=== PATIENT | female | born 1945 | race Caucasian/White ===

== ENCOUNTER 2017-08-18 16:06 | Observation (INO) | payer MEDICARE, OTHER, SELFPAY ==
[2017-08-18] VITALS (14 sets, daily range): BP systolic 132–187; BP diastolic 86–117; PULSE 72–117; RESP 16–22; TEMP 36.8–36.9; O2SAT 93–96; BMI 40.8; BMI 40.2
--- NOTE | 2017-08-18 16:16 | EKG12_ITS ---
Test Reason : PALPS Blood Pressure : / mmHG Vent. Rate : 118 BPM Atrial Rate : 131 BPM P-R Int : 000 ms QRS Dur : 076 ms QT Int : 346 ms P-R-T Axes : 000 -44 001 degrees QTc Int : 484 ms Atrial fibrillation Left axis deviation Abnormal ECG Confirmed by JACK SINHA, CLARITZA ([id number]), medical transcription editor PATRICIA THAPA ([id number]) on 08/22/2017 2:50:50 PM Referred By: DESMOND Confirmed By:CLARITZA SANTIAGO MD
--- NOTE | 2017-08-18 16:18 | RAD_ITS ---
STUDY: X-RAY CHEST REASON FOR EXAM: Female, 72 years old. Palpitations TECHNIQUE: Single frontal view of the chest. COMPARISON: December 31, 2011 FINDINGS: The lungs are clear and expanded. There is no demonstrated pleural abnormality. Normal size heart. Normal mediastinum and maye. Normal visualized pulmonary arteries. Normal visualized aortic arch and descending thoracic aorta. Normal visualized thoracic spine. Normal visualized ribs, clavicles, and shoulders. There is no demonstrated abnormality of the visualized soft tissue structures of the upper abdomen. RAD/Chest 1 View (Portable) IMPRESSION: Normal x-ray examination of the chest. Electronically Signed: Jaleel Duval MD at 17:30 EDT , Service support ,
--- NOTE | 2017-08-18 16:29 | ED.DCSUM_ITS ---
- ER Visit Summary Date of Service: 08/18/17 Chief Complaint: Sent from Dr. Duran's office for rapid irregular heartbeat, new onset A. fib History of Present Illness: The patient is a 72 F who is a poor informant. She is minimizing her symptoms presently and her responses are different than what Dr. Duran documented on his H&P that accompanied her. She does admit to palpitations. She states this started yesterday. He states is been intermittent for some time. 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 He also has history of hypertension. She denies history of diabetes even though her A1c is slightly elevated. She states she refused to take pills. She states she has seen Dr. Romero in the past. Last time she saw him was 2003 when she had a stress test. She did not follow-up with him because she was not told specifically that he wanted her to follow-up with him. His pedal edema unless she wears tight socks. She denies orthopnea or PND. She denies fever, chills night sweats. She denies leg pain, swelling discoloration. She has no history of PE or DVT. She denies hematemesis, melena hematochezia. She denies any ocular, visual or auditory symptoms. She denies chest pain, tightness or heaviness. She denies any discomfort in her neck, jaw or extremities. She denies any back discomfort. Please read written note for complete detail Physical Examination: Blood pressure is 187/111. Heart rate is 117. Head is atraumatic normocephalic. Pupils are equal round reactive. Extraocular muscles are intact. TMs are pearly white with landmarks noted. Nares patent with no drainage. Posterior pharynx without erythema or exudate. Uvula is midline. There is no dysphonia or dysphasia. Trachea is midline. There is no stridor with auscultation of the neck. Heart is irregularly irregular and rapid. Lungs reveal no wheezes rales rhonchi. Abdomen is soft flabby nontender. There is no palpable semester down bruit. There is 1+ edema the lower extremity. DP PT pulses palpable. Neuro exam is nonfocal. Test Results: EEG reveals atrial fibrillation with a left axis. Rate is 118. Portable chest x-ray is limited secondary to limited inspiratory volume. There is no obvious infiltrate or evidence of CHF. Cardiac silhouette is normal and there is no evidence of cardiomegaly. CBC is unremarkable. TSH is normal. Troponin is less than 0.015. Electro panels unremarkable. Emergency Department Course and Treatment: Patient was placed on a monitor. IV was established. Will receive 1 mg/kg of Lovenox and patient was administered 10 mg of Cardizem IV push and placed on a Cardizem drip. EKG, chest x-ray and appropriate blood work was ordered including TSH. Before he was notified the patient was here and plan was to treat with Cardizem and that she would be admitted with a consult to him. Treatment Plan: Case was discussed with Dr. Romero. Patient's been informed of her results. She has been informed that she will require admission for further testing. At the present time she is agreeable to stay. Disposition: PCU Impression: 1. A. fib with RVR new onset/diagnosis 2. Accelerated hypertension in patient with hypertension 3. History rheumatic fever/heart disease This note was generated with [employer] dictation software. It may contain incorrect words, spelling, and punctuation that were not noted in review of the chart prior to signing ED Disposition - Plan for ED Patient: Chief Complaint: Palpitations Referrals: Chip Santos [Primary Care Provider] -
[2017-08-18] MEDS: dilTIAZem 25 MG/5 ML Vial 10 MG IV BOLUS (16:33)
[2017-08-18 16:53] LABS: Hematocrit 46.1 % (37-47); Hemoglobin 14.9 g/dl (12.0-15.0); Mean Corp Hgb Conc 32.3 g/gl (32-36); Mean Corpuscular Hgb 30.5 pg (27.0-32.0); Mean Corpuscular Volume 94.3 fL (81-99); Mean Platelet Vol. 9.9 fl (6.2-12.0); Platelet Count 264 K/mm3 (150-450); RBC Distribution Width CV 13.2 % (11.6-14.6); RBC Distribution Width SD 45.5 fl (35.1-43.9); Red Blood Count 4.89 M/mm3 (4.2-5.4); White Blood Count 5.8 K/mm3 (4.4-11.0)
[2017-08-18] MEDS: Enoxaparin 100 MG/ML Syringe SC (16:55)
[2017-08-18 16:56] LABS: Scan Indicated on CBC? Y/N NO
[2017-08-18 17:13] LABS: Anion Gap 7 (5-15); BUN 9 mg/dL (7-18); Calcium,Total 8.6 mg/dL (8.5-10.1); Chloride 109 mmol/L (98-107); Creatinine, Serum 0.82 mg/dL (0.55-1.02); EST Glomerular Filtration Rate 73 mL/min (>60); Est Glom Filt Rate - Afr Amer 88 mL/min (>60); Estimated Creatinine Clearance 48.33 ml/min; Glucose 137 mg/dL (74-106); Potassium 4.3 mmol/L (3.5-5.1); Sodium Level 144 mmol/L (136-145); Thyroid Stim Hormone (TSH) 2.32 uIU/mL (0.358-3.74)
--- NOTE | 2017-08-18 18:14 | PCM.HP.STD ---
<Blossom Roldan - Last Filed: 08/18/17 18:26> Problem List (1) Atrial fibrillation Status: Acute (2) Hypertension Status: Chronic History of Present Illness Date of Admission: 08/18/17 Chief Complaint: palpitations The patient is a 72 year old F who who presents to the emergency room from primary care physician office due to increased heart rate and atrial fibrillation. Patient states she was sitting in her chair at home last evening when she noticed her heart pounding which lasted less than 15 minutes. She stated at that time her fitbit showed her heart rate ranging from 80-115. Patient states she has had palpitations in the past which have lasted on a short time. She has never sought medical attention for this before. She denies shortness of breath, chest pain, dizziness. States she feels well. 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 She states she did have a stress test in approximately [address] Romero for high blood pressure. No other cardiac history. She does note a history of rheumatic fever. She denies previous echocardiogram. Her other past medical history is significant for hypertension. She denies other chronic medical history. She states her recent hemoglobin A1c was 6.1% and is watching her diet. She states she has not a pill person and does not wish to be on many medications. Past Medical History Past Medical History (Chronic Problems): Chronic Problems Hypertension (Chronic) Allergies azithromycin Allergy (Verified 08/18/17 16:08) Angioedema Home Medications: Ambulatory Orders Medication Instructions Recorded Atenolol [Tenormin] 50 mg PO DAILY 08/18/17 Cholecalciferol (Vitamin D3) 5,000 unit PO DAILY 08/18/17 [Vitamin D3] Multivitamins,Therapeutic 1 tablet PO DAILY 08/18/17 [Multivitamin] [place]-3 Fatty Acids/Fish Oil [Fish 1 each PO DAILY 08/18/17 Oil 1,000 mg Capsule] Surgical History: appendectomy, hysterectomy, tonsillectomy Psychiatric History: No pertinent psych hx Lives: Alone Smoking Status: Never smoker Alcohol: None Drugs: None - *Family History Maternal History Items: Cancer - Breast Paternal History Items: Diabetes, Heart Disease Review of Systems Constitutional: Denies: Chills, Fever, Weight Change HEENT: Denies: Head Aches, Sinus Congestion, Sinus Drainage Cardiovascular: Reports: Palpitations. Denies: Chest Pain, Chest Tightness, Edema, Light Headedness, Syncope Respiratory: Denies: Cough, Shortness of breath at rest, Sputum production Gastrointestinal: Denies: Abdominal Pain, Nausea, Vomiting Genitourinary: Denies: Dysuria Musculoskeletal: Denies: Joint Pain, Joint Tenderness Skin: Denies: Rash, Wounds Neurological: Denies: Numbness, Tingling, Focal weakness Psychiatric: Denies: Anxiety, Depression, Homicidal Ideations, Suicidal Ideations Hematologic/ Lymphatic: Denies: Easy Bruising, Easy Bleeding VTE Information - Inpt Only VTE Present on Admission: No VTE Mechan Device Prophylaxis: Knee High BABS Hose VTE Pharm Prophylaxis ordered?: Yes Patient Problems: Active and Suspected Problems Atrial fibrillation (Acute) - Physical Exam General: Alert, Oriented x3, Cooperative, No apparent distress HEENT: Atraumatic, PERRLA, EOMI, Normocephalic Neck: Supple, No JVD, Negative Carotid Bruits Lungs: Clear to auscultation, Normal air movement Cardiovascular: - - Atrial fibrillation, rate controlled. Abdomen: Bowel Sounds Present, Soft, Non Tender, Non-Distended, Obese Extremities: No clubbing, No cyanosis, No edema, Capillary Refill Less than 3 Seconds Skin: No rashes, No breakdown Musculoskeletal: No Tenderness to Palpation of Joints or Extremities Neurological: Cranial nerves II-XII grossly intact, Neuro grossly intact Psych/Mental Status: Normal Affect, Appropriate Vital Signs Temp Pulse Resp BP Pulse Ox 98.4 F 85 22 H 156/117 H 93 08/18/17 16:07 08/18/17 18:02 08/18/17 18:02 08/18/17 18:02 08/18/17 18:02 Weight: 101.151 kg Body Mass Index (BMI) 40.8 Laboratory Tests Past 24 Hrs 08/18/17 08/18/17 16:35 16:35 WBC 5.8 RBC 4.89 Hgb 14.9 Hct 46.1 MCV 94.3 MCH 30.5 MCHC 32.3 RDW 13.2 RDW Differential 45.5 H Plt Count 264 MPV 9.9 Sodium 144 Potassium 4.3 Chloride 109 H Carbon Dioxide 28.0 Anion Gap 7 BUN 9 Creatinine 0.82 Estim Creat Clear Calc 48.33 Est GFR (MDRD) Af Amer 88 Est GFR (MDRD) Non-Af 73 BUN/Creatinine Ratio 11.0 Glucose 137 H Calcium 8.6 Troponin I < 0.015 TSH 2.32 Assessment/Plan Active and Suspected Problems Atrial fibrillation (Acute) 1. New onset atrial fibrillation-confirmed by EKG on admission. Rate controlled on Cardizem drip. Lovenox initiated in the ED. TSH within normal limits. Check magnesium. Obtain echocardiogram. Serial cardiac enzymes. Consult cardiology. Patient had previous stress test with Dr. Romero in 2003. 2. Hypertension-elevated on admission. Continue home atenolol regimen. Cardizem drip as noted above. As needed hydralazine. 3. History of rheumatic fever 4. Obesity-encouraged diet and lifestyle modifications. DVT [id number] Lovenox subcu This patient was seen by KERRY Lee under the supervision of Dr. Miranda. <Pramod Miranda - Last Filed: 08/18/17 19:09> Problem List (1) Atrial fibrillation Status: Acute (2) Hypertension Status: Chronic History of Present Illness The patient is a 72 year old F presents with intermittent palpitations but was concerned in this time to present to the emergency room. Patient was found to be in atrial fibrillation with RVR. Patient received a Cardizem bolus and then drip. Patient's heart rate has been in the 90s. Patient is never sought attention for these events directly and has never been diagnosed with atrial fibrillation in the past. [] Past Medical History Allergies azithromycin Allergy (Verified 08/18/17 16:08) Angioedema Surgical History: appendectomy, hysterectomy, tonsillectomy Psychiatric History: No pertinent psych hx Lives: Alone Smoking Status: Never smoker Alcohol: None Drugs: None - *Family History Maternal History Items: Cancer Paternal History Items: Diabetes, Heart Disease Review of Systems Constitutional: Denies: Chills, Fever, Weight Change HEENT: Denies: Head Aches, Sinus Congestion, Sinus Drainage Cardiovascular: Reports: Palpitations. Denies: Chest Pain, Chest Tightness, Edema, Light Headedness, Syncope Respiratory: Denies: Cough, Shortness of breath at rest, Sputum production Gastrointestinal: Denies: Abdominal Pain, Nausea, Vomiting Genitourinary: Denies: Dysuria Musculoskeletal: Denies: Joint Pain, Joint Tenderness Skin: Denies: Rash, Wounds Neurological: Denies: Focal weakness, Numbness, Tingling Psychiatric: Denies: Anxiety, Depression, Homicidal Ideations, Suicidal Ideations Hematologic/ Lymphatic: Denies: Easy Bruising, Easy Bleeding VTE Information - Inpt Only VTE Present on Admission: No VTE Mechan Device Prophylaxis: Knee High BABS Hose VTE Pharm Prophylaxis ordered?: Yes - Physical Exam General: Alert, Cooperative, No apparent distress HEENT: Atraumatic, Normocephalic Neck: Supple, Negative Carotid Bruits Lungs: Clear to auscultation, Normal air movement Abdomen: Bowel Sounds Present, Soft, Non Tender, Non-Distended, Obese Extremities: No clubbing, No cyanosis, No edema, Capillary Refill Less than 3 Seconds Skin: No rashes, No breakdown Musculoskeletal: No Tenderness to Palpation of Joints or Extremities Neurological: Cranial nerves II-XII grossly intact, Neuro grossly intact Psych/Mental Status: Normal Affect, Appropriate Vital Signs Temp Pulse Resp BP Pulse Ox 36.9 C 85 22 H 156/117 H 93 08/18/17 16:07 08/18/17 18:02 08/18/17 18:02 08/18/17 18:02 08/18/17 18:02 Weight: 101.151 kg Body Mass Index (BMI) 40.8 Laboratory Tests Past 24 Hrs 08/18/17 08/18/17 16:35 16:35 WBC 5.8 RBC 4.89 Hgb 14.9 Hct 46.1 MCV 94.3 MCH 30.5 MCHC 32.3 RDW 13.2 RDW Differential 45.5 H Plt Count 264 MPV 9.9 Sodium 144 Potassium 4.3 Chloride 109 H Carbon Dioxide 28.0 Anion Gap 7 BUN 9 Creatinine 0.82 Estim Creat Clear Calc 48.33 Est GFR (MDRD) Af Amer 88 Est GFR (MDRD) Non-Af 73 BUN/Creatinine Ratio 11.0 Glucose 137 H Calcium 8.6 Troponin I < 0.015 TSH 2.32 Assessment/Plan Patient seen and examined independently. Agree with the above notes by the nurse practitioner 1. New onset atrial fibrillation Likely this is new onset but I do not feel that it is actually new for her. Patient's had similar symptoms in the past but never sought evaluation for the past. [id number] score is 3 Patient be on Lovenox for now but based on echocardiogram results to be the novel anticoagulants versus Coumadin. Continue with Cardizem drip for now Cardiology be on consultation to help with management of her atrial fibrillation. Code Visit OBSV E&M: [id number] Initial observation care L3
--- NOTE | 2017-08-18 18:25 | HP.PCM_ITS ---
<Blossom Roldan - Last Filed: 08/18/17 18:26> Problem List (1) Atrial fibrillation Status: Acute (2) Hypertension Status: Chronic History of Present Illness Date of Admission: 08/18/17 Chief Complaint: palpitations The patient is a 72 year old F who who presents to the emergency room from primary care physician office due to increased heart rate and atrial fibrillation. Patient states she was sitting in her chair at home last evening when she noticed her heart pounding which lasted less than 15 minutes. She stated at that time her fitbit showed her heart rate ranging from 80-115. Patient states she has had palpitations in the past which have lasted on a short time. She has never sought medical attention for this before. She denies shortness of breath, chest pain, dizziness. States she feels well. 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 She states she did have a stress test in approximately [address] Romero for high blood pressure. No other cardiac history. She does note a history of rheumatic fever. She denies previous echocardiogram. Her other past medical history is significant for hypertension. She denies other chronic medical history. She states her recent hemoglobin A1c was 6.1% and is watching her diet. She states she has not a pill person and does not wish to be on many medications. Past Medical History Past Medical History (Chronic Problems): Chronic Problems Hypertension (Chronic) Allergies azithromycin Allergy (Verified 08/18/17 16:08) Angioedema Home Medications: Ambulatory Orders Medication Instructions Recorded Atenolol [Tenormin] 50 mg PO DAILY 08/18/17 Cholecalciferol (Vitamin D3) 5,000 unit PO DAILY 08/18/17 [Vitamin D3] Multivitamins,Therapeutic 1 tablet PO DAILY 08/18/17 [Multivitamin] [place]-3 Fatty Acids/Fish Oil [Fish 1 each PO DAILY 08/18/17 Oil 1,000 mg Capsule] Surgical History: appendectomy, hysterectomy, tonsillectomy Psychiatric History: No pertinent psych hx Lives: Alone Smoking Status: Never smoker Alcohol: None Drugs: None - *Family History Maternal History Items: Cancer - Breast Paternal History Items: Diabetes, Heart Disease Review of Systems Constitutional: Denies: Chills, Fever, Weight Change HEENT: Denies: Head Aches, Sinus Congestion, Sinus Drainage Cardiovascular: Reports: Palpitations. Denies: Chest Pain, Chest Tightness, Edema, Light Headedness, Syncope Respiratory: Denies: Cough, Shortness of breath at rest, Sputum production Gastrointestinal: Denies: Abdominal Pain, Nausea, Vomiting Genitourinary: Denies: Dysuria Musculoskeletal: Denies: Joint Pain, Joint Tenderness Skin: Denies: Rash, Wounds Neurological: Denies: Numbness, Tingling, Focal weakness Psychiatric: Denies: Anxiety, Depression, Homicidal Ideations, Suicidal Ideations Hematologic/ Lymphatic: Denies: Easy Bruising, Easy Bleeding VTE Information - Inpt Only VTE Present on Admission: No VTE Mechan Device Prophylaxis: Knee High BABS Hose VTE Pharm Prophylaxis ordered?: Yes Patient Problems: Active and Suspected Problems Atrial fibrillation (Acute) - Physical Exam General: Alert, Oriented x3, Cooperative, No apparent distress HEENT: Atraumatic, PERRLA, EOMI, Normocephalic Neck: Supple, No JVD, Negative Carotid Bruits Lungs: Clear to auscultation, Normal air movement Cardiovascular: - - Atrial fibrillation, rate controlled. Abdomen: Bowel Sounds Present, Soft, Non Tender, Non-Distended, Obese Extremities: No clubbing, No cyanosis, No edema, Capillary Refill Less than 3 Seconds Skin: No rashes, No breakdown Musculoskeletal: No Tenderness to Palpation of Joints or Extremities Neurological: Cranial nerves II-XII grossly intact, Neuro grossly intact Psych/Mental Status: Normal Affect, Appropriate Vital Signs Temp Pulse Resp BP Pulse Ox 98.4 F 85 22 H 156/117 H 93 08/18/17 16:07 08/18/17 18:02 08/18/17 18:02 08/18/17 18:02 08/18/17 18:02 Weight: 101.151 kg Body Mass Index (BMI) 40.8 Laboratory Tests Past 24 Hrs 08/18/17 08/18/17 16:35 16:35 WBC 5.8 RBC 4.89 Hgb 14.9 Hct 46.1 MCV 94.3 MCH 30.5 MCHC 32.3 RDW 13.2 RDW Differential 45.5 H Plt Count 264 MPV 9.9 Sodium 144 Potassium 4.3 Chloride 109 H Carbon Dioxide 28.0 Anion Gap 7 BUN 9 Creatinine 0.82 Estim Creat Clear Calc 48.33 Est GFR (MDRD) Af Amer 88 Est GFR (MDRD) Non-Af 73 BUN/Creatinine Ratio 11.0 Glucose 137 H Calcium 8.6 Troponin I < 0.015 TSH 2.32 Assessment/Plan Active and Suspected Problems Atrial fibrillation (Acute) 1. New onset atrial fibrillation-confirmed by EKG on admission. Rate controlled on Cardizem drip. Lovenox initiated in the ED. TSH within normal limits. Check magnesium. Obtain echocardiogram. Serial cardiac enzymes. Consult cardiology. Patient had previous stress test with Dr. Romero in 2003. 2. Hypertension-elevated on admission. Continue home atenolol regimen. Cardizem drip as noted above. As needed hydralazine. 3. History of rheumatic fever 4. Obesity-encouraged diet and lifestyle modifications. DVT [id number] Lovenox subcu This patient was seen by KERRY Lee under the supervision of Dr. Miranda. <Pramod Miranda - Last Filed: 08/18/17 19:09> Problem List (1) Atrial fibrillation Status: Acute (2) Hypertension Status: Chronic History of Present Illness The patient is a 72 year old F presents with intermittent palpitations but was concerned in this time to present to the emergency room. Patient was found to be in atrial fibrillation with RVR. Patient received a Cardizem bolus and then drip. Patient's heart rate has been in the 90s. Patient is never sought attention for these events directly and has never been diagnosed with atrial fibrillation in the past. [] Past Medical History Allergies azithromycin Allergy (Verified 08/18/17 16:08) Angioedema Surgical History: appendectomy, hysterectomy, tonsillectomy Psychiatric History: No pertinent psych hx Lives: Alone Smoking Status: Never smoker Alcohol: None Drugs: None - *Family History Maternal History Items: Cancer Paternal History Items: Diabetes, Heart Disease Review of Systems Constitutional: Denies: Chills, Fever, Weight Change HEENT: Denies: Head Aches, Sinus Congestion, Sinus Drainage Cardiovascular: Reports: Palpitations. Denies: Chest Pain, Chest Tightness, Edema, Light Headedness, Syncope Respiratory: Denies: Cough, Shortness of breath at rest, Sputum production Gastrointestinal: Denies: Abdominal Pain, Nausea, Vomiting Genitourinary: Denies: Dysuria Musculoskeletal: Denies: Joint Pain, Joint Tenderness Skin: Denies: Rash, Wounds Neurological: Denies: Focal weakness, Numbness, Tingling Psychiatric: Denies: Anxiety, Depression, Homicidal Ideations, Suicidal Ideations Hematologic/ Lymphatic: Denies: Easy Bruising, Easy Bleeding VTE Information - Inpt Only VTE Present on Admission: No VTE Mechan Device Prophylaxis: Knee High BABS Hose VTE Pharm Prophylaxis ordered?: Yes - Physical Exam General: Alert, Cooperative, No apparent distress HEENT: Atraumatic, Normocephalic Neck: Supple, Negative Carotid Bruits Lungs: Clear to auscultation, Normal air movement Abdomen: Bowel Sounds Present, Soft, Non Tender, Non-Distended, Obese Extremities: No clubbing, No cyanosis, No edema, Capillary Refill Less than 3 Seconds Skin: No rashes, No breakdown Musculoskeletal: No Tenderness to Palpation of Joints or Extremities Neurological: Cranial nerves II-XII grossly intact, Neuro grossly intact Psych/Mental Status: Normal Affect, Appropriate Vital Signs Temp Pulse Resp BP Pulse Ox 36.9 C 85 22 H 156/117 H 93 08/18/17 16:07 08/18/17 18:02 08/18/17 18:02 08/18/17 18:02 08/18/17 18:02 Weight: 101.151 kg Body Mass Index (BMI) 40.8 Laboratory Tests Past 24 Hrs 08/18/17 08/18/17 16:35 16:35 WBC 5.8 RBC 4.89 Hgb 14.9 Hct 46.1 MCV 94.3 MCH 30.5 MCHC 32.3 RDW 13.2 RDW Differential 45.5 H Plt Count 264 MPV 9.9 Sodium 144 Potassium 4.3 Chloride 109 H Carbon Dioxide 28.0 Anion Gap 7 BUN 9 Creatinine 0.82 Estim Creat Clear Calc 48.33 Est GFR (MDRD) Af Amer 88 Est GFR (MDRD) Non-Af 73 BUN/Creatinine Ratio 11.0 Glucose 137 H Calcium 8.6 Troponin I < 0.015 TSH 2.32 Assessment/Plan Patient seen and examined independently. Agree with the above notes by the nurse practitioner 1. New onset atrial fibrillation * Likely this is new onset but I do not feel that it is actually new for her. Patient's had similar symptoms in the past but never sought evaluation for the past. * [id number] score is 3 * Patient be on Lovenox for now but based on echocardiogram results to be the novel anticoagulants versus Coumadin. * Continue with Cardizem drip for now * Cardiology be on consultation to help with management of her atrial fibrillation. Code Visit OBSV E&M: [id number] Initial observation care L3
--- NOTE | 2017-08-18 19:23 | ECHOD_ITS ---
Reason For Study: AFIB Procedure This was a 2D Doppler, Color Flow transthoracic echocardiogram. The exam was of adequate technical quality. Exam performed portable in patient room. Left Ventricle Normal LV size. Moderate concentric left ventricular hypertrophy. Sigmoid septum. Left ventricular systolic function is normal. The estimated ejection fraction is 65 %. Unable to assess diastolic dysfunction due to arrhythmia. No regional wall motion abnormalities noted. Right Ventricle Normal RV size. Normal systolic function. Atria The left atrium is mildly enlarged. The right atrium is mildly enlarged. No doppler evidence for ASD. Mitral Valve There is no mitral annular calcification. Mild focal mitral valve calcification of the anterior leaflet. Mild (1+) mitral valve insufficiency. Tricuspid Valve Normal tricuspid valve. Mild tricuspid valve insufficiency. Right ventricular systolic pressure estimated to be 51 mmHg. Aortic Valve Trisinus/trileaflet aortic valve. Normal aortic valve. Pulmonic Valve The pulmonic valve is not well visualized. Great Vessels Normal sized aortic root. Pericardium/Pleural No pericardial effusion. MMode/2D Measurements & Calculations LVIDd: 3.9 cm IVSd: 1.6 cm Ao root diam: 3.3 cm LVIDs: 2.6 cm LVPWd: 1.4 cm RVDd: 3.0 cm FS: 32.7 % LAV(MOD-bp): 71.1 ml EDV(MOD-sp4): 63.0 ml SV(MOD-sp4): 33.7 ml LAV(MOD-bp) Indexed: 35.7 ml/m2 ESV(MOD-sp4): 29.4 ml LAV(MOD-sp2): 81.5 ml EF(MOD-sp4): 53.4 % LAV(MOD-sp4): 51.3 ml LA A4 area: 17.9 cm2 RA A4 area: 20.8 cm2 Doppler Measurements & Calculations Ao V2 max: 121.7 cm/sec LV V1 max: 113.3 cm/sec PA V2 max: 84.7 cm/sec Ao max P.0 mmHg LV V1 max P.2 mmHg TR max baldomero: 345.6 cm/sec TR max P.8 mmHg Interpretation Summary Left ventricular systolic function is normal. The estimated ejection fraction is 65 %. Moderate concentric left ventricular hypertrophy. Sigmoid septum. The left atrium is mildly enlarged. The right atrium is mildly enlarged. Mild focal mitral valve calcification of the anterior leaflet. Mild (1+) mitral valve insufficiency. Mild tricuspid valve insufficiency. Right ventricular systolic pressure estimated to be 51 mmHg. Unable to assess diastolic dysfunction due to arrhythmia. Ordering Physician: Pramod Miranda Referring Physician: RAH ARREOLA Performed By: Cristal Marr RDCS
--- NOTE | 2017-08-18 20:32 | PCM.CONS.C ---
Reason for Consult Date of Consultation: 08/18/17 Reason for Consultation: Irregular heartbeat History of Present Illness: The patient is a 72 year old F previous history of rheumatic heart disease and hypertension who presented to the hospital today after she had seen her primary physician complaining of palpitations and a fast heartbeat. She says that this has been going on for a few days. She has also noted this on her Fitbit. She denies any chest pain or shortness breath paroxysmal nocturnal dyspnea near syncope or syncope her blood pressure however she says has been elevated. Due to the above she presented to the emergency room she was noted to be markedly hypertensive and was noted to have an elevated heart rate. She was started on intravenous Cardizem as well as Lovenox and her overall symptoms have improved. [] Past Medical History Allergies/Adverse Reactions: Allergies azithromycin Allergy (Verified 08/18/17 16:08) Angioedema Home Medications: Ambulatory Orders Medication Instructions Recorded Atenolol [Tenormin] 50 mg PO DAILY 08/18/17 Cholecalciferol (Vitamin D3) 5,000 unit PO DAILY 08/18/17 [Vitamin D3] Multivitamins,Therapeutic 1 tablet PO DAILY 08/18/17 [Multivitamin] [place]-3 Fatty Acids/Fish Oil [Fish 1 each PO DAILY 08/18/17 Oil 1,000 mg Capsule] Past Medical History (Chronic Problems): Chronic Problems Hypertension (Chronic) Surgical History: appendectomy, hysterectomy, tonsillectomy Psychiatric History: No pertinent psych hx - *Family History Maternal History Items: Cancer Paternal History Items: Diabetes, Heart Disease Lives: Alone Smoking Status: Never smoker Alcohol: None Drugs: None Review of Systems - Review of Systems General: Denies: Fever, Night Sweats, Fatigue Cardiovascular: Reports: Palpitations. Denies: Chest Discomfort, Shortness of Breath, Orthopnea, PND, Peripheral Edema, Lightheadedness, Dizziness, Near Syncope, Syncope Respiratory: Denies: Cough, Sputum Production, Hemoptysis Gastrointestinal: Denies: Hematemesis, Hematochezia, Melena Genitourinary: Denies: Dysuria, Hematuria Skin: Denies: Rash Neurological: Denies: Dizziness Subjectve: Pleasant lady in no apparent distress Objective: Vital Signs Temp Pulse Resp BP Pulse Ox 98.3 F 90 18 150/104 H 95 08/18/17 19:52 08/18/17 19:52 08/18/17 19:52 08/18/17 19:52 08/18/17 19:52 Oxygen Delivery Method Room Air Weight: 220 lb 0.341 oz Body Mass Index (BMI) 40.2 General: Awake, Alert, Oriented x 3 HEENT: PERRL, EOMI, Sclera Non Icteric Neck: Supple, Good ROM, No Lymph Node Enlargement Lungs: Clear to auscultation Cardiovascular: Irregular Rhythm, Normal S1, Normal S2, No Murmurs, No Rubs, No Gallops Vascular: No Carotid Bruits, Normal Femoral Pulses, Normal Radial Pulses, Normal Dorsalis Pedal Pulse, Normal Posterior Tibial Pulses Abdomen: Bowel Sounds Present, Soft, Non Tender, No HSM, No Organomegaly Extremities: No Cyanosis, No Clubbing, No edema Neurological: No Focal Motor or Sensory Deficit Rhythm: EKG: Atrial fibrillation with rapid ventricular response rate Assessment/Plan 1. Atrial fibrillation with rapid ventricular response rate. The duration and etiology of the above is unclear but rheumatic heart disease needs to be considered as a possibility. My recommendation at this time would be to start her on apixaban 5 mg twice a day as well as intravenous Cardizem. If her heart rate is better controlled by the morning atenolol can be continued as 50 mg twice daily and then she should be considered for a cardioversion. She tells me that she is getting ready to go on a trip during the second week of September and would prefer to have this done soon. Further recommendations be made depending on the results of the echocardiogram. 2. Hypertension Her pressure is uncontrolled at this time and we will adjust her medications appropriately with increasing her beta-jarod she may or may not need the addition of an REINALDO inhibitor. Thank you for allowing me to participate in the care of your patient. Please don't hesitate to call if any issues arise
[2017-08-18] MEDS: APIXABAN 5 MG TABLET PO (22:25)
[2017-08-19] VITALS (15 sets, daily range): BP systolic 110–137; BP diastolic 70–107; PULSE 62–92; RESP 15–22; TEMP 36.6; O2SAT 91–99
[2017-08-19 03:32] LABS: Thyroid Stim Hormone (TSH) 2.96 uIU/mL (0.358-3.74)
[2017-08-19] MEDS: Acetaminophen 325 MG Tablet 650 MG PO (03:55)
--- NOTE | 2017-08-19 08:52 | PCM.PN.CARD ---
Subjectve: The patient was seen and evaluated. Appears to be doing well this morning. No complaints. Objective: Vital Signs Temp Pulse Resp BP Pulse Ox 97.9 F 63 17 126/73 H 95 08/19/17 07:00 08/19/17 07:13 08/19/17 07:00 08/19/17 07:00 08/19/17 07:00 Oxygen Flow Rate (L/min) 2 Oxygen Delivery Method Room Air Weight: 220 lb 0.341 oz Body Mass Index (BMI) 40.2 Intake and Output for Last 24 Hours 08/17/17 08/18/17 08/19/17 23:59 23:59 23:59 Intake Total 479 / 479 Balance 479 / 479 General: Awake, Alert, Oriented x 3 HEENT: PERRL, EOMI, Sclera Non Icteric Neck: Supple, Good ROM, No Lymph Node Enlargement Lungs: Clear to auscultation Cardiovascular: Irregular Rhythm, Normal S1, Normal S2, No Murmurs, No Rubs, No Gallops Vascular: No Carotid Bruits, Normal Femoral Pulses, Normal Radial Pulses, Normal Dorsalis Pedal Pulse, Normal Posterior Tibial Pulses Abdomen: Bowel Sounds Present, Soft, Non Tender, No HSM, No Organomegaly Extremities: No Cyanosis, No Clubbing, No edema Neurological: No Focal Motor or Sensory Deficit 08/18/17 20:47: Troponin I < 0.015 08/18/17 22:55: Troponin I < 0.015 08/19/17 02:28: Troponin I < 0.015 Rhythm: EKG: ECHO: Stress Test: Cardiac Cath: PCI: CT Surgery: Holter monitor: EPS: PPM: CXR: Chest CT Scan: Medical Necessity - Tobacco Use Smoking Status: Never smoker Assessment/Plan 1. Atrial fibrillation with rapid ventricular response rate. The duration and etiology of the above is unclear but rheumatic heart disease needs to be considered as a possibility. My recommendation at this time would be to start her on apixaban 5 mg twice a day as well as intravenous Cardizem. If her heart rate is better controlled by the morning atenolol can be continued as 100 mg daily and then she should be considered for a cardioversion. She tells me that she is getting ready to go on a trip during the second week of September and would prefer to have this done soon. Further recommendations be made depending on the results of the echocardiogram. The intravenous Cardizem will be held at noon and if her heart rate is better by early afternoon she can be discharged and will be scheduled for an outpatient KRYSTAL guided cardioversion. 2. Hypertension Her pressure is uncontrolled at this time and we will adjust her medications appropriately with increasing her beta-jarod she may or may not need the addition of an RENIALDO inhibitor. Thank you for allowing me to participate in the care of your patient. Please don't hesitate to call if any issues arise
[2017-08-19] MEDS: Omega-3 Acid Ethyl Esters 1 GM Capsule PO (10:00)
[2017-08-19] MEDS: APIXABAN 5 MG TABLET PO (10:00)
[2017-08-19] MEDS: Atenolol 100 MG Tablet PO (10:00)
[2017-08-19] MEDS: Aspirin 81 MG TAB.CHEW PO (10:00)
[2017-08-19] MEDS: Multivitamins,Therapeutic Tablet 1 TABLET PO (10:00)
--- NOTE | 2017-08-19 11:26 | PCM.DC ---
- Discharge Diagnoses Current Active Problems: Current Active and Chronic Problems Atrial fibrillation (Acute) Hypertension (Chronic) You will use the following diet at home:: Cardiac Discharge Activity: Return to Normal Activity Call your doctor if you observe: Shortness of breath, Dizziness, Chest pain, Increased palpitations (irregular heartbeat) Allergies/Adverse Reactions: Allergies azithromycin Allergy (Verified 08/18/17 16:08) Angioedema Medications to take at Discharge Cholecalciferol (Vitamin D3) [Vitamin D3] 5,000 unit PO DAILY 08/18/17 Multivitamins,Therapeutic [Multivitamin] 1 tablet PO DAILY 08/18/17 [place]-3 Fatty Acids/Fish Oil [Fish Oil 1,000 mg Capsule] 1 each PO DAILY 08/18/17 Apixaban [Eliquis] 5 mg PO BID #60 tab 08/19/17 Atenolol [Tenormin (beta jarod)] 100 mg PO DAILY #30 tab 08/19/17 The following prescriptions were given: Atenolol [Tenormin (beta jarod)] 100 mg PO DAILY #30 tab Apixaban [Eliquis] 5 mg PO BID #60 tab Primary Care Physician: Chip Santos [Primary Care Provider] - Please follow up with your Primary Care Physician in: 1 Week Please Follow Up With: Inocente Romero MD When: Call office for scheduled time for cardioversion, tentatively Friday, 08/25 Proposed Discharge Date: 08/19/17
--- NOTE | 2017-08-19 11:28 | PCM.DC.SUM ---
<Blossom Roldan - Last Filed: 08/19/17 11:43> Discharge Date and Diagnosis Date of Admission: 08/18/17 Date of Discharge: 08/19/17 - Primary Discharge Diagnosis Active and Suspected Problems 1. New onset atrial fibrillation - Secondary Discharge Diagnosis Chronic Problems Hypertension (Chronic) History of rheumatic fever Obesity Hospital Course and Treatment Imaging Results: Diagnostic Data Chest X-Ray 08/18/17 16:18 IMPRESSION: Normal x-ray examination of the chest. Electronically Signed: Jaleel Duval MD at 17:30 EDT , Service support , Dr. Romero- Cardiology Operations: None Procedures: 2-D Echocardiogram Summary of Care Provided: Patient is a 72-year-old female admitted 08/18/2017 due to palpitations. She was sent by primary care physician office due to increased heart rate in atrial fibrillation. Atrial fibrillation confirmed and the ER. Patient was placed on Cardizem drip. She denies history of atrial fibrillation. Denies chest pain, shortness of breath. Patient had [place] stress [place] [address] Romero consulted during admission. Patient was placed on Eliquis 5 mg twice daily. Her heart rate is controlled, remains atrial fibrillation. Her home atenolol dose will be increased to 100 mg daily. She will follow-up with Dr. Romero as outpatient for cardioversion. Patient has a history of hypertension and history of rheumatic fever. Denies other past medical history. TSH within normal limits. Troponin negative. Echocardiogram result pending and were reviewed prior to discharge. General: Alert, Oriented x3, Cooperative, No apparent distress HEENT: Atraumatic, PERRLA, EOMI, Normocephalic Neck: Supple, No JVD, Negative Carotid Bruits Lungs: Clear to auscultation, Normal air movement Cardiovascular: - - Atrial fibrillation, rate controlled. Abdomen: Bowel Sounds Present, Soft, Non Tender, Non-Distended, Obese Extremities: No clubbing, No cyanosis, No edema, Capillary Refill Less than 3 Seconds Skin: No rashes, No breakdown Musculoskeletal: No Tenderness to Palpation of Joints or Extremities Neurological: Cranial nerves II-XII grossly intact, Neuro grossly intact Psych/Mental Status: Normal Affect, Appropriate Patient seen and examined prior to discharge. Difficult assessment as noted above. Patient is stable for discharge home with further follow-up with cardiology and primary care physician. This patient was seen by KERRY Lee under the supervision of Dr. De La Cruz. Discharge Diet: Low fat/ Low Cholesterol Discharge Activity: Return to Normal Activity Call your doctor if you observe: Shortness of breath, Dizziness, Chest pain, Increased palpitations (irregular heartbeat) Home Medications: Medications to take at Discharge Cholecalciferol (Vitamin D3) [Vitamin D3] 5,000 unit PO DAILY 08/18/17 Multivitamins,Therapeutic [Multivitamin] 1 tablet PO DAILY 08/18/17 [place]-3 Fatty Acids/Fish Oil [Fish Oil 1,000 mg Capsule] 1 each PO DAILY 08/18/17 Apixaban [Eliquis] 5 mg PO BID #60 tab 08/19/17 Atenolol [Tenormin (beta jarod)] 100 mg PO DAILY #30 tab 08/19/17 Following Prescrptions Were Given to Patient: Atenolol [Tenormin (beta jarod)] 100 mg PO DAILY #30 tab Apixaban [Eliquis] 5 mg PO BID #60 tab Primary Care Physician: Chip Santos [Primary Care Provider] - Please follow up with your Primary Care Physician in: 1 Week Please Follow Up With: Inocente Romero MD When: Call office for scheduled time for cardioversion, tentatively Friday, 08/25 Disposition: Home Minutes spent on discharge:: 35 Patient Condition:: Stable Medical Necessity - Tobacco Use Smoking Status: Never smoker Meaningful Use Info Meaningful Use Diagnoses (Choose all that apply): None applicable <Shannon De La Cruz - Last Filed: 08/19/17 11:48> Discharge Date and Diagnosis - Secondary Discharge Diagnosis Chronic Problems Hypertension (Chronic) Hospital Course and Treatment Summary of Care Provided: The patient is a 72 year old F [] Code Visit Inpatient E&M: 11572 Disch Hosp
--- NOTE | 2017-08-19 11:43 | DS.PCM_ITS ---
<Blossom Roldan - Last Filed: 08/19/17 11:43> Discharge Date and Diagnosis Date of Admission: 08/18/17 Date of Discharge: 08/19/17 - Primary Discharge Diagnosis Active and Suspected Problems 1. New onset atrial fibrillation - Secondary Discharge Diagnosis Chronic Problems Hypertension (Chronic) History of rheumatic fever Obesity Hospital Course and Treatment Imaging Results: Diagnostic Data Chest X-Ray 08/18/17 16:18 IMPRESSION: Normal x-ray examination of the chest. Electronically Signed: Jaleel Duval MD at 17:30 EDT , Service support , Dr. Romero- Cardiology Operations: None Procedures: 2-D Echocardiogram Summary of Care Provided: Patient is a 72-year-old female admitted 08/18/2017 due to palpitations. She was sent by primary care physician office due to increased heart rate in atrial fibrillation. Atrial fibrillation confirmed and the ER. Patient was placed on Cardizem drip. She denies history of atrial fibrillation. Denies chest pain, shortness of breath. Patient had a stress test [place] [address] Romero consulted during admission. Patient was placed on Eliquis 5 mg twice daily. Her heart rate is controlled, remains atrial fibrillation. Her home atenolol dose will be increased to 100 mg daily. She will follow-up with Dr. Romero as outpatient for cardioversion. Patient has a history of hypertension and history of rheumatic fever. Denies other past medical history. TSH within normal limits. Troponin negative. Echocardiogram result pending and were reviewed prior to discharge. General: Alert, Oriented x3, Cooperative, No apparent distress HEENT: Atraumatic, PERRLA, EOMI, Normocephalic Neck: Supple, No JVD, Negative Carotid Bruits Lungs: Clear to auscultation, Normal air movement Cardiovascular: - - Atrial fibrillation, rate controlled. Abdomen: Bowel Sounds Present, Soft, Non Tender, Non-Distended, Obese Extremities: No clubbing, No cyanosis, No edema, Capillary Refill Less than 3 Seconds Skin: No rashes, No breakdown Musculoskeletal: No Tenderness to Palpation of Joints or Extremities Neurological: Cranial nerves II-XII grossly intact, Neuro grossly intact Psych/Mental Status: Normal Affect, Appropriate Patient seen and examined prior to discharge. Difficult assessment as noted above. Patient is stable for discharge home with further follow-up with cardiology and primary care physician. This patient was seen by KERRY Lee under the supervision of Dr. De La Cruz. Discharge Diet: Low fat/ Low Cholesterol Discharge Activity: Return to Normal Activity Call your doctor if you observe: Shortness of breath, Dizziness, Chest pain, Increased palpitations (irregular heartbeat) Home Medications: Medications to take at Discharge Cholecalciferol (Vitamin D3) [Vitamin D3] 5,000 unit PO DAILY 08/18/17 Multivitamins,Therapeutic [Multivitamin] 1 tablet PO DAILY 08/18/17 [place]-3 Fatty Acids/Fish Oil [Fish Oil 1,000 mg Capsule] 1 each PO DAILY Apixaban [Eliquis] 5 mg PO BID #60 tab 08/19/17 Atenolol [Tenormin (beta jarod)] 100 mg PO DAILY #30 tab 08/19/17 Following Prescrptions Were Given to Patient: Atenolol [Tenormin (beta jarod)] 100 mg PO DAILY #30 tab Apixaban [Eliquis] 5 mg PO BID #60 tab Primary Care Physician: Chip Santos [Primary Care Provider] - Please follow up with your Primary Care Physician in: 1 Week Please Follow Up With: Inocente Romero MD When: Call office for scheduled time for cardioversion, tentatively Friday, 08/25 Disposition: Home Minutes spent on discharge:: 35 Patient Condition:: Stable Medical Necessity - Tobacco Use Smoking Status: Never smoker Meaningful Use Info Meaningful Use Diagnoses (Choose all that apply): None applicable <Shannon De La Cruz - Last Filed: 08/19/17 11:48> Discharge Date and Diagnosis - Secondary Discharge Diagnosis Chronic Problems Hypertension (Chronic) Hospital Course and Treatment Summary of Care Provided: The patient is a 72 year old F [] Code Visit Inpatient E&M: 50962 Disch Hosp
--- NOTE | 2017-08-19 12:50 | CHAPLAIN ---
Type of Pastoral Visit _x__ Initial Visit ___ Follow-up Visit ___ On-call Visit ___ General Patient Visit ___ Spiritual Assessment ___ Family Conference ___ Bereavement ___ Rapid Response ___ Code Blue ___ Other (describe below) Pastoral Care Referral From _x__ Patient ___ Family ___ Nurse ___ Physician ___ Fur Trimmer ___ Brown Sourer ___ Other (describe below) Sacrament/Intervention ___ Active listening ___ Anointing ___ Orthodoxy ___ Bereavement ___ Communion ___ Telma exploration ___ ___ Life review ___ Prayer ___ Reconciliation ___ Sacrament of Sick _x__ Supportive presence ___ Wedding ___ Other (describe below) Pastoral Comments patient says she is waiting to be discharged and does not need anything else at this time
--- NOTE | 2017-08-19 13:12 | CASEMGMT ---
Per Heather CLUTCH OPERATOR, the pt will be placed on Eliquis at discharge. Script e-scribed to [facility] at this time. Per tech at [facility], the pt's initial cost will be $242 but she states that $195 of that is deductible. Pt updated on all at this time and voices understanding. Pt provided with 30 day free trial offer card at this time with instruction and voices understanding. Pt aware to f/u with PCP/cardiology within the next couple weeks to advised them of cost, voices understanding. Melani ROLDAN CM
== END 2017-08-19 11:27 | disposition home or self-care (01) ==
LOC: ED 16:38 → PCU 19:07
PROVIDERS: Emergency Provider Emergency Medicine; Family Provider Family Medicine; Visit Provider Internal Medicine
DX: I48.91 Unspecified atrial fibrillation (principal); I10 Essential (primary) hypertension; E66.9 Obesity, unspecified; Z68.41 Body mass index [BMI] 40.0-44.9, adult; Z71.3 Dietary counseling and surveillance; Z79.899 Other long term (current) drug therapy
CPT/HCPCS: 36415; 71045; 80048; 84443; 84484; 85027; 93005; 93306; 96365; 96366; 96372; 96376; 99283; A4216

== ENCOUNTER → 2017-08-25 08:50 | Outpatient (CLI) | payer MEDICARE, OTHER, SELFPAY ==
--- NOTE | 2017-08-25 08:52 | ECHOTEE_ITS ---
Reason For Study: AFIB/FLUTTER Medication KRYSTAL probe passed with minimal difficulty. No complications were noted. Cetacaine Topical [place] given X3 orally. Versed 1 mg given slow IVP. Fentanyl 50 mcg given slow IVP. Performed a rapid injection of agitated mix of 9 cc saline and 1cc air to assess for atrial septal defect. Left Ventricle Normal LV size. Left ventricular systolic function is normal. The estimated ejection fraction is 65 %. No regional wall motion abnormalities noted. Right Ventricle Normal RV size. Normal systolic function. The right ventricular wall motion is normal. Atria Normal atrial septum. The left atrium is mildly enlarged. No thrombus is detected in the left atrial appendage. Normal right atrium. Probable chiari network. Mitral Valve Normal mitral valve. Mild (1+) eccentric mitral valve insufficiency. Tricuspid Valve Normal tricuspid valve. Aortic Valve Normal aortic valve. Trisinus/trileaflet aortic valve. Pulmonic Valve Normal pulmonic valve. Vessels Normal aortic root. Normal arch. The pulmonary artery is normal size. Pericardium No pericardial effusion. Interpretation Summary Normal LV size. Left ventricular systolic function is normal. The estimated ejection fraction is 65 %. No thrombus is detected in the left atrial appendage. Ordering Physician: Inocente Romero Referring Physician: Chip Santos Performed By: Batsheva Rascon, RDCS, RVT
--- NOTE | 2017-08-25 12:19 | PCM.OP.BLANK ---
Operative Report Date of Procedure: 08/25/17 CONSCIOUS SEDATION REPORT DATE OF SERVICE: August 25, 2017 BRIEF HISTORY OF PRESENT ILLNESS: The patient is a 72-year-old female who presented to [facility] for an elective outpatient cardioversion due to underlying atrial fibrillation. The patient's last known ejection fraction was 65%. The patient denies any previous anesthetic complications. She denies a history of obstructive sleep apnea, COPD or asthma. She denies any recent constitutional complaints such as fevers, chills, nausea or vomiting. PHYSICAL EXAMINATION: VITAL SIGNS: Reviewed and were acceptable. GENERAL: The patient is a female, in no apparent distress, speaking in full sentences. HEENT: Normocephalic, atraumatic. Mucous membranes are moist and pink. Good mouth opening noted. Trachea is midline. Good neck mobility. CHEST: S1, S2 irregularly irregular. No murmurs, rubs or gallops were noted. LUNGS: Clear to auscultation bilaterally without appreciable wheezes, rales or rhonchi. ABDOMEN: Soft, nontender, nondistended. Positive bowel sounds. EXTREMITIES: There is no clubbing, cyanosis or edema. ASA Class: II DESCRIPTION OF PROCEDURE: After confirmation of informed consent, the patient's anesthesia plan was reviewed in detail. Propofol was chosen. Risks and benefits were reviewed and the patient agreed to proceed. At 1148, the patient was given 40 mg of propofol. The patient achieved an appropriate level of sedation and was given a 200 joule synchronized cardioversion by Dr. Romero at the bedside. This was successful in achieving normal sinus rhythm. The patient was monitored until 1153, at which time she reached her baseline mental status and function. The patient tolerated the procedure well. COMPLICATIONS: None ESTIMATED BLOOD LOSS: None RECOMMENDATIONS: Okay to recover in usual fashion. Code Visit 9xxxx: Other Procedure See Report - [id number]
--- NOTE | 2017-08-25 12:24 | OP.PCM_ITS ---
Operative Report Date of Procedure: 08/25/17 DC cardioversion. 72-year-old lady with a history of persistent atrial fibrillation. The patient underwent a transvaginal echocardiogram this morning which demonstrated no evidence of left atrial appendage thrombus. Estimated ejection fraction was 65% . The patient was brought into the cardiac catheterization noninvasive lab was seen by Dr. Maher of the critical care division after informed consent was obtained anterior posterior pads were applied. The patient was then administered 40 mg of intravenous propofol and 200 J of DC cardioversion energy were applied with prompt reversal to sinus rhythm. Patient tolerated the procedure well. Conclusion: Successful DC cardioversion to sinus rhythm. Recommendations: Continue anticoagulation with Eliquis 5 mg twice a day Continue beta-jarod.
== END ==
PROVIDERS: Family Provider Family Medicine; Visit Provider Internal Medicine Cardiovascular Disease
DX: I48.1 Persistent atrial fibrillation (principal); I48.92 Unspecified atrial flutter
CPT/HCPCS: 92960; 93005; 93312; 93320; 93325; J7040; A4216

== ENCOUNTER → 2018-05-19 13:14 | Outpatient (CLI) | payer MEDICARE, OTHER, SELFPAY ==
[2018-05-05 09:09] VITALS: BMI 41.5
--- NOTE | 2018-05-19 13:29 | BD_ITS ---
STUDY: DUAL ENERGY X-RAY ABSORPTIOMETRY / DXA REASON FOR EXAM: Female, 73 years old. The patient is postmenopausal. Loss of height. TECHNIQUE: Bone Mineral Density (BMD) measurements of lumbar spine and bilateral hips were obtained. COMPARISON: None. FINDINGS: Lumbar Spine (L1-L4): g/cm2 (1.119) / T-score (-0.4) / Z-score (1.3) Findings are suggestive of normal bone density with a low fracture risk. Left Femur Total: g/cm2 (1.003) / T-score (0.0) / Z-score (1.6) Left Femoral Neck: g/cm2 (0.907) / T-score (-0.9) / Z-score (0.9) Right Femur Total: g/cm2 (1.060) / T-score (0.4) / Z-score (2.1) Right Femoral Neck: g/cm2 (0.935) / T-score (-0.7) / Z-score (1.1) BD/Dexa Bone Density Study IMPRESSION: The patient is considered normal as outlined below according to World [employer] Organization (WHO) criteria with a low fracture risk. Reference Information: The T-score is the number of standard deviations above or below the standard which is normal for young adults at their peak bone mineral density. The World Health Organization (WHO) interprets the T-scores as follows: Above -1 Normal bone density Between -1 and -2.5 Osteopenia Equal to / or below -2.5 Osteoporosis As a practical clinical guideline, osteopenia may be graded as follows: Mild -1 through -1.5 Moderate -1.6 through -2.0 Severe -2.1 through -2.4 The Z-score is the number of standard deviations above or below age-matched controls. A Z-score of less than -1.5 would be considered abnormal. References: 1. NIH Osteoporosis and Related Bone Diseases http://www.osteo.org 2. International Society for Clinical Densitometry http://www.iscd.org 3. National Osteoporosis Foundation http://www.nof.org Electronically Signed: Crescencio Barreto MD at 14:22 EST , Service support ,
== END ==
PROVIDERS: Family Provider Family Medicine
DX: Z78.0 Asymptomatic menopausal state (principal); C50.312 Malignant neoplasm of lower-inner quadrant of left female breast; Z17.0 Estrogen receptor positive status [ER+]
CPT/HCPCS: 77080; 77387; 77412; 77417

== ENCOUNTER 2018-07-11 14:56 | Emergency (ER) | payer MEDICARE, OTHER, SELFPAY ==
[2018-05-05 09:09] VITALS: BMI 41.5
[2018-07-11 14:57] VITALS: BP 194/114; PULSE 115; RESP 18; TEMP 36.1; O2SAT 93; BMI 39.6
--- NOTE | 2018-07-11 16:03 | ED.VISSUMM ---
- ER Visit Summary Date of Service: 07/11/18 Chief Complaint: [] Left sided nosebleed today on Xarelto for A. fib otherwise been healthy History of Present Illness: The patient is a 73 F [] has been in good health on Xarelto for A. fib just suddenly began having left-sided dripping nosebleed no trauma no blowing of the nose no sinus symptoms no bleeding elsewhere no hematemesis hematochezia or melena normal urinary output no skin bruising, was unable to control the symptoms and came in for evaluation she has had nosebleeds in the past but nothing recent she has no history of HEENT nasal conditions Physical Examination: []v's are within normal range afebrile General, no distress resting comfortably HEENT is generally unremarkable, she has a clamp device on her nose the left nostril shows signs of excoriation over the septum there is no signs of bleeding now her right nostril unremarkable there is no bleeding down the back of her throat which is clear The neck is supple no adenopathy Cardiovascular, regular rate and rhythm Lungs, clear bilateral Abdomen, soft nontender Extremities, no clubbing cyanosis or edema, her skin is unremarkable without bruising Neurologic, awake alert answering questions appropriately moving all 4 extremities Test Results: [] Emergency Department Course and Treatment: [] Had a clamp on her for about an hour, we removed the clamp we discussed packing her nose versus having her watched and treated conservatively, she had no further bleeding after applying the clamp she did not wish to have the pack placed she was discharged with a nasal clamp she was asked to hold her Xarelto for 1 day return for change in symptoms and she is given a referral to ENT she will return for further bleeding Treatment Plan: [] Disposition: [] Home stable Impression: [] Left sided nosebleed resolved on Xarelto This note was generated with [employer] dictation software. It may contain incorrect words, spelling, and punctuation that were not noted in review of the chart prior to signing ED Disposition - Plan for ED Patient: Referrals: Chip Santos [Primary Care Provider] -
--- NOTE | 2018-07-11 16:05 | ED.DEP ---
ED Disposition - Plan for ED Patient: Instructions: Nosebleed Referrals: Chip Santos [Primary Care Provider] - Jaleel Pang MD [STAFF PHYSICIAN] -
== END 2018-07-11 16:51 | disposition home or self-care (01) ==
LOC: ED 16:48
PROVIDERS: Emergency Provider Emergency Medicine; Family Provider Family Medicine
DX: R04.0 Epistaxis (principal); I48.91 Unspecified atrial fibrillation; Z79.02 Long term (current) use of antithrombotics/antiplatelets
CPT/HCPCS: 99282

== ENCOUNTER 2018-09-04 15:37 | Inpatient (IN) | payer MEDICARE, OTHER, SELFPAY ==
[2018-05-05 09:09] VITALS: BMI 41.5
[2018-09-04] VITALS (14 sets, daily range): BP systolic 151–175; BP diastolic 98–129; PULSE 101–126; RESP 16–28; TEMP 36.6–37.1; O2SAT 90–97; BMI 41.2; BMI 41.1
--- NOTE | 2018-09-04 15:53 | EKG12_ITS ---
Test Reason : SOB Blood Pressure : / mmHG Vent. Rate : 123 BPM Atrial Rate : 127 BPM P-R Int : 000 ms QRS Dur : 076 ms QT Int : 334 ms P-R-T Axes : 000 -35 008 degrees QTc Int : 478 ms Atrial fibrillation with rapid ventricular response Left axis deviation Abnormal ECG Confirmed by BATSHEVA SINHA, VERNA ([id number]), editor producer PATRICIA THAPA ([id number] on 09/07/2018 1:44:34 PM Referred By: Shannon De La Cruz Confirmed By:VERNA HERMAN MD
--- NOTE | 2018-09-04 15:53 | RAD_ITS ---
STUDY: X-RAY CHEST REASON FOR EXAM: Female, 73 years old. Shortness of breath, tachycardia TECHNIQUE: PA and lateral views of the chest. COMPARISON: 08/18/2017 FINDINGS: Status post left axillary lymph node dissection. The lungs are clear and expanded. Slightly elevated right hemidiaphragm which is unchanged. There is moderate cardiac enlargement. Normal mediastinum and maye. Normal visualized pulmonary arteries. There is atherosclerotic tortuosity of the aortic arch and descending thoracic aorta. Normal visualized thoracic spine. Normal visualized ribs, clavicles, and shoulders. There is no demonstrated abnormality of the visualized soft tissue structures of the upper abdomen. RAD/Chest PA and Lateral IMPRESSION: No active disease. Electronically Signed: Micha Foster MD at 16:52 EDT Tel , Service support ,
--- NOTE | 2018-09-04 15:58 | ED.DCSUM_ITS ---
History of Present Illness Chief Complaint: Shortness of Breath Informant: Patient Onset: Month(s) - Per patient 1 month per daughter 4 months Context: Gradual Onset Timing: Continuous Quality: Shortness of breath Location: Not applicable Current Severity: Mild Maximum Severity: Moderate Worsened by: Minimal activity Relieved by: Nothing Associated Symptoms: No other symptoms per patient Narrative: Patient is an elderly woman who minimizes her symptoms. She is presently on Xarelto for A. fib. She was unaware that her heart rate was rapid. She does complain of shortness of breath, dyspnea on exertion. She denies orthopnea or PND. She denies leg pain, swelling or discoloration. She denies black or maroon stool. She denies GI or symptoms. When asked if she was short of breath getting undressed she denied. To the nurse and I both informed her that her breathing became labored and she does not look well. Prior similar symptoms: Yes Recent Illness/Hospitalization: No - Past Medical History (1) Malignant neoplasm of left breast, estrogen receptor positive Status: Acute (2) Obesity, Class III, BMI 40-49.9 (morbid obesity) Status: Acute (3) Type 2 diabetes mellitus without complication Status: Acute (4) Anticoagulant long-term use Status: Acute (5) Atrial fibrillation Status: Acute (6) Hypertension Status: Chronic Past Medical History - Allergies and Home Meds Allergies/Adverse Reactions: Allergies azithromycin Allergy (Verified 09/04/18 15:42) Angioedema vitamin A [From Aquasol A] Allergy (Verified 09/04/18 15:42) Rash lisinopril Adverse Reaction (Verified 09/04/18 16:18) Other Primary Care Physician: Chip Santos [Primary Care Provider] - Prior records reviewed: Yes Surgical History: appendectomy, hysterectomy, tonsillectomy Lives: Alone Smoking Status: Never smoker Alcohol: None - Family History Maternal Family History: Family History (Last Updated 05/01/18 @ 08:58 by Sonali Tian) Unknown No problems noted. Mother Breast cancer Grandmother Breast cancer Sister Breast cancer Uterine cancer Sister Breast cancer Aunt Breast cancer Daughter Uterine cancer Family History: Reports: Cancer Paternal Family History: Family History (Last Updated 05/01/18 @ 08:58 by Sonali Tian) Unknown No problems noted. Mother Breast cancer Grandmother Breast cancer Sister Breast cancer Uterine cancer Sister Breast cancer Aunt Breast cancer Daughter Uterine cancer Family History: Reports: Diabetes, Heart Disease Review of Systems General: Denies: Chills, Fever, Malaise, Subjective, Sweats, Weight loss Eyes: Denies: Visual changes - bilaterally, Blurred Vision - bilaterally, Diplopia ENT: Denies: Bilateral ear pain, Rhinorrhea, Sore throat Cardiovascular: Denies: Chest pain, Palpitations, Heart racing Respiratory: Reports: Dyspnea, Dyspnea on exertion. Denies: Cough, Sputum, Orthopnea, Paroxysmal nocturnal dyspnea Gastrointestinal: Denies: Abdominal pain, Nausea, Vomiting, Diarrhea, Melena, Hematochezia Genitourinary: Denies: Dysuria, Hematuria, Frequency Musculoskeletal: Denies: Myalgias, Arthralgias, Neck pain, Back pain, Extremity Pain Skin: Denies: Rash, Abrasions, Wounds Neurological: Denies: Headache, Weakness, Numbness Endocrine: Denies: Polyuria, Polydipsia Hematologic: Reports: Easy bruising. Denies: Easy bleeding Physical Exam Vital Signs/Narrative: Vital Signs Temp Pulse Resp BP Pulse Ox 09/04/18 15:37 97.9 F 111 H 24 H 155/117 H 95 Inital Vital Signs reviewed: Yes General: Well nourished, Well developed, Obese, Acute Distress Head: Normocephalic Eyes: Perrl, EOMI. Negative for: Pale conjunctiva, Scleral icterus, - ENT: Moist mucous membranes, No rhinorrhea, TM's clear Neck: Supple, Nontender, No lymphadenopathy, No JVD Cardiovascular: No murmurs, Irregular, Tachycardia Respiratory: CTA bilaterally, Chest nontender, Decreased Air Movement. Negative for: No distress Abdomen: Soft, Nontender, Nondistended, Normal bowel sounds, No masses Back: Nontender, Normal Inspection. Negative for: CVA tenderness Extremities: Nontender, Edema Skin: No rash, Pallor. Negative for: Normal color, Cyanosis, Diaphoresis, Jaundice Neurological: Alert, Oriented x3, Cranial nerves II-XII grossly intact, Normal Strength, Normal Sensation Psychological: - - Flat affect Diagnostic/Tx/Re-eval Chest X-Ray - ED: Read by ED Physician, Normal, Bony Structures, - - Is evidence of CHF with fluid in the fissures. Mediastinum is prominent. Probably secondary to tortuous aorta. Heart is slightly enlarged. Impressions Chest X-Ray 09/04/18 15:53 IMPRESSION: No active disease. Electronically Signed: Micha Foster MD at 16:52 EDT Tel , Service support , 09/04/18 15:53 Chest PA and Lateral [RAD] Stat Laboratory Results 09/04/18 09/04/18 16:07 16:07 WBC 5.9 RBC 3.79 L Hgb 11.2 L Hct 35.9 L MCV 94.7 MCH 29.6 MCHC 31.2 L RDW 14.0 RDW Differential 48.2 H Plt Count 451 H MPV 8.6 Immature Gran % (Auto) 0.200 Neut % (Auto) 66.9 Lymph % (Auto) 22.7 [place] % (Auto) 7.4 Eos % (Auto) 2.5 Baso % (Auto) 0.3 Absolute Neuts (auto) 4.0 Absolute Lymphs (auto) 1.34 Total Counted Not Reportable Sodium 142 Potassium 3.9 Chloride 105 Carbon Dioxide 30.0 Anion Gap 7 BUN 18 Creatinine 0.88 Estim Creat Clear Calc 42.32 Est GFR (MDRD) Af Amer 80 Est GFR (MDRD) Non-Af 66 BUN/Creatinine Ratio 20.4 H Glucose 125 H Calcium 9.3 Troponin I < 0.015 - Rhythm Strip Rhythm Strip: A-fib Rate: 111 Ectopy: None - EKG Initial EKG Interpretation: Atrial Fibrillation - Ventricular rate is 123. Cures duration 76 ms.. [place] to left. - Medical Decision Making With history of breast cancer dyspnea for 1 to 4 months this may represent heart failure, ischemic heart disease, doubt pulmonary embolus, but possible. Need to evaluate for anemia. Will obtain EKG, chest x-ray appropriate blood work to determine etiology of her dyspnea and dyspnea on exertion. Patient's EKG reveals A. fib with RVR. Chest x-ray per my interpretation reveals heart failure. Radiologist states there is no abnormality. Clinically patient is fluid overloaded. She was treated with metoprolol for rate control. She states she is on metoprolol for blood pressure. She also received Lasix and nitroglycerin for diuresis and preload reduction. Patient was reluctant to stay. Dr. Romero was paged. Dr. Asher is linen room houseperson. Patient history and physical was discussed with Dr. Asher. He told it would be difficult to manage her as an outpatient and recommended inpatient treatment. Patient was made aware of this. She is agreeable to stay. The hospitalist was paged. ED Disposition - Plan for ED Patient: Disposition: Acute Care Hospital [facility] Diagnosis: Atrial fibrillation with RVR, CHF exacerbation, Hypertension Referrals: Chip Santos [Primary Care Provider] -
[2018-09-04 16:21] LABS: Absolute Lymphocyte Count 1.34 X10^3/ul (0.83-4.51); Basophil# 0.02 X10^3/uL; Basophil% 0.3 % (0-1); Eosinophil# 0.15 X10^3/uL; Eosinophils% 2.5 % (0-5); Hematocrit 35.9 % (37-47); Hemoglobin 11.2 g/dl (12.0-15.0); Lymphocyte # 1.34 X10^3/ul (4.0); Lymphocyte % 22.7 % (19-41); Mean Corp Hgb Conc 31.2 g/gl (32-36); Mean Corpuscular Hgb 29.6 pg (27.0-32.0); Mean Corpuscular Volume 94.7 fL (81-99); Mean Platelet Vol. 8.6 fl (6.2-12.0); Monocyte# 0.44 X10^3/uL; Monocyte% 7.4 % (0-10); Neutrophil # 3.95 X10^3/uL (2.7-7.7); Neutrophil % 66.9 % (47-70); POSITIVE COUNT NO; POSITIVE DIFFERENTIAL NO; POSITIVE MORPHOLOGY NO; Platelet Count 451 K/mm3 (150-450); RBC Distribution Width SD 48.2 fl (35.1-43.9); Red Blood Count 3.79 M/mm3 (4.2-5.4); White Blood Count 5.9 K/mm3 (4.4-11.0)
[2018-09-04 16:33] LABS: Anion Gap 7 (5-15); BUN 18 mg/dL (7-18); BUN/Creat Ratio 20.4 RATIO (10-20); Calcium,Total 9.3 mg/dL (8.5-10.1); Chloride 105 mmol/L (98-107); Creatinine, Serum 0.88 mg/dL (0.55-1.02); EST Glomerular Filtration Rate 66 mL/min (>60); Est Glom Filt Rate - Afr Amer 80 mL/min (>60); Estimated Creatinine Clearance 42.32 ml/min; Glucose 125 mg/dL (74-106); Potassium 3.9 mmol/L (3.5-5.1); Sodium Level 142 mmol/L (136-145)
[2018-09-04] MEDS: Nitroglycerin Oint 1 INCH PACKET TRANSDERM. (17:14)
[2018-09-04] MEDS: Metoprolol Tartrate 5 MG/5 ML Vial IV (17:14)
[2018-09-04] MEDS: Furosemide 20 MG/2 ML VIAL IV (17:14)
--- NOTE | 2018-09-04 17:29 | HP.PCM_ITS ---
<Oskar Elizabeth - Last Filed: 09/04/18 17:23> Problem List (1) Atrial fibrillation with RVR Status: Acute (2) CHF exacerbation Status: Acute (3) Morbid obesity Status: Chronic (4) Hypertension Status: Chronic (5) Malignant neoplasm of left breast, estrogen receptor positive Status: Chronic History of Present Illness Date of Admission: 09/04/18 Chief Complaint: irregular heart rate The patient is a 73 year old F with pmhx of diastolic CHF and paroxysmal Afib, h x htn, breast cancer s/p resection and radiation last fall at [facility], who presented to the ER from her PCPs office today for abnormal heart rate. The patient states she went to the ortho office this AM to have her shoulder checked and noticed her BP was quite high. She called her PCP who advised she comes to the office at which point she was sent here - she was found to have Afib with RVR. The patient has been more SOB lately, has gained 5 lbs in 1 week, and also has severe LE edema. She cannot lay flat due to dyspnea. She is somewhat dyspneic with conversation even on o2. She is reluctant to stay and minimizes her symptoms. She remains in A fib with RVR after receiving metoprolol in the ER. She denies CP or Palpitations. No dizziness/LH. 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 Migraines G43.909 Osteoarthritis M19.90 Type 2 diabetes mellitus E11.9 left axillary lymph node biopsy 03/27/18 Knee pain, chronic M25.569, G89.29 Allergies azithromycin Allergy (Verified 09/04/18 15:42) Angioedema vitamin A [From Aquasol A] Allergy (Verified 09/04/18 15:42) Rash lisinopril Adverse Reaction (Verified 09/04/18 16:18) Other Home Medications: Ambulatory Orders Medication Instructions Recorded Multivitamins,Therapeutic 1 tablet PO DAILY 08/18/17 [Multivitamin] Rivaroxaban [Xarelto] 20 mg PO DAILY 05/05/18 Atenolol [Tenormin (beta jarod)] 50 mg PO BID 09/04/18 Cholecalciferol (Vitamin D3) 2,000 unit PO DAILY 09/04/18 [Vitamin D3] Tresckow-3 Fatty Acids [Tresckow-3] 2,000 mg PO DAILY 09/04/18 Valsartan [Diovan] 160 mg PO DAILY 09/04/18 Surgical History: Surgical History (Last Reviewed 05/05/18 @ 09:09 by Susan Grimm RN) History of appendectomy Z90.49 History of bilateral knee replacement Z96.653 History of breast biopsy Z98.890 03/27/18 History of lumpectomy of left breast Z98.890 03/27/18 History of tonsillectomy Z90.89 History of tubal ligation Z98.51 Surgical History: appendectomy, hysterectomy, tonsillectomy 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 Mother Breast cancer Grandmother Breast cancer Sister Breast cancer Uterine cancer Sister Breast cancer Aunt Breast cancer Daughter Uterine cancer History Items: Cancer Paternal Family History: Family History (Last Updated 05/01/18 @ 08:58 by Sonali Tian) Unknown No problems noted. Mother Breast cancer Grandmother Breast cancer Sister Breast cancer Uterine cancer Sister Breast cancer Aunt Breast cancer Daughter Uterine cancer History Items: Diabetes, Heart Disease Review of Systems Constitutional: Denies: Chills, Fever, Weight Change HEENT: Denies: Head Aches, Sinus Congestion, Sinus Drainage Cardiovascular: Reports: Edema, Orthopnea. Denies: Chest Pain, Chest Pressure, Chest Tightness, Heaviness, Light Headedness, Palpitations, Paroxysmal Noc. Dyspnea, Syncope Respiratory: Reports: Shortness of Breath, Shortness of breath at rest, Shortness of breath upon exertion. Denies: Cough, Sputum production, Wheezing Gastrointestinal: Denies: Abdominal Pain, Nausea, Vomiting Genitourinary: Denies: Dysuria Musculoskeletal: Denies: Joint Pain, Joint Tenderness Skin: Denies: Rash, Wounds Neurological: Denies: Numbness, Tingling, Focal weakness Psychiatric: Denies: Anxiety, Depression, Homicidal Ideations, Suicidal Ideations Hematologic/ Lymphatic: Denies: Easy Bruising, Easy Bleeding VTE Information - Inpt Only VTE Present on Admission: No VTE Mechan Device Prophylaxis: None VTE Pharm Prophylaxis ordered?: Yes Patient Problems: Active and Suspected Problems (Last Reviewed 05/05/18 @ 09:09 by Susan Grimm RN) Atrial fibrillation with RVR (Acute) CHF exacerbation (Acute) - Physical Exam General: Alert, Oriented x3, Cooperative HEENT: Atraumatic, PERRLA, EOMI, Normocephalic Neck: Supple, No JVD, Negative Carotid Bruits Lungs: Clear to auscultation, Diminished Cardiovascular: Irregular Rate, Tachycardic Abdomen: Bowel Sounds Present, Soft, Non Tender Extremities: Capillary Refill Less than 3 Seconds, Edema - 3+ pitting edema BLE Skin: No rashes, No breakdown Musculoskeletal: No Tenderness to Palpation of Joints or Extremities Neurological: Cranial nerves II-XII grossly intact Psych/Mental Status: Normal Affect, Appropriate, Alert and oriented to time, place, person, mood and affect Vital Signs Temp Pulse Resp BP Pulse Ox 97.9 F 114 H 18 175/122 H 96 09/04/18 15:37 09/04/18 17:14 09/04/18 17:11 09/04/18 17:14 09/04/18 17:11 Oxygen Flow Rate (L/min) 2 Oxygen Delivery Method Nasal Cannula Weight: 218 lb 4.122 oz Body Mass Index (BMI) 41.2 Laboratory Tests Past 24 Hrs 09/04/18 09/04/18 09/04/18 16:07 16:07 16:07 WBC 5.9 RBC 3.79 L Hgb 11.2 L Hct 35.9 L MCV 94.7 MCH 29.6 MCHC 31.2 L RDW 14.0 RDW Differential 48.2 H Plt Count 451 H MPV 8.6 Immature Gran % (Auto) 0.200 Neut % (Auto) 66.9 Lymph % (Auto) 22.7 Ellis % (Auto) 7.4 Eos % (Auto) 2.5 Baso % (Auto) 0.3 Absolute Neuts (auto) 4.0 Absolute Lymphs (auto) 1.34 Total Counted Not Reportable Sodium 142 Potassium 3.9 Chloride 105 Carbon Dioxide 30.0 Anion Gap 7 BUN 18 Creatinine 0.88 Estim Creat Clear Calc 42.32 Est GFR (MDRD) Af Amer 80 Est GFR (MDRD) Non-Af 66 BUN/Creatinine Ratio 20.4 H Glucose 125 H Calcium 9.3 Troponin I < 0.015 B-Natriuretic Peptide Pending Assessment/Plan All Active Problems (Last Reviewed 05/05/18 @ 09:09 by Susan Grimm RN) Atrial fibrillation (Acute) Obesity, Class III, BMI 40-49.9 (morbid obesity) (Acute) Anticoagulant long-term use (Acute) Atrial fibrillation with RVR (Acute) CHF exacerbation (Acute) 1. Afib with RVR - Continue xarelto, metoprolol. Cardizem bolus if rate does not improve. Obtain echo in AM. Maintain on tele. 2. Acute diastolic CHF complicated by moderate pulmonary htn - last echo EF65% with moderate pulmonary htn. Appears volume overloaded. Weight is up, SOB, Orthopnea, and severe LE edema. CXR clear. Diurese with IV lasix. BNP pending. Trop neg. 3. HTN emergency as evidenced by marked HTN with CHF exacerbation - prn hydralazine, continue lasix 4. Morbid obesity - dietary eval. 5. Hx breast cancer, left - s/p radiation and surgery last fall, she does not know the current status of the cancer. Tx at [facility]. 6. Suspect underlying RONALDO - STOP BANG at least 3, pulmonary htn and afib, needs o/p sleep study, possibly overnight trending pulse ox while here. DVT ppx: xarelto DC planning: PTOT. Lives alone This patient was seen by Oskar Elizabeth PA-C under the supervision of Dr. De La Cruz <Shannon De La Cruz - Last Filed: 09/04/18 18:42> Problem List (1) Hypertension Status: Chronic Qualifiers: Hypertension type: essential hypertension Qualified Code(s): I10 - Essential (primary) hypertension (2) Malignant neoplasm of left breast, estrogen receptor positive Status: Chronic Qualifiers: Breast location: 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 Patient sex: female Qualified Code(s): C50.912 - Malignant neoplasm of unspecified site of left female breast; Z17.0 - Estrogen receptor positive status [ER+] (3) Obesity, Class III, BMI 40-49.9 (morbid obesity) Status: Acute (4) Atrial fibrillation with RVR Status: Acute (5) CHF exacerbation Status: Acute Qualifiers: Heart failure type: unspecified Qualified Code(s): I50.9 - Heart failure, unspecified History of Present Illness The patient is a 73 year old F [] Past Medical History Medical History: Medical History (Last Reviewed 05/05/18 @ 09:09 by Susan Grimm, RN) Breast cancer, left C50.912 Epistaxis R04.0 History of hysterectomy Z90.710 1974 Hyperglycemia R73.9 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 Migraines G43.909 Osteoarthritis M19.90 Type 2 diabetes mellitus E11.9 left axillary lymph node biopsy 03/27/18 Knee pain, chronic M25.569, G89.29 Allergies azithromycin Allergy (Verified 09/04/18 15:42) Angioedema vitamin A [From Aquasol A] Allergy (Verified 09/04/18 15:42) Rash lisinopril Adverse Reaction (Verified 09/04/18 16:18) Other Surgical History: Surgical History (Last Reviewed 05/05/18 @ 09:09 by Susan Grimm, JAMAR) History of appendectomy Z90.49 History of bilateral knee replacement Z96.653 History of breast biopsy Z98.890 18 History of lumpectomy of left breast Z98.890 18 History of tonsillectomy Z90.89 History of tubal ligation Z98.51 - *Family History Maternal Family History: Family History (Last Updated 05/01/18 @ 08:58 by Sonali Tian) Unknown No problems noted. Mother Breast cancer Grandmother Breast cancer Sister Breast cancer Uterine cancer Sister Breast cancer Aunt Breast cancer Daughter Uterine cancer Paternal Family History: Family History (Last Updated 05/01/18 @ 08:58 by Sonali Tian) Unknown No problems noted. Mother Breast cancer Grandmother Breast cancer Sister Breast cancer Uterine cancer Sister Breast cancer Aunt Breast cancer Daughter Uterine cancer - Physical Exam Vital Signs Temp Pulse Resp BP Pulse Ox 98.8 F 119 H 16 155/98 H 94 09/04/18 17:58 09/04/18 17:58 09/04/18 17:58 09/04/18 17:58 09/04/18 17:58 Oxygen Flow Rate (L/min) 2 Oxygen Delivery Method Room Air Weight: 98.9 kg Body Mass Index (BMI) 41.1 Laboratory Tests Past 24 Hrs 09/04/18 09/04/18 09/04/18 16:07 16:07 16:07 WBC 5.9 RBC 3.79 L Hgb 11.2 L Hct 35.9 L MCV 94.7 MCH 29.6 MCHC 31.2 L RDW 14.0 RDW Differential 48.2 H Plt Count 451 H MPV 8.6 Immature Gran % (Auto) 0.200 Neut % (Auto) 66.9 Lymph % (Auto) 22.7 Ellis % (Auto) 7.4 Eos % (Auto) 2.5 Baso % (Auto) 0.3 Absolute Neuts (auto) 4.0 Absolute Lymphs (auto) 1.34 Total Counted Not Reportable Sodium 142 Potassium 3.9 Chloride 105 Carbon Dioxide 30.0 Anion Gap 7 BUN 18 Creatinine 0.88 Estim Creat Clear Calc 42.32 Est GFR (MDRD) Af Amer 80 Est GFR (MDRD) Non-Af 66 BUN/Creatinine Ratio 20.4 H Glucose 125 H Calcium 9.3 Troponin I < 0.015 B-Natriuretic Peptide Pending Assessment/Plan This patient was seen in conjunction with BARBI Bobo. I have independently interviewed and examined the patient and reviewed pertinent historical, laboratory, and other data. Please refer to BARBI Bobo note for his patient's presentation, findings, and recommendations. I have reviewed and his note and concur with his documentation CC: Tachycardia, irregular HR - 1 day Shortness of breath - 1 month HPI: 73 y/o female with PMHx of breast CA s/p radiation and surgery, hypertension who comes into the emergency room referred from her primary care's office with abnormal heart rate. She was also found to have elevated blood pressure also. Complains of mild chest discomforts, no associated nausea or vomiting or diaphoresis. She has orthopnea, PND, bilateral leg swelling. Patient attempts to minimize her symptoms. She is reluctant to be admitted but expresses understanding that she needs her symptoms with internal control. PMHX: As above, CAD, Osteoarthritis PSHx: Status post appendectomy, bilateral knee replacement, status post breast biopsy with lumpectomy left breast, status post tonsillectomy, status post tubal ligation FHX: Mother has seizures history of breast cancer, daughter has uterine cancer SHX: Denies any smoking, use of alcohol or drugs Physical Exam: Vitals: Temperature 97.9 F, heart rate 111, blood pressure 155/117, respiratory 24, SPO2 is 95% on 2 L of oxygen Gen: Looks in some discomfort, on intranasal cannula oxygen, not pale, not jaundiced CVS:HS I +II, regular, no murmurs RESP: Diminished at lung bases GI: BS present and normal, soft, nontender, no palpable organs EXT:Bilateral pedal edema +2 Labs: WBC is 5.9, hemoglobin 11.2, platelet count 451, BMP is unremarkable, BNPep is 668, troponin 0 0.015 ASSESSMENT: 1. A. fib with RVR 2. Acute CHF, unknown EF for now 3. Accelerated Hypertension/Hypertensive emergency 4. H/o Breast CA s/p radiation, surgery 5. Suspected RONALDO 6. Morbid obesity, BMI 41.2 Plan: Admit to PCU, monitor on telemetry, 2D echo, trend troponins Cardiology consulted from the ED Continue metoprolol 100 mg p.o. twice daily, Continue on Xarelto Code Visit Inpatient E&M: [id number] Init Hosp L3
--- NOTE | 2018-09-04 17:49 | ECHOD_ITS ---
Reason For Study: DYSPNEA/SOB Procedure This was a 2D Doppler, Color Flow transthoracic echocardiogram. The study was technically difficult. Due to arrhythmia. Exam performed portable in patient room. Left Ventricle Normal LV size. Mild concentric left ventricular hypertrophy. Left ventricular systolic function is normal. The estimated ejection fraction is 55 %. Unable to assess diastolic dysfunction. No regional wall motion abnormalities noted. Right Ventricle Normal RV size. Normal systolic function. Atria The left atrium is moderately enlarged. The right atrium is mildly enlarged. No doppler evidence for ASD. Mitral Valve There is no mitral annular calcification. Mild focal mitral valve calcification of the anterior leaflet. Mild (1+) eccentric mitral valve insufficiency. Tricuspid Valve Normal tricuspid valve. Moderate (2+) eccentric tricuspid valve insufficiency. Right ventricular systolic pressure estimated to be 46 mmHg. Aortic Valve The aortic valve is not well visualized. Pulmonic Valve The pulmonic valve is not well visualized. Great Vessels Normal sized aortic root. Pericardium/Pleural No pericardial effusion. MMode/2D Measurements & Calculations LVIDd: 4.0 cm IVSd: 1.3 cm Ao root diam: 3.2 cm LVIDs: 2.9 cm LVPWd: 1.3 cm RVDd: 3.5 cm FS: 27.4 % LAV(MOD-bp): 86.3 ml LA A4 area: 27.0 cm2 LA dimension(2D): 4.4 cm LAV(MOD-bp) Indexed: 44.0 ml/m2 LAV(MOD-sp2): 74.8 ml LAV(MOD-sp4): 99.4 ml RA A4 area: 16.8 cm2 Doppler Measurements & Calculations MV E max baldomero: 102.2 cm/sec Ao V2 max: 97.2 cm/sec LV V1 max: 66.5 cm/sec Ao max P.8 mmHg LV V1 max P.8 mmHg PA V2 max: 66.2 cm/sec TR max baldomero: 308.5 cm/sec TR max P.3 mmHg Interpretation Summary The study was technically difficult. Left ventricular systolic function is normal. The estimated ejection fraction is 55 %. Mild concentric left ventricular hypertrophy. The left atrium is moderately enlarged. The right atrium is mildly enlarged. Mild focal mitral valve calcification of the anterior leaflet. Mild (1+) eccentric mitral valve insufficiency. Moderate (2+) eccentric tricuspid valve insufficiency. Right ventricular systolic pressure estimated to be 46 mmHg. Unable to assess diastolic dysfunction. Ordering Physician: Shannon De La Cruz Referring Physician: Chip Santos Performed By: Batsheva Rascon, BEV, RVT
[2018-09-04] MEDS: Furosemide 40 MG/4 ML Vial IV (18:43)
[2018-09-04] MEDS: Metoprolol Tartrate 100 MG Tablet PO (18:43)
--- NOTE | 2018-09-04 21:49 | PCM.CONS.C ---
Problem List (1) Atrial fibrillation Status: Acute (2) Hypertension Status: Chronic Qualifiers: Hypertension type: essential hypertension Qualified Code(s): I10 - Essential (primary) hypertension (3) CHF exacerbation Status: Acute Qualifiers: Heart failure type: unspecified Qualified Code(s): I50.9 - Heart failure, unspecified Reason for Consult Date of Consultation: 09/04/18 History of Present Illness: The patient is a 73 year old white female who has previously been evaluated by Inocente Romero MD for cardiovascular concerns including a history of underlying rheumatic heart disease, atrial fibrillation, and hypertension with her last inpatient cardiovascular evaluation appearing to be in on 08-18-17 who has not presented back for outpatient cardiovascular follow-up who now presents for concerns of underlying atrial fibrillation and hypertension exacerbation with concerns of CHF. The patient notes that she has not necessarily since the change in her underlying cardiac rate or rhythm. She states her blood pressure has been elevated as she has been undergoing evaluation care for oncology related issues. She has been more short of breath and dyspneic and has been noticing edema of the lower extremities. She denies any ongoing chest discomfort. She states she does sleep somewhat propped up. There has been no near syncope or syncope. She was subsequently evaluated in the emergency department this day. She was found to be in atrial fibrillation with a rapid ventricular response as well as being markedly hypertensive and thought to be volume overloaded with findings compatible with CHF. She was recommended for further inpatient evaluation and care. She had a baseline troponin I level which was negative. BNP level was reported elevated at 668. A chest x-ray based on preliminary evaluation suggested a poor inspiratory effort, underlying thoracic aortic tortuosity and possible increased pulmonary vascularity. It is noted she had a transthoracic echocardiogram performed on 08-19-17. At that time her left ventricle was thought to be normal with an LVEF of 65% with moderate concentric LVH and mild biatrial enlargement with mild MR/TR and an estimated RV systolic pressure 51 mmHg. She subsequently underwent synchronized biphasic DC cardioversion on 08-25-17 with return to sinus rhythm. She believes in September of last year she was evaluated at the [facility] and underwent a pharmacologic stress nuclear imaging study which to the best of her knowledge was unremarkable. She does not believe she has ever had a diagnostic cardiac catheterization. [] Past Medical History Allergies/Adverse Reactions: Allergies azithromycin Allergy (Verified 09/04/18 15:42) Angioedema vitamin A [From Aquasol A] Allergy (Verified 09/04/18 15:42) Rash lisinopril Adverse Reaction (Verified 09/04/18 16:18) Other Home Medications: Ambulatory Orders Medication Instructions Recorded Multivitamins,Therapeutic 1 tablet PO DAILY 08/18/17 [Multivitamin] Rivaroxaban [Xarelto] 20 mg PO DAILY 05/05/18 Atenolol [Tenormin (beta jarod)] 50 mg PO BID 09/04/18 Cholecalciferol (Vitamin D3) 2,000 unit PO DAILY 09/04/18 [Vitamin D3] Arthur-3 Fatty Acids [Arthur-3] 2,000 mg PO DAILY 09/04/18 Valsartan [Diovan] 160 mg PO DAILY 09/04/18 Past Medical History (Chronic Problems): Chronic Problems (Last Reviewed 05/05/18 @ 09:09 by Susan Grimm RN) Hypertension (Chronic) Malignant neoplasm of left breast, estrogen receptor positive (Chronic) Type 2 diabetes mellitus without complication (Chronic) Morbid obesity (Chronic) Surgical History: appendectomy, hysterectomy, tonsillectomy 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 Mother Breast cancer Grandmother Breast cancer Sister Breast cancer Uterine cancer Sister Breast cancer Aunt Breast cancer Daughter Uterine cancer History Items: Cancer Paternal Family History: Family History (Last Updated 05/01/18 @ 08:58 by Sonali Tian) Unknown No problems noted. Mother Breast cancer Grandmother Breast cancer Sister Breast cancer Uterine cancer Sister Breast cancer Aunt Breast cancer Daughter Uterine cancer History Items: Diabetes, Heart Disease Lives: Alone Smoking Status: Never smoker Alcohol: None Drugs: None Review of Systems - Review of Systems General: Denies: Fever, Night Sweats, Fatigue Cardiovascular: Reports: Shortness of Breath, Orthopnea, Peripheral Edema. Denies: Chest Discomfort, PND, Palpitations, Lightheadedness, Dizziness, Near Syncope, Syncope Respiratory: Reports: Shortness of Breath. Denies: Cough, Sputum Production, Hemoptysis Gastrointestinal: Denies: Hematemesis, Hematochezia, Melena Genitourinary: Denies: Dysuria, Hematuria Skin: Denies: Rash Subjectve: This is a 73-year-old white female who appears to be resting reasonably comfortably at the moment in no acute distress. Objective: Vital Signs Temp Pulse Resp BP Pulse Ox 98.8 F 116 H 16 155/98 H 94 09/04/18 17:58 09/04/18 19:00 09/04/18 17:58 09/04/18 17:58 09/04/18 17:58 Oxygen Flow Rate (L/min) 2 Oxygen Delivery Method Room Air Weight: 218 lb 0.595 oz Body Mass Index (BMI) 41.1 General: Awake, Alert, Oriented x 3, Cooperative, No Acute Distress HEENT: Atraumatic, Normocephalic, PERRL, EOMI, Sclera Non Icteric Oral: Moist Mucosa Neck: Supple, Good ROM, No JVD Lungs: Diminished Wesley Bases Cardiovascular: Irregular Rhythm, Normal S1, Normal S2 Abdomen: Bowel Sounds Present, Soft, Non Tender Extremities: Moderate RLE Edema, Moderate LLE Edema Neurological: No Focal Motor or Sensory Deficit Psych/Mental Status: Appropriate 09/04/18 16:07: WBC 5.9, RBC 3.79 L, Hgb 11.2 L, Hct 35.9 L, MCV 94.7, MCH 29.6, MCHC 31.2 L, RDW 14.0, RDW Differential 48.2 H, Plt Count 451 H, MPV 8.6, Immature Gran % (Auto) 0.200, Neut % (Auto) 66.9, Lymph % (Auto) 22.7, Mcdonough % (Auto) 7.4, Eos % (Auto) 2.5, Baso % (Auto) 0.3, Absolute Neuts (auto) 4.0, Total Counted Not Reportable 09/04/18 16:07: Sodium 142, Potassium 3.9, Chloride 105, Carbon Dioxide 30.0, Anion Gap 7, BUN 18, Creatinine 0.88, Est GFR (MDRD) Af Amer 80, Est GFR (MDRD) Non-Af 66, BUN/Creatinine Ratio 20.4 H, Glucose 125 H, Calcium 9.3, Troponin I < 0.015 09/04/18 16:07: B-Natriuretic Peptide 668.0 H 09/04/18 18:55: Troponin I < 0.015 Rhythm: Atrial fibrillation EKG: Atrial fibrillation; left axis deviation; poor R wave progression ECHO: As noted above CXR: As noted above Assessment/Plan 1. Atrial fibrillation with rapid ventricular response At the present time the patient has recurrent atrial fibrillation with rapid ventricular response. It is unclear how long this is been present. At the moment she is being monitored. This includes laboratory follow-up and cardiac rhythm follow-up and ECG follow-up. She can be reassessed with a transthoracic echocardiogram to reassess her atrial size as well as her ventricular wall motion systolic function and her underlying valvular anatomy and physiology. The meantime she will need to continue medical therapy. This will include attempts at rate control therapy, she may need antiarrhythmic therapy and attempt to maintain cardiac rate and/or hopefully regain sinus rhythm, as well as anticoagulant therapy. She may eventually need a repeat attempt at synchronized biphasic DC cardioversion. 2. Hypertension Her blood pressure was markedly elevated upon arrival. This may be a contributing factor to not only her atrial dysrhythmia but the appearance of her volume overload. Her blood pressure is being monitored. Her medications will be adjusted to try and bring her blood pressure under better control. 3. CHF: Unspecified At the moment she had evidence of volume overload. Based upon her previous noninvasive studies it was thought this may be an acute diastolic mediated event. She will continue noninvasive evaluation as noted above. She will continue medical therapy to assist with her volume status. Comment: The above was discussed reviewed with the patient and the emergency department staff and the hospital staff. This note was generated with [employer] dictation software. It may contain incorrect words, spelling, and punctuation that were not noted in checking the note before signing.
--- NOTE | 2018-09-04 21:54 | CON.PCM_ITS ---
Problem List (1) Atrial fibrillation Status: Acute (2) Hypertension Status: Chronic Qualifiers: Hypertension type: essential hypertension Qualified Code(s): I10 - Essential (primary) hypertension (3) CHF exacerbation Status: Acute Qualifiers: Heart failure type: unspecified Qualified Code(s): I50.9 - Heart failure, unspecified Reason for Consult Date of Consultation: 09/04/18 History of Present Illness: The patient is a 73 year old white female who has previously been evaluated by Inocente Romero MD for cardiovascular concerns including a history of underlying rheumatic heart disease, atrial fibrillation, and hypertension with her last inpatient cardiovascular evaluation appearing to be in on 08-18-17 who has not presented back for outpatient cardiovascular follow-up who now presents for concerns of underlying atrial fibrillation and hypertension exacerbation with concerns of CHF. The patient notes that she has not necessarily since the change in her underlying cardiac rate or rhythm. She states her blood pressure has been elevated as she has been undergoing evaluation care for oncology related issues. She has been more short of breath and dyspneic and has been noticing edema of the lower extremities. She denies any ongoing chest di scomfort. She states she does sleep somewhat propped up. There has been no near syncope or syncope. She was subsequently evaluated in the emergency department this day. She was found to be in atrial fibrillation with a rapid ventricular response as well as being markedly hypertensive and thought to be volume overloaded with findings compatible with CHF. She was recommended for further inpatient evaluation and care. She had a baseline troponin I level which was negative. BNP level was reported elevated at 668. A chest x-ray based on preliminary evaluation suggested a poor inspiratory effort, underlying thoracic aortic tortuosity and possible increased pulmonary vascularity. It is noted she had a transthoracic echocardiogram performed on 08-19-17. At that time her left ventricle was thought to be normal with an LVEF of 65% with moderate concentric LVH and mild biatrial enlargement with mild MR/TR and an estimated RV systolic pressure 51 mmHg. She subsequently underwent synchronized biphasic DC cardioversion on 08-25-17 with return to sinus rhythm. She believes in September of last year she was evaluated at the [facility] and underwent a pharmacologic stress nuclear imaging study which to the best of her knowledge was unremarkable. She does not believe she has ever had a diagnostic cardiac catheterization. [] Past Medical History Allergies/Adverse Reactions: Allergies azithromycin Allergy (Verified 09/04/18 15:42) Angioedema vitamin A [From Aquasol A] Allergy (Verified 09/04/18 15:42) Rash lisinopril Adverse Reaction (Verified 09/04/18 16:18) Other Home Medications: Ambulatory Orders Medication Instructions Recorded Multivitamins,Therapeutic 1 tablet PO DAILY 08/18/17 [Multivitamin] Rivaroxaban [Xarelto] 20 mg PO DAILY 05/05/18 Atenolol [Tenormin (beta jarod)] 50 mg PO BID 09/04/18 Cholecalciferol (Vitamin D3) 2,000 unit PO DAILY 09/04/18 [Vitamin D3] [place]-3 Fatty Acids [[place]-3] 2,000 mg PO DAILY 09/04/18 Valsartan [Diovan] 160 mg PO DAILY 09/04/18 Past Medical History (Chronic Problems): Chronic Problems (Last Reviewed 05/05/18 @ 09:09 by Susan Grimm RN) Hypertension (Chronic) Malignant neoplasm of left breast, estrogen receptor positive (Chronic) Type 2 diabetes mellitus without complication (Chronic) Morbid obesity (Chronic) Surgical History: appendectomy, hysterectomy, tonsillectomy MANAGER PHOTO History: No pertinent MANAGER PHOTO history - *Family History Maternal Family History: Family History (Last Updated 05/01/18 @ 08:58 by Sonali Tian) Unknown No problems noted. Mother Breast cancer Grandmother Breast cancer Sister Breast cancer Uterine cancer Sister Breast cancer Aunt Breast cancer Daughter Uterine cancer History Items: Cancer Paternal Family History: Family History (Last Updated 05/01/18 @ 08:58 by Sonali Tian) Unknown No problems noted. Mother Breast cancer Grandmother Breast cancer Sister Breast cancer Uterine cancer Sister Breast cancer Aunt Breast cancer Daughter Uterine cancer History Items: Diabetes, Heart Disease Lives: Alone Smoking Status: Never smoker Alcohol: None Drugs: None Review of Systems - Review of Systems General: Denies: Fever, Night Sweats, Fatigue Cardiovascular: Reports: Shortness of Breath, Orthopnea, Peripheral Edema. Denies: Chest Discomfort, PND, Palpitations, Lightheadedness, Dizziness, Near Syncope, Syncope Respiratory: Reports: Shortness of Breath. Denies: Cough, Sputum Production, Hemoptysis Gastrointestinal: Denies: Hematemesis, Hematochezia, Melena Genitourinary: Denies: Dysuria, Hematuria Skin: Denies: Rash Subjectve: This is a 73-year-old white female who appears to be resting reasonably comfortably at the moment in no acute distress. Objective: Vital Signs Temp Pulse Resp BP Pulse Ox 98.8 F 116 H 16 155/98 H 94 09/04/18 17:58 09/04/18 19:00 09/04/18 17:58 09/04/18 17:58 09/04/18 17:58 Oxygen Flow Rate (L/min) 2 Oxygen Delivery Method Room Air Weight: 218 lb 0.595 oz Body Mass Index (BMI) 41.1 General: Awake, Alert, Oriented x 3, Cooperative, No Acute Distress HEENT: Atraumatic, Normocephalic, PERRL, EOMI, Sclera Non Icteric Oral: Moist Mucosa Neck: Supple, Good ROM, No JVD Lungs: Diminished Wesley Bases Cardiovascular: Irregular Rhythm, Normal S1, Normal S2 Abdomen: Bowel Sounds Present, Soft, Non Tender Extremities: Moderate RLE Edema, Moderate LLE Edema Neurological: No Focal Motor or Sensory Deficit Psych/Mental Status: Appropriate 09/04/18 16:07: WBC 5.9, RBC 3.79 L, Hgb 11.2 L, Hct 35.9 L, MCV 94.7, MCH 29.6, MCHC 31.2 L, RDW 14.0, RDW Differential 48.2 H, Plt Count 451 H, MPV 8.6, Immature Gran % (Auto) 0.200, Neut % (Auto) 66.9, Lymph % (Auto) 22.7, Carter % (Auto) 7.4, Eos % (Auto) 2.5, Baso % (Auto) 0.3, Absolute Neuts (auto) 4.0, Total Counted Not Reportable 09/04/18 16:07: Sodium 142, Potassium 3.9, Chloride 105, Carbon Dioxide 30.0, Anion Gap 7, BUN 18, Creatinine 0.88, Est GFR (MDRD) Af Amer 80, Est GFR (MDRD) Non-Af 66, BUN/Creatinine Ratio 20.4 H, Glucose 125 H, Calcium 9.3, Troponin I < 0.015 09/04/18 16:07: B-Natriuretic Peptide 668.0 H 09/04/18 18:55: Troponin I < 0.015 Rhythm: Atrial fibrillation EKG: Atrial fibrillation; left axis deviation; poor R wave progression ECHO: As noted above CXR: As noted above Assessment/Plan 1. Atrial fibrillation with rapid ventricular response At the present time the patient has recurrent atrial fibrillation with rapid ventricular response. It is unclear how long this is been present. At the moment she is being monitored. This includes laboratory follow-up and cardiac rhythm follow-up and ECG follow-up. She can be reassessed with a transthoracic echocardiogram to reassess her atrial size as well as her ventricular wall motion systolic function and her underlying valvular anatomy and physiology. The meantime she will need to continue medical therapy. This will include attempts at rate control therapy, she may need antiarrhythmic therapy and attempt to maintain cardiac rate and/or hopefully regain sinus rhythm, as well as anticoagulant therapy. She may eventually need a repeat attempt at synchronized biphasic DC cardioversion. 2. Hypertension Her blood pressure was markedly elevated upon arrival. This may be a contributing factor to not only her atrial dysrhythmia but the appearance of her volume overload. Her blood pressure is being monitored. Her medications will be adjusted to try and bring her blood pressure under better control. 3. CHF: Unspecified At the moment she had evidence of volume overload. Based upon her previous noninvasive studies it was thought this may be an acute diastolic mediated event. She will continue noninvasive evaluation as noted above. She will continue medical therapy to assist with her volume status. Comment: The above was discussed reviewed with the patient and the [facility] emergency department staff and the [facility] hospital staff. This note was generated with TasteSpaceation software. It may contain incorrect words, spelling, and punctuation that were not noted in checking the note before signing.
--- NOTE | 2018-09-04 23:10 | NURSING ---
Patient became step down status on an amiodarone drip, this RN taking over care at this time.
[2018-09-05] VITALS (40 sets, daily range): BP systolic 132–166; BP diastolic 89–120; PULSE 90–120; RESP 15–30; TEMP 36.4–37.1; O2SAT 92–98
[2018-09-05] MEDS: 0.9% NaCl Peripheral Flush Adult/Peds IV ×2 (02:20→06:31)
[2018-09-05] MEDS: Acetaminophen 325 MG Tablet 650 MG PO (03:54)
--- NOTE | 2018-09-05 05:55 | EKG12_ITS ---
Test Reason : AM EKG Blood Pressure : / mmHG Vent. Rate : 097 BPM Atrial Rate : 115 BPM P-R Int : 000 ms QRS Dur : 080 ms QT Int : 384 ms P-R-T Axes : 000 -35 005 degrees QTc Int : 487 ms Atrial fibrillation Left axis deviation Minimal voltage criteria for LVH, may be normal variant Abnormal ECG Confirmed by BATSHEVA SINHA, VERNA ([id number]), editor publications PATRICIA THAPA ([id number]) on 09/11/2018 6:47:25 AM Referred By: Shannon De La Cruz Confirmed By:VERNA HERMAN MD
[2018-09-05] MEDS: Metoprolol Tartrate 100 MG Tablet PO ×2 (08:43→21:23)
[2018-09-05 08:44] LABS: Anion Gap 10 (5-15); BUN 17 mg/dL (7-18); BUN/Creat Ratio 21.5 RATIO (10-20); Chloride 102 mmol/L (98-107); Cholesterol 129 mg/dL (200); Creatinine, Serum 0.79 mg/dL (0.55-1.02); EST Glomerular Filtration Rate 75 mL/min (>60); Est Glom Filt Rate - Afr Amer 91 mL/min (>60); Estimated Creatinine Clearance 37.24 ml/min; Glucose 132 mg/dL (74-106); High Density Lipoprotein 40 mg/dL; Potassium 3.3 mmol/L (3.5-5.1); Sodium Level 142 mmol/L (136-145); Triglycerides 103 mg/dL; Very Low Density Lipoprotein 21 mg/dL (5-40)
[2018-09-05] MEDS: Furosemide 40 MG/4 ML Vial IV ×2 (08:44→17:14)
[2018-09-05] MEDS: Losartan Potassium 50 MG Tablet PO ×2 (08:44→21:23)
[2018-09-05] MEDS: Omega-3 Acid Ethyl Esters 1 GM Capsule PO ×2 (09:39→17:14)
[2018-09-05] MEDS: Multivitamins,Therapeutic Tablet 1 TABLET PO (09:39)
--- NOTE | 2018-09-05 12:57 | PCM.PN.CARD ---
Subjectve: The patient is awake and alert. She believes her breathing has improved. She has no other new acute cardiovascular complaints. Objective: Vital Signs Temp Pulse Resp BP Pulse Ox 97.6 F L 95 16 151/92 H 96 09/05/18 12:00 09/05/18 12:00 09/05/18 12:00 09/05/18 12:35 09/05/18 12:00 Oxygen Flow Rate (L/min) 2 Oxygen Delivery Method Room Air Weight: 213 lb 2.992 oz Body Mass Index (BMI) 41.1 Intake and Output for Last 24 Hours 09/03/18 09/04/18 09/05/18 23:59 23:59 23:59 Intake Total 1444.7 / 1444.7 Output Total 1900 / 1900 Balance -455.3 / -455.3 General: Awake, Alert, Oriented x 3, Cooperative, No Acute Distress HEENT: Atraumatic, Normocephalic, PERRL, EOMI, Sclera Non Icteric Oral: Moist Mucosa Neck: Supple, Good ROM, No JVD Lungs: Diminished Wesley Bases - Minimal Cardiovascular: Irregular Rhythm, Normal S1, Normal S2 Abdomen: Bowel Sounds Present, Soft, Non Tender Extremities: Moderate RLE Edema, Moderate LLE Edema Psych/Mental Status: Appropriate 09/04/18 16:07: WBC 5.9, RBC 3.79 L, Hgb 11.2 L, Hct 35.9 L, MCV 94.7, MCH 29.6, MCHC 31.2 L, RDW 14.0, RDW Differential 48.2 H, Plt Count 451 H, MPV 8.6, Immature Gran % (Auto) 0.200, Neut % (Auto) 66.9, Lymph % (Auto) 22.7, Page % (Auto) 7.4, Eos % (Auto) 2.5, Baso % (Auto) 0.3, Absolute Neuts (auto) 4.0, Total Counted Not Reportable 09/04/18 16:07: Sodium 142, Potassium 3.9, Chloride 105, Carbon Dioxide 30.0, Anion Gap 7, BUN 18, Creatinine 0.88, Est GFR (MDRD) Af Amer 80, Est GFR (MDRD) Non-Af 66, BUN/Creatinine Ratio 20.4 H, Glucose 125 H, Calcium 9.3, Troponin I < 0.015 05/31/19 16:07: B-Natriuretic Peptide 668.0 H 09/04/18 18:55: Troponin I < 0.015 09/05/18 05:16: Sodium 142, Potassium 3.3 L, Chloride 102, Carbon Dioxide 30.0, Anion Gap 10, BUN 17, Creatinine 0.79, Est GFR (MDRD) Af Amer 91, Est GFR (MDRD) Non-Af 75, BUN/Creatinine Ratio 21.5 H, Glucose 132 H, Calcium 9.0, Triglycerides 103, Cholesterol 129, LDL Cholesterol 68, VLDL Cholesterol 21, HDL Cholesterol 40 09/05/18 05:16: Troponin I < 0.015 Rhythm: Atrial fibrillation EKG: Atrial fibrillation; left axis deviation; poor R wave progression Medical Necessity - Tobacco Use Smoking Status: Never smoker Assessment/Plan 1. Atrial fibrillation with rapid ventricular response At the present time the patient has recurrent atrial fibrillation with rapid ventricular response. It is unclear how long this is been present. At the moment she is being monitored. This includes laboratory follow-up and cardiac rhythm follow-up and ECG follow-up. She can be reassessed with a transthoracic echocardiogram to reassess her atrial size as well as her ventricular wall motion systolic function and her underlying valvular anatomy and physiology. The meantime she will need to continue medical therapy. This will include attempts at rate control therapy, she may need antiarrhythmic therapy and attempt to maintain cardiac rate and/or hopefully regain sinus rhythm, as well as anticoagulant therapy. She may eventually need a repeat attempt at synchronized biphasic DC cardioversion. And she has remained on her anticoagulant therapy without interruption this may be able to be performed without KRYSTAL guided assistance. 2. Hypertension Her blood pressure was markedly elevated upon arrival. This may be a contributing factor to not only her atrial dysrhythmia but the appearance of her volume overload. Her blood pressure is being monitored. Her antihypertensive regimen will be adjusted to hopefully bring her blood pressure under better control. 3. CHF: Unspecified At the moment she had evidence of volume overload. Based upon her previous noninvasive studies it was thought this may be an acute diastolic mediated event. She will continue noninvasive evaluation as noted above. She will continue medical therapy to assist with her volume status. Comment: The above was discussed reviewed with the patient and the [facility] staff. This note was generated with Dragon dictation software. It may contain incorrect words, spelling, and punctuation that were not noted in checking the note before signing.
--- NOTE | 2018-09-05 13:16 | CASEMGMT ---
Assessment- SW met with patient. Introduced self and role at [facility]. Patient was in agreement with answering questions. Living situation- Patient lives alone in a condo with a basement. She has 1 small entry step. PCP: Dr Santos Specialists: Dr Romero-Cardiology and another heart Dr at [facility] in [place], Dr Patricia at [facility], and an orthopedic Dr she could not pronounce her last name, but her first name is Caryn. [facility]: [facility] DME: Walker, cane, grab bars, and shower chair. ADL's/IADL's: Patient is independent will all activities. Past SNF/rehab: None Past HH: None LW: Yes. Not on file POA: Yes. Not on file. She said her son Dmitry is her HCPOA Plan: Patient feels she will be fine for home at d/c. She has no preference for O2 company if she needs it. Jyotsna DANIELSON BEEKEEPER
--- NOTE | 2018-09-05 13:53 | PCM.PROGNOTE ---
<Oskar Elizabeth - Last Filed: 09/05/18 13:53> Patient Problems: Active and Suspected Problems (Last Reviewed 05/05/18 @ 09:09 by Susan Grimm RN) Atrial fibrillation with RVR (Acute) CHF exacerbation (Acute) Subjective: SOB continues. No cough. Severe LE edema continues. Good diuresis. Remains in afib/tachy. No palp. No LH/Dizziness. No CP. - Physical Exam General: Alert, Oriented x3, Cooperative HEENT: Atraumatic, PERRLA, EOMI, Normocephalic Neck: Supple, No JVD, Negative Carotid Bruits Lungs: Diminished, Rales Cardiovascular: Regular rate, No murmurs Abdomen: Bowel Sounds Present, Soft, Non Tender Extremities: Capillary Refill Less than 3 Seconds, Edema - 3+ pitting edema BLE Skin: No rashes, No breakdown Musculoskeletal: No Tenderness to Palpation of Joints or Extremities Neurological: Cranial nerves II-XII grossly intact Psych/Mental Status: Normal Affect, Appropriate, Alert and oriented to time, place, person, mood and affect Vital Signs Temp Pulse Resp BP Pulse Ox 97.6 F L 104 H 18 154/104 H 98 09/05/18 12:00 09/05/18 13:00 09/05/18 13:00 09/05/18 13:00 09/05/18 13:00 Oxygen Flow Rate (L/min) 2 Oxygen Delivery Method Nasal Cannula Weight: 213 lb 2.992 oz Body Mass Index (BMI) 41.1 Intake and Output for Last 24 Hours 09/03/18 09/04/18 09/05/18 23:59 23:59 23:59 Intake Total 1444.7 / 1444.7 Output Total 1900 / 1900 Balance -455.3 / -455.3 Laboratory Tests Past 24 Hrs 09/04/18 09/04/18 09/04/18 16:07 16:07 16:07 WBC 5.9 RBC 3.79 L Hgb 11.2 L Hct 35.9 L MCV 94.7 MCH 29.6 MCHC 31.2 L RDW 14.0 RDW Differential 48.2 H Plt Count 451 H MPV 8.6 Immature Gran % (Auto) 0.200 Neut % (Auto) 66.9 Lymph % (Auto) 22.7 [place] % (Auto) 7.4 Eos % (Auto) 2.5 Baso % (Auto) 0.3 Absolute Neuts (auto) 4.0 Absolute Lymphs (auto) 1.34 Total Counted Not Reportable Sodium 142 Potassium 3.9 Chloride 105 Carbon Dioxide 30.0 Anion Gap 7 BUN 18 Creatinine 0.88 Estim Creat Clear Calc 42.32 Est GFR (MDRD) Af Amer 80 Est GFR (MDRD) Non-Af 66 BUN/Creatinine Ratio 20.4 H Glucose 125 H Calcium 9.3 Troponin I < 0.015 B-Natriuretic Peptide 668.0 H Triglycerides Cholesterol LDL Cholesterol VLDL Cholesterol HDL Cholesterol 09/04/18 09/05/18 09/05/18 18:55 05:16 05:16 WBC RBC Hgb Hct MCV MCH MCHC RDW RDW Differential Plt Count MPV Immature Gran % (Auto) Neut % (Auto) Lymph % (Auto) [place] % (Auto) Eos % (Auto) Baso % (Auto) Absolute Neuts (auto) Absolute Lymphs (auto) Total Counted Sodium 142 Potassium 3.3 L Chloride 102 Carbon Dioxide 30.0 Anion Gap 10 BUN 17 Creatinine 0.79 Estim Creat Clear Calc 37.24 Est GFR (MDRD) Af Amer 91 Est GFR (MDRD) Non-Af 75 BUN/Creatinine Ratio 21.5 H Glucose 132 H Calcium 9.0 Troponin I < 0.015 < 0.015 B-Natriuretic Peptide Triglycerides 103 Cholesterol 129 LDL Cholesterol 68 VLDL Cholesterol 21 HDL Cholesterol 40 Medical Necessity - Tobacco Use Smoking Status: Never smoker Assessment/Plan All Active Problems (Last Reviewed 05/05/18 @ 09:09 by Susan Grimm RN) Atrial fibrillation (Acute) Obesity, Class III, BMI 40-49.9 (morbid obesity) (Acute) Anticoagulant long-term use (Acute) Atrial fibrillation with RVR (Acute) CHF exacerbation (Acute) 1. Afib with RVR - Continue xarelto, amio drip, metoprolol. Cards following. Possible KRYSTAL / Cardioversion on friday. 2. Acute diastolic CHF complicated by moderate pulmonary htn - last echo EF65% with moderate pulmonary htn. Diuresing well. Continue IV lasix. On ARB/BB. -Echo pending. 3. HTN emergency as evidenced by marked HTN with CHF exacerbation - Improved. Still high. 4. Morbid obesity - dietary eval. 5. Hx breast cancer, left - s/p radiation and surgery last fall, she does not know the current status of the cancer. Tx at [facility]. 6. Suspect underlying RONALDO - STOP BANG at least 3, pulmonary htn and afib, needs o/p sleep study, possibly overnight trending pulse ox while here. DVT ppx: xarelto DC planning: PTOT. Lives alone This patient was seen by Oskar Elizabeth PA-C under the supervision of Dr. Miranda <Pramod Miranda - Last Filed: 09/05/18 14:14> - Physical Exam General: Alert, Cooperative HEENT: Atraumatic, Normocephalic Neck: Supple, No JVD, Negative Carotid Bruits, Negative Hepatojugular Reflux Lungs: Diminished, Rales Cardiovascular: Regular rate, No murmurs Abdomen: Bowel Sounds Present, Soft, Non Tender Extremities: Capillary Refill Less than 3 Seconds - slight. right greater than left., Edema Skin: No rashes, No breakdown Psych/Mental Status: Normal Affect, Appropriate Vital Signs Temp Pulse Resp BP Pulse Ox 36.4 C L 104 H 18 154/104 H 98 09/05/18 12:00 09/05/18 13:00 09/05/18 13:00 09/05/18 13:00 09/05/18 13:00 Oxygen Flow Rate (L/min) 2 Oxygen Delivery Method Nasal Cannula Weight: 96.7 kg Body Mass Index (BMI) 41.1 Intake and Output for Last 24 Hours 09/03/18 09/04/18 09/05/18 23:59 23:59 23:59 Intake Total 1444.7 / 1444.7 Output Total 1900 / 1900 Balance -455.3 / -455.3 Laboratory Tests Past 24 Hrs 09/04/18 09/04/18 09/04/18 16:07 16:07 16:07 WBC 5.9 RBC 3.79 L Hgb 11.2 L Hct 35.9 L MCV 94.7 MCH 29.6 MCHC 31.2 L RDW 14.0 RDW Differential 48.2 H Plt Count 451 H MPV 8.6 Immature Gran % (Auto) 0.200 Neut % (Auto) 66.9 Lymph % (Auto) 22.7 [place] % (Auto) 7.4 Eos % (Auto) 2.5 Baso % (Auto) 0.3 Absolute Neuts (auto) 4.0 Absolute Lymphs (auto) 1.34 Total Counted Not Reportable Sodium 142 Potassium 3.9 Chloride 105 Carbon Dioxide 30.0 Anion Gap 7 BUN 18 Creatinine 0.88 Estim Creat Clear Calc 42.32 Est GFR (MDRD) Af Amer 80 Est GFR (MDRD) Non-Af 66 BUN/Creatinine Ratio 20.4 H Glucose 125 H Calcium 9.3 Troponin I < 0.015 B-Natriuretic Peptide 668.0 H Triglycerides Cholesterol LDL Cholesterol VLDL Cholesterol HDL Cholesterol 09/04/18 09/05/18 09/05/18 18:55 05:16 05:16 WBC RBC Hgb Hct MCV MCH MCHC RDW RDW Differential Plt Count MPV Immature Gran % (Auto) Neut % (Auto) Lymph % (Auto) [place] % (Auto) Eos % (Auto) Baso % (Auto) Absolute Neuts (auto) Absolute Lymphs (auto) Total Counted Sodium 142 Potassium 3.3 L Chloride 102 Carbon Dioxide 30.0 Anion Gap 10 BUN 17 Creatinine 0.79 Estim Creat Clear Calc 37.24 Est GFR (MDRD) Af Amer 91 Est GFR (MDRD) Non-Af 75 BUN/Creatinine Ratio 21.5 H Glucose 132 H Calcium 9.0 Troponin I < 0.015 < 0.015 B-Natriuretic Peptide Triglycerides 103 Cholesterol 129 LDL Cholesterol 68 VLDL Cholesterol 21 HDL Cholesterol 40 Assessment/Plan Patient seen and examined independently. Data reviewed. I agree with the above note by the physician life science research assistant. 1. Atrial fibrillation with RVR: Currently rate controlled. Still in atrial fibrillation. Anticoagulated with rivaroxaban. Continue with amiodarone drip and metoprolol. Cardiology following. Plan is for direct-current cardioversion on the third. Code Visit Inpatient E&M: 21695 Subs Hosp L2
[2018-09-05] MEDS: amLODIPine 5 MG Tablet PO (14:41)
[2018-09-05] MEDS: Rivaroxaban 20 MG Tablet PO (17:14)
[2018-09-06] VITALS (31 sets, daily range): BP systolic 119–156; BP diastolic 83–114; PULSE 92–111; RESP 15–27; TEMP 36.6–37.1; O2SAT 87–99; BMI 39.8
--- NOTE | 2018-09-06 01:34 | NURSING ---
Patient undergoing trending pulse ox overnight. Had been desatting to 70s multiple times a minute but not sustaining. At this time, patient desats to 55-70% on RA, sustaining for longer than 30 seconds, so placed on 2L NC per instruction of respiratory therapist. Called to notify respiratory therapist at this time.
--- NOTE | 2018-09-06 02:09 | CPS ---
RN made RT aware of adding O2 during cont. pulse ox. Study started on RA and 2LNC was added after desaturation to low 70s was witnessed. Desaturation was more sustained compared to recent episodes.
[2018-09-06 06:54] LABS: Anion Gap 8 (5-15); BUN 14 mg/dL (7-18); BUN/Creat Ratio 19.4 RATIO (10-20); Chloride 99 mmol/L (98-107); Creatinine, Serum 0.72 mg/dL (0.55-1.02); EST Glomerular Filtration Rate 84 mL/min (>60); Est Glom Filt Rate - Afr Amer 102 mL/min (>60); Estimated Creatinine Clearance 37.24 ml/min; Glucose 131 mg/dL (74-106); Potassium 3.5 mmol/L (3.5-5.1); Sodium Level 141 mmol/L (136-145)
[2018-09-06] MEDS: Omega-3 Acid Ethyl Esters 1 GM Capsule PO ×2 (08:06→17:32)
[2018-09-06] MEDS: Multivitamins,Therapeutic Tablet 1 TABLET PO (08:06)
[2018-09-06] MEDS: Losartan Potassium 50 MG Tablet PO ×2 (10:35→21:37)
[2018-09-06] MEDS: Furosemide 40 MG/4 ML Vial IV (10:35)
[2018-09-06] MEDS: Metoprolol Tartrate 100 MG Tablet PO ×2 (10:36→21:37)
[2018-09-06] MEDS: amLODIPine 5 MG Tablet PO (10:36)
--- NOTE | 2018-09-06 11:05 | EKG12_ITS ---
Test Reason : Blood Pressure : / mmHG Vent. Rate : 090 BPM Atrial Rate : 065 BPM P-R Int : 000 ms QRS Dur : 080 ms QT Int : 394 ms P-R-T Axes : 000 -41 007 degrees QTc Int : 481 ms Atrial fibrillation Left axis deviation Anterolateral infarct , age undetermined Abnormal ECG Confirmed by BATSHEVA SINHA, VERNA ([id number]), photograph editor PATRICIA THAPA ([id number]) on 09/11/2018 7:01:14 AM Referred By: hSannon De La Cruz Confirmed By:VERNA HERMAN MD
--- NOTE | 2018-09-06 11:06 | PCM.PN.CARD ---
Subjectve: The patient states that she does feel somewhat better overall especially with respect to her breathing and her lower extremity edema. Objective: Vital Signs Temp Pulse Resp BP Pulse Ox 97.8 F 100 15 119/83 H 96 09/06/18 08:00 09/06/18 10:36 09/06/18 10:00 09/06/18 10:36 09/06/18 10:00 Oxygen Flow Rate (L/min) 3 Oxygen Delivery Method Nasal Cannula Weight: 210 lb 12.191 oz Body Mass Index (BMI) 41.1 Intake and Output for Last 24 Hours 09/04/18 09/05/18 09/06/18 23:59 23:59 23:59 Intake Total 2147.9 / 2147.9 180 / 180 Output Total 3600 / 3600 300 / 300 Balance -1452.1 / -1452.1 -120 / -120 General: Awake, Alert, Oriented x 3, Cooperative, No Acute Distress HEENT: Atraumatic, Normocephalic, PERRL, EOMI, Sclera Non Icteric Oral: Moist Mucosa Neck: Supple, Good ROM, No JVD Lungs: Clear to auscultation Cardiovascular: Irregular Rhythm, Normal S1, Normal S2 Abdomen: Bowel Sounds Present, Soft, Non Tender Extremities: Trace RLE Edema, Trace LLE Edema Neurological: No Focal Motor or Sensory Deficit Psych/Mental Status: Appropriate 09/06/18 05:20: Sodium 141, Potassium 3.5, Chloride 99, Carbon Dioxide 34.0 H, Anion Gap 8, BUN 14, Creatinine 0.72, Est GFR (MDRD) Af Amer 102, Est GFR (MDRD) Non-Af 84, BUN/Creatinine Ratio 19.4, Glucose 131 H, Calcium 9.0 Rhythm: Atrial fibrillation Medical Necessity - Tobacco Use Smoking Status: Never smoker Assessment/Plan 1. Atrial fibrillation with rapid ventricular response At the present time the patient has recurrent atrial fibrillation with rapid ventricular response. It is unclear how long this is been present. At the moment she is being monitored. This includes laboratory follow-up and cardiac rhythm follow-up and ECG follow-up. She will tinea medical management. This will include attempts at rate control therapy, antiarrhythmic therapy,as well as anticoagulant therapy. As she states that she has been on anticoagulant therapy without interruption she will be tentatively scheduled for an attempt at synchronized biphasic DC cardioversion tomorrow. 2. Hypertension Her blood pressure was markedly elevated upon arrival. This may be a contributing factor to not only her atrial dysrhythmia but the appearance of her volume overload. Her blood pressure is being monitored. Her antihypertensive regimen will be adjusted to hopefully bring her blood pressure under better control. 3. CHF: Unspecified At the moment she had evidence of volume overload. Based upon her previous noninvasive studies it was thought this may be an acute diastolic mediated event. Her diuretics will be adjusted from IV to oral. Her renal function and electrolytes will continue to be followed. Comment: The above was discussed reviewed with the patient and the [facility] staff. This note was generated with [employer] dictation software. It may contain incorrect words, spelling, and punctuation that were not noted in checking the note before signing.
--- NOTE | 2018-09-06 11:09 | PN.CARD_ITS ---
Subjectve: The patient states that she does feel somewhat better overall especially with respect to her breathing and her lower extremity edema. Objective: Vital Signs Temp Pulse Resp BP Pulse Ox 97.8 F 100 15 119/83 H 96 09/06/18 08:00 09/06/18 10:36 09/06/18 10:00 09/06/18 10:36 09/06/18 10:00 Oxygen Flow Rate (L/min) 3 Oxygen Delivery Method Nasal Cannula Weight: 210 lb 12.191 oz Body Mass Index (BMI) 41.1 Intake and Output for Last 24 Hours 09/04/18 09/05/18 09/06/18 23:59 23:59 23:59 Intake Total 2147.9 / 2147.9 180 / 180 Output Total 3600 / 3600 300 / 300 Balance -1452.1 / -1452.1 -120 / -120 General: Awake, Alert, Oriented x 3, Cooperative, No Acute Distress HEENT: Atraumatic, Normocephalic, PERRL, EOMI, Sclera Non Icteric Oral: Moist Mucosa Neck: Supple, Good ROM, No JVD Lungs: Clear to auscultation Cardiovascular: Irregular Rhythm, Normal S1, Normal S2 Abdomen: Bowel Sounds Present, Soft, Non Tender Extremities: Trace RLE Edema, Trace LLE Edema Neurological: No Focal Motor or Sensory Deficit Psych/Mental Status: Appropriate 09/06/18 05:20: Sodium 141, Potassium 3.5, Chloride 99, Carbon Dioxide 34.0 H, Anion Gap 8, BUN 14, Creatinine 0.72, Est GFR (MDRD) Af Amer 102, Est GFR (MDRD) Non-Af 84, BUN/Creatinine Ratio 19.4, Glucose 131 H, Calcium 9.0 Rhythm: Atrial fibrillation Medical Necessity - Tobacco Use Smoking Status: Never smoker Assessment/Plan 1. Atrial fibrillation with rapid ventricular response At the present time the patient has recurrent atrial fibrillation with rapid ventricular response. It is unclear how long this is been present. At the moment she is being monitored. This includes laboratory follow-up and cardiac rhythm follow-up and ECG follow-up. She will tinea medical management. This will include attempts at rate control therapy, antiarrhythmic therapy,as well as anticoagulant therapy. As she states that she has been on anticoagulant therapy without interruption she will be tentatively scheduled for an attempt at synchronized biphasic DC cardioversion tomorrow. 2. Hypertension Her blood pressure was markedly elevated upon arrival. This may be a contributing factor to not only her atrial dysrhythmia but the appearance of her volume overload. Her blood pressure is being monitored. Her antihypertensive regimen will be adjusted to hopefully bring her blood pressure under better control. 3. CHF: Unspecified At the moment she had evidence of volume overload. Based upon her previous noninvasive studies it was thought this may be an acute diastolic mediated event. Her diuretics will be adjusted from IV to oral. Her renal function and electrol ytes will continue to be followed. Comment: The above was discussed reviewed with the patient and the [facility] staff. This note was generated with [employer] dictation software. It may contain incorrect words, spelling, and punctuation that were not noted in checking the note before signing.
[2018-09-06] MEDS: Acetaminophen 325 MG Tablet 650 MG PO (12:31)
--- NOTE | 2018-09-06 14:22 | PCM.PN.HOSP ---
Patient Problems: Active and Suspected Problems (Last Reviewed 05/05/18 @ 09:09 by Susan Grimm RN) Atrial fibrillation with RVR (Acute) CHF exacerbation (Acute) Subjective: No new complaints. Objective: still in afib with HR 110 on tele. Vitals/I&O's: Vital Signs Temp Pulse Resp BP Pulse Ox 36.9 C 92 23 H 136/104 H 98 09/06/18 11:00 09/06/18 12:36 09/06/18 12:36 09/06/18 12:36 09/06/18 12:36 Oxygen Flow Rate (L/min) 2 Oxygen Delivery Method Nasal Cannula Weight: 95.6 kg Body Mass Index (BMI) 41.1 Intake and Output for Last 24 Hours 09/04/18 09/05/18 09/06/18 23:59 23:59 23:59 Intake Total 2147.9 / 2147.9 860 / 860 Output Total 3600 / 3600 500 / 500 Balance -1452.1 / -1452.1 360 / 360 General: Alert, No apparent distress HEENT: Atraumatic, Normocephalic Neck: No Nodes, Thyroid Normal Size and Texture Lungs: Clear to auscultation, Normal air movement, No rhonchi, No wheeze Cardiovascular: Regular rate, Regular Rhythm, Normal S1, Normal S2, No murmurs Abdomen: Bowel Sounds Present, Soft, Non Tender, Non-Distended, No Hepato-splenomegaly Extremities: No edema, No Calf Tenderness Skin: No rashes, No breakdown Psych/Mental Status: Normal Affect, Appropriate Laboratory Results 09/06/18 05:20: Sodium 141, Potassium 3.5, Chloride 99, Carbon Dioxide 34.0 H, Anion Gap 8, BUN 14, Creatinine 0.72, Estim Creat Clear Calc 37.24, Est GFR (MDRD) Af Amer 102, Est GFR (MDRD) Non-Af 84, BUN/Creatinine Ratio 19.4, Glucose 131 H, Calcium 9.0 Current Medications Acetaminophen (Tylenol) 650 mg PO Q6H PRN PRN PRN Reason: Mild pain 1-3/Temp > 100.7 F Last Admin: 09/06/18 12:31 Dose: 650 mg Amiodarone HCl (Cordarone) 200 mg PO TID ANTOINE Stop: 06/09/19 22:01 Amiodarone HCl (Cordarone) 200 mg PO BID [facility] Stop: 09/20/18 22:01 Amiodarone HCl (Cordarone) 200 mg PO DAILY [facility] Amlodipine Besylate (Norvasc) 5 mg PO DAILY [facility] Last Admin: 09/06/18 10:36 Dose: 5 mg Cholecalciferol (Vitamin D) 2,000 unit PO DAILY [facility] Last Admin: 09/06/18 10:36 Dose: 2,000 unit Docusate Sodium (Colace) 100 mg PO BID PRN PRN PRN Reason: Constipation Furosemide (Lasix) 40 mg PO BID@1000,1800 [facility] Guaifenesin (Robitussin) 20 ml PO Q4H PRN PRN PRN Reason: COUGH Sodium Chloride () 500 mls @ 0 mls/hr IV .Q0M [facility] Amiodarone HCl 360 mg/ (Dextrose) 200 mls @ 16.67 mls/hr CONT INF .Q12H [facility] Stop: 09/06/18 23:05 Labetalol HCl (Trandate) 10 mg IV Q4H PRN PRN PRN Reason: SBP> 160 or DBP > 120 Last Admin: 09/05/18 17:12 Dose: 10 mg Losartan Potassium (Cozaar) 50 mg PO BID [facility] Last Admin: 09/06/18 10:35 Dose: 50 mg Metoprolol Tartrate (Lopressor (Beta Sixto)) 100 mg PO BID [facility] Last Admin: 09/06/18 10:36 Dose: 100 mg [facility] Last Admin: 09/06/18 08:06 Dose: 1 tablet [id number] Ethyl Esters (Lovaza) [facility] Last Admin: 09/06/18 08:06 Dose: 1 gm Potassium Chloride (K-Dur) [facility] Last Admin: 09/06/18 08:06 Dose: 40 meq Psyllium Hydrophilic Mucilloid (Metamucil) 1 packet PO DAILY PRN PRN PRN Reason: Constipation Rivaroxaban (Xarelto) 20 mg PO DAILY@1700 [facility] Last Admin: 09/05/18 17:14 Dose: 20 mg Sodium Chloride () 5 - 15 ml IV UD PRN PRN Reason: SALINE FLUSH Last Admin: 09/05/18 06:31 Dose: 10 ml Medical Necessity - Tobacco Use Smoking Status: Never smoker Assessment/Plan All Active Problems (Last Reviewed 05/05/18 @ 09:09 by Susan Grimm RN) Atrial fibrillation (Acute) Obesity, Class III, BMI 40-49.9 (morbid obesity) (Acute) Anticoagulant long-term use (Acute) Atrial fibrillation with RVR (Acute) CHF exacerbation (Acute) 1. Atrial fibrillation with RVR: Rate overall better controlled. Still in atrial fibrillation. Anticoagulated with rivaroxaban. Continue with amiodarone drip and metoprolol. Cardiology following. Plan is for direct-current cardioversion on the third. 2. HFpEF, acute likely exacerbated by #1 EF 55%. Complicated by pulmonary HTN (RVSP 46mmHg). May have RONALDO. Will need outpt PSG. on furosemide and losartan 3.HTN accelerated HTN emergency ruled out improved continue losartan, furosemide 4. VTE proph: not indicated. Low risk while she is anticoagulated. 5. Disposition: pending DCCV and overall clinical recovery Code Visit Inpatient E&M: 28095 Subs Hosp L2
--- NOTE | 2018-09-06 14:31 | PN_ITS ---
Patient Problems: Active and Suspected Problems (Last Reviewed 05/05/18 @ 09:09 by Susan Grimm RN) Atrial fibrillation with RVR (Acute) CHF exacerbation (Acute) Subjective: No new complaints. Objective: still in afib with HR 110 on tele. Vitals/I&O's: Vital Signs Temp Pulse Resp BP Pulse Ox 36.9 C 92 23 H 136/104 H 98 09/06/18 11:00 09/06/18 12:36 09/06/18 12:36 09/06/18 12:36 09/06/18 12:36 Oxygen Flow Rate (L/min) 2 Oxygen Delivery Method Nasal Cannula Weight: 95.6 kg Body Mass Index (BMI) 41.1 Intake and Output for Last 24 Hours 09/04/18 09/05/18 09/06/18 23:59 23:59 23:59 Intake Total 2147.9 / 2147.9 860 / 860 Output Total 3600 / 3600 500 / 500 Balance -1452.1 / -1452.1 360 / 360 General: Alert, No apparent distress HEENT: Atraumatic, Normocephalic Neck: No Nodes, Thyroid Normal Size and Texture Lungs: Clear to auscultation, Normal air movement, No rhonchi, No wheeze Cardiovascular: Regular rate, Regular Rhythm, Normal S1, Normal S2, No murmurs Abdomen: Bowel Sounds Present, Soft, Non Tender, Non-Distended, No Hepato- splenomegaly Extremities: No edema, No Calf Tenderness Skin: No rashes, No breakdown Psych/Mental Status: Normal Affect, Appropriate Laboratory Results 09/06/18 05:20: Sodium 141, Potassium 3.5, Chloride 99, Carbon Dioxide 34.0 H, Anion Gap 8, BUN 14, Creatinine 0.72, Estim Creat Clear Calc 37.24, Est GFR (MDRD) Af Amer 102, Est GFR (MDRD) Non-Af 84, BUN/Creatinine Ratio 19.4, Glucose 131 H, Calcium 9.0 Current Medications Acetaminophen (Tylenol) 650 mg PO Q6H PRN PRN PRN Reason: Mild pain 1-3/Temp > 100.7 F Last Admin: 09/06/18 12:31 Dose: 650 mg Amiodarone HCl (Cordarone) 200 mg PO TID ANTOINE Stop: 06/09/19 22:01 Amiodarone HCl (Cordarone) 200 mg PO BID [facility] Stop: 09/20/18 22:01 Amiodarone HCl (Cordarone) 200 mg PO DAILY [facility] Amlodipine Besylate (Norvasc) 5 mg PO DAILY [facility] Last Admin: 09/06/18 10:36 Dose: 5 mg Cholecalciferol (Vitamin D) 2,000 unit PO DAILY [facility] Last Admin: 09/06/18 10:36 Dose: 2,000 unit Docusate Sodium (Colace) 100 mg PO BID PRN PRN PRN Reason: Constipation Furosemide (Lasix) 40 mg PO BID@1000,1800 [facility] Guaifenesin (Robitussin) 20 ml PO Q4H PRN PRN PRN Reason: COUGH Sodium Chloride () 500 mls @ 0 mls/hr IV .Q0M [facility] Amiodarone HCl 360 mg/ (Dextrose) 200 mls @ 16.67 mls/hr CONT INF .Q12H [facility] Stop: 09/06/18 23:05 Labetalol HCl (Trandate) 10 mg IV Q4H PRN PRN PRN Reason: SBP> 160 or DBP > 120 Last Admin: 09/05/18 17:12 Dose: 10 mg Losartan Potassium (Cozaar) 50 mg PO BID [facility] Last Admin: 09/06/18 10:35 Dose: 50 mg Metoprolol Tartrate (Lopressor (Beta Sixto)) 100 mg PO BID [facility] Last Admin: 09/06/18 10:36 Dose: 100 mg [facility]) [facility] Last Admin: 09/06/18 08:06 Dose: 1 tablet [id number] Ethyl Esters (Lovaza) [facility] Last Admin: 09/06/18 08:06 Dose: 1 gm Potassium Chloride (K-Dur) [facility] Last Admin: 09/06/18 08:06 Dose: 40 meq Psyllium Hydrophilic Mucilloid (Metamucil) 1 packet PO DAILY PRN PRN PRN Reason: Constipation Rivaroxaban (Xarelto) 20 mg PO DAILY@1700 [facility] Last Admin: 09/05/18 17:14 Dose: 20 mg Sodium Chloride () 5 - 15 ml IV UD PRN PRN Reason: SALINE FLUSH Last Admin: 09/05/18 06:31 Dose: 10 ml Medical Necessity - Tobacco Use Smoking Status: Never smoker Assessment/Plan All Active Problems (Last Reviewed 05/05/18 @ 09:09 by Susan Grimm RN) Atrial fibrillation (Acute) Obesity, Class III, BMI 40-49.9 (morbid obesity) (Acute) Anticoagulant long-term use (Acute) Atrial fibrillation with RVR (Acute) CHF exacerbation (Acute) 1. Atrial fibrillation with RVR: * Rate overall better controlled. Still in atrial fibrillation. * Anticoagulated with rivaroxaban. Continue with amiodarone drip and metoprolol. * Cardiology following. Plan is for direct-current cardioversion on the third. 2. HFpEF, acute * likely exacerbated by #1 * EF 55%. Complicated by pulmonary HTN (RVSP 46mmHg). May have RONALDO. Will need outpt PSG. * on furosemide and losartan 3.HTN accelerated * HTN emergency ruled out * improved * continue losartan, furosemide 4. VTE proph: not indicated. Low risk while she is anticoagulated. 5. Disposition: pending DCCV and overall clinical recovery Code Visit Inpatient E&M: 33095 Subs Hosp L2
[2018-09-06] MEDS: Furosemide 40 MG Tablet PO (17:32)
[2018-09-06] MEDS: Rivaroxaban 20 MG Tablet PO (17:32)
[2018-09-06] MEDS: 0.9% NaCl Peripheral Flush Adult/Peds IV ×2 (18:51→21:37)
[2018-09-06] MEDS: Amiodarone 200 MG Tablet PO (18:51)
[2018-09-07] VITALS (16 sets, daily range): BP systolic 110–145; BP diastolic 67–110; PULSE 67–113; RESP 14–18; TEMP 36.4–37.2; O2SAT 94–100
[2018-09-07] MEDS: Amiodarone 200 MG Tablet PO ×2 (05:38→14:53)
--- NOTE | 2018-09-07 05:55 | EKG12_ITS ---
Test Reason : AM EKG Blood Pressure : / mmHG Vent. Rate : 108 BPM Atrial Rate : 156 BPM P-R Int : 000 ms QRS Dur : 082 ms QT Int : 372 ms P-R-T Axes : 000 -40 028 degrees QTc Int : 498 ms Atrial fibrillation with rapid ventricular response Left axis deviation Poor R wave progression Abnormal ECG Confirmed by BATSHEVA SINHA, VERNA ([id number]), editorial director PATRICIA THAPA ([id number] on 09/11/2018 7:02:43 AM Referred By: Shannon De La Cruz Confirmed By:VERNA HERMAN MD
[2018-09-07 06:28] LABS: Anion Gap 4 (5-15); BUN 15 mg/dL (7-18); BUN/Creat Ratio 18.9 RATIO (10-20); Calcium,Total 9.4 mg/dL (8.5-10.1); Chloride 99 mmol/L (98-107); Creatinine, Serum 0.79 mg/dL (0.55-1.02); EST Glomerular Filtration Rate 75 mL/min (>60); Est Glom Filt Rate - Afr Amer 91 mL/min (>60); Estimated Creatinine Clearance 37.24 ml/min; Glucose 130 mg/dL (74-106); Potassium 3.8 mmol/L (3.5-5.1); Sodium Level 139 mmol/L (136-145)
--- NOTE | 2018-09-07 11:14 | NURSING ---
Bedside cardioversion completed by Dr. Romero and Dr Maher with 1 shock at 200 joules utilizing 40mg Propofol. RNs Romain Abreu and Veena Jurado assisting.
--- NOTE | 2018-09-07 11:17 | CARDIOVERS_ITS ---
Cardioversion Cardioversion: DC cardioversion. 73-year-old lady with a history of paroxysmal atrial fibrillation. Who presented with an episode of atrial fibrillation. Patient has not been noted to be taking her anticoagulation. The patient was seen by Dr. Maher of the critical care division and informed consent was obtained. Anterior-posterior pads were applied. The patient was then administered 40 mg of intravenous propofol. 200 J of synchronized DC cardioversion energy were applied with prompt reversal to sinus rhythm. Successful DC cardioversion to sinus rhythm. Plan will be to start patient on amiodarone 200 mg once a day. Patient can be discharged for outpatient follow- up.
--- NOTE | 2018-09-07 11:18 | PCM.PN.CARD ---
Subjectve: Patient seen and evaluated. Patient seen and evaluated. Appears to be doing fairly well still in atrial fibrillation. Objective: Vital Signs Temp Pulse Resp BP Pulse Ox 97.5 F L 68 18 127/84 H 97 09/07/18 08:24 09/07/18 11:15 09/07/18 11:15 09/07/18 11:15 09/07/18 11:15 Oxygen Flow Rate (L/min) 2 Oxygen Delivery Method Nasal Cannula Weight: 207 lb 14.334 oz Body Mass Index (BMI) 39.8 Intake and Output for Last 24 Hours 09/05/18 09/06/18 09/07/18 23:59 23:59 23:59 Intake Total 2147.9 / 2147.9 1654 / 1654 310 / 310 Output Total 3600 / 3600 1800 / 1800 1400 / 1400 Balance -1452.1 / -1452.1 -146 / -146 -1090 / -1090 General: Awake, Alert, Oriented x 3 HEENT: PERRL, EOMI, Sclera Non Icteric Neck: Supple, Good ROM, No Lymph Node Enlargement Lungs: Clear to auscultation Cardiovascular: Irregular Rhythm, Normal S1, Normal S2, No Murmurs, No Rubs, No Gallops Vascular: No Carotid Bruits, Normal Femoral Pulses, Normal Radial Pulses, Normal Dorsalis Pedal Pulse, Normal Posterior Tibial Pulses Abdomen: Bowel Sounds Present, Soft, Non Tender, No HSM, No Organomegaly Extremities: No Cyanosis, No Clubbing, No edema Musculoskeletal: No Erythema Skin: No Rashes Lymphatic: No Lymph Node Enlargement Neurological: No Focal Motor or Sensory Deficit Psych/Mental Status: Appropriate 09/07/18 05:45: Sodium 139, Potassium 3.8, Chloride 99, Carbon Dioxide 36.0 H, Anion Gap 4 L, BUN 15, Creatinine 0.79, Est GFR (MDRD) Af Amer 91, Est GFR (MDRD) Non-Af 75, BUN/Creatinine Ratio 18.9, Glucose 130 H, Calcium 9.4 Rhythm: EKG: ECHO: Stress Test: Cardiac Cath: PCI: CT Surgery: Holter monitor: EPS: PPM: CXR: Chest CT Scan: Medical Necessity - Tobacco Use Smoking Status: Never smoker Assessment/Plan 1. Paroxysmal atrial fibrillation Patient is noted to have paroxysmal atrial for ablation with rapid ventricular response rate. She underwent DC cardioversion this morning. The plan will be for her to remain on her anticoagulation, beta-jarod, and add amiodarone. She will have outpatient follow-up. 2. Hypertension Good control and the plan is to continue patient current medical therapy. Thank you for allowing me to participate in her care.
--- NOTE | 2018-09-07 11:29 | PCM.OP.PRO ---
Procedure Report Date of Procedure: 09/07/18 CONSCIOUS SEDATION REPORT DATE OF SERVICE: September 07, 2018 BRIEF HISTORY OF PRESENT ILLNESS: The patient is a 73-year-old female who was admitted to the hospital on September 04 with an irregular heartbeat. She was subsequently found to be in atrial fibrillation with a rapid ventricular rate. Cardiology was consulted. Surface echocardiogram from September 05 revealed mild concentric LVH with an ejection fraction of 55%. The patient did undergo a previous cardioversion in August 2017, during which time, she was provided with 40 mg of propofol to achieve an appropriate level of sedation. The patient denies a history of obstructive sleep apnea, COPD or asthma. PHYSICAL EXAMINATION: VITAL SIGNS: Reviewed and were acceptable. GENERAL: The patient is an obese female, in no apparent distress, speaking in full sentences. HEENT: Normocephalic, atraumatic. Mucous membranes are moist and pink. Good mouth opening noted. Trachea is midline. CHEST: S1, S2 irregularly irregular. No murmurs, rubs or gallops were noted. LUNGS: Clear to auscultation bilaterally without appreciable wheezes, rales or rhonchi. ABDOMEN: Soft, nontender, nondistended. Positive bowel sounds. EXTREMITIES: There is no clubbing, cyanosis or LE edema. ASA Class: II DESCRIPTION OF PROCEDURE: After confirmation of informed consent, the patient's anesthesia plan was reviewed in detail. Propofol was chosen. Risks and benefits were reviewed and the patient agreed to proceed. At 1105, the patient was given 40 mg of propofol. The patient achieved an appropriate level of sedation and was given a 200 joule synchronized cardioversion by Dr. Romero at the bedside. This was successful in achieving normal sinus rhythm. The patient was monitored until 1112, at which time she reached her baseline mental status and function. The patient tolerated the procedure well. COMPLICATIONS: None ESTIMATED BLOOD LOSS: None RECOMMENDATIONS: Okay to recover in usual fashion. Code Visit [id number]: Other Procedure See Report - [id number]
[2018-09-07] MEDS: Furosemide 40 MG Tablet PO (11:36)
[2018-09-07] MEDS: Losartan Potassium 50 MG Tablet PO (11:36)
[2018-09-07] MEDS: Metoprolol Tartrate 100 MG Tablet PO (11:36)
[2018-09-07] MEDS: Omega-3 Acid Ethyl Esters 1 GM Capsule PO (11:36)
[2018-09-07] MEDS: Multivitamins,Therapeutic Tablet 1 TABLET PO (11:36)
[2018-09-07] MEDS: amLODIPine 5 MG Tablet PO (11:36)
--- NOTE | 2018-09-07 11:39 | PCM.DC ---
- Discharge Diagnoses Current Active Problems: Current Active and Chronic Problems (Last Reviewed 05/05/18 @ 09:09 by Susan Grimm RN) Hypertension (Chronic) Atrial fibrillation with RVR (Acute) CHF exacerbation (Acute) Morbid obesity (Chronic) You will use the following diet at home:: Calorie/Carbohydrate Controlled (specify 1200, 1400, etc) - 1800 [place] /day, Cardiac - 2-3 g sodium / day Your food should be the consistency of: Regular Your liquids should be the consistency of: Regular/Thin Discharge Activity: Return to Normal Activity Allergies/Adverse Reactions: Allergies azithromycin Allergy (Verified 09/04/18 15:42) Angioedema vitamin A [From Aquasol A] Allergy (Verified 09/04/18 15:42) Rash lisinopril Adverse Reaction (Verified 09/04/18 16:18) Other Medications to take at Discharge Multivitamins,Therapeutic [Multivitamin] 1 tablet PO DAILY 08/18/17 Rivaroxaban [Xarelto] 20 mg PO DAILY 05/05/18 Cholecalciferol (Vitamin D3) [Vitamin D3] 2,000 unit PO DAILY 09/04/18 Marion-3 Fatty Acids [Marion-3] 2,000 mg PO DAILY 09/04/18 Valsartan [Diovan] 160 mg PO DAILY 09/04/18 Amiodarone HCl [Cordarone] 200 mg PO TID #54 tablet 09/07/18 Amlodipine [Norvasc] 5 mg PO DAILY #30 tablet 09/07/18 Furosemide [Lasix] 40 mg PO BID@1000,1800 #60 tablet 09/07/18 Metoprolol Tartrate [Lopressor (beta jarod)] 100 mg PO BID #60 tablet 09/07/18 Potassium Chloride [K-Dur] 40 meq PO DAILYCM #60 tablet 09/07/18 The following prescriptions were given: Amiodarone HCl [Cordarone] 200 mg PO TID #54 tablet Amlodipine [Norvasc] 5 mg PO DAILY #30 tablet Furosemide [Lasix] 40 mg PO BID@1000,1800 #60 tablet Metoprolol Tartrate [Lopressor (beta jarod)] 100 mg PO BID #60 tablet Potassium Chloride [K-Dur] 40 meq PO DAILYCM #60 tablet Primary Care Physician: Chip Santos [Primary Care Provider] - Please follow up with your Primary Care Physician in: 1-2 weeks Test Results: Test results from this visit will be discussed in further detail at your follow-up appointment, if applicable. Please Follow Up With: Miah Asher MD When: as directed Please Follow Up With: [facility] When: as directed Please Follow Up With: Arsalan Maher DO - [facility] When: 1-2 weeks Proposed Discharge Date: 09/07/18
--- NOTE | 2018-09-07 11:42 | DCINST_ITS ---
- Discharge Diagnoses Current Active Problems: Current Active and Chronic Problems (Last Reviewed 05/05/18 @ 09:09 by Susan Grimm RN) Hypertension (Chronic) Atrial fibrillation with RVR (Acute) CHF exacerbation (Acute) Morbid obesity (Chronic) You will use the following diet at home:: Calorie/Carbohydrate Controlled (specify 1200, 1400, etc) - 1800 [place] /day, Cardiac - 2-3 g sodium / day Your food should be the consistency of: Regular Your liquids should be the consistency of: Regular/Thin Discharge Activity: Return to Normal Activity Allergies/Adverse Reactions: Allergies azithromycin Allergy (Verified 09/04/18 15:42) Angioedema vitamin A [From Aquasol A] Allergy (Verified 09/04/18 15:42) Rash lisinopril Adverse Reaction (Verified 09/04/18 16:18) Other Medications to take at Discharge Multivitamins,Therapeutic [Multivitamin] 1 tablet PO DAILY 08/18/17 Rivaroxaban [Xarelto] 20 mg PO DAILY 05/05/18 Cholecalciferol (Vitamin D3) [Vitamin D3] 2,000 unit PO DAILY 09/04/18 [place]-3 Fatty Acids [[place]-3] 2,000 mg PO DAILY 09/04/18 Valsartan [Diovan] 160 mg PO DAILY 09/04/18 Amiodarone HCl [Cordarone] 200 mg PO TID #54 tablet 09/07/18 Amlodipine [Norvasc] 5 mg PO DAILY #30 tablet 09/07/18 Furosemide [Lasix] 40 mg PO BID@1000,1800 #60 tablet 09/07/18 Metoprolol Tartrate [Lopressor (beta jarod)] 100 mg PO BID #60 tablet 09/07/18 Potassium Chloride [K-Dur] 40 meq PO DAILYCM #60 tablet 09/07/18 The following prescriptions were given: Amiodarone HCl [Cordarone] 200 mg PO TID #54 tablet Amlodipine [Norvasc] 5 mg PO DAILY #30 tablet Furosemide [Lasix] 40 mg PO BID@1000,1800 #60 tablet Metoprolol Tartrate [Lopressor (beta jarod)] 100 mg PO BID #60 tablet Potassium Chloride [K-Dur] 40 meq PO DAILYCM #60 tablet Primary Care Physician: Chip Santos [Primary Care Provider] - Please follow up with your Primary Care Physician in: 1-2 weeks Test Results: Test results from this visit will be discussed in further detail at your follow- up appointment, if applicable. Please Follow Up With: Miah Asher MD When: as directed Please Follow Up With: [facility] When: as directed Please Follow Up With: Arsalan Maher DO - [facility] When: 1-2 weeks Proposed Discharge Date: 09/07/18
--- NOTE | 2018-09-07 11:57 | CASEMGMT ---
Addendum entered by Sandra Llanos 09/07/18 15:08: Referral with [facility] faxed to [facility] and Bridget at [facility] voices confirmation that fax received at this time. Angelo ROLDAN CM Original Note: This RN CM to room to speak with pt regarding therapy recommendation for additional therapy at discharge. Pt declines HHC and OP therapy at this time and is aware that if needed once home, she can call PCP, voices understanding. Pt states no preference for DME but states 'I don't really like [employer].' This RN CM to follow for home oxygen testing and pt is agreeable to [facility], if needed. Pt voices no further questions/concerns/needs at this time. Angelo ROLDAN CM
--- NOTE | 2018-09-07 12:46 | PCM.DC.SUM ---
<Oskar Elizabeth - Last Filed: 09/07/18 12:46> Discharge Date and Diagnosis - Problem List Patient Problems: Active and Suspected Problems (Last Reviewed 05/05/18 @ 09:09 by Susan Grimm RN) Atrial fibrillation with RVR (Acute) CHF exacerbation (Acute) Date of Admission: 09/04/18 Date of Discharge: 09/07/18 - Primary Discharge Diagnosis Active and Suspected Problems (Last Reviewed 05/05/18 @ 09:09 by Susan Grimm RN) Atrial fibrillation with RVR (Acute) Acute diastolic CHF exacerbation (Acute) Pulmonary HTN s/p cardioversion HTN emergency morbid obesity hx breast cancer s/p rads and mastectomy Suspected RONALDO - Secondary Discharge Diagnosis Chronic Problems (Last Reviewed 05/05/18 @ 09:09 by Susan Grimm RN) Hypertension (Chronic) Malignant neoplasm of left breast, estrogen receptor positive (Chronic) Type 2 diabetes mellitus without complication (Chronic) Morbid obesity (Chronic) Hospital Course and Treatment Imaging Results: RAD/Chest PA and Lateral IMPRESSION: No active disease. Echo: Interpretation Summary The study was technically difficult. Left ventricular systolic function is normal. The estimated ejection fraction is 55 %. Mild concentric left ventricular hypertrophy. The left atrium is moderately enlarged. The right atrium is mildly enlarged. Mild focal mitral valve calcification of the anterior leaflet. Mild (1+) eccentric mitral valve insufficiency. Moderate (2+) eccentric tricuspid valve insufficiency. Right ventricular systolic pressure estimated to be 46 mmHg. Unable to assess diastolic dysfunction. Consults: [place]/Nick - Cardiology Operations: None Procedures: 2-D Echocardiogram, Cardioversion Summary of Care Provided: Hospital Course: The patient is a 73 year old F with pmhx of pAfib, diastolic CHF, morbid obesity, and htn who presented to the ER after being sent from her PCP's office for irregular heart rate. She was found to have Afib with RVR, SOB and LE edema c/w acute CHF, as well as severely elevated blood pressure of 176/122. She was admitted to the PCU for Afib with RVR and associated diastolic CHF exacerbation. The patient had already been on xarelto as an outpatient. Heart rate failed to improve with metoprolol and amiodarone. Cardiology was consulted. Echo was obtained and showed preserved EF, RVSP 46mmHg, 2+ TVI. She was diuresed >2500 cc with improvement in her breathing. Eventually she underwent a cardioversion - completed succesfully on 09/07/2018. She will continue xarelto, metoprolol, and an amiodarone taper. Lastly she had a right upper extremity ultrasound of a mass that was giving her pain and limiting her ROM. The results are pending at this time. She was discharged home in stable condition. We recommended ongoing therapy with home care, however she refused. She was discharged home in stable condition. She will need follow up with cardiology in 1-2 weeks, and her PCP in 1-2 weeks. additionally, I have asked her to follow up with pulmonology in 1-2 weeks as she is at high risk of sleep apnea and has underlying pulmonary htn. She may follow up with her oncologists as previously directed. This patient was seen by Oskar Elizabeth PA-C under the supervision of Dr. Myers. [] Patient Problems: Active and Suspected Problems (Last Reviewed 05/05/18 @ 09:09 by Susan Grimm RN) Atrial fibrillation with RVR (Acute) CHF exacerbation (Acute) - Physical Exam General: Alert, Oriented x3, Cooperative HEENT: Atraumatic, PERRLA, EOMI, Normocephalic Neck: Supple, No JVD, Negative Carotid Bruits Lungs: Clear to auscultation, Diminished Cardiovascular: Regular rate, No murmurs Abdomen: Bowel Sounds Present, Soft, Non Tender Extremities: Capillary Refill Less than 3 Seconds, Edema Skin: No rashes, No breakdown Musculoskeletal: No Tenderness to Palpation of Joints or Extremities Neurological: Cranial nerves II-XII grossly intact Psych/Mental Status: Normal Affect, Appropriate, Alert and oriented to time, place, person, mood and affect Vital Signs Temp Pulse Resp BP Pulse Ox 97.5 F L 68 16 135/86 H 100 09/07/18 08:24 09/07/18 12:00 09/07/18 11:30 09/07/18 12:00 09/07/18 11:45 Oxygen Flow Rate (L/min) 2 Oxygen Delivery Method Nasal Cannula Weight: 207 lb 14.334 oz Body Mass Index (BMI) 39.8 Intake and Output for Last 24 Hours 09/05/18 09/06/18 09/07/18 23:59 23:59 23:59 Intake Total 2147.9 / 2147.9 1654 / 1654 385 / 385 Output Total 3600 / 3600 1800 / 1800 1550 / 1550 Balance -1452.1 / -1452.1 -146 / -146 -1165 / -1165 Laboratory Tests Past 24 Hrs 09/07/18 05:45 Sodium 139 Potassium 3.8 Chloride 99 Carbon Dioxide 36.0 H Anion Gap 4 L BUN 15 Creatinine 0.79 Estim Creat Clear Calc 37.24 Est GFR (MDRD) Af Amer 91 Est GFR (MDRD) Non-Af 75 BUN/Creatinine Ratio 18.9 Glucose 130 H Calcium 9.4 Discharge Diet: Low fat/ Low Cholesterol, 2000 mg Sodium Diet Discharge Activity: Return to Normal Activity Home Medications: Medications to take at Discharge Multivitamins,Therapeutic [Multivitamin] 1 tablet PO DAILY 08/18/17 Rivaroxaban [Xarelto] 20 mg PO DAILY 05/05/18 Cholecalciferol (Vitamin D3) [Vitamin D3] 2,000 unit PO DAILY 09/04/18 [place]-3 Fatty Acids [[place]-3] 2,000 mg PO DAILY 09/04/18 Valsartan [Diovan] 160 mg PO DAILY 09/04/18 Amiodarone HCl [Cordarone] 200 mg PO TID #54 tablet 09/07/18 Amlodipine [Norvasc] 5 mg PO DAILY #30 tablet 09/07/18 Furosemide [Lasix] 40 mg PO BID@1000,1800 #60 tablet 09/07/18 Metoprolol Tartrate [Lopressor (beta jarod)] 100 mg PO BID #60 tablet 09/07/18 Potassium Chloride [K-Dur] 40 meq PO DAILYCM #60 tablet 09/07/18 Following Prescrptions Were Given to Patient: Amiodarone HCl [Cordarone] 200 mg PO TID #54 tablet Amlodipine [Norvasc] 5 mg PO DAILY #30 tablet Furosemide [Lasix] 40 mg PO BID@1000,1800 #60 tablet Metoprolol Tartrate [Lopressor (beta jarod)] 100 mg PO BID #60 tablet Potassium Chloride [K-Dur] 40 meq PO DAILYCM #60 tablet Primary Care Physician: Chip Santos [Primary Care Provider] - Please follow up with your Primary Care Physician in: 1-2 weeks Please Follow Up With: Miah Asher MD When: as directed Please Follow Up With: [facility] When: as directed Please Follow Up With: Arsalan Maher DO When: 1-2 weeks (soonest available) Please Follow Up With: Chip Santos MD Medical Necessity - Tobacco Use Smoking Status: Never smoker Meaningful Use Info Meaningful Use Diagnoses (Choose all that apply): CHF - CHF REINALDO/ARB ordered at discharge?: Yes Documented LVEF (%): 55 <Andrew Myers - Last Filed: 09/07/18 14:32> Discharge Date and Diagnosis - Primary Discharge Diagnosis Active and Suspected Problems (Last Reviewed 05/05/18 @ 09:09 by Susan Grimm, JAMAR) Atrial fibrillation with RVR (Acute) CHF exacerbation (Acute) - Secondary Discharge Diagnosis Chronic Problems (Last Reviewed 05/05/18 @ 09:09 by Susan Grimm RN) Hypertension (Chronic) Malignant neoplasm of left breast, estrogen receptor positive (Chronic) Type 2 diabetes mellitus without complication (Chronic) Morbid obesity (Chronic) Hospital Course and Treatment Imaging Results: 09/07/18 12:56 Extremity Non Vasc Limited [[place]] Urgent Summary of Care Provided: This patient was seen in conjunction with Oskar Elizabeth PA-C . I have independently interviewed and examined the patient and reviewed pertinent historical, laboratory, and other data. Please refer to Oskar Elizabeth PA-C note for details of this patient's presentation, findings, and recommendations. I have reviewed Oskar Elizabeth PA-C note and concur with documented findings. In brief, patient is a 73-year-old lady with multiple comorbidities admitted with shortness of breath and irregular heart rate. Patient was found to be in A. fib with RVR admitted to a monitored bed for subsequent management. Patient underwent cardioversion on 09/07/2018 GENERAL: cooperative HEENT: Atraumatic; moist oral mucosa EYES; Anicteric, Normal Conjunctiva NECK; supple, normal thyroid, no distended JVD. RESPIRATORY: Diminished to auscultation bilaterally, CARDIOVASCULAR: Regular S1 S2, NEURO: Awake; no lateralizing signs. SKIN: No Rash PSYCH; Normal affect Hospital course: As documented above by Oskar Elizabeth PA-C - Physical Exam Vital Signs Temp Pulse Resp BP Pulse Ox 97.5 F L 72 16 135/91 H 94 09/07/18 08:24 09/07/18 13:00 09/07/18 11:30 09/07/18 13:00 09/07/18 13:18 Oxygen Flow Rate (L/min) [ 0 AMBULATING on Room Air] Oxygen Flow Rate (L/min) 2 Oxygen Delivery Method Room Air Weight: 94.3 kg Body Mass Index (BMI) 39.8 Intake and Output for Last 24 Hours 09/05/18 09/06/18 09/07/18 23:59 23:59 23:59 Intake Total 2147.9 / 2147.9 1654 / 1654 385 / 385 Output Total 3600 / 3600 1800 / 1800 1550 / 1550 Balance -1452.1 / -1452.1 -146 / -146 -1165 / -1165 Laboratory Tests Past 24 Hrs 09/07/18 05:45 Sodium 139 Potassium 3.8 Chloride 99 Carbon Dioxide 36.0 H Anion Gap 4 L BUN 15 Creatinine 0.79 Estim Creat Clear Calc 37.24 Est GFR (MDRD) Af Amer 91 Est GFR (MDRD) Non-Af 75 BUN/Creatinine Ratio 18.9 Glucose 130 H Calcium 9.4 Code Visit Inpatient E&M: 40064 Disch Hosp
--- NOTE | 2018-09-07 12:52 | DS.PCM_ITS ---
Addendum entered and electronically signed by BARBI Bobo 09/07/18 14:52: Code Visit Addendum: pt will require home O2 at night, she had 2 hours of overnight hypoxia <80%, as well as 30 events where she was apneic for >60 seconds according to her overnight trending pulse ox evaluation. Original Note: <Oskar Elizabeth - Last Filed: 09/07/18 12:46> Discharge Date and Diagnosis - Problem List Patient Problems: Active and Suspected Problems (Last Reviewed 05/05/18 @ 09:09 by Susan Grimm RN) Atrial fibrillation with RVR (Acute) CHF exacerbation (Acute) Date of Admission: 09/04/18 Date of Discharge: 09/07/18 - Primary Discharge Diagnosis Active and Suspected Problems (Last Reviewed 05/05/18 @ 09:09 by Susan Grimm RN) Atrial fibrillation with RVR (Acute) Acute diastolic CHF exacerbation (Acute) Pulmonary HTN s/p cardioversion HTN emergency morbid obesity hx breast cancer s/p rads and mastectomy Suspected RONALDO - Secondary Discharge Diagnosis Chronic Problems (Last Reviewed 05/05/18 @ 09:09 by Susan Grimm RN) Hypertension (Chronic) Malignant neoplasm of left breast, estrogen receptor positive (Chronic) Type 2 diabetes mellitus without complication (Chronic) Morbid obesity (Chronic) Hospital Course and Treatment Imaging Results: RAD/Chest PA and Lateral IMPRESSION: No active disease. Echo: Interpretation Summary The study was technically difficult. Left ventricular systolic function is normal. The estimated ejection fraction is 55 %. Mild concentric left ventricular hypertrophy. The left atrium is moderately enlarged. The right atrium is mildly enlarged. Mild focal mitral valve calcification of the anterior leaflet. Mild (1+) eccentric mitral valve insufficiency. Moderate (2+) eccentric tricuspid valve insufficiency. Right ventricular systolic pressure estimated to be 46 mmHg. Unable to assess diastolic dysfunction. Consults: [place]/Nick - Cardiology Operations: None Procedures: 2-D Echocardiogram, Cardioversion Summary of Care Provided: Hospital Course: The patient is a 73 year old F with pmhx of pAfib, diastolic CHF, morbid obesity, and htn who presented to the ER after being sent from her PCP's office for irregular heart rate. She was found to have Afib with RVR, SOB and LE edema c/w acute CHF, as well as severely elevated blood pressure of 176/122. She was admitted to the PCU for Afib with RVR and associated diastolic CHF exacerbation. The patient had already been on xarelto as an outpatient. Heart rate failed to improve with metoprolol and amiodarone. Cardiology was consulted. Echo was obtained and showed preserved EF, RVSP 46mmHg, 2+ TVI. She was diuresed >2500 cc with improvement in her breathing. Eventually she underwent a cardioversion - completed succesfully on 09/07/2018. She will continue xarelto, metoprolol, and an amiodarone taper. Lastly she had a right upper extremity ultrasound of a mass that was giving her pain and limiting her ROM. The results are pending at this time. She was discharged home in stable condition. We recommended ongoing therapy with home care, however she refused. She was discharged home in stable condition. She will need follow up with cardiology in 1-2 weeks, and her PCP in 1-2 weeks. additionally, I have asked her to follow up with pulmonology in 1-2 weeks as she is at high risk of sleep apnea and has underlying pulmonary htn. She may follow up with her oncologists as previously directed. This patient was seen by Oskar Elizabeth PA-C under the supervision of Dr. Myers. [] Patient Problems: Active and Suspected Problems (Last Reviewed 05/05/18 @ 09:09 by Susan Grimm RN) Atrial fibrillation with RVR (Acute) CHF exacerbation (Acute) - Physical Exam General: Alert, Oriented x3, Cooperative HEENT: Atraumatic, PERRLA, EOMI, Normocephalic Neck: Supple, No JVD, Negative Carotid Bruits Lungs: Clear to auscultation, Diminished Cardiovascular: Regular rate, No murmurs Abdomen: Bowel Sounds Present, Soft, Non Tender Extremities: Capillary Refill Less than 3 Seconds, Edema Skin: No rashes, No breakdown Musculoskeletal: No Tenderness to Palpation of Joints or Extremities Neurological: Cranial nerves II-XII grossly intact Psych/Mental Status: Normal Affect, Appropriate, Alert and oriented to time, place, person, mood and affect Vital Signs Temp Pulse Resp BP Pulse Ox 97.5 F L 68 16 135/86 H 100 09/07/18 08:24 09/07/18 12:00 09/07/18 11:30 09/07/18 12:00 09/07/18 11:45 Oxygen Flow Rate (L/min) 2 Oxygen Delivery Method Nasal Cannula Weight: 207 lb 14.334 oz Body Mass Index (BMI) 39.8 Intake and Output for Last 24 Hours 09/05/18 09/06/18 09/07/18 23:59 23:59 23:59 Intake Total 2147.9 / 2147.9 1654 / 1654 385 / 385 Output Total 3600 / 3600 1800 / 1800 1550 / 1550 Balance -1452.1 / -1452.1 -146 / -146 -1165 / -1165 Laboratory Tests Past 24 Hrs 09/07/18 05:45 Sodium 139 Potassium 3.8 Chloride 99 Carbon Dioxide 36.0 H Anion Gap 4 L BUN 15 Creatinine 0.79 Estim Creat Clear Calc 37.24 Est GFR (MDRD) Af Amer 91 Est GFR (MDRD) Non-Af 75 BUN/Creatinine Ratio 18.9 Glucose 130 H Calcium 9.4 Discharge Diet: Low fat/ Low Cholesterol, 2000 mg Sodium Diet Discharge Activity: Return to Normal Activity Home Medications: Medications to take at Discharge Multivitamins,Therapeutic [Multivitamin] 1 tablet PO DAILY 08/18/17 Rivaroxaban [Xarelto] 20 mg PO DAILY 05/05/18 Cholecalciferol (Vitamin D3) [Vitamin D3] 2,000 unit PO DAILY 09/04/18 [place]-3 Fatty Acids [[place]-3] 2,000 mg PO DAILY 09/04/18 Valsartan [Diovan] 160 mg PO DAILY 09/04/18 Amiodarone HCl [Cordarone] 200 mg PO TID #54 tablet 09/07/18 Amlodipine [Norvasc] 5 mg PO DAILY #30 tablet 09/07/18 Furosemide [Lasix] 40 mg PO BID@1000,1800 #60 tablet 09/07/18 Metoprolol Tartrate [Lopressor (beta jarod)] 100 mg PO BID #60 tablet 09/07/18 Potassium Chloride [K-Dur] 40 meq PO DAILYCM #60 tablet 09/07/18 Following Prescrptions Were Given to Patient: Amiodarone HCl [Cordarone] 200 mg PO TID #54 tablet Amlodipine [Norvasc] 5 mg PO DAILY #30 tablet Furosemide [Lasix] 40 mg PO BID@1000,1800 #60 tablet Metoprolol Tartrate [Lopressor (beta jarod)] 100 mg PO BID #60 tablet Potassium Chloride [K-Dur] 40 meq PO DAILYCM #60 tablet Primary Care Physician: Chip Santos [Primary Care Provider] - Please follow up with your Primary Care Physician in: 1-2 weeks Please Follow Up With: Miah Asher MD When: as directed Please Follow Up With: [facility] When: as directed Please Follow Up With: Arsalan Maher DO When: 1-2 weeks (soonest available) Please Follow Up With: Chip Santos MD Medical Necessity - Tobacco Use Smoking Status: Never smoker Meaningful Use Info Meaningful Use Diagnoses (Choose all that apply): CHF - CHF REINALDO/ARB ordered at discharge?: Yes Documented LVEF (%): 55 <Andrew Myers - Last Filed: 09/07/18 14:32> Discharge Date and Diagnosis - Primary Discharge Diagnosis Active and Suspected Problems (Last Reviewed 05/05/18 @ 09:09 by Susan Grimm RN) Atrial fibrillation with RVR (Acute) CHF exacerbation (Acute) - Secondary Discharge Diagnosis Chronic Problems (Last Reviewed 05/05/18 @ 09:09 by Susan Grimm RN) Hypertension (Chronic) Malignant neoplasm of left breast, estrogen receptor positive (Chronic) Type 2 diabetes mellitus without complication (Chronic) Morbid obesity (Chronic) Hospital Course and Treatment Imaging Results: 09/07/18 12:56 Extremity Non Vasc Limited [US] Urgent Summary of Care Provided: This patient was seen in conjunction with Oskar Elizabeth PA-C . I have independently interviewed and examined the patient and reviewed pertinent historical, laboratory, and other data. Please refer to Oskar Elizabeth PA-C note for details of this patient's presentation, findings, and recommendations. I have reviewed Oskar Elizabeth PA-C note and concur with documented findings. In brief, patient is a 73-year-old lady with multiple comorbidities admitted with shortness of breath and irregular heart rate. Patient was found to be in A. fib with RVR admitted to a monitored bed for subsequent management. Patient underwent cardioversion on 09/07/2018 GENERAL: cooperative HEENT: Atraumatic; moist oral mucosa EYES; Anicteric, Normal Conjunctiva NECK; supple, normal thyroid, no distended JVD. RESPIRATORY: Diminished to auscultation bilaterally, CARDIOVASCULAR: Regular S1 S2, NEURO: Awake; no lateralizing signs. SKIN: No Rash PSYCH; Normal affect Hospital course: As documented above by Oskar Elizabeth PA-C - Physical Exam Vital Signs Temp Pulse Resp BP Pulse Ox 97.5 F L 72 16 135/91 H 94 09/07/18 08:24 09/07/18 13:00 09/07/18 11:30 09/07/18 13:00 09/07/18 13:18 Oxygen Flow Rate (L/min) [ 0 AMBULATING on Room Air] Oxygen Flow Rate (L/min) 2 Oxygen Delivery Method Room Air Weight: 94.3 kg Body Mass Index (BMI) 39.8 Intake and Output for Last 24 Hours 09/05/18 09/06/18 09/07/18 23:59 23:59 23:59 Intake Total 2147.9 / 2147.9 1654 / 1654 385 / 385 Output Total 3600 / 3600 1800 / 1800 1550 / 1550 Balance -1452.1 / -1452.1 -146 / -146 -1165 / -1165 Laboratory Tests Past 24 Hrs 09/07/18 05:45 Sodium 139 Potassium 3.8 Chloride 99 Carbon Dioxide 36.0 H Anion Gap 4 L BUN 15 Creatinine 0.79 Estim Creat Clear Calc 37.24 Est GFR (MDRD) Af Amer 91 Est GFR (MDRD) Non-Af 75 BUN/Creatinine Ratio 18.9 Glucose 130 H Calcium 9.4 Code Visit Inpatient E&M: 17277 Disch Hosp
--- NOTE | 2018-09-07 12:56 | US_ITS ---
STUDY: SUPERFICIAL ULTRASOUND - RIGHT UPPER ARM. REASON FOR EXAM: Female, 73 years old. Palpable abnormality along the posterior lateral aspect of the right upper arm. TECHNIQUE: A superficial ultrasound was performed with real-time and static coronel-scale imaging. COMPARISON: None. FINDINGS: Imaging of the clinically indicated area was performed. No solid or cystic mass lesion is seen. US/Ext Non Vasc Limited/Soft Tiss IMPRESSION: No focal abnormality is seen. Electronically Signed: Crescencio Barreto, at 14:27 EDT , Service support ,
[2018-09-07] MEDS: Acetaminophen 325 MG Tablet 650 MG PO (14:59)
--- NOTE | 2018-09-08 14:01 | CASEMGMT ---
Case Management DC F/u Call DC Date: 09/07/18 Lace/Strata: 12/ -Afib/CHF with Home O2 at Night Called patient on her cell phone listed in Demographics, confirmed was patient and introduced self. Patient states has been doing okay since DC home and a little out of energy today. Received Home Oxygen last night and was able to wear it, denies issues or concerns with her DC Instructions, Medications or F/u. States that she did get her medications filled and has an appointment with the Face Painter Dr Ashre. Malik Horner, RNCM
== END 2018-09-07 16:26 | disposition home or self-care (01) | DRG 308 ==
LOC: ED 17:03 → PCU 23:13
PROVIDERS: Internal Medicine Cardiovascular Disease; Physician Assistant; Admitting Provider Internal Medicine; Emergency Provider Emergency Medicine; Family Provider Family Medicine; Referring Provider Internal Medicine; Visit Provider Internal Medicine
DX: I48.0 Paroxysmal atrial fibrillation (principal); I50.33 Acute on chronic diastolic (congestive) heart failure; I16.1 Hypertensive emergency; Z68.41 Body mass index [BMI] 40.0-44.9, adult; I11.0 Hypertensive heart disease with heart failure; I27.20 Pulmonary hypertension, unspecified; E66.01 Morbid (severe) obesity due to excess calories; Z85.3 Personal history of malignant neoplasm of breast; Z79.02 Long term (current) use of antithrombotics/antiplatelets; E11.9 Type 2 diabetes mellitus without complications; I25.2 Old myocardial infarction; M19.90 Unspecified osteoarthritis, unspecified site; Z79.899 Other long term (current) drug therapy
CPT/HCPCS: 36415; 71046; 76882; 80048; 80061; 83880; 84484; 85025; 92960; 93005; 93306; 94762; 97116; 97162; 97165; 97530; 99285; J7040; A4216; J1940

== ENCOUNTER → 2018-10-02 | Outpatient (CLI) | payer MEDICARE, OTHER, SELFPAY ==
[2018-05-05 09:09] VITALS: BMI 41.5
[2018-10-02 11:31] VITALS: BMI 39.2
[2018-10-02 13:18] LABS: Thyroid Stim Hormone (TSH) 1.09 uIU/mL (0.358-3.74)
== END | disposition home or self-care (01) ==
LOC: LAB 12:34
PROVIDERS: Family Provider Family Medicine; Referring Provider Internal Medicine Cardiovascular Disease; Visit Provider Internal Medicine Cardiovascular Disease
DX: I10 Essential (primary) hypertension (principal)
CPT/HCPCS: 36415; 84443

== ENCOUNTER → 2018-11-05 | Outpatient (CLI) | payer MEDICARE, OTHER, SELFPAY ==
[2018-05-05 09:09] VITALS: BMI 41.5
[2018-09-22 10:34] VITALS: BMI 38.7
== END | disposition home or self-care (01) ==
LOC: SL 20:06
PROVIDERS: Family Provider Family Medicine; Referring Provider Internal Medicine Critical Care Medicine; Visit Provider Internal Medicine Critical Care Medicine
DX: G47.33 Obstructive sleep apnea (adult) (pediatric) (principal)
CPT/HCPCS: 95811

== ENCOUNTER 2018-11-30 10:54 | Day surgery (SDC) | payer MEDICARE, OTHER, SELFPAY ==
[2018-05-05 09:09] VITALS: BMI 41.5
[2018-11-03 12:49] VITALS: BMI 39.4
--- NOTE | 2018-11-30 08:04 | HP.PCM_ITS ---
History and Physical Date of Admission: 11/30/18 [facility] History of Present Illness Details: JOEY CARMICHAEL is a pleasant 73-year-old lady with a history of congestive heart failure, hypertension, atrial fibrillation status post cardioversion on 09/07/2018, obesity, obstructive sleep apnea with oxygen, and diabetes type 2. At last office appointment on 10/02/2018 she was noted to be in atrial fibrillation with RVR at a rate of 150 bpm. She was started on amiodarone 200 mg p.o. twice daily. She presents to office on 11/03/2018 for further follow-up. She denied chest, arm, jaw, or neck discomfort. Her exercise tolerance is stable. She denies symptoms of palpitations, lightheadedness, dizziness, near syncope, or syncopal episodes. She states her SOB has improved since last office visit. She denies worsening edema or claudication issues. She states her edema is improving. She denies PND, blood in urine, myalgia, or unexplainable fatigue. She states sleeping in a recliner d/t right shoulder pain. She states blood in stool and is scheduling an outpatient colonoscopy in the future. She states with last DCCV she noticed feeling more energy and less SOB for about a week. Intake Vital Signs: See EMR Intake Visit Reasons: DCCV Merchandise Presentation Manager Required: No Accompanied by: none Is patient in pain?: No Allergies azithromycin Allergy (Verified 11/03/18 13:27) Angioedema vitamin A [From Aquasol A] Allergy (Verified 11/03/18 13:27) Rash lisinopril Adverse Reaction (Verified 11/03/18 13:27) Other Medications Multivitamins,Therapeutic [Multivitamin] 1 tab PO DAILY 08/18/17 [History Confirmed 11/03/18] Cholecalciferol (Vitamin D3) [Vitamin D3] 2,000 unit PO DAILY 09/04/18 [History Confirmed 11/03/18] Stanley-3 Fatty Acids [Stanley-3] 2,000 mg PO DAILY 09/04/18 [History Confirmed 11/03/18] Valsartan [Diovan] 160 mg PO DAILY 09/04/18 [History Confirmed 11/03/18] Metoprolol Tartrate [Lopressor (beta jarod)] 100 mg PO BID #60 tab 09/07/18 [Rx Confirmed 11/03/18] furosemide 40 mg tablet 40 mg PO DAILY #60 tab 10/02/18 [Rx Confirmed 11/03/18] amiodarone 200 mg tablet 200 mg PO DAILY tab 11/03/18 [History] levofloxacin 500 mg tablet 500 mg PO DAILY 11/03/18 [History Confirmed 11/03/18] rivaroxaban 20 mg tablet 20 mg PO DAILY 11/03/18 [History Confirmed 11/03/18] [facility] Medical History (Updated 11/03/18 @ 12:49 by KAMILA RoblesC) Breast cancer, left (Acute) Epistaxis (Acute) History of hysterectomy (Acute) Hyperglycemia (Acute) Inferior MD (Acute) Migraines (Acute) Osteoarthritis (Acute) Type 2 diabetes mellitus (Acute) left axillary lymph node biopsy (Acute) Knee pain, chronic (Chronic) Surgical History (Updated 09/07/18 @ 11:33 by Arsalan Maher DO) History of appendectomy (Acute) History of bilateral knee replacement (Acute) History of breast biopsy (Acute) History of lumpectomy of left breast (Acute) History of tonsillectomy (Acute) History of tubal ligation (Acute) Family History Unknown No problems noted. Mother Breast cancer Grandmother Breast cancer Sister Breast cancer Uterine cancer Sister Breast cancer Aunt Breast cancer Daughter Uterine cancer Social History (Updated 11/03/18 @ 16:02 by Juan Alberto Wilhelm NP-Madiha) Smoking Status: Never smoker second hand exposure: No alcohol intake: never substance use type: does not use ROS Const Const: Negative for fatigue, weakness, body ache, fever(s) or chills ENT ENT: Negative for dizziness Cardio Chest Pain: No Palpitations: No Edema: None Muscle aches with walking: None Resp Respiratory: Positive for SOB with activity (improving); negative for SOB at rest, SOB orthopnea\SOB lying down or paroxysmal nocturnal dyspnea GI GI: Positive for other (home stool test positive.); negative nausea, vomiting blood/hematemesis, bright, red blood in stools or black,tarry stools : Negative for hematuria or frequent nighttime urination/ nocturia Musc Musc: Negative for muscle aches/ myalgia Skin Skin: Negative non-healing lesions or rash Neuro Neuro: Negative for dizziness, lightheadedness, near syncope, syncope, orthostatic symptoms or weakness Endo Endo: Negative for fatigue Allergy Allergy/Immunology: Negative for rash Cardiology Exam Const Appearance: cooperative, healthy appearing, comfortable and no acute distress Nutritional Appearance: average body habitus and well nourished Orientation: alert, awake and oriented x3 Head Head: normal to inspection Ears: hearing grossly normal bilaterally Nose: external nose normal Face and Sinus: face symmetric Mouth: oral mucosae normal Eyes General: appearance normal, both eyes and all related structures Eyelids: eyelids normal EOM: EOM intact bilaterally Neck Neck: normal visual inspection and no JVD Carotids: normal carotid upstroke Chest Chest inspection: normal inspection of the chest, symmetric chest movement and normal respiratory effort; negative cough Auscultation: Bilateral: Clear to Auscultation Cardio Palpation: normal PMI Rate: regular rate Rhythm: irregular rhythm Heart sounds: S1 normal, S2 normal and normal, physiologic split S2; negative rub, gallop or murmur GI GI: normal to inspection Neuro General: alert, awake, oriented x3 and CN's II-XI intact bilaterally Skin Skin: no rashes or lesions noted Extremities Pulses: Normal: Right Posterior Tibial Pulse, Left Posterior Tibial Pulse, Right Radial Pulse, Left Radial Pulse Lower Extremity Edema: None: Bilateral Psych Psychological: normal affect Assessment & Plan 1. Paroxysmal atrial fibrillation I48.0 Plan Her echocardiogram in August 2018 showed moderately enlarged left atrium, mildly enlarged right atrium, and an ejection fraction of 55%. Her EKG in office on 11/03/2018 continued to show atrial fibrillation. Her heart rate was well controlled at 93 bpm and her QTC is noted be 437. She did begin Levaquin therapy several weeks ago. Thus, it was encouraging to see that her QTc interval was well controlled. Her case was discussed further with Dr. Romero. She will undergo repeat cardioversion with continuation of amiodarone. If this is unsuccessful we may consider electrophysiology. Patient does acknowledge that if electrophysiology is needed in the future that she wishes to be [facility]. She does acknowledged outpatient colonoscopy in the future. Given her need for oral anticoagulation with DCCV, she was asked to discuss this with primary care physician in regards to timing of colonoscopy. She was asked to decrease her amiodarone to 200 mg p.o. daily. She will continue with factor Xa inhibitor. She denies disruption or continuation of X arelto. 2. Essential hypertension I10 Plan Patient's blood pressure is well-controlled. We will continue to monitor. We will not make any medication regimen changes. 3. Acute on chronic diastolic congestive heart failure I50.33 Plan She denies any symptoms consistent with congestive heart failure. Her most recent echocardiogram from August 2018 showed ejection fraction of 55% and RVSP of 46 mmHg. She will continue with current medical therapy which includes metoprolol, valsartan, and furosemide. We will continue to monitor. Additional Comments Thank you for allowing us to participate in the patients plan of care, if you have any questions please do not hesitate to call. This note was generated using a voice recognition system and there may be incorrect words, spelling or punctuation that were not noted when reviewing the office note prior to saving. Follow Up 6 Months (SOLE STAINER) Supplemental Info Supplemental Information Echocardiogram from 09/04/2018: Interpretation Summary The study was technically difficult. Left ventricular systolic function is normal. The estimated ejection fraction is 55 %. Mild concentric left ventricular hypertrophy. The left atrium is moderately enlarged. The right atrium is mildly enlarged. Mild focal mitral valve calcification of the anterior leaflet. Mild (1+) eccentric mitral valve insufficiency. Moderate (2+) eccentric tricuspid valve insufficiency. Right ventricular systolic pressure estimated to be 46 mmHg. Unable to assess diastolic dysfunction. Transesophageal echocardiogram from 08/25/2017: Interpretation Summary Normal LV size. Left ventricular systolic function is normal. The estimated ejection fraction is 65 %. No thrombus is detected in the left atrial appendage. Nuclear stress test from 05/14/2005: Conclusion 1. Exercise stress test with no EKG criteria for ischemia at a moderate workload. 2. Resting and stress induced hypertension. 3. Nuclear images demonstrate no evidence of ischemia.
[2018-11-30 11:07] VITALS: BMI 39.7
--- NOTE | 2018-11-30 11:48 | CARDIOVERS ---
Cardioversion Cardioversion: C cardioversion. 73-year-old lady with a history of chronic persistent symptomatic atrial fibrillation. The patient was brought to the noninvasive side of the cardiac catheterization lab in the postabsorptive nonsedated state. Informed consent was obtained. The patient was seen by Dr. Maher of the critical care division. Anterior-posterior pads were applied. The patient was then administered 40 mg of intravenous propofol. 200 J of synchronized biphasic cardioversion energy were applied and then the patient promptly reverted back to sinus rhythm. Postprocedure vitals were noted to be stable. EKG confirmed sinus bradycardia. Conclusion: Successful DC cardioversion to sinus rhythm. Continue anticoagulation Continue current medications including amiodarone. We will follow-up in my office.
--- NOTE | 2018-11-30 12:09 | PRO.PCM_ITS ---
Procedure Report Date of Procedure: 11/30/18 CONSCIOUS SEDATION REPORT DATE OF SERVICE: November 30, 2018 BRIEF HISTORY OF PRESENT ILLNESS: The patient is a 73-year-old female who presented to [facility] for an elective outpatient cardioversion due to underlying atrial fibrillation. The patient did undergo a previous cardioversion in September 2018, during which time, she required 40 mg of propofol to achieve an appropriate level of sedation. The patient does have a suspected history of obstructive sleep apnea, but denies ever having been diagnosed with COPD or asthma. The patient's last surface echocardiogram revealed an ejection fraction of approximately 55%. The patient denies any previous anesthetic complications. PHYSICAL EXAMINATION: VITAL SIGNS: Reviewed and were acceptable. GENERAL: The patient is an obese female, in no apparent distress, speaking in full sentences. HEENT: Normocephalic, atraumatic. Mucous membranes are moist and pink. Good mouth opening noted. Trachea is midline. CHEST: S1, S2 irregularly irregular. No murmurs, rubs or gallops were noted. LUNGS: Clear to auscultation bilaterally without appreciable wheezes, rales or rhonchi. ABDOMEN: Soft, nontender, nondistended. Positive bowel sounds. EXTREMITIES: There is no clubbing, cyanosis or LE edema. ASA Class: II DESCRIPTION OF PROCEDURE: After confirmation of informed consent, the patient's anesthesia plan was reviewed in detail. Propofol was chosen. Risks and benefits were reviewed and the patient agreed to proceed. At 1144, the patient was given 40 mg of propofol. The patient achieved an appropriate level of sedation and was given a 200 joule synchronized cardioversion by Dr. Romero at the bedside. This was successful in achieving normal sinus rhythm. The patient was monitored until 1150, at which time she reached her baseline mental status and function. The patient tolerated the procedure well. COMPLICATIONS: None ESTIMATED BLOOD LOSS: None RECOMMENDATIONS: Okay to recover in usual fashion. Code Visit 9xxxx: Other Procedure See Report - [id number]
== END 2018-11-30 12:47 | disposition home or self-care (01) ==
LOC: CLSP 10:54
PROVIDERS: Family Provider Family Medicine; Referring Provider Internal Medicine Cardiovascular Disease; Visit Provider Internal Medicine Cardiovascular Disease
DX: I48.0 Paroxysmal atrial fibrillation (principal); E11.9 Type 2 diabetes mellitus without complications; G47.33 Obstructive sleep apnea (adult) (pediatric); E66.9 Obesity, unspecified; I11.0 Hypertensive heart disease with heart failure; I50.9 Heart failure, unspecified; I25.2 Old myocardial infarction; M19.90 Unspecified osteoarthritis, unspecified site; Z85.3 Personal history of malignant neoplasm of breast; Z99.81 Dependence on supplemental oxygen; Z79.02 Long term (current) use of antithrombotics/antiplatelets; Z79.899 Other long term (current) drug therapy
CPT/HCPCS: 92960; 93005; J7040

== ENCOUNTER → 2023-03-12 | Outpatient (CLI) | payer MEDICARE, OTHER, SELFPAY ==
[2018-05-05 09:09] VITALS: BMI 41.5
--- NOTE | 2023-03-12 14:41 | VDLE_ITS ---
Reason For Study: LLE Pain RIGHT LEFT CFV is compressible, spontaneous, phasic, GSV is normal. competent and demonstrates normal CFV is compressible, spontaneous, phasic, augmentation. competent, and demonstrates normal Procedure augmentation. This is a venous duplex using B-mode, color FV is compressible, spontaneous, phasic, flow and spectral Doppler. competent and demonstrates normal Exam performed in department. augmentation. The exam was diagnostic. POP V is compressible, spontaneous, phasic, A preliminary report was called and/or faxed competent and demonstrates normal to Dr. Santos's office. augmentation. T/P Trunk is compressible. PTV is compressible. LT PerV is compressible. VL/Venous Duplex US, Unilateral Interpretation Summary Deep veins of the left lower extremity are patent and compressible segmentally. There is no evidence of left lower extremity deep vein thrombosis. Valvular competence appears intac t within the proximal deep venous system on the left . The left great saphenous vein appears patent a nd compressible segmentally. The right common femoral vein is patent and compressible . Ordering Physician: Chip Santos Referring Physician: Chip Santos Performed By: Vishnu Agee RVT
== END | disposition home or self-care (01) ==
PROVIDERS: PCP Family Medicine; Referring Provider Family Medicine; Visit Provider Family Medicine
DX: M79.605 Pain in left leg (principal)
CPT/HCPCS: 93971

== ENCOUNTER 2024-10-11 08:45 | Inpatient (IN) | payer MEDICARE, OTHER, SELFPAY ==
[2018-05-05 09:09] VITALS: BMI 41.5
[2024-10-11] VITALS (34 sets, daily range): BP systolic 98–171; BP diastolic 70–121; PULSE 92–125; RESP 8–25; TEMP 36.7–37.3; O2SAT 91–100; BMI 40.1
--- NOTE | 2024-10-11 08:53 | EDS_ITS ---
HPI History of Present Illness Chief Complaint: Chest Pain Narrative Narrative: Patient is a 79-year-old female past medical history of persistent atrial fibrillation on Xarelto, BMI of 40-49, type 2 diabetes chest pain she rates it a 7 out of 10 in the center of her chest, migraines who presents to the emergency department with a chief complaint of like a elephant is sitting on her chest she states. Per EMS they held off on nitroglycerin as her concern for a softer blood pressure and possibility of inferior wall OK. They held off on aspirin as well and prehospital she was on Xarelto. [facility] Medical History Non-rheumatic tricuspid valve insufficiency Paroxysmal atrial fibrillation Acute on chronic diastolic (congestive) heart failure Secondary pulmonary arterial hypertension Essential (primary) hypertension Persistent atrial fibrillation RONALDO (obstructive sleep apnea) Obesity, Class III, BMI 40-49.9 (morbid obesity) Malignant neoplasm of left breast, estrogen receptor positive Type 2 diabetes mellitus Osteoarthritis Migraines Knee pain, chronic Inferior OK Hyperglycemia Epistaxis Home Medications ?Medication ?Instructions ?Recorded ?Last Taken ?Type multivitamin with folic acid 400 1 tab PO DAILY SUPPLE MENT 08/18/17 11/30/18 History mcg tablet omega-3 fatty acids 1,000 mg 2,000 mg PO DAILY supplem ent 09/04/18 11/30/18 History capsule valsartan 160 mg tablet 160 mg PO DAILY heart 11/30/18 History furosemide 40 mg tablet 40 mg PO DAILY #60 tabs 09/06 11/23 Unknown Rx rivaroxaban 20 mg tablet 20 mg PO DAILY 11/03/1811/06 History metoprolol succinate 25 mg 25 mg PO DAILY 03/25/22 Unk nown History tablet,extended release 24 hr metoprolol tartrate 50 mg tablet 50 mg PO DAILY Unknown History Allergy/AdvReac Type Severity Reaction Status Date / Time adhesive Allergy Itching, Verified 04/08/24 12:50 rash, redness allantoin (From Carrasyn Allergy Rash, skin Verified 04/08/24 12:50 Hydrogel Wound Dress) peeling azithromycin Allergy Angioedema Verified 04/08/24 12:50 vitamin A (From Aquasol A) Allergy Rash Verified 04/08/24 12:50 lisinopril AdvReac Other Verified 04/08/24 12:50 Family History Mother Breast cancer Hypertension Grandmother Breast cancer Sister Breast cancer Uterine cancer Sister Breast cancer Aunt Breast cancer Daughter Uterine cancer Sister Breast cancer Sister Kidney disease Sister Diabetes Sister Macular degeneration Brother Colon cancer Diabetes Hypertension Brother , 51yr No problems noted. Surgical History H/O shoulder surgery History of cardioversion (11/30/18) History of tonsillectomy History of tubal ligation History of hysterectomy History of appendectomy History of bilateral knee replacement left axillary lymph node biopsy History of lumpectomy of left breast History of breast biopsy Social History Smoking Status: Never smoker second hand exposure: No alcohol intake: never substance use type: does not use ROS ROS ED ROS Narrative constitutional: Denies any fevers, lightheadedness, dizziness Eyes: Denies change in vision double vision blurry vision Cardiovascular: Complaint chest pain as noted above Respiratory: Denies coughing wheezing shortness of breath Abdomen: Denies abdominal pain vomiting diarrhea : Denies urinary symptoms Neurological: Denies any numbness, wheeze, tingling Musculoskeletal: Denies back pain Skin: Denies any rashes or lesions EXAM Physical Exam Narrative Exam Narrative: General: Patient was lying on the bed rest comfortably did not appear to be acute distress Head: Atraumatic, normocephalic Eyes: PERRL bilaterally, EOMI blood, no conjunctival injection noted Neck: Soft, supple, trachea midline Cardiovascular: Patient tachycardic with an irregular irregular rhythm Respiratory: Clear to auscultation bilaterally Extremities: Patient moving all extremities on exam Neurological: Patient follow commands that she was at [facility] the year is 2024 Skin: Warm, dry, tact no rashes or lesions noted Const Vital Signs: 10/11/24 08:45 10/11/24 08:51 10/11/24 08:57 Temperature 98.1 F Temperature Source Temporal Pulse Rate 125 H Respiratory Rate 22 H 20 H Blood Pressure 153/96 H 153/98 H Blood Pressure Mean 115 Pulse Ox 98 98 Oxygen Delivery Method Room Air Room Air 10/11/24 09:12 Temperature Temperature Source Pulse Rate 100 Respiratory Rate Blood Pressure 151/115 H Blood Pressure Mean Pulse Ox Oxygen Delivery Method MDM MDM MDM Narrative Medical decision making narrative: Patient is a 79-year-old female who presented to the emergency department chief complaint chest pain on the differential did includes ACS, pneumonia, pneumothorax, PE, dissection. Once workup is obtained reviewed she will be reevaluated. Prehospital EKG was reviewed and did show evidence of STEMI therefore STEMI alert was called on-call call or contact centre manager Dr. Blum came down and evaluated the patient at bedside. He is recommending aspirin and beta-jarod. He is also requesting aspirin, heparin drip, nitroglycerin drip which were all ordered multiple EKGs were obtained and reviewed therefore after this further review by call or contact centre manager he also would prefer to get rate control therefore the patient was given digoxin get echocardiogram and admit the patient to the intensive care unit. Will reach out to the hospitalist. Patient CBC reviewed and showed no evidence leukocytosis white was count normal 8.1, hemoglobin was 14.9, plate count of 290. Patient INR normal at 2.1, PT 23.6. Patient sodium was 143, potassium 3.8, creatinine normal at 0.92. Glucose of 170, troponin was 17 with proBNP 1553. Patient TSH normal at 2.52. There is chest x-ray reviewed by myself and by radiology which showed no acute cardiopulmonary processes. Called and discussed case with hospitalist Dr. Miranda who accept patient for admission to the intensive care unit. Lab Data Labs: Laboratory Results - last 24 hr 10/11/24 10/11/24 08:50 08:54 WBC 8.1 RBC 4.80 Hgb 14.9 Hct 46.2 MCV 96.3 MCH 31.0 MCHC 32.3 RDW Std Deviation 46.0 H RDW Coeff of Gold 12.9 Plt Count 290 MPV 10.3 Immature Gran % (Auto) 0.400 Neut % (Auto) 62.4 Lymph % (Auto) 30.4 [place] % (Auto) 5.7 Eos % (Auto) 0.6 Baso % (Auto) 0.5 Absolute Neuts (auto) 5.1 Absolute Lymphs (auto) 2.46 Nucleated RBC % 0 PT 23.6 H INR 2.1 Sodium 143 Potassium 3.8 Chloride 103 Carbon Dioxide 26.7 Anion Gap 14 BUN 27 H Creatinine 0.92 Estim Creat Clear Calc 51.74 Est GFR (MDRD) Non-Af 63 BUN/Creatinine Ratio 29.1 H Glucose 170 H Calcium 9.9 Magnesium 2.4 H Troponin T High Sens 17 H NT pro BNP II 1553 TSH 2.520 Discharge Plan Triage Chief Complaint: Chest Pain ED Provider: Ruiz Reaves Dx/Rx/DC Orders Clinical Impression: Essential (primary) hypertension, Acute on chronic diastolic (congestive) heart failure, RONALDO (obstructive sleep apnea), Paroxysmal atrial fibrillation, Chest pain, Non-ST elevation OK (NSTEMI) Primary Care Provider: Chip Santos Disposition Disposition: Acute Care Hospital [facility]
--- NOTE | 2024-10-11 08:55 | EKG12_ITS ---
Test Reason : CP Blood Pressure : */* mmHG Vent. Rate : 137 BPM Atrial Rate : * BPM P-R Int : * ms QRS Dur : 80 ms QT Int : 278 ms P-R-T Axes : * -8 -20 degrees QTcB Int : 419 ms Atrial fibrillation with rapid ventricular response with premature ventricular or aberrantly conducted complexes Low voltage QRS Nonspecific ST abnormality Abnormal ECG Confirmed by JACK SINHA, CLARITZA ([id number]), plasma processing technician DELORIS MARIE ([id number]) on 10/12/2024 8:21:37 AM Referred By: Lida Blum Confirmed By: CLARITZA SANTIAGO MD
--- NOTE | 2024-10-11 09:00 | EKG12_ITS ---
Test Reason : REPEAT Blood Pressure : */* mmHG Vent. Rate : 118 BPM Atrial Rate : * BPM P-R Int : * ms QRS Dur : 82 ms QT Int : 324 ms P-R-T Axes : * -13 -16 degrees QTcB Int : 454 ms Atrial fibrillation with rapid ventricular response with premature ventricular or aberrantly conducted complexes Low voltage QRS Abnormal ECG Confirmed by JACK SINHA, CLARITZA ([id number]), editorial director DELORIS MARIE ([id number]) on 10/12/2024 8:21:50 AM Referred By: Lida Blum Confirmed By: CLARITZA SANTIAGO MD
[2024-10-11] MEDS: Digoxin 250 MCG/ML Ampul 125 MCG IV (09:04)
[2024-10-11] MEDS: 0.9% Normal Saline (1000mL) 1,000 ML 999 ML IV (09:06)
[2024-10-11 09:09] LABS: Hematocrit 46.2 % (37-47); Hemoglobin 14.9 g/dL (12.0-15.0); Immature Granulocytes Count 0.030 X10^3/uL (0.0-0.0); Mean Corp Hgb Conc 32.3 g/dL (32-36); Mean Corpuscular Volume 96.3 fL (81-99); Mean Platelet Vol. 10.3 fl (6.2-12.0); NRBC Flagged by Analyzer 0 % (0-5); Platelet Count 290 K/mm3 (150-450); RBC Distribution Width CV 12.9 % (11.6-14.6); RBC Distribution Width SD 46.0 fl (35.1-43.9); Red Blood Count 4.80 M/mm3 (4.2-5.4); White Blood Count 8.1 K/mm3 (4.4-11.0)
[2024-10-11] MEDS: Nitroglycerin Infusion 250 ML 3 MG CONT INF ×2 (09:12→14:36)
[2024-10-11] MEDS: HEPARIN/D5w 25,000 UNITS 25,000 UNITS/250 ML IV.SOLN. 10 UNITS CONT INF ×2 (09:15→14:38)
[2024-10-11 09:26] LABS: Prothrombin Time (Protime)PT. 23.6 SECONDS (11.7-14.9)
[2024-10-11 09:42] LABS: Anion Gap 14 (5-15); BUN 27 mg/dL (4-19); BUN/Creat Ratio 29.1 RATIO (10-20); Calcium,Total 9.9 mg/dL (7.6-11.0); Carbon Dioxide 26.7 mmol/L (21.0-32.0); Chloride 103 mmol/L (98-108); Estimated Creatinine Clearance 51.74 ml/min (50-250); Glucose 170 mg/dL (70-99); Magnesium 2.4 mg/dL (1.5-2.2); Potassium 3.8 mmol/L (3.3-5.1)
[2024-10-11 09:46] LABS: Pro- Brain NATRIURETIC PEPTIDE 1553 pg/mL (<=1800); Troponin T High Sensitivity 17 ng/L (<=14)
--- NOTE | 2024-10-11 09:50 | ECHOCS_ITS ---
Reason For Study Reason For Study: STEMI Procedure This was a 2D Doppler, Color Flow transthoracic echocardiogram. The study was technically difficult. Contrast injection was performed. Exam performed portable in ED. Left Ventricle Normal LV size. Moderate concentric left ventricular hypertrophy. The left ventricular ejection fraction is 50 %. [place] : Hypokinetic. Right Ventricle Normal RV size. Normal systolic function. Atria Normal left atrium. Normal right atrium. Mitral Valve Normal mitral valve. Tricuspid Valve Normal tricuspid valve. Mild (1+) tricuspid valve insufficiency. Pulmonary artery systolic pressure is 30 mmHg. Aortic Valve Trisinus/trileaflet aortic valve. Mild focal aortic valve calcification. Great Vessels Normal aortic root. The pulmonary artery is normal size. Inferior vena cava collapse with respiration. Pericardium/Pleural No pericardial effusion. Medication Diluted definity 2ml given slow IV push to enhance endocardial definition. MMode/2D Measurements & Calculations LVIDd: 3.9 cm IVSd: 1.5 cm Ao root diam: 3.4 cm LVIDs: 2.7 cm LVPWd: 1.4 cm FS: 32.1 % LAV(MOD-bp): 63.3 ml LVAd ap4: 31.3 cm2 SV(MOD-sp4): 51.8 ml LAV(MOD-bp) Indexed: 33.2 ml/m2 LVLd ap4: 7.7 cm SI(MOD-sp4): 27.2 ml/m2 LAV(MOD-sp2): 75.6 ml EDV(MOD-sp4): 103.8 ml LAV(MOD-sp4): 46.3 ml EDV(sp4-el): 108.5 ml LVAs ap4: 20.6 cm2 LVLs ap4: 6.7 cm ESV(MOD-sp4): 51.9 ml ESV(sp4-el): 54.1 ml EF(MOD-sp4): 50.0 % EF(sp4-el): 50.1 % SV(sp4-el): 54.4 ml LA A4 area: 16.9 cm2 LA dimension(2D): 4.8 cm RA A4 area: 13.4 cm2 Time Measurements MV dec time: 0.14 sec Doppler Measurements & Calculations MV E max baldomero: 78.1 cm/sec Ao V2 max: 98.8 cm/sec LV V1 max: 81.2 cm/sec Ao max P.9 mmHg LV V1 max P.7 mmHg Ao V2 mean: 68.8 cm/sec LV V1 mean P.5 mmHg Ao mean P.1 mmHg LV V1 mean: 57.7 cm/sec Ao V2 VTI: 16.4 cm LV V1 VTI: 13.9 cm AV (velocity ratio): 0.85 PA V2 max: 81.7 cm/sec TR max baldomero: 254.5 cm/sec PA V2 mean: 62.1 cm/sec TR max P.9 mmHg ECHO/Echo Complete W/ Contrast Interpretation Summary Normal LV size. Moderate concentric left ventricular hypertrophy. The left ventricular ejection fraction is 50 %. [place] : Hypokinetic. Mild (1+) tricuspid valve insufficiency. Pulmonary artery systolic pressure is 30 mmHg. Ordering Physician: Lida Blum Referring Physician: Lida Blum Performed By: Alyson Sifuentes RCS
--- NOTE | 2024-10-11 10:00 | RAD_ITS ---
PROCEDURE: CHEST PA AND LATERAL 10/11/2024 REASON FOR EXAM: CHEST PAIN TECHNIQUE: CHEST PA AND LATERAL FINDINGS: Hardware: EKG wires Heart: Upper limits of normal size Mediastinum: Mediastinal contours Lungs: Lungs are clear. Bones: No aggressive lesions. Chronic elevation of the right hemidiaphragm RAD/Chest PA and Lateral IMPRESSION: Lungs are clear. Chronic elevation of the left hemidiaphragm, stable since August 2018 [facility]
--- NOTE | 2024-10-11 10:26 | PCM.HP.STD ---
HPI - General General Date of Admission: 10/11/24 Date of Service: 10/11/24 Chief Complaint: Chest pain HPI Narrative JOEY CARMICHAEL, is a 79 F who presents with epistaxis and chest pain. This is an 79-year-old male who has a history of A-fib on rivaroxaban presents with epistaxis. Patient was also having midsternal, nonradiating chest pain. Spoke with her neighbor who called 911 and patient was brought here. Patient was called as a STEMI alert and was seen by cardiology who rescinded the STEMI alert and admission. Patient was noted to be in A-fib with RVR and did receive a dose of 125 mcg of digoxin. Patient had an INR of 2.1 she does take rivaroxaban and was started on a heparin drip which will be discontinued upon admission. Patient is currently chest pain-free and had been started on a nitroglycerin drip. Troponins became available later and it was only 17. Patient feels good right now and wants to go home. She is unconcerned about her A-fib as she states that her heart rate is fast all the time. [facility] [place] Medical History Non-rheumatic tricuspid valve insufficiency Paroxysmal atrial fibrillation Acute on chronic diastolic (congestive) heart failure Secondary pulmonary arterial hypertension Essential (primary) hypertension Persistent atrial fibrillation RONALDO (obstructive sleep apnea) Obesity, Class III, BMI 40-49.9 (morbid obesity) Malignant neoplasm of left breast, estrogen receptor positive Type 2 diabetes mellitus Osteoarthritis Migraines Knee pain, chronic Inferior [place] Hyperglycemia Epistaxis Home Medications ?Medication ?Instructions ?Recorded ?Last Taken ?Type multivitamin with folic acid 400 1 tab PO DAILY SUPPLEMENT 08/18/17 11/30/18 History mcg tablet omega-3 fatty acids 1,000 mg 2,000 mg PO DAILY supplement 09/04/18 11/30/18 History capsule valsartan 160 mg tablet 160 mg PO DAILY heart 09/04/18 11/30/18 History furosemide 40 mg tablet 40 mg PO DAILY #60 tabs 10/02/18 Unknown Rx rivaroxaban 20 mg tablet 20 mg PO DAILY 11/03/18 11/30/18 History metoprolol succinate 25 mg 25 mg PO DAILY 03/25/22 Unknown History tablet,extended release 24 hr metoprolol tartrate 50 mg tablet 50 mg PO DAILY 03/25/22 Unknown History Allergy/AdvReac Type Severity Reaction Status Date / Time adhesive Allergy Itching, Verified 04/08/24 12:50 rash, redness allantoin (From Carrasyn Allergy Rash, skin Verified 04/08/24 12:50 Hydrogel Wound Dress) peeling azithromycin Allergy Angioedema Verified 04/08/24 12:50 vitamin A (From Aquasol A) Allergy Rash Verified 04/08/24 12:50 lisinopril AdvReac Other Verified 04/08/24 12:50 Family History Mother Breast cancer Hypertension Grandmother Breast cancer Sister Breast cancer Uterine cancer Sister Breast cancer Aunt Breast cancer Daughter Uterine cancer Sister Breast cancer Sister Kidney disease Sister Diabetes Sister Macular degeneration Brother Colon cancer Diabetes Hypertension Brother , 51yr No problems noted. Surgical History H/O shoulder surgery History of cardioversion (11/30/18) History of tonsillectomy History of tubal ligation History of hysterectomy History of appendectomy History of bilateral knee replacement left axillary lymph node biopsy History of lumpectomy of left breast History of breast biopsy Social History Smoking Status: Never smoker second hand exposure: No alcohol intake: never substance use type: does not use ROS ROS Narrative Does have history of lower extremity edema but since change of her furosemide. All review of systems were negative except as mentioned above in the history of present illness and the other review of systems. Vital Signs Vital Signs Vital Signs: 10/11/24 08:45 10/11/24 08:51 10/11/24 08:57 Temperature 36.7 C Temperature Source Temporal Pulse Rate 125 H Respiratory Rate 22 H 20 H Blood Pressure 153/96 H 153/98 H Blood Pressure Mean 115 Pulse Ox 98 98 Oxygen Delivery Method Room Air Room Air 10/11/24 09:12 10/11/24 09:15 10/11/24 09:30 Temperature Temperature Source Pulse Rate 100 117 H 114 H Respiratory Rate 20 H 16 Blood Pressure 151/115 H 151/105 H 171/121 H Blood Pressure Mean 120 137 Pulse Ox 98 100 Oxygen Delivery Method Room Air 10/11/24 09:54 Temperature 36.9 C Temperature Source Pulse Rate 112 H Respiratory Rate 19 H Blood Pressure 171/121 H Blood Pressure Mean 137 Pulse Ox 100 Oxygen Delivery Method Weight Weight: 96.3 kg Body Mass Index (BMI) 40.1 Physical Exam Narrative - Physical Exam General: Alert, Oriented x3, Cooperative HEENT: Atraumatic, PERRLA, EOMI, Normocephalic Oral: Moist Mucosa, No Gingival or Mucosal Lesions/ Ulcerations Neck: Supple, No JVD, Negative Carotid Bruits Lungs: Clear to auscultation, Normal air movement Cardiovascular: Irregularly irregular Abdomen: Bowel Sounds Present, Soft, Non Tender, Non-Distended, No Hepato-splenomegaly Extremities: No clubbing, No cyanosis, No edema, Capillary Refill Less than 3 Seconds Skin: No rashes, No breakdown Musculoskeletal: No Tenderness to Palpation of Joints or Extremities Neurological: Neuro grossly intact Psych/Mental Status: Normal Affect, Appropriate Results Lab / Micro Data 10/11/24 08:50 10/11/24 08:50 Labs: Laboratory Results - last 24 hr 10/11/24 08:50: WBC 8.1, RBC 4.80, Hgb 14.9, Hct 46.2, MCV 96.3, MCH 31.0, MCHC 32.3, RDW Std Deviation 46.0 H, RDW Coeff of Gold 12.9, Plt Count 290, MPV 10.3, Immature Gran % (Auto) 0.400, Neut % (Auto) 62.4, Lymph % (Auto) 30.4, [place] % (Auto) 5.7, Eos % (Auto) 0.6, Baso % (Auto) 0.5, Absolute Neuts (auto) 5.1, Absolute Lymphs (auto) 2.46, Nucleated RBC % 0, Sodium 143, Potassium 3.8, Chloride 103, Carbon Dioxide 26.7, Anion Gap 14, BUN 27 H, Creatinine 0.92, Estim Creat Clear Calc 51.74, Est GFR (MDRD) Non-Af 63, BUN/Creatinine Ratio 29.1 H, Glucose 170 H, Calcium 9.9, Magnesium 2.4 H, Troponin T High Sens 17 H, NT pro BNP II 1553, TSH 2.520 10/11/24 08:54: PT 23.6 H, INR 2.1 Assessment & Plan Assessment/Plan (1) Atrial fibrillation with RVR: PLAN: Currently improved. Patient did receive digoxin in the emergency room. On her home medication list she takes metoprolol succinate and metoprolol tartrate. Unclear if she is actually taking both of those. Will need to clarify which one she is taking or if those are correct. The meantime patient will be on as needed IV metoprolol for heart rate greater than 160. Patient is already anticoagulated on rivaroxaban continue for now. Check an echocardiogram (2) Chest pain: PLAN: Troponins minimally elevated at 17. Not an actual STEMI despite a STEMI alert being called. Already seen by cardiology. No plans for imminent heart cath at this point in time. Discontinue heparin drip this patient already does take rivaroxaban INR is 2.1. Chest pain may have been induced by her atrial fibrillation with RVR. Be very stable at this time. Will however, continue to check her troponins. PLAN: Plan Hypertension: Continue with valsartan VTE prophylaxis: Not indicated patient is already on oxygen. Charges/Coding Visit Charges Inpatient E&M: 30912 Init Hosp L3
--- NOTE | 2024-10-11 11:13 | EKG12_ITS ---
Test Reason : Blood Pressure : */* mmHG Vent. Rate : 98 BPM Atrial Rate : * BPM P-R Int : * ms QRS Dur : 80 ms QT Int : 374 ms P-R-T Axes : * -43 -9 degrees QTcB Int : 477 ms Atrial fibrillation with premature ventricular or aberrantly conducted complexes Left axis deviation Low voltage QRS Septal infarct , age undetermined Abnormal ECG When compared with ECG of 11-Oct-2024 08:59, MANUAL COMPARISON REQUIRED DATA IS UNCONFIRMED Confirmed by JACK SINHA, CLARITZA ([id number]), managing editor DELORIS MARIE ([id number]) on 10/13/2024 7:16:44 AM Referred By: Lida Blum Confirmed By: CLARITZA SANTIAGO MD
[2024-10-11 11:17] LABS: Partial Thromboplast Time 33.0 Seconds (24.1-36.2)
[2024-10-11] MEDS: 0.9% Saline Lock 10 ML Syringe IV (12:11)
[2024-10-11] MEDS: 0.9% Normal Saline (1000mL) 1,000 ML 15 ML IV (12:11)
[2024-10-11 12:53] LABS: Troponin T High Sens 2 HR 151 ng/L (<=14)
--- NOTE | 2024-10-11 13:01 | PCM.CONS.C ---
Assessment & Plan Assessment/Plan (1) Chest pain: (2) Paroxysmal atrial fibrillation: (3) Acute on chronic diastolic (congestive) heart failure: (4) Essential (primary) hypertension: (5) Malignant neoplasm of left breast, estrogen receptor positive: QUALIFIERS: Breast location: 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 Patient sex: female Qualified Code(s): C50.912 - Malignant neoplasm of unspecified site of left female breast; Z17.0 - Estrogen receptor positive status [ER+] (6) RONALDO (obstructive sleep apnea): PLAN: 79-year-old patient brought to the ED by the EMS With retrosternal chest pain this morning, it happened this morning while she was brushing her teeth she called her neighbor who called the EMS service. Patient has a history of paroxysmal atrial fibrillation and was on treatment with rivaroxaban 20 mg at bedtime She had recently noted epistaxis. Other medical problem include history of RONALDO Diastolic heart failure Symptoms of chest pain described as 7 out of 10 she was not diaphoretic. Resolution of chest pain while in the ED after, with nitroglycerin and will give her IV digoxin 125 mcg To control the ventricular rate. As well a bedside echocardiogram showed segmental wall motion with apical hypokinesia And possible apical thrombus with Definity IV.. Cardiac care plan; Patient presenting with retrosternal chest pain has paroxysmal atrial fibrillation Has change in the EKG, with some ST elevation noted in 1 and aVL with reciprocal change, ST depression in the inferior lead. She is a high risk, for immediate cardiac catheterization as she has epistaxes and she has a elevated INR 2.1 And has been on Xarelto/rivaroxaban 20 mg which she took last night Noted INR elevated to 2.1. Based on the clinical presentation I recommend the following 1. Rate control using calcium channel jarod and beta-jarod 2. Will start on heparin IV and to hold Xarelto/rivaroxaban 3. Will review series of high sensitive troponin initial troponin level within normal 17. 4. Echocardiogram, reviewed in the ED with segmental wall motion abnormality as described apical hypokinesia With question of LV thrombus Patient will require further evaluation during this admission with cardiac catheterization as we will stop the rivaroxaban and continue on heparin and will plan for cardiac catheterization right radial artery approach, tomorrow?Friday By Dr. Romero.. Lida Blum MD,FAC,[facility] automotive salesperson HPI Consult Data Date of Consult: 10/11/24 HPI Narrative Reason for Consultation: STEMI alert HPI Narrative: JOEY CARMICHAEL, is a 79 F who presents [facility] Medical History Non-rheumatic tricuspid valve insufficiency Paroxysmal atrial fibrillation Acute on chronic diastolic (congestive) heart failure Secondary pulmonary arterial hypertension Essential (primary) hypertension Persistent atrial fibrillation RONALDO (obstructive sleep apnea) Obesity, Class III, BMI 40-49.9 (morbid obesity) Malignant neoplasm of left breast, estrogen receptor positive Type 2 diabetes mellitus Osteoarthritis Migraines Knee pain, chronic Inferior [place] Hyperglycemia Epistaxis Home Medications ?Medication ?Instructions ?Recorded ?Last Taken ?Type multivitamin with folic acid 400 1 tab PO DAILY SUPPLEMENT 08/18/17 11/30/18 History mcg tablet omega-3 fatty acids 1,000 mg 2,000 mg PO DAILY supplement 09/04/18 11/30/18 History capsule valsartan 160 mg tablet 160 mg PO DAILY heart 09/04/18 11/30/18 History furosemide 40 mg tablet 40 mg PO DAILY #60 tabs 10/02/18 Unknown Rx rivaroxaban 20 mg tablet 20 mg PO DAILY 11/03/18 11/30/18 History metoprolol succinate 25 mg 25 mg PO DAILY 03/25/22 Unknown History tablet,extended release 24 hr metoprolol tartrate 50 mg tablet 50 mg PO DAILY 03/25/22 Unknown History Allergy/AdvReac Type Severity Reaction Status Date / Time adhesive Allergy Itching, Verified 04/08/24 12:50 rash, redness allantoin (From Carrasyn Allergy Rash, skin Verified 04/08/24 12:50 Hydrogel Wound Dress) peeling azithromycin Allergy Angioedema Verified 04/08/24 12:50 vitamin A (From Aquasol A) Allergy Rash Verified 04/08/24 12:50 lisinopril AdvReac Other Verified 04/08/24 12:50 Family History Mother Breast cancer Hypertension Grandmother Breast cancer Sister Breast cancer Uterine cancer Sister Breast cancer Aunt Breast cancer Daughter Uterine cancer Sister Breast cancer Sister Kidney disease Sister Diabetes Sister Macular degeneration Brother Colon cancer Diabetes Hypertension Brother , 51yr No problems noted. Surgical History H/O shoulder surgery History of cardioversion (11/30/18) History of tonsillectomy History of tubal ligation History of hysterectomy History of appendectomy History of bilateral knee replacement left axillary lymph node biopsy History of lumpectomy of left breast History of breast biopsy Social History Smoking Status: Never smoker second hand exposure: No alcohol intake: never substance use type: does not use Physical Exam Cardio Cardio Narrative: Patient seen at bedside in ED at [facility] Brought in by the squad complaining of precordial chest pain The nuclear monitoring technician revealed A-fib with RVR. Cardiac exam S1-S2 is regular Chest exam clear to auscultation bilateral Examination lower extremity no lower extremity edema noted. Risk Stratification Risk Stratification Applicable: No Objective Data Vital Signs: Vital Signs Temp Pulse Resp BP Pulse Ox O2 Del Method 99.2 F H 116 H 18 115/93 H 95 Room Air 10/11/24 11:18 10/11/24 11:18 10/11/24 11:18 10/11/24 11:18 10/11/24 11:18 10/11/24 12:52 Oxygen Delivery Method Room Air Weight: 205 lb 14.588 oz Body Mass Index (BMI) 40.1 Intake & Output: Intake and Output for Last 24 Hours 10/09/24 10/10/24 10/11/24 23:59 23:59 23:59 Intake Total 1039.15 / 1039.15 Balance 1039.15 / 1039.15 Lab / Micro Data 10/11/24 08:50 10/11/24 08:50 Labs: Laboratory Results - last 24 hr 10/11/24 08:50: WBC 8.1, RBC 4.80, Hgb 14.9, Hct 46.2, MCV 96.3, MCH 31.0, MCHC 32.3, RDW Std Deviation 46.0 H, RDW Coeff of Gold 12.9, Plt Count 290, MPV 10.3, Immature Gran % (Auto) 0.400, Neut % (Auto) 62.4, Lymph % (Auto) 30.4, [place] % (Auto) 5.7, Eos % (Auto) 0.6, Baso % (Auto) 0.5, Absolute Neuts (auto) 5.1, Absolute Lymphs (auto) 2.46, Nucleated RBC % 0, Sodium 143, Potassium 3.8, Chloride 103, Carbon Dioxide 26.7, Anion Gap 14, BUN 27 H, Creatinine 0.92, Estim Creat Clear Calc 51.74, Est GFR (MDRD) Non-Af 63, BUN/Creatinine Ratio 29.1 H, Glucose 170 H, Calcium 9.9, Magnesium 2.4 H, Troponin T High Sens 17 H, NT pro BNP II 1553, TSH 2.520 10/11/24 08:54: PT 23.6 H, INR 2.1, APTT 33.0 10/11/24 11:15: Troponin T Hi Sens 2 Hr 151 H* Cardiology Labs/Tests 10/11/24 08:50: WBC 8.1, RBC 4.80, Hgb 14.9, Hct 46.2, MCV 96.3, MCH 31.0, MCHC 32.3, Plt Count 290, MPV 10.3, Immature Gran % (Auto) 0.400, Neut % (Auto) 62.4, Lymph % (Auto) 30.4, [place] % (Auto) 5.7, Eos % (Auto) 0.6, Baso % (Auto) 0.5, Absolute Neuts (auto) 5.1, Nucleated RBC % 0, Sodium 143, Potassium 3.8, Chloride 103, Carbon Dioxide 26.7, Anion Gap 14, BUN 27 H, Creatinine 0.92, Est GFR (MDRD) Non-Af 63, BUN/Creatinine Ratio 29.1 H, Glucose 170 H, Calcium 9.9, Magnesium 2.4 H 10/11/24 08:54: PT 23.6 H, INR 2.1, APTT 33.0 Rhythm: EKG: ECHO: Stress Test: Cardiac Cath: PCI: CT Surgery: Holter monitor: EPS: PPM: CXR: Chest CT Scan: Radiography Diagnostic Testing: Radiology Impression Chest X-Ray 10/11/24 10:00 IMPRESSION: Lungs are clear. Chronic elevation of the left hemidiaphragm, stable since August 2018 [facility]
[2024-10-11 14:31] LABS: Troponin T High Sens 4 HR 323 ng/L (<=14)
[2024-10-11 20:13] LABS: Partial Thromboplast Time 79.6 Seconds (24.1-36.2)
[2024-10-12] VITALS (19 sets, daily range): BP systolic 90–158; BP diastolic 66–104; PULSE 84–113; RESP 14–23; TEMP 36.4–36.6; O2SAT 92–98
[2024-10-12 04:37] LABS: Partial Thromboplast Time 90.2 Seconds (24.1-36.2)
--- NOTE | 2024-10-12 05:55 | EKG12_ITS ---
Test Reason : HEART CATH Blood Pressure : */* mmHG Vent. Rate : 100 BPM Atrial Rate : * BPM P-R Int : * ms QRS Dur : 78 ms QT Int : 406 ms P-R-T Axes : * 100 -85 degrees QTcB Int : 523 ms Atrial fibrillation with premature ventricular or aberrantly conducted complexes Rightward axis T wave abnormality, consider inferolateral ischemia Prolonged QT Abnormal ECG When compared with ECG of 11-Oct-2024 12:44, MANUAL COMPARISON REQUIRED DATA IS UNCONFIRMED Confirmed by JACK SINHA, CLARITZA ([id number]), manuscript editor DELORIS MARIE ([id number]) on 10/13/2024 7:16:57 AM Referred By: Lida Blum Confirmed By: CLARITZA SANTIAGO MD
[2024-10-12 06:41] LABS: Hematocrit 37.8 % (37-47); Hemoglobin 12.5 g/dL (12.0-15.0); Immature Granulocytes Count 0.030 X10^3/uL (0.0-0.0); Mean Corp Hgb Conc 33.1 g/dL (32-36); Mean Corpuscular Volume 96.2 fL (81-99); Mean Platelet Vol. 10.7 fl (6.2-12.0); NRBC Flagged by Analyzer 0 % (0-5); Platelet Count 253 K/mm3 (150-450); RBC Distribution Width CV 12.8 % (11.6-14.6); RBC Distribution Width SD 45.2 fl (35.1-43.9); Red Blood Count 3.93 M/mm3 (4.2-5.4); White Blood Count 7.4 K/mm3 (4.4-11.0)
[2024-10-12 07:23] LABS: Anion Gap 11 (5-15); BUN 21 mg/dL (4-19); BUN/Creat Ratio 24.7 RATIO (10-20); Calcium,Total 9.2 mg/dL (7.6-11.0); Carbon Dioxide 26.9 mmol/L (21.0-32.0); Chloride 104 mmol/L (98-108); Estimated Creatinine Clearance 54.52 ml/min (50-250); Glucose 138 mg/dL (70-99); Potassium 3.5 mmol/L (3.3-5.1)
--- NOTE | 2024-10-12 08:39 | PN.HOSP_ITS ---
Reason for Visit Reason for Visit: Diagnoses Malignant neoplasm of unspecified site of left female breast (10/11/24) Obstructive sleep apnea (adult) (pediatric) (10/11/24) Essential (primary) hypertension (10/11/24) Paroxysmal atrial fibrillation (10/11/24) Unspecified atrial fibrillation (10/11/24) Acute on chronic diastolic (congestive) heart failure (10/11/24) Chest pain, unspecified (10/11/24) Estrogen receptor positive status [ER+] (10/11/24) Subjective Subjective Feeling well. Objective Data Objective Data Vital Signs: Vital Signs Temp Pulse Resp BP Pulse Ox O2 Del Method FiO2 37.2 C 86 18 126/86 H 96 Room Air 21 10/11/24 18:00 10/12/24 06:00 10/12/24 06:00 10/12/24 06:00 10/12/24 06:00 10/12/24 06:00 10/12/24 01:30 Oxygen Delivery Method Room Air Weight: 93.4 kg Body Mass Index (BMI) 40.1 Intake & Output: Intake and Output for Last 24 Hours 10/10/24 10/11/24 10/12/24 23:59 23:59 23:59 Intake Total 1584.17 / 1586.87 396.02 / 396.02 Balance 1584.17 / 1586.87 396.02 / 396.02 Lab / Micro Data 10/12/24 05:52 10/12/24 05:52 Labs: Laboratory Results - last 24 hr 10/11/24 08:50: WBC 8.1, RBC 4.80, Hgb 14.9, Hct 46.2, MCV 96.3, MCH 31.0, MCHC 32.3, RDW Std Deviation 46.0 H, RDW Coeff of Gold 12.9, Plt Count 290, MPV 10.3, Immature Gran % (Auto) 0.400, Neut % (Auto) 62.4, Lymph % (Auto) 30.4, [place] % (Auto) 5.7, Eos % (Auto) 0.6, Baso % (Auto) 0.5, Absolute Neuts (auto) 5.1, Absolute Lymphs (auto) 2.46, Nucleated RBC % 0, Sodium 143, Potassium 3.8, Chloride 103, Carbon Dioxide 26.7, Anion Gap 14, BUN 27 H, Creatinine 0.92, Estim Creat Clear Calc 51.74, Est GFR (MDRD) Non-Af 63, BUN/Creatinine Ratio 29.1 H, Glucose 170 H, Calcium 9.9, Magnesium 2.4 H, Troponin T High Sens 17 H, NT pro BNP II 1553, TSH 2.520 10/11/24 08:54: PT 23.6 H, INR 2.1, APTT 33.0 10/11/24 11:15: Troponin T Hi Sens 2 Hr 151 H* 10/11/24 12:58: Troponin T Hi Sens 4Hr 323 H* 10/11/24 19:46: APTT 79.6 H 10/12/24 03:28: APTT 90.2 H* 10/12/24 05:52: WBC 7.4, RBC 3.93 L, Hgb 12.5, Hct 37.8, MCV 96.2, MCH 31.8, MCHC 33.1, RDW Std Deviation 45.2 H, RDW Coeff of Gold 12.8, Plt Count 253, MPV 10.7, Immature Gran % (Auto) 0.400, Neut % (Auto) 73.0 H, Lymph % (Auto) 19.0, [place] % (Auto) 6.6, Eos % (Auto) 0.7, Baso % (Auto) 0.3, Absolute Neuts (auto) 5.4, Absolute Lymphs (auto) 1.41, Nucleated RBC % 0, Sodium 142, Potassium 3.5, Chloride 104, Carbon Dioxide 26.9, Anion Gap 11, BUN 21 H, Creatinine 0.84, Estim Creat Clear Calc 54.52, Est GFR (MDRD) Non-Af 70, BUN/Creatinine Ratio 24.7 H, Glucose 138 H, Calcium 9.2, TSH 2.760 Radiography Diagnostic Testing: Radiology Impression Echocardiogram 10/11/24 09:50 Interpretation Summary Normal LV size. Moderate concentric left ventricular hypertrophy. The left ventricular ejection fraction is 50 %. [place] : Hypokinetic. Mild (1+) tricuspid valve insufficiency. Pulmonary artery systolic pressure is 30 mmHg. Ordering Physician: Lida Blum Referring Physician: Lida Blum Performed By: Alyson Sifuentes RCS Chest X-Ray 10/11/24 10:00 IMPRESSION: Lungs are clear. Chronic elevation of the left hemidiaphragm, stable since August 2018 Reading Location: [facility] Physical Exam Const alert and no apparent distress HEENT head/scalp atraumatic and moist oral mucous membranes Resp normal respiratory effort, no retractions, no use of accessory muscles and clear to auscultation bilaterally Cardio regular rate, regular rhythm, S1 normal heart sound and S2 normal heart sound GI normal to inspection, nondistended, normoactive bowel sounds, soft to palpation, non-tender and non-distended Extremity normal to inspection Assessment & Plan Assessment/Plan (1) Atrial fibrillation with RVR: PLAN: Currently improved. Patient did receive digoxin in the emergency room. Unclear if she is actually taking both of those. Will need to clarify which one she is taking or if those are correct. The meantime patient will be on as needed IV metoprolol for heart rate greater than 160. Patient is already anticoagulated on rivaroxaban continue for now. Echocardiogram showed an EF 50%, hypokinetic apex. PASP 30 mm Hg. Changed metoprolol succinate 50/d to tartrate 50 BID. (2) Chest pain: PLAN: Initial Troponin minimally elevated at 17, then went to 323. Not an actual STEMI despite a STEMI alert being called. [facility] today showed mild eccentric plaque rupture noted in the proximal and mid left anterior descending artery. The rest of the vessels appeared to be free of significant disease. There was hypokinesis of the apex noted. Takotsubo cardiomyopathy cannot be completely excluded. PLAN: Plan Hypertension: Continue with valsartan VTE prophylaxis: Not indicated patient is already on oxygen. SOM Romero. Ok for DC home. Charges/Coding Visit Charges Inpatient E&M: 48573 Subs Hosp L2
--- NOTE | 2024-10-12 09:00 | PN.CARD_ITS ---
Subjective Subjective Patient seen and evaluated. Underwent cardiac catheterization today. Pain- free. Objective Data Vital Signs: Vital Signs Temp Pulse Resp BP Pulse Ox O2 Del Method FiO2 99 F 86 18 126/86 H 96 Room Air 21 10/11/24 18:00 10/12/24 06:00 10/12/24 06:00 10/12/24 06:00 10/12/24 06:00 10/12/24 06:00 10/12/24 01:30 Oxygen Delivery Method Room Air Weight: 205 lb 14.588 oz Body Mass Index (BMI) 40.1 Intake & Output: Intake and Output for Last 24 Hours 10/10/24 10/11/24 10/12/24 23:59 23:59 23:59 Intake Total 1584.17 / 1586.87 396.02 / 396.02 Balance 1584.17 / 1586.87 396.02 / 396.02 Lab / Micro Data 10/12/24 05:52 10/12/24 05:52 Labs: Laboratory Results - last 24 hr 10/11/24 08:50: WBC 8.1, RBC 4.80, Hgb 14.9, Hct 46.2, MCV 96.3, MCH 31.0, MCHC 32.3, RDW Std Deviation 46.0 H, RDW Coeff of Gold 12.9, Plt Count 290, MPV 10.3, Immature Gran % (Auto) 0.400, Neut % (Auto) 62.4, Lymph % (Auto) 30.4, [place] % (Auto) 5.7, Eos % (Auto) 0.6, Baso % (Auto) 0.5, Absolute Neuts (auto) 5.1, Absolute Lymphs (auto) 2.46, Nucleated RBC % 0, Sodium 143, Potassium 3.8, Chloride 103, Carbon Dioxide 26.7, Anion Gap 14, BUN 27 H, Creatinine 0.92, Estim Creat Clear Calc 51.74, Est GFR (MDRD) Non-Af 63, BUN/Creatinine Ratio 29.1 H, Glucose 170 H, Calcium 9.9, Magnesium 2.4 H, Troponin T High Sens 17 H, NT pro BNP II 1553, TSH 2.520 10/11/24 08:54: PT 23.6 H, INR 2.1, APTT 33.0 10/11/24 11:15: Troponin T Hi Sens 2 Hr 151 H* 10/11/24 12:58: Troponin T Hi Sens 4Hr 323 H* 10/11/24 19:46: APTT 79.6 H 10/12/24 03:28: APTT 90.2 H* 10/12/24 05:52: WBC 7.4, RBC 3.93 L, Hgb 12.5, Hct 37.8, MCV 96.2, MCH 31.8, MCHC 33.1, RDW Std Deviation 45.2 H, RDW Coeff of Gold 12.8, Plt Count 253, MPV 10.7, Immature Gran % (Auto) 0.400, Neut % (Auto) 73.0 H, Lymph % (Auto) 19.0, [place] % (Auto) 6.6, Eos % (Auto) 0.7, Baso % (Auto) 0.3, Absolute Neuts (auto) 5.4, Absolute Lymphs (auto) 1.41, Nucleated RBC % 0, Sodium 142, Potassium 3.5, Chloride 104, Carbon Dioxide 26.9, Anion Gap 11, BUN 21 H, Creatinine 0.84, Estim Creat Clear Calc 54.52, Est GFR (MDRD) Non-Af 70, BUN/Creatinine Ratio 24.7 H, Glucose 138 H, Calcium 9.2, TSH 2.760 Cardiology Labs/Tests 10/11/24 08:50: WBC 8.1, RBC 4.80, Hgb 14.9, Hct 46.2, MCV 96.3, MCH 31.0, MCHC 32.3, Plt Count 290, MPV 10.3, Immature Gran % (Auto) 0.400, Neut % (Auto) 62.4, Lymph % (Auto) 30.4, [place] % (Auto) 5.7, Eos % (Auto) 0.6, Baso % (Auto) 0.5, Absolute Neuts (auto) 5.1, Nucleated RBC % 0, Sodium 143, Potassium 3.8, Chloride 103, Carbon Dioxide 26.7, Anion Gap 14, BUN 27 H, Creatinine 0.92, Est GFR (MDRD) Non-Af 63, BUN/Creatinine Ratio 29.1 H, Glucose 170 H, Calcium 9.9, M agnesium 2.4 H 10/11/24 08:54: PT 23.6 H, INR 2.1, APTT 33.0 10/11/24 19:46: APTT 79.6 H 10/12/24 03:28: APTT 90.2 H* 10/12/24 05:52: WBC 7.4, RBC 3.93 L, Hgb 12.5, Hct 37.8, MCV 96.2, MCH 31.8, MCHC 33.1, Plt Count 253, MPV 10.7, Immature Gran % (Auto) 0.400, Neut % (Auto) 73.0 H, Lymph % (Auto) 19.0, [place] % (Auto) 6.6, Eos % (Auto) 0.7, Baso % (Auto) 0.3, Absolute Neuts (auto) 5.4, Nucleated RBC % 0, Sodium 142, Potassium 3.5, Chloride 104, Carbon Dioxide 26.9, Anion Gap 11, BUN 21 H, Creatinine 0.84, Est GFR (MDRD) Non-Af 70, BUN/Creatinine Ratio 24.7 H, Glucose 138 H, Calcium 9.2 Rhythm: EKG: ECHO: Stress Test: Cardiac Cath: PCI: CT Surgery: Holter monitor: EPS: PPM: CXR: Chest CT Scan: Radiography Diagnostic Testing: Radiology Impression Echocardiogram 10/11/24 09:50 Interpretation Summary Normal LV size. Moderate concentric left ventricular hypertrophy. The left ventricular ejection fraction is 50 %. [place] : Hypokinetic. Mild (1+) tricuspid valve insufficiency. Pulmonary artery systolic pressure is 30 mmHg. Ordering Physician: Lida Blum Referring Physician: Lida Blum Performed By: Alyson Sifuentes RCS Chest X-Ray 10/11/24 10:00 IMPRESSION: Lungs are clear. Chronic elevation of the left hemidiaphragm, stable since August 2018 Reading Location: [facility] Physical Exam Const alert, oriented x3 and no apparent distress General Appearance: cooperative HEENT hearing grossly normal bilaterally Head and Scalp: atraumatic Eyes EOMs intact bilaterally Neck General: normal visual inspection Chest inspection of chest normal and palpation of chest normal Resp normal respiratory effort Auscultation: clear to auscultation bilaterally Cardio S1 normal heart sound and S2 normal heart sound Jugular Venous Distention: JVD Rhythm: abnormal rhythm irregularly irregular GI normal to inspection, nondistended, normoactive bowel sounds Extremity normal capillary refill and no pedal edema Peripheral Pulses: Yes pulses 2+ throughout and femoral pulses present Skin no rashes or lesions noted Neuro oriented x3 and CN's II-XII intact bilaterally Psych Appearance: grossly normal and appropriate Assessment & Plan Assessment/Plan (1) Non-ST elevation DE (NSTEMI): PLAN: Patient presented with a non-ST elevation myocardial infarction underwent a cardiac catheterization which demonstrated mild eccentric plaque rupture noted in the proximal and mid left anterior descending artery. The rest of the vessels appeared to be free of significant disease. There was hypokinesis of the apex noted. Takotsubo cardiomyopathy cannot be completely excluded. Recommend continuing beta-jarod Continue ARB Low-dose Lasix which can later be switched to spironolactone Aspirin (2) Paroxysmal atrial fibrillation: PLAN: Will increase beta-jarod to metoprolol tartrate 50 mg twice a day Restart rivaroxaban in a.m. (3) Essential (primary) hypertension: PLAN: Blood pressure appears to be under good control on the current medical therapy. PLAN: Plan Recommend follow-up as outpatient with cardiology office. Patient says that she was previously been seen at the [facility] [place].
[2024-10-12 10:05] LABS: Cholesterol 178 mg/dL (<=200); Low Density Lipoprotein Calc. 107 mg/dL; Triglycerides 113 mg/dL; Very Low Density Lipoprotein 23 mg/dL (5-40); cholesterol:hdl ratio screen 3.69
--- NOTE | 2024-10-12 11:00 | CASEMGMT ---
JAMAR BENITO Assessment Face to Face with patient for initial transition planning/care coordination assessment. JAMAR BENITO introduced self and role at [facility], pt voices understanding. Pt is A&Ox4 and is resting comfortably in bed and is calm. Pt's daughter and SEKOU at bedside. Care providers, pharmacy, and demographics verified. Admitting dx: STEMI LACE Strata: 2 PCP: Chip Santos Specialists: Eddie ([facility]), Joshua ([facility]), Ele (Eye) Preferred Pharmacy: [facility] Insurance: [employer] , Prescription Benefit: Yes LNOK: Jhoana (Daughter) Living Arrangements: Pt lives alone in a single story home with 1 step to enter ADLs/IADLs: Pt reports that she is indep. 6-Click score is 21. No PT ordered Transportation: Self, daughter DME: Cane, FWW, Rollator, Shower chair, grab bars, BP Machine, Pox. Pt is 97% on RA. HHC/SNF: Hx with [facility] Pt?s goal: Home Plan: Home and to follow up with cardiology as an OP. Pt states that she already has an appt set up. Pt states that she has good support through her neighbors and family. Pt denies the need for HH, OP Tx, or CCN. Pt states that she feels safe returning home alone at the time of DC. Pt denies further questions or concerns now. Report given to EXTRACORPOREAL TECHNICIAN CM. Tato Lepe RN, CM
--- NOTE | 2024-10-12 16:11 | DS.PCM_ITS ---
Providers Date of Admission: 10/11/24 Primary Care Physician: Dr. Chip Santos MD Consultations 10/11/24 11:13 Consult: Cardiology Routine Consulting Provider: Lida Blum Reason for Consult: Chest Pain EMERGENT Consult: No MD Notified: Yes Date Notified: 10/11/24 Time Notified: 10:24 Method of Notification: ED Physician Initiated Reason For Visit: stemi Diagnosis Discharge Diagnosis (1) Atrial fibrillation with RVR: Status: Resolved Code(s): I48.91 - Unspecified atrial fibrillation Plan: Currently improved. Patient did receive digoxin in the emergency room. Unclear if she is actually taking both of those. Will need to clarify which one she is taking or if those are correct. The meantime patient will be on as needed IV metoprolol for heart rate greater than 160. Patient is already anticoagulated on rivaroxaban continue for now. Echocardiogram showed an EF 50%, hypokinetic apex. PASP 30 mm Hg. Changed metoprolol succinate 50/d to tartrate 50 BID. Resume rivaroxaban on the . (2) Chest pain: Status: Acute Code(s): R07.9 - Chest pain, unspecified Plan: Initial Troponin minimally elevated at 17, then went to 323. Not an actual STEMI despite a STEMI alert being called. LHC today showed mild eccentric plaque rupture noted in the proximal and mid left anterior descending artery. The rest of the vessels appeared to be free of significant disease. There was hypokinesis of the apex noted. Takotsubo cardiomyopathy cannot be completely excluded. Plan Hypertension: Continue with valsartan VTE prophylaxis: Not indicated patient is already on oxygen. [facility]. [facility]. Medications at Discharge Home Medications multivitamin with folic acid 400 mcg tablet 1 tab PO DAILY SUPPLEMENT 08/18/17 omega-3 fatty acids 1,000 mg capsule 2,000 mg PO DAILY supplement 09/04/18 valsartan 160 mg tablet 160 mg PO DAILY heart 09/04/18 furosemide 40 mg tablet 40 mg PO DAILY #60 tabs 10/02/18 rivaroxaban 20 mg tablet 20 mg PO DAILY 11/03/18 Held on 10/12/24. Instructions: Resume on 10/13/24. potassium 99 mg tablet 99 mg PO DAILY supplement 10/11/24 thiamine HCl (vitamin B1) 250 mg tablet 250 mg PO DAILY supplement 10/11/24 vit C 250 mg-vit E 90 mg-zinc 40 mg-copper 1 [id number]-ronyge-hjeupl capsule ([facility] AREDS-2) 1 tab PO BID eye vitamin 10/11/24 metoprolol tartrate 50 mg tablet 50 mg PO BID #60 tabs 10/12/24 Hospital Course Procedures 2-D Echocardiogram and Cardiac catheterization Summary of Care Provided Minutes Spent on Discharge: 32 Hospital Course: Patient presents with chest pain as well as epistaxis. Epistaxis did resolve but patient was still having chest pain. Troponins were slightly elevated up to 323. Patient underwent a echocardiogram that showed an EF of 50% with hypokinetic apex. Patient undergo a cardiac catheterization which showed mild eccentric plaque rupture in the proximal and mid left anterior descending artery. Left the vessel appeared to be free of significant disease. There was hypokinesis of the apex. Takotsubo cardiomyopathy could not be completely excluded. Recommend continuing beta-jarod and ARB. As well as low-dose furosemide. Patient's beta-jarod was changed from metoprolol succinate 50 daily to 50 twice daily. Weight / BMI Weight Weight: 93.4 kg Body Mass Index (BMI) 40.1 ABG / Lab / Microbiology Data 10/12/24 05:52 10/12/24 05:52 Laboratory: Laboratory Results - last 24 hr 10/11/24 19:46: APTT 79.6 H 10/12/24 03:28: APTT 90.2 H* 10/12/24 05:52: WBC 7.4, RBC 3.93 L, Hgb 12.5, Hct 37.8, MCV 96.2, MCH 31.8, MCHC 33.1, RDW Std Deviation 45.2 H, RDW Coeff of Gold 12.8, Plt Count 253, MPV 10.7, Immature Gran % (Auto) 0.400, Neut % (Auto) 73.0 H, Lymph % (Auto) 19.0, [place] % (Auto) 6.6, Eos % (Auto) 0.7, Baso % (Auto) 0.3, Absolute Neuts (auto) 5.4, Absolute Lymphs (auto) 1.41, Nucleated RBC % 0, Sodium 142, Potassium 3.5, Chloride 104, Carbon Dioxide 26.9, Anion Gap 11, BUN 21 H, Creatinine 0.84, Estim Creat Clear Calc 54.52, Est GFR (MDRD) Non-Af 70, BUN/Creatinine Ratio 24.7 H, Glucose 138 H, Calcium 9.2, Triglycerides 113, Cholesterol 178, LDL Cholesterol, Calc 107, VLDL Cholesterol 23, HDL Cholesterol 48, Cholesterol/HDL Ratio 3.69, TSH 2.760 Radiography Diagnostic Testing: Radiology Impression Echocardiogram 10/11/24 09:50 Interpretation Summary Normal LV size. Moderate concentric left ventricular hypertrophy. The left ventricular ejection fraction is 50 %. [place] : Hypokinetic. Mild (1+) tricuspid valve insufficiency. Pulmonary artery systolic pressure is 30 mmHg. Ordering Physician: Lida Blum Referring Physician: Lida Blum Performed By: Alyson Sifuentes RCS D/C Instructions Discharge Diet: No restrictions DC O2, CPAP, BIPAP Needs Home O2 Discharge instructions: No Meaningful Use Info Meaningful Use Meaningful Use Diagnoses (Choose all that apply): None applicable Ischemic Stroke Statin Dosing Therapy Reference: STATIN DOSE THERAPY REFERENCE: * Patients > 75 years receive moderate or high dose statin therapy. * Patients 75 years or YOUNGER should receive HIGH intensity statin dose unless contraindicated. You will be required to document reason for non-treatment if statin daily dose does not meet guidelines. HIGH DOSE STATIN THERAPY DAILY Atorvastatin > than or = to 40 mg Rosuvastatin > than or = to 20 mg Amlodipine + Atorvastatin > than or = to 2.5/40 mg Ezetimibe + Simvastatin 10/80 mg Simvastatin 80mg Discharge Plan Admission Admit Date/Time: 10/11/24 10:20 Primary Reason for Your Visit: Atrial fibrillation with RVR Attending Provider: Pramod Miranda Primary Care Provider: Chip Santos Consulting Providers: Lida Blum Instructions Additional Instructions / Restrictions: Follow up with cardiology in December. Discharge Orders/Prescriptions Prescriptions: New metoprolol tartrate 50 mg Tablet 50 mg PO BID Qty: 60 0RF Continued furosemide 40 mg tablet 40 mg PO DAILY Qty: 60 0RF multivitamin with folic acid 1 TABLET tablet 1 tab PO DAILY omega-3 fatty acids 1,000 MG capsule 2,000 mg PO DAILY valsartan 160 MG tablet 160 mg PO DAILY potassium 99 mg tablet 99 mg PO DAILY [facility] AREDS-2 250-90-40-1 mg capsule 1 tab PO BID thiamine HCl (vitamin B1) 250 mg tablet 250 mg PO DAILY Held rivaroxaban 20 mg tablet 20 mg PO DAILY Hold Instructions: Resume on 10/13/24. Discontinued metoprolol tartrate 50 mg tablet 50 mg PO DAILY metoprolol succinate 25 mg tablet extended release 24 hr 50 mg PO DAILY Referrals / Follow Up: Chip Santos MD [Primary Care Provider] - Within 2 Weeks Disposition Disposition (needs filled in before D/C Order can be placed): Home, Self Care Charges/Coding Visit Charges Inpatient E&M: 55348 Disch Hosp >30min
--- OUTSIDE RECORDS SUMMARY | 2024-10-14 01:07 | XMS RPT_ITS | CCD ---
Author Organization [facility] Care Team Providers Care Rn Medical Surgical Name Role Phone Chip Arreola Unavailable Chip Arreola MD Primary Care Provider Nick, [place] S Unavailable Tsering SINHA, PhD, Antonio Cardenas Unavailable David Galo MD Unavailable Dayanna Lewis MD Unavailable Chip Arreola MD Unavailable Dayanna Lewis MD Unavailable Bridgett Guzman RN Unavailable Chip Arreola MD Primary Care Provider Nick, Inocente S Unavailable Tsering SNIHA, PhD, Antonio Cardenas Unavailable David Galo MD Unavailable Dayanna Lewis MD Unavailable Chip Arreola MD Unavailable Dayanna Lewis MD Unavailable Bridgett Guzman RN Unavailable Nick, [place] S Unavailable Chip Arreola MD Unavailable Bridgett Guzman RN Unavailable Chip Arreola MD Primary Care Provider Chip Arreola MD Unavailable Chip Arreola MD Primary Care Provider Nick, Inocente S Unavailable Tsering SINHA, PhD, Antonio Cardenas Unavailable Clover SINHA, David Unavailable Joshua SINHA, Dayanna T Unavailable Chip Arreola MD Unavailable Dayanna Lewis MD Unavailable [facility] Bridgett ROLDAN Unavailable GINGER FLORES Attending Unavailable NO, PHYSICIAN Primary Care Unavailable No, Physician Primary Care Provider Unavailabl jackie Romero MD, Inocente S Unavailable Tsering SINHA, PhD, Antonio Cardenas Unavailable [facility] Bridgett ROLDAN Unavailable Chip Arreola MD Primary Care Provider Haagen FITNESS CONSULTANT.ANJEL Emelina Unavailable Suppan FITNESS CONSULTANT.ANJEL, Belkys A Unavailable Chip Arreola Referring Unavailable Elba, Chip Primary Care Unavailable Elmira Garnica NP Attending Unavailable Suppan FITNESS CONSULTANT.ANJEL, Belkys A Unavailable Suppan FITNESS CONSULTANT.ANJEL, Belkys A Unavailable [phone] Bridgett Guzman RN Unavailable ELBA, CHIP Cardenas Primary Care Unavailable SUPPAN, BELKYS A Referring Unavailable ELBA, CHIP Cardenas Primary Care Unavailable JUDEAN, BELKYS A Attending Unavailable ELBA, CHIP Cardenas Primary Care Unavailable ANUJ NAVARRO Referring Unavailable ANUJ NAVARRO Attending Unavailable SUPPAN, BELKYS A Attending Unavailable ELBA, CHIP Cardenas Primary Care Unavailable DAYANNA LEWIS T Referring Unavailable ELBA, CHIP Cardenas Primary Care Unavailable DAYANNA LEWIS T Attending Unavailable ELBA, CHIP J Primary Care Unavailable SELF Referring Unavailable ELBA, CHIP J Primary Care Unavailable SUPPAN, BELKYS A Attending Unavailable JUDEAN, BELKYS A Referring Unavailable ELBA, CHIP J Primary Care Unavailable DOMINGA REESE Attending Unavailable ELBA, CHIP J Primary Care Unavailable SUPPAN, BELKYS A Referring Unavailable ELBA, CHIP J Primary Care Unavailable SUPPAN, BELKYS A Referring Unavailable ELBA, CHIP Cardenas Primary Care Unavailable ELBA, CHIP Cardenas Primary Care Unavailable OWEN, PHOEBE Referring Unavailable OWEN, PHOEBE Attending Unavailable O'OLEG, BLOSSOM Attending Unavailable ELBA, CHIP J Primary Care Unavailable SUPPAN, BELKYS A Referring Unavailable O'OLEG, BLOSSOM Attending Unavailable ELBA, CHIP J Primary Care Unavailable SUPPAN, BELKYS A Referring Unavailable ELBA, CHIP J Primary Care Unavailable ELBA, CHIP J Referring Unavailable ELBA, CHIP J Primary Care Unavailable SUPPAN, BELKYS A Attending Unavailable ELBA, CHIP J Primary Care Unavailable SUPPAN, BELKYS A Attending Unavailable ELBA, CHIP J Primary Care Unavailable SUPPAN, BELKYS A Referring Unavailable O'OLEG, BLOSSOM Attending Unavailable ELBA, CHIP J Primary Care Unavailable SUPPAN, BELKYS A Referring Unavailable O'OLEG, BLOSSOM Attending Unavailable SUPPAN, BELKYS A Referring Unavailable ELBA, CHIP Cardenas Primary Care Unavailable O'OLEG, BLOSSOM Attending Unavailable ELBA, CHIP Cardenas Primary Care Unavailable SUPPAN, BELKYS A Referring Unavailable ELBA, CHIP Cardenas Primary Care Unavailable SUPPAN, BELKYS A Referring Unavailable O'OLEG, BLOSSOM Attending Unavailable SUPPAN, BELKYS A Referring Unavailable ELBA, CHIP Cardenas Primary Care Unavailable O'OLEG, BLOSSOM Attending Unavailable SUPPAN, BELKYS A Referring Unavailable ELBA, CHIP Cardenas Primary Care Unavailable O'OLEG, BLOSSOM Attending Unavailable SUPPAN, BELKYS A Referring Unavailable ELBA, CHIP Cardenas Primary Care Unavailable [place] , Dr. Saunders Primary Care Provider Dr. Lida Blum MD Admit Provider [phone] Lida Blum MD Attending Provider Dr. Lida Blum MD Referring Provider Dr. Lida Blum MD Other Provider Dr. Ruiz Reaves DO Emergency Provider Dr. Dayanna Miranda DO Attending Provider Allergies Allergy Classification Reported Allergen(s) Allergy Type Date of Onset Reaction(s) Facility (20 sources) Azithromycin; 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: [AZITHROMYCIN] Drug Allergy 2 Swelling, Rash [facility] Work Phone: (2 sources) *ADHESIVE TAPE Propensity to adverse reactions 8 [facility] Work Phone: (20 sources) anastrozole; 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: [ANASTROZOLE] Drug Allergy 9 Other: See Comments, Headache [facility] (20 sources) exemestane; 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: [EXEMESTANE] Drug Allergy 9 Other: See Comments [facility] (20 sources) Lisinopril; 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: [LISINOPRIL] Drug Allergy 0 Cough [facility] (20 sources) Adhesive Tape-Silicones; 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: [ADHESIVE TAPE-SILICONES] Propensity to adverse reactions to drug 0 Rash [facility] (20 sources) Silver-Hydrocoll oid Dressing; 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: [SILVER-HYDROCOL LOID DRESSING] Drug Intolerance 4 Itching [facility] (3 sources) Adhesive agent; 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: [adhesive] Allergy to substance 2 Itching, rash, redness [facility] (2 sources) Allantoin Drug Allergy 2 Rash, skin peeling [facility] (2 sources) Vitamin A Drug Allergy 2 Rash [facility] (1 source) Allantoin Drug Allergy 5 [facility] (1 source) Azithromycin Drug Allergy 5 [facility] (1 source) Lisinopril Drug Allergy 5 [facility] (1 source) Vitamin A Drug Allergy 5 [facility] Rep[facility] Medications Current Medications Medication Drug Class(es) Dates Sig (Normalized) Sig (Original) amoxicillin 500 mg oral capsule (20 sources) Penicillin-class Antibacterial Start: 12-26-2023 amoxicillin (AMOXIL) 500 mg capsule Take four capsules 20 minutes before procedure 4 capsule 12/26/2023 Active Start: 03-21-2022 End: 03-31-2022 take 1 tablet by mouth twice daily amoxicillin (AMOXIL) 875 mg tablet Indications: Bacterial sinusitis Take 1 tablet by mouth twice daily for 10 days. 20 tablet 0 03/21/2022 03/31/2022 Active Comment on above: Take 1 tablet by [facility] twice daily for 10 days. benoxinate hydrochloride 4 mg/ml / fluorescein sodium 3 mg/ml ophthalmic solution (2 sources) Diagnostic Dye Start: 10-31-19 End: 11-01-19 fluorescein-benoxi denys 0.3-0.4 % 1 Drop (FLURESS) betamethasone 0.5 mg/ml / clotrimazole 10 mg/ml topical lotion (5 sources) Azole Antifungal, Corticosteroid Start: 05-27-19 End: 06-11-19 clotrimazole-betam ethasone (LOTRISONE) lotion Indications: Itching with irritation Apply to affected area two times a day for 14 days. 30 mL 05/27/2024 06/10/2024 Active Calcium (1 source) Phosphate Binder, Calcium CALCIUM PO Take 1,000 mg by mouth. Active Calcium Carbonate / vitamin D3 (20 sources) calcium carbonate/vitamin D3 (CALCIUM WITH VITAMIN D3 ORAL) Take by mouth. Active cephalexin 500 mg oral capsule (5 sources) Cephalosporin Antibacterial Start: 04-19-19 End: 04-24-19 take 1 capsule by mouth twice daily cephALEXin (KEFLEX) 500 mg capsule Indications: Infected abrasion of left lower extremity, initial encounter Take 1 capsule by mouth two times a day for 5 days. 10 capsule 04/19/2024 04/24/2024 Active Start: 04-14-2022 End: 04-24-2022 cephALEXin (KEFLEX) 500 mg c apsule Take 500 mg by mouth. 0 04/14/2022 04/24/2022 Active Comment on above: Take 500 mg by mouth . furosemide 40 mg oral tablet (20 sources) Loop Diuretic Start: 10-02-2018 End: 11-03-2024 take 1 tablet by mouth once daily furosemide (LASIX) 40 mg tablet Indications: Bilateral leg edema , Congestive heart failure, unspecified HF chronicity, unspecified heart failure type (HCC) Take 1 tablet by mouth once daily. 90 tablet 3 10/04/2024 Active Start: 09-07-2018 End: 10-02-2018 take 1 tablet by mouth twice daily Furosemide 40 MG tablet Discontinued 40 mg PO BID@1000,1800 60 0 September 07, 2018 12:00am October 02, 2018 12:17pm Comment on above: Take 1 tablet by gabrielle th once daily. lisinopril 5 mg oral tablet (1 source) Angiotensin Converting Enzyme Inhibitor Start: 8 lisinopril 5 MG Tab tablet Take 5 mg by mouth. 10/09/2017 Active melatonin 1 mg oral tablet (20 sources) End: 5 take 2 tablets by mouth once daily at bedtime melatonin 1 mg tablet Take 2 mg by mouth daily at bedtime. 05/27/2024 Discontinued (Discontinued by Patient) 24 hr metoprolol succinate 50 mg extended release oral tablet (20 sources) beta-Adrenergic Jarod Start: 2 End: 4 take 1 tablet by mouth once daily metoprolol succinate ER (TOPROL XL) 50 mg 24 hr tablet Indications: Persistent atrial fibrillation (HCC) Take 1 tablet by mouth once daily. 90 tablet 3 04/05/2024 Active Start: 03-25-2022 take 1 tablet by gabrielle th once daily Metoprolol Tartrate 50 mg tablet Active 50 mg PO DAILY March 25, 2022 2:49pm Start: 05-21-2021 End: 03-25-2022 take 1 tablet by mouth once daily Metoprolol Succinate 25 mg tablet extended release 24 hr Active 25 mg PO DAILY March 25, 2022 1:00am Start: 07-02-2019 End: 03-25-2022 take 1 tablet by mouth twice daily Metoprolol Tartrate 50 mg tablet Discontinued 50 mg PO TWICE A DAY 180 3 July 02, 2019 11:08am March 25, 2022 2:50pm Start: 01-08-2019 End: 07-02-2019 Metoprolol Tartrate 100 mg t ablet Discontinued 50 mg PO TWICE A DAY 60 0 January 08, 2019 9:57am July 02, 2019 11:05am Start: 01-08-2019 End: 07-02-2019 take 50 mg by mouth twice daily Metoprolol Tartrate Di scontinued 50 MG PO TWICE A DAY 60 January 08, 2019 8:57am July 02, 2019 10:05am Start: 09-07-2018 End: 01-08-2019 take 1 tablet by mouth twice daily Metoprolol Tartrate 100 MG tablet Discontinued 100 mg PO TWICE A DAY 60 0 September 07, 2018 12:00am January 08, 2019 9:57am End: 07-17-2020 take 1 tablet by mouth once daily metoprolol tartrate, short acting, (LOPRESSOR) 50 mg tablet Take 50 mg by mouth once daily. 07/17/2020 Discontinued (Course of therapy completed) Comment on above: Take 1 tablet by gabrielle th once daily. ujfperxm-pte-agcnloa sulfate 4.5 mg iron Tab (1 source) Start: 10-04-19 10 take 1 tablet by mouth once xoietgin-jgi-basjteg sulfate 4.5 mg iron Tab Take 1 (one) tablet by mouth . 0 10/03/2009 Active Multivitamin With Folic Acid (1 source) Start: 08-19-19 18 take 1 tablet by mouth once daily Multivitamin With Folic Acid Active 1 TABLET PO DAILY August 17, 2017 11:00pm Multivitamin With Folic Acid 1 TABLET tablet (1 source) Start: 08-19-19 18 take 1 tablet by mouth once daily Multivitamin With Folic Acid 1 TABLET tablet Active 1 {tbl} PO DAILY August 18, 2017 12:00am SUPPLEMENT Multivitamins Po Caps (1 source) take 1 capsule by mouth once daily Multiple Vitamin (MULTIVITAMIN) Cap Take 1 capsule by mouth daily. Active multivitamins(DAILY MULTIVITAMIN TAB) (20 sources) Start: 10-04-19 10 multivitamins(DAILY MULTIVITAMIN TAB) Take one(1) tablet daily. 0 10/03/2009 Active Comment on above: Take one(1) tablet d aily. omega-3 acid ethyl esters (mcfp) 1000 mg oral capsule (1 source) Start: 07-01-19 12 [place]-3 Fatty Acids (FISH OIL) 1000 MG Cap Take by mouth. 07/01/2011 Active [place]-3 Fatty Acids (1 source) Start: 09-05-19 19 take 2000 mg by mouth once daily [place]-3 Fatty Acids Active 2000 MG PO DAILY September 03, 2018 11:00pm [place]-3 Fatty Acids 1,000 MG capsule (1 source) Start: 09-05-19 19 take 1 capsule by mouth once daily [place]-3 Fatty Acids 1,000 MG capsule Active 2000 mg PO DAILY September 04, 2018 12:00am supplement perflutren lipid microspheres 1.3 mL in NaCl (PF) 0.9% 10 mL injection (DEFINITY) (20 sources) Start: 02-25-20 End: 05-25-19 perflutren lipid microspheres 1.3 mL in NaCl (PF) 0.9% 10 mL injection (DEFINITY) phenylephrine hydrochloride 25 mg/ml ophthalmic solution (2 sources) alpha-1 Adrenergic Agonist Start: 10-31-19 End: 11-01-19 PHENYLephrine 2.5 % 1 Drop (AK-DILATE, FARTUN-SYNEPHRINE) Potassium (20 sources) take 1 capsule by mouth once daily POTASSIUM ORAL Take 1 capsule by mouth once daily. Active take 1 capsule by mouth once dorian ly POTASSIUM ORAL Take 1 capsule by mouth once daily. 0 Active proparacaine hydrochloride 5 mg/ml ophthalmic solution (1 source) Local Anesthetic Start: 10-31-2023 End: 11-01-2023 proparacaine 0.5 % 1 Drop (ALCAINE) 125 ml sodium chloride 9 mg/ml prefilled syringe (20 sources) Start: 02-24-2023 End: 05-25-2024 sodium chloride 0.9 % (flush) 10 mL (BD POSIFLUSH) thiamine 250 mg oral tablet (20 sources) take 250 mg by mouth once daily thiamine HCl (VITAMIN B-1 ORAL) Take 250 mg by mouth once daily. Active thiamine HCl ( TAMIN B-1 ORAL) Take by mouth. 0 Active Comment on above: Take by mouth. Take 250 mg by mouth once daily. tropicamide 10 mg/ml ophthalmic solution (2 sources) Anticholinergic Start: 10-31-19 End: 11-01-19 tropicamide 1 % 1 Drop (MYDRIACYL) valsartan 160 mg oral tablet (20 sources) Angiotensin 2 Receptor Jarod Start: 07-27-19 take 1 tablet by mouth once daily valsartan (DIOVAN) 160 mg tablet Take 1 tablet by mouth once daily. 90 tablet 3 07/26/2024 Active Start: 09-04-2018 End: 07-24-2024 take 1 tablet by mouth once daily valsartan (DIOVAN) 160 mg tablet Take 1 tablet by mouth once daily. 90 tablet 3 06/27/2023 07/24/2024 Discontinued Comment on above: Take 1 tablet by gabrielle once daily. Vit C,E,Zn,Xa-Vynnw8-Rzk-Ze ax (1 source) Start: 03-25-2022 Vit C,E,Zn,Yg-Ohrap2-Qkm-Ze ax Active CAP PO March 25, 2022 12:00am vit C,P-Jg-ziocg-lutein-michael andrew (PRESERVISION AREDS-2) 250-90-40-1 mg (20 sources) vit C,U-Uf-ghehy-lutein-michael andrew (PRESERVISION AREDS-2) 250-90-40-1 mg Take 1 capsule by mouth twice daily with meals. Active vit C,E-Zn-coppr -lutein-zeaxan (PRESERVISION AREDS-2) 250-90-40-1 mg Take 1 capsule by mouth twice daily with meals. 0 Active Comment on above: Take 1 capsule by mo uth twice daily with meals. Zinc Sulfate (1 source) Zinc Sulfate (ZI NC 15 PO) Take by mouth. Active Completed/Discontinued Medications Medication Drug Class(es) Dates Sig (Normalized) Sig (Original) amiodarone hydrochloride 200 mg oral tablet (7 sources) Antiarrhythmic Start: 11-03-2018 End: 10-11-2024 take 1 tablet by mouth once daily Amiodarone 200 mg tablet Discontinued 200 mg PO DAILY November 03, 2018 1:51pm October 11, 2024 8:58am Start: 10-02-2018 End: 11-03-2018 take 1 tablet by mouth twice daily Amiodarone 200 mg tablet Discontinued 200 mg PO TWICE A DAY 60 0 October 02, 2018 12:00am November 03, 2018 1:52pm Start: 09-07-2018 End: 10-02-2018 take 1 tablet by mouth three times daily, then take 1 tablet by mouth twice daily, then take 1 tablet by mouth once daily Amiodarone 200 MG tablet Discontinued 200 mg PO THREE TIMES A DAY 54 0 September 07, 2018 12:00am October 02, 2018 12:16pm 200 mg PO TID x 7 days, then 200 mg PO BID x 14 days, then 200 mg PO qd x 7 days. Next dose tonight 09/08/2018 amLODIPine 5 mg oral tablet (2 sources) Dihydropyridine Calcium Channel Jarod Start: 09-07-2018 End: 10-02-2018 take 1 tablet by mouth once daily Amlodipine 5 MG tablet Discontinued 5 mg PO DAILY 30 0 September 07, 2018 12:00am October 02, 2018 12:16pm ascorbic acid 500 mg oral tablet (17 sources) Vitamin C End: 12-24-2021 take 500 mg by mouth once daily ascorbic acid (VITAMIN C ORAL) Take 500 mg by mouth once daily. 12/24/2021 Discontinued ascorbic acid (V ITAMIN C ORAL) Take by mouth. 0 Active Comment on above: Take by mouth. Take 500 mg by mouth once daily. aspirin 81 mg delayed release oral tablet (20 sources) Platelet Aggregation Inhibitor, Nonsteroidal Anti-inflammatory Drug Start: 2 End: 3 take 1 tablet by mouth once daily aspirin, enteric coated (ASPIRIN, ENTERIC COATED) 81 mg EC tablet Indications: Paroxysmal atrial fibrillation (HCC) Take 1 tablet by mouth once daily. 04/27/2021 04/15/2022 Discontinued Comment on above: Take 1 tablet by gabrielle th once daily. atenolol 50 mg oral tablet (7 sources) beta-Adrenergic Jarod Start: 9 End: 9 take 1 tablet by mouth twice daily Atenolol 50 MG tablet Discontinued 50 mg PO TWICE A DAY September 04, 2018 12:00am September 07, 2018 11:34am heart Start: 02-23-2018 take 1 tablet by gabrielle th twice daily atenolol 50 MG Tab tablet Take 50 mg by mouth 2 times daily. 0 02/23/2018 Active Start: 08-19-2017 End: 07-11-2018 take 1 tablet by mouth once daily Atenolol 100 MG tablet Discontinued 100 mg PO DAILY 30 0 August 19, 2017 12:00am July 11, 2018 4:18pm Start: 08-18-2017 End: 08-19-2017 take 1 tablet by mouth once daily Atenolol (Tenormin) 50 MG tablet Discontinued 50 mg PO DAILY August 18, 2017 12:00am August 19, 2017 11:26am BLOOD PRESSURE cholecalciferol 0.05 mg oral capsule (20 sources) Vitamin D Start: 09-04-2018 End: 10-11-2024 take 1 capsule by mouth once daily Cholecalciferol (Vitamin D3) 2,000 UNIT capsule Discontinued 2000 U PO DAILY September 04, 2018 12:00am October 11, 2024 8:59am supplement Start: 07-24-2017 take 1 capsule by mo uth once daily cholecalciferol, vitamin D3, 125 mcg (5,000 unit) capsule Take 1 (one) capsule (5,000 Units total) by mouth daily . 0 07/24/2017 Active Start: 07-24-2017 take 1 capsule by mo uth once, then take 600 [IU] by mouth Cholecalciferol (D 5000) 5000 units Cap capsule Take 5,000 Units by mouth. Takes 600 IU 07/24/2017 Active Comment on above: Take 1 capsule by mo uth once daily. cholecalciferol, vitamin D3, (VITAMIN D3 ORAL) (17 sources) End: 12-24-2021 cholecalciferol, vitamin D3, (VITAMIN D3 ORAL) Take by mouth. 12/24/2021 Discontinued End: 12-24-2021 cholecalciferol, vitamin D3, (VITAMIN D3 ORAL) Take by mouth. 0 12/24/2021 Discontinued cholecalciferol, vitamin D3, (VITAMIN D3 ORAL) Take by mouth. 0 Active Comment on above: Take by mouth. gabapentin 100 mg oral capsule (8 sources) Anti-epileptic Agent Start: 4 End: 5 take 1 capsule by mouth three times daily Gabapentin 100 mg capsule Discontinued 100 mg PO THREE TIMES A DAY April 08, 2024 1:00am October 11, 2024 8:59am 10 ml lidocaine hydrochloride 10 mg/ml injection (8 sources) Antiarrhythmic, Amide Local Anesthetic Start: 5 End: 5 lidocaine (PF) 10 mg/mL (1 %) 4 mL injection (XYLOCAINE) Start: 10-07-2024 End: 10-07-2024 4 mL, Injection - FOR ORTHO USE ONLY, ONCE, 1 dose, Starting on Jael 7 at 0914, Until Jael 7//25 at 0914 Start: 06-24-2024 End: 06-24-2024 lidocaine (PF) 10 mg/mL (1 % ) 4 mL injection (XYLOCAINE) Start: 06-24-2024 End: 06-24-2024 4 mL, Injection - FOR ORTHO USE ONLY, ONCE, 1 dose, Starting on Jael 06/24/24 at 0855, Until Jael 06/24/24 at 0855 Magnesium (18 sources) End: 12-24-2021 take 1 tablet by mouth once daily Magnesium 250 mg tab Take 250 mg by mouth once daily. 12/24/2021 Discontinued End: 12-24-2021 take 1 tablet by mouth once daily Magnesium 250 mg tab Take 250 mg by mouth once daily. 0 12/24/2021 Discontinued take 1 tablet by gabrielle th once daily Magnesium 250 mg tab Take 250 mg by mouth once daily. 0 Active Magnesium 250 mg tab Take 250 mg by mouth. 0 Active MAGNESIUM PO Ady e 400 mg by mouth. Active Comment on above: Take 250 mg by mouth . Take 250 mg by mouth once daily. magnesium oxide 400 mg oral tablet (20 sources) Start: 4 End: 5 take 1 tablet by mouth once daily magnesium oxide 400 mg magnesium tab Take 400 mg by mouth once daily. 10/08/2023 10/04/2024 Discontinued (Discontinued by Patient) microencapsulated potassium chloride 20 meq extended release oral tablet (5 sources) Start: 4 End: 4 take 1 tablet by mouth twice daily potassium chloride ER (KLOR-CON) 20 mEq tablet Indications: Hypokalemia Take 1 tablet by mouth two times a day. 180 tablet 3 06/19/2023 06/19/2023 Discontinued Start: 11-12-2018 End: 01-06-2019 take 1 tablet by mouth once daily Potassium Chloride 20 mEq tablet extended release Discontinued 20 meq PO DAILY November 12, 2018 12:00am January 06, 2019 10:43am Start: 09-07-2018 End: 10-02-2018 take 2 tablets by mouth once daily at mealtime Potassium Chloride 20 MEQ tablet Discontinued 40 meq PO DAILY WITH MEALS 60 0 September 07, 2018 12:00am October 02, 2018 12:14pm Start: 09-07-2018 End: 10-02-2018 take 40 mEq by mouth once daily at mealtime Potassium Chloride Discontinued 40 MEQ PO DAILY WITH MEALS 60 September 06, 2018 11:00pm October 02, 2018 11:14am Comment on above: Take 1 tablet by gabrielle th two times a day. rivaroxaban 20 mg oral tablet (20 sources) Factor Xa Inhibitor Start: 10-10-19 18 End: 04-01-20 24 take 1 tablet by mouth once daily Rivaroxaban 20 MG tablet Discontinued 20 mg PO DAILY May 05, 2018 1:00am November 03, 2018 1:29pm Comment on above: Take 1 tablet by gabrielle th daily with dinner. 1 ml triamcinolone acetonide 40 mg/ml injection (8 sources) Corticosteroid Start: 10-08-19 End: 10-08-19 triamcinolone acetonide 40 mg injection (KeNALog 40) Start: 10-07-2024 End: 10-07-2024 40 mg, Injection - FOR ORTHO USE ONLY, ONCE, 1 dose, Starting on Jael 10/07/24 at 0914, Until Jael 10/07/24 at 0914 Start: 06-24-2024 End: 06-24-2024 triamcinolone acetonide 40 m g injection (KeNALog 40) Start: 06-24-2024 End: 06-24-2024 40 mg, Injection - FOR ORTHO USE ONLY, ONCE, 1 dose, Starting on Jael 06/24/24 at 0855, Until Jael 06/24/24 at 0855 Vit C,E,Zn,Im-Mcgtg5-Vpj-Zeax 250-2.5-0.5 mg capsule (1 source) Start: 03-25-2022 End: 10-11-2024 Vit C,E,Zn,Gq-Euuev1-Rfs-Zeax 250-2.5-0.5 mg capsule Discontinued NMA PO March 25, 2022 1:00am October 11, 2024 8:59am zinc acetate 50 mg oral capsule (17 sources) End: 12-24-2021 take 50 mg by mouth once daily ZINC ACETATE ORAL Take 50 mg by mouth once daily. 12/24/2021 Discontinued Comment on above: Take 50 mg by mouth once daily. Problems Active Problems Problem Classification Problem Date Documented Da te Episodic/Chronic Acute myocardial infarction (1 source) Myocardial infarction; 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: [Non-ST elevation (NSTEMI) myocardial infarction] 10-11-2024 Chronic Cancer of breast (20 sources) Malignant neoplasm of lower-inner quadrant of female breast; 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: [Malignant neoplasm of female breast] Onset: 02-24-2018 Resolved: 10-23-2021 03-02-2018 Chronic Cardiac dysrhythmias (20 sources) Paroxysmal atrial fibrillation; 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: [Paroxysmal atrial fibrillation] Onset: 08-18-2017 04-27-2021 Chronic Cataract (20 sources) Artificial lens present; 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: [Presence of intraocular lens] Onset: 05-02-2023 05-02-2023 Chronic Chronic kidney disease (20 sources) Chronic kidney disease stage 3; 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: [CKD (chronic kidney disease) stage 3, GFR 30-59 ml/min] Onset: 10-29-2021 Resolved: 10-16-2022 10-29-2021 Chronic Chronic kidney disease (1 source) Chronic kidney disease; 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: [Chronic kidney disease, stage 3a (HCC)] Onset: 10-04-2024 Congestive heart failure; nonhypertensive (20 sources) Chronic diastolic heart failure; 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: [Chronic diastolic (congestive) heart failure] Onset: 09-24-2018 07-11-2020 Chronic Diabetes mellitus with complications (20 sources) Type 2 diabetes mellitus; 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: [Type 2 diabetes mellitus with diabetic chronic kidney disease] Onset: 04-15-2022 Chronic Essential hypertension (20 sources) Benign essential hypertension; 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: [Essential (primary) hypertension] Onset: 07-01-2011 03-04-2020 Chronic Fluid and electrolyte disorders (2 sources) Hypokalemia; 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: [Hypokalemia] Episodic Heart valve disorders (2 sources) Tricuspid incompetence, non-rheumatic ; 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: [Nonrheumatic tricuspid (valve) insufficiency] 07-02-2019 Chronic Nonspecific chest pain (2 sources) Chest pain; 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: [Chest pain, unspecified] 10-11-2024 Episodic Nutritional deficiencies (2 sources) Vitamin D deficiency; 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: [Vitamin D deficiency, unspecified] Onset: 05-27-2024 05-27-2024 Chronic Other aftercare (20 sources) Long-term current use of anticoagulant; 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: [FPC (current) use of anticoagulants] Onset: 04-15-2022 Episodic Other connective tissue disease (20 sources) History of bilateral total knee replacement; 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: [Presence of artificial knee joint, bilateral] Onset: 09-24-2011 03-04-2020 Chronic Other connective tissue disease (20 sources) History of reverse prosthetic total arthroplasty of right shoulder; 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: [Presence of right artificial shoulder joint] Onset: 03-04-2020 10-23-2021 Chronic Other connective tissue disease (20 sources) Rotator cuff arthropathy of right shoulder; 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: [Unspecified rotator cuff tear or rupture of right shoulder, not specified as traumatic] Onset: 06-24-2016 09-18-2019 Episodic Other connective tissue disease (20 sources) Rotator cuff arthropathy of left shoulder; 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: [Unspecified rotator cuff tear or rupture of left shoulder, not specified as traumatic] Onset: 04-13-2020 04-13-2020 Episodic Other connective tissue disease (1 source) Radial styloid tenosynovitis; 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: [Radial styloid tenosynovitis [de Quervain]] Episodic Other connective tissue disease (2 sources) Pain in left lower limb; 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: [Pain in left leg] 03-12-2023 Episodic Other connective tissue disease (1 source) Falls; 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: [Repeated falls] 10-04-2024 Episodic Other connective tissue disease (2 sources) Repeated falls; 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: [Falling episodes] Onset: 03-29-2024 Episodic Other endocrine disorders (2 sources) Disorder of parathyroid gland; 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: [Disorder of parathyroid gland, unspecified] 10-06-2024 Chronic Other eye disorders (20 sources) Bilateral posterior vitreous detachment; 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: [Vitreous degeneration, bilateral] Onset: 05-02-2023 05-02-2023 Chronic Other hereditary and degenerative nervous system conditions (20 sources) Essential tremor; 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: [Essential tremor] Onset: 06-22-2020 06-22-2020 Chronic Other inflammatory condition of skin (1 source) Itching ; 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: [Pruritus, unspecified] 05-27-2024 Episodic Other nervous system disorders (1 source) Other chronic pain; 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: [Chronic right shoulder pain] Onset: 06-24-2024 Chronic Other nervous system disorders (1 source) Tremor; 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: [Tremor, unspecified] 03-09-2024 Episodic Other nervous system disorders (1 source) Abnormal gait; 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: [Unspecified abnormalities of gait and mobility] 10-04-2024 Episodic Other nervous system disorders (1 source) Unspecified abnormalities of gait and mobility; 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: [Abnormality of gait] Onset: 10-04-2024 Episodic Other non-traumatic joint disorders (1 source) Other specific arthropathies, not elsewhere classified, right shoulder; 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: [Rotator cuff tear arthropathy, right] Onset: 05-16-2022 Chronic Other non-traumatic joint disorders (1 source) Other specific arthropathies, not elsewhere classified, left shoulder; 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: [Rotator cuff tear arthropathy, left] Onset: 04-13-2020 Chronic Other non-traumatic joint disorders (1 source) Pain of right wrist; 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: [Pain in right wrist] Episodic Other non-traumatic joint disorders (2 sources) Pain of right shoulder joint; 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: [Pain in right shoulder] Episodic Other non-traumatic joint disorders (1 source) Pain in left knee; 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: [Pain in joint, lower leg] 03-04-2020 Episodic Other nutritional; endocrine; and metabolic disorders (20 sources) Body mass index 40+ - severely obese; 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: [Morbid (severe) obesity due to excess calories] Onset: 08-01-2017 03-04-2020 Chronic Other nutritional; endocrine; and metabolic disorders (2 sources) Morbid (severe) obesity due to excess calories; 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: [Morbid (severe) obesity due to excess calories] Onset: 10-23-2021 Chronic Other nutritional; endocrine; and metabolic disorders (1 source) Body mass index (BMI) 39.0-39.9, adult; 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: [Body mass index [BMI] 39.0-39.9, adult] Onset: 04-09-2024 Chronic Other nutritional; endocrine; and metabolic disorders (1 source) Hypercalcemia; 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: [Hypercalcemia] 10-04-2024 Chronic Other nutritional; endocrine; and metabolic disorders (1 source) Hypercalcemia; 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: [Hypercalcemia] Onset: 10-04-2024 Chronic Other nutritional; endocrine; and metabolic disorders (2 sources) Body mass index (BMI) 40.0-44.9, adult; 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: [Body mass index (BMI) 40.0-44.9, adult ([facility])] Onset: 10-23-2021 Chronic Other nutritional; endocrine; and metabolic disorders (1 source) Obesity; 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: [Obesity, unspecified] 04-08-2024 Chronic Other upper respiratory infections (1 source) Recurrent acute sinusitis; 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: [Acute recurrent sinusitis, unspecified] 12-26-2023 Episodic Pulmonary heart disease (20 sources) Pulmonary hypertension; 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: [Pulmonary hypertension, unspecified] Onset: 09-24-2018 Resolved: 04-15-2022 09-24-2018 Chronic Residual codes; unclassified (20 sources) Obstructive sleep apnea syndrome; 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: [Obstructive sleep apnea (adult) (pediatric)] Onset: 04-15-2022 Chronic Residual codes; unclassified (1 source) Obstructive sleep apnea (adult) (pediatric); 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: [Obstructive sleep apnea (adult) (pediatric)] Onset: 04-09-2024 Chronic Residual codes; unclassified (1 source) Bilateral lower limb edema; 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: [Localized edema] 10-04-2024 Episodic Residual codes; unclassified (1 source) Localized edema; 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: [Bilateral leg edema] Onset: 10-04-2024 Episodic Retinal detachments; defects; vascular occlusion; and retinopathy (20 sources) Nonexudative age-related macular degeneration; 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: [Nonexudative age-related macular degeneration, bilateral, intermediate dry stage] Onset: 05-02-2023 05-02-2023 Chronic Spondylosis; intervertebral disc disorders; other back problems (20 sources) Disorder of joint of spine; 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: [Other spondylosis with radiculopathy, lumbar region] Onset: 02-21-2021 02-21-2021 Chronic Spondylosis; intervertebral disc disorders; other back problems (2 sources) Low back pain; 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: [Low back pain, unspecified back pain laterality, unspecified chronicity, unspecified whether sciatica present] 03-09-2024 Episodic Unclassified (1 source) Obesity, class 2; 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: [Obesity, class 2] Onset: 04-09-2024 Unclassified (1 source) Other persistent atrial fibrillation; 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: [Persistent atrial fibrillation (HCC)] Onset: 03-24-2022 Unclassified (1 source) Low back pain, unspecified back pain laterality, unspecified chronicity, unspecified whether sciatica present; 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: [Low back pain, unspecified back pain laterality, unspecified chronicity, unspecified whether sciatica present] Onset: 03-09-2024 Past or Other Problems Problem Classification Problem Date Documented Date Episodic/Chronic Allergic reactions (20 sources) Solar degeneration; 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: [Other skin changes due to chronic exposure to nonionizing radiation] Onset: 07-26-2010 Resolved: 07-01-2011 07-01-2011 Episodic Appendicitis and other appendiceal conditions (20 sources) Acute appendicitis; 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: [Unspecified acute appendicitis] Onset: 03-04-2010 Resolved: 08-06-2012 08-06-2012 Episodic Complication of device; implant or graft (8 sources) Prosthetic joint infection; 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: [Infection and inflammatory reaction due to unspecified internal joint prosthesis, initial encounter] Onset: 03-04-2020 03-04-2020 Episodic Diabetes mellitus without complication (20 sources) Type 2 diabetes mellitus without complication; 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: [Type 2 diabetes mellitus without complications] Onset: 04-11-2016 Resolved: 10-16-2022 04-11-2016 Chronic Fracture of upper limb (20 sources) Closed fracture of distal end of radius; 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: [Other intraarticular fracture of lower end of right radius, initial encounter for closed fracture] Onset: 09-10-2021 Resolved: 04-15-2022 Episodic Genitourinary symptoms and ill-defined conditions (20 sources) Microalbuminuria; 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: [Proteinuria, unspecified] Onset: 10-29-2021 Resolved: 12-24-2021 10-29-2021 Episodic Infective arthritis and osteomyelitis (except that caused by tuberculosis or sexually transmitted disease) (20 sources) Pyogenic arthritis of shoulder region; 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: [Pyogenic arthritis, unspecified] Onset: 10-07-2018 Resolved: 10-23-2021 10-07-2018 Episodic Nonmalignant breast conditions (20 sources) Pain of breast; 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: [Mastodynia] Onset: 12-03-2019 Resolved: 04-27-2021 04-27-2021 Episodic Osteoarthritis (20 sources) Osteoarthritis of joint of right shoulder region; 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: [Primary osteoarthritis, right shoulder] Onset: 09-09-2011 Resolved: 04-15-2022 06-24-2016 Chronic Other circulatory disease (20 sources) H/O: heart disorder; 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: [Personal history of other diseases of the circulatory system] Onset: 02-24-2023 02-24-2023 Episodic Other circulatory disease (1 source) Personal history of other diseases of the circulatory system; 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: [H/O mitral valve disease] Onset: 02-24-2023 Episodic Other connective tissue disease (20 sources) Full thickness rotator cuff tear; 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: [Complete rotator cuff tear or rupture of right shoulder, not specified as traumatic] Onset: 06-24-2016 Resolved: 04-15-2022 06-24-2016 Episodic Other connective tissue disease (20 sources) Trochanteric bursitis of right hip; 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: [Trochanteric bursitis, right hip] Onset: 02-21-2021 Resolved: 04-15-2022 02-21-2021 Episodic Other connective tissue disease (20 sources) Unspecified rotator cuff tear or rupture of unspecified shoulder, not specified as traumatic; 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: [Rotator cuff (capsule) sprain] Onset: 04-03-2010 Resolved: 04-11-2016 04-11-2016 Episodic Other connective tissue disease (20 sources) Recurrent falls ; 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: [Repeated falls] Onset: 03-29-2024 03-09-2024 Episodic Other connective tissue disease (1 source) Unspecified rotator cuff tear or rupture of right shoulder, not specified as traumatic; 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: [Rotator cuff tear arthropathy, right] Onset: 05-16-2022 Episodic Other connective tissue disease (1 source) Unspecified rotator cuff tear or rupture of left shoulder, not specified as traumatic; 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: [Rotator cuff tear arthropathy, left] Onset: 04-13-2020 Episodic Other non-traumatic joint disorders (20 sources) Chronic pain of right upper limb; 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: [Pain in right shoulder] Onset: 08-03-2018 Resolved: 04-15-2022 08-03-2018 Episodic Other non-traumatic joint disorders (8 sources) Pain in right hip joint; 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: [Pain in right hip] Onset: 02-15-2021 Resolved: 04-15-2022 Episodic Other non-traumatic joint disorders (20 sources) Pain in wrist; 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: [Pain in right wrist] Onset: 08-22-2021 Resolved: 04-15-2022 Episodic Other non-traumatic joint disorders (20 sources) Pain in lower limb; 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: [Pain in unspecified knee] Onset: 09-24-2011 Resolved: 03-21-2016 03-21-2016 Episodic Other non-traumatic joint disorders (20 sources) Hip pain; 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: [Pain in right hip] Onset: 02-15-2021 Resolved: 04-15-2022 04-15-2022 Episodic Other non-traumatic joint disorders (1 source) Pain in right shoulder; 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: [Chronic right shoulder pain] Onset: 06-24-2024 Episodic Other non-traumatic joint disorders (1 source) Pain in right hip; 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: [Pain of right hip] Onset: 05-27-2024 Episodic Other screening for suspected conditions (not mental disorders or infectious disease) (20 sources) Patient encounter status; 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: [Encounter for other screening for malignant neoplasm of breast] Onset: 04-10-2010 Resolved: 07-01-2011 11-08-2022 Episodic Other skin disorders (20 sources) Seborrheic keratosis; 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: [Other seborrheic keratosis] Onset: 07-26-2010 Resolved: 07-01-2011 07-01-2011 Episodic Other skin disorders (20 sources) Solar lentigo; 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: [Other melanin hyperpigmentation] Onset: 07-26-2010 Resolved: 07-01-2011 07-01-2011 Episodic Residual codes; unclassified (20 sources) Family history of breast cancer; 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: [Family history of malignant neoplasm of breast] Onset: 07-01-2011 Resolved: 04-15-2022 07-01-2011 Episodic Residual codes; unclassified (20 sources) Pain; 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: [Pain, unspecified] Onset: 02-15-2021 Resolved: 04-15-2022 04-15-2022 Episodic Residual codes; unclassified (1 source) Estrogen receptor positive status [ER+]; 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: [Malignant neoplasm of left breast in female, estrogen receptor positive, 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 (HCC)] Onset: 03-04-2020 Episodic Skin and subcutaneous tissue infections (5 sources) Cellulitis of left lower limb; 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: [Cellulitis of left lower limb] Onset: 04-14-2022 Episodic Superficial injury; contusion (2 sources) Abrasion and/or friction burn of lower limb, infected; 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: [Abrasion, left lower leg, initial encounter] Onset: 04-19-2024 04-19-2024 Episodic Results Test Name Value Interpretation Reference Range Facility Absolute lymphocyte countOrd ered By: Ruiz Reaves on 10-11-2024 Lymphocytes Auto (Unsp spec) [#/Vol] 2.46 10*3/uL 0.83-4.51 [facility] Absolute neutrophil countOrd ered By: Ruiz Reaves on 10-11-2024 Neutrophils (Bld) [#/Vol] 5.1 10*3/uL 2.0-7.7 [facility] Activated partial thrombopla stin time (aPTT) in platelet poor plasma by coagulation aOrdered By: Ruiz Reaves on 10-11-2024 aPTT Coag (PPP) [Time] 33.0 s 24.1-36.2 [facility] Anion gap in Serum or Plasma Ordered By: Ruiz Reaves on 10-11-2024 Anion gap [Moles/Vol] 14 mmol/L 5-[address] [facility] Automated lymphocyte count a s percentage of total leukocytesOrdered By: Ruiz Reaves on 10-11-2024 Lymphocytes/100 WBC Auto (Unsp spec) 30.4 % 19-41 [facility] BUN/creatinine ratioOrdered By: Ruiz Reaves on 10-11-2024 Urea nitrogen/Creatinine [Mass ratio] 29.1 mg/mg High 10-20 [facility] Basophil percentageOrdered B y: Ruiz Reaves on 10-11-2024 Basophils/100 WBC (Bld) 0.5 % 0-1 [facility] Carbon dioxide, total [Moles /volume] in Central venous bloodOrdered By: Ruiz Reaves on 10-11-2024 CO2 [Moles/Vol] 26.7 mmol/L 21.0-32.0 [facility] Chloride assayOrdered By: Andrew Reaves on 10-11-2024 Chloride [Moles/Vol] 103 mmol/L 98-108 [facility] Eosinophil percentageOrdered By: Ruiz Reaves on 10-11-2024 Eosinophils/100 WBC (Bld) 0.6 % 0-5 [facility] Erythrocyte distribution wid th ratioOrdered By: Ruiz Reaves on 10-11-2024 Erythrocyte distribution width (RBC) [Ratio] 12.9 % 11.6-14.6 [facility] Erythrocyte distribution wid th standard deviationOrdered By: Ruiz Reaves on 10-11-2024 Erythrocyte distribution width (RBC) [Ratio] 46.0 fl High 35.1-43.9 [facility] Glomerular filtration rate ( GFR) estimation/1.73 sq m using serum, plasma, or whole bOrdered By: Ruiz Reaves on 10-11-2024 GFR/1.73 sq M.predicted among non-blacks MDRD (S/P/Bld) [Vol rate/Area] 63 mL/min/{1.73_m2} >60 [facility] Comment on above: mL/min/1.73m2 CKD-EP I Creatinine Equation (2020) Hematocrit Auto (Bld) [Volum e fraction]Ordered By: Ruiz Reaves on 10-11-2024 Hematocrit (Bld) [Volume fraction] 46.2 % 37-47 [facility] Hemoglobin measurementOrdere d By: Ruiz Reaves on 10-11-2024 Hemoglobin (Bld) [Mass/Vol] 14.9 g/dL 12.0-15.0 [facility] Immature granulocytes/100 WB C Auto (Bld)Ordered By: Ruiz Reaves on 10-11-2024 Immature granulocytes/100 WBC (Bld) 0.400 % 0.0-0.9 [facility] Comment on above: IG% - Immature Granu locytes (promyelocytes, myelocytes and metamyelocytes) > 1% indicates that a LEFT SHIFT is Present. International normalized rat io (INR) calculationOrdered By: Ruiz Reaves on 10-11-2024 INR Coag (Bld) [Relative time] 2.1 {INR} [facility] MCV (mean corpuscular volume ) determinationOrdered By: Ruiz Reaves on 10-11-2024 MCV (RBC) [Entitic vol] 96.3 fL 81-99 [facility] Magnesium measurement (mass/ volume)Ordered By: Ruiz Reaves on 10-11-2024 Magnesium (Unsp spec) [Mass/Vol] 2.4 mg/dL High 1.5-2.2 [facility] Mean corpuscular hemoglobin (MCH) determinationOrdered By: Ruiz Reaves on 10-11-2024 MCH (RBC) [Entitic mass] 31.0 pg 27.0-32.0 [facility] Mean corpuscular hemoglobin concentration (MCHC) determinationOrdered By: Ruiz Reaves on 10-11-2024 MCHC (RBC) [Mass/Vol] 32.3 g/dL 32-[address] [facility] Mean platelet volume determi nationOrdered By: Ruiz Reaves on 10-11-2024 Platelet mean volume (Bld) [Entitic vol] 10.3 fL 6.2-12.0 [facility] Monocyte percentageOrdered B y: Ruiz Reaves on 10-11-2024 Monocytes/100 WBC (Bld) 5.7 % 0-10 [facility] Natriuretic peptide.B prohor waldo N-Terminal [Mass/volume] in Serum or PlasmaOrdered By: Ruiz Reaves on 10-11-2024 Natriuretic peptide.B prohormone N-Terminal [Mass/Vol] 1553 pg/mL <1800 [facility] Comment on above: Heart Failure Unlike ly: < 300 pg/mLHeart Failure Likely< 50 Years: > 450 pg/mL50-75 Years: > 900 pg/mL>75 Years: > 1800 pg/mL Neutrophil percentageOrdered By: Ruiz Reaves on 10-11-2024 Neutrophils/100 WBC (Bld) 62.4 % 47-70 [facility] Nucleated red blood cell per centageOrdered By: Ruiz Reaves on 10-11-2024 Nucleated RBC/100 WBC (Bld) [Ratio] 0 % 0-5 [facility] Platelet countOrdered By: Andrew Reaves on 10-11-2024 Platelets (Bld) [#/Vol] 290 10*3/uL 150-450 [facility] Potassium measurement (mass/ volume)Ordered By: Ruiz Reaves on 10-11-2024 Potassium (Unsp spec) [Mass/Vol] 3.8 mmol/L 3.3-5.1 [facility] Prothrombin timeOrdered By: Ruiz Reaves on 10-11-2024 PT Coag (PPP) [Time] 23.6 s High 11.7-14.9 [facility] RBC Auto (Bld) [#/Vol]Ordere d By: Ruiz Reaves on 10-11-2024 RBC (Bld) [#/Vol] 4.80 10*6/uL 4.2-5.4 [facility] Serum creatinine measurement (mass/volume)Ordered By: Ruiz Reaves on 10-11-2024 Creatinine [Mass/Vol] 0.92 mg/dL 0.70-1.[address] [facility] Serum glucose measurement (m ass/volume)Ordered By: Ruiz Reaves on 10-11-2024 Glucose [Mass/Vol] 170 mg/dL High 70-99 [facility] Serum or plasma calcium shubham urement (mass/volume)Ordered By: Ruiz Reaves on 10-11-2024 Calcium [Mass/Vol] 9.9 mg/dL 7.6-11.0 [facility] Serum or plasma urea nitroge n measurement (mass/volume)Ordered By: Ruiz Reaves on 10-11-2024 Urea nitrogen [Mass/Vol] 27 mg/dL High 4-19 [facility] Sodium levelOrdered By: Becca Reaves on 10-11-2024 Sodium [Moles/Vol] 143 mmol/L 133-145 [facility] TSH DL <= 0.005 mIU/L QnOrde red By: Ruiz Reaves on 10-11-2024 TSH Qn 2.520 uIU/mL 0.300-4.200 [facility] Troponin T.cardiac [Mass/vol ume] in Serum or Plasma by High sensitivity methodOrdered By: Ruiz Reaves on 10-11-2024 Troponin T.cardiac High sensitivity method [Mass/Vol] 17 ng/L High <14 [facility] White blood cell (WBC) count Ordered By: Ruiz Reaves on 10-11-2024 WBC (Bld) [#/Vol] 8.1 10*3/uL 4.4-11.0 [facility] CNOVon 10-07-2024 CNOV Office Visit (ORTHMN) KESHA CARMICHAEL ([id number]) 1945 F Date Time Provider Department 10/07/24 8:40 AM DOMINGA REESE ORTHMN During your visit today, we recorded the following information about you: Dominga Reese PA-C 10/07/2024 9:15 AM Signed [facility] NOTE Department of Orthopaedics Dayanna Lewis M.D. NAME: Kesha Curiel [facility] NO.: [id number] DATE: October 07, 2024 Kesha returns for follow-up today for her shoulders. I last saw her 2 years ago. She has noticed increasing symptoms over time in both shoulders. The left shoulder is the more symptomatic of the 2. She notes difficulty with reaching activities, lifting activities, over activities, and symptoms at night. She presents for further discussion on management. She is not interested in surgery. She is able to sleep. She takes Tylenol for pain. Her last injections in both shoulders were with Dr. Lewis on 06/24/24. PHYSICAL EXAMINATION: Physical examination today of shoulder is unchanged from previous visit. B/L FF 100 RADIOGRAPHIC STUDIES: Last 2 XR Shoulder - Impression Only XR SHOULDER GENERAL 3V OR MORE AP/TRUE AP/OTHER LEFT Exam End: 06/18/2024 1:27 PM (Final result) Impression: IMPRESSION: Degenerative changes as described. International Exchange Coordinator: RG Transcribe Date/Time: Jun 22 2024 8:45P... XR SHOULDER GENERAL 3V OR MORE AP/TRUE AP/OTHER RIGHT Exam End: 06/18/2024 1:23 PM (Final result) Impression: IMPRESSION: Degenerative changes as described. International Exchange Coordinator: RG Transcribe Date/Time: Jun 22 2024 8:45P... ASSESSMENT: M75.102, M12.812 Rotator cuff tear arthropathy, left M75.101, M12.811 Rotator cuff tear arthropathy, right PLAN: Patient was given a cortisone injection into both shoulder glenohumeral joints and tolerated the procedure well. I did show the patient exercises to do at home as well as exercises to avoid. I did answer all of her questions. I will see her back as needed. If any questions or concerns arise, She should not hesitate to call. Large Joint Arthro/Inj: bilateral glenohumerals 10/07/2024 9:14 AM The procedure site was prepped in the usual sterile fashion. Site: bilateral glenohumerals Medications (Right): 40 mg triamcinolone acetonide 40 mg/mL Medications (Left): 40 mg triamcinolone acetonide 40 mg/mL Anesthetics (Right): 4 mL lidocaine (PF) 10 mg/mL (1 %) Anesthetics (Left): 4 mL lidocaine (PF) 10 mg/mL (1 %) Outcome: Tolerated well, no immediate complications Post-injection instructions were reviewed with the patient and the patient voiced understanding of these instructions. Informed Consent Consent Obtained: Verbal Chase Protocol A moment to CARE was completed. SIGN IN Personnel directly involved with the procedure wore the appropriate PPE. Special Equipment: N/A Patient/Surrogate Stated/Verified: Date of , Intended procedure, Relevant allergies and Patient name TIME OUT Relevant labs, photos, and/or imaging studies have been reviewed. Consent documented and matches the intended procedure. Correct side/site marked and visible. Medications required for procedure verified. No fire risk assessment and interventions applicable. No implant(s) inserted. SIGN OUT No specimen collected. FIDEL Mitchell Allyson L, PA-C 10/07/2024 9:15 AM Signed Dominga Lewis [phone] ([place]-Administrativ e Mitigation Supervisor) You may do the [place] 6 exercises: Rows, Biceps Curls, Triceps, Shrugs, Free weights up overhead AND Close family and consumer sciences teacher pull downs. Avoid these exercises: Flys, seated flies, upright rows, dips, push ups or pull ups. If the elbow is away, you will pay. Allergies As of Date: 10/07/2024 Noted Allergy Reaction ADHESIVE TAPE-SILICONES 01/17/2020 2 - Rash Comments: ALL hydrogels, hydrocolloids, adhesives ANASTROZOLE 01/08/2019 14 - Other: See Comments Comments: migraines AQUACEL-AG (SILVER-HYDROCOLLOID D*06/18/2013 9 - Itching Comments: And redness AZITHROMYCIN 01/02/2012 7 - Swelling Comments: facial EXEMESTANE 09/04/2018 14 - Other: See Comments Comments: Decreased use of right arm LISINOPRIL 12/23/2019 3 - Cough Date Reviewed: 10/07/2024 Reviewed by: Sonali Girard MA - Fully Assessed Reason for Visit: Established Patient [175] Injections [199] Established Patient [175] Injections [199] Visit Diagnoses:Rotator cuff tear arthropathy, left [M75.102, M12.812] Rotator cuff tear arthropathy, right [M75.101, M12.811] Order(s):Large Joint Arthro/Inj: bilateral glenohumerals [HHX996] Order #: [id number] [] lidocaine (PF) 10 mg/mL (1 %) 4 mL injection (XYLOCAINE)Disp: Rfl: [] lidocaine (PF) 10 mg/mL (1 %) 4 mL injection (XYLOCAINE)Disp: Rfl: [] triamcinolone acetonide 40 mg injection (KeNALog 40)Disp: Rfl: [] triamcinolone acetonide 40 mg injectio (more content not included)... Normal [facility] Large Joint Arthro/Inj: bila teral glenohumeralson 10-07-2024 Dominga Reese PA-C 10/07/2024 9:15 AM Large Joint Arthro/Inj: bilateral glenohumerals 10/07/2024 9:14 AM The procedure site was prepped in the usual sterile fashion. Site: bilateral glenohumerals Medications (Right): 40 mg triamcinolone acetonide 40 mg/mL Medications (Left): 40 mg triamcinolone acetonide 40 mg/mL Anesthetics (Right): 4 mL lidocaine (PF) 10 mg/mL (1 %) Anesthetics (Left): 4 mL lidocaine (PF) 10 mg/mL (1 %) Outcome: Tolerated well, no immediate complications Post-injection instructions were reviewed with the patient and the patient voiced understanding of these instructions. Informed Consent Consent Obtained: Verbal Chase Protocol A moment to CARE was completed. SIGN IN Personnel directly involved with the procedure wore the appropriate PPE. Special Equipment: N/A Patient/Surrogate Stated/Verified: Date of , Intended procedure, Relevant allergies and Patient name TIME OUT Relevant labs, photos, and/or imaging studies have been reviewed. Consent documented and matches the intended procedure. Correct side/site marked and visible. Medications required for procedure verified. No fire risk assessment and interventions applicable. No implant(s) inserted. SIGN OUT No specimen collected. [facility] 25(OH)D3 [facility] 25-hydroxyvitamin D3 [Mass/Vol] 29.6 ng/mL Low 31.0-80.0 [facility] Comment on above: Order Comment: Speci men Type: BLOOD SPECIMENOrdering Facility: [facility] Address: [address] [address] [place] [id number] Result Comment: Clas sification of 25 [place] Vitamin D status: Deficiency/Insufficiency: < or = 30 ng/ml. Sufficiency/Optimal Levels: 31-80 ng/mL Toxicity: > 100 ng/mL. Test performed by chemiluminescent immunoassay. Performed By: #### 1 989-3 ####[facility] LABCLIA [id number] [place] [id number] [place] [facility] 25-hydroxyvitamin D3 [Mass/V ol]on 10-04-2024 Interpretation and review of laboratory results Abnormal [facility] The reference range interval was based on an analysis of samples from healthy adults and may not pertain to children from 0-18 years old. [facility] CBC W Auto Differential pane l (Bld)on 10-04-2024 Basophils (Bld) [#/Vol] 0.06 10*3/uL [facility] Basophils/100 WBC (Bld) 1 % [facility] Differential cell count method Nom (Bld) Auto [facility] Eosinophils (Bld) [#/Vol] 0.24 10*3/uL [facility] Eosinophils/100 WBC (Bld) 3.8 % [facility] Erythrocyte distribution width (RBC) [Ratio] 13.2 % 11.5 - 15.0 % [facility] Hematocrit (Bld) [Volume fraction] 44.4 % 36.0 - 46.0 % [facility] Hemoglobin (Bld) [Mass/Vol] 13.9 g/dL 11.5 - 15.5 g/dL [facility] Immature granulocytes (Bld) [#/Vol] [facility] Immature granulocytes/100 WBC (Bld) 0.3 % [facility] Lymphocytes (Bld) [#/Vol] 1.64 10*3/uL [facility] Lymphocytes/100 WBC (Bld) 26.2 % [facility] MCH (RBC) [Entitic mass] 31.2 pg 26. 0 - 34.0 pg [facility] MCHC (RBC) [Mass/Vol] 31.3 g/dL 30.5 - 36.0 g/dL [facility] MCV (RBC) [Entitic vol] 99.6 fL 80.0 - 100.0 fL [facility] Monocytes (Bld) [#/Vol] 0.42 10*3/uL [facility] Monocytes/100 WBC (Bld) 6.7 % C [facility] Neutrophils (Bld) [#/Vol] 3.89 10*3/uL [facility] Neutrophils/100 WBC (Bld) 62 % [facility] Nucleated RBC (Bld) [#/Vol] NINF [facility] Nucleated RBC/100 WBC (Bld) [Ratio] 0 % /100 WBC [facility] Platelet mean volume (Bld) [Entitic vol] 11.1 fL 9.0 - 12.7 fL [facility] Platelets (Bld) [#/Vol] 259 10*3/uL [facility] RBC (Bld) [#/Vol] 4.46 10*6/uL 3.90 - 5.2 0 m/uL [facility] WBC (Bld) [#/Vol] 6.27 10*3/uL [facility] Basophils (Bld) [#/Vol] 0.06 10*3/uL Normal <0.11 [facility] Comment on above: Order Comment: Speci men Type: BLOOD SPECIMENOrdering Facility: [facility] Address: [address] [place] [address] Performed By: #### 5 7021-8 ####[facility] LABCLIA [id number] [place] [address] [place] Basophils/100 WBC (Bld) 1.0 % Normal [facility] Comment on above: Order Comment: Speci men Type: BLOOD SPECIMENOrdering Facility: [facility] Address: [address] [place] [address] Performed By: #### 5 7021-8 ####[facility] LABCLIA [id number] [place] [address] [place] Differential cell count method Nom (Bld) Auto Normal [facility] Comment on above: Order Comment: Speci men Type: BLOOD SPECIMENOrdering Facility: [facility] Address: [address] [place] [address] Performed By: #### 5 7021-8 ####[facility] LABCLIA [id number] [place] [address] [place] Eosinophils (Bld) [#/Vol] 0.24 10*3/uL Normal <0.46 [facility] Comment on above: Order Comment: Speci men Type: BLOOD SPECIMENOrdering Facility: [facility] Address: [address] [place] [address] Performed By: #### 5 7021-8 ####[facility] LABCLIA [id number] [place] [address] [place] Eosinophils/100 WBC (Bld) 3.8 % Normal [facility] Comment on above: Order Comment: Speci men Type: BLOOD SPECIMENOrdering Facility: [facility] Address: [address] [place] [address] Performed By: #### 5 7021-8 ####[facility] LABCLIA [id number] [place] [address] [place] Erythrocyte distribution width (RBC) [Ratio] 13.2 % Normal 11.5-15.0 [facility] Comment on above: Order Comment: Speci men Type: BLOOD SPECIMENOrdering Facility: [facility] Address: [address] [place] [address] Performed By: #### 5 7021-8 ####[facility] LABCLIA [id number] [place] [address] [place] Hematocrit (Bld) [Volume fraction] 44.4 % Normal 36.0-46.0 [facility] Comment on above: Order Comment: Speci men Type: BLOOD SPECIMENOrdering Facility: [facility] Address: [address] [place] [address] Performed By: #### 5 7021-8 ####[facility] LABCLIA [id number] [address], [facility]95 [place] Hemoglobin (Bld) [Mass/Vol] 13.9 g/dL Normal 11.5-15.5 [facility] Comment on above: Order Comment: Speci men Type: BLOOD SPECIMENOrdering Facility: [facility] Address: [address] [place] [address] Performed By: #### 5 7021-8 ####[facility] LABCLIA [id number] [address] [place] [address] [place] Immature granulocytes (Bld) [#/Vol] 10*3/uL Normal <0.10 [facility] Comment on above: Order Comment: Speci men Type: BLOOD SPECIMENOrdering Facility: [facility] Address: [address] [place] [address] Performed By: #### 5 7021-8 ####[facility] LABCLIA [id number] [place] [address] [place] Immature granulocytes/100 WBC (Bld) 0.3 % Normal [facility] Comment on above: Order Comment: Speci men Type: BLOOD SPECIMENOrdering Facility: [facility] Address: [address] [place] [address] Performed By: #### 5 7021-8 ####[facility] LABCLIA [id number] [place] [address] [place] Lymphocytes (Bld) [#/Vol] 1.64 10*3/uL Normal 1.00-4.00 [facility] Comment on above: Order Comment: Speci men Type: BLOOD SPECIMENOrdering Facility: [facility] Address: [address] [place] [address] Performed By: #### 5 7021-8 ####[facility] LABCLIA [id number] [place] [id number] [place] Lymphocytes/100 WBC (Bld) 26.2 % Normal [facility] Comment on above: Order Comment: Speci men Type: BLOOD SPECIMENOrdering Facility: [facility] Address: [address] [place] [address] Performed By: #### 5 7021-8 ####[facility] LABIA [id number] [place] [address] [place] MCH (RBC) [Entitic mass] 31.2 pg Normal 26.0-34.0 [facility] Comment on above: Order Comment: Speci men Type: BLOOD SPECIMENOrdering Facility: [facility] Address: [address] [place] [address] Performed By: #### 5 7021-8 ####[facility] LABIA [id number] [place] [address] [place] MCHC (RBC) [Mass/Vol] 31.3 g/dL Normal 30.5-36.0 [facility] Comment on above: Order Comment: Speci men Type: BLOOD SPECIMENOrdering Facility: [facility] Address: [address] [place] [address] Performed By: #### 5 7021-8 ####[facility] [id number] [place] [address] [place] MCV (RBC) [Entitic vol] 99.6 fL Normal 80.0-100.0 [facility] Comment on above: Order Comment: Speci men Type: BLOOD SPECIMENOrdering Facility: [facility] Address: [address] [place] [address] Performed By: #### 5 7021-8 ####[facility] [id number] [place] [address] [place] Monocytes (Bld) [#/Vol] 0.42 10*3/uL Normal <0.87 [facility] Comment on above: Order Comment: Speci men Type: BLOOD SPECIMENOrdering Facility: [facility] Address: [address] [place] [address] Performed By: #### 5 7021-8 ####[facility] LAB[facility] [id number] [address] [place] Monocytes/100 WBC (Bld) 6.7 % Normal [facility] Comment on above: Order Comment: Speci men Type: BLOOD SPECIMENOrdering Facility: [facility] Address: [address] [place] [address] Performed By: #### 5 7021-8 ####[facility] LABCLIA [id number] [address] [address] [place] Neutrophils (Bld) [#/Vol] 3.89 10*3/uL Normal 1.45-7.50 [facility] Comment on above: Order Comment: Speci men Type: BLOOD SPECIMENOrdering Facility: [facility] Address: [address] [place] [address] Performed By: #### 5 7021-8 ####[facility] LABCLIA [id number] [place] [address] [place] Neutrophils/100 WBC (Bld) 62.0 % Normal [facility] Comment on above: Order Comment: Speci men Type: BLOOD SPECIMENOrdering Facility: [facility] Address: [address] [place] [address] Performed By: #### 5 7021-8 ####[facility] LABCLIA [id number] [place] [address] [place] Nucleated RBC (Bld) [#/Vol] 10*3/uL Normal <0.01 [facility] Comment on above: Order Comment: Speci men Type: BLOOD SPECIMENOrdering Facility: [facility] Address: [address] [place] [address] Performed By: #### 5 7021-8 ####[facility] LABCLIA [id number] [place] [address] [place] Nucleated RBC/100 WBC (Bld) [Ratio] 0.0 /100 WBC Normal [facility] Comment on above: Order Comment: Speci men Type: BLOOD SPECIMENOrdering Facility: [facility] Address: [address] [place] [address] Performed By: #### 5 7021-8 ####[facility] LABCLIA [id number] [facility] [address] [place] [address] [place] Platelet mean volume (Bld) [Entitic vol] 11.1 fL Normal 9.0-12.7 [facility] Comment on above: Order Comment: Speci men Type: BLOOD SPECIMENOrdering Facility: [facility] Address: [address] [place] [address] Performed By: #### 5 7021-8 ####[facility] LABCLIA [id number] [facility] [address] [place] [address] [place] Platelets (Bld) [#/Vol] 259 10*3/uL Normal 150-400 [facility] Comment on above: Order Comment: Speci men Type: BLOOD SPECIMENOrdering Facility: [facility] Address: [address] [place] [address] Performed By: #### 5 7021-8 ####[facility] LABIA [id number] [facility] [address] [place] [address] [place] RBC (Bld) [#/Vol] 4.46 10*6/uL Normal 3.90-5.[address] [facility] Comment on above: Order Comment: Speci men Type: BLOOD SPECIMENOrdering Facility: [facility] Address: [address] [place] [address] Performed By: #### 5 7021-8 ####[facility] LABCLIA [id number] [address] [place] [address] [place] WBC (Bld) [#/Vol] 6.27 10*3/uL Normal 3.70-11.[address] [facility] Comment on above: Order Comment: Speci men Type: BLOOD SPECIMENOrdering Facility: [facility] Address: [address] [place] [address] Performed By: #### 5 7021-8 ####[facility] LABIA [id number] [facility] [address] [place] [address] [facility] CNOVon 10-04-2024 CNOV Office Visit (FAMPWS) KESHA CARMICHAEL ([id number]) 1945 F Date Time Provider Department 10/04/24 10:20 [facility] During your visit today, we recorded the following information about you: Pulse Blood pressure Weight 91/minute 114/40 94.8 kg Belkys Mcintyre APRN.[facility] 10/04/2024 10:41 AM Signed This is a 79 year old female who presents today with: Patient presents with: Edema: Swelling in ankles HISTORY OF PRESENT ILLNESS: Kesha Carmichael is a 79 year old female. Patient presents with: Edema: Swelling in ankles Kesha Carmichael is an 79-year-old female with a history of atrial fibrillation and CKD stage 3, presenting for evaluation of edema and tremors. Edema: - Kesha noticed swelling; unsure of the cause. - Consumes diet Pepsi. - Taking furosemide daily. - Denies cough or wheezing. - Appetite described as too good. - No issues with bowel or bladder function. Atrial Fibrillation: - Chronic atrial fibrillation since teenage years. - Reports palpitations and a hard heartbeat during episodes. - Episodes are more frequent than previously. - Denies any correlation between atrial fibrillation and tremors. - Denies chest pain. - Experiences dyspnea on exertion. - Denies orthopnea; sleeps on side without elevating head. - Using CPAP for at least 7 hours per night; reports good sleep quality with occasional nocturia. - Taking valsartan, metoprolol, and Xarelto. - Echo last year showed EF of 50%. Tremors: - Tremors vary in severity; some days are better than others. - Denies any correlation between atrial fibrillation and tremors. - Has cut out caffeine. CKD Stage 3: - Diagnosed by Dr. Torres. - Denies taking lisinopril due to cough; currently on valsartan. Family History: - Older sister diagnosed with stage 4 pancreatic cancer in May; treatments are not helping. PAST MEDICAL HISTORY: PAST MEDICAL HISTORY Diagnosis Date Abnormal EKG afib, inf [place] age undetermined Atrial fibrillation (HCC) Breast cancer (HCC) 03/2018 left breast Closed fracture of right distal radius 09/10/2021 Congestive heart failure (HCC) 09/24/2018 Epistaxis balloon out osteo History of colonoscopy [address] Stoney Hernandez , normal HTN (hypertension) Hyperglycemia Knee pain, chronic Lt Migraines stopped when she retired Normal cardiac stress test 2004 Dr. Romero Osteoarthritis Seasonal allergies Type 2 diabetes mellitus without complication, without long-term current use of insulin (HCC) 04/11/2016 PAST SURGICAL HISTORY Procedure Laterality Date ARTHRP KNE CONDYLEANDPLATU MEDIALANDLAT COMPARTMENTS 2011 Knee replacement, total, right ARTHRP KNE CONDYLEANDPLATU MEDIALANDLAT COMPARTMENTS Knee replacement, total, left BIOPSY BREAST OPEN INCISIONAL 2003 Bx of breast, incisional left LAPAROSCOPIC APPENDECTOMY 02/28/10 LIG/TRNSXJ FLP TUBE ABDL/VAG APPR UNI/BI 1972 Tubal ligation PAST SURGICAL HISTORY OF Left 03/27/2018 biopsy and lumpectomy left breast breast with lymph node removal x 4 PAST SURGICAL HISTORY OF Right shoulder surgery PICC LINE INSERT/CONSULT 03/09/2020 TONSILLECTOMY AND ADENOIDECTOMY T/A (under age 12 years) TOTAL ABDOMINAL HYSTERECT W/WO RMVL TUBE OVARY 1974 Hysterectomy, DANYELLE ALLERGIES Adhesive Tape-Silicones, Anastrozole, Aquacel-Ag [Silver-Hydrocolloid Dressing], Azithromycin, Exemestane, and Lisinopril MEDICATIONS Current Outpatient Medications Medication Sig valsartan (DIOVAN) 160 mg tablet Take 1 tablet by mouth once daily. metoprolol succinate ER (TOPROL XL) 50 mg 24 hr tablet Take 1 tablet by mouth once daily. rivaroxaban (XARELTO) 20 mg tablet Take 1 tablet by mouth daily with dinner. calcium carbonate/vitamin D3 (CALCIUM WITH VITAMIN D3 ORAL) Take by mouth. amoxicillin (AMOXIL) 500 mg capsule Take four capsules 20 minutes before procedure POTASSIUM ORAL Take 1 capsule by mouth once daily. furosemide (LASIX) 40 mg tablet Take 1 tablet by mouth once daily. vit C,F-Zd-xxzie-lutein- zeaxan (PRESERVISION AREDS-2) 250-90-40-1 mg Take 1 capsule by mouth twice daily with meals. Cholecalciferol, Vitamin D3, 50 mcg (2,000 unit) cap Take 1 capsule by mouth once daily. thiamine HCl (VITAMIN B-1 ORAL) Take 250 mg by mouth once daily. multivitamins(DAILY MULTIVITAMIN TAB) Take one(1) tablet daily. No current facility-administere d medications for this visit. FAMILY HISTORY Problem Relation Age of Onset Breast Cancer Mother Hypertension Mother Hypertension Father Heart Father [place] Diabetes Father Kidney Disease Sister Heart disease Sister Cancer Sister breast COPD Sister Hypertension Sister Macular Degen Sister Stroke Sister mini strokes Arthritis Sister Cancer Sister breast Hypertension Sister Macular Degen Sister Diabetes Sister Tremor Sister H (more content not included)... Normal [facility] Calcium.ionized [Moles/Vol]o n 10-04-2024 Calcium.ionized (Bld) [Mass/Vol] 1.26 mmol/L 1.08 - 1.30 mmol/L [facility] Calcium.ionized adjusted to pH 7.4 (Bld) [Moles/Vol] 1.26 mmol/L 1.08 - 1.30 mmol/L [facility] Interpretation and review of laboratory results Normal [facility] Calcium.ionized (Bld) [Mass/Vol] 1.26 mmol/L Normal 1.08-1.30 [facility] Comment on above: Order Comment: Speci men Type: BLOOD SPECIMENOrdering Facility: [facility] Address: [address] [place] [address] Performed By: #### 1 995-0 ####[facility] LABCLIA [id number] [place] [address] [place] Calcium.ionized adjusted to pH 7.4 (Bld) [Moles/Vol] 1.26 mmol/L Normal 1.08-1.30 [facility] Comment on above: Order Comment: Speci men Type: BLOOD SPECIMENOrdering Facility: [facility] Address: [address] [place] [address] Performed By: #### 1 995-0 ####[facility] LABCLIA [id number] [place] [id number] [place] Comprehensive metabolic 2000 panelon 10-04-2024 Albumin [Mass/Vol] 4.2 g/dL 3.9 - 4.9 g/dL [facility] ALP [Catalytic activity/Vol] 71 U/L 34 - 123 U/L [facility] ALT [Catalytic activity/Vol] 20 U/L 7 - 38 U/L [facility] Anion gap [Moles/Vol] 12 mmol/L 8 - 15 mmol/L [facility] AST [Catalytic activity/Vol] 22 U/L 13 - 35 U/L [facility] Bilirubin [Mass/Vol] 0.5 mg/dL 0.2 - 1 .3 mg/dL [facility] Calcium [Mass/Vol] 9.6 mg/dL 8.5 - 10. 2 mg/dL [facility] Chloride [Moles/Vol] 103 mmol/L 98 - 10 7 mmol/L [facility] CO2 [Moles/Vol] 28 mmol/L 22 - 30 mmol/L [facility] Creatinine [Mass/Vol] 0.84 mg/dL 0.58 - 0.96 mg/dL [facility] GFR/1.73 sq M.predicted among non-blacks MDRD (S/P/Bld) [Vol rate/Area] 70 mL/min/{1.73_m2} - PINF [facility] Comment on above: Estimated Glomerular Filtration Rate (eGFR) is calculated using the 2020 CKD-EPI creatinine equation. This equation utilizes serum creatinine, sex, and age as parameters. The creatinine assay has traceable calibration to isotope dilution-mass spectrometry. Refer to KDIGO guidelines for clinical interpretation. In patients with unstable renal function, e.g. those with acute kidney injury, the eGFR may not accurately reflect actual GFR. Glucose [Mass/Vol] 117 mg/dL High 74 - 99 mg/dL [facility] Comment on above: The [place] Di[employer] Association (ADA) provides guidance for cutoff values for fasting glucose and random glucose. The ADA defines fasting as no caloric intake for at least 8 hours. Fasting plasma glucose results between 100 to 125 mg/dL indicate increased risk for diabetes (prediabetes). Fasting plasma glucose results greater than or equal to 126 mg/dL meet the criteria for diagnosis of diabetes. In the absence of unequivocal hyperglycemia, results should be confirmed by repeat testing. In a patient with classic symptoms of hyperglycemia or hyperglycemic crisis, random plasma glucose results greater than or equal to 200 mg/dL meet the criteria for diagnosis of diabetes. Reference: Standards of Medical Care in Diabetes 2016, [place] [employer]. Diabetes Care. 2016.39(Suppl 1). Potassium [Moles/Vol] 3.8 mmol/L 3.7 - 5.1 mmol/L [facility] Protein [Mass/Vol] 6.4 g/dL 6.3 - 8.0 g/dL [facility] Sodium [Moles/Vol] 143 mmol/L 136 - 144 mmol/L [facility] Urea nitrogen [Mass/Vol] 21 mg/dL 7 - 21 mg/d L [facility] Albumin [Mass/Vol] 4.2 g/dL Normal 3.9-4.9 [facility] Comment on above: Order Comment: Ashley davey Type: BLOOD SPECIMENOrdering Facility: [facility] Address: [address] [place] [address] Performed By: #### 2 4323-8, 2730-11, ####[facility] LABCLIA [id number] [place] [address] [place] ALP [Catalytic activity/Vol] 71 U/L Normal 34-123 [facility] Comment on above: Order Comment: Ashley davey Type: BLOOD SPECIMENOrdering Facility: [facility] Address: [address] [place] [address] Performed By: #### 2 4323-8, 2730-11, ####[facility] LABCLIA [id number] [place] [address] [place] ALT [Catalytic activity/Vol] 20 U/L Normal 7-38 [facility] Comment on above: Order Comment: Alli petar Type: BLOOD SPECIMENOrdering Facility: [facility] Address: [address] [place] [address] Performed By: #### 2 4323-8, 2730-11, ####[facility] LABCLIA [id number] [place] [id number] [place] Anion gap [Moles/Vol] 12 mmol/L Normal 8-15 [facility] Comment on above: Order Comment: Speci men Type: BLOOD SPECIMENOrdering Facility: [facility] Address: [address] [place] [address] Performed By: #### 2 4323-8, 8, ####[facility] LABCLIA [id number] [place] [address] [place] AST [Catalytic activity/Vol] 22 U/L Normal 13-35 [facility] Comment on above: Order Comment: Speci men Type: BLOOD SPECIMENOrdering Facility: [facility] Address: [address] [place] [address] Performed By: #### 2 4323-8, 8, ####[facility] LABCLIA [id number] [place] [address] [place] Bilirubin [Mass/Vol] 0.5 mg/dL Normal 0.2-1.3 [facility] Comment on above: Order Comment: Speci men Type: BLOOD SPECIMENOrdering Facility: [facility] Address: [address] [place], [place] [address] Performed By: #### 2 4323-8, 8, ####[facility] LABCLIA [id number] [place] [id number] [place] Calcium [Mass/Vol] 9.6 mg/dL Normal 8.5-10.2 [facility] Comment on above: Order Comment: Speci men Type: BLOOD SPECIMENOrdering Facility: [facility] Address: [address] [place] [address] Performed By: #### 2 4323-8, 8, ####[facility] LABCLIA [id number] [place] [id number] [place] Chloride [Moles/Vol] 103 mmol/L Normal 98-107 [facility] Comment on above: Order Comment: Speci men Type: BLOOD SPECIMENOrdering Facility: [facility] Address: [address] [place] [address] Performed By: #### 2 4323-8, 2730-8, ####[facility] LABCLIA [id number] [place] [id number] [place] CO2 [Moles/Vol] 28 mmol/L Normal 22-30 [facility] Comment on above: Order Comment: Speci men Type: BLOOD SPECIMENOrdering Facility: [facility] Address: [address] [place] [address] Performed By: #### 2 4323-8, 2730-8, ####[facility] LABCLIA [id number] [place] [address] [place] Creatinine [Mass/Vol] 0.84 mg/dL Normal 0.58-0.96 [facility] Comment on above: Order Comment: Speci men Type: BLOOD SPECIMENOrdering Facility: [facility] Address: [address] [place] [address] Performed By: #### 2 4323-8, 8, ####[facility] LABCLIA [id number] [place] [address] [place] Creatinine and Glomerular filtration rate.predicted panel (S/P/Bld) 70 mL/min/1.73m??? Normal >=60 [facility] Comment on above: Order Comment: Speci men Type: BLOOD SPECIMENOrdering Facility: [facility] Address: [address] [place] [address] Result Comment: Rashida mated Glomerular Filtration Rate (eGFR) is calculated using the 2020 CKD-EPI creatinine equation. This equation utilizes serum creatinine, sex, and age as parameters. The creatinine assay has traceable calibration to isotope dilution-mass spectrometry. Refer to KDIGO guidelines for clinical interpretation. In patients with unstable renal function, e.g. those with acute kidney injury, the eGFR may not accurately reflect actual GFR. Performed By: #### 2 4323-8, 2730-11, ####[facility] LABCLIA [id number] [facility] [address] [address] [place] Glucose [Mass/Vol] 117 mg/dL High 74-99 [facility] Comment on above: Order Comment: Speci men Type: BLOOD SPECIMENOrdering Facility: [facility] Address: [address] [place] [id number] Result Comment: The [place] Diabetes [employer] (ADA) provides guidance for cutoff values for fasting glucose and random glucose. The ADA defines fasting as no caloric intake for at least 8 hours. Fasting plasma glucose results between 100 to 125 mg/dL indicate increased risk for diabetes (prediabetes). Fasting plasma glucose results greater than or equal to 126 mg/dL meet the criteria for diagnosis of diabetes. In the absence of unequivocal hyperglycemia, results should be confirmed by repeat testing. In a patient with classic symptoms of hyperglycemia or hyperglycemic crisis, random plasma glucose results greater than or equal to 200 mg/dL meet the criteria for diagnosis of diabetes. Reference: Standards of Medical Care in Diabetes 2016, [place] [employer]. Diabetes Care. 2016.39(Suppl 1). Performed By: #### 2 4323-8, 2730-11, ####[facility] LABCLIA [id number] [facility] [address] [address] [place] Potassium [Moles/Vol] 3.8 mmol/L Normal 3.7-5.1 [facility] Comment on above: Order Comment: Speci men Type: BLOOD SPECIMENOrdering Facility: [facility] Address: [address] [place] [address] Performed By: #### 2 4323-8, 2730-11, ####[facility] LABCLIA [id number] [facility] [id number] [address] [place] Protein [Mass/Vol] 6.4 g/dL Normal 6.3-8.0 [facility] Comment on above: Order Comment: Speci men Type: BLOOD SPECIMENOrdering Facility: [facility] Address: [address] [place] [address] Performed By: #### 2 4323-8, 2730-11, ####[facility] LABCLIA [id number] [address] [address] [place] Sodium [Moles/Vol] 143 mmol/L Normal 136-144 [facility] Comment on above: Order Comment: Speci men Type: BLOOD SPECIMENOrdering Facility: [facility] Address: [address] [place] [address] Performed By: #### 2 4323-8, 2730-11, ####[facility] LABCLIA [id number] [address] [address] [place] Urea nitrogen [Mass/Vol] 21 mg/dL Normal 7-21 [facility] Comment on above: Order Comment: Speci men Type: BLOOD SPECIMENOrdering Facility: [facility] Address: [address] [place] [address] Performed By: #### 2 4323-8, 2730-11, ####[facility] LABCLIA [id number] [address] [address] [place] MAGNESIUMon 10-04-2024 Magnesium [Mass/Vol] 2.1 mg/dL 1.7 - 2 .3 mg/dL [facility] Magnesium SerPl-mCncon 10-04 Magnesium [Mass/Vol] 2.1 mg/dL Normal 1.7-2.3 [facility] Comment on above: Order Comment: Speci men Type: BLOOD SPECIMENOrdering Facility: [facility] Address: [address] [place] [address] Performed By: #### 2 4323-8, 2730-11, ####[facility] LABCLIA [id number] [address] [address] [place] Magnesium [Mass/Vol]on 10-04 Interpretation and review of laboratory results Normal [facility] No Panel Informationon 10-04 Interpretation and review of laboratory results Abnormal [facility] PTH INTACTon 10-04-2024 Parathyrin.intact [Mass/Vol] 124 pg/mL High 15 - 65 pg/mL [facility] PTH-Intact SerPl-mCncon 09-07 Parathyrin.intact [Mass/Vol] 124 pg/mL High 15-65 [facility] Comment on above: Order Comment: Speci men Type: BLOOD SPECIMENOrdering Facility: [facility] Address: [address] [place] [address] Performed By: #### 2 4323-8, 2731-8, 21544-0 ####[facility] LABCLIA [id number] [address] [place] VITAMIN D 25 HYDROXYon 10-04 25-hydroxyvitamin D3 [Mass/Vol] 29.6 ng/mL Low 31.0 - 80.0 ng/mL [facility] Comment on above: Classification of 25 [place] Vitamin D status: Deficiency/Insufficiency: < or = 30 ng/ml. Sufficiency/Optimal Levels: 31-80 ng/mL Toxicity: > 100 ng/mL. Test performed by chemiluminescent immunoassay. CNOVon 06-24-2024 CNOV Office Visit (ORHSMN) JANYKESHA L ([id number]) 1945 F Date Time Provider Department 06/24/24 8:30 AM [facility] During your visit today, we recorded the following information about you: Dayanna Lewis MD 06/24/2024 8:58 AM Signed [facility] NOTE Department of Orthopaedics Dayanna Lewis M.D. NAME: Kesha Curiel [facility] NO.: [id number] DATE: June 24, 2024 Kesha returns for follow-up today for her shoulders. I last saw her 2 years ago. She has noticed increasing symptoms over time in both shoulders. The left shoulder is the more symptomatic of the 2. She notes difficulty with reaching activities, lifting activities, over activities, and symptoms at night. She presents for further discussion on management. PHYSICAL EXAMINATION: Physical examination today of the right shoulder shows evidence of atrophy in the infraspinatus fossa with a well-healed deltopectoral incision. There is no swelling or erythema. Range of motion testing shows passive forward elevation to 150 on the right, compared to 150 on the left. Active forward elevation is to 90-100 on the right, compared to 90-100 on the left. Passive external rotation at the side is to 40 on the right, compared to 40 on the left. Active internal rotation is to the lower thoracic levels on the right, compared to the lower thoracic levels on the left. Strength testing of the rotator cuff shows 3/5 strength with resisted external rotation at the side and 5/5 strength with resisted Ladonna's maneuver on the right. Strength testing of the rotator cuff shows 3/5 strength with resisted external rotation at the side and 5/5 strength with resisted Ladonna's maneuver on the left. There is pain with resisted Ladonna's maneuver. Lag signs are positive with a large external rotation lag sign bilaterally. Belly press testing is negative. Impingement maneuvers are positive. There is pain with stretch of the anterior capsule. There is tenderness to palpation at the glenohumeral joint line. The right and left upper extremity is otherwise grossly neurovascularly intact to testing. RADIOGRAPHIC STUDIES: X-rays of both shoulders taken on June 18, 2024 are available for review and show findings consistent with bilateral rotator cuff tear arthropathy. There is more advanced arthritic change on the right than the left ASSESSMENT: Bilateral rotator cuff tear arthropathy PLAN: I discussed treatment with Kesha in regards to her shoulders. She would like to continue with nonoperative management at this time but has developed increased complaints. We discussed potential cortisone injections today for 1 or both shoulders and she would like to proceed with this. Therefore both the right and left shoulder glenohumeral joint were injected through an anterior approach as detailed below. We discussed follow-up in the future for repeat injection in either shoulder when needed. She agrees with this plan. Large Joint Arthro/Inj: bilateral glenohumerals 06/24/2024 8:55 AM The procedure site was prepped in the usual sterile fashion. Site: bilateral glenohumerals Medications (Right): 40 mg triamcinolone acetonide 40 mg/mL Medications (Left): 40 mg triamcinolone acetonide 40 mg/mL Anesthetics (Right): 4 mL lidocaine (PF) 10 mg/mL (1 %) Anesthetics (Left): 4 mL lidocaine (PF) 10 mg/mL (1 %) Outcome: Tolerated well, no immediate complications Post-injection instructions were reviewed with the patient and the patient voiced understanding of these instructions. Informed Consent Chase Protocol A moment to CARE was completed. SIGN IN Personnel directly involved with the procedure wore the appropriate PPE. Special Equipment: N/A Patient/Surrogate Stated/Verified: Patient name, Date of , Relevant allergies and Intended procedure TIME OUT Relevant labs, photos, and/or imaging studies have been reviewed. Consent documented and matches the intended procedure. Correct side/site marked and visible. Medications required for procedure verified. No fire risk assessment and interventions applicable. No implant(s) inserted. If any questions or concerns arise, She should not hesitate to call. Dayanna Lewis M.D. Referring Provider: SELF [200] Allergies As of Date: 06/24/2024 Noted Allergy Reaction ADHESIVE TAPE-SILICONES 01/17/2020 2 - Rash Comments: ALL hydrogels, hydrocolloids, adhesives ANASTROZOLE 01/08/2019 14 - Other: See Comments Comments: migraines AQUACEL-AG (SILVER-HYDROCOLLOID D*06/18/2013 9 - Itching Comments: And redness AZITHROMYCIN 01/02/2012 7 - Swelling Comments: facial EXEMESTANE 09/04/2018 14 - Other: See Comments Comments: Decreased use of right arm LISINOPRIL 12/23/2019 3 - Cough Date Reviewed: 06/24/2024 Reviewed by: Buffy Hardy RN - Fully Assessed Reason for Visit: Pain [78] Pain (more content not included)... Normal [facility] Large Joint Arthro/Inj: bila teral glenohumeralson 06-24-2024 Dayanna Lewis MD 06/24/2024 8:58 AM Large Joint Arthro/Inj: bilateral glenohumerals 06/24/2024 8:55 AM The procedure site was prepped in the usual sterile fashion. Site: bilateral glenohumerals Medications (Right): 40 mg triamcinolone acetonide 40 mg/mL Medications (Left): 40 mg triamcinolone acetonide 40 mg/mL Anesthetics (Right): 4 mL lidocaine (PF) 10 mg/mL (1 %) Anesthetics (Left): 4 mL lidocaine (PF) 10 mg/mL (1 %) Outcome: Tolerated well, no immediate complications Post-injection instructions were reviewed with the patient and the patient voiced understanding of these instructions. Informed Consent Chase Protocol A moment to CARE was completed. SIGN IN Personnel directly involved with the procedure wore the appropriate PPE. Special Equipment: N/A Patient/Surrogate Stated/Verified: Patient name, Date of , Relevant allergies and Intended procedure TIME OUT Relevant labs, photos, and/or imaging studies have been reviewed. Consent documented and matches the intended procedure. Correct side/site marked and visible. Medications required for procedure verified. No fire risk assessment and interventions applicable. No implant(s) inserted. [facility] XR SHLDR >/=3V AP/LUIS AP/OTH R LTon 06-18-2024 XR SHLDR >/=3V AP/LUIS AP/OTHR LT * * *Final Report* * * DATE OF EXAM: Jun 18 2024 1:27PM [id number] - XR SHLDR >/=3V AP/LUIS AP/OTHR LT / PROCEDURE REASON: multiple diagnoses * * * * Physician Interpretation * * * * EXAMINATION / TECHNIQUE: XR SHLDR >/=3V AP/LUIS AP/OTHR RT, XR SHLDR >/=3V AP/LUIS AP/OTHR LT HISTORY: PT STATES RIGHT ROTATOR CUFF TEAR (accession [id number]), PT STATES LEFT SHOULDER ROTATOR CUFF TEAR (accession [id number]) Rotator cuff tear arthropathy, right Rotator cuff tear arthropathy, right COMPARISON: Right shoulder radiographs dated 05/16/2022. Left shoulder radiographs dated 04/13/2020. RESULT: Right: No acute fracture or dislocation. 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 Bony spurring at the deltoid tuberosity. Left: No acute fracture or dislocation. Narrowing of the acromiohumeral interval consistent with high-grade rotator cuff tendon tearing. Mild to moderate glenohumeral and acromioclavicular osteoarthritis. COMBINED IMPRESSION: Degenerative changes as described. International Exchange Coordinator: [facility] Transcribe Date/Time: Jun 22 2024 8:45P Dictated by : JOHANNA FLORES MD This examination was interpreted and the report reviewed and electronically signed by: JOHANNA FLORES MD on Jun 22 2024 8:46PM EST [id number] CN Normal [facility] XR SHLDR >/=3V AP/LUIS AP/OTH R RTon 06-18-2024 XR SHLDR >/=3V AP/LUIS AP/OTHR RT * * *Final Report* * * DATE OF EXAM: Jun 18 2024 1:23PM [id number] [id number] - XR SHLDR >/=3V AP/LUIS AP/OTHR RT / PROCEDURE REASON: multiple diagnoses * * * * Physician Interpretation * * * * EXAMINATION / TECHNIQUE: XR SHLDR >/=3V AP/LUIS AP/OTHR RT, XR SHLDR >/=3V AP/LUIS AP/OTHR LT HISTORY: PT STATES RIGHT ROTATOR CUFF TEAR (accession [id number]), PT STATES LEFT SHOULDER ROTATOR CUFF TEAR (accession [id number]) Rotator cuff tear arthropathy, right Rotator cuff tear arthropathy, right COMPARISON: Right shoulder radiographs dated 05/16/2022. Left shoulder radiographs dated 04/13/2020. RESULT: Right: No acute fracture or dislocation. 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 Bony spurring at the deltoid tuberosity. Left: No acute fracture or dislocation. Narrowing of the acromiohumeral interval consistent with high-grade rotator cuff tendon tearing. Mild to moderate glenohumeral and acromioclavicular osteoarthritis. COMBINED IMPRESSION: Degenerative changes as described. International Exchange Coordinator: [facility] Transcribe Date/Time: Jun 22 2024 8:45P Dictated by : JOHANNA FLORES MD This examination was interpreted and the report reviewed and electronically signed by: JOHANNA FLORES MD on Jun 22 2024 8:46PM EST [id number] CN Normal [facility] CNTHERAPYon 06-07-2024 CNTHERAPY OT/PT/Speech Visit (PTWS) KESHA CARMICHAEL ([id number]) 1945 F Date Time Provider Department 06/07/24 10:15 AM [facility]OSSOM WHIET PTWS Date Time Provider Department Center 06/07/2024 10:15 AM [id number]-SBLOSSOM WHITE PTSTEVEN Martínez Reason for Visit: PT Progress Note [1596] Primary Visit Diagnosis:Falls frequently [R29.6] Allergies As of Date: 06/07/2024 Noted Allergy Reaction ADHESIVE TAPE-SILICONES 01/17/2020 2 - Rash Comments: ALL hydrogels, hydrocolloids, adhesives ANASTROZOLE 01/08/2019 14 - Other: See Comments Comments: migraines AQUACEL-AG (SILVER-HYDROCOLLOID D*06/18/2013 9 - Itching Comments: And redness AZITHROMYCIN 01/02/2012 7 - Swelling Comments: facial EXEMESTANE 09/04/2018 14 - Other: See Comments Comments: Decreased use of right arm LISINOPRIL 12/23/2019 3 - Cough Date Reviewed: 05/27/2024 Reviewed by: Maritza Ferris MA - Fully Assessed Prescriptions as of 06/08/2024 - clotrimazole-betamet hasone (LOTRISONE) lotion Apply to affected area two times a day for 14 days. - metoprolol succinate ER (TOPROL XL) 50 mg 24 hr tablet Take 1 tablet by mouth once daily. - rivaroxaban (XARELTO) 20 mg tablet Take 1 tablet by mouth daily with dinner. - calcium carbonate/vitamin D3 (CALCIUM WITH VITAMIN D3 ORAL) Take by mouth. - amoxicillin (AMOXIL) 500 mg capsule Take four capsules 20 minutes before procedure - magnesium oxide 400 mg magnesium tab Take 400 mg by mouth once daily. - POTASSIUM ORAL Take 1 capsule by mouth once daily. - valsartan (DIOVAN) 160 mg tablet Take 1 tablet by mouth once daily. - furosemide (LASIX) 40 mg tablet Take 1 tablet by mouth once daily. - vit C,A-Nk-dsyll-lutein- zeaxan (PRESERVISION AREDS-2) 250-90-40-1 mg Take 1 capsule by mouth twice daily with meals. - Cholecalciferol, Vitamin D3, 50 mcg (2,000 unit) cap Take 1 capsule by mouth once daily. - thiamine HCl (VITAMIN B-1 ORAL) Take 250 mg by mouth once daily. - multivitamins(DAILY MULTIVITAMIN TAB) Take one(1) tablet daily. Normal [facility] 25(OH)D3 SerPl-ncon 2024 25-hydroxyvitamin D3 [Mass/Vol] 36.6 ng/mL Normal 31.0-80.0 [facility] Comment on above: Order Comment: Speci men Type: BLOOD SPECIMENOrdering Facility: [facility] Address: [address] [place] [address] Performed By: #### 1 989-3 ####[facility] LABIA [id number] [place] [address] [place] ALBUMIN/CREATININE RATIO, UR INEon 05-27-2024 Albumin DL <= 20 mg/L (U) [Mass/Vol] 14.9 mg/L Normal [facility] Comment on above: Order Comment: Speci men Type: URINE SPECIMENOrdering Facility: [facility] Address: [address] [place] [address] Performed By: #### U ACR ####[facility] LABCLIA [id number] [place] [address] [place] Albumin/Creatinine (U) [Mass ratio] 48 mg/g High <30 [facility] Comment on above: Order Comment: Speci men Type: URINE SPECIMENOrdering Facility: [facility] Address: [address] [place] [address] Result Comment: Adul t Male and Female Nephrotic Criteria: <30 mg/g is considered normal to mildly increased 30-300 mg/g is considered moderately increased >300 mg/g is considered severely increased KDIGO. (2013). KDIGO 2012 Clinical Practice Guideline for the Evaluation and Management of Chronic Kidney Disease. Official Journal of the International Society of Nephrology, 3(1), 1-150. Performed By: #### U ACR ####[facility] LABCLIA [id number] [place] [address] [place] Creatinine (U) [Mass/Vol] 30.8 mg/dL Normal 20.0-300.0 [facility] Comment on above: Order Comment: Speci men Type: URINE SPECIMENOrdering Facility: [facility] Address: [address] [place] [address] Performed By: #### U ACR ####[facility] LABCLIA [id number] [place] [address] [place] [facility] CBC W Auto Differential pane l (Bld)on 05-27-2024 Basophils (Bld) [#/Vol] 0.05 10*3/uL Normal <0.11 [facility] Comment on above: Order Comment: Speci men Type: BLOOD SPECIMENOrdering Facility: [facility] Address: [address] [place] [address] Performed By: #### 5 7021-8 ####[facility] LABCLIA [id number] [place] [address] [place] Basophils/100 WBC (Bld) 1.0 % Normal [facility] Comment on above: Order Comment: Speci men Type: BLOOD SPECIMENOrdering Facility: [facility] Address: [address] [place] [address] Performed By: #### 5 7021-8 ####[facility] LABCLIA [id number] [id number] [address] [place] Differential cell count method Nom (Bld) Auto Normal [facility] Comment on above: Order Comment: Speci men Type: BLOOD SPECIMENOrdering Facility: [facility] Address: [address] [place] [address] Performed By: #### 5 7021-8 ####[facility] LABCLIA [id number] [place] [address] [place] Eosinophils (Bld) [#/Vol] 0.33 10*3/uL Normal <0.46 [facility] Comment on above: Order Comment: Speci men Type: BLOOD SPECIMENOrdering Facility: [facility] Address: [address] [place] [address] Performed By: #### 5 7021-8 ####[facility] LABCLIA [id number] [place] [address] [place] Eosinophils/100 WBC (Bld) 6.3 % Normal [facility] Comment on above: Order Comment: Speci men Type: BLOOD SPECIMENOrdering Facility: [facility] Address: [address] [place] [address] Performed By: #### 5 7021-8 ####[facility] LABCLIA [id number] [place] [address] [place] Erythrocyte distribution width (RBC) [Ratio] 13.1 % Normal 11.5-15.0 [facility] Comment on above: Order Comment: Speci men Type: BLOOD SPECIMENOrdering Facility: [facility] Address: [address] [place] [address] Performed By: #### 5 7021-8 ####[facility] LABCLIA [id number] [place] [address] [place] Hematocrit (Bld) [Volume fraction] 45.2 % Normal 36.0-46.0 [facility] Comment on above: Order Comment: Speci men Type: BLOOD SPECIMENOrdering Facility: [facility] Address: [address] [place], [place] [id number] Performed By: #### 5 7021-8 ####[facility] LABCLIA [id number] [place] [address] [place] Hemoglobin (Bld) [Mass/Vol] 14.4 g/dL Normal 11.5-15.5 [facility] Comment on above: Order Comment: Speci men Type: BLOOD SPECIMENOrdering Facility: [facility] Address: [address] [place] [address] Performed By: #### 5 7021-8 ####[facility] LABCLIA [id number] [place] [address] [place] Immature granulocytes (Bld) [#/Vol] 10*3/uL Normal <0.10 [facility] Comment on above: Order Comment: Speci men Type: BLOOD SPECIMENOrdering Facility: [facility] Address: [address] [place] [address] Performed By: #### 5 7021-8 ####[facility] LABCLIA [id number] [place] [address] [place] Immature granulocytes/100 WBC (Bld) 0.2 % Normal [facility] Comment on above: Order Comment: Speci men Type: BLOOD SPECIMENOrdering Facility: [facility] Address: [address] [place] [address] Performed By: #### 5 7021-8 ####[facility] LABCLIA [id number] [place] [address] [place] Lymphocytes (Bld) [#/Vol] 1.56 10*3/uL Normal 1.00-4.00 [facility] Comment on above: Order Comment: Speci men Type: BLOOD SPECIMENOrdering Facility: [facility] Address: [address] [place] [address] Performed By: #### 5 7021-8 ####[facility] LABCLIA [id number] [address] [place] Lymphocytes/100 WBC (Bld) 29.8 % Normal [facility] Comment on above: Order Comment: Speci men Type: BLOOD SPECIMENOrdering Facility: [facility] Address: [address] [place] [address] Performed By: #### 5 7021-8 ####[facility] LABCLIA [id number] [place] [address] [place] MCH (RBC) [Entitic mass] 30.4 pg Normal 26.0-34.0 [facility] Comment on above: Order Comment: Speci men Type: BLOOD SPECIMENOrdering Facility: [facility] Address: [address] [place] [address] Performed By: #### 5 7021-8 ####[facility] LABIA [id number] [place] [address] [place] MCHC (RBC) [Mass/Vol] 31.9 g/dL Normal 30.5-36.0 [facility] Comment on above: Order Comment: Speci men Type: BLOOD SPECIMENOrdering Facility: [facility] Address: [address] [place] [address] Performed By: #### 5 7021-8 ####[facility] LABIA [id number] [place] [address] [place] MCV (RBC) [Entitic vol] 95.6 fL Normal 80.0-100.0 [facility] Comment on above: Order Comment: Speci men Type: BLOOD SPECIMENOrdering Facility: [facility] Address: [address] [place] [address] Performed By: #### 5 7021-8 ####[facility] LABIA [id number] [place] [address] [place] Monocytes (Bld) [#/Vol] 0.34 10*3/uL Normal <0.87 [facility] Comment on above: Order Comment: Speci men Type: BLOOD SPECIMENOrdering Facility: [facility] Address: [address] [place] [address] Performed By: #### 5 7021-8 ####[facility] LABCLIA [id number] [place] [address] [place] Monocytes/100 WBC (Bld) 6.5 % Normal [facility] Comment on above: Order Comment: Speci men Type: BLOOD SPECIMENOrdering Facility: [facility] Address: [address] [place] [address] Performed By: #### 5 7021-8 ####[facility] LABCLIA [id number] [place] [address] [place] Neutrophils (Bld) [#/Vol] 2.94 10*3/uL Normal 1.45-7.50 [facility] Comment on above: Order Comment: Speci men Type: BLOOD SPECIMENOrdering Facility: [facility] Address: [address] [place] [address] Performed By: #### 5 7021-8 ####[facility] LABCLIA [id number] [place] [address] [place] Neutrophils/100 WBC (Bld) 56.2 % Normal [facility] Comment on above: Order Comment: Speci men Type: BLOOD SPECIMENOrdering Facility: [facility] Address: [address] [place] [address] Performed By: #### 5 7021-8 ####[facility] LABCLIA [id number] [place] [address] [place] Nucleated RBC (Bld) [#/Vol] 10*3/uL Normal <0.01 [facility] Comment on above: Order Comment: Speci men Type: BLOOD SPECIMENOrdering Facility: [facility] Address: [address] [place] [address] Performed By: #### 5 7021-8 ####[facility] LABCLIA [id number] [place] [address] [place] Nucleated RBC/100 WBC (Bld) [Ratio] 0.0 /100 WBC Normal [facility] Comment on above: Order Comment: Speci men Type: BLOOD SPECIMENOrdering Facility: [facility] Address: [address] [place] [address] Performed By: #### 5 7021-8 ####[facility] LABCLIA [id number] [place] [address] [place] Platelet mean volume (Bld) [Entitic vol] 10.4 fL Normal 9.0-12.7 [facility] Comment on above: Order Comment: Speci men Type: BLOOD SPECIMENOrdering Facility: [facility] Address: [address] [place] [address] Performed By: #### 5 7021-8 ####[facility] LABCLIA [id number] [place] [address] [place] Platelets (Bld) [#/Vol] 274 10*3/uL Normal 150-400 [facility] Comment on above: Order Comment: Speci men Type: BLOOD SPECIMENOrdering Facility: [facility] Address: [address] [place] [address] Performed By: #### 5 7021-8 ####[facility] LABIA [id number] [place] [address] [place] RBC (Bld) [#/Vol] 4.73 10*6/uL Normal 3.90-5.[address] [facility] Comment on above: Order Comment: Speci men Type: BLOOD SPECIMENOrdering Facility: [facility] Address: [address] [place] [address] Performed By: #### 5 7021-8 ####[facility] LABCLIA [id number] [place] [address] [place] WBC (Bld) [#/Vol] 5.23 10*3/uL Normal 3.70-11.[address] [facility] Comment on above: Order Comment: Speci men Type: BLOOD SPECIMENOrdering Facility: [facility] Address: [address] [place] [address] Performed By: #### 5 7021-8 ####[facility] LABCLIA [id number] MONICA RODRIGUEZ [id number] [facility] CNOVon 05-27-2024 CNOV Office Visit (FAMPWS) KESHA CARMICHAEL ([id number]) 1945 F Date Time Provider Department 05/27/24 8:40 [facility] your visit today, we recorded the following information about you: Temperature Pulse Blood pressure Weight 97.4 degrees 61/minute 132/80 93 kg Belkys Mcintyre, FITNESS CONSULTANT.MINERALOGY PROFESSOR 05/27/2024 9:12 AM Signed This is a 79 year old female who presents today with: Patient presents with: Fall: Fell while in [place] one week ago HISTORY OF PRESENT ILLNESS: Kesha Carmichael is a 79 year old female. Patient presents with: Fall: Fell while in [place] one week ago While in [place] visiting sister, there was a mishap with getting into the car and struck right hip but moved to buttock. Now buttock sore. Getting better. Incident occurred on 05/17. PT thought this needed checked out before resuming PT. Able to walk with quad cane. No ecchymosis. Feels like a catch or twist. No problem with bowels or bladder. 0/10 just siting If walking and has to twist a little- 4/10 (quick twitch) Right nipple itches terribly Under right breast red, no swelling Nipple inverted. Areola itching, no orange peel appearance Not due for mammogram Hx of breast cancer Left lower ext. Lesion improved. Scabbed area. Grape sized soft hematoma. No redness or heat. PAST MEDICAL HISTORY: PAST MEDICAL HISTORY Diagnosis Date Abnormal EKG afib, inf [place] age undetermined Atrial fibrillation (HCC) Breast cancer (HCC) 03/2018 left breast Closed fracture of right distal radius 09/10/2021 Congestive heart failure ([facility]) 09/24/2018 Epistaxis balloon out osteo History of colonoscopy [address] Stoney Hernandez , normal HTN (hypertension) Hyperglycemia Knee pain, chronic Lt Migraines stopped when she retired Normal cardiac stress test 2004 Dr. Romero Osteoarthritis Seasonal allergies Type 2 diabetes mellitus without complication, without long-term current use of insulin ([facility]) 04/11/2016 PAST SURGICAL HISTORY Procedure Laterality Date ARTHRP KNE CONDYLEANDPLATU MEDIALANDLAT COMPARTMENTS 2011 Knee replacement, total, right ARTHRP KNE CONDYLEANDPLATU MEDIALANDLAT COMPARTMENTS Knee replacement, total, left BIOPSY BREAST OPEN INCISIONAL 2003 Bx of breast, incisional left LAPAROSCOPIC APPENDECTOMY 02/28/10 LIG/TRNSXJ FLP TUBE ABDL/VAG APPR UNI/BI 1973 Tubal ligation PAST SURGICAL HISTORY OF Left 03/27/2018 biopsy and lumpectomy left breast breast with lymph node removal x 4 PAST SURGICAL HISTORY OF Right shoulder surgery PICC LINE INSERT/CONSULT 03/09/2020 TONSILLECTOMY AND ADENOIDECTOMY T/A (under age 12 years) TOTAL ABDOMINAL HYSTERECT W/WO RMVL TUBE OVARY 1974 Hysterectomy, DANYELLE ALLERGIES Adhesive Tape-Silicones, Anastrozole, Aquacel-Ag [Silver-Hydrocolloid Dressing], Azithromycin, Exemestane, and Lisinopril MEDICATIONS Current Outpatient Medications Medication Sig metoprolol succinate ER (TOPROL XL) 50 mg 24 hr tablet Take 1 tablet by mouth once daily. rivaroxaban (XARELTO) 20 mg tablet Take 1 tablet by mouth daily with dinner. calcium carbonate/vitamin D3 (CALCIUM WITH VITAMIN D3 ORAL) Take by mouth. amoxicillin (AMOXIL) 500 mg capsule Take four capsules 20 minutes before procedure magnesium oxide 400 mg magnesium tab Take 400 mg by mouth once daily. melatonin 1 mg tablet Take 2 mg by mouth daily at bedtime. POTASSIUM ORAL Take 1 capsule by mouth once daily. valsartan (DIOVAN) 160 mg tablet Take 1 tablet by mouth once daily. furosemide (LASIX) 40 mg tablet Take 1 tablet by mouth once daily. vit C,I-Uf-ivzyv-lutein- zeaxan (PRESERVISION AREDS-2) 250-90-40-1 mg Take 1 capsule by mouth twice daily with meals. Cholecalciferol, Vitamin D3, 50 mcg (2,000 unit) cap Take 1 capsule by mouth once daily. thiamine HCl (VITAMIN B-1 ORAL) Take 250 mg by mouth once daily. multivitamins(DAILY MULTIVITAMIN TAB) Take one(1) tablet daily. No current facility-administere d medications for this visit. FAMILY HISTORY Problem Relation Age of Onset Breast Cancer Mother Hypertension Mother Hypertension Father Heart Father [place] Diabetes Father Kidney Disease Sister Heart disease Sister Cancer Sister breast COPD Sister Hypertension Sister Macular Degen Sister Arthritis Sister Cancer Sister breast Hypertension Sister Macular Degen Sister Diabetes Sister Tremor Sister Hypertension Sister Cancer Sister uterine,breast Blood Clots Sister Aneurysm Brother Hypertension Brother Diabetes Brother other (MVA) Brother Cancer Daughter uterine Hypertension Daughter Hypertension Son Hypertension Son Breast Cancer Maternal Grandmother Breast Cancer Other niece x3 Colon Cancer Other nephew Stroke Paternal Grandmother No Known Problems Maternal Grandfather in his 70's other (TB) Paternal Grandfather Socia (more content not included)... Normal [facility] Calcium.ionized [Moles/Vol]o n 05-27-2024 Calcium.ionized (Bld) [Mass/Vol] 1.34 mmol/L High 1.08-1.30 [facility] Comment on above: Order Comment: Speci men Type: BLOOD SPECIMENOrdering Facility: [facility] Address: [address] [place] [address] Performed By: #### 1 995-0 ####[facility] LABCLIA [id number] [place] [address] [place] Calcium.ionized adjusted to pH 7.4 (Bld) [Moles/Vol] 1.29 mmol/L Normal 1.08-1.30 [facility] Comment on above: Order Comment: Speci men Type: BLOOD SPECIMENOrdering Facility: [facility] Address: [address] [place] [address] Performed By: #### 1 995-0 ####[facility] LABCLIA [id number] [address] [address] [place] Comprehensive metabolic 2000 panelon 05-27-2024 Albumin [Mass/Vol] 4.2 g/dL Normal 3.9-4.9 [facility] Comment on above: Order Comment: Speci men Type: BLOOD SPECIMENOrdering Facility: [facility] Address: [address] [place] [address] Performed By: #### 2 4323-8, LIPNF, 26718-7, 6-3 ####[facility] LABCLIA [id number] [place] [address] [place] ALP [Catalytic activity/Vol] 72 U/L Normal 34-123 [facility] Comment on above: Order Comment: Speci men Type: BLOOD SPECIMENOrdering Facility: [facility] Address: [address] [place] [address] Performed By: #### 2 4323-8, LIPNF, 45641-6, 6-3 ####[facility] LABCLIA [id number] [place] [address] [place] ALT [Catalytic activity/Vol] 21 U/L Normal 7-38 [facility] Comment on above: Order Comment: Speci men Type: BLOOD SPECIMENOrdering Facility: [facility] Address: [address] [place] [address] Performed By: #### 2 4323-8, LIPNF, 46484-9, 6-3 ####[facility] LABCLIA [id number] [place] [id number] [place] Anion gap [Moles/Vol] 9 mmol/L Normal 8-15 [facility] Comment on above: Order Comment: Speci men Type: BLOOD SPECIMENOrdering Facility: [facility] Address: [address] [place] [address] Performed By: #### 2 4323-8, LIPNF, 18640-7, 6-3 ####[facility] LABCLIA [id number] [place] [address] [place] AST [Catalytic activity/Vol] 24 U/L Normal 13-35 [facility] Comment on above: Order Comment: Speci men Type: BLOOD SPECIMENOrdering Facility: [facility] Address: [address] [place] [address] Performed By: #### 2 4323-8, LIPNF, 90134-6, 6-3 ####[facility] LABCLIA [id number] [place] [address] [place] Bilirubin [Mass/Vol] 0.4 mg/dL Normal 0.2-1.3 [facility] Comment on above: Order Comment: Speci men Type: BLOOD SPECIMENOrdering Facility: [facility] Address: [address] [place] [address] Performed By: #### 2 4323-8, LIPNF, , 3015-3 ####[facility] LABIA [id number] [place] [address] [place] Calcium [Mass/Vol] 10.5 mg/dL High 8.5-10.2 [facility] Comment on above: Order Comment: Speci men Type: BLOOD SPECIMENOrdering Facility: [facility] Address: [address] [place] [address] Performed By: #### 2 4323-8, LIPNF, 27132-9, 3015-3 ####[facility] LABCLIA [id number] [place] [address] [place] Chloride [Moles/Vol] 103 mmol/L Normal 98-107 [facility] Comment on above: Order Comment: Speci men Type: BLOOD SPECIMENOrdering Facility: [facility] Address: [address] [place] [address] Performed By: #### 2 4323-8, LIPNF, 33376-3, 6-3 ####[facility] LABCLIA [id number] [place] [address] [place] CO2 [Moles/Vol] 31 mmol/L High 22-30 [facility] Comment on above: Order Comment: Speckarl davey Type: BLOOD SPECIMENOrdering Facility: [facility] Address: [address] [place] [address] Performed By: #### 2 4323-8, LIPNF, 10369-2, 3015-3 ####[facility] LABCLIA [id number] [place] [address] [place] Creatinine [Mass/Vol] 0.90 mg/dL Normal 0.58-0.96 [facility] Comment on above: Order Comment: Speci men Type: BLOOD SPECIMENOrdering Facility: [facility] Address: [address] [place] [address] Performed By: #### 2 4323-8, LIPNF, , 3015-3 ####[facility] LABCLIA [id number] [place] [address] [place] Creatinine and Glomerular filtration rate.predicted panel (S/P/Bld) 65 mL/min/1.73m??? Normal >=60 [facility] Comment on above: Order Comment: Ashely davey Type: BLOOD SPECIMENOrdering Facility: [facility] Address: [address] [place] [address] Result Comment: Rashida mated Glomerular Filtration Rate (eGFR) is calculated using the 2020 CKD-EPI creatinine equation. This equation utilizes serum creatinine, sex, and age as parameters. The creatinine assay has traceable calibration to isotope dilution-mass spectrometry. Refer to KDIGO guidelines for clinical interpretation. In patients with unstable renal function, e.g. those with acute kidney injury, the eGFR may not accurately reflect actual GFR. Performed By: #### 2 4323-8, LIPNF, 62832-0, 3015-3 ####[facility] LABCLIA [id number] [place] [address] [place] Glucose [Mass/Vol] 118 mg/dL High 74-99 [facility] Comment on above: Order Comment: Speci men Type: BLOOD SPECIMENOrdering Facility: [facility] Address: [address] [place] [address] Result Comment: The [place] Diabetes Association (ADA) provides guidance for cutoff values for fasting glucose and random glucose. The ADA defines fasting as no caloric intake for at least 8 hours. Fasting plasma glucose results between 100 to 125 mg/dL indicate increased risk for diabetes (prediabetes). Fasting plasma glucose results greater than or equal to 126 mg/dL meet the criteria for diagnosis of diabetes. In the absence of unequivocal hyperglycemia, results should be confirmed by repeat testing. In a patient with classic symptoms of hyperglycemia or hyperglycemic crisis, random plasma glucose results greater than or equal to 200 mg/dL meet the criteria for diagnosis of diabetes. Reference: Standards of Medical Care in Diabetes 2016, [place] [employer] Association. Diabetes Care. 2016.39(Suppl 1). Performed By: #### 2 4323-8, LIPNF, 94711-7, 6-3 ####[facility] LABCLIA [id number] [place] [address] [place] Potassium [Moles/Vol] 4.5 mmol/L Normal 3.7-5.1 [facility] Comment on above: Order Comment: Ashley davey Type: BLOOD SPECIMENOrdering Facility: [facility] Address: [address] [place] [address] Performed By: #### 2 4323-8, LIPNF, 61990-3, 6-3 ####[facility] LABCLIA [id number] [place] [address] [place] Protein [Mass/Vol] 7.0 g/dL Normal 6.3-8.0 [facility] Comment on above: Order Comment: Alli men Type: BLOOD SPECIMENOrdering Facility: [facility] Address: [address] [place] [address] Performed By: #### 2 4323-8, LIPNF, 27426-6, 6-3 ####[facility] LABCLIA [id number] [place] [id number] [place] Sodium [Moles/Vol] 143 mmol/L Normal 136-144 [facility] Comment on above: Order Comment: Speci men Type: BLOOD SPECIMENOrdering Facility: [facility] Address: [address] [place] [address] Performed By: #### 2 4323-8, LIPNF, 12899-5, 3016-3 ####[facility] LABCLIA [id number] [place] [address] [place] Urea nitrogen [Mass/Vol] 18 mg/dL Normal 7-21 [facility] Comment on above: Order Comment: Alli men Type: BLOOD SPECIMENOrdering Facility: [facility] Address: [address] [place] [address] Performed By: #### 2 4323-8, LIPNF, 32953-3, 6-3 ####[facility] LABIA [id number] [place] [address] [place] HbA1c (Bld)on 05-27-2024 Average glucose Estimated from glycated hemoglobin (Bld) [Mass/Vol] 131 mg/dL Normal [facility] Comment on above: Order Comment: Ashley davey Type: BLOOD SPECIMENOrdering Facility: [facility] Address: [address] [place] [address] Result Comment: eAG: (Estimated average glucose) is a calculated value from HgbA1c and is sales representative business courses of the average blood glucose level in the last 2-3 month period. Performed By: #### 5 5454-3 ####[facility] LABCLIA [id number] [place] [address] [place] HbA1c (Bld) [Mass fraction] 6.2 % High 4.3-5.6 [facility] Comment on above: Order Comment: Ashley men Type: BLOOD SPECIMENOrdering Facility: [facility] Address: [address] [place] [address] Result Comment: [place] Diabetes Association guidelines indicate that patients with HgbA1c in the range 5.7-6.4% are at increased risk for development of diabetes, and intervention by lifestyle modification may be beneficial. HgbA1c greater or equal to 6.5% is considered diagnostic of diabetes. Performed By: #### 5 5454-3 ####[facility] LABCLIA [id number] [place] [address] [place] LIPID PANEL, NONFASTINGon Cholesterol [Mass/Vol] 170 mg/dL Normal <200 [facility] Comment on above: Order Comment: Speci men Type: BLOOD SPECIMENOrdering Facility: [facility] Address: [address] [place] [address] Result Comment: <200 mg/dL, Desirable 200-239 mg/dL, Borderline high >239 mg/dL, High Performed By: #### 2 4323-8, LIPNF, 28898-8, 3016-3 ####[facility] LABCLIA [id number] [place] [address] [place] HDL CHOLESTEROL, NF 50 mg/dL Normal >[address] [facility] Comment on above: Order Comment: Alli men Type: BLOOD SPECIMENOrdering Facility: [facility] Address: [address] [place] [address] Result Comment: 40-5 9 mg/dL, Acceptable >59 mg/dL, High: Negative risk factor for coronary heart disease <40 mg/dL, Low: Positive risk factor for coronary heart disease Performed By: #### 2 4323-8, LIPNF, 38696-4, 3016-3 ####[facility] LABIA [id number] [address] [place] LDL CHOLESTEROL, NF 90 mg/dL Normal <[address] [facility] Comment on above: Order Comment: Alli men Type: BLOOD SPECIMENOrdering Facility: [facility] Address: [address] [place] [address] Result Comment: <100 mg/dL, Optimal 100-129 mg/dL, Near optimal/above optimal 130-159 mg/dL, Borderline high 160-189 mg/dL, High >189 mg/dL, Very high Secondary prevention optimal LDL Cholesterol levels are recommended to be < 70 mg/dL Performed By: #### 2 4323-8, LIPNF, , 3015-3 ####[facility] LABCLIA [id number] [place] [address] [place] LDL/HDL RATIO, NF 1.80 mg/dL Normal <2.54 [facility] Comment on above: Order Comment: Speci men Type: BLOOD SPECIMENOrdering Facility: [facility] Address: [address] [place] [address] Result Comment: Refe rence: 1. National Cholesterol Education Program ATP III Guideline At-A-Glance Quick Desk Reference: National Heart, Lung, and Blood [place]. National Institutes of Health. 2001: NIH Publication No. 01-3305. 2. An International Atherosclerosis Society position paper: global recommendations for the management of dyslipidemia: executive summary, Atherosclerosis. 2014: 232(2):410-413. Performed By: #### 2 4323-8, LIPNF, , 3015-06 ####[facility] LABCLIA [id number] [address] [place] NON HDL CHOL, NF 120 mg/dL Normal <130 [facility] Comment on above: Order Comment: Alli men Type: BLOOD SPECIMENOrdering Facility: [facility] Address: [address] [place] [address] Result Comment: <130 mg/dL, Optimal 130-159 mg/dL, Near optimal/above optimal 160-189 mg/dL, Borderline high 190-219 mg/dL, High >219 mg/dL, Very high Secondary prevention optimal non HDL Cholesterol levels are recommended to be <100 mg/dL Performed By: #### 2 4323-8, LIPNF, 08446-5, 3015-3 ####[facility] LABCLIA [id number] [place] [address] [place] T CHOL/HDL RATIO NF 3.40 mg/dL Normal <5.[address] [facility] Comment on above: Order Comment: Speci men Type: BLOOD SPECIMENOrdering Facility: [facility] Address: [address] [place] [address] Performed By: #### 2 4323-8, LIPNF, , 3015-3 ####[facility] LABCLIA [id number] [address] [address] [place] TRIGLYCERIDES, NF 148 mg/dL Normal <150 [facility] Comment on above: Order Comment: Speci men Type: BLOOD SPECIMENOrdering Facility: [facility] Address: [address] [place] [address] Result Comment: <150 mg/dL, Normal 150-199 mg/dL, Borderline high 200-499 mg/dL, High >499 mg/dL, Very high Performed By: #### 2 4323-8, LIPNF, , 3015-3 ####[facility] LABCLIA [id number] [place] [address] [place] VLDL CHOLESTEROL, NF 30 mg/dL High <30 [facility] Comment on above: Order Comment: Speci men Type: BLOOD SPECIMENOrdering Facility: [facility] Address: [address] [place] [address] Performed By: #### 2 4323-8, LIPNF, , 3015-3 ####[facility] LABCLIA [id number] [place] [address] [place] Magnesium SerPl-mCncon 05-27 Magnesium [Mass/Vol] 2.2 mg/dL Normal 1.7-2.3 [facility] Comment on above: Order Comment: Speci men Type: BLOOD SPECIMENOrdering Facility: [facility] Address: [address] [place] [address] Performed By: #### 2 4323-8, LIPNF, , 3015-3 ####[facility] LABCLIA [id number] [place] [address] [place] PTH-Intact SerPl-mCncon - Parathyrin.intact [Mass/Vol] 69 pg/mL High 15-65 [facility] Comment on above: Order Comment: Speci men Type: BLOOD SPECIMENOrdering Facility: [facility] Address: [address] [place] [address] Performed By: #### 2 132-9, 2731-8 ####[facility] LABIA [id number] [place] [address] [place] TSH SerPl-aCncon 05-27-2024 TSH Qn 1.470 m[IU]/L Normal 0.270-4.200 [facility] Comment on above: Order Comment: Speci men Type: BLOOD SPECIMENOrdering Facility: [facility] Address: [address] [place] [address] Performed By: #### 2 4323-8, LIPNF, 75839-5, 3016-3 ####[facility] [id number] [place] [address] [place] Vit B12 SerPl-mCncon 025 Cobalamin (Vitamin B12) [Mass/Vol] 373 pg/mL Normal 232-1245 [facility] Comment on above: Order Comment: Speci men Type: BLOOD SPECIMENOrdering Facility: [facility] Address: [address] [place] [address] Performed By: #### 2 132-9, 2731-8 ####[facility] [id number] [place] [id number] [place] XR HIP 3V PELV+ AP/LAT RTon 05-27-2024 XR HIP 3V PELV+ AP/LAT RT * * *Final Report* * * DATE OF EXAM: May 27 2024 9:44AM WOX [id number] - XR HIP 3V PELV+ AP/LAT RT / PROCEDURE REASON: Pain of right hip * * * * Physician Interpretation * * * * PROCEDURE: Pelvis and right hip INDICATION: Pain of right hip .fell a few weeks ago pain was on lateral right hip and has moved to posterior side TECHNIQUE: XR HIP 3V PELV+ AP/LAT RT COMPARISON: 02/15/2021 FINDINGS: Mild bilateral hip osteoarthrosis and 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 Degenerative change in the lower lumbar spine. No acute fracture or dislocation. IMPRESSION: Degenerative changes. No acute abnormality. International Exchange Coordinator: PSCB Transcribe Date/Time: May 30 2024 10:49A Dictated by : JG HUGGINS MD This examination was interpreted and the report reviewed and electronically signed by: JG HUGGINS MD on May 30 2024 10:50AM EST [id number] Normal [facility] CNTHERAPYon 05-26-2024 CNTHERAPY OT/PT/Speech Visit (PTWS) TASNEEM CARMICHAELNDShaji Curiel ([id number]) 1945 F Date Time Provider Department 05/26/24 5:15 PM BLOSSOM WHITE PTWS Date Time Provider Department Center 05/26/2024 5:15 PM [id number] WHITE PTWS Chun Martínez Reason for Visit: Physical Therapy [503] Primary Visit Diagnosis:Falls frequently [R29.6] Allergies As of Date: 05/26/2024 Noted Allergy Reaction ADHESIVE TAPE-SILICONES 01/17/2020 2 - Rash Comments: ALL hydrogels, hydrocolloids, adhesives ANASTROZOLE 01/08/2019 14 - Other: See Comments Comments: migraines AQUACEL-AG (SILVER-HYDROCOLLOID D*06/18/2013 9 - Itching Comments: And redness AZITHROMYCIN 01/02/2012 7 - Swelling Comments: facial EXEMESTANE 09/04/2018 14 - Other: See Comments Comments: Decreased use of right arm LISINOPRIL 12/23/2019 3 - Cough Date Reviewed: 04/19/2024 Reviewed by: Belkys Mcintyre APRN.MINERALOGY PROFESSOR - Fully Assessed Prescriptions as of 05/26/2024 - metoprolol succinate ER (TOPROL XL) 50 mg 24 hr tablet Take 1 tablet by mouth once daily. - rivaroxaban (XARELTO) 20 mg tablet Take 1 tablet by mouth daily with dinner. - calcium carbonate/vitamin D3 (CALCIUM WITH VITAMIN D3 ORAL) Take by mouth. - amoxicillin (AMOXIL) 500 mg capsule Take four capsules 20 minutes before procedure - magnesium oxide 400 mg magnesium tab Take 400 mg by mouth once daily. - melatonin 1 mg tablet Take 2 mg by mouth daily at bedtime. - POTASSIUM ORAL Take 1 capsule by mouth once daily. - valsartan (DIOVAN) 160 mg tablet Take 1 tablet by mouth once daily. - furosemide (LASIX) 40 mg tablet Take 1 tablet by mouth once daily. - vit C,M-Ly-kuvix-lutein- zeaxan (PRESERVISION AREDS-2) 250-90-40-1 mg Take 1 capsule by mouth twice daily with meals. - Cholecalciferol, Vitamin D3, 50 mcg (2,000 unit) cap Take 1 capsule by mouth once daily. - thiamine HCl (VITAMIN B-1 ORAL) Take 250 mg by mouth once daily. - multivitamins(DAILY MULTIVITAMIN TAB) Take one(1) tablet daily. Normal [facility] CNTHERAPYon 05-24-2024 CNTHERAPY OT/PT/Speech Visit (PTWS) KESHA CARMICHAEL ([id number]) 1945 F Date Time Provider Department 05/24/24 9:30 AM BLOSSOM WIHTE PTSTEVEN Date Time Provider Department [place] 05/24/2024 9:30 AM [id number] WHITE PTSTEVEN Martínez Reason for Visit: Physical Therapy [503] Primary Visit Diagnosis:Falls frequently [R29.6] Allergies As of Date: 05/24/2024 Noted Allergy Reaction ADHESIVE TAPE-SILICONES 01/17/2020 2 - Rash Comments: ALL hydrogels, hydrocolloids, adhesives ANASTROZOLE 01/08/2019 14 - Other: See Comments Comments: migraines AQUACEL-AG (SILVER-HYDROCOLLOID D*06/18/2013 9 - Itching Comments: And redness AZITHROMYCIN 01/02/2012 7 - Swelling Comments: facial EXEMESTANE 09/04/2018 14 - Other: See Comments Comments: Decreased use of right arm LISINOPRIL 12/23/2019 3 - Cough Date Reviewed: 04/19/2024 Reviewed by: Belkys Mcintyre APRN.MINERALOGY PROFESSOR - Fully Assessed Prescriptions as of 05/24/2024 - metoprolol succinate ER (TOPROL XL) 50 mg 24 hr tablet Take 1 tablet by mouth once daily. - rivaroxaban (XARELTO) 20 mg tablet Take 1 tablet by mouth daily with dinner. - calcium carbonate/vitamin D3 (CALCIUM WITH VITAMIN D3 ORAL) Take by mouth. - amoxicillin (AMOXIL) 500 mg capsule Take four capsules 20 minutes before procedure - magnesium oxide 400 mg magnesium tab Take 400 mg by mouth once daily. - melatonin 1 mg tablet Take 2 mg by mouth daily at bedtime. - POTASSIUM ORAL Take 1 capsule by mouth once daily. - valsartan (DIOVAN) 160 mg tablet Take 1 tablet by mouth once daily. - furosemide (LASIX) 40 mg tablet Take 1 tablet by mouth once daily. - vit C,T-Zx-obbfu-lutein- zeaxan (PRESERVISION AREDS-2) 250-90-40-1 mg Take 1 capsule by mouth twice daily with meals. - Cholecalciferol, Vitamin D3, 50 mcg (2,000 unit) cap Take 1 capsule by mouth once daily. - thiamine HCl (VITAMIN B-1 ORAL) Take 250 mg by mouth once daily. - multivitamins(DAILY MULTIVITAMIN TAB) Take one(1) tablet daily. Facility-Administere d Medications as of 05/24/2024 - perflutren lipid microspheres 1.3 mL in NaCl (PF) 0.9% 10 mL injection (DEFINITY) - sodium chloride 0.9 % (flush) 10 mL (BD POSIFLUSH) Normal [facility] CNTHERAPYon 05-10-2024 CNTHERAPY OT/PT/Speech Visit (PTWS) KESHA CARMICHAEL ([id number]) 1945 F Date Time Provider Department 05/10/24 9:30 AM TANYA MEZA PTWS Date Time Provider Department Center 05/10/2024 9:30 AM [id number], MARIAH PTWS Chun Martínez Reason for Visit: Physical Therapy [503] Primary Visit Diagnosis:Falls frequently [R29.6] Allergies As of Date: 05/10/2024 Noted Allergy Reaction ADHESIVE TAPE-SILICONES 01/17/2020 2 - Rash Comments: ALL hydrogels, hydrocolloids, adhesives ANASTROZOLE 01/08/2019 14 - Other: See Comments Comments: migraines AQUACEL-AG (SILVER-HYDROCOLLOID D*06/18/2013 9 - Itching Comments: And redness AZITHROMYCIN 01/02/2012 7 - Swelling Comments: facial EXEMESTANE 09/04/2018 14 - Other: See Comments Comments: Decreased use of right arm LISINOPRIL 12/23/2019 3 - Cough Date Reviewed: 04/19/2024 Reviewed by: Belkys Mcintyre APRN.MINERALOGY PROFESSOR - Fully Assessed Prescriptions as of 05/10/2024 - metoprolol succinate ER (TOPROL XL) 50 mg 24 hr tablet Take 1 tablet by mouth once daily. - rivaroxaban (XARELTO) 20 mg tablet Take 1 tablet by mouth daily with dinner. - calcium carbonate/vitamin D3 (CALCIUM WITH VITAMIN D3 ORAL) Take by mouth. - amoxicillin (AMOXIL) 500 mg capsule Take four capsules 20 minutes before procedure - magnesium oxide 400 mg magnesium tab Take 400 mg by mouth once daily. - melatonin 1 mg tablet Take 2 mg by mouth daily at bedtime. - POTASSIUM ORAL Take 1 capsule by mouth once daily. - valsartan (DIOVAN) 160 mg tablet Take 1 tablet by mouth once daily. - furosemide (LASIX) 40 mg tablet Take 1 tablet by mouth once daily. - vit C,U-Zz-qtgsa-lutein- zeaxan (PRESERVISION AREDS-2) 250-90-40-1 mg Take 1 capsule by mouth twice daily with meals. - Cholecalciferol, Vitamin D3, 50 mcg (2,000 unit) cap Take 1 capsule by mouth once daily. - thiamine HCl (VITAMIN B-1 ORAL) Take 250 mg by mouth once daily. - multivitamins(DAILY MULTIVITAMIN TAB) Take one(1) tablet daily. Facility-Administere d Medications as of 05/10/2024 - perflutren lipid microspheres 1.3 mL in NaCl (PF) 0.9% 10 mL injection (DEFINITY) - sodium chloride 0.9 % (flush) 10 mL (BD POSIFLUSH) Normal [facility] [id number] 05-07-2024 [id number] HNO ID: [id number] Author: BLOSSOM WHITE PT Service: ? Author Type: Physical Therapist Type: [id number] Filed: 05/07/2024 10:46 Note Text: [facility] Physical Therapy Plan of Care Certification Patient Name: Kesha Carmichael : 1945 [facility] #: [id number] Date: 05/07/2024 To: Belkys Mcintyre A* From Therapist: Blossom White PT RE: Patient Certification/ Recertification Your review, approval and electronic signature are required in order to comply with Payor: O MEDICARE / Plan: O MEDADVANTAGE HMO / Product Type: HMO / regulations. The identified Physical Therapy PLAN OF CARE for the patient is as follows: R29.6 Falls frequently (primary encounter diagnosis) PLAN OF CARE UPDATE: Assessment: Kesha Carmichael demonstrates improvements in reduced low back pain. The patient has progressed toward goals. Patient continues to present with impairments in ADL's, gait, independence in exercise, joint mobility, overall function, patient reported outcome measures, posture, range of motion, and symptom management that interfere with standing, walking (pt. can stand for about 10 minutes) . Current prognosis is Good due to: good support system/ coping skills, current objective clinical presentation . The patient will benefit from continued skilled therapy services to meet the updated goals for this plan of care as noted below. Goals for Episode of Care: established 03/29/24 Goals updated on 05/07/2024. Patient will report no falls. -- MET Patient will demonstrate independent and proper use of assisstive device to allow for improved walking quality and safety therefore reducing the risk of falls. -- MET Patient will decrease pain rating by 2 points to meet Minimal Clinical Important Difference for number pain scale rating. -- PROGRESSING Perform walking to her mail box (10-15 minutes) with decreased report of symptoms / pain. -- PROGRESSING, has not attempted it due to the weather and fear of falling on ice. Patient will be able to corect postrual deviations independently in order to allow for normal mechanics and to decrease current pain . -- PROGRESSING Patient Goals: reduce back pain and reduce fall risk -- PROGRESSING NEW GOAL -- FGA 19/30 score with use of standard cane. Time Frame for Goals and Treatment : 06/18/24 Patient Goals: reduce back pain and reduce fall risk Planned Interventions, Frequency, and Duration: 1x/week, 6 weeks Total Number of Visits Planned: 6 Patient to be seen for Neuromuscular re-education (83234), Therapeutic exercise (34842), Manual therapy (09788), Therapeutic activities (93067), Self-shelter management (89236), Gait Training (63970) PLAN FOR NEXT VISIT: Pt. leaves for [place] for a week on Friday and will return for PT visits For further details regarding this patient refer to the Physical Therapy electronically documented visit dated 05/07/2024. Provider Attestation I have reviewed the treatment plan for Kesha Carmichael, [facility]# [id number] for the period of 05/07/24 -- 06/18/24, established on 05/07/2024. Signature certifies the need for therapy services. Normal [facility] CNTHERAPYon 05-07-2024 CNTHERAPY OT/PT/Speech Visit (PTWS) KESHA CARMICHAEL ([id number]) 1945 F Date Time Provider Department 05/07/24 10:00 AM BLOSSOM WHITE PTWS Date Time Provider Department Center 05/07/2024 10:00 AM [id number] WHITE PTWS Chun Mill Reason for Visit: PT Progress Note [1596] Primary Visit Diagnosis:Falls frequently [R29.6] Allergies As of Date: 05/07/2024 Noted Allergy Reaction ADHESIVE TAPE-SILICONES 01/17/2020 2 - Rash Comments: ALL hydrogels, hydrocolloids, adhesives ANASTROZOLE 01/08/2019 14 - Other: See Comments Comments: migraines AQUACEL-AG (SILVER-HYDROCOLLOID D*06/18/2013 9 - Itching Comments: And redness AZITHROMYCIN 01/02/2012 7 - Swelling Comments: facial EXEMESTANE 09/04/2018 14 - Other: See Comments Comments: Decreased use of right arm LISINOPRIL 12/23/2019 3 - Cough Date Reviewed: 04/19/2024 Reviewed by: Belkys Mcintyre APRN.MINERALOGY PROFESSOR - Fully Assessed Prescriptions as of 05/07/2024 - metoprolol succinate ER (TOPROL XL) 50 mg 24 hr tablet Take 1 tablet by mouth once daily. - rivaroxaban (XARELTO) 20 mg tablet Take 1 tablet by mouth daily with dinner. - calcium carbonate/vitamin D3 (CALCIUM WITH VITAMIN D3 ORAL) Take by mouth. - amoxicillin (AMOXIL) 500 mg capsule Take four capsules 20 minutes before procedure - magnesium oxide 400 mg magnesium tab Take 400 mg by mouth once daily. - melatonin 1 mg tablet Take 2 mg by mouth daily at bedtime. - POTASSIUM ORAL Take 1 capsule by mouth once daily. - valsartan (DIOVAN) 160 mg tablet Take 1 tablet by mouth once daily. - furosemide (LASIX) 40 mg tablet Take 1 tablet by mouth once daily. - vit C,N-Nf-jujra-lutein- zeaxan (PRESERVISION AREDS-2) 250-90-40-1 mg Take 1 capsule by mouth twice daily with meals. - Cholecalciferol, Vitamin D3, 50 mcg (2,000 unit) cap Take 1 capsule by mouth once daily. - thiamine HCl (VITAMIN B-1 ORAL) Take 250 mg by mouth once daily. - multivitamins(DAILY MULTIVITAMIN TAB) Take one(1) tablet daily. Facility-Administere d Medications as of 05/07/2024 - perflutren lipid microspheres 1.3 mL in NaCl (PF) 0.9% 10 mL injection (DEFINITY) - sodium chloride 0.9 % (flush) 10 mL (BD POSIFLUSH) Vegetable Harvest Worker: Therapy (PT/OT/Speech/Resp) ID: [id number] 05/07/2024 10:19 AM Author: BLOSSOM WHITE Signed by BLOSSOM WHITE PT on 05/07/2024 at 10:19 AM Document text: Program_ID:[id number] Access Code: [email or web address] URL: [email or web address] Date: 05-07-2024 Prepared By: Blossom White Program Notes Exercises - Supine Transversus Abdominis Bracing - Hands on Stomach - 2-3 x daily - 7 x weekly - 4 sets - 10 reps - Seated Flexion Stretch - 1 x daily - 7 x weekly - 3 sets - 10 reps - Standing Lumbar Spine Flexion Stretch Counter - 1 x daily - 7 x weekly - 3 sets - 10 reps -------- Normal [facility] THERAPY NTon 05-07-2024 THERAPY NT HNO ID: [id number] Author: BLOSSOM WHITE PT Service: ? Author Type: Physical Therapist Type: Therapy (PT/OT/Speech/Resp) Filed: 05/07/2024 10:19 Note Text: Program_ID:[id number] Access Code: [email or web address] URL: [email or web address]/ Date: 05-07-2024 Prepared By: Blossom White Program Notes Exercises - Supine Transversus Abdominis Bracing - Hands on Stomach - 2-3 x daily - 7 x weekly - 4 sets - 10 reps - Seated Flexion Stretch - 1 x daily - 7 x weekly - 3 sets - 10 reps - Standing Lumbar Spine Flexion Stretch Counter - 1 x daily - 7 x weekly - 3 sets - 10 reps Normal [facility] CNTHERAPYon 05-03-2024 CNTHERAPY OT/PT/Speech Visit (PTWS) KESHA CARMICHAEL ([id number]) 1945 F Date Time Provider Department 05/03/24 8:45 AM BLOSSOM WHITE Date Time Provider Department Center 05/03/2024 8:45 AM [id number] WHITE Reason for Visit: Physical Therapy [503] Primary Visit Diagnosis:Falls frequently [R29.6] Allergies As of Date: 05/03/2024 Noted Allergy Reaction ADHESIVE TAPE-SILICONES 01/17/2020 2 - Rash Comments: ALL hydrogels, hydrocolloids, adhesives ANASTROZOLE 01/08/2019 14 - Other: See Comments Comments: migraines AQUACEL-AG (SILVER-HYDROCOLLOID D*06/18/2013 9 - Itching Comments: And redness AZITHROMYCIN 01/02/2012 7 - Swelling Comments: facial EXEMESTANE 09/04/2018 14 - Other: See Comments Comments: Decreased use of right arm LISINOPRIL 12/23/2019 3 - Cough Date Reviewed: 04/19/2024 Reviewed by: Belkys Mcintyre APRN.MINERALOGY PROFESSOR - Fully Assessed Prescriptions as of 05/03/2024 - metoprolol succinate ER (TOPROL XL) 50 mg 24 hr tablet Take 1 tablet by mouth once daily. - rivaroxaban (XARELTO) 20 mg tablet Take 1 tablet by mouth daily with dinner. - calcium carbonate/vitamin D3 (CALCIUM WITH VITAMIN D3 ORAL) Take by mouth. - amoxicillin (AMOXIL) 500 mg capsule Take four capsules 20 minutes before procedure - magnesium oxide 400 mg magnesium tab Take 400 mg by mouth once daily. - melatonin 1 mg tablet Take 2 mg by mouth daily at bedtime. - POTASSIUM ORAL Take 1 capsule by mouth once daily. - valsartan (DIOVAN) 160 mg tablet Take 1 tablet by mouth once daily. - furosemide (LASIX) 40 mg tablet Take 1 tablet by mouth once daily. - vit C,C-Mf-yhndu-lutein- zeaxan (PRESERVISION AREDS-2) 250-90-40-1 mg Take 1 capsule by mouth twice daily with meals. - Cholecalciferol, Vitamin D3, 50 mcg (2,000 unit) cap Take 1 capsule by mouth once daily. - thiamine HCl (VITAMIN B-1 ORAL) Take 250 mg by mouth once daily. - multivitamins(DAILY MULTIVITAMIN TAB) Take one(1) tablet daily. Facility-Administere d Medications as of 05/03/2024 - perflutren lipid microspheres 1.3 mL in NaCl (PF) 0.9% 10 mL injection (DEFINITY) - sodium chloride 0.9 % (flush) 10 mL (BD POSIFLUSH) Normal [facility] CNTHERAPYon 04-30-2024 CNTHERAPY OT/PT/Speech Visit (PTWS) KESHA CARMICHAEL ([id number]) 1945 F Date Time Provider Department 04/30/24 10:15 AM TANYA MEZA PTSTEVEN Date Time Provider Department Center 04/30/2024 10:15 AM [id number], MARIAH PTWS Chun Martínez Reason for Visit: Physical Therapy [503] Primary Visit Diagnosis:Falls frequently [R29.6] Allergies As of Date: 04/30/2024 Noted Allergy Reaction ADHESIVE TAPE-SILICONES 01/17/2020 2 - Rash Comments: ALL hydrogels, hydrocolloids, adhesives ANASTROZOLE 01/08/2019 14 - Other: See Comments Comments: migraines AQUACEL-AG (SILVER-HYDROCOLLOID D*06/18/2013 9 - Itching Comments: And redness AZITHROMYCIN 01/02/2012 7 - Swelling Comments: facial EXEMESTANE 09/04/2018 14 - Other: See Comments Comments: Decreased use of right arm LISINOPRIL 12/23/2019 3 - Cough Date Reviewed: 04/19/2024 Reviewed by: Belkys Mcintyre APRN.MINERALOGY PROFESSOR - Fully Assessed Prescriptions as of 04/30/2024 - metoprolol succinate ER (TOPROL XL) 50 mg 24 hr tablet Take 1 tablet by mouth once daily. - rivaroxaban (XARELTO) 20 mg tablet Take 1 tablet by mouth daily with dinner. - calcium carbonate/vitamin D3 (CALCIUM WITH VITAMIN D3 ORAL) Take by mouth. - amoxicillin (AMOXIL) 500 mg capsule Take four capsules 20 minutes before procedure - magnesium oxide 400 mg magnesium tab Take 400 mg by mouth once daily. - melatonin 1 mg tablet Take 2 mg by mouth daily at bedtime. - POTASSIUM ORAL Take 1 capsule by mouth once daily. - valsartan (DIOVAN) 160 mg tablet Take 1 tablet by mouth once daily. - furosemide (LASIX) 40 mg tablet Take 1 tablet by mouth once daily. - vit C,G-Fp-nrtzx-lutein- zeaxan (PRESERVISION AREDS-2) 250-90-40-1 mg Take 1 capsule by mouth twice daily with meals. - Cholecalciferol, Vitamin D3, 50 mcg (2,000 unit) cap Take 1 capsule by mouth once daily. - thiamine HCl (VITAMIN B-1 ORAL) Take 250 mg by mouth once daily. - multivitamins(DAILY MULTIVITAMIN TAB) Take one(1) tablet daily. Facility-Administere d Medications as of 04/30/2024 - perflutren lipid microspheres 1.3 mL in NaCl (PF) 0.9% 10 mL injection (DEFINITY) - sodium chloride 0.9 % (flush) 10 mL (BD POSIFLUSH) Normal [facility] CNTHERAPYon 04-26-2024 CNTHERAPY OT/PT/Speech Visit (PTWS) KESHA CARMICHAEL ([id number]) 1945 F Date Time Provider Department 04/26/24 1:15 PM BLOSSOM WHITE Date Time Provider Department [place] 04/26/2024 1:15 PM [id number] WHITE Chun Mill Reason for Visit: Physical Therapy [503] Primary Visit Diagnosis:Falls frequently [R29.6] Allergies As of Date: 04/26/2024 Noted Allergy Reaction ADHESIVE TAPE-SILICONES 01/17/2020 2 - Rash Comments: ALL hydrogels, hydrocolloids, adhesives ANASTROZOLE 01/08/2019 14 - Other: See Comments Comments: migraines AQUACEL-AG (SILVER-HYDROCOLLOID D*06/18/2013 9 - Itching Comments: And redness AZITHROMYCIN 01/02/2012 7 - Swelling Comments: facial EXEMESTANE 09/04/2018 14 - Other: See Comments Comments: Decreased use of right arm LISINOPRIL 12/23/2019 3 - Cough Date Reviewed: 04/19/2024 Reviewed by: Belkys Mcintyre APRN.MINERALOGY PROFESSOR - Fully Assessed Prescriptions as of 04/26/2024 - metoprolol succinate ER (TOPROL XL) 50 mg 24 hr tablet Take 1 tablet by mouth once daily. - rivaroxaban (XARELTO) 20 mg tablet Take 1 tablet by mouth daily with dinner. - calcium carbonate/vitamin D3 (CALCIUM WITH VITAMIN D3 ORAL) Take by mouth. - amoxicillin (AMOXIL) 500 mg capsule Take four capsules 20 minutes before procedure - magnesium oxide 400 mg magnesium tab Take 400 mg by mouth once daily. - melatonin 1 mg tablet Take 2 mg by mouth daily at bedtime. - POTASSIUM ORAL Take 1 capsule by mouth once daily. - valsartan (DIOVAN) 160 mg tablet Take 1 tablet by mouth once daily. - furosemide (LASIX) 40 mg tablet Take 1 tablet by mouth once daily. - vit C,W-My-gggba-lutein- zeaxan (PRESERVISION AREDS-2) 250-90-40-1 mg Take 1 capsule by mouth twice daily with meals. - Cholecalciferol, Vitamin D3, 50 mcg (2,000 unit) cap Take 1 capsule by mouth once daily. - thiamine HCl (VITAMIN B-1 ORAL) Take 250 mg by mouth once daily. - multivitamins(DAILY MULTIVITAMIN TAB) Take one(1) tablet daily. Facility-Administere d Medications as of 04/26/2024 - perflutren lipid microspheres 1.3 mL in NaCl (PF) 0.9% 10 mL injection (DEFINITY) - sodium chloride 0.9 % (flush) 10 mL (BD POSIFLUSH) [facility] CAR[facility] ([id number]) 1945 F Date Time Provider Department 04/22/24 ABIOLA WEAVER During your visit today, we recorded the following information about you: JohnStoney 04/22/2024 10:57 AM Signed I called the patient, the patient picked up and successfully rescheduled her appointment. The patient rescheduled her appointment from 07/02/2024 @ 1:00 pm to 07/09/2024 @ 2:[address] Abiola Weaver in the main campus. Telephone encounter was left. Allergies As of Date: 04/22/2024 Noted Allergy Reaction ADHESIVE TAPE-SILICONES 01/17/2020 2 - Rash Comments: ALL hydrogels, hydrocolloids, adhesives ANASTROZOLE 01/08/2019 14 - Other: See Comments Comments: migraines AQUACEL-AG (SILVER-HYDROCOLLOID D*06/18/2013 9 - Itching Comments: And redness AZITHROMYCIN 01/02/2012 7 - Swelling Comments: facial EXEMESTANE 09/04/2018 14 - Other: See Comments Comments: Decreased use of right arm LISINOPRIL 12/23/2019 3 - Cough Date Reviewed: 04/19/2024 Reviewed by: Belkys Mcintyre APRN.MINERALOGY PROFESSOR - Fully Assessed Prescriptions as of 04/22/2024 - cephALEXin (KEFLEX) 500 mg capsule Take 1 capsule by mouth two times a day for 5 days. - metoprolol succinate ER (TOPROL XL) 50 mg 24 hr tablet Take 1 tablet by mouth once daily. - rivaroxaban (XARELTO) 20 mg tablet Take 1 tablet by mouth daily with dinner. - calcium carbonate/vitamin D3 (CALCIUM WITH VITAMIN D3 ORAL) Take by mouth. - amoxicillin (AMOXIL) 500 mg capsule Take four capsules 20 minutes before procedure - magnesium oxide 400 mg magnesium tab Take 400 mg by mouth once daily. - melatonin 1 mg tablet Take 2 mg by mouth daily at bedtime. - POTASSIUM ORAL Take 1 capsule by mouth once daily. - valsartan (DIOVAN) 160 mg tablet Take 1 tablet by mouth once daily. - furosemide (LASIX) 40 mg tablet Take 1 tablet by mouth once daily. - vit C,T-Tv-ibnrb-lutein- zeaxan (PRESERVISION AREDS-2) 250-90-40-1 mg Take 1 capsule by mouth twice daily with meals. - Cholecalciferol, Vitamin D3, 50 mcg (2,000 unit) cap Take 1 capsule by mouth once daily. - thiamine HCl (VITAMIN B-1 ORAL) Take 250 mg by mouth once daily. - multivitamins(DAILY MULTIVITAMIN TAB) Take one(1) tablet daily. Facility-Administere d Medications as of 04/22/2024 - perflutren lipid microspheres 1.3 mL in NaCl (PF) 0.9% 10 mL injection (DEFINITY) - sodium chloride 0.9 % (flush) 10 mL (BD POSIFLUSH) Problem List As Of Date 04/22/2024 Noted Resolved Acute appendicitis without mention of peritonit*03/04/2010 08/06/2012 Rotator cuff tear [M75.100] 04/03/2010 04/11/2016 Other physical therapy [PBR3729] 04/10/2010 07/01/2011 Seborrheic Keratosis [L82.1] 07/26/2010 07/01/2011 Solar lentigo [L81.4] 07/26/2010 07/01/2011 Actinic skin damage [L57.8] 07/26/2010 07/01/2011 Essential hypertension, benign [I10] 07/01/2011 Family history of breast cancer [Z80.3] 07/01/2011 04/15/2022 Osteoarthrosis, unspecified whether generalized*09/09/19 12 09/09/2011 Arthritis of knee [M17.10] 09/11/2011 09/11/2011 Pain in joint, lower leg [M25.569] 09/24/2011 03/21/2016 History of total bilateral knee replacement [Z9*09/24/2011 Arthritis of knee [M17.10] 05/31/2013 05/31/2013 Type 2 diabetes mellitus without complication, *04/11/2016 10/16/2022 Complete tear of right rotator cuff [M75.121] 06/24/2016 04/15/2022 Primary osteoarthritis of right shoulder [M19.0*06/24/2016 04/15/2022 Rotator cuff tear arthropathy, right [M75.101, *06/24/2016 Morbid obesity with BMI of 40.0-44.9, adult (HC*08/01/2017 Persistent atrial fibrillation (HCC) [I48.19] 08/18/2017 Malignant neoplasm of left breast in female, es*02/24/2018 Breast cancer, left breast (HCC) [C50.912] 02/24/2018 10/23/2021 Chronic right shoulder pain [M25.511, G89.29] 08/03/2018 04/15/2022 Chronic diastolic congestive heart failure (HCC*09/24/2018 Pulmonary HTN (HCC) [I27.20] 09/24/2018 Septic arthritis of shoulder, right (HCC) [M00.*10/07/2018 10/23/2021 Breast pain [N64.4] 12/03/2019 04/27/2021 S/P reverse total shoulder arthroplasty, right *03/04/2020 Rotator cuff tear arthropathy, left [M75.102, M*04/13/2020 Essential tremor [G25.0] 06/22/2020 Trochanteric bursitis of right hip [M70.61] 02/21/2021 04/15/2022 Osteoarthritis of spine with radiculopathy, lum*02/21/2021 CKD (chronic kidney disease) stage 3, GFR 30-59*10/29/2021 10/16/2022 Microalbuminuria [R80.9] 10/29/2021 12/24/2021 Acute pain of right wrist [M25.531] 08/22/2021 04/15/2022 Closed fracture of right distal radius [S52.501*09/10/2021 04/15/2022 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 Normal [facility] CNOVon 04-19-2024 CN Office Visit (MARZENAWS) KESHA CARMICHAEL ([id number]) 1945 F Date Time Provider Department 04/19/24 1:40 PM BELKYS MCINTYRESTEVEN During your visit today, we recorded the following information about you: Pulse Respiration Blood pressure Weight 76/minute 16/minute 128/84 94.8 kg Belkys Mcintyre APRN.MINERALOGY PROFESSOR 04/19/2024 2:18 PM Signed This is a 79 year old female who presents today with: Patient presents with: Fall: Fell 2.5 weeks ago when walking the dog. Left stringer landed on brick. Leg Pain: Left leg pain and lump from fall HISTORY OF PRESENT ILLNESS: Kesha Carmichael is a 79 year old female. Patient presents with: Fall: Fell 2.5 weeks ago when walking the dog. Left stringer landed on brick. Leg Pain: Left leg pain and lump from fall Left stringer with large hematoma, tiny laceration above that is scabbed over. Area around it is red with ecchymosis below the laceration Has fallen a couple of times. PAST MEDICAL HISTORY: PAST MEDICAL HISTORY Diagnosis Date Abnormal EKG afib, inf OK age undetermined Atrial fibrillation (HCC) Breast cancer (HCC) 03/2018 left breast Closed fracture of right distal radius 09/10/2021 Congestive heart failure (HCC) 09/24/2018 Epistaxis balloon out osteo History of colonoscopy [address] Stoney Hernandez , normal HTN (hypertension) Hyperglycemia Knee pain, chronic Lt Migraines stopped when she retired Normal cardiac stress test 2004 Dr. Romero Osteoarthritis Seasonal allergies Type 2 diabetes mellitus without complication, without long-term current use of insulin ([facility]) 04/11/2016 PAST SURGICAL HISTORY Procedure Laterality Date ARTHRP KNE CONDYLEANDPLATU MEDIALANDLAT COMPARTMENTS 2011 Knee replacement, total, right ARTHRP KNE CONDYLEANDPLATU MEDIALANDLAT COMPARTMENTS Knee replacement, total, left BIOPSY BREAST OPEN INCISIONAL 2003 Bx of breast, incisional left LAPAROSCOPIC APPENDECTOMY 02/28/10 LIG/TRNSXJ FLP TUBE ABDL/VAG APPR UNI/BI 1973 Tubal ligation PAST SURGICAL HISTORY OF Left 03/27/2018 biopsy and lumpectomy left breast breast with lymph node removal x 4 PAST SURGICAL HISTORY OF Right shoulder surgery PICC LINE INSERT/CONSULT 03/09/2020 TONSILLECTOMY AND ADENOIDECTOMY T/A (under age 11 years) TOTAL ABDOMINAL HYSTERECT W/WO RMVL TUBE OVARY 1974 Hysterectomy, DANYELLE ALLERGIES Adhesive Tape-Silicones, Anastrozole, Aquacel-Ag [Silver-Hydrocolloid Dressing], Azithromycin, Exemestane, and Lisinopril MEDICATIONS Current Outpatient Medications Medication Sig metoprolol succinate ER (TOPROL XL) 50 mg 24 hr tablet Take 1 tablet by mouth once daily. rivaroxaban (XARELTO) 20 mg tablet Take 1 tablet by mouth daily with dinner. calcium carbonate/vitamin D3 (CALCIUM WITH VITAMIN D3 ORAL) Take by mouth. amoxicillin (AMOXIL) 500 mg capsule Take four capsules 20 minutes before procedure magnesium oxide 400 mg magnesium tab Take 400 mg by mouth once daily. melatonin 1 mg tablet Take 2 mg by mouth daily at bedtime. POTASSIUM ORAL Take 1 capsule by mouth once daily. valsartan (DIOVAN) 160 mg tablet Take 1 tablet by mouth once daily. furosemide (LASIX) 40 mg tablet Take 1 tablet by mouth once daily. vit C,C-Bj-zfgcf-lutein- zeaxan (PRESERVISION AREDS-2) 250-90-40-1 mg Take 1 capsule by mouth twice daily with meals. Cholecalciferol, Vitamin D3, 50 mcg (2,000 unit) cap Take 1 capsule by mouth once daily. thiamine HCl (VITAMIN B-1 ORAL) Take 250 mg by mouth once daily. multivitamins(DAILY MULTIVITAMIN TAB) Take one(1) tablet daily. Current Facility-Administere d Medications Medication Dose Route Frequency perflutren lipid microspheres 1.3 mL in NaCl (PF) 0.9% 10 mL injection (DEFINITY) INTRAVENOUS DIRECTED PRN sodium chloride 0.9 % (flush) 10 mL (BD POSIFLUSH) 10 mL INTRAVENOUS DIRECTED PRN FAMILY HISTORY Problem Relation Age of Onset Breast Cancer Mother Hypertension Mother Hypertension Father Heart Father [place] Diabetes Father Kidney Disease Sister Heart disease Sister Cancer Sister breast COPD Sister Hypertension Sister Macular Degen Sister Arthritis Sister Cancer Sister breast Hypertension Sister Macular Degen Sister Diabetes Sister Tremor Sister Hypertension Sister Cancer Sister uterine,breast Blood Clots Sister Aneurysm Brother Hypertension Brother Diabetes Brother other (MVA) Brother Cancer Daughter uterine Hypertension Daughter Hypertension Son Hypertension Son Breast Cancer Maternal Grandmother Breast Cancer Other niece x3 Colon Cancer Other nephew Stroke Paternal Grandmother No Known Problems Maternal Grandfather in his 70's other (TB) Paternal Grandfather Social History Tobacco Use Smoking status: Never Smokeless tobacco: Never Vaping Use Vaping status: Never Used Substance Use Topics Alcohol use: No Drug us (more content not included)... Normal [facility] CNTHERAPYon 04-19-2024 CNTHERAPY OT/PT/Speech Visit (PTWS) KESHA CARMICHAEL ([id number]) 1945 F Date Time Provider Department 04/19/24 8:45 AM BLOSSOM WHITE PTWS Date Time Provider Department Center 04/19/2024 8:45 AM [id number] WHITE PTWS Chun Martínez Reason for Visit: Physical Therapy [503] Primary Visit Diagnosis:Falls frequently [R29.6] Allergies As of Date: 04/19/2024 Noted Allergy Reaction ADHESIVE TAPE-SILICONES 01/17/2020 2 - Rash Comments: ALL hydrogels, hydrocolloids, adhesives ANASTROZOLE 01/08/2019 14 - Other: See Comments Comments: migraines AQUACEL-AG (SILVER-HYDROCOLLOID D*06/18/2013 9 - Itching Comments: And redness AZITHROMYCIN 01/02/2012 7 - Swelling Comments: facial EXEMESTANE 09/04/2018 14 - Other: See Comments Comments: Decreased use of right arm LISINOPRIL 12/23/2019 3 - Cough Date Reviewed: 04/05/2024 Reviewed by: Anuj Navarro MD - Fully Assessed Prescriptions as of 04/19/2024 - metoprolol succinate ER (TOPROL XL) 50 mg 24 hr tablet Take 1 tablet by mouth once daily. - rivaroxaban (XARELTO) 20 mg tablet Take 1 tablet by mouth daily with dinner. - calcium carbonate/vitamin D3 (CALCIUM WITH VITAMIN D3 ORAL) Take by mouth. - amoxicillin (AMOXIL) 500 mg capsule Take four capsules 20 minutes before procedure - magnesium oxide 400 mg magnesium tab Take 400 mg by mouth once daily. - melatonin 1 mg tablet Take 2 mg by mouth daily at bedtime. - POTASSIUM ORAL Take 1 capsule by mouth once daily. - valsartan (DIOVAN) 160 mg tablet Take 1 tablet by mouth once daily. - furosemide (LASIX) 40 mg tablet Take 1 tablet by mouth once daily. - vit C,F-Ve-heeic-lutein- zeaxan (PRESERVISION AREDS-2) 250-90-40-1 mg Take 1 capsule by mouth twice daily with meals. - Cholecalciferol, Vitamin D3, 50 mcg (2,000 unit) cap Take 1 capsule by mouth once daily. - thiamine HCl (VITAMIN B-1 ORAL) Take 250 mg by mouth once daily. - multivitamins(DAILY MULTIVITAMIN TAB) Take one(1) tablet daily. Facility-Administere d Medications as of 04/19/2024 - perflutren lipid microspheres 1.3 mL in NaCl (PF) 0.9% 10 mL injection (DEFINITY) - sodium chloride 0.9 % (flush) 10 mL (BD POSIFLUSH) Normal [facility] Pulmonary Visit Reporton Pulmonary Visit Report [facility] [place] [address] [place] [address] OFFICE VISIT Date of Service: 04/08/24 MR#: [id number] Acct: [id number] Name: KESHA CARMICHAEL Rep #: [id number] : 1945 Provider: KERRY Garnica Age/Sex: 79/F Location: [facility].PM[facility] Status: Signed Assessment and Plan Assessment and Plan (1) RONALDO (obstructive sleep apnea): Status: Chronic (2) Obesity: Status: Chronic Qualifiers: Obesity type: due to excess calories Obesity classification: adult class 2 (BMI 35 - 39.9) Serious obesity comorbidity presence: with serious comorbidity Body mass index: BMI 39.0-39.9 Qualified Code(s): E66.812 - Obesity, class 2; E66.01 - Morbid (severe) obesity due to excess calories; Z68.39 - Body mass index [BMI] 39.0-39.9, adult Plan Stable, she is using and benefiting from Pap therapy. No indication for titration study at this time. Continue to encourage weight loss. Contact the office for any new or worsening symptoms in the meantime. Follow-up in 1 year. Plan Details Follow Up: 1 Year (CSM) HPI 1 Y FU Chief Complaint: Routine follow-up HPI Comments Details: This patient presents to the office today for annual follow-up of her obstructive sleep apnea. She is ambulatory and currently on room air. She has not recently been seen in the ED or urgent care for any respiratory illness. She has not required any antibiotics or prednisone for any breathing problems. She does have shortness of breath on exertion. She has an occasional cough productive of clear- colored sputum but denies any hemoptysis. She denies any wheezing, chest tightness, chest pain or palpitations. She denies any fever, chills or body aches. She wakes up feeling rested with the use of her Pap machine. She is not requiring naps. She is not nodding off to sleep unintentionally. She is not having problems with mask leak or dry mouth. She is not having excessive nocturia. Compliance report for the past 30 days shows 97% compliance and average use of 7 hours 9 minutes per night. Current setting is CPAP 8 cmH2O with residual AHI 0.3 events per hour. Leaks do not appear to be problematic. Intake Vital Signs 03/26/23 08:09 04/08/24 07:52 Height 5 ft 1 in 5 ft 1 in Weight: 210 lb BMI 39.6 BP 135/92 H Blood Pressure Location Rt brachial Position Sitting Respiration 20 H Pulse 96 Pulse Source Monitor Temp 97.4 F L Temperature Source Temporal Artery Oxygen Delivery Method room air Comment fingers to cold to read O2 Intake Visit Reasons: 1 Y FU Chief Complaint: f/u RONALDO Golf Cart Attendant Required: No DME Vendor: cpap- [facility] Accompanied by: Self Is patient in pain?: No Allergies adhesive Allergy (Verified 04/08/24 12:50) Itching, rash, redness allantoin (From Carrasyn Hydrogel Wound Dress) Allergy (Verified 04/08/24 12:50) Rash, skin peeling azithromycin Allergy (Verified 04/08/24 12:50) Angioedema vitamin A (From Aquasol A) Allergy (Verified 04/08/24 12:50) Rash lisinopril Adverse Reaction (Verified 04/08/24 12:50) Other Medications ???Medication ???Instructions ???Recorded ???Confirmed ???Type multivitamin with folic acid 400 1 tab PO DAILY SUPPLEMENT 08/18/17 04/08/24 History mcg tablet cholecalciferol (vitamin D3) 50 2,000 unit PO DAILY supplement 09/04/18 04/08/24 History mcg (2,000 unit) capsule omega-3 fatty acids 1,000 mg 2,000 mg PO DAILY supplement 09/04/18 04/08/24 History capsule valsartan 160 mg tablet 160 mg PO DAILY heart 09/04/18 04/08/24 History furosemide 40 mg tablet 40 mg PO DAILY #60 tabs 10/02/18 04/08/24 Rx amiodarone 200 mg tablet 200 mg PO DAILY 11/03/18 04/08/24 History rivaroxaban 20 mg tablet 20 mg PO DAILY 11/03/18 04/08/24 History metoprolol succinate 25 mg 25 mg PO DAILY 03/25/22 04/08/24 History tablet,extended release 24 hr metoprolol tartrate 50 mg tablet 50 mg PO DAILY 03/25/22 04/08/24 History vit cap PO 03/25/22 04/08/24 History C,E,zinc,Cu-omega-3- lutein-zeaxanthin 250 mg-2.5 mg-0.5 mg capsule gabapentin 100 mg capsule 100 mg PO TID 04/08/24 04/08/24 History Have you fallen in the past year?: Yes PFSH Medical History Non-rheumatic tricuspid valve insufficiency Paroxysmal atrial fibrillation Acute on chronic diastolic (congestive) heart failure Secondary pulmonary arterial hypertension Essential (primary) hypertension Persistent atrial fibrillation RONALDO (obstructive sleep apnea) Obesity, Class III, BMI 40-49.9 (morbid obesity) Malignant neoplasm of left breast, estrogen receptor positive Type 2 diabetes mellitus Osteoarthritis Migraines Knee pain, chronic Inferior OK Hyperglycemia Epistaxis Surgical History ... Normal [facility] [place] 04-05-2024 [facility] Office Visit (SUMANTHWSTR) JANYKESHA Veena ([id number]) 1945 F Date Time Provider Department 04/05/24 2:40 PM ANUJ NAVARRO During your visit today, we recorded the following information about you: Pulse Respiration Blood pressure Weight 103/minute 14/minute 122/85 95.7 kg Height 1.499 m Anuj Navarro MD 04/05/2024 2:49 PM Signed [facility] Cardiology ([facility]) [address] [place] [id number] OUTPATIENT VISIT DATE 04/05/2024 PRIMARY CARE PHYSICIAN: Chip Arreola MD [address] [facility] [address] HISTORY OF PRESENT ILLNESS: Ms. Carmichael is a 79 year old woman with a history of permanent atrial fibrillation, hypertension, diastolic congestive heart failure and mild to moderate mitral/tricuspid valve regurgitation who is here for routine follow-up. Patient was taking care of independently is able to complete her ADLs without assistance. She tells me her heart failure has been well-controlled. She has not had lower extremity edema or symptoms concerning for PND or orthopnea. She denies feelings of palpitations or heart racing. She has not had symptoms concerning for bradycardia. PAST MEDICAL HISTORY Diagnosis Date Abnormal EKG afib, inf OK age undetermined Atrial fibrillation (HCC) Breast cancer ([facility]) 03/2018 left breast Closed fracture of right distal radius 09/10/2021 Congestive heart failure ([facility]) 09/24/2018 Epistaxis balloon out osteo History of colonoscopy [address] Stoney Hernandez , normal HTN (hypertension) Hyperglycemia Knee pain, chronic Lt Migraines stopped when she retired Normal cardiac stress test 2004 Dr. Romero Osteoarthritis Seasonal allergies Type 2 diabetes mellitus without complication, without long-term current use of insulin ([facility]) 04/11/2016 PAST SURGICAL HISTORY Procedure Laterality Date ARTHRP KNE CONDYLEANDPLATU MEDIALANDLAT COMPARTMENTS 2012 Knee replacement, total, right ARTHRP KNE CONDYLEANDPLATU MEDIALANDLAT COMPARTMENTS Knee replacement, total, left BIOPSY BREAST OPEN INCISIONAL 2004 Bx of breast, incisional left LAPAROSCOPIC APPENDECTOMY 02/28/10 LIG/TRNSXJ FLP TUBE ABDL/VAG APPR UNI/BI 1973 Tubal ligation PAST SURGICAL HISTORY OF Left 03/27/2018 biopsy and lumpectomy left breast breast with lymph node removal x 4 PAST SURGICAL HISTORY OF Right shoulder surgery PICC LINE INSERT/CONSULT 03/09/2020 TONSILLECTOMY AND ADENOIDECTOMY T/A (under age 11 years) TOTAL ABDOMINAL HYSTERECT W/WO RMVL TUBE OVARY 1975 Hysterectomy, DANYELLE SOCIAL HISTORY Social History Tobacco Use Smoking status: Never Smokeless tobacco: Never Vaping Use Vaping status: Never Used Substance Use Topics Alcohol use: No Drug use: No FAMILY HISTORY Problem Relation Age of Onset Breast Cancer Mother Hypertension Mother Hypertension Father Heart Father [place] Diabetes Father Kidney Disease Sister Heart disease Sister Cancer Sister breast COPD Sister Hypertension Sister Macular Degen Sister Arthritis Sister Cancer Sister breast Hypertension Sister Macular Degen Sister Diabetes Sister Tremor Sister Hypertension Sister Cancer Sister uterine,breast Blood Clots Sister Aneurysm Brother Hypertension Brother Diabetes Brother other (MVA) Brother Cancer Daughter uterine Hypertension Daughter Hypertension Son Hypertension Son Breast Cancer Maternal Grandmother Breast Cancer Other niece x3 Colon Cancer Other nephew Stroke Paternal Grandmother No Known Problems Maternal Grandfather in his 70's other (TB) Paternal Grandfather ALLERGIES: ALLERGIES Allergen Reactions Adhesive Tape-Silic* Rash ALL hydrogels, hydrocolloids, adhesives Anastrozole Other: See Comments migraines Aquacel-Ag [Silver-* Itching And redness Azithromycin Swelling facial Exemestane Other: See Comments Decreased use of right arm Lisinopril Cough MEDICATIONS: metoprolol succinate ER (TOPROL XL) 50 mg 24 hr tabletTake 1 tablet by mouth once daily.Disp: 90 tabletRfl: 3 rivaroxaban (XARELTO) 20 mg tabletTake 1 tablet by mouth daily with dinner.Disp: 90 tabletRfl: 3 calcium carbonate/vitamin D3 (CALCIUM WITH VITAMIN D3 ORAL)Take by mouth.Disp: Rfl: gabapentin (NEURONTIN) 100 mg capsuleTake 1 capsule by mouth three times a day for 90 days.Disp: 90 capsuleRfl: 2 amoxicillin (AMOXIL) 500 mg capsuleTake four capsules 20 minutes before procedureDisp: 4 capsuleRfl: 0 magnesium oxide 400 mg magnesium tabTake 400 mg by mouth once daily.Disp: Rfl: melatonin 1 mg tabletTake 2 mg by mouth daily at bedtime.Disp: Rfl: POTASSIUM ORALTake 1 capsule by mouth once daily.Disp: Rfl: valsartan (DIOVAN) 160 mg tabletTake 1 tablet (more content not included)... Normal [facility] [id number] 03-29-2024 [id number] HNO ID: [id number] Author: BLOSSOM WHITE, PT Service: ? Author Type: Physical Therapist Type: [id number] Filed: 03/29/2024 11:59 Note Text: [facility] Physical Therapy Plan of Care Certification Patient Name: Kesha Carmichael : 1945 [facility] #: [id number] Date: 03/29/2024 To: Belkys Mcintyre A* From Therapist: Blossom White PT RE: Patient Certification/ Recertification Your review, approval and electronic signature are required in order to comply with Payor: [employer] MEDICARE / Plan: [employer] MED[employer]VANT[employer] HMO / Product Type: HMO / regulations. The identified Physical Therapy PLAN OF CARE for the patient is as follows: R29.6 Falls frequently (primary encounter diagnosis) R29.6 Frequent falls PLAN OF CARE: Assessment: Kesha Carmichael presents with diagnosis of falls frequently that interferes with standing, walking . The patient presents with impairments in ADL's, balance, gait, independence in exercise, joint mobility, overall function, patient reported outcome measures, posture, range of motion, strength, and symptom management. PROMIS? (Patient-Reported Outcomes Measurement Information System) scores were reviewed and identified as a rehabilitation concern. Prognosis for therapy is Good due to: good support system/ coping skills, current objective clinical presentation . The patient will benefit from skilled therapy services to meet the goals established for this plan of care as noted below. Classification Pain Mechanism Classification: Neuropathic Low Back Pain Classification: Symptom Modulation Goals for Episode of Care: established 03/29/24 Patient will report no falls. Patient will demonstrate independent and proper use of assisstive device to allow for improved walking quality and safety therefore reducing the risk of falls. Patient will decrease pain rating by 2 points to meet Minimal Clinical Important Difference for number pain scale rating. Perform walking to her mail box (10-15 minutes) with decreased report of symptoms / pain. Patient will be able to corect postrual deviations independently in order to allow for normal mechanics and to decrease current pain . Patient Goals: reduce back pain and reduce fall risk Time Frame for Goals and Treatment : 03/29/24 Planned Interventions, Frequency, and Duration: Current Frequency: 1x/week Duration: 6 weeks Total Number of Visits Planned: 6 Planned Treatment Interventions: Neuromuscular re-education (49371), Therapeutic exercise (85327), Manual therapy (63116), Therapeutic activities (09333), Self-shelter management (69480), Gait Training (81839) PLAN FOR NEXT VISIT: FGA. Assess symptom response to lumbar flexion directional preference. Considering TA stabilization progressing using biofeedback Patient demonstrates good understanding of plan of care and treatment. The above goals and plan of care were discussed and agreed upon by patient/family. For further details regarding this patient refer to the Physical Therapy electronically documented visit dated 03/29/2024. Provider Attestation I have reviewed the treatment plan for Kesha Carmichael, [facility]# [id number] for the period of 03/29/24 -- 05/10/24, established on 03/29/2024. Signature certifies the need for therapy services. Normal [facility] CNTHERAPYon 03-29-2024 CNTHERAPY OT/PT/Speech Visit (PTWS) KESHA CARMICHAEL ([id number]) 1945 F Date Time Provider Department 03/29/24 11:00 AM BLOSSOM WHITE PTWS Date Time Provider Department [place] 03/29/2024 11:00 AM [id number] WHITE PTSTEVEN Martínez Reason for Visit: PT Eval [747] Primary Visit Diagnosis:Falls frequently [R29.6] Other Visit Diagnosis:Frequent falls [R29.6] Allergies As of Date: 03/29/2024 Noted Allergy Reaction ADHESIVE TAPE-SILICONES 01/17/2020 2 - Rash Comments: ALL hydrogels, hydrocolloids, adhesives ANASTROZOLE 01/08/2019 14 - Other: See Comments Comments: migraines AQUACEL-AG (SILVER-HYDROCOLLOID D*06/18/2013 9 - Itching Comments: And redness AZITHROMYCIN 01/02/2012 7 - Swelling Comments: facial EXEMESTANE 09/04/2018 14 - Other: See Comments Comments: Decreased use of right arm LISINOPRIL 12/23/2019 3 - Cough Date Reviewed: 03/09/2024 Reviewed by: Belkys Mcintyre APRN.MINERALOGY PROFESSOR - Fully Assessed Prescriptions as of 03/29/2024 - metoprolol succinate ER (TOPROL XL) 50 mg 24 hr tablet Take 1 tablet by mouth once daily. - rivaroxaban (XARELTO) 20 mg tablet Take 1 tablet by mouth daily with dinner. - calcium carbonate/vitamin D3 (CALCIUM WITH VITAMIN D3 ORAL) Take by mouth. - gabapentin (NEURONTIN) 100 mg capsule Take 1 capsule by mouth three times a day for 90 days. - amoxicillin (AMOXIL) 500 mg capsule Take four capsules 20 minutes before procedure - magnesium oxide 400 mg magnesium tab Take 400 mg by mouth once daily. - melatonin 1 mg tablet Take 2 mg by mouth daily at bedtime. - POTASSIUM ORAL Take 1 capsule by mouth once daily. - valsartan (DIOVAN) 160 mg tablet Take 1 tablet by mouth once daily. - furosemide (LASIX) 40 mg tablet Take 1 tablet by mouth once daily. - vit C,L-Km-ybmue-lutein- zeaxan (PRESERVISION AREDS-2) 250-90-40-1 mg Take 1 capsule by mouth twice daily with meals. - Cholecalciferol, Vitamin D3, 50 mcg (2,000 unit) cap Take 1 capsule by mouth once daily. - thiamine HCl (VITAMIN B-1 ORAL) Take 250 mg by mouth once daily. - multivitamins(DAILY MULTIVITAMIN TAB) Take one(1) tablet daily. Facility-Administere d Medications as of 03/29/2024 - perflutren lipid microspheres 1.3 mL in NaCl (PF) 0.9% 10 mL injection (DEFINITY) - sodium chloride 0.9 % (flush) 10 mL (BD POSIFLUSH) Vegetable Harvest Worker: Therapy (PT/OT/Speech/Resp) ID: [id number] 03/29/2024 11:35 AM Author: BLOSSOM WHITE Signed by BLOSSOM WHITE PT on 03/29/2024 at 11:35 AM Document text: Program_ID:[id number] Access Code: [email or web address] URL: [email or web address] Date: 03-29-2024 Prepared By: Blossom White Program Notes Exercises - Hooklying Single Knee to Chest Stretch - 2-3 x daily - 7 x weekly - 1 sets - 3 reps - Hooklying Single Knee to Chest Stretch - 2-3 x daily - 7 x weekly - 1 sets - 3 reps - Supine Double Knee to Chest Modified - 2-3 x daily - 7 x weekly - 1 sets - 3 reps - Supine Transversus Abdominis Bracing - Hands on Stomach - 2-3 x daily - 7 x weekly - 4 sets - 10 reps -------- Normal [facility] THERAPY NTon 03-29-2024 THERAPY NT HNO ID: [id number] Author: BLOSSOM WHITE PT Service: ? Author Type: Physical Therapist Type: Therapy (PT/OT/Speech/Resp) Filed: 03/29/2024 11:35 Note Text: Program_ID:[id number] Access Code: [email or web address] URL: [email or web address] Date: 03-29-2024 Prepared By: Blossom White Program Notes Exercises - Hooklying Single Knee to Chest Stretch - 2-3 x daily - 7 x weekly - 1 sets - 3 reps - Hooklying Single Knee to Chest Stretch - 2-3 x daily - 7 x weekly - 1 sets - 3 reps - Supine Double Knee to Chest Modified - 2-3 x daily - 7 x weekly - 1 sets - 3 reps - Supine Transversus Abdominis Bracing - Hands on Stomach - 2-3 x daily - 7 x weekly - 4 sets - 10 reps Normal [facility] CNOVon 03-09-20[facility] FAR[facility],KESHA L ([id number]) 1945 F Date Time Provider Department 03/09/24 10:20 AM BELKYS MCINTYRE During your visit today, we recorded the following information about you: Pulse Respiration Blood pressure Weight 110/minute 16/minute 122/78 94.6 kg Belkys Mcintyre APRN.CNP 03/09/2024 10:55 AM Signed This is a 78 year old female who presents today with: Patient presents with: Tremor Back Pain Fall: 2 fall the past 2 weeks HISTORY OF PRESENT ILLNESS: Kesha Carmichael is a 78 year old female. Patient presents with: Tremor Back Pain Fall: 2 fall the past 2 weeks Falling. Fell and Friday. Legs are getting weak. Back is getting worse, she can't walk to strengthen them. 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 Axial lumbar pain. No radicular Sx. Sits in the recliner and reclines before it gets into legs. First injury lifting 50 lb boxes and stacking them 5 feet high. Second time, carrying powder up a ladder and dumping it into a machine. Tremor noticed when threading a needle or holding hands out. Must use both hands to brush hair. Saw a neurologist in [place] 3-5 years ago. The tremors really bother her. Drinks caffeine in diet pepsi. Occ drinks regular diet pepsi. PAST MEDICAL HISTORY: PAST MEDICAL HISTORY Diagnosis Date Abnormal EKG afib, inf [place] age undetermined Atrial fibrillation (HCC) Breast cancer ([facility]) 03/2018 left breast Closed fracture of right distal radius 09/10/2021 Congestive heart failure ([facility]) 09/24/2018 Epistaxis balloon out osteo History of colonoscopy [address] Stoney Hernandez , normal HTN (hypertension) Hyperglycemia Knee pain, chronic Lt Migraines stopped when she retired Normal cardiac stress test 2004 Dr. Romero Osteoarthritis Seasonal allergies Type 2 diabetes mellitus without complication, without long-term current use of insulin ([facility]) 04/11/2016 PAST SURGICAL HISTORY Procedure Laterality Date ARTHRP KNE CONDYLEANDPLATU MEDIALANDLAT COMPARTMENTS 2011 Knee replacement, total, right ARTHRP KNE CONDYLEANDPLATU MEDIALANDLAT COMPARTMENTS Knee replacement, total, left BIOPSY BREAST OPEN INCISIONAL 2003 Bx of breast, incisional left LAPAROSCOPIC APPENDECTOMY 02/28/10 LIG/TRNSXJ FLP TUBE ABDL/VAG APPR UNI/BI 1973 Tubal ligation PAST SURGICAL HISTORY OF Left 03/27/2018 biopsy and lumpectomy left breast breast with lymph node removal x 4 PAST SURGICAL HISTORY OF Right shoulder surgery PICC LINE INSERT/CONSULT 03/09/2020 TONSILLECTOMY AND ADENOIDECTOMY T/A (under age 12 years) TOTAL ABDOMINAL HYSTERECT W/WO RMVL TUBE OVARY 1974 Hysterectomy, DANYELLE ALLERGIES Adhesive Tape-Silicones, Anastrozole, Aquacel-Ag [Silver-Hydrocolloid Dressing], Azithromycin, Exemestane, and Lisinopril MEDICATIONS Current Outpatient Medications Medication Sig calcium carbonate/vitamin D3 (CALCIUM WITH VITAMIN D3 ORAL) Take by mouth. magnesium oxide 400 mg magnesium tab Take 400 mg by mouth once daily. melatonin 1 mg tablet Take 2 mg by mouth daily at bedtime. POTASSIUM ORAL Take 1 capsule by mouth once daily. valsartan (DIOVAN) 160 mg tablet Take 1 tablet by mouth once daily. furosemide (LASIX) 40 mg tablet Take 1 tablet by mouth once daily. metoprolol succinate ER (TOPROL XL) 50 mg 24 hr tablet Take 1 tablet by mouth once daily. rivaroxaban (XARELTO) 20 mg tablet Take 1 tablet by mouth daily with dinner. vit C,R-Er-gkgua-lutein- zeaxan (PRESERVISION AREDS-2) 250-90-40-1 mg Take 1 capsule by mouth twice daily with meals. Cholecalciferol, Vitamin D3, 50 mcg (2,000 unit) cap Take 1 capsule by mouth once daily. thiamine HCl (VITAMIN B-1 ORAL) Take 250 mg by mouth once daily. multivitamins(DAILY MULTIVITAMIN TAB) Take one(1) tablet daily. amoxicillin (AMOXIL) 500 mg capsule Take four capsules 20 minutes before procedure Current Facility-Administere d Medications Medication Dose Route Frequency perflutren lipid microspheres 1.3 mL in NaCl (PF) 0.9% 10 mL injection (DEFINITY) INTRAVENOUS DIRECTED PRN sodium chloride 0.9 % (flush) 10 mL (BD POSIFLUSH) 10 mL INTRAVENOUS DIRECTED PRN FAMILY HISTORY Problem Relation Age of Onset Breast Cancer Mother Hypertension Mother Hypertension Father Heart Father [place] Diabetes Father Kidney Disease Sister Heart disease Sister Cancer Sister breast COPD Sister Hypertension Sister Macular Degen Sister Arthritis Sister Cancer Sister breast Hypertension Sister Macular Degen Sister Diabetes Sister Tremor Sister Hypertension Sister Cancer Sister uterine,breast Blood Clots Sister Aneurysm Brother Hypertension Brother Diabetes Brother other (MVA) Brother Cancer Daughter uterine Hypertension Daughter Hypertension Son Hypertension Son Breast Cancer Maternal Grandmother Breast Can (more content not included)... Normal [facility] Urinalysis complete panel (U )on 03-09-2024 Bacteria LM.HPF (Urine sed) [#/Area] Negative Normal Negative [facility] Comment on above: Order Comment: Speci men Type: URINE SPECIMENOrdering Facility: [facility] Address: [address] [place] [address] Performed By: #### 2 4356-8 ####[facility] LABCLIA [id number] [place] [address] [place] Bilirubin Ql (U) Negative Normal Negative [facility] Comment on above: Order Comment: Speci men Type: URINE SPECIMENOrdering Facility: [facility] Address: [address] [place] [address] Performed By: #### 2 4356-8 ####[facility] LABCLIA [id number] [place] [address] [place] Clarity (Unsp spec) Clear Normal Clear [facility] Comment on above: Order Comment: Speci men Type: URINE SPECIMENOrdering Facility: [facility] Address: [address] [place] [address] Performed By: #### 2 4356-8 ####[facility] LABCLIA [id number] [place] [address] [place] Color (U) Yellow Normal Yellow [facility] Comment on above: Order Comment: Speci men Type: URINE SPECIMENOrdering Facility: [facility] Address: [address] [place] [address] Performed By: #### 2 4356-8 ####[facility] LABCLIA [id number] [place] AV[id number] Epithelial cells LM.HPF (Urine sed) [#/Area] Moderate Normal [facility] Comment on above: Order Comment: Speci men Type: URINE SPECIMENOrdering Facility: [facility] Address: [address] [place] [address] Performed By: #### 2 4356-8 ####[facility] LABCLIA [id number] [place] [address] [place] Glucose Test strip (U) [Mass/Vol] Negative Normal Negative [facility] Comment on above: Order Comment: Speci men Type: URINE SPECIMENOrdering Facility: [facility] Address: [address] [place] [address] Performed By: #### 2 4356-8 ####[facility] LABCLIA [id number] [place] [address] [place] Hemoglobin Ql (U) Negative Normal Negative [facility] Comment on above: Order Comment: Speci men Type: URINE SPECIMENOrdering Facility: [facility] Address: [address] [place] [address] Performed By: #### 2 4356-8 ####[facility] LABCLIA [id number] [address] [place] Hyaline casts (Urine sed) [#/Area] 0 /[LPF] Normal 0 /LPF [facility] Comment on above: Order Comment: Speci men Type: URINE SPECIMENOrdering Facility: [facility] Address: [address] [place] [address] Performed By: #### 2 4356-8 ####[facility] LABCLIA [id number] [address] [place] Ketones Ql (U) Negative Normal Negative [facility] Comment on above: Order Comment: Speci men Type: URINE SPECIMENOrdering Facility: [facility] Address: [address] [place] [address] Performed By: #### 2 4356-8 ####[facility] LABCLIA [id number] [place] [address] [place] Leukocyte esterase Test strip Ql (U) Trace Abnormal Negative [facility] Comment on above: Order Comment: Speci men Type: URINE SPECIMENOrdering Facility: [facility] Address: [address] [place] [address] Performed By: #### 2 4356-8 ####[facility] LABCLIA [id number] [place] [address] [place] Nitrite Ql (U) Negative Normal Negative [facility] Comment on above: Order Comment: Speci men Type: URINE SPECIMENOrdering Facility: [facility] Address: [address] [place] [address] Performed By: #### 2 4356-8 ####[facility] LABCLIA [id number] [place] [address] [place] pH (U) 7.5 [pH] Normal <8.5 [facility] Comment on above: Order Comment: Speci men Type: URINE SPECIMENOrdering Facility: [facility] Address: [address] [place] [address] Performed By: #### 2 4356-8 ####[facility] LABCLIA [id number] [place] [address] [place] Protein (U) [Mass/Vol] Negative Normal Negative [facility] Comment on above: Order Comment: Speci men Type: URINE SPECIMENOrdering Facility: [facility] Address: [address] [place] [address] Performed By: #### 2 4356-8 ####[facility] LABCLIA [id number] [place] [address] [place] RBC LM.HPF (Urine sed) [#/Area] 0-2 /HPF Normal 0-2 /HPF [facility] Comment on above: Order Comment: Speci men Type: URINE SPECIMENOrdering Facility: [facility] Address: [address] [place] [address] Performed By: #### 2 4356-8 ####[facility] [id number] [place] [address] [place] Specific gravity (U) [Rel density] 1.016 Normal 1.005-1.030 [facility] Comment on above: Order Comment: Speci men Type: URINE SPECIMENOrdering Facility: [facility] Address: [address] [place] [address] Performed By: #### 2 4356-8 ####[facility] [id number] [place] [address] [place] Urobilinogen Ql (U) 0.2 EU/dL Normal 0.2-1.0 EU/dL [facility] Comment on above: Order Comment: Speci men Type: URINE SPECIMENOrdering Facility: [facility] Address: [address] [place] [address] Performed By: #### 2 4356-8 ####[facility] [id number] [place] [address] [place] WBC LM.HPF (Urine sed) [#/Area] 0-5 /HPF Normal 0-5 /HPF [facility] Comment on above: Order Comment: Speci men Type: URINE SPECIMENOrdering Facility: [facility] Address: [address] [place] [address] Performed By: #### 2 4356-8 ####[facility] [id number] [place] [address] [place] XR LUMBAR 3V AP/LAT/L5-S1on 03-09-2024 XR LUMBAR 3V AP/LAT/L5-S1 * * *Final Report* * * DATE OF EXAM: Mar 09 2024 12:07PM WOX [id number] - XR LUMBAR 3V AP/LAT/L5-S1 / PROCEDURE REASON: Low back pain, unspecified back pain laterality, unspecified chronicity, unspeci * * * * Physician Interpretation * * * * EXAM TITLE: XR LUMBAR 3V AP/LAT/L5-S1 EXAM DATE/TIME: 03/09/2024 12:07 PM COMPARISON: None. CLINICAL INDICATION/HISTORY: Low back pain. TECHNIQUE: AP, lateral and cone down lateral views of the lumbar spine are presented. FINDINGS: There are five whc-[id number]-[id number] lumbar vertebrae. No acute fractures demonstrated. Left-sided curvature/levoscolio sis is demonstrated. There is grade 1 L4 on L5 anterolisthesis. Generalized disc space narrowing is noted. There is moderate osteophyte formation. Kissing spine seen on lateral view. IMPRESSION: Lumbar spine degenerative changes as described above. International Exchange Coordinator: [facility] Transcribe Date/Time: Mar 11 2024 4:48P Dictated by : OSCAR ORTEZ MD This examination was interpreted and the report reviewed and electronically signed by: OSCAR ORTEZ MD on Mar 11 2024 4:51PM EST [id number] Normal [facility] XR THORACIC 3V AP/LAT/SWIMME [facility] 03-09-2024 XR THORACIC 3V AP/LAT/SWIMMERS * * *Final Report* * * DATE OF EXAM: Mar 09 2024 12:07PM WOX [id number] - XR THORACIC 3V AP/LAT/SWIMMERS / PROCEDURE REASON: DDD (degenerative disc disease), thoracic * * * * Physician Interpretation * * * * EXAMINATION: XR THORACIC 3V AP/LAT/SWIMMERS CLINICAL HISTORY: Chronic pain thoracic spine Technique: XR THORACIC 3V AP/LAT/SWIMMERS -- NOT APPLICABLE with 3 views on 3 images Comparison: None RESULT: No acute fracture. Kyphosis of the thoracic spine. Multilevel degenerative disc disease with intervertebral disc space narrowing, endplate sclerosis and vertebral body osteophytes. IMPRESSION: No acute fracture. Kyphosis and degenerative disease of the thoracic spine. International Exchange Coordinator: [employer] Transcribe Date/Time: Mar 12 2024 9:14A Dictated by : SADIE PETER MD This examination was interpreted and the report reviewed and electronically signed by: SADIE PETER MD on Mar 12 2024 9:16AM EST [id number] Normal [facility] 12-26-2023 CNPN Telephone ([facility]) KESHA CARMICHAEL ([id number]) 1945 F Date Time Provider Department 12/26/23 CHIP ARREOLA During your visit today, we recorded the following information about you: Angy Phipps RN 12/26/2023 12:01 PM Signed Patient calls to report that she has a dental appointment/procedur e on Friday and needs amoxicillin 30 min prior to the appointment. Pended previous prescription for review. Please call patient at [phone] if provider is willing to order prescription. JAMAR Oreilly William J, MD 12/26/2023 12:13 PM Signed sent Areli Moore MA 12/26/2023 12:30 PM Signed Pt notified. Areli Moore MA Allergies As of Date: 12/26/2023 Noted Allergy Reaction ADHESIVE TAPE-SILICONES 01/17/2020 2 - Rash Comments: ALL hydrogels, hydrocolloids, adhesives ANASTROZOLE 01/08/2019 14 - Other: See Comments Comments: migraines AQUACEL-AG (SILVER-HYDROCOLLOID D*06/18/2013 9 - Itching Comments: And redness AZITHROMYCIN 01/02/2012 7 - Swelling Comments: facial EXEMESTANE 09/04/2018 14 - Other: See Comments Comments: Decreased use of right arm LISINOPRIL 12/23/2019 3 - Cough Date Reviewed: 11/27/2023 Reviewed by: Belkys Mcintyre APRN.MINERALOGY PROFESSOR - Fully Assessed Reason for Visit: Patient Question [8876] Visit Diagnosis:Acute recurrent sinusitis, unspecified location [J01.91] Order(s):amoxicillin (AMOXIL) 500 mg capsuleTake four capsules 20 minutes before procedureDisp: 4 capsuleRfl: 0 Prescriptions as of 12/26/2023 - amoxicillin (AMOXIL) 500 mg capsule Take four capsules 20 minutes before procedure - magnesium oxide 400 mg magnesium tab Take 400 mg by mouth once daily. - melatonin 1 mg tablet Take 2 mg by mouth daily at bedtime. - POTASSIUM ORAL Take 1 capsule by mouth once daily. - valsartan (DIOVAN) 160 mg tablet Take 1 tablet by mouth once daily. - furosemide (LASIX) 40 mg tablet Take 1 tablet by mouth once daily. - metoprolol succinate ER (TOPROL XL) 50 mg 24 hr tablet Take 1 tablet by mouth once daily. - rivaroxaban (XARELTO) 20 mg tablet Take 1 tablet by mouth daily with dinner. - vit C,S-Oy-kzsqq-lutein- zeaxan (PRESERVISION AREDS-2) 250-90-40-1 mg Take 1 capsule by mouth twice daily with meals. - Cholecalciferol, Vitamin D3, 50 mcg (2,000 unit) cap Take 1 capsule by mouth once daily. - thiamine HCl (VITAMIN B-1 ORAL) Take 250 mg by mouth once daily. - multivitamins(DAILY MULTIVITAMIN TAB) Take one(1) tablet daily. Facility-Administere d Medications as of 12/26/2023 - perflutren lipid microspheres 1.3 mL in NaCl (PF) 0.9% 10 mL injection (DEFINITY) - sodium chloride 0.9 % (flush) 10 mL (BD POSIFLUSH) Problem List As Of Date 12/26/2023 Noted Resolved Acute appendicitis without mention of peritonit*03/04/2010 08/06/2012 Rotator cuff tear [M75.100] 04/03/2010 04/11/2016 Other physical therapy [RGP9913] 04/10/2010 07/01/2011 Seborrheic Keratosis [L82.1] 07/26/2010 07/01/2011 Solar lentigo [L81.4] 07/26/2010 07/01/2011 Actinic skin damage [L57.8] 07/26/2010 07/01/2011 Essential hypertension, benign [I10] 07/01/2011 Family history of breast cancer [Z80.3] 07/01/2011 04/15/2022 Osteoarthrosis, unspecified whether generalized*09/09/19 12 09/09/2011 Arthritis of knee [M17.10] 09/11/2011 09/11/2011 Pain in joint, lower leg [M25.569] 09/24/2011 03/21/2016 History of total bilateral knee replacement [Z9*09/24/2011 Arthritis of knee [M17.10] 05/31/2013 05/31/2013 Type 2 diabetes mellitus without complication, *04/11/2016 10/16/2022 Complete tear of right rotator cuff [M75.121] 06/24/2016 04/15/2022 Primary osteoarthritis of right shoulder [M19.0*06/24/2016 04/15/2022 Rotator cuff tear arthropathy, right [M75.101, *06/24/2016 Morbid obesity with BMI of 40.0-44.9, adult (HC*08/01/2017 Persistent atrial fibrillation (HCC) [I48.19] 08/18/2017 Malignant neoplasm of left breast in female, es*02/24/2018 Breast cancer, left breast (HCC) [C50.912] 02/24/2018 10/23/2021 Chronic right shoulder pain [M25.511, G89.29] 08/03/2018 04/15/2022 Chronic diastolic congestive heart failure (HCC*09/24/2018 Pulmonary HTN (HCC) [I27.20] 09/24/2018 Septic arthritis of shoulder, right (HCC) [M00.*10/07/2018 10/23/2021 Breast pain [N64.4] 12/03/2019 04/27/2021 S/P reverse total shoulder arthroplasty, right *03/04/2020 Rotator cuff tear arthropathy, left [M75.102, M*04/13/2020 Essential tremor [G25.0] 06/22/2020 Trochanteric bursitis of right hip [M70.61] 02/21/2021 04/15/2022 Osteoarthritis of spine with radiculopathy, lum*02/21/2021 CKD (chronic kidney disease) stage 3, GFR 30-59*10/29/2021 10/16/2022 Microalbuminuria [R80.9] 10/29/2021 12/24/2021 Acute pain of right wrist [M25.531] 08/22/2021 04/15/2022 Closed fracture of right distal radius [S52.501*09/10/2021 04/15/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 Normal [facility] CNOVon 11-27-2023 CNOV Office Visit ([facility]) KESHA CARMICHAEL ([id number]) 1945 F Date Time Provider Department 11/27/23 9:00 AM [facility] During your visit today, we recorded the following information about you: Pulse Blood pressure Weight Height 78/minute 120/80 95.3 kg 1.52 m Belkys Mcintyre APRN.[facility] 11/27/2023 9:46 AM Addendum Chief Reason For Appointment Patient presents with: Medicare Wellness Exam Kesha Carmichael is a 78 year old female who presents for annual exam. Last office visit date: 03/12/2023 Accompanied By self only Have you had any critical events, hospital stays, ER visits, surgeries or procedures since your last visit here in our office: No Specialists/Other Healthcare Providers Seen: Patient Care Team: Chip Arreola MD as PCP - General (Family Medicine) Inocente Romero MD as Roguer (Cardiology) Antonio Cagle MD, PhD as Primary Staff Physician (Cardiology) David Galo MD as Consulting (Infectious Diseases) Dayanna Lewis MD as Consulting (Orthopedics) Chip Arreola MD as Home Care Provider (Family Medicine) Dayanna Lewis MD as Referring (Orthopedics) Bridgett Guzman RN as Public Speaking Coach (Post Acute Care) Concerns today: Seeing eye doctor for infection left eye HPI Has an ulcer in left eye- using drops in left eye Getting better Active Problems ACTIVE PROBLEM LIST Intermediate Stage 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 Macular Degeneration of Both Eyes - 05/02/2023 Pseudophakia - 05/02/2023 Posterior Vitreous Detachment of Both Eyes - 05/02/2023 H/O Mitral Valve Disease - 02/24/2023 Director Private Current Use of Anticoagulant Therapy - 04/15/2022 Obstructive Sleep Apnea Syndrome - 04/15/2022 Comment: Uses cpap Type 2 Diabetes Mellitus With Diabetic Chronic Kidney Disease (Hcc) - 04/15/2022 Osteoarthritis of Spine With Radiculopathy, Lumbar Region - 02/21/2021 Essential Tremor - 06/22/2020 Rotator Cuff Tear Arthropathy, Left - 04/13/2020 S/P Reverse Total Shoulder Arthroplasty, Right - 03/04/2020 Chronic Diastolic Congestive Heart Failure (Hcc) - 09/24/2018 Pulmonary Htn ([facility]) - 09/24/2018 Malignant Neoplasm of Left Breast in Female, Estrogen Receptor Positive ([facility]) - 02/24/2018 Persistent Atrial Fibrillation ([facility]) - 08/18/2017 Comment: Patient elected to stop eliquis and declined coumadin. Started asa a day. Aware of risks. Sees [facility] cardiology in [place] Morbid Obesity With Bmi of 40.0-44.9, Adult (Hcc) - 08/01/2017 Rotator Cuff Tear Arthropathy, Right - 06/24/2016 History of Total Bilateral Knee Replacement - 09/24/2011 Essential Hypertension, Benign - 07/01/2011 ROS: REVIEW OF SYSTEMS GENERAL: No weight loss- some gain, malaise or fevers/chills HEENT: Negative for frequent or significant headaches, No changes in hearing, some changes in vision as above. NECK: Negative for lumps, goiter, pain and significant neck swelling RESPIRATORY: Negative for cough, hemoptysis, some wheezing with climbing stairs, + dyspnea or shortness of breath with exertion CARDIOVASCULAR: Negative for chest pain, leg swelling, + orthopnea- uses CPAP, always palpitations- has Afib GI: No nausea, vomiting, or diarrhea/constipatio n. No hematochezia/melena. occ heartburn or reflux symptoms. : No history of dysuria, no frequency or incontinence MUSCULOSKELETAL: Negative for joint pain or swelling. SKIN: Negative for lesions, rash, and itching ENDOCRINE: Some urgency, no polyuria, polydipsia and goiter NEURO: No history of headaches, syncope, paralysis, no seizures, + essential tremors MOOD: Negative for depression, anxiety, or suicidal ideation. PAST MEDICAL HISTORY No date: Abnormal EKG Comment: afib, inf [place] age undetermined No date: Atrial fibrillation (HCC) 03/2018: Breast cancer (HCC) Comment: left breast 09/10/2021: Closed fracture of right distal radius 09/24/2018: Congestive heart failure (HCC) No date: Epistaxis Comment: balloon out osteo 2004: History of colonoscopy Comment: Per Dr. Stoney Hernandez , normal No date: HTN (hypertension) No date: Hyperglycemia No date: Knee pain, chronic Comment: Lt No date: Migraines Comment: stopped when she retired 2004: Normal cardiac stress test Comment: Dr. Romero No date: Osteoarthritis No date: Seasonal allergies 04/11/2016: Type 2 diabetes mellitus without complication, without long-term current use of insulin (HCC) PAST SURGICAL HISTORY 2011: ARTHRP KNE CONDYLEANDPLATU MEDIALANDLAT COMPARTMENTS Comment: Knee replacement, total, right : ARTHRP KNE CONDYLEANDPLATU MEDIALANDLAT COMPARTMENTS Comment: Knee replacement, total, left 2003: BIOPSY BREAST OPEN INCISIONAL Comment: Bx of breast, incisional left 02/28/10: LAPAROSCOPIC APPENDECTOMY 1973: LIG/TRNSXJ FLP TUBE ABDL/VAG APPR UNI/BI Comment: Tubal ligation 03/27/2018: PAST SURGICAL HISTORY OF; Le (more content not included)... Normal [facility] CNCOon 11-13-2023 CNCO HNO ID: [id number] Author: COORDINATOR, MAMMOGRAPHY, ? Service: ? Author Type: Physician Type: Letter Filed: 11/13/2023 21:37 Note Text: November 14, 2023 PID: [id number] Kesha Carmichael [address] [place] [address] Dear Ms. Carmichael, We are pleased to inform you that the results of your recent breast imaging exam on 11/12/2023 are normal. Breast tissue can be either dense or not dense. Dense tissue makes it harder to find breast cancer on a mammogram and also raises the risk of developing breast cancer. Your breast tissue is not dense. Talk to your healthcare provider about breast density, risks for breast cancer, and your individual situation. Early detection of cancer is very important. We also understand recommendations regarding breast cancer screening are controversial. Please discuss with your primary care provider which strategy is best for you and whether a mammogram is right for you. Your imaging studies and report will be kept on file at [facility] as part of your permanent medical record and are available for your continuing care. Thank you for allowing us to help in meeting your health care needs. Sincerely, Dr. Oquendo Interpreting Radiologist [facility] (Normal over 40) Normal [facility] SCREENING W TOMOon 11-11 [facility] SCREENING W TERE * * *Final Report* * * DATE OF EXAM: Nov 12 2023 2:24PM WRW 0582 - [facility] SCREENING W TERE / PROCEDURE REASON: Encounter for screening mammogram for malignant neoplasm of breast * * * * Physician Interpretation * * * * RESULT: #[id number] - [facility] SCREENING W TERE BILATERAL DIGITAL SCREENING MAMMOGRAM TOMOSYNTHESIS WITH CAD: 11/12/2023 HISTORY: Encounter For Screening Mammogram For Malignant Neoplasm Of Breast /Screening Mammogram with TERE - patient reports NO breast symptoms /priors available for comparison. RESULT: TECHNIQUE: The study was acquired using full field digital technology and interpreted from soft copy. Digital Breast Tomosynthesis (DBT) images were obtained and used to assist in the interpretation of this examination. Current study was also evaluated with a Computer Aided Detection (CAD). Comparison is made to exams dated: 10/26/2021 mammogram, 09/05/2020 mammogram, and 11/08/2022 mammogram - [facility]. There are scattered areas of fibroglandular density. There are benign post operative findings in the left breast. No significant masses, calcifications, or other findings are seen in either breast. There has been no significant interval change. IMPRESSION: BENIGN There is no mammographic evidence of malignancy. A 1 year screening mammogram is recommended. Kemal rosen/dewayne:11/13/2023 21:37:16 Sound Designer(s): RT Oseas(R)(M), [facility] letter sent: Normal over 40 Mammogram BI-RADS: Category 2: Benign Multiple national specialty organizations have released breast cancer screening guidelines for women at average risk for developing breast cancer - guidelines that are based on both evidence and opinion, yet differ on when to start and how often to screen for breast cancer. With representation from Breast Imaging, Internal Medicine, Women's Health, Family Medicine, and Medical/Surgical Oncology, the [facility] has carefully reviewed the data and reached the following consensus: 1) All women should engage in shared decision-making with their providers to decide when to start and how often to screen; 2) All women should have the opportunity to start screening mammography at age 40; 3) For women ages 45-55, we recommend annual screening mammograms; 4) For women ages 55 and over, we support both the transition from an annual to a biennial interval if this aligns more with patient's values and preferences, or continuation with annual screening; 5) All women should discuss with their providers when to stop screening mammograms. International Exchange Coordinator: Dewayne Transcribe Date/Time: Nov 12 2023 1:46P Dictated by: KEMAL OQUENDO MD This examination was interpreted and the report reviewed and electronically signed by: KEMAL OQUENDO MD on Nov 13 2023 9:37PM EST [id number] Normal [facility] FUNDUS AUTOFLUORESCENCE PHOT O (FAF) OU (BOTH EYES)on 10-31-2023 [facility] Radiology Study observation (narrative) [facility] [place] OCT MACULA CIRRUS OU (BOTH E YES)on 10-31-2023 [facility] Radiology Study observation (narrative) [facility] XR Ankle - left AP and Later al and obliqueon 03-13-2023 IMPRESSION: No acute osseous abnormality International Exchange Coordinator: RG Transcribe Date/Time: Mar 13 2023 5:03P Dictated by : SADIE PETER MD This examination was interpreted and the report reviewed and electronically signed by: SADIE PETER MD on Mar 13 2023 5:04PM EST DIVISION OF RADIOLOGY * * *Final Report* * * DATE OF EXAM: Mar 12 2023 12:26PM WOX 5298 - XR ANKLE 3V AP/LAT/OBL LT / PROCEDURE REASON: Pain of left lower extremity * * * * Physician Interpretation * * * * EXAMINATION: XR ANKLE 3V AP/LAT/OBL LT CLINICAL HISTORY: Left ankle pain Technique: XR ANKLE 3V AP/LAT/OBL LT -- LEFT with 3 views on 3 images Comparison: X-ray left ankle 07/12/2014 RESULT: No acute fracture or dislocation. Ankle mortise is maintained. Pes planus. Small posterior calcaneal enthesophyte. DIVISION OF RADIOLOGY Provider, [facility] [place] - 03/13/2023 * * *Final Report* * * DATE OF EXAM: Mar 12 2023 12:26PM WOX 5298 - XR ANKLE 3V AP/LAT/OBL LT / PROCEDURE REASON: Pain of left lower extremity * * * * Physician Interpretation * * * * EXAMINATION: XR ANKLE 3V AP/LAT/OBL LT CLINICAL HISTORY: Left ankle pain Technique: XR ANKLE 3V AP/LAT/OBL LT -- LEFT with 3 views on 3 images Comparison: X-ray left ankle 07/12/2014 RESULT: No acute fracture or dislocation. Ankle mortise is maintained. Pes planus. Small posterior calcaneal enthesophyte. IMPRESSION IMPRESSION: No acute osseous abnormality International Exchange Coordinator: RG Transcribe Date/Time: Mar 13 2023 5:03P Dictated by : SADIE PETER MD This examination was interpreted and the report reviewed and electronically signed by: SADIE PETER MD on Mar 13 2023 5:04PM EST [facility] XR Ankle - left AP and Later al and obliqueOrdered By: [facility] Provider on 03-13-2023 [facility] XR Ankle - left AP and Later al and obliqueon 03-12-2023 Radiology Study observation (narrative) [facility] MAHAD SCREENINGon 11-08-2022 [facility] XR SHOULDER GENERAL 3V OR MO RE AP/TRUE AP/OTHER RIGHTon 05-16-2022 [facility] MAHAD SCREENINGon 10-26-2021 [facility] No Panel Informationon 09-10 [facility] XR WRIST INJURY 4V PA/LAT/OB L/SCAPH RIGHTon 08-22-2021 [facility] XR Wrist - right 4 Viewson 0 08-22-2021 IMPRESSION: Nondisplaced transverse fracture involving the radial styloid process which appears to be subacute in nature. Correlation with patient history and physical exam findings may be helpful. International Exchange Coordinator: PSCB Transcribe Date/Time: Aug 22 2021 10:45A Dictated by : DILMA CARRILLO MD This examination was interpreted and the report reviewed and electronically signed by: DILMA CARRILLO MD on Aug 22 2021 10:47AM EST [email or web address] SE_DIVISION OF RADIOLOGY * * *Final Report* * * DATE OF EXAM: Aug 22 2021 10:43AM WOX 5273 - XR WRIST 4V PA/LAT/OBL/SCAPH RT / PROCEDURE REASON: Acute pain of right wrist * * * * Physician Interpretation * * * * Right wrist radiograph HISTORY: 76 years old Clinical information: Acute pain of right wrist Right radial sided wrist pain x 1 week following a fall TECHNIQUE: Images: XR WRIST 4V PA/LAT/OBL/SCAPH RT Comparison: None. RESULT: Findings: Transverse nondisplaced fracture involving the radial styloid process which appears to be subacute in nature. Ossification adjacent to the ulnar styloid process related to prior trauma. Chondrocalcinosis in the region of the triangular fibrocartilage. Osteophyte formation subjacent to the first CMC joint. Negative ulnar variance. Soft tissue calcification radial to the distal scaphoid. [id number]_U _DIVISION OF RADIOLOGY Provider, [facility] [place] - 08/22/2021 * * *Final Report* * * DATE OF EXAM: Aug 22 2021 10:43AM WOX 5273 - XR WRIST 4V PA/LAT/OBL/SCAPH RT / PROCEDURE REASON: Acute pain of right wrist * * * * Physician Interpretation * * * * Right wrist radiograph HISTORY: 76 years old Clinical information: Acute pain of right wrist Right radial sided wrist pain x 1 week following a fall TECHNIQUE: Images: XR WRIST 4V PA/LAT/OBL/SCAPH RT Comparison: None. RESULT: Findings: Transverse nondisplaced fracture involving the radial styloid process which appears to be subacute in nature. Ossification adjacent to the ulnar styloid process related to prior trauma. Chondrocalcinosis in the region of the triangular fibrocartilage. Osteophyte formation subjacent to the first CMC joint. Negative ulnar variance. Soft tissue calcification radial to the distal scaphoid. IMPRESSION IMPRESSION: Nondisplaced transverse fracture involving the radial styloid process which appears to be subacute in nature. Correlation with patient history and physical exam findings may be helpful. International Exchange Coordinator: RG Transcribe Date/Time: Aug 22 2021 10:45A Dictated by : DILMA CARRILLO MD This examination was interpreted and the report reviewed and electronically signed by: DILMA CARRILLO MD on Aug 22 2021 10:47AM EST [facility] Radiology Study observation (narrative) [facility] [place] XR Wrist - right 4 ViewsOrde red By: [facility] Provider on 08-22-2021 [facility] XR HIP 2V AP/LAT RTon 2020 XR HIP 2V AP/LAT RT * * *Final Report* * * DATE OF EXAM: Feb 15 2021 10:05AM ALEXANDRE 5280 - XR HIP 2V AP/LAT RT / PROCEDURE REASON: M25.551-Right hip pain * * * * Physician Interpretation * * * * Pelvis and right hip HISTORY: Indication: Right hip pain RIGHT HIP PAIN, RECENT FALL WITHIN A MONTH LANDING ON BILATERAL KNEES Pelvis, cross table lateral TECHNIQUE: Images: XR HIP 2V AP/LAT RT Comparison: None. RESULT: Findings: Mild scoliosis. Pelvis: No fractures or dislocations are seen. Mild narrowing of both hip joints. Right hip: No fractures or dislocations are seen. IMPRESSION: No fractures identified. If pain persists in the RIGHT hip then MRI would be recommended. International Exchange Coordinator: RG Transcribe Date/Time: Feb 15 2021 10:20A Dictated by : KELECHI COHN DO This examination was interpreted and the report reviewed and electronically signed by: KELECHI COHN DO on Feb 15 2021 10:21AM EST [id number] [facility] XR Knee - left 4 Viewson IMPRESSION: Satisfactory left knee arthroplasty. International Exchange Coordinator: RG Transcribe Date/Time: Mar 04 2020 10:54A Dictated by : BILL STAPLETON MD This examination was interpreted and the report reviewed and electronically signed by: BILL STAPLETON MD on Mar 04 2020 10:55AM EST DIVISION OF RADIOLOGY * * *Final Report* * * DATE OF EXAM: Mar 04 2020 10:23AM WOX 5202 - XR KNEE 4V AP/PA BOTH+LAT/OLIVA LT / PROCEDURE REASON: Acute pain of left knee * * * * Physician Interpretation * * * * LEFT KNEE RADIOGRAPHS HISTORY: Acute pain of left knee . TECHNIQUE: 4 views of the left knee are submitted. COMPARISON: No available comparisons. RESULT: Postsurgical changes are present from left total knee arthroplasty with patellar resurfacing. No periprosthetic loosening, fracture, or dislocation. DIVISION OF RADIOLOGY Provider, [facility] [place] - 03/04/2020 * * *Final Report* * * DATE OF EXAM: Mar 04 2020 10:23AM WOX 5202 - XR KNEE 4V AP/PA BOTH+LAT/OLIVA LT / PROCEDURE REASON: Acute pain of left knee * * * * Physician Interpretation * * * * LEFT KNEE RADIOGRAPHS HISTORY: Acute pain of left knee . TECHNIQUE: 4 views of the left knee are submitted. COMPARISON: No available comparisons. RESULT: Postsurgical changes are present from left total knee arthroplasty with patellar resurfacing. No periprosthetic loosening, fracture, or dislocation. IMPRESSION IMPRESSION: Satisfactory left knee arthroplasty. International Exchange Coordinator: RG Transcribe Date/Time: Mar 04 2020 10:54A Dictated by : BILL STAPLETON MD This examination was interpreted and the report reviewed and electronically signed by: BILL STAPLETON MD on Mar 04 2020 10:55AM EST [facility] Radiology [facility]narrative[facility] Knee - left 4 ViewsOrdere d By: [facility] Provider on 03-04-2020 [facility] MAMMO DIAGNOSTIC BILATERAL ( OUTSIDE IMAGE)on 03-02-2018 Outside Imaging Study for Support of Clinical Care This study was sent from an outside facility to [facility] for support of clinical care of the patient within the [facility]. Invalid Interpretation Code [facility] Work Phone: MAMMO DIAGNOSTIC LEFT (OUTSI DE IMAGE)on 03-02-2018 Outside Imaging Study for Support of Clinical Care This study was sent from an outside facility to [facility] for support of clinical care of the patient within the [facility]. Invalid Interpretation Code [facility] Work Phone: MAMMO SCREENING BILATERAL (O UTSIDE IMAGE)on 03-02-2018 Outside Imaging Study for Support of Clinical Care This study was sent from an outside facility to [facility] for support of clinical care of the patient within the [facility]. Invalid Interpretation Code [facility] Work Phone: Outside Imaging Study for Support of Clinical Care This study was sent from an outside facility to [facility] for support of clinical care of the patient within the [facility]. Invalid Interpretation Code [facility] Work Phone: Outside Imaging Study for Support of Clinical Care This study was sent from an outside facility to [facility] for support of clinical care of the patient within the [facility]. Invalid Interpretation Code [facility] Work Phone: Outside Imaging Study for Support of Clinical Care This study was sent from an outside facility to [facility] for support of clinical care of the patient within the [facility]. Invalid Interpretation Code [facility] Work Phone: US BREAST LEFT (OUTSIDE IMAG E)on 03-02-2018 Outside Imaging Study for Support of Clinical Care This study was sent from an outside facility to [facility] for support of clinical care of the patient within the [facility]. Invalid Interpretation Code [facility] Work Phone: US BREAST PROCEDURE (OUTSIDE IMAGE)on 03-02-2018 Outside Imaging Study for Support of Clinical Care This study was sent from an outside facility to [facility] for support of clinical care of the patient within the [facility]. Invalid Interpretation Code [facility] Work Phone: US BREAST RIGHT (OUTSIDE SIMRAN GE)on 03-02-2018 Outside Imaging Study for Support of Clinical Care This study was sent from an outside facility to [facility] for support of clinical care of the patient within the [facility]. Invalid Interpretation Code [facility] Work Phone: Vital Signs Date Time Vital Sign Value Performing Clinician Facility 10-11-2024 11:25-0400 Body height 152.[address] Chip Arreola MD Work Phone: [facility] 10-11-2024 11:25-0400 Body mass index (BMI) [Ratio] 40.1 kg/m2 Dr. Chip Arreola MD Work Phone: [facility] 10-11-2024 11:25-0400 Body weight 93.[address] Chip Arreola MD Work Phone: [phone] [place] [address] 10-11-2024 11:18-0400 Body temperature 99.2 [degF] Dr. Chip Arreola MD Work Phone: [phone])[phone] [place] [address] 10-11-2024 11:18-0400 Diastolic blood pressure 93 mm[Hg] Dr. Chip Arreola MD Work Phone: 9(889)028-795176 [place] [address] 10-11-2024 11:18-0400 Heart rate 116 /min Dr. Chip Arreola MD Work Phone: [phone])001-230076 [place] [address] 10-11-2024 11:18-0400 Respiratory rate 18 /min Dr. Chip Arreola MD Work Phone: 7(350)[phone] [place] [address] 10-11-2024 11:18-0400 SaO2% (BldA) [Mass fraction] 95 % Dr. Chip Arreola MD Work Phone: 4([phone] [place] [address] 10-11-2024 11:18-0400 Systolic blood pressure 115 mm[Hg] Dr. Chip Arreola MD Work Phone: [phone])[phone] [place] [address] 10-04-2024 10:34-0400 Diastolic blood pressure 40 mm[Hg] [employer] FITNESS CONSULTANT.MINERALOGY PROFESSOR Work Phone: [facility] 10-04-2024 10:34-0400 Systolic blood pressure 114 mm[Hg] [employer] FITNESS CONSULTANT.MINERALOGY PROFESSOR Work Phone: [facility] 10-04-2024 09:58-0400 Body mass index (BMI) [Ratio] 42.21 kg/m2 [employer] FITNESS CONSULTANT.MINERALOGY PROFESSOR Work Phone: [facility] 10-04-2024 09:58-0400 Body weight 94.8 kg [employer] FITNESS CONSULTANT.MINERALOGY PROFESSOR Work Phone: [facility] 10-04-2024 09:58-0400 Heart rate 91 /min [employer] FITNESS CONSULTANT.MINERALOGY PROFESSOR Work Phone: [facility] 10-04-2024 09:58-0400 SaO2% (BldA) [Mass fraction] 98 % [employer] FITNESS CONSULTANT.MINERALOGY PROFESSOR Work Phone: [facility] 05-27-2024 08:27-0500 Body mass index (BMI) [Ratio] 41.4 kg/m2 [employer] FITNESS CONSULTANT.MINERALOGY PROFESSOR Work Phone: [facility] 05-27-2024 08:27-0500 Body temperature 97.39 [degF] [employer] FITNESS CONSULTANT.MINERALOGY PROFESSOR Work Phone: [facility] 05-27-2024 08:27-0500 Body weight 92.99 kg Belk[employer] FITNESS CONSULTANT.MINERALOGY PROFESSOR Work Phone: [facility] 05-27-2024 08:27-0500 Diastolic blood pressure 80 mm[Hg] [employer] FITNESS CONSULTANT.MINERALOGY PROFESSOR Work Phone: [facility] 05-27-2024 08:27-0500 Heart rate 61 /min Belk[employer] Supp[employer] FITNESS CONSULTANT.MINERALOGY PROFESSOR Work Phone: [facility] 05-27-2024 08:27-0500 SaO2% (BldA) [Mass fraction] 94 % [employer] Supp[employer] FITNESS CONSULTANT.MINERALOGY PROFESSOR Work Phone: [facility] 05-27-2024 08:27-0500 Systolic blood pressure 132 mm[Hg] [employer] Supp[employer] FITNESS CONSULTANT.MINERALOGY PROFESSOR Work Phone: [facility] 04-19-2024 13:44-0500 Body mass index (BMI) [Ratio] 42.21 kg/m2 [employer] FITNESS CONSULTANT.MINERALOGY PROFESSOR Work Phone: [facility] 04-19-2024 13:44-0500 Body weight 94.8 kg Belkys Supp[employer] FITNESS CONSULTANT.MINERALOGY PROFESSOR Work Phone: [facility] 04-19-2024 13:44-0500 Diastolic blood pressure 84 mm[Hg] [employer] Supp[employer] FITNESS CONSULTANT.MINERALOGY PROFESSOR Work Phone: [facility] 04-19-2024 13:44-0500 Heart rate 76 /min Belkys Supp[employer] FITNESS CONSULTANT.MINERALOGY PROFESSOR Work Phone: [facility] 04-19-2024 13:44-0500 Respiratory rate 16 /min [employer] FITNESS CONSULTANT.MINERALOGY PROFESSOR Work Phone: [facility] 04-19-2024 13:44-0500 SaO2% (BldA) [Mass fraction] 98 % [employer] Supp[employer] FITNESS CONSULTANT.MINERALOGY PROFESSOR Work Phone: [facility] 04-19-2024 13:44-0500 Systolic blood pressure 128 mm[Hg] [employer] Suppan FITNESS CONSULTANT.MINERALOGY PROFESSOR Work Phone: [facility] 04-05-2024 14:15-0500 Body height 149.9 cm Anuj Navarro MD Work Phone: [facility] 04-05-2024 14:15-0500 Body mass index (BMI) [Ratio] 42.62 kg/m2 Anuj Navarro MD Work Phone: [facility] 04-05-2024 14:15-0500 Body weight 95.71 kg Anuj Navarro MD Work Phone: [facility] 04-05-2024 14:15-0500 Diastolic blood pressure 85 mm[Hg] Anuj Navarro MD Work Phone: [facility] 04-05-2024 14:15-0500 Heart rate 103 /min Anuj Navarro MD Work Phone: [facility] Comment on above: 103-125 h/o afib 04-05-2024 14:15-0500 Respiratory rate 14 /min Anuj Navarro MD Work Phone: [facility] 04-05-2024 14:15-0500 SaO2% (BldA) [Mass fraction] 97 % Anuj Navarro MD Work Phone: [facility] 04-05-2024 14:15-0500 Systolic blood pressure 122 mm[Hg] Anuj Navarro MD Work Phone: [facility] 03-09-2024 10:24-0500 Body mass index (BMI) [Ratio] 40.94 kg/m2 [employer] Supp[employer] FITNESS CONSULTANT.MINERALOGY PROFESSOR Work Phone: [facility] 03-09-2024 10:24-0500 Body weight 94.6 kg Belkys Suppan FITNESS CONSULTANT.MINERALOGY PROFESSOR Work Phone: [facility] 03-09-2024 10:24-0500 Diastolic blood pressure 78 mm[Hg] Belkys Suppan FITNESS CONSULTANT.MINERALOGY PROFESSOR Work Phone: [facility] 03-09-2024 10:24-0500 Heart rate 110 /min Belkys Suppan FITNESS CONSULTANT.MINERALOGY PROFESSOR Work Phone: [facility] 03-09-2024 10:24-0500 Respiratory rate 16 /min Belkys Suppan FITNESS CONSULTANT.MINERALOGY PROFESSOR Work Phone: [facility] 03-09-2024 10:24-0500 SaO2% (BldA) [Mass fraction] 100 % Belkys Suppan FITNESS CONSULTANT.MINERALOGY PROFESSOR Work Phone: [facility] 03-09-2024 10:24-0500 Systolic blood pressure 122 mm[Hg] Belkys Suppan FITNESS CONSULTANT.MINERALOGY PROFESSOR Work Phone: [facility] 11-27-2023 08:56-0400 Body height 152 cm Belkys Suppan FITNESS CONSULTANT.MINERALOGY PROFESSOR Work Phone: [facility] 11-27-2023 08:56-0400 Body mass index (BMI) [Ratio] 41.23 kg/m2 [employer] Supp[employer] FITNESS CONSULTANT.MINERALOGY PROFESSOR Work Phone: [facility] 11-27-2023 08:56-0400 Body weight 95.25 kg Belkys Suppan FITNESS CONSULTANT.MINERALOGY PROFESSOR Work Phone: [facility] 11-27-2023 08:56-0400 Diastolic blood pressure 80 mm[Hg] Belkys Suppan FITNESS CONSULTANT.MINERALOGY PROFESSOR Work Phone: [facility] 11-27-2023 08:56-0400 Heart rate 78 /min Belkys Suppan FITNESS CONSULTANT.MINERALOGY PROFESSOR Work Phone: [facility] 11-27-2023 08:56-0400 SaO2% (BldA) [Mass fraction] 98 % Belkys Mcintyre FITNESS CONSULTANT.MINERALOGY PROFESSOR Work Phone: [facility] 11-27-2023 08:56-0400 Systolic blood pressure 120 mm[Hg] Belkys Mcintyre FITNESS CONSULTANT.MINERALOGY PROFESSOR Work Phone: [facility] 08-25-2023 10:57-0400 Body height 152.4 cm Anuj Navarro MD Work Phone: [facility] 08-25-2023 10:57-0400 Body mass index (BMI) [Ratio] 40.15 kg/m2 Anuj Navarro MD Work Phone: [facility] 08-25-2023 10:57-0400 Body weight 93.26 kg Anuj Navarro MD Work Phone: [facility] 08-25-2023 10:57-0400 Diastolic blood pressure 86 mm[Hg] Anuj Navarro MD Work Phone: [facility] 08-25-2023 10:57-0400 Heart rate 72 /min Anuj Navarro MD Work Phone: [facility] 08-25-2023 10:57-0400 SaO2% (BldA) [Mass fraction] 98 % Anuj Navarro MD Work Phone: [facility] 08-25-2023 10:57-0400 Systolic blood pressure 118 mm[Hg] Anuj Navarro MD Work Phone: [facility] 03-12-2023 11:32-0500 Body height 152.4 cm Chip Arreola MD Work Phone: [facility] 03-12-2023 11:32-0500 Body weight 92.44 kg Chip Arreola MD Work Phone: [facility] 03-12-2023 11:32-0500 Diastolic blood pressure 72 mm[Hg] Chip Arreola MD Work Phone: [facility] 03-12-2023 11:32-0500 Heart rate 86 /min Chip Arreola MD Work Phone: [facility] 03-12-2023 11:32-0500 SaO2% (BldA) [Mass fraction] 99 % Chip Arreola MD Work Phone: [facility] 03-12-2023 11:32-0500 Systolic blood pressure 108 mm[Hg] Chip Arreola MD Work Phone: [facility] 02-24-2023 10:35-0500 Diastolic blood pressure 82 mm[Hg] Anuj Navarro MD Work Phone: [facility] 02-24-2023 10:35-0500 Systolic blood pressure 128 mm[Hg] Anuj Navarro MD Work Phone: [facility] 02-24-2023 10:22-0500 Body weight 93.89 kg Anju Navarro MD Work Phone: [facility] 02-24-2023 10:22-0500 Heart rate 68 /min Anuj Navarro MD Work Phone: [facility] 02-24-2023 10:22-0500 SaO2% (BldA) [Mass fraction] 97 % Anuj Navarro MD Work Phone: [facility] 04-15-2022 14:15-0500 Diastolic blood pressure 86 mm[Hg] Chip Arreola MD Work Phone: [facility] 04-15-2022 14:15-0500 Systolic blood pressure 130 mm[Hg] Chip Arreola MD Work Phone: [facility] 04-15-2022 13:39-0500 Body height 152.4 cm Chip Arreola MD Work Phone: [facility] 04-15-2022 13:39-0500 Body weight 95.89 kg Chip Arreola MD Work Phone: [facility] 04-15-2022 13:39-0500 Heart rate 102 /min Chip Arreola MD Work Phone: [facility] 04-15-2022 13:39-0500 SaO2% (BldA) [Mass fraction] 99 % Chip Arreola MD Work Phone: [facility] 04-14-2022 09:24-0500 Diastolic blood pressure 88 mm[Hg] Ginger Christiansonado PA-C Work Phone: [facility] 04-14-2022 09:24-0500 Heart rate 84 /min Ginger Christiansonado PA-C Work Phone: [facility] 04-14-2022 09:24-0500 Systolic blood pressure 155 mm[Hg] Ginger Christiansonado PA-C Work Phone: [facility] 04-14-2022 09:17-0500 Body height 154.9 cm Ginger Freado PA-C Work Phone: [facility] 04-14-2022 09:17-0500 Body mass index (BMI) [Ratio] 39.68 kg/m2 Ginger Freado PA-C Work Phone: [facility] 04-14-2022 09:17-0500 Body temperature 99.19 [degF] Ginger Christiansonado PA-C Work Phone: [facility] 04-14-2022 09:17-0500 Body weight 95.25 kg Ginger Freado PA-C Work Phone: [facility] 04-14-2022 09:17-0500 Respiratory rate 16 /min Ginger Christiansonado PA-C Work Phone: [facility] 04-14-2022 09:17-0500 SaO2% (BldA) [Mass fraction] 95 % Ginger Christiansonado PA-C Work Phone: [facility] 03-25-2022 10:25-0500 Body weight 95.25 kg Anuj Navarro MD Work Phone: [facility] 03-25-2022 10:25-0500 Diastolic blood pressure 80 mm[Hg] Anuj Navarro MD Work Phone: [facility] 03-25-2022 10:25-0500 Heart rate 120 /min Anuj Navarro MD Work Phone: [facility] 03-25-2022 10:25-0500 SaO2% (BldA) [Mass fraction] 94 % Anuj Navarro MD Work Phone: [facility] 03-25-2022 10:25-0500 Systolic blood pressure 140 mm[Hg] Anuj Navarro MD Work Phone: [facility] 12-24-2021 14:48-0400 Body height 152.4 cm Chip Arreola MD Work Phone: [facility] 12-24-2021 14:48-0400 Body weight 96.53 kg Chip Arreola MD Work Phone: [facility] 12-24-2021 14:48-0400 Diastolic blood pressure 80 mm[Hg] Chip Arreola MD Work Phone: [facility] 12-24-2021 14:48-0400 Heart rate 99 /min Chip Arreola MD Work Phone: [facility] 12-24-2021 14:48-0400 SaO2% (BldA) [Mass fraction] 97 % Chip Arreola MD Work Phone: [facility] 12-24-2021 14:48-0400 Systolic blood pressure 128 mm[Hg] Chip Arreola MD Work Phone: [facility] 10-25-2021 13:34-0400 Body weight 98.43 kg Chip Arreola MD Work Phone: [facility] 10-25-2021 13:34-0400 Diastolic blood pressure 82 mm[Hg] Chip Arreola MD Work Phone: [facility] 10-25-2021 13:34-0400 Heart rate 88 /min Chip Arreola MD Work Phone: [facility] 10-25-2021 13:34-0400 Systolic blood pressure 122 mm[Hg] Chip Arreola MD Work Phone: [facility] 08-27-2021 13:20-0400 Body height 152.4 cm Donald Massey MD Work Phone: [facility] 08-27-2021 13:20-0400 Body weight 97.07 kg Donald Massey MD Work Phone: [facility] 08-22-2021 10:03-0400 Body temperature 97.2 [degF] Jaleel Cerda MD Work Phone: [facility] 08-22-2021 10:03-0400 Body weight 100.15 kg Jaleel Cerda MD Work Phone: [facility] 08-22-2021 10:03-0400 Diastolic blood pressure 80 mm[Hg] Jaleel Cerda MD Work Phone: [facility] 08-22-2021 10:03-0400 Heart rate 90 /min Jaleel Cerda MD Work Phone: [facility] 08-22-2021 10:03-0400 Respiratory rate 20 /min Jaleel Cerda MD Work Phone: [facility] 08-22-2021 10:03-0400 SaO2% (BldA) [Mass fraction] 96 % Jaleel Cerda MD Work Phone: [facility] 08-22-2021 10:03-0400 Systolic blood pressure 132 mm[Hg] Jaleel Cerda MD Work Phone: [facility] Encounters Encounter Date Encounter Type Care Provider Facility Start: 10-11-2024 Non-patient / Non-visit Dr. Dayanna adhikari DO [facility] Work Phone: Start: 10-11-2024 Evaluation and management of inpatient Dr. Lida Blum MD -Progressive Care Unit Work Phone: Start: 10-07-2024 End: 10-07-2024 Patient encounter procedure Dominga Reese PA-C Work Phone: Orthopaedics Comment on above: Rotator cuff tear ar thropathy, left; Rotator cuff tear arthropathy, right Start: 10-07-2024 End: 10-07-2024 ambulatory DOMINGA REESE Facility:[facility] Start: 10-05-2024 End: 10-06-2024 Follow-up encounter Belkys Mcintyre APRN.MINERALOGY PROFESSOR Work Phone: [facility] [place] Comment on above: Results (/) Start: 10-04-2024 End: 10-04-2024 ambulatory BELKYS MCINTYRE Facility:[facility] Start: 10-04-2024 End: 10-04-2024 Office outpatient visit 15 minutes Belkys Mcintyre FITNESS CONSULTANT.MINERALOGY PROFESSOR [facility] Comment on above: Hypercalcemia (Prima ry Dx); Bilateral leg edema; Essential hypertension, benign; Congestive heart failure, unspecified HF chronicity, unspecified heart failure type (HCC); Malignant neoplasm of left breast in female, estrogen receptor positive, 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 (HCC); Body mass index (BMI) 40.0-44.9, adult (HCC); Chronic kidney disease, stage 3a (HCC); Abnormality of gait; Falling episodes Start: 10-04-2024 End: 10-04-2024 ambulatory CHIP ARREOLA Facility:[facility] Start: 09-29-2024 End: 09-29-2024 ambulatory Belkys Mcintyre FITNESS CONSULTANT.MINERALOGY PROFESSOR Work Phone: [facility] Comment on above: Bloodwork Start: 07-24-2024 End: 07-26-2024 Refill Chip Arreola MD Work Phone: [facility] Comment on above: Refill Request Start: 06-24-2024 End: 06-24-2024 ambulatory DAYANNA LEWIS Facility:[facility] Start: 06-24-2024 End: 06-24-2024 Patient encounter procedure Dayanna Lewis MD Work Phone: Orthopaedics Comment on above: Rotator cuff tear ar thropathy, left (Primary Dx); Rotator cuff tear arthropathy, right Start: 06-18-2024 End: 06-18-2024 ambulatory DAYANNA LEWIS Facility:[facility] Start: 06-18-2024 End: 06-18-2024 Subsequent hospital visit by physician Jl [facility] [place] Work Phone: Radiology Comment on above: Rotator cuff tear ar thropathy, right [M75.101, M12.811] Start: 06-14-2024 End: 06-14-2024 Orders Only Dayanna Lewis MD Work Phone: Orthopaedics Comment on above: Rotator cuff tear ar thropathy, left (Primary Dx) Start: 06-07-2024 End: 06-07-2024 ambulatory Blossom O'Oleg PT [facility] Comment on above: Falls frequently (Pr imary Dx) Rotator cuff tear ar thropathy, right (Primary Dx) Start: 05-31-2024 End: 05-31-2024 Follow-up encounter Belkys Mcintyre APRN.MINERALOGY PROFESSOR Work Phone: [facility] Start: 05-28-2024 End: 07-28-2024 Follow-up encounter Belkys Mcintyre APRN.MINERALOGY PROFESSOR Work Phone: [facility] Start: 05-27-2024 End: 05-27-2024 Subsequent hospital visit by physician [facility] [place] Work Phone: Radiology Comment on above: Pain of right hip [M 25.551] Start: 05-27-2024 End: 05-27-2024 ambulatory BELKYS MCINTYRE Facility:[facility] Start: 05-27-2024 End: 05-27-2024 Office outpatient visit 25 minutes Belkys Mcintyre APRN.MINERALOGY PROFESSOR Work Phone: [facility] Comment on above: Itching with irritat ion (Primary Dx); Cellulitis of skin; Pain of right hip; Type 2 diabetes mellitus with chronic kidney disease, without long-term current use of insulin, unspecified CKD stage (HCC); Persistent atrial fibrillation (HCC); Chronic diastolic congestive heart failure (HCC); Pulmonary HTN (HCC); History of total bilateral knee replacement; Vitamin D deficiency Start: 05-26-2024 End: 05-26-2024 ambulatory Blossom Christian'Oleg PT [facility] Comment on above: Falls frequently (Pr imary Dx) Start: 05-24-2024 End: 05-24-2024 Patient encounter procedure Belkys Mcintyre FITNESS CONSULTANT.MINERALOGY PROFESSOR Work Phone: [facility] Comment on above: Appointment Start: 05-24-2024 End: 05-24-2024 ambulatory Blossom O'Oleg PT [facility] Comment on above: Falls frequently (Pr imary Dx) Start: 05-10-2024 End: 05-10-2024 ambulatory Tanya Meza CIRCULATION MAN Work Phone: [facility] Comment on above: Falls frequently (Pr imary Dx) Start: 05-07-2024 End: 05-07-2024 ambulatory Blossom O'Oleg PT [facility] Comment on above: Falls frequently (Pr imary Dx) Start: 05-03-2024 End: 05-03-2024 ambulatory Blossom O'Oleg PT [facility] Comment on above: Falls frequently (Pr imary Dx) Start: 04-30-2024 End: 04-30-2024 ambulatory Tanya Meza CIRCULATION MAN Work Phone: [facility] Comment on above: Falls frequently (Pr imary Dx) Start: 04-26-2024 End: 04-26-2024 ambulatory Blossom O'Oleg PT [facility] Comment on above: Falls frequently (Pr imary Dx) Start: 04-22-2024 End: 04-22-2024 Telephone encounter Abiola Weaver MD Work Phone: Ophthalmology Start: 04-19-2024 End: 04-19-2024 Office outpatient visit 15 minutes Belkys Mcintyre APRN.MINERALOGY PROFESSOR Work Phone: [facility] Comment on above: Infected abrasion of left lower extremity, initial encounter (Primary Dx) Start: 04-19-2024 End: 04-19-2024 ambulatory CHIP ARREOLA Facility:[facility] Start: 04-19-2024 End: 04-19-2024 ambulatory Blossom O'Oleg PT [facility] Comment on above: Falls frequently (Pr imary Dx) Start: 04-15-2024 End: 04-15-2024 ambulatory Belkys Mcintyre APRN.MINERALOGY PROFESSOR Work Phone: [facility] Comment on above: gabapentin Start: 04-08-2024 End: 04-08-2024 ambulatory [facility] Facility:[facility] Start: 04-05-2024 End: 04-05-2024 ambulatory [facility] Facility:[facility] Start: 04-05-2024 End: 04-05-2024 Patient encounter procedure Anuj Navarro MD Work Phone: Cardiology Comment on above: Persistent atrial fi brillation (HCC) (Primary Dx); Chronic diastolic congestive heart failure (HCC); Essential hypertension, benign; Pulmonary HTN (HCC); Morbid obesity with BMI of 40.0-44.9, adult (HCC) Start: 03-31-2024 End: 04-01-2024 ambulatory Belkys Mcintyre FITNESS CONSULTANT.MINERALOGY PROFESSOR Work Phone: [facility] [place] Comment on above: Xarelto Start: 03-29-2024 End: 03-29-2024 [facility] Comment on above: Falls frequently (Pr imary Dx); Frequent falls Start: 03-24-2024 End: 03-25-2024 Refill Anuj Navarro MD Work Phone: Cardiology Comment on above: Refill Request Start: 03-09-2024 End: 03-09-2024 Subsequent hospital visit by physician Xr [facility] [place] Work Phone: Radiology Comment on above: Low back pain, unspe cified back pain laterality, unspecified chronicity, unspecified whether sciatica present [M54.50] Start: 03-09-2024 End: 03-09-2024 ambulatory [facility] Facility:[facility] Start: 03-09-2024 End: 03-09-2024 Office outpatient visit 25 minutes Belkys Mcintyre FITNESS CONSULTANT.MINERALOGY PROFESSOR Work Phone: [facility] [place] Comment on above: Low back pain, unspe cified back pain laterality, unspecified chronicity, unspecified whether sciatica present (Primary Dx); DDD (degenerative disc disease), thoracic; Tremor; Falls frequently Start: 12-26-2023 End: 12-26-2023 Telephone encounter Chip Arreola MD Work Phone: [facility] [place] Comment on above: Patient Question Start: 11-27-2023 End: 11-27-2023 ambulatory CHIP ARREOLA Facility:[facility] Start: 11-27-2023 End: 11-27-2023 Patient encounter procedure Belkys Shaji Jessica TINEO Work Phone: [facility] [place] Comment on above: Essential tremor (Pr imary Dx); Encounter for screening examination for other mental health and behavioral disorders; Screening for depression; Persistent atrial fibrillation (HCC); Malignant neoplasm of overlapping sites of left breast in female, estrogen receptor positive (HCC); Type 2 diabetes mellitus with diabetic chronic kidney disease, unspecified CKD stage, unspecified whether senior living insulin use (HCC); Obstructive sleep apnea syndrome; Essential hypertension, benign Start: 11-13-2023 Documentation procedure Mammog garima Coordinator [facility] Department Start: 11-13-2023 Letter encounter Mammography Coordinator [facility] Start: 11-12-2023 End: 11-12-2023 ambulatory CHIP Ronald ARREOLA Facility:[facility] Start: 11-12-2023 End: 11-12-2023 Subsequent hospital visit by physician Screen Mammo [facility] Start: 11-03-2023 ambulatory [facility] Comment on above: Screening mammogram Start: 10-31-2023 End: 10-31-2023 ambulatory CHIP ARREOLA Facility:[facility] Start: 10-31-2023 End: 10-31-2023 Patient encounter procedure Abiola Weaver MD Work Phone: Ophthalmology Comment on above: Intermediate stage n 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; Pseudophakia; Posterior vitreous detachment of both eyes Start: 08-25-2023 End: 08-25-2023 Patient encounter procedure Anuj Navarro MD Work Phone: Cardiology Comment on above: Persistent atrial fi brillation (HCC) (Primary Dx); Chronic diastolic congestive heart failure (HCC); H/O mitral valve disease; Essential hypertension, benign; Pulmonary HTN (HCC); Morbid obesity with BMI of 40.0-44.9, adult (HCC) Start: 06-27-2023 Refill Chip Arreola MD Work Phone: [facility] Comment on above: Refill Request Start: 06-18-2023 Telephone encounter Chip Arreola MD Work Phone: [facility] Comment on above: Results Start: 03-12-2023 End: 03-12-2023 ambulatory [facility] Work Phone: Start: 03-12-2023 End: 03-12-2023 Patient encounter procedure [facility] Work Phone: Start: 03-12-2023 End: 03-12-2023 Subsequent hospital visit by physician Xr [facility] Work Phone: Radiology Comment on above: Pain of left lower e xtremity [M79.605] Start: 03-12-2023 End: 03-12-2023 Patient encounter procedure Chip Arreola MD Work Phone: [facility] Comment on above: Pain of left lower e xtremity (Primary Dx); Persistent atrial fibrillation (HCC); Essential hypertension, benign; Pulmonary HTN (HCC) Start: 03-05-2023 Refill Anuj gardner MD Work Phone: Cardiology Comment on above: Refill Request Start: 02-24-2023 End: 02-24-2023 Patient encounter procedure Anuj Navarro MD Work Phone: Cardiology Comment on above: Persistent atrial fi brillation (HCC) (Primary Dx); Chronic diastolic congestive heart failure (HCC); Pulmonary HTN (HCC); Essential hypertension, benign; H/O mitral valve disease Start: 11-08-2022 End: 11-08-2022 Subsequent hospital visit by physician Screen Mammo [facility] Comment on above: Screening breast exa mination [Z12.39] Start: 05-22-2022 Telephone encounter Marybeth porter APRN.CNP Work Phone: [facility] Comment on above: Results Start: 05-16-2022 End: 05-16-2022 Subsequent hospital visit by physician [facility] Comment on above: Pain in joint of rig ht shoulder [M25.511] Start: 05-14-2022 Orders Only Dayanna ruffin MD Work Phone: Orthopedics Comment on above: Pain in joint of rig ht shoulder (Primary Dx) Start: 04-15-2022 End: 04-15-2022 Patient encounter procedure Chip Arreola MD Work Phone: [facility] [place] Comment on above: Type 2 diabetes rip itus with diabetic chronic kidney disease (HCC) (Primary Dx); Morbid obesity with BMI of 40.0-44.9, adult (HCC); Type 2 diabetes mellitus without complication, without long-term current use of insulin (HCC); Chronic diastolic congestive heart failure (HCC); Pulmonary HTN (HCC); Persistent atrial fibrillation (HCC); Essential tremor; Essential hypertension, benign; Obstructive sleep apnea syndrome; Stage 3 chronic kidney disease, unspecified whether stage 3a or 3b CKD (HCC); Malignant neoplasm of left breast in female, estrogen receptor positive, 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 (HCC); FPC current use of anticoagulant therapy; Hypokalemia; Type 2 diabetes mellitus with diabetic chronic kidney disease, unspecified CKD stage, unspecified whether terminal operations manager insulin use (HCC) Start: 04-14-2022 End: 04-14-2022 ambulatory GINGER FLORES [facility] Start: 04-14-2022 End: 04-14-2022 Office outpatient new 45 minutes Ginger LANDON-C Work Phone: [facility] Comment on above: Cellulitis of left l ower extremity (Primary Dx) Start: 03-25-2022 End: 03-25-2022 Patient encounter procedure Anuj Navarro MD Work Phone: Cardiology Comment on above: Persistent atrial fi brillation (HCC) (Primary Dx); Essential hypertension, benign; Chronic diastolic congestive heart failure (HCC); Pulmonary HTN (HCC); Paroxysmal atrial fibrillation (HCC) Start: 03-15-2022 ambulatory Mathew wharton PA-C Work Phone: [facility] [place] Comment on above: Sinus infection Start: 01-21-2022 End: 01-21-2022 Patient encounter procedure Donald Massey MD Work Phone: Orthopaedics Comment on above: De Quervain's tenosy novitis (Primary Dx); Right wrist pain Start: 12-24-2021 End: 12-24-2021 Patient encounter procedure Chip Arreola MD Work Phone: [facility] Comment on above: Essential hypertensi on, benign (Primary Dx); Type 2 diabetes mellitus without complication, without long-term current use of insulin (HCC); Malignant neoplasm of left breast in female, estrogen receptor positive, 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 (HCC); Stage 3 chronic kidney disease, unspecified whether stage 3a or 3b CKD (HCC) Start: 12-06-2021 End: 12-06-2021 Patient encounter procedure Donald Massey MD Work Phone: Orthopaedics Comment on above: Closed fracture of r ight wrist with routine healing, subsequent encounter (Primary Dx); Other closed intra-articular fracture of distal end of right radius, initial encounter Start: 12-06-2021 End: 12-06-2021 Subsequent hospital visit by physician Xr [facility] [place] Work Phone: Radiology Comment on above: Other closed intra-a rticular fracture of distal end of right radius, initial encounter [S52.570R] Start: 12-04-2021 ambulatory Donald Massey MD Work Phone: Orthopaedics Comment on above: Wrist Start: 10-29-2021 Telephone encounter Chip Arreola MD Work Phone: [facility] Comment on above: Results Start: 10-26-2021 ambulatory Anuj gardner MD Work Phone: [facility] Start: 10-26-2021 Follow-up encounter Anuj Navarro MD Work Phone: Cardiology Comment on above: appointment follow u p Start: 10-26-2021 End: 10-26-2021 Subsequent hospital visit by physician Screen Mammo [facility] Comment on above: Malignant neoplasm o f left breast in female, estrogen receptor positive, 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 (HCC) [C50.912, Z17.0] Start: 10-25-2021 End: 10-25-2021 Patient encounter procedure Chip Arreola MD Work Phone: [facility] Comment on above: Malignant neoplasm o f left breast in female, estrogen receptor positive, 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 (HCC) (Primary Dx); Paroxysmal atrial fibrillation (HCC); Essential hypertension, benign; Pulmonary HTN (HCC); Chronic diastolic congestive heart failure (HCC); Type 2 diabetes mellitus without complication, without long-term current use of insulin (HCC) Start: 10-16-2021 Refill Chip Arreola MD Work Phone: [facility] Comment on above: Refill Request Start: 09-10-2021 End: 09-10-2021 Patient encounter procedure Karlene Troncoso PA-C Work Phone: Orthopaedics Comment on above: Other closed intra-a rticular fracture of distal end of right radius, initial encounter (Primary Dx) Start: 09-10-2021 End: 09-10-2021 Subsequent hospital visit by physician Jl [facility] [place] Work Phone: Radiology Comment on above: Other closed intra-a rticular fracture of distal end of right radius, initial encounter [S52.571A] Start: 08-27-2021 ambulatory Nj Fischer Work Phone: Orthopaedics Comment on above: Appt on August 30 Start: 08-27-2021 End: 08-27-2021 Patient encounter procedure Donald Massey MD Work Phone: Orthopaedics Comment on above: Other closed intra-a rticular fracture of distal end of right radius, initial encounter (Primary Dx) Start: 08-22-2021 End: 08-22-2021 Subsequent hospital visit by physician Jl [facility] [place] Work Phone: Radiology Comment on above: Acute pain of right wrist [M25.531] Start: 08-22-2021 End: 08-22-2021 Patient encounter procedure Jaleel Cerda MD Work Phone: [facility] Comment on above: Other closed intra-a rticular fracture of distal end of right radius, initial encounter (Primary Dx); Acute pain of right wrist Start: 08-20-2021 Orders Only Martin Mary FITNESS CONSULTANT.MINERALOGY PROFESSOR Work Phone: Orthopaedics Comment on above: Pain in right hip (P rimary Dx) Start: 07-02-2021 ambulatory M Ramakrishna Velazquez on PA-C Work Phone: [facility] [place] Comment on above: Handicap placard Start: 03-04-2020 End: 03-04-2020 Subsequent hospital visit by physician Xr [facility] [place] Work Phone: Radiology Comment on above: Acute pain of left k nee [M25.562] Start: 03-05-2018 End: 03-05-2018 Patient encounter procedure Other Other NOTES/RESULTS Start: 03-02-2018 End: 03-02-2018 Patient encounter procedure Chip Carter Work Phone: Division of Surgical Oncology Start: 02-12-2018 End: 02-12-2018 Patient encounter procedure Other Other NOTES/RESULTS Start: 02-11-2018 End: 02-11-2018 Patient encounter procedure Other Other NOTES/RESULTS Start: 01-23-2018 End: 01-23-2018 Patient encounter procedure Other Other NOTES/RESULTS Procedures Date Procedure Procedure Detail Performing Clinician Start: 10-11-2024 X-ray of chest, PA a nd lateral views Dr. Chip Arreola MD Work Phone: Start: 10-11-[address] Chip Arreola MD Work Phone: Start: 10-07-2024 Arthrocentesis aspir &/inj major jt/bursa w/o us Dominga Reese PA-C Work Phone: Start: 06-24-2024 Arthrocentesis aspir &/inj major jt/bursa w/o us Dayanna Lewis MD Work Phone: Start: 11-27-2023 Adult depression scr eening assessment Belkys Mcintyre FITNESS CONSULTANT.MINERALOGY PROFESSOR Work Phone: Start: 10-31-2023 End: 10-31-2023 Computerized ophthalmic imaging retina Abiola Weaver MD Work Phone: Start: 03-12-2023 Radex ankle complete minimum 3 views Chip Arreola MD Work Phone: Start: 11-08-2022 Screening mammograph y [facility] cad Chip Arreola MD Work Phone: Start: 05-16-2022 Radex shoulder compl ete minimum 2 views Dominga Veena Oleae PA-C Work Phone: Start: 10-26-2021 Screening mammograph y bi 2-view breast inc cad Chip Arreola MD Work Phone: Start: 10-18-2021 Adult depression scr eening assessment Chip Arreola MD Work Phone: Start: 09-10-2021 Radex wrist complete minimum 3 views Donald Massey MD Work Phone: Start: 08-22-2021 Radex wrist complete minimum 3 views Jaleel Cerda MD Work Phone: Start: 06-17-2020 Adult depression scr eening assessment NA Marino PA-C Work Phone: Start: 03-04-2020 Radiologic exam knee complete 4/more views Blossom Lange APRN.CNP Work Phone: Start: 02-12-2018 End: 02-12-2018 OUTSIDE PATHOLOGY REPORTS Other Other Start: 02-12-2018 End: 02-12-2018 ULTRASOUND (OUTSIDE) Other Other Start: 02-11-2018 End: 02-11-2018 MG Breast Views Other Other Start: 02-11-2018 End: 02-11-2018 ULTRASOUND (OUTSIDE) Other Other Start: 01-23-2018 End: 01-23-2018 MG Breast Views Other Other Plan of Treatment Date Care Activity Detail Author Start: 10-04-2025 Annual PCP Team Chronic Disease Visit Annual PCP Team Chronic Disease Visit [facility] Start: 10-04-2025 Creatinine measurement Serum Creatinine [facility] Start: 05-27-2025 Annual PCP Team Chronic Disease Visit Annual PCP Team Chronic Disease Visit [facility] Start: 05-27-2025 Creatinine measurement Serum Creatinine [facility] Start: 05-27-2025 Hepatitis B screening Urine Albumin:Creatinine Ratio [facility] Start: 05-27-2025 Hepatitis B surface antibody level LDL Cholesterol [facility] Start: 04-19-2025 Annual PCP Team Chronic Disease Visit Annual PCP Team Chronic Disease Visit [facility] Start: 2025 End: 2025 Patient encounter procedure 2025 8:40 AM EST Office Visit [facility] [place] [address] [place], [place] [phone] Belkys Mcintyre APRN.MINERALOGY PROFESSOR [address] [place] [phone] 6 month exam [facility] [place] Comment on above: 6 month exam Start: 03-09-2025 BP Controlled (<130/80) BP Controlled (<130/80) [facility] Start: 03-09-2025 Covid-19 Vaccine ( season) Covid-19 Vaccine () [facility] Comment on above: Postponed from 12/07/2023 (Declined at t his time) Start: 01-05-2025 Covid-19 Vaccine ( season) Covid-19 Vaccine () [facility] Comment on above: Postponed from 12/06/2022 (Postponed To Appropriate Date) Start: 12-15-2024 End: 12-15-2024 Patient encounter procedure 12/15/2024 4:00 PM EDT Office Visit Endocrinology [address] [place] [id number] Micha Umanzor MD [address] [place] [id number] Elevated parathyroid hormone with normal calcium. Checked twice 6 months apart, parathyroid hormone lev Endocrinology Comment on above: Elevated parathyroid hormone with normal calcium. Checked twice 6 months apart, parathyroid hormone lev Start: 12-13-2024 End: 12-13-2024 Patient encounter procedure Cardiology Comment on above: 6 month follow up Start: 11-26-2024 Anxiety Screening Anxiety Screening [facility] Start: 11-26-2024 BP Controlled (<130/80) BP Controlled (<130/80) [facility] Start: 11-26-2024 Depression Screening Depression Screening [facility] Start: 11-26-2024 Pneumococcal Vaccine: 50+ (1 of 2 - PCV) Pneumococcal Vaccine: 50+ (1 of 2 - PCV) [facility] Comment on above: Postponed from 1963 (Declined at t his time) Start: 11-26-2024 Pneumococcal Vaccine: 65+ (1 of 2 - PCV) Pneumococcal Vaccine: 65+ (1 of 2 - PCV) [facility] Comment on above: Postponed from 1950 (Declined at t his time) Start: 11-26-2024 RSV Vaccine (1 - 1-dose 60+ series) RSV Vaccine (1 - 1-dose 60+ series) [facility] Comment on above: Postponed from 2004 (Declined at t his time) Start: 11-26-2024 RSV Vaccine (1 - 1-dose 75+ series) RSV Vaccine (1 - 1-dose 75+ series) [facility] Comment on above: Postponed from 2019 (Declined at t his time) Start: 11-26-2024 Shingrix Vaccine (1 of 2) Shingrix Vaccine (1 of 2) [facility] Comment on above: Postponed from 1994 (Declined at t his time) Start: 11-26-2024 Urine microalbumin profile DTaP,Tdap,Td Vaccine (1 - Tdap) [facility] Comment on above: Postponed from 1963 (Postponed - N ot Clinically Indicated) Start: 11-24-2024 [facility] A[facility] Start: 11-15-2024 End: 11-15-2024 Patient encounter procedure 11/15/2024 9:10 AM EDT Appointment Mammogram [address] [place] [address] : Malignant neoplasm of left breast in female, estrogen receptor positive, 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 (HCC) [C50.912, Z17.0 Mammogram Comment on above: : Malignant neoplasm of left breast in f emale, estrogen receptor positive, 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 (HCC) [C50.912, Z17.0 Start: 11-14-2024 End: 04-23-2025 FUNDUS AUTOFLUORESCENCE PHOTO (FAF) OU (BOTH EYES) FUNDUS AUTOFLUORESCENCE PHOTO (FAF) OU (BOTH EYES) [facility] Imaging Routine Intermediate stage n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 Posterior vitreous detachment of both eyes Expected: 11/14/2024, Expires: 04/23/2025 [facility] Comment on above: Expected: 11/14/2024, Expires: Start: 11-14-2024 End: 04-23-2025 OCT MACULA CIRRUS OU (BOTH EYES) OCT MACULA CIRRUS OU (BOTH EYES) [facility] Imaging Routine Intermediate stage n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 Posterior vitreous detachment of both eyes Expected: 11/14/2024, Expires: 04/23/2025 [facility] Work Phone: Comment on above: Expected: 11/14/2024, Expires: Start: 10-30-2024 Glaucoma screening Dilated Retinal Exam [facility] Start: 10-18-2024 Diabetic foot examination Diabetic Foot Exam [facility] Comment on above: Postponed from 08/22/2023 (Postponed - N ot Clinically Indicated) Start: 10-12-2024 Thyroid stimulating hormone measurement [facility] Start: 10-11-2024 Following clinical pathway protocol [facility] Start: 10-11-2024 End: 10-11-2024 [facility] Start: 10-11-2024 Assessment of risk of venous thromboembolism [facility] Start: 10-11-2024 Electrocardiographic procedure [facility] Start: 10-11-2024 Insertion of catheter into peripheral vein [facility] Start: 10-11-2024 Measuring intake and output [facility] Start: 10-11-2024 Oxygen therapy [facility] Start: 10-11-2024 Providing care according to standard [facility] Start: 10-11-2024 Provision of activity privileges [facility] Start: 10-11-2024 Referral to sliver lap tender [facility] Start: 10-11-2024 Tobacco use cessation education [facility] Start: 10-11-2024 Verification routine [facility] Start: 10-11-2024 Admission procedure [facility] Start: 10-11-2024 [facility] Start: 10-07-2024 End: 10-07-2024 Patient encounter procedure 10/07/2024 8:40 AM EDT Office Visit Orthopaedics [address] [address] Dominga Reese PA-C [address] [address] B/L SHOULDER INJECTION Orthopaedics Comment on above: B/L SHOULDER INJECTION Start: 10-04-2024 End: 10-04-2024 Patient encounter procedure 10/04/2024 10:20 AM EDT Office Visit [facility] [place] [address] [place], [place] [phone] Beklys Mcintyre APRN.MINERALOGY PROFESSOR [address] [place] [address] Need for blood work. [facility] [place] Comment on above: Need for blood work. Start: 07-13-2024 End: 07-13-2024 ambulatory 07/13/2024 9:00 AM EDT OT/PT/Speech Visit [facility] [address] [place], [place] [phone] Blossom White, PT Falls frequently [R29.6] [facility] Comment on above: Falls frequently [R29.6] Start: 07-09-2024 End: 07-09-2024 Patient encounter procedure 07/09/2024 2:30 PM EDT Office Visit [facility] Ophthalmology [address] [address] Abiola Weaver MD [address] [place] [address] Return in about 6 months (around 05/02/2024). Ophthalmology Comment on above: Return in about 6 months (around 05/02/19). Start: 07-06-2024 End: 07-06-2024 ambulatory 07/06/2024 9:00 AM EDT OT/PT/Speech Visit [facility] [address] [place] [address] O'Oleg Blossom, PT Falls frequently [R29.6] [facility] Comment on above: Falls frequently [R29.6] Start: 07-02-2024 Creatinine measurement Serum Creatinine [facility] Start: 07-02-2024 End: 07-02-2024 Patient encounter procedure 07/02/2024 1:00 PM EDT Office Visit [facility] Ophthalmology [address] [address] Abiola Weaver MD [address] [place], [place] [phone] Return in about 6 months (around 05/02/2024). Ophthalmology Comment on above: Return in about 6 months (around 05/02/19). Start: 06-29-2024 End: 06-29-2024 ambulatory 06/29/2024 9:00 AM EDT OT/PT/Speech Visit [facility] [address] [place] [address] O'Oleg, Blossom, PT Falls frequently [R29.6] [facility] Comment on above: Falls frequently [R29.6] Start: 06-24-2024 End: 06-24-2024 Patient encounter procedure 06/24/2024 8:30 AM EDT Office Visit Orthopaedics [address] [address] Dayanna Lewis MD [address] [place], [place] [phone] Right shoulder follow up Orthopaedics Comment on above: Right shoulder follow up Start: 06-22-2024 End: 06-22-2024 ambulatory 06/22/2024 9:00 AM EDT OT/PT/Speech Visit [facility] [address] [address] O'Oleg Blossom, PT Falls frequently [R29.6] [facility] Comment on above: Falls frequently [R29.6] Start: 06-17-2024 Creatinine measurement Serum Creatinine [facility] Start: 06-17-2024 Hepatitis B screening Urine Albumin:Creatinine Ratio [facility] Start: 06-17-2024 Hepatitis B surface antibody level LDL Cholesterol [facility] Start: 06-15-2024 End: 06-15-2024 ambulatory 06/15/2024 9:00 AM EDT OT/PT/Speech Visit [facility] [address] [place] [address] O'Blossom Dejesus, PT Falls frequently [R29.6] [facility] Comment on above: Falls frequently [R29.6] Start: 06-07-2024 End: 06-07-2024 ambulatory 06/07/2024 10:15 AM EST OT/PT/Speech Visit [facility] [address] [place] [address] O'OlegBlossom gonzalez, PT Falls frequently [R29.6] [facility] Comment on above: Falls frequently [R29.6] Start: 06-07-2024 End: 06-07-2024 Patient encounter procedure [facility] [place] Comment on above: 6 month f/u Start: 05-27-2024 End: 08-26-2024 CBC W Auto Differential panel - Blood [facility] Comment on above: Expected: 05/27/2024, Expires: Start: 05-27-2024 End: 08-26-2024 Cobalamin (Vitamin B12) [Mass/volume] in Serum or Plasma [facility] Comment on above: Expected: 05/27/2024, Expires: Start: 05-27-2024 End: 08-26-2024 Comprehensive metabolic 2000 panel - Serum or Plasma [facility] Comment on above: Expected: 05/27/2024, Expires: Start: 05-27-2024 End: 08-26-2024 Hemoglobin A1c in Blood [facility] Comment on above: Expected: 05/27/2024, Expires: Start: 05-27-2024 End: 08-26-2024 LIPID PANEL, NONFASTING [facility] Comment on above: Expected: 05/27/2024, Expires: Start: 05-27-2024 End: 08-26-2024 Magnesium [Mass/volume] in Serum or Plasma [facility] Comment on above: Expected: 05/27/2024, Expires: Start: 05-27-2024 End: 08-26-2024 Microalbumin/Creatinine [Mass Ratio] in Urine [facility] Comment on above: Expected: 05/27/2024, Expires: Start: 05-27-2024 End: 08-26-2024 Thyrotropin [Units/volume] in Serum or Plasma [facility] Comment on above: Expected: 05/27/2024, Expires: Start: 05-27-2024 End: 05-27-2024 Patient encounter procedure 05/27/2024 8:40 AM EST Office Visit [facility] [place] [address] [place] [address] Belkys Mcintyre APRN.MINERALOGY PROFESSOR [address] [place] [address] Fell while exiting vehicle (05/24/24 MyChart Message) [facility] [place] Comment on above: Fell while exiting vehicle (05/24/24 MyCh art Message) Start: 05-26-2024 End: 05-26-2024 ambulatory 05/26/2024 5:15 PM EST OT/PT/Speech Visit [facility] [address] [place] [address] Blossom White, PT R29.6 (ICD-10-CM) - Falls frequently [facility] Comment on above: R29.6 (ICD-10-CM) - Falls frequently Start: 05-24-2024 End: 05-24-2024 ambulatory 05/24/2024 9:30 AM EST OT/PT/Speech Visit [facility] [address] [place] [address] Blossom White, PT R29.6 (ICD-10-CM) - Falls frequently [facility] Comment on above: R29.6 (ICD-10-CM) - Falls frequently Start: 05-20-2024 End: 05-20-2024 ambulatory 05/20/2024 8:45 AM EST OT/PT/Speech Visit [facility] [address] [place] [address] Blossom White, PT R29.6 (ICD-10-CM) - Falls frequently [facility] Comment on above: R29.6 (ICD-10-CM) - Falls frequently Start: 05-10-2024 End: 05-10-2024 ambulatory 05/10/2024 9:30 AM EST OT/PT/Speech Visit [facility] [address] [place] [address] [facility] [employer] [facility] [address] [place] [address] R29.6 (ICD-10-CM) - Falls frequently [facility] Comment on above: R29.6 (ICD-10-CM) - Falls frequently Start: 05-07-2024 End: 05-07-2024 ambulatory 05/07/2024 10:00 AM EST OT/PT/Speech Visit [facility] [address] [place] [address] Blossom White, PT R29.6 (ICD-10-CM) - Falls frequently [facility] Comment on above: R29.6 (ICD-10-CM) - Falls frequently Start: 05-03-2024 End: 05-03-2024 ambulatory 05/03/2024 8:45 AM EST OT/PT/Speech Visit [facility] [address] [place] [address] Blossom White, PT R29.6 (ICD-10-CM) - Falls frequently [facility] Comment on above: R29.6 (ICD-10-CM) - Falls frequently Start: 05-02-2024 Glaucoma screening Dilated Retinal Exam [facility] Start: 04-30-2024 End: 04-30-2024 ambulatory 04/30/2024 10:15 AM EST OT/PT/Speech Visit [facility] [address] [place] [address] Tanya Meza, CIRCULATION MAN [address] [place] [address] R29.6 (ICD-10-CM) - Falls frequently [facility] Comment on above: R29.6 (ICD-10-CM) - Falls frequently Start: 04-26-2024 End: 04-26-2024 ambulatory 04/26/2024 1:15 PM EST OT/PT/Speech Visit [facility] [address] [place] [address] O'Blossom Dejesus, PT R29.6 (ICD-10-CM) - Falls frequently [facility] Comment on above: R29.6 (ICD-10-CM) - Falls frequently Start: 04-22-2024 End: 04-22-2024 ambulatory 04/22/2024 8:45 AM EST OT/PT/Speech Visit [facility] [address] [place] [address] O'Blossom Dejesus, PT R29.6 (ICD-10-CM) - Falls frequently [facility] Comment on above: R29.6 (ICD-10-CM) - Falls frequently Start: 04-19-2024 End: 04-19-2024 ambulatory 04/19/2024 8:45 AM EST OT/PT/Speech Visit [facility] [address] [place] [address] O'Blossom Dejesus, PT R29.6 (ICD-10-CM) - Falls frequently [facility] Comment on above: R29.6 (ICD-10-CM) - Falls frequently Start: 04-14-2024 End: 04-14-2024 ambulatory 04/14/2024 9:45 AM EST OT/PT/Speech Visit [facility] [address] [place] [address] Blossom White PT R29.6 (ICD-10-CM) - Falls frequently [facility] Comment on above: R29.6 (ICD-10-CM) - Falls frequently Start: 04-07-2024 Medicare [facility] Annual Wellness Visit Medicare [facility] Annual Wellness Visit [facility] Start: 04-05-2024 End: 04-05-2024 Patient encounter procedure 04/05/2024 2:40 PM EST Office Visit Cardiology [address] [place] [address] Anuj Navarro MD [address] [address] [place] [address] 6 month follow up Cardiology Comment on above: 6 month follow up Start: 03-29-2024 End: 03-29-2024 ambulatory 03/29/2024 11:00 AM EST OT/PT/Speech Visit [facility] [address] [place] [address] Blossom White, PT Falls frequently [R29.6] [facility] Comment on above: Falls frequently [R29.6] Start: 03-12-2024 Annual PCP Team Chronic Disease Visit Annual PCP Team Chronic Disease Visit [facility] Start: 03-12-2024 BP Controlled (<130/80) BP Controlled (<130/80) [facility] Start: 02-13-2024 Hepatitis C antibody, confirmatory test Dilated Retinal Exam [facility] Start: 12-19-2023 Hemoglobin A1c measurement HbA1C [facility] Start: 12-07-2023 Covid-19 Vaccine ( season) Covid-19 Vaccine ( season) [facility] Start: 12-07-2023 Covid-19 Vaccine ( season) Covid-19 Vaccine () [facility] Start: 10-31-2023 End: 10-31-2023 Patient encounter procedure 10/31/2023 12:30 PM EDT Office Visit [facility] Op[facility] [address] [address] Abiola [place] MD [address] [place], [place] [phone] Return in about 6 months (around 10/31/2023). Ophthalmology Comment on above: Return in about 6 months (around 10/31/19 24). Start: 10-17-2023 Annual PCP Team Chronic Disease Visit Annual PCP Team Chronic Disease Visit [facility] Start: 10-17-2023 Hepatitis C Screening Hepatitis C Screening [facility] Comment on above: Postponed from 1962 (Declined at t his time) Start: 10-17-2023 Urine microalbumin profile DTaP,Tdap,Td Vaccine (1 - Tdap) [facility] Comment on above: Postponed from 1963 (Declined at t his time) Start: 10-11-2023 Serum Creatinine Serum Creatinine [facility] Start: 08-22-2023 3 comp foot exam completed Diabetic Foot Exam [facility] Start: 08-22-2023 Diabetic foot examination Diabetic Foot Exam [facility] Start: 07-07-2023 End: 02-25-2024 Echocardiography ECHO Cardiology Routine Persistent atrial fibrillation (HCC) H/O mitral valve disease Expected: 07/07/2023, Expires: 02/25/2024 [facility] Work Phone: Comment on above: Expected: 07/07/2023, Expires: 4 Start: 06-19-2023 End: 09-18-2023 Basic metabolic 2000 panel - Serum or Plasma BASIC METABOLIC PNL Lab Routine Hypokalemia Expected: 06/19/2023, Expires: 09/18/2023 [facility] Work Phone: Comment on above: Expected: 06/19/2023, Expires: Start: 04-15-2023 ANNUAL PCP TEAM CHRONIC DISEASE VISIT ANNUAL PCP TEAM CHRONIC DISEASE VISIT [facility] Start: 04-12-2023 Hemoglobin A1c/Hemoglobin.total in Blood HbA1C [facility] Start: 04-12-2023 Hepatitis B surface antibody level LDL CHOLESTEROL [facility] Start: 04-12-2023 SERUM CREATININE SERUM CREATININE [facility] Start: 04-07-2023 Advance Directive Discussion Advance Directive Discussion [facility] Start: 04-07-2023 Behavioral Health Screening Behavioral Health Screening [facility] Start: 04-07-2023 Depression Assessment Depression Assessment [facility] Start: 03-15-2023 ANNUAL PCP TEAM CHRONIC DISEASE VISIT ANNUAL PCP TEAM CHRONIC DISEASE VISIT [facility] Start: 12-24-2022 ANNUAL PCP TEAM CHRONIC DISEASE VISIT ANNUAL PCP TEAM CHRONIC DISEASE VISIT [facility] Start: 12-06-2022 Covid-19 Vaccine () Covid-19 Vaccine () [facility] Start: 10-27-2022 HEMOGLOBIN/HEMATOCRIT HEMOGLOBIN/HEMATOCRIT [facility] Start: 10-27-2022 Hepatitis B screening URINE ALBUMIN:CREATININE RATIO [facility] Start: 10-27-2022 SERUM CREATININE SERUM CREATININE [facility] Start: 10-25-2022 3 comp foot exam completed DIABETIC FOOT EXAM [facility] Start: 10-25-2022 ANNUAL PCP TEAM CHRONIC DISEASE VISIT ANNUAL PCP TEAM CHRONIC DISEASE VISIT [facility] Start: 10-25-2022 BP CONTROLLED (<130/80) BP CONTROLLED (<130/80) [facility] Start: 10-25-2022 COVID-19 VACCINE (#1) COVID-19 VACCINE (#1) [facility] Comment on above: Postponed from 1944 (Declined at t his time) Start: 10-25-2022 PNEUMOCOCCAL: 65+ (1 - PCV) PNEUMOCOCCAL: 65+ (1 - PCV) [facility] Comment on above: Postponed from 1950 (Declined at t his time) Start: 10-25-2022 SHINGRIX VACCINE (1 of 2) SHINGRIX VACCINE (1 of 2) [facility] Comment on above: Postponed from 1994 (Declined at t his time) Start: 10-18-2022 Adult depression screening assessment DEPRESSION SCREENING [facility] Start: 10-13-2022 End: 12-13-2022 Basic metabolic 2000 panel - Serum or Plasma BASIC METABOLIC PNL Lab Routine Stage 3 chronic kidney disease, unspecified whether stage 3a or 3b CKD (HCC) Expected: 10/13/2022, Expires: 12/13/2022 [facility] Work Phone: Comment on above: Expected: 10/13/2022, Expires: 3 Start: 10-13-2022 End: 12-13-2022 CBC panel - Blood by Automated count CBC Lab Routine Persistent atrial fibrillation (HCC) Stage 3 chronic kidney disease, unspecified whether stage 3a or 3b CKD (HCC) Expected: 10/13/2022, Expires: 12/13/2022 [facility] Work Phone: Comment on above: Expected: 10/13/2022, Expires: Start: 10-13-2022 End: 12-13-2022 Hemoglobin A1c in Blood HGB A1C Lab Routine Type 2 diabetes mellitus without complication, without long-term current use of insulin (HCC) Type 2 diabetes mellitus with diabetic chronic kidney disease (HCC) Expected: 10/13/2022, Expires: 12/13/2022 [facility] Work Phone: Comment on above: Expected: 10/13/2022, Expires: 3 Start: 10-10-2022 Hemoglobin A1c measurement A1C [facility] Start: 10-10-2022 Hemoglobin A1c/Hemoglobin.total in Blood HBA1C [facility] Start: 05-21-2022 Hepatitis B screening URINE ALBUMIN:CREATININE RATIO [facility] Start: 05-21-2022 Hepatitis B surface antibody level LDL CHOLESTEROL [facility] Start: 04-29-2022 Hemoglobin A1c/Hemoglobin.total in Blood HBA1C [facility] Start: 04-27-2022 ANNUAL PCP TEAM CHRONIC DISEASE VISIT ANNUAL PCP TEAM CHRONIC DISEASE VISIT [facility] Start: 04-27-2022 End: 06-27-2022 Hemoglobin A1c in Blood HGB A1C Lab Routine Type 2 diabetes mellitus without complication, without long-term current use of insulin (HCC) Expected: 04/27/2022, Expires: 06/27/2022 [facility] Work Phone: Comment on above: Expected: 04/27/2022, Expires: 3 Start: 04-27-2022 Urine microalbumin profile DTAP,TDAP,TD (1 - Tdap) [facility] Comment on above: Postponed from 1963 (Declined at t his time) Start: 04-15-2022 End: 06-15-2022 POTASSIUM BLD POTASSIUM BLD Lab Routine Hypokalemia Expected: 04/15/2022, Expires: 06/15/2022 [facility] Work Phone: Comment on above: Expected: 04/15/2022, Expires: 3 Start: 04-07-2022 End: 12-24-2022 CBC W Auto Differential panel - Blood CBC + DIFF Lab Routine Essential hypertension, benign Expected: 04/07/2022, Expires: 12/24/2022 [facility] Work Phone: Comment on above: Expected: 04/07/2022, Expires: 3 Start: 04-07-2022 End: 12-24-2022 Comprehensive metabolic 2000 panel - Serum or Plasma COMP METABOLIC PANEL Lab Routine Essential hypertension, benign Expected: 04/07/2022, Expires: 12/24/2022 [facility] Work Phone: Comment on above: Expected: 04/07/2022, Expires: 3 Start: 04-07-2022 End: 06-07-2022 Hemoglobin A1c in Blood HGB A1C Lab Routine Type 2 diabetes mellitus without complication, without long-term current use of insulin (HCC) Expected: 04/07/2022, Expires: 06/07/2022 [facility] Work Phone: Comment on above: Expected: 04/07/2022, Expires: 3 Start: 04-07-2022 End: 12-24-2022 Lipid 1996 panel - Serum or Plasma LIPID PANEL BASIC Lab Routine Essential hypertension, benign Expected: 04/07/2022, Expires: 12/24/2022 [facility] Work Phone: Comment on above: Expected: 04/07/2022, Expires: 3 Start: 12-06-2021 Influenza vaccination Sequential Influenza Vaccine (#1) [facility] Start: 11-18-2021 Hemoglobin A1c/Hemoglobin.total in Blood HBA1C [facility] Start: 10-25-2021 End: 12-25-2021 ALBUMIN/CREAT RATIO RND UR ALBUMIN/CREAT RATIO RND UR Lab Routine Type 2 diabetes mellitus without complication, without long-term current use of insulin (HCC) Expected: 10/25/2021, Expires: 12/25/2021 [facility] Work Phone: Comment on above: Expected: 10/25/2021, Expires: 2 Start: 10-25-2021 End: 12-25-2021 Basic metabolic 2000 panel - Serum or Plasma BASIC METABOLIC PNL Lab Routine Type 2 diabetes mellitus without complication, without long-term current use of insulin (HCC) Expected: 10/25/2021, Expires: 12/25/2021 [facility] Work Phone: Comment on above: Expected: 10/25/2021, Expires: 2 Start: 10-25-2021 End: 12-25-2021 CBC W Auto Differential panel - Blood CBC + DIFF Lab Routine Type 2 diabetes mellitus without complication, without long-term current use of insulin (HCC) Expected: 10/25/2021, Expires: 12/25/2021 [facility] Work Phone: Comment on above: Expected: 10/25/2021, Expires: 2 Start: 09-22-2021 Hepatitis C antibody, confirmatory test DILATED RETINAL EXAM [facility] Start: 06-22-2021 3 comp foot exam [facility] Start: 06-17-2021 Adult depression screening assessment DEPRESSION SCREENING [facility] Start: 04-07-2021 ADVANCE DIRECTIVE DISCUSSION ADVANCE DIRECTIVE DISCUSSION [facility] Start: 04-07-2021 DEPRESSION ASSESSMENT DEPRESSION ASSESSMENT [facility] Start: 02-11-2019 Protein mass conc MAMMOGRAM SCREENING DISCUSSION [facility] Work Phone: Start: 03-25-2018 End: 03-25-2018 Ambulatory 03/25/2018 Office Visit [place] [address] [place] [id number] Department of Radiation Oncology Start: 03-05-2018 End: 03-05-2018 Ambulatory 03/05/2018 Office Visit Surgical Oncology Raul BARRON, Chip Mejia MD [address] [place] [address] Division of Surgical Oncology Start: 12-06-2017 Influenza vaccination INFLUENZA VACCINE (#1) [facility] Work Phone: Start: 2009 Fall risk assessment Falls Risk Assessment [facility] Start: 2009 Pneumococcal vaccination PNEUMOCOCCAL VACCINE SERIES (1 of 2 - PCV13) [facility] Work Phone: Start: 2009 Pneumococcal Vaccine: Age 65+ (1 - PCV) Pneumococcal Vaccine: Age 65+ (1 - PCV) [facility] Start: 2004 Hepatitis B Vaccine (1 of 3 - Risk 3-dose series) Hepatitis B Vaccine (1 of 3 - Risk 3-dose series) [facility] Start: 2004 RSV Vaccine (1 - 1-dose 60+ series) RSV Vaccine (1 - 1-dose 60+ series) [facility] Start: 1994 Administration of herpes zoster vaccine Zoster Vaccines (1 of 2) [facility] Start: 1994 Protein mass conc COLON CANCER SCREENING DISCUSSION [facility] Work Phone: Start: 1994 SHINGRIX VACCINE (1 of 2) SHINGRIX VACCINE (1 of 2) [facility] Start: 1984 Fasting lipid profile LIPID SCREENING [facility] Work Phone: Start: 1984 Screening for malignant neoplasm of breast Mammogram [facility] Start: 1965 Screening for malignant neoplasm of cervix PAP SMEAR DISCUSSION [facility] Work Phone: Start: 1963 SHINGRIX VACCINE (1 of 2) SHINGRIX VACCINE (1 of 2) [facility] Start: 1963 Third diphtheria, tetanus and acellular pertussis (DTaP) vaccination TDAP (ADULT) [facility] Work Phone: Start: 1963 Urine microalbumin profile [facility] Start: 1962 Anxiety Screening Anxiety Screening [facility] Start: 1962 BP CONTROLLED (<130/80) BP CONTROLLED (<130/80) [facility] Start: 1962 Depression Screening Depression Screening [facility] Start: 1962 HEPATITIS C SCREENING HEPATITIS C SCREENING [facility] Start: 1962 Hepatitis C screening Hepatitis C Screening [facility] Start: 1962 Tetanus vaccination TETANUS [facility] Work Phone: Start: 1956 Depression screening using PHQ-9 (Patient Health Questionnaire 9) score Depression Screening (PHQ-2/9) [facility] Start: 1954 Diabetic foot examination Foot Exam [facility] Start: 1954 Glaucoma screening Ophthalmology Exam [facility] Start: 1954 Urine screening for protein Urine Microalbumin [facility] Start: 1950 Pneumococcal Vaccine: 65+ (1 - PCV) Pneumococcal Vaccine: 65+ (1 - PCV) [facility] Start: 1950 Pneumococcal Vaccine: 65+ (1 of 2 - PCV) Pneumococcal Vaccine: 65+ (1 of 2 - PCV) [facility] Start: 1950 PNEUMOCOCCAL: 65+ (1 - PCV) PNEUMOCOCCAL: 65+ (1 - PCV) [facility] Start: 1949 COVID-19 VACCINE (#1) COVID-19 VACCINE (#1) [facility] Start: 1949 COVID-19 VACCINE (1) COVID-19 VACCINE (1) [facility] Start: 1947 History and physical examination, annual for health maintenance Wellness Visit [facility] Start: 1944 COVID-19 VACCINE (#1) COVID-19 VACCINE (#1) [facility] Start: 1944 End: 1944 Screening for osteoporosis [facility] Start: 1944 Tetanus vaccination Tetanus: Every 10yrs [facility] Anion gap in Serum o r Plasma [facility] BUN/Creatinine ratio [facility] Calcium [Mass/volume ] in Serum or Plasma [facility] Carbon dioxide, tota l [Moles/volume] in Central venous blood [facility] Cholesterol [Mass/vo lume] in Serum or Plasma [facility] Cholesterol in HDL [Mass/volume] in Serum or Plasma [facility] Creatinine [Mass/vol ume] in Serum or Plasma [facility] End: 11-12-2023 DBT Breast - bilateral screening [facility] Work Phone: Comment on above: ONCE for 1 Occurrences starting 11/12/19 until 11/12/2023 End: 11-03-2025 DBT Breast - bilateral screening MAHAD SCREENING W TERE Radiology Routine Malignant neoplasm of left breast in female, estrogen receptor positive, 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 (HCC) 1 Occurrences starting 10/04/2024 until 11/03/2025 [facility] Work Phone: Comment on above: 1 Occurrences starting 10/04/2024 until 11/03/2025 Erythrocyte mean corpuscular volume determination [facility] Glucose [Mass/volume ] in Serum or Plasma [facility] Hematocrit [Volume Fraction] of Blood [facility] Hemoglobin [Mass/vol ume] in Blood [facility] Leukocytes [#/volume ] in Blood [facility] Low density lipoprot ein cholesterol measurement [facility] Mean corpuscular hem oglobin concentration determination [facility] Mean corpuscular hem oglobin determination [facility] Measurement of renal function [facility] End: 12-03-2024 MG Breast Screening MAHAD SCREENING Radiology Routine Encounter for screening mammogram for malignant neoplasm of breast 1 Occurrences starting 11/04/2023 until 12/03/2024 [facility] Work Phone: Comment on above: 1 Occurrences starting 11/04/2023 until 12/03/2024 Mri any jt upper ext remity w/o contrast matrl MRI WRIST WO IVCON RT Radiology Routine Closed fracture of right wrist with routine healing, subsequent encounter Ordered: 12/31/2021 [facility] Work Phone: Comment on above: Ordered: 12/31/[address] [facility] Neutrophil percent differential count [facility] Platelets [#/volume] in Blood [facility] Potassium measurement [facility] Red blood cell count [facility] Red cell distributio n width determination [facility] End: 11-24-2022 Screening mammography bi 2-view breast inc cad MAHAD SCREENING Radiology Routine Malignant neoplasm of left breast in female, estrogen receptor positive, 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 (HCC) 1 Occurrences starting 10/25/2021 until 11/24/2022 [facility] Work Phone: Comment on above: 1 Occurrences starting 10/25/2021 until 11/24/2022 Serum chloride measurement [facility] Sodium measurement [facility] Total cholesterol:HD L ratio measurement [facility] Triglycerides measurement [facility] Troponin T.cardiac [Mass/volume] in Serum or Plasma by High sensitivity method [facility] Troponin T.cardiac [Mass/volume] in Serum or Plasma by High sensitivity method [facility] Urea nitrogen [Mass/ volume] in Serum or Plasma [facility] Urinalysis complete panel - Urine URINALYSIS, WITH MICROSCOPIC Lab Routine Falls frequently 03/09/2024 11:15 AM [facility] End: 03-12-2024 US LEG VEIN DVT UNL VAS LAB US LEG VEIN DVT UNL VAS LAB Vascular Lab STAT Pain of left lower extremity 1 Occurrences starting 03/12/2023 until 03/12/2024 [facility] Work Phone: Comment on above: 1 Occurrences starting 03/12/2023 until 03/12/2024 VLDL cholesterol measurement [facility] End: 04-10-2024 XR ANKLE GENERAL 3V AP/LAT/OBL LEFT XR ANKLE GENERAL 3V AP/LAT/OBL LEFT Radiology Routine Pain of left lower extremity 1 Occurrences starting 03/12/2023 until 04/10/2024 [facility] Work Phone: Comment on above: 1 Occurrences starting 03/12/2023 until 04/10/2024 XR ANKLE GENERAL 3V AP/LAT/OBL LEFT XR ANKLE GENERAL 3V AP/LAT/OBL LEFT Radiology Routine Pain of left lower extremity 03/12/2023 12:26 PM EST [facility] Work Phone: End: 09-20-2022 XR HIP 2V AP/LAT RIGHT (AK,FL,ME) XR HIP 2V AP/LAT RIGHT (AK,FL,ME) Radiology Routine Pain in right hip 1 Occurrences starting 08/21/2021 until 09/20/2022 [facility] Work Phone: Comment on above: 1 Occurrences starting 08/21/2021 until 09/20/2022 End: 04-08-2025 XR Lumbar spine 3 Views XR LUMBAR GENERAL 3V AP/LAT/L5-S1 Radiology Routine Low back pain, unspecified back pain laterality, unspecified chronicity, unspecified whether sciatica present 1 Occurrences starting 03/09/2024 until 04/08/2025 [facility] Work Phone: Comment on above: 1 Occurrences starting 03/09/2024 until 04/08/2025 XR Lumbar spine 3 Views XR LUMBA R GENERAL 3V AP/LAT/L5-S1 Radiology Routine Low back pain, unspecified back pain laterality, unspecified chronicity, unspecified whether sciatica present 03/09/2024 12:07 PM EST [facility] End: 06-26-2025 XR Pelvis and Hip - right AP and Lateral frog XR HIP GENERAL 3V PELV/AP/LAT RIGHT Radiology Routine Pain of right hip 1 Occurrences starting 05/27/2024 until 06/26/2025 [facility] Work Phone: Comment on above: 1 Occurrences starting 05/27/2024 until 06/26/2025 XR Pelvis and Hip - right AP and Lateral frog XR HIP GENERAL 3V PELV/AP/LAT RIGHT Radiology Routine Pain of right hip 05/27/2024 9:44 AM EST [facility] End: 07-14-2025 XR Shoulder - left 3 Views XR SHOULDER GENERAL 3V OR MORE AP/TRUE AP/OTHER LEFT Radiology Routine Rotator cuff tear arthropathy, left 1 Occurrences starting 06/14/2024 until 07/14/2025 [facility] Work Phone: Comment on above: 1 Occurrences starting 06/14/2024 until 07/14/2025 XR Shoulder - left 3 Views XR SH OULDER GENERAL 3V OR MORE AP/TRUE AP/OTHER LEFT Radiology Routine Rotator cuff tear arthropathy, left 06/18/2024 1:27 PM EDT [facility] End: 07-07-2025 XR Shoulder - right 3 Views XR SHOULDER GENERAL 3V OR MORE AP/TRUE AP/OTHER RIGHT Radiology Routine Rotator cuff tear arthropathy, right 1 Occurrences starting 06/07/2024 until 07/07/2025 [facility] Work Phone: Comment on above: 1 Occurrences starting 06/07/2024 until 07/07/2025 XR Shoulder - right 3 Views XR S HOULDER GENERAL 3V OR MORE AP/TRUE AP/OTHER RIGHT Radiology Routine Rotator cuff tear arthropathy, right 06/18/2024 1:23 PM EDT [facility] Work Phone: End: 06-13-2023 XR SHOULDER GENERAL 3V OR MORE AP/TRUE AP/OTHER RIGHT XR SHOULDER GENERAL 3V OR MORE AP/TRUE AP/OTHER RIGHT Radiology Routine Pain in joint of right shoulder 1 Occurrences starting 05/14/2022 until 06/13/2023 [facility] Work Phone: Comment on above: 1 Occurrences starting 05/14/2022 until 06/13/2023 End: 04-08-2025 XR Thoracic spine AP and Lateral and Swimmers XR THORACIC GENERAL 3V AP/LAT/SWIMMERS Radiology Routine DDD (degenerative disc disease), thoracic 1 Occurrences starting 03/09/2024 until 04/08/2025 [facility] Comment on above: 1 Occurrences starting 03/09/2024 until 04/08/2025 XR Thoracic spine AP and Lateral and Swimmers XR THORACIC GENERAL 3V AP/LAT/SWIMMERS Radiology Routine DDD (degenerative disc disease), thoracic 03/09/2024 12:07 PM EST [facility] End: 12-06-2021 XR WRIST GENERAL 3V PA/LAT/OBL RIGHT [facility] Work Phone: Comment on above: 1 Occurrences starting 12/06/2021 until 12/06/2021 [facility] Payers Date Payer Category Payer Self-pay [id number] 2015 Medicare MMO MEDICARE MMO MEDADVANTAGE HMO [id number] 2015-Present [phone] [address] [place] [address] O [id number] 2015 Medicare [id number] 2015 Medicare (Managed Care) MMO KEVIN DVANTAGE O [id number] [facility] (not [facility] care or Medicaid) [facility] [id number] 2009 [facility] [id number] 2009-Present [phone] [address] [address] [place] [address] Indemnity [id number] 2009 Unknown [id number] 2009 Unknown [id number] 1944 Unknown [id number] Medicare [id number] Unknown [id number] Social History Date Type Detail Facility Tobacco smoking stat us [facility] Unknown if ever smoked [facility] Work Phone: Start: 1945 Sex Assigned At Not on file [facility] Work Phone: Start: 03-05-2018 End: 10-11-2024 Tobacco smoking status NHIS Never smoker [facility] Start: 05-21-2021 End: 10-04-2024 Alcohol intake Current non-drinker of alcohol (finding) [facility] Start: 12-21-2019 End: 03-15-2022 History SDOH Alcohol Frequency 1 [facility] Start: 12-21-2019 End: 03-15-2022 History SDOH Stress 2 [facility] Start: 1945 Sex Assigned At Female [facility] Start: 02-03-2020 End: 04-14-2022 Exposure to SARS-CoV-2 (event) Not sure [facility] Start: 10-19-2021 End: 03-15-2022 History SDOH Social Connections Phone 5 [facility] Start: 10-19-2021 End: 03-15-2022 History SDOH Social Connections [facility] 3 [facility] Start: 10-19-2021 End: 03-15-2022 History SDOH Social Connections Living 4 [facility] Start: 03-15-2022 History SDOH Alcohol Std Drinks 0 [facility] Start: 03-25-2022 Tobacco smoking status NHIS Tobacco smoking consumption unknown [facility] Start: 03-15-2022 End: 10-16-2022 History of Social function [facility] Start: 03-15-2022 End: 10-16-2022 Social connection and isolation panel [facility] Do you belong to any clubs or organizations such as confucianism groups, unions, fraternal or athletic groups, or school groups? Yes [facility] Are you now , , , , never or living with a partner? [facility] How often to you hav e a drink containing alcohol? Never [facility] How many standard dr inks containing alcohol do you have on a typical day? Patient does not drink [facility] How hard is it for y ou to pay for the very basics like food, housing, medical care, and heating Not very hard [facility] Do you feel stress - tense, restless, nervous, or anxious, or unable to sleep at night because your mind is troubled all the time - these days [OSQ] Only a little [facility] (I/We) worried wheth er (my/our) food would run out before (I/we) got money to buy more. Never true [facility] In the past 12 month s, was there a time when you were not able to pay the mortgage or rent on time? No [facility] Start: 01-28-2019 Gender identity Identifies as female gender (finding) [facility] Start: 01-28-2019 Sexual orientation Heterosexual (finding) [facility] Start: 09-04-2018 None [facility] Start: 09-04-2018 Alone [facility] Medical Equipment Procedure Code Equipment Code Equipment Origin al Text Equipment Identifier Dates Ravindra Bn Endur Sst 40gm Med Vsc - [id number] Start: 09-09-2011 Comment on above: Description: SMARTSE T MV BONE CEMENT Ravindra Bn Endur Sst 40gm Med Vsc - [id number] Start: 05-31-2013 Pfc Sigma Insert Bearing Stabilized 3 10mm [id number] Start: 03-05-2020 Comp Fem 3 Rt Kn Ps Pfc Sig - [id number] Start: 09-09-2011 Comment on above: Description: SIGMA F EMORAL POSTERIOR STABILIZED CEMENTED RIGHT Comp Tibtry 2 Kn Ravindra Mdlr Sig - [id number] Start: 09-09-2011 Comment on above: Description: P.F.C. SIGMA TIBIAL TRAY FIXED BEARING MODULAR COCR 2 Ins Tib 2 17.5mm Kn Uhmwpe - [id number] Start: 09-09-2011 Comment on above: Description: P.F.C. SIGMA CROSS LINKED STABILIZED INSERT Ins Tib 3 10mm K n Xlnk Gvf - [id number] Start: 05-31-2013 Comp Fem 3 Lt Kn Ps Pfc Sig - [id number] Start: 05-31-2013 Comp Tibtry 3 Kn Ravindra Mdlr Sig - [id number] Start: 05-31-2013 Insert Sigma 3 X lk Cocr 12.5mm Tibial Stabilize Knee - [id number] Start: 03-05-2020 Dome Pat 38mm Pf c Sig Std Kn - [id number] Start: 09-09-2011 Comment on above: Description: OVAL DO ME PATELLA 3 PEG Functional Status Date Assessment Result Facility 03-09-2020 Are you deaf, or do you have serious difficulty hearing No 03/09/2020 4:06 PM Hardy Chicas RN No [facility] 03-09-2020 Are you blind, or do you have serious difficulty seeing, even when wearing glasses No 03/09/2020 4:06 PM Hardy Chicas RN No [facility] 03-09-2020 Do you have serious difficulty walking or climbing stairs Yes 03/09/2020 4:06 PM Hardy Chicas RN Yes [facility] 03-09-2020 Do you have difficul ty dressing or bathing Yes 03/09/2020 4:06 PM Hardy Chicas RN Yes [facility] 03-09-2020 Because of a physica l, mental, or emotional condition, do you have difficulty doing errands alone such as visiting a physician's office or shopping Yes 03/09/2020 4:06 PM Hardy Chicas RN Yes [facility] Mental Status Date Assessment Result Facility 10-11-2024 Cognitive function Awake;Alert;A ppropriate; Follows Commands [facility] Work Phone: 03-09-2020 Because of a physica l, mental, or emotional condition, do you have serious difficulty concentrating, remembering, or making decisions No 03/09/2020 4:06 PM Hardy Chicas RN No [facility] Clinical Notes 12-03-2019 to 10-11-2024 Note Date & Type Note Facility 10-11-2024 Evaluation note Diagnosis Onset Date Resolution Chest pain acute October 11, 2024 9:12am Atrial fibrillation with RVR resolved October 11, 2024 9 :12am [facility] Work Phone: 1(730) 163-291807-07-2025 Discharge summary [facility] Medical Records Department [address] [place] [address] Emergency Department Summary 10/11/24 MR#: [id number] Acct: [id number] Name: KESHA CARMICHAEL Rep #:[id number] : 1945 79 From: Ruiz Reaves DO PCP: Dr. Chip Arreola MD Status:ADM I N [facility] [place] History of Present Illness Chief Complaint: Chest Pain Narrative Narrative: Patient is a 79-year-old female past medical history of persistent atrial fibrillation on Xarelto, BMI of 40-49, type 2 diabetes chest pain she rates it a7 out of 10 in the center of her chest, migraines who presents to the emergency department with a chief complaint of like a elephant is sitting on her chest shestates. Per EMS they held off on nitroglycerin as her concern for a softer blood pressure and possibility of inferior wall OK. They held off on aspirin aswell and prehospital she was onXarelto. [facility] Medical History Non-rheumatic tricuspid valve insufficiency Paroxysmal atrial fibrillation Acute on chronic diastolic (congestive) heart failure Secondary pulmonary arterial hypertension Essential (primary) hypertension Persistent atrial fibrillation RONALDO (obstructive sleep apnea) Obesity, Class III, BMI 40-49.9 (morbid obesity) Malignant neoplasm of left breast, estrogen receptor positive Type 2 diabetes mellitus Osteoarthritis Migraines Knee pain, chronic Inferior OK Hyperglycemia Epistaxis Home Medications ?Medication ?Instructions ?Recorded ?Last Taken ?Type multivitamin with folic acid 400 1 tab PO DAILY SUPPLE MENT 08/18/17 11/30/18 History mcg tablet omega-3 fatty acids 1,000 mg 2,000 mg PO DAILY supplem ent 09/04/18 11/30/18 History capsule valsartan 160 mg tablet 160 mg PO DAILY heart 11/30/18 History furosemide 40 mg tablet 40 mg PO DAILY #60 tabs 09/06 11/23 Unknown Rx rivaroxaban 20 mg tablet 20 mg PO DAILY 11/03/1811/06 History metoprolol succinate 25 mg 25 mg PO DAILY 03/25/22 Unk nown History tablet,extended release 24 hr metoprolol tartrate 50 mg tablet 50 mg PO DAILY Unknown History Allergy/AdvReac Type Severity Reaction Status Date / Time adhesive Allergy Itching, Verified 04/08/24 12:50 rash, redness allantoin (From Carrasyn Allergy Rash, skin Verified 04/08/24 12:50 Hydrogel Wound Dress) peeling azithromycin Allergy Angioedema Verified 04/08/24 12:50 vitamin A (From Aquasol A) Allergy Rash Verified 04/08/24 12:50 lisinopril AdvReac Other Verified 04/08/24 12:50 Family History Mother Breast cancer Hypertension Grandmother Breast cancer Sister Breast cancer Uterine cancer Sister Breast cancer Aunt Breast cancer Daughter Uterine cancer Sister Breast cancer Sister Kidney disease Sister Diabetes Sister Macular degeneration Brother Colon cancer Diabetes Hypertension Brother , 51yr No problems noted. Surgical History H/O shoulder surgery History of cardioversion (11/30/18) History of tonsillectomy History of tubal ligation History of hysterectomy History of appendectomy History of bilateral knee replacement left axillary lymph node biopsy History of lumpectomy of left breast History of breast biopsy Social History Smoking Status: Never smoker second hand exposure: No alcohol intake: never substance use type: does not use ROS ROS ED ROS Narrative constitutional: Denies any fevers, lightheadedness, dizziness Eyes: Denies change in vision double vision blurry vision Cardiovascular: Complaint chest pain as noted above Respiratory: Denies coughing wheezing shortness of breath Abdomen: Denies abdominal pain vomiting diarrhea : Denies urinary symptoms Neurological: Denies any numbness, wheeze, tingling Musculoskeletal: Denies back pain Skin: Denies any rashes or lesions EXAM Physical Exam Narrative Exam Narrative: General: Patient was lying on the bed rest comfortably did not appear to be acute distress Head: Atraumatic, normocephalic Eyes: PERRL bilaterally, EOMI blood, no conjunctival injection noted Neck: Soft, supple, trachea midline Cardiovascular: Patient tachycardic with an irregular irregular rhythm Respiratory: Clear to auscultation bilaterally Extremities: Patient moving all extremities on exam Neurological: Patient follow commands that she was at [facility] the year is 2024 Skin: Warm, dry, tact no rashes or lesions noted Const Vital Signs: 10/11/24 08:45 10/11/24 08:51 10/11/24 08:57 Temperature 98.1 F Temperature Source Temporal Pulse Rate 125 H Respiratory Rate 22 H 20 H Blood Pressure 153/96 H 153/98 H Blood Pressure Mean 115 Pulse Ox 98 98 Oxygen Delivery Method Room Air Room Air 10/11/24 09:12 Temperature Temperature Source Pulse Rate 100 Respiratory Rate Blood Pressure 151/115 H Blood Pressure Mean Pulse Ox Oxygen Delivery Method MDM MDM MDM Narrative Medical decision making narrative: Patient is a 79-year-old female who presented to the emergency department chief complaint chest pain on the differential did includes ACS, pneumonia, pneumothorax, PE, dissection. Once workup is obtained reviewed she will be reevaluated. Prehospital EKG was reviewed and did show evidence of STEMI therefore STEMI alert was called on-call sliver lap tender Dr. Blum came down and evaluated the patient at bedside. He is recommending aspirin and beta-jarod. He is also requesting aspirin, heparin drip, nitroglycerin drip which were all ordered multiple EKGs were obtained and reviewed therefore after this further review by sliver lap tender he also would prefer to get rate control therefore the patient was given digoxin get echocardiogram and admit the patient to the intensive care unit. Will reach out to the hospitalist. Patient CBC reviewed and showed no evidence leukocytosis white was count normal 8.1, hemoglobin was14.9, plate count of 290. Patient INR normal at 2.1, PT 23.6. Patient sodium was 143, potassium 3.8, creatinine normal at 0.92. Glucose of 170, troponin was 17 with proBNP 1553. Patient TSH normal at2.52. There is chest x-ray reviewed by myself and by radiology which showed no acute cardiopulmonary processes. Called and discussed case with hospitalist Dr. Miranda who accept patient for admission to the intensive care unit. Lab Data Labs: Laboratory Results - last 24 hr 10/11/24 10/11/24 08:50 08:54 WBC 8.1 RBC 4.80 Hgb 14.9 Hct 46.2 MCV 96.3 MCH 31.0 MCHC 32.3 RDW Std Deviation 46.0 H RDW Coeff of Gold 12.9 Plt Count 290 MPV 10.3 Immature Gran % (Auto) 0.400 Neut % (Auto) 62.4 Lymph % (Auto) 30.4 [place] % (Auto) 5.7 Eos % (Auto) 0.6 Baso % (Auto) 0.5 Absolute Neuts (auto) 5.1 Absolute Lymphs (auto) 2.46 Nucleated RBC % 0 PT 23.6 H INR 2.1 Sodium 143 Potassium 3.8 Chloride 103 Carbon Dioxide 26.7 Anion Gap 14 BUN 27 H Creatinine 0.92 Estim Creat Clear Calc 51.74 Est GFR (MDRD) Non-Af 63 BUN/Creatinine Ratio 29.1 H Glucose 170 H Calcium 9.9 Magnesium 2.4 H Troponin T High Sens 17 H NT pro BNP II 1553 TSH 2.520 Discharge Plan Triage Chief Complaint: Chest Pain ED Provider: Ruiz Reaves Dx/Rx/DC Orders Clinical Impression: Essential (primary) hypertension, Acute on chronic diastolic (congestive) heartfailure, RONALDO (obstructive sleep apnea), Paroxysmal atrial fibrillation, Chest pain, Non-ST elevation OK (NSTEMI) Primary Care Provider: Chip Arreola Disposition Disposition: Acute Care Hospital [facility] What to do if you have Problems For any increased pain, shortness of breath, bleeding, nausea or vomiting, chestpain, or any unexpected problems, contact your Primary Care Provider. Call [facility] ([phone]) or report tothe closest Emergency Room. Call 911 if necessary. 10/11/24 1038 Cosigner Signature (if applicable): CC: Dr. Chip Arreola MD ~ Signed [facility]07-07-2025 History and physical note [facility] Medical Records Department [address] [place] [address] H&P Exam - Hospitalist 10/11/24 1026 MR#: [id number] Acct: [id number] Name: KESHA CARMICHAEL Rep #:[id number] : 1945 79 From: Dayanna Miranda DO PCP: Dr. Chip Arreola MD Status:ADM I N Location: ICU ICU05-1 HPI - General General Date of Admission: 10/11/24 Date of Service: 10/11/24 Chief Complaint: Chest pain HPI Narrative KESHA CARMICHAEL, is a 79 F who presents with epistaxis and chest pain. This is [id number] male whohas a history of A-fib on rivaroxaban presents with epistaxis. Patient was also having midsternal, nonradiating chest pain. Spoke with her neighbor who called 911 and patient was brought here. Patient was called as a STEMI alert and was seen by cardiology who rescinded the STEMI alertand admission.Patient was noted to be in A-fib with RVR and did receive a doseof 125 mcg of digoxin. Patient had an INR of 2.1 she does take rivaroxaban and was started on a heparin drip which will be discontinuedupon admission. Patient is currently chest pain-free and had been started on a nitroglycerin drip. Troponins became available later and it was only 17. Patient feels good right now and wants to go home. She is unconcerned about her A-fib as she states that her heart rate is fast all the time. [facility] Medical History Non-rheumatic tricuspid valve insufficiency Paroxysmal atrial fibrillation Acute on chronic diastolic (congestive) heart failure Secondary pulmonary arterial hypertension Essential (primary) hypertension Persistent atrial fibrillation RONALDO (obstructive sleep apnea) Obesity, Class III, BMI 40-49.9 (morbid obesity) Malignant neoplasm of left breast, estrogen receptor positive Type 2 diabetes mellitus Osteoarthritis Migraines Knee pain, chronic Inferior OK Hyperglycemia Epistaxis Home Medications ?Medication ?Instructions ?Recorded ?Last Taken ?Type multivitamin with folic acid 400 1 tab PO DAILY SUPPLE MENT 08/18/17 11/30/18 History mcg tablet omega-3 fatty acids 1,000 mg 2,000 mg PO DAILY supplem ent 09/04/18 11/30/18 History capsule valsartan 160 mg tablet 160 mg PO DAILY heart 11/30/18 History furosemide 40 mg tablet 40 mg PO DAILY #60 tabs 09/06 11/23 Unknown Rx rivaroxaban 20 mg tablet 20 mg PO DAILY 11/03/1811/06 History metoprolol succinate 25 mg 25 mg PO DAILY 03/25/22 Unk nown History tablet,extended release 24 hr metoprolol tartrate 50 mg tablet 50 mg PO DAILY Unknown History Allergy/AdvReac Type Severity Reaction Status Date / Time adhesive Allergy Itching, Verified 04/08/24 12:50 rash, redness allantoin (From Carrasyn Allergy Rash, skin Verified 04/08/24 12:50 Hydrogel Wound Dress) peeling azithromycin Allergy Angioedema Verified 04/08/24 12:50 vitamin A (From Aquasol A) Allergy Rash Verified 04/08/24 12:50 lisinopril AdvReac Other Verified 04/08/24 12:50 Family History Mother Breast cancer Hypertension Grandmother Breast cancer Sister Breast cancer Uterine cancer Sister Breast cancer Aunt Breast cancer Daughter Uterine cancer Sister Breast cancer Sister Kidney disease Sister Diabetes Sister Macular degeneration Brother Colon cancer Diabetes Hypertension Brother , 51yr No problems noted. Surgical History H/O shoulder surgery History of cardioversion (11/30/18) History of tonsillectomy History of tubal ligation History of hysterectomy History of appendectomy History of bilateral knee replacement left axillary lymph node biopsy History of lumpectomy of left breast History of breast biopsy Social History Smoking Status: Never smoker second hand exposure: No alcohol intake: never substance use type: does not use ROS ROS Narrative Does have history of lower extremity edema but since change of her furosemide. All review of systems were negative except as mentioned above in the history of present illness and the other review of systems. Vital Signs Vital Signs Vital Signs: 10/11/24 08:45 10/11/24 08:51 10/11/24 08:57 Temperature 36.7 C Temperature Source Temporal Pulse Rate 125 H Respiratory Rate 22 H 20 H Blood Pressure 153/96 H 153/98 H Blood Pressure Mean 115 Pulse Ox 98 98 Oxygen Delivery Method Room Air Room Air 10/11/24 09:12 10/11/24 09:15 10/11/24 09:30 Temperature Temperature Source Pulse Rate 100 117 H 114 H Respiratory Rate 20 H 16 Blood Pressure 151/115 H 151/105 H 171/121 H Blood Pressure Mean 120 137 Pulse Ox 98 100 Oxygen Delivery Method Room Air 10/11/24 09:54 Temperature 36.9 C Temperature Source Pulse Rate 112 H Respiratory Rate 19 H Blood Pressure 171/121 H Blood Pressure Mean 137 Pulse Ox 100 Oxygen Delivery Method Weight Weight: 96.3 kg Body Mass Index (BMI) 40.1 Physical Exam Narrative - Physical Exam General: Alert, Oriented x3, Cooperative HEENT: Atraumatic, PERRLA, EOMI, Normocephalic Oral: Moist Mucosa, No Gingival or Mucosal Lesions/ Ulcerations Neck: Supple, No JVD, Negative Carotid Bruits Lungs: Clear to auscultation, Normal air movement Cardiovascular: Irregularly irregular Abdomen: Bowel Sounds Present, Soft, Non Tender, Non-Distended, No Hepato-splenomegaly Extremities: No clubbing, No cyanosis, No edema, Capillary Refill Less than 3 Seconds Skin: No rashes, No breakdown Musculoskeletal: No Tenderness to Palpation of Joints or Extremities Neurological: Neuro grossly intact Psych/Mental Status: Normal Affect, Appropriate Results Lab / Micro Data 10/11/24 08:50 10/11/24 08:50 Labs: Laboratory Results - last 24 hr 10/11/24 08:50: WBC 8.1, RBC 4.80, Hgb 14.9, Hct 46.2, MCV 96.3, MCH 31.0, MCHC 32.3, RDW Std Deviation 46.0 H, RDW Coeff of Gold 12.9, Plt Count 290, MPV 10.3, Immature Gran % (Auto) 0.400, Neut % (Auto) 62.4, Lymph % (Auto) 30.4, [place] % (Auto) 5.7, Eos % (Auto) 0.6, Baso % (Auto) 0.5, Absolute Neuts (auto) 5.1, Absolute Lymphs (auto) 2.46, Nucleated RBC % 0, Sodium 143, Potassium 3.8, Chloride 103, Carbon Dioxide 26.7, Anion Gap 14, BUN 27 H, Creatinine 0.92, Estim Creat Clear Calc 51.74, Est GFR (MDRD) Non-Af 63, BUN/Creatinine Ratio 29.1 H, Glucose 170 H, Calcium 9.9, Magnesium 2.4 H, Troponin T High Sens 17 H, NT pro BNP II 1553, TSH 2.520 10/11/24 08:54: PT 23.6 H, INR 2.1 Assessment & Plan Assessment/Plan (1) Atrial fibrillation with RVR: PLAN: Currently improved. Patient did receive digoxin in the emergency room. On her home medicationlist she takes metoprolol succinate and metoprolol tartrate. Unclear if she is actually taking bothof those. Will need to clarify which one she is taking or if those are correct. The meantime patient will be on as needed IV metoprolol for heart rate greater than 160. Patient is already anticoagulat ed on rivaroxaban continue for now. Check an echocardiogram (2) Chest pain: PLAN: Troponins minimally elevated at 17. Not an actual STEMI despite a STEMI alert being called. Already seen by cardiology. No plans for imminent heart cath at this point in time. Discontinue heparin drip this patient already does take rivaroxaban INR is 2.1. Chest pain may have been induced by her atrial fibrillation with RVR. Be very stable at this time. Will however, continue to check her troponins. PLAN: Plan Hypertension: Continue with valsartan VTE prophylaxis: Not indicated patient is already on oxygen. Charges/Coding Visit Charges Inpatient E&M: 45852 Init Hosp L3 10/11/24 1033 Cosigner Signature (if applicable): CC: Dr. Dayanna Miranda DO; Dr. Chip Arreola MD~ Signed [facility]07-07-2025 Radiology Diagnostic study note [facility] Imaging Services [address] [place], [place] [id number] Chest PA and Lateral MR#: [id number] Acct: [id number] Name: KESHA CARMICHAEL Rep #: [id number] : 1945 F 79 From: Pet er Amalia COMBS PCP: Dr. Chip Arreola MD Status: ADM I N Study:Chest PA and Lateral Date of Exam: 10/11/24 Exam# [id number] Ordering Dr: Kimberli Reaves DO PROCEDURE: CHEST PA AND LATERAL 10/11/2024 REASON FOR EXAM: CHEST PAIN TECHNIQUE: CHEST PA AND LATERAL FINDINGS: Hardware: EKG wires Heart: Upper limits of normal size Mediastinum: Mediastinal contours Lungs: Lungs are clear. Bones: No aggressive lesions. Chronic elevation of the right hemidiaphragm RAD/Chest PA and Lateral IMPRESSION: Lungs are clear. Chronic elevation of the left hemidiaphragm, stable since August 2018 Reading Location[facility] CC: Dr. Ruiz Reaves DO; Dr. Chip Arreola MD ~ International Exchange Coordinator: Signed [facility]07-03-2025 Instructions* Patient Instructions* Dominga Reese PA-C - 10/07/2024 9:15 AM EDT Dominga Lewis [phone] (Chantal-Clinical Pathologist) You may do the [place] 6 exercises: Rows, Biceps Curls, Triceps, Shrugs, Free weights up overhead & Close family and consumer sciences teacher pull downs. Avoid these exercises: Flys, seated flies, upright rows, dips, push ups or pull ups. If the elbow is away, you will pay. [facility] NoteHNO ID: [id number] Author: DOMINGA REESE PA-C Service: ? Author Type: Physician Mitigation Supervisor Type: Progress Notes Filed: 10/07/2024 09:15 Note Text: [facility] NOTE Department of Orthopaedics Dayanna Lewis M.D. NAME: Kesha Curiel [facility] NO.: [id number] DATE: October 07, 2024 Kesha returns for follow-up today for her shoulders. I last saw her 2 years ago. She has noticed increasing symptoms over time in both shoulders. The left shoulder is the more symptomatic of the 2. She notes difficulty with reaching activities, lifting activities, over activities, and symptoms at night. She presents for further discussion on management. She is not interested in surgery. She is able to sleep. She takes Tylenol for pain. Her last injections in both shoulders were with Dr. Lewis on 06/24/24. PHYSICAL EXAMINATION: Physical examination today of shoulder is unchanged from previous visit. B/L FF 100 RADIOGRAPHIC STUDIES: Last 2 XR Shoulder - Impression Only XR SHOULDER GENERAL 3V OR MORE AP/TRUE AP/OTHER LEFT Exam End: 06/18/2024 1:27 PM (Final result) Impression: IMPRESSION: Degenerative changes as described. International Exchange Coordinator: RG Transcribe Date/Time: Jun 22 2024 8:45P... XR SHOULDER GENERAL 3V OR MORE AP/TRUE AP/OTHER RIGHT Exam End: 06/18/2024 1:23 PM (Final result) Impression: IMPRESSION: Degenerative changes as described. International Exchange Coordinator: RG Transcribe Date/Time: Jun 22 2024 8:45P... ASSESSMENT: M75.102, M12.812 Rotator cuff tear arthropathy, left M75.101, M12.811 Rotator cuff tear arthropathy, right PLAN: Patient was given a cortisone injection into both shoulder glenohumeral joints and tolerated the procedure well. I did show the patient exercises to do at home as well as exercises to avoid. I did answer all of her questions. I will see her back as needed. If any questions or concerns arise, She should not hesitate to call. Large Joint Arthro/Inj: bilateral glenohumerals 10/07/2024 9:14 AM The procedure site was prepped in the usual sterile fashion. Site: bilateral glenohumerals Medications (Right): 40 mg triamcinolone acetonide 40 mg/mL Medications (Left): 40 mg triamcinolone acetonide 40 mg/mL Anesthetics (Right): 4 mL lidocaine (PF) 10 mg/mL (1 %) Anesthetics (Left): 4 mL lidocaine (PF) 10 mg/mL (1 %) Outcome: Tolerated well, no immediate complications Post-injection instructions were reviewed with the patient and the patient voiced understanding of these instructions. Informed Consent Consent Obtained: Verbal Chase Protocol A moment to CARE was completed. SIGN IN Personnel directly involved with the procedure wore the appropriate PPE. Special Equipment: N/A Patient/Surrogate Stated/Verified: Date of , Intended procedure, Relevant allergies and Patient name TIME OUT Relevant labs, photos, and/or imaging studies have been reviewed. Consent documented and matches the intended procedure. Correct side/site marked and visible. Medications required for procedure verified. No fire risk assessment and interventions applicable. No implant(s) inserted. SIGN OUT No specimen collected. [facility] History of Present illness Narrative* Dominga Reese PA-C - 10/07/2024 9:12 AM EDTAssociated Order(s): Large Joint Arthro/Inj: bilateral glenohumerals Post-Procedure Diagnose(s): Rotator cuff tear arthropathy, right; Rotator cuff tear arthropathy, left [facility] NOTE Department of Orthopaedics Dayanna Lewis M.D. NAME: Kesha Curiel [facility] NO.: [id number] DATE: October 07, 2024 Kesha returns for follow-up today for her shoulders. I last saw her 2 years ago. She has noticed increasing symptoms over time in both shoulders. The left shoulder is the more symptomatic of the 2. She notes difficulty with reaching activities, lifting activities, over activities, and symptoms at night. She presents for further discussion on management. She is not interested in surgery. She is able to sleep. She takes Tylenol for pain. Her last injections in both shoulders were with Dr. Lewis on 06/24/24. PHYSICAL EXAMINATION: Physical examination today of shoulder is unchanged from previous visit. B/L FF 100 RADIOGRAPHIC STUDIES: Last 2 XR Shoulder - Impression Only XR SHOULDER GENERAL 3V OR MORE AP/TRUE AP/OTHER LEFT Exam End: 06/18/2024 1:27 PM (Final result) Impression: IMPRESSION: Degenerative changes as described. International Exchange Coordinator: RG Transcribe Date/Time: Jun 22 2024 8:45P... XR SHOULDER GENERAL 3V OR MORE AP/TRUE AP/OTHER RIGHT Exam End: 06/18/2024 1:23 PM (Final result) Impression: IMPRESSION: Degenerative changes as described. International Exchange Coordinator: RG Transcribe Date/Time: Jun 22 2024 8:45P... ASSESSMENT: M75.102, M12.812 Rotator cuff tear arthropathy, left M75.101, M12.811 Rotator cuff tear arthropathy, right PLAN: Patient was given a cortisone injection into both shoulder glenohumeral joints and tolerated the procedure well. I did show the patient exercises to do at home as well as exercises to avoid. I did answer all of her questions. I will see her back as needed. If any questions or concerns arise, She should not hesitate to call. Large Joint Arthro/Inj: bilateral glenohumerals 10/07/2024 9:14 AM The procedure site was prepped in the usual sterile fashion. Site: bilateral glenohumerals Medications (Right): 40 mg triamcinolone acetonide 40 mg/mL Medications (Left): 40 mg triamcinolone acetonide 40 mg/mL Anesthetics (Right): 4 mL lidocaine (PF) 10 mg/mL (1 %) Anesthetics (Left): 4 mL lidocaine (PF) 10 mg/mL (1 %) Outcome: Tolerated well, no immediate complications Post-injection instructions were reviewed with the patient and the patient voiced understanding of these instructions. Informed Consent Consent Obtained: Verbal Chase Protocol A moment to CARE was completed. SIGN IN Personnel directly involved with the procedure wore the appropriate PPE. Special Equipment: N/A Patient/Surrogate Stated/Verified: Date of , Intended procedure, Relevant allergies and Patient name TIME OUT Relevant labs, photos, and/or imaging studies have been reviewed. Consent documented and matches the intended procedure. Correct side/site marked and visible. Medications required for procedure verified. No fire risk assessment and interventions applicable. No implant(s) inserted. SIGN OUT No specimen collected. Domniga Reese PA-C documented [facility]Way[facility] Telephone encounter Note * Telephone Encounter - Angy Phipps RN - 10/06/2024 9:21 AM EDT Patient calls and notified of results and providers instructions. Patient verbalizes understanding. Patient transferred to schedule consult with endocrinology. Angy Phipps RN [facility]07-02-[facility] Miscellaneous Notes* Telephone Encounter - Angy Phipps RN - 10/06/2024 9:21 AM EDT Patient calls and notified of results and providers instructions. Patient verbalizes understanding. Patient transferred to schedule consult with endocrinology. Angy Phipps RN * Telephone Encounter - Shadia Sunshine LPN - 10/05/2024 5:08 PM EDT Left message to call and speak with nurse. * Result Encounter Note - Belkys Mcintyre APRN.CNP - 10/05/2024 8:35 AM EDT Vitamin D level is okay. Calcium levels, kidney function, liver function, and blood counts are normal. Parathyroid hormone is even higher. I am going to consult endocrine. I just want them to weigh in and decide what we should do. documented in this encounterWayne [facility]07-01-2025 Telephone encounter Note * Telephone Encounter - Shadia Sunshine LPN - 10/05/2024 5:08 PM EDT Left message to call and speak with nurse. [facility]07-[facility] Progress note* Result Encounter Note - Belkys Mcintyre APRN.CNP - 10/05/2024 8:35 AM EDT Vitamin D level is okay. Calcium levels, kidney function, liver function, and blood counts are normal. Parathyroid hormone is even higher. I am going to consult endocrine. I just want them to weigh in and decide what we should do. [facility]06-30-[facility] Instructions* Patient Instructions* Belkys Mcintyre APRN.ANJEL - 10/04/2024 10:36 AM EDT WHAT YOU CAN DO TO PREVENT FALLS Many falls can be prevented. By making some changes, you can lower your chances of falling. Four things YOU can do to prevent falls for you* and your caregiver 1. Begin a regular exercise program Exercise is one of the most important ways to lower your chances of falling. It makes you stronger and helps you feel better. Exercises that improve balance and coordination (like Pepe Chi) are the most helpful. Lack of exercise leads to weakness and increases your chances of falling. Ask your doctor or health care provider about the best type of exercise program for you. 2. Have your health care provider review your medicines Have your doctor or pharmacist review all the medicines you take, even ylra-zil-ttoiawn medicines. As you get older, the way medicines work in your body can change. Some medicines, or combinations of medicines, can make you sleepy or dizzy andcan cause you to fall. 3. Have your vision checked Have your eyes checked by an eye doctor at least once a year. You may be wearing the wrong glasses or have a condition like glaucoma or cataracts that limits your vision. Poor vision can increase your chances of falling. 4. Make your home safer About half of all falls happen at home. To make your home safer: Remove things you can trip over (like papers, books, clothes, and shoes) from stairs and places where you walk. Remove small throw rugs or use double-sided tape to keep the rugs from slipping. Keep items you use often in cabinets you can reach easily without using a step stool. Have grab bars put in next to your toilet and in the tub or shower. Use non-slip mats in the bathtub and on shower floors. Improve the lighting in your home. As you get older, you need brighter lights to see well. Hang light-weight curtains or shades to reduce glare. Have handrails and lights put in on all staircases. Wear shoes both inside and outside the house. Avoid going barefoot or wearing slippers. - Complete the blood tests ordered today to check your fluid status and kidney function; please have these drawn as soon as possible. - Limit dietary sodium and avoid high-salt beverages (for example, diet soda); choose water instead. - Take an extra 40 mg dose of furosemide (Lasix) once daily for the next 3 days to help remove excess fluid. You have a new 30-tablet supply of 40 mg furosemide labeled as needed, and your usual furosemide prescription has been renewed. - Continue your current medications--valsartan, metoprolol, Xarelto, and vitamins--exactly as prescribed. - Use your CPAP machine for at least 7 hours each night to support better sleep. - Schedule mammogram For more information, contact: Centers for Disease Control and Prevention www.cdc.gov/injury * This information may not apply if you have certain medical conditions. documented in this encounterWayne Hospital06-30-2025 NoteHNO ID: [id number] Author: BELKYS MCINTYRE APRN.CNP Service: ? Author Type: Nurse Practitioner Type: Progress Notes Filed: 10/04/2024 10:41 Note Text: This is a 79 year old female who presents today with: Patient presents with: Edema: Swelling in ankles HISTORY OF PRESENT ILLNESS: Kesha Carmichael is a 79 year old female. Patient presents with: Edema: Swelling in ankles Kesha Carmichael is an 79-year-old female with a history of atrial fibrillation and CKD stage 3, presenting for evaluation of edema and tremors. Edema: - Kesha noticed swelling; unsure of the cause. - Consumes diet Pepsi. - Taking furosemide daily. - Denies cough or wheezing. - Appetite described as too good. - No issues with bowel or bladder function. Atrial Fibrillation: - Chronic atrial fibrillation since teenage years. - Reports palpitations and a hard heartbeat during episodes. - Episodes are more frequent than previously. - Denies any correlation between atrial fibrillation and tremors. - Denies chest pain. - Experiences dyspnea on exertion. - Denies orthopnea; sleeps on side without elevating head. - Using CPAP for at least 7 hours per night; reports good sleep quality with occasional nocturia. - Taking valsartan, metoprolol, and Xarelto. - Echo last year showed EF of 50%. Tremors: - Tremors vary in severity; some days are better than others. - Denies any correlation between atrial fibrillation and tremors. - Has cut out caffeine. CKD Stage 3: - Diagnosed by Dr. Torres. - Denies taking lisinopril due to cough; currently on valsartan. Family History: - Older sister diagnosed with stage 4 pancreatic cancer in May; treatments are not helping. PAST MEDICAL HISTORY: PAST MEDICAL HISTORY Diagnosis Date Abnormal EKG afib, inf [place] age undetermined Atrial fibrillation (HCC) Breast cancer (HCC) 03/2018 left breast Closed fracture of right distal radius 09/10/2021 Congestive heart failure (HCC) 09/24/2018 Epistaxis balloon out 5-210-2011 osteo History of colonoscopy [address] Stoney Hernandez , normal HTN (hypertension) Hyperglycemia Knee pain, chronic Lt Migraines stopped when she retired Normal cardiac stress test 2004 Dr. Romero Osteoarthritis Seasonal allergies Type 2 diabetes mellitus without complication, without long-term current use of insulin ([facility]) 04/11/2016 PAST SURGICAL HISTORY Procedure Laterality Date ARTHRP KNE CONDYLEANDPLATU MEDIALANDLAT COMPARTMENTS 2011 Knee replacement, total, right ARTHRP KNE CONDYLEANDPLATU MEDIALANDLAT COMPARTMENTS Knee replacement, total, left BIOPSY BREAST OPEN INCISIONAL 2003 Bx of breast, incisional left LAPAROSCOPIC APPENDECTOMY 02/28/10 LIG/TRNSXJ FLP TUBE ABDL/VAG APPR UNI/BI 1973 Tubal ligation PAST SURGICAL HISTORY OF Left 03/27/2018 biopsy and lumpectomy left breast breast with lymph node removal x 4 PAST SURGICAL HISTORY OF Right shoulder surgery PICC LINE INSERT/CONSULT 03/09/2020 TONSILLECTOMY AND ADENOIDECTOMY T/A (under age 11 years) TOTAL ABDOMINAL HYSTERECT W/WO RMVL TUBE OVARY 1974 Hysterectomy, DANYELLE ALLERGIES Adhesive Tape-Silicones, Anastrozole, Aquacel-Ag [Silver-Hydrocolloid Dressing], Azithromycin, Exemestane, and Lisinopril MEDICATIONS Current Outpatient Medications Medication Sig valsartan (DIOVAN) 160 mg tablet Take 1 tablet by mouth once daily. metoprolol succinate ER (TOPROL XL) 50 mg 24 hr tablet Take 1 tablet by mouth once daily. rivaroxaban (XARELTO) 20 mg tablet Take 1 tablet by mouth daily with dinner. calcium carbonate/vitamin D3 (CALCIUM WITH VITAMIN D3 ORAL) Take by mouth. amoxicillin (AMOXIL) 500 mg capsule Take four capsules 20 minutes before procedure POTASSIUM ORAL Take 1 capsule by mouth once daily. furosemide (LASIX) 40 mg tablet Take 1 tablet by mouth once daily. vit C,W-Ss-hqaat-lutein-zeaxan (PRESERVISION AREDS-2) 250-90-40-1 mg Take 1 capsule by mouth twice daily with meals. Cholecalciferol, Vitamin D3, 50 mcg (2,000 unit) cap Take 1 capsule by mouth once daily. thiamine HCl (VITAMIN B-1 ORAL) Take 250 mg by mouth once daily. multivitamins(DAILY MULTIVITAMIN TAB) Take one(1) tablet daily. No current facility-administered medications for this visit. FAMILY HISTORY Problem Relation Age of Onset Breast Cancer Mother Hypertension Mother Hypertension Father Heart Father [place] Diabetes Father Kidney Disease Sister Heart disease Sister Cancer Sister breast COPD Sister Hypertension Sister Macular Degen Sister Stroke Sister mini strokes Arthritis Sister Cancer Sister breast Hypertension Sister Macular Degen Sister Diabetes Sister Tremor Sister Hypertension Sister Pancreatic Cancer Sister Cancer Sister uterine,breast Blood Clots Sister Aneurysm Brother Hypertension Brother Diabetes Brother Colon Cancer Brother other (MVA) Brother Breast Cancer Maternal Grandmother No Kn (more content not included)...[facility]06-30-2025 History of Present illness Narrative* Belkys Mcintyre, FITNESS CONSULTANT.MINERALOGY PROFESSOR - 10/04/2024 10:20 AM EDT This is a 79 year old female who presents today with: Patient presents with: Edema: Swelling in ankles HISTORY OF PRESENT ILLNESS: Kesha Carmichael is a 79 year old female. Patient presents with: Edema: Swelling in ankles Kesha Carmichael is an 79-year-old female with a history of atrial fibrillation and CKD stage 3, presenting for evaluation of edema and tremors. Edema: - Kesha noticed swelling; unsure of the cause. - Consumes diet Pepsi. - Taking furosemide daily. - Denies cough or wheezing. - Appetite described as too good. - No issues with bowel or bladder function. Atrial Fibrillation: - Chronic atrial fibrillation since teenage years. - Reports palpitations and a hard heartbeat during episodes. - Episodes are more frequent than previously. - Denies any correlation between atrial fibrillation and tremors. - Denies chest pain. - Experiences dyspnea on exertion. - Denies orthopnea; sleeps on side without elevating head. - Using CPAP for at least 7 hours per night; reports good sleep quality with occasional nocturia. - Taking valsartan, metoprolol, and Xarelto. - Echo last year showed EF of 50%. Tremors: - Tremors vary in severity; some days are better than others. - Denies any correlation between atrial fibrillation and tremors. - Has cut out caffeine. CKD Stage 3: - Diagnosed by Dr. Torres. - Denies taking lisinopril due to cough; currently on valsartan. Family History: - Older sister diagnosed with stage 4 pancreatic cancer in May; treatments are not helping. PAST MEDICAL HISTORY: PAST MEDICAL HISTORY Diagnosis Date Abnormal EKG afib, inf [place] age undetermined Atrial fibrillation (HCC) Breast cancer (HCC) 03/2018 left breast Closed fracture of right distal radius 09/10/2021 Congestive heart failure (HCC) 09/24/2018 Epistaxis balloon out -2011 osteo History of colonoscopy [address] Stoney Hernandez , normal HTN (hypertension) Hyperglycemia Knee pain, chronic Lt Migraines stopped when she retired Normal cardiac stress test 2004 Dr. Romero Osteoarthritis Seasonal allergies Type 2 diabetes mellitus without complication, without long-term current use of insulin ([facility]) 04/11/2016 PAST SURGICAL HISTORY Procedure Laterality Date ARTHRP KNE CONDYLE&PLATU MEDIAL&LAT COMPARTMENTS 2011 Knee replacement, total, right ARTHRP KNE CONDYLE&PLATU MEDIAL&LAT COMPARTMENTS Knee replacement, total, left BIOPSY BREAST OPEN INCISIONAL 2003 Bx of breast, incisional left LAPAROSCOPIC APPENDECTOMY 02/28/10 LIG/TRNSXJ FLP TUBE ABDL/VAG APPR UNI/BI 1973 Tubal ligation PAST SURGICAL HISTORY OF Left 03/27/2018 biopsy and lumpectomy left breast breast with lymph node removal x 4 PAST SURGICAL HISTORY OF Right shoulder surgery PICC LINE INSERT/CONSULT 03/09/2020 TONSILLECTOMY & ADENOIDECTOMY <AGE 11 T/A (under age 11 years) TOTAL ABDOMINAL HYSTERECT W/WO RMVL TUBE OVARY 1974 Hysterectomy, DANYELLE ALLERGIES Adhesive Tape-Silicones, Anastrozole, Aquacel-Ag [Silver-Hydrocolloid Dressing], Azithromycin, Exemestane, and Lisinopril MEDICATIONS Current Outpatient Medications Medication Sig valsartan (DIOVAN) 160 mg tablet Take 1 tablet by mouth once daily. metoprolol succinate ER (TOPROL XL) 50 mg 24 hr tablet Take 1 tablet by mouth once daily. rivaroxaban (XARELTO) 20 mg tablet Take 1 tablet by mouth daily with dinner. calcium carbonate/vitamin D3 (CALCIUM WITH VITAMIN D3 ORAL) Take by mouth. amoxicillin (AMOXIL) 500 mg capsule Take four capsules 20 minutes before procedure POTASSIUM ORAL Take 1 capsule by mouth once daily. furosemide (LASIX) 40 mg tablet Take 1 tablet by mouth once daily. vit C,K-Hm-qgtch-lutein-zeaxan (PRESERVISION AREDS-2) 250-90-40-1 mg Take 1 capsule by mouth twice daily with meals. Cholecalciferol, Vitamin D3, 50 mcg (2,000 unit) cap Take 1 capsule by mouth once daily. thiamine HCl (VITAMIN B-1 ORAL) Take 250 mg by mouth once daily. multivitamins(DAILY MULTIVITAMIN TAB) Take one(1) tablet daily. No current facility-administered medications for this visit. FAMILY HISTORY Problem Relation Age of Onset Breast Cancer Mother Hypertension Mother Hypertension Father Heart Father [place] Diabetes Father Kidney Disease Sister Heart disease Sister Cancer Sister breast COPD Sister Hypertension Sister Macular Degen Sister Stroke Sister mini strokes Arthritis Sister Cancer Sister breast Hypertension Sister Macular Degen Sister Diabetes Sister Tremor Sister Hypertension Sister Pancreatic Cancer Sister Cancer Sister uterine,breast Blood Clots Sister Aneurysm Brother Hypertension Brother Diabetes Brother Colon Cancer Brother other (MVA) Brother Breast Cancer Maternal Grandmother No Known Problems Maternal Grandfather in his 70's Stroke Paternal Grandmother other (TB) Paternal Grandfather Cancer Daughter uterine Hypertension Daughter Hypertension Son Hypertension Son Breast Cancer Other niece x3 Colon Cancer Other nephew Social History Tobacco Use Smoking status: Never Smokeless tobacco: Never Vaping Use Vaping status: Never Used Substance Use Topics Alcohol use: No Drug use: No REVIEW OF SYSTEMS Cardiovascular: (+) palpitations, (+) peripheral edema, (+) orthopnea Respiratory: (+) exertional dyspnea, (-) cough, (-) wheeze Gastrointestinal: (+) increased appetite Genitourinary: (+) nocturia Neurological: (+) tremor EXAM: BP 136/90 Pulse 91 Wt 94.8 kg (209 lb) SpO2 98% BMI 42.21 kg/m PHYSICAL EXAM: GENERAL: NAD, alert and oriented. SKIN: Unremarkable, no rash or skin lesions. HEAD: Normocephalic. NECK: Supple, no lymphadenopathy, normal thyroid, no carotid bruits. LUNGS: Clear to auscultation bilaterally, no wheezes/rhonchi/rales. HEART: Irreg-irreg rate and rhythm, no murmurs, no gallop. No ectopy. EXTREMITIES: 2 + pedal edema noted. NEURO: Awake, alert and oriented x3, cranial nerves II-XII grossly intact, normal gait, no involuntary motions. LABS: Imaging: - Echocardiogram: - Ejection Fraction: 50% - Diastolic function not measured due to atrial fibrillation ASSESSMENT/PLAN: 1. Hypercalcemia (E83.52) 2. Bilateral leg edema (R60.0) 3. Congestive heart failure, unspecified HF chronicity, unspecified heart failure type (HCC) (I50.9) - Noted bilateral leg edema on examination. - Recent echocardiogram showed an ejection fraction of 50%. - Increased furosemide dosage by 40 mg daily for 3 days to manage fluid overload. - Provided an additional 30-day supply of furosemide to be used as needed. - Ordered laboratory tests to assess fluid levels. - Advised patient to monitor and reduce sodium intake. 4. Essential hypertension, benign (I10) - Currently managed with valsartan. - Continue current antihypertensive regimen. FALLS RISK PLAN: The patient would benefit from a concentrated outpatient falls prevention program.Will evaluate and treat functional restrictions and develop a safe home exercise program. Went through therapy for falls FALLS RISK PLAN: Patient is not homebound but has potential to improve their safe mobility. Realistic functional goals are present that support the need for a therapy referral. FALLS RISK PLAN: Multifactorial mobility deficits, and biopsychosocial issues best treated with comprehensive physician assessment. Consultation placed to [facility] to perform further workup and determination of a customized rehabilitation plan. Discussed treatment plan and patient voices understanding. Patient's questions answered appropriately. Medications and potential side effects were discussed and patient voices understanding. Return to the office as scheduled or as needed for worsening/no improvement. Belkys Mcintyre CNP, PRINCIPAL ACCOUNT CLERK [facility] Telephone encounter Note * Telephone Encounter - Belkys Mcintyre APRN.CNP - 07/26/2024 8:00 AM EDT The following approved medication requests have been transmitted electronically. Requested Prescriptions Pending Prescriptions Disp Refills valsartan (DIOVAN) 160 mg tablet 90 tablet 3 Sig: Take 1 tablet by mouth once daily. Belkys Mcintyre APRN.CNP [facility]04-21-2025 Miscellaneous Notes* Telephone Encounter - Belkys Mcintyre APRN.CNP - 07/26/2024 8:00 AM EDT The following approved medication requests have been transmitted electronically. Requested Prescriptions Pending Prescriptions Disp Refills valsartan (DIOVAN) 160 mg tablet 90 tablet 3 Sig: Take 1 tablet by mouth once daily. Belkys Mcintyre APRN.CNP documented in this encounterWayne Hospital03-20-2025 NoteHNO ID: [id number] Author: DAYANNA LEWIS MD Service: ? Author Type: Physician Type: Progress Notes Filed: 06/24/2024 08:58 Note Text: [facility] NOTE Department of Orthopaedics Dayanna Lewis M.D. NAME: Kesha Carmichael [facility] NO.: [id number] DATE: June 24, 2024 Kesha returns for follow-up today for her shoulders. I last saw her 2 years ago. She has noticed increasing symptoms over time in both shoulders. The left shoulder is the more symptomatic of the 2. She notes difficulty with reaching activities, lifting activities, over activities, and symptoms at night. She presents for further discussion on management. PHYSICAL EXAMINATION: Physical examination today of the right shoulder shows evidence of atrophy in the infraspinatus fossa with a well-healed deltopectoral incision. There is no swelling or erythema. Range of motion testing shows passive forward elevation to 150 on the right, compared to 150 on the left. Active forward elevation is to 90-100 on the right, compared to 90-100 on the left. Passive external rotation at the side is to 40 on the right, compared to 40 on the left. Active internal rotation is to the lower thoracic levels on the right, compared to the lower thoracic levels on the left. Strength testing of the rotator cuff shows 3/5 strength with resisted external rotation at the side and 5/5 strength with resisted Ladonna's maneuver on the right. Strength testing of the rotator cuff shows 3/5 strength with resisted external rotation at the side and 5/5 strength with resisted Ladonna's maneuver on the left. There is pain with resisted Ladonna's maneuver. Lag signs are positive with a large external rotation lag sign bilaterally. Belly press testing is negative. Impingement maneuvers are positive. There is pain with stretch of the anterior capsule. There is tenderness to palpation at the glenohumeral joint line. The right and left upper extremity is otherwise grossly neurovascularly intact to testing. RADIOGRAPHIC STUDIES: X-rays of both shoulders taken on June 18, 2024 are available for review and show findings consistent with bilateral rotator cuff tear arthropathy. There is more advanced arthritic change on the right than the left ASSESSMENT: Bilateral rotator cuff tear arthropathy PLAN: I discussed treatment with Kesha in regards to her shoulders. She would like to continue with nonoperative management at this time but has developed increased complaints. We discussed potential cortisone injections today for 1 or both shoulders and she would like to proceed with this. Therefore both the right and left shoulder glenohumeral joint were injected through an anterior approach as detailed below. We discussed follow-up in the future for repeat injection in either shoulder when needed. She agrees with this plan. Large Joint Arthro/Inj: bilateral glenohumerals 06/24/2024 8:55 AM The procedure site was prepped in the usual sterile fashion. Site: bilateral glenohumerals Medications (Right): 40 mg triamcinolone acetonide 40 mg/mL Medications (Left): 40 mg triamcinolone acetonide 40 mg/mL Anesthetics (Right): 4 mL lidocaine (PF) 10 mg/mL (1 %) Anesthetics (Left): 4 mL lidocaine (PF) 10 mg/mL (1 %) Outcome: Tolerated well, no immediate complications Post-injection instructions were reviewed with the patient and the patient voiced understanding of these instructions. Informed Consent Chase Protocol A moment to CARE was completed. SIGN IN Personnel directly involved with the procedure wore the appropriate PPE. Special Equipment: N/A Patient/Surrogate Stated/Verified: Patient name, Date of , Relevant allergies and Intended procedure TIME OUT Relevant labs, photos, and/or imaging studies have been reviewed. Consent documented and matches the intended procedure. Correct side/site marked and visible. Medications required for procedure verified. No fire risk assessment and interventions applicable. No implant(s) inserted. If any questions or concerns arise, She should not hesitate to call. Dayanna Lewis M.D.[facility]03-20-2025 History of Present illness Narrative* Dayanna Lewis MD - 06/24/2024 8:50 AM EDTAssociated Order(s): Large Joint Arthro/Inj: bilateral glenohumerals Post-Procedure Diagnose(s): Rotator cuff tear arthropathy, left; Rotator cuff tear arthropathy, right [facility] NOTE Department of Orthopaedics Dayanna Lewis M.D. NAME: Kesha Curiel [facility] NO.: [id number] DATE: June 24, 2024 Kesha returns for follow-up today for her shoulders. I last saw her 2 years ago. She has noticed increasing symptoms over time in both shoulders. The left shoulder is the more symptomatic of the 2. She notes difficulty with reaching activities, lifting activities, over activities, and symptoms at night. She presents for further discussion on management. PHYSICAL EXAMINATION: Physical examination today of the right shoulder shows evidence of atrophy inthe infraspinatus fossa with a well-healed deltopectoral incision. There is no swelling or erythema. Range of motion testing shows passive forward elevation to 150 on the right, compared to 150 on the left. Active forward elevation is to 90-100 on the right, compared to 90-100 on the left. Passive external rotation at the side is to 40 on the right, compared to 40 on the left. Active internal rotation is to the lower thoracic levels on the right, compared to the lower thoracic levels on the left. Strength testing of the rotator cuff shows 3/5 strength with resisted external rotation at the side and 5/5 strength with resisted Ladonna's maneuver on the right. Strength testing of the rotator cuffshows 3/5 strength with resisted external rotation at the side and 5/5 strength with resisted Ladonna's maneuver on the left. There is pain with resisted Ladonna's maneuver. Lag signs are positive with a large external rotation lag sign bilaterally. Belly press testing is negative. Impingement maneuvers are positive. There is pain with stretch of the anterior capsule. There is tenderness to palpation at the glenohumeral joint line. The right and left upper extremity is otherwise grossly neurovascularly intact to testing. RADIOGRAPHIC STUDIES: X-rays of both shoulders taken on June 18, 2024 are available for review andshow findings consistent with bilateral rotator cuff tear arthropathy. There is more advanced arthritic change on the right than the left ASSESSMENT: Bilateral rotator cuff tear arthropathy PLAN: I discussed treatment with Kesha in regards to her shoulders. She would like to continue with nonoperative management at this time but has developed increased complaints. We discussed potential cortisone injections today for 1 or both shoulders and she would like to proceed with this. Therefore both the right and left shoulder glenohumeral joint were injected through an anterior approach as detailed below. We discussed follow-up in the future for repeat injection in either shoulder when needed. She agrees with this plan. Large Joint Arthro/Inj: bilateral glenohumerals 06/24/2024 8:55 AM The procedure site was prepped in the usual sterile fashion. Site: bilateral glenohumerals Medications (Right): 40 mg triamcinolone acetonide 40 mg/mL Medications (Left): 40 mg triamcinolone acetonide 40 mg/mL Anesthetics (Right): 4 mL lidocaine (PF) 10 mg/mL (1 %) Anesthetics (Left): 4 mL lidocaine (PF) 10 mg/mL (1 %) Outcome: Tolerated well, no immediate complications Post-injection instructions were reviewed with the patient and the patient voiced understanding of these instructions. Informed Consent Chase Protocol A moment to CARE was completed. SIGN IN Personnel directly involved with the procedure wore the appropriate PPE. Special Equipment: N/A Patient/Surrogate Stated/Verified: Patient name, Date of , Relevant allergies and Intended procedure TIME OUT Relevant labs, photos, and/or imaging studies have been reviewed. Consent documented and matches the intended procedure. Correct side/site marked and visible. Medications required for procedure verified. No fire risk assessment and interventions applicable. No implant(s) inserted. If any questions or concerns arise, She should not hesitate to call. Dayanna Lewis M.D. documented in this encounterWayne Hospital03-14-2025 History of Present illness Narrative* Lona Loving, RT(R) - 06/18/2024 1:00 PM EDT Radiology Service Progress Note PATIENT NAME: Kesha Carmichael DATE OF SERVICE: June 18, 2024 TIME: 1:30 PM PATIENT IDENTITY VERIFICATION COMPLETED USING TWO (2) IDENTIFIERS: Name and Date of confirmedby patient verbally. FALL SCREENING: Has the patient had 2 falls in the last year or 1 fall with injury or currently using an Ambulatory Assistive Device (Walker, Cane, Wheelchair, Crutches, etc.)? Yes, Patient High Riskfor Falls What interventions were put in place to prevent falls during this visit? Increased Observations by Caregivers PATIENT GENDER DATA: Assigned female at . status: : No status:NO. PATIENT RELEVANT IMPLANT DATA REVIEWED: Not Applicable PATIENT PRESENTS WITH AN IMPLANTABLE OR ATTACHED TUNNEL ELASTIC OPERATOR ZIGZAG: No RADIOLOGY DEPARTMENT: General X-ray: Exam(s) Completed: Upper Extremity X- Ray(s): Shoulder, AP / TRUE AP bilateral , Y VIEW PERIPHERAL IV DATA: Not applicable SIGNED BY: RT Joann(Charlie) June 18, 2024 1:30 PM documented in this encounterWayne Hospital03-14-2025 NoteHNO ID: [id number] Author: LONA LOVING RT(Charlie) Service: ? Author Type: Technologist Type: Progress Notes Filed: 06/18/2024 13:30 Note Text: Radiology Service Progress Note PATIENT NAME: Kesha Carmichael DATE OF SERVICE: June 18, 2024 TIME: 1:30 PM PATIENT IDENTITY VERIFICATION COMPLETED USING TWO (2) IDENTIFIERS: Name and Date of confirmed by patient verbally. FALL SCREENING: Has the patient had 2 falls in the last year or 1 fall with injury or currently using an Ambulatory Assistive Device (Walker, Cane, Wheelchair, Crutches, etc.)? Yes, Patient High Risk for Falls What interventions were put in place to prevent falls during this visit? Increased Observations by Caregivers PATIENT GENDER DATA: Assigned female at . status: : No status: NO. PATIENT RELEVANT IMPLANT DATA REVIEWED: Not Applicable PATIENT PRESENTS WITH AN IMPLANTABLE OR ATTACHED TUNNEL ELASTIC OPERATOR ZIGZAG: No RADIOLOGY DEPARTMENT: General X-ray: Exam(s) Completed: Upper Extremity X-Ray(s): Shoulder, AP / TRUE AP bilateral , Y VIEW PERIPHERAL IV DATA: Not applicable SIGNED BY: RT Joann(Charlie) June 18, 2024 1:30 [facility]03-03-2025 NoteHNO ID: [id number] Author: BLOSSOM WHITE, EDWIN Service: ? Author Type: Physical Therapist Type: Progress Notes Filed: 06/08/2024 14:51 Note Text: Episode Visit Count: 10 Therapist That Will Accept/Oversee The Plan Of Care: Blossom White Start of Care Date: 03/29/24 Onset Date: (for many many years) Plan of Care Certification Date: 05/07/24 Next Certification Due Date: 06/18/24 [facility] THERAPY PHYSICAL THERAPY PROGRESS REPORT PLAN OF CARE UPDATE: Assessment: Kesha Carmichael demonstrates improvements in standing and walking. The patient has progressed toward goals. Patient continues to present with impairments in ADL's, gait, independence in exercise, joint mobility, overall function, patient reported outcome measures, and symptom management that interfere with standing, walking (Pt. states she is able stand and walk for as long as she need) . Current prognosis is . The patient will benefit from continued skilled therapy services to meet the updated goals for this plan of care as noted below. Goals for Episode of Care: established 03/29/24 Goals updated on 05/07/2024. Goals updated on 06/07/2024. Patient will report no falls. -- MET Patient will demonstrate independent and proper use of assisstive device to allow for improved walking quality and safety therefore reducing the risk of falls. -- MET Patient will decrease pain rating by 2 points to meet Minimal Clinical Important Difference for number pain scale rating. -- MET Perform walking to her mail box (10-15 minutes) with decreased report of symptoms / pain. -- PROGRESSING, has not attempted it due to the weather and fear of falling on ice. Patient will be able to corect postrual deviations independently in order to allow for normal mechanics and to decrease current pain . -- PARTIALLY MET, some limitation due to L shoulder pain Patient Goals: reduce back pain and reduce fall risk -- MET NEW GOAL -- FGA 19/30 score with use of standard cane. -- MET Patient Goals: reduce back pain and reduce fall risk Planned Interventions, Frequency, and Duration: , Patient to be seen for PLAN FOR NEXT VISIT: pt. requests that chart is held x1 mo. She needs to address her shoulder pain with surgeon. SUBJECTIVE: Pt. denies falls since last visit. Soreness from fall in [place]. Pt. will see physician soon regarding her L shoulder and possibly get it replaced. Pt. would like to hold PT for a couple weeks and see how she does.. Patient Goals: reduce back pain and reduce fall risk Functional Limitations: standing, walking (Pt. states she is able stand and walk for as long as she need) Pain: Pain Pain Level: 0 Pain Location: Back Description: Aching Post Treatment Pain Post Treatment Pain Level: No Change Post Treatment Pain Location: Back PROMIS Scales 05/18/2024 04/23/2024 03/29/2024 Higher is Better Phys Func - T Score 40 (mild dysfunction) 37 (moderate dysfunction) 38 (moderate dysfunction) Phys Func - Percentile 16 10 12 Self-Eff Symptom - T Score 37 (Low) 38 (Low) 40 (Average) Self-Eff Symptom - Percentile 10 12 16 T-scores: mean of general population = 50. 5 points is clinically meaningfully difference Percentiles provide an indication of how the patient's score ranks in relation to the general population. Higher percentile rankings indicate better function/quality of life. 50th percentile is the average of the general population and indicates half of respondents had a worse score. OBJECTIVE MEASURES WITH LEVEL OF FUNCTION: Functional Gait Assessment Gait level surface : 2 - Mild impairment- walks 20' uses assist device, slower speed, mild gait deviation Change in gait speed: 2 - Mild impairment- is able to change speed but demonstrates mild gait deviations or no gait deviations but unable to achieve a significant change in velocity, or uses an assistive device Gait and horizontal head turns: 2 - Mild impairment- performs R/L head turns smoothly with slight change in gait velocity, minor disruption to smooth gait path or uses assistive device Gait and vertical head turns: 2 - Mild impairment- performs up/ down head turns smoothly with slight change in gait velocity, minor disruption to smooth gait path or uses assistive device Gait and pivot: 3 - Normal- pivot turn safely within 3 sec, stops quickly, no loss of balance Step over obstacle: 3 - Normal- is able to steop over box without changing speed, no evidence of imbalance Gait with narrow base of support : 2 - Mild impairment- ambulates 7-9 steps Gait with eyes closed : 2 - Mild impairment- walks 20' uses assist device, slower speed, mild gait deviation, deviates 6-10 outside of 12 walkway Ambulates backward : 2 - Mild impairment- walks 20', uses assist device, slower speed, mild gait deviations, deviates 6-10 outside 12 walkway Steps: 1 - Moderate impairment- 2 feet to a stair, must use rail Functional Gait Asse (more content not included)...[facility] 06-07-2024 History of Present illness Narrative* Blossom White, PT - 06/07/2024 10:12 AM EST Images from the original note were not included. Episode Visit Count: 10 Therapist That Will Accept/Oversee The Plan Of Care: Blossom White Start of Care Date: 03/29/24 Onset Date: (for many many years) Plan of Care Certification Date: 05/07/24 Next Certification Due Date: 06/18/24 [facility] PHYSICAL THERAPY PROGRESS REPORT PLAN OF CARE UPDATE: Assessment: Kesha Carmichael demonstrates improvements in standing and walking. The patient has progressed toward goals. Patient continues to present with impairments in ADL's, gait, independence in exercise, joint mobility, overall function, patient reported outcome measures, and symptom management that interfere with standing, walking (Pt. states she is able stand and walk for as long as she need) . Currentprognosis is . The patient will benefit from continued skilled therapy services to meet the updatedgoals for this plan of care as noted below. Goals for Episode of Care: established 03/29/24 Goals updated on 05/07/2024. Goals updated on 06/07/2024. Patient will report no falls. -- MET Patient will demonstrate independent and proper use of assisstive device to allow for improved walking quality and safety therefore reducing the risk of falls. -- MET Patient will decrease pain rating by 2 points to meet Minimal Clinical Important Difference for number pain scale rating. -- MET Perform walking to her mail box (10-15 minutes) with decreased report of symptoms / pain. -- PROGRESSING, has not attempted it due to the weather and fear of falling on ice. Patient will be able to corect postrual deviations independently in order to allow for normal mechanics and to decrease current pain . -- PARTIALLY MET, some limitation due to L shoulder pain Patient Goals: reduce back pain and reduce fall risk -- MET NEW GOAL -- FGA score with use of standard cane. -- MET Patient Goals: reduce back pain and reduce fall risk Planned Interventions, Frequency, and Duration: , Patient to be seen for PLAN FOR NEXT VISIT: pt. requests that chart is held x1 mo. She needs to address her shoulder pain with surgeon. SUBJECTIVE: Pt. denies falls since last visit. Soreness from fall in [place]. Pt. will see physician soon regarding her L shoulder and possibly get it replaced. Pt. would like to hold PT for a couple weeks and see how she does.. Patient Goals: reduce back pain and reduce fall risk Functional Limitations: standing, walking (Pt. states she is able stand and walk for as long as sheneed) Pain: Pain Pain Level: 0 Pain Location: Back Description: Aching Post Treatment Pain Post Treatment Pain Level: No Change Post Treatment Pain Location: Back PROMIS Scales 05/18/2024 04/23/2024 03/29/2024 Higher is Better Phys Func - T Score 40 (mild dysfunction) 37 (moderate dysfunction) 38 (moderate dysfunction) Phys Func - Percentile 16 10 12 Self-Eff Symptom - T Score 37 (Low) 38 (Low) 40 (Average) Self-Eff Symptom - Percentile 10 12 16 T-scores: mean of general population = 50. 5 points is clinically meaningfully difference Percentiles provide an indication of how the patient's score ranks in relation to the general population. Higher percentile rankings indicate better function/quality of life. 50th percentile is the average of the general population and indicates half of respondents had a worse score. OBJECTIVE MEASURES WITH LEVEL OF FUNCTION: Functional Gait Assessment Gait level surface : 2 - Mild impairment- walks 20' uses assist device, slower speed, mild gait deviation Change in gait speed: 2 - Mild impairment- is able to change speed but demonstrates mild gait deviations or no gait deviations but unable to achieve a significant change in velocity, or uses an assistive device Gait and horizontal head turns: 2 - Mild impairment- performs R/L head turns smoothly with slight change in gait velocity, minor disruption to smooth gait path or uses assistive device Gait and vertical head turns: 2 - Mild impairment- performs up/ down head turns smoothly with slight change in gait velocity, minor disruption to smooth gait path or uses assistive device Gait and pivot: 3 - Normal- pivot turn safely within 3 sec, stops quickly, no loss of balance Step over obstacle: 3 - Normal- is able to steop over box without changing speed, no evidence of imbalance Gait with narrow base of support : 2 - Mild impairment- ambulates 7-9 steps Gait with eyes closed : 2 - Mild impairment- walks 20' uses assist device, slower speed, mild gait deviation, deviates 6-10 outside of 12 walkway Ambulates backward : 2 - Mild impairment- walks 20', uses assist device, slower speed, mild gait deviations, deviates 6-10 outside 12 walk[address] Steps: 1 - Moderate impairment- 2 feet to a stair, must use rail Functional Gait Assessment Total : 21 TREATMENT: Therapeutic Exercise: 1: Scifit stepper seat 12, level 2, 1:1 throughout, subjective collected 5 min. Skilled Intervention: Patient was educated in proper exercise technique and purpose for exercises. Skilled judgment was used in selection of appropriate interventions. Provided written instruction for home exercise program to facilitate proper performance and compliance. Correct performance of therapeutic exercises was facilitated with verbal, visual, and tactile cuing. Educated patient on rationale for performing exercises in regards to decreasing fatigue , increase ease of ADL, and ROM and function . Patient education as noted. Neuromuscular Re-Education: 1: FGA with SC Skilled Intervention: Skilled judgment used to assess appropriate program for balance and coordination activity. Education in proprioceptive/kinesthetic awareness during dynamic activities. Ensured patient safety with use of gait belt Reviewed and educated patient on additions/changes for home program as noted above with an (*). Patient education as noted. Gait Training: Stair Trainin 3x, x2 UE support progressing to x1 UE support HR with reciprocal pattern 4x6 steps Skilled Intervention: Patient was provided stand by assist during pre-gait/gait training to preventfalls and insure safety. Gait belt utilized during session for safety. Self-Senior Care Management: 1: discussed holding chart due to possible upcoming shoulder surgery. 2: discussed using a SC at all times should pt. have UE surgery . 3: discussed FGA score has improved and therefore pt. is at a lower rall risk than prior Skilled Intervention: Skilled judgment in the selection of proper modification for activity of daily living/home management based on clinical presentation, deficits, and needs. Reviewed patient specific diagnosis in relation to activities of daily living/home management. Activity progression based on professional judgement. Billing Therapeutic Exercise Treatment Minutes: 5 Neuromuscular Re-Education Treatment Minutes: 20 Self-Care/Home Management Treatment Minutes: 10 Gait Training Treatment Minutes: 5 Skilled Treatment Time Minutes (timed and untimed codes): 40 Total Session Time (minutes): 40 Session Start Time : 1012 Session Stop Time : 1052 Blossom White PT [facility] Telephone encounter Note * Telephone Encounter - Areli Moore MA - 05/31/2024 1:16 PM EST Pt notified of results via [employer]. Areli Moore Ma [facility]02-[facility] Miscellaneous Notes* Telephone Encounter - Areli Moore MA - 05/31/2024 1:16 PM EST Pt notified of results via [employer]. Areli Moore Ma * Telephone Encounter - Areli Moore MA - 05/31/2024 1:16 PM EST ----- Message from Belkys Mcintyre sent at 05/31/2024 8:42 AM EST ----- Nothing acute on x-ray. Some arthritis of the lumbar spine and mild arthritis in the sacroiliac joints. * Result Encounter Note - Belkys Mcintyre APRN.CNP - 05/31/2024 8:42 AM EST Nothing acute on x-ray. Some arthritis of the lumbar spine and mild arthritis in the sacroiliac joints. [facility] Telephone encounter Note * Telephone Encounter - Areli Moore MA - 05/31/2024 1:16 PM EST ----- Message from Belkys Mcintyre sent at 05/31/2024 8:42 AM EST ----- Nothing acute on x-ray. Some arthritis of the lumbar spine and mild arthritis in the sacroiliac joints. [facility]02-[facility] Progress note* Result Encounter Note - Belkys Mcintyre APRN.CNP - 05/31/2024 8:42 AM EST Nothing acute on x-ray. Some arthritis of the lumbar spine and mild arthritis in the sacroiliac joints. [facility] Progress note* Result Encounter Note - Belkys Mcintyre APRN.CNP - 05/28/2024 4:42 PM EST Urine for microalbumin creatinine ratio has improved showing improved. History of diabetic nephropathy. Hemoglobin A1c 6.2%. Prediabetes is stable. Ionized calcium is slightly elevated but vitamin D level is therapeutic. Will monitor. All other labs look good. Cholesterol levels are great. [facility]02-21-20[facility] Miscellaneous Notes* Result Encounter Note - Belkys Mcintyre APRN.CNP - 05/28/2024 4:42 PM EST Urine for microalbumin creatinine ratio has improved showing improved. History of diabetic nephropathy. Hemoglobin A1c 6.2%. Prediabetes is stable. Ionized calcium is slightly elevated but vitamin D level is therapeutic. Will monitor. All other labs look good. Cholesterol levels are great. [facility] in [facility]Way[facility] History of Present illness Narrative* Steve Riggs, RT(R) - 05/27/2024 9:50 AM EST Radiology Service Progress Note PATIENT NAME: Kesha Carmichael DATE OF SERVICE: May 27, 2024 TIME: 9:31 AM PATIENT IDENTITY VERIFICATION COMPLETED USING TWO (2) IDENTIFIERS: Name and Date of confirmedby patient verbally. FALL SCREENING: Has the patient had 2 falls in the last year or 1 fall with injury or currently using an Ambulatory Assistive Device (Walker, Cane, Wheelchair, Crutches, etc.)? Yes, Patient High Riskfor Falls What interventions were put in place to prevent falls during this visit? Offered Assistance with Transfers/Clothing and Instructed Patient to Remain Seated (Not on Exam Table) Until Exam PATIENT GENDER DATA: Assigned female at . status: : No status:NO. PATIENT RELEVANT IMPLANT DATA REVIEWED: Not Applicable PATIENT PRESENTS WITH AN IMPLANTABLE OR ATTACHED TUNNEL ELASTIC OPERATOR ZIGZAG: No RADIOLOGY DEPARTMENT: General X-ray: Exam(s) Completed: Pelvis X-Ray: Pelvis with Hip Right PERIPHERAL IV DATA: Not applicable SIGNED BY: RT Gwen(R) May 27, 2024 9:31 AM documented in this encounterWay[facility]02-20-2025 NoteHNO ID: [id number] Author: STEVE RIGGS RT(R) Service: Radiology Author Type: Technologist Type: Progress Notes Filed: 05/27/2024 09:44 Note Text: Radiology Service Progress Note PATIENT NAME: Kesha Carmichael DATE OF SERVICE: May 27, 2024 TIME: 9:31 AM PATIENT IDENTITY VERIFICATION COMPLETED USING TWO (2) IDENTIFIERS: Name and Date of confirmed by patient verbally. FALL SCREENING: Has the patient had 2 falls in the last year or 1 fall with injury or currently using an Ambulatory Assistive Device (Walker, Cane, Wheelchair, Crutches, etc.)? Yes, Patient High Risk for Falls What interventions were put in place to prevent falls during this visit? Offered Assistance with Transfers/Clothing and Instructed Patient to Remain Seated (Not on Exam Table) Until Exam PATIENT GENDER DATA: Assigned female at . status: : No status: NO. PATIENT RELEVANT IMPLANT DATA REVIEWED: Not Applicable PATIENT PRESENTS WITH AN IMPLANTABLE OR ATTACHED TUNNEL ELASTIC OPERATOR ZIGZAG: No RADIOLOGY DEPARTMENT: General X-ray: Exam(s) Completed: Pelvis X-Ray: Pelvis with Hip Right PERIPHERAL IV DATA: Not applicable SIGNED BY: RT Gwen(R) May 27, 2024 9:31 [facility]02-20-2025 Instructions* Patient Instructions* Belkys Mcintyre APRN.CNP - 05/27/2024 9:07 AM EST - CLOTRIMAZOLE-BETAMETHASONE 1 %-0.05 % LOTION 2 x day for 14 days to right breast. Send message in2 weeks. If not resolved completely, send to breast care center - XR HIP GENERAL 3V PELV/AP/LAT RIGHT - Get Labs today documented in this encounterWay[facility] Hospital02-20-2025 NoteHNO ID: [id number] Author: BELKYS MCINTYRE APRN.CNP Service: ? Author Type: Nurse Practitioner Type: Progress Notes Filed: 05/27/2024 09:12 Note Text: This is a 79 year old female who presents today with: Patient presents with: Fall: Fell while in [place] one week ago HISTORY OF PRESENT ILLNESS: Kesha Carmichael is a 79 year old female. Patient presents with: Fall: Fell while in [place] one week ago While in [place] visiting sister, there was a mishap with getting into the car and struck right hip but moved to buttock. Now buttock sore. Getting better. Incident occurred on 05/17. PT thought this needed checked out before resuming PT. Able to walk with quad cane. No ecchymosis. Feels like a catch or twist. No problem with bowels or bladder. 0/10 just siting If walking and has to twist a little- 4/10 (quick twitch) Right nipple itches terribly Under right breast red, no swelling Nipple inverted. Areola itching, no orange peel appearance Not due for mammogram Hx of breast cancer Left lower ext. Lesion improved. Scabbed area. Grape sized soft hematoma. No redness or heat. PAST MEDICAL HISTORY: PAST MEDICAL HISTORY Diagnosis Date Abnormal EKG afib, inf [place] age undetermined Atrial fibrillation (HCC) Breast cancer (HCC) 03/2018 left breast Closed fracture of right distal radius 09/10/2021 Congestive heart failure (HCC) 09/24/2018 Epistaxis balloon out osteo History of colonoscopy [address] Stoney Hernandez , normal HTN (hypertension) Hyperglycemia Knee pain, chronic Lt Migraines stopped when she retired Normal cardiac stress test 2004 Dr. Romero Osteoarthritis Seasonal allergies Type 2 diabetes mellitus without complication, without long-term current use of insulin (HCC) 04/11/2016 PAST SURGICAL HISTORY Procedure Laterality Date ARTHRP KNE CONDYLEANDPLATU MEDIALANDLAT COMPARTMENTS 2011 Knee replacement, total, right ARTHRP KNE CONDYLEANDPLATU MEDIALANDLAT COMPARTMENTS Knee replacement, total, left BIOPSY BREAST OPEN INCISIONAL 2003 Bx of breast, incisional left LAPAROSCOPIC APPENDECTOMY 02/28/10 LIG/TRNSXJ FLP TUBE ABDL/VAG APPR UNI/BI 1973 Tubal ligation PAST SURGICAL HISTORY OF Left 03/27/2018 biopsy and lumpectomy left breast breast with lymph node removal x 4 PAST SURGICAL HISTORY OF Right shoulder surgery PICC LINE INSERT/CONSULT 03/09/2020 TONSILLECTOMY AND ADENOIDECTOMY T/A (under age 11 years) TOTAL ABDOMINAL HYSTERECT W/WO RMVL TUBE OVARY 1974 Hysterectomy, DANYELLE ALLERGIES Adhesive Tape-Silicones, Anastrozole, Aquacel-Ag [Silver-Hydrocolloid Dressing], Azithromycin, Exemestane, and Lisinopril MEDICATIONS Current Outpatient Medications Medication Sig metoprolol succinate ER (TOPROL XL) 50 mg 24 hr tablet Take 1 tablet by mouth once daily. rivaroxaban (XARELTO) 20 mg tablet Take 1 tablet by mouth daily with dinner. calcium carbonate/vitamin D3 (CALCIUM WITH VITAMIN D3 ORAL) Take by mouth. amoxicillin (AMOXIL) 500 mg capsule Take four capsules 20 minutes before procedure magnesium oxide 400 mg magnesium tab Take 400 mg by mouth once daily. melatonin 1 mg tablet Take 2 mg by mouth daily at bedtime. POTASSIUM ORAL Take 1 capsule by mouth once daily. valsartan (DIOVAN) 160 mg tablet Take 1 tablet by mouth once daily. furosemide (LASIX) 40 mg tablet Take 1 tablet by mouth once daily. vit C,F-Ma-fujvd-lutein-zeaxan (PRESERVISION AREDS-2) 250-90-40-1 mg Take 1 capsule by mouth twice daily with meals. Cholecalciferol, Vitamin D3, 50 mcg (2,000 unit) cap Take 1 capsule by mouth once daily. thiamine HCl (VITAMIN B-1 ORAL) Take 250 mg by mouth once daily. multivitamins(DAILY MULTIVITAMIN TAB) Take one(1) tablet daily. No current facility-administered medications for this visit. FAMILY HISTORY Problem Relation Age of Onset Breast Cancer Mother Hypertension Mother Hypertension Father Heart Father [place] Diabetes Father Kidney Disease Sister Heart disease Sister Cancer Sister breast COPD Sister Hypertension Sister Macular Degen Sister Arthritis Sister Cancer Sister breast Hypertension Sister Macular Degen Sister Diabetes Sister Tremor Sister Hypertension Sister Cancer Sister uterine,breast Blood Clots Sister Aneurysm Brother Hypertension Brother Diabetes Brother other (MVA) Brother Cancer Daughter uterine Hypertension Daughter Hypertension Son Hypertension Son Breast Cancer Maternal Grandmother Breast Cancer Other niece x3 Colon Cancer Other nephew Stroke Paternal Grandmother No Known Problems Maternal Grandfather in his 70's other (TB) Paternal Grandfather Social History Tobacco Use Smoking status: Never Smokeless tobacco: Never Vaping Use Vaping status: Never Used Substance Use Topics Alcohol use: No Drug use: No EXAM: BP 132/80 Pulse 61 Temp 36.3 ?C (97.4 ?F) (Right Tympanic) Wt 93 kg (205 lb) Sp (more content not included)...[facility]02-[facility] History of Present illness Narrative* Belkys Mcintyre, FITNESS CONSULTANT.[facility] - 05/27/2024 8:41 AM EST This is a 79 year old female who presents today with: Patient presents with: Fall: Fell while in [place] one week ago HISTORY OF PRESENT ILLNESS: Kesha Carmichael is a 79 year old female. Patient presents with: Fall: Fell while in [place] one week ago While in [place] visiting sister, there was a mishap with getting into the car and struck right hip but moved to buttock. Now buttock sore. Getting better. Incident occurred on 05/17. PT thought this needed checked out before resuming PT. Able to walk with quad cane. No ecchymosis. Feels like a catch or twist. No problem with bowels or bladder. 0/10 just siting If walking and has to twist a little- 4/10 (quick twitch) Right nipple itches terribly Under right breast red, no swelling Nipple inverted. Areola itching, no orange peel appearance Not due for mammogram Hx of breast cancer Left lower ext. Lesion improved. Scabbed area. Grape sized soft hematoma. No redness or heat. PAST MEDICAL HISTORY: PAST MEDICAL HISTORY Diagnosis Date Abnormal EKG afib, inf [place] age undetermined Atrial fibrillation (HCC) Breast cancer (HCC) 03/2018 left breast Closed fracture of right distal radius 09/10/2021 Congestive heart failure (HCC) 09/24/2018 Epistaxis balloon out osteo History of colonoscopy [address] Stoney Hernandez , normal HTN (hypertension) Hyperglycemia Knee pain, chronic Lt Migraines stopped when she retired Normal cardiac stress test 2004 Dr. Romero Osteoarthritis Seasonal allergies Type 2 diabetes mellitus without complication, without long-term current use of insulin ([facility]) 04/11/2016 PAST SURGICAL HISTORY Procedure Laterality Date ARTHRP KNE CONDYLE&PLATU MEDIAL&LAT COMPARTMENTS 2011 Knee replacement, total, right ARTHRP KNE CONDYLE&PLATU MEDIAL&LAT COMPARTMENTS Knee replacement, total, left BIOPSY BREAST OPEN INCISIONAL 2004 Bx of breast, incisional left LAPAROSCOPIC APPENDECTOMY 02/28/10 LIG/TRNSXJ FLP TUBE ABDL/VAG APPR UNI/BI 1972 Tubal ligation PAST SURGICAL HISTORY OF Left 03/27/2018 biopsy and lumpectomy left breast breast with lymph node removal x 4 PAST SURGICAL HISTORY OF Right shoulder surgery PICC LINE INSERT/CONSULT 03/09/2020 TONSILLECTOMY & ADENOIDECTOMY <AGE 11 T/A (under age 11 years) TOTAL ABDOMINAL HYSTERECT W/WO RMVL TUBE OVARY 1974 Hysterectomy, DANYELLE ALLERGIES Adhesive Tape-Silicones, Anastrozole, Aquacel-Ag [Silver-Hydrocolloid Dressing], Azithromycin, Exemestane, and Lisinopril MEDICATIONS Current Outpatient Medications Medication Sig metoprolol succinate ER (TOPROL XL) 50 mg 24 hr tablet Take 1 tablet by mouth once daily. rivaroxaban (XARELTO) 20 mg tablet Take 1 tablet by mouth daily with dinner. calcium carbonate/vitamin D3 (CALCIUM WITH VITAMIN D3 ORAL) Take by mouth. amoxicillin (AMOXIL) 500 mg capsule Take four capsules 20 minutes before procedure magnesium oxide 400 mg magnesium tab Take 400 mg by mouth once daily. melatonin 1 mg tablet Take 2 mg by mouth daily at bedtime. POTASSIUM ORAL Take 1 capsule by mouth once daily. valsartan (DIOVAN) 160 mg tablet Take 1 tablet by mouth once daily. furosemide (LASIX) 40 mg tablet Take 1 tablet by mouth once daily. vit C,X-Xi-gjlww-lutein-zeaxan (PRESERVISION AREDS-2) 250-90-40-1 mg Take 1 capsule by mouth twice daily with meals. Cholecalciferol, Vitamin D3, 50 mcg (2,000 unit) cap Take 1 capsule by mouth once daily. thiamine HCl (VITAMIN B-1 ORAL) Take 250 mg by mouth once daily. multivitamins(DAILY MULTIVITAMIN TAB) Take one(1) tablet daily. No current facility-administered medications for this visit. FAMILY HISTORY Problem Relation Age of Onset Breast Cancer Mother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 Therapeutic activities (58509), Self-shelter management (23590), Gait Training (98483) PLAN FOR NEXT VISIT: Pt. leaves for [place] for a week on Friday and will return for PT visits SUBJECTIVE: The small of her back is bothering her today despite reporting that her back had improved last visit. She almost forgot her cane and had to go back home and get it before she arrived. SHewould like to continue to work on her balance.. Patient Goals: reduce back pain and reduce fall risk Functional Limitations: standing, walking (pt. can stand for about 10 minutes) Prior Level of Function: Independent without limitations Pain: Pain Pain Level: 5 Pain Location: Back Description: Aching Post Treatment Pain Post Treatment Pain Location: Back PROMIS Scales 04/23/2024 03/29/2024 02/19/2021 Higher is Better Phys Func - T Score 37 (moderate dysfunction) 38 (moderate dysfunction) 36 (moderate dysfunction) Phys Func - Percentile 10 12 8 Self-Eff Symptom - T Score 38 (Low) 40 (Average) 41 (Average) Self-Eff Symptom - Percentile 12 16 18 T-scores: mean of general population = 50. 5 points is clinically meaningfully difference Percentiles provide an indication of how the patient's score ranks in relation to the general population. Higher percentile rankings indicate better function/quality of life. 50th percentile is the average of the general population and indicates half of respondents had a worse score. OBJECTIVE MEASURES WITH LEVEL OF FUNCTION: Other Repeated Test Movements - Lumbar RFISit / Symptoms During: decreases RFISit / Symptoms After: better Gait Gait: Modified Independent Gait Distance (feet): 50 Gait Device: Cane Gait Deviations: General Deviations General Deviations/Observations: Shuffling Gait, Step length decreased, Flexed trunk posture, Lateral sway increased, Lexi decreased, Trunk Control Decreased Functional Gait Assessment Gait level surface : 1 - Moderate impairment- walks 20', slow speed, abnormal gait pattern, evidence for imbalance Change in gait speed: 2 - Mild impairment- is able to change speed but demonstrates mild gait deviations or no gait deviations but unable to achieve a significant change in velocity, or uses an assistive device Gait and horizontal head turns: 1 - Moderate impairment- performs R/L head turns with moderate change in gait velocity, slows down, staggers but recovers, can continue to walk Gait and vertical head turns: 1 - Moderate impairment- performs R/L head turns with moderate changein gait velocity, slows down, staggers but recovers, can continue to walk Gait and pivot: 1 - Moderate impairment- turns slowly, requires verbal cueing, requires several small steps following turn and stop Step over obstacle: 1 - Moderate impairment- is able to step over box, but must stop then step over, may require verbal cueing Gait with narrow base of support : 0 - Severe impairment- ambulates less than 4 steps heel to toe or cannot perform without assistance Gait with eyes closed : 1 - Moderate impairment- walks 20', slow speed, abnormal gait pattern, evidence for imbalance, deviates 10-15 [address], requires more than 9 sec to ambulate 20 Ambulates backward : 2 - Mild impairment- walks 20', uses assist device, slower speed, mild gait deviations, deviates 6-10 outside 12 [address] Steps: 1 - Moderate impairment- 2 feet to a stair, must use rail Functional Gait Assessment Total : 11 TREATMENT: Therapeutic Exercise: 1: Scifit stepper seat 15, level 2, 1:1 throughout, subjective collected 5 min. 2: seated 85 cm physioball lumbar flexion AAROM 4x10 3: seated lumbar flexion 2x10 Skilled Intervention: Patient was educated in proper exercise technique and purpose for exercises. Skilled judgment was used in selection of appropriate interventions. Correct performance of therapeutic exercises was facilitated with verbal, visual, and tactile cuing. Educated patient on rationale for performing exercises in regards to decreasing fatigue , increase ease of ADL, and ROM and function . Patient education as noted. Self-Senior Care Management: 1: discussed purpose of lumbar flexion directional preference exercises- advised pt. to use for self management of symptoms Skilled Intervention: Skilled judgment in the selection of proper modification for activity of daily living/home management based on clinical presentation, deficits, and needs. Provided written instruction for activities of daily living techniques to facilitate proper performance and compliance. Reviewed patient specific diagnosis in relation to activities of daily living/home management. Activity progression based on professional judgement. Moderate verbal cues for maintaining neutral spine alignment. Correct performance of home program was facilitated with verbal, visual, and tactile cueing. Billing Therapeutic Exercise Treatment Minutes: 15 Neuromuscular Re-Education Treatment Minutes: 20 Self-Care/Home Management Treatment Minutes: 5 Skilled Treatment Time Minutes (timed and untimed codes): 40 Total Session Time (minutes): 40 Session Start Time : 958 Session Stop Time : 1039 Blossom White [facility] NoteHNO ID: [id number] Author: BLOSSOM WHITE PT Service: ? Author Type: Physical Therapist Type: Progress Notes Filed: 05/07/2024 10:46 Note Text: Episode Visit Count: 6 Therapist That Will Accept/Oversee The Plan Of Care: Blossom White Start of Care Date: 03/29/24 Onset Date: (for many many years) Plan of Care Certification Date: 05/07/24 Next Certification Due Date: 06/18/24 REHABILITATION AND SPORTS THERAPY PHYSICAL THERAPY PROGRESS REPORT PLAN OF CARE UPDATE: Assessment: Kesha Carmichael demonstrates improvements in reduced low back pain. The patient has progressed toward goals. Patient continues to present with impairments in ADL's, gait, independence in exercise, joint mobility, overall function, patient reported outcome measures, posture, range of motion, and symptom management that interfere with standing, walking (pt. can stand for about 10 minutes) . Current prognosis is Good due to: good support system/ coping skills, current objective clinical presentation . The patient will benefit from continued skilled therapy services to meet the updated goals for this plan of care as noted below. Goals for Episode of Care: established 03/29/24 Goals updated on 05/07/2024. Patient will report no falls. -- MET Patient will demonstrate independent and proper use of assisstive device to allow for improved walking quality and safety therefore reducing the risk of falls. -- MET Patient will decrease pain rating by 2 points to meet Minimal Clinical Important Difference for number pain scale rating. -- PROGRESSING Perform walking to her mail box (10-15 minutes) with decreased report of symptoms / pain. -- PROGRESSING, has not attempted it due to the weather and fear of falling on ice. Patient will be able to corect postrual deviations independently in order to allow for normal mechanics and to decrease current pain . -- PROGRESSING Patient Goals: reduce back pain and reduce fall risk -- PROGRESSING NEW GOAL -- FGA / score with use of standard cane. Time Frame for Goals and Treatment : 06/18/24 Patient Goals: reduce back pain and reduce fall risk Planned Interventions, Frequency, and Duration: 1x/week, 6 weeks Total Number of Visits Planned: 6 Patient to be seen for Neuromuscular re-education (72630), Therapeutic exercise (73778), Manual therapy (62459), Therapeutic activities (77036), Self-shelter management (42259), Gait Training (83641) PLAN FOR NEXT VISIT: Pt. leaves for [place] for a week on Friday and will return for PT visits SUBJECTIVE: The small of her back is bothering her today despite reporting that her back had improved last visit. She almost forgot her cane and had to go back home and get it before she arrived. SHe would like to continue to work on her balance.. Patient Goals: reduce back pain and reduce fall risk Functional Limitations: standing, walking (pt. can stand for about 10 minutes) Prior Level of Function: Independent without limitations Pain: Pain Pain Level: 5 Pain Location: Back Description: Aching Post Treatment Pain Post Treatment Pain Location: Back PROMIS Scales 04/23/2024 03/29/2024 02/19/2021 Higher is Better Phys Func - T Score 37 (moderate dysfunction) 38 (moderate dysfunction) 36 (moderate dysfunction) Phys Func - Percentile 10 12 8 Self-Eff Symptom - T Score 38 (Low) 40 (Average) 41 (Average) Self-Eff Symptom - Percentile 12 16 18 T-scores: mean of general population = 50. 5 points is clinically meaningfully difference Percentiles provide an indication of how the patient's score ranks in relation to the general population. Higher percentile rankings indicate better function/quality of life. 50th percentile is the average of the general population and indicates half of respondents had a worse score. OBJECTIVE MEASURES WITH LEVEL OF FUNCTION: Other Repeated Test Movements - Lumbar RFISit / Symptoms During: decreases RFISit / Symptoms After: better Gait Gait: Modified Independent Gait Distance (feet): 50 Gait Device: Cane Gait Deviations: General Deviations General Deviations/Observations: Shuffling Gait, Step length decreased, Flexed trunk posture, Lateral sway increased, Lexi decreased, Trunk Control Decreased Functional Gait Assessment Gait level surface : 1 - Moderate impairment- walks 20', slow speed, abnormal gait pattern, evidence for imbalance Change in gait speed: 2 - Mild impairment- is able to change speed but demonstrates mild gait deviations or no gait deviations but unable to achieve a significant change in velocity, or uses an assistive device Gait and horizontal head turns: 1 - Moderate impairment- performs R/L head turns with moderate change in gait velocity, slows down, staggers but recovers, can continue to walk Gait and vertical head turns: 1 - Moderate impairment- performs R/L head turns with moderate change in gait velocity, slows down, staggers but recovers, ca (more content not included)...[facility]01-27-[facility]25 NoteHNO ID: [id number] Author: BLOSSOM WHITE, PT Service: ? Author Type: Physical Therapist Type: Progress Notes Filed: 05/03/2024 09:24 Note Text: Episode Visit Count: 5 Therapist That Will Accept/Oversee The Plan Of Care: Bolssom White Start of Care Date: 03/29/24 Onset Date: (for many many years) Plan of Care Certification Date: 03/29/24 Next Certification Due Date: 05/10/24 REHABILITATION AND SPORTS THERAPY PHYSICAL THERAPY TREATMENT NOTE ASSESSMENT: Kesha Carmichael tolerated the session with fatigue. She demonstrated difficulty with reaching overhead without resistance for balance training, so this was modified to standing trunk extension on firm and foam surfaces without UE invovelment. The patient will continue to benefit from ongoing skilled physical therapy to progress toward set goals. PLAN FOR NEXT VISIT: PN 05/07/24, continue PT to prioritize balance, LBP has much improved. SUBJECTIVE: Pt. says her back is better but her balance is not what she thinks it should be. She provides the example that she was reaching up to hang curtains and caught herself from falling by grabbing a cart nearby. Patient Goals: reduce back pain and reduce fall risk Functional Limitations: standing, walking Prior Level of Function: Independent without limitations Pain: Pain Pain Level: 0 Pain Location: Leg - Left Description: Aching Post Treatment Pain Post Treatment Pain Level: No Change Post Treatment Pain Location: Back OBJECTIVE MEASURES WITH LEVEL OF FUNCTION: TREATMENT: Therapeutic Exercise: 1: Scifit stepper seat 15, level 2, 1:1 throughout, subjective collected 5 min. 2: seated in chair, fwd lumbar flexion 2x10 3: standing wand B shoulder extension 2x10 Skilled Intervention: Patient was educated in proper exercise technique and purpose for exercises. Skilled judgment was used in selection of appropriate interventions. Correct performance of therapeutic exercises was facilitated with verbal, visual, and tactile cuing. Educated patient on rationale for performing exercises in regards to decreasing fatigue , increase ease of ADL, and ROM and function . Patient education as noted. Neuromuscular Re-Education: 1: reaching up fwd and to each side 10x each on firm surface 2: reaching up fwd and to each side 10x each on foam surface 3: standing on firm surface leaning back, to the side each side 10x each 4: standing on foam surface leaning back, to the side each side 10x each 5: standing firm surface, romberg head movement vertical 2x30 sec 6: standing firm surface, romberg horizontal head movement 2x30 sec Skilled Intervention: Skilled judgment used to assess appropriate program for balance and coordination activity. Education in proprioceptive/kinesthetic awareness during dynamic activities. Ensured patient safety with use of // bars and gait belt. Patient education as noted. Self-Senior Care Management: 1: discussed how the BUE's could be going numb from the position of the neck while in bed 2: discussed how overuse of the hands can cause numbness 3: strongly advised use of cane, suggested that pt. ask family to assist her with reaching for things overhead due to LOB with reaching Skilled Intervention: Skilled judgment in the selection of proper modification for activity of daily living/home management based on clinical presentation, deficits, and needs. Reviewed patient specific diagnosis in relation to activities of daily living/home management. Activity progression based on professional judgement. Moderate verbal cues for maintaining neutral spine alignment. Billing Therapeutic Exercise Treatment Minutes: 15 Neuromuscular Re-Education Treatment Minutes: 15 Self-Care/Home Management Treatment Minutes: 10 Skilled Treatment Time Minutes (timed and untimed codes): 40 Total Session Time (minutes): 40 Session Start Time : 843 Session Stop Time : 923 [facility] History of Present illness Narrative* Blossom White, PT - 05/03/2024 8:47 AM EST Episode Visit Count: 5 Therapist That Will Accept/Oversee The Plan Of Care: Blossom White Start of Care Date: 03/29/24 Onset Date: (for many many years) Plan of Care Certification Date: 03/29/24 Next Certification Due Date: 05/10/24 REHABILITATION AND SPORTS THERAPY PHYSICAL THERAPY TREATMENT NOTE ASSESSMENT: Kesha Carmichael tolerated the session with fatigue. She demonstrated difficulty with reaching overhead without resistance for balance training, so this was modified to standing trunk extension on firm and foam surfaces without UE invovelment. The patient will continue to benefit from ongoing skilled physical therapy to progress toward set goals. PLAN FOR NEXT VISIT: PN 05/07/24, continue PT to prioritize balance, LBP has much improved. SUBJECTIVE: Pt. says her back is better but her balance is not what she thinks it should be. She provides the example that she was reaching up to hang curtains and caught herself from falling by grabbing a cart nearby. Patient Goals: reduce back pain and reduce fall risk Functional Limitations: standing, walking Prior Level of Function: Independent without limitations Pain: Pain Pain Level: 0 Pain Location: Leg - Left Description: Aching Post Treatment Pain Post Treatment Pain Level: No Change Post Treatment Pain Location: Back OBJECTIVE MEASURES WITH LEVEL OF FUNCTION: TREATMENT: Therapeutic Exercise: 1: Scifit stepper seat 15, level 2, 1:1 throughout, subjective collected 5 min. 2: seated in chair, fwd lumbar flexion 2x10 3: standing wand B shoulder extension 2x10 Skilled Intervention: Patient was educated in proper exercise technique and purpose for exercises. Skilled judgment was used in selection of appropriate interventions. Correct performance of therapeutic exercises was facilitated with verbal, visual, and tactile cuing. Educated patient on rationale for performing exercises in regards to decreasing fatigue , increase ease of ADL, and ROM and function . Patient education as noted. Neuromuscular Re-Education: 1: reaching up fwd and to each side 10x each on firm surface 2: reaching up fwd and to each side 10x each on foam surface 3: standing on firm surface leaning back, to the side each side 10x each 4: standing on foam surface leaning back, to the side each side 10x each 5: standing firm surface, romberg head movement vertical 2x30 sec 6: standing firm surface, romberg horizontal head movement 2x30 sec Skilled Intervention: Skilled judgment used to assess appropriate program for balance and coordination activity. Education in proprioceptive/kinesthetic awareness during dynamic activities. Ensured patient safety with use of // bars and gait belt. Patient education as noted. Self-Senior Care Management: 1: discussed how the BUE's could be going numb from the position of the neck while in bed 2: discussed how overuse of the hands can cause numbness 3: strongly advised use of cane, suggested that pt. ask family to assist her with reaching for things overhead due to LOB with reaching Skilled Intervention: Skilled judgment in the selection of proper modification for activity of daily living/home management based on clinical presentation, deficits, and needs. Reviewed patient specific diagnosis in relation to activities of daily living/home management. Activity progression based on professional judgement. Moderate verbal cues for maintaining neutral spine alignment. Billing Therapeutic Exercise Treatment Minutes: 15 Neuromuscular Re-Education Treatment Minutes: 15 Self-Care/Home Management Treatment Minutes: 10 Skilled Treatment Time Minutes (timed and untimed codes): 40 Total Session Time (minutes): 40 Session Start Time : 843 Session Stop Time : 923 Blossom White PT [facility] NoteHNO ID: [id number] Author: REGGIE NELSON PT Service: ? Author Type: Physical Therapist Type: Progress Notes Filed: 04/30/2024 11:06 Note Text: Episode Visit Count: 4 Therapist That Will Accept/Oversee The Plan Of Care: Blossom White Start of Care Date: 03/29/24 Onset Date: (for many many years) Plan of Care Certification Date: 03/29/24 Next Certification Due Date: 05/10/24 Patient Identified by Name and Date of : Yes REHABILITATION AND SPORTS THERAPY PHYSICAL THERAPY TREATMENT NOTE ASSESSMENT: Kesha Carmichael tolerated the session with fatigue and expected muscle soreness. She demonstrated difficulty with amb with head turns. The patient will continue to benefit from ongoing skilled physical therapy to progress toward set goals. PLAN FOR NEXT VISIT: Continue with balance on unstable surface. Gait with functional head movements SUBJECTIVE: Pt reports that she is feeling alright today. Pt denies any falls since last session. Pt states that her back is tired this morning, was quiliting this morning. Pain: Pain Pain Level: 0 Pain Location: Leg - Left OBJECTIVE MEASURES WITH LEVEL OF FUNCTION: Increased confidence with continued reps of balance exercises. TREATMENT: Neuromuscular Re-Education: 1: NBOS x30 seconds 2: Semi-tandem stance x30 seconds B 3: Tandem stance x30 seconds B, little unsteady 4: Rocker board side to side x 10 with 1 UE assist, then x 10 without UE assist 5: Rocker board taps front to back with 1 UE assist x 20 each 6: amb fwd with SC, horizontal head turns 2x40' side to side 7: amb fwd with SC, horizontal head turns 2x40' looking up and down 8: Balance on foam airex pad 2x30 seconds Skilled Intervention: Skilled judgment used to assess appropriate program for balance and coordination activity. Ensured patient safety with use of gait belt. Billing Neuromuscular Re-Education Treatment Minutes: 41 Skilled Treatment Time Minutes (timed and untimed codes): 41 Total Session Time (minutes): 41 Session Start Time : 1014 Session Stop Time : 1055 Tanya Meza, RONIT [facility] History of Present illness Narrative* Reggie Nelson, PT - 04/30/2024 10:15 AM EST Episode Visit Count: 4 Therapist That Will Accept/Oversee The Plan Of Care: Blossom White Start of Care Date: 03/29/24 Onset Date: (for many many years) Plan of Care Certification Date: 03/29/24 Next Certification Due Date: 05/10/24 Patient Identified by Name and Date of : Yes REHABILITATION AND SPORTS THERAPY PHYSICAL THERAPY TREATMENT NOTE ASSESSMENT: Kesha Carmichael tolerated the session with fatigue and expected muscle soreness. She demonstrated difficulty with amb with head turns. The patient will continue to benefit from ongoing skilled physical therapy to progress toward set goals. PLAN FOR NEXT VISIT: Continue with balance on unstable surface. Gait with functional head movements SUBJECTIVE: Pt reports that she is feeling alright today. Pt denies any falls since last session. Pt states that her back is tired this morning, was quiliting this morning. Pain: Pain Pain Level: 0 Pain Location: Leg - Left OBJECTIVE MEASURES WITH LEVEL OF FUNCTION: Increased confidence with continued reps of balance exercises. TREATMENT: Neuromuscular Re-Education: 1: NBOS x30 seconds 2: Semi-tandem stance x30 seconds B 3: Tandem stance x30 seconds B, little unsteady 4: Rocker board side to side x 10 with 1 UE assist, then x 10 without UE assist 5: Rocker board taps front to back with 1 UE assist x 20 each 6: amb fwd with SC, horizontal head turns 2x40' side to side 7: amb fwd with SC, horizontal head turns 2x40' looking up and down 8: Balance on foam airex pad 2x30 seconds Skilled Intervention: Skilled judgment used to assess appropriate program for balance and coordination activity. Ensured patient safety with use of gait belt. Billing Neuromuscular Re-Education Treatment Minutes: 41 Skilled Treatment Time Minutes (timed and untimed codes): 41 Total Session Time (minutes): 41 Session Start Time : 1014 Session Stop Time : 1055 RONIT Espinoza PT [facility] NoteHNO ID: [id number] Author: BLOSSOM WHITE PT Service: ? Author Type: Physical Therapist Type: Progress Notes Filed: 04/26/2024 13:50 Note Text: Episode Visit Count: 3 Therapist That Will Accept/Oversee The Plan Of Care: Blossom White Start of Care Date: 03/29/24 Onset Date: (for many many years) Plan of Care Certification Date: 03/29/24 Next Certification Due Date: 05/10/24 REHABILITATION AND SPORTS THERAPY PHYSICAL THERAPY TREATMENT NOTE ASSESSMENT: Kesha Carmichael tolerated the session with fatigue. She demonstrated difficulty with head nods while walking forward however was able to complete this with faster gate speed as compared to head turns and walking forward. The patient will continue to benefit from ongoing skilled physical therapy to progress toward set goals. PLAN FOR NEXT VISIT: static standing balance on unstable surface - consider rocker board SUBJECTIVE: Pt. states that her back is doing alright. Presents with SC. Pt. did go to the dr. last week and has been putting triple antibiotic ointment on it. Pt. was rx'd oral antibiotic. Pt. remembered to bring her SC. Patient Goals: reduce back pain and reduce fall risk Functional Limitations: standing, walking Pain: Pain Pain Level: 0 Pain Location: Leg - Left Description: Aching Post Treatment Pain Post Treatment Pain Level: No Change Post Treatment Pain Location: Back OBJECTIVE MEASURES WITH LEVEL OF FUNCTION: TREATMENT: Therapeutic Exercise: 1: Scifit stepper seat 15, level 2, 1:1 throughout, subjective collected 5 min. Skilled Intervention: Patient was educated in proper exercise technique and purpose for exercises. Skilled judgment was used in selection of appropriate interventions. Provided written instruction for home exercise program to facilitate proper performance and compliance. Correct performance of therapeutic exercises was facilitated with verbal, visual, and tactile cuing. Educated patient on rationale for performing exercises in regards to decreasing fatigue , including balance, increase ease of ADL, and ROM and function . Patient education as noted. Neuromuscular Re-Education: 1: amb fwd with SC, horizontal head turns 2x40' side to side 2: amb fwd with SC, horizontal head nods 2x40' side to side 3: amb reverse with SC 40' 2x 4: reverse amb with SC 40' 1x - dc due to pt. reporting vertigo symptoms 5: amb in // bars NBOS 2x10 tandem steps Skilled Intervention: Skilled judgment used to assess appropriate program for balance and coordination activity. Education in proprioceptive/kinesthetic awareness during standing and dynamic activities. Reviewed and educated patient on additions/changes for home program as noted above with an (*). Patient education as noted. Self-Senior Care Management: Skilled Intervention: Skilled judgment in the selection of proper modification for activity of daily living/home management based on clinical presentation, deficits, and needs. Provided written instruction for activities of daily living techniques to facilitate proper performance and compliance. Reviewed patient specific diagnosis in relation to activities of daily living/home management. Activity progression based on professional judgement. Correct performance of home program was facilitated with verbal, visual, and tactile cueing. Billing Therapeutic Exercise Treatment Minutes: 5 Neuromuscular Re-Education Treatment Minutes: 20 Gait Training Treatment Minutes: 15 Total Session Time (minutes): 40 Session Start Time : 1309 Session Stop Time : 1349 Blossom White, [facility]01-20-2025 History of Present illness Narrative* Blossom White, PT - 04/26/2024 1:09 PM EST Episode Visit Count: 3 Therapist That Will Accept/Oversee The Plan Of Care: Blossom White Start of Care Date: 03/29/24 Onset Date: (for many many years) Plan of Care Certification Date: 03/29/24 Next Certification Due Date: 05/10/24 REHABILITATION AND SPORTS THERAPY PHYSICAL THERAPY TREATMENT NOTE ASSESSMENT: Kesha Carmichael tolerated the session with fatigue. She demonstrated difficulty with head nods while walking forward however was able to complete this with faster gate speed as compared to head turns and walking forward. The patient will continue to benefit from ongoing skilled physicaltherapy to progress toward set goals. PLAN FOR NEXT VISIT: static standing balance on unstable surface - consider rocker board SUBJECTIVE: Pt. states that her back is doing alright. Presents with SC. Pt. did go to the dr. flores and has been putting triple antibiotic ointment on it. Pt. was rx'd oral antibiotic. Pt. remembered to bring her SC. Patient Goals: reduce back pain and reduce fall risk Functional Limitations: standing, walking Pain: Pain Pain Level: 0 Pain Location: Leg - Left Description: Aching Post Treatment Pain Post Treatment Pain Level: No Change Post Treatment Pain Location: Back OBJECTIVE MEASURES WITH LEVEL OF FUNCTION: TREATMENT: Therapeutic Exercise: 1: Scifit stepper seat 15, level 2, 1:1 throughout, subjective collected 5 min. Skilled Intervention: Patient was educated in proper exercise technique and purpose for exercises. Skilled judgment was used in selection of appropriate interventions. Provided written instruction for home exercise program to facilitate proper performance and compliance. Correct performance of therapeutic exercises was facilitated with verbal, visual, and tactile cuing. Educated patient on rationale for performing exercises in regards to decreasing fatigue , includingbalance, increase ease of ADL, and ROM and function . Patient education as noted. Neuromuscular Re-Education: 1: amb fwd with SC, horizontal head turns 2x40' side to side 2: amb fwd with SC, horizontal head nods 2x40' side to side 3: amb reverse with SC 40' 2x 4: reverse amb with SC 40' 1x - dc due to pt. reporting vertigo symptoms 5: amb in // bars NBOS 2x10 tandem steps Skilled Intervention: Skilled judgment used to assess appropriate program for balance and coordination activity. Education in proprioceptive/kinesthetic awareness during standing and dynamic activities. Reviewed and educated patient on additions/changes for home program as noted above with an (*). Patient education as noted. Self-Senior Care Management: Skilled Intervention: Skilled judgment in the selection of proper modification for activity of daily living/home management based on clinical presentation, deficits, and needs. Provided written instruction for activities of daily living techniques to facilitate proper performance and compliance. Reviewed patient specific diagnosis in relation to activities of daily living/home management. Activity progression based on professional judgement. Correct performance of home program was facilitated with verbal, visual, and tactile cueing. Billing Therapeutic Exercise Treatment Minutes: 5 Neuromuscular Re-Education Treatment Minutes: 20 Gait Training Treatment Minutes: 15 Total Session Time (minutes): 40 Session Start Time : 1309 Session Stop Time : 1349 Blossom White PT [facility] Telephone encounter Note * Telephone Encounter - Stoney Lopez - 04/22/2024 10:53 AM ESTSummary: Picked up the phone I called the patient, the patient picked up and successfully rescheduled her appointment. The patient rescheduled her appointment from 07/02/2024 @ 1:00 pm to 07/09/2024 @ 2:[address] [facility]. Telephone encounter was left. [facility]01-16-2025 Miscellaneous Notes* Telephone Encounter - Stoney Lopez - 04/22/2024 10:53 AM ESTSummary: Picked up the phone I called the patient, the patient picked up and successfully rescheduled her appointment. The patient rescheduled her appointment from 07/02/2024 @ 1:00 pm to 07/09/2024 @ 2:[address] [facility]. Telephone encounter was left. [facility] Instructions* Patient Instructions* Belkys Mcintyre APRN.[facility] - 04/19/2024 2:15 PM EST - Follow up in June as scheduled - Keflex (cephalexin) 500 mg 2 x day for 5 days [facility]25 NoteHNO ID: [id number] Author: BELKYS MCINTYRE APRN.CNP Service: ? Author Type: Clinical Nurse Specialist Type: Progress Notes Filed: 04/19/2024 14:18 Note Text: This is a 79 year old female who presents today with: Patient presents with: Fall: Fell 2.5 weeks ago when walking the dog. Left stringer landed on brick. Leg Pain: Left leg pain and lump from fall HISTORY OF PRESENT ILLNESS: Kesha Carmichael is a 79 year old female. Patient presents with: Fall: Fell 2.5 weeks ago when walking the dog. Left stringer landed on brick. Leg Pain: Left leg pain and lump from fall Left stringer with large hematoma, tiny laceration above that is scabbed over. Area around it is red with ecchymosis below the laceration Has fallen a couple of times. PAST MEDICAL HISTORY: PAST MEDICAL HISTORY Diagnosis Date Abnormal EKG afib, inf [place] age undetermined Atrial fibrillation (HCC) Breast cancer (HCC) 03/2018 left breast Closed fracture of right distal radius 09/10/2021 Congestive heart failure (HCC) 09/24/2018 Epistaxis balloon out osteo History of colonoscopy [address] Stoney Hernandez , normal HTN (hypertension) Hyperglycemia Knee pain, chronic Lt Migraines stopped when she retired Normal cardiac stress test 2004 Dr. Romero Osteoarthritis Seasonal allergies Type 2 diabetes mellitus without complication, without long-term current use of insulin (HCC) 04/11/2016 PAST SURGICAL HISTORY Procedure Laterality Date ARTHRP KNE CONDYLEANDPLATU MEDIALANDLAT COMPARTMENTS 2011 Knee replacement, total, right ARTHRP KNE CONDYLEANDPLATU MEDIALANDLAT COMPARTMENTS Knee replacement, total, left BIOPSY BREAST OPEN INCISIONAL 2004 Bx of breast, incisional left LAPAROSCOPIC APPENDECTOMY 02/28/10 LIG/TRNSXJ FLP TUBE ABDL/VAG APPR UNI/BI 1973 Tubal ligation PAST SURGICAL HISTORY OF Left 03/27/2018 biopsy and lumpectomy left breast breast with lymph node removal x 4 PAST SURGICAL HISTORY OF Right shoulder surgery PICC LINE INSERT/CONSULT 03/09/2020 TONSILLECTOMY AND ADENOIDECTOMY T/A (under age 11 years) TOTAL ABDOMINAL HYSTERECT W/WO RMVL TUBE OVARY 1974 Hysterectomy, DANYELLE ALLERGIES Adhesive Tape-Silicones, Anastrozole, Aquacel-Ag [Silver-Hydrocolloid Dressing], Azithromycin, Exemestane, and Lisinopril MEDICATIONS Current Outpatient Medications Medication Sig metoprolol succinate ER (TOPROL XL) 50 mg 24 hr tablet Take 1 tablet by mouth once daily. rivaroxaban (XARELTO) 20 mg tablet Take 1 tablet by mouth daily with dinner. calcium carbonate/vitamin D3 (CALCIUM WITH VITAMIN D3 ORAL) Take by mouth. amoxicillin (AMOXIL) 500 mg capsule Take four capsules 20 minutes before procedure magnesium oxide 400 mg magnesium tab Take 400 mg by mouth once daily. melatonin 1 mg tablet Take 2 mg by mouth daily at bedtime. POTASSIUM ORAL Take 1 capsule by mouth once daily. valsartan (DIOVAN) 160 mg tablet Take 1 tablet by mouth once daily. furosemide (LASIX) 40 mg tablet Take 1 tablet by mouth once daily. vit C,Y-Af-xldih-lutein-zeaxan (PRESERVISION AREDS-2) 250-90-40-1 mg Take 1 capsule by mouth twice daily with meals. Cholecalciferol, Vitamin D3, 50 mcg (2,000 unit) cap Take 1 capsule by mouth once daily. thiamine HCl (VITAMIN B-1 ORAL) Take 250 mg by mouth once daily. multivitamins(DAILY MULTIVITAMIN TAB) Take one(1) tablet daily. Current Facility-Administered Medications Medication Dose Route Frequency perflutren lipid microspheres 1.3 mL in NaCl (PF) 0.9% 10 mL injection (DEFINITY) INTRAVENOUS DIRECTED PRN sodium chloride 0.9 % (flush) 10 mL (BD POSIFLUSH) 10 mL INTRAVENOUS DIRECTED PRN FAMILY HISTORY Problem Relation Age of Onset Breast Cancer Mother Hypertension Mother Hypertension Father Heart Father [place] Diabetes Father Kidney Disease Sister Heart disease Sister Cancer Sister breast COPD Sister Hypertension Sister Macular Degen Sister Arthritis Sister Cancer Sister breast Hypertension Sister Macular Degen Sister Diabetes Sister Tremor Sister Hypertension Sister Cancer Sister uterine,breast Blood Clots Sister Aneurysm Brother Hypertension Brother Diabetes Brother other (MVA) Brother Cancer Daughter uterine Hypertension Daughter Hypertension Son Hypertension Son Breast Cancer Maternal Grandmother Breast Cancer Other niece x3 Colon Cancer Other nephew Stroke Paternal Grandmother No Known Problems Maternal Grandfather in his 70's other (TB) Paternal Grandfather Social History Tobacco Use Smoking status: Never Smokeless tobacco: Never Vaping Use Vaping status: Never Used Substance Use Topics Alcohol use: No Drug use: No EXAM: BP 128/84 Pulse 76 Resp 16 Wt 94.8 kg (209 lb) SpO2 98% BMI 42.21 kg/m? PHYSICAL EXAM: Physical Exam Vitals reviewed. Constitutional: Appearance: Normal appearance. HENT: Head: Normocephalic. Cardiovascular: Rate and (more content not included)...[facility]01-13-2025 History of Present illness Narrative* Belkys Mcintyre APRN.[facility] - 04/19/2024 2:03 PM EST This is a 79 year old female who presents today with: Patient presents with: Fall: Fell 2.5 weeks ago when walking the dog. Left stringer landed on brick. Leg Pain: Left leg pain and lump from fall HISTORY OF PRESENT ILLNESS: Kesha Carmichael is a 79 year old female. Patient presents with: Fall: Fell 2.5 weeks ago when walking the dog. Left stringer landed on brick. Leg Pain: Left leg pain and lump from fall Left stringer with large hematoma, tiny laceration above that is scabbed over. Area around it is red with ecchymosis below the laceration Has fallen a couple of times. PAST MEDICAL HISTORY: PAST MEDICAL HISTORY Diagnosis Date Abnormal EKG afib, inf [place] age undetermined Atrial fibrillation (HCC) Breast cancer (HCC) 03/2018 left breast Closed fracture of right distal radius 09/10/2021 Congestive heart failure (HCC) 09/24/2018 Epistaxis balloon out osteo History of colonoscopy [address] Stoney Hernandez , normal HTN (hypertension) Hyperglycemia Knee pain, chronic Lt Migraines stopped when she retired Normal cardiac stress test 2004 Dr. Romero Osteoarthritis Seasonal allergies Type 2 diabetes mellitus without complication, without long-term current use of insulin ([facility]) 04/11/2016 PAST SURGICAL HISTORY Procedure Laterality Date ARTHRP KNE CONDYLE&PLATU MEDIAL&LAT COMPARTMENTS 2011 Knee replacement, total, right ARTHRP KNE CONDYLE&PLATU MEDIAL&LAT COMPARTMENTS Knee replacement, total, left BIOPSY BREAST OPEN INCISIONAL 2003 Bx of breast, incisional left LAPAROSCOPIC APPENDECTOMY 02/28/10 LIG/TRNSXJ FLP TUBE ABDL/VAG APPR UNI/BI 1973 Tubal ligation PAST SURGICAL HISTORY OF Left 03/27/2018 biopsy and lumpectomy left breast breast with lymph node removal x 4 PAST SURGICAL HISTORY OF Right shoulder surgery PICC LINE INSERT/CONSULT 03/09/2020 TONSILLECTOMY & ADENOIDECTOMY <AGE 11 T/A (under age 11 years) TOTAL ABDOMINAL HYSTERECT W/WO RMVL TUBE OVARY 1974 Hysterectomy, DANYELLE ALLERGIES Adhesive Tape-Silicones, Anastrozole, Aquacel-Ag [Silver-Hydrocolloid Dressing], Azithromycin, Exemestane, and Lisinopril MEDICATIONS Current Outpatient Medications Medication Sig metoprolol succinate ER (TOPROL XL) 50 mg 24 hr tablet Take 1 tablet by mouth once daily. rivaroxaban (XARELTO) 20 mg tablet Take 1 tablet by mouth daily with dinner. calcium carbonate/vitamin D3 (CALCIUM WITH VITAMIN D3 ORAL) Take by mouth. amoxicillin (AMOXIL) 500 mg capsule Take four capsules 20 minutes before procedure magnesium oxide 400 mg magnesium tab Take 400 mg by mouth once daily. melatonin 1 mg tablet Take 2 mg by mouth daily at bedtime. POTASSIUM ORAL Take 1 capsule by mouth once daily. valsartan (DIOVAN) 160 mg tablet Take 1 tablet by mouth once daily. furosemide (LASIX) 40 mg tablet Take 1 tablet by mouth once daily. vit C,C-Cu-gcdcx-lutein-zeaxan (PRESERVISION AREDS-2) 250-90-40-1 mg Take 1 capsule by mouth twice daily with meals. Cholecalciferol, Vitamin D3, 50 mcg (2,000 unit) cap Take 1 capsule by mouth once daily. thiamine HCl (VITAMIN B-1 ORAL) Take 250 mg by mouth once daily. multivitamins(DAILY MULTIVITAMIN TAB) Take one(1) tablet daily. Current Facility-Administered Medications Medication Dose Route Frequency perflutren lipid microspheres 1.3 mL in NaCl (PF) 0.9% 10 mL injection (DEFINITY) INTRAVENOUS DIRECTED PRN sodium chloride 0.9 % (flush) 10 mL (BD POSIFLUSH) 10 mL INTRAVENOUS DIRECTED PRN FAMILY HISTORY Problem Relation Age of Onset Breast Cancer Mother Hypertension Mother Hypertension Father Heart Father [place] Diabetes Father Kidney Disease Sister Heart disease Sister Cancer Sister breast COPD Sister Hypertension Sister Macular Degen Sister Arthritis Sister Cancer Sister breast Hypertension Sister Macular Degen Sister Diabetes Sister Tremor Sister Hypertension Sister Cancer Sister uterine,breast Blood Clots Sister Aneurysm Brother Hypertension Brother Diabetes Brother other (MVA) Brother Cancer Daughter uterine Hypertension Daughter Hypertension Son Hypertension Son Breast Cancer Maternal Grandmother Breast Cancer Other niece x3 Colon Cancer Other nephew Stroke Paternal Grandmother No Known Problems Maternal Grandfather in his 70's other (TB) Paternal Grandfather Social History Tobacco Use Smoking status: Never Smokeless tobacco: Never Vaping Use Vaping status: Never Used Substance Use Topics Alcohol use: No Drug use: No EXAM: BP 128/84 Pulse 76 Resp 16 Wt 94.8 kg (209 lb) SpO2 98% BMI 42.21 kg/m PHYSICAL EXAM: Physical Exam Vitals reviewed. Constitutional: Appearance: Normal appearance. HENT: Head: Normocephalic. Cardiovascular: Rate and Rhythm: Normal rate and regular rhythm. Pulses: Normal pulses. Heart sounds: Normal heart sounds. Pulmonary: Effort: Pulmonary effort is normal. Breath sounds: Normal breath sounds. Abdominal: Palpations: Abdomen is soft. Musculoskeletal: General: Normal range of motion. Comments: Walks w/o assistive device Skin: Comments: Left skin with softball sized area of redness Center with a few tiny abrasions that have black scabbing Some ecchymosis below abrasions Neurological: Mental Status: She is alert. LABS: ASSESSMENT/PLAN: 1. Infected abrasion of left lower extremity, initial encounter - ICD9: 916.1, ICD10: S80.812A, L08.9 - Begin treatment with Cephalaxin (Keflex) - CEPHALEXIN 500 MG CAPSULE 2 x day for 5 days Discussed treatment plan and patient voices understanding. Patient's questions answered appropriately. Medications and potential side effects were discussed and patient voices understanding. Return to the office as scheduled or as needed for worsening/no improvement. Belkys cMintyre APRN.CNP documented [facility]Way[facility]01-[facility]25 NoteHNO ID: [id number] Author: BLOSSOM WHITE, PT Service: ? Author Type: Physical Therapist Type: Progress Notes Filed: 04/19/2024 09:27 Note Text: Episode Visit Count: 2 Therapist That Will Accept/Oversee The Plan Of Care: Blossom White Start of Care Date: 03/29/24 Onset Date: (for many many years) Plan of Care Certification Date: 03/29/24 Next Certification Due Date: 05/10/24 REHABILITATION AND SPORTS THERAPY PHYSICAL THERAPY TREATMENT NOTE ASSESSMENT: Kesha Carmichael tolerated the session with decreased symptoms. She demonstrated difficulty with balance activities including NBOS and eyes closed. The patient will continue to benefit from ongoing skilled physical therapy to progress toward set goals. PLAN FOR NEXT VISIT: ask aobut back pain, continue gait training with SC SUBJECTIVE: Pt. fell between and taking her dog out in the middle of the night and tripped coming back up onto the porch. She was able to get herself up. Pt. reports 3 falls since . She has stopped taking gabapentin about a week ago because she felt that this was interfering with her balance. Patient Goals: reduce back pain and reduce fall risk Functional Limitations: standing, walking Prior Level of Function: Independent without limitations Pain: Pain Pain Location: Leg - Left Description: Aching Post Treatment Pain Post Treatment Pain Level: (tired) Post Treatment Pain Location: Back Post Treatment Symptoms: hip pain resolves quickly upon sitting OBJECTIVE MEASURES WITH LEVEL OF FUNCTION: Functional Gait Assessment Gait level surface : 1 - Moderate impairment- walks 20', slow speed, abnormal gait pattern, evidence for imbalance Change in gait speed: 2 - Mild impairment- is able to change speed but demonstrates mild gait deviations or no gait deviations but unable to achieve a significant change in velocity, or uses an assistive device Gait and horizontal head turns: 1 - Moderate impairment- performs R/L head turns with moderate change in gait velocity, slows down, staggers but recovers, can continue to walk Gait and vertical head turns: 1 - Moderate impairment- performs R/L head turns with moderate change in gait velocity, slows down, staggers but recovers, can continue to walk Gait and pivot: 2 - Mild impairment- pivot turns safely in >3 sec, stops, no loss of balance Step over obstacle: 2 - Mild impairment- is able to step over box, but must slow down and adjust steps to clear box Gait with narrow base of support : 1 - Moderate impairment- ambulates 4-7 steps Gait with eyes closed : 2 - Mild impairment- walks 20' uses assist device, slower speed, mild gait deviation, deviates 6-10 outside of 12 walk[address] Ambulates backward : 1 - Moderate impairment- walks 20', slow speed, abnormal gait pattern, evidence for imbalance, deviates 10-15 outside 12 [address] Steps: 1 - Moderate impairment- 2 feet to a stair, must use rail Functional Gait Assessment Total : 14 TREATMENT: Therapeutic Exercise: 1: Scifit stepper seat 15, level 2, 1:1 throughout, subjective collected 5 min. Skilled Intervention: Patient was educated in proper exercise technique and purpose for exercises. Skilled judgment was used in selection of appropriate interventions. Provided written instruction for home exercise program to facilitate proper performance and compliance. Correct performance of therapeutic exercises was facilitated with verbal, visual, and tactile cuing. Educated patient on rationale for performing exercises in regards to decreasing fatigue , including balance, increase ease of ADL, and ROM and function . Patient education as noted. Neuromuscular Re-Education: 1: FGA - without AD score 14 Skilled Intervention: Ensured patient safety with use of gait belt. Patient education as noted. Gait Training: Pre gait training: correct adjustment of SC Distance (feet): 80' 6x with SC and SBA then pt. requested to sit down Gait Cues: correct use of SC Assistive Device: SC Assist Level: SBA minimal to no verbal cues Skilled Intervention: Patient was provided stand by assist during pre-gait/gait training to prevent falls and insure safety. Facilitated proper gait cycle with the use of verbal, visual, and tactile cues for correction of gait deviations identified in the objective section above. Gait belt utilized during session for safety. Self-Senior Care Management: 1: advised using a long handled pooper glass or mirror inspector to avoid bending forward to pick pulling machine operator after her dog. dials supervisor after the dog when the dog is inside 2: advised taking a phone outside should she fall and not be able to get up 3: advised use of SC Skilled Intervention: Skilled judgment in the selection of proper modification for activity of daily living/home management based on clinical presentation, deficits, and needs. Reviewed patient specific diagnosis in relation to activities of daily ondina (more content not included)...[facility]01-13-2025 History of Present illness Narrative* Blossom White, PT - 04/19/2024 8:45 AM EST Episode Visit Count: 2 Therapist That Will Accept/Oversee The Plan Of Care: Blossom ValerieOleg Start of Care Date: 03/29/24 Onset Date: (for many many years) Plan of Care Certification Date: 03/29/24 Next Certification Due Date: 05/10/24 REHABILITATION AND SPORTS THERAPY PHYSICAL THERAPY TREATMENT NOTE ASSESSMENT: Kesha Carmichael tolerated the session with decreased symptoms. She demonstrated difficulty with balance activities including NBOS and eyes closed. The patient will continue to benefit from ongoing skilled physical therapy to progress toward set goals. PLAN FOR NEXT VISIT: ask aobut back pain, continue gait training with SC SUBJECTIVE: Pt. fell between and taking her dog out in the middle of the night and tripped coming back up onto the porch. She was able to get herself up. Pt. reports 3 falls sinceThanksgiving. She has stopped taking gabapentin about a week ago because she felt that this was interfering with her balance. Patient Goals: reduce back pain and reduce fall risk Functional Limitations: standing, walking Prior Level of Function: Independent without limitations Pain: Pain Pain Location: Leg - Left Description: Aching Post Treatment Pain Post Treatment Pain Level: (tired) Post Treatment Pain Location: Back Post Treatment Symptoms: hip pain resolves quickly upon sitting OBJECTIVE MEASURES WITH LEVEL OF FUNCTION: Functional Gait Assessment Gait level surface : 1 - Moderate impairment- walks 20', slow speed, abnormal gait pattern, evidence for imbalance Change in gait speed: 2 - Mild impairment- is able to change speed but demonstrates mild gait deviations or no gait deviations but unable to achieve a significant change in velocity, or uses an assistive device Gait and horizontal head turns: 1 - Moderate impairment- performs R/L head turns with moderate change in gait velocity, slows down, staggers but recovers, can continue to walk Gait and vertical head turns: 1 - Moderate impairment- performs R/L head turns with moderate changein gait velocity, slows down, staggers but recovers, can continue to walk Gait and pivot: 2 - Mild impairment- pivot turns safely in >3 sec, stops, no loss of balance Step over obstacle: 2 - Mild impairment- is able to step over box, but must slow down and adjust steps to clear box Gait with narrow base of support : 1 - Moderate impairment- ambulates 4-7 steps Gait with eyes closed : 2 - Mild impairment- walks 20' uses assist device, slower speed, mild gait deviation, deviates 6-10 outside of 12 walkway Ambulates backward : 1 - Moderate impairment- walks 20', slow speed, abnormal gait pattern, evidence for imbalance, deviates 10-15 outside 12 walkway Steps: 1 - Moderate impairment- 2 feet to a stair, must use rail Functional Gait Assessment Total : 14 TREATMENT: Therapeutic Exercise: 1: Scifit stepper seat 15, level 2, 1:1 throughout, subjective collected 5 min. Skilled Intervention: Patient was educated in proper exercise technique and purpose for exercises. Skilled judgment was used in selection of appropriate interventions. Provided written instruction for home exercise program to facilitate proper performance and compliance. Correct performance of therapeutic exercises was facilitated with verbal, visual, and tactile cuing. Educated patient on rationale for performing exercises in regards to decreasing fatigue , includingbalance, increase ease of ADL, and ROM and function . Patient education as noted. Neuromuscular Re-Education: 1: FGA - without AD score 14 Skilled Intervention: Ensured patient safety with use of gait belt. Patient education as noted. Gait Training: Pre gait training: correct adjustment of SC Distance (feet): 80' 6x with SC and SBA then pt. requested to sit down Gait Cues: correct use of SC Assistive Device: SC Assist Level: SBA minimal to no verbal cues Skilled Intervention: Patient was provided stand by assist during pre-gait/gait training to preventfalls and insure safety. Facilitated proper gait cycle with the use of verbal, visual, and tactile cues for correction of gait deviations identified in the objective section above. Gait belt utilized during session for safety. Self-Senior Care Management: 1: advised using a long handled pooper glass or mirror inspector to avoid bending forward to pick pulling machine operator after her dog. dials supervisor after the dog when the dog is inside 2: advised taking a phone outside should she fall and not be able to get up 3: advised use of SC Skilled Intervention: Skilled judgment in the selection of proper modification for activity of daily living/home management based on clinical presentation, deficits, and needs. Reviewed patient specific diagnosis in relation to activities of daily living/home management. Activity progression based on professional judgement. Moderate verbal cues for maintaining neutral spine alignment. Billing Therapeutic Exercise Treatment Minutes: 5 Neuromuscular Re-Education Treatment Minutes: 20 Self-Care/Home Management Treatment Minutes: 5 Gait Training Treatment Minutes: 10 Skilled Treatment Time Minutes (timed and untimed codes): 40 Total Session Time (minutes): 40 Session Start Time : 844 Session Stop Time : 924 Blossom White PT [facility] Tele[facility] encounter Note * Telephone Encounter - Belkys Mcintyre APRN.CNP - 04/15/2024 10:02 AM EST Absolutely. It was only to help. My gosh, I am sorry for all that. [facility] Miscellaneous Notes* Telephone Encounter - Belkys Mcintyre APRN.CNP - 04/15/2024 10:02 AM EST Absolutely. It was only to help. My gosh, I am sorry for all that. [facility] in [facility]Way[facility]12[facility] History of Present illness Narrative* Anuj Navarro MD - 04/05/2024 2:40 PM EST Images from the original note were not included. [facility] SE[facility]IONAL CARDIOLOGY Cardiology ([facility]) [address] [facility] [address] OUTPATIENT VISIT DATE 04/05/2024 PRIMARY CARE PHYSICIAN: Chip Arreola MD [address] [place] [address] HISTORY OF PRESENT ILLNESS: Ms. Carmichael is a 79 year old woman with a history of permanent atrial fibrillation, hypertension, diastolic congestive heart failure and mild to moderate mitral/tricuspid valve regurgitation who is here for routine follow-up. Patient was taking care of independently is able to complete her ADLs without assistance. She tells me her heart failure has been well-controlled. She has not had lower extremity edema or symptoms concerning for PND or orthopnea. She denies feelings of palpitations or heartracing. She has not had symptoms concerning for bradycardia. PAST MEDICAL HISTORY Diagnosis Date Abnormal EKG afib, inf [place] age undetermined Atrial fibrillation (HCC) Breast cancer (HCC) 03/2018 left breast Closed fracture of right distal radius 09/10/2021 Congestive heart failure ([facility]) 09/24/2018 Epistaxis balloon out osteo History of colonoscopy [address] Stoney Hernandez , normal HTN (hypertension) Hyperglycemia Knee pain, chronic Lt Migraines stopped when she retired Normal cardiac stress test 2004 Dr. Romero Osteoarthritis Seasonal allergies Type 2 diabetes mellitus without complication, without long-term current use of insulin ([facility]) 04/11/2016 PAST SURGICAL HISTORY Procedure Laterality Date ARTHRP KNE CONDYLE&PLATU MEDIAL&LAT COMPARTMENTS 2012 Knee replacement, total, right ARTHRP KNE CONDYLE&PLATU MEDIAL&LAT COMPARTMENTS Knee replacement, total, left BIOPSY BREAST OPEN INCISIONAL 2004 Bx of breast, incisional left LAPAROSCOPIC APPENDECTOMY 02/28/10 LIG/TRNSXJ FLP TUBE ABDL/VAG APPR UNI/BI 1973 Tubal ligation PAST SURGICAL HISTORY OF Left 03/27/2018 biopsy and lumpectomy left breast breast with lymph node removal x 4 PAST SURGICAL HISTORY OF Right shoulder surgery PICC LINE INSERT/CONSULT 03/09/2020 TONSILLECTOMY & ADENOIDECTOMY <AGE 11 T/A (under age 11 years) TOTAL ABDOMINAL HYSTERECT W/WO RMVL TUBE OVARY 1975 Hysterectomy, DANYELLE SOCIAL HISTORY Social History Tobacco Use Smoking status: Never Smokeless tobacco: Never Vaping Use Vaping status: Never Used Substance Use Topics Alcohol use: No Drug use: No FAMILY HISTORY Problem Relation Age of Onset Breast Cancer Mother Hypertension Mother Hypertension Father Heart Father [place] Diabetes Father Kidney Disease Sister Heart disease Sister Cancer Sister breast COPD Sister Hypertension Sister Macular Degen Sister Arthritis Sister Cancer Sister breast Hypertension Sister Macular Degen Sister Diabetes Sister Tremor Sister Hypertension Sister Cancer Sister uterine,breast Blood Clots Sister Aneurysm Brother Hypertension Brother Diabetes Brother other (MVA) Brother Cancer Daughter uterine Hypertension Daughter Hypertension Son Hypertension Son Breast Cancer Maternal Grandmother Breast Cancer Other niece x3 Colon Cancer Other nephew Stroke Paternal Grandmother No Known Problems Maternal Grandfather in his 70's other (TB) Paternal Grandfather ALLERGIES: ALLERGIES Allergen Reactions Adhesive Tape-Silic* Rash ALL hydrogels, hydrocolloids, adhesives Anastrozole Other: See Comments migraines Aquacel-Ag [Silver-* Itching And redness Azithromycin Swelling facial Exemestane Other: See Comments Decreased use of right arm Lisinopril Cough MEDICATIONS: metoprolol succinate ER (TOPROL XL) 50 mg 24 hr tablet^Take 1 tablet by mouth once daily.^Disp: 90 tablet^Rfl: 3 rivaroxaban (XARELTO) 20 mg tablet^Take 1 tablet by mouth daily with dinner.^Disp: 90 tablet^Rfl: 3 calcium carbonate/vitamin D3 (CALCIUM WITH VITAMIN D3 ORAL)^Take by mouth.^Disp: ^Rfl: gabapentin (NEURONTIN) 100 mg capsule^Take 1 capsule by mouth three times a day for 90 days.^Disp: 90 capsule^Rfl: 2 amoxicillin (AMOXIL) 500 mg capsule^Take four capsules 20 minutes before procedure^Disp: 4 capsule^Rfl: 0 magnesium oxide 400 mg magnesium tab^Take 400 mg by mouth once daily.^Disp: ^Rfl: melatonin 1 mg tablet^Take 2 mg by mouth daily at bedtime.^Disp: ^Rfl: POTASSIUM ORAL^Take 1 capsule by mouth once daily.^Disp: ^Rfl: valsartan (DIOVAN) 160 mg tablet^Take 1 tablet by mouth once daily.^Disp: 90 tablet^Rfl: 3 furosemide (LASIX) 40 mg tablet^Take 1 tablet by mouth once daily.^Disp: 90 tablet^Rfl: 3 vit C,Q-Ka-xfjrj-lutein-zeaxan (PRESERVISION AREDS-2) 250-90-40-1 mg^Take 1 capsule by mouth twice daily with meals.^Disp: ^Rfl: Cholecalciferol, Vitamin D3, 50 mcg (2,000 unit) cap^Take 1 capsule by mouth once daily.^Disp: ^Rfl: thiamine HCl (VITAMIN B-1 ORAL)^Take 250 mg by mouth once daily. ^Disp: ^Rfl: multivitamins(DAILY MULTIVITAMIN TAB)^Take one(1) tablet daily.^Disp: ^Rfl: 0 REVIEW OF SYSTEMS: Review of Systems Constitutional: Negative for chills, fever, malaise/fatigue and weight loss. HENT: Negative for hearing loss and sore throat. Eyes: Negative for blurred vision and double vision. Respiratory: Negative. Cardiovascular: Negative. Gastrointestinal: Negative. Genitourinary: Negative for dysuria, frequency, hematuria and urgency. Musculoskeletal: Negative. Skin: Negative. Neurological: Positive for tremors. Negative for dizziness, seizures, loss of consciousness, weakness and headaches. Endo/Heme/Allergies: Negative for environmental allergies. Does not bruise/bleed easily. Psychiatric/Behavioral: Negative for depression. PHYSICAL EXAMINATION: BP 122/85 (BP Site: Right Arm, BP Position: Sitting, BP Cuff Size: Large Adult) Pulse 103 Resp 14 Ht 149.9 cm (4' 11) Wt 95.7 kg (211 lb) SpO2 97% BMI 42.62 kg/m General: Pleasant somewhat obese woman sitting appears comfortable no apparent distress. She is alert and oriented x3 HEENT: Carotid upstrokes are brisk bilaterally without bruits. No JVD appreciated Pulmonary: Lungs are clear no rales, wheezes, or rhonchi. Cardiovascular: Normal S1-S2 with an irregular regular rhythm and normal rate. No murmurs, rubs, orgallops extremities: Warm, well-perfused, no lower extremity edema. CARDIOVASCULAR MEDICINE TESTING: ECG in the office 07/29/2022: Atrial fibrillation, left axis deviation. ECG in the office 05/21/2021: Atrial fibrillation with controlled ventricular response. Heart rate 84 bpm. Normal axis and intervals. No significant ST or T wave changes ECG in the office 01/29/2021: Normal sinus rhythm with left axis deviation poor R wave progression anteriorly with incomplete Q waves in leads III and aVF. Lexiscan Myoview stress test 03/10/2018: CONCLUSIONS: 1. SPECT Perfusion Study: Normal. 2. There is no scintigraphic evidence for inducible ischemia. 3. No evidence of scarred myocardium. 4. Functional capacity N/A (pharmacological). 5. Left ventricle is normal in size. The left ventricle systolic function is normal. 6. Right ventricle is normal in size. The right ventricle systolic function is normal. 7. This is a low risk scan. Gated Stress FBP LVEF % 60 Zio Monitor 12/23/19-01/04/20 Min HR 39 bpm, max HR 96 bpm, average HR 52 bpm Predominant rhythm normal sinus Rare Isolated SVE's (<1%) Echocardiogram 07/21/2023: - Technically difficult exam due to body habitus. - Exam indication: Atrial fibrillation - The left ventricle is normal in size. There is mild concentric left ventricular hypertrophy. Leftventricular systolic function is mildly decreased. EF = 50 5% (2D 4-ch.) Left ventricular diastolic function was not evaluated due to AF. - The right ventricle is normal in size. Right ventricular systolic function is normal. - The left atrial cavity is moderately dilated. - There are no significant valvular abnormalities. - The patient has not had a prior CC echocardiographic exam for comparison. Echocardiogram 09/04/2018: Left ventricular systolic function is normal. Estimated ejection fraction is 55%. Mild concentric left ventricle hypertrophy. Left atrium is. moderately enlarged Right atrium is mildly enlarged Mild focal mitral valve calcification of the anterior leaflets with 1+ eccentric mitral valve regurgitation. Moderate 2+ eccentric tricuspid valve insufficiency RV systolic pressure estimated to be 46 mmHg. Event monitor 12/23/2019: Duration 11 days Minimum heart rate 39 bpm: Heart rate of 96 bpm with an average of 52 bpm Predominant underlying rhythm normal sinus with isolated SVEs which were rare at less than 1% Cardioversion 11/30/18 IMPRESSION: Ms. Carmichael is a 79 year old woman with a history of paroxysmal atrial fibrillation (likely now persistent), chronic diastolic heart failure, pulmonary hypertension, hypertension, and obstructive sleep apnea who presents for routine follow-up. PLAN AND RECOMMENDATIONS: 1. Persistent atrial fibrillation (HCC) - ICD9: 427.31, ICD10: I48.19 (primary diagnosis) Patient doing well with adequate heart rate control. She is on Xarelto for stroke risk reduction. - METOPROLOL SUCCINATE ER 50 MG TABLET,EXTENDED RELEASE 24 HR 2. Chronic diastolic congestive heart failure (HCC) - ICD9: 428.32, 428.0, ICD10: I50.32 Well-controlled on current diuretic therapy low-sodium diet 3. Essential hypertension, benign - ICD9: 401.1, ICD10: I10 Well-controlled on current regimen 4. Pulmonary HTN (HCC) - ICD9: 416.8, ICD10: I27.20 5. Morbid obesity with BMI of 40.0-44.9, adult (HCC) - ICD9: 278.01, V85.41, ICD10: E66.01, Z68.41 I have discussed dietary modification with her in detail. Anuj Navarro MD documented [facility]Way[facility]12-30-[facility] NoteHNO ID: [id number] Author: ANUJ NAVARRO MD Service: ? Author Type: Physician Type: Progress Notes Filed: 04/05/2024 14:49 Note Text: [facility] SECTION OF REGIONAL CARDIOLOGY Cardiology ([place] [facility] [address] [facility] [address] OUTPATIENT VISIT DATE 04/05/2024 PRIMARY CARE PHYSICIAN: Chip Arreola MD [address] [place] [address] HISTORY OF PRESENT ILLNESS: Ms. Carmichael is a 79 year old woman with a history of permanent atrial fibrillation, hypertension, diastolic congestive heart failure and mild to moderate mitral/tricuspid valve regurgitation who is here for routine follow-up. Patient was taking care of independently is able to complete her ADLs without assistance. She tells me her heart failure has been well-controlled. She has not had lower extremity edema or symptoms concerning for PND or orthopnea. She denies feelings of palpitations or heart racing. She has not had symptoms concerning for bradycardia. PAST MEDICAL HISTORY Diagnosis Date Abnormal EKG afib, inf [place] age undetermined Atrial fibrillation ([facility]) Breast cancer ([facility]) 03/2018 left breast Closed fracture of right distal radius 09/10/2021 Congestive heart failure ([facility]) 09/24/2018 Epistaxis balloon out osteo History of colonoscopy [address] Stoney Hernandez , normal HTN (hypertension) Hyperglycemia Knee pain, chronic Lt Migraines stopped when she retired Normal cardiac stress test 2004 Dr. Romero Osteoarthritis Seasonal allergies Type 2 diabetes mellitus without complication, without long-term current use of insulin ([facility]) 04/11/2016 PAST SURGICAL HISTORY Procedure Laterality Date ARTHRP KNE CONDYLEANDPLATU MEDIALANDLAT COMPARTMENTS 2011 Knee replacement, total, right ARTHRP KNE CONDYLEANDPLATU MEDIALANDLAT COMPARTMENTS Knee replacement, total, left BIOPSY BREAST OPEN INCISIONAL 2003 Bx of breast, incisional left LAPAROSCOPIC APPENDECTOMY 02/28/10 LIG/TRNSXJ FLP TUBE ABDL/VAG APPR UNI/BI 1973 Tubal ligation PAST SURGICAL HISTORY OF Left 03/27/2018 biopsy and lumpectomy left breast breast with lymph node removal x 4 PAST SURGICAL HISTORY OF Right shoulder surgery PICC LINE INSERT/CONSULT 03/09/2020 TONSILLECTOMY AND ADENOIDECTOMY T/A (under age 11 years) TOTAL ABDOMINAL HYSTERECT W/WO RMVL TUBE OVARY 1975 Hysterectomy, DANYELLE SOCIAL HISTORY Social History Tobacco Use Smoking status: Never Smokeless tobacco: Never Vaping Use Vaping status: Never Used Substance Use Topics Alcohol use: No Drug use: No FAMILY HISTORY Problem Relation Age of Onset Breast Cancer Mother Hypertension Mother Hypertension Father Heart Father [place] Diabetes Father Kidney Disease Sister Heart disease Sister Cancer Sister breast COPD Sister Hypertension Sister Macular Degen Sister Arthritis Sister Cancer Sister breast Hypertension Sister Macular Degen Sister Diabetes Sister Tremor Sister Hypertension Sister Cancer Sister uterine,breast Blood Clots Sister Aneurysm Brother Hypertension Brother Diabetes Brother other (MVA) Brother Cancer Daughter uterine Hypertension Daughter Hypertension Son Hypertension Son Breast Cancer Maternal Grandmother Breast Cancer Other niece x3 Colon Cancer Other nephew Stroke Paternal Grandmother No Known Problems Maternal Grandfather in his 70's other (TB) Paternal Grandfather ALLERGIES: ALLERGIES Allergen Reactions Adhesive Tape-Silic* Rash ALL hydrogels, hydrocolloids, adhesives Anastrozole Other: See Comments migraines Aquacel-Ag [Silver-* Itching And redness Azithromycin Swelling facial Exemestane Other: See Comments Decreased use of right arm Lisinopril Cough MEDICATIONS: metoprolol succinate ER (TOPROL XL) 50 mg 24 hr tabletTake 1 tablet by mouth once daily.Disp: 90 tabletRfl: 3 rivaroxaban (XARELTO) 20 mg tabletTake 1 tablet by mouth daily with dinner.Disp: 90 tabletRfl: 3 calcium carbonate/vitamin D3 (CALCIUM WITH VITAMIN D3 ORAL)Take by mouth.Disp: Rfl: gabapentin (NEURONTIN) 100 mg capsuleTake 1 capsule by mouth three times a day for 90 days.Disp: 90 capsuleRfl: 2 amoxicillin (AMOXIL) 500 mg capsuleTake four capsules 20 minutes before procedureDisp: 4 capsuleRfl: 0 magnesium oxide 400 mg magnesium tabTake 400 mg by mouth once daily.Disp: Rfl: melatonin 1 mg tabletTake 2 mg by mouth daily at bedtime.Disp: Rfl: POTASSIUM ORALTake 1 capsule by mouth once daily.Disp: Rfl: valsartan (DIOVAN) 160 mg tabletTake 1 tablet by mouth once daily.Disp: 90 tabletRfl: 3 furosemide (LASIX) 40 mg tabletTake 1 tablet by mouth once daily.Disp: 90 tabletRfl: 3 vit C,I-Jo-skdxz-lutein-zeaxan (PRESERVISION AREDS-2) 250-90-40-1 mgTake 1 capsule by mouth twice daily with meals.Disp: Rfl: Cholecalciferol, Vitamin D3, 50 mcg (more content not included)...[facility]12-23-2024 History of Present illness Narrative* Blossom White, PT - 03/29/2024 11:35 AM EST Program_ID:[id number] Access Code: [email or web address] URL: [email or web address] Date: 03-29-2024 Prepared By: Blossom White Program Notes Exercises - Hooklying Single Knee to Chest Stretch - 2-3 x daily - 7 x weekly - 1 sets - 3 reps - Hooklying Single Knee to Chest Stretch - 2-3 x daily - 7 x weekly - 1 sets - 3 reps - Supine Double Knee to Chest Modified - 2-3 x daily - 7 x weekly - 1 sets - 3 reps - Supine Transversus Abdominis Bracing - Hands on Stomach - 2-3 x daily - 7 x weekly - 4 sets - 10 reps * Blossom White, PT - 03/29/2024 11:03 AM EST Images from the original note were not included. Episode Visit Count: 1 Therapist That Will Accept/Oversee The Plan Of Care: Blossom White Start of Care Date: 03/29/24 Onset Date: (for many many years) Plan of Care Certification Date: 03/29/24 Next Certification Due Date: 05/10/24 Patient Identified by Name and Date of : Yes REHABILITATION AND SPORTS THERAPY PHYSICAL THERAPY EVALUATION PLAN OF CARE: Assessment: Kesha Carmichael presents with diagnosis of falls frequently that interferes with standing, walking . The patient presents with impairments in ADL's, balance, gait, independence in exercise, joint mobility, overall function, patient reported outcome measures, posture, range of motion, strength, and symptom management. PROMIS (Patient-Reported Outcomes Measurement Information System) scores were reviewed and identified as a rehabilitation concern. Prognosis for therapy is Good due to:good support system/ coping skills, current objective clinical presentation . The patient will benefit from skilled therapy services to meet the goals established for this plan of care as noted below. Classification Pain Mechanism Classification: Neuropathic Low Back Pain Classification: Symptom Modulation Goals for Episode of Care: established 03/29/24 Patient will report no falls. Patient will demonstrate independent and proper use of assisstive device to allow for improved walking quality and safety therefore reducing the risk of falls. Patient will decrease pain rating by 2 points to meet Minimal Clinical Important Difference for number pain scale rating. Perform walking to her mail box (10-15 minutes) with decreased report of symptoms / pain. Patient will be able to corect postrual deviations independently in order to allow for normal mechanics and to decrease current pain . Patient Goals: reduce back pain and reduce fall risk Time Frame for Goals and Treatment : 03/29/24 Planned Interventions, Frequency, and Duration: Current Frequency: 1x/week Duration: 6 weeks Total Number of Visits Planned: 6 Planned Treatment Interventions: Neuromuscular re-education (95664), Therapeutic exercise (13839), Manual therapy (24282), Therapeutic activities (15660), Self- shelter management (46944), Gait Training (15385) PLAN FOR NEXT VISIT: FGA. Assess symptom response to lumbar flexion directional preference. Considering TA stabilization progressing using biofeedback Patient demonstrates good understanding of plan of care and treatment. The above goals and plan of care were discussed and agreed upon by patient/family. SUBJECTIVE: for back pain with walking to get her mail. Pt. has had multiple falls over the past and attributesthis to leaning forward to ease the LBP, however this causes LOB. Pt. enjoys quiliting, but is onlyable to tolerate 2-3 hours of continuous sitting. She gets relief from laying in her power lift recliner. Pt. can stand/walk for about a half hour max. She owns a cane, rollator, and a walker. She uses the quad cane for outdoors or uneven ground. 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 Patient Goals: reduce back pain and reduce fall risk Functional Limitations: standing, walking Prior Level of Function: Independent without limitations Relevant History Right or Left Handed: Right Employment: Retired Recreation / Current Exercise: quiliting and sewing Intake Information: Prescription present Falls Interview: Two or more falls in the last year Falls Intervention: Instructed patient on safety and use of assistive device and awareness in regards to falls prevention., More thorough falls assessment to be performed Falls History # of falls in past year: (several times, I'm not really sure.) Red Flags Vertebral Fracture Red Flags: Female, Age >70 Vertebral Fracture Clinical Reasoning: Proceed with caution due to the above (1- 2) risk factors Abdominal Aortic Aneurysm Red Flags: Age >60 Abdominal Aortic Aneurysm Clinical Reasoning: Proceed with caution Cancer Clinical Reasoning: No identified risk factors. Infection Clinical Reasoning: No identified risk factors. Cauda Equina Syndrome Clinical Reasoning: No identified risk factors. Red Flags - Cervical Cancer Clinical Reasoning: No identified risk factors. Infection Clinical Reasoning: No identified risk factors. Spine History Symptoms Location at Onset: Back Pain is Worse Always: Standing, Walking Sleep Affected by Pain: Not affected by pain Pain: Pain Pain Location: Back Description: Aching Frequency: At rest Post Treatment Pain Post Treatment Pain Level: Better Post Treatment Pain Location: Back PROMIS Scales 03/29/2024 02/19/2021 Higher is Better Phys Func - Score 38 (moderate dysfunction) 36 (moderate dysfunction) Phys Func - Percentile 12 8 Self-Eff Symptom - Score 40 (Average) 41 (Average) Self-Eff Symptom - Percentile 16 18 T-scores: mean of general population = 50. 5 points is clinically meaningfully difference Percentiles provide an indication of how the patient's score ranks in relation to the general population. Higher percentile rankings indicate better function/quality of life. 50th percentile is the average of the general population and indicates half of respondents had a worse score. OBJECTIVE MEASURES WITH LEVEL OF FUNCTION: Posture / Alignment Sitting Posture: Decreased lumbar lordosis, Sits on left ischial tuberosity, Left lateral shift Lumbar Spine AROM Lumbar Flexion: Normal Lumbar Extension: Produces Lumbar R Side [place]: Normal Lumbar L Side [place] Springs: Decreased pain, Moderate limitation Lumbar R Side-Bend: Produces, Moderate limitation Lumbar L Side-Bend: Moderate limitation Lumbar R Rotation: Normal Lumbar L Rotation: Normal Repeated Test Movements - Lumbar Other Lumbar Repeated Test Movements: Yes Static Testing - Lumbar Sit Slouched: better Stand Erect: worse Gait Gait: Independent Gait Distance (feet): 50 Gait Device: None Gait Deviations: General Deviations General Deviations/Observations: Arm swing decreased, Lexi decreased, Flexed trunk posture, Lateral sway increased, Shuffling Gait, Step length decreased, Narrow Base of Support, Trunk Control Decreased Education: Education Learning Preferences: Demonstration, Explanation, Printed Materials, Performance Barriers: None Learning/educational needs: Plan of Care, Changes in Plan of Care, Home exercise program, Posture, Gait Training Education Provided: Yes, see treatment interventions for education provided Education Provided To: Patient Education Mode/Type: Demonstration, Explanation/Discussion, Literature/Printed Materials, Performance Response to Education/Teach Back: States/Identifies, Return Demonstration TREATMENT: PT Treatment Interventions: Self-Senior Care Management, Therapeutic Exercise Evaluation Therapeutic Exercise: 1: *Access Code: [email or web address] URL: [email or web address] Date: 03/29/2024 Prepared by: Blossom Corrales Exercises - Hooklying Single Knee to Chest Stretch - 2-3 x daily - 7 x weekly - 1sets - 3 reps - 30 hold - Hooklying Single Knee to Chest Stretch (Mirrored) - 2-3 x daily - 7 x weekly - 1 sets - 3 reps - 30 hold - Supine Double Knee to Chest Modified - 2-3 x daily - 7 x weekly - 1 sets - 3 reps - 30 hold - Supine Transversus Abdominis Bracing - Hands on Stomach - 2-3 x daily - 7 x weekly - 4 sets - 10 reps - 1 hold Skilled Intervention: Patient was educated in proper exercise technique and purpose for exercises. Skilled judgment was used in selection of appropriate interventions. Provided written instruction for home exercise program to facilitate proper performance and compliance. Correct performance of therapeutic exercises was facilitated with verbal, visual, and tactile cuing. Educated patient on rationale for performing exercises in regards to decreasing fatigue , includingbalance, increase ease of ADL, and ROM and function . Patient education as noted. Self-Senior Care Management: 1: discussed directional preference 2: advised use of quad cane to prevent falls and decrease symtpoms 3: discussed that intermittent breaks and activity modification is better than discontinuing all participation Skilled Intervention: Skilled judgment in the selection of proper modification for activity of daily living/home management based on clinical presentation, deficits, and needs. Provided written instruction for activities of daily living techniques to facilitate proper performance and compliance. Reviewed patient specific diagnosis in relation to activities of daily living/home management. Activity progression based on professional judgement. Moderate verbal cues for maintaining neutral spine alignment. Provided written instruction for home program to facilitate proper performance and compliance. Correct performance of home program was facilitated with verbal, visual, and tactile cueing. Billing * Evaluation Low Complexity: 1 Unit Therapeutic Exercise Treatment Minutes: 15 Self-Care/Home Management Treatment Minutes: 14 Skilled Treatment Time Minutes (timed and untimed codes): 49 Total Session Time (minutes): 49 Session Start Time : 1058 Session Stop Time : 1147 Blossom White PT [facility] NoteHNO ID: [id number] Author: BLOSSOM WHITE PT Service: ? Author Type: Physical Therapist Type: Progress Notes Filed: 03/29/2024 11:59 Note Text: Episode Visit Count: 1 Therapist That Will Accept/Oversee The Plan Of Care: Blossom White Start of Care Date: 03/29/24 Onset Date: (for many many years) Plan of Care Certification Date: 03/29/24 Next Certification Due Date: 05/10/24 Patient Identified by Name and Date of : Yes REHABILITATION AND SPORTS THERAPY PHYSICAL THERAPY EVALUATION PLAN OF CARE: Assessment: Kesha Carmichael presents with diagnosis of falls frequently that interferes with standing, walking . The patient presents with impairments in ADL's, balance, gait, independence in exercise, joint mobility, overall function, patient reported outcome measures, posture, range of motion, strength, and symptom management. PROMIS? (Patient-Reported Outcomes Measurement Information System) scores were reviewed and identified as a rehabilitation concern. Prognosis for therapy is Good due to: good support system/ coping skills, current objective clinical presentation . The patient will benefit from skilled therapy services to meet the goals established for this plan of care as noted below. Classification Pain Mechanism Classification: Neuropathic Low Back Pain Classification: Symptom Modulation Goals for Episode of Care: established 03/29/24 Patient will report no falls. Patient will demonstrate independent and proper use of assisstive device to allow for improved walking quality and safety therefore reducing the risk of falls. Patient will decrease pain rating by 2 points to meet Minimal Clinical Important Difference for number pain scale rating. Perform walking to her mail box (10-15 minutes) with decreased report of symptoms / pain. Patient will be able to corect postrual deviations independently in order to allow for normal mechanics and to decrease current pain . Patient Goals: reduce back pain and reduce fall risk Time Frame for Goals and Treatment : 03/29/24 Planned Interventions, Frequency, and Duration: Current Frequency: 1x/week Duration: 6 weeks Total Number of Visits Planned: 6 Planned Treatment Interventions: Neuromuscular re-education (29719), Therapeutic exercise (34099), Manual therapy (28774), Therapeutic activities (94188), Self-shelter management (11792), Gait Training (72807) PLAN FOR NEXT VISIT: FGA. Assess symptom response to lumbar flexion directional preference. Considering TA stabilization progressing using biofeedback Patient demonstrates good understanding of plan of care and treatment. The above goals and plan of care were discussed and agreed upon by patient/family. SUBJECTIVE: for back pain with walking to get her mail. Pt. has had multiple falls over the past and attributes this to leaning forward to ease the LBP, however this causes LOB. Pt. enjoys quiliting, but is only able to tolerate 2-3 hours of continuous sitting. She gets relief from laying in her power lift recliner. Pt. can stand/walk for about a half hour max. She owns a cane, rollator, and a walker. She uses the quad cane for outdoors or uneven ground. 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 Patient Goals: reduce back pain and reduce fall risk Functional Limitations: standing, walking Prior Level of Function: Independent without limitations Relevant History Right or Left Handed: Right Employment: Retired Recreation / Current Exercise: quiliting and sewing Intake Information: Prescription present Falls Interview: Two or more falls in the last year Falls Intervention: Instructed patient on safety and use of assistive device and awareness in regards to falls prevention., More thorough falls assessment to be performed Falls History # of falls in past year: (several times, I'm not really sure.) Red Flags Vertebral Fracture Red Flags: Female, Age >70 Vertebral Fracture Clinical Reasoning: Proceed with caution due to the above (1-2) risk factors Abdominal Aortic Aneurysm Red Flags: Age >60 Abdominal Aortic Aneurysm Clinical Reasoning: Proceed with caution Cancer Clinical Reasoning: No identified risk factors. Infection Clinical Reasoning: No identified risk factors. Cauda Equina Syndrome Clinical Reasoning: No identified risk factors. Red Flags - Cervical Cancer Clinical Reasoning: No identified risk factors. Infection Clinical Reasoning: No identified risk factors. Spine History Symptoms Location at Onset: Back Pain is Worse Always: Standing, Walking Sleep Affected by Pain: Not affected by pain Pain: Pain Pain Location: Back Description: Aching Frequency: At rest Post Treatment Pain Post Treatment Pain Level: Better Post Treatment Pain Location: Back PROMIS Scales 03/29/2024 02/19/2021 Higher is Better Phys Func - Score 38 (moderate dysfunction) 36 (moderate d (more content not included)...[facility]12-19-2024 Telephone encounter Note* Telephone Encounter - Divya José MA - 03/25/2024 9:11 AM EST Patient phones requesting refills as follows: Requested Prescriptions Pending Prescriptions Disp Refills metoprolol succinate ER (TOPROL XL) 50 mg 24 hr tablet 90 tablet 3 Sig: Take 1 tablet by mouth once daily. rivaroxaban (XARELTO) 20 mg tablet 90 tablet 3 Sig: Take 1 tablet by mouth daily with dinner. Please review and advise. APPT 04/05 Divya José MA [facility]12-19-2024 Miscellaneous Notes* Telephone Encounter - Divya José MA - 03/25/2024 9:11 AM EST Patient phones requesting refills as follows: Requested Prescriptions Pending Prescriptions Disp Refills metoprolol succinate ER (TOPROL XL) 50 mg 24 hr tablet 90 tablet 3 Sig: Take 1 tablet by mouth once daily. rivaroxaban (XARELTO) 20 mg tablet 90 tablet 3 Sig: Take 1 tablet by mouth daily with dinner. Please review and advise. APPT 04/05 Divya José MA documented in this encounterWay[facility]12-[facility]24 History of Present illness Narrative* Richard Barrios RT(R) - 03/09/2024 11:10 AM EST Radiology Service Progress Note PATIENT NAME: Kesha Carmichael DATE OF SERVICE: March 09, 2024 TIME: 11:46 AM PATIENT IDENTITY VERIFICATION COMPLETED USING TWO (2) IDENTIFIERS: Name and Date of confirmedby patient verbally. FALL SCREENING: Has the patient had 2 falls in the last year or 1 fall with injury or currently using an Ambulatory Assistive Device (Walker, Cane, Wheelchair, Crutches, etc.)? No PATIENT GENDER DATA: Female. status: : No status: NO. PATIENT RELEVANT IMPLANT DATA REVIEWED: Yes PATIENT PRESENTS WITH AN IMPLANTABLE OR ATTACHED TUNNEL ELASTIC OPERATOR ZIGZAG: No RADIOLOGY DEPARTMENT: General X-ray: Exam(s) Completed: Spine X-Ray(s): Thoracic and Lumbar AP / LAT / L5-S1 PERIPHERAL IV DATA: Not applicable SIGNED BY: RT Francie(R) March 09, 2024 11:46 AM documented in this encounterWay[facility]12-03-2024 NoteHNO ID: [id number] Author: RICHARD BARRIOS RT(Charlie) Service: ? Author Type: Nuclear Equipment Operator Type: Progress Notes Filed: 03/09/2024 12:06 Note Text: Radiology Service Progress Note PATIENT NAME: Kesha Carmichael DATE OF SERVICE: March 09, 2024 TIME: 11:46 AM PATIENT IDENTITY VERIFICATION COMPLETED USING TWO (2) IDENTIFIERS: Name and Date of confirmed by patient verbally. FALL SCREENING: Has the patient had 2 falls in the last year or 1 fall with injury or currently using an Ambulatory Assistive Device (Walker, Cane, Wheelchair, Crutches, etc.)? No PATIENT GENDER DATA: Female. status: : No status: NO. PATIENT RELEVANT IMPLANT DATA REVIEWED: Yes PATIENT PRESENTS WITH AN IMPLANTABLE OR ATTACHED TUNNEL ELASTIC OPERATOR ZIGZAG: No RADIOLOGY DEPARTMENT: General X-ray: Exam(s) Completed: Spine X-Ray(s): Thoracic and Lumbar AP / LAT / L5-S1 PERIPHERAL IV DATA: Not applicable SIGNED BY: RT Francie(R) March 09, 2024 11:46 [facility]12-03-2024 Instructions* Patient Instructions* Belkys Mcintyre APRN.CNP - 03/09/2024 10:52 AM EST 1) Get Xray thoracic and lumbar 2) Consult physical therapy 3) Get urinalysis (collect upstairs) 4) Gabapentin 100 mg 3 x day 5) Keep appt. In June documented in this encounterWay[facility]12-03-2024 NoteHNO ID: [id number] Author: BELKYS MCINTYRE APRN.ANJEL Service: ? Author Type: Clinical Nurse Specialist Type: Progress Notes Filed: 03/09/2024 10:55 Note Text: This is a 78 year old female who presents today with: Patient presents with: Tremor Back Pain Fall: 2 fall the past 2 weeks HISTORY OF PRESENT ILLNESS: Kesha Carmichael is a 78 year old female. Patient presents with: Tremor Back Pain Fall: 2 fall the past 2 weeks Falling. Fell and Friday. Legs are getting weak. Back is getting worse, she can't walk to strengthen them. 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 Axial lumbar pain. No radicular Sx. Sits in the recliner and reclines before it gets into legs. First injury lifting 50 lb boxes and stacking them 5 feet high. Second time, carrying powder up a ladder and dumping it into a machine. Tremor noticed when threading a needle or holding hands out. Must use both hands to brush hair. Saw a neurologist in [place] 3-5 years ago. The tremors really bother her. Drinks caffeine in diet pepsi. Occ drinks regular diet pepsi. PAST MEDICAL HISTORY: PAST MEDICAL HISTORY Diagnosis Date Abnormal EKG afib, inf [place] age undetermined Atrial fibrillation (HCC) Breast cancer (HCC) 03/2018 left breast Closed fracture of right distal radius 09/10/2021 Congestive heart failure ([facility]) 09/24/2018 Epistaxis balloon out osteo History of colonoscopy [address] Stoney Hernandez , normal HTN (hypertension) Hyperglycemia Knee pain, chronic Lt Migraines stopped when she retired Normal cardiac stress test 2004 Dr. Romero Osteoarthritis Seasonal allergies Type 2 diabetes mellitus without complication, without long-term current use of insulin ([facility]) 04/11/2016 PAST SURGICAL HISTORY Procedure Laterality Date ARTHRP KNE CONDYLEANDPLATU MEDIALANDLAT COMPARTMENTS 2011 Knee replacement, total, right ARTHRP KNE CONDYLEANDPLATU MEDIALANDLAT COMPARTMENTS Knee replacement, total, left BIOPSY BREAST OPEN INCISIONAL 2003 Bx of breast, incisional left LAPAROSCOPIC APPENDECTOMY 02/28/10 LIG/TRNSXJ FLP TUBE ABDL/VAG APPR UNI/BI 1973 Tubal ligation PAST SURGICAL HISTORY OF Left 03/27/2018 biopsy and lumpectomy left breast breast with lymph node removal x 4 PAST SURGICAL HISTORY OF Right shoulder surgery PICC LINE INSERT/CONSULT 03/09/2020 TONSILLECTOMY AND ADENOIDECTOMY T/A (under age 11 years) TOTAL ABDOMINAL HYSTERECT W/WO RMVL TUBE OVARY 1974 Hysterectomy, DANYELLE ALLERGIES Adhesive Tape-Silicones, Anastrozole, Aquacel-Ag [Silver-Hydrocolloid Dressing], Azithromycin, Exemestane, and Lisinopril MEDICATIONS Current Outpatient Medications Medication Sig calcium carbonate/vitamin D3 (CALCIUM WITH VITAMIN D3 ORAL) Take by mouth. magnesium oxide 400 mg magnesium tab Take 400 mg by mouth once daily. melatonin 1 mg tablet Take 2 mg by mouth daily at bedtime. POTASSIUM ORAL Take 1 capsule by mouth once daily. valsartan (DIOVAN) 160 mg tablet Take 1 tablet by mouth once daily. furosemide (LASIX) 40 mg tablet Take 1 tablet by mouth once daily. metoprolol succinate ER (TOPROL XL) 50 mg 24 hr tablet Take 1 tablet by mouth once daily. rivaroxaban (XARELTO) 20 mg tablet Take 1 tablet by mouth daily with dinner. vit C,V-Zx-gegfp-lutein-zeaxan (PRESERVISION AREDS-2) 250-90-40-1 mg Take 1 capsule by mouth twice daily with meals. Cholecalciferol, Vitamin D3, 50 mcg (2,000 unit) cap Take 1 capsule by mouth once daily. thiamine HCl (VITAMIN B-1 ORAL) Take 250 mg by mouth once daily. multivitamins(DAILY MULTIVITAMIN TAB) Take one(1) tablet daily. amoxicillin (AMOXIL) 500 mg capsule Take four capsules 20 minutes before procedure Current Facility-Administered Medications Medication Dose Route Frequency perflutren lipid microspheres 1.3 mL in NaCl (PF) 0.9% 10 mL injection (DEFINITY) INTRAVENOUS DIRECTED PRN sodium chloride 0.9 % (flush) 10 mL (BD POSIFLUSH) 10 mL INTRAVENOUS DIRECTED PRN FAMILY HISTORY Problem Relation Age of Onset Breast Cancer Mother Hypertension Mother Hypertension Father Heart Father [place] Diabetes Father Kidney Disease Sister Heart disease Sister Cancer Sister breast COPD Sister Hypertension Sister Macular Degen Sister Arthritis Sister Cancer Sister breast Hypertension Sister Macular Degen Sister Diabetes Sister Tremor Sister Hypertension Sister Cancer Sister uterine,breast Blood Clots Sister Aneurysm Brother Hypertension Brother Diabetes Brother other (MVA) Brother Cancer Daughter uterine Hypertension Daughter Hypertension Son Hypertension Son Breast Cancer Maternal Grandmother Breast Cancer Other niece x3 Colon Cancer Other nephew Stroke Paternal Grandmother No Known Problems Maternal Grandfather in his 70's other (TB) Paternal Grandfather Social History Tobacco Use Smoking status: Never Smokeless tobacco: Never Vaping Use (more content not included)...[facility]12-03-20[facility] History of Present illness Narrative* Belkys Mcintyre APRN.MINERALOGY PROFESSOR - 03/09/2024 10:27 AM EST This is a 78 year old female who presents today with: Patient presents with: Tremor Back Pain Fall: 2 fall the past 2 weeks HISTORY OF PRESENT ILLNESS: Kesha Carmichael is a 78 year old female. Patient presents with: Tremor Back Pain Fall: 2 fall the past 2 weeks Falling. Fell and Friday. Legs are getting weak. Back is getting worse, she can't walk to strengthen them. 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 Axial lumbar pain. No radicular Sx. Sits in the recliner and reclines before it gets into legs. First injury lifting 50 lb boxes and stacking them 5 feet high. Second time, carrying powder up a ladder and dumping it into a machine. Tremor noticed when threading a needle or holding hands out. Must use both hands to brush hair. [place] neurologist in [place] 3-5 years ago. The tremors really bother her. Drinks caffeine in diet pepsi. Occ drinks regular diet pepsi. PAST MEDICAL HISTORY: PAST MEDICAL HISTORY Diagnosis Date Abnormal EKG afib, inf [place] age undetermined Atrial fibrillation (HCC) Breast cancer (HCC) 03/2018 left breast Closed fracture of right distal radius 09/10/2021 Congestive heart failure (HCC) 09/24/2018 Epistaxis balloon out osteo History of colonoscopy [address] Stoney Hernandez , normal HTN (hypertension) Hyperglycemia Knee pain, chronic Lt Migraines stopped when she retired Normal cardiac stress test 2004 Dr. Romero Osteoarthritis Seasonal allergies Type 2 diabetes mellitus without complication, without long-term current use of insulin ([facility]) 04/11/2016 PAST SURGICAL HISTORY Procedure Laterality Date ARTHRP KNE CONDYLE&PLATU MEDIAL&LAT COMPARTMENTS 2011 Knee replacement, total, right ARTHRP KNE CONDYLE&PLATU MEDIAL&LAT COMPARTMENTS Knee replacement, total, left BIOPSY BREAST OPEN INCISIONAL 2004 Bx of breast, incisional left LAPAROSCOPIC APPENDECTOMY 02/28/10 LIG/TRNSXJ FLP TUBE ABDL/VAG APPR UNI/BI 1973 Tubal ligation PAST SURGICAL HISTORY OF Left 03/27/2018 biopsy and lumpectomy left breast breast with lymph node removal x 4 PAST SURGICAL HISTORY OF Right shoulder surgery PICC LINE INSERT/CONSULT 03/09/2020 TONSILLECTOMY & ADENOIDECTOMY <AGE 11 T/A (under age 11 years) TOTAL ABDOMINAL HYSTERECT W/WO RMVL TUBE OVARY 1974 Hysterectomy, DANYELLE ALLERGIES Adhesive Tape-Silicones, Anastrozole, Aquacel-Ag [Silver-Hydrocolloid Dressing], Azithromycin, Exemestane, and Lisinopril MEDICATIONS Current Outpatient Medications Medication Sig calcium carbonate/vitamin D3 (CALCIUM WITH VITAMIN D3 ORAL) Take by mouth. magnesium oxide 400 mg magnesium tab Take 400 mg by mouth once daily. melatonin 1 mg tablet Take 2 mg by mouth daily at bedtime. POTASSIUM ORAL Take 1 capsule by mouth once daily. valsartan (DIOVAN) 160 mg tablet Take 1 tablet by mouth once daily. furosemide (LASIX) 40 mg tablet Take 1 tablet by mouth once daily. metoprolol succinate ER (TOPROL XL) 50 mg 24 hr tablet Take 1 tablet by mouth once daily. rivaroxaban (XARELTO) 20 mg tablet Take 1 tablet by mouth daily with dinner. vit C,I-Qs-dvtis-lutein-zeaxan (PRESERVISION AREDS-2) 250-90-40-1 mg Take 1 capsule by mouth twice daily with meals. Cholecalciferol, Vitamin D3, 50 mcg (2,000 unit) cap Take 1 capsule by mouth once daily. thiamine HCl (VITAMIN B-1 ORAL) Take 250 mg by mouth once daily. multivitamins(DAILY MULTIVITAMIN TAB) Take one(1) tablet daily. amoxicillin (AMOXIL) 500 mg capsule Take four capsules 20 minutes before procedure Current Facility-Administered Medications Medication Dose Route Frequency perflutren lipid microspheres 1.3 mL in NaCl (PF) 0.9% 10 mL injection (DEFINITY) INTRAVENOUS DIRECTED PRN sodium chloride 0.9 % (flush) 10 mL (BD POSIFLUSH) 10 mL INTRAVENOUS DIRECTED PRN FAMILY HISTORY Problem Relation Age of Onset Breast Cancer Mother Hypertension Mother Hypertension Father Heart Father [place] Diabetes Father Kidney Disease Sister Heart disease Sister Cancer Sister breast COPD Sister Hypertension Sister Macular Degen Sister Arthritis Sister Cancer Sister breast Hypertension Sister Macular Degen Sister Diabetes Sister Tremor Sister Hypertension Sister Cancer Sister uterine,breast Blood Clots Sister Aneurysm Brother Hypertension Brother Diabetes Brother other (MVA) Brother Cancer Daughter uterine Hypertension Daughter Hypertension Son Hypertension Son Breast Cancer Maternal Grandmother Breast Cancer Other niece x3 Colon Cancer Other nephew Stroke Paternal Grandmother No Known Problems Maternal Grandfather in his 70's other (TB) Paternal Grandfather Social History Tobacco Use Smoking status: Never Smokeless tobacco: Never Vaping Use Vaping status: Never Used Substance Use Topics Alcohol use: No Drug use: No EXAM: BP 122/78 Pulse 110 Resp 16 Wt 94.6 kg (208 lb 8.9 oz) SpO2 100% BMI 40.94 kg/m PHYSICAL EXAM: Physical Exam Vitals reviewed. Constitutional: Appearance: Normal appearance. She is obese. HENT: Head: Normocephalic. Right Ear: Tympanic membrane, ear canal and external ear normal. There is no impacted cerumen. Left Ear: Tympanic membrane, ear canal and external ear normal. There is no impacted cerumen. Nose: No congestion or rhinorrhea. Mouth/Throat: Mouth: Mucous membranes are moist. Pharynx: Oropharyngeal exudate and posterior oropharyngeal erythema present. Eyes: Pupils: Pupils are equal, round, and reactive to light. Cardiovascular: Rate and Rhythm: Normal rate and regular rhythm. Pulses: Normal pulses. Heart sounds: Normal heart sounds. Pulmonary: Effort: Pulmonary effort is normal. Breath sounds: Normal breath sounds. Musculoskeletal: Right lower leg: No edema. Left lower leg: No edema. Comments: Moves all ext. Without difficulty Spine is kyphotic Full flexion, ext 20 degrees, side to side 30 degrees but feels a catch Limited rotation Negative leg lift Skin: General: Skin is warm and dry. Neurological: Mental Status: She is alert and oriented to person, place, and time. Coordination: Coordination normal. Gait: Gait abnormal. Comments: Cranial nerves III-XII intact, no finger to nose ataxia Tremor noted with intention Psychiatric: Mood and Affect: Mood normal. Behavior: Behavior normal. LABS: ASSESSMENT/PLAN: 1. Low back pain, unspecified back pain laterality, unspecified chronicity, unspecified whether sciatica present - ICD9: 724.2, ICD10: M54.50 (primary diagnosis) Ongoing, old injury - XR LUMBAR GENERAL 3V AP/LAT/L5-S1 2. DDD (degenerative disc disease), thoracic - ICD9: 722.51, ICD10: M51.34 Ongoing, old injury - XR THORACIC GENERAL 3V AP/LAT/SWIMMERS 3. Tremor - ICD9: 781.0, ICD10: R25.1 Ongoing, getting worse - GABAPENTIN 100 MG CAPSULE 4. Falls frequently - ICD9: V15.88, ICD10: R29.6 Worse of late, twice in last week - CONSULT TO PHYSICAL THERAPY - URINALYSIS, WITH MICROSCOPIC Discussed treatment plan and patient voices understanding. Patient's questions answered appropriately. Medications and potential side effects were discussed and patient voices understanding. Return to the office as scheduled or as needed for worsening/no improvement. Belkys Mcintyre APRN.MINERALOGY PROFESSOR documented in this encounterWay[facility]09-[facility]24 Telephone encounter Note * Telephone Encounter - Areli Moore MA - 12/26/2023 12:30 PM EDT Pt notified. Areli Moore MA [facility]09-20-2024 Miscellaneous Notes* Telephone Encounter - Areli Moore MA - 12/26/2023 12:30 PM EDT Pt notified. Areli Moore MA * Telephone Encounter - Chip Arreola MD - 12/26/2023 12:13 PM EDT sent * Telephone Encounter - Angy Phipps RN - 12/26/2023 11:56 AM EDT Patient calls to report that she has a dental appointment/procedure on Friday and needs [id number] min prior to the appointment. Pended previous prescription for review. Please call patient at [phone] if provider is willing to order prescription. Angy Phipps RN documented [facility]24 Telephone encounter Note * Telephone Encounter - Chip Arreola MD - 12/26/2023 12:13 PM EDT sent [facility] Telephone encounter Note* Telephone Encounter - Angy Phipps RN - 12/26/2023 11:56 AM EDT Patient calls to report that she has a dental appointment/procedure on Friday and needs [id number] min prior to the appointment. Pended previous prescription for review. Please call patient at [phone] if provider is willing to order prescription. Angy Phipps RN [facility]08-22-2024 Instructions* Patient Instructions* Belkys Mcintyre APRN.CNP - 11/27/2023 9:44 AM EDT 1) Follow up in 6 months 2) Will get labs same day after our visit documented in this encounterWayne Hospital08-22-2024 NoteHNO ID: [id number] Author: BELKYS MCINTYRE APRN.CNP Service: ? Author Type: Clinical Nurse Specialist Type: Progress Notes Filed: 11/27/2023 09:46 Note Text: Chief Reason For Appointment Patient presents with: Medicare Wellness Exam Kesha Carmichael is a 78 year old female who presents for annual exam. Last office visit date: 03/12/2023 Accompanied By self only Have you had any critical events, hospital stays, ER visits, surgeries or procedures since your last visit here in our office: No Specialists/Other Healthcare Providers Seen: Patient Care Team: Chip Arreola MD as PCP - General (Family Medicine) Inocente Romero MD as Roguer (Cardiology) Antonio Cagle MD, PhD as Primary Staff Physician (Cardiology) David Galo MD as Consulting (Infectious Diseases) Dayanna Lewis MD as Consulting (Orthopedics) Chpi Arreola MD as Home Care Provider (Family Medicine) Dayanna Lewis MD as Referring (Orthopedics) Bridgett Guzman RN as Public Speaking Coach (Post Acute Care) Concerns today: Seeing eye doctor for infection left eye HPI Has an ulcer in left eye- using drops in left eye Getting better Active Problems ACTIVE PROBLEM LIST Intermediate Stage 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 Macular Degeneration of Both Eyes - 05/02/2023 Pseudophakia - 05/02/2023 Posterior Vitreous Detachment of Both Eyes - 05/02/2023 H/O Mitral Valve Disease - 02/24/2023 Director Private Current Use of Anticoagulant Therapy - 04/15/2022 Obstructive Sleep Apnea Syndrome - 04/15/2022 Comment: Uses cpap Type 2 Diabetes Mellitus With Diabetic Chronic Kidney Disease (Hcc) - 04/15/2022 Osteoarthritis of Spine With Radiculopathy, Lumbar Region - 02/21/2021 Essential Tremor - 06/22/2020 Rotator Cuff Tear Arthropathy, Left - 04/13/2020 S/P Reverse Total Shoulder Arthroplasty, Right - 03/04/2020 Chronic Diastolic Congestive Heart Failure (Hcc) - 09/24/2018 Pulmonary Htn ([facility]) - 09/24/2018 Malignant 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 Started asa a day. Aware of risks. Sees [facility] cardiology in [place] Morbid Obesity With Bmi of 40.0-44.9, Adult (Hcc) - 08/01/2017 Rotator Cuff Tear Arthropathy, Right - 06/24/2016 History of Total Bilateral Knee Replacement - 09/24/2011 Essential Hypertension, Benign - 07/01/2011 ROS: REVIEW OF SYSTEMS GENERAL: No weight loss- some gain, malaise or fevers/chills HEENT: Negative for frequent or significant headaches, No changes in hearing, some changes in vision as above. NECK: Negative for lumps, goiter, pain and significant neck swelling RESPIRATORY: Negative for cough, hemoptysis, some wheezing with climbing stairs, + dyspnea or shortness of breath with exertion CARDIOVASCULAR: Negative for chest pain, leg swelling, + orthopnea- uses CPAP, always palpitations- has Afib GI: No nausea, vomiting, or diarrhea/constipation. No hematochezia/melena. occ heartburn or reflux symptoms. : No history of dysuria, no frequency or incontinence MUSCULOSKELETAL: Negative for joint pain or swelling. SKIN: Negative for lesions, rash, and itching ENDOCRINE: Some urgency, no polyuria, polydipsia and goiter NEURO: No history of headaches, syncope, paralysis, no seizures, + essential tremors MOOD: Negative for depression, anxiety, or suicidal ideation. PAST MEDICAL HISTORY No date: Abnormal EKG Comment: afib, inf [place] age undetermined No date: Atrial fibrillation (HCC) 03/2018: Breast cancer ([facility]) Comment: left breast 09/10/2021: Closed fracture of right distal radius 09/24/2018: Congestive heart failure (HCC) No date: Epistaxis Comment: balloon out osteo 2004: History of colonoscopy Comment: Per Dr. Stoney Hernandez , normal No date: HTN (hypertension) No date: Hyperglycemia No date: Knee pain, chronic Comment: Lt No date: Migraines Comment: stopped when she retired 2004: Normal cardiac stress test Comment: Dr. Romero No date: Osteoarthritis No date: Seasonal allergies 04/11/2016: Type 2 diabetes mellitus without complication, without long-term current use of insulin (HCC) PAST SURGICAL HISTORY 2011: ARTHRP KNE CONDYLEANDPLATU MEDIALANDLAT COMPARTMENTS Comment: Knee replacement, total, right : ARTHRP KNE CONDYLEANDPLATU MEDIALANDLAT COMPARTMENTS Comment: Knee replacement, total, left 2003: BIOPSY BREAST OPEN INCISIONAL Comment: Bx of breast, incisional left 02/28/10: LAPAROSCOPIC APPENDECTOMY 1973: LIG/TRNSXJ FLP TUBE ABDL/VAG APPR UNI/BI Comment: Tubal ligation 03/27/2018: PAST SURGICAL HISTORY OF; Left Comment: biopsy and lumpectomy left breast breast with lymph node removal x 4 No date: PAST SURGICAL HISTORY OF; Right Comment: shoulder surgery 03/09/2020: PICC LINE INSERT/CONSULT Comment: No date: TONSILLECTOMY AND ADENOIDECTOMY Comment (more content not included)...[facility]08-22-2024 History of Present illness Narrative* Belkys Mcintyre APRN.MINERALOGY PROFESSOR - 11/27/2023 9:14 AM EDT Chief Reason For Appointment Patient presents with: Medicare Wellness Exam Kesha Carmichael is a 78 year old female who presents for annual exam. Last office visit date: 03/12/2023 Accompanied By self only Have you had any critical events, hospital stays, ER visits, surgeries or procedures since your last visit here in our office: No Specialists/Other Healthcare Providers Seen: Patient Care Team: Chip Arreola MD as PCP - General (Family Medicine) Inocente Romero MD as Roguer (Cardiology) Antonio Cagle MD, PhD as Primary Staff Physician (Cardiology) David Galo MD as Consulting (Infectious Diseases) Dayanna Lewis MD as Consulting (Orthopedics) Chip Arreola MD as Home Care Provider (Family Medicine) Dayanna Lewis MD as Referring (Orthopedics) Bridgett Guzman RN as Public Speaking Coach (Post Acute Care) Concerns today: Seeing eye doctor for infection left eye HPI Has an ulcer in left eye- using drops in left eye Getting better Active Problems ACTIVE PROBLEM LIST Intermediate Stage 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 Macular Degeneration of Both Eyes - 05/02/2023 Pseudophakia - 05/02/2023 Posterior Vitreous Detachment of Both Eyes - 05/02/2023 H/O Mitral Valve Disease - 02/24/2023 Director Private Current Use of Anticoagulant Therapy - 04/15/2022 Obstructive Sleep Apnea Syndrome - 04/15/2022 Comment: Uses cpap Type 2 Diabetes Mellitus With Diabetic Chronic Kidney Disease (Hcc) - 04/15/2022 Osteoarthritis of Spine With Radiculopathy, Lumbar Region - 02/21/2021 Essential Tremor - 06/22/2020 Rotator Cuff Tear Arthropathy, Left - 04/13/2020 S/P Reverse Total Shoulder Arthroplasty, Right - 03/04/2020 Chronic Diastolic Congestive Heart Failure (Hcc) - 09/24/2018 Pulmonary Htn ([facility]) - 09/24/2018 Malignant Neoplasm of Left Breast in Female, Estrogen Receptor Positive ([facility]) - 02/24/2018 Persistent Atrial Fibrillation ([facility]) - 08/18/2017 Comment: Patient elected to stop eliquis and declined coumadin. Started asa a day. Aware of risks. Sees [facility] cardiology in [place] Morbid Obesity With Bmi of 40.0-44.9, Adult (Hcc) - 08/01/2017 Rotator Cuff Tear Arthropathy, Right - 06/24/2016 History of Total Bilateral Knee Replacement - 09/24/2011 Essential Hypertension, Benign - 07/01/2011 ROS: REVIEW OF SYSTEMS GENERAL: No weight loss- some gain, malaise or fevers/chills HEENT: Negative for frequent or significant headaches, No changes in hearing, some changes in vision as above. NECK: Negative for lumps, goiter, pain and significant neck swelling RESPIRATORY: Negative for cough, hemoptysis, some wheezing with climbing stairs, + dyspnea or shortness of breath with exertion CARDIOVASCULAR: Negative for chest pain, leg swelling, + orthopnea- uses CPAP, always palpitations-has Afib GI: No nausea, vomiting, or diarrhea/constipation. No hematochezia/melena. occ heartburn or reflux symptoms. : No history of dysuria, no frequency or incontinence MUSCULOSKELETAL: Negative for joint pain or swelling. SKIN: Negative for lesions, rash, and itching ENDOCRINE: Some urgency, no polyuria, polydipsia and goiter NEURO: No history of headaches, syncope, paralysis, no seizures, + essential tremors MOOD: Negative for depression, anxiety, or suicidal ideation. PAST MEDICAL HISTORY No date: Abnormal EKG Comment: afib, inf [place] age undetermined No date: Atrial fibrillation (HCC) 03/2018: Breast cancer ([facility]) Comment: left breast 09/10/2021: Closed fracture of right distal radius 09/24/2018: Congestive heart failure ([facility]) No date: Epistaxis Comment: balloon out osteo 2004: History of colonoscopy Comment: Per Dr. Stoney Hernandez , normal No date: HTN (hypertension) No date: Hyperglycemia No date: Knee pain, chronic Comment: Lt No date: Migraines Comment: stopped when she retired 2004: Normal cardiac stress test Comment: Dr. Romero No date: Osteoarthritis No date: Seasonal allergies 04/11/2016: Type 2 diabetes mellitus without complication, without long-term current use of insulin ([facility]) PAST SURGICAL HISTORY 2011: ARTHRP KNE CONDYLE&PLATU MEDIAL&LAT COMPARTMENTS Comment: Knee replacement, total, right : ARTHRP KNE CONDYLE&PLATU MEDIAL&LAT COMPARTMENTS Comment: Knee replacement, total, left 2003: BIOPSY BREAST OPEN INCISIONAL Comment: Bx of breast, incisional left 02/28/10: LAPAROSCOPIC APPENDECTOMY 1973: LIG/TRNSXJ FLP TUBE ABDL/VAG APPR UNI/BI Comment: Tubal ligation 03/27/2018: PAST SURGICAL HISTORY OF; Left Comment: biopsy and lumpectomy left breast breast with lymph node removal x 4 No date: PAST SURGICAL HISTORY OF; Right Comment: shoulder surgery 03/09/2020: PICC LINE INSERT/CONSULT Comment: No date: TONSILLECTOMY & ADENOIDECTOMY <AGE 12 Comment: T/A (under age 11 years) 1974: TOTAL ABDOMINAL HYSTERECT W/WO RMVL TUBE OVARY Comment: Hysterectomy, DANYELLE Medication List Current Outpatient Medications Medication Sig Dispense Refill magnesium oxide 400 mg magnesium tab Take 400 mg by mouth once daily. melatonin 1 mg tablet Take 2 mg by mouth daily at bedtime. POTASSIUM ORAL Take 1 capsule by mouth once daily. valsartan (DIOVAN) 160 mg tablet Take 1 tablet by mouth once daily. 90 tablet 3 furosemide (LASIX) 40 mg tablet Take 1 tablet by mouth once daily. 90 tablet 3 metoprolol succinate ER (TOPROL XL) 50 mg 24 hr tablet Take 1 tablet by mouth once daily. 90 tablet3 rivaroxaban (XARELTO) 20 mg tablet Take 1 tablet by mouth daily with dinner. 90 tablet 3 vit C,G-Lg-jcnhv-lutein-zeaxan (PRESERVISION AREDS-2) 250-90-40-1 mg Take 1 capsule by mouth twice daily with meals. Cholecalciferol, Vitamin D3, 50 mcg (2,000 unit) cap Take 1 capsule by mouth once daily. thiamine HCl (VITAMIN B-1 ORAL) Take 250 mg by mouth once daily. multivitamins(DAILY MULTIVITAMIN TAB) Take one(1) tablet daily. 0 Current Facility-Administered Medications Medication Dose Route Frequency Provider Last Rate Last Admin perflutren lipid microspheres 1.3 mL in NaCl (PF) 0.9% 10 mL injection (DEFINITY) INTRAVENOUS DIRECTED PRN Anuj Navarro MD sodium chloride 0.9 % (flush) 10 mL (BD POSIFLUSH) 10 mL INTRAVENOUS DIRECTED PRN Alexa Navarro MD Weight Summary: Weight Change: Body mass index is 41.23 kg/m . Last Wt 11/27/23 : 95.3 kg (210 lb) 08/25/23 : 93.3 kg (205 lb 9.6 oz) 03/12/23 : 92.4 kg (203 lb 12.8 oz) 02/24/23 : 93.9 kg (207 lb) 10/16/22 : 94.6 kg (208 lb 9.6 oz) Physical Exam: General Appearance: well appearing, alert and oriented. Skin: no suspicious lesion, no rash, no open sores Head: normocephalic, no obvious masses, lesions, tenderness or abnormalities. Ears: external ears normal, canals clear, TM's normal. Hearing to conversational voice intact. Nose/Sinuses: nares normal, septum midline, mucosa normal, no drainage or sinus tenderness. Oropharynx: lips, mucosa, and tongue normal, oropharynx normal. Neck: trachea midline, thyroid without mass or nodularity, thyroid moves normally with swallow, no regional lymphadenopathy. Carotids normal upstroke, no bruit or thrill. Lungs: Chest rise & fall symmetrical, Lungs clear to auscultation. No wheezing or rhonchi. No rales. Abdomen: normal bowel sounds, no mass, non-tender Heart: S1S2, no gallop, no rub, soft DARRON at apex Lymph Nodes: no lymphadenopathy. Ext: no clubbing, cyanosis or edema. Mood: bright affect, speech clear, answers questions appropriately SCREENINGS Health Maintenance Listing Pneumococcal Vaccine: 65+(1 of 2 - PCV) Depression Screening Anxiety Screening Shingrix Vaccine(1 of 2) RSV Vaccine(1 - 1-dose 60+ series) BP Controlled (<130/80) Advance Directive Discussion Diabetic Foot Exam TEST RESULTS: Lab Studies: Date of lab studies: - glucose - potassium - Creatinine, gfr - LFTs Lipid: WBC, H&H, Platelets: A1C: Vitamin D: Other: Mini-cog- 5 A/P: ASSESSMENT/PLAN: 1. Essential tremor - ICD9: 333.1, ICD10: G25.0 (primary diagnosis) Stable 2. Encounter for screening examination for other mental health and behavioral disorders - ICD9: V79.8, ICD10: Z13.39 Stable- staying busy - ANXIETY SCREENING 3. Screening for depression - ICD9: V79.0, ICD10: Z13.31 Stable - DEPRESSION SCREENING 4. Persistent atrial fibrillation (HCC) - ICD9: 427.31, ICD10: I48.19 Anticoagulated 5. Malignant neoplasm of overlapping sites of left breast in female, estrogen receptor positive (HCC) - ICD9: 174.8, V86.0, ICD10: C50.812, Z17.0 Just had mammogram 6. Type 2 diabetes mellitus with diabetic chronic kidney disease, unspecified CKD stage, unspecified whether terminal operations manager insulin use (HCC) - ICD9: 250.40, 585.9, ICD10: E11.22 - Controlled - Continue current medications 7. Obstructive sleep apnea syndrome - ICD9: 327.23, ICD10: G47.33 Wears CPAP 8. Essential hypertension, benign - ICD9: 401.1, ICD10: I10 - Controlled - Recommend home blood pressure monitoring, to bring results to next visit - Encouraged sodium restriction, DASH or Mediterranean diet - Recommend regular aerobic exercise Discussed treatment plan and patient voices understanding. Patient's questions answered appropriately. Medications and potential side effects were discussed and patient voices understanding. Return to the office as scheduled or as needed for worsening/no improvement. Belkys Mcintyre APRN.CNP Follow Up Plans: 6 months documented in this encounterWayne Hospital08-08-2024 Note* Letter - Coordinator, Mammography - 11/13/2023 9:37 PM EDT November 14, 2023 PID: [id number] Kesha Carmichael [address] [place] [address] Dear Ms. Carmichael, We are pleased to inform you that the results of your recent breast imaging exam on 11/12/2023 are normal. Breast tissue can be either dense or not dense. Dense tissue makes it harder to find breast cancer on a mammogram and also raises the risk of developing breast cancer. Your breast tissue is not dense. Talk to your healthcare provider about breast density, risks for breast cancer, and your individual situation. Early detection of cancer is very important. We also understand recommendations regarding breast cancer screening are controversial. Please discuss with your primary care provider which strategy is best for you and whether a mammogram is right for you. Your imaging studies and report will be [facility] file at [facility] as part of your permanent medical record and are available for your continuing care. Thank you for allowing us to help in meeting your health care needs. Sincerely, Dr. Oquendo Interpreting Radiologist [facility] (Normal over 40) [facility]08-08-2024 Miscellaneous Notes* Letter - Coordinator, Mammography - 11/13/2023 9:37 PM EDT November 14, 2023 PID: [id number] Kesha Carmichael [address] [place] [address] Dear Ms. Carmichael, We are pleased to inform you that the results of your recent breast imaging exam on 11/12/2023 are normal. Breast tissue can be either dense or not dense. Dense tissue makes it harder to find breast cancer on a mammogram and also raises the risk of developing breast cancer. Your breast tissue is not dense. Talk to your healthcare provider about breast density, risks for breast cancer, and your individual situation. Early detection of cancer is very important. We also understand recommendations regarding breast cancer screening are controversial. Please discuss with your primary care provider which strategy is best for you and whether a mammogram is right for you. Your imaging studies and report will be kept on file at [facility] as part of your permanent medical record and are available for your continuing care. Thank you for allowing us to help in meeting your health care needs. Sincerely, Dr. Oquendo Interpreting Radiologist [facility] (Normal over 40) documented in this encounterWayne Hospital08-07-2024 History of Present illness Narrative* Abran Villanueva Mammo Tech - 11/12/2023 1:50 PM EDT Radiology Service Progress Note PATIENT NAME: Kesha Carmichael DATE OF SERVICE: November 12, 2023 TIME: 1:35 PM PATIENT IDENTITY VERIFICATION COMPLETED USING TWO (2) IDENTIFIERS: Name and Date of confirmedby patient verbally. FALL SCREENING: Has the patient had 2 falls in the last year or 1 fall with injury or currently using an Ambulatory Assistive Device (Walker, Cane, Wheelchair, Crutches, etc.)? No PATIENT GENDER DATA: Female. status: : No status: NO. PATIENT RELEVANT IMPLANT DATA REVIEWED: Not Applicable PATIENT PRESENTS WITH AN IMPLANTABLE OR ATTACHED TUNNEL ELASTIC OPERATOR ZIGZAG: No RADIOLOGY DEPARTMENT: Mammography PERIPHERAL IV DATA: Not applicable SIGNED BY: Delano Haywood November 12, 2023 1:35 PM documented in this encounterWayne Hospital08-07-2024 NoteHNO ID: [id number] Author: ABRAN VILLANUEVA Mammo Tech Service: ? Author Type: Nuclear Equipment Operator Type: Progress Notes Filed: 11/12/2023 13:44 Note Text: Radiology Service Progress Note PATIENT NAME: Kesha Carmichael DATE OF SERVICE: November 12, 2023 TIME: 1:35 PM PATIENT IDENTITY VERIFICATION COMPLETED USING TWO (2) IDENTIFIERS: Name and Date of confirmed by patient verbally. FALL SCREENING: Has the patient had 2 falls in the last year or 1 fall with injury or currently using an Ambulatory Assistive Device (Walker, Cane, Wheelchair, Crutches, etc.)? No PATIENT GENDER DATA: Female. status: : No status: NO. PATIENT RELEVANT IMPLANT DATA REVIEWED: Not Applicable PATIENT PRESENTS WITH AN IMPLANTABLE OR ATTACHED TUNNEL ELASTIC OPERATOR ZIGZAG: No RADIOLOGY DEPARTMENT: Mammography PERIPHERAL IV DATA: Not applicable SIGNED BY: Abran Villanueva Bahu November 12, 2023 1:35 [facility]07-26-2024 NoteDate of Procedure 10/31/2023. Nuclear Equipment Operator Information [employer] Space Salesperson: LV. Interpretation Right Eye Hyperfluorescence, Hypofluorescence. Left Eye Hyperfluorescence, Hypofluorescence.[id number] NoteDate of Procedure 10/31/2023. Nuclear Equipment Operator Information [employer] Pages Space Salesperson: LV. Interpretation Right Eye Findings include Drusen; Negative for Intraretinal fluid, Subretinal fluid. Left Eye Findings include Drusen; Negative for Intraretinal fluid, Subretinal fluid.[id number] History of Present illness Narrative* Abiola Weaver MD - 10/31/2023 12:30 PM EDT HPI: Patient presents for 6 mos f/u appt. Occasionally sees wavy lines with difficulty reading but this has been about the same. Stable floaters, no consistent flashes. Wondering if melatonin will help with AMD. Impression: 78 year old Female PAST MEDICAL HISTORY Diagnosis Date Abnormal EKG afib, inf OK age undetermined Atrial fibrillation (HCC) Breast cancer (HCC) 03/2018 left breast Closed fracture of right distal radius 09/10/2021 Congestive heart failure (HCC) 09/24/2018 Epistaxis balloon out osteo History of colonoscopy [address] Stoney Hernandez , normal HTN (hypertension) Hyperglycemia Knee pain, chronic Lt Migraines stopped when she retired Normal cardiac stress test 2004 Dr. Romero Osteoarthritis Seasonal allergies Type 2 diabetes mellitus without complication, without long-term current use of insulin ([facility]) 04/11/2016 #. Intermediate nonexudative AMD, both eyes - strong FH, sisters, cousins etc - Nonsmoker - stable OU - On AREDS2 vitamins BID #. Pseudophakia , both eyes - stable OU #. PVD, both eyes - stable both eyes PLAN: Discussed the above findings with the patient AREDS2 mediterranean diet discussed Return to clinic ~ 6 months NEXT: DILATE both eyes, OCT both eyes, AUTOFLUORESCENCE OU I have confirmed and edited as necessary the relevant ophthalmic history, ROS, and the neuro exam findings as obtained by others. I have seen and examined this patient. I have discussed the case and the management of this patient's care with the Resident and/or fellowif applicable. I also have reviewed and agree with the assessment and plan as stated above and agree with all of its relevant components. Abiola Weaver MD, PhD Vitreoretinal Surgery & Ocular Inflammatory Diseases [facility] documented in this encounterWayne Hospital07-26-2024 NoteHNO ID: [id number] Author: ABIOLA WEAVER MD Service: ? Author Type: Physician Type: Progress Notes Filed: 10/31/2023 14:19 Note Text: HPI: Patient presents for 6 mos f/u appt. Occasionally sees wavy lines with difficulty reading but this has been about the same. Stable floaters, no consistent flashes. Wondering if melatonin will help with AMD. Impression: 78 year old Female PAST MEDICAL HISTORY Diagnosis Date Abnormal EKG afib, inf OK age undetermined Atrial fibrillation (HCC) Breast cancer ([facility]) 03/2018 left breast Closed fracture of right distal radius 09/10/2021 Congestive heart failure ([facility]) 09/24/2018 Epistaxis balloon out osteo History of colonoscopy [address] Stoney Hernandez , normal HTN (hypertension) Hyperglycemia Knee pain, chronic Lt Migraines stopped when she retired Normal cardiac stress test 2004 Dr. Romero Osteoarthritis Seasonal allergies Type 2 diabetes mellitus without complication, without long-term current use of insulin ([facility]) 04/11/2016 #. Intermediate nonexudative AMD, both eyes - strong FH, sisters, cousins etc - Nonsmoker - stable OU - On AREDS2 vitamins BID #. Pseudophakia , both eyes - stable OU #. PVD, both eyes - stable both eyes PLAN: Discussed the above findings with the patient AREDS2 mediterranean diet discussed Return to clinic ~ 6 months NEXT: DILATE both eyes, OCT both eyes, AUTOFLUORESCENCE OU I have confirmed and edited as necessary the relevant ophthalmic history, ROS, and the neuro exam findings as obtained by others. I have seen and examined this patient. I have discussed the case and the management of this patient's care with the Resident and/or fellow if applicable. I also have reviewed and agree with the assessment and plan as stated above and agree with all of its relevant components. Abiola Weaver MD, PhD Vitreoretinal Surgery AND Ocular Inflammatory Diseases [facility]05-20-2024 History of Present illness Narrative* Anuj Navarro MD - 08/25/2023 11:00 AM EDT Images from the original note were not included. [facility] SE[facility]AL CARDIOLOGY Cardiology ([facility]) [address] [address] OUTPATIENT VISIT DATE 08/25/2023 PRIMARY CARE PHYSICIAN: Chip Arreola MD [address] [place] [address] HISTORY OF PRESENT ILLNESS: Ms. Carmichael is a 78 year old woman with a history of permanent atrial fibrillation, hypertension, diastolic congestive heart failure and mild to moderate mitral/tricuspid valve regurgitation who is here for routine follow-up. Continues to do well from a functional standpoint. She has not noticed palp itations or heart racing. She has not had symptoms concerning for congestive heart failure including PND, orthopnea, lower extremity edema. She denies symptoms of chest pain or pressure. PAST MEDICAL HISTORY Diagnosis Date Abnormal EKG afib, inf [place] age undetermined Atrial fibrillation (HCC) Breast cancer (HCC) 03/2018 left breast Closed fracture of right distal radius 09/10/2021 Congestive heart failure (HCC) 09/24/2018 Epistaxis balloon out osteo History of colonoscopy [address] Stoney Hernandez , normal HTN (hypertension) Hyperglycemia Knee pain, chronic Lt Migraines stopped when she retired Normal cardiac stress test 2004 Dr. Romero Osteoarthritis Seasonal allergies Type 2 diabetes mellitus without complication, without long-term current use of insulin ([facility]) 04/11/2016 PAST SURGICAL HISTORY Procedure Laterality Date ARTHRP KNE CONDYLE&PLATU MEDIAL&LAT COMPARTMENTS 2012 Knee replacement, total, right ARTHRP KNE CONDYLE&PLATU MEDIAL&LAT COMPARTMENTS Knee replacement, total, left BIOPSY BREAST OPEN INCISIONAL 2004 Bx of breast, incisional left LAPAROSCOPIC APPENDECTOMY 02/28/10 LIG/TRNSXJ FLP TUBE ABDL/VAG APPR UNI/BI 1973 Tubal ligation PAST SURGICAL HISTORY OF Left 03/27/2018 biopsy and lumpectomy left breast breast with lymph node removal x 4 PAST SURGICAL HISTORY OF Right shoulder surgery PICC LINE INSERT/CONSULT 03/09/2020 TONSILLECTOMY & ADENOIDECTOMY <AGE 11 T/A (under age 11 years) TOTAL ABDOMINAL HYSTERECT W/WO RMVL TUBE OVARY 1975 Hysterectomy, DANYELLE SOCIAL HISTORY Social History Tobacco Use Smoking status: Never Smokeless tobacco: Never Vaping Use Vaping Use: Never used Substance Use Topics Alcohol use: No Drug use: No FAMILY HISTORY Problem Relation Age of Onset Breast Cancer Mother Hypertension Mother Hypertension Father Heart Father [place] Diabetes Father Kidney Disease Sister Heart disease Sister Cancer Sister breast COPD Sister Hypertension Sister Macular Degen Sister Arthritis Sister Cancer Sister breast Hypertension Sister Macular Degen Sister Diabetes Sister Tremor Sister Hypertension Sister Cancer Sister uterine,breast Blood Clots Sister Aneurysm Brother Hypertension Brother Diabetes Brother other (MVA) Brother Cancer Daughter uterine Hypertension Daughter Hypertension Son Hypertension Son Breast Cancer Maternal Grandmother Breast Cancer Other niece x3 Colon Cancer Other nephew Stroke Paternal Grandmother No Known Problems Maternal Grandfather in his 70's other (TB) Paternal Grandfather ALLERGIES: ALLERGIES Allergen Reactions Adhesive Tape-Silic* Rash ALL hydrogels, hydrocolloids, adhesives Anastrozole Other: See Comments migraines Aquacel-Ag [Silver-* Itching And redness Azithromycin Swelling facial Exemestane Other: See Comments Decreased use of right arm Lisinopril Cough MEDICATIONS: POTASSIUM ORAL^Take 1 capsule by mouth once daily.^Disp: ^Rfl: valsartan (DIOVAN) 160 mg tablet^Take 1 tablet by mouth once daily.^Disp: 90 tablet^Rfl: 3 furosemide (LASIX) 40 mg tablet^Take 1 tablet by mouth once daily.^Disp: 90 tablet^Rfl: 3 metoprolol succinate ER (TOPROL XL) 50 mg 24 hr tablet^Take 1 tablet by mouth once daily.^Disp: 90 tablet^Rfl: 3 rivaroxaban (XARELTO) 20 mg tablet^Take 1 tablet by mouth daily with dinner.^Disp: 90 tablet^Rfl: 3 vit C,J-Ag-vllxq-lutein-zeaxan (PRESERVISION AREDS-2) 250-90-40-1 mg^Take 1 capsule by mouth twice daily with meals.^Disp: ^Rfl: Cholecalciferol, Vitamin D3, 50 mcg (2,000 unit) cap^Take 1 capsule by mouth once daily.^Disp: ^Rfl: thiamine HCl (VITAMIN B-1 ORAL)^Take 250 mg by mouth once daily. ^Disp: ^Rfl: multivitamins(DAILY MULTIVITAMIN TAB)^Take one(1) tablet daily.^Disp: ^Rfl: 0 REVIEW OF SYSTEMS: Review of Systems Constitutional: Negative for chills, fever, malaise/fatigue and weight loss. HENT: Negative for hearing loss and sore throat. Eyes: Negative for blurred vision and double vision. Respiratory: Negative. Cardiovascular: Negative. Gastrointestinal: Negative. Genitourinary: Negative for dysuria, frequency, hematuria and urgency. Musculoskeletal: Negative. Skin: Negative. Neurological: Positive for tremors. Negative for dizziness, seizures, loss of consciousness, weakness and headaches. Endo/Heme/Allergies: Negative for environmental allergies. Does not bruise/bleed easily. Psychiatric/Behavioral: Negative for depression. PHYSICAL EXAMINATION: BP 118/86 Pulse 72 Ht 152.4 cm (5') Wt 93.3 kg (205 lb 9.6 oz) SpO2 98% BMI 40.15 kg/m General: Pleasant somewhat obese woman sitting appears comfortable no apparent distress. She is alert and oriented x3 HEENT: Carotid upstrokes are brisk bilaterally without bruits. No JVD appreciated Pulmonary: Lungs are clear no rales, wheezes, or rhonchi. Cardiovascular: Normal S1-S2 with an irregular regular rhythm and normal rate. No murmurs, rubs, orgallops extremities: Warm, well-perfused, no lower extremity edema. CARDIOVASCULAR MEDICINE TESTING: ECG in the office 07/29/2022: Atrial fibrillation, left axis deviation. ECG in the office 05/21/2021: Atrial fibrillation with controlled ventricular response. Heart rate 84 bpm. Normal axis and intervals. No significant ST or T wave changes ECG in the office 01/29/2021: Normal sinus rhythm with left axis deviation poor R wave progression anteriorly with incomplete Q waves in leads III and aVF. Lexiscan Myoview stress test 03/10/2018: CONCLUSIONS: 1. SPECT Perfusion Study: Normal. 2. There is no scintigraphic evidence for inducible ischemia. 3. No evidence of scarred myocardium. 4. Functional capacity N/A (pharmacological). 5. Left ventricle is normal in size. The left ventricle systolic function is normal. 6. Right ventricle is normal in size. The right ventricle systolic function is normal. 7. This is a low risk scan. Gated Stress FBP LVEF % 60 Zio Monitor 12/23/19-01/04/20 Min HR 39 bpm, max HR 96 bpm, average HR 52 bpm Predominant rhythm normal sinus Rare Isolated SVE's (<1%) Echocardiogram 07/21/2023: - Technically difficult exam due to body habitus. - Exam indication: Atrial fibrillation - The left ventricle is normal in size. There is mild concentric left ventricular hypertrophy. Leftventricular systolic function is mildly decreased. EF = 50 5% (2D 4-ch.) Left ventricular diastolic function was not evaluated due to AF. - The right ventricle is normal in size. Right ventricular systolic function is normal. - The left atrial cavity is moderately dilated. - There are no significant valvular abnormalities. - The patient has not had a prior CC echocardiographic exam for comparison. Echocardiogram 09/04/2018: Left ventricular systolic function is normal. Estimated ejection fraction is 55%. Mild concentric left ventricle hypertrophy. Left atrium is. moderately enlarged Right atrium is mildly enlarged Mild focal mitral valve calcification of the anterior leaflets with 1+ eccentric mitral valve regurgitation. Moderate 2+ eccentric tricuspid valve insufficiency RV systolic pressure estimated to be 46 mmHg. Event monitor 12/23/2019: Duration 11 days Minimum heart rate 39 bpm: Heart rate of 96 bpm with an average of 52 bpm Predominant underlying rhythm normal sinus with isolated SVEs which were rare at less than 1% Cardioversion 11/30/18 IMPRESSION: Ms. Carmichael is a 78 year old woman with a history of paroxysmal atrial fibrillation (likely now persistent), chronic diastolic heart failure, pulmonary hypertension, hypertension, and obstructive sleep apnea who presents for routine follow-up. PLAN AND RECOMMENDATIONS: 1. Persistent atrial fibrillation (HCC) - ICD9: 427.31, ICD10: I48.19 (primary diagnosis) Patient doing well without symptoms of palpitations. Heart rate seems adequate in the office visit today. She is on Xarelto for stroke risk reduction. She did have questions regarding Watchman procedure. She would have to be referred to electrophysiology for evaluation. She did not want to go for an evaluation at this time 2. Chronic diastolic congestive heart failure (HCC) - ICD9: 428.32, 428.0, ICD10: I50.32 Well-controlled on current diuretic therapy low-sodium diet 3. H/O mitral valve disease - ICD9: V12.59, ICD10: Z86.79 Minimal mitral and tricuspid valve regurgitation noted on most recent echocardiogram 4. Essential hypertension, benign - ICD9: 401.1, ICD10: I10 Well-controlled on current regimen 5. Pulmonary HTN (HCC) - ICD9: 416.8, ICD10: I27.20 6. Morbid obesity with BMI of 40.0-44.9, adult (HCC) - ICD9: 278.01, V85.41, ICD10: E66.01, Z68.41 Discussed dietary modification for further improvements in cardiovascular risk reduction Anuj Navarro MD documented in this encounterWay[facility]03-22-2024 Miscellaneous Notes* Telephone Encounter - Viola YbarraVIJAY - 06/27/2023 1:15 PM EDT Patient MyChart message requesting the following refill Refill(s) Requested: Requested Prescriptions Pending Prescriptions Disp Refills valsartan (DIOVAN) 160 mg tablet 90 tablet 3 Sig: Take 1 tablet by mouth once daily. furosemide (LASIX) 40 mg tablet 90 tablet 3 Sig: Take 1 tablet by mouth once daily. ALLERGIES Allergen Reactions Adhesive Tape-Silic* Rash ALL hydrogels, hydrocolloids, adhesives Anastrozole Other: See Comments migraines Aquacel-Ag [Silver-* Itching And redness Azithromycin Swelling facial Exemestane Other: See Comments Decreased use of right arm Lisinopril Cough (home) [phone] (cell) Last Office Visit Date: 03/12/2023 Last [facility] Visit: Visit date not found Future Appointment: Visit date not found The patients preferred pharmacy has been captured for this encounter? yes Request is for script(s) to be escript to pharmacy. Viola Ybarra LPN documented in this encounterWayne Hospital03-14-2024 Miscellaneous Notes* Telephone Encounter - Belkys Cruz LPN - 06/19/2023 1:38 PM EDT Patient notified. Verbalized understanding. * Telephone Encounter - Chip Arreola MD - 06/19/2023 11:56 AM EDT Potassium does not do that. That is absolutely incorrect. She is correct I cannot force her to take it. However, low potassium can kill people. Not taking itif it continues to be low is not a cordova decision. Increase her oral potassium intake via foods. Recheck labs in next week. If it continues to be low,will have to consider changing her meds. * Telephone Encounter - Ellen Kaur LPN - 06/19/2023 11:28 AM EDT Patient returned call and went over notes below from Dr Arreola with understanding. Patient said she is not taking the potassium rx, her [employer] Account [employer] told her potassium thickens her blood and she takes a blood thinner. Patient wants to try to get enough potassium with her diet. She thinks it was a fluke that the level was down that low. She said can not force me to take the medication. * Telephone Encounter - Chip Arreola MD - 06/19/2023 9:54 AM EDT Over the counter potassium is not strong enough. It is related to her other meds. Low potassium if it worsens can land her in the hospital. Taking the potassium if she intends to stay on her other meds is a must. I will just send it to a local pharmacy. * Telephone Encounter - Mathew Guzmán RN - 06/19/2023 9:21 AM EDT Phoned patient and given provider's message below with verbalized understanding. Patient states shewill be leaving town soon, not sure when, or for how long, still needs to make arrangements. Statesher potassium was not that low, and she will just take OTC potassium. Advised I don't believe she can get the prescribed dose otc, and advised a low potassium can cause heart rate to be irregular. Mary graham states her HR is already irregular. Patient states she is getting her hair done right now, andwill call back and ask for a nurse to discuss this. * Telephone Encounter - Chip Arreola MD - 06/18/2023 5:45 PM EDT Labs are stable. Add potassium once a day. Recheck bmp in two weeks. Verify if ok to send to local pharmacy to get started sooner and let me know documented in this encounterWayne Hospital12-06-2023 History of Present illness Narrative* Shannan Grimm, RT(R) - 03/12/2023 12:20 PM EST Radiology Service Progress Note PATIENT NAME: Kesha Carmichael DATE OF SERVICE: March 12, 2023 TIME: 12:15 PM PATIENT IDENTITY VERIFICATION COMPLETED USING TWO (2) IDENTIFIERS: Name and Date of confirmedby patient verbally. FALL SCREENING: Has the patient had 2 falls in the last year or 1 fall with injury or currently using an Ambulatory Assistive Device (Walker, Cane, Wheelchair, Crutches, etc.)? No PATIENT GENDER DATA: Female. status: : No status: NO. PATIENT RELEVANT IMPLANT DATA REVIEWED: Yes RADIOLOGY DEPARTMENT: General X-ray: Exam(s) Completed: Lower Extremity X- Ray(s): Ankle, Left and Wt. Bearing PERIPHERAL IV DATA: Not applicable SIGNED BY: RT Berto(R) March 12, 2023 12:15 PM documented in this encounterWayne Hospital12-06-2023 History of Present illness Narrative* Chip Arreola MD - 03/12/2023 11:32 AM EST Patient presents with: Abscess HPI: Patient presents today for office visit for bump on outside of left lower calf. Just above ankle. Some redness. Tender to touch. Feels warm. No drainage. No fevers. Is on xarelto for her a fib. No trauma. Had stubbed her fifth toes the week before . Did have some bruising on that side of the foot. Does not recall direct injury to that point. No bleeding issues. MEDICATIONS: Current Outpatient Medications Medication Sig metoprolol succinate ER (TOPROL XL) 50 mg 24 hr tablet Take 1 tablet by mouth once daily. rivaroxaban (XARELTO) 20 mg tablet Take 1 tablet by mouth daily with dinner. valsartan (DIOVAN) 160 mg tablet Take 1 tablet by mouth once daily. furosemide (LASIX) 40 mg tablet Take 1 tablet by mouth once daily. vit C,L-Mo-pfjye-lutein-zeaxan (PRESERVISION AREDS-2) 250-90-40-1 mg Take 1 capsule by mouth twice daily with meals. Cholecalciferol, Vitamin D3, 50 mcg (2,000 unit) cap Take 1 capsule by mouth once daily. thiamine HCl (VITAMIN B-1 ORAL) Take 250 mg by mouth once daily. multivitamins(DAILY MULTIVITAMIN TAB) Take one(1) tablet daily. Current Facility-Administered Medications Medication Dose Route Frequency perflutren lipid microspheres 1.3 mL in NaCl (PF) 0.9% 10 mL injection (DEFINITY) INTRAVENOUS DIRECTED PRN sodium chloride 0.9 % (flush) 10 mL (BD POSIFLUSH) 10 mL INTRAVENOUS DIRECTED PRN ALLERGIES: ALLERGIES Allergen Reactions Adhesive Tape-Silic* Rash ALL hydrogels, hydrocolloids, adhesives Anastrozole Other: See Comments migraines Aquacel-Ag [Silver-* Itching And redness Azithromycin Swelling facial Exemestane Other: See Comments Decreased use of right arm Lisinopril Cough PAST MEDICAL HISTORY Diagnosis Date Abnormal EKG afib, inf [place] age undetermined Atrial fibrillation (HCC) Breast cancer (HCC) 03/2018 left breast Closed fracture of right distal radius 09/10/2021 Congestive heart failure ([facility]) 09/24/2018 Epistaxis balloon out osteo History of colonoscopy [address] Stoney Hernandez , normal HTN (hypertension) Hyperglycemia Knee pain, chronic Lt Migraines stopped when she retired Normal cardiac stress test 2004 Dr. Romero Osteoarthritis Seasonal allergies Type 2 diabetes mellitus without complication, without long-term current use of insulin ([facility]) 04/11/2016 PAST SURGICAL HISTORY Procedure Laterality Date ARTHRP KNE CONDYLE&PLATU MEDIAL&LAT COMPARTMENTS 2012 Knee replacement, total, right ARTHRP KNE CONDYLE&PLATU MEDIAL&LAT COMPARTMENTS Knee replacement, total, left BIOPSY BREAST OPEN INCISIONAL 2004 Bx of breast, incisional left LAPAROSCOPIC APPENDECTOMY 02/28/10 LIG/TRNSXJ FLP TUBE ABDL/VAG APPR UNI/BI 1973 Tubal ligation PAST SURGICAL HISTORY OF Left 03/27/2018 biopsy and lumpectomy left breast breast with lymph node removal x 4 PAST SURGICAL HISTORY OF Right shoulder surgery PICC LINE INSERT/CONSULT 03/09/2020 TONSILLECTOMY & ADENOIDECTOMY <AGE 11 T/A (under age 11 years) TOTAL ABDOMINAL HYSTERECT W/WO RMVL TUBE OVARY 1975 Hysterectomy, DANYELLE FAMILY HISTORY Problem Relation Age of Onset Breast Cancer Mother Hypertension Mother Hypertension Father Heart Father [place] Diabetes Father Kidney Disease Sister Heart disease Sister Cancer Sister breast COPD Sister Hypertension Sister Macular Degen Sister Arthritis Sister Cancer Sister breast Hypertension Sister Macular Degen Sister Diabetes Sister Tremor Sister Hypertension Sister Cancer Sister uterine,breast Blood Clots Sister Aneurysm Brother Hypertension Brother Diabetes Brother other (MVA) Brother Cancer Daughter uterine Hypertension Daughter Hypertension Son Hypertension Son Breast Cancer Maternal Grandmother Breast Cancer Other niece x3 Colon Cancer Other nephew Stroke Paternal Grandmother No Known Problems Maternal Grandfather in his 70's other (TB) Paternal Grandfather Social History Tobacco Use Smoking status: Never Smokeless tobacco: Never Vaping Use Vaping Use: Never used Substance Use Topics Alcohol use: No Drug use: No Reviewed current medications, allergies, past medical history, surgical history, family history andsocial history today. REVIEW OF SYSTEMS All other reviewed and negative other than HPI. VITALS: BP 108/72 Pulse 86 Ht 152.4 cm (5') Wt 92.4 kg (203 lb 12.8 oz) SpO2 99% BMI 39.80 kg/m Last 4 Encounter Wt Readings: Date: Wt: 02/24/2023 93.9 kg (207 lb) 10/16/2022 94.6 kg (208 lb 9.6 oz) 07/29/2022 95.3 kg (210 lb) 04/15/2022 95.9 kg (211 lb 6.4 oz) PHYSICAL EXAMINATION: General appearance: Well appearing, alert, in no acute distress, well-hydrated, well nourished. Skin: Skin color, texture, turgor normal, no suspicious rashes or lesions Head: Normocephalic, no masses, lesions, tenderness or abnormalities Extremities: trace edema. Has some mild swelling above the lateral malleolus. Uncomfortable to deeppressure. No signs of cellulitis. No warm or hot. Musculoskeletal: No joint swelling, deformity, or tenderness Peripheral pulses: Normal Neuro: Negative. ASSESSMENT/PLAN: 1. Pain of left lower extremity - ICD9: 729.5, ICD10: M79.605 (primary diagnosis) - elevation and heat. Suspect a resolving hematoma. Check below. Red flags for re-assessment reviewed with patient in detail. Call if symptoms worsen at all or if not better in one to two weeks - XR ANKLE GENERAL 3V AP/LAT/OBL LEFT - US LEG VEIN DVT UNL VAS LAB 2. Persistent atrial fibrillation (HCC) - ICD9: 427.31, ICD10: I48.19 - continue meds. 3. Essential hypertension, benign - ICD9: 401.1, ICD10: I10 - Controlled - Continue current medications 4. Pulmonary HTN (HCC) - ICD9: 416.8, ICD10: I27.20 -stable. Chip Arreola MD documented in this encounterWayne Hospital11-29-2023 Miscellaneous Notes* Telephone Encounter - Alvaro Arechiga LPN - 03/05/2023 10:37 AM EST Patient's request for medication is as follows: Requested Prescriptions Pending Prescriptions Disp Refills metoprolol succinate ER (TOPROL XL) 50 mg 24 hr tablet 90 tablet 3 Sig: Take 1 tablet by mouth once daily. rivaroxaban (XARELTO) 20 mg tablet 90 tablet 3 Sig: Take 1 tablet by mouth daily with dinner. Last seen 02/24/2023. Follow up scheduled for 02/2024. Prescription(s) as above. Please process accordingly. Alvaro Arechiga LPN documented in this encounterWayne Hospital11-20-2023 Instructions* Patient Instructions* Anuj Navarro MD - 02/24/2023 10:34 AM EST We will repeat an echocardiogram in July documented in this encounterWayne Hospital11-20-2023 History of Present illness Narrative* Anuj Navarro MD - 02/24/2023 10:20 AM EST Images from the original note were not included. [facility] SECTION OF REGIONAL CARDIOLOGY Cardiology ([facility]) [address] [id number] OUTPATIENT VISIT DATE 02/24/2023 PRIMARY CARE PHYSICIAN: Chip Arreola MD [address] [place] [address] HISTORY OF PRESENT ILLNESS: Ms. Carmichael is a 77 year old woman with a history of permanent atrial fibrillation, hypertension, diastolic congestive heart failure and mild to moderate mitral/tricuspid valve regurgitation who is here for routine follow-up. Since her last visit, she continues to do well. She denies symptoms of palp itation, heart racing, lightheadedness, dizziness, or syncope. She has not had symptoms concerning for congestive heart failure including PND, orthopnea, or lower extremity edema. PAST MEDICAL HISTORY Diagnosis Date Abnormal EKG afib, inf [place] age undetermined Atrial fibrillation (HCC) Breast cancer (HCC) 03/2018 left breast Closed fracture of right distal radius 09/10/2021 Congestive heart failure ([facility]) 09/24/2018 Epistaxis balloon out osteo History of colonoscopy [address] Stoney Hernandez , normal HTN (hypertension) Hyperglycemia Knee pain, chronic Lt Migraines stopped when she retired Normal cardiac stress test 2004 Dr. Romero Osteoarthritis Seasonal allergies Type 2 diabetes mellitus without complication, without long-term current use of insulin ([facility]) 04/11/2016 PAST SURGICAL HISTORY Procedure Laterality Date ARTHRP KNE CONDYLE&PLATU MEDIAL&LAT COMPARTMENTS 2011 Knee replacement, total, right ARTHRP KNE CONDYLE&PLATU MEDIAL&LAT COMPARTMENTS Knee replacement, total, left BIOPSY BREAST OPEN INCISIONAL 2003 Bx of breast, incisional left LAPAROSCOPIC APPENDECTOMY 02/28/10 LIG/TRNSXJ FLP TUBE ABDL/VAG APPR UNI/BI 1973 Tubal ligation PAST SURGICAL HISTORY OF Left 03/27/2018 biopsy and lumpectomy left breast breast with lymph node removal x 4 PAST SURGICAL HISTORY OF Right shoulder surgery PICC LINE INSERT/CONSULT 03/09/2020 TONSILLECTOMY & ADENOIDECTOMY <AGE 11 T/A (under age 11 years) TOTAL ABDOMINAL HYSTERECT W/WO RMVL TUBE OVARY 1975 Hysterectomy, DANYELLE SOCIAL HISTORY Social History Tobacco Use Smoking status: Never Smokeless tobacco: Never Vaping Use Vaping Use: Never used Substance Use Topics Alcohol use: No Drug use: No FAMILY HISTORY Problem Relation Age of Onset Breast Cancer Mother Hypertension Mother Hypertension Father Heart Father [place] Diabetes Father Kidney Disease Sister Heart disease Sister Cancer Sister breast COPD Sister Hypertension Sister Macular Degen Sister Arthritis Sister Cancer Sister breast Hypertension Sister Macular Degen Sister Diabetes Sister Tremor Sister Hypertension Sister Cancer Sister uterine,breast Blood Clots Sister Aneurysm Brother Hypertension Brother Diabetes Brother other (MVA) Brother Cancer Daughter uterine Hypertension Daughter Hypertension Son Hypertension Son Breast Cancer Maternal Grandmother Breast Cancer Other niece x3 Colon Cancer Other nephew Stroke Paternal Grandmother No Known Problems Maternal Grandfather in his 70's other (TB) Paternal Grandfather ALLERGIES: ALLERGIES Allergen Reactions Adhesive Tape-Silic* Rash ALL hydrogels, hydrocolloids, adhesives Anastrozole Other: See Comments migraines Aquacel-Ag [Silver-* Itching And redness Azithromycin Swelling facial Exemestane Other: See Comments Decreased use of right arm Lisinopril Cough MEDICATIONS: valsartan (DIOVAN) 160 mg tablet Take 1 tablet by mouth once daily. furosemide (LASIX) 40 mg tablet Take 1 tablet by mouth once daily. metoprolol succinate ER (TOPROL XL) 50 mg 24 hr tablet Take 1 tablet by mouth once daily. rivaroxaban (XARELTO) 20 mg tablet Take 1 tablet by mouth daily with dinner. vit C,V-Xi-qzzud-lutein-zeaxan (PRESERVISION AREDS-2) 250-90-40-1 mg Take 1 capsule by mouth twice daily with meals. Cholecalciferol, Vitamin D3, 50 mcg (2,000 unit) cap Take 1 capsule by mouth once daily. thiamine HCl (VITAMIN B-1 ORAL) Take 250 mg by mouth once daily. multivitamins(DAILY MULTIVITAMIN TAB) Take one(1) tablet daily. REVIEW OF SYSTEMS: Review of Systems Constitutional: Negative for chills, fever, malaise/fatigue and weight loss. HENT: Negative for hearing loss and sore throat. Eyes: Negative for blurred vision and double vision. Respiratory: Negative. Cardiovascular: Negative. Gastrointestinal: Negative. Genitourinary: Negative for dysuria, frequency, hematuria and urgency. Musculoskeletal: Negative. Skin: Negative. Neurological: Positive for tremors. Negative for dizziness, seizures, loss of consciousness, weakness and headaches. Endo/Heme/Allergies: Negative for environmental allergies. Does not bruise/bleed easily. Psychiatric/Behavioral: Negative for depression. PHYSICAL EXAMINATION: BP 146/84 (BP Site: Right Arm, BP Position: Sitting, BP Cuff Size: Large Adult) Pulse 68 Wt 93.9 kg (207 lb) SpO2 97% BMI 40.43 kg/m General: Pleasant somewhat obese woman sitting appears comfortable no apparent distress. She is alert and oriented x3 HEENT: Carotid upstrokes are brisk bilaterally without bruits. No JVD appreciated Pulmonary: Lungs are clear no rales, wheezes, or rhonchi. Cardiovascular: Normal S1-S2 with an irregular regular pulse and with tachycardia. No murmurs, rubs, or gallops extremities: Warm, well-perfused, no lower extremity edema. CARDIOVASCULAR MEDICINE TESTING: ECG in the office 07/29/2022: Atrial fibrillation, left axis deviation. ECG in the office 05/21/2021: Atrial fibrillation with controlled ventricular response. Heart rate 84 bpm. Normal axis and intervals. No significant ST or T wave changes ECG in the office 01/29/2021: Normal sinus rhythm with left axis deviation poor R wave progression anteriorly with incomplete Q waves in leads III and aVF. Lexiscan Myoview stress test 03/10/2018: CONCLUSIONS: 1. SPECT Perfusion Study: Normal. 2. There is no scintigraphic evidence for inducible ischemia. 3. No evidence of scarred myocardium. 4. Functional capacity N/A (pharmacological). 5. Left ventricle is normal in size. The left ventricle systolic function is normal. 6. Right ventricle is normal in size. The right ventricle systolic function is normal. 7. This is a low risk scan. Gated Stress FBP LVEF % 60 Zio Monitor 12/23/19-01/04/20 Min HR 39 bpm, max HR 96 bpm, average HR 52 bpm Predominant rhythm normal sinus Rare Isolated SVE's (<1%) Event monitor 12/23/2019: Duration 11 days Minimum heart rate 39 bpm: Heart rate of 96 bpm with an average of 52 bpm Predominant underlying rhythm normal sinus with isolated SVEs which were rare at less than 1% Echocardiogram 09/04/2018: Left ventricular systolic function is normal. Estimated ejection fraction is 55%. Mild concentric left ventricle hypertrophy. Left atrium is. moderately enlarged Right atrium is mildly enlarged Mild focal mitral valve calcification of the anterior leaflets with 1+ eccentric mitral valve regurgitation. Moderate 2+ eccentric tricuspid valve insufficiency RV systolic pressure estimated to be 46 mmHg. Cardioversion 11/30/18 IMPRESSION: Ms. Carmichael is a 77 year old woman with a history of paroxysmal atrial fibrillation (likely now persistent), chronic diastolic heart failure, pulmonary hypertension, hypertension, and obstructive sleep apnea who presents for routine follow-up. PLAN AND RECOMMENDATIONS: 1. Persistent atrial fibrillation (HCC) - ICD9: 427.31, ICD10: I48.19 (primary diagnosis) Heart rates out of control on current regimen. She is on Xarelto for stroke risk reduction. - ECHO - PERFLUTREN LIPID MICROSPHERES 1.1 MG/ML INJECTION IN NS 10 ML - SODIUM CHLORIDE 0.9 % (FLUSH) INJECTION SYRINGE 2. Chronic diastolic congestive heart failure (HCC) - ICD9: 428.32, 428.0, ICD10: I50.32 Patient does well on low-sodium diet and current diuretic therapy 3. Pulmonary HTN (HCC) - ICD9: 416.8, ICD10: I27.20 4. Essential hypertension, benign - ICD9: 401.1, ICD10: I10 Well-controlled on current regimen. 5. H/O mitral valve disease - ICD9: V12.59, ICD10: Z86.79 Plan to repeat echocardiogram before next office visit. - ECHO - PERFLUTREN LIPID MICROSPHERES 1.1 MG/ML INJECTION IN NS 10 ML - SODIUM CHLORIDE 0.9 % (FLUSH) INJECTION SYRINGE Anuj Navarro MD documented [facility] encounter[facility] History of Present illness Narrative* Ree Paula RT(R) - 11/08/2022 2:30 PM EDT Radiology Service Progress Note PATIENT NAME: Kesha Carmichael DATE OF SERVICE: November 08, 2022 TIME: 2:22 PM PATIENT IDENTITY VERIFICATION COMPLETED USING TWO (2) IDENTIFIERS: Name and Date of confirmedby patient verbally. FALL SCREENING: Has the patient had 2 falls in the last year or 1 fall with injury or currently using an Ambulatory Assistive Device (Walker, Cane, Wheelchair, Crutches, etc.)? No PATIENT GENDER DATA: Female. status: : No status: NO. PATIENT RELEVANT IMPLANT DATA REVIEWED: Yes RADIOLOGY DEPARTMENT: Mammography PERIPHERAL IV DATA: Not applicable SIGNED BY: RT Augie(R) November 08, 2022 2:22 PM documented in this encounterWayne [facility]02-15-2023 Miscellaneous Notes* Telephone Encounter - Mathew Guzmán RN - 05/22/2022 10:20 AM EST Patient returned call and given provider's message below with verbalized understanding. * Telephone Encounter - Tobi Jones Ma - 05/22/2022 9:45 AM EST Left message to call office. 05/22/2022 9:46 AM Tobi Jones Ma * Telephone Encounter - Marybeth Zaidi APRN.CNP - 05/22/2022 8:54 AM EST Please call patient and let her know her potassium is in normal range. Marybeth Zaidi APRN.CNP documented in this encounterWay[facility]02-09-[facility]23 History of Present illness Narrative* ROSSANA Stahl) - 05/16/2022 2:40 PM EST Radiology Service Progress Note PATIENT NAME: Kesha Carmichael DATE OF SERVICE: May 16, 2022 TIME: 12:20 PM PATIENT IDENTITY VERIFICATION COMPLETED USING TWO (2) IDENTIFIERS: Name and Date of confirmedby patient verbally. FALL SCREENING: Has the patient had 2 falls in the last year or 1 fall with injury or currently using an Ambulatory Assistive Device (Walker, Cane, Wheelchair, Crutches, etc.)? No PATIENT GENDER DATA: Female. status: : No status: NO. PATIENT RELEVANT IMPLANT DATA REVIEWED: Not Applicable RADIOLOGY DEPARTMENT: General X-ray: Exam(s) Completed: Upper Extremity X- Ray(s): Shoulder, AP / TRUE AP / AXILLARY right PERIPHERAL IV DATA: Not applicable SIGNED BY: RT Favio(Charlie) May 16, 2022 12:20 PM documented in this encounterWayne [facility]01-09-2023 History of Past illness Narrative* Problem Noted Date Resolved Date Pulmonary arterial hypertension 04/15/2022 04/15/2022 Microalbuminuria 10/29/2021 12/24/2021 Closed fracture of right distal radius 04/15/2022 Acute pain of right wrist 08/22/20212022 Trochanteric bursitis of right hip 02/21/2021 04/15/2022 Pain 02/15/2021 04/15/2022 Right hip pain 02/15/2021 04/15/2022 Breast pain 12/03/2019 04/27/2021 Septic arthritis of shoulder, right 10/07/2018 10/23/2021 Chronic right shoulder pain 08/03/201812/2022 Breast cancer, left breast 02/24/201810/23 Overview: Added automatically from request for surgery [id number] Complete tear of right rotator cuff 06/24/2016 04/15/2022 Primary osteoarthritis of right shoulder 017 04/15/2022 Rotator cuff tear arthropathy, right 06/24/2016 10/23/2021 Arthritis of knee 05/31/2013 05/31/2013 Pain in joint, lower leg 09/24/2011 016 Arthritis of knee 09/11/2011 09/11/2011 Osteoarthrosis, unspecified whether generalized or localized, lower leg 09/09/2011 09/09/2011 Family history of breast cancer 07/01/2011 04/15/2022 Seborrheic Keratosis 07/26/2010 07/01/2011 Solar lentigo 07/26/2010 07/01/2011 Actinic skin damage 07/26/2010 07/01/2011 Other physical therapy 04/10/2010 2 Rotator cuff tear 04/03/2010 04/11/2016 Acute appendicitis without mention of peritoniti s 03/04/2010 08/06/2012 documented as of this encounter (statuses as of 04/15/2022) [facility] of Past illness Narrative* Problem Noted Date Resolved Date Pulmonary arterial hypertension 04/15/2022 04/15/2022 Microalbuminuria 10/29/2021 12/24/2021 Closed fracture of right distal radius 2 04/15/2022 Acute pain of right wrist 08/22/20212022 Trochanteric bursitis of right hip 02/21/2021 04/15/2022 Pain 02/15/2021 04/15/2022 Right hip pain 02/15/2021 04/15/2022 Breast pain 12/03/2019 04/27/2021 Septic arthritis of shoulder, right 10/07/2018 10/23/2021 Chronic right shoulder pain 08/03/2018 01/0 12/2022 Breast cancer, left breast 02/24/201810/23 Overview: Added automatically from request for surgery [id number] Complete tear of right rotator cuff 06/24/2016 04/15/2022 Primary osteoarthritis of right shoulder 017 04/15/2022 Rotator cuff tear arthropathy, right 06/24/2016 10/23/2021 Arthritis of knee 05/31/2013 05/31/2013 Pain in joint, lower leg 09/24/2011 016 Arthritis of knee 09/11/2011 09/11/2011 Osteoarthrosis, unspecified whether generalized or localized, lower leg 09/09/2011 09/09/2011 Family history of breast cancer 07/01/2011 04/15/2022 Seborrheic Keratosis 07/26/2010 07/01/2011 Solar lentigo 07/26/2010 07/01/2011 Actinic skin damage 07/26/2010 07/01/2011 Other physical therapy 04/10/2010 2 Rotator cuff tear 04/03/2010 04/11/2016 Acute appendicitis without mention of peritoniti s 03/04/2010 08/06/2012 documented as of this encounter (statuses as of 05/14/2022) [facility] illness Narrative* Problem Noted Date Resolved Date Pulmonary arterial hypertension 04/15/2022 04/15/2022 Microalbuminuria 10/29/2021 12/24/2021 Closed fracture of right distal radius 04/15/2022 Acute pain of right wrist 08/22/20212022 Trochanteric bursitis of right hip 02/21/2021 04/15/2022 Pain 02/15/2021 04/15/2022 Right hip pain 02/15/2021 04/15/2022 Breast pain 12/03/2019 04/27/2021 Septic arthritis of shoulder, right 10/07/2018 10/23/2021 Chronic right shoulder pain 08/03/201812/2022 Breast cancer, left breast 02/24/201810/23 Overview: Added automatically from request for surgery [id number] Complete tear of right rotator cuff 06/24/2016 04/15/2022 Primary osteoarthritis of right shoulder 017 04/15/2022 Arthritis of knee 05/31/2013 05/31/2013 Pain in joint, lower leg 09/24/2011 016 Arthritis of knee 09/11/2011 09/11/2011 Osteoarthrosis, unspecified whether generalized or localized, lower leg 09/09/2011 09/09/2011 Family history of breast cancer 07/01/2011 04/15/2022 Seborrheic Keratosis 07/26/2010 07/01/2011 Solar lentigo 07/26/2010 07/01/2011 Actinic skin damage 07/26/2010 07/01/2011 Other physical therapy 04/10/2010 2 Rotator cuff tear 04/03/2010 04/11/2016 Acute appendicitis without mention of peritoniti s 03/04/2010 08/06/2012 documented as of this encounter (statuses as of 05/17/2022) [facility] illness Narrative* Problem Noted Date Resolved Date Pulmonary arterial hypertension 04/15/2022 04/15/2022 Microalbuminuria 10/29/2021 12/24/2021 Closed fracture of right distal radius 04/15/2022 Acute pain of right wrist 08/22/20212022 Trochanteric bursitis of right hip 02/21/2021 04/15/2022 Pain 02/15/2021 04/15/2022 Right hip pain 02/15/2021 04/15/2022 Breast pain 12/03/2019 04/27/2021 Septic arthritis of shoulder, right 10/07/2018 10/23/2021 Chronic right shoulder pain 08/03/20180 12/2022 Breast cancer, left breast 02/24/201810/23 Overview: Added automatically from request for surgery [id number] Complete tear of right rotator cuff 06/24/2016 04/15/2022 Primary osteoarthritis of right shoulder 017 04/15/2022 Arthritis of knee 05/31/2013 05/31/2013 Pain in joint, lower leg 09/24/2011 016 Arthritis of knee 09/11/2011 09/11/2011 Osteoarthrosis, unspecified whether generalized or localized, lower leg 09/09/2011 09/09/2011 Family history of breast cancer 07/01/2011 04/15/2022 Seborrheic Keratosis 07/26/2010 07/01/2011 Solar lentigo 07/26/2010 07/01/2011 Actinic skin damage 07/26/2010 07/01/2011 Other physical therapy 04/10/2010 2 Rotator cuff tear 04/03/2010 04/11/2016 Acute appendicitis without mention of peritoniti s 03/04/2010 08/06/2012 documented as of this encounter (statuses as of 05/22/2022) [facility] Narrative* Problem Noted Date Diagnosed Date Resolved Date Pulmonary arterial hypertension 04/15/2022 04/15/2022 CKD (chronic kidney disease) stage 3, GFR 30-59 ml/min 10/29/2021 10/16/2022 Microalbuminuria 10/29/2021 12/24/2021 Closed fracture of right distal radius 09/10/2021 04/15/2022 Acute pain of right wrist 08/22/2021 Trochanteric bursitis of right hip 02/21/2021 04/15/2022 Pain 02/15/2021 04/15/2022 Right hip pain 02/15/2021 04/15/2022 Breast pain 12/03/2019 04/27/2021 Septic arthritis of shoulder, right 10/07/2018 10/23/2021 Chronic right shoulder pain 08/03/2018 04/15/2022 Breast cancer, left breast 02/24/2018 0 10/23/2021 Overview: Added automatically from request for surgery [id number] Complete tear of right rotator cuff 06/24/2016 04/15/2022 Primary osteoarthritis of right shoulder 06/24/2016 04/15/2022 Type 2 diabetes mellitus wit hout complication, without long-term current use of insulin 04/11/2016 10/16/2022 Arthritis of knee 05/31/2013 05/31/2013 Pain in joint, lower leg 09/24/2011 Arthritis of knee 09/11/2011 09/11/2011 Osteoarthrosis, unspecified whether generalized or localized, lower leg 09/09/201107/2011 Family history of breast cancer 07/01/2011 04/15/2022 Seborrheic Keratosis 07/26/2010 012 Solar lentigo 07/26/2010 07/01/2011 Actinic skin damage 07/26/2010 07/01/19 12 Other physical therapy 04/10/201006/30 Rotator cuff tear 04/03/2010 04/11/2016 Acute appendicitis without m ention of peritonitis 03/04/2010 08/06/2012 documented as of this encounter (statuses as of 02/09/2023) [facility] illness Narrative* Problem Noted Date Diagnosed Date Resolved Date Pulmonary arterial hypertension 04/15/2022 04/15/2022 CKD (chronic kidney disease) stage 3, GFR 30-59 ml/min 10/29/2021 10/16/2022 Microalbuminuria 10/29/2021 12/24/2021 Closed fracture of right distal radius 09/10/2021 04/15/2022 Acute pain of right wrist 08/22/2021 Trochanteric bursitis of right hip 02/21/2021 04/15/2022 Pain 02/15/2021 04/15/2022 Right hip pain 02/15/2021 04/15/2022 Breast pain 12/03/2019 04/27/2021 Septic arthritis of shoulder, right 10/07/2018 10/23/2021 Chronic right shoulder pain 08/03/2018 04/15/2022 Breast cancer, left breast 02/24/2018 0 10/23/2021 Overview: Added automatically from request for surgery [id number] Complete tear of right rotator cuff 06/24/2016 04/15/2022 Primary osteoarthritis of right shoulder 06/24/2016 04/15/2022 Type 2 diabetes mellitus wit hout complication, without long-term current use of insulin 04/11/2016 10/16/2022 Arthritis of knee 05/31/2013 05/31/2013 Pain in joint, lower leg 09/24/2011 Arthritis of knee 09/11/2011 09/11/2011 Osteoarthrosis, unspecified whether generalized or localized, lower leg 09/09/201107/2011 Family history of breast cancer 07/01/2011 04/15/2022 Seborrheic Keratosis 07/26/2010 012 Solar lentigo 07/26/2010 07/01/2011 Actinic skin damage 07/26/2010 07/01/19 12 Other physical therapy 04/10/201006/30 Rotator cuff tear 04/03/2010 04/11/2016 Acute appendicitis without m ention of peritonitis 03/04/2010 08/06/2012 documented as of this encounter (statuses as of 02/24/2023) [facility] Narrative* Problem Noted Date Diagnosed Date Resolved Date Pulmonary arterial hypertension 04/15/2022 04/15/2022 CKD (chronic kidney disease) stage 3, GFR 30-59 ml/min 10/29/2021 10/16/2022 Microalbuminuria 10/29/2021 12/24/2021 Closed fracture of right distal radius 09/10/2021 04/15/2022 Acute pain of right wrist 08/22/2021 Trochanteric bursitis of right hip 02/21/2021 04/15/2022 Pain 02/15/2021 04/15/2022 Right hip pain 02/15/2021 04/15/2022 Breast pain 12/03/2019 04/27/2021 Septic arthritis of shoulder, right 10/07/2018 10/23/2021 Chronic right shoulder pain 08/03/2018 04/15/2022 Breast cancer, left breast 02/24/2018 0 10/23/2021 Overview: Added automatically from request for surgery [id number] Complete tear of right rotator cuff 06/24/2016 04/15/2022 Primary osteoarthritis of right shoulder 06/24/2016 04/15/2022 Type 2 diabetes mellitus wit hout complication, without long-term current use of insulin 04/11/2016 10/16/2022 Arthritis of knee 05/31/2013 05/31/2013 Pain in joint, lower leg 09/24/2011 Arthritis of knee 09/11/2011 09/11/2011 Osteoarthrosis, unspecified whether generalized or localized, lower leg 09/09/201107/2011 Family history of breast cancer 07/01/2011 04/15/2022 Seborrheic Keratosis 07/26/2010 012 Solar lentigo 07/26/2010 07/01/2011 Actinic skin damage 07/26/2010 07/01/19 12 Other physical therapy 04/10/201006/30 Rotator cuff tear 04/03/2010 04/11/2016 Acute appendicitis without m ention of peritonitis 03/04/2010 08/06/2012 documented as of this encounter (statuses as of 03/06/2023) [facility] Narrative* Problem Noted Date Diagnosed Date Resolved Date Pulmonary arterial hypertension 04/15/2022 04/15/2022 CKD (chronic kidney disease) stage 3, GFR 30-59 ml/min 10/29/2021 10/16/2022 Microalbuminuria 10/29/2021 12/24/2021 Closed fracture of right distal radius 09/10/2021 04/15/2022 Acute pain of right wrist 08/22/2021 Trochanteric bursitis of right hip 02/21/2021 04/15/2022 Pain 02/15/2021 04/15/2022 Right hip pain 02/15/2021 04/15/2022 Breast pain 12/03/2019 04/27/2021 Septic arthritis of shoulder, right 10/07/2018 10/23/2021 Chronic right shoulder pain 08/03/2018 04/15/2022 Breast cancer, left breast 02/24/2018 0 10/23/2021 Overview: Added automatically from request for surgery [id number] Complete tear of right rotator cuff 06/24/2016 04/15/2022 Primary osteoarthritis of right shoulder 06/24/2016 04/15/2022 Type 2 diabetes mellitus wit hout complication, without long-term current use of insulin 04/11/2016 10/16/2022 Arthritis of knee 05/31/2013 05/31/2013 Pain in joint, lower leg 09/24/2011 Arthritis of knee 09/11/2011 09/11/2011 Osteoarthrosis, unspecified whether generalized or localized, lower leg 09/09/201107/2011 Family history of breast cancer 07/01/2011 04/15/2022 Seborrheic Keratosis 07/26/2010 012 Solar lentigo 07/26/2010 07/01/2011 Actinic skin damage 07/26/2010 07/01/19 12 Other physical therapy 04/10/201006/30 Rotator cuff tear 04/03/2010 04/11/2016 Acute appendicitis without m ention of peritonitis 03/04/2010 08/06/2012 documented as of this encounter (statuses as of 03/12/2023) [facility] Narrative* Problem Noted Date Diagnosed Date Resolved Date Pulmonary arterial hypertension 04/15/2022 04/15/2022 CKD (chronic kidney disease) stage 3, GFR 30-59 ml/min 10/29/2021 10/16/2022 Microalbuminuria 10/29/2021 12/24/2021 Closed fracture of right distal radius 09/10/2021 04/15/2022 Acute pain of right wrist 08/22/2021 Trochanteric bursitis of right hip 02/21/2021 04/15/2022 Pain 02/15/2021 04/15/2022 Right hip pain 02/15/2021 04/15/2022 Breast pain 12/03/2019 04/27/2021 Septic arthritis of shoulder, right 10/07/2018 10/23/2021 Chronic right shoulder pain 08/03/2018 04/15/2022 Breast cancer, left breast 02/24/2018 0 10/23/2021 Overview: Added automatically from request for surgery [id number] Complete tear of right rotator cuff 06/24/2016 04/15/2022 Primary osteoarthritis of right shoulder 06/24/2016 04/15/2022 Type 2 diabetes mellitus wit hout complication, without long-term current use of insulin 04/11/2016 10/16/2022 Arthritis of knee 05/31/2013 05/31/2013 Pain in joint, lower leg 09/24/2011 Arthritis of knee 09/11/2011 09/11/2011 Osteoarthrosis, unspecified whether generalized or localized, lower leg 09/09/201107/2011 Family history of breast cancer 07/01/2011 04/15/2022 Seborrheic Keratosis 07/26/2010 012 Solar lentigo 07/26/2010 07/01/2011 Actinic skin damage 07/26/2010 07/01/19 12 Other physical therapy 04/10/201006/30 Rotator cuff tear 04/03/2010 04/11/2016 Acute appendicitis without m ention of peritonitis 03/04/2010 08/06/2012 documented as of this encounter (statuses as of 06/19/2023) [facility] Narrative* Problem Noted Date Diagnosed Date Resolved Date Pulmonary arterial hypertension 04/15/2022 04/15/2022 CKD (chronic kidney disease) stage 3, GFR 30-59 ml/min 10/29/2021 10/16/2022 Microalbuminuria 10/29/2021 12/24/2021 Closed fracture of right distal radius 09/10/2021 04/15/2022 Acute pain of right wrist 08/22/2021 Trochanteric bursitis of right hip 02/21/2021 04/15/2022 Pain 02/15/2021 04/15/2022 Right hip pain 02/15/2021 04/15/2022 Breast pain 12/03/2019 04/27/2021 Septic arthritis of shoulder, right 10/07/2018 10/23/2021 Chronic right shoulder pain 08/03/2018 04/15/2022 Breast cancer, left breast 02/24/2018 0 10/23/2021 Overview: Added automatically from request for surgery [id number] Complete tear of right rotator cuff 06/24/2016 04/15/2022 Primary osteoarthritis of right shoulder 06/24/2016 04/15/2022 Type 2 diabetes mellitus wit hout complication, without long-term current use of insulin 04/11/2016 10/16/2022 Arthritis of knee 05/31/2013 05/31/2013 Pain in joint, lower leg 09/24/2011 Arthritis of knee 09/11/2011 09/11/2011 Osteoarthrosis, unspecified whether generalized or localized, lower leg 09/09/201107/2011 Family history of breast cancer 07/01/2011 04/15/2022 Seborrheic Keratosis 07/26/2010 012 Solar lentigo 07/26/2010 07/01/2011 Actinic skin damage 07/26/2010 07/01/19 12 Other physical therapy 04/10/201006/30 Rotator cuff tear 04/03/2010 04/11/2016 Acute appendicitis without m ention of peritonitis 03/04/2010 08/06/2012 documented as of this encounter (statuses as of 06/27/2023) [facility] of Present illness Narrative* Chip Arreola MD - 04/15/2022 1:37 PM EST Patient presents with: Follow Up HPI: Patient presents today for office visit for follow up. Seen in urgent care 04/14/22 due to swelling and pain of left foot/big toe. Dx with Cellulitis. On Keflex. Doing much better today. She is also taking aleve. Advised to avoid nsaids while on eliquis. Reviewed previous photo which showed improvement., no fever or chills. HTN: Does not check BP at home No chest pain No shortness of breath No edema No palpitations No syncope No headaches No dizziness DM: Does not check sugars at home Holidays were hard on diet Does not currently take any meds Most recent A1c 6.2 Cardio: Followed by Dr. Lara. Hx of A-fib. Currently on Xarelto. Aspirin stopped. Discussed her low potassium She does not want supplemented. Discussed rechecking. She wants to wait until she comes back from being out of town in May. Component Latest Ref Rng & Units 04/12/2022 WBC 3.70 - 11.00 k/uL 5.89 RBC 3.90 - 5.20 m/uL 4.57 Hemoglobin 11.5 - 15.5 g/dL 14.0 Hematocrit 36.0 - 46.0 % 43.3 MCV 80.0 - 100.0 fL 94.7 MCH 26.0 - 34.0 pg 30.6 MCHC 30.5 - 36.0 g/dL 32.3 RDW-CV 11.5 - 15.0 % 13.0 Platelet Count 150 - 400 k/uL 233 MPV 9.0 - 12.7 fL 10.6 Neut% % 62.2 Abs Neut (ANC) 1.45 - 7.50 k/uL 3.66 Lymph% % 24.6 Abs Lymph 1.00 - 4.00 k/uL 1.45 [place]% % 7.5 Abs [place] <0.87 k/uL 0.44 Eosin% % 4.6 Abs Eosin <0.46 k/uL 0.27 Baso% % 0.8 Abs Baso <0.11 k/uL 0.05 Immature Gran % % 0.3 IMMATURE GRANS (ABS) <0.10 k/uL <0.03 NRBC /100 WBC 0.0 Absolute nRBC <0.01 k/uL <0.01 DTYPE Auto Protein, Total 6.3 - 8.0 g/dL 6.7 Albumin 3.9 - 4.9 g/dL 4.0 Calcium 8.5 - 10.2 mg/dL 9.4 Bilirubin, Total 0.2 - 1.3 mg/dL 0.3 Alkaline Phosphatase 34 - 123 U/L 88 AST 13 - 35 U/L 20 ALT 7 - 38 U/L 16 Glucose 74 - 99 mg/dL 143 (H) BUN 7 - 21 mg/dL 17 Creatinine 0.58 - 0.96 mg/dL 0.90 Sodium 136 - 144 mmol/L 141 Potassium 3.7 - 5.1 mmol/L 3.6 (L) Chloride 97 - 105 mmol/L 103 CO2 22 - 30 mmol/L 27 Anion Gap 9 - 18 mmol/L 11 eGFR >=60 mL/min/1.73m 66 Cholesterol, Total <200 mg/dL 198 Triglyceride <150 mg/dL 168 (H) HDL Cholesterol >39 mg/dL 43 Non HDL Cholesterol <130 mg/dL 155 (H) Fasting Time hrs 10 VLDL Cholesterol <30 mg/dL 34 (H) TC:HDL Ratio <5.10 4.60 LDL Cholesterol <100 mg/dL 121 (H) LDL:HDL Ratio <2.54 2.81 (H) Hemoglobin A1C 4.3 - 5.6 % 6.2 (H) Estimated Average Glucose mg/dL 131 MEDICATIONS: Current Outpatient Medications Medication Sig metoprolol succinate ER (TOPROL XL) 50 mg 24 hr tablet Take 1 tablet by mouth once daily. rivaroxaban (XARELTO) 20 mg tablet Take 1 tablet by mouth daily with dinner. vit C,J-Lf-buqsm-lutein-zeaxan (PRESERVISION AREDS-2) 250-90-40-1 mg Take 1 capsule by mouth twice daily with meals. Cholecalciferol, Vitamin D3, 50 mcg (2,000 unit) cap Take 1 capsule by mouth once daily. furosemide (LASIX) 40 mg tablet Take 1 tablet by mouth once daily. valsartan (DIOVAN) 160 mg tablet Take 1 tablet by mouth once daily. aspirin, enteric coated (ASPIRIN, ENTERIC COATED) 81 mg EC tablet Take 1 tablet by mouth once daily. thiamine HCl (VITAMIN B-1 ORAL) Take 250 mg by mouth once daily. multivitamins(DAILY MULTIVITAMIN TAB) Take one(1) tablet daily. No current facility-administered medications for this visit. ALLERGIES: ALLERGIES Allergen Reactions Adhesive Tape-Silic* Rash ALL hydrogels, hydrocolloids, adhesives Anastrozole Other: See Comments migraines Aquacel-Ag [Silver-* Itching And redness Azithromycin Swelling facial Exemestane Other: See Comments Decreased use of right arm Lisinopril Cough PAST MEDICAL HISTORY Diagnosis Date Abnormal EKG afib, inf [place] age undetermined Atrial fibrillation (HCC) Breast cancer (HCC) 03/2018 left breast Congestive heart failure (HCC) 09/24/2018 Epistaxis balloon out osteo History of colonoscopy [address] Stoney Hernandez , normal HTN (hypertension) Hyperglycemia Knee pain, chronic Lt Migraines stopped when she retired Normal cardiac stress test 2004 Dr. Romero Osteoarthritis Seasonal allergies Type 2 diabetes mellitus without complication, without long-term current use of insulin ([facility]) 04/11/2016 PAST SURGICAL HISTORY Procedure Laterality Date ARTHRP KNE CONDYLE&PLATU MEDIAL&LAT COMPARTMENTS 2011 Knee replacement, total, right ARTHRP KNE CONDYLE&PLATU MEDIAL&LAT COMPARTMENTS Knee replacement, total, left BIOPSY BREAST OPEN INCISIONAL 2003 Bx of breast, incisional left LAPAROSCOPIC APPENDECTOMY 02/28/10 LIG/TRNSXJ FLP TUBE ABDL/VAG APPR UNI/BI 1973 Tubal ligation PAST SURGICAL HISTORY OF Left 03/27/2018 biopsy and lumpectomy left breast breast with lymph node removal x 4 PAST SURGICAL HISTORY OF Right shoulder surgery PICC LINE INSERT/CONSULT 03/09/2020 TONSILLECTOMY & ADENOIDECTOMY <AGE 11 T/A (under age 11 years) TOTAL ABDOMINAL HYSTERECT W/WO RMVL TUBE OVARY 1975 Hysterectomy, DANYELLE FAMILY HISTORY Problem Relation Age of Onset Breast Cancer Mother Hypertension Mother Hypertension Father Heart Father [place] Diabetes Father Kidney Disease Sister Heart disease Sister Cancer Sister breast COPD Sister Hypertension Sister Macular Degen Sister Arthritis Sister Cancer Sister breast Hypertension Sister Macular Degen Sister Diabetes Sister Tremor Sister Hypertension Sister Cancer Sister uterine,breast Blood Clots Sister Aneurysm Brother Hypertension Brother Diabetes Brother other (MVA) Brother Cancer Daughter uterine Hypertension Daughter Hypertension Son Hypertension Son Breast Cancer Maternal Grandmother Breast Cancer Other niece x3 Colon Cancer Other nephew Stroke Paternal Grandmother No Known Problems Maternal Grandfather in his 70's other (TB) Paternal Grandfather Social History Tobacco Use Smoking status: Never Smokeless tobacco: Never Vaping Use Vaping Use: Never used Substance Use Topics Alcohol use: No Drug use: No Reviewed current medications, allergies, past medical history, surgical history, family history andsocial history today. REVIEW OF SYSTEMS All other reviewed and negative other than HPI. HEALTH MAINTENANCE: Reviewed health maintenance issues today and recommended the following in detail. HEPATITIS C SCREENING Never done DILATED RETINAL EXAM due on 09/22/2021 ADVANCE DIRECTIVE DISCUSSION-has a dpoa, her son is her surrogate DEPRESSION ASSESSMENT Never done VITALS: BP 130/90 Pulse 102 Ht 152.4 cm (5') Wt 95.9 kg (211 lb 6.4 oz) SpO2 99% BMI 41.29 kg/m Last 4 Encounter Wt Readings: Date: Wt: 03/25/2022 95.3 kg (210 lb) 03/15/2022 96.2 kg (212 lb) 12/24/2021 96.5 kg (212 lb 12.8 oz) 10/25/2021 98.4 kg (217 lb) PHYSICAL EXAMINATION: General appearance: Well appearing, alert, in no acute distress, well-hydrated, well nourished. Skin: foot appears much better. No redness or warmth. Red flags for re- assessment reviewed with patient in detail. Head: Normocephalic, no masses, lesions, tenderness or abnormalities Lungs: Lungs clear to auscultation. No wheezing, rhonchi, rales Heart: RRR without murmur, gallop, or rubs. No ectopy Abdomen: Normal abdominal exam, Abdomen soft, non-tender. Bowel sounds normal. No masses, organomegaly Extremities: No deformities, edema, skin discoloration, clubbing or cyanosis. Good capillary refill. ASSESSMENT/PLAN: 1. Type 2 diabetes mellitus with diabetic chronic kidney disease (HCC) - ICD9: 250.40, 585.9, ICD10: E11.22 (primary diagnosis) Controlled. - Continue current medications 2. Morbid obesity with BMI of 40.0-44.9, adult (HCC) - ICD9: 278.01, V85.41, ICD10: E66.01, Z68.41 3. Type 2 diabetes mellitus without complication, without long-term current use of insulin (HCC) - ICD9: 250.00, ICD10: E11.9 Controlled. - Continue current medications 4. Chronic diastolic congestive heart failure (HCC) - ICD9: 428.32, 428.0, ICD10: I50.32 - stable. 5. Pulmonary HTN (HCC) - ICD9: 416.8, ICD10: I27.20 6. Persistent atrial fibrillation (HCC) - ICD9: 427.31, ICD10: I48.19 Continue meds. 7. Essential tremor - ICD9: 333.1, ICD10: G25.0 Stable. Comes and goes. 8. Essential hypertension, benign - ICD9: 401.1, ICD10: I10 - stable. 9. Obstructive sleep apnea syndrome - ICD9: 327.23, ICD10: G47.33 Still using cpap. Benefiting from its use. 10. Stage 3 chronic kidney disease, unspecified whether stage 3a or 3b CKD (HCC) - ICD9: 585.3, ICD10: N18.30 - follow labs. 11. Malignant neoplasm of left breast in female, estrogen receptor positive, 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 (HCC) - ICD9: 174.9, V86.0, ICD10: C50.912, Z17.0 - mammogram. 12. FPC current use of anticoagulant therapy - ICD9: V58.61, ICD10: Z79.01 - avoid nsaids. 13. Hypokalemia - ICD9: 276.8, ICD10: E87.6 - POTASSIUM BLD Chip Arreola RTO in six months and prn. [facility] Instructions* Patient Instructions* Ginger Flores PA-C - 04/14/2022 9:46 AM EST Images from the original note were not included. Please continue all of your regularly prescribed medications as directed by your primary care doctor specialist. Take your newly prescribed medication, Keflex (antibiotics), as directed. Take them with food and water. Take the full course. Continue to rest, ice, elevate your foot and use NSAIDs and/or Tylenol for pain control. Follow up with your primary care provider (PCP) in the next 5-10 days for ongoing symptoms. If your PCP cannot see you please know you may return to the urgent care at any time for re-evaluation. Go to the emergency dept for new or worsening symptoms, including but not limited to: severe pain, rapidly worsening redness or development of fevers. Thank you for choosing [facility]. It has been a pleasure caring for you. Please consider filling out the survey that will be sent to you after this visit. This helps us understand what we are doing well and what we can do better. Cellulitis: Care Instructions Your Care Instructions Cellulitis is a skin infection caused by bacteria, most often strep or staph. It often occurs aftera break in the skin from a scrape, cut, bite, or puncture, or after a rash. Cellulitis may be treated without doing tests to find out what caused it. But your doctor may do tests, if needed, to look for a specific bacteria, like methicillin-resistant Staphylococcus aureus (MRSA). The doctor has checked you carefully, but problems can develop later. If you notice any problems ornew symptoms, get medical treatment right away. Follow-up care is a morelos part of your treatment and safety. Be sure to make and go to all appointments, and call your doctor if you are having problems. It's also a good idea to know your test resultsand keep a list of the medicines you take. How can you care for yourself at home? Take your antibiotics as directed. Do not stop taking them just because you feel better. You need to take the full course of antibiotics. Prop up the infected area on pillows to reduce pain and swelling. Try to keep the area above the level of your heart as often as you can. If your doctor told you how to care for your wound, follow your doctor's instructions. If you did not get instructions, follow this general advice: Wash the wound with clean water 2 times a day. Don't use hydrogen peroxide or alcohol, which can slow healing. You may cover the wound with a thin layer of petroleum jelly, such as Vaseline, and a nonstick bandage. Apply more petroleum jelly and replace the bandage as needed. Be safe with medicines. Take pain medicines exactly as directed. If the doctor gave you a prescription medicine for pain, take it as prescribed. If you are not taking a prescription pain medicine, ask your doctor if you can take an fznf-ehx-ccypyoz medicine. To prevent cellulitis in the future Try to prevent cuts, scrapes, or other injuries to your skin. Cellulitis most often occurs where there is a break in the skin. If you get a scrape, cut, mild burn, or bite, wash the wound with clean water as soon as you can tohelp avoid infection. Don't use hydrogen peroxide or alcohol, which can slow healing. If you have swelling in your legs (edema), support stockings and good skin care may help prevent leg sores and cellulitis. Take care of your feet, especially if you have diabetes or other conditions that increase the risk of infection. Wear shoes and socks. Do not go barefoot. If you have athlete's foot or other skin problems on your feet, talk to your doctor about how to treat them. When should you call for help? Call your doctor now or seek immediate medical care if: You have signs that your infection is getting worse, such as: Increased pain, swelling, warmth, or redness. Red streaks leading from the area. Pus draining from the area. A fever. You get a rash. Watch closely for changes in your health, and be sure to contact your doctor if: You do not get better as expected. Where can you learn more? Log into your personal health record on [email or web address] and enter X309 in the Education box to learn more about Cellulitis: Care Instructions. Current as of: November 06, 2021 Content Version: 13.5 [employer] Care instructions adapted under license by your healthcare professional. If you have questions about a medical condition or this instruction, always ask your healthcare professional. [employer] disclaims any warranty or liability for your use of this information. documented in this [id number] History of Present illness Narrative* Ginger Flores PA-C - 04/14/2022 9:38 AM EST Images from the original note were not included. Patient Name: [facility] Location: [place] [id number] Date Of : Date Of Visit: 1945 04/14/2022 MRN# Provider: [id number] Ginger Flores PA-C Chief Complaint Patient presents with Foot Swelling X left foot swelling-had toe nails and callous on left foot trimmed on 04/04/22 Assessment & Plan 1. Cellulitis of left lower extremity cephALEXin (KEFLEX) 500 MG capsule DISCONTINUED: cephALEXin (KEFLEX) 500 MG capsule No follow-ups on file. Medical Decision Making Afebrile, nontoxic-appearing 77-year-old female presents to the urgent care with her son for evaluation of left foot pain. In brief, the patient had toenails and calluses trimmed on 04 April and 5to 7 days later began to develop pain and swelling near the first metatarsal that spread across thefoot prompting her to come to the urgent care today for evaluation. Presentation most consistent with cellulitis. No evidence of osteomyelitis, septic arthritis, necrotizing fasciitis, sepsis, abscess. Patient is borderline diabetic with a recent A1c of 6.2 based on labs and outside system. Patientprescribed Keflex. Advised to monitor erythema for spread. Photo documented in chart. Supportive therapies discussed. Patient made aware that symptoms may take 48-72 to show improvement. Patient encouraged to follow up with their PCP at prescheduled appointment tomorrow afternoon. However, I did encourage her to request a follow-up appointment later in the week to ensure resolution of infection. For re- evaluation of ongoing symptoms. Patient instructed to go to nearest ED if symptoms return and/or get worse, including but not limited to, development of fever, worsening pain, redness, swelling, tracking, and sensory/motor deficits. Patient made aware that they can return at any time for re-evaluation. Patient gave verbal understanding and agreement with this plan. The patient was given an opportunity to ask questions and all questions were answered. I personally reviewed the AVS with the patient. Additional Clinical Comments Discussed over the counter medications for symptomatic management and side effects of medications. Recommended taking all medications with food and to stop medications if they develop any signs of anallergic reaction. Educated patient and/or guardian about signs and symptoms that would warrant further immediate evaluation. Recommended that they should return to urgent care, make an appointment with their family physician, or go to the emergency room if symptoms persist or get acutely worse. Recommended follow upwithin the next week with their PCP or to get established with a PCP soon in order to follow up appropriately. Subjective 77 y.o. female presents with Foot Swelling (X left foot swelling-had toe nails and callouson left foot trimmed on 04/04/22) Foot Injury The incident occurred 3 to 5 days ago. Incident location: at [facility]. Injury mechanism: had callous trimmed on 04/04 around 1st MT. The pain is present in the left foot and left toes (1 MT now across whole foot). The quality of the pain is described as stabbing. The pain is at a severity of 6/10. The pain has been Constant since onset. Pertinent negatives include no inability to bear weight, loss of motion, loss of sensation, muscle weakness, numbness or tingling. She reports no foreign bodies present. The symptoms are aggravated by movement, palpation and weight bearing. She has tried rest and elevation for the symptoms. The treatment provided mild relief. Review Of Systems Review of Systems Constitutional: Negative for activity change, appetite change, chills, diaphoresis, fatigue and fever. HENT: Negative for congestion, ear discharge, ear pain, postnasal drip, rhinorrhea, sinus pressure,sinus pain and sore throat. Eyes: Negative for pain, discharge, redness and itching. Respiratory: Negative for cough, chest tightness, shortness of breath and wheezing. Cardiovascular: Negative for chest pain and palpitations. Gastrointestinal: Negative for abdominal pain, constipation, diarrhea, nausea and vomiting. Genitourinary: Negative for dysuria, frequency and urgency. Musculoskeletal: Positive for arthralgias, gait problem and joint swelling. Negative for myalgias. Skin: Positive for color change. Negative for rash. Allergic/Immunologic: Negative for environmental allergies. Neurological: Negative for dizziness, tingling, weakness, numbness and headaches. Hematological: Negative for adenopathy. Psychiatric/Behavioral: Negative for agitation and confusion. All other systems reviewed and are negative. Medical History Past Medical History: Diagnosis Date A-fib (HCC) Breast cancer (HCC) Hypertension Past Surgical History: Procedure Laterality Date APPENDECTOMY HYSTERECTOMY (CERVIX REMAINS) There is no problem list on file for this patient. Social History Family History History reviewed. No pertinent family history. Objective Physical Exam BP (!) 155/88 Pulse 84 Temp 99.2 F (37.3 C) (Tympanic) Resp 16 Ht 5' 1 Wt 95.3 kg (210 lb) SpO2 95% BMI 39.68 kg/m Vision/Hearing Exam:No results found. Physical Exam Vitals and nursing note reviewed. Constitutional: General: She is not in acute distress. Appearance: Normal appearance. She is not ill-appearing, toxic-appearing or diaphoretic. HENT: Head: Normocephalic and atraumatic. Right Ear: External ear normal. Left Ear: External ear normal. Nose: Nose normal. No congestion or rhinorrhea. Eyes: General: Right eye: No discharge. Left eye: No discharge. Conjunctiva/sclera: Conjunctivae normal. Cardiovascular: Rate and Rhythm: Normal rate. Pulses: Normal pulses. Pulmonary: Effort: Pulmonary effort is normal. No respiratory distress. Abdominal: General: Abdomen is flat. There is no distension. Musculoskeletal: General: Swelling and tenderness present. No deformity or signs of injury. Feet: Skin: General: Skin is warm and dry. Capillary Refill: Capillary refill takes less than 2 seconds. Coloration: Skin is not jaundiced or pale. Findings: Erythema present. Neurological: Mental Status: She is alert and oriented to person, place, and time. Sensory: No sensory deficit. Gait: Gait abnormal. Psychiatric: Mood and Affect: Mood normal. Behavior: Behavior normal. Thought Content: Thought content normal. Judgment: Judgment normal. Procedure Notes Procedures Results Recent Results (from the past 168 hour(s)) EXT LAB HEMOGLOBIN A1C Collection Time: 04/12/22 8:09 AM Result Value Ref Range Hemoglobin A1C EXT 6.2 (H) 4.3 - 5.6 % Estimated Average Glucose 131 mg/dL No orders to display Orders Placed This Visit No orders of the defined types were placed in this encounter. Medication List At End Of Visit Current Outpatient Medications Medication Sig Dispense Refill cholecalciferol, vitamin D3, 125 mcg (5,000 unit) capsule Take 1 (one) capsule (5,000 Units total) by mouth daily . furosemide (LASIX) 40 MG tablet Take 1 (one) tablet (40 mg total) by mouth daily . metoprolol succinate (TOPROL-XL) 50 MG 24 hr tablet Take 1 (one) tablet (50 mg total) by mouth daily . tmmzaxmv-wiq-rjnrbvp sulfate 4.5 mg iron Tab Take 1 (one) tablet by mouth . rivaroxaban (XARELTO) 20 mg Tab Take 1 (one) tablet (20 mg total) by mouth daily with dinner . valsartan (DIOVAN) 160 MG tablet 1 (one) tablet (160 mg total) . cephALEXin (KEFLEX) 500 MG capsule Take 1 (one) capsule (500 mg total) by mouth 4 (four) times a day for 10 days . 40 capsule 0 No current facility-administered medications for this visit. Patient Instructions Please continue all of your regularly prescribed medications as directed by your primary care doctor specialist. Take your newly prescribed medication, Keflex (antibiotics), as directed. Take them with food and water. Take the full course. Continue to rest, ice, elevate your foot and use NSAIDs and/or Tylenol for pain control. Follow up with your primary care provider (PCP) in the next 5-10 days for ongoing symptoms. If your PCP cannot see you please know you may return to the urgent care at any time for re-evaluation. Go to the emergency dept for new or worsening symptoms, including but not limited to: severe pain, rapidly worsening redness or development of fevers. Thank you for choosing [facility]. It has been a pleasure caring for you. Please consider filling out the survey that will be sent to you after this visit. This helps us understand what we are doing well and what we can do better. Cellulitis: Care Instructions Your Care Instructions Cellulitis is a skin infection caused by bacteria, most often strep or staph. It often occurs aftera break in the skin from a scrape, cut, bite, or puncture, or after a rash. Cellulitis may be treated without doing tests to find out what caused it. But your doctor may do tests, if needed, to look for a specific bacteria, like methicillin-resistant Staphylococcus aureus (MRSA). The doctor has checked you carefully, but problems can develop later. If you notice any problems ornew symptoms, get medical treatment right away. Follow-up care is a morelos part of your treatment and safety. Be sure to make and go to all appointments, and call your doctor if you are having problems. It's also a good idea to know your test resultsand keep a list of the medicines you take. How can you care for yourself at home? Take your antibiotics as directed. Do not stop taking them just because you feel better. You need to take the full course of antibiotics. Prop up the infected area on pillows to reduce pain and swelling. Try to keep the area above the level of your heart as often as you can. If your doctor told you how to care for your wound, follow your doctor's instructions. If you did not get instructions, follow this general advice: Wash the wound with clean water 2 times a day. Don't use hydrogen peroxide or alcohol, which can slow healing. You may cover the wound with a thin layer of petroleum jelly, such as Vaseline, and a nonstick bandage. Apply more petroleum jelly and replace the bandage as needed. Be safe with medicines. Take pain medicines exactly as directed. If the doctor gave you a prescription medicine for pain, take it as prescribed. If you are not taking a prescription pain medicine, ask your doctor if you can take an lqkd-igs-ehwuwgz medicine. To prevent cellulitis in the future Try to prevent cuts, scrapes, or other injuries to your skin. Cellulitis most often occurs where there is a break in the skin. If you get a scrape, cut, mild burn, or bite, wash the wound with clean water as soon as you can tohelp avoid infection. Don't use hydrogen peroxide or alcohol, which can slow healing. If you have swelling in your legs (edema), support stockings and good skin care may help prevent leg sores and cellulitis. Take care of your feet, especially if you have diabetes or other conditions that increase the risk of infection. Wear shoes and socks. Do not go barefoot. If you have athlete's foot or other skin problems on your feet, talk to your doctor about how to treat them. When should you call for help? Call your doctor now or seek immediate medical care if: You have signs that your infection is getting worse, such as: Increased pain, swelling, warmth, or redness. Red streaks leading from the area. Pus draining from the area. A fever. You get a rash. Watch closely for changes in your health, and be sure to contact your doctor if: You do not get better as expected. Where can you learn more? Log into your personal health record on https://[email or web address] and enter X309 in the Education box to learn more about Cellulitis: Care Instructions. Current as of: November 06, 2021 Content Version: 13.5 [employer] Care instructions adapted under license by your healthcare professional. If you have questions about a medical condition or this instruction, always ask your healthcare professional. [employer] disclaims any warranty or liability for your use of this information. documented in this [id number] Instructions* Patient Instructions* Anuj Navarro MD - 03/25/2022 10:38 AM EST We are increasing the Toprol (Metoprolol Succinate) to 50 mg daily. We are starting you on Xarelto 20 mg once per day [facility] History of Present illness Narrative* Anuj Navarro MD - 03/25/2022 10:20 AM EST Images from the original note were not included. [facility]IOLOGY Cardiology ([place] ([facility] [address] [facility] [id number] OUTPATIENT VISIT DATE 03/25/2022 PRIMARY CARE PHYSICIAN: Chip Arreola MD [address] [place] [address] HISTORY OF PRESENT ILLNESS: Ms. Carmichael is a 76 year old woman with a history of permanent atrial fibrillation, hypertension, diastolic congestive heart failure here for routine follow-up. Since her last visit, she has been feeling well. She denies feelings of palpitations but has noticed that her heart rate is increased. She has not had symptoms concerning for CHF including PND, orthopnea, lower extremity edema. She denies symptoms of chest pain or pressure. PAST MEDICAL HISTORY Diagnosis Date Abnormal EKG afib, inf [place] age undetermined Atrial fibrillation (HCC) Breast cancer (HCC) 03/2018 left breast Congestive heart failure (HCC) 09/24/2018 Epistaxis balloon out osteo History of colonoscopy [address] Stoney Hernandez , normal HTN (hypertension) Hyperglycemia Knee pain, chronic Lt Migraines stopped when she retired Normal cardiac stress test 2004 Dr. Romero Osteoarthritis Seasonal allergies Type 2 diabetes mellitus without complication, without long-term current use of insulin ([facility]) 04/11/2016 PAST SURGICAL HISTORY Procedure Laterality Date ARTHRP KNE CONDYLE&PLATU MEDIAL&LAT COMPARTMENTS 2011 Knee replacement, total, right ARTHRP KNE CONDYLE&PLATU MEDIAL&LAT COMPARTMENTS Knee replacement, total, left BIOPSY BREAST OPEN INCISIONAL 2004 Bx of breast, incisional left LAPAROSCOPIC APPENDECTOMY 02/28/10 LIG/TRNSXJ FLP TUBE ABDL/VAG APPR UNI/BI 1973 Tubal ligation PAST SURGICAL HISTORY OF Left 03/27/2018 biopsy and lumpectomy left breast breast with lymph node removal x 4 PAST SURGICAL HISTORY OF Right shoulder surgery PICC LINE INSERT/CONSULT 03/09/2020 TONSILLECTOMY & ADENOIDECTOMY <AGE 11 T/A (under age 11 years) TOTAL ABDOMINAL HYSTERECT W/WO RMVL TUBE OVARY 1975 Hysterectomy, DANYELLE SOCIAL HISTORY Social History Tobacco Use Smoking status: Never Smokeless tobacco: Never Vaping Use Vaping Use: Never used Substance Use Topics Alcohol use: No Drug use: No FAMILY HISTORY Problem Relation Age of Onset Breast Cancer Mother Hypertension Mother Hypertension Father Heart Father OK Diabetes Father Kidney Disease Sister Heart disease Sister Cancer Sister breast COPD Sister Hypertension Sister Macular Degen Sister Arthritis Sister Cancer Sister breast Hypertension Sister Macular Degen Sister Diabetes Sister Tremor Sister Hypertension Sister Cancer Sister uterine,breast Blood Clots Sister Aneurysm Brother Hypertension Brother Diabetes Brother other (MVA) Brother Cancer Daughter uterine Hypertension Daughter Hypertension Son Hypertension Son Breast Cancer Maternal Grandmother Breast Cancer Other niece x3 Colon Cancer Other nephew Stroke Paternal Grandmother No Known Problems Maternal Grandfather in his 70's other (TB) Paternal Grandfather ALLERGIES: ALLERGIES Allergen Reactions Adhesive Tape-Silic* Rash ALL hydrogels, hydrocolloids, adhesives Anastrozole Other: See Comments migraines Aquacel-Ag [Silver-* Itching And redness Azithromycin Swelling facial Exemestane Other: See Comments Decreased use of right arm Lisinopril Cough MEDICATIONS: amoxicillin (AMOXIL) 875 mg tablet Take 1 tablet by mouth twice daily for 10 days. vit C,B-Qj-apmqz-lutein-zeaxan (PRESERVISION AREDS-2) 250-90-40-1 mg Take 1 capsule by mouth twice daily with meals. Cholecalciferol, Vitamin D3, 50 mcg (2,000 unit) cap Take 1 capsule by mouth once daily. furosemide (LASIX) 40 mg tablet Take 1 tablet by mouth once daily. valsartan (DIOVAN) 160 mg tablet Take 1 tablet by mouth once daily. metoprolol succinate ER (TOPROL XL) 25 mg 24 hr tablet Take 1 tablet by mouth once daily. aspirin, enteric coated (ASPIRIN, ENTERIC COATED) 81 mg EC tablet Take 1 tablet by mouth once daily. thiamine HCl (VITAMIN B-1 ORAL) Take 250 mg by mouth once daily. multivitamins(DAILY MULTIVITAMIN TAB) Take one(1) tablet daily. REVIEW OF SYSTEMS: Review of Systems Constitutional: Negative for chills, fever, malaise/fatigue and weight loss. HENT: Negative for hearing loss and sore throat. Eyes: Negative for blurred vision and double vision. Respiratory: Negative. Cardiovascular: Negative. Gastrointestinal: Negative. Genitourinary: Negative for dysuria, frequency, hematuria and urgency. Musculoskeletal: Negative. Skin: Negative. Neurological: Positive for tremors. Negative for dizziness, seizures, loss of consciousness, weakness and headaches. Endo/Heme/Allergies: Negative for environmental allergies. Does not bruise/bleed easily. Psychiatric/Behavioral: Negative for depression. PHYSICAL EXAMINATION: BP 140/80 (BP Site: Right Arm, BP Position: Sitting, BP Cuff Size: Large Adult) Pulse 120 Wt 95.3 kg (210 lb) SpO2 94% BMI 41.01 kg/m General: Pleasant somewhat obese woman sitting appears comfortable no apparent distress. She is alert and oriented x3 HEENT: Carotid upstrokes are brisk bilaterally without bruits. No JVD appreciated Pulmonary: Lungs are clear no rales, wheezes, or rhonchi. Cardiovascular: Normal S1-S2 with an irregular regular pulse and with tachycardia. No murmurs, rubs, or gallops extremities: Warm, well-perfused, no lower extremity edema. CARDIOVASCULAR MEDICINE TESTING: ECG in the office 05/21/2021: Atrial fibrillation with controlled ventricular response. Heart rate 84 bpm. Normal axis and intervals. No significant ST or T wave changes ECG in the office 01/29/2021: Normal sinus rhythm with left axis deviation poor R wave progression anteriorly with incomplete Q waves in leads III and aVF. Zio Monitor 12/23/19-01/04/20 Min HR 39 bpm, max HR 96 bpm, average HR 52 bpm Predominant rhythm normal sinus Rare Isolated SVE's (<1%) Event monitor 12/23/2019: Duration 11 days Minimum heart rate 39 bpm: Heart rate of 96 bpm with an average of 52 bpm Predominant underlying rhythm normal sinus with isolated SVEs which were rare at less than 1% Echocardiogram 09/04/2018: Left ventricular systolic function is normal. Estimated ejection fraction is 55%. Mild concentric left ventricle hypertrophy. Left atrium is. moderately enlarged Right atrium is mildly enlarged Mild focal mitral valve calcification of the anterior leaflets with 1+ eccentric mitral valve regurgitation. Moderate 2+ eccentric tricuspid valve insufficiency RV systolic pressure estimated to be 46 mmHg. Lexiscan Myoview stress test 03/10/2018: CONCLUSIONS: 1. SPECT Perfusion Study: Normal. 2. There is no scintigraphic evidence for inducible ischemia. 3. No evidence of scarred myocardium. 4. Functional capacity N/A (pharmacological). 5. Left ventricle is normal in size. The left ventricle systolic function is normal. 6. Right ventricle is normal in size. The right ventricle systolic function is normal. 7. This is a low risk scan. Gated Stress FBP LVEF % 60 Cardioversion 11/30/18 IMPRESSION: Ms. Carmichael is a 76 year old woman with a history of paroxysmal atrial fibrillation (likely now persistent), chronic diastolic heart failure, pulmonary hypertension, hypertension, and obstructive sleep apnea who presents for routine follow-up. PLAN AND RECOMMENDATIONS: 1. Persistent atrial fibrillation (HCC) - ICD9: 427.31, ICD10: I48.19 (primary diagnosis) Heart rates increase likely with the withdrawal of amiodarone. I will increase her Toprol to 50 mg nightly. I sent a prescription for Xarelto to her pharmacy. Hopefully she will have medication coverage. I discussed the need for anticoagulation therapy to avoid possible CVA. - METOPROLOL SUCCINATE ER 50 MG TABLET,EXTENDED RELEASE 24 HR 2. Essential hypertension, benign - ICD9: 401.1, ICD10: I10 Adequate control on current regimen. 3. Chronic diastolic congestive heart failure (HCC) - ICD9: 428.32, 428.0, ICD10: I50.32 Well-controlled on low-sodium diet 4. Pulmonary HTN (HCC) - ICD9: 416.8, ICD10: I27.20 Anuj Navarro MD documented in this encounter[facility]10-17-[facility] History of Present illness Narrative* Donald Massey MD - 01/21/2022 9:17 AM EDT Donald Massey MD Department of Orthopaedics Orthopaedics [address] [place] [id number] Dept: [phone] Dept January 21, 2022 CHIEF COMPLAINT: Established Patient and Results - Mri of the Right Wrist HPI Patient here today for MRI results right wrist. She does occasionally wear the wrist brace if she is having a lot of pain. ASSESSMENT: M65.4 De Quervain's tenosynovitis (primary encounter diagnosis) M25.531 Right wrist pain PLAN: We reviewed her MRI findings which suggest a nearly completely healed fracture though I do believe she has just some slight posttraumatic arthritis but minimal. However, most obvious is first dorsal compartment tenosynovitis. We talked about a couple different treatment options and she does not wish to have any kind of a cortisone injection at this time. She is going to continue with her topical and bracing as needed. Ms. Kesha Carmichael was advised as to contrast therapies and/or to take analgesics/anti-inflammatories as needed and all contraindications were reviewed. OBJECTIVE: Ms. Kesha Carmichael is a pleasant 76 year old in no apparent distress. Gen:There were no vitals taken for this visit. nl development, obese, no deformities ENT: Normocephalic, normal hearing, moist mucosa CV: Pulses:Radial= 2+ and symmetric, capillary refill < 2 secs, no peripheral edema/varicosities Skin: no rash, bruising or lesions. Good turgor. Psych: cooperative and appropriate, alert and oriented x 3, good mood and affect. Musculoskeletal: Mild persistent swelling over the first dorsal compartment with tenderness palpation at the location. Exquisite Nori's. Imaging: IMPRESSION: FIRST EXTENSOR COMPARTMENT TENDINOSIS AND TENOSYNOVITIS. INTERVAL NEAR COMPLETE HEALING OF THE RADIAL STYLOID PROCESS FRACTURE. DEGENERATIVE CHANGES. International Exchange Coordinator: [facility] Transcribe Date/Time: Jan 17 2022 3:48P Dictated by : HUGH MONSALVE MD This examination was interpreted and the report reviewed and electronically signed by: HUGH MONSALVE MD on Jan 17 2022 3:54PM EST Results-Findings * * *Final Report* * * DATE OF EXAM: Jan 17 2022 3:38PM [facility] [id number] - MRI WRIST WO IVCON RT / PROCEDURE REASON: Closed fracture of right wrist with routine healing, subsequent encounter * * * * Physician Interpretation * * * * MRI Right Wrist INDICATION: Closed fracture of right wrist with routine healing, subsequent encounter .. COMPARISON: Radiographs dated 12/06/2021 6. TECHNIQUE: Multiplanar PD, T1 and T2 weighted images. RESULT: Triangular fibrocartilage: Within normal limits. Scapholunate ligament: Within normal limits. Lack of joint fluid limits evaluation. Lunotriquetral ligament: Within normal limits. Lack of joint fluid limits evaluation. Flexor tendons and carpal tunnel: Within normal limits. Carpal tunnel is within normal limits. Extensor tendons: There is thickening and heterogeneous signal of the first extensor compartment tendons with fluid distending the tendon sheath and adjacent soft tissue edema. Within normal limits. Bones and bone marrow: There has been near complete healing of the radial styloid process fracture. There is a remote nonhealed fracture of the ulnar styloid process. No marrow replacing lesions. Joints:No joint effusion or synovitis. There are degenerative changes at the distal radioulnar, radiocarpal, STT and first CMC joints. Other: No other significant abnormality identified. Localizer image: No additional findings. Supporting Subjective Information Below: Past Surgical History: PAST SURGICAL HISTORY Procedure Laterality Date ARTHRP KNE CONDYLE&PLATU MEDIAL&LAT COMPARTMENTS 2011 Knee replacement, total, right ARTHRP KNE CONDYLE&PLATU MEDIAL&LAT COMPARTMENTS Knee replacement, total, left BIOPSY BREAST OPEN INCISIONAL 2004 Bx of breast, incisional left LAPAROSCOPIC APPENDECTOMY 02/28/10 LIG/TRNSXJ FLP TUBE ABDL/VAG APPR UNI/BI 1972 Tubal ligation PAST SURGICAL HISTORY OF Left 03/27/2018 biopsy and lumpectomy left breast breast with lymph node removal x 4 PAST SURGICAL HISTORY OF Right shoulder surgery PICC LINE INSERT/CONSULT 03/09/2020 TONSILLECTOMY & ADENOIDECTOMY <AGE 11 T/A (under age 11 years) TOTAL ABDOMINAL HYSTERECT W/WO RMVL TUBE OVARY 1974 Hysterectomy, DANYELLE Medications: Current Outpatient Medications Medication Sig Cholecalciferol, Vitamin D3, (VITAMIN D-3) 50 mcg (2,000 unit) cap Take 1 capsule by mouth once daily. furosemide (LASIX) 40 mg tablet Take 1 tablet by mouth once daily. valsartan (DIOVAN) 160 mg tablet Take 1 tablet by mouth once daily. metoprolol succinate ER (TOPROL XL) 25 mg 24 hr tablet Take 1 tablet by mouth once daily. aspirin, enteric coated (ASPIRIN, ENTERIC COATED) 81 mg EC tablet Take 1 tablet by mouth once daily. thiamine HCl (VITAMIN B-1 ORAL) Take 250 mg by mouth once daily. multivitamins(DAILY MULTIVITAMIN TAB) Take one(1) tablet daily. No current facility-administered medications for this visit. Allergies: Adhesive Tape-Silicones, Anastrozole, Aquacel-Ag [Silver-Hydrocolloid Dressing], Azithromycin, Exemestane, and Lisinopril ROS: General (negative for fatigue, malaise, weight loss/gain) HEENT (negative for headache, earache, recent vision changes, sinus pain, sore throat) Respiratory (no recent shortness of breath, hemoptysis) CV (negative for chest tightness, palpitations) Musculoskeletal (see HPI) Psych (no depression, anxiety) Donald Massey MD documented [facility] encounterWay[facility]09-19-[facility] History of Present illness Narrative* Chip Arreola MD - 12/24/2021 2:49 PM EDT Patient presents with: Follow Up: Discuss labs from October HPI: Patient presents today for office visit for follow up to go over lab work. Discussed wording on recent notes. She was concerned because I had said she won't take meds. She failed both oncology meds. Her 5 years is up this fall. We talked about continuing mammograms. Discussed her chronic renal disease. Some of it may be exacerbated by her lasix. Reviewed findings. Will monitor her labs. No chest or shortness of breath. MEDICATIONS: Current Outpatient Medications Medication Sig furosemide (LASIX) 40 mg tablet Take 1 tablet by mouth once daily. valsartan (DIOVAN) 160 mg tablet Take 1 tablet by mouth once daily. metoprolol succinate ER (TOPROL XL) 25 mg 24 hr tablet Take 1 tablet by mouth once daily. aspirin, enteric coated (ASPIRIN, ENTERIC COATED) 81 mg EC tablet Take 1 tablet by mouth once daily. thiamine HCl (VITAMIN B-1 ORAL) Take 250 mg by mouth once daily. multivitamins(DAILY MULTIVITAMIN TAB) Take one(1) tablet daily. No current facility-administered medications for this visit. ALLERGIES: ALLERGIES Allergen Reactions Adhesive Tape-Silic* Rash ALL hydrogels, hydrocolloids, adhesives Anastrozole Other: See Comments migraines Aquacel-Ag [Silver-* Itching And redness Azithromycin Swelling facial Exemestane Other: See Comments Decreased use of right arm Lisinopril Cough PAST MEDICAL HISTORY Diagnosis Date Abnormal EKG afib, inf [place] age undetermined Atrial fibrillation (HCC) Breast cancer (HCC) 03/2018 left breast Congestive heart failure (HCC) 09/24/2018 Epistaxis balloon out osteo History of colonoscopy [address] Stoney Hernandez , normal HTN (hypertension) Hyperglycemia Knee pain, chronic Lt Migraines stopped when she retired Normal cardiac stress test 2004 Dr. Romero Osteoarthritis Seasonal allergies Type 2 diabetes mellitus without complication, without long-term current use of insulin (HCC) 04/11/2016 PAST SURGICAL HISTORY Procedure Laterality Date ARTHRP KNE CONDYLE&PLATU MEDIAL&LAT COMPARTMENTS 2011 Knee replacement, total, right ARTHRP KNE CONDYLE&PLATU MEDIAL&LAT COMPARTMENTS Knee replacement, total, left BIOPSY BREAST OPEN INCISIONAL 2004 Bx of breast, incisional left LAPAROSCOPIC APPENDECTOMY 02/28/10 LIG/TRNSXJ FLP TUBE ABDL/VAG APPR UNI/BI 1973 Tubal ligation PAST SURGICAL HISTORY OF Left 03/27/2018 biopsy and lumpectomy left breast breast with lymph node removal x 4 PAST SURGICAL HISTORY OF Right shoulder surgery PICC LINE INSERT/CONSULT 03/09/2020 TONSILLECTOMY & ADENOIDECTOMY <AGE 11 T/A (under age 11 years) TOTAL ABDOMINAL HYSTERECT W/WO RMVL TUBE OVARY 1975 Hysterectomy, DANYELLE FAMILY HISTORY Problem Relation Age of Onset Breast Cancer Mother Hypertension Mother Hypertension Father Heart Father [place] Diabetes Father Kidney Disease Sister Heart disease Sister Cancer Sister breast COPD Sister Hypertension Sister Macular Degen Sister Arthritis Sister Cancer Sister breast Hypertension Sister Macular Degen Sister Diabetes Sister Tremor Sister Hypertension Sister Cancer Sister uterine,breast Blood Clots Sister Aneurysm Brother Hypertension Brother Diabetes Brother other (MVA) Brother Cancer Daughter uterine Hypertension Daughter Hypertension Son Hypertension Son Breast Cancer Maternal Grandmother Breast Cancer Other niece x3 Colon Cancer Other nephew Stroke Paternal Grandmother No Known Problems Maternal Grandfather in his 70's other (TB) Paternal Grandfather Social History Tobacco Use Smoking status: Never Smokeless tobacco: Never Vaping Use Vaping Use: Never used Substance Use Topics Alcohol use: No Drug use: No Reviewed current medications, allergies, past medical history, surgical history, family history andsocial history today. REVIEW OF SYSTEMS All other reviewed and negative other than HPI. VITALS: BP 128/80 Pulse 99 Ht 152.4 cm (5') Wt 96.5 kg (212 lb 12.8 oz) SpO2 97% BMI 41.56 kg/m Last 4 Encounter Wt Readings: Date: Wt: 12/24/2021 96.5 kg (212 lb 12.8 oz) 10/25/2021 98.4 kg (217 lb) 08/27/2021 97.1 kg (214 lb) 08/22/2021 100.2 kg (220 lb 12.8 oz) PHYSICAL EXAMINATION: General appearance: Well appearing, alert, in no acute distress, well-hydrated, well nourished. Skin: Skin color, texture, turgor normal, no suspicious rashes or lesions Head: Normocephalic, no masses, lesions, tenderness or abnormalities Lungs: Lungs clear to auscultation. No wheezing, rhonchi, rales Heart: RRR without murmur, gallop, or rubs. No ectopy Abdomen: Normal abdominal exam, Abdomen soft, non-tender. Bowel sounds normal. No masses, organomegaly Extremities: No deformities, edema, skin discoloration, clubbing or cyanosis. Good capillary refill. Musculoskeletal: No joint swelling, deformity, or tenderness ASSESSMENT/PLAN: 1. Essential hypertension, benign - ICD9: 401.1, ICD10: I10 (primary diagnosis) - continue meds. Call if any issues. - CBC + DIFF - COMP METABOLIC PANEL - LIPID PANEL BASIC 2. Type 2 diabetes mellitus without complication, without long-term current use of insulin (HCC) - ICD9: 250.00, ICD10: E11.9 - HGB A1C 3. Malignant neoplasm of left breast in female, estrogen receptor positive, 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 (HCC) - ICD9: 174.9, V86.0, ICD10: C50.912, Z17.0 - will follow labs. 4. Stage 3 chronic kidney disease, unspecified whether stage 3a or 3b CKD (HCC) - ICD9: 585.3, ICD10: N18.30 Will follow. Chip Arreola MD After first of the year. documented in this encounterWay[facility]09-01-2022 History of Present illness Narrative* Donald Massey MD - 12/06/2021 2:42 PM EDT Patient presents with: Right Wrist - Established Patient, Fracture: 15 wks 6 days post fx right radial styloid Donald Massey MD Department of Orthopaedics Orthopaedics [address] [facility] [address] Dept: [phone] Dept December 06, 2021 CHIEF COMPLAINT: Established Patient and Fracture of the Right Wrist (15 wks 6 days post fx right radial styloid) HPI Patient is here today 16 wks post fx right radial styloid. Patient states she's been having some achey soreness in the wrist and can hear it popping. She has been wearing the brace when needed for extra support. Xray today 12/06/21 at [facility]. AMB ROOMING INTAKE FLOWSHEET DATA Risk Screening Do you have concerns about personal safety or safety in the home?: No Pain Pain Level: 1 Pain Location: Wrist-Right Description: Aching Duration Amount of Time: (ongoing) Frequency: Intermittent Intervention/Comfort measure: Other: See comment (brace) ASSESSMENT: S52.080I Other closed intra-articular fracture of distal end of right radius, initial encounter PLAN: Concern has concerns about the wrist as she feels like x-rays showing healed fracture and are missing something. She is having popping and clicking of the joint. We will get an MRI to appease her concerns. Ms. Kesha Carmichael was advised as to contrast therapies and/or to take analgesics/anti-inflammatories as needed and all contraindications were reviewed. OBJECTIVE: Ms. Kesha Carmichael is a pleasant 76 year old in no apparent distress. Gen:There were no vitals taken for this visit. nl development, non obese, no deformities ENT: Normocephalic, normal hearing, moist mucosa CV: Pulses:Radial= 2+ and symmetric, capillary refill < 2 secs, no peripheral edema/varicosities Skin: no rash, bruising or lesions. Good turgor. Psych: cooperative and appropriate, alert and oriented x 3, good mood and affect. Musculoskeletal: Just a bit tender over the radial side of the wrist still. Mildly positive Nori's. Good range of motion at the wrist. Mild tenderness over the ulnar side as well. Imaging: IMPRESSION: Healing fracture of the radial styloid/distal radius. International Exchange Coordinator: [facility] Transcribe Date/Time: Dec 07 2021 9:16A Dictated by : OSCAR ORTEZ MD This examination was interpreted and the report reviewed and electronically signed by: OSCAR ORTEZ MD on Dec 07 2021 9:21AM EST Results-Findings * * *Final Report* * * DATE OF EXAM: Dec 06 2021 2:39PM [id number] [id number] - XR WRIST 3V PA/LAT/OBL RT / PROCEDURE REASON: Other closed intra-articular fracture of distal end of right radius, initial enc * * * * Physician Interpretation * * * * EXAM TITLE: XR WRIST 3V PA/LAT/OBL RT EXAM DATE/TIME: 12/06/2021 2:39 PM COMPARISON: X-ray wrist on 09/10/2021 CLINICAL INDICATION/HISTORY: Intra-articular fracture. TECHNIQUE: PA, lateral, and oblique views of right wrist are presented. FINDINGS: Healing fracture of the radial styloid/distal radius, with interval more bridging callus formation. Fracture line extending to the radiocarpal joint space is again visualized. Nonunion ulnar styloid process. The joint spaces are maintained. Mild degenerative changes involving the first carpometacarpal joint. The bones are osteopenic. Negative ulnar variance. There is no significant soft tissue swelling. Supporting Subjective Information Below: Past Surgical History: PAST SURGICAL HISTORY Procedure Laterality Date ARTHRP KNE CONDYLE&PLATU MEDIAL&LAT COMPARTMENTS 2012 Knee replacement, total, right ARTHRP KNE CONDYLE&PLATU MEDIAL&LAT COMPARTMENTS Knee replacement, total, left BIOPSY BREAST OPEN INCISIONAL 2004 Bx of breast, incisional left LAPAROSCOPIC APPENDECTOMY 02/28/10 LIG/TRNSXJ FLP TUBE ABDL/VAG APPR UNI/BI 1973 Tubal ligation PAST SURGICAL HISTORY OF Left 03/27/2018 biopsy and lumpectomy left breast breast with lymph node removal x 4 PAST SURGICAL HISTORY OF Right shoulder surgery PICC LINE INSERT/CONSULT 03/09/2020 TONSILLECTOMY & ADENOIDECTOMY <AGE 11 T/A (under age 11 years) TOTAL ABDOMINAL HYSTERECT W/WO RMVL TUBE OVARY 1974 Hysterectomy, DANYELLE Medications: Current Outpatient Medications Medication Sig furosemide (LASIX) 40 mg tablet Take 1 tablet by mouth once daily. valsartan (DIOVAN) 160 mg tablet Take 1 tablet by mouth once daily. metoprolol succinate ER (TOPROL XL) 25 mg 24 hr tablet Take 1 tablet by mouth once daily. aspirin, enteric coated (ASPIRIN, ENTERIC COATED) 81 mg EC tablet Take 1 tablet by mouth once daily. thiamine HCl (VITAMIN B-1 ORAL) Take 250 mg by mouth once daily. multivitamins(DAILY MULTIVITAMIN TAB) Take one(1) tablet daily. No current facility-administered medications for this visit. Allergies: Adhesive Tape-Silicones, Anastrozole, Aquacel-Ag [Silver-Hydrocolloid Dressing], Azithromycin, Exemestane, and Lisinopril ROS: General (negative for fatigue, malaise, weight loss/gain) HEENT (negative for headache, earache, recent vision changes, sinus pain, sore throat) Respiratory (no recent shortness of breath, hemoptysis) CV (negative for chest tightness, palpitations) Musculoskeletal (see HPI) Psych (no depression, anxiety) Donald Massey MD documented in this encounterWay[facility] Hospital09-01-2022 History of Present illness Narrative* RT Gwen(R) - 12/06/2021 2:30 PM EDT Radiology Service Progress Note PATIENT NAME: Kesha Carmichael DATE OF SERVICE: December 06, 2021 TIME: 2:30 PM PATIENT IDENTITY VERIFICATION COMPLETED USING TWO (2) IDENTIFIERS: Name and Date of confirmedby patient verbally. FALL SCREENING: Has the patient had 2 falls in the last year or 1 fall with injury or currently using an Ambulatory Assistive Device (Walker, Cane, Wheelchair, Crutches, etc.)? No PATIENT GENDER DATA: Female. status: : No status: NO. PATIENT RELEVANT IMPLANT DATA REVIEWED: Not Applicable RADIOLOGY DEPARTMENT: General X-ray: Exam(s) Completed: Upper Extremity X- Ray(s): Wrist, right PERIPHERAL IV DATA: Not applicable SIGNED BY: RT Gwen(R) December 06, 2021 2:30 PM documented in this encounterWayne Hospital07-27-2022 Miscellaneous Notes* Telephone Encounter - Viola Goff - 10/31/2021 2:04 PM EDT Pt scheduled for follow up with Dr. Navarro @ [place] office. Viola Goff documented in this encounterWayne Hospital07-25-2022 History of Past illness Narrative* Problem Noted Date Resolved Date Microalbuminuria 10/29/2021 12/24/2021 Breast pain 12/03/2019 04/27/2021 Septic arthritis of shoulder, right 10/07/2018 10/23/2021 Breast cancer, left breast 02/24/201810/23 Overview: Added automatically from request for surgery [id number] Rotator cuff tear arthropathy, right 06/24/2016 10/23/2021 Arthritis of knee 05/31/2013 05/31/2013 Pain in joint, lower leg 09/24/2011 016 Arthritis of knee 09/11/2011 09/11/2011 Osteoarthrosis, unspecified whether generalized or localized, lower leg 09/09/2011 09/09/2011 Seborrheic Keratosis 07/26/2010 07/01/2011 Solar lentigo 07/26/2010 07/01/2011 Actinic skin damage 07/26/2010 07/01/2011 Other physical therapy 04/10/2010 2 Rotator cuff tear 04/03/2010 04/11/2016 Acute appendicitis without mention of peritoniti s 03/04/2010 08/06/2012 documented as of this encounter (statuses as of 12/24/2021) [facility] History of Past illness Narrative* Problem Noted Date Resolved Date Microalbuminuria 10/29/2021 12/24/2021 Breast pain 12/03/2019 04/27/2021 Septic arthritis of shoulder, right 10/07/2018 10/23/2021 Breast cancer, left breast 02/24/201810/23 Overview: Added automatically from request for surgery [id number] Rotator cuff tear arthropathy, right 06/24/2016 10/23/2021 Arthritis of knee 05/31/2013 05/31/2013 Pain in joint, lower leg 09/24/2011 016 Arthritis of knee 09/11/2011 09/11/2011 Osteoarthrosis, unspecified whether generalized or localized, lower leg 09/09/2011 09/09/2011 Seborrheic Keratosis 07/26/2010 07/01/2011 Solar lentigo 07/26/2010 07/01/2011 Actinic skin damage 07/26/2010 07/01/2011 Other physical therapy 04/10/2010 2 Rotator cuff tear 04/03/2010 04/11/2016 Acute appendicitis without mention of peritoniti s 03/04/2010 08/06/2012 documented as of this encounter (statuses as of 12/31/2021) [facility] History of Past illness Narrative* Problem Noted Date Resolved Date Microalbuminuria 10/29/2021 12/24/2021 Breast pain 12/03/2019 04/27/2021 Septic arthritis of shoulder, right 10/07/2018 10/23/2021 Breast cancer, left breast 02/24/201810/23 Overview: Added automatically from request for surgery [id number] Rotator cuff tear arthropathy, right 06/24/2016 10/23/2021 Arthritis of knee 05/31/2013 05/31/2013 Pain in joint, lower leg 09/24/2011 016 Arthritis of knee 09/11/2011 09/11/2011 Osteoarthrosis, unspecified whether generalized or localized, lower leg 09/09/2011 09/09/2011 Seborrheic Keratosis 07/26/2010 07/01/2011 Solar lentigo 07/26/2010 07/01/2011 Actinic skin damage 07/26/2010 07/01/2011 Other physical therapy 04/10/2010 2 Rotator cuff tear 04/03/2010 04/11/2016 Acute appendicitis without mention of peritoniti s 03/04/2010 08/06/2012 documented as of this encounter (statuses as of 01/21/2022) [facility] History of Past illness Narrative* Problem Noted Date Resolved Date Microalbuminuria 10/29/2021 12/24/2021 Breast pain 12/03/2019 04/27/2021 Septic arthritis of shoulder, right 10/07/2018 10/23/2021 Breast cancer, left breast 02/24/201810/23 Overview: Added automatically from request for surgery [id number] Rotator cuff tear arthropathy, right 06/24/2016 10/23/2021 Arthritis of knee 05/31/2013 05/31/2013 Pain in joint, lower leg 09/24/2011 016 Arthritis of knee 09/11/2011 09/11/2011 Osteoarthrosis, unspecified whether generalized or localized, lower leg 09/09/2011 09/09/2011 Seborrheic Keratosis 07/26/2010 07/01/2011 Solar lentigo 07/26/2010 07/01/2011 Actinic skin damage 07/26/2010 07/01/2011 Other physical therapy 04/10/2010 2 Rotator cuff tear 04/03/2010 04/11/2016 Acute appendicitis without mention of peritoniti s 03/04/2010 08/06/2012 documented as of this encounter (statuses as of 03/15/2022) [facility] History of Past illness Narrative* Problem Noted Date Resolved Date Microalbuminuria 10/29/2021 12/24/2021 Breast pain 12/03/2019 04/27/2021 Septic arthritis of shoulder, right 10/07/2018 10/23/2021 Breast cancer, left breast 02/24/201810/23 Overview: Added automatically from request for surgery [id number] Rotator cuff tear arthropathy, right 06/24/2016 10/23/2021 Arthritis of knee 05/31/2013 05/31/2013 Pain in joint, lower leg 09/24/2011 016 Arthritis of knee 09/11/2011 09/11/2011 Osteoarthrosis, unspecified whether generalized or localized, lower leg 09/09/2011 09/09/2011 Seborrheic Keratosis 07/26/2010 07/01/2011 Solar lentigo 07/26/2010 07/01/2011 Actinic skin damage 07/26/2010 07/01/2011 Other physical therapy 04/10/2010 2 Rotator cuff tear 04/03/2010 04/11/2016 Acute appendicitis without mention of peritoniti s 03/04/2010 08/06/2012 documented as of this encounter (statuses as of 03/25/2022) [facility] Miscellaneous Notes* Telephone Encounter - Sonali Membreno Cma - 10/29/2021 1:47 PM EDT Patient notified and verbalized understanding Sonali Membreno Cma * Telephone Encounter - Chip Arreola MD - 10/29/2021 12:44 PM EDT Sugars are stable. Watch diet. Kidney function is slightly reduced but stable and showing small amount of protein. Usually from hxof sugars. Continue current meds. Will follow. [facility] History of Present illness Narrative* RT Alta(R) - 10/26/2021 8:30 AM EDT Radiology Service Progress Note PATIENT NAME: Kesha Carmichael DATE OF SERVICE: October 26, 2021 TIME: 8:34 AM PATIENT IDENTITY VERIFICATION COMPLETED USING TWO (2) IDENTIFIERS: Name and Date of confirmedby patient verbally. FALL SCREENING: Has the patient had 2 falls in the last year or 1 fall with injury or currently using an Ambulatory Assistive Device (Walker, Cane, Wheelchair, Crutches, etc.)? No PATIENT GENDER DATA: Female. status: : No status: NO. PATIENT RELEVANT IMPLANT DATA REVIEWED: Not Applicable RADIOLOGY DEPARTMENT: Mammography PERIPHERAL IV DATA: Not applicable SIGNED BY: RT Alta(R) October 26, 2021 8:34 AM documented in [facility] encounterWay[facility] History of Present illness Narrative* Chip Arreola MD - 10/25/2021 1:48 PM EDT Patient presents with: 6 Month Exam HPI: Patient presents today for office visit for follow up. CARDIO: Next appt. in december No chest pain. No chest tightness. Occasional palpitations. Hx of afib - currently not taking any anticoagulants. On ASA. ONC: last visit with oncology was 2019. Mammogram in 2020. Patient voices she does not feel the need to see anyone with regards to her breast CA. Due for annual mammogram. Patient consents. Patient notes if there is any abnormalities that [facility] She will not take meds. Understands risks of not going. HTN: Patient is compliant with meds Yes Monitors bp at home: No. Denies side effects: Yes. Chest pain: No. Dyspnea: No. Edema: No. Palpitations: No. Syncope: No. Headache: No. Dizziness: No. DM: Reports overall feeling well. Medication side effects: Patient currently not taking anything. Home sugar check frequency/results: N/A Hypoglycemic spells: No. Watching diet: No. Unexpected weight loss: No. Polyuria, polydipsia: No. Vision Changes: No. Hx of cataract surgery Foot lesions or numbness or pain: No. Component Latest Ref Rng & Units 05/21/2021 WBC 3.70 - 11.00 k/uL 4.47 RBC 3.90 - 5.20 m/uL 4.63 Hemoglobin 11.5 - 15.5 g/dL 14.3 Hematocrit 36.0 - 46.0 % 44.4 MCV 80.0 - 100.0 fL 95.9 MCH 26.0 - 34.0 pG 30.9 MCHC 30.5 - 36.0 g/dL 32.2 RDW-CV 11.5 - 15.0 % 12.8 Platelet Count 150 - 400 k/uL 242 MPV 9.0 - 12.7 fL 9.9 Neut% % 60.6 Abs Neut (ANC) 1.45 - 7.50 k/uL 2.70 Lymph% % 27.3 Abs Lymph 1.00 - 4.00 k/uL 1.22 [place]% % 6.7 Abs [place] <0.87 k/uL 0.30 Eosin% % 4.5 Abs Eosin <0.46 k/uL 0.20 Baso% % 0.9 Abs Baso <0.11 k/uL 0.04 Nucleated Reds 0 /100 WBC 0.0 Absolute nRBC <0.01 k/uL <0.01 Diff Type Auto Diff Protein, Total 6.3 - 8.0 g/dL 6.3 Albumin 3.9 - 4.9 g/dL 3.9 Calcium 8.5 - 10.2 mg/dL 9.0 Bilirubin, Total 0.2 - 1.3 mg/dL 0.3 Alkaline Phosphatase 34 - 123 U/L 67 AST 13 - 35 U/L 21 Glucose 74 - 99 mg/dL 118 (H) BUN 7 - 21 mg/dL 20 Creatinine 0.58 - 0.96 mg/dL 1.02 (H) Sodium 136 - 144 mmol/L 144 Potassium 3.7 - 5.1 mmol/L 3.8 Chloride 97 - 105 mmol/L 106 (H) CO2 22 - 30 mmol/L 28 Anion Gap 9 - 18 mmol/L 10 ALT 7 - 38 U/L 22 eGFR- >60 eGFR-All Other Races . 53 Cholesterol, Total <200 mg/dL 181 Triglyceride <150 mg/dL 104 HDL Cholesterol >39 mg/dL 56 LDL Cholesterol <100 mg/dL 104 (H) Non HDL Cholesterol <130 mg/dL 125 Fasting Time hrs 10 VLDL Cholesterol <30 mg/dL 21 TC:HDL Ratio <5.10 3.23 LDL:HDL Ratio <2.54 1.86 Creatinine, Ur Random (UCRR) 20 - 300 mg/dL 25.1 Albumin, Urine Random mg/L <12.0 Albumin/Creat Ratio <30 mg/g Not calculated Hemoglobin A1C 4.3 - 5.6 % 6.0 (H) Estimated Average Glucose mg/dL 126 TSH 0.270 - 4.200 uU/mL 1.820 Vitamin D 25 Hydroxy 31.0 - 80.0 ng/mL 32.8 MEDICATIONS: Current Outpatient Medications Medication Sig furosemide (LASIX) 40 mg tablet Take 1 tablet by mouth once daily. valsartan (DIOVAN) 160 mg tablet Take 1 tablet by mouth once daily. metoprolol succinate ER (TOPROL XL) 25 mg 24 hr tablet Take 1 tablet by mouth once daily. aspirin, enteric coated (ASPIRIN, ENTERIC COATED) 81 mg EC tablet Take 1 tablet by mouth once daily. Magnesium 250 mg tab Take 250 mg by mouth once daily. cholecalciferol, vitamin D3, (VITAMIN D3 ORAL) Take by mouth. ascorbic acid (VITAMIN C ORAL) Take 500 mg by mouth once daily. thiamine HCl (VITAMIN B-1 ORAL) Take 250 mg by mouth once daily. multivitamins(DAILY MULTIVITAMIN TAB) Take one(1) tablet daily. ZINC ACETATE ORAL Take 50 mg by mouth once daily. (Patient not taking: Reported on 08/27/2021 ) No current facility-administered medications for this visit. ALLERGIES: ALLERGIES Allergen Reactions Adhesive Tape-Silic* Rash ALL hydrogels, hydrocolloids, adhesives Anastrozole Other: See Comments migraines Aquacel-Ag [Silver-* Itching And redness Azithromycin Swelling facial Exemestane Other: See Comments Decreased use of right arm Lisinopril Cough PAST MEDICAL HISTORY Diagnosis Date Abnormal EKG afib, inf [place] age undetermined Atrial fibrillation (HCC) Breast cancer (HCC) 03/2018 left breast Congestive heart failure (HCC) 09/24/2018 Epistaxis balloon out osteo History of colonoscopy [address] Stoney Hernandez , normal HTN (hypertension) Hyperglycemia Knee pain, chronic Lt Migraines stopped when she retired Normal cardiac stress test 2004 Dr. Romero Osteoarthritis Seasonal allergies Type 2 diabetes mellitus without complication, without long-term current use of insulin (HCC) 04/11/2016 PAST SURGICAL HISTORY Procedure Laterality Date ARTHRP KNE CONDYLE&PLATU MEDIAL&LAT COMPARTMENTS 2011 Knee replacement, total, right ARTHRP KNE CONDYLE&PLATU MEDIAL&LAT COMPARTMENTS Knee replacement, total, left BIOPSY BREAST OPEN INCISIONAL 2004 Bx of breast, incisional left LAPAROSCOPIC APPENDECTOMY 02/28/10 LIG/TRNSXJ FLP TUBE ABDL/VAG APPR UNI/BI 1973 Tubal ligation PAST SURGICAL HISTORY OF Left 03/27/2018 biopsy and lumpectomy left breast breast with lymph node removal x 4 PAST SURGICAL HISTORY OF Right shoulder surgery PICC LINE INSERT/CONSULT 03/09/2020 TONSILLECTOMY & ADENOIDECTOMY <AGE 11 T/A (under age 11 years) TOTAL ABDOMINAL HYSTERECT W/WO RMVL TUBE OVARY 1975 Hysterectomy, DANYELLE FAMILY HISTORY Problem Relation Age of Onset Breast Cancer Mother Hypertension Mother Hypertension Father Heart Father [place] Diabetes Father Kidney Disease Sister Heart disease Sister Cancer Sister breast COPD Sister Hypertension Sister Macular Degen Sister Arthritis Sister Cancer Sister breast Hypertension Sister Macular Degen Sister Diabetes Sister Tremor Sister Hypertension Sister Cancer Sister uterine,breast Blood Clots Sister Aneurysm Brother Hypertension Brother Diabetes Brother other (MVA) Brother Cancer Daughter uterine Hypertension Daughter Hypertension Son Hypertension Son Breast Cancer Maternal Grandmother Breast Cancer Other niece x3 Colon Cancer Other nephew Stroke Paternal Grandmother No Known Problems Maternal Grandfather in his 70's other (TB) Paternal Grandfather Social History Tobacco Use Smoking status: Never Smoker Smokeless tobacco: Never Used Vaping Use Vaping Use: Never used Substance Use Topics Alcohol use: No Drug use: No Reviewed current medications, allergies, past medical history, surgical history, family history andsocial history today. REVIEW OF SYSTEMS All other reviewed and negative other than HPI. HEALTH MAINTENANCE: Reviewed health maintenance issues today and recommended the following in detail. COVID-19 VACCINE(1) Never done. Patient refused PNEUMOCOCCAL: 64+(1 - PCV) Never done. Patient refused. HEPATITIS C SCREENING Never done SHINGRIX VACCINE(1 of 2) Never done. Patient refused. ADVANCE DIRECTIVE DISCUSSION done. DIABETIC FOOT EXAM done. 10/25/21.-[facility] DILATED RETINAL EXAM. Next eye appt in December. VITALS: BP 122/82 Pulse 88 Wt 98.4 kg (217 lb) BMI 42.38 kg/m Last 4 Encounter Wt Readings: Date: Wt: 10/25/2021 98.4 kg (217 lb) 08/27/2021 97.1 kg (214 lb) 08/22/2021 100.2 kg (220 lb 12.8 oz) 05/21/2021 97.5 kg (215 lb) PHYSICAL EXAMINATION: General appearance: Well appearing, alert, in no acute distress, well-hydrated, well nourished. Skin: Skin color, texture, turgor normal, no suspicious rashes or lesions Head: Normocephalic, no masses, lesions, tenderness or abnormalities Eyes: Anicteric sclera. Pupils are equally round and reactive to light. Extraocular movements are intact. Oropharynx: Lips, mucosa, and tongue normal, teeth and gums normal, oropharynx normal Back: Normal exam Lungs: Lungs clear to auscultation. No wheezing, rhonchi, rales Heart: RRR without murmur, gallop, or rubs. No ectopy Abdomen: Normal abdominal exam, Abdomen soft, non-tender. Bowel sounds normal. No masses, organomegaly Extremities: No deformities, edema, skin discoloration, clubbing or cyanosis. Good capillary refill. Musculoskeletal: No joint swelling, deformity, or tenderness Peripheral pulses: Normal Neuro: Negative. Normal monofilaments. ASSESSMENT/PLAN: 1. Malignant neoplasm of left breast in female, estrogen receptor positive, 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 (HCC) - ICD9: 174.9, V86.0, ICD10: C50.912, Z17.0 (primary diagnosis) - [facility] 2. Paroxysmal atrial fibrillation (HCC) - ICD9: 427.31, ICD10: I48.0 - continue to see cardiology 3. Essential hypertension, benign - ICD9: 401.1, ICD10: I10 - good control - Continue current medication(s) - Goal of BP <130/80 4. Pulmonary HTN (HCC) - ICD9: 416.8, ICD10: I27.20 - continue current follow up. 5. Chronic diastolic congestive heart failure (HCC) - ICD9: 428.32, 428.0, ICD10: I50.32 - no signs of follow up. 6. Type 2 diabetes mellitus without complication, without long-term current use of insulin (HCC) - ICD9: 250.00, ICD10: E11.9 Controlled. - Continue current medications Chip Arreola RTO in six months and prn. documented in [facility] encounterWay[facility] Miscellaneous Notes* Telephone Encounter - Katheryn Villanueva LPN - 10/16/2021 8:07 AM EDT Patient phones requesting refills as follows: Pending Prescriptions Disp Refills FUROSEMIDE 40 MG TABLET 90 tablet 3 Sig: Take 1 tablet by mouth once daily. DANIELA: No VALSARTAN 160 MG TABLET 90 tablet 3 Sig: Take 1 tablet by mouth once daily. DANIELA: No ABY 04/27/21 NOV 10/25/21 Please review and advise. Katheryn Villanueva LPN documented in this encounterWay[facility]06-[facility] History of Present illness Narrative* Karlene Troncoso PA-C - 09/10/2021 8:26 AM EDT Karlene Troncoso PA-C Department of Orthopaedics Orthopaedics [address] [facility] [address] Dept: [phone] Dept September 10, 2021 CHIEF COMPLAINT: Established Patient and Fracture of the Right Wrist. ASSESSMENT: S52.571A Other closed intra-articular fracture of distal end of right radius, initial encounter (primary encounter diagnosis) SUMMARY/PLAN: Patient presents 3 weeks and 3 days status post right radial styloid fracture. She denies any pain today. She is a little frustrated with the Exos brace that she is having difficulty quilting and eating. She has been removing the brace while at rest to ice. New x-rays were obtained today and fracture remains stable. We discussed getting her into a modabber brace. She can continue to remove the brace to work on some gentle activity while she is seated. Continue to wear the brace during activity for the next 2 weeks. Exam: Right wrist is without tenderness to palpation, mild but appropriate edema of the wrist without ecchymosis. Patient has active range of motion of the wrist without pain. Imaging: IMPRESSION: Stable appearance of a radial styloid fracture. International Exchange Coordinator: [facility] Transcribe Date/Time: Sep 10 2021 11:29A Dictated by : KAYCE BARBA MD This examination was interpreted and the report reviewed and electronically signed by: KAYCE BARBA MD on Sep 10 2021 11:33AM EST Results-Findings * * *Final Report* * * DATE OF EXAM: Sep 10 2021 7:34AM [id number] [id number] - XR WRIST 3V PA/LAT/OBL RT / PROCEDURE REASON: Other closed intra-articular fracture of distal end of right radius, initial enc * * * * Physician Interpretation * * * * CLINICAL INDICATION: Closed fracture follow-up TECHNIQUE: 3 view radiographic study of the right wrist COMPARISON: Radiograph dated August 22, 2021 FINDINGS: Osseous demineralization. Redemonstration of an oblique fracture of the radial styloid without significant appreciable interval healing. Stable alignment. Well-corticated ossicle adjacent to the ulnar styloid. Stable mild degenerative changes of the first carpal metacarpal joint with mild hypertrophic change. Stable mild degenerative changes about the first interphalangeal joint. Ms. Kesha Carmichael was advised as to contrast therapies and/or to take analgesics/anti-inflammatories as needed and all contraindications were reviewed. Supporting Information Below: Medications: Current Outpatient Medications Medication Sig metoprolol succinate ER (TOPROL XL) 25 mg 24 hr tablet Take 1 tablet by mouth once daily. aspirin, enteric coated (ASPIRIN, ENTERIC COATED) 81 mg EC tablet Take 1 tablet by mouth once daily. Magnesium 250 mg tab Take 250 mg by mouth once daily. cholecalciferol, vitamin D3, (VITAMIN D3 ORAL) Take by mouth. ascorbic acid (VITAMIN C ORAL) Take 500 mg by mouth once daily. valsartan (DIOVAN) 160 mg tablet Take 1 tablet by mouth once daily. furosemide (LASIX) 40 mg tablet Take 1 tablet by mouth once daily. thiamine HCl (VITAMIN B-1 ORAL) Take 250 mg by mouth once daily. multivitamins(DAILY MULTIVITAMIN TAB) Take one(1) tablet daily. ZINC ACETATE ORAL Take 50 mg by mouth once daily. (Patient not taking: Reported on 08/27/2021 ) No current facility-administered medications for this visit. Allergies: Adhesive Tape-Silicones, Anastrozole, Aquacel-Ag [Silver-Hydrocolloid Dressing], Azithromycin, Exemestane, and Lisinopril This note was partially generated using [employer] voice recognition system, and there may be some incorrect words, spellings, and punctuation that were not noted in checking the note before saving. Karlene Troncoso PA-C * Olga Cochran Ma - 09/10/2021 8:01 AM EDT AMB ROOMING INTAKE FLOWSHEET DATA Risk Screening Do you have concerns about personal safety or safety in the home?: No Patient here today for 3 weeks 3 days post right wrist fracture. She denies any pain. Arrives with Exos brace in place. New x-ray completed today. documented in this encounterWayne Hospital06-[facility]22 History of Present illness Narrative* RT Liu(R) - 09/10/2021 8:00 AM EDT Radiology Service Progress Note PATIENT NAME: Kesha Carmichael DATE OF SERVICE: September 10, 2021 TIME: 7:29 AM PATIENT IDENTITY VERIFICATION COMPLETED USING TWO (2) IDENTIFIERS: Name and Date of confirmedby patient verbally. FALL SCREENING: Has the patient had 2 falls in the last year or 1 fall with injury or currently using an Ambulatory Assistive Device (Walker, Cane, Wheelchair, Crutches, etc.)? Yes, Patient High Riskfor Falls What interventions were put in place to prevent falls during this visit? Instructed Patient to Callfor Help if Needed, Offered Assistance with Transfers/Clothing, Instructed Patient to Remain Seated(Not on Exam Table) Until Exam, Increased Observations by Caregivers and Patient Refused Interventio ns/Assistance PATIENT GENDER DATA: Female. status: : No status: NO. PATIENT RELEVANT IMPLANT DATA REVIEWED: Not Applicable RADIOLOGY DEPARTMENT: General X-ray: Exam(s) Completed: Upper Extremity X- Ray(s): Wrist, right PERIPHERAL IV DATA: Not applicable SIGNED BY: RT Liu(R) September 10, 2021 7:29 AM documented in this encounterWayne Hospital05-23-2022 History of Present illness Narrative* Olga Cochran Ma - 08/27/2021 2:10 PM EDT PT ASSESSMENT - CASTING ROOM [facility] presents for Application of brace. Applied Medium Long Thumb Spica Exos to Right hand. Patient electronically signed Omari BENDER. Patient has been instructed in Care and proper application of brace. Olga Cochran Ma * Donald Massey MD - 08/27/2021 1:19 PM EDT Donald Massey MD Department of Orthopaedics Orthopaedics [address] [facility] [address] Dept: [phone] Dept August 27, 2021 CHIEF COMPLAINT: New and Fracture of the Right Wrist and REF: Luana (xray 08-22-2021) HPI Pt. having no pain and taking nothing. Wearing splint and REINALDO wrap which she states is bothersome. She fell down steps on 08-17-2021 and had xray in Urgent Care on 08-22-21. Splint removed. Skin intact. AMB ROOMING INTAKE FLOWSHEET DATA ASSESSMENT: S52.570K Other closed intra-articular fracture of distal end of right radius, initial encounter (primary encounter diagnosis) PLAN: She has a radial styloid fracture which looks to be a pretty stable injury. I would like to get a follow-up x-ray in about a week or 2. I will be out, so we will get her in with our PA to check x-rays. Order placed. FOLLOW UP INSTRUCTIONS: As above Ms. Kesha Carmichael was advised as to contrast therapies and/or to take analgesics/anti-inflammatories as needed and all contraindications were reviewed. OBJECTIVE: Ms. Kesha Carmichael is a pleasant 76 year old in no apparent distress. Gen:Ht 5' 0[stated[ (1.52m) Wt 214 lb (97.1kg) BMI 41.79 kg/(m^2). nl development, non obese, no deformities ENT: Normocephalic, normal hearing, moist mucosa CV: Pulses:Radial= 2+ and symmetric, capillary refill < 2 secs, no peripheral edema/varicosities Skin: no rash, bruising or lesions. Good turgor. Psych: cooperative and appropriate, alert and oriented x 3, good mood and affect. Musculoskeletal: Mild and appropriate resolving ecchymoses and tenderness over the radial styloid and metaphysis. Neurovascular exam intact. IMAGING: IMPRESSION: Nondisplaced transverse fracture involving the radial styloid process which appears to be subacute in nature. Correlation with patient history and physical exam findings may be helpful. International Exchange Coordinator: GR Transcribe Date/Time: Aug 22 2021 10:45A Dictated by : DILMA CARRILLO MD This examination was interpreted and the report reviewed and electronically signed by: DILMA CARRILLO MD on Aug 22 2021 10:47AM EST Results-Findings * * *Final Report* * * DATE OF EXAM: Aug 22 2021 10:43AM WOX [id number] - XR WRIST 4V PA/LAT/OBL/SCAPH RT / PROCEDURE REASON: Acute pain of right wrist * * * * Physician Interpretation * * * * Right wrist radiograph HISTORY: 76 years old Clinical information: Acute pain of right wrist Right radial sided wrist pain x 1 week following a fall TECHNIQUE: Images: XR WRIST 4V PA/LAT/OBL/SCAPH RT Comparison: None. RESULT: Findings: Transverse nondisplaced fracture involving the radial styloid process which appears to be subacute in nature. Ossification adjacent to the ulnar styloid process related to prior trauma. Chondrocalcinosis in the region of the triangular fibrocartilage. Osteophyte formation subjacent to the first CMC joint. Negative ulnar variance. Soft tissue calcification radial to the distal scaphoid. Supporting Subjective Information Below: Past Medical History: PAST MEDICAL HISTORY Diagnosis Date Abnormal EKG afib, inf [place] age undetermined Atrial fibrillation (HCC) Breast cancer (HCC) 03/2018 left breast Congestive heart failure (HCC) 09/24/2018 Epistaxis balloon out osteo History of colonoscopy [address] Stoney Hernandez , normal HTN (hypertension) Hyperglycemia Knee pain, chronic Lt Migraines stopped when she retired Normal cardiac stress test 2004 Dr. Romero Osteoarthritis Seasonal allergies Type 2 diabetes mellitus without complication, without long-term current use of insulin ([facility]) 04/11/2016 Past Surgical History: PAST SURGICAL HISTORY Procedure Laterality Date ARTHRP KNE CONDYLE&PLATU MEDIAL&LAT COMPARTMENTS 2012 Knee replacement, total, right ARTHRP KNE CONDYLE&PLATU MEDIAL&LAT COMPARTMENTS Knee replacement, total, left BIOPSY BREAST OPEN INCISIONAL 2004 Bx of breast, incisional left LAPAROSCOPIC APPENDECTOMY 02/28/10 LIG/TRNSXJ FLP TUBE ABDL/VAG APPR UNI/BI 1973 Tubal ligation PAST SURGICAL HISTORY OF Left 03/27/2018 biopsy and lumpectomy left breast breast with lymph node removal x 4 PAST SURGICAL HISTORY OF Right shoulder surgery PICC LINE INSERT/CONSULT 03/09/2020 TONSILLECTOMY & ADENOIDECTOMY <AGE 11 T/A (under age 11 years) TOTAL ABDOMINAL HYSTERECT W/WO RMVL TUBE OVARY 1975 Hysterectomy, DANYELLE Family History: FAMILY HISTORY Problem Relation Age of Onset Breast Cancer Mother Hypertension Mother Hypertension Father Heart Father OK Diabetes Father Kidney Disease Sister Heart disease Sister Cancer Sister breast COPD Sister Hypertension Sister Macular Degen Sister Arthritis Sister Cancer Sister breast Hypertension Sister Macular Degen Sister Diabetes Sister Tremor Sister Hypertension Sister Cancer Sister uterine,breast Blood Clots Sister Aneurysm Brother Hypertension Brother Diabetes Brother other (MVA) Brother Cancer Daughter uterine Hypertension Daughter Hypertension Son Hypertension Son Breast Cancer Maternal Grandmother Breast Cancer Other niece x3 Colon Cancer Other nephew Stroke Paternal Grandmother No Known Problems Maternal Grandfather in his 70's other (TB) Paternal Grandfather Social History: Social History Tobacco Use Smoking status: Never Smoker Smokeless tobacco: Never Used Substance Use Topics Alcohol use: No Drug use: No Medications: Current Outpatient Medications Medication Sig metoprolol succinate ER (TOPROL XL) 25 mg 24 hr tablet Take 1 tablet by mouth once daily. aspirin, enteric coated (ASPIRIN, ENTERIC COATED) 81 mg EC tablet Take 1 tablet by mouth once daily. Magnesium 250 mg tab Take 250 mg by mouth once daily. cholecalciferol, vitamin D3, (VITAMIN D3 ORAL) Take by mouth. ascorbic acid (VITAMIN C ORAL) Take 500 mg by mouth once daily. valsartan (DIOVAN) 160 mg tablet Take 1 tablet by mouth once daily. furosemide (LASIX) 40 mg tablet Take 1 tablet by mouth once daily. thiamine HCl (VITAMIN B-1 ORAL) Take 250 mg by mouth once daily. multivitamins(DAILY MULTIVITAMIN TAB) Take one(1) tablet daily. ZINC ACETATE ORAL Take 50 mg by mouth once daily. (Patient not taking: Reported on 08/27/2021 ) No current facility-administered medications for this visit. Allergies: Adhesive Tape-Silicones, Anastrozole, Aquacel-Ag [Silver-Hydrocolloid Dressing], Azithromycin, Exemestane, and Lisinopril ROS: General (negative for fatigue, malaise, weight loss/gain) HEENT (negative for headache, earache, recent vision changes, sinus pain, sore throat) Respiratory (no recent shortness of breath, hemoptysis) CV (negative for chest tightness, palpitations) Musculoskeletal (see HPI) Psych (no depression, anxiety) REFERRING PHYSICIAN: Ms. Kesha Carmichael was referred to me for consultation by the following physician. This consultation note will be sent to the following physician by either mail or electronic medical record. Jaleel Cerda [address] [facility] [address] Chip Arreola MD [address] [facility] [id number] Donald Massey MD documented in this encounterWayne Hospital05-18-2022 History of Present illness Narrative* Shannan Grimm, RT(R) - 08/22/2021 10:40 AM EDT Radiology Service Progress Note PATIENT NAME: Kesha Carmichael DATE OF SERVICE: August 22, 2021 TIME: 10:35 AM PATIENT IDENTITY VERIFICATION COMPLETED USING TWO (2) IDENTIFIERS: Name and Date of confirmedby patient verbally. FALL SCREENING: Has the patient had 2 falls in the last year or 1 fall with injury or currently using an Ambulatory Assistive Device (Walker, Cane, Wheelchair, Crutches, etc.)? No PATIENT GENDER DATA: Female. status: : No status: NO. PATIENT RELEVANT IMPLANT DATA REVIEWED: Yes RADIOLOGY DEPARTMENT: General X-ray: Exam(s) Completed: Upper Extremity X- Ray(s): Wrist, right PERIPHERAL IV DATA: Not applicable SIGNED BY: RT Berto(R) August 22, 2021 10:35 AM documented in this encounterWayne Hospital05-18-2022 History of Present illness Narrative* Jaleel Cerda MD - 08/22/2021 10:11 AM EDT Patient presents with: Wrist/forearm Injury: R wrist pain and bruising after slipping on stairs x1 week HPI: Right wrist pain: Duration: Slipped going up steps 1 week ago and injured her right wrist Location: Radial wrist Character: Sharp with use or touching Radiation: No. Aggravating: bending and twisting Relieving: Pain relievers: none Associated: bruising Pertinent negatives: Denies numbness PAST MEDICAL HISTORY Diagnosis Date Abnormal EKG afib, inf OK age undetermined Atrial fibrillation (HCC) Breast cancer (HCC) 03/2018 left breast Congestive heart failure (HCC) 09/24/2018 Epistaxis balloon out osteo History of colonoscopy [address] Stoney Hernandez , normal HTN (hypertension) Hyperglycemia Knee pain, chronic Lt Migraines stopped when she retired Normal cardiac stress test 2004 Dr. Romero Osteoarthritis Seasonal allergies Type 2 diabetes mellitus without complication, without long-term current use of insulin ([facility]) 04/11/2016 MEDICATIONS: metoprolol succinate ER (TOPROL XL) 25 mg 24 hr tablet Take 1 tablet by mouth once daily. ZINC ACETATE ORAL Take 50 mg by mouth once daily. aspirin, enteric coated (ASPIRIN, ENTERIC COATED) 81 mg EC tablet Take 1 tablet by mouth once daily. Magnesium 250 mg tab Take 250 mg by mouth. cholecalciferol, vitamin D3, (VITAMIN D3 ORAL) Take by mouth. ascorbic acid (VITAMIN C ORAL) Take by mouth. valsartan (DIOVAN) 160 mg tablet Take 1 tablet by mouth once daily. furosemide (LASIX) 40 mg tablet Take 1 tablet by mouth once daily. thiamine HCl (VITAMIN B-1 ORAL) Take by mouth. multivitamins(DAILY MULTIVITAMIN TAB) Take one(1) tablet daily. ALLERGIES: ALLERGIES Allergen Reactions Adhesive Tape-Silic* Rash ALL hydrogels, hydrocolloids, adhesives Anastrozole Other: See Comments migraines Aquacel-Ag [Silver-* Itching And redness Azithromycin Swelling facial Exemestane Other: See Comments Decreased use of right arm Lisinopril Cough VITALS: BP 132/80 Pulse 90 Temp 36.2 C (97.2 F) Resp 20 Wt 100.2 kg (220 lb 12.8 oz) SpO2 96% BMI 41.72 kg/m PE: Pleasant, in no acute distress. WRIST: Right. Ecchymosis distal right radial forearm. Decreased flexion/extension, pain with extreme supination/pronation. Tender distal radius and snuff box. Nontender distal ulna, other carpal bones, and metacarpals. Normal finger sensation and capillary refill. ASSESSMENT/PLAN: 1. Other closed intra-articular fracture of distal end of right radius, initial encounter - ICD9: 813.42, ICD10: S52.571A (primary diagnosis) 2. Acute pain of right wrist - ICD9: 719.43, ICD10: M25.531 - XR WRIST INJURY 4V PA/LAT/OBL/SCAPH RIGHT Transverse nondisplaced fracture involving the radial styloid process which appears to be subacute in nature. Orthoglass volar splint applied. Attempted to convince patient to avoid use of the right arm and schedule casting to allow proper healing. Jaleel Cerda MD documented in this encounterWayne Hospital03-29-2022 Miscellaneous Notes* Telephone Encounter - Chip Arreola MD - 07/03/2021 12:43 PM EDT printed documented in this encounterWayne Hospital11-11-2021 NoteHNO ID: [id number] Author: RT Romina(R) Service: Radiology Author Type: Technologist Type: Progress Notes Filed: 02/15/2021 10:06 AM Note Text: Radiology Service Progress Note PATIENT NAME: Kesha Carmichael DATE OF SERVICE: February 15, 2021 TIME: 10:06 AM PATIENT IDENTITY VERIFICATION COMPLETED USING TWO (2) IDENTIFIERS: Name and Date of confirmed by patient verbally. FALL SCREENING: Has the patient had 2 falls in the last year or 1 fall with injury or currently using an Ambulatory Assistive Device (Walker, Cane, Wheelchair, Crutches, etc.)? No PATIENT GENDER DATA: Female. status: : No status: N/A PATIENT RELEVANT IMPLANT DATA REVIEWED: Not Applicable RADIOLOGY DEPARTMENT: General X-ray: Exam(s) Completed: Pelvis X-Ray: Pelvis with Hip Right PERIPHERAL IV DATA: Not applicable SIGNED BY: RT Romina(R) February 15, 2021 10:06 AMMarion HospitalDulagthi08-20-1413 History of Present illness Narrative* Lito Hilton (Rt), Tech - 03/04/2020 10:10 AM EST Radiology Service Progress Note PATIENT NAME: Kesha Carmichael DATE OF SERVICE: March 04, 2020 TIME: 10:09 AM PATIENT IDENTITY VERIFICATION COMPLETED USING TWO (2) IDENTIFIERS: Name and Date of confirmedby patient verbally. FALL SCREENING: Has the patient had 2 falls in the last year or 1 fall with injury or currently using an Ambulatory Assistive Device (Walker, Cane, Wheelchair, Crutches, etc.)? No PATIENT GENDER DATA: Female. status: : No status: NO. PATIENT RELEVANT IMPLANT DATA REVIEWED: Not Applicable RADIOLOGY DEPARTMENT: General X-ray: Exam(s) Completed: Lower Extremity X- Ray(s): Knee, AP / Lat / Tunne / Merchant Left: PERIPHERAL IV DATA: Not applicable SIGNED BY: RT John March 04, 2020 10:09 AM documented in this encounterWayne Hospital08-28-2020 History of Past illness Narrative* Problem Noted Date Resolved Date Breast pain 12/03/2019 04/27/2021 Arthritis of knee 05/31/2013 05/31/2013 Pain in joint, lower leg 09/24/2011 016 Arthritis of knee 09/11/2011 09/11/2011 Osteoarthrosis, unspecified whether generalized or localized, lower leg 09/09/2011 09/09/2011 Seborrheic Keratosis 07/26/2010 07/01/2011 Solar lentigo 07/26/2010 07/01/2011 Actinic skin damage 07/26/2010 07/01/2011 Other physical therapy 04/10/2010 2 Rotator cuff tear 04/03/2010 04/11/2016 Acute appendicitis without mention of peritoniti s 03/04/2010 08/06/2012 documented as of this encounter (statuses as of 07/04/2021) [facility] History of Past illness Narrative* Problem Noted Date Resolved Date Breast pain 12/03/2019 04/27/2021 Arthritis of knee 05/31/2013 05/31/2013 Pain in joint, lower leg 09/24/2011 016 Arthritis of knee 09/11/2011 09/11/2011 Osteoarthrosis, unspecified whether generalized or localized, lower leg 09/09/2011 09/09/2011 Seborrheic Keratosis 07/26/2010 07/01/2011 Solar lentigo 07/26/2010 07/01/2011 Actinic skin damage 07/26/2010 07/01/2011 Other physical therapy 04/10/2010 2 Rotator cuff tear 04/03/2010 04/11/2016 Acute appendicitis without mention of peritoniti s 03/04/2010 08/06/2012 documented as of this encounter (statuses as of 08/21/2021) [facility] of Past illness Narrative* Problem Noted Date Resolved Date Breast pain 12/03/2019 04/27/2021 Arthritis of knee 05/31/2013 05/31/2013 Pain in joint, lower leg 09/24/2011 016 Arthritis of knee 09/11/2011 09/11/2011 Osteoarthrosis, unspecified whether generalized or localized, lower leg 09/09/2011 09/09/2011 Seborrheic Keratosis 07/26/2010 07/01/2011 Solar lentigo 07/26/2010 07/01/2011 Actinic skin damage 07/26/2010 07/01/2011 Other physical therapy 04/10/2010 2 Rotator cuff tear 04/03/2010 04/11/2016 Acute appendicitis without mention of peritoniti s 03/04/2010 08/06/2012 documented as of this encounter (statuses as of 08/22/2021) [facility] of [facility] illness Narrative* Problem Noted Date Resolved Date Breast pain 12/03/2019 04/27/2021 Arthritis of knee 05/31/2013 05/31/2013 Pain in joint, lower leg 09/24/2011 016 Arthritis of knee 09/11/2011 09/11/2011 Osteoarthrosis, unspecified whether generalized or localized, lower leg 09/09/2011 09/09/2011 Seborrheic Keratosis 07/26/2010 07/01/2011 Solar lentigo 07/26/2010 07/01/2011 Actinic skin damage 07/26/2010 07/01/2011 Other physical therapy 04/10/2010 2 Rotator cuff tear 04/03/2010 04/11/2016 Acute appendicitis without mention of peritoniti s 03/04/2010 08/06/2012 documented as of this encounter (statuses as of 08/27/2021) [facility] of [facility] illness Narrative* Problem Noted Date Resolved Date Breast pain 12/03/2019 04/27/2021 Arthritis of knee 05/31/2013 05/31/2013 Pain in joint, lower leg 09/24/2011 016 Arthritis of knee 09/11/2011 09/11/2011 Osteoarthrosis, unspecified whether generalized or localized, lower leg 09/09/2011 09/09/2011 Seborrheic Keratosis 07/26/2010 07/01/2011 Solar lentigo 07/26/2010 07/01/2011 Actinic skin damage 07/26/2010 07/01/2011 Other physical therapy 04/10/2010 2 Rotator cuff tear 04/03/2010 04/11/2016 Acute appendicitis without mention of peritoniti s 03/04/2010 08/06/2012 documented as of this encounter (statuses as of 09/10/2021) [facility] of [facility] illness Narrative* Problem Noted Date Resolved Date Breast pain 12/03/2019 04/27/2021 Arthritis of knee 05/31/2013 05/31/2013 Pain in joint, lower leg 09/24/2011 016 Arthritis of knee 09/11/2011 09/11/2011 Osteoarthrosis, unspecified whether generalized or localized, lower leg 09/09/2011 09/09/2011 Seborrheic Keratosis 07/26/2010 07/01/2011 Solar lentigo 07/26/2010 07/01/2011 Actinic skin damage 07/26/2010 07/01/2011 Other physical therapy 04/10/2010 2 Rotator cuff tear 04/03/2010 04/11/2016 Acute appendicitis without mention of peritoniti s 03/04/2010 08/06/2012 documented as of this encounter (statuses as of 09/11/2021) [facility] of [facility] illness Narrative* Problem Noted Date Resolved Date Breast pain 12/03/2019 04/27/2021 Arthritis of knee 05/31/2013 05/31/2013 Pain in joint, lower leg 09/24/201103/21/ 016 Arthritis of knee 09/11/2011 09/11/2011 Osteoarthrosis, unspecified whether generalized or localized, lower leg 09/09/2011 09/09/2011 Seborrheic Keratosis 07/26/2010 07/01/2011 Solar lentigo 07/26/2010 07/01/2011 Actinic skin damage 07/26/2010 07/01/2011 Other physical therapy 04/10/2010 2 Rotator cuff tear 04/03/2010 04/11/2016 Acute appendicitis without mention of peritoniti s 03/04/2010 08/06/2012 documented as of this encounter (statuses as of 09/14/2021) [facility] Narrative* Problem Noted Date Resolved Date Breast pain 12/03/2019 04/27/2021 Arthritis of knee 05/31/2013 05/31/2013 Pain in joint, lower leg 09/24/2011 016 Arthritis of knee 09/11/2011 09/11/2011 Osteoarthrosis, unspecified whether generalized or localized, lower leg 09/09/2011 09/09/2011 Seborrheic Keratosis 07/26/2010 07/01/2011 Solar lentigo 07/26/2010 07/01/2011 Actinic skin damage 07/26/2010 07/01/2011 Other physical therapy 04/10/2010 2 Rotator cuff tear 04/03/2010 04/11/2016 Acute appendicitis without mention of peritoniti s 03/04/2010 08/06/2012 documented as of this encounter (statuses as of 10/16/2021) [facility] of [facility] Narrative* Problem Noted Date Resolved Date Breast pain 12/03/2019 04/27/2021 Septic arthritis of shoulder, right 10/07/2018 10/23/2021 Breast cancer, left breast 02/24/201810/23 Overview: Added automatically from request for surgery [id number] Rotator cuff tear arthropathy, right 06/24/2016 10/23/2021 Arthritis of knee 05/31/2013 05/31/2013 Pain in joint, lower leg 09/24/2011 016 Arthritis of knee 09/11/2011 09/11/2011 Osteoarthrosis, unspecified whether generalized or localized, lower leg 09/09/2011 09/09/2011 Seborrheic Keratosis 07/26/2010 07/01/2011 Solar lentigo 07/26/2010 07/01/2011 Actinic skin damage 07/26/2010 07/01/2011 Other physical therapy 04/10/2010 2 Rotator cuff tear 04/03/2010 04/11/2016 Acute appendicitis without mention of peritoniti s 03/04/2010 08/06/2012 documented as of this encounter (statuses as of 10/25/2021) [facility] Narrative* Problem Noted Date Resolved Date Breast pain 12/03/2019 04/27/2021 Septic arthritis of shoulder, right 10/07/2018 10/23/2021 Breast cancer, left breast 02/24/201810/23 Overview: Added automatically from request for surgery [id number] Rotator cuff tear arthropathy, right 06/24/2016 10/23/2021 Arthritis of knee 05/31/2013 05/31/2013 Pain in joint, lower leg 09/24/2011 016 Arthritis of knee 09/11/2011 09/11/2011 Osteoarthrosis, unspecified whether generalized or localized, lower leg 09/09/2011 09/09/2011 Seborrheic Keratosis 07/26/2010 07/01/2011 Solar lentigo 07/26/2010 07/01/2011 Actinic skin damage 07/26/2010 07/01/2011 Other physical therapy 04/10/2010 2 Rotator cuff tear 04/03/2010 04/11/2016 Acute appendicitis without mention of peritoniti s 03/04/2010 08/06/2012 documented as of this encounter (statuses as of 10/27/2021) [facility] Narrative* Problem Noted Date Resolved Date Breast pain 12/03/2019 04/27/2021 Septic arthritis of shoulder, right 10/07/2018 10/23/2021 Breast cancer, left breast 02/24/201810/23 Overview: Added automatically from request for surgery [id number] Rotator cuff tear arthropathy, right 06/24/2016 10/23/2021 Arthritis of knee 05/31/2013 05/31/2013 Pain in joint, lower leg 09/24/2011 016 Arthritis of knee 09/11/2011 09/11/2011 Osteoarthrosis, unspecified whether generalized or localized, lower leg 09/09/2011 09/09/2011 Seborrheic Keratosis 07/26/2010 07/01/2011 Solar lentigo 07/26/2010 07/01/2011 Actinic skin damage 07/26/2010 07/01/2011 Other physical therapy 04/10/2010 2 Rotator cuff tear 04/03/2010 04/11/2016 Acute appendicitis without mention of peritoniti s 03/04/2010 08/06/2012 documented as of this encounter (statuses as of 10/29/2021) [facility] Narrative* Problem Noted Date Resolved Date Breast pain 12/03/2019 04/27/2021 Septic arthritis of shoulder, right 10/07/2018 10/23/2021 Breast cancer, left breast 02/24/201810/23 Overview: Added automatically from request for surgery [id number] Rotator cuff tear arthropathy, right 06/24/2016 10/23/2021 Arthritis of knee 05/31/2013 05/31/2013 Pain in joint, lower leg 09/24/2011 016 Arthritis of knee 09/11/2011 09/11/2011 Osteoarthrosis, unspecified whether generalized or localized, lower leg 09/09/2011 09/09/2011 Seborrheic Keratosis 07/26/2010 07/01/2011 Solar lentigo 07/26/2010 07/01/2011 Actinic skin damage 07/26/2010 07/01/2011 Other physical therapy 04/10/2010 2 Rotator cuff tear 04/03/2010 04/11/2016 Acute appendicitis without mention of peritoniti s 03/04/2010 08/06/2012 documented as of this encounter (statuses as of 10/31/2021) [facility] Narrative* Problem Noted Date Resolved Date Breast pain 12/03/2019 04/27/2021 Septic arthritis of shoulder, right 10/07/2018 10/23/2021 Breast cancer, left breast 02/24/201810/23 Overview: Added automatically from request for surgery [id number] Rotator cuff tear arthropathy, right 06/24/2016 10/23/2021 Arthritis of knee 05/31/2013 05/31/2013 Pain in joint, lower leg 09/24/2011 016 Arthritis of knee 09/11/2011 09/11/2011 Osteoarthrosis, unspecified whether generalized or localized, lower leg 09/09/2011 09/09/2011 Seborrheic Keratosis 07/26/2010 07/01/2011 Solar lentigo 07/26/2010 07/01/2011 Actinic skin damage 07/26/2010 07/01/2011 Other physical therapy 04/10/2010 2 Rotator cuff tear 04/03/2010 04/11/2016 Acute appendicitis without mention of peritoniti s 03/04/2010 08/06/2012 documented as of this encounter (statuses as of 12/05/2021) [facility] Narrative* Problem Noted Date Resolved Date Breast pain 12/03/2019 04/27/2021 Septic arthritis of shoulder, right 10/07/2018 10/23/2021 Breast cancer, left breast 02/24/201810/23 Overview: Added automatically from request for surgery [id number] Rotator cuff tear arthropathy, right 06/24/2016 10/23/2021 Arthritis of knee 05/31/2013 05/31/2013 Pain in joint, lower leg 09/24/2011 016 Arthritis of knee 09/11/2011 09/11/2011 Osteoarthrosis, unspecified whether generalized or localized, lower leg 09/09/2011 09/09/2011 Seborrheic Keratosis 07/26/2010 07/01/2011 Solar lentigo 07/26/2010 07/01/2011 Actinic skin damage 07/26/2010 07/01/2011 Other physical therapy 04/10/2010 2 Rotator cuff tear 04/03/2010 04/11/2016 Acute appendicitis without mention of peritoniti s 03/04/2010 08/06/2012 documented as of this encounter (statuses as of 12/07/2021) [facility] Author Ruiz Reaves [facility] Note Date/Time October 11, 2024 10:[address] [facility] Medical Records Department [address] [place] [address] Emergency Department Summary 10/11/24 MR#: [id number] Acct: [id number] Name: KESHA CARMICHAEL Rep #:[id number] : 1945 79 From: Ruiz Reaves DO PCP: Dr. Chip Arreola MD Status:ADM I N Location: ICU [address] History of Present Illness Chief Complaint: Chest Pain Narrative Narrative: Patient is a 79-year-old female past medical history of persistent atrial fibrillation on Xarelto, BMI of 40-49, type 2 diabetes chest pain she rates it a7 out of 10 in the center of her chest, migraines who presents to the emergency department with a chief complaint of like a elephant is sitting on her chest shestates. Per EMS they held off on nitroglycerin as her concern for a softer blood pressure and possibility of inferior wall OK. They held off on aspirin aswell and prehospital she was on Xarelto. [facility] Medical History Non-rheumatic tricuspid valve insufficiency Paroxysmal atrial fibrillation Acute on chronic diastolic (congestive) heart failure Secondary pulmonary arterial hypertension Essential (primary) hypertension Persistent atrial fibrillation RONALDO (obstructive sleep apnea) Obesity, Class III, BMI 40-49.9 (morbid obesity) Malignant neoplasm of left breast, estrogen receptor positive Type 2 diabetes mellitus Osteoarthritis Migraines Knee pain, chronic Inferior OK Hyperglycemia Epistaxis Home Medications ?Medication ?Instructions ?Recorded ?Last Taken ?Type multivitamin with folic acid 400 1 tab PO DAILY SUPPLE MENT 08/18/17 11/30/18 History mcg tablet omega-3 fatty acids 1,000 mg 2,000 mg PO DAILY supplem ent 09/04/18 11/30/18 History capsule valsartan 160 mg tablet 160 mg PO DAILY heart 11/30/18 History furosemide 40 mg tablet 40 mg PO DAILY #60 tabs 09/06 11/23 Unknown Rx rivaroxaban 20 mg tablet 20 mg PO DAILY 11/03/1811/06 History metoprolol succinate 25 mg 25 mg PO DAILY 03/25/22 Unk nown History tablet,extended release 24 hr metoprolol tartrate 50 mg tablet 50 mg PO DAILY Unknown History Allergy/AdvReac Type Severity Reaction Status Date / Time adhesive Allergy Itching, Verified 04/08/24 12:50 rash, redness allantoin (From Carrasyn Allergy Rash, skin Verified 04/08/24 12:50 Hydrogel Wound Dress) peeling azithromycin Allergy Angioedema Verified 04/08/24 12:50 vitamin A (From Aquasol A) Allergy Rash Verified 04/08/24 12:50 lisinopril AdvReac Other Verified 04/08/24 12:50 Family History Mother Breast cancer Hypertension Grandmother Breast cancer Sister Breast cancer Uterine cancer Sister Breast cancer Aunt Breast cancer Daughter Uterine cancer Sister Breast cancer Sister Kidney disease Sister Diabetes Sister Macular degeneration Brother Colon cancer Diabetes Hypertension Brother , 51yr No problems noted. Surgical History H/O shoulder surgery History of cardioversion (11/30/18) History of tonsillectomy History of tubal ligation History of hysterectomy History of appendectomy History of bilateral knee replacement left axillary lymph node biopsy History of lumpectomy of left breast History of breast biopsy Social History Smoking Status: Never smoker second hand exposure: No alcohol intake: never substance use type: does not use ROS ROS ED ROS Narrative constitutional: Denies any fevers, lightheadedness, dizziness Eyes: Denies change in vision double vision blurry vision Cardiovascular: Complaint chest pain as noted above Respiratory: Denies coughing wheezing shortness of breath Abdomen: Denies abdominal pain vomiting diarrhea : Denies urinary symptoms Neurological: Denies any numbness, wheeze, tingling Musculoskeletal: Denies back pain Skin: Denies any rashes or lesions EXAM Physical Exam Narrative Exam Narrative: General: Patient was lying on the bed rest comfortably did not appear to be acute distress Head: Atraumatic, normocephalic Eyes: PERRL bilaterally, EOMI blood, no conjunctival injection noted Neck: Soft, supple, trachea midline Cardiovascular: Patient tachycardic with an irregular irregular rhythm Respiratory: Clear to auscultation bilaterally Extremities: Patient moving all extremities on exam Neurological: Patient follow commands that she was at [facility] the year is 2024 Skin: Warm, dry, tact no rashes or lesions noted Const Vital Signs: 10/11/24 08:45 10/11/24 08:51 10/11/24 08:57 Temperature 98.1 F Temperature Source Temporal Pulse Rate 125 H Respiratory Rate 22 H 20 H Blood Pressure 153/96 H 153/98 H Blood Pressure Mean 115 Pulse Ox 98 98 Oxygen Delivery Method Room Air Room Air 10/11/24 09:12 Temperature Temperature Source Pulse Rate 100 Respiratory Rate Blood Pressure 151/115 H Blood Pressure Mean Pulse Ox Oxygen Delivery Method MDM MDM MDM Narrative Medical decision making narrative: Patient is a 79-year-old female who presented to the emergency department chief complaint chest pain on the differential did includes ACS, pneumonia, pneumothorax, PE, dissection. Once workup is obtained reviewed she will be reevaluated. Prehospital EKG was reviewed and did show evidence of STEMI therefore STEMI alert was called on-call sliver lap tender Dr. Blum came down and evaluated the patient at bedside. He is recommending aspirin and beta-jarod. He is also requesting aspirin, heparin drip, nitroglycerin drip which were all ordered multiple EKGs were obtained and reviewed therefore after this further review by sliver lap tender he also would prefer to get rate control therefore the patient was given digoxin get echocardiogram and admit the patient to the intensive care unit. Will reach out to the hospitalist. Patient CBC reviewed and showed no evidence leukocytosis white was count normal 8.1, hemoglobin was 14.9, plate count of 290. Patient INR normal at 2.1, PT 23.6. Patient sodium was 143, potassium 3.8, creatinine normal at 0.92. Glucose of 170, troponin was 17 with proBNP 1553. Patient TSH normal at 2.52. There is chest x-ray reviewed by myself and by radiology which showed no acute cardiopulmonary processes. Called and discussed case with hospitalist Dr. Miranda who accept patient for admission to the intensive care unit. Lab Data Labs: Laboratory Results - last 24 hr 10/11/24 10/11/24 08:50 08:54 WBC 8.1 RBC 4.80 Hgb 14.9 Hct 46.2 MCV 96.3 MCH 31.0 MCHC 32.3 RDW Std Deviation 46.0 H RDW Coeff of Gold 12.9 Plt Count 290 MPV 10.3 Immature Gran % (Auto) 0.400 Neut % (Auto) 62.4 Lymph % (Auto) 30.4 [place] % (Auto) 5.7 Eos % (Auto) 0.6 Baso % (Auto) 0.5 Absolute Neuts (auto) 5.1 Absolute Lymphs (auto) 2.46 Nucleated RBC % 0 PT 23.6 H INR 2.1 Sodium 143 Potassium 3.8 Chloride 103 Carbon Dioxide 26.7 Anion Gap 14 BUN 27 H Creatinine 0.92 Estim Creat Clear Calc 51.74 Est GFR (MDRD) Non-Af 63 BUN/Creatinine Ratio 29.1 H Glucose 170 H Calcium 9.9 Magnesium 2.4 H Troponin T High Sens 17 H NT pro BNP II 1553 TSH 2.520 Discharge Plan Triage Chief Complaint: Chest Pain ED Provider: Ruiz Reaves Dx/Rx/DC Orders Clinical Impression: Essential (primary) hypertension, Acute on chronic diastolic (congestive) heartfailure, RONALDO (obstructive sleep apnea), Paroxysmal atrial fibrillation, Chest pain, Non-ST elevation OK (NSTEMI) Primary Care Provider: Chip Arreola Disposition Disposition: [facility] What to do if you have Problems For any increased pain, shortness of breath, bleeding, nausea or vomiting, chestpain, or any unexpected problems, contact your Primary Care Provider. Call [facility] ([phone]) or report to the closest Emergency Room. Call 911 if necessary. 10/11/24 1038 <Electronically signed by Ruiz Reaves DO> Cosigner Signature (if applicable): CC: Dr. Chip Arreola MD ~ Signed [facility] Work Phone: Evaluation note* Diagnosis Pain in right hip- Primary Pain in joint, pelvic region and thigh [facility] Diagnosis Other closed intra-articular fracture of distal end of right radius, initial encounter- Primary Acute pain of right wrist [facility] Diagnosis Other closed intra-articular fracture of distal end of right radius, initial encounter- Primary [facility] Diagnosis Other closed intra-articular fracture of distal end of right radius, initial encounter [facility] Diagnosis Other closed intra-articular fracture of distal end of right radius, initial encounter- Primary [facility] Diagnosis Congestive heart failure, unspecified HF chronicity, unspecified heart failure type (HCC) [facility] Diagnosis Malignant neoplasm of left breast in female, estrogen receptor positive, 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 (HCC)- Primary Paroxysmal atrial fibrillation (HCC) Atrial fibrillation Essential hypertension, benign Pulmonary HTN (HCC) Other chronic pulmonary heart diseases Chronic diastolic congestive heart failure (HCC) Chronic diastolic heart failure Type 2 diabetes mellitus without complication, without long-term current use of insulin (HCC) [facility]* Diagnosis Malignant neoplasm of left breast in female, estrogen receptor positive, 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 (HCC) [facility]* Diagnosis Other closed intra-articular fracture of distal end of right radius, initial encounter [facility]* Diagnosis Essential hypertension, benign- Primary Type 2 diabetes mellitus without complication, without long-term current use of insulin (HCC) Malignant neoplasm of left breast in female, estrogen receptor positive, 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 (HCC) Stage 3 chronic kidney disease, unspecified whether stage 3a or 3b CKD (HCC) [facility]* Diagnosis Closed fracture of right wrist with routine healing, subsequent encounter- Primary Other closed intra-articular fracture of distal end of right radius, initial encounter [facility]* Diagnosis De Quervain's tenosynovitis- Primary Radial styloid tenosynovitis Right wrist pain Pain in joint, forearm documented in this encounter [facility] note* Diagnosis Persistent atrial fibrillation (HCC)- Primary Atrial fibrillation Essential hypertension, benign Chronic diastolic congestive heart failure (HCC) Chronic diastolic heart failure Pulmonary HTN (HCC) Other chronic pulmonary heart diseases Paroxysmal atrial fibrillation (HCC) Atrial fibrillation [facility]* Diagnosis Cellulitis of left lower extremity- Primary documented in this encounter [facility] note* Diagnosis Morbid obesity with BMI of 40.0-44.9, adult (HCC) Morbid obesity Type 2 diabetes mellitus without complication, without long-term current use of insulin (HCC) Chronic diastolic congestive heart failure (HCC) Chronic diastolic heart failure Pulmonary HTN (HCC) Other chronic pulmonary heart diseases Persistent atrial fibrillation (HCC) Atrial fibrillation Type 2 diabetes mellitus with diabetic chronic kidney disease, unspecified CKD stage, unspecified whether senior living insulin use (HCC) Essential tremor Essential and other specified forms of tremor Essential hypertension, benign Obstructive sleep apnea syndrome Obstructive sleep apnea (adult) (pediatric) Stage 3 chronic kidney disease, unspecified whether stage 3a or 3b CKD (HCC) Malignant neoplasm of left breast in female, estrogen receptor positive, 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 (HCC) 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 Long-term (current) use of anticoagulants Hypokalemia Hypopotassemia documented in this encounter [facility] note* Diagnosis Pain in joint of right shoulder- Primary Pain in joint, shoulder region [facility]* Diagnosis Pain in joint of right shoulder Pain in joint, shoulder region [facility] Diagnosis Screening breast examination Breast screening, unspecified [facility] Diagnosis Persistent atrial fibrillation (HCC)- Primary Atrial fibrillation Chronic diastolic congestive heart failure (HCC) Chronic diastolic heart failure Pulmonary HTN (HCC) Other chronic pulmonary heart diseases Essential hypertension, benign H/O mitral valve disease Personal history of other diseases of circulatory system [facility]* Diagnosis Persistent atrial fibrillation (HCC) Atrial fibrillation [facility]* Diagnosis Pain of left lower extremity- Primary Persistent atrial fibrillation (HCC) Atrial fibrillation Essential hypertension, benign Pulmonary HTN (HCC) Other chronic pulmonary heart diseases [facility] noteNo assessment information [facility]WHol[facility] Work Phone: Evaluation note* Diagnosis Hypokalemia- Primary Hypopotassemia [facility]* Diagnosis Congestive heart failure, unspecified HF chronicity, unspecified heart failure type (HCC) [facility]* Diagnosis Persistent atrial fibrillation (HCC)- Primary Atrial fibrillation Chronic diastolic congestive heart failure (HCC) Chronic diastolic heart failure H/O mitral valve disease Personal history of other diseases of circulatory system Essential hypertension, benign Pulmonary HTN (HCC) Other chronic pulmonary heart diseases Morbid obesity with BMI of 40.0-44.9, adult (HCC) Morbid obesity [facility]* Diagnosis Intermediate stage n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 Pseudophakia Lens replaced by other means Posterior vitreous detachment of both eyes Vitreous degeneration [facility]* Diagnosis Encounter for screening mammogram for malignant neoplasm of breast- Primary Other screening mammogram [facility] Diagnosis Encounter for screening mammogram for malignant neoplasm of breast Other screening mammogram [facility] Diagnosis Essential tremor- Primary Essential and other specified forms of tremor Encounter for screening examination for other mental health and behavioral disorders Screening for depression Persistent atrial fibrillation (HCC) Atrial fibrillation Malignant neoplasm of overlapping sites of left breast in female, estrogen receptor positive (HCC) Type 2 diabetes mellitus with diabetic chronic kidney disease, unspecified CKD stage, unspecified whether senior living insulin use (HCC) Obstructive sleep apnea syndrome Obstructive sleep apnea (adult) (pediatric) Essential hypertension, benign [facility]* Diagnosis Pain of left lower extremity [facility]* Diagnosis Acute recurrent sinusitis, unspecified location [facility]* Diagnosis Acute pain of right wrist [facility]* Diagnosis Acute pain of left knee [facility]* Diagnosis Low back pain, unspecified back pain laterality, unspecified chronicity, unspecified whether sciatica present- Primary DDD (degenerative disc disease), thoracic Degeneration of thoracic or thoracolumbar intervertebral disc Tremor Abnormal involuntary movements Falls frequently Personal history of fall [facility]* Diagnosis Low back pain, unspecified back pain laterality, unspecified chronicity, unspecified whether sciatica present DDD (degenerative disc disease), thoracic Degeneration of thoracic or thoracolumbar intervertebral disc [facility]* Diagnosis Persistent atrial fibrillation (HCC) Atrial fibrillation [facility]* Diagnosis Falls frequently- Primary Personal history of fall Frequent falls Personal history of fall [facility]* Diagnosis Persistent atrial fibrillation (HCC) Atrial fibrillation [facility]* Diagnosis Persistent atrial fibrillation (HCC)- Primary Atrial fibrillation Chronic diastolic congestive heart failure (HCC) Chronic diastolic heart failure Essential hypertension, benign Pulmonary HTN (HCC) Other chronic pulmonary heart diseases Morbid obesity with BMI of 40.0-44.9, adult (HCC) Morbid obesity [facility]* Diagnosis Falls frequently- Primary Personal history of fall [facility]* Diagnosis Infected abrasion of left lower extremity, initial encounter- Primary [facility]* Diagnosis Falls frequently- Primary Personal history of fall [facility]* Diagnosis Falls frequently- Primary Personal history of fall [facility]* Diagnosis Falls frequently- Primary Personal history of fall [facility]* Diagnosis Falls frequently- Primary Personal history of fall [facility] Diagnosis Falls frequently- Primary Personal history of fall [facility] Diagnosis Itching with irritation- Primary Unspecified pruritic disorder Cellulitis of skin Cellulitis and abscess of unspecified site Pain of right hip Type 2 diabetes mellitus with chronic kidney disease, without long-term current use of insulin, unspecified CKD stage (HCC) Persistent atrial fibrillation (HCC) Atrial fibrillation Chronic diastolic congestive heart failure (HCC) Chronic diastolic heart failure Pulmonary HTN (HCC) Other chronic pulmonary heart diseases History of total bilateral knee replacement Vitamin D deficiency Unspecified vitamin D deficiency [facility] Diagnosis Pain of right hip [facility]* Diagnosis Falls frequently- Primary Personal history of fall [facility] Diagnosis Rotator cuff tear arthropathy, right- Primary [facility] Diagnosis Rotator cuff tear arthropathy, left- Primary [facility]* Diagnosis Rotator cuff tear arthropathy, right Rotator cuff tear arthropathy, left [facility]* Diagnosis Rotator cuff tear arthropathy, left- Primary Rotator cuff tear arthropathy, right [facility] Diagnosis Hypercalcemia- Primary Bilateral leg edema Edema Essential hypertension, benign Congestive heart failure, unspecified HF chronicity, unspecified heart failure type (HCC) Malignant neoplasm of left breast in female, estrogen receptor positive, 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 (HCC) Body mass index (BMI) 40.0-44.9, adult (HCC) Chronic kidney disease, stage 3a (HCC) Abnormality of gait Falling episodes Lack of coordination [facility] Diagnosis Parathyroid abnormality (HCC)- Primary Unspecified disorder of parathyroid gland [facility] Diagnosis Rotator cuff tear arthropathy, left Rotator cuff tear arthropathy, right [facility] Author Dayanna Miranda [facility] Note Date/Time October 11, 2024 10:[address] [facility] Medical Records Department [address] [place] [address] H&P Exam - Hospitalist 10/11/24 1026 MR#: [id number] Acct: [id number] Name: KESHA CARMICHAEL Rep #:[id number] : 1945 79 From: Dayanna Miranda DO PCP: Dr. Chip Arreola MD Status:ADM I N Location: ICU ICU-1 HPI - General General Date of Admission: 10/11/24 Date of Service: 10/11/24 Chief Complaint: Chest pain HPI Narrative KESHA CARMICHAEL, is a 79 F who presents with epistaxis and chest pain. This is [id number] male who has a history of A-fib on rivaroxaban presents with epistaxis. Patient was also having midsternal, nonradiating chest pain. Spoke with her neighbor who called 911 and patient was brought here. Patient was called as a STEMI alert and was seen by cardiology who rescinded the STEMI alertand admission. Patient was noted to be in A-fib with RVR and did receive a doseof 125 mcg of digoxin. Patient had an INR of 2.1 she does take rivaroxaban and was started on a heparin drip which will be discontinued upon admission. Patient is currently chest pain-free and had been started on a nitroglycerin drip. Troponins became available later and it was only 17. Patient feels good right now and wants to go home. She is unconcerned about her A-fib as she states that her heart rate is fast all the time. [facility] Medical History Non-rheumatic tricuspid valve insufficiency Paroxysmal atrial fibrillation Acute on chronic diastolic (congestive) heart failure Secondary pulmonary arterial hypertension Essential (primary) hypertension Persistent atrial fibrillation RONALDO (obstructive sleep apnea) Obesity, Class III, BMI 40-49.9 (morbid obesity) Malignant neoplasm of left breast, estrogen receptor positive Type 2 diabetes mellitus Osteoarthritis Migraines Knee pain, chronic Inferior OK Hyperglycemia Epistaxis Home Medications ?Medication ?Instructions ?Recorded ?Last Taken ?Type multivitamin with folic acid 400 1 tab PO DAILY SUPPLE MENT 08/18/17 11/30/18 History mcg tablet omega-3 fatty acids 1,000 mg 2,000 mg PO DAILY supplem ent 09/04/18 11/30/18 History capsule valsartan 160 mg tablet 160 mg PO DAILY heart 11/30/18 History furosemide 40 mg tablet 40 mg PO DAILY #60 tabs 09/06 11/23 Unknown Rx rivaroxaban 20 mg tablet 20 mg PO DAILY 11/03/1811/06 History metoprolol succinate 25 mg 25 mg PO DAILY 03/25/22 Unk nown History tablet,extended release 24 hr metoprolol tartrate 50 mg tablet 50 mg PO DAILY Unknown History Allergy/AdvReac Type Severity Reaction Status Date / Time adhesive Allergy Itching, Verified 04/08/24 12:50 rash, redness allantoin (From Carrasyn Allergy Rash, skin Verified 04/08/24 12:50 Hydrogel Wound Dress) peeling azithromycin Allergy Angioedema Verified 04/08/24 12:50 vitamin A (From Aquasol A) Allergy Rash Verified 04/08/24 12:50 lisinopril AdvReac Other Verified 04/08/24 12:50 Family History Mother Breast cancer Hypertension Grandmother Breast cancer Sister Breast cancer Uterine cancer Sister Breast cancer Aunt Breast cancer Daughter Uterine cancer Sister Breast cancer Sister Kidney disease Sister Diabetes Sister Macular degeneration Brother Colon cancer Diabetes Hypertension Brother , 51yr No problems noted. Surgical History H/O shoulder surgery History of cardioversion (11/30/18) History of tonsillectomy History of tubal ligation History of hysterectomy History of appendectomy History of bilateral knee replacement left axillary lymph node biopsy History of lumpectomy of left breast History of breast biopsy Social History Smoking Status: Never smoker second hand exposure: No alcohol intake: never substance use type: does not use ROS ROS Narrative Does have history of lower extremity edema but since change of her furosemide. All review of systems were negative except as mentioned above in the history of present illness and the other review of systems. Vital Signs Vital Signs Vital Signs: 10/11/24 08:45 10/11/24 08:51 10/11/24 08:57 Temperature 36.7 C Temperature Source Temporal Pulse Rate 125 H Respiratory Rate 22 H 20 H Blood Pressure 153/96 H 153/98 H Blood Pressure Mean 115 Pulse Ox 98 98 Oxygen Delivery Method Room Air Room Air 10/11/24 09:12 10/11/24 09:15 10/11/24 09:30 Temperature Temperature Source Pulse Rate 100 117 H 114 H Respiratory Rate 20 H 16 Blood Pressure 151/115 H 151/105 H 171/121 H Blood Pressure Mean 120 137 Pulse Ox 98 100 Oxygen Delivery Method Room Air 10/11/24 09:54 Temperature 36.9 C Temperature Source Pulse Rate 112 H Respiratory Rate 19 H Blood Pressure 171/121 H Blood Pressure Mean 137 Pulse Ox 100 Oxygen Delivery Method Weight Weight: 96.3 kg Body Mass Index (BMI) 40.1 Physical Exam Narrative - Physical Exam General: Alert, Oriented x3, Cooperative HEENT: Atraumatic, PERRLA, EOMI, Normocephalic Oral: Moist Mucosa, No Gingival or Mucosal Lesions/ Ulcerations Neck: Supple, No JVD, Negative Carotid Bruits Lungs: Clear to auscultation, Normal air movement Cardiovascular: Irregularly irregular Abdomen: Bowel Sounds Present, Soft, Non Tender, Non-Distended, No Hepato-splenomegaly Extremities: No clubbing, No cyanosis, No edema, Capillary Refill Less than 3 Seconds Skin: No rashes, No breakdown Musculoskeletal: No Tenderness to Palpation of Joints or Extremities Neurological: Neuro grossly intact Psych/Mental Status: Normal Affect, Appropriate Results Lab / Micro Data 10/11/24 08:50 10/11/24 08:50 Labs: Laboratory Results - last 24 hr 10/11/24 08:50: WBC 8.1, RBC 4.80, Hgb 14.9, Hct 46.2, MCV 96.3, MCH 31.0, MCHC 32.3, RDW Std Deviation 46.0 H, RDW Coeff of Gold 12.9, Plt Count 290, MPV 10.3, Immature Gran % (Auto) 0.400, Neut % (Auto) 62.4, Lymph % (Auto) 30.4, [place] % (Auto) 5.7, Eos % (Auto) 0.6, Baso % (Auto) 0.5, Absolute Neuts (auto) 5.1, Absolute Lymphs (auto) 2.46, Nucleated RBC % 0, Sodium 143, Potassium 3.8, Chloride 103, Carbon Dioxide 26.7, Anion Gap 14, BUN 27 H, Creatinine 0.92, Estim Creat Clear Calc 51.74, Est GFR (MDRD) Non-Af 63, BUN/Creatinine Ratio 29.1 H, Glucose 170 H, Calcium 9.9, Magnesium 2.4 H, Troponin T High Sens 17 H, NT pro BNP II 1553, TSH 2.520 10/11/24 08:54: PT 23.6 H, INR 2.1 Assessment & Plan Assessment/Plan (1) Atrial fibrillation with RVR: PLAN: Currently improved. Patient did receive digoxin in the emergency room. On her home medication list she takes metoprolol succinate and metoprolol tartrate. Unclear if she is actually taking both of those. Will need to clarify which one she is taking or if those are correct. The meantime patient will be on as needed IV metoprolol for heart rate greater than 160. Patient is already anticoagulated on rivaroxaban continue for now. Check an echocardiogram (2) Chest pain: PLAN: Troponins minimally elevated at 17. Not an actual STEMI despite a STEMI alert being called. Already seen by cardiology. No plans for imminent heart cath at this point in time. Discontinue heparin drip this patient already does take rivaroxaban INR is 2.1. Chest pain may have been induced by her atrial fibrillation with RVR. Be very stable at this time. Will however, continue to check her troponins. PLAN: Plan Hypertension: Continue with valsartan VTE prophylaxis: Not indicated patient is already on oxygen. Charges/Coding Visit Charges Inpatient E&M: 69701 Init Hosp L3 10/11/24 1033 <Electronically signed by Dayanna Miranda DO> Cosigner Signature (if applicable): CC: Dr. Dayanna Miranda DO; Dr. Chip Arreola MD~ Signed [facility] Work Phone: Reason for referral (narrative)* Diagnostic Procedure Only (Routine) - Pending Review Specialty Diagnoses / Procedures Referred By Harper t Referred To Contact XR IMAGING Diagnoses Pain in right hip Procedures XR HIP 2V AP/LAT RIGHT ([place]) RADEX HIP UNILATERAL WITH PELVIS 2-3 VIEWS Martin Mary APRN.MINERALOGY PROFESSOR [address] [facility], [address] [place] [address] Xr Imaging Referral ID Status Reason Start Date Expiration Date Visits Requested Visits Authorized [id number] Pending Review Auto-Generat ed Referral 08/21/2021 09/19/2022 1 1 [facility] for referral (narrative)* Diagnostic Procedure Only (Routine) - Closed Specialty Diagnoses / Procedures Referred By Contac t Referred To Contact XR IMAGING Diagnoses Other closed intra-articular fracture of distal end of right radius, initial encounter Procedures XR WRIST GENERAL 3V PA/LAT/OBL RIGHT RADEX WRIST COMPLETE MINIMUM 3 VIEWS Donald Massey MD [address] [place] [address] Xr Imaging Referral ID Status Reason Start Date Expiration Date V isits Requested Visits Authorized [id number] Closed Auto-Generate d Referral 08/27/2021 09/26/2022 1 1 [facility] for referral (narrative)* Diagnostic Procedure Only (Routine) - Closed Specialty Diagnoses / Procedures Referred By Contac t Referred To Contact XR IMAGING Diagnoses Other closed intra-articular fracture of distal end of right radius, initial encounter Procedures XR WRIST GENERAL 3V PA/LAT/OBL RIGHT RADEX WRIST COMPLETE MINIMUM 3 VIEWS Donald Massey MD [address] [place] [address] Xr Imaging Referral ID Status Reason Start Date Expiration Date V isits Requested Visits Authorized [id number] Closed Auto-Generate d Referral 08/27/2021 09/26/2022 1 1 [facility] for referral (narrative)* Diagnostic Procedure Only (Routine) - Authorized Specialty Diagnoses / Procedures Referred By Contac t Referred To Contact BR IMAGING Diagnoses Malignant neoplasm of left breast in female, estrogen receptor positive, 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 (HCC) Procedures MAHAD SCREENING SCREENING MAMMOGRAPHY BI 2-VIEW BREAST INC CAD Chip Arreola MD [address] [place] [address] Br Imaging [address] [place] [address] Referral ID Status Reason Start Date Expiration Date Visits Requested Visits Authorized [id number] Authorized Auto-Generat ed Referral 10/25/2021 11/24/2022 1 1 [facility] for referral (narrative)* Diagnostic Procedure Only (Routine) - Closed Specialty Diagnoses / Procedures Referred By Contac t Referred To Contact BR IMAGING Diagnoses Malignant neoplasm of left breast in female, estrogen receptor positive, 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 (HCC) Procedures MAHAD SCREENING SCREENING MAMMOGRAPHY BI 2-VIEW BREAST INC CAD [place], Chip Cardenas MD [address] [place] [address] Br Imaging [address] [place] [address] Referral ID Status Reason Start Date Expiration Date V isits Requested Visits Authorized [id number] Closed Auto-Generate d Referral 10/25/2021 11/24/2022 1 1 [facility] for referral (narrative)* Diagnostic Procedure Only (Routine) - Closed Specialty Diagnoses / Procedures Referred By Contac t Referred To Contact XR IMAGING Diagnoses Other closed intra-articular fracture of distal end of right radius, initial encounter Procedures XR WRIST GENERAL 3V PA/LAT/OBL RIGHT RADEX WRIST COMPLETE MINIMUM 3 VIEWS Donald Massey MD [address] [place] [address] Xr Imaging Referral ID Status Reason Start Date Expiration Date V isits Requested Visits Authorized [id number] Closed Auto-Generate d Referral 12/05/2021 01/04/2023 1 1 [facility] for referral (narrative)* Diagnostic Procedure Only (Routine) - Pending Review Specialty Diagnoses / Procedures Referred By Contac t Referred To Contact XR IMAGING Diagnoses Pain in joint of right shoulder Procedures XR SHOULDER GENERAL 3V OR MORE AP/TRUE AP/OTHER RIGHT RADEX SHOULDER COMPLETE MINIMUM 2 VIEWS Dominga Reese, PA-C [address], [place] [address] Xr Imaging Referral ID Status Reason Start Date Expiration Date Visits Requested Visits Authorized [id number] Pending Review Auto-Generat ed Referral 05/14/2022 06/13/2023 1 1 [facility] for referral (narrative)* Diagnostic Procedure Only (Routine) - Closed Specialty Diagnoses / Procedures Referred By Stefanieac t Referred To Contact XR IMAGING Diagnoses Pain in joint of right shoulder Procedures XR SHOULDER GENERAL 3V OR MORE AP/TRUE AP/OTHER RIGHT RADEX SHOULDER COMPLETE MINIMUM 2 VIEWS Dominga Reese PA-C [address] [place] [address] Xr Imaging Referral ID Status Reason Start Date Expiration Date V isits Requested Visits Authorized [id number] Closed Auto-Generate d Referral 05/14/2022 06/13/2023 1 1 [facility] for referral (narrative)* Diagnostic Procedure Only (Routine) - Closed Specialty Diagnoses / Procedures Referred By Harper t Referred To Contact BR IMAGING Diagnoses Screening breast examination Procedures MAHAD SCREENING SCREENING MAMMOGRAPHY BI 2-VIEW BREAST INC CAD Chip Arreola MD [address] [place] [address] Br Imaging [address] [place] [address] Referral ID Status Reason Start Date Expiration Date V isits Requested Visits Authorized [id number] Closed Auto-Generate d Referral 10/16/2022 11/15/2023 1 1 [facility] for referral (narrative)* Outpatient Procedure (Routine) - Authorized Specialty Diagnoses / Procedures Referred By Harper t Referred To [facility] Diagnoses Persistent atrial fibrillation (HCC) H/O mitral valve disease Procedures ECHO ECHO TTHRC R-T 2D W/WOM-MODE COMPL SPEC&COLR D Anuj Navarro MD [address] [place] [address] [facility] [address] [address] Referral ID Status Reason Start Date Expiration Date Visits Requested Visits Authorized [id number] Authorized Auto-Generat ed Referral 07/07/2023 02/24/2024 1 1 [facility] for referral (narrative)* Outpatient Procedure (Urgent) - Pending Review Specialty Diagnoses / Procedures Referred By Harper t Referred To Contact [facility] [place] Diagnoses Pain of left lower extremity Procedures US LEG VEIN DVT UNL VAS LAB DUP-SCAN XTR VEINS UNILATERAL/LIMITED STUDY Chip Arreola MD [address] [place] [address] [address] Referral ID Status Reason Start Date Expiration Date Visits Requested Visits Authorized [id number] Pending Review Auto-Generat ed Referral 03/12/2023 03/11/2024 1 1 * Diagnostic Procedure Only (Routine) - Closed Specialty Diagnoses / Procedures Referred By Harper t Referred To Contact XR IMAGING Diagnoses Pain of left lower extremity Procedures XR ANKLE GENERAL 3V AP/LAT/OBL LEFT RADEX ANKLE COMPLETE MINIMUM 3 VIEWS Chip Arreola MD [address] [place] [address] [place] [address] Referral ID Status Reason Start Date Expiration Date V isits Requested Visits Authorized [id number] Closed Auto-Generate d Referral 03/12/2023 04/10/2024 1 1 [facility] for referral (narrative)* Diagnostic Procedure Only (Routine) - New Request Specialty Diagnoses / Procedures Referred By Harper davis Referred To Contact BR IMAGING Diagnoses Encounter for screening mammogram for malignant neoplasm of breast Procedures MAHAD SCREENING SCREENING MAMMOGRAPHY BI 2-VIEW BREAST INC CAD Chip Arreola MD [address] [place] [address] Br Imaging [address] [place] [address] Referral ID Status Reason Start Date Expiration Date Visits Requested Visits Authorized [id number] New Request Auto-Generat ed Referral 11/04/2023 12/03/2024 1 1 [facility] for referral (narrative)* Diagnostic Procedure Only (Routine) - Closed Specialty Diagnoses / Procedures Referred By Contac t Referred To Contact XR IMAGING Diagnoses Pain of left lower extremity Procedures XR ANKLE GENERAL 3V AP/LAT/OBL LEFT RADEX ANKLE COMPLETE MINIMUM 3 VIEWS Chip Arreola MD [address] [place] [address] [place] [address] Referral ID Status Reason Start Date Expiration Date V isits Requested Visits Authorized [id number] Closed Auto-Generate d Referral 03/12/2023 04/10/2024 1 1 [facility] for referral (narrative)* Diagnostic Procedure Only (Urgent) - Closed Specialty Diagnoses / Procedures Referred By Contac t Referred To Contact XR IMAGING Diagnoses Acute pain of right wrist Procedures XR WRIST INJURY 4V PA/LAT/OBL/SCAPH RIGHT RADEX WRIST COMPLETE MINIMUM 3 VIEWS Jaleel Cerda MD [address] [place] [address] [place] [address] Referral ID Status Reason Start Date Expiration Date V isits Requested Visits Authorized [id number] Closed Auto-Generate d Referral 08/22/2021 09/21/2022 1 1 [facility] for referral (narrative)No reason for referral [facility] Work Phone: Reason for visit Narrative* Diagnostic Procedure Only (Routine) - Closed Specialty Diagnoses / Procedures Referred By Contac t Referred To Contact XR IMAGING Diagnoses Other closed intra-articular fracture of distal end of right radius, initial encounter Procedures XR WRIST GENERAL 3V PA/LAT/OBL RIGHT RADEX WRIST COMPLETE MINIMUM 3 VIEWS Donald Massey MD [address] [place] [address] Xr Imaging Referral ID Status Reason Start Date Expiration Date V isits Requested Visits Authorized [id number] Closed Auto-Generate d Referral 08/27/2021 09/26/2022 1 1 [facility] for visit Narrative* Diagnostic Procedure Only (Routine) - Closed Specialty Diagnoses / Procedures Referred By Contac t Referred To Contact BR IMAGING Diagnoses Malignant neoplasm of left breast in female, estrogen receptor positive, 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 (HCC) Procedures MAHAD SCREENING SCREENING MAMMOGRAPHY BI 2-VIEW BREAST INC Chip Moore MD [address] [place] [address] Br Imaging [address] [place] [address] Referral ID Status Reason Start Date Expiration Date V isits Requested Visits Authorized [id number] Closed Auto-Generate d Referral 10/25/2021 11/24/2022 1 1 [facility] for visit Narrative* Diagnostic Procedure Only (Routine) - Closed Specialty Diagnoses / Procedures Referred By Contac t Referred To Contact XR IMAGING Diagnoses Other closed intra-articular fracture of distal end of right radius, initial encounter Procedures XR WRIST GENERAL 3V PA/LAT/OBL RIGHT RADEX WRIST COMPLETE MINIMUM 3 VIEWS Donald Massey MD [address] [place] [address] Xr Imaging Referral ID Status Reason Start Date Expiration Date V isits Requested Visits Authorized [id number] Closed Auto-Generate d Referral 12/05/2021 01/04/2023 1 1 [facility] for visit Narrative* Diagnostic Procedure Only (Routine) - Closed Specialty Diagnoses / Procedures Referred By Contac t Referred To Contact BR IMAGING Diagnoses Screening breast examination Procedures MAHAD SCREENING SCREENING MAMMOGRAPHY BI 2-VIEW BREAST INC Chip Moore MD [address] [place] [address] Br Imaging [address] [place] [address] Referral ID Status Reason Start Date Expiration Date V isits Requested Visits Authorized [id number] Closed Auto-Generate d Referral 10/16/2022 11/15/2023 1 1 [facility] for visit Narrative* Diagnostic Procedure Only (Routine) - Closed Specialty Diagnoses / Procedures Referred By Contac t Referred To Contact BR IMAGING Diagnoses Encounter for screening mammogram for malignant neoplasm of breast Procedures MAHDA SCREENING SCREENING MAMMOGRAPHY BI 2-VIEW BREAST INC CAD Chip Arreola MD [address] [place] [address] Br Imaging [address] [place] [address] Referral ID Status Reason Start Date Expiration Date V isits Requested Visits Authorized [id number] Closed Auto-Generate d Referral 11/04/2023 12/03/2024 1 1 [facility] for visit Narrative* Diagnostic Procedure Only (Routine) - Closed Specialty Diagnoses / Procedures Referred By Contac t Referred To Contact XR IMAGING Diagnoses Pain of left lower extremity Procedures XR ANKLE GENERAL 3V AP/LAT/OBL LEFT RADEX ANKLE COMPLETE MINIMUM 3 VIEWS Chip Arreola MD [address] [place] [address] [place] [address] Referral ID Status Reason Start Date Expiration Date V isits Requested Visits Authorized [id number] Closed Auto-Generate d Referral 03/12/2023 04/10/2024 1 1 [facility] for visit Narrative* Diagnostic Procedure Only (Urgent) - Closed Specialty Diagnoses / Procedures Referred By Contac t Referred To Contact XR IMAGING Diagnoses Acute pain of right wrist Procedures XR WRIST INJURY 4V PA/LAT/OBL/SCAPH RIGHT RADEX WRIST COMPLETE MINIMUM 3 VIEWS Jaleel Cerda MD [address] [place] [address] [place] [address] Referral ID Status Reason Start Date Expiration Date V isits Requested Visits Authorized [id number] Closed Auto-Generate d Referral 08/22/2021 09/21/2022 1 1 [facility] for visit Narrative* Diagnostic Procedure Only (Routine) - Closed Specialty Diagnoses / Procedures Referred By Contac t Referred To Contact XR IMAGING Diagnoses DDD (degenerative disc disease), thoracic Procedures XR THORACIC GENERAL 3V AP/LAT/SWIMMERS RADEX SPINE THORACIC 3 VIEWS Belkys Mcintyre FITNESS CONSULTANT.MINERALOGY PROFESSOR [address] [place] [address] Xr Imaging [place] [address] Referral ID Status Reason Start Date Expiration Date V isits Requested Visits Authorized [id number] Closed Auto-Generate d Referral 03/09/2024 04/08/2025 1 1 [facility] for visit Narrative* Diagnostic Procedure Only (Routine) - Closed Specialty Diagnoses / Procedures Referred By Harper davis Referred To Contact XR IMAGING Diagnoses Pain of right hip Procedures XR HIP GENERAL 3V PELV/AP/LAT RIGHT RADEX HIP UNILATERAL WITH PELVIS 2-3 VIEWS Belkys Mcintyre APRN.MINERALOGY PROFESSOR [address] [place] [address] Phone: tel: fax: XR IMAGING [place] [address] Referral ID Status Reason Start Date Expiration Date V isits Requested Visits Authorized [id number] Closed Auto-Generate d Referral 05/27/2024 06/26/2025 1 1 [facility] for visit Narrative* Diagnostic Procedure Only (Routine) - Closed Specialty Diagnoses / Procedures Referred By Harper davis Referred To Contact XR IMAGING Diagnoses Rotator cuff tear arthropathy, left Procedures XR SHOULDER GENERAL 3V OR MORE AP/TRUE AP/OTHER LEFT RADEX SHOULDER COMPLETE MINIMUM 2 VIEWS Dayanna Lewis MD [address] [place] [id number] Phone: tel: fax: XR IMAGING [place] [address] Referral ID Status Reason Start Date Expiration Date V isits Requested Visits Authorized [id number] Closed Auto-Generate d Referral 06/14/2024 07/14/2025 1 1 [facility] Summary Purpose Family History Relationship Condition Age at Onset Recorded Date/T pretty mother Malignant neoplasm of breast Unknown grandmother Malignant neoplasm of breast Unknown sister Malignant neoplasm of breast Unknown Malignant neoplasm of uterus Unknown aunt Malignant neoplasm of breast Unknown daughter Malignant neoplasm of uterus Unknown Relationship Condition Age at Onset Recorded Date/T pretty mother Malignant neoplasm of breast Unknown Hypertension Unknown grandmother Malignant neoplasm of breast Unknown sister Malignant neoplasm of breast Unknown Malignant neoplasm of uterus Unknown aunt Malignant neoplasm of breast Unknown daughter Malignant neoplasm of uterus Unknown sister Kidney disorder Unknown sister Diabetes mellitus Unknown sister Macular degeneration Unknown brother Malignant neoplasm of colon Unknown Diabetes mellitus Unknown Advance Directives Documents on File Type Date Recorded Patient Manager Of Allied Health Services Expl anation Advance Directive(s) Advance Directive(s) 03/04/2020 5:29 PM Advance Directive(s) 10/07/2018 7:10 PM Advance Directive(s) 02/25/2018 10:40 AM Latest Code Status on File Code Status Date Activated Date Inactivated Comments Full Code 03/10/2020 12:04 PM Documents on File Type Date Recorded Patient Manager Of Allied Health Services Expl anation Advance Directive(s) Advance Directive(s) 03/04/2020 5:29 PM Advance Directive(s) 10/07/2018 7:10 PM Advance Directive(s) 02/25/2018 10:40 AM Latest Code Status on File Code Status Date Activated Date Inactivated Comments Full Code 03/10/2020 12:04 PM Latest Code Status on File Code Status Date Activated Date Inactivated Comments Full Code 03/10/2020 12:04 PM Latest Code Status on File Code Status Date Activated Date Inactivated Comments Full Code 03/10/2020 12:04 PM Advance Directive Response Recorded Date/ Time Advance Directives Yes November 30, 2018 10:07am Living Will Yes November 30, 9 10:07am Power of Diesel Dragline Operator Yes November 30, 2 019 10:07am Date Activated Date Inactivated Comments 03/10/2020 12:04 PM Date Activated Date Inactivated Comments 03/10/2020 12:04 PM Advance Directive Response Recorded Date/ Time Do you have a Healthcare Pow er of Diesel Dragline Operator? Yes October 11, 2024 11:25am Name of Medical Power of Diesel Dragline Operator Dmitry Carmichael - peterson October 11, 2024 11:25am Advance Directives Yes November 30, 2018 11:07am Reason for Referral Specialty Diagnoses / Procedures Referred By Contac t Referred To Contact Orthopedics Diagnoses Other closed intra-articular fracture of distal end of right radius, initial encounter Procedures CONSULT TO ORTHOPAEDICS OFFICE/OUTPATIENT [facility] 60-74 MINUTES Jaleel Cerda MD [address] [place] [address] Referral ID Status Reason Start Date Expiration Date Visits Requested Visits Authorized [id number] Authorized PCP Requested Referral 08/22/2021 08/22/2022 1 1 Specialty Diagnoses / Procedures Referred By Contac t Referred To Contact XR IMAGING Diagnoses Acute pain of right wrist Procedures XR WRIST INJURY 4V PA/LAT/OBL/SCAPH RIGHT RADEX WRIST COMPLETE MINIMUM 3 VIEWS Jaleel Cerda MD [address] [place] [address] Xr Imaging Referral ID Status Reason Start Date Expiration Date V isits Requested Visits Authorized [id number] Closed Auto-Generate d Referral 08/22/2021 09/21/2022 1 1 Specialty Diagnoses / Procedures Referred By Contac t Referred To Contact MR IMAGING Diagnoses Closed fracture of right wrist with routine healing, subsequent encounter Procedures MRI WRIST WO IVCON RT MRI ANY JT UPPER EXTREMITY W/O CONTRAST MATRL Donald Massey MD [address] [place] [address] Mr Imaging Referral ID Status Reason Start Date Expiration Date Visits Requested Visits Authorized [id number] Pending Review Auto-Generat ed Referral 12/31/2021 01/30/2023 1 1 Specialty Diagnoses / Procedures Referred By Contac t Referred To Contact [facility] Diagnoses Falls frequently Procedures CONSULT TO PHYSICAL THERAPY PHYSICAL THERAPY EVALUATION HIGH COMPLEX 45 MINS Belkys Mcintyre APRN.MINERALOGY PROFESSOR [address] [place] [address] [facility] [address] [place] [address] Referral ID Status Reason Start Date Expiration Date Visits Requested Visits Authorized [id number] Authorized Auto-Generat ed Referral 04/07/2023 04/06/2024 99 99 Specialty Diagnoses / Procedures Referred By Contac t Referred To Contact XR IMAGING Diagnoses DDD (degenerative disc disease), thoracic Procedures XR THORACIC GENERAL 3V AP/LAT/SWIMMERS RADEX SPINE THORACIC 3 VIEWS Belkys Mcintyre APRN.MINERALOGY PROFESSOR [address] [place] [address] [place] [address] Referral ID Status Reason Start Date Expiration Date V isits Requested Visits Authorized [id number] Closed Auto-Generate d Referral 03/09/2024 04/08/2025 1 1 Specialty Diagnoses / Procedures Referred By Contac t Referred To Contact XR IMAGING Diagnoses Low back pain, unspecified back pain laterality, unspecified chronicity, unspecified whether sciatica present Procedures XR LUMBAR GENERAL 3V AP/LAT/L5-S1 RADEX SPINE LUMBOSACRAL 2/3 VIEWS Belkys Mcintyre APRN.MINERALOGY PROFESSOR [address] [place] [address] [place] [address] Referral ID Status Reason Start Date Expiration Date V isits Requested Visits Authorized [id number] Closed Auto-Generate d Referral 03/09/2024 04/08/2025 1 1 Chief Complaint and Reason for Visit Chief Complaint LEFT LEG R/O DVT Chief Complaint Admit Date stemi October 11, 2024 9:12a m stemi October 11, 2024 10:26 am Reason for Visit Admit Date Chest pain October 11, 2024 9:12a m Atrial fibrillation with RVR October 11 9:12am Additional Source Comments INFORMATION SOURCE (unrecogn ized section and content) DATE CREATED AUTHOR 02/16/2021 [facility] DATE CREATED AUTHOR AUTHOR'S ORGANIZ ATION 04/14/2022 [facility] DATE CREATED AUTHOR AUTHOR'S ORGANIZ ATION 04/17/2024 [facility] DATE CREATED AUTHOR AUTHOR'S ORGANIZ ATION 10/09/2024 [facility] Source Comments (unrecognize d section and content) In the event this informatio n is protected by the Federal Confidentiality of Alcohol and Drug Abuse Patient Records regulations: The Federal rules restrict any use of the information to criminally investigate or prosecute any alcohol or drug abuse patient.[facility] the event this information is protected by the Federal Confidentiality of Alcohol and Drug Abuse Patient Records regulations: The Federal rules restrict any use of the information to criminally investigate or prosecute any alcohol or drug abuse patient.[facility] Hospital[facility] the event this information is protected by the Federal Confidentiality of Alcohol and Drug Abuse Patient Records regulations: The Federal rules restrict any use of the information to criminally investigate or prosecute any alcohol or drug abuse patient.[facility] the event this information is protected by the Federal Confidentiality of Alcohol and Drug Abuse Patient Records regulations: The Federal rules restrict any use of the information to criminally investigate or prosecute any alcohol or drug abuse patient.[facility] HospitalIn the event this information is protected by the Federal Confidentiality of Alcohol and Drug Abuse Patient Records regulations: The Federal rules restrict any use of the information to criminally investigate or prosecute any alcohol or drug abuse patient.[facility] Hospital[facility] the event this information is protected by the Federal Confidentiality of Alcohol and Drug Abuse Patient Records regulations: The Federal rules restrict any use of the information to criminally investigate or prosecute any alcohol or drug abuse patient.[facility] HospitalIn the event this information is protected by the Federal Confidentiality of Alcohol and Drug Abuse Patient Records regulations: The Federal rules restrict any use of the information to criminally investigate or prosecute any alcohol or drug abuse patient.[facility] Hospital[facility] the event this information is protected by the Federal Confidentiality of Alcohol and Drug Abuse Patient Records regulations: The Federal rules restrict any use of the information to criminally investigate or prosecute any alcohol or drug abuse patient.[facility] HospitalIn the event this information is protected by the Federal Confidentiality of Alcohol and Drug Abuse Patient Records regulations: The Federal rules restrict any use of the information to criminally investigate or prosecute any alcohol or drug abuse patient.[facility] Hospital[facility] the event this information is protected by the Federal Confidentiality of Alcohol and Drug Abuse Patient Records regulations: The Federal rules restrict any use of the information to criminally investigate or prosecute any alcohol or drug abuse patient.[facility] HospitalIn the event this information is protected by the Federal Confidentiality of Alcohol and Drug Abuse Patient Records regulations: The Federal rules restrict any use of the information to criminally investigate or prosecute any alcohol or drug abuse patient.[facility] HospitalIn the event this information is protected by the Federal Confidentiality of Alcohol and Drug Abuse Patient Records regulations: The Federal rules restrict any use of the information to criminally investigate or prosecute any alcohol or drug abuse patient.[facility] HospitalIn the event this information is protected by the Federal Confidentiality of Alcohol and Drug Abuse Patient Records regulations: The Federal rules restrict any use of the information to criminally investigate or prosecute any alcohol or drug abuse patient.[facility] HospitalIn the event this information is protected by the Federal Confidentiality of Alcohol and Drug Abuse Patient Records regulations: The Federal rules restrict any use of the information to criminally investigate or prosecute any alcohol or drug abuse patient.[facility] HospitalIn the event this information is protected by the Federal Confidentiality of Alcohol and Drug Abuse Patient Records regulations: The Federal rules restrict any use of the information to criminally investigate or prosecute any alcohol or drug abuse patient.[facility] HospitalIn the event this information is protected by the Federal Confidentiality of Alcohol and Drug Abuse Patient Records regulations: The Federal rules restrict any use of the information to criminally investigate or prosecute any alcohol or drug abuse patient.[facility] HospitalIn the event this information is protected by the Federal Confidentiality of Alcohol and Drug Abuse Patient Records regulations: The Federal rules restrict any use of the information to criminally investigate or prosecute any alcohol or drug abuse patient.[facility] HospitalIn the event this information is protected by the Federal Confidentiality of Alcohol and Drug Abuse Patient Records regulations: The Federal rules restrict any use of the information to criminally investigate or prosecute any alcohol or drug abuse patient.[facility] HospitalIn the event this information is protected by the Federal Confidentiality of Alcohol and Drug Abuse Patient Records regulations: The Federal rules restrict any use of the information to criminally investigate or prosecute any alcohol or drug abuse patient.[facility] HospitalIn the event this information is protected by the Federal Confidentiality of Alcohol and Drug Abuse Patient Records regulations: The Federal rules restrict any use of the information to criminally investigate or prosecute any alcohol or drug abuse patient.[facility] HospitalIn the event this information is protected by the Federal Confidentiality of Alcohol and Drug Abuse Patient Records regulations: The Federal rules restrict any use of the information to criminally investigate or prosecute any alcohol or drug abuse patient.[facility] HospitalIn the event this information is protected by the Federal Confidentiality of Alcohol and Drug Abuse Patient Records regulations: The Federal rules restrict any use of the information to criminally investigate or prosecute any alcohol or drug abuse patient.[facility] HospitalIn the event this information is protected by the Federal Confidentiality of Alcohol and Drug Abuse Patient Records regulations: The Federal rules restrict any use of the information to criminally investigate or prosecute any alcohol or drug abuse patient.[facility] HospitalIn the event this information is protected by the Federal Confidentiality of Alcohol and Drug Abuse Patient Records regulations: The Federal rules restrict any use of the information to criminally investigate or prosecute any alcohol or drug abuse patient.[facility] HospitalIn the event this information is protected by the Federal Confidentiality of Alcohol and Drug Abuse Patient Records regulations: The Federal rules restrict any use of the information to criminally investigate or prosecute any alcohol or drug abuse patient.[facility] HospitalIn the event this information is protected by the Federal Confidentiality of Alcohol and Drug Abuse Patient Records regulations: The Federal rules restrict any use of the information to criminally investigate or prosecute any alcohol or drug abuse patient.[facility] HospitalIn the event this information is protected by the Federal Confidentiality of Alcohol and Drug Abuse Patient Records regulations: The Federal rules restrict any use of the information to criminally investigate or prosecute any alcohol or drug abuse patient.[facility] HospitalIn the event this information is protected by the Federal Confidentiality of Alcohol and Drug Abuse Patient Records regulations: The Federal rules restrict any use of the information to criminally investigate or prosecute any alcohol or drug abuse patient.[facility] HospitalIn the event this information is protected by the Federal Confidentiality of Alcohol and Drug Abuse Patient Records regulations: The Federal rules restrict any use of the information to criminally investigate or prosecute any alcohol or drug abuse patient.[facility] HospitalIn the event this information is protected by the Federal Confidentiality of Alcohol and Drug Abuse Patient Records regulations: The Federal rules restrict any use of the information to criminally investigate or prosecute any alcohol or drug abuse patient.[facility] HospitalIn the event this information is protected by the Federal Confidentiality of Alcohol and Drug Abuse Patient Records regulations: The Federal rules restrict any use of the information to criminally investigate or prosecute any alcohol or drug abuse patient.[facility] HospitalIn the event this information is protected by the Federal Confidentiality of Alcohol and Drug Abuse Patient Records regulations: The Federal rules restrict any use of the information to criminally investigate or prosecute any alcohol or drug abuse patient.[facility] HospitalIn the event this information is protected by the Federal Confidentiality of Alcohol and Drug Abuse Patient Records regulations: The Federal rules restrict any use of the information to criminally investigate or prosecute any alcohol or drug abuse patient.[facility] HospitalIn the event this information is protected by the Federal Confidentiality of Alcohol and Drug Abuse Patient Records regulations: The Federal rules restrict any use of the information to criminally investigate or prosecute any alcohol or drug abuse patient.[facility] HospitalIn the event this information is protected by the Federal Confidentiality of Alcohol and Drug Abuse Patient Records regulations: The Federal rules restrict any use of the information to criminally investigate or prosecute any alcohol or drug abuse patient.[facility] HospitalIn the event this information is protected by the Federal Confidentiality of Alcohol and Drug Abuse Patient Records regulations: The Federal rules restrict any use of the information to criminally investigate or prosecute any alcohol or drug abuse patient.[facility] HospitalIn the event this information is protected by the Federal Confidentiality of Alcohol and Drug Abuse Patient Records regulations: The Federal rules restrict any use of the information to criminally investigate or prosecute any alcohol or drug abuse patient.[facility] HospitalIn the event this information is protected by the Federal Confidentiality of Alcohol and Drug Abuse Patient Records regulations: The Federal rules restrict any use of the information to criminally investigate or prosecute any alcohol or drug abuse patient.[facility] HospitalIn the event this information is protected by the Federal Confidentiality of Alcohol and Drug Abuse Patient Records regulations: The Federal rules restrict any use of the information to criminally investigate or prosecute any alcohol or drug abuse patient.[facility] HospitalIn the event this information is protected by the Federal Confidentiality of Alcohol and Drug Abuse Patient Records regulations: The Federal rules restrict any use of the information to criminally investigate or prosecute any alcohol or drug abuse patient.[facility] HospitalIn the event this information is protected by the Federal Confidentiality of Alcohol and Drug Abuse Patient Records regulations: The Federal rules restrict any use of the information to criminally investigate or prosecute any alcohol or drug abuse patient.[facility] HospitalIn the event this information is protected by the Federal Confidentiality of Alcohol and Drug Abuse Patient Records regulations: The Federal rules restrict any use of the information to criminally investigate or prosecute any alcohol or drug abuse patient.[facility] HospitalIn the event this information is protected by the Federal Confidentiality of Alcohol and Drug Abuse Patient Records regulations: The Federal rules restrict any use of the information to criminally investigate or prosecute any alcohol or drug abuse patient.[facility] HospitalIn the event this information is protected by the Federal Confidentiality of Alcohol and Drug Abuse Patient Records regulations: The Federal rules restrict any use of the information to criminally investigate or prosecute any alcohol or drug abuse patient.[facility] HospitalIn the event this information is protected by the Federal Confidentiality of Alcohol and Drug Abuse Patient Records regulations: The Federal rules restrict any use of the information to criminally investigate or prosecute any alcohol or drug abuse patient.[facility] HospitalIn the event this information is protected by the Federal Confidentiality of Alcohol and Drug Abuse Patient Records regulations: The Federal rules restrict any use of the information to criminally investigate or prosecute any alcohol or drug abuse patient.[facility] HospitalIn the event this information is protected by the Federal Confidentiality of Alcohol and Drug Abuse Patient Records regulations: The Federal rules restrict any use of the information to criminally investigate or prosecute any alcohol or drug abuse patient.[facility] HospitalIn the event this information is protected by the Federal Confidentiality of Alcohol and Drug Abuse Patient Records regulations: The Federal rules restrict any use of the information to criminally investigate or prosecute any alcohol or drug abuse patient.[facility] HospitalIn the event this information is protected by the Federal Confidentiality of Alcohol and Drug Abuse Patient Records regulations: The Federal rules restrict any use of the information to criminally investigate or prosecute any alcohol or drug abuse patient.[facility] HospitalIn the event this information is protected by the Federal Confidentiality of Alcohol and Drug Abuse Patient Records regulations: The Federal rules restrict any use of the information to criminally investigate or prosecute any alcohol or drug abuse patient.[facility] HospitalIn the event this information is protected by the Federal Confidentiality of Alcohol and Drug Abuse Patient Records regulations: The Federal rules restrict any use of the information to criminally investigate or prosecute any alcohol or drug abuse patient.[facility] HospitalIn the event this information is protected by the Federal Confidentiality of Alcohol and Drug Abuse Patient Records regulations: The Federal rules restrict any use of the information to criminally investigate or prosecute any alcohol or drug abuse patient.[facility] HospitalIn the event this information is protected by the Federal Confidentiality of Alcohol and Drug Abuse Patient Records regulations: The Federal rules restrict any use of the information to criminally investigate or prosecute any alcohol or drug abuse patient.[facility] HospitalIn the event this information is protected by the Federal Confidentiality of Alcohol and Drug Abuse Patient Records regulations: The Federal rules restrict any use of the information to criminally investigate or prosecute any alcohol or drug abuse patient.[facility] HospitalIn the event this information is protected by the Federal Confidentiality of Alcohol and Drug Abuse Patient Records regulations: The Federal rules restrict any use of the information to criminally investigate or prosecute any alcohol or drug abuse patient.[facility] HospitalIn the event this information is protected by the Federal Confidentiality of Alcohol and Drug Abuse Patient Records regulations: The Federal rules restrict any use of the information to criminally investigate or prosecute any alcohol or drug abuse patient.[facility] HospitalIn the event this information is protected by the Federal Confidentiality of Alcohol and Drug Abuse Patient Records regulations: The Federal rules restrict any use of the information to criminally investigate or prosecute any alcohol or drug abuse patient.[facility] HospitalIn the event this information is protected by the Federal Confidentiality of Alcohol and Drug Abuse Patient Records regulations: The Federal rules restrict any use of the information to criminally investigate or prosecute any alcohol or drug abuse patient.[facility] HospitalIn the event this information is protected by the Federal Confidentiality of Alcohol and Drug Abuse Patient Records regulations: The Federal rules restrict any use of the information to criminally investigate or prosecute any alcohol or drug abuse patient.[facility] HospitalIn the event this information is protected by the Federal Confidentiality of Alcohol and Drug Abuse Patient Records regulations: The Federal rules restrict any use of the information to criminally investigate or prosecute any alcohol or drug abuse patient.[facility] HospitalIn the event this information is protected by the Federal Confidentiality of Alcohol and Drug Abuse Patient Records regulations: The Federal rules restrict any use of the information to criminally investigate or prosecute any alcohol or drug abuse patient.[facility] HospitalIn the event this information is protected by the Federal Confidentiality of Alcohol and Drug Abuse Patient Records regulations: The Federal rules restrict any use of the information to criminally investigate or prosecute any alcohol or drug abuse patient.[facility] HospitalIn the event this information is protected by the Federal Confidentiality of Alcohol and Drug Abuse Patient Records regulations: The Federal rules restrict any use of the information to criminally investigate or prosecute any alcohol or drug abuse patient.[facility] HospitalIn the event this information is protected by the Federal Confidentiality of Alcohol and Drug Abuse Patient Records regulations: The Federal rules restrict any use of the information to criminally investigate or prosecute any alcohol or drug abuse patient.[facility] HospitalIn the event this information is protected by the Federal Confidentiality of Alcohol and Drug Abuse Patient Records regulations: The Federal rules restrict any use of the information to criminally investigate or prosecute any alcohol or drug abuse patient.[facility] HospitalIn the event this information is protected by the Federal Confidentiality of Alcohol and Drug Abuse Patient Records regulations: The Federal rules restrict any use of the information to criminally investigate or prosecute any alcohol or drug abuse patient.[facility] HospitalIn the event this information is protected by the Federal Confidentiality of Alcohol and Drug Abuse Patient Records regulations: The Federal rules restrict any use of the information to criminally investigate or prosecute any alcohol or drug abuse patient.[facility] HospitalIn the event this information is protected by the Federal Confidentiality of Alcohol and Drug Abuse Patient Records regulations: The Federal rules restrict any use of the information to criminally investigate or prosecute any alcohol or drug abuse patient.[facility] HospitalIn the event this information is protected by the Federal Confidentiality of Alcohol and Drug Abuse Patient Records regulations: The Federal rules restrict any use of the information to criminally investigate or prosecute any alcohol or drug abuse patient.[facility] HospitalIn the event this information is protected by the Federal Confidentiality of Alcohol and Drug Abuse Patient Records regulations: The Federal rules restrict any use of the information to criminally investigate or prosecute any alcohol or drug abuse patient.[facility] HospitalIn the event this information is protected by the Federal Confidentiality of Alcohol and Drug Abuse Patient Records regulations: The Federal rules restrict any use of the information to criminally investigate or prosecute any alcohol or drug abuse patient.[facility] Care Teams (unrecognized sec tion and content) Rn Medical Surgical Relationship Specialty Start Date End Date Chip Arreola MD [address] [place], [place] [id number] PCP - General Family Practice 03/21/16 Inocente Romero [address] [facility] [address] [place] [id number] [facility] 09/09/17 Antonio Cagle MD, PhD [address] [place], [place] [id number] Primary Staff Physician Cardiology 06/23/18 David Galo MD [address] [place] [address] Consulting Infectious Diseases 03/08/20 Dayanna Lewis MD [address] [place] [address] Consulting Orthopedics 03/08/20 Chip Arreola MD [address] [place], [place] [id number] Home Care Physician Family Practice 03/08/20 Dayanna Lewis MD [address] [place], [place] [id number] Referring Orthopedics 03/09/20 Bridgett Guzman, RN [address] [place] [address] Public Speaking Coach Post Acute Care 03/09/20 Rn Medical Surgical Relationship Specialty Start Date End Date Chip Arreola MD [address] [place], [place] [id number] PCP - General Family Practice 03/21/16 Nick, [place] S [address] [address] [facility] 09/09/17 Antonio Cagle MD, PhD [address] [place] [address] Primary Staff Physician Cardiology 06/23/18 David Galo MD [address] [place] [address] Consulting Infectious Diseases 03/08/20 Dayanna Lewis MD [address] [place] [address] Consulting Orthopedics 03/08/20 Chip Arreola MD [address] [place] [address] Home Care Physician Family Practice 03/08/20 Dayanna Lewis MD [address] [place] [address] Referring Orthopedics 03/09/20 Bridgett Guzman RN [address] [place] [address] Public Speaking Coach Post Acute Care 03/09/20 Rn Medical Surgical Relationship Specialty Start Date End Date Chip Arreola MD [address] [place] [address] PCP - General Family Practice 03/21/16 NickDanny ohril S [address] [address] [facility] 09/09/17 Antonio Cagle MD, PhD [address] [address] Primary Staff Physician Cardiology 06/23/18 David Galo MD [address] [place] [address] Consulting Infectious Diseases 03/08/20 Dayanna Lewis MD [address] [place] [address] Consulting Orthopedics 03/08/20 Chip Arreola MD [address] [place], [place] [id number] Home Care Physician Family Practice 03/08/20 Dayanna Lewis MD [address] [place] [address] Referring Orthopedics 03/09/20 Bridgett Guzman RN [address] [place], [place] [id number] Public Speaking Coach Post Acute Care 03/09/20 Rn Medical Surgical Relationship Specialty Start Date End Date Chip Arreola MD [address] [place], [place] [id number] PCP - General Family Practice 03/21/16 Inocente Romero [address] [address] [facility] 09/09/17 Antonio Cagle MD, PhD [address] [place] [address] Primary Staff Physician Cardiology 06/23/18 David Galo MD [address] [place] [address] Consulting Infectious Diseases 03/08/20 Dayanna Lewis MD [address] [place] [address] Consulting Orthopedics 03/08/20 Chip Arreola MD [address] [place], [place] [id number] Home Care Physician Family Practice 03/08/20 Dayanna Lewis MD [address] [place] [address] Referring Orthopedics 03/09/20 Bridgett Guzman, RN [address] [place], [place] [phone] Public Speaking Coach Post Acute Care 03/09/20 Rn Medical Surgical Relationship Specialty Start Date End Date Chip Arreola MD [address] [place], [place] [id number] PCP - General Family Practice 03/21/16 Inocente Romero [address] [address] [facility] 09/09/17 Antonio Cagle MD, PhD [address] [place] [address] Primary Staff Physician Cardiology 06/23/18 David Galo MD [address] [place] [address] Consulting Infectious Diseases 03/08/20 Dayanna Lewis MD [address] [place] [address] Consulting Orthopedics 03/08/20 Chip Arreola MD [address] [place] [address] Home Care Physician Family Practice 03/08/20 Dayanna Lewis MD [address] [place] [address] Referring Orthopedics 03/09/20 Bridgett Guzman RN [address] [place] [address] Public Speaking Coach Post Acute Care 03/09/20 Rn Medical Surgical Relationship Specialty Start Date End Date Chip Arreola MD [address] [place] [address] PCP - General Family Practice 03/21/16 Inocente Romero [address] [place] [address] [place] [address] [facility] 09/09/17 Antonio Cagle MD, PhD [address] [place] [address] Primary Staff Physician Cardiology 06/23/18 David Galo MD [address] [place] [address] Consulting Infectious Diseases 03/08/20 Dayanna Lewis MD [address] [place] [address] Consulting Orthopedics 03/08/20 Chip Arreola MD [address] [place] [address] Home Care Physician Family Practice 03/08/20 Dayanna Lewis MD [address] [place] [address] Referring Orthopedics 03/09/20 Bridgett Guzman RN [address] [place] [address] Public Speaking Coach Post Acute Care 03/09/20 Rn Medical Surgical Relationship Specialty Start Date End Date Chip Arreola MD [address] [place], [place] [id number] PCP - General Family Practice 03/21/16 Nick, Inocente S [address] [facility] [address] [place] [address] [facility] 09/09/17 Antonio Cagle MD, PhD [address] [place] [address] Primary Staff Physician Cardiology 06/23/18 David Galo MD [address] [place] [address] Consulting Infectious Diseases 03/08/20 Dayanna Lewis MD [address] [place] [address] Consulting Orthopedics 03/08/20 Chip Arreola MD [address] [place] [address] Home Care Physician Family Practice 03/08/20 Dayanna Lewis MD [address] [place] [address] Referring Orthopedics 03/09/20 Bridgett Guzman RN [address] [place], [place] [phone] Public Speaking Coach Post Acute Care 03/09/20 Rn Medical Surgical Relationship Specialty Start Date End Date Chip Arreola MD [address] [place] [address] PCP - General Family Practice 03/21/16 Nick, [place] S [address] [facility] [address] [place] [address] [facility] 09/09/17 Antonio Cagle MD, PhD [address] [place] [address] Primary Staff Physician Cardiology 06/23/18 David Galo MD [address] [place] [address] Consulting Infectious Diseases 03/08/20 Dayanna Lewis MD [address] [place], [place] [id number] Consulting Orthopedics 03/08/20 Chip Arreola MD [address] [place], [place] 585[address] Home Care Physician Family Practice 03/08/20 Dayanna Lewis MD [address] [place], [place] [id number] Referring Orthopedics 03/09/20 Bridgett Guzman RN [address] [place] [address] Public Speaking Coach Post Acute Care 03/09/20 Rn Medical Surgical Relationship Specialty Start Date End Date Chip Arreola MD [address] [place], [place] [id number] PCP - General Family Practice 03/21/16 Inocente Romero [address] [address] [facility] 09/09/17 Antonio Cagle MD, PhD [address] [place] [address] Primary Staff Physician Cardiology 06/23/18 David Galo MD [address] [place] [address] Consulting Infectious Diseases 03/08/20 Dayanna Lewis MD [address] [place] [address] Consulting Orthopedics 03/08/20 Chip Arreola MD [address] [place], [place] [id number] Home Care Physician Family Practice 03/08/20 Dayanna Lewis MD [address] [place] [address] Referring Orthopedics 03/09/20 Bridgett Guzman RN [address] [place], [place] [phone] Public Speaking Coach Post Acute Care 03/09/20 Rn Medical Surgical Relationship Specialty Start Date End Date Chip Arreola MD [address] [place], [place] [id number] PCP - General Family Practice 03/21/16 Inocente Romero [address] 2043[address] [facility] 09/09/17 Antonio Cagle MD, PhD [address] [place] [address] Primary Staff Physician Cardiology 06/23/18 David Galo MD [address] [place] [address] Consulting Infectious Diseases 03/08/20 Dayanna Lewis MD [address] [place] [address] Consulting Orthopedics 03/08/20 Chip Arreola MD [address] [place], [place] [id number] Home Care Provider Family Practice 03/08/20 Dayanna Lewis MD [address] [place], [place] [id number] Referring Orthopedics 03/09/20 Bridgett Guzman RN [address] [place], [place] [phone] Public Speaking Coach Post Acute Care 03/09/20 Rn Medical Surgical Relationship Specialty Start Date End Date Chip Arreola MD [address] [place] [address] PCP - General Family Medicine 03/21/16 Inocente Romero [address] [address] [facility] 09/09/17 Antonio Cagle MD, PhD [address] [place] [address] Primary Staff Physician Cardiology 06/23/18 David Galo MD [address] [place] [address] Consulting Infectious Diseases 03/08/20 Dayanna Lewis MD [address] [place] [address] Consulting Orthopedics 03/08/20 Chip Arreola MD [address] [place] [address] Home Care Provider Family Medicine 03/08/20 Dayanna Lewis MD [address] [place] [address] Referring Orthopedics 03/09/20 Bridgett Guzman RN [address] [place] [address] Public Speaking Coach Post Acute Care 03/09/20 Rn Medical Surgical Relationship Specialty Start Date End Date Chip Arreola MD [address] [place], [place] [id number] PCP - General Family Medicine 03/21/16 Nick, [place] S [address] [place] [address] [facility] 09/09/17 Antonio Cagle MD, PhD [address] [place] [address] Primary Staff Physician Cardiology 06/23/18 David Galo MD [address] [place] [address] Consulting Infectious Diseases 03/08/20 Dayanna Lewis MD [address] [place] [address] Consulting Orthopedics 03/08/20 Chip Arreola MD [address] [place] [address] Home Care Provider Family Medicine 03/08/20 Dayanna Lewis MD [address] [place] [address] Referring Orthopedics 03/09/20 Bridgett Guzman RN [address] [place], [place] [phone] Public Speaking Coach Post Acute Care 03/09/20 Rn Medical Surgical Relationship Specialty Start Date End Date Chip Arreola MD [address] [place] [address] PCP - General Family Medicine 03/21/16 Nick, Inocente S [address] [place] [address] [facility] 09/09/17 Antonio Cagle MD, PhD [address] [place] [address] Primary Staff Physician Cardiology 06/23/18 David Galo MD [address] [place] [address] Consulting Infectious Diseases 03/08/20 Dayanna Lewis MD [address] [place] [address] Consulting Orthopedics 03/08/20 Chip Arreola MD [address] [place], [place] 987251 Home Care Provider Family Medicine 03/08/20 Dayanna Lewis MD [address] [place], [place] [id number] Referring Orthopedics 03/09/20 Bridgett Guzman RN [address] [place], [place] [phone] Public Speaking Coach Post Acute Care 03/09/20 Rn Medical Surgical Relationship Specialty Start Date End Date Chip Arreola MD [address] [place], [place] 123081 PCP - General Family Medicine 03/21/16 Inocente Romero [address] [address] [facility] 09/09/17 Antonio Cagle MD, PhD [address] [place] [address] Primary Staff Physician Cardiology 06/23/18 David Galo MD [address] [place] [address] Consulting Infectious Diseases 03/08/20 Dayanna Lewis MD [address] [place] [address] Consulting Orthopedics 03/08/20 Chip Arreola MD [address] [place], [place] 377061 Home Care Provider Family Medicine 03/08/20 Dayanna Lewis MD [address] [place] [address] Referring Orthopedics 03/09/20 Bridgett Guzman RN [address] [place], [place] [phone] Public Speaking Coach Post Acute Care 03/09/20 Rn Medical Surgical Relationship Specialty Start Date End Date No, Physician [facility] PCP - General 04/14/22 Rn Medical Surgical Relationship Specialty Start Date End Date Chip Arreola MD [address] [place], [place] 438721 PCP - General Family Medicine 03/21/16 Inocente Romero [address] [id number] [facility] 09/09/17 Antonio Cagle MD, PhD [address] [place] [address] Primary Staff Physician Cardiology 06/23/18 David Galo MD [address] [place] [address] Consulting Infectious Diseases 03/08/20 Dayanna Lewis MD [address] [place] [address] Consulting Orthopedics 03/08/20 Chip Arreola MD [address] [place], [place] 88967691 Home Care Provider Family Medicine 03/08/20 Dayanna Lewis MD [address] [place] [address] Referring Orthopedics 03/09/20 Bridgett Guzman RN [address] [place] [address] Public Speaking Coach Post Acute Care 03/09/20 Rn Medical Surgical Relationship Specialty Start Date End Date Chip Arreola MD [address] [place] [address] PCP - General Family Medicine 03/21/16 Inocente Romero [address] [address] [facility] 09/09/17 Antonio Cagle MD, PhD [address] [place] [address] Primary Staff Physician Cardiology 06/23/18 David Galo MD [address] [place] [address] Consulting Infectious Diseases 03/08/20 Dayanna Lewis MD [address] [place] [address] Consulting Orthopedics 03/08/20 Chip Arreola MD [address] [place] [address] Home Care Provider Family Medicine 03/08/20 Dayanna Lewis MD [address] [place] [address] Referring Orthopedics 03/09/20 Bridgett Guzman RN [address] [place] [address] Public Speaking Coach Post Acute Care 03/09/20 Rn Medical Surgical Relationship Specialty Start Date End Date Chip Arreola MD [address] [place], [place] [id number] PCP - General Family Medicine 03/21/16 Inocente Romero [address] [address] [facility] 09/09/17 Antonio Cagle MD, PhD [address] [place] [address] Primary Staff Physician Cardiology 06/23/18 David Galo MD [address] [place] [address] Consulting Infectious Diseases 03/08/20 Dayanna Lewis MD [address] [place] [address] Consulting Orthopedics 03/08/20 Chip Arreola MD [address] [place], [place] 83511691 Home Care Provider Family Medicine 03/08/20 Dayanna Lewis MD [address] [place] [address] Referring Orthopedics 03/09/20 Bridgett Guzman RN [address] [place], [place] [phone] Public Speaking Coach Post Acute Care 03/09/20 Rn Medical Surgical Relationship Specialty Start Date End Date Chip Arreola MD [address] [place] [address] PCP - General Family Medicine 03/21/16 Inocente Romero MD [address] [address] [facility] 09/09/17 Antonio Cagle MD, PhD [address] [address] Primary Staff Physician Cardiology 06/23/18 David Galo MD [address] [place], [place] 4673195 Consulting Infectious Diseases 03/08/20 Dayanna Lewis MD [address] [place] [id number] Consulting Orthopedics 03/08/20 Chip Arreola MD [address] [place], [place] 58518691 Home Care Provider Family Medicine 03/08/20 Dayanna Lewis MD [address] [place] [address] Referring Orthopedics 03/09/20 Bridgett Guzman RN [address] [place], [place] [phone] Public Speaking Coach Post Acute Care 03/09/20 Rn Medical Surgical Relationship Specialty Start Date End Date Cihp Arreola MD [address] [place], [place] [phone] PCP - General Family Medicine 03/21/16 Inocente Romero MD [address] [place] [address] [facility] 09/09/17 Antonio Cagle MD, PhD [address] [place], [place] 1616495 Primary Staff Physician Cardiology 06/23/18 David Galo MD [address] [place] [address] Consulting Infectious Diseases 03/08/20 Dayanna Lewis MD [address] [place], [place] 7176995 Consulting Orthopedics 03/08/20 Chip Arreola MD [address] [place], [place] 036161 Home Care Provider Family Medicine 03/08/20 Dayanna Lewis MD [address] [place], [place] 6975795 Referring Orthopedics 03/09/20 Bridgett Guzman RN [address] [place] [address] Public Speaking Coach Post Acute Care 03/09/20 Rn Medical Surgical Relationship Specialty Start Date End Date Chip Arreola MD [address] [place], [place] 175921 PCP - General Family Medicine 03/21/16 Inocente Romero MD [address] [phone] [facility] 09/09/17 Antonio Cagle MD, PhD [address] [place] [address] Primary Staff Physician Cardiology 06/23/18 David Galo MD [address] [place] [address] Consulting Infectious Diseases 03/08/20 Dayanna Lewis MD [address] [place], [place] 1622795 Consulting Orthopedics 03/08/20 Chpi Arreola MD [address] [place], [place] 548511 Home Care Provider Family Medicine 03/08/20 Dayanna Lewis MD [address] [place], [place] 6626195 Referring Orthopedics 03/09/20 Bridgett Guzman, JAMAR [address] [place] [address] Public Speaking Coach Post Acute Care 03/09/20 Team Status: Active Member Role Status Dates Dr. Chip Arreola MD Family Provider Active Dr. Chip Arreola MD Primary Care Provider Active Team Status: Inactive Member Role Status Dates Dr. Chip Arreola MD Primary Care Provi caleb, Attending Provider, Referring Provider Active Rn Medical Surgical Relationship Specialty Start Date End Date Chip Arreola MD [address] [place], [place] [id number] PCP - General Family Medicine 03/21/16 Inocente Romero MD [address] 04[address] [facility] 09/09/17 Antonio Cagle MD, PhD [address] [place], [place] 5483095 Primary Staff Physician Cardiology 06/23/18 David Galo MD [address] [place], [place] 5550795 Consulting Infectious Diseases 03/08/20 Dayanna Lewis MD [address] [place], [place] 8745295 Consulting Orthopedics 03/08/20 Chip Arreola MD [address] [place], [place] 144981 Home Care Provider Family Medicine 03/08/20 Dayanna Lewis MD [address] [place], [place] 6577895 Referring Orthopedics 03/09/20 Bridgett Guzman RN [address] [place], [place] [phone] Public Speaking Coach Post Acute Care 03/09/20 Rn Medical Surgical Relationship Specialty Start Date End Date Chip Arreola MD [address] [place], [place] 265051 PCP - General Family Medicine 03/21/16 Inocente Romero MD [address] 3534[address] [facility] 09/09/17 Antonio Cagle MD, PhD [address] [place] [address] Primary Staff Physician Cardiology 06/23/18 David Galo MD [address] [place], [place] 9573595 Consulting Infectious Diseases 03/08/20 Dayanna Lewis MD [address] [place], [place] 5426695 Consulting Orthopedics 03/08/20 Chip Arreola MD [address] [place], [place] 99995691 Home Care Provider Family Medicine 03/08/20 Dayanna Lewis MD [address] [place] 5404195 Referring Orthopedics 03/09/20 Bridgett Guzman, RN [address] [place], [place] [phone] Public Speaking Coach Post Acute Care 03/09/20 Rn Medical Surgical Relationship Specialty Start Date End Date Chip Arreola MD [address] [place], [place] 043351 PCP - General Family Medicine 03/21/16 Inocente Romero MD [address] 187[address] [facility] 09/09/17 Antonio Cagle MD, PhD [address] [place] [address] Primary Staff Physician Cardiology 06/23/18 David Galo MD [address] [place] [address] Consulting Infectious Diseases 03/08/20 Dayanna Lewis MD [address] [place] [place], [place] 0298395 Consulting Orthopedics 03/08/20 Chip Arreola MD [address] [place], [place] 49269691 Home Care Provider Family Medicine 03/08/20 Dayanna Lewis MD [address] [place], [place] 2306995 Referring Orthopedics 03/09/20 Bridgett Guzman RN [address] [place] [address] Public Speaking Coach Post Acute Care 03/09/20 Rn Medical Surgical Relationship Specialty Start Date End Date Chip Arreola MD [address] [place], [place] [id number] PCP - General Family Medicine 03/21/16 Inocente Romero MD [address] [id number] [facility] 09/09/17 Antonio Cagle MD, PhD [address] [place], [place] 1885195 Primary Staff Physician Cardiology 06/23/18 David Galo MD [address] [place] [address] Consulting Infectious Diseases 03/08/20 Dayanna Lewis MD [address] [place] [address] Consulting Orthopedics 03/08/20 Chip Arreola MD [address] [place], [place] 33321691 Home Care Provider Family Medicine 03/08/20 Dayanna Lewis MD [address] [place] [address] Referring Orthopedics 03/09/20 Bridgett Guzman RN [address] [place], [place] [phone] Public Speaking Coach Post Acute Care 03/09/20 Rn Medical Surgical Relationship Specialty Start Date End Date Chip Arreola MD [address] [place], [place] 664151 PCP - General Family Medicine 03/21/16 Inocente Romero MD [address] [id number] [facility] 09/09/17 Antonio Cagle MD, PhD [address] [place] [address] Primary Staff Physician Cardiology 06/23/18 David Galo MD [address] [place] [address] Consulting Infectious Diseases 03/08/20 Dayanna Lewis MD [address] [place] [address] Consulting Orthopedics 03/08/20 Chip Arreola MD [address] [place], [place] 989141 Home Care Provider Family Medicine 03/08/20 Dayanna Lewis MD [address] [place] [address] Referring Orthopedics 03/09/20 Bridgett Guzman RN [address] [place], [place] [phone] Public Speaking Coach Post Acute Care 03/09/20 Rn Medical Surgical Relationship Specialty Start Date End Date Chip Arreola MD [address] [place], [place] [id number] PCP - General Family Medicine 03/21/16 Inocente Romero MD [address] [phone] [facility] 09/09/17 Antonio Cagle MD, PhD [address] [place] [address] Primary Staff Physician Cardiology 06/23/18 David Galo MD [address] [place] [address] Consulting Infectious Diseases 03/08/20 Dayanna Lewis MD [address] [place] [address] Consulting Orthopedics 03/08/20 Chip Arreola MD [address] [place], [place] 82449691 Home Care Provider Family Medicine 03/08/20 Dayanna Lewis MD [address] [place] [address] Referring Orthopedics 03/09/20 Bridgett Guzman RN [address] [place] [address] Public Speaking Coach Post Acute Care 03/09/20 Rn Medical Surgical Relationship Specialty Start Date End Date Chip Arreola MD [address] [place], [place] 061081 PCP - General Family Medicine 03/21/16 Inocente Romero MD [address] [address] [facility] 09/09/17 Antonio Cagle MD, PhD [address] [place] [address] Primary Staff Physician Cardiology 06/23/18 David Galo MD [address] [place] [address] Consulting Infectious Diseases 03/08/20 Dayanna Lewis MD [address] [place] [address] Consulting Orthopedics 03/08/20 Chip Arreola MD [address] [place], [place] 41519691 Home Care Provider Family Medicine 03/08/20 Dayanna Lewis MD [address] [place] [address] Referring Orthopedics 03/09/20 Bridgett Guzman RN [address] [place] [address] Public Speaking Coach Post Acute Care 03/09/20 Rn Medical Surgical Relationship Specialty Start Date End Date Chip Arreola MD [address] [place], [place] [id number] PCP - General Family Medicine 03/21/16 Inocente Romero MD [address] [facility] [address] [place] [address] [facility] 09/09/17 Antonio Cagle MD, PhD [address] [place] [address] Primary Staff Physician Cardiology 06/23/18 David Galo MD [address] [place] [address] Consulting Infectious Diseases 03/08/20 Dayanna Lewis MD [address] [place], [place] 7919495 Consulting Orthopedics 03/08/20 Chip Arreola MD [address] [place] [address] Home Care Provider Family Medicine 03/08/20 Dayanna Lewis MD [address] [place] [address] Referring Orthopedics 03/09/20 Bridgett Guzman RN [address] [place] [address] Public Speaking Coach Post Acute Care 03/09/20 Rn Medical Surgical Relationship Specialty Start Date End Date Chip Arreola MD [address] [place], [place] [id number] PCP - General Family Medicine 03/21/16 Inocente Romero MD [address] [facility] [address] [place] [address] [facility] 09/09/17 Antonio Cagle MD, PhD [address] [place] [address] Primary Staff Physician Cardiology 06/23/18 David Galo MD [address] [place] [address] Consulting Infectious Diseases 03/08/20 Dayanna Lewis MD [address] [place], [place] 5885795 Consulting Orthopedics 03/08/20 Chip Arreola MD [address] [place], [place] 90227691 Home Care Provider Family Medicine 03/08/20 Dayanna Lewis MD [address] [place] [address] Referring Orthopedics 03/09/20 Bridgett Guzman, RN [address] [place], [place] [phone] Public Speaking Coach Post Acute Care 03/09/20 Rn Medical Surgical Relationship Specialty Start Date End Date Chip Arreola MD [address] [place], [place] [id number] PCP - General Family Medicine 03/21/16 Inocente Romero MD [address] [id number] [facility] 09/09/17 Antonio Cagle MD, PhD [address] [place], [place] 9498395 Primary Staff Physician Cardiology 06/23/18 David Galo MD [address] [place] [phone] Consulting Infectious Diseases 03/08/20 Dayanna Lewis MD [address] [place], [place] 8122995 Consulting Orthopedics 03/08/20 Chip Arreola MD [address] [place], [place] 07646691 Home Care Provider Family Medicine 03/08/20 Dayanna Lewis MD [address] [place], [place] 8780695 Referring Orthopedics 03/09/20 Bridgett Guzman RN [address] [place], [place] [phone] Public Speaking Coach Post Acute Care 03/09/20 Rn Medical Surgical Relationship Specialty Start Date End Date Chip Arreola MD [address] [place], [place] 278071 PCP - General Family Medicine 03/21/16 Inocente Romero MD [address] [address] [facility] 09/09/17 Antonio Cagle MD, PhD [address] [place] [address] Primary Staff Physician Cardiology 06/23/18 David Galo MD [address] [place] [address] Consulting Infectious Diseases 03/08/20 Dayanna Lewis MD [address] [place], [place] 2395495 Consulting Orthopedics 03/08/20 Chip Arreola MD [address] [place], [place] 736301 Home Care Provider Family Medicine 03/08/20 Dayanna Lewis MD [address] [place], [place] 6894695 Referring Orthopedics 03/09/20 Bridgett Guzman RN [address] [place], [place] [phone] Public Speaking Coach Post Acute Care 03/09/20 Rn Medical Surgical Relationship Specialty Start Date End Date Chip Arreola MD [address] [place] [address] PCP - General Family Medicine 03/21/16 Inocente Romero MD [address] [address] [facility] 09/09/17 Antonio Cagle MD, PhD [address] [place] [address] Primary Staff Physician Cardiology 06/23/18 Rn Medical Surgical Relationship Specialty Start Date End Date Chip Arreola MD [address] [place] [address] PCP - General Family Medicine 03/21/16 Inocente Romero MD [address] [place] [address] [facility] 09/09/17 Antonio Cagle MD, PhD [address] [place] [address] Primary Staff Physician Cardiology 06/23/18 David Galo MD [address] [place] [address] Consulting Infectious Diseases 03/08/20 Dayanna Lewis MD [address] [place] [address] Consulting Orthopedics 03/08/20 Chip Arreola MD [address] [place], [place] 577581 Home Care Provider Family Medicine 03/08/20 Dayanna Lewis MD [address] [place] [address] Referring Orthopedics 03/09/20 Bridgett Guzman RN [address] [place], [place] [phone] Public Speaking Coach Post Acute Care 03/09/20 Rn Medical Surgical Relationship Specialty Start Date End Date Chip Arreola MD [address] [place], [place] [id number] PCP - General Family Medicine 03/21/16 Inocente Romero MD [address] [address] [facility] 09/09/17 Antonio Cagle MD, PhD [address] [place] [address] Primary Staff Physician Cardiology 06/23/18 David Galo MD [address] [place] [address] Consulting Infectious Diseases 03/08/20 Dayanna Lewis MD [address] [place], [place] 0243295 Consulting Orthopedics 03/08/20 Chip Arreola MD [address] [place], [place] 43179691 Home Care Provider Family Medicine 03/08/20 Dayanna Lewis MD [address] [place] [address] Referring Orthopedics 03/09/20 Bridgett Guzman, RN [address] [place] [address] Public Speaking Coach Post Acute Care 03/09/20 Rn Medical Surgical Relationship Specialty Start Date End Date Chip Arreola MD [address] [place], [place] [id number] PCP - General Family Medicine 03/21/16 Inocente Romero MD [address] 398391 [facility] 09/09/17 Antonio Cagle MD, PhD [address] [place] [address] Primary Staff Physician Cardiology 06/23/18 David Galo MD [address] [place] [address] Consulting Infectious Diseases 03/08/20 Dayanna Lewis MD [address] [place], [place] 7781295 Consulting Orthopedics 03/08/20 Chip Arreola MD [address] [place], [place] 040121 Home Care Provider Family Medicine 03/08/20 Dayanna Lewis MD [address] [place], [place] 5672995 Referring Orthopedics 03/09/20 Bridgett Guzman RN [address] [place], [place] [phone] Public Speaking Coach Post Acute Care 03/09/20 Emelina Pal, ALICIA.MINERALOGY PROFESSOR [address] [place], [place] [phone] [facility] 03/15/24 Belkys Mcintyre, FITNESS CONSULTANT.MINERALOGY PROFESSOR [address] [place], [place] 15549691 [facility] 03/15/24 Rn Medical Surgical Relationship Specialty Start Date End Date Chip Arreola MD [address] [place], [place] [phone] PCP - General Family Medicine 03/21/16 Inocente Romero MD [address] 353511 [facility] 09/09/17 Antonio Cagle MD, PhD [address] [place], [place] 5102695 Primary Staff Physician Cardiology 06/23/18 David Galo MD [address] [place], [place] 5145195 Consulting Infectious Diseases 03/08/20 Dayanna Lewis MD [address] [place], [place] 4078095 Consulting Orthopedics 03/08/20 Chip Arreola MD [address] [place], [place] 80817691 Home Care Provider Family Medicine 03/08/20 Dayanna Lewis MD [address] [place] [address] Referring Orthopedics 03/09/20 Bridgett Guzman, RN [address] [place], [place] [phone] Public Speaking Coach Post Acute Care 03/09/20 Emelina Pal APRN.MINERALOGY PROFESSOR [address] [place] [address] [facility] 03/15/24 Belkys Mcintyre APRN.MINERALOGY PROFESSOR [address] [place], [place] [phone] [facility] 03/15/24 Rn Medical Surgical Relationship Specialty Start Date End Date Chip Arreola MD [address] [place], [place] [id number] PCP - General Family Medicine 03/21/16 Inocente Romero MD [address] [phone] [facility] 09/09/17 Antonio Cagle MD, PhD [address] [place], [place] 7908195 Primary Staff Physician Cardiology 06/23/18 David Galo MD [address] [place], [place] 1158695 Consulting Infectious Diseases 03/08/20 Dayanna Lewis MD [address] [place] [address] Consulting Orthopedics 03/08/20 Chip Arreola MD [address] [place], [place] 53907691 Home Care Provider Family Medicine 03/08/20 Dayanna Lewis MD [address] [place], [place] 6653695 Referring Orthopedics 03/09/20 Bridgett Guzman, RN [address] [place] [address] Public Speaking Coach Post Acute Care 03/09/20 Emelina Pal APRN.MINERALOGY PROFESSOR [address] [place], [place] [phone] [facility] 03/15/24 Belkys Mcintyre APRN.MINERALOGY PROFESSOR [address] [place], [place] 24057691 [facility] 03/15/24 Rn Medical Surgical Relationship Specialty Start Date End Date Chip Arreola MD [address] [place], [place] [phone] PCP - General Family Medicine 03/21/16 Inocente Romero MD [address] [id number] [facility] 09/09/17 Antonio Cagle MD, PhD [address] [place], [place] 4310595 Primary Staff Physician Cardiology 06/23/18 David Galo MD [address] [place], [place] 3547995 Consulting Infectious Diseases 03/08/20 Dayanna Lewis MD [address] [place] [address] Consulting Orthopedics 03/08/20 Chip Arreola MD [address] [place], [place] 136811 Home Care Provider Family Medicine 03/08/20 Dayanna Lewis MD [address] [place] [address] Referring Orthopedics 03/09/20 Bridgett Guzman RN [address] [place] [address] Public Speaking Coach Post Acute Care 03/09/20 Emelina Pal APRN.MINERALOGY PROFESSOR [address] [place], [place] 017701 [facility] 03/15/24 Rn Medical Surgical Relationship Specialty Start Date End Date Chip Arreola MD [address] [place], [place] 679391 PCP - General Family Medicine 03/21/16 Inocente Romero MD [address] 335271 [facility] 09/09/17 Antonio Cagle MD, PhD [address] [place] [id number] Primary Staff Physician Cardiology 06/23/18 David Galo MD [address] [place] [address] Consulting Infectious Diseases 03/08/20 Dayanna Lewis MD [address] [place] [address] Consulting Orthopedics 03/08/20 Chip Arreola MD [address] [place], [place] 51899691 Home Care Provider Family Medicine 03/08/20 Dayanna Lewis MD [address] [place] [id number] Referring Orthopedics 03/09/20 Bridgett Guzman RN [address] [place] [address] Public Speaking Coach Post Acute Care 03/09/20 Emelina Pal APRN.MINERALOGY PROFESSOR [address] [place], [place] 122881 [facility] 03/15/24 Belkys Mcintyre APRN.MINERALOGY PROFESSOR [address] [place], [place] 498701 [facility] 03/15/24 Rn Medical Surgical Relationship Specialty Start Date End Date Chip Arreola MD [address] [place], [place] 172751 PCP - General Family Medicine 03/21/16 Inocente Romero MD [address] 860541 [facility] 09/09/17 Antonio Cagle MD, PhD [address] [place], [place] 9954995 Primary Staff Physician Cardiology 06/23/18 David Galo MD [address] [place] [address] Consulting Infectious Diseases 03/08/20 Dayanna Lewis MD [address] [place] [address] Consulting Orthopedics 03/08/20 Chip Arreola MD [address] [place], [place] [id number] Home Care Provider Family Medicine 03/08/20 Dayanna Lewis MD [address] [place] [address] Referring Orthopedics 03/09/20 Bridgett Guzman, RN [address] [place], [place] [phone] Public Speaking Coach Post Acute Care 03/09/20 Emelina Pal, ALICIA.MINERALOGY PROFESSOR [address] [place], [place] 214871 [facility] 03/15/24 Belkys Mcintyre FITNESS CONSULTANT.MINERALOGY PROFESSOR [address] [place], [place] 103151 [facility] 03/15/24 Rn Medical Surgical Relationship Specialty Start Date End Date Chip Arreola MD [address] [place], [place] [id number] PCP - General Family Medicine 03/21/16 Inocente Romero MD [address] 550711 [facility] 09/09/17 Antonio Cagle MD, PhD [address] [place] [address] Primary Staff Physician Cardiology 06/23/18 David Galo MD [address] [place], [place] [id number] Consulting Infectious Diseases 03/08/20 Dayanna Lewis MD [address] [place] [address] Consulting Orthopedics 03/08/20 Chip Arreola MD [address] [place], [place] [id number] Home Care Provider Family Medicine 03/08/20 Dayanna Lewis MD [address] [place], [place] 2233895 Referring Orthopedics 03/09/20 Bridgett Guzman RN [address] [place], [place] [phone] Public Speaking Coach Post Acute Care 03/09/20 Emelina aPl, ALICIA.MINERALOGY PROFESSOR [address] [place], [place] [id number] [facility] 03/15/24 Belkys Mcintyre FITNESS CONSULTANT.MINERALOGY PROFESSOR [address] [place], [place] 938401 [facility] 03/15/24 Rn Medical Surgical Relationship Specialty Start Date End Date Chip Arreola MD [address] [place], [place] [id number] PCP - General Family Medicine 03/21/16 Inocente Romero MD [address] 257551 [facility] 09/09/17 Antonio Cagle MD, PhD [address] [place] [address] Primary Staff Physician Cardiology 06/23/18 David Galo MD [address] [place] [address] Consulting Infectious Diseases 03/08/20 Dayanna Lewis MD [address] [place] [address] Consulting Orthopedics 03/08/20 Chip Arreola MD [address] [place], [place] 012041 Home Care Provider Family Medicine 03/08/20 Dayanna Lewis MD [address] [place] [address] Referring Orthopedics 03/09/20 Bridgett Guzman RN [address] [place] [address] Public Speaking Coach Post Acute Care 03/09/20 Emelina Pal APRN.MINERALOGY PROFESSOR [address] [place], [place] [id number] [facility] 03/15/24 Belkys Mcintyre FITNESS CONSULTANT.MINERALOGY PROFESSOR [address] [place], [place] 718781 [facility] 03/15/24 Rn Medical Surgical Relationship Specialty Start Date End Date Chip Arreola MD [address] [place], [place] [id number] PCP - General Family Medicine 03/21/16 Inocente Romero MD [address] [address] [facility] 09/09/17 Antonio Cagle MD, PhD [address] [place], [place] 7294195 Primary Staff Physician Cardiology 06/23/18 David Galo MD [address] [place] [address] Consulting Infectious Diseases 03/08/20 Dayanna Lewis MD [address] [place], [place] 1633495 Consulting Orthopedics 03/08/20 Chip Arreola MD [address] [place], [place] 573221 Home Care Provider Family Medicine 03/08/20 Dayanna Lewis MD [address] [place], [place] 4769695 Referring Orthopedics 03/09/20 Bridgett Guzman RN [address] [place], [place] [phone] Public Speaking Coach Post Acute Care 03/09/20 Emelina Pal, ALICIA.MINERALOGY PROFESSOR [address] [place], [place] [id number] [facility] 03/15/24 Belkys Mcintyre, FITNESS CONSULTANT.MINERALOGY PROFESSOR [address] [place], [place] 896531 [facility] 03/15/24 Rn Medical Surgical Relationship Specialty Start Date End Date Chip Arreola MD [address] [place], [place] [id number] PCP - General Family Medicine 03/21/16 Inocente Romero MD [address] 819351 [facility] 09/09/17 Antonio Cagle MD, PhD [address] [place] [address] Primary Staff Physician Cardiology 06/23/18 David Galo MD [address] [place] [address] Consulting Infectious Diseases 03/08/20 Dayanna Lewis MD [address] [place], [place] 6952895 Consulting Orthopedics 03/08/20 Chip Arreola MD [address] [place], [place] 81459691 Home Care Provider Family Medicine 03/08/20 Dayanna Lewis MD [address] [place] [address] Referring Orthopedics 03/09/20 Bridgett Guzman, RN [address] [place], [place] [phone] Public Speaking Coach Post Acute Care 03/09/20 Emelina Pal APRN.MINERALOGY PROFESSOR [address] [place], [place] [phone] [facility] 03/15/24 Belkys Mcintyre FITNESS CONSULTANT.MINERALOGY PROFESSOR [address] [place], [place] 37064691 [facility] 03/15/24 Rn Medical Surgical Relationship Specialty Start Date End Date Chip Arreola MD [address] [place], [place] [id number] PCP - General Family Medicine 03/21/16 Inocente Romero MD [address] [id number] [facility] 09/09/17 Antonio Cagle MD, PhD [address] [place], [place] 0051495 Primary Staff Physician Cardiology 06/23/18 David Galo MD [address] [place], [place] 5270095 Consulting Infectious Diseases 03/08/20 Dayanna Lewis MD [address] [place], [place] 4748195 Consulting Orthopedics 03/08/20 Chip Arreola MD [address] [place], [place] 27608691 Home Care Provider Family Medicine 03/08/20 Dayanna Lewis MD [address] [place], [place] 9059295 Referring Orthopedics 03/09/20 Bridgett Guzman, RN [address] [place] [address] Public Speaking Coach Post Acute Care 03/09/20 Emelina Pal APRN.MINERALOGY PROFESSOR [address] [place], [place] [phone] [facility] 03/15/24 Belkys Mcintyre APRN.MINERALOGY PROFESSOR [address] [place], [place] 29719691 [facility] 03/15/24 Rn Medical Surgical Relationship Specialty Start Date End Date Chip Arreola MD [address] [place] [address] PCP - General Family Medicine 03/21/16 Inocente Romero MD [address] [address] [facility] 09/09/17 Antonio Cagle MD, PhD [address] [place] [address] Primary Staff Physician Cardiology 06/23/18 David Galo MD [address] [place] [address] Consulting Infectious Diseases 03/08/20 Dayanna Lewis MD [address] [place] [address] Consulting Orthopedics 03/08/20 Chip Arreola MD [address] [place], [place] 36286691 Home Care Provider Family Medicine 03/08/20 Dayanna Lewis MD [address] [place] [address] Referring Orthopedics 03/09/20 Bridgett Guzman, RN [address] [place] [address] Public Speaking Coach Post Acute Care 03/09/20 Emelina Pal APRN.MINERALOGY PROFESSOR [address] [place], [place] [phone] [facility] 03/15/24 Belkys Mcintyre APRN.[facility] [address] [place], [place] 787071 [facility] 03/15/24 Rn Medical Surgical Relationship Specialty Start Date End Date Chip Arreola MD [address] [place], [place] 438641 PCP - General Family Medicine 03/21/16 Inocente Romero MD [address] [id number] [facility] 09/09/17 Antonio Cagle MD, PhD [address] [place] [address] Primary Staff Physician Cardiology 06/23/18 David Galo MD [address] [place], [place] 7410295 Consulting Infectious Diseases 03/08/20 Dayanna Lewis MD [address] [place] [address] Consulting Orthopedics 03/08/20 Chip Arreola MD [address] [place], [place] 992871 Home Care Provider Family Medicine 03/08/20 Dayanna Lewis MD [address] [place], [place] 3137595 Referring Orthopedics 03/09/20 Bridgett Guzman, RN [address] [place], [place] [phone] Public Speaking Coach Post Acute Care 03/09/20 Emelina Pal, ALICIA.MINERALOGY PROFESSOR [address] [place] [address] [facility] 03/15/24 Belkys Mcintyre APRN.MINERALOGY PROFESSOR [address] [place], [place] 813241 [facility] 03/15/24 Rn Medical Surgical Relationship Specialty Start Date End Date Chip Arreola MD [address] [place], [place] [id number] PCP - General Family Medicine 03/21/16 Inocente Romero MD [address] 264251 [facility] 09/09/17 Antonio Cagle MD, PhD [address] [place] [address] Primary Staff Physician Cardiology 06/23/18 David Galo MD [address] [place] [phone] Consulting Infectious Diseases 03/08/20 Dayanna Lewis MD [address] [place] [id number] Consulting Orthopedics 03/08/20 Chip Arreola MD [address] [place], [place] 97024691 Home Care Provider Family Medicine 03/08/20 Dayanna Lewis MD [address] [place] [address] Referring Orthopedics 03/09/20 Bridgett Guzman RN [address] [place], [place] [phone] Public Speaking Coach Post Acute Care 03/09/20 Emelina Pal APRN.MINERALOGY PROFESSOR [address] [place], [place] 495191 [facility] 03/15/24 Belkys Mcintyre APRN.MINERALOGY PROFESSOR [address] [place], [place] 818551 [facility] 03/15/24 Rn Medical Surgical Relationship Specialty Start Date End Date Chip Arreola MD [address] [place], [place] 897521 PCP - General Family Medicine 03/21/16 Inocente Romero MD [address] 968471 [facility] 09/09/17 Antonio Cagle MD, PhD [address] [place] [address] Primary Staff Physician Cardiology 06/23/18 David Galo MD [address] [place] [address] Consulting Infectious Diseases 03/08/20 Dayanna Lewis MD [address] [place] 7165795 Consulting Orthopedics 03/08/20 hCip Arreola MD [address] [place], [place] 61239691 Home Care Provider Family Medicine 03/08/20 Dayanna Lewis MD [address] [place], [place] 6962295 Referring Orthopedics 03/09/20 Bridgett Guzman, RN [address] [place], [place] [phone] Public Speaking Coach Post Acute Care 03/09/20 Emelina Pal APRN.MINERALOGY PROFESSOR [address] [place], [place] 535641 [facility] 03/15/24 Belkys Mcintyre FITNESS CONSULTANT.MINERALOGY PROFESSOR [address] [place] [address] [facility] 03/15/24 Rn Medical Surgical Relationship Specialty Start Date End Date Chip Arreola MD [address] [place], [place] [id number] PCP - General Family Medicine 03/21/16 Inocente Romero MD [address] [address] [facility] 09/09/17 Antonio Cagle MD, PhD [address] [place], [place] 3414395 Primary Staff Physician Cardiology 06/23/18 David Galo MD [address] [place] [address] Consulting Infectious Diseases 03/08/20 Dayanna Lewis MD [address] [place], [place] 0049495 Consulting Orthopedics 03/08/20 Chip Arreola MD [address] [place], [place] 173151 Home Care Provider Family Medicine 03/08/20 Dayanna Lewis MD [address] [place] [address] Referring Orthopedics 03/09/20 Bridgett Guzman RN [address] [place], [place] [phone] Public Speaking Coach Post Acute Care 03/09/20 Emelina Pal, ALICIA.MINERALOGY PROFESSOR [address] [place], [place] 267911 [facility] 03/15/24 Belkys Mcintyre, FITNESS CONSULTANT.MINERALOGY PROFESSOR [address] [place] [address] [facility] 03/15/24 Rn Medical Surgical Relationship Specialty Start Date End Date Chip Arreola MD [address] [place], [place] 413461 PCP - General Family Medicine 03/21/16 Inocente Romero MD [address] 878641 [facility] 09/09/17 Antonio Cagle MD, PhD [address] [place] [address] Primary Staff Physician Cardiology 06/23/18 David Galo MD [address] [place] [address] Consulting Infectious Diseases 03/08/20 Dayanna Lewis MD [address] [place], [place] 7809995 Consulting Orthopedics 03/08/20 Chip Arreola MD [address] [place], [place] 45941691 Home Care Provider Family Medicine 03/08/20 Dayanna Lewis MD [address] [place] [phone] Referring Orthopedics 03/09/20 Emelina Pal APRN.MINERALOGY PROFESSOR [address] [place] [address] [facility] 03/15/24 Belkys Mcintyre, FITNESS CONSULTANT.MINERALOGY PROFESSOR [address] [place], [place] 978941 [facility] 03/15/24 Rn Medical Surgical Relationship Specialty Start Date End Date Chip Arreola MD [address] [place], [place] [id number] PCP - General Family Medicine 03/21/16 Inocente Romero MD [address] [id number] [facility] 09/09/17 Antonio Cagle MD, PhD [address] [place], [place] 6080595 Primary Staff Physician Cardiology 06/23/18 David Galo MD [address] [place] [address] Consulting Infectious Diseases 03/08/20 Dayanna Lewis MD [address] [place], [place] 9724895 Consulting Orthopedics 03/08/20 Chip Arreola MD [address] [place], [place] 45227691 Home Care Provider Family Medicine 03/08/20 Dayanna Lewis MD [address] [place], [place] 3286895 Referring Orthopedics 03/09/20 Emelina Pal APRN.MINERALOGY PROFESSOR [address] [place], [place] 40895691 [facility] 03/15/24 Belkys Mcintyre, FITNESS CONSULTANT.MINERALOGY PROFESSOR [address] [place] [address] [facility] 03/15/24 Rn Medical Surgical Relationship Specialty Start Date End Date Chip Arreola MD [address] [place], [place] 671701 PCP - General Family Medicine 03/21/16 Inocente Romero MD [address] [place], [place] 258611 [facility] 09/09/17 Antonio Cagle MD, PhD [address] [place] [address] Primary Staff Physician Cardiology 06/23/18 David Galo MD [address] [place] [address] Consulting Infectious Diseases 03/08/20 Dayanna Lewis MD [address] [place], [place] 0526395 Consulting Orthopedics 03/08/20 Chip Arreola MD [address] [place], [place] 809051 Home Care Provider Family Medicine 03/08/20 Dayanna Lewis MD [address] [place] [address] Referring Orthopedics 03/09/20 Emelina Pal APRN.MINERALOGY PROFESSOR [address] [place] [address] [facility] 03/15/24 Belkys Mcintyre FITNESS CONSULTANT.MINERALOGY PROFESSOR [address] [place], [place] 77467691 [facility] 03/15/24 Rn Medical Surgical Relationship Specialty Start Date End Date Chip Arreola MD [address] [place], [place] [phone] PCP - General Family Medicine 03/21/16 Inocente Romero MD [address] 813541 [facility] 09/09/17 Antonio Cagle MD, PhD [address] [place], [place] 8032295 Primary Staff Physician Cardiology 06/23/18 David Galo MD [address] [place], [place] 0499695 Consulting Infectious Diseases 03/08/20 Dayanna Lewis MD [address] [place], [place] 9664095 Consulting Orthopedics 03/08/20 Chip Arreola MD [address] [place], [place] 21369691 Home Care Provider Family Medicine 03/08/20 Dayanna Lewis MD [address] [place], [place] 7078595 Referring Orthopedics 03/09/20 Emelina Pal APRN.MINERALOGY PROFESSOR [address] [place] [address] [facility] 03/15/24 Belkys Mcintyre APRN.MINERALOGY PROFESSOR [address] [place] [address] [facility] 03/15/24 Rn Medical Surgical Relationship Specialty Start Date End Date Chip Arreola MD [address] [place], [place] 515961 PCP - General Family Medicine 03/21/16 Inocente Romero MD [address] 675451 [facility] 09/09/17 Antonio Cagle MD, PhD [address] [place], [place] 2220295 Primary Staff Physician Cardiology 06/23/18 David Galo MD [address] [place], [place] 4966195 Consulting Infectious Diseases 03/08/20 Dayanna Lewis MD [address] [place] [address] Consulting Orthopedics 03/08/20 Chip Arreola MD [address] [place], [place] 312571 Home Care Provider Family Medicine 03/08/20 Dayanna Lewis MD [address] [place] [address] Referring Orthopedics 03/09/20 Bridgett Guzman, RN [address] [place] [address] Public Speaking Coach Post Acute Care 03/09/20 06/09/24 Emelina Pal, ALICIA.MINERALOGY PROFESSOR [address] [place], [place] 332661 [facility] 03/15/24 Belkys Mcintyre FITNESS CONSULTANT.MINERALOGY PROFESSOR [address] [place], [place] 235771 [facility] 03/15/24 Rn Medical Surgical Relationship Specialty Start Date End Date Chip Arreola MD [address] [place], [place] [id number] PCP - General Family Medicine 03/21/16 Inocente Romero MD [address] [id number] [facility] 09/09/17 Antonio Cagle MD, PhD [address] [place], [place] 9029695 Primary Staff Physician Cardiology 06/23/18 David Galo MD [address] [place], [place] 9933195 Consulting Infectious Diseases 03/08/20 Dayanna Lewis MD [address] [place] [address] Consulting Orthopedics 03/08/20 Chip Arreola MD [address] [place], [place] 269881 Home Care Provider Family Medicine 03/08/20 Dayanna Lewis MD [address] [place] [address] Referring Orthopedics 03/09/20 Emelina Pal APRN.MINERALOGY PROFESSOR [address] [place], [place] 703911 [facility] 03/15/24 Belkys Mcintyre APRN.[facility] [address] [place], [place] 857681 [facility] 03/15/24 Rn Medical Surgical Relationship Specialty Start Date End Date Chip Arreola MD [address] [place], [place] 629441 PCP - General Family Medicine 03/21/16 Inocente Romero MD [address] [id number] [facility] 09/09/17 Antonio Cagle MD, PhD [address] [place], [place] 1201995 Primary Staff Physician Cardiology 06/23/18 David Galo MD [address] [place], [place] 3954995 Consulting Infectious Diseases 03/08/20 Dayanna Lewis MD [address] [place] [address] Consulting Orthopedics 03/08/20 Chip Arreola MD [address] [place], [place] 942831 Home Care Provider Family Medicine 03/08/20 Dayanna Lewis MD [address] [place], [place] 9819495 Referring Orthopedics 03/09/20 Emelina Pal, FITNESS CONSULTANT.MINERALOGY PROFESSOR [address] [place], [place] 395661 [facility] 03/15/24 Belkys Mcintyre APRN.MINERALOGY PROFESSOR [address] [place], [place] 660441 [facility] 03/15/24 Rn Medical Surgical Relationship Specialty Start Date End Date Chip Arreola MD [address] [place], [place] [id number] PCP - General Family Medicine 03/21/16 Inocente Romero MD [address] [phone] [facility] 09/09/17 Antonio Cagle MD, PhD [address] [place] [address] Primary Staff Physician Cardiology 06/23/18 David Galo MD [address] [place] [address] Consulting Infectious Diseases 03/08/20 Dayanna Lewis MD [address] [place] [address] Consulting Orthopedics 03/08/20 Chip Arreola MD [address] [place], [place] 369011 Home Care Provider Family Medicine 03/08/20 Dayanna Lewis MD [address] [place] [address] Referring Orthopedics 03/09/20 Emelina Pal APRN.MINERALOGY PROFESSOR [address] [place], [place] 749131 [facility] 03/15/24 Belkys Mcintyre APRN.MINERALOGY PROFESSOR [address] [place], [place] 248971 [facility] 03/15/24 Rn Medical Surgical Relationship Specialty Start Date End Date Chip Arreola MD [address] [place], [place] [id number] PCP - General Family Medicine 03/21/16 Inocente Romero MD [address] 764731 [facility] 09/09/17 Antonio Cagle MD, PhD [address] [place] [address] Primary Staff Physician Cardiology 06/23/18 David Galo MD [address] [place] [address] Consulting Infectious Diseases 03/08/20 Dayanna Lewis MD [address] [place] [address] Consulting Orthopedics 03/08/20 Chip Arreola MD [address] [place], [place] 61461691 Home Care Provider Family Medicine 03/08/20 Dayanna Lewis MD [address] [place] [address] Referring Orthopedics 03/09/20 Emelina Pla, FITNESS CONSULTANT.MINERALOGY PROFESSOR [address] [place], [place] 683831 [facility] 03/15/24 Belkys Mcintyre, FITNESS CONSULTANT.MINERALOGY PROFESSOR [address] [place], [place] 742521 [facility] 03/15/24 Team Status: Active Member Role/Relationship Status Dates Dr. Chip Arreola MD Primary Care Provider Active Team Status: Active Member Role/Relationship Status Dates Dr. Chip Arreola MD Primary Care Provider Active Start: October 11, 2024 Dr. Lida Blum MD Admit Provider Active Star t: October 11, 2024 Dr. Lida Blum MD Attending Provider Active Start: October 11, 2024 Dr. Lida Blum MD Referring Provider Active Start: October 11, 2024 Dr. Lida Blum MD Other Provider Active Star t: October 11, 2024 Dr. Ruiz Reaves DO Emergency Provider Active Start: October 11, 2024 Team Status: Active Member Role/Relationship Status Dates Dr. Chip Arreola MD Primary Care Provider Active Start: October 11, 2024 Dr. Lida Blum MD Admit Provider Active Star t: October 11, 2024 Dr. Lida Blum MD Referring Provider Active Start: October 11, 2024 Dr. Lida Blum MD Other Provider Active Star t: October 11, 2024 Dr. Ruiz Reaves DO Emergency Provider Active Start: October 11, 2024 Dr. Dayanna Miranda DO Attending Provider Active Start: October 11, 2024 Reason for Visit (unrecogniz ed section and content) Reason Comments PT Progress Note Specialty Diagnoses / Procedures Referred By Contac t Referred To Contact PHYSICAL THERAPY Diagnoses R29.6 (ICD-10-CM) - Falls frequently Procedures R29.6 (ICD-10-CM) - Falls frequently Belkys Mcintyre, FITNESS CONSULTANT.MINERALOGY PROFESSOR [address] [place] [address] Phone: tel: fax: [facility] [address] [place] [address] Phone: tel: fax: Referral ID Status Reason Start Date Expiration Date V isits Requested Visits Authorized [id number] Authorized 04/07/2024 04/06/2025 99 99 Reason Comments Physical Therapy Specialty Diagnoses / Procedures Referred By Contac t Referred To Contact PHYSICAL THERAPY Diagnoses R29.6 (ICD-10-CM) - Falls frequently Procedures R29.6 (ICD-10-CM) - Falls frequently Belkys Mcintyre FITNESS CONSULTANT.MINERALOGY PROFESSOR [address] [place] [address] [facility] [address] [place] [address] Reason Comments Wrist/forearm Injury R wrist pain and br uising after slipping on stairs x1 week Reason Comments Established Patient Fracture Reason Comments REF: Luana cooney 08-22-2021 New Fracture Reason Onset Date Comments Refill Request 10/16/2021 Reason Comments 6 Month Exam Reason Comments Results Reason Comments Follow Up Discuss labs from [facility] Reason Comments Established Patient 15 wks 6 days post f x right radial styloid Fracture 15 wks 6 days post f x right radial styloid Specialty Diagnoses / Procedures Referred By Contac t Referred To Contact Orthopedics Diagnoses Other closed intra-articular fracture of distal end of right radius, initial encounter Procedures CONSULT TO ORTHOPAEDICS OFFICE/OUTPATIENT NEW HIGH MDM 60-74 MINUTES Jaleel Cerda MD [address] [place] [address] Referral ID Status Reason Start Date Expiration Date V isits Requested Visits Authorized [id number] Closed PCP Requested Referral 08/22/2021 08/22/2022 1 1 Reason Comments Established Patient Results - Mri Reason Comments Established Patient Reason Comments Foot Swelling X left foot swelling-had toe nails and callous on left foot trimmed on 04/04/22 Reason Comments Follow Up Reason Comments Radio Gen A21 Specialty Diagnoses / Procedures Referred By Contac t Referred To Contact XR IMAGING Diagnoses Pain in joint of right shoulder Procedures XR SHOULDER GENERAL 3V OR MORE AP/TRUE AP/OTHER RIGHT RADEX SHOULDER COMPLETE MINIMUM 2 VIEWS Dominga Reese PA-C [address] [place] [address] Xr Imaging Referral ID Status Reason Start Date Expiration Date V isits Requested Visits Authorized [id number] Closed Auto-Generate d Referral 05/14/2022 06/13/2023 1 1 Reason Comments Established Patient Follow-Up Reason Onset Date Comments Refill Request 03/05/2023 Reason Comments Abscess Reason Onset Date Comments Refill Request 06/27/2023 Reason Comments Macular Degeneration Follow Up Reason Comments Medicare Wellness Exam Reason Comments Patient Question Reason Comments Tremor Back Pain Fall 2 fall the past 2 we eks Reason Onset Date Comments Refill Request 03/24/2024 Reason Comments PT Eval Specialty Diagnoses / Procedures Referred By Contac t Referred To Contact [facility] Diagnoses Falls frequently Procedures CONSULT TO PHYSICAL THERAPY PHYSICAL THERAPY EVALUATION HIGH COMPLEX 45 MINS Belkys Mcintyre, FITNESS CONSULTANT.MINERALOGY PROFESSOR [address] [place] [address] [facility] [address] [place] [address] Referral ID Status Reason Start Date Expiration Date Visits Requested Visits Authorized [id number] Authorized Auto-Generat ed Referral 04/07/2023 04/06/2024 99 99 Reason Comments Established Patient Follow-Up a fib, med refill needed for metoprolol Reason Comments Fall Fell 2.5 weeks ago w hen walking the dog. Left stringer landed on brick. Leg Pain Left leg pain and alvina mp from fall Reason Comments Fall Fell while in [place] one week ago Reason Onset Date Comments Results 05/31/2024 Reason Comments Pain Reason Onset Date Comments Refill Request 07/24/2024 Reason Comments Edema Swelling in ankles Reason Onset Date Comments Results 10/05/2024 Reason Comments Established Patient Injections Goals (unrecognized section and content) Goals may be documented in a n alternate sectionGoals may be documented in an alternate section FOR RECORDS PERTAINING TO PATIENTS WHO ARE OR HAVE BEEN ENROLLED IN A CHEMICAL DEPENDENCY/SUBSTANCEABUSE PROGRAM, SOME INFORMATION MAY BE OMITTED. This clinical summary was aggregated from multiple sources. Caution should be exercised in using it in the provision of clinical care. This summary normalizes information from multiple sources, and as a consequence, information in this document may materially change the coding, format and clinical context of patient data. In addition, data may be omitted in some cases. CLINICAL DECISIONS SHOULD BE BASED ON THE PRIMARY CLINICAL RECORDS. [facility]. provides no warranty or guarantee of the accuracy or completeness of information in this document.
--- OUTSIDE RECORDS SUMMARY | 2024-10-14 01:31 | XMS RPT_ITS | CCD ---
Author Organization [facility] CliniSyaz Care Team Providers Care [employer] Worker Name Role Phone Chip Arreola Unavailable Chip Arreola MD Primary Care Provider Nick, [place] S Unavailable Tsering SINHA, PhD, Antonio Cardenas Unavailable David Galo MD Unavailable Dayanan Lewis MD Unavailable Chip Arreola MD Unavailable Dayanna Lewis MD Unavailable Bridgett Guzman RN Unavailable Chip Arreola MD Primary Care Provider Nick, Inocente S Unavailable Tsering SINHA, PhD, Antonio Cardenas Unavailable David Galo MD Unavailable Dayanna Lewis MD Unavailable Chip Arreola MD Unavailable Dayanna Lewis MD Unavailable Bridgett Guzman RN Unavailable Nick, [place] S Unavailable Chip Arreola MD Unavailable Bridgett Guzman RN Unavailable Chip Arreola MD Primary Care Provider Chip Arreola MD Unavailable Chip Arreola MD Primary Care Provider Nick, Inocente S Unavailable Tsering SINHA, PhD, Antonio Cardenas Unavailable Clover SINHA, David Unavailable Joshua SINHA, Dayanna T Unavailable Chip Arreola MD Unavailable Dayanna Lewis MD Unavailable [facility] Bridgett ROLDAN Unavailable GINGER FLORES Attending Unavailable NO, PHYSICIAN Primary Care Unavailable No, Physician Primary Care Provider Unavailabl jackie Romero MD, Inocente S Unavailable Tsering SINHA, PhD, Antonio Cardenas Unavailable [facility] Bridgett ROLDAN Unavailable Chip Arreola MD Primary Care Provider Haagen OPTOMETRIST.ANJEL Emelina Unavailable Suppan OPTOMETRIST.ANJEL, Belkys A Unavailable Chip Arreola Referring Unavailable Elba, Chip Primary Care Unavailable Elmira Garnica NP Attending Unavailable Suppan OPTOMETRIST.ANJEL, Belkys A Unavailable Suppan OPTOMETRIST.ANJEL, Belkys A Unavailable [phone] Bridgett Guzman RN Unavailable ELBA, CHIP Cardenas [...] Unavailable ELBA, CHIP Cardenas Primary Care Unavailable [place] , Dr. Saunders Primary Care Provider Dr. Lida Blum MD Admit Provider [phone] Lida Blum MD Attending Provider Dr. Lida Blum MD Referring Provider Dr. Lida Blum MD Other Provider Dr. Ruiz Reaves DO Emergency Provider [phone] Dr. Dayanna Miranda DO Attending Provider Allergies Allergy Classification Reported Allergen(s) Allergy Type Date of Onset Reaction(s) Facility (20 sources) Azithromycin; 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: [AZITHROMYCIN] Drug Allergy 2 Swelling, Rash [facility] Work Phone: (2 sources) *ADHESIVE TAPE Propensity to adverse reactions 8 [facility] Work Phone: (20 sources) anastrozole; 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: [ANASTROZOLE] Drug Allergy 9 Other: See Comments, Headache [facility] (20 sources) exemestane; 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: [EXEMESTANE] Drug Allergy 9 Other: See Comments [facility] (20 sources) Lisinopril; 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: [LISINOPRIL] Drug Allergy 0 Cough [facility] (20 sources) Adhesive Tape-Silicones; 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: [ADHESIVE TAPE-SILICONES] Propensity to adverse reactions to drug 0 Rash [facility] (20 sources) Silver-Hydrocoll oid Dressing; 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: [SILVER-HYDROCOL LOID DRESSING] Drug Intolerance 4 Itching [facility] (3 sources) Adhesive agent; 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: [adhesive] Allergy to substance 2 Itching, rash, redness [facility] (2 sources) Allantoin Drug Allergy 2 Rash, skin peeling [facility] (2 sources) Vitamin A Drug Allergy 2 Rash [facility] (1 source) Allantoin Drug Allergy 5 [facility] (1 source) Azithromycin Drug Allergy 5 [facility] (1 source) Lisinopril Drug Allergy 5 [facility] (1 source) Vitamin A Drug Allergy 5 [facility] Medications Current Medications Medication Drug Class(es) [...] Comment on above: Take 1 tablet by [facility] twice daily for 10 days. benoxinate hydrochloride [...] 1 tablet by gabrielle th once daily. nntqwmei-yvy-lrxxmmf sulfate 4.5 mg iron Tab (1 source) Start: 10-04-19 10 take 1 tablet by mouth once ttqpgquk-qqc-fehrmxe sulfate 4.5 mg iron Tab Take 1 [...] tablet d aily. omega-3 acid ethyl esters (shelter) 1000 mg oral capsule (1 source) Start: 07-01-19 12 [place]-3 Fatty Acids (FISH OIL) 1000 MG Cap Take by mouth. 07/01/2011 Active [place]-3 Fatty Acids (1 source) Start: 09-05-19 19 take 2000 mg by mouth once daily [place]-3 Fatty Acids Active 2000 MG PO DAILY September 03, 2018 11:00pm [place]-3 Fatty Acids 1,000 MG capsule (1 source) Start: 09-05-19 19 take 1 capsule by mouth once daily [place]-3 Fatty Acids 1,000 MG capsule Active 2000 [...] 1 tablet by gabrielle once daily. Vit C,E,Zn,Cb-Cwwik6-Zcm-Ze ax (1 source) Start: 03-25-2022 Vit C,E,Zn,Zl-Uycfa9-Ntr-Ze ax Active CAP PO March 25, 2022 12:00am vit C,C-Zi-mmxrl-lutein-michael andrew (PRESERVISION AREDS-2) 250-90-40-1 mg (20 sources) vit C,W-Fe-mnypj-lutein-michael andrew ([place] AREDS-2) 250-90-40-1 mg Take 1 [...] 0855, Until Jael 06/24/24 at 0855 Vit C,E,Zn,Tw-Jvpaj5-Hnv-Zeax 250-2.5-0.5 mg capsule (1 source) Start: 03-25-2022 End: 10-11-2024 Vit C,E,Zn,Xc-Cakrt0-Lng-Zeax 250-2.5-0.5 mg capsule Discontinued NMA PO March [...] sources) Long-term current use of anticoagulant; 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: [USP (current) use of anticoagulants] Onset: 04-15-2022 Episodic [...] mass index (BMI) 40.0-44.9, adult ([facility])] Onset: 10-23-2021 Chronic Other nutritional; [...] Auto (Unsp spec) [#/Vol] 2.46 10*3/uL 0.83-4.51 [facility] Absolute neutrophil countOrd ered By: Ruiz Reaves on 10-11-2024 Neutrophils (Bld) [#/Vol] 5.1 10*3/uL 2.0-7.7 [facility] Activated partial thrombopla stin time (aPTT) in platelet poor plasma by coagulation aOrdered By: Ruiz Reaves on 10-11-2024 aPTT Coag (PPP) [Time] 33.0 s 24.1-36.2 [facility] Anion gap in Serum or Plasma Ordered By: Ruiz Reaves on 10-11-2024 Anion gap [Moles/Vol] 14 mmol/L 5-15 [facility] Automated lymphocyte count a s percentage of total leukocytesOrdered By: Ruiz Reaves on 10-11-2024 Lymphocytes/100 WBC Auto (Unsp spec) 30.4 % 19-41 [facility] BUN/creatinine ratioOrdered By: Ruiz Reaves on 10-11-2024 Urea nitrogen/Creatinine [Mass ratio] 29.1 mg/mg High 10-20 [facility] Basophil percentageOrdered B y: Ruiz Reaves on 10-11-2024 Basophils/100 WBC (Bld) 0.5 % 0-1 [facility] Carbon dioxide, total [Moles /volume] in Central venous bloodOrdered By: Ruiz Reaves on 10-11-2024 CO2 [Moles/Vol] 26.7 mmol/L 21.0-32.0 [facility] Chloride assayOrdered By: Andrew Reaves on 10-11-2024 Chloride [Moles/Vol] 103 mmol/L 98-108 [facility] Eosinophil percentageOrdered By: Ruiz Reaves on 10-11-2024 Eosinophils/100 WBC (Bld) 0.6 % 0-5 [facility] Erythrocyte distribution wid th ratioOrdered By: Ruiz Reaves on 10-11-2024 Erythrocyte distribution width (RBC) [Ratio] 12.9 % 11.6-14.6 [facility] Erythrocyte distribution wid th standard deviationOrdered By: Ruiz Reaves on 10-11-2024 Erythrocyte distribution width (RBC) [Ratio] 46.0 fl High 35.1-43.9 [facility] Glomerular filtration rate ( GFR) estimation/1.73 sq m using serum, plasma, or whole bOrdered By: Ruiz Reaves on 10-11-2024 GFR/1.73 sq M.predicted among non-blacks MDRD (S/P/Bld) [Vol rate/Area] 63 mL/min/{1.73_m2} >60 [facility] Comment on above: mL/min/1.73m2 CKD-EP I Creatinine Equation (2020) Hematocrit Auto (Bld) [Volum e fraction]Ordered By: Ruiz Reaves on 10-11-2024 Hematocrit (Bld) [Volume fraction] 46.2 % 37-47 [facility] Hemoglobin measurementOrdere d By: Ruiz Reaves on 10-11-2024 Hemoglobin (Bld) [Mass/Vol] 14.9 g/dL 12.0-15.0 [facility] Immature granulocytes/100 WB C Auto (Bld)Ordered By: Ruiz Reaves on 10-11-2024 Immature granulocytes/100 WBC (Bld) 0.400 % 0.0-0.9 [facility] Comment on above: IG% - Immature Granu locytes (promyelocytes, myelocytes and metamyelocytes) > 1% indicates that a LEFT SHIFT is Present. International normalized rat io (INR) calculationOrdered By: Ruiz Reaves on 10-11-2024 INR Coag (Bld) [Relative time] 2.1 {INR} [facility] MCV (mean corpuscular volume ) determinationOrdered By: Ruiz Reaves on 10-11-2024 MCV (RBC) [Entitic vol] 96.3 fL 81-99 [facility] Magnesium measurement (mass/ volume)Ordered By: Ruiz Reaves on 10-11-2024 Magnesium (Unsp spec) [Mass/Vol] 2.4 mg/dL High 1.5-2.2 [facility] Mean corpuscular hemoglobin (MCH) determinationOrdered By: Ruiz Reaves on 10-11-2024 MCH (RBC) [Entitic mass] 31.0 pg 27.0-32.0 [facility] Mean corpuscular hemoglobin concentration (MCHC) determinationOrdered By: Ruiz Reaves on 10-11-2024 MCHC (RBC) [Mass/Vol] 32.3 g/dL 32-36 [facility] Mean platelet volume determi nationOrdered By: Ruiz Reaves on 10-11-2024 Platelet mean volume (Bld) [Entitic vol] 10.3 fL 6.2-12.0 [facility] Monocyte percentageOrdered B y: Ruiz Reaves on 10-11-2024 Monocytes/100 WBC (Bld) 5.7 % 0-10 [facility] Natriuretic peptide.B prohor waldo N-Terminal [Mass/volume] in Serum or PlasmaOrdered By: Ruiz Reaves on 10-11-2024 Natriuretic peptide.B prohormone N-Terminal [Mass/Vol] 1553 pg/mL <1800 [facility] Comment on above: Heart Failure Unlike ly: < 300 pg/mLHeart Failure Likely< 50 Years: > 450 pg/mL50-75 Years: > 900 pg/mL>75 Years: > 1800 pg/mL Neutrophil percentageOrdered By: Ruiz Reaves on 10-11-2024 Neutrophils/100 WBC (Bld) 62.4 % 47-70 [facility] Nucleated red blood cell per centageOrdered By: Ruiz Reaves on 10-11-2024 Nucleated RBC/100 WBC (Bld) [Ratio] 0 % 0-5 [facility] Platelet countOrdered By: Andrew Reaves on 10-11-2024 Platelets (Bld) [#/Vol] 290 10*3/uL 150-450 [facility] Potassium measurement (mass/ volume)Ordered By: Ruiz Reaves on 10-11-2024 Potassium (Unsp spec) [Mass/Vol] 3.8 mmol/L 3.3-5.1 [facility] Prothrombin timeOrdered By: Ruiz Reaves on 10-11-2024 PT Coag (PPP) [Time] 23.6 s High 11.7-14.9 [facility] RBC Auto (Bld) [#/Vol]Ordere d By: Ruiz Reaves on 10-11-2024 RBC (Bld) [#/Vol] 4.80 10*6/uL 4.2-5.4 [facility] Serum creatinine measurement (mass/volume)Ordered By: Ruiz Reaves on 10-11-2024 Creatinine [Mass/Vol] 0.92 mg/dL 0.70-1.20 [facility] Serum glucose measurement (m ass/volume)Ordered By: Ruiz Reaves on 10-11-2024 Glucose [Mass/Vol] 170 mg/dL High 70-99 [facility] Serum or plasma calcium shubham urement (mass/volume)Ordered By: Ruiz Reaves on 10-11-2024 Calcium [Mass/Vol] 9.9 mg/dL 7.6-11.0 [facility] Serum or plasma urea nitroge n measurement (mass/volume)Ordered By: Ruiz Reaves on 10-11-2024 Urea nitrogen [Mass/Vol] 27 mg/dL High 4-19 [facility] Sodium levelOrdered By: Becca Reaves on 10-11-2024 Sodium [Moles/Vol] 143 mmol/L 133-145 [facility] TSH DL <= 0.005 mIU/L QnOrde red By: Ruiz Reaves on 10-11-2024 TSH Qn 2.520 uIU/mL 0.300-4.200 [facility] Troponin T.cardiac [Mass/vol ume] in Serum or Plasma by High sensitivity methodOrdered By: Ruiz Reaves on 10-11-2024 Troponin T.cardiac High sensitivity method [Mass/Vol] 17 ng/L High <14 [facility] White blood cell (WBC) count Ordered By: Ruiz Reaves on 10-11-2024 WBC (Bld) [#/Vol] 8.1 10*3/uL 4.4-11.0 [facility] CNOVon 10-07-2024 CNOV Office Visit (ORTHMN) KESHA CARMICHAEL ([id number]) 1945 F Date Time Provider Department 10/07/24 8:40 AM DOMINGA REESE ORTHMN During your visit today, we recorded the following information about you: Dominga Reese PA-C 10/07/2024 9:15 AM Signed [facility] NOTE Department of Orthopaedics Dayanna Lewis M.D. NAME: Kesha Curiel [facility] NO.: [id number] DATE: October 07, 2024 Kesha returns for [...] result) Impression: IMPRESSION: Degenerative changes as described. Carpenter Foreman: RG Transcribe Date/Time: Jun 22 2024 8:45P... XR SHOULDER GENERAL 3V OR MORE AP/TRUE AP/OTHER RIGHT Exam End: 06/18/2024 1:23 PM (Final result) Impression: IMPRESSION: Degenerative changes as described. Carpenter Foreman: RG Transcribe Date/Time: Jun 22 2024 8:45P... [...] these instructions. Informed Consent Consent Obtained: Verbal Mcgehee Protocol A moment to CARE was completed. 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 Avoid these exercises: Flys, seated [...] [M75.101, M12.811] Order(s):Large Joint Arthro/Inj: bilateral glenohumerals [GXG124] Order #: [id number] [] lidocaine (PF) 10 mg/mL (1 %) 4 mL injection (XYLOCAINE)Disp: Rfl: [] lidocaine (PF) 10 mg/mL (1 %) 4 mL injection (XYLOCAINE)Disp: Rfl: [] triamcinolone acetonide 40 mg injection (KeNALog 40)Disp: Rfl: [] triamcinolone acetonide 40 mg injectio (more content not included)... Normal [facility] Large Joint Arthro/Inj: bila teral glenohumeralson [...] these instructions. Informed Consent Consent Obtained: Verbal Mcgehee Protocol A moment to CARE was completed. [...] implant(s) inserted. SIGN OUT No specimen collected. [facility] 25(OH)D3 [facility] 25-hydroxyvitamin D3 [Mass/Vol] 29.6 ng/mL Low 31.0-80.0 [facility] Comment on above: Order Comment: Speci men Type: BLOOD SPECIMENOrdering Facility: [facility] Address: [address] [place] [address] [place] [id number] Result Comment: Clas sification of 25 [place] Vitamin D status: Deficiency/Insufficiency: < or = 30 ng/ml. Sufficiency/Optimal Levels: 31-80 ng/mL Toxicity: > 100 ng/mL. Test performed by chemiluminescent immunoassay. Performed By: #### 1 989-3 ####[facility] LABCLIA [id number] [place] [id number] [place] [facility] 25-hydroxyvitamin D3 [Mass/V ol]on 10-04-2024 Interpretation and review of laboratory results Abnormal [facility] The reference range interval was based on an analysis of samples from healthy adults and may not pertain to children from 0-18 years old. [facility] CBC W Auto Differential pane l (Bld)on 10-04-2024 Basophils (Bld) [#/Vol] 0.06 10*3/uL [facility] Basophils/100 WBC (Bld) 1 % [facility] Differential cell count method Nom (Bld) Auto [facility] Eosinophils (Bld) [#/Vol] 0.24 10*3/uL [facility] Eosinophils/100 WBC (Bld) 3.8 % [facility] Erythrocyte distribution width (RBC) [Ratio] 13.2 % 11.5 - 15.0 % [facility] Hematocrit (Bld) [Volume fraction] 44.4 % 36.0 - 46.0 % [facility] Hemoglobin (Bld) [Mass/Vol] 13.9 g/dL 11.5 - 15.5 g/dL [facility] Immature granulocytes (Bld) [#/Vol] [facility] Immature granulocytes/100 WBC (Bld) 0.3 % [facility] Lymphocytes (Bld) [#/Vol] 1.64 10*3/uL [facility] Lymphocytes/100 WBC (Bld) 26.2 % [facility] MCH (RBC) [Entitic mass] 31.2 pg 26. 0 - 34.0 pg [facility] MCHC (RBC) [Mass/Vol] 31.3 g/dL 30.5 - 36.0 g/dL [facility] MCV (RBC) [Entitic vol] 99.6 fL 80.0 - 100.0 fL [facility] Monocytes (Bld) [#/Vol] 0.42 10*3/uL [facility] Monocytes/100 WBC (Bld) 6.7 % [facility] Neutrophils (Bld) [#/Vol] 3.89 10*3/uL [facility] Neutrophils/100 WBC (Bld) 62 % [facility] Nucleated RBC (Bld) [#/Vol] NINF [facility] Nucleated RBC/100 WBC (Bld) [Ratio] 0 % /100 WBC [facility] Platelet mean volume (Bld) [Entitic vol] 11.1 fL 9.0 - 12.7 fL [facility] Platelets (Bld) [#/Vol] 259 10*3/uL [facility] RBC (Bld) [#/Vol] 4.46 10*6/uL 3.90 - 5.2 0 m/uL [facility] WBC (Bld) [#/Vol] 6.27 10*3/uL [facility] Basophils (Bld) [#/Vol] 0.06 10*3/uL Normal <0.11 [facility] Comment on above: Order Comment: Speci men Type: BLOOD SPECIMENOrdering Facility: [facility] Address: [address] [place] [address] Performed By: #### 5 7021-8 ####[facility] LABCLIA [id number] [place] [address] [place] Basophils/100 WBC (Bld) 1.0 % Normal [facility] Comment on above: Order Comment: Speci men Type: BLOOD SPECIMENOrdering Facility: [facility] Address: [address] [place] [address] Performed By: #### 5 7021-8 ####[facility] LABCLIA [id number] [place] [address] [place] Differential cell count method Nom (Bld) Auto Normal [facility] Comment on above: Order Comment: Speci men Type: BLOOD SPECIMENOrdering Facility: [facility] Address: [address] [place] [address] Performed By: #### 5 7021-8 ####[facility] LABCLIA [id number] [place] [address] [place] Eosinophils (Bld) [#/Vol] 0.24 10*3/uL Normal <0.46 [facility] Comment on above: Order Comment: Speci men Type: BLOOD SPECIMENOrdering Facility: [facility] Address: [address] [place] [address] Performed By: #### 5 7021-8 ####[facility] LABCLIA [id number] [place] [address] [place] Eosinophils/100 WBC (Bld) 3.8 % Normal [facility] Comment on above: Order Comment: Speci men Type: BLOOD SPECIMENOrdering Facility: [facility] Address: [address] [place] [address] Performed By: #### 5 7021-8 ####[facility] LABCLIA [id number] [place] [address] [place] Erythrocyte distribution width (RBC) [Ratio] 13.2 % Normal 11.5-15.0 [facility] Comment on above: Order Comment: Speci men Type: BLOOD SPECIMENOrdering Facility: [facility] Address: [address] [place] [address] Performed By: #### 5 7021-8 ####[facility] LABCLIA [id number] [place] [address] [place] Hematocrit (Bld) [Volume fraction] 44.4 % Normal 36.0-46.0 [facility] Comment on above: Order Comment: Speci men Type: BLOOD SPECIMENOrdering Facility: [facility] Address: [address] [place] [address] Performed By: #### 5 7021-8 ####[facility] LABCLIA [id number] [address], [facility] [place] Hemoglobin (Bld) [Mass/Vol] 13.9 g/dL Normal 11.5-15.5 [facility] Comment on above: Order Comment: Speci men Type: BLOOD SPECIMENOrdering Facility: [facility] Address: [address] [place] [address] Performed By: #### 5 7021-8 ####[facility] LABCLIA [id number] [address] [place] [address] [place] Immature granulocytes (Bld) [#/Vol] 10*3/uL Normal <0.10 [facility] Comment on above: Order Comment: Speci men Type: BLOOD SPECIMENOrdering Facility: [facility] Address: [address] [place] [address] Performed By: #### 5 7021-8 ####[facility] LABCLIA [id number] [place] [address] [place] Immature granulocytes/100 WBC (Bld) 0.3 % Normal [facility] Comment on above: Order Comment: Speci men Type: BLOOD SPECIMENOrdering Facility: [facility] Address: [address] [place] [address] Performed By: #### 5 7021-8 ####[facility] LABCLIA [id number] [place] [address] [place] Lymphocytes (Bld) [#/Vol] 1.64 10*3/uL Normal 1.00-4.00 [facility] Comment on above: Order Comment: Speci men Type: BLOOD SPECIMENOrdering Facility: [facility] Address: [address] [place] [address] Performed By: #### 5 7021-8 ####[facility] LABCLIA [id number] [place] [id number] [place] Lymphocytes/100 WBC (Bld) 26.2 % Normal [facility] Comment on above: Order Comment: Speci men Type: BLOOD SPECIMENOrdering Facility: [facility] Address: [address] [place] [address] Performed By: #### 5 7021-8 ####[facility] LABIA [id number] [place] [address] [place] MCH (RBC) [Entitic mass] 31.2 pg Normal 26.0-34.0 [facility] Comment on above: Order Comment: Speci men Type: BLOOD SPECIMENOrdering Facility: [facility] Address: [address] [place] [address] Performed By: #### 5 7021-8 ####[facility] LABIA [id number] [place] [address] [place] MCHC (RBC) [Mass/Vol] 31.3 g/dL Normal 30.5-36.0 [facility] Comment on above: Order Comment: Speci men Type: BLOOD SPECIMENOrdering Facility: [facility] Address: [address] [place] [address] Performed By: #### 5 7021-8 ####[facility] [id number] [place] [address] [place] MCV (RBC) [Entitic vol] 99.6 fL Normal 80.0-100.0 [facility] Comment on above: Order Comment: Speci men Type: BLOOD SPECIMENOrdering Facility: [facility] Address: [address] [place] [address] Performed By: #### 5 7021-8 ####[facility] [id number] [place] [address] [place] Monocytes (Bld) [#/Vol] 0.42 10*3/uL Normal <0.87 [facility] Comment on above: Order Comment: Speci men Type: BLOOD SPECIMENOrdering Facility: [facility] Address: [address] [place] [address] Performed By: #### 5 7021-8 ####[facility] [id number] [address] [place] Monocytes/100 WBC (Bld) 6.7 % Normal [facility] Comment on above: Order Comment: Speci men Type: BLOOD SPECIMENOrdering Facility: [facility] Address: [address] [place] [address] Performed By: #### 5 7021-8 ####[facility] LABCLIA [id number] [address] [address] [place] Neutrophils (Bld) [#/Vol] 3.89 10*3/uL Normal 1.45-7.50 [facility] Comment on above: Order Comment: Speci men Type: BLOOD SPECIMENOrdering Facility: [facility] Address: [address] [place] [address] Performed By: #### 5 7021-8 ####[facility] LABCLIA [id number] [place] [address] [place] Neutrophils/100 WBC (Bld) 62.0 % Normal [facility] Comment on above: Order Comment: Speci men Type: BLOOD SPECIMENOrdering Facility: [facility] Address: [address] [place] [address] Performed By: #### 5 7021-8 ####[facility] LABCLIA [id number] [place] [address] [place] Nucleated RBC (Bld) [#/Vol] 10*3/uL Normal <0.01 [facility] Comment on above: Order Comment: Speci men Type: BLOOD SPECIMENOrdering Facility: [facility] Address: [address] [place] [address] Performed By: #### 5 7021-8 ####[facility] LABCLIA [id number] [place] [address] [place] Nucleated RBC/100 WBC (Bld) [Ratio] 0.0 /100 WBC Normal [facility] Comment on above: Order Comment: Speci men Type: BLOOD SPECIMENOrdering Facility: [facility] Address: [address] [place] [address] Performed By: #### 5 7021-8 ####[facility] LABCLIA [id number] [facility] [address] [place] [address] [place] Platelet mean volume (Bld) [Entitic vol] 11.1 fL Normal 9.0-12.7 [facility] Comment on above: Order Comment: Speci men Type: BLOOD SPECIMENOrdering Facility: [facility] Address: [address] [place] [address] Performed By: #### 5 7021-8 ####[facility] LABCLIA [id number] [facility] [address] [place] [address] [place] Platelets (Bld) [#/Vol] 259 10*3/uL Normal 150-400 [facility] Comment on above: Order Comment: Speci men Type: BLOOD SPECIMENOrdering Facility: [facility] Address: [address] [place] [address] Performed By: #### 5 7021-8 ####[facility] LABIA [id number] [facility] [facility] [address] [place] [address] [place] RBC (Bld) [#/Vol] 4.46 10*6/uL Normal 3.90-5.20 [facility] Comment on above: Order Comment: Speci men Type: BLOOD SPECIMENOrdering Facility: [facility] Address: [address] [place] [address] Performed By: #### 5 7021-8 ####[facility] LABCLIA [id number] [address] [place] [address] [place] WBC (Bld) [#/Vol] 6.27 10*3/uL Normal 3.70-11.00 [facility] Comment on above: Order Comment: Speci men Type: BLOOD SPECIMENOrdering Facility: [facility] Address: [address] [place] [address] Performed By: #### 5 7021-8 ####[facility] LABIA [id number] [facility] [address] [place] [address] [facility] CNOVon 10-04-2024 CNOV Office Visit (FAMPWS) KESHA CARMICHAEL ([id number]) 1945 F Date Time Provider Department 10/04/24 10:20 AM [facility] During your visit today, we recorded the following information about you: Pulse Blood pressure Weight 91/minute 114/40 94.8 kg Belkys Mcintyre APRN.[facility] 10/04/2024 10:41 AM Signed This is [...] HISTORY Diagnosis Date Abnormal EKG afib, inf CA age undetermined Atrial fibrillation (HCC) Breast cancer [...] 1 tablet by mouth once daily. vit C,R-Gg-zierh-lutein- zeaxan (PRESERVISION AREDS-2) 250-90-40-1 mg Take 1 [...] Mother Hypertension Mother Hypertension Father Heart Father CA Diabetes Father Kidney Disease Sister Heart disease Sister Cancer Sister breast COPD Sister Hypertension Sister Macular Degen Sister Stroke Sister mini strokes Arthritis Sister Cancer Sister breast Hypertension Sister Macular Degen Sister Diabetes Sister Tremor Sister H (more content not included)... Normal [facility] Calcium.ionized [Moles/Vol]o n 10-04-2024 Calcium.ionized (Bld) [Mass/Vol] 1.26 mmol/L 1.08 - 1.30 mmol/L [facility] Calcium.ionized adjusted to pH 7.4 (Bld) [Moles/Vol] 1.26 mmol/L 1.08 - 1.30 mmol/L [facility] Interpretation and review of laboratory results Normal [facility] Calcium.ionized (Bld) [Mass/Vol] 1.26 mmol/L Normal 1.08-1.30 [facility] Comment on above: Order Comment: Speci men Type: BLOOD SPECIMENOrdering Facility: [facility] Address: [address] [place] [address] Performed By: #### 1 995-0 ####[facility] LABCLIA [id number] [place] [address] [place] Calcium.ionized adjusted to pH 7.4 (Bld) [Moles/Vol] 1.26 mmol/L Normal 1.08-1.30 [facility] Comment on above: Order Comment: Speci men Type: BLOOD SPECIMENOrdering Facility: [facility] Address: [address] [place] [address] Performed By: #### 1 995-0 ####[facility] LABCLIA [id number] MONICA RODRIGUEZ [place] [id number] [place] Comprehensive metabolic 2000 panelon 10-04-2024 Albumin [Mass/Vol] 4.2 g/dL 3.9 - 4.9 g/dL [facility] ALP [Catalytic activity/Vol] 71 U/L 34 - 123 U/L [facility] ALT [Catalytic activity/Vol] 20 U/L 7 - 38 U/L [facility] Anion gap [Moles/Vol] 12 mmol/L 8 - 15 mmol/L [facility] AST [Catalytic activity/Vol] 22 U/L 13 - 35 U/L [facility] Bilirubin [Mass/Vol] 0.5 mg/dL 0.2 - 1 .3 mg/dL [facility] Calcium [Mass/Vol] 9.6 mg/dL 8.5 - 10. 2 mg/dL [facility] Chloride [Moles/Vol] 103 mmol/L 98 - 10 7 mmol/L [facility] CO2 [Moles/Vol] 28 mmol/L 22 - 30 mmol/L [facility] Creatinine [Mass/Vol] 0.84 mg/dL 0.58 - 0.96 mg/dL [facility] GFR/1.73 sq M.predicted among non-blacks MDRD (S/P/Bld) [Vol rate/Area] 70 mL/min/{1.73_m2} - PINF [facility] Comment on above: Estimated Glomerular Filtration [...] 117 mg/dL High 74 - 99 mg/dL [facility] Comment on above: The [place] Diabete s Association (ADA) provides guidance for [...] Standards of Medical Care in Diabetes 2016, [place] Diabetes Association. Diabetes Care. 2016.39(Suppl 1). Potassium [Moles/Vol] 3.8 mmol/L 3.7 - 5.1 mmol/L [facility] Protein [Mass/Vol] 6.4 g/dL 6.3 - 8.0 g/dL [facility] Sodium [Moles/Vol] 143 mmol/L 136 - 144 mmol/L [facility] Urea nitrogen [Mass/Vol] 21 mg/dL 7 - 21 mg/d L [facility] Albumin [Mass/Vol] 4.2 g/dL Normal 3.9-4.9 [facility] Comment on above: Order Comment: Ashley davey Type: BLOOD SPECIMENOrdering Facility: [facility] Address: [address] [place] [address] Performed By: #### 2 4323-8, 2730-11, ####[facility] LABCLIA [id number] [place] [address] [place] ALP [Catalytic activity/Vol] 71 U/L Normal 34-123 [facility] Comment on above: Order Comment: Ashley davey Type: BLOOD SPECIMENOrdering Facility: [facility] Address: [address] [place] [address] Performed By: #### 2 4323-8, 2730-11, ####[facility] LABCLIA [id number] [place] [address] [place] ALT [Catalytic activity/Vol] 20 U/L Normal 7-38 [facility] Comment on above: Order Comment: Alli petar Type: BLOOD SPECIMENOrdering Facility: [facility] Address: [address] [place] [address] Performed By: #### 2 4323-8, 2730-11, ####[facility] LABCLIA [id number] [place] [id number] [place] Anion gap [Moles/Vol] 12 mmol/L Normal 8-15 [facility] Comment on above: Order Comment: Speci men Type: BLOOD SPECIMENOrdering Facility: [facility] Address: [address] [place] [address] Performed By: #### 2 4323-8, 8, ####[facility] LABCLIA [id number] [place] [address] [place] AST [Catalytic activity/Vol] 22 U/L Normal 13-35 [facility] Comment on above: Order Comment: Speci men Type: BLOOD SPECIMENOrdering Facility: [facility] Address: [address] [place] [address] Performed By: #### 2 4323-8, 8, ####[facility] LABCLIA [id number] [place] [address] [place] Bilirubin [Mass/Vol] 0.5 mg/dL Normal 0.2-1.3 [facility] Comment on above: Order Comment: Speci men Type: BLOOD SPECIMENOrdering Facility: [facility] Address: [address] [place] [address] Performed By: #### 2 4323-8, 8, ####[facility] LABCLIA [id number] [place] [id number] [place] Calcium [Mass/Vol] 9.6 mg/dL Normal 8.5-10.2 [facility] Comment on above: Order Comment: Speci men Type: BLOOD SPECIMENOrdering Facility: [facility] Address: [address] [place] [address] Performed By: #### 2 4323-8, 8, ####[facility] LABCLIA [id number] [place] [id number] [place] Chloride [Moles/Vol] 103 mmol/L Normal 98-107 [facility] Comment on above: Order Comment: Speci men Type: BLOOD SPECIMENOrdering Facility: [facility] Address: [address] [place] [address] Performed By: #### 2 4323-8, 2730-8, ####[facility] LABCLIA [id number] [place] [id number] [place] CO2 [Moles/Vol] 28 mmol/L Normal 22-30 [facility] Comment on above: Order Comment: Speci men Type: BLOOD SPECIMENOrdering Facility: [facility] Address: [address] [place] [address] Performed By: #### 2 4323-8, 2730-8, ####[facility] LABCLIA [id number] [place] [address] [place] Creatinine [Mass/Vol] 0.84 mg/dL Normal 0.58-0.96 [facility] Comment on above: Order Comment: Speci men Type: BLOOD SPECIMENOrdering Facility: [facility] Address: [address] [place] [address] Performed By: #### 2 4323-8, 8, ####[facility] LABCLIA [id number] [place] [address] [place] Creatinine and Glomerular filtration rate.predicted panel (S/P/Bld) 70 mL/min/1.73m??? Normal >=60 [facility] Comment on above: Order Comment: Speci men Type: BLOOD SPECIMENOrdering Facility: [facility] Address: [address] [place] [address] Result Comment: Rashida mated Glomerular Filtration Rate [...] GFR. Performed By: #### 2 4323-8, 2730-11, ####[facility] LABCLIA [id number] [facility] [address] [address] [place] Glucose [Mass/Vol] 117 mg/dL High 74-99 [facility] Comment on above: Order Comment: Speci men Type: BLOOD SPECIMENOrdering Facility: [facility] Address: [address] [place] [id number] Result Comment: The [place] Diabetes Association (ADA) provides guidance for cutoff [...] Standards of Medical Care in Diabetes 2016, [place] Diabetes Association. Diabetes Care. 2016.39(Suppl 1). Performed By: #### 2 4323-8, 2730-11, ####[facility] LABCLIA [id number] [facility] [address] [address] [place] Potassium [Moles/Vol] 3.8 mmol/L Normal 3.7-5.1 [facility] Comment on above: Order Comment: Speci men Type: BLOOD SPECIMENOrdering Facility: [facility] Address: [address] [place] [address] Performed By: #### 2 4323-8, 2730-11, ####[facility] LABCLIA [id number] [facility] [id number] [address] [place] Protein [Mass/Vol] 6.4 g/dL Normal 6.3-8.0 [facility] Comment on above: Order Comment: Speci men Type: BLOOD SPECIMENOrdering Facility: [facility] Address: [address] [place] [address] Performed By: #### 2 4323-8, 2730-11, ####[facility] LABCLIA [id number] [address] [address] [place] Sodium [Moles/Vol] 143 mmol/L Normal 136-144 [facility] Comment on above: Order Comment: Speci men Type: BLOOD SPECIMENOrdering Facility: [facility] Address: [address] [place] [address] Performed By: #### 2 4323-8, 2730-11, ####[facility] LABCLIA [id number] [address] [address] [place] Urea nitrogen [Mass/Vol] 21 mg/dL Normal 7-21 [facility] Comment on above: Order Comment: Speci men Type: BLOOD SPECIMENOrdering Facility: [facility] Address: [address] [place] [address] Performed By: #### 2 4323-8, 2730-11, ####[facility] LABCLIA [id number] [address] [address] [place] MAGNESIUMon 10-04-2024 Magnesium [Mass/Vol] 2.1 mg/dL 1.7 - 2 .3 mg/dL [facility] Magnesium SerPl-mCncon 10-04 Magnesium [Mass/Vol] 2.1 mg/dL Normal 1.7-2.3 [facility] Comment on above: Order Comment: Speci men Type: BLOOD SPECIMENOrdering Facility: [facility] Address: [address] [place] [address] Performed By: #### 2 4323-8, 2730-11, ####[facility] LABCLIA [id number] [address] [address] [place] Magnesium [Mass/Vol]on 10-04 Interpretation and review of laboratory results Normal [facility] No Panel Informationon 10-04 Interpretation and review of laboratory results Abnormal [facility] PTH INTACTon 10-04-2024 Parathyrin.intact [Mass/Vol] 124 pg/mL High 15 - 65 pg/mL [facility] PTH-Intact SerPl-mCncon 09-07 Parathyrin.intact [Mass/Vol] 124 pg/mL High 15-65 [facility] Comment on above: Order Comment: Speci men Type: BLOOD SPECIMENOrdering Facility: [facility] Address: [address] [place] [address] Performed By: #### 2 4323-8, 2731-8, 03624-0 ####[facility] LABCLIA [id number] [address] [place] VITAMIN D 25 HYDROXYon 10-04 25-hydroxyvitamin D3 [Mass/Vol] 29.6 ng/mL Low 31.0 - 80.0 ng/mL [facility] Comment on above: Classification of 25 [place] Vitamin D status: Deficiency/Insufficiency: < or = 30 ng/ml. Sufficiency/Optimal Levels: 31-80 ng/mL Toxicity: > 100 ng/mL. Test performed by chemiluminescent immunoassay. CNOVon 06-24-2024 CNOV Office Visit (ORHSMN) JANYKESHA L ([id number]) 1945 F Date Time Provider Department 06/24/24 8:30 AM [facility] During your visit today, we recorded the following information about you: Dayanna Lewis MD 06/24/2024 8:58 AM Signed [facility] NOTE Department of Orthopaedics Dayanna Lewis M.D. NAME: Kesha Curiel [facility] NO.: [id number] DATE: June 24, 2024 Kesha returns for [...] voiced understanding of these instructions. Informed Consent [place] Protocol A moment to CARE was completed. [...] [78] Pain (more content not included)... Normal [facility] Large Joint Arthro/Inj: bila teral glenohumeralson [...] voiced understanding of these instructions. Informed Consent [place] Protocol A moment to CARE was completed. [...] assessment and interventions applicable. No implant(s) inserted. [facility] XR SHLDR >/=3V AP/LUIS AP/OTH R [...] PT STATES RIGHT ROTATOR CUFF TEAR (accession [id number]), PT STATES LEFT SHOULDER ROTATOR CUFF TEAR (accession [id number]) Rotator cuff tear arthropathy, right Rotator cuff [...] osteoarthritis. COMBINED IMPRESSION: Degenerative changes as described. Carpenter Foreman: [facility] Transcribe Date/Time: Jun 22 2024 8:45P Dictated by : JOHANNA FLORES MD This examination was interpreted and the report reviewed and electronically signed by: JOHANNA FLORES MD on Jun 22 2024 8:46PM EST [id number] CN Normal [facility] XR SHLDR >/=3V AP/LUIS AP/OTH R [...] PT STATES RIGHT ROTATOR CUFF TEAR (accession [id number]), PT STATES LEFT SHOULDER ROTATOR CUFF TEAR (accession [id number]) Rotator cuff tear arthropathy, right Rotator cuff [...] osteoarthritis. COMBINED IMPRESSION: Degenerative changes as described. Carpenter Foreman: [facility] Transcribe Date/Time: Jun 22 2024 8:45P Dictated by : JOHANNA FLORES MD This examination was interpreted and the report reviewed and electronically signed by: JOHANNA FLORES MD on Jun 22 2024 8:46PM EST [id number] CN Normal [facility] CNTHERAPYon 06-07-2024 CNTHERAPY OT/PT/Speech Visit (PTWS) KESHA CARMICHAEL ([id number]) 1945 F Date Time Provider Department 06/07/24 10:15 AM BLOSSOM WHITE PTWS Date Time Provider Department Center 06/07/2024 10:15 AM [id number]-SBLOSSOM WHITE PTSTEVEN Martínez Reason for Visit: PT [...] tablet by mouth once daily. - vit C,X-Hw-wttfz-lutein- zeaxan (PRESERVISION AREDS-2) 250-90-40-1 mg Take 1 capsule by mouth twice daily with meals. - Cholecalciferol, Vitamin D3, 50 mcg (2,000 unit) cap Take 1 capsule by mouth once daily. - thiamine HCl (VITAMIN B-1 ORAL) Take 250 mg by mouth once daily. - multivitamins(DAILY MULTIVITAMIN TAB) Take one(1) tablet daily. Normal [facility] 25(OH)D3 SerPl-ncon 2024 25-hydroxyvitamin D3 [Mass/Vol] 36.6 ng/mL Normal 31.0-80.0 [facility] Comment on above: Order Comment: Speci men Type: BLOOD SPECIMENOrdering Facility: [facility] Address: [address] [place] [address] Performed By: #### 1 989-3 ####[facility] LABIA [id number] [place] [address] [place] ALBUMIN/CREATININE RATIO, UR INEon 05-27-2024 Albumin DL <= 20 mg/L (U) [Mass/Vol] 14.9 mg/L Normal [facility] Comment on above: Order Comment: Speci men Type: URINE SPECIMENOrdering Facility: [facility] Address: [address] [place] [address] Performed By: #### U ACR ####[facility] LABCLIA [id number] [place] [address] [place] Albumin/Creatinine (U) [Mass ratio] 48 mg/g High <30 [facility] Comment on above: Order Comment: Speci men Type: URINE SPECIMENOrdering Facility: [facility] Address: [address] [place] [address] Result Comment: Adul t Male and Female Nephrotic Criteria: <30 mg/g is considered normal to mildly increased 30-300 mg/g is considered moderately increased >300 mg/g is considered severely increased KDIGO. (2013). KDIGO 2012 Clinical Practice Guideline for the Evaluation and Management of Chronic Kidney Disease. Official Journal of the International Society of Nephrology, 3(1), 1-150. Performed By: #### U ACR ####[facility] LABCLIA [id number] [place] [address] [place] Creatinine (U) [Mass/Vol] 30.8 mg/dL Normal 20.0-300.0 [facility] Comment on above: Order Comment: Speci men Type: URINE SPECIMENOrdering Facility: [facility] Address: [address] [place] [address] Performed By: #### U ACR ####[facility] LABCLIA [id number] [place] [address] [place] [facility] CBC W Auto Differential pane l (Bld)on 05-27-2024 Basophils (Bld) [#/Vol] 0.05 10*3/uL Normal <0.11 [facility] Comment on above: Order Comment: Speci men Type: BLOOD SPECIMENOrdering Facility: [facility] Address: [address] [place] [address] Performed By: #### 5 7021-8 ####[facility] LABCLIA [id number] [place] [address] [place] Basophils/100 WBC (Bld) 1.0 % Normal [facility] Comment on above: Order Comment: Speci men Type: BLOOD SPECIMENOrdering Facility: [facility] Address: [address] [place] [address] Performed By: #### 5 7021-8 ####[facility] LABCLIA [id number] [address] [id number] [address] [place] Differential cell count method Nom (Bld) Auto Normal [facility] Comment on above: Order Comment: Speci men Type: BLOOD SPECIMENOrdering Facility: [facility] Address: [address] [place] [address] Performed By: #### 5 7021-8 ####[facility] LABCLIA [id number] [place] [address] [place] Eosinophils (Bld) [#/Vol] 0.33 10*3/uL Normal <0.46 [facility] Comment on above: Order Comment: Speci men Type: BLOOD SPECIMENOrdering Facility: [facility] Address: [address] [place] [address] Performed By: #### 5 7021-8 ####[facility] LABCLIA [id number] [place] [address] [place] Eosinophils/100 WBC (Bld) 6.3 % Normal [facility] Comment on above: Order Comment: Speci men Type: BLOOD SPECIMENOrdering Facility: [facility] Address: [address] [place] [address] Performed By: #### 5 7021-8 ####[facility] LABCLIA [id number] [place] [address] [place] Erythrocyte distribution width (RBC) [Ratio] 13.1 % Normal 11.5-15.0 [facility] Comment on above: Order Comment: Speci men Type: BLOOD SPECIMENOrdering Facility: [facility] Address: [address] [place] [address] Performed By: #### 5 7021-8 ####[facility] LABCLIA [id number] [place] [address] [place] Hematocrit (Bld) [Volume fraction] 45.2 % Normal 36.0-46.0 [facility] Comment on above: Order Comment: Speci men Type: BLOOD SPECIMENOrdering Facility: [facility] Address: [address] [place], [place] [address] Performed By: #### 5 7021-8 ####[facility] LABCLIA [id number] [place] [address] [place] Hemoglobin (Bld) [Mass/Vol] 14.4 g/dL Normal 11.5-15.5 [facility] Comment on above: Order Comment: Speci men Type: BLOOD SPECIMENOrdering Facility: [facility] Address: [address] [place] [address] Performed By: #### 5 7021-8 ####[facility] LABCLIA [id number] [place] [address] [place] Immature granulocytes (Bld) [#/Vol] 10*3/uL Normal <0.10 [facility] Comment on above: Order Comment: Speci men Type: BLOOD SPECIMENOrdering Facility: [facility] Address: [address] [place] [address] Performed By: #### 5 7021-8 ####[facility] LABCLIA [id number] [place] [address] [place] Immature granulocytes/100 WBC (Bld) 0.2 % Normal [facility] Comment on above: Order Comment: Speci men Type: BLOOD SPECIMENOrdering Facility: [facility] Address: [address] [place] [address] Performed By: #### 5 7021-8 ####[facility] LABCLIA [id number] [place] [address] [place] Lymphocytes (Bld) [#/Vol] 1.56 10*3/uL Normal 1.00-4.00 [facility] Comment on above: Order Comment: Speci men Type: BLOOD SPECIMENOrdering Facility: [facility] Address: [address] [place] [address] Performed By: #### 5 7021-8 ####[facility] LABCLIA [id number] [address] [place] Lymphocytes/100 WBC (Bld) 29.8 % Normal [facility] Comment on above: Order Comment: Speci men Type: BLOOD SPECIMENOrdering Facility: [facility] Address: [address] [place] [address] Performed By: #### 5 7021-8 ####[facility] LABCLIA [id number] [place] [address] [place] MCH (RBC) [Entitic mass] 30.4 pg Normal 26.0-34.0 [facility] Comment on above: Order Comment: Speci men Type: BLOOD SPECIMENOrdering Facility: [facility] Address: [address] [place] [address] Performed By: #### 5 7021-8 ####[facility] LABIA [id number] [place] [address] [place] MCHC (RBC) [Mass/Vol] 31.9 g/dL Normal 30.5-36.0 [facility] Comment on above: Order Comment: Speci men Type: BLOOD SPECIMENOrdering Facility: [facility] Address: [address] [place] [address] Performed By: #### 5 7021-8 ####[facility] LABIA [id number] [place] [address] [place] MCV (RBC) [Entitic vol] 95.6 fL Normal 80.0-100.0 [facility] Comment on above: Order Comment: Speci men Type: BLOOD SPECIMENOrdering Facility: [facility] Address: [address] [place] [address] Performed By: #### 5 7021-8 ####[facility] LABIA [id number] [place] [address] [place] Monocytes (Bld) [#/Vol] 0.34 10*3/uL Normal <0.87 [facility] Comment on above: Order Comment: Speci men Type: BLOOD SPECIMENOrdering Facility: [facility] Address: [address] [place] [address] Performed By: #### 5 7021-8 ####[facility] LABCLIA [id number] [place] [address] [place] Monocytes/100 WBC (Bld) 6.5 % Normal [facility] Comment on above: Order Comment: Speci men Type: BLOOD SPECIMENOrdering Facility: [facility] Address: [address] [place] [address] Performed By: #### 5 7021-8 ####[facility] LABCLIA [id number] [place] [address] [place] Neutrophils (Bld) [#/Vol] 2.94 10*3/uL Normal 1.45-7.50 [facility] Comment on above: Order Comment: Speci men Type: BLOOD SPECIMENOrdering Facility: [facility] Address: [address] [place] [address] Performed By: #### 5 7021-8 ####[facility] LABCLIA [id number] [place] [address] [place] Neutrophils/100 WBC (Bld) 56.2 % Normal [facility] Comment on above: Order Comment: Speci men Type: BLOOD SPECIMENOrdering Facility: [facility] Address: [address] [place] [address] Performed By: #### 5 7021-8 ####[facility] LABCLIA [id number] [place] [address] [place] Nucleated RBC (Bld) [#/Vol] 10*3/uL Normal <0.01 [facility] Comment on above: Order Comment: Speci men Type: BLOOD SPECIMENOrdering Facility: [facility] Address: [address] [place] [address] Performed By: #### 5 7021-8 ####[facility] LABCLIA [id number] [place] [address] [place] Nucleated RBC/100 WBC (Bld) [Ratio] 0.0 /100 WBC Normal [facility] Comment on above: Order Comment: Speci men Type: BLOOD SPECIMENOrdering Facility: [facility] [facility] Address: [address] [place] [address] Performed By: #### 5 7021-8 ####[facility] LABCLIA [id number] [place] [address] [place] Platelet mean volume (Bld) [Entitic vol] 10.4 fL Normal 9.0-12.7 [facility] Comment on above: Order Comment: Speci men Type: BLOOD SPECIMENOrdering Facility: [facility] Address: [address] [place] [address] Performed By: #### 5 7021-8 ####[facility] LABCLIA [id number] [place] [address] [place] Platelets (Bld) [#/Vol] 274 10*3/uL Normal 150-400 [facility] Comment on above: Order Comment: Speci men Type: BLOOD SPECIMENOrdering Facility: [facility] Address: [address] [place] [address] Performed By: #### 5 7021-8 ####[facility] LABIA [id number] [place] [address] [place] RBC (Bld) [#/Vol] 4.73 10*6/uL Normal 3.90-5.20 [facility] Comment on above: Order Comment: Speci men Type: BLOOD SPECIMENOrdering Facility: [facility] Address: [address] [place] [address] Performed By: #### 5 7021-8 ####[facility] LABCLIA [id number] [place] [address] [place] WBC (Bld) [#/Vol] 5.23 10*3/uL Normal 3.70-11.00 [facility] Comment on above: Order Comment: Speci men Type: BLOOD SPECIMENOrdering Facility: [facility] Address: [address] [place] [address] Performed By: #### 5 7021-8 ####[facility] LABCLIA [id number] [place] RODRIGUEZ [id number] [facility] CNOVon 05-27-2024 CNOV Office Visit (FAMPWS) KESHA CARMICHAEL ([id number]) 1945 F Date Time Provider Department 05/27/24 8:40 AM [facility]KYS [facility] During your visit today, we recorded the following information about you: Temperature Pulse Blood pressure Weight 97.4 degrees 61/minute 132/80 93 kg Belkys Mcintyre, OPTOMETRIST.DIAGRAM CLERK 05/27/2024 9:12 AM Signed This is a 79 year old female who presents today with: Patient presents with: Fall: Fell while in [place] one week ago HISTORY OF PRESENT ILLNESS: Kesha Carmichael is a 79 year old female. Patient presents with: Fall: Fell while in [place] one week ago While in [place] visiting sister, there was a mishap with [...] HISTORY Diagnosis Date Abnormal EKG afib, inf CA age undetermined Atrial fibrillation (HCC) Breast cancer (HCC) 03/2018 left breast Closed fracture of right distal radius 09/10/2021 Congestive heart failure ([facility]) 09/24/2018 Epistaxis balloon out osteo History of colonoscopy [address] Stoney Hernandez , normal HTN (hypertension) Hyperglycemia Knee pain, chronic Lt Migraines stopped when she retired Normal cardiac stress test 2004 Dr. Romero Osteoarthritis Seasonal allergies Type 2 diabetes mellitus without complication, without long-term current use of insulin ([facility]) 04/11/2016 PAST SURGICAL HISTORY Procedure [...] 1 tablet by mouth once daily. vit C,N-Ym-anwuk-lutein- zeaxan (PRESERVISION AREDS-2) 250-90-40-1 mg Take 1 [...] Mother Hypertension Mother Hypertension Father Heart Father CA Diabetes Father Kidney Disease Sister Heart disease [...] Grandfather Socia (more content not included)... Normal [facility] Calcium.ionized [Moles/Vol]o n 05-27-2024 Calcium.ionized (Bld) [Mass/Vol] 1.34 mmol/L High 1.08-1.30 [facility] Comment on above: Order Comment: Speci men Type: BLOOD SPECIMENOrdering Facility: [facility] Address: [address] [place] [address] Performed By: #### 1 995-0 ####[facility] LABCLIA [id number] [place] [address] [place] Calcium.ionized adjusted to pH 7.4 (Bld) [Moles/Vol] 1.29 mmol/L Normal 1.08-1.30 [facility] Comment on above: Order Comment: Speci men Type: BLOOD SPECIMENOrdering Facility: [facility] Address: [address] [place] [address] Performed By: #### 1 995-0 ####[facility] LABCLIA [id number] [address] [address] [place] Comprehensive metabolic 2000 panelon 05-27-2024 Albumin [Mass/Vol] 4.2 g/dL Normal 3.9-4.9 [facility] Comment on above: Order Comment: Speci men Type: BLOOD SPECIMENOrdering Facility: [facility] Address: [address] [place] [address] Performed By: #### 2 4323-8, LIPNF, 47349-5, 6-3 ####[facility] LABCLIA [id number] [place] [address] [place] ALP [Catalytic activity/Vol] 72 U/L Normal 34-123 [facility] Comment on above: Order Comment: Speci men Type: BLOOD SPECIMENOrdering Facility: [facility] Address: [address] [place] [address] Performed By: #### 2 4323-8, LIPNF, 22030-3, 6-3 ####[facility] LABCLIA [id number] [place] [address] [place] ALT [Catalytic activity/Vol] 21 U/L Normal 7-38 [facility] Comment on above: Order Comment: Speci men Type: BLOOD SPECIMENOrdering Facility: [facility] Address: [address] [place] [address] Performed By: #### 2 4323-8, LIPNF, 81135-5, 6-3 ####[facility] LABCLIA [id number] [place] [id number] [place] Anion gap [Moles/Vol] 9 mmol/L Normal 8-15 [facility] Comment on above: Order Comment: Speci men Type: BLOOD SPECIMENOrdering Facility: [facility] Address: [address] [place] [address] Performed By: #### 2 4323-8, LIPNF, 74289-7, 6-3 ####[facility] LABCLIA [id number] [place] [address] [place] AST [Catalytic activity/Vol] 24 U/L Normal 13-35 [facility] Comment on above: Order Comment: Speci men Type: BLOOD SPECIMENOrdering Facility: [facility] Address: [address] [place] [address] Performed By: #### 2 4323-8, LIPNF, 06031-7, 6-3 ####[facility] LABCLIA [id number] [place] [address] [place] Bilirubin [Mass/Vol] 0.4 mg/dL Normal 0.2-1.3 [facility] Comment on above: Order Comment: Speci men Type: BLOOD SPECIMENOrdering Facility: [facility] Address: [address] [place] [address] Performed By: #### 2 4323-8, LIPNF, , 3015-3 ####[facility] LABIA [id number] [place] [address] [place] Calcium [Mass/Vol] 10.5 mg/dL High 8.5-10.2 [facility] Comment on above: Order Comment: Speci men Type: BLOOD SPECIMENOrdering Facility: [facility] Address: [address] [place] [address] Performed By: #### 2 4323-8, LIPNF, 16392-2, 3015-3 ####[facility] LABCLIA [id number] [place] [address] [place] Chloride [Moles/Vol] 103 mmol/L Normal 98-107 [facility] Comment on above: Order Comment: Speci men Type: BLOOD SPECIMENOrdering Facility: [facility] Address: [address] [place] [address] Performed By: #### 2 4323-8, LIPNF, 31012-4, 6-3 ####[facility] LABCLIA [id number] [place] [address] [place] CO2 [Moles/Vol] 31 mmol/L High 22-30 [facility] Comment on above: Order Comment: Speckarl davey Type: BLOOD SPECIMENOrdering Facility: [facility] Address: [address] [place] [address] Performed By: #### 2 4323-8, LIPNF, 16965-8, 3015-3 ####[facility] LABCLIA [id number] [place] [address] [place] Creatinine [Mass/Vol] 0.90 mg/dL Normal 0.58-0.96 [facility] Comment on above: Order Comment: Speci men Type: BLOOD SPECIMENOrdering Facility: [facility] Address: [address] [place] [address] Performed By: #### 2 4323-8, LIPNF, , 3015-3 ####[facility] LABCLIA [id number] [place] [address] [place] Creatinine and Glomerular filtration rate.predicted panel (S/P/Bld) 65 mL/min/1.73m??? Normal >=60 [facility] Comment on above: Order Comment: Ashley davey Type: BLOOD SPECIMENOrdering Facility: [facility] Address: [address] [place] [address] Result Comment: Rashida mated Glomerular Filtration Rate [...] GFR. Performed By: #### 2 4323-8, LIPNF, 56434-6, 3015-3 ####[facility] LABCLIA [id number] [place] [address] [place] Glucose [Mass/Vol] 118 mg/dL High 74-99 [facility] Comment on above: Order Comment: Speci men Type: BLOOD SPECIMENOrdering Facility: [facility] Address: [address] [place] [address] Result Comment: The [place] Diabetes Association (ADA) provides guidance for cutoff [...] Standards of Medical Care in Diabetes 2016, [place] Diabetes Association. Diabetes Care. 2016.39(Suppl 1). Performed By: #### 2 4323-8, LIPNF, 11949-9, 6-3 ####[facility] LABCLIA [id number] [place] [address] [place] Potassium [Moles/Vol] 4.5 mmol/L Normal 3.7-5.1 [facility] Comment on above: Order Comment: Ashley davey Type: BLOOD SPECIMENOrdering Facility: [facility] Address: [address] [place] [address] Performed By: #### 2 4323-8, LIPNF, 06396-0, 6-3 ####[facility] LABCLIA [id number] [place] [address] [place] Protein [Mass/Vol] 7.0 g/dL Normal 6.3-8.0 [facility] Comment on above: Order Comment: Alli men Type: BLOOD SPECIMENOrdering Facility: [facility] Address: [address] [place] [address] Performed By: #### 2 4323-8, LIPNF, 03769-0, 6-3 ####[facility] LABCLIA [id number] [place] [id number] [place] Sodium [Moles/Vol] 143 mmol/L Normal 136-144 [facility] Comment on above: Order Comment: Speci men Type: BLOOD SPECIMENOrdering Facility: [facility] Address: [address] [place] [address] Performed By: #### 2 4323-8, LIPNF, 89470-8, 3016-3 ####[facility] LABCLIA [id number] [place] [address] [place] Urea nitrogen [Mass/Vol] 18 mg/dL Normal 7-21 [facility] Comment on above: Order Comment: Alli men Type: BLOOD SPECIMENOrdering Facility: [facility] Address: [address] [place] [address] Performed By: #### 2 4323-8, LIPNF, 75952-3, 6-3 ####[facility] LABIA [id number] [place] [address] [place] HbA1c (Bld)on 05-27-2024 Average glucose Estimated from glycated hemoglobin (Bld) [Mass/Vol] 131 mg/dL Normal [facility] Comment on above: Order Comment: Ashley davey Type: BLOOD SPECIMENOrdering Facility: [facility] Address: [address] [place] [address] Result Comment: eAG: (Estimated average glucose) is a calculated value from HgbA1c and is front desk representative of the average blood glucose level in the last 2-3 month period. Performed By: #### 5 5454-3 ####[facility] LABCLIA [id number] [place] [address] [place] HbA1c (Bld) [Mass fraction] 6.2 % High 4.3-5.6 [facility] Comment on above: Order Comment: Ashley men Type: BLOOD SPECIMENOrdering Facility: [facility] Address: [address] [place] [address] Result Comment: Amer ican Diabetes Association guidelines indicate that patients with HgbA1c in the range 5.7-6.4% are at increased risk for development of diabetes, and intervention by lifestyle modification may be beneficial. HgbA1c greater or equal to 6.5% is considered diagnostic of diabetes. Performed By: #### 5 5454-3 ####[facility] LABCLIA [id number] [place] [address] [place] LIPID PANEL, NONFASTINGon Cholesterol [Mass/Vol] 170 mg/dL Normal <200 [facility] Comment on above: Order Comment: Speci men Type: BLOOD SPECIMENOrdering Facility: [facility] Address: [address] [place] [address] Result Comment: <200 mg/dL, Desirable 200-239 mg/dL, Borderline high >239 mg/dL, High Performed By: #### 2 4323-8, LIPNF, 17035-9, 3016-3 ####[facility] LABCLIA [id number] [place] [address] [place] HDL CHOLESTEROL, NF 50 mg/dL Normal >39 [facility] Comment on above: Order Comment: Alli men Type: BLOOD SPECIMENOrdering Facility: [facility] Address: [address] [place] [address] Result Comment: 40-5 9 mg/dL, Acceptable >59 mg/dL, High: Negative risk factor for coronary heart disease <40 mg/dL, Low: Positive risk factor for coronary heart disease Performed By: #### 2 4323-8, LIPNF, 52900-3, 3016-3 ####[facility] LABIA [id number] [address] [place] LDL CHOLESTEROL, NF 90 mg/dL Normal <100 [facility] Comment on above: Order Comment: Alli men Type: BLOOD SPECIMENOrdering Facility: [facility] Address: [address] [place] [address] Result Comment: <100 mg/dL, Optimal 100-129 mg/dL, Near optimal/above optimal 130-159 mg/dL, Borderline high 160-189 mg/dL, High >189 mg/dL, Very high Secondary prevention optimal LDL Cholesterol levels are recommended to be < 70 mg/dL Performed By: #### 2 4323-8, LIPNF, , 3015-3 ####[facility] LABCLIA [id number] [place] [address] [place] LDL/HDL RATIO, NF 1.80 mg/dL Normal <2.54 [facility] Comment on above: Order Comment: Speci men Type: BLOOD SPECIMENOrdering Facility: [facility] Address: [address] [place] [address] Result Comment: Refe rence: 1. National Cholesterol Education Program ATP III Guideline At-A-Glance Quick Desk Reference: National Heart, Lung, and Blood [place]. National Institutes of Health. 2001: NIH Publication No. 01-3305. 2. An International Atherosclerosis Society position paper: global recommendations for the management of dyslipidemia: executive summary, Atherosclerosis. 2014: 232(2):410-413. Performed By: #### 2 4323-8, LIPNF, , 3015-06 ####[facility] LABCLIA [id number] [address] [place] NON HDL CHOL, NF 120 mg/dL Normal <130 [facility] Comment on above: Order Comment: Alli men Type: BLOOD SPECIMENOrdering Facility: [facility] Address: [address] [place] [address] Result Comment: <130 mg/dL, Optimal 130-159 mg/dL, Near optimal/above optimal 160-189 mg/dL, Borderline high 190-219 mg/dL, High >219 mg/dL, Very high Secondary prevention optimal non HDL Cholesterol levels are recommended to be <100 mg/dL Performed By: #### 2 4323-8, LIPNF, 49684-9, 3015-3 ####[facility] LABCLIA [id number] [place] [address] [place] T CHOL/HDL RATIO NF 3.40 mg/dL Normal <5.10 [facility] Comment on above: Order Comment: Speci men Type: BLOOD SPECIMENOrdering Facility: [facility] Address: [address] [place] [address] Performed By: #### 2 4323-8, LIPNF, , 3015-3 ####[facility] LABCLIA [id number] [address] [address] [place] TRIGLYCERIDES, NF 148 mg/dL Normal <150 [facility] Comment on above: Order Comment: Speci men Type: BLOOD SPECIMENOrdering Facility: [facility] Address: [address] [place] [address] Result Comment: <150 mg/dL, Normal 150-199 mg/dL, Borderline high 200-499 mg/dL, High >499 mg/dL, Very high Performed By: #### 2 4323-8, LIPNF, , 3015-3 ####[facility] LABCLIA [id number] [place] [address] [place] VLDL CHOLESTEROL, NF 30 mg/dL High <30 [facility] Comment on above: Order Comment: Speci men Type: BLOOD SPECIMENOrdering Facility: [facility] Address: [address] [place] [address] Performed By: #### 2 4323-8, LIPNF, , 3015-3 ####[facility] LABCLIA [id number] [place] [address] [place] Magnesium SerPl-mCncon 05-27 Magnesium [Mass/Vol] 2.2 mg/dL Normal 1.7-2.3 [facility] Comment on above: Order Comment: Speci men Type: BLOOD SPECIMENOrdering Facility: [facility] Address: [address] [place] [address] Performed By: #### 2 4323-8, LIPNF, , 3015-3 ####[facility] LABCLIA [id number] [place] [address] [place] PTH-Intact SerPl-mCncon - Parathyrin.intact [Mass/Vol] 69 pg/mL High 15-65 [facility] Comment on above: Order Comment: Speci men Type: BLOOD SPECIMENOrdering Facility: [facility] Address: [address] [place] [address] Performed By: #### 2 132-9, 2731-8 ####[facility] LABIA [id number] [place] [address] [place] TSH SerPl-aCncon 05-27-2024 TSH Qn 1.470 m[IU]/L Normal 0.270-4.200 [facility] Comment on above: Order Comment: Speci men Type: BLOOD SPECIMENOrdering Facility: [facility] Address: [address] [place] [address] Performed By: #### 2 4323-8, LIPNF, 75591-7, 3016-3 ####[facility] [id number] [place] [address] [place] Vit B12 SerPl-mCncon 025 Cobalamin (Vitamin B12) [Mass/Vol] 373 pg/mL Normal 232-1245 [facility] Comment on above: Order Comment: Speci men Type: BLOOD SPECIMENOrdering Facility: [facility] Address: [address] [place] [address] Performed By: #### 2 132-9, 2731-8 ####[facility] [id number] [place] [id number] [place] XR HIP 3V [...] dislocation. IMPRESSION: Degenerative changes. No acute abnormality. Carpenter Foreman: PSCB Transcribe Date/Time: May 30 2024 10:49A Dictated by : JG HUGGINS MD This examination was interpreted and the report reviewed and electronically signed by: JG HUGGINS MD on May 30 2024 10:50AM EST [id number] Normal [facility] CNTHERAPYon 05-26-2024 CNTHERAPY OT/PT/Speech Visit (PTWS) TASNEEM CARMICHAELNDShaji Curiel ([id number]) 1945 F Date Time Provider Department 05/26/24 5:15 PM BLOSSOM WHITE PTWS Date Time Provider Department Center 05/26/2024 5:15 PM [id number] WHITE PTWS Chun Martínez Reason for Visit: [...] Date Reviewed: 04/19/2024 Reviewed by: Belkys Mcintyre APRN.DIAGRAM CLERK - Fully Assessed Prescriptions as of 05/26/2024 [...] tablet by mouth once daily. - vit C,J-Yk-jpita-lutein- zeaxan (PRESERVISION AREDS-2) 250-90-40-1 mg Take 1 capsule by mouth twice daily with meals. - Cholecalciferol, Vitamin D3, 50 mcg (2,000 unit) cap Take 1 capsule by mouth once daily. - thiamine HCl (VITAMIN B-1 ORAL) Take 250 mg by mouth once daily. - multivitamins(DAILY MULTIVITAMIN TAB) Take one(1) tablet daily. Normal [facility] CNTHERAPYon 05-24-2024 CNTHERAPY OT/PT/Speech Visit (PTWS) KESHA CARMICHAEL ([id number]) 1945 F Date Time Provider Department 05/24/24 9:30 AM BLOSSOM WHITE PTSTEVEN Date Time Provider Department [place] 05/24/2024 9:30 AM [id number] WHITE PTSTEVEN Martínez Reason for Visit: Physical [...] Date Reviewed: 04/19/2024 Reviewed by: Belkys Mcintyre APRN.DIAGRAM CLERK - Fully Assessed Prescriptions as of 05/24/2024 [...] tablet by mouth once daily. - vit C,X-Wk-zlxks-lutein- zeaxan (PRESERVISION AREDS-2) 250-90-40-1 mg Take 1 [...] % (flush) 10 mL (BD POSIFLUSH) Normal [facility] CNTHERAPYon 05-10-2024 CNTHERAPY OT/PT/Speech Visit (PTWS) KESHA CARMICHAEL ([id number]) 1945 F Date Time Provider Department 05/10/24 9:30 AM TANYA MEZA PTWS Date Time Provider Department Center 05/10/2024 9:30 AM [id number], MARIAH PTWS Chun Martínez Reason for Visit: [...] Date Reviewed: 04/19/2024 Reviewed by: Belkys Mcintyre APRN.DIAGRAM CLERK - Fully Assessed Prescriptions as of 05/10/2024 [...] tablet by mouth once daily. - vit C,W-Np-oyoak-lutein- zeaxan (PRESERVISION AREDS-2) 250-90-40-1 mg Take 1 [...] % (flush) 10 mL (BD POSIFLUSH) Normal [facility] [id number] 05-07-2024 [id number] HNO ID: [id number] Author: BLOSSOM WHITE PT Service: ? Author Type: Physical Therapist Type: [id number] Filed: 05/07/2024 10:46 Note Text: [facility] Physical Therapy Plan of Care Certification Patient Name: Kesha Carmichael : 1945 [facility] #: [id number] Date: 05/07/2024 To: Belkys Mcintyre A* From [...] Patient to be seen for Neuromuscular re-education (08679), Therapeutic exercise (71081), Manual therapy (80409), Therapeutic activities (08197), Self-skilled nursing management (09433), Gait Training (51046) PLAN FOR NEXT VISIT: Pt. leaves for [place] for a week on Friday and will return for PT visits For further details regarding this patient refer to the Physical Therapy electronically documented visit dated 05/07/2024. Provider Attestation I have reviewed the treatment plan for Kesha Carmichael, [facility]# [id number] for the period of 05/07/24 -- 06/18/24, established on 05/07/2024. Signature certifies the need for therapy services. Normal [facility] CNTHERAPYon 05-07-2024 CNTHERAPY OT/PT/Speech Visit (PTWS) KESHA CARMICHAEL ([id number]) 1945 F Date Time Provider Department 05/07/24 10:00 AM BLOSSOM WHITE PTWS Date Time Provider Department Center 05/07/2024 10:00 AM [id number] WHITE PTWS [place] Reason for Visit: [...] Date Reviewed: 04/19/2024 Reviewed by: Belkys Mcintyre APRN.DIAGRAM CLERK - Fully Assessed Prescriptions as of 05/07/2024 [...] tablet by mouth once daily. - vit C,M-Py-ltqzb-lutein- zeaxan (PRESERVISION AREDS-2) 250-90-40-1 mg Take 1 [...] 0.9 % (flush) 10 mL (BD POSIFLUSH) Back End Engineer: Therapy (PT/OT/Speech/Resp) ID: [id number] 05/07/2024 10:19 AM Author: BLOSSOM WHITE Signed by BLOSSOM WHITE PT on 05/07/2024 at 10:19 AM Document text: Program_ID:[id number] Access Code: [email or web address] URL: [email or web address] Date: 05-07-2024 Prepared By: Blossom White Program [...] 3 sets - 10 reps -------- Normal [facility] THERAPY NTon 05-07-2024 THERAPY NT HNO ID: [id number] Author: BLOSSOM WHITE PT Service: ? Author Type: Physical Therapist Type: Therapy (PT/OT/Speech/Resp) Filed: 05/07/2024 10:19 Note Text: Program_ID:[id number] Access Code: [email or web address] URL: [email or web address] [facility], [email or web address]/ Date: 05-07-2024 Prepared By: Blossom White Program [...] - 3 sets - 10 reps Normal [facility] CNTHERAPYon 05-03-2024 CNTHERAPY OT/PT/Speech Visit (PTWS) KESHA CARMICHAEL ([id number]) 1945 F Date Time Provider Department 05/03/24 8:45 AM BLOSSOM WHITE Date Time Provider Department Center 05/03/2024 8:45 AM [id number] WHITE Reason for Visit: Physical Therapy [503] [...] Date Reviewed: 04/19/2024 Reviewed by: Belkys Mcintyre APRN.DIAGRAM CLERK - Fully Assessed Prescriptions as of 05/03/2024 [...] tablet by mouth once daily. - vit C,U-Fa-vipzm-lutein- zeaxan (PRESERVISION AREDS-2) 250-90-40-1 mg Take 1 [...] % (flush) 10 mL (BD POSIFLUSH) Normal [facility] CNTHERAPYon 04-30-2024 CNTHERAPY OT/PT/Speech Visit (PTWS) KESHA CARMICHAEL ([id number]) 1945 F Date Time Provider Department 04/30/24 10:15 AM TANYA MEZA PTSTEVEN Date Time Provider Department Center 04/30/2024 10:15 AM [id number], MARIAH PTWS Chun Martínez Reason for Visit: [...] Date Reviewed: 04/19/2024 Reviewed by: Belkys Mcintyre APRN.DIAGRAM CLERK - Fully Assessed Prescriptions as of 04/30/2024 [...] tablet by mouth once daily. - vit C,Y-Lq-fwrkw-lutein- zeaxan (PRESERVISION AREDS-2) 250-90-40-1 mg Take 1 [...] % (flush) 10 mL (BD POSIFLUSH) Normal [facility] CNTHERAPYon 04-26-2024 CNTHERAPY OT/PT/Speech Visit (PTWS) KESHA CARMICHAEL ([id number]) 1945 F Date Time Provider Department 04/26/24 1:15 PM BLOSSOM WHITE Date Time Provider Department [place] 04/26/2024 1:15 PM [id number] WHITE [place] Reason for Visit: Physical [...] Date Reviewed: 04/19/2024 Reviewed by: Belkys Mcintyre APRN.DIAGRAM CLERK - Fully Assessed Prescriptions as of 04/26/2024 [...] tablet by mouth once daily. - vit C,F-Za-ozlpv-lutein- zeaxan (PRESERVISION AREDS-2) 250-90-40-1 mg Take 1 [...] % (flush) 10 mL (BD POSIFLUSH) [facility] K[facility] CARMICHAEL ([id number]) 1945 F Date Time Provider Department 04/22/24 [...] Date Reviewed: 04/19/2024 Reviewed by: Belkys Mcintyre APRN.DIAGRAM CLERK - Fully Assessed Prescriptions as of 04/22/2024 [...] tablet by mouth once daily. 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 Normal [facility] CNOVon 04-19-2024 CN Office Visit (MARZENAWS) KESHA CARMICHAEL ([id number]) 1945 F Date Time Provider Department 04/19/24 1:40 PM BELKYS MCINTYRESTEVEN During your visit today, we recorded the following information about you: Pulse Respiration Blood pressure Weight 76/minute 16/minute 128/84 94.8 kg Belkys Mcintyre APRN.DIAGRAM CLERK 04/19/2024 2:18 PM Signed This is a [...] HISTORY Diagnosis Date Abnormal EKG afib, inf CA age undetermined Atrial fibrillation (HCC) Breast cancer [...] long-term current use of insulin ([facility]) 04/11/2016 PAST SURGICAL HISTORY Procedure [...] 1 tablet by mouth once daily. vit C,Q-Ff-iwysi-lutein- zeaxan (PRESERVISION AREDS-2) 250-90-40-1 mg Take 1 [...] Mother Hypertension Mother Hypertension Father Heart Father CA Diabetes Father Kidney Disease Sister Heart disease [...] Drug us (more content not included)... Normal [facility] CNTHERAPYon 04-19-2024 CNTHERAPY OT/PT/Speech Visit (PTWS) KESHA CARMICHAEL ([id number]) 1945 F Date Time Provider Department 04/19/24 8:45 AM BLOSSOM WHITE PTWS Date Time Provider Department Center 04/19/2024 8:45 AM [id number] WHITE PTWS Chun Martínez Reason for Visit: [...] tablet by mouth once daily. - vit C,K-Da-rrdod-lutein- zeaxan (PRESERVISION AREDS-2) 250-90-40-1 mg Take 1 [...] % (flush) 10 mL (BD POSIFLUSH) Normal [facility] Pulmonary Visit Reporton Pulmonary Visit Report [facility] [place] 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 Normal [facility] 04-05-[address] [facility] Office Visit (SUMANTHWSTR) JANYKESHA Veena ([id number]) 1945 F Date Time Provider Department 04/05/24 2:40 PM ANUJ NAVARRO During your visit today, we recorded the following information about you: Pulse Respiration Blood pressure Weight 103/minute 14/minute 122/85 95.7 kg Height 1.499 m Anuj Navarro MD 04/05/2024 2:49 PM Signed [facility] Cardiology ([facility]) [address] [place] [id number] OUTPATIENT VISIT DATE 04/05/2024 PRIMARY CARE PHYSICIAN: Chip Arreola MD [address] [facility] [place] [address] HISTORY OF PRESENT ILLNESS: Ms. Carmichael is [...] HISTORY Diagnosis Date Abnormal EKG afib, inf CA age undetermined Atrial fibrillation (HCC) Breast cancer ([facility]) 03/2018 left breast Closed fracture of right distal radius 09/10/2021 Congestive heart failure ([facility]) 09/24/2018 Epistaxis balloon out osteo History of colonoscopy [address] Stoney Hernandez , normal HTN (hypertension) Hyperglycemia Knee pain, chronic Lt Migraines stopped when she retired Normal cardiac stress test 2004 Dr. Romero Osteoarthritis Seasonal allergies Type 2 diabetes mellitus without complication, without long-term current use of insulin ([facility]) 04/11/2016 PAST SURGICAL HISTORY Procedure [...] Mother Hypertension Mother Hypertension Father Heart Father CA Diabetes Father Kidney Disease Sister Heart disease [...] 1 tablet (more content not included)... Normal [facility] [id number] 03-29-2024 [id number] HNO ID: [id number] Author: BLOSSOM WHITE, PT Service: ? Author Type: Physical Therapist Type: [id number] Filed: 03/29/2024 11:59 Note Text: [facility] Physical Therapy Plan of Care Certification Patient Name: Kesha Carmichael : 1945 [facility] #: [id number] Date: 03/29/2024 To: Belkys Mcintyre A* From [...] Planned: 6 Planned Treatment Interventions: Neuromuscular re-education (63873), Therapeutic exercise (71016), Manual therapy (74712), Therapeutic activities (74387), Self-skilled nursing management (74988), Gait Training (28375) PLAN FOR NEXT VISIT: FGA. Assess symptom [...] reviewed the treatment plan for Kesha Carmichael, [facility]# [id number] for the period of 03/29/24 -- 05/10/24, established on 03/29/2024. Signature certifies the need for therapy services. Normal [facility] CNTHERAPYon 03-29-2024 CNTHERAPY OT/PT/Speech Visit (PTWS) KESHA CARMICHAEL ([id number]) 1945 F Date Time Provider Department 03/29/24 11:00 AM BLOSSOM WHITE PTWS Date Time Provider Department [place] 03/29/2024 11:00 AM [id number]-MBLOSSOM WHITE PTSTEVEN Martínez Reason for Visit: PT [...] Date Reviewed: 03/09/2024 Reviewed by: Belkys Mcintyre APRN.DIAGRAM CLERK - Fully Assessed Prescriptions as of 03/29/2024 [...] tablet by mouth once daily. - vit C,J-Gl-gbeck-lutein- zeaxan (PRESERVISION AREDS-2) 250-90-40-1 mg Take 1 [...] 0.9 % (flush) 10 mL (BD POSIFLUSH) Back End Engineer: Therapy (PT/OT/Speech/Resp) ID: [id number] 03/29/2024 11:35 AM Author: BLOSSOM WHITE Signed by BLOSSOM WHITE PT on 03/29/2024 at 11:35 AM Document text: Program_ID:[id number] Access Code: [email or web address] URL: [email or web address]/ Date: 03-29-2024 Prepared By: Blossom White [...] 4 sets - 10 reps -------- Normal [facility] THERAPY NTon 03-29-2024 THERAPY NT HNO ID: [id number] Author: BLOSSOM WHITE PT Service: ? Author Type: Physical Therapist Type: Therapy (PT/OT/Speech/Resp) Filed: 03/29/2024 11:35 Note Text: Program_ID:[id number] Access Code: [email or web address] URL: [email or web address]/ Date: 03-29-2024 Prepared By: Blossom White [...] - 4 sets - 10 reps Normal [facility] CNOVon 03-09-2024 CNOV [facility] FARVER,KESHA L ([id number]) 1945 F Date Time Provider Department 03/09/24 [...] to brush hair. Saw a neurologist in [place] 3-5 years ago. The tremors really bother her. Drinks caffeine in diet pepsi. Occ drinks regular diet pepsi. PAST MEDICAL HISTORY: PAST MEDICAL HISTORY Diagnosis Date Abnormal EKG afib, inf CA age undetermined Atrial fibrillation (HCC) Breast cancer ([facility]) 03/2018 left breast Closed fracture of right distal radius 09/10/2021 Congestive heart failure ([facility]) 09/24/2018 Epistaxis balloon out osteo History of colonoscopy [address] Stoney Hernandez , normal HTN (hypertension) Hyperglycemia Knee pain, chronic Lt Migraines stopped when she retired Normal cardiac stress test 2004 Dr. Romero Osteoarthritis Seasonal allergies Type 2 diabetes mellitus without complication, without long-term current use of insulin ([facility]) 04/11/2016 PAST SURGICAL HISTORY Procedure [...] tablet by mouth daily with dinner. vit C,Y-Co-czdgw-lutein- zeaxan (PRESERVISION AREDS-2) 250-90-40-1 mg Take 1 [...] Mother Hypertension Mother Hypertension Father Heart Father CA Diabetes Father Kidney Disease Sister Heart disease [...] Breast Can (more content not included)... Normal [facility] Urinalysis complete panel (U )on 03-09-2024 Bacteria LM.HPF (Urine sed) [#/Area] Negative Normal Negative [facility] Comment on above: Order Comment: Speci men Type: URINE SPECIMENOrdering Facility: [facility] Address: [address] [place] [address] Performed By: #### 2 4356-8 ####[facility] LABCLIA [id number] [place] [address] [place] Bilirubin Ql (U) Negative Normal Negative [facility] Comment on above: Order Comment: Speci men Type: URINE SPECIMENOrdering Facility: [facility] Address: [address] [place] [address] Performed By: #### 2 4356-8 ####[facility] LABCLIA [id number] [place] [address] [place] Clarity (Unsp spec) Clear Normal Clear [facility] Comment on above: Order Comment: Speci men Type: URINE SPECIMENOrdering Facility: [facility] Address: [address] [place] [address] Performed By: #### 2 4356-8 ####[facility] LABCLIA [id number] [place] [address] [place] Color (U) Yellow Normal Yellow [facility] Comment on above: Order Comment: Speci men Type: URINE SPECIMENOrdering Facility: [facility] Address: [address] [place] [address] Performed By: #### 2 4356-8 ####[facility] LABCLIA [id number] [id number] Epithelial cells LM.HPF (Urine sed) [#/Area] Moderate Normal [facility] Comment on above: Order Comment: Speci men Type: URINE SPECIMENOrdering Facility: [facility] Address: [address] [place] [address] Performed By: #### 2 4356-8 ####[facility] LABCLIA [id number] [place] [address] [place] Glucose Test strip (U) [Mass/Vol] Negative Normal Negative [facility] Comment on above: Order Comment: Speci men Type: URINE SPECIMENOrdering Facility: [facility] Address: [address] [place] [address] Performed By: #### 2 4356-8 ####[facility] LABCLIA [id number] [place] [address] [place] Hemoglobin Ql (U) Negative Normal Negative [facility] Comment on above: Order Comment: Speci men Type: URINE SPECIMENOrdering Facility: [facility] Address: [address] [place] [address] Performed By: #### 2 4356-8 ####[facility] LABCLIA [id number] [address] [place] Hyaline casts (Urine sed) [#/Area] 0 /[LPF] Normal 0 /LPF [facility] Comment on above: Order Comment: Speci men Type: URINE SPECIMENOrdering Facility: [facility] Address: [address] [place] [address] Performed By: #### 2 4356-8 ####[facility] LABCLIA [id number] [address] [place] Ketones Ql (U) Negative Normal Negative [facility] Comment on above: Order Comment: Speci men Type: URINE SPECIMENOrdering Facility: [facility] Address: [address] [place] [address] Performed By: #### 2 4356-8 ####[facility] LABCLIA [id number] [place] [address] [place] Leukocyte esterase Test strip Ql (U) Trace Abnormal Negative [facility] Comment on above: Order Comment: Speci men Type: URINE SPECIMENOrdering Facility: [facility] Address: [address] [place] [address] Performed By: #### 2 4356-8 ####[facility] LABCLIA [id number] [place] [address] [place] Nitrite Ql (U) Negative Normal Negative [facility] Comment on above: Order Comment: Speci men Type: URINE SPECIMENOrdering Facility: [facility] Address: [address] [place] [address] Performed By: #### 2 4356-8 ####[facility] LABCLIA [id number] [place] [address] [place] pH (U) 7.5 [pH] Normal <8.5 [facility] Comment on above: Order Comment: Speci men Type: URINE SPECIMENOrdering Facility: [facility] Address: [address] [place] [address] Performed By: #### 2 4356-8 ####[facility] LABCLIA [id number] [place] [address] [place] Protein (U) [Mass/Vol] Negative Normal Negative [facility] Comment on above: Order Comment: Speci men Type: URINE SPECIMENOrdering Facility: [facility] Address: [address] [place] [address] Performed By: #### 2 4356-8 ####[facility] LABCLIA [id number] [place] [address] [place] RBC LM.HPF (Urine sed) [#/Area] 0-2 /HPF Normal 0-2 /HPF [facility] Comment on above: Order Comment: Speci men Type: URINE SPECIMENOrdering Facility: [facility] Address: [address] [place] [address] Performed By: #### 2 4356-8 ####[facility] [id number] [place] [address] [place] Specific gravity (U) [Rel density] 1.016 Normal 1.005-1.030 [facility] Comment on above: Order Comment: Speci men Type: URINE SPECIMENOrdering Facility: [facility] Address: [address] [place] [address] Performed By: #### 2 4356-8 ####[facility] [id number] [place] [address] [place] Urobilinogen Ql (U) 0.2 EU/dL Normal 0.2-1.0 EU/dL [facility] Comment on above: Order Comment: Speci men Type: URINE SPECIMENOrdering Facility: [facility] Address: [address] [place] [address] Performed By: #### 2 4356-8 ####[facility] [id number] [place] [address] [place] WBC LM.HPF (Urine sed) [#/Area] 0-5 /HPF Normal 0-5 /HPF [facility] Comment on above: Order Comment: Speci men Type: URINE SPECIMENOrdering Facility: [facility] Address: [address] [place] [address] Performed By: #### 2 4356-8 ####[facility] [id number] [place] [address] [place] XR LUMBAR 3V [...] spine are presented. FINDINGS: There are five myx-kst-nxpcbxg lumbar vertebrae. No acute fractures demonstrated. Left-sided curvature/levoscolio sis is demonstrated. There is grade 1 L4 on L5 anterolisthesis. Generalized disc space narrowing is noted. There is moderate osteophyte formation. Kissing spine seen on lateral view. IMPRESSION: Lumbar spine degenerative changes as described above. Carpenter Foreman: [facility] Transcribe Date/Time: Mar 11 2024 4:48P Dictated by : OSCAR ORTEZ MD This examination was interpreted and the report reviewed and electronically signed by: OSCAR ORTEZ MD on Mar 11 2024 4:51PM EST [id number] Normal [facility] XR THORACIC 3V AP/LAT/SWIMME [facility] 03-09-2024 XR THORACIC 3V AP/LAT/SWIMMERS * * [...] and degenerative disease of the thoracic spine. Carpenter Foreman: [employer] Transcribe Date/Time: Mar 12 2024 9:14A Dictated by : SADIE PETER MD This examination was interpreted and the report reviewed and electronically signed by: SADIE PETER MD on Mar 12 2024 9:16AM EST [id number] Normal [facility] 12-26-2023 CNPN Telephone ([facility]) KESHA CARMICHAEL ([id number]) 1945 F Date Time Provider Department 12/26/23 CHIP ARREOLA During your visit today, we recorded the following information about you: Angy Phipps RN 12/26/2023 12:01 PM Signed Patient calls to report that she has a dental appointment/procedur e on Friday and needs amoxicillin 30 min prior to the appointment. Pended previous prescription for review. Please call patient at [phone] if provider is willing to order prescription. [...] Date Reviewed: 11/27/2023 Reviewed by: Belkys Mcintyre APRN.DIAGRAM CLERK - Fully Assessed Reason for Visit: Patient Question [7130] Visit Diagnosis:Acute recurrent sinusitis, unspecified location [J01.91] [...] by mouth daily with dinner. 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 Normal [facility] CNOVon 11-27-2023 CNOV Office Visit (FAMPWS) KESHA CARMICHAEL ([id number]) 1945 F Date Time Provider Department 11/27/23 9:00 AM [facility] During your visit today, we recorded the following information about you: Pulse Blood pressure Weight Height 78/minute 120/80 95.3 kg 1.52 m Belkys Mcintyre APRN.[facility] 11/27/2023 9:46 AM Addendum Chief Reason [...] General (Family Medicine) Inocente Romero MD as Shell Plater (Cardiology) Antonio Cagle MD, PhD as Primary Staff Physician (Cardiology) David Galo MD as Consulting (Infectious Diseases) Dayanna Lewis MD as Consulting (Orthopedics) Chip Arreola MD as Home Care Provider (Family Medicine) Dayanna Lewis MD as Referring (Orthopedics) Bridgett Guzman RN as Black Top Spreader Machine Operator (Post Acute Care) Concerns today: Seeing eye doctor for infection left eye HPI Has an ulcer in left eye- using drops in left eye Getting better Active Problems ACTIVE PROBLEM LIST Intermediate Stage 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 Started asa a day. Aware of risks. Sees [facility] cardiology in [place] Morbid Obesity With Bmi of 40.0-44.9, Adult [...] No date: Abnormal EKG Comment: afib, inf CA age undetermined No date: Atrial fibrillation (HCC) [...] OF; Le (more content not included)... Normal [facility] CNCOon 11-13-2023 CNCO HNO ID: [id number] Author: COORDINATOR, MAMMOGRAPHY, ? Service: ? Author Type: Physician Type: Letter Filed: 11/13/2023 21:37 Note Text: November 14, 2023 PID: [id number] Kesha Carmichael [address] [place] [address] Dear Ms. Carmichael, We are pleased to [...] report will be kept on file at [facility] as part of your permanent medical record and are available for your continuing care. Thank you for allowing us to help in meeting your health care needs. Sincerely, Dr. Oquendo Interpreting Radiologist [facility] (Normal over 40) Normal [facility] SCREENING W TOMOon 11-11 [facility] SCREENING W TERE * * *Final Report* * * DATE OF EXAM: Nov 12 2023 2:24PM [id number] - [facility] SCREENING W TERE / PROCEDURE REASON: Encounter for screening mammogram for malignant neoplasm of breast * * * * Physician Interpretation * * * * RESULT: #[id number] - [facility] SCREENING W TERE BILATERAL DIGITAL SCREENING [...] mammogram, 09/05/2020 mammogram, and 11/08/2022 mammogram - [facility]. There are scattered areas of fibroglandular density. There are benign post operative findings in the left breast. No significant masses, calcifications, or other findings are seen in either breast. There has been no significant interval change. IMPRESSION: BENIGN There is no mammographic evidence of malignancy. A 1 year screening mammogram is recommended. Kemal rosen/dewayne:11/13/2023 21:37:16 Kick Press Operator(s): RT Oseas(R)(M), [facility] letter sent: Normal over 40 Mammogram BI-RADS: [...] Health, Family Medicine, and Medical/Surgical Oncology, the [facility] has carefully reviewed the data and [...] their providers when to stop screening mammograms. Carpenter Foreman: Dewayne Transcribe Date/Time: Nov 12 2023 1:46P Dictated by: KEMAL OQUENDO MD This examination was interpreted and the report reviewed and electronically signed by: KEMAL OQUENDO MD on Nov 13 2023 9:37PM EST [id number] Normal [facility] FUNDUS AUTOFLUORESCENCE PHOT O (FAF) OU (BOTH EYES)on 10-31-2023 [facility] Radiology Study observation (narrative) [facility] OCT MACULA CIRRUS OU (BOTH E YES)on 10-31-2023 [facility] Radiology Study observation (narrative) [facility] XR Ankle - left AP and Later al and obliqueon 03-13-2023 IMPRESSION: No acute osseous abnormality Carpenter Foreman: RG Transcribe Date/Time: Mar 13 2023 5:03P [...] posterior calcaneal enthesophyte. DIVISION OF RADIOLOGY Provider, [facility] [place] - 03/13/2023 * * *Final Report* * [...] enthesophyte. IMPRESSION IMPRESSION: No acute osseous abnormality Carpenter Foreman: RG Transcribe Date/Time: Mar 13 2023 5:03P Dictated by : SADIE PETER MD This examination was interpreted and the report reviewed and electronically signed by: SADIE PETER MD on Mar 13 2023 5:04PM EST [facility] XR Ankle - left AP and Later al and obliqueOrdered By: [facility] Provider on 03-13-2023 [facility] XR Ankle - left AP and Later al and obliqueon 03-12-2023 Radiology Study observation (narrative) [facility] MAHAD SCREENINGon 11-08-2022 [facility] XR SHOULDER GENERAL 3V OR MO RE AP/TRUE AP/OTHER RIGHTon 05-16-2022 [facility] MAHAD SCREENINGon 10-26-2021 [facility] No Panel Informationon 09-10 [facility] XR WRIST INJURY 4V PA/LAT/OB L/SCAPH RIGHTon 08-22-2021 [facility] XR Wrist - right 4 Viewson 0 08-22-2021 IMPRESSION: Nondisplaced transverse fracture involving the radial styloid process which appears to be subacute in nature. Correlation with patient history and physical exam findings may be helpful. Carpenter Foreman: PSCB Transcribe Date/Time: Aug 22 2021 10:45A [...] distal scaphoid. [id number]_NOT_U _DIVISION OF RADIOLOGY Provider, [facility] [place] - 08/22/2021 * * *Final Report* * [...] and physical exam findings may be helpful. Carpenter Foreman: RG Transcribe Date/Time: Aug 22 2021 10:45A Dictated by : DILMA CARRILLO MD This examination was interpreted and the report reviewed and electronically signed by: DILMA CARRILLO MD on Aug 22 2021 10:47AM EST [facility] Radiology Study observation (narrative) [facility] XR Wrist - right 4 ViewsOrde red By: [facility] Provider on 08-22-2021 [facility] XR HIP 2V AP/LAT RTon 2020 [...] RIGHT hip then MRI would be recommended. Carpenter Foreman: RG Transcribe Date/Time: Feb 15 2021 10:20A Dictated by : KELECHI COHN DO This examination was interpreted and the report reviewed and electronically signed by: KELECHI COHN DO on Feb 15 2021 10:21AM EST [id number] [facility] XR Knee - left 4 Viewson IMPRESSION: Satisfactory left knee arthroplasty. Carpenter Foreman: RG Transcribe Date/Time: Mar 04 2020 10:54A [...] fracture, or dislocation. DIVISION OF RADIOLOGY Provider, [facility] [place] - 03/04/2020 * * *Final Report* * [...] dislocation. IMPRESSION IMPRESSION: Satisfactory left knee arthroplasty. Carpenter Foreman: RG Transcribe Date/Time: Mar 04 2020 10:54A Dictated by : BILL STAPLETON MD This examination was interpreted and the report reviewed and electronically signed by: BILL STAPLETON MD on Mar 04 2020 10:55AM EST [facility] Radiology Study observation (narrative) [facility]R Knee - left 4 ViewsOrdere d By: [facility] Provider on 03-04-2020 [facility] MAMMO DIAGNOSTIC BILATERAL ( OUTSIDE IMAGE)on 03-02-2018 Outside Imaging Study for Support of Clinical Care This study was sent from an outside facility to [facility] for support of clinical care of the patient within the [facility]. Invalid Interpretation Code [facility] Work Phone: MAMMO DIAGNOSTIC LEFT (OUTSI DE IMAGE)on 03-02-2018 Outside Imaging Study for Support of Clinical Care This study was sent from an outside facility to [facility] for support of clinical care of the patient within the [facility]. Invalid Interpretation Code [facility] Work Phone: MAMMO SCREENING BILATERAL (O UTSIDE IMAGE)on 03-02-2018 Outside Imaging Study for Support of Clinical Care This study was sent from an outside facility to [facility] for support of clinical care of the patient within the [facility]. Invalid Interpretation Code [facility] Work Phone: Outside Imaging Study for Support of Clinical Care This study was sent from an outside facility to [facility] for support of clinical care of the patient within the [facility]. Invalid Interpretation Code [facility] Work Phone: Outside Imaging Study for Support of Clinical Care This study was sent from an outside facility to [facility] for support of clinical care of the patient within the [facility]. Invalid Interpretation Code [facility] Work Phone: Outside Imaging Study for Support of Clinical Care This study was sent from an outside facility to [facility] for support of clinical care of the patient within the [facility]. Invalid Interpretation Code [facility] Work Phone: US BREAST LEFT (OUTSIDE IMAG E)on 03-02-2018 Outside Imaging Study for Support of Clinical Care This study was sent from an outside facility to [facility] for support of clinical care of the patient within the [facility]. Invalid Interpretation Code [facility] Work Phone: US BREAST PROCEDURE (OUTSIDE IMAGE)on 03-02-2018 Outside Imaging Study for Support of Clinical Care This study was sent from an outside facility to [facility] for support of clinical care of the patient within the [facility]. Invalid Interpretation Code [facility] Work Phone: US BREAST RIGHT (OUTSIDE SIMRAN GE)on 03-02-2018 Outside Imaging Study for Support of Clinical Care This study was sent from an outside facility to [facility] for support of clinical care of the patient within the [facility]. Invalid Interpretation Code [facility] Work Phone: Vital Signs Date Time Vital Sign Value Performing Clinician Facility 10-11-2024 11:25-0400 Body height 152.[address] Chip Arreola MD Work Phone: [facility] 10-11-2024 11:25-0400 Body mass index (BMI) [Ratio] 40.1 kg/m2 Dr. Chip Arreola MD Work Phone: [facility] 10-11-2024 11:25-0400 Body weight 93.[address] Chip Arreola MD Work Phone: [phone] [place] [address] 10-11-2024 11:18-0400 Body temperature 99.2 [degF] Dr. Chip Arreola MD Work Phone: [phone] [place] [address] 10-11-2024 11:18-0400 Diastolic blood pressure 93 mm[Hg] Dr. Chip Arreola MD Work Phone: [phone] [place] [address] 10-11-2024 11:18-0400 Heart rate 116 /min Dr. Chip Arreola MD Work Phone: [phone] [place] [address] 10-11-2024 11:18-0400 Respiratory rate 18 /min Dr. Chip Arreola MD Work Phone: [phone] [place] [address] 10-11-2024 11:18-0400 SaO2% (BldA) [Mass fraction] 95 % Dr. Chip Arreola MD Work Phone: [phone] [place] [address] 10-11-2024 11:18-0400 Systolic blood pressure 115 mm[Hg] Dr. Chip Arreola MD Work Phone: [phone] [place] [address] 10-04-2024 10:34-0400 Diastolic blood pressure 40 mm[Hg] Belkys Suppan OPTOMETRIST.DIAGRAM CLERK Work Phone: [facility] 10-04-2024 10:34-0400 Systolic blood pressure 114 mm[Hg] Belkys Suppan OPTOMETRIST.DIAGRAM CLERK Work Phone: [facility] 10-04-2024 09:58-0400 Body mass index (BMI) [Ratio] 42.21 kg/m2 Belkys Suppan OPTOMETRIST.DIAGRAM CLERK Work Phone: [facility] 10-04-2024 09:58-0400 Body weight 94.8 kg Belkys Suppan OPTOMETRIST.DIAGRAM CLERK Work Phone: [facility] 10-04-2024 09:58-0400 Heart rate 91 /min Belkys Suppan OPTOMETRIST.DIAGRAM CLERK Work Phone: [facility] 10-04-2024 09:58-0400 SaO2% (BldA) [Mass fraction] 98 % Belkys Suppan OPTOMETRIST.DIAGRAM CLERK Work Phone: [facility] 05-27-2024 08:27-0500 Body mass index (BMI) [Ratio] 41.4 kg/m2 Belkys Suppan OPTOMETRIST.DIAGRAM CLERK Work Phone: [facility] 05-27-2024 08:27-0500 Body temperature 97.39 [degF] Belkys Suppan OPTOMETRIST.DIAGRAM CLERK Work Phone: [facility] 05-27-2024 08:27-0500 Body weight 92.99 kg Belkys Suppan OPTOMETRIST.DIAGRAM CLERK Work Phone: [facility] 05-27-2024 08:27-0500 Diastolic blood pressure 80 mm[Hg] Belkys Suppan OPTOMETRIST.DIAGRAM CLERK Work Phone: [facility] 05-27-2024 08:27-0500 Heart rate 61 /min Belkys Suppan OPTOMETRIST.DIAGRAM CLERK Work Phone: [facility] 05-27-2024 08:27-0500 SaO2% (BldA) [Mass fraction] 94 % Belkys Suppan OPTOMETRIST.DIAGRAM CLERK Work Phone: [facility] 05-27-2024 08:27-0500 Systolic blood pressure 132 mm[Hg] Belkys Suppan OPTOMETRIST.DIAGRAM CLERK Work Phone: [facility] 04-19-2024 13:44-0500 Body mass index (BMI) [Ratio] 42.21 kg/m2 Belkys Suppan OPTOMETRIST.DIAGRAM CLERK Work Phone: [facility] 04-19-2024 13:44-0500 Body weight 94.8 kg Belkys Suppan OPTOMETRIST.DIAGRAM CLERK Work Phone: [facility] 04-19-2024 13:44-0500 Diastolic blood pressure 84 mm[Hg] Belkys Suppan OPTOMETRIST.DIAGRAM CLERK Work Phone: [facility] 04-19-2024 13:44-0500 Heart rate 76 /min Belkys Suppan OPTOMETRIST.DIAGRAM CLERK Work Phone: [facility] 04-19-2024 13:44-0500 Respiratory rate 16 /min Belkys Suppan OPTOMETRIST.DIAGRAM CLERK Work Phone: [facility] 04-19-2024 13:44-0500 SaO2% (BldA) [Mass fraction] 98 % Belkys Suppan OPTOMETRIST.DIAGRAM CLERK Work Phone: [facility] 04-19-2024 13:44-0500 Systolic blood pressure 128 mm[Hg] Belkys Suppan OPTOMETRIST.DIAGRAM CLERK Work Phone: [facility] 04-05-2024 14:15-0500 Body height 149.9 cm Anuj Navarro MD Work Phone: [facility] 04-05-2024 14:15-0500 Body mass index (BMI) [Ratio] 42.62 kg/m2 Anuj Navarro MD Work Phone: [facility] 04-05-2024 14:15-0500 Body weight 95.71 kg Anuj Navarro MD Work Phone: [facility] 04-05-2024 14:15-0500 Diastolic blood pressure 85 mm[Hg] Anuj Navarro MD Work Phone: [facility] 04-05-2024 14:15-0500 Heart rate 103 /min Anuj Navarro MD Work Phone: [facility] Comment on above: 103-125 h/o afib 04-05-2024 14:15-0500 Respiratory rate 14 /min Anuj Navarro MD Work Phone: [facility] 04-05-2024 14:15-0500 SaO2% (BldA) [Mass fraction] 97 % Anuj Navarro MD Work Phone: [facility] 04-05-2024 14:15-0500 Systolic blood pressure 122 mm[Hg] Anuj Navarro MD Work Phone: [facility] 03-09-2024 10:24-0500 Body mass index (BMI) [Ratio] 40.94 kg/m2 Belkys Suppan OPTOMETRIST.DIAGRAM CLERK Work Phone: [facility] 03-09-2024 10:24-0500 Body weight 94.6 kg Belkys Suppan OPTOMETRIST.DIAGRAM CLERK Work Phone: [facility] 03-09-2024 10:24-0500 Diastolic blood pressure 78 mm[Hg] Belkys Suppan OPTOMETRIST.DIAGRAM CLERK Work Phone: [facility] 03-09-2024 10:24-0500 Heart rate 110 /min Belkys Suppan OPTOMETRIST.DIAGRAM CLERK Work Phone: [facility] 03-09-2024 10:24-0500 Respiratory rate 16 /min Belkys Suppan OPTOMETRIST.DIAGRAM CLERK Work Phone: [facility] 03-09-2024 10:24-0500 SaO2% (BldA) [Mass fraction] 100 % Belkys Suppan OPTOMETRIST.DIAGRAM CLERK Work Phone: [facility] 03-09-2024 10:24-0500 Systolic blood pressure 122 mm[Hg] Belkys Suppan OPTOMETRIST.DIAGRAM CLERK Work Phone: [facility] 11-27-2023 08:56-0400 Body height 152 cm Belkys Suppan OPTOMETRIST.DIAGRAM CLERK Work Phone: [facility] 11-27-2023 08:56-0400 Body mass index (BMI) [Ratio] 41.23 kg/m2 Belkys Suppan OPTOMETRIST.DIAGRAM CLERK Work Phone: [facility] 11-27-2023 08:56-0400 Body weight 95.25 kg Belkys Suppan OPTOMETRIST.DIAGRAM CLERK Work Phone: [facility] 11-27-2023 08:56-0400 Diastolic blood pressure 80 mm[Hg] Belkys Suppan OPTOMETRIST.DIAGRAM CLERK Work Phone: [facility] 11-27-2023 08:56-0400 Heart rate 78 /min Belkys Suppan OPTOMETRIST.DIAGRAM CLERK Work Phone: [facility] 11-27-2023 08:56-0400 SaO2% (BldA) [Mass fraction] 98 % Belkys Mcintyre OPTOMETRIST.DIAGRAM CLERK Work Phone: [facility] 11-27-2023 08:56-0400 Systolic blood pressure 120 mm[Hg] Belkys Mcintyre OPTOMETRIST.DIAGRAM CLERK Work Phone: [facility] 08-25-2023 10:57-0400 Body height 152.4 cm Anuj Navarro MD Work Phone: [facility] 08-25-2023 10:57-0400 Body mass index (BMI) [Ratio] 40.15 kg/m2 Anuj Navarro MD Work Phone: [facility] 08-25-2023 10:57-0400 Body weight 93.26 kg Anuj Navarro MD Work Phone: [facility] 08-25-2023 10:57-0400 Diastolic blood pressure 86 mm[Hg] Anuj Navarro MD Work Phone: [facility] 08-25-2023 10:57-0400 Heart rate 72 /min Anuj Navarro MD Work Phone: [facility] 08-25-2023 10:57-0400 SaO2% (BldA) [Mass fraction] 98 % Anuj Navarro MD Work Phone: [facility] 08-25-2023 10:57-0400 Systolic blood pressure 118 mm[Hg] Anuj Navarro MD Work Phone: [facility] 03-12-2023 11:32-0500 Body height 152.4 cm Chip Arreola MD Work Phone: [facility] 03-12-2023 11:32-0500 Body weight 92.44 kg Chip Arreola MD Work Phone: [facility] 03-12-2023 11:32-0500 Diastolic blood pressure 72 mm[Hg] Chip Arreola MD Work Phone: [facility] 03-12-2023 11:32-0500 Heart rate 86 /min Chip Arreola MD Work Phone: [facility] 03-12-2023 11:32-0500 SaO2% (BldA) [Mass fraction] 99 % Chip Arreola MD Work Phone: [facility] 03-12-2023 11:32-0500 Systolic blood pressure 108 mm[Hg] Chip Arreola MD Work Phone: [facility] 02-24-2023 10:35-0500 Diastolic blood pressure 82 mm[Hg] Anuj Navarro MD Work Phone: [facility] 02-24-2023 10:35-0500 Systolic blood pressure 128 mm[Hg] Anuj Navarro MD Work Phone: [facility] 02-24-2023 10:22-0500 Body weight 93.89 kg Anuj Navarro MD Work Phone: [facility] 02-24-2023 10:22-0500 Heart rate 68 /min Anuj Navarro MD Work Phone: [facility] 02-24-2023 10:22-0500 SaO2% (BldA) [Mass fraction] 97 % Anuj Navarro MD Work Phone: [facility] 04-15-2022 14:15-0500 Diastolic blood pressure 86 mm[Hg] Chip Arreola MD Work Phone: [facility] 04-15-2022 14:15-0500 Systolic blood pressure 130 mm[Hg] Chip Arreola MD Work Phone: [facility] 04-15-2022 13:39-0500 Body height 152.4 cm Chip Arreola MD Work Phone: [facility] 04-15-2022 13:39-0500 Body weight 95.89 kg Chip Arreola MD Work Phone: [facility] 04-15-2022 13:39-0500 Heart rate 102 /min Chip Arreola MD Work Phone: [facility] 04-15-2022 13:39-0500 SaO2% (BldA) [Mass fraction] 99 % Chip Arreola MD Work Phone: [facility] 04-14-2022 09:24-0500 Diastolic blood pressure 88 mm[Hg] Ginger Christiansonado PA-C Work Phone: [facility] 04-14-2022 09:24-0500 Heart rate 84 /min Ginger Christiansonado PA-C Work Phone: [facility] 04-14-2022 09:24-0500 Systolic blood pressure 155 mm[Hg] Ginger Christiansonado PA-C Work Phone: [facility] 04-14-2022 09:17-0500 Body height 154.9 cm Ginger Freado PA-C Work Phone: [facility] 04-14-2022 09:17-0500 Body mass index (BMI) [Ratio] 39.68 kg/m2 Ginger Freado PA-C Work Phone: [facility] 04-14-2022 09:17-0500 Body temperature 99.19 [degF] Ginger Christiansonado PA-C Work Phone: [facility] 04-14-2022 09:17-0500 Body weight 95.25 kg Ginger Freado PA-C Work Phone: [facility] 04-14-2022 09:17-0500 Respiratory rate 16 /min Ginger Christiansonado PA-C Work Phone: [facility] 04-14-2022 09:17-0500 SaO2% (BldA) [Mass fraction] 95 % Ginger Christiansonado PA-C Work Phone: [facility] 03-25-2022 10:25-0500 Body weight 95.25 kg Anuj Navarro MD Work Phone: [facility] 03-25-2022 10:25-0500 Diastolic blood pressure 80 mm[Hg] Anuj Navarro MD Work Phone: [facility] 03-25-2022 10:25-0500 Heart rate 120 /min Anuj Navarro MD Work Phone: [facility] 03-25-2022 10:25-0500 SaO2% (BldA) [Mass fraction] 94 % Anuj Navarro MD Work Phone: [facility] 03-25-2022 10:25-0500 Systolic blood pressure 140 mm[Hg] Anuj Navarro MD Work Phone: [facility] 12-24-2021 14:48-0400 Body height 152.4 cm Chip Arreola MD Work Phone: [facility] 12-24-2021 14:48-0400 Body weight 96.53 kg Chip Arreola MD Work Phone: [facility] 12-24-2021 14:48-0400 Diastolic blood pressure 80 mm[Hg] Chip Arreola MD Work Phone: [facility] 12-24-2021 14:48-0400 Heart rate 99 /min Chip Arreola MD Work Phone: [facility] 12-24-2021 14:48-0400 SaO2% (BldA) [Mass fraction] 97 % Chip Arreola MD Work Phone: [facility] 12-24-2021 14:48-0400 Systolic blood pressure 128 mm[Hg] Chip Arreola MD Work Phone: [facility] 10-25-2021 13:34-0400 Body weight 98.43 kg Chip Arreola MD Work Phone: [facility] 10-25-2021 13:34-0400 Diastolic blood pressure 82 mm[Hg] Chip Arreola MD Work Phone: [facility] 10-25-2021 13:34-0400 Heart rate 88 /min Chip Arreola MD Work Phone: [facility] 10-25-2021 13:34-0400 Systolic blood pressure 122 mm[Hg] Chip Arreola MD Work Phone: [facility] 08-27-2021 13:20-0400 Body height 152.4 cm Donald Massey MD Work Phone: [facility] 08-27-2021 13:20-0400 Body weight 97.07 kg Donald Massey MD Work Phone: [facility] 08-22-2021 10:03-0400 Body temperature 97.2 [degF] Jaleel Cerda MD Work Phone: [facility] 08-22-2021 10:03-0400 Body weight 100.15 kg Jaleel Cerda MD Work Phone: [facility] 08-22-2021 10:03-0400 Diastolic blood pressure 80 mm[Hg] Jaleel Cerda MD Work Phone: [facility] 08-22-2021 10:03-0400 Heart rate 90 /min Jaleel Cerda MD Work Phone: [facility] 08-22-2021 10:03-0400 Respiratory rate 20 /min Jaleel Cerda MD Work Phone: [facility] 08-22-2021 10:03-0400 SaO2% (BldA) [Mass fraction] 96 % Jaleel Cerda MD Work Phone: [facility] 08-22-2021 10:03-0400 Systolic blood pressure 132 mm[Hg] Jaleel Cerda MD Work Phone: [facility] Encounters Encounter Date Encounter Type Care Provider Facility Start: 10-11-2024 Non-patient / Non-visit Dr. Dayanna adhikari DO [facility] Work Phone: Start: 10-11-2024 Evaluation and management of inpatient Dr. Lida Blum MD -Progressive Care Unit Work Phone: Start: 10-07-2024 End: 10-07-2024 Patient encounter procedure Dominga Reese PA-C Work Phone: Orthopaedics Comment on above: Rotator cuff tear ar thropathy, left; Rotator cuff tear arthropathy, right Start: 10-07-2024 End: 10-07-2024 ambulatory DOMINGA REESE Facility:[facility] Start: 10-05-2024 End: 10-06-2024 Follow-up encounter Belkys Mcintyre APRN.DIAGRAM CLERK Work Phone: [facility] Comment on above: Results (/) Start: 10-04-2024 End: 10-04-2024 ambulatory BELKYS MCINTYRE Facility:[facility] Start: 10-04-2024 End: 10-04-2024 Office outpatient visit 15 minutes Belkys Mcintyre OPTOMETRIST.DIAGRAM CLERK [facility] Comment on above: Hypercalcemia (Prima ry Dx); [...] Start: 10-04-2024 End: 10-04-2024 ambulatory CHIP ARREOLA Facility:[facility] Start: 09-29-2024 End: 09-29-2024 ambulatory Belkys Mcintyre OPTOMETRIST.DIAGRAM CLERK Work Phone: [facility] Comment on above: Bloodwork Start: 07-24-2024 End: 07-26-2024 Refill Chip Arreola MD Work Phone: [facility] Comment on above: Refill Request Start: 06-24-2024 End: 06-24-2024 ambulatory DAYANNA LEWIS Facility:[facility] Start: 06-24-2024 End: 06-24-2024 Patient encounter procedure Dayanna Lewis MD Work Phone: Orthopaedics Comment on above: Rotator cuff tear ar thropathy, left (Primary Dx); Rotator cuff tear arthropathy, right Start: 06-18-2024 End: 06-18-2024 ambulatory DAYANNA LEWIS Facility:[facility] Start: 06-18-2024 End: 06-18-2024 Subsequent hospital visit by physician [facility] Work Phone: Radiology Comment on above: Rotator cuff tear ar thropathy, right [M75.101, M12.811] Start: 06-14-2024 End: 06-14-2024 Orders Only Dayanna Lewis MD Work Phone: Orthopaedics Comment on above: Rotator cuff tear ar thropathy, left (Primary Dx) Start: 06-07-2024 End: 06-07-2024 ambulatory Blossom O'Oleg PT [facility] Comment on above: Falls frequently (Pr imary Dx) Rotator cuff tear ar thropathy, right (Primary Dx) Start: 05-31-2024 End: 05-31-2024 Follow-up encounter Belkys Mcintyre APRN.DIAGRAM CLERK Work Phone: [facility] Start: 05-28-2024 End: 07-28-2024 Follow-up encounter Belkys Mcintyre APRN.DIAGRAM CLERK Work Phone: [facility] Start: 05-27-2024 End: 05-27-2024 Subsequent hospital visit by physician [facility] [place] Work Phone: Radiology Comment on above: Pain of right hip [M 25.551] Start: 05-27-2024 End: 05-27-2024 ambulatory BELKYS MCINTYRE Facility:[facility] Start: 05-27-2024 End: 05-27-2024 Office outpatient visit 25 minutes Belkys Mcintyre APRN.DIAGRAM CLERK Work Phone: [facility] Comment on above: Itching with irritat ion [...] 05-26-2024 End: 05-26-2024 ambulatory Blossom Christian'Oleg PT [facility] Comment on above: Falls frequently (Pr imary Dx) Start: 05-24-2024 End: 05-24-2024 Patient encounter procedure Belkys Mcintyre OPTOMETRIST.DIAGRAM CLERK Work Phone: [facility] Comment on above: Appointment Start: 05-24-2024 End: 05-24-2024 ambulatory Blossom O'Oleg PT [facility] Comment on above: Falls frequently (Pr imary Dx) Start: 05-10-2024 End: 05-10-2024 ambulatory Tanya Meza WOOD FENCE ERECTOR Work Phone: [facility] Comment on above: Falls frequently (Pr imary Dx) Start: 05-07-2024 End: 05-07-2024 ambulatory Blossom O'Oleg PT [facility] Comment on above: Falls frequently (Pr imary Dx) Start: 05-03-2024 End: 05-03-2024 ambulatory Blossom O'Oleg PT [facility] Comment on above: Falls frequently (Pr imary Dx) Start: 04-30-2024 End: 04-30-2024 ambulatory Tanya Meza WOOD FENCE ERECTOR Work Phone: [facility] Comment on above: Falls frequently (Pr imary Dx) Start: 04-26-2024 End: 04-26-2024 ambulatory Blossom O'Oleg PT [facility] Comment on above: Falls frequently (Pr imary Dx) Start: 04-22-2024 End: 04-22-2024 Telephone encounter Abiola Weaver MD Work Phone: Ophthalmology Start: 04-19-2024 End: 04-19-2024 Office outpatient visit 15 minutes Belkys Mcintyre APRN.DIAGRAM CLERK Work Phone: [facility] Comment on above: Infected abrasion of left lower extremity, initial encounter (Primary Dx) Start: 04-19-2024 End: 04-19-2024 ambulatory CHIP ARREOLA Facility:[facility] Start: 04-19-2024 End: 04-19-2024 ambulatory Blossom O'Oleg PT [facility] Comment on above: Falls frequently (Pr imary Dx) Start: 04-15-2024 End: 04-15-2024 ambulatory Belkys Mcintyer APRN.DIAGRAM CLERK Work Phone: [facility] Comment on above: gabapentin Start: 04-08-2024 End: 04-08-2024 ambulatory [facility] Facility:[facility] Start: 04-05-2024 End: 04-05-2024 ambulatory [facility] Facility:[facility] Start: 04-05-2024 End: 04-05-2024 Patient encounter procedure Anuj Navarro MD Work Phone: Cardiology Comment on above: Persistent atrial fi brillation (HCC) (Primary Dx); Chronic diastolic congestive heart failure (HCC); Essential hypertension, benign; Pulmonary HTN (HCC); Morbid obesity with BMI of 40.0-44.9, adult (HCC) Start: 03-31-2024 End: 04-01-2024 ambulatory Belkys Mcintyre OPTOMETRIST.DIAGRAM CLERK Work Phone: [facility] Comment on above: Xarelto Start: 03-29-2024 End: 03-29-2024 [facility] Comment on above: Falls frequently (Pr imary Dx); Frequent falls Start: 03-24-2024 End: 03-25-2024 Refill Anuj Navarro MD Work Phone: Cardiology Comment on above: Refill Request Start: 03-09-2024 End: 03-09-2024 Subsequent hospital visit by physician [facility] Work Phone: Radiology Comment on above: Low back pain, unspe cified back pain laterality, unspecified chronicity, unspecified whether sciatica present [M54.50] Start: 03-09-2024 End: 03-09-2024 ambulatory [facility] Facility:[facility] Start: 03-09-2024 End: 03-09-2024 Office outpatient visit 25 minutes Belkys Mcintyre OPTOMETRIST.DIAGRAM CLERK Work Phone: [facility] Comment on above: Low back pain, unspe cified back pain laterality, unspecified chronicity, unspecified whether sciatica present (Primary Dx); DDD (degenerative disc disease), thoracic; Tremor; Falls frequently Start: 12-26-2023 End: 12-26-2023 Telephone encounter Chip Arreola MD Work Phone: [facility] Comment on above: Patient Question Start: 11-27-2023 End: 11-27-2023 ambulatory CHIP ARREOLA Facility:[facility] Start: 11-27-2023 End: 11-27-2023 Patient encounter procedure Belkys Shaji Jessica TINEO Work Phone: [facility] Comment on above: Essential tremor (Pr imary Dx); Encounter for screening examination for other mental health and behavioral disorders; Screening for depression; Persistent atrial fibrillation (HCC); Malignant neoplasm of overlapping sites of left breast in female, estrogen receptor positive (HCC); Type 2 diabetes mellitus with diabetic chronic kidney disease, unspecified CKD stage, unspecified whether nursing home insulin use (HCC); Obstructive sleep apnea syndrome; Essential hypertension, benign Start: 11-13-2023 Documentation procedure Mammog garima Coordinator [facility] Department Start: 11-13-2023 Letter encounter Mammography Coordinator [facility] Start: 11-12-2023 End: 11-12-2023 ambulatory CHIP Ronald ARREOLA Facility:[facility] Start: 11-12-2023 End: 11-12-2023 Subsequent hospital visit by physician Screen Mammo [facility] Start: 11-03-2023 ambulatory Chip [facility]ola MD [facility] Comment on above: Screening mammogram Start: 10-31-2023 End: 10-31-2023 ambulatory CHIP ARREOLA Facility:[facility] Start: 10-31-2023 End: 10-31-2023 Patient encounter [...] 06-27-2023 Refill Chip Arreola MD Work Phone: [facility] Comment on above: Refill Request Start: 06-18-2023 Telephone encounter Chip Arreola MD Work Phone: [facility] Comment on above: Results Start: 03-12-2023 End: 03-12-2023 ambulatory [facility] Work Phone: Start: 03-12-2023 End: 03-12-2023 Patient encounter procedure [facility] Work Phone: Start: 03-12-2023 End: 03-12-2023 Subsequent hospital visit by physician Xr [facility] Work Phone: Radiology Comment on above: Pain of left lower e xtremity [M79.605] Start: 03-12-2023 End: 03-12-2023 Patient encounter procedure Chip Arreoal MD Work Phone: [facility] Comment on above: Pain of left lower [...] Subsequent hospital visit by physician Screen Mammo [facility] Comment on above: Screening breast exa mination [Z12.39] Start: 05-22-2022 Telephone encounter Marybeth porter APRN.CNP Work Phone: [facility] Comment on above: Results Start: 05-16-2022 End: [...] Chip Arreola MD Work Phone: [facility] [place] Comment on above: Type 2 diabetes rip [...] receptor positive, 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 (HCC); USP current use of anticoagulant therapy; Hypokalemia; Type 2 diabetes mellitus with diabetic chronic kidney disease, unspecified CKD stage, 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 (HCC) Start: 04-14-2022 End: 04-14-2022 ambulatory GINGER FLORES [facility] Start: 04-14-2022 End: 04-14-2022 Office outpatient new 45 minutes Ginger LANDON-C Work Phone: [facility] Comment on above: Cellulitis of left l [...] encounter procedure Chip Arreola MD Work Phone: [facility] Comment on above: Essential hypertensi on, benign [...] 12-06-2021 Subsequent hospital visit by physician Xr [facility] [place] Work Phone: Radiology Comment on above: Other closed intra-a rticular fracture of distal end of right radius, initial encounter [S52.572Z] Start: 12-04-2021 ambulatory Donald Massey MD Work Phone: Orthopaedics Comment on above: Wrist Start: 10-29-2021 Telephone encounter Chip Arreola MD Work Phone: [facility] Comment on above: Results Start: 10-26-2021 ambulatory Anuj gardner MD Work Phone: [facility] Start: 10-26-2021 Follow-up encounter Anuj Navarro MD Work Phone: Cardiology Comment on above: appointment follow u p Start: 10-26-2021 End: 10-26-2021 Subsequent hospital visit by physician Screen Mammo [facility] Comment on above: Malignant neoplasm o f left breast in female, estrogen receptor positive, 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 (HCC) [C50.912, Z17.0] Start: 10-25-2021 End: 10-25-2021 Patient encounter procedure Chip Arreola MD Work Phone: [facility] Comment on above: Malignant neoplasm o f left breast in female, estrogen receptor positive, 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 (HCC) (Primary Dx); Paroxysmal atrial fibrillation (HCC); Essential hypertension, benign; Pulmonary HTN (HCC); Chronic diastolic congestive heart failure (HCC); Type 2 diabetes mellitus without complication, without long-term current use of insulin (HCC) Start: 10-16-2021 Refill Chip Arreola MD Work Phone: [facility] Comment on above: Refill Request Start: 09-10-2021 End: 09-10-2021 Patient encounter procedure Karlene Troncoso PA-C Work Phone: Orthopaedics Comment on above: Other closed intra-a rticular fracture of distal end of right radius, initial encounter (Primary Dx) Start: 09-10-2021 End: 09-10-2021 Subsequent hospital visit by physician Jl [facility] [place] Work Phone: Radiology Comment on [...] 08-22-2021 Subsequent hospital visit by physician Jl [facility] [place] Work Phone: Radiology Comment on above: Acute pain of right wrist [M25.531] Start: 08-22-2021 End: 08-22-2021 Patient encounter procedure Jaleel Cerda MD Work Phone: [facility] Comment on above: Other closed intra-a rticular fracture of distal end of right radius, initial encounter (Primary Dx); Acute pain of right wrist Start: 08-20-2021 Orders Only Martin Mary OPTOMETRIST.DIAGRAM CLERK Work Phone: Orthopaedics Comment on above: Pain in right hip (P rimary Dx) Start: 07-02-2021 ambulatory M Ramakrishna Velazquez on PA-C Work Phone: [facility] [place] Comment on above: Handicap placard Start: 03-04-2020 End: 03-04-2020 Subsequent hospital visit by physician Xr [facility] [place] Work Phone: Radiology Comment on above: [...] Adult depression scr eening assessment Belkys Mcintyre OPTOMETRIST.DIAGRAM CLERK Work Phone: Start: 10-31-2023 End: 10-31-2023 Computerized ophthalmic imaging retina Abiola Weaver MD Work Phone: Start: 03-12-2023 Radex ankle complete minimum 3 views Ch[place] Arreola MD Work Phone: Start: 11-08-2022 Screening [...] Visit Annual PCP Team Chronic Disease Visit [facility] Start: 10-04-2025 Creatinine measurement Serum Creatinine [facility] Start: 05-27-2025 Annual PCP Team Chronic Disease Visit Annual PCP Team Chronic Disease Visit [facility] Start: 05-27-2025 Creatinine measurement Serum Creatinine [facility] Start: 05-27-2025 Hepatitis B screening Urine Albumin:Creatinine Ratio [facility] Start: 05-27-2025 Hepatitis B surface antibody level LDL Cholesterol [facility] Start: 04-19-2025 Annual PCP Team Chronic Disease Visit Annual PCP Team Chronic Disease Visit [facility] Start: 2025 End: 2025 Patient encounter procedure 2025 8:40 AM EST Office Visit [facility] [place] [address] [place], [place] [phone] Belkys Mcintyre APRN.DIAGRAM CLERK [address] [place] [id number] 6 month exam [facility] [place] Comment on above: 6 month exam Start: 03-09-2025 BP Controlled (<130/80) BP Controlled (<130/80) [facility] Start: 03-09-2025 Covid-19 Vaccine ( season) Covid-19 Vaccine () [facility] Comment on above: Postponed from 12/07/2023 (Declined at t his time) Start: 01-05-2025 Covid-19 Vaccine ( season) Covid-19 Vaccine () [facility] Comment on above: Postponed from 12/06/2022 (Postponed To Appropriate Date) Start: 12-15-2024 End: 12-15-2024 Patient encounter procedure 12/15/2024 4:00 PM EDT Office Visit Endocrinology [address] [place] [id number] Micha Umanzor MD [address] [place] [id number] Elevated parathyroid hormone with normal calcium. Checked twice 6 months apart, parathyroid hormone lev Endocrinology Comment on above: Elevated parathyroid hormone with normal calcium. Checked twice 6 months apart, parathyroid hormone lev Start: 12-13-2024 End: 12-13-2024 Patient encounter procedure Cardiology Comment on above: 6 month follow up Start: 11-26-2024 Anxiety Screening Anxiety Screening [facility] Start: 11-26-2024 BP Controlled (<130/80) BP Controlled (<130/80) [facility] Start: 11-26-2024 Depression Screening Depression Screening [facility] Start: 11-26-2024 Pneumococcal Vaccine: 50+ (1 of 2 - PCV) Pneumococcal Vaccine: 50+ (1 of 2 - PCV) [facility] Comment on above: Postponed from 1963 (Declined at t his time) Start: 11-26-2024 Pneumococcal Vaccine: 65+ (1 of 2 - PCV) Pneumococcal Vaccine: 65+ (1 of 2 - PCV) [facility] Comment on above: Postponed from 1950 (Declined at t his time) Start: 11-26-2024 RSV Vaccine (1 - 1-dose 60+ series) RSV Vaccine (1 - 1-dose 60+ series) [facility] Comment on above: Postponed from 2004 (Declined at t his time) Start: 11-26-2024 RSV Vaccine (1 - 1-dose 75+ series) RSV Vaccine (1 - 1-dose 75+ series) [facility] Comment on above: Postponed from 2019 (Declined at t his time) Start: 11-26-2024 Shingrix Vaccine (1 of 2) Shingrix Vaccine (1 of 2) [facility] Comment on above: Postponed from 1994 (Declined at t his time) Start: 11-26-2024 Urine microalbumin profile DTaP,Tdap,Td Vaccine (1 - Tdap) [facility] Comment on above: Postponed from 1963 (Postponed - N ot Clinically Indicated) Start: 11-24-2024 [facility] Start: 11-15-2024 End: 11-15-2024 Patient encounter procedure 11/15/2024 9:10 AM EDT Appointment Mammogram [address] [place] [address] : Malignant neoplasm of left breast in [...] of both eyes Expected: 11/14/2024, Expires: 04/23/2025 [facility] Comment on above: Expected: 11/14/2024, Expires: Start: 11-14-2024 End: 04-23-2025 OCT MACULA CIRRUS OU (BOTH EYES) OCT MACULA CIRRUS OU (BOTH EYES) [facility] Imaging Routine Intermediate stage n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 Posterior vitreous detachment of both eyes Expected: 11/14/2024, Expires: 04/23/2025 [facility] Work Phone: Comment on above: Expected: 11/14/2024, Expires: Start: 10-30-2024 Glaucoma screening Dilated Retinal Exam [facility] Start: 10-18-2024 Diabetic foot examination Diabetic Foot Exam [facility] Comment on above: Postponed from 08/22/2023 (Postponed - N ot Clinically Indicated) Start: 10-12-2024 Thyroid stimulating hormone measurement [facility] Start: 10-11-2024 Following clinical pathway protocol [facility] Start: 10-11-2024 End: 10-11-2024 [facility] Start: 10-11-2024 Assessment of risk of venous thromboembolism [facility] Start: 10-11-2024 Electrocardiographic procedure [facility] Start: 10-11-2024 Insertion of catheter into peripheral vein [facility] Start: 10-11-2024 Measuring intake and output [facility] Start: 10-11-2024 Oxygen therapy [facility] Start: 10-11-2024 Providing care according to standard [facility] Start: 10-11-2024 Provision of activity privileges [facility] Start: 10-11-2024 Referral to epic ambulatory specialists [facility] Start: 10-11-2024 Tobacco use cessation education [facility] Start: 10-11-2024 Verification routine [facility] Start: 10-11-2024 Admission procedure [facility] Start: 10-11-2024 [facility] Start: 10-07-2024 End: 10-07-2024 Patient encounter procedure 10/07/2024 8:40 AM EDT Office Visit Orthopaedics [address] [address] Dominga Reese PA-C [address] [address] B/L SHOULDER INJECTION Orthopaedics Comment on above: B/L SHOULDER INJECTION Start: 10-04-2024 End: 10-04-2024 Patient encounter procedure 10/04/2024 10:20 AM EDT Office Visit Family Medicine [place] [address] [place], [place] [phone] Belkys Mcintyre APRN.DIAGRAM CLERK [address] [place] [address] Need for blood work. [facility] [place] Comment on above: Need for blood work. Start: 07-13-2024 End: 07-13-2024 ambulatory 07/13/2024 9:00 AM EDT OT/PT/Speech Visit [facility] [address] [place], [place] [phone] Blossom White, PT Falls frequently [R29.6] [facility] Comment on above: Falls frequently [R29.6] Start: 07-09-2024 End: 07-09-2024 Patient encounter procedure 07/09/2024 2:30 PM EDT Office Visit [facility] Ophthalmology [address] [address] Abiola Weaver MD [address] [place] [address] Return in about 6 months (around 05/02/2024). Ophthalmology Comment on above: Return in about 6 months (around 05/02/19). Start: 07-06-2024 End: 07-06-2024 ambulatory 07/06/2024 9:00 AM EDT OT/PT/Speech Visit [facility] [address] [place] [address] O'Oleg Blossom, PT Falls frequently [R29.6] [facility] Comment on above: Falls frequently [R29.6] Start: 07-02-2024 Creatinine measurement Serum Creatinine [facility] Start: 07-02-2024 End: 07-02-2024 Patient encounter procedure 07/02/2024 1:00 PM EDT Office Visit [facility] Ophthalmology [address] [address] Abiola Weaver MD [address] [place], [place] [phone] Return in about 6 months (around 05/02/2024). Ophthalmology Comment on above: Return in about 6 months (around 05/02/19). Start: 06-29-2024 End: 06-29-2024 ambulatory 06/29/2024 9:00 AM EDT OT/PT/Speech Visit [facility] [address] [place] [address] O'Oleg, Blossom, PT Falls frequently [R29.6] [facility] Comment on above: Falls frequently [R29.6] Start: 06-24-2024 End: 06-24-2024 Patient encounter procedure 06/24/2024 8:30 AM EDT Office Visit Orthopaedics [address] [address] Dayanna Lewis MD [address] [place], [place] [phone] Right shoulder follow up Orthopaedics Comment on above: Right shoulder follow up Start: 06-22-2024 End: 06-22-2024 ambulatory 06/22/2024 9:00 AM EDT OT/PT/Speech Visit [facility] [address] [address] O'Oleg Blossom, PT Falls frequently [R29.6] [facility] Comment on above: Falls frequently [R29.6] Start: 06-17-2024 Creatinine measurement Serum Creatinine [facility] Start: 06-17-2024 Hepatitis B screening Urine Albumin:Creatinine Ratio [facility] Start: 06-17-2024 Hepatitis B surface antibody level LDL Cholesterol [facility] Start: 06-15-2024 End: 06-15-2024 ambulatory 06/15/2024 9:00 AM EDT OT/PT/Speech Visit [facility] [address] [place] [address] O'Blossom Dejesus, PT Falls frequently [R29.6] [facility] Comment on above: Falls frequently [R29.6] Start: 06-07-2024 End: 06-07-2024 ambulatory 06/07/2024 10:15 AM EST OT/PT/Speech Visit [facility] [address] [place] [address] O'OlegBlossom gonzalez, PT Falls frequently [R29.6] [facility] Comment on above: Falls frequently [R29.6] Start: 06-07-2024 End: 06-07-2024 Patient encounter procedure Family Medic [facility] [place] Comment on above: 6 month f/u Start: 05-27-2024 End: 08-26-2024 CBC W Auto Differential panel - Blood [facility] Comment on above: Expected: 05/27/2024, Expires: Start: 05-27-2024 End: 08-26-2024 Cobalamin (Vitamin B12) [Mass/volume] in Serum or Plasma [facility] Comment on above: Expected: 05/27/2024, Expires: Start: 05-27-2024 End: 08-26-2024 Comprehensive metabolic 2000 panel - Serum or Plasma [facility] Comment on above: Expected: 05/27/2024, Expires: Start: 05-27-2024 End: 08-26-2024 Hemoglobin A1c in Blood [facility] Comment on above: Expected: 05/27/2024, Expires: Start: 05-27-2024 End: 08-26-2024 LIPID PANEL, NONFASTING [facility] Comment on above: Expected: 05/27/2024, Expires: Start: 05-27-2024 End: 08-26-2024 Magnesium [Mass/volume] in Serum or Plasma [facility] Comment on above: Expected: 05/27/2024, Expires: Start: 05-27-2024 End: 08-26-2024 Microalbumin/Creatinine [Mass Ratio] in Urine [facility] Comment on above: Expected: 05/27/2024, Expires: Start: 05-27-2024 End: 08-26-2024 Thyrotropin [Units/volume] in Serum or Plasma [facility] Comment on above: Expected: 05/27/2024, Expires: Start: 05-27-2024 End: 05-27-2024 Patient encounter procedure 05/27/2024 8:40 AM EST Office Visit Family Medicine [place] [address] [place] [address] Belkys Mcintyre APRN.DIAGRAM CLERK [address] [place] [address] Fell while exiting vehicle (05/24/24 MyChart Message) [facility] [place] Comment on above: Fell while exiting vehicle (05/24/24 MyCh art Message) Start: 05-26-2024 End: 05-26-2024 ambulatory 05/26/2024 5:15 PM EST OT/PT/Speech Visit [facility] [address] [place] [address] Blossom White, PT R29.6 (ICD-10-CM) - Falls frequently [facility] Comment on above: R29.6 (ICD-10-CM) - Falls frequently Start: 05-24-2024 End: 05-24-2024 ambulatory 05/24/2024 9:30 AM EST OT/PT/Speech Visit [facility] [address] [place] [address] Blossom White, PT R29.6 (ICD-10-CM) - Falls frequently [facility] Comment on above: R29.6 (ICD-10-CM) - Falls frequently Start: 05-20-2024 End: 05-20-2024 ambulatory 05/20/2024 8:45 AM EST OT/PT/Speech Visit [facility] [address] [place] [address] Blossom White, PT R29.6 (ICD-10-CM) - Falls frequently [facility] Comment on above: R29.6 (ICD-10-CM) - Falls frequently Start: 05-10-2024 End: 05-10-2024 ambulatory 05/10/2024 9:30 AM EST OT/PT/Speech Visit [facility] [address] [place] [address] [facility], WOOD FENCE ERECTOR [address] [place] [address] R29.6 (ICD-10-CM) - Falls frequently [facility] Comment on above: R29.6 (ICD-10-CM) - Falls frequently Start: 05-07-2024 End: 05-07-2024 ambulatory 05/07/2024 10:00 AM EST OT/PT/Speech Visit [facility] [address] [place] [address] Blossom White, PT R29.6 (ICD-10-CM) - Falls frequently [facility] Comment on above: R29.6 (ICD-10-CM) - Falls frequently Start: 05-03-2024 End: 05-03-2024 ambulatory 05/03/2024 8:45 AM EST OT/PT/Speech Visit [facility] [address] [place] [address] Blossom White, PT R29.6 (ICD-10-CM) - Falls frequently [facility] Comment on above: R29.6 (ICD-10-CM) - Falls frequently Start: 05-02-2024 Glaucoma screening Dilated Retinal Exam [facility] Start: 04-30-2024 End: 04-30-2024 ambulatory 04/30/2024 10:15 AM EST OT/PT/Speech Visit [facility] [address] [place] [address] Tanya Meza, WOOD FENCE ERECTOR [address] [place] [address] R29.6 (ICD-10-CM) - Falls frequently [facility] Comment on above: R29.6 (ICD-10-CM) - Falls frequently Start: 04-26-2024 End: 04-26-2024 ambulatory 04/26/2024 1:15 PM EST OT/PT/Speech Visit [facility] [address] [place] [address] O'Blossom Dejesus, PT R29.6 (ICD-10-CM) - Falls frequently [facility] Comment on above: R29.6 (ICD-10-CM) - Falls frequently Start: 04-22-2024 End: 04-22-2024 ambulatory 04/22/2024 8:45 AM EST OT/PT/Speech Visit [facility] [address] [place] [address] O'Blossom Dejesus, PT R29.6 (ICD-10-CM) - Falls frequently [facility] Comment on above: R29.6 (ICD-10-CM) - Falls frequently Start: 04-19-2024 End: 04-19-2024 ambulatory 04/19/2024 8:45 AM EST OT/PT/Speech Visit [facility] [address] [place] [address] O'Blossom Dejesus, PT R29.6 (ICD-10-CM) - Falls frequently [facility] Comment on above: R29.6 (ICD-10-CM) - Falls frequently Start: 04-14-2024 End: 04-14-2024 ambulatory 04/14/2024 9:45 AM EST OT/PT/Speech Visit [facility] [address] [place] [address] Blossmo White PT R29.6 (ICD-10-CM) - Falls frequently [facility] Comment on above: R29.6 (ICD-10-CM) - Falls frequently Start: 04-07-2024 Medicare [facility] Annual Wellness Visit Medicare [facility] Annual Wellness Visit [facility] Start: 04-05-2024 End: 04-05-2024 Patient encounter procedure 04/05/2024 2:40 PM EST Office Visit Cardiology [address] [place] [address] Anuj Navarro MD [address] [facility] [address] [place] [address] 6 month follow up Cardiology Comment on above: 6 month follow up Start: 03-29-2024 End: 03-29-2024 ambulatory 03/29/2024 11:00 AM EST OT/PT/Speech Visit [facility] [address] [place] [address] Blossom White, PT Falls frequently [R29.6] [facility] Comment on above: Falls frequently [R29.6] Start: 03-12-2024 Annual PCP Team Chronic Disease Visit Annual PCP Team Chronic Disease Visit [facility] Start: 03-12-2024 BP Controlled (<130/80) BP Controlled (<130/80) [facility] Start: 02-13-2024 Hepatitis C antibody, confirmatory test Dilated Retinal Exam [facility] Start: 12-19-2023 Hemoglobin A1c measurement HbA1C [facility] Start: 12-07-2023 Covid-19 Vaccine ( season) Covid-19 Vaccine ( season) [facility] Start: 12-07-2023 Covid-19 Vaccine ( season) Covid-19 Vaccine () [facility] Start: 10-31-2023 End: 10-31-2023 Patient encounter procedure 10/31/2023 12:30 PM EDT Office Visit [facility] Ophthalmology [address] [address] Abiola Weaver MD [address] [place], [place] [phone] Return in about 6 months (around 10/31/2023). Ophthalmology Comment on above: Return in about 6 months (around 10/31/19 24). Start: 10-17-2023 Annual PCP Team Chronic Disease Visit Annual PCP Team Chronic Disease Visit [facility] Start: 10-17-2023 Hepatitis C Screening Hepatitis C Screening [facility] Comment on above: Postponed from 1962 (Declined at t his time) Start: 10-17-2023 Urine microalbumin profile DTaP,Tdap,Td Vaccine (1 - Tdap) [facility] Comment on above: Postponed from 1963 (Declined at t his time) Start: 10-11-2023 Serum Creatinine Serum Creatinine [facility] Start: 08-22-2023 3 comp foot exam completed Diabetic Foot Exam [facility] Start: 08-22-2023 Diabetic foot examination Diabetic Foot Exam [facility] Start: 07-07-2023 End: 02-25-2024 Echocardiography ECHO Cardiology Routine Persistent atrial fibrillation (HCC) H/O mitral valve disease Expected: 07/07/2023, Expires: 02/25/2024 [facility] Work Phone: Comment on above: Expected: 07/07/2023, Expires: 4 Start: 06-19-2023 End: 09-18-2023 Basic metabolic 2000 panel - Serum or Plasma BASIC METABOLIC PNL Lab Routine Hypokalemia Expected: 06/19/2023, Expires: 09/18/2023 [facility] Work Phone: Comment on above: Expected: 06/19/2023, Expires: Start: 04-15-2023 ANNUAL PCP TEAM CHRONIC DISEASE VISIT ANNUAL PCP TEAM CHRONIC DISEASE VISIT [facility] Start: 04-12-2023 Hemoglobin A1c/Hemoglobin.total in Blood HbA1C [facility] Start: 04-12-2023 Hepatitis B surface antibody level LDL CHOLESTEROL [facility] Start: 04-12-2023 SERUM CREATININE SERUM CREATININE [facility] Start: 04-07-2023 Advance Directive Discussion Advance Directive Discussion [facility] Start: 04-07-2023 Behavioral Health Screening Behavioral Health Screening [facility] Start: 04-07-2023 Depression Assessment Depression Assessment [facility] Start: 03-15-2023 ANNUAL PCP TEAM CHRONIC DISEASE VISIT ANNUAL PCP TEAM CHRONIC DISEASE VISIT [facility] Start: 12-24-2022 ANNUAL PCP TEAM CHRONIC DISEASE VISIT ANNUAL PCP TEAM CHRONIC DISEASE VISIT [facility] Start: 12-06-2022 Covid-19 Vaccine () Covid-19 Vaccine () [facility] Start: 10-27-2022 HEMOGLOBIN/HEMATOCRIT HEMOGLOBIN/HEMATOCRIT [facility] Start: 10-27-2022 Hepatitis B screening URINE ALBUMIN:CREATININE RATIO [facility] Start: 10-27-2022 SERUM CREATININE SERUM CREATININE [facility] Start: 10-25-2022 3 comp foot exam completed DIABETIC FOOT EXAM [facility] Start: 10-25-2022 ANNUAL PCP TEAM CHRONIC DISEASE VISIT ANNUAL PCP TEAM CHRONIC DISEASE VISIT [facility] Start: 10-25-2022 BP CONTROLLED (<130/80) BP CONTROLLED (<130/80) [facility] Start: 10-25-2022 COVID-19 VACCINE (#1) COVID-19 VACCINE (#1) [facility] Comment on above: Postponed from 1944 (Declined at t his time) Start: 10-25-2022 PNEUMOCOCCAL: 65+ (1 - PCV) PNEUMOCOCCAL: 65+ (1 - PCV) [facility] Comment on above: Postponed from 1950 (Declined at t his time) Start: 10-25-2022 SHINGRIX VACCINE (1 of 2) SHINGRIX VACCINE (1 of 2) [facility] Comment on above: Postponed from 1994 (Declined at t his time) Start: 10-18-2022 Adult depression screening assessment DEPRESSION SCREENING [facility] Start: 10-13-2022 End: 12-13-2022 Basic metabolic 2000 panel - Serum or Plasma BASIC METABOLIC PNL Lab Routine Stage 3 chronic kidney disease, unspecified whether stage 3a or 3b CKD (HCC) Expected: 10/13/2022, Expires: 12/13/2022 [facility] Work Phone: Comment on above: Expected: 10/13/2022, Expires: 3 Start: 10-13-2022 End: 12-13-2022 CBC panel - Blood by Automated count CBC Lab Routine Persistent atrial fibrillation (HCC) Stage 3 chronic kidney disease, unspecified whether stage 3a or 3b CKD (HCC) Expected: 10/13/2022, Expires: 12/13/2022 [facility] Work Phone: Comment on above: Expected: 10/13/2022, Expires: Start: 10-13-2022 End: 12-13-2022 Hemoglobin A1c in Blood HGB A1C Lab Routine Type 2 diabetes mellitus without complication, without long-term current use of insulin (HCC) Type 2 diabetes mellitus with diabetic chronic kidney disease (HCC) Expected: 10/13/2022, Expires: 12/13/2022 [facility] Work Phone: Comment on above: Expected: 10/13/2022, Expires: 3 Start: 10-10-2022 Hemoglobin A1c measurement A1C [facility] Start: 10-10-2022 Hemoglobin A1c/Hemoglobin.total in Blood HBA1C [facility] Start: 05-21-2022 Hepatitis B screening URINE ALBUMIN:CREATININE RATIO [facility] Start: 05-21-2022 Hepatitis B surface antibody level LDL CHOLESTEROL [facility] Start: 04-29-2022 Hemoglobin A1c/Hemoglobin.total in Blood HBA1C [facility] Start: 04-27-2022 ANNUAL PCP TEAM CHRONIC DISEASE VISIT ANNUAL PCP TEAM CHRONIC DISEASE VISIT [facility] Start: 04-27-2022 End: 06-27-2022 Hemoglobin A1c in Blood HGB A1C Lab Routine Type 2 diabetes mellitus without complication, without long-term current use of insulin (HCC) Expected: 04/27/2022, Expires: 06/27/2022 [facility] Work Phone: Comment on above: Expected: 04/27/2022, Expires: 3 Start: 04-27-2022 Urine microalbumin profile DTAP,TDAP,TD (1 - Tdap) [facility] Comment on above: Postponed from 1963 (Declined at t his time) Start: 04-15-2022 End: 06-15-2022 POTASSIUM BLD POTASSIUM BLD Lab Routine Hypokalemia Expected: 04/15/2022, Expires: 06/15/2022 [facility] Work Phone: Comment on above: Expected: 04/15/2022, Expires: 3 Start: 04-07-2022 End: 12-24-2022 CBC W Auto Differential panel - Blood CBC + DIFF Lab Routine Essential hypertension, benign Expected: 04/07/2022, Expires: 12/24/2022 [facility] Work Phone: Comment on above: Expected: 04/07/2022, Expires: 3 Start: 04-07-2022 End: 12-24-2022 Comprehensive metabolic 2000 panel - Serum or Plasma COMP METABOLIC PANEL Lab Routine Essential hypertension, benign Expected: 04/07/2022, Expires: 12/24/2022 [facility] Work Phone: Comment on above: Expected: 04/07/2022, Expires: 3 Start: 04-07-2022 End: 06-07-2022 Hemoglobin A1c in Blood HGB A1C Lab Routine Type 2 diabetes mellitus without complication, without long-term current use of insulin (HCC) Expected: 04/07/2022, Expires: 06/07/2022 [facility] Work Phone: Comment on above: Expected: 04/07/2022, Expires: 3 Start: 04-07-2022 End: 12-24-2022 Lipid 1996 panel - Serum or Plasma LIPID PANEL BASIC Lab Routine Essential hypertension, benign Expected: 04/07/2022, Expires: 12/24/2022 [facility] Work Phone: Comment on above: Expected: 04/07/2022, Expires: 3 Start: 12-06-2021 Influenza vaccination Sequential Influenza Vaccine (#1) [facility] Start: 11-18-2021 Hemoglobin A1c/Hemoglobin.total in Blood HBA1C [facility] Start: 10-25-2021 End: 12-25-2021 ALBUMIN/CREAT RATIO RND UR ALBUMIN/CREAT RATIO RND UR Lab Routine Type 2 diabetes mellitus without complication, without long-term current use of insulin (HCC) Expected: 10/25/2021, Expires: 12/25/2021 [facility] Work Phone: Comment on above: Expected: 10/25/2021, Expires: 2 Start: 10-25-2021 End: 12-25-2021 Basic metabolic 2000 panel - Serum or Plasma BASIC METABOLIC PNL Lab Routine Type 2 diabetes mellitus without complication, without long-term current use of insulin (HCC) Expected: 10/25/2021, Expires: 12/25/2021 [facility] Work Phone: Comment on above: Expected: 10/25/2021, Expires: 2 Start: 10-25-2021 End: 12-25-2021 CBC W Auto Differential panel - Blood CBC + DIFF Lab Routine Type 2 diabetes mellitus without complication, without long-term current use of insulin (HCC) Expected: 10/25/2021, Expires: 12/25/2021 [facility] Work Phone: Comment on above: Expected: 10/25/2021, Expires: 2 Start: 09-22-2021 Hepatitis C antibody, confirmatory test DILATED RETINAL EXAM [facility] Start: 06-22-2021 3 comp foot [facility] Start: 06-17-2021 Adult depression screening assessment DEPRESSION SCREENING [facility] Start: 04-07-2021 ADVANCE DIRECTIVE DISCUSSION ADVANCE DIRECTIVE DISCUSSION [facility] Start: 04-07-2021 DEPRESSION ASSESSMENT DEPRESSION ASSESSMENT [facility] Start: 02-11-2019 Protein mass conc MAMMOGRAM SCREENING DISCUSSION [facility] Work Phone: Start: 03-25-2018 End: 03-25-2018 Ambulatory 03/25/2018 Office [place] [address] [place] [phone] Department of Radiation Oncology Start: 03-05-2018 End: 03-05-2018 Ambulatory 03/05/2018 Office Visit Surgical Oncology Raul BARRON, Chip Mejia MD [address] [facility] [address] [place] [address] Division of Surgical Oncology Start: 12-06-2017 Influenza vaccination INFLUENZA VACCINE (#1) [facility] Work Phone: Start: 2009 Fall risk assessment Falls Risk Assessment [facility] Start: 2009 Pneumococcal vaccination PNEUMOCOCCAL VACCINE SERIES (1 of 2 - PCV13) [facility] Work Phone: Start: 2009 Pneumococcal Vaccine: Age 65+ (1 - PCV) Pneumococcal Vaccine: Age 65+ (1 - PCV) [facility] Start: 2004 Hepatitis B Vaccine (1 of 3 - Risk 3-dose series) Hepatitis B Vaccine (1 of 3 - Risk 3-dose series) [facility] Start: 2004 RSV Vaccine (1 - 1-dose 60+ series) RSV Vaccine (1 - 1-dose 60+ series) [facility] Start: 1994 Administration of herpes zoster vaccine Zoster Vaccines (1 of 2) [facility] Start: 1994 Protein mass conc COLON CANCER SCREENING DISCUSSION [facility] Work Phone: Start: 1994 SHINGRIX VACCINE (1 of 2) SHINGRIX VACCINE (1 of 2) [facility] Start: 1984 Fasting lipid profile LIPID SCREENING [facility] Work Phone: Start: 1984 Screening for malignant neoplasm of breast Mammogram [facility] Start: 1965 Screening for malignant neoplasm of cervix PAP SMEAR DISCUSSION [facility] Work Phone: Start: 1963 SHINGRIX VACCINE (1 of 2) SHINGRIX VACCINE (1 of 2) [facility] Start: 1963 Third diphtheria, tetanus and acellular pertussis (DTaP) vaccination TDAP (ADULT) [facility] Work Phone: Start: 1963 Urine microalbumin profile [facility] Start: 1962 Anxiety Screening Anxiety Screening [facility] Start: 1962 BP CONTROLLED (<130/80) BP CONTROLLED (<130/80) [facility] Start: 1962 Depression Screening Depression Screening [facility] Start: 1962 HEPATITIS C SCREENING HEPATITIS C SCREENING [facility] Start: 1962 Hepatitis C screening Hepatitis C Screening [facility] Start: [address] [facility] Work Phone: Start: 1956 Depression screening using PHQ-9 (Patient Health Questionnaire 9) score Depression Screening (PHQ-2/9) [facility] Start: 1954 Diabetic foot examination Foot Exam [facility] Start: 1954 Glaucoma screening Ophthalmology Exam [facility] Start: 1954 Urine screening for protein Urine Microalbumin [facility] Start: 1950 Pneumococcal Vaccine: 65+ (1 - PCV) Pneumococcal Vaccine: 65+ (1 - PCV) [facility] Start: 1950 Pneumococcal Vaccine: 65+ (1 of 2 - PCV) Pneumococcal Vaccine: 65+ (1 of 2 - PCV) [facility] Start: 1950 PNEUMOCOCCAL: 65+ (1 - PCV) PNEUMOCOCCAL: 65+ (1 - PCV) [facility] Start: 1949 COVID-19 VACCINE (#1) COVID-19 VACCINE (#1) [facility] Start: 1949 COVID-19 VACCINE (1) COVID-19 VACCINE (1) [facility] Start: 1947 History and physical examination, annual for health maintenance Wellness Visit [facility] Start: 1944 COVID-19 VACCINE (#1) COVID-19 VACCINE (#1) [facility] Start: 1944 End: 1944 Screening for osteoporosis [facility] Start: 1944 Tetanus vaccination Tetanus: Every 10yrs [facility] Anion gap in Serum o r Plasma [facility] BUN/Creatinine ratio [facility] Calcium [Mass/volume ] in Serum or Plasma [facility] Carbon dioxide, tota l [Moles/volume] in Central venous blood [facility] Cholesterol [Mass/vo lume] in Serum or Plasma [facility] Cholesterol in HDL [Mass/volume] in Serum or Plasma [facility] Creatinine [Mass/vol ume] in Serum or Plasma [facility] End: 11-12-2023 DBT Breast - bilateral screening [facility] Work Phone: Comment on above: ONCE for 1 Occurrences starting 11/12/19 until 11/12/2023 End: 11-03-2025 DBT Breast - bilateral screening MAHAD SCREENING W TERE Radiology Routine Malignant neoplasm of left breast in female, estrogen receptor positive, 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 (HCC) 1 Occurrences starting 10/04/2024 until 11/03/2025 [facility] Work Phone: Comment on above: 1 Occurrences starting 10/04/2024 until 11/03/2025 Erythrocyte mean corpuscular volume determination [facility] Glucose [Mass/volume ] in Serum or Plasma [facility] Hematocrit [Volume Fraction] of Blood [facility] Hemoglobin [Mass/vol ume] in Blood [facility] Leukocytes [#/volume ] in Blood [facility] Low density lipoprot ein cholesterol measurement [facility] Mean corpuscular hem oglobin concentration determination [facility] Mean corpuscular hem oglobin determination [facility] Measurement of renal function [facility] End: 12-03-2024 MG Breast Screening MAHAD SCREENING Radiology Routine Encounter for screening mammogram for malignant neoplasm of breast 1 Occurrences starting 11/04/2023 until 12/03/2024 [facility] Work Phone: Comment on above: 1 Occurrences starting 11/04/2023 until 12/03/2024 Mri any jt upper ext remity w/o contrast matrl MRI WRIST WO IVCON RT Radiology Routine Closed fracture of right wrist with routine healing, subsequent encounter Ordered: 12/31/2021 [facility] Work Phone: Comment on above: Ordered: 12/31/2021 Neutrophil count [facility] Neutrophil percent differential count [facility] Platelets [#/volume] in Blood [facility] Potassium measurement [facility] Red blood cell count [facility] Red cell distributio n width determination [facility] End: 11-24-2022 Screening mammography bi 2-view breast inc cad MAHAD SCREENING Radiology Routine Malignant neoplasm of left breast in female, estrogen receptor positive, 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 (HCC) 1 Occurrences starting 10/25/2021 until 11/24/2022 [facility] Work Phone: Comment on above: 1 Occurrences starting 10/25/2021 until 11/24/2022 Serum chloride measurement [facility] Sodium measurement [facility] Total cholesterol:HD L ratio measurement [facility] Triglycerides measurement [facility] Troponin T.cardiac [Mass/volume] in Serum or Plasma by High sensitivity method [facility] Troponin T.cardiac [Mass/volume] in Serum or Plasma by High sensitivity method [facility] Urea nitrogen [Mass/ volume] in Serum or Plasma [facility] Urinalysis complete panel - Urine URINALYSIS, WITH MICROSCOPIC Lab Routine Falls frequently 03/09/2024 11:15 AM [facility] End: 03-12-2024 US LEG VEIN DVT UNL VAS LAB US LEG VEIN DVT UNL VAS LAB Vascular Lab STAT Pain of left lower extremity 1 Occurrences starting 03/12/2023 until 03/12/2024 [facility] Work Phone: Comment on above: 1 Occurrences starting 03/12/2023 until 03/12/2024 VLDL cholesterol measurement [facility] End: 04-10-2024 XR ANKLE GENERAL 3V AP/LAT/OBL LEFT XR ANKLE GENERAL 3V AP/LAT/OBL LEFT Radiology Routine Pain of left lower extremity 1 Occurrences starting 03/12/2023 until 04/10/2024 [facility] Work Phone: Comment on above: 1 Occurrences starting 03/12/2023 until 04/10/2024 XR ANKLE GENERAL 3V AP/LAT/OBL LEFT XR ANKLE GENERAL 3V AP/LAT/OBL LEFT Radiology Routine Pain of left lower extremity 03/12/2023 12:26 PM EST [facility] Work Phone: End: 09-20-2022 XR HIP 2V AP/LAT RIGHT (AK,FL,ME) XR HIP 2V AP/LAT RIGHT (AK,FL,ME) Radiology Routine Pain in right hip 1 Occurrences starting 08/21/2021 until 09/20/2022 [facility] Work Phone: Comment on above: 1 Occurrences starting 08/21/2021 until 09/20/2022 End: 04-08-2025 XR Lumbar spine 3 Views XR LUMBAR GENERAL 3V AP/LAT/L5-S1 Radiology Routine Low back pain, unspecified back pain laterality, unspecified chronicity, unspecified whether sciatica present 1 Occurrences starting 03/09/2024 until 04/08/2025 [facility] Work Phone: Comment on above: 1 Occurrences starting 03/09/2024 until 04/08/2025 XR Lumbar spine 3 Views XR LUMBA R GENERAL 3V AP/LAT/L5-S1 Radiology Routine Low back pain, unspecified back pain laterality, unspecified chronicity, unspecified whether sciatica present 03/09/2024 12:07 PM EST [facility] End: 06-26-2025 XR Pelvis and Hip - right AP and Lateral frog XR HIP GENERAL 3V PELV/AP/LAT RIGHT Radiology Routine Pain of right hip 1 Occurrences starting 05/27/2024 until 06/26/2025 [facility] Work Phone: Comment on above: 1 Occurrences starting 05/27/2024 until 06/26/2025 XR Pelvis and Hip - right AP and Lateral frog XR HIP GENERAL 3V PELV/AP/LAT RIGHT Radiology Routine Pain of right hip 05/27/2024 9:44 AM EST [facility] End: 07-14-2025 XR Shoulder - left 3 Views XR SHOULDER GENERAL 3V OR MORE AP/TRUE AP/OTHER LEFT Radiology Routine Rotator cuff tear arthropathy, left 1 Occurrences starting 06/14/2024 until 07/14/2025 [facility] Work Phone: Comment on above: 1 Occurrences starting 06/14/2024 until 07/14/2025 XR Shoulder - left 3 Views XR SH OULDER GENERAL 3V OR MORE AP/TRUE AP/OTHER LEFT Radiology Routine Rotator cuff tear arthropathy, left 06/18/2024 1:27 PM EDT [facility] End: 07-07-2025 XR Shoulder - right 3 Views XR SHOULDER GENERAL 3V OR MORE AP/TRUE AP/OTHER RIGHT Radiology Routine Rotator cuff tear arthropathy, right 1 Occurrences starting 06/07/2024 until 07/07/2025 [facility] Work Phone: Comment on above: 1 Occurrences starting 06/07/2024 until 07/07/2025 XR Shoulder - right 3 Views XR S HOULDER GENERAL 3V OR MORE AP/TRUE AP/OTHER RIGHT Radiology Routine Rotator cuff tear arthropathy, right 06/18/2024 1:23 PM EDT [facility] Work Phone: End: 06-13-2023 XR SHOULDER GENERAL 3V OR MORE AP/TRUE AP/OTHER RIGHT XR SHOULDER GENERAL 3V OR MORE AP/TRUE AP/OTHER RIGHT Radiology Routine Pain in joint of right shoulder 1 Occurrences starting 05/14/2022 until 06/13/2023 [facility] Work Phone: Comment on above: 1 Occurrences starting 05/14/2022 until 06/13/2023 End: 04-08-2025 XR Thoracic spine AP and Lateral and Swimmers XR THORACIC GENERAL 3V AP/LAT/SWIMMERS Radiology Routine DDD (degenerative disc disease), thoracic 1 Occurrences starting 03/09/2024 until 04/08/2025 [facility] Comment on above: 1 Occurrences starting 03/09/2024 until 04/08/2025 XR Thoracic spine AP and Lateral and Swimmers XR THORACIC GENERAL 3V AP/LAT/SWIMMERS Radiology Routine DDD (degenerative disc disease), thoracic 03/09/2024 12:07 PM EST [facility] End: 12-06-2021 XR WRIST GENERAL 3V PA/LAT/OBL RIGHT [facility] Work Phone: Comment on above: 1 Occurrences starting 12/06/2021 until 12/06/2021 [facility] c [facility] c [facility] c [facility] c [facility] Payers Date Payer Category Payer Self-pay [id number] 2015 Medicare MMO MEDICARE MMO MEDADVANTAGE HMO [id number] 2015-Present [phone] [address] [place] [address] O [id number] 2015 Medicare [id number] 2015 Medicare (Managed Care) MMO KEVIN DVANTAGE O [id number] 2015 Medicare [id number] 2009 [facility] (not [facility] care or Medicaid) [facility] [id number] 2009 [facility] [id number] 2009-Present [phone] [address] [address] [place] [address] Indemnity [id number] 2009 Unknown [id number] 2009 Unknown [id number] 1944 Unknown [id number] Medicare [id number] Unknown [id number] Social History Date Type Detail Facility Tobacco smoking stat us [facility] Unknown if ever smoked [facility] Work Phone: Start: 1945 Sex Assigned At Not on file [facility] Work Phone: Start: 03-05-2018 End: 10-11-2024 Tobacco smoking status NHIS Never smoker [facility] Start: 05-21-2021 End: 10-04-2024 Alcohol intake Current non-drinker of alcohol (finding) [facility] Start: 12-21-2019 End: 03-15-2022 History SDOH Alcohol Frequency 1 [facility] Start: 12-21-2019 End: 03-15-2022 History SDOH Stress 2 [facility] Start: 1945 Sex Assigned At Female [facility] Start: 02-03-2020 End: 04-14-2022 Exposure to SARS-CoV-2 (event) Not sure [facility] Start: 10-19-2021 End: 03-15-2022 History SDOH Social Connections Phone 5 [facility] Start: 10-19-2021 End: 03-15-2022 History SDOH Social Connections [facility] 3 [facility] Start: 10-19-2021 End: 03-15-2022 History SDOH Social Connections Living 4 [facility] Start: 03-15-2022 History SDOH Alcohol Std Drinks 0 [facility] Start: 03-25-2022 Tobacco smoking status NHIS Tobacco smoking consumption unknown [facility] Start: 03-15-2022 End: 10-16-2022 History of Social function [facility] Start: 03-15-2022 End: 10-16-2022 Social connection and isolation panel [facility] Do you belong to any clubs or organizations such as mu-ism groups, unions, fraternal or athletic groups, or school groups? Yes [facility] Are you now , , , , never or living with a partner? [facility] How often to you hav e a drink containing alcohol? Never [facility] How many standard dr inks containing alcohol do you have on a typical day? Patient does not drink [facility] How hard is it for y ou to pay for the very basics like food, housing, medical care, and heating Not very hard [facility] Do you feel stress - tense, restless, nervous, or anxious, or unable to sleep at night because your mind is troubled all the time - these days [OSQ] Only a little [facility] (I/We) worried wheth er (my/our) food would run out before (I/we) got money to buy more. Never true [facility] In the past 12 month s, was there a time when you were not able to pay the mortgage or rent on time? No [facility] Start: 01-28-2019 Gender identity Identifies as female gender (finding) [facility] Start: 01-28-2019 Sexual orientation Heterosexual (finding) [facility] Start: 09-04-2018 None [facility] Start: 09-04-2018 Alone [facility] Medical Equipment Procedure Code Equipment Code Equipment Origin al Text Equipment Identifier Dates Ravindra Bn Endur Sst 40gm Med Vsc - [id number] Start: 09-09-2011 Comment on above: Description: SMARTSE T MV BONE CEMENT Ravindra Bn Endur Sst 40gm Med Vsc - [id number] Start: 05-31-2013 Pfc Sigma Insert Bearing Stabilized 3 10mm [id number] Start: 03-05-2020 Comp Fem 3 Rt Kn Ps Pfc Sig - [id number] Start: 09-09-2011 Comment on above: Description: SIGMA F EMORAL POSTERIOR STABILIZED CEMENTED RIGHT Comp Tibtry 2 Kn Ravindra Mdlr Sig - [id number] Start: 09-09-2011 Comment on above: Description: P.F.C. SIGMA TIBIAL TRAY FIXED BEARING MODULAR COCR 2 Ins Tib 2 17.5mm Kn Uhmwpe - [id number] Start: 09-09-2011 Comment on above: Description: P.F.C. SIGMA CROSS LINKED STABILIZED INSERT Ins Tib 3 10mm K n Xlnk Gvf - [id number] Start: 05-31-2013 Comp Fem 3 Lt Kn Ps Pfc Sig - [id number] Start: 05-31-2013 Comp Tibtry 3 Kn Ravindra Mdlr Sig - [id number] Start: 05-31-2013 Insert Sigma 3 X lk Cocr 12.5mm Tibial Stabilize Knee - [id number] Start: 03-05-2020 Dome Pat 38mm Pf c Sig Std Kn - [id number] Start: 09-09-2011 Comment on above: Description: OVAL DO ME PATELLA 3 PEG Functional Status Date Assessment Result Facility 03-09-2020 Are you deaf, or do you have serious difficulty hearing No 03/09/2020 4:06 PM Hardy Chicas RN No [facility] 03-09-2020 Are you blind, or do you have serious difficulty seeing, even when wearing glasses No 03/09/2020 4:06 PM Hardy Chicas RN No [facility] 03-09-2020 Do you have serious difficulty walking or climbing stairs Yes 03/09/2020 4:06 PM Hardy Chicas RN Yes [facility] 03-09-2020 Do you have difficul ty dressing or bathing Yes 03/09/2020 4:06 PM Hardy Chicas RN Yes [facility] 03-09-2020 Because of a physica l, mental, or emotional condition, do you have difficulty doing errands alone such as visiting a physician's office or shopping Yes 03/09/2020 4:06 PM Hardy Chicas RN Yes [facility] Mental Status Date Assessment Result Facility 10-11-2024 Cognitive function Awake;Alert;A ppropriate; Follows Commands [facility] Work Phone: 03-09-2020 Because of a physica l, mental, or emotional condition, do you have serious difficulty concentrating, remembering, or making decisions No 03/09/2020 4:06 PM Hardy Chicas RN No [facility] Clinical Notes 12-03-2019 to 10-11-2024 Note Date & Type Note Facility 10-11-2024 Evaluation note Diagnosis Onset Date Resolution Chest pain acute October 11, 2024 9:12am Atrial fibrillation with RVR resolved October 11, 2024 9 :12am [facility] Work Phone: 1(410) 556-112207-07-2025 Discharge summary [facility] Medical Records Department [address] [place] [address] Emergency Department Summary 10/11/24 MR#: [id number] Acct: [id number] Name: KESHA CARMICHAEL Rep #:[id number] : 1945 79 From: Ruiz Reaves DO PCP: Dr. Chip Arreola MD Status:ADM I N [facility] History of Present Illness Chief Complaint: [...] blood pressure and possibility of inferior wall CA. They held off on aspirin aswell and prehospital she was onXarelto. [facility] Medical History Non-rheumatic tricuspid valve insufficiency Paroxysmal atrial fibrillation Acute on chronic diastolic (congestive) heart failure Secondary pulmonary arterial hypertension Essential (primary) hypertension Persistent atrial fibrillation RONALDO (obstructive sleep apnea) Obesity, Class III, BMI 40-49.9 (morbid obesity) Malignant neoplasm of left breast, estrogen receptor positive Type 2 diabetes mellitus Osteoarthritis Migraines Knee pain, chronic Inferior CA Hyperglycemia Epistaxis Home Medications ?Medication ?Instructions ?Recorded [...] Patient follow commands that she was at [facility] the year is 2024 Skin: Warm, [...] STEMI therefore STEMI alert was called on-call epic ambulatory specialists Dr. Blum came down and evaluated the patient at bedside. He is recommending aspirin and beta-jarod. He is also requesting aspirin, heparin drip, nitroglycerin drip which were all ordered multiple EKGs were obtained and reviewed therefore after this further review by epic ambulatory specialists he also would prefer to get rate [...] % (Auto) 62.4 Lymph % (Auto) 30.4 [place] % (Auto) 5.7 Eos % (Auto) 0.6 [...] Paroxysmal atrial fibrillation, Chest pain, Non-ST elevation CA (NSTEMI) Primary Care Provider: Chip Arreola Disposition Disposition: Acute Care Hospital [facility] What to do if you have Problems For any increased pain, shortness of breath, bleeding, nausea or vomiting, chestpain, or any unexpected problems, contact your Primary Care Provider. Call [facility] ([phone]) or report tothe closest Emergency Room. Call 911 if necessary. 10/11/24 1038 Cosigner Signature (if applicable): CC: Dr. Chip Arreola MD ~ Signed [facility]07-07-2025 History and physical note [facility] Medical Records Department [address] [place] [address] H&P Exam - Hospitalist 10/11/24 1026 MR#: [id number] Acct: [id number] Name: KESHA CARMICHAEL Rep #:[id number] : 1945 79 From: Dayanna Miranda DO PCP: Dr. Chip Arreola MD Status:ADM I N Location: ICU ICU05-1 HPI - General General Date of Admission: 10/11/24 Date of Service: 10/11/24 Chief Complaint: Chest pain HPI Narrative KESHA CARMICHAEL, is a 79 F who presents with epistaxis and chest pain. This is [id number] male whohas a history of A-fib on [...] heart rate is fast all the time. [facility] Medical History Non-rheumatic tricuspid valve insufficiency Paroxysmal atrial fibrillation Acute on chronic diastolic (congestive) heart failure Secondary pulmonary arterial hypertension Essential (primary) hypertension Persistent atrial fibrillation RONALDO (obstructive sleep apnea) Obesity, Class III, BMI 40-49.9 (morbid obesity) Malignant neoplasm of left breast, estrogen receptor positive Type 2 diabetes mellitus Osteoarthritis Migraines Knee pain, chronic Inferior CA Hyperglycemia Epistaxis Home Medications ?Medication ?Instructions ?Recorded [...] % (Auto) 62.4, Lymph % (Auto) 30.4, [place] % (Auto) 5.7, Eos % (Auto) 0.6, [...] on oxygen. Charges/Coding Visit Charges Inpatient E&M: 19344 Init Hosp L3 10/11/24 1033 Cosigner Signature (if applicable): CC: Dr. Dayanna Miranda DO; Dr. Chip Arreola MD~ Signed [facility]07-07-2025 Radiology Diagnostic study note [facility] Imaging Services [address] [place], [place] [id number] Chest PA and Lateral MR#: [id number] Acct: [id number] Name: KESHA CARMICHAEL Rep #: [id number] : 1945 F 79 From: Pet er Amalia COMBS PCP: Dr. Chip Arreola MD Status: ADM I N Study:Chest PA and Lateral Date of Exam: 10/11/24 Exam# [id number] Ordering Dr: Kimberli Reaves DO PROCEDURE: CHEST [...] hemidiaphragm, stable since August 2018 Reading Location: [facility] CC: Dr. Ruiz Reaves DO; Dr. Chip Arreola MD ~ Carpenter Foreman: Signed [facility]07-03-2025 Instructions* Patient Instructions* Dominga Reese PA-C - 10/07/2024 9:15 AM EDT Dominga Lewis [phone] (Chantal-Rvda Master Certified Rv Technician) You may do the Cruzito 6 exercises: Rows, Biceps Curls, Triceps, Shrugs, Free weights up overhead & Close fryline attendant pull downs. Avoid these exercises: Flys, seated flies, upright rows, dips, push ups or pull ups. If the elbow is away, you will pay. documented in this encounterThe [facility]07-[facility]25 NoteHNO ID: [id number] Author: DOMINGA REESE PA-C Service: ? Author Type: Physician Delicatessen Manager Type: Progress Notes Filed: 10/07/2024 09:15 Note Text: [facility] NOTE Department of Orthopaedics Dayanna Lewis M.D. NAME: Kesha Curiel [facility] NO.: [id number] DATE: October 07, 2024 Kesha returns for [...] result) Impression: IMPRESSION: Degenerative changes as described. Carpenter Foreman: RG Transcribe Date/Time: Jun 22 2024 8:45P... XR SHOULDER GENERAL 3V OR MORE AP/TRUE AP/OTHER RIGHT Exam End: 06/18/2024 1:23 PM (Final result) Impression: IMPRESSION: Degenerative changes as described. Carpenter Foreman: RG Transcribe Date/Time: Jun 22 2024 8:45P... [...] these instructions. Informed Consent Consent Obtained: Verbal Mcgehee Protocol A moment to CARE was completed. [...] inserted. SIGN OUT No specimen collected. [facility] History of Present illness Narrative* Dominga Reese PA-C - 10/07/2024 9:12 AM EDTAssociated Order(s): Large Joint Arthro/Inj: bilateral glenohumerals Post-Procedure Diagnose(s): Rotator cuff tear arthropathy, right; Rotator cuff tear arthropathy, left [facility] NOTE Department of Orthopaedics Dayanna Lewis M.D. NAME: Kesha Curiel [facility] NO.: [id number] DATE: October 07, 2024 Kesha returns for [...] result) Impression: IMPRESSION: Degenerative changes as described. Carpenter Foreman: RG Transcribe Date/Time: Jun 22 2024 8:45P... XR SHOULDER GENERAL 3V OR MORE AP/TRUE AP/OTHER RIGHT Exam End: 06/18/2024 1:23 PM (Final result) Impression: IMPRESSION: Degenerative changes as described. Carpenter Foreman: RG Transcribe Date/Time: Jun 22 2024 8:45P... [...] these instructions. Informed Consent Consent Obtained: Verbal Mcgehee Protocol A moment to CARE was completed. [...] implant(s) inserted. SIGN OUT No specimen collected. Dominga Reese PA-C documented in this encounterThe [facility]07-[facility] Telephone encounter Note * Telephone Encounter - Angy Phipps RN - 10/06/2024 9:21 AM EDT Patient calls and notified of results and providers instructions. Patient verbalizes understanding. Patient transferred to schedule consult with endocrinology. Angy Phipps RN [facility]07-02-2025 Miscellaneous Notes* Telephone Encounter - Angy [...] what we should do. documented in this encounterThe [facility]07-[facility]25 Telephone encounter Note * Telephone Encounter - Shadia Sunshine LPN - 10/05/2024 5:08 PM EDT Left message to call and speak with nurse. [facility]07-01-2025 Progress note* Result Encounter Note - Belkys Mcintyre APRN.CNP - 10/05/2024 8:35 AM EDT Vitamin D level is okay. Calcium levels, kidney function, liver function, and blood counts are normal. Parathyroid hormone is even higher. I am going to consult endocrine. I just want them to weigh in and decide what we should do. [facility]06-30-2025 Instructions* Patient Instructions* Belkys Mcintyre APRN.ANJEL [...] review all the medicines you take, even erpu-vun-yqdikfr medicines. As you get older, the way [...] have certain medical conditions. documented in this encounterThe [facility]06-[facility]-2025 NoteHNO ID: [id number] Author: BELKYS MCINTYRE APRN.CNP Service: ? Author [...] HISTORY Diagnosis Date Abnormal EKG afib, inf CA age undetermined Atrial fibrillation (HCC) Breast cancer [...] long-term current use of insulin ([facility]) 04/11/2016 PAST SURGICAL HISTORY Procedure [...] 1 tablet by mouth once daily. vit C,Q-Us-krnns-lutein-zeaxan (PRESERVISION AREDS-2) 250-90-40-1 mg Take 1 capsule [...] Mother Hypertension Mother Hypertension Father Heart Father CA Diabetes Father Kidney Disease Sister Heart disease [...] Maternal Grandmother No Kn (more content not included)...[facility]06-30-2025 History of Present illness Narrative* Belkys Mcintyre, OPTOMETRIST.DIAGRAM CLERK - 10/04/2024 10:20 AM EDT This is [...] HISTORY Diagnosis Date Abnormal EKG afib, inf CA age undetermined Atrial fibrillation (HCC) Breast cancer [...] long-term current use of insulin ([facility]) 04/11/2016 PAST SURGICAL HISTORY Procedure [...] 1 tablet by mouth once daily. vit C,X-Wl-xnjxs-lutein-zeaxan (PRESERVISION AREDS-2) 250-90-40-1 mg Take 1 capsule [...] Mother Hypertension Mother Hypertension Father Heart Father CA Diabetes Father Kidney Disease Sister Heart disease [...] needed for worsening/no improvement. Belkys Mcintyre CNP, CONTRIBUTION SOLICITOR documented in this encounterThe [facility] Hospital04-21-2025 Telephone encounter Note * Telephone Encounter - Belkys Mcintyre APRN.CNP - 07/26/2024 8:00 AM EDT The following approved medication requests have been transmitted electronically. Requested Prescriptions Pending Prescriptions Disp Refills valsartan (DIOVAN) 160 mg tablet 90 tablet 3 Sig: Take 1 tablet by mouth once daily. Belkys Mcintyre APRN.CNP [facility]04-21-2025 Miscellaneous Notes* Telephone Encounter - Belkys Mcintyre APRN.CNP - 07/26/2024 8:00 AM EDT The following approved medication requests have been transmitted electronically. Requested Prescriptions Pending Prescriptions Disp Refills valsartan (DIOVAN) 160 mg tablet 90 tablet 3 Sig: Take 1 tablet by mouth once daily. Belkys Mcintyre APRN.CNP documented in this encounterThe [facility] Hospital03-20-2025 NoteHNO ID: [id number] Author: DAYANNA LEWIS MD Service: ? Author Type: Physician Type: Progress Notes Filed: 06/24/2024 08:58 Note Text: [facility] NOTE Department of Orthopaedics Dayanna Lewis M.D. NAME: Kesha Carmichael [facility] NO.: [id number] DATE: June 24, 2024 Kesha returns for [...] voiced understanding of these instructions. Informed Consent Mcgehee Protocol A moment to CARE was completed. [...] should not hesitate to call. Dayanna Lewis M.D.[facility]03-20-2025 History of Present illness Narrative* Dayanna Lewis MD - 06/24/2024 8:50 AM EDTAssociated Order(s): Large Joint Arthro/Inj: bilateral glenohumerals Post-Procedure Diagnose(s): Rotator cuff tear arthropathy, left; Rotator cuff tear arthropathy, right [facility] NOTE Department of Orthopaedics Dayanna Lewis M.D. NAME: Kesha Curiel [facility] NO.: [id number] DATE: June 24, 2024 Kesha returns for [...] voiced understanding of these instructions. Informed Consent Mcgehee Protocol A moment to CARE was completed. [...] call. Dayanna Lewis M.D. documented in this encounterThe [facility] Hospital03-14-2025 History of Present illness Narrative* Lona [...] PATIENT PRESENTS WITH AN IMPLANTABLE OR ATTACHED RECLAMATION ENGINEER: No RADIOLOGY DEPARTMENT: General X-ray: Exam(s) Completed: Upper Extremity X- Ray(s): Shoulder, AP / TRUE AP bilateral , Y VIEW PERIPHERAL IV DATA: Not applicable SIGNED BY: RT Joann(Charlie) June 18, 2024 1:30 PM documented in this encounterThe [facility] Hospital03-14-2025 NoteHNO ID: [id number] Author: LONA LOVING RT(Charlie) Service: ? Author [...] PATIENT PRESENTS WITH AN IMPLANTABLE OR ATTACHED RECLAMATION ENGINEER: No RADIOLOGY DEPARTMENT: General X-ray: Exam(s) Completed: Upper Extremity X-Ray(s): Shoulder, AP / TRUE AP bilateral , Y VIEW PERIPHERAL IV DATA: Not applicable SIGNED BY: RT Joann(Charlie) June 18, 2024 1:30 [facility]03-03-2025 NoteHNO ID: [id number] Author: BLOSSOM WHITE, EDWIN Service: ? Author [...] since last visit. Soreness from fall in [place]. Pt. will see physician soon regarding her [...] rail Functional Gait Asse (more content not included)...[facility] 06-07-2024 History of Present illness Narrative* [...] since last visit. Soreness from fall in [place]. Pt. will see physician soon regarding her [...] Gait belt utilized during session for safety. Self-Usp Management: 1: discussed holding chart due to [...] 1052 Blossom White PT documented in this encounterThe [facility] Hospital02-24-2025 Telephone encounter Note * Telephone Encounter - Areli Moore MA - 05/31/2024 1:16 PM EST Pt notified of results via [employer]. Areli Moore Ma [facility]02-24-2025 Miscellaneous Notes* Telephone Encounter - Areli Moore MA - 05/31/2024 1:16 PM EST Pt notified of results via [employer]. Areli Moore Ma * Telephone Encounter - [...] in the sacroiliac joints. documented in this encounterThe [facility] Hospital02-24-2025 Telephone encounter Note * Telephone Encounter - Areli Moore MA - 05/31/2024 1:16 PM EST ----- Message from Belkys Mcintyre sent at 05/31/2024 8:42 AM EST ----- Nothing acute on x-ray. Some arthritis of the lumbar spine and mild arthritis in the sacroiliac joints. [facility]02-24-2025 Progress note* Result Encounter Note - Belkys Mcintyre APRN.CNP - 05/31/2024 8:42 AM EST Nothing acute on x-ray. Some arthritis of the lumbar spine and mild arthritis in the sacroiliac joints. [facility]02-21-2025 Progress note* Result Encounter Note - Belkys Mcintyre APRN.CNP - 05/28/2024 4:42 PM EST Urine for microalbumin creatinine ratio has improved showing improved. History of diabetic nephropathy. Hemoglobin A1c 6.2%. Prediabetes is stable. Ionized calcium is slightly elevated but vitamin D level is therapeutic. Will monitor. All other labs look good. Cholesterol levels are great. [facility]02-21-2025 Miscellaneous Notes* Result Encounter Note - Belkys Mcintyre APRN.CNP - 05/28/2024 4:42 PM EST Urine for microalbumin creatinine ratio has improved showing improved. History of diabetic nephropathy. Hemoglobin A1c 6.2%. Prediabetes is stable. Ionized calcium is slightly elevated but vitamin D level is therapeutic. Will monitor. All other labs look good. Cholesterol levels are great. documented in this encounterThe [facility] Hospital02-20-2025 History of Present illness Narrative* Steve [...] PATIENT PRESENTS WITH AN IMPLANTABLE OR ATTACHED RECLAMATION ENGINEER: No RADIOLOGY DEPARTMENT: General X-ray: Exam(s) Completed: Pelvis X-Ray: Pelvis with Hip Right PERIPHERAL IV DATA: Not applicable SIGNED BY: RT Gwen(R) May 27, 2024 9:31 AM documented in this encounterThe [facility] Hospital02-20-2025 NoteHNO ID: [id number] Author: STEVE RIGGS RT(R) Service: Radiology Author [...] PATIENT PRESENTS WITH AN IMPLANTABLE OR ATTACHED RECLAMATION ENGINEER: No RADIOLOGY DEPARTMENT: General X-ray: Exam(s) Completed: Pelvis X-Ray: Pelvis with Hip Right PERIPHERAL IV DATA: Not applicable SIGNED BY: RT Gwen(R) May 27, 2024 9:31 [facility]02-20-2025 Instructions* Patient Instructions* Belkys Mcintyre APRN.CNP - 05/27/2024 9:07 AM EST - CLOTRIMAZOLE-BETAMETHASONE 1 %-0.05 % LOTION 2 x day for 14 days to right breast. Send message in2 weeks. If not resolved completely, send to breast care center - XR HIP GENERAL 3V PELV/AP/LAT RIGHT - Get Labs today documented in this encounterThe [facility] Hospital02-20-2025 NoteHNO ID: [id number] Author: BELKYS MCINTYRE APRN.CNP Service: ? Author Type: Nurse Practitioner Type: Progress Notes Filed: 05/27/2024 09:12 Note Text: This is a 79 year old female who presents today with: Patient presents with: Fall: Fell while in [place] one week ago HISTORY OF PRESENT ILLNESS: Kesha Carmichael is a 79 year old female. Patient presents with: Fall: Fell while in [place] one week ago While in [place] visiting sister, there was a mishap with [...] HISTORY Diagnosis Date Abnormal EKG afib, inf CA age undetermined Atrial fibrillation (HCC) Breast cancer [...] 1 tablet by mouth once daily. vit C,S-Ax-vjwew-lutein-zeaxan (PRESERVISION AREDS-2) 250-90-40-1 mg Take 1 capsule [...] Mother Hypertension Mother Hypertension Father Heart Father CA Diabetes Father Kidney Disease Sister Heart disease [...] kg (205 lb) Sp (more content not included)...[facility]02-20-2025 History of Present illness Narrative* Belkys Mcintyre, OPTOMETRIST.[facility] - 05/27/2024 8:41 AM EST This is a 79 year old female who presents today with: Patient presents with: Fall: Fell while in [place] one week ago HISTORY OF PRESENT ILLNESS: Kesha Carmichael is a 79 year old female. Patient presents with: Fall: Fell while in [place] one week ago While in [place] visiting sister, there was a mishap with [...] HISTORY Diagnosis Date Abnormal EKG afib, inf CA age undetermined Atrial fibrillation (HCC) Breast cancer [...] long-term current use of insulin ([facility]) 04/11/2016 PAST SURGICAL HISTORY Procedure [...] 1 tablet by mouth once daily. vit C,Z-Fp-vdtfv-lutein-zeaxan (PRESERVISION AREDS-2) 250-90-40-1 mg Take 1 capsule [...] Mother Hypertension Mother Hypertension Father Heart Father CA Diabetes Father Kidney Disease Sister Heart disease [...] as needed for worsening/no improvement. Belkys Mcintyre APRN.DIAGRAM CLERK documented in this encounterThe [facility] Hospital02-19-2025 NoteHNO ID: [id number] Author: BLOSSOM WHITE PT Service: ? Author [...] and function . Patient education as noted. Self-Usp Management: 1: discussed the importance of coming [...] Session Stop Time : 1751 Blossom White, [facility]02-19-2025 History of Present illness Narrative* Blossom [...] LEVEL OF FUNCTION: TREATMENT: Therapeutic Exercise: 1: Yippee Artsfit stepper seat 12, level 2, 1:1 throughout, [...] and function . Patient education as noted. Self-Usp Management: 1: discussed the importance of coming [...] 1750 Blossom White PT documented in this encounterThe [facility] Hospital02-17-2025 Telephone encounter Note * Telephone Encounter - Belkys Mcintyre APRN.CNP - 05/24/2024 1:52 PM EST Probably should be evaluated to make sure you are ok. [facility]02-17-2025 Miscellaneous Notes* Telephone Encounter - Belkys Mcintyre APRN.CNP - 05/24/2024 1:52 PM EST Probably should be evaluated to make sure you are ok. documented in this encounterThe [facility] Hospital02-17-2025 NoteHNO ID: [id number] Author: BLOSSOM WHITE PT Service: ? Author [...] Lumbar Extension: Minimal limitation Lumbar R Side [place]: Normal Lumbar L Side [place]: Normal Lumbar R Side-Bend: Produces, Moderate limitation [...] deviations identified in the objective section above. Self-Usp Management: 1: advised pt. to see physician [...] Session Stop Time : 1005 Blossom White [facility]02-17-2025 History of Present illness Narrative* ChristianAbigailOlegBlossom [...] Lumbar Extension: Minimal limitation Lumbar R Side [place]: Normal Lumbar L Side [place]: Normal Lumbar R Side-Bend: Produces, Moderate limitation [...] deviations identified in the objective section above. Self-Usp Management: 1: advised pt. to see physician [...] 1005 Blossom White PT documented in this encounterThe [facility] Hospital02-03-2025 NoteHNO ID: [id number] Author: BLOSSOM WHITE PT Service: ? Author [...] FOR NEXT VISIT: Pt will be in [place] for 1 week, will return to therapy. [...] Session Stop Time : 1044 Tanya Meza, WOOD FENCE ERECTOR Blossom White, [facility]02-03-2025 History of Present illness Narrative* Blossom [...] FOR NEXT VISIT: Pt will be in [place] for 1 week, will return to therapy. [...] 1044 RONIT Espinoza, PT documented in this encounterThe Jewish Hospital01-31-2025 History of Present illness Narrative* Blossom White, PT - 05/07/2024 10:19 AM EST [email or web address]:[email or web address] Access Code: [email or web address] URL: [email or web address] Date: 05-07-2024 Prepared By: Blossom White [...] Patient to be seen for Neuromuscular re-education (80496), Therapeutic exercise (93113), Manual therapy (15733), Therapeutic activities (52667), Self-skilled nursing management (24320), Gait Training (71243) PLAN FOR NEXT VISIT: Pt. leaves for [place] for a week on Friday and will [...] and function . Patient education as noted. Self-Usp Management: 1: discussed purpose of lumbar flexion [...] 1039 Blossom White PT documented in this encounterThe [facility] Hospital01-31-2025 NoteHNO ID: [id number] Author: BLOSSOM WHITE PT Service: ? Author [...] Patient to be seen for Neuromuscular re-education (37917), Therapeutic exercise (50273), Manual therapy (14950), Therapeutic activities (89606), Self-skilled nursing management (20927), Gait Training (49319) PLAN FOR NEXT VISIT: Pt. leaves for [place] for a week on Friday and will [...] staggers but recovers, ca (more content not included)...[facility]01-27-2025 NoteHNO ID: [id number] Author: BLOSSOM WHITE, PT Service: ? Author [...] and gait belt. Patient education as noted. Self-Usp Management: 1: discussed how the BUE's could [...] Session Stop Time : 923 Blossom White, [facility]01-27-2025 History of Present illness Narrative* Blossom [...] and gait belt. Patient education as noted. Self-Usp Management: 1: discussed how the BUE's could [...] 923 Blossom White PT documented in this encounterThe [facility] Hospital01-24-2025 NoteHNO ID: [id number] Author: REGGIE NELSON PT Service: ? Author [...] Time : 1055 Tanya Meza, RONIT Nelson, [facility]01-24-2025 History of Present illness Narrative* Reggie [...] 1055 RONIT Espinoza PT documented in this encounterThe [facility] Hospital01-20-2025 NoteHNO ID: [id number] Author: BLOSSOM WHITE PT Service: ? Author [...] with an (*). Patient education as noted. Self-Usp Management: Skilled Intervention: Skilled judgment in the [...] Session Stop Time : 1349 Blossom White, [facility]01-20-2025 History of Present illness Narrative* Blossom [...] with an (*). Patient education as noted. Self-Usp Management: Skilled Intervention: Skilled judgment in the [...] 1349 Blossom White PT documented in this encounterThe [facility] Hospital01-16-2025 Telephone encounter Note * Telephone Encounter - Stoney Lopez - 04/22/2024 10:53 AM ESTSummary: Picked up the phone I called the patient, the patient picked up and successfully rescheduled her appointment. The patient rescheduled her appointment from 07/02/2024 @ 1:00 pm to 07/09/2024 @ 2:[address] Abiola Weaver [facility]. Telephone encounter was left. [facility]01-16-2025 Miscellaneous Notes* Telephone Encounter - Stoney Lopez - 04/22/2024 10:53 AM ESTSummary: Picked up the phone I called the patient, the patient picked up and successfully rescheduled her appointment. The patient rescheduled her appointment from 07/02/2024 @ 1:00 pm to 07/09/2024 @ 2:[address] Abiola Weaver [facility]. Telephone encounter was left. documented in this encounterThe Jewish Hospital01-13-2025 Instructions* Patient Instructions* Belkys Mcintyre APRN.[facility] - 04/19/2024 2:15 PM EST - Follow up in June as scheduled - Keflex (cephalexin) 500 mg 2 x day for 5 days documented in this encounterThe Jewish Hospital01-13-2025 NoteHNO ID: [id number] Author: BELKYS MCINTYRE APRN.CNP Service: ? Author [...] HISTORY Diagnosis Date Abnormal EKG afib, inf CA age undetermined Atrial fibrillation (HCC) Breast cancer [...] 1 tablet by mouth once daily. vit C,N-La-mrjyj-lutein-zeaxan (PRESERVISION AREDS-2) 250-90-40-1 mg Take 1 capsule [...] Mother Hypertension Mother Hypertension Father Heart Father CA Diabetes Father Kidney Disease Sister Heart disease [...] Normocephalic. Cardiovascular: Rate and (more content not included)...[facility]01-13-2025 History of Present illness Narrative* Belkys Mcintyre APRN.[facility] - 04/19/2024 2:03 PM EST This [...] HISTORY Diagnosis Date Abnormal EKG afib, inf CA age undetermined Atrial fibrillation (HCC) Breast cancer [...] long-term current use of insulin ([facility]) 04/11/2016 PAST SURGICAL HISTORY Procedure [...] 1 tablet by mouth once daily. vit C,H-Re-psoea-lutein-zeaxan (PRESERVISION AREDS-2) 250-90-40-1 mg Take 1 capsule [...] Mother Hypertension Mother Hypertension Father Heart Father CA Diabetes Father Kidney Disease Sister Heart disease [...] or as needed for worsening/no improvement. Belkys Mcnityre APRN.CNP documented in this encounterThe [facility] Hospital01-13-2025 NoteHNO ID: [id number] Author: BLOSSOM WHITE, PT Service: ? Author [...] Gait belt utilized during session for safety. Self-Usp Management: 1: advised using a long handled pooper propellant assembler to avoid bending forward to grain picker after her dog. debone processing supervisor after the dog when the dog [...] activities of daily ondina (more content not included)...[facility]01-13-2025 History of Present illness Narrative* Blossom [...] Gait belt utilized during session for safety. Self-Usp Management: 1: advised using a long handled pooper propellant assembler to avoid bending forward to grain picker after her dog. debone processing supervisor after the dog when the dog [...] 924 Blossom White PT documented in this encounterThe [facility] Hospital01-09-2025 Telephone encounter Note * Telephone Encounter - Belkys Mcintyre APRN.CNP - 04/15/2024 10:02 AM EST Absolutely. It was only to help. My gosh, I am sorry for all that. [facility]01-09-2025 Miscellaneous Notes* Telephone Encounter - Belkys Mcintyre APRN.CNP - 04/15/2024 10:02 AM EST Absolutely. It was only to help. My gosh, I am sorry for all that. documented in this encounterThe [facility] Hospital12-30-[facility]24 History of Present illness Narrative* Anuj Navarro MD - 04/05/2024 2:40 PM EST Images from the original note were not included. [facility] SECTION [facility] REGIONAL CARDIOLOGY Cardiology ([facility]) [address] [facility] [address] OUTPATIENT VISIT DATE 04/05/2024 PRIMARY CARE PHYSICIAN: Chip Arreola MD [address] [place] [address] HISTORY OF PRESENT ILLNESS: Ms. Carmichael is [...] HISTORY Diagnosis Date Abnormal EKG afib, inf CA age undetermined Atrial fibrillation (HCC) Breast cancer (HCC) 03/2018 left breast Closed fracture of right distal radius 09/10/2021 Congestive heart failure ([facility]) 09/24/2018 Epistaxis balloon out osteo History of colonoscopy [address] Stoney Hernandez , normal HTN (hypertension) Hyperglycemia Knee pain, chronic Lt Migraines stopped when she retired Normal cardiac stress test 2004 Dr. Romero Osteoarthritis Seasonal allergies Type 2 diabetes mellitus without complication, without long-term current use of insulin ([facility]) 04/11/2016 PAST SURGICAL HISTORY Procedure [...] Mother Hypertension Mother Hypertension Father Heart Father CA Diabetes Father Kidney Disease Sister Heart disease [...] mouth once daily.^Disp: 90 tablet^Rfl: 3 vit C,G-Xx-ezweo-lutein-zeaxan (PRESERVISION AREDS-2) 250-90-40-1 mg^Take 1 capsule by [...] detail. Anuj Navarro MD documented in this encounterThe Jewish Hospital12-30-2024 NoteHNO ID: [id number] Author: ANUJ NAVARRO MD Service: ? Author Type: Physician Type: Progress Notes Filed: 04/05/2024 14:49 Note Text: [facility] CARDIOLOGY Cardiology ([place] [facility] [address] [facility] [address] OUTPATIENT VISIT DATE 04/05/2024 PRIMARY CARE PHYSICIAN: Chip Arreola MD [address] [place] [address] HISTORY OF PRESENT ILLNESS: Ms. Carmichael is [...] HISTORY Diagnosis Date Abnormal EKG afib, inf CA age undetermined Atrial fibrillation ([facility]) Breast cancer ([facility]) 03/2018 left breast Closed fracture of right distal radius 09/10/2021 Congestive heart failure ([facility]) 09/24/2018 Epistaxis balloon out osteo History of colonoscopy [address] Stoney Hernandez , normal HTN (hypertension) Hyperglycemia Knee pain, chronic Lt Migraines stopped when she retired Normal cardiac stress test 2004 Dr. Romero Osteoarthritis Seasonal allergies Type 2 diabetes mellitus without complication, without long-term current use of insulin ([facility]) 04/11/2016 PAST SURGICAL HISTORY Procedure [...] Mother Hypertension Mother Hypertension Father Heart Father CA Diabetes Father Kidney Disease Sister Heart disease [...] mouth once daily.Disp: 90 tabletRfl: 3 vit C,S-Pj-sgecj-lutein-zeaxan (PRESERVISION AREDS-2) 250-90-40-1 mgTake 1 capsule by mouth twice daily with meals.Disp: Rfl: Cholecalciferol, Vitamin D3, 50 mcg (more content not included)...[facility]12-23-2024 History of Present illness Narrative* Blossom White, PT - 03/29/2024 11:35 AM EST Program_ID:[id number] Access Code: [email or web address] URL: [email or web address] Date: 03-29-2024 Prepared By: Blossom White [...] Planned: 6 Planned Treatment Interventions: Neuromuscular re-education (11616), Therapeutic exercise (70208), Manual therapy (71633), Therapeutic activities (80332), Self- skilled nursing management (67957), Gait Training (37023) PLAN FOR NEXT VISIT: FGA. Assess symptom [...] Normal Lumbar Extension: Produces Lumbar R Side [place]: Normal Lumbar L Side [place]: Decreased pain, Moderate limitation Lumbar R Side-Bend: [...] States/Identifies, Return Demonstration TREATMENT: PT Treatment Interventions: Self-Usp Management, Therapeutic Exercise Evaluation Therapeutic Exercise: 1: *Access Code: [email or web address] URL: [email or web address] Date: 03/29/2024 Prepared by: Blossom Corrales [...] and function . Patient education as noted. Self-Usp Management: 1: discussed directional preference 2: advised [...] 1147 Blossom White PT documented in this encounterThe Jewish Hospital12-23-2024 NoteHNO ID: [id number] Author: BLOSSOM WHITE PT Service: ? Author [...] Planned: 6 Planned Treatment Interventions: Neuromuscular re-education (79393), Therapeutic exercise (20579), Manual therapy (52354), Therapeutic activities (17741), Self-skilled nursing management (70541), Gait Training (97882) PLAN FOR NEXT VISIT: FGA. Assess symptom [...] dysfunction) 36 (moderate d (more content not included)...[facility]12-19-2024 Telephone encounter Note* Telephone Encounter - [...] and advise. APPT 04/05 Divya José MA [facility]12-19-2024 Miscellaneous Notes* Telephone Encounter - Divya [...] 04/05 Divya José MA documented in this encounterThe Jewish Hospital12-03-2024 History of Present illness Narrative* Richard [...] PATIENT PRESENTS WITH AN IMPLANTABLE OR ATTACHED RECLAMATION ENGINEER: No RADIOLOGY DEPARTMENT: General X-ray: Exam(s) Completed: Spine X-Ray(s): Thoracic and Lumbar AP / LAT / L5-S1 PERIPHERAL IV DATA: Not applicable SIGNED BY: RT Francie(R) March 09, 2024 11:46 AM documented in this encounterThe Jewish Hospital12-03-2024 NoteHNO ID: [id number] Author: RICHARD BARRIOS RT(Charlie) Service: ? Author Type: Rn Neonatal Icu Type: Progress Notes Filed: 03/09/2024 12:06 Note [...] PATIENT PRESENTS WITH AN IMPLANTABLE OR ATTACHED RECLAMATION ENGINEER: No RADIOLOGY DEPARTMENT: General X-ray: Exam(s) Completed: Spine X-Ray(s): Thoracic and Lumbar AP / LAT / L5-S1 PERIPHERAL IV DATA: Not applicable SIGNED BY: RT Francie(R) March 09, 2024 11:46 [facility]12-03-2024 Instructions* Patient Instructions* Belkys Mcintyre APRN.CNP - 03/09/2024 10:52 AM EST 1) Get Xray thoracic and lumbar 2) Consult physical therapy 3) Get urinalysis (collect upstairs) 4) Gabapentin 100 mg 3 x day 5) Keep appt. In June documented in this encounterThe Jewish Hospital12-03-2024 NoteHNO ID: [id number] Author: BELKYS MCINTYRE APRN.ANJEL Service: ? Author [...] to brush hair. Saw a neurologist in [place] 3-5 years ago. The tremors really bother her. Drinks caffeine in diet pepsi. Occ drinks regular diet pepsi. PAST MEDICAL HISTORY: PAST MEDICAL HISTORY Diagnosis Date Abnormal EKG afib, inf CA age undetermined Atrial fibrillation (HCC) Breast cancer (HCC) 03/2018 left breast Closed fracture of right distal radius 09/10/2021 Congestive heart failure ([facility]) 09/24/2018 Epistaxis balloon out osteo History of colonoscopy [address] Stoney Hernandez , normal HTN (hypertension) Hyperglycemia Knee pain, chronic Lt Migraines stopped when she retired Normal cardiac stress test 2004 Dr. Romero Osteoarthritis Seasonal allergies Type 2 diabetes mellitus without complication, without long-term current use of insulin ([facility]) 04/11/2016 PAST SURGICAL HISTORY Procedure [...] tablet by mouth daily with dinner. vit C,E-Gh-ftkxo-lutein-zeaxan (PRESERVISION AREDS-2) 250-90-40-1 mg Take 1 capsule [...] Mother Hypertension Mother Hypertension Father Heart Father CA Diabetes Father Kidney Disease Sister Heart disease [...] tobacco: Never Vaping Use (more content not included)...[facility]12-03-2024 History of Present illness Narrative* Belkys Mcintyre APRN.DIAGRAM CLERK - 03/09/2024 10:27 AM EST This is [...] hands to brush hair. [place] neurologist in [place] 3-5 years ago. The tremors really bother her. Drinks caffeine in diet pepsi. Occ drinks regular diet pepsi. PAST MEDICAL HISTORY: PAST MEDICAL HISTORY Diagnosis Date Abnormal EKG afib, inf CA age undetermined Atrial fibrillation (HCC) Breast cancer [...] long-term current use of insulin ([facility]) 04/11/2016 PAST SURGICAL HISTORY Procedure [...] tablet by mouth daily with dinner. vit C,T-Be-chedh-lutein-zeaxan (PRESERVISION AREDS-2) 250-90-40-1 mg Take 1 capsule [...] Mother Hypertension Mother Hypertension Father Heart Father CA Diabetes Father Kidney Disease Sister Heart disease [...] as needed for worsening/no improvement. Belkys Mcintyre APRN.DIAGRAM CLERK documented in this encounterThe Jewish Hospital09-20-2024 Telephone encounter Note * Telephone Encounter - Areli Moore MA - 12/26/2023 12:30 PM EDT Pt notified. Areli Moore MA [facility]09-20-2024 Miscellaneous Notes* Telephone Encounter - Areli Moore MA - 12/26/2023 12:30 PM EDT Pt notified. Areli Moore MA * Telephone Encounter - Chip Arreola MD - 12/26/2023 12:13 PM EDT sent * Telephone Encounter - Angy Phipps RN - 12/26/2023 11:56 AM EDT Patient calls to report that she has a dental appointment/procedure on Friday and needs [id number] min prior to the appointment. Pended previous prescription for review. Please call patient at [phone] if provider is willing to order prescription. Angy Phipps RN documented in this encounterThe Jewish Hospital09-20-2024 Telephone encounter Note * Telephone Encounter - Chip Arreola MD - 12/26/2023 12:13 PM EDT sent [facility] Telephone encounter Note* Telephone Encounter - Angy Phipps RN - 12/26/2023 11:56 AM EDT Patient calls to report that she has a dental appointment/procedure on Friday and needs [id number] min prior to the appointment. Pended previous prescription for review. Please call patient at [phone] if provider is willing to order prescription. Angy Phipps RN [facility]08-22-2024 Instructions* Patient Instructions* Belkys Mcintyre APRN.CNP - 11/27/2023 9:44 AM EDT 1) Follow up in 6 months 2) Will get labs same day after our visit documented in this encounterThe Jewish Hospital08-22-2024 NoteHNO ID: [id number] Author: BELKYS MCINTYRE APRN.CNP Service: ? Author [...] General (Family Medicine) Inocente Romero MD as Shell Plater (Cardiology) Antonio Cagle MD, PhD as Primary Staff Physician (Cardiology) David Galo MD as Consulting (Infectious Diseases) Dayanna Lewis MD as Consulting (Orthopedics) Chip Arreola MD as Home Care Provider (Family Medicine) Dayanna Lewis MD as Referring (Orthopedics) Bridgett Guzman RN as Black Top Spreader Machine Operator (Post Acute Care) Concerns today: Seeing eye doctor for infection left eye HPI Has an ulcer in left eye- using drops in left eye Getting better Active Problems ACTIVE PROBLEM LIST Intermediate Stage 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 Macular Degeneration of Both Eyes - 05/02/2023 Pseudophakia - 05/02/2023 Posterior Vitreous Detachment of Both Eyes - 05/02/2023 H/O Mitral Valve Disease - 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 Started asa a day. Aware of risks. Sees [facility] cardiology in [place] Morbid Obesity With Bmi of 40.0-44.9, Adult [...] No date: Abnormal EKG Comment: afib, inf CA age undetermined No date: Atrial fibrillation (HCC) 03/2018: Breast cancer ([facility]) Comment: left breast 09/10/2021: Closed [...] TONSILLECTOMY AND ADENOIDECTOMY Comment (more content not included)...[facility]08-22-2024 History of Present illness Narrative* Belkys Mcintyre APRN.DIAGRAM CLERK - 11/27/2023 9:14 AM EDT Chief Reason [...] General (Family Medicine) Inocente Romero MD as Shell Plater (Cardiology) Antonio Cagle MD, PhD as Primary Staff Physician (Cardiology) David Galo MD as Consulting (Infectious Diseases) Dayanna Lewis MD as Consulting (Orthopedics) Chip Arreola MD as Home Care Provider (Family Medicine) Dayanna Lewis MD as Referring (Orthopedics) Bridgett Guzman RN as Black Top Spreader Machine Operator (Post Acute Care) Concerns today: Seeing eye doctor for infection left eye HPI Has an ulcer in left eye- using drops in left eye Getting better Active Problems ACTIVE PROBLEM LIST Intermediate Stage 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 Started asa a day. Aware of risks. Sees [facility] cardiology in [place] Morbid Obesity With Bmi of 40.0-44.9, Adult [...] No date: Abnormal EKG Comment: afib, inf CA age undetermined No date: Atrial fibrillation (HCC) 03/2018: Breast cancer ([facility]) Comment: left breast 09/10/2021: Closed fracture of right distal radius 09/24/2018: Congestive heart failure ([facility]) No date: Epistaxis Comment: balloon [...] long-term current use of insulin ([facility]) PAST SURGICAL HISTORY 2011: ARTHRP [...] daily with dinner. 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 Carmichael, We are pleased to [...] report will be [facility] as part of your permanent medical record and are available for your continuing care. Thank you for allowing us to help in meeting your health care needs. Sincerely, Dr. Oquendo Interpreting Radiologist [facility] (Normal over 40) [facility]08-08-2024 Miscellaneous Notes* Letter - Coordinator, Mammography - 11/13/2023 9:37 PM EDT November 14, 2023 PID: [id number] Kesha Carmichael [address] [place] [address] Dear Ms. Carmichael, We are pleased to [...] report will be [facility] at [facility] as part of your permanent medical record and are available for your continuing care. Thank you for allowing us to help in meeting your health care needs. Sincerely, Dr. Oquendo Interpreting Radiologist [facility] (Normal over 40) documented in this encounterThe Jewish Hospital08-07-2024 History of Present illness Narrative* Abran [...] PATIENT PRESENTS WITH AN IMPLANTABLE OR ATTACHED RECLAMATION ENGINEER: No RADIOLOGY DEPARTMENT: Mammography PERIPHERAL IV DATA: Not applicable SIGNED BY: Delano Haywood November 12, 2023 1:35 PM documented in this encounterThe Jewish Hospital08-07-2024 NoteHNO ID: [id number] Author: ABRAN VILLANUEVA Mammo Tech Service: ? Author Type: Rn Neonatal Icu Type: Progress Notes Filed: 11/12/2023 13:44 Note [...] PATIENT PRESENTS WITH AN IMPLANTABLE OR ATTACHED RECLAMATION ENGINEER: No RADIOLOGY DEPARTMENT: Mammography PERIPHERAL IV DATA: Not applicable SIGNED BY: Abran Villanueva [employer] November 12, 2023 1:35 [facility]07-26-2024 NoteDate of Procedure 10/31/2023. Rn Neonatal Icu Information Spare Hand Carding: LV. Interpretation Right Eye Hyperfluorescence, Hypofluorescence. Left Eye Hyperfluorescence, Hypofluorescence.[id number] NoteDate of Procedure 10/31/2023. Rn Neonatal Icu Information Spare Hand Carding: LV. Interpretation Right Eye Findings include Drusen; Negative for Intraretinal fluid, Subretinal fluid. Left Eye Findings include Drusen; Negative for Intraretinal fluid, Subretinal fluid.[id number] History of Present illness Narrative* Abiola Weaver MD - 10/31/2023 12:30 PM EDT HPI: Patient presents for 6 mos f/u appt. Occasionally sees wavy lines with difficulty reading but this has been about the same. Stable floaters, no consistent flashes. Wondering if melatonin will help with AMD. Impression: 78 year old Female PAST MEDICAL HISTORY Diagnosis Date Abnormal EKG afib, inf CA age undetermined Atrial fibrillation (HCC) Breast cancer [...] long-term current use of insulin ([facility]) 04/11/2016 #. Intermediate nonexudative AMD, [...] PhD Vitreoretinal Surgery & Ocular Inflammatory Diseases [facility] documented in this encounterThe Jewish Hospital07-26-2024 NoteHNO ID: [id number] Author: ABIOLA WEAVER MD Service: ? Author [...] HISTORY Diagnosis Date Abnormal EKG afib, inf CA age undetermined Atrial fibrillation (HCC) Breast cancer ([facility]) 03/2018 left breast Closed fracture of right distal radius 09/10/2021 Congestive heart failure ([facility]) 09/24/2018 Epistaxis balloon out osteo History of colonoscopy [address] Stoney Hernandez , normal HTN (hypertension) Hyperglycemia Knee pain, chronic Lt Migraines stopped when she retired Normal cardiac stress test 2004 Dr. Romero Osteoarthritis Seasonal allergies Type 2 diabetes mellitus without complication, without long-term current use of insulin ([facility]) 04/11/2016 #. Intermediate nonexudative AMD, [...] PhD Vitreoretinal Surgery AND Ocular Inflammatory Diseases [facility]05-20-2024 History of Present illness Narrative* Anuj Navarro MD - 08/25/2023 11:00 AM EDT Images from the original note were not included. [facility] SECTION OF REGIONAL CARDIOLOGY Cardiology ([facility]) [address] [facility] [address] OUTPATIENT VISIT DATE 08/25/2023 PRIMARY CARE PHYSICIAN: Chip Arreola MD [address] [place] [address] HISTORY OF PRESENT ILLNESS: Ms. Carmichael is [...] HISTORY Diagnosis Date Abnormal EKG afib, inf CA age undetermined Atrial fibrillation (HCC) Breast cancer [...] long-term current use of insulin ([facility]) 04/11/2016 PAST SURGICAL HISTORY Procedure [...] Mother Hypertension Mother Hypertension Father Heart Father CA Diabetes Father Kidney Disease Sister Heart disease [...] daily with dinner.^Disp: 90 tablet^Rfl: 3 vit C,C-Vs-yrhib-lutein-zeaxan (PRESERVISION AREDS-2) 250-90-40-1 mg^Take 1 capsule by [...] reduction Anuj Navarro MD documented in this encounterThe Jewish Hospital03-22-2024 Miscellaneous Notes* Telephone Encounter - Viola [...] use of right arm Lisinopril Cough (home) [phone] (cell) Last Office Visit Date: 03/12/2023 Last [facility] Health Visit: Visit date not found Future Appointment: Visit date not found The patients preferred pharmacy has been captured for this encounter? yes Request is for script(s) to be escript to pharmacy. Viola Ybarra LPN documented in this encounterThe Jewish Hospital03-14-2024 Miscellaneous Notes* Telephone Encounter - Belkys [...] is not taking the potassium rx, her Integrated Circuit Ic Layout Designer told her potassium thickens her blood and [...] and let me know documented in this encounterThe [facility] Hospital12-06-2023 History of Present illness Narrative* Shannan [...] 12, 2023 12:15 PM documented in this encounterThe Jewish Hospital12-06-2023 History of Present illness Narrative* Chip [...] 1 tablet by mouth once daily. vit C,L-Fm-aelem-lutein-zeaxan (PRESERVISION AREDS-2) 250-90-40-1 mg Take 1 capsule [...] HISTORY Diagnosis Date Abnormal EKG afib, inf CA age undetermined Atrial fibrillation (HCC) Breast cancer (HCC) 03/2018 left breast Closed fracture of right distal radius 09/10/2021 Congestive heart failure ([facility]) 09/24/2018 Epistaxis balloon out osteo History of colonoscopy [address] Stoney Hernandez , normal HTN (hypertension) Hyperglycemia Knee pain, chronic Lt Migraines stopped when she retired Normal cardiac stress test 2004 Dr. Romero Osteoarthritis Seasonal allergies Type 2 diabetes mellitus without complication, without long-term current use of insulin ([facility]) 04/11/2016 PAST SURGICAL HISTORY Procedure [...] Mother Hypertension Mother Hypertension Father Heart Father CA Diabetes Father Kidney Disease Sister Heart disease [...] -stable. Chip Arreola MD documented in this encounterThe Jewish Hospital11-29-2023 Miscellaneous Notes* Telephone Encounter - Alvaro [...] accordingly. Alvaro Arechiga LPN documented in this encounterThe Jewish Hospital11-20-2023 Instructions* Patient Instructions* Anuj Navarro MD - 02/24/2023 10:34 AM EST We will repeat an echocardiogram in July documented in this encounterThe Jewish Hospital11-20-2023 History of Present illness Narrative* Anuj Navarro MD - 02/24/2023 10:20 AM EST Images from the original note were not included. [facility] SECTION OF REGIONAL CARDIOLOGY Cardiology ([facility]) [address] [facility] [address] OUTPATIENT VISIT DATE 02/24/2023 PRIMARY CARE PHYSICIAN: Chip Arreola MD [address] [place] [address] HISTORY OF PRESENT ILLNESS: Ms. Carmichael is [...] HISTORY Diagnosis Date Abnormal EKG afib, inf CA age undetermined Atrial fibrillation (HCC) Breast cancer (HCC) 03/2018 left breast Closed fracture of right distal radius 09/10/2021 Congestive heart failure ([facility]) 09/24/2018 Epistaxis balloon out osteo History of colonoscopy [address] Stoney Hernandez , normal HTN (hypertension) Hyperglycemia Knee pain, chronic Lt Migraines stopped when she retired Normal cardiac stress test 2004 Dr. Romero Osteoarthritis Seasonal allergies Type 2 diabetes mellitus without complication, without long-term current use of insulin ([facility]) 04/11/2016 PAST SURGICAL HISTORY Procedure [...] Mother Hypertension Mother Hypertension Father Heart Father CA Diabetes Father Kidney Disease Sister Heart disease [...] tablet by mouth daily with dinner. vit C,K-Kk-pzrre-lutein-zeaxan (PRESERVISION AREDS-2) 250-90-40-1 mg Take 1 capsule [...] SYRINGE Anuj Navarro MD documented in this encounterThe Jewish Hospital08-04-2023 History of Present illness Narrative* Ree [...] 08, 2022 2:22 PM documented in this encounterThe Jewish Hospital02-15-2023 Miscellaneous Notes* Telephone Encounter - Mathew [...] range. Marybeth Zaidi APRN.CNP documented in this encounterThe Jewish Hospital02-09-2023 History of Present illness Narrative* ROSSANA [...] 16, 2022 12:20 PM documented in this encounterThe Jewish Hospital01-09-2023 History of Past illness Narrative* Problem [...] Overview: Added automatically from request for surgery [id number] Complete tear of right rotator cuff 06/24/2016 [...] of this encounter (statuses as of 04/15/2022) [facility] History of Past illness Narrative* Problem [...] Overview: Added automatically from request for surgery [id number] Complete tear of right rotator cuff 06/24/2016 [...] of this encounter (statuses as of 05/14/2022) [facility] History of Past illness Narrative* Problem [...] Overview: Added automatically from request for surgery [id number] Complete tear of right rotator cuff 06/24/2016 [...] of this encounter (statuses as of 05/17/2022) [facility] History of Past illness Narrative* Problem [...] Overview: Added automatically from request for surgery [id number] Complete tear of right rotator cuff 06/24/2016 [...] of this encounter (statuses as of 05/22/2022) [facility] History of Past illness Narrative* Problem [...] Overview: Added automatically from request for surgery [id number] Complete tear of right rotator cuff 06/24/2016 [...] of this encounter (statuses as of 02/09/2023) [facility] History of Past illness Narrative* Problem [...] Overview: Added automatically from request for surgery [id number] Complete tear of right rotator cuff 06/24/2016 [...] of this encounter (statuses as of 02/24/2023) [facility] History of Past illness Narrative* Problem [...] Overview: Added automatically from request for surgery [id number] Complete tear of right rotator cuff 06/24/2016 [...] of this encounter (statuses as of 03/06/2023) [facility] History of Past illness Narrative* Problem [...] Overview: Added automatically from request for surgery [id number] Complete tear of right rotator cuff 06/24/2016 [...] of this encounter (statuses as of 03/12/2023) [facility] History of Past illness Narrative* Problem [...] Overview: Added automatically from request for surgery [id number] Complete tear of right rotator cuff 06/24/2016 [...] of this encounter (statuses as of 06/19/2023) [facility] History of Past illness Narrative* Problem [...] Overview: Added automatically from request for surgery [id number] Complete tear of right rotator cuff 06/24/2016 [...] of this encounter (statuses as of 06/27/2023) [facility] History of Present illness Narrative* Chip [...] Abs Lymph 1.00 - 4.00 k/uL 1.45 [place]amoille% % 7.5 Abs [place] <0.87 k/uL 0.44 Eosin% % 4.6 Abs [...] tablet by mouth daily with dinner. vit C,Y-Wo-wbykw-lutein-zeaxan (PRESERVISION AREDS-2) 250-90-40-1 mg Take 1 capsule [...] HISTORY Diagnosis Date Abnormal EKG afib, inf CA age undetermined Atrial fibrillation (HCC) Breast cancer [...] long-term current use of insulin ([facility]) 04/11/2016 PAST SURGICAL HISTORY Procedure [...] Mother Hypertension Mother Hypertension Father Heart Father CA Diabetes Father Kidney Disease Sister Heart disease [...] V86.0, ICD10: C50.912, Z17.0 - mammogram. 12. USP current use of anticoagulant therapy - ICD9: V58.61, ICD10: Z79.01 - avoid nsaids. 13. Hypokalemia - ICD9: 276.8, ICD10: E87.6 - POTASSIUM BLD Chip Arreola RTO in six months and prn. [facility] Instructions* Patient Instructions* Ginger Flores PA-C [...] development of fevers. Thank you for choosing [facility]. It has been a pleasure [...] your doctor if you can take an wzgw-qkv-gujxhty medicine. To prevent cellulitis in the future [...] Log into your personal health record on [email or web address] and enter X309 in the Education box to learn more about Cellulitis: Care Instructions. Current as of: November 06, 2021 Content Version: 13.5 [employer]riccut. Care instructions adapted under license by your healthcare professional. If you have questions about a medical condition or this instruction, always ask your healthcare professional. [employer] disclaims any warranty or liability for your use of this information. documented in this [id number] History of Present illness Narrative* Ginger Flores PA-C - 04/14/2022 9:38 AM EST Images from the original note were not included. Patient Name: [facility] Location: [place] [phone] Date Of : Date Of Visit: 1945 04/14/2022 MRN# Provider: [id number] Ginger Flores PA-C Chief Complaint Patient presents [...] to 5 days ago. Incident location: at [facility]. Injury mechanism: had callous trimmed on 04/04 [...] (50 mg total) by mouth daily . bejuhkmt-osg-iaahkmx sulfate 4.5 mg iron Tab Take 1 [...] your doctor if you can take an kvui-dox-rjcgwpt medicine. To prevent cellulitis in the future [...] Log into your personal health record on [email or web address] and enter X309 in the Education box to learn more about Cellulitis: Care Instructions. Current as of: November 06, 2021 Content Version: 13.5 Priccut. Care instructions adapted under license by your healthcare professional. If you have questions about a medical condition or this instruction, always ask your healthcare professional. [employer] disclaims any warranty or liability for your use of this information. documented in this [id number] Instructions* Patient Instructions* Anuj Navarro MD - 03/25/2022 10:38 AM EST We are increasing the Toprol (Metoprolol Succinate) to 50 mg daily. We are starting you on Xarelto 20 mg once per day [facility] History of Present illness Narrative* Anuj Navarro MD - 03/25/2022 10:20 AM EST Images from the original note were not included. [facility] SE[facility]IONAL CARDIOLOGY Cardiology ([place] ([facility] [address] [facility] [address] OUTPATIENT VISIT DATE 03/25/2022 PRIMARY CARE PHYSICIAN: Chip Arreola MD [address] [place] [address] HISTORY OF PRESENT ILLNESS: Ms. Carmichael is [...] HISTORY Diagnosis Date Abnormal EKG afib, inf CA age undetermined Atrial fibrillation (HCC) Breast cancer [...] long-term current use of insulin ([facility]) 04/11/2016 PAST SURGICAL HISTORY Procedure [...] Mother Hypertension Mother Hypertension Father Heart Father CA Diabetes Father Kidney Disease Sister Heart disease [...] mouth twice daily for 10 days. vit C,R-Wz-zfmrt-lutein-zeaxan (PRESERVISION AREDS-2) 250-90-40-1 mg Take 1 capsule [...] I27.20 Anuj Navarro MD documented [facility] encounterThe [facility] History of Present illness Narrative* Donald Massey MD - 01/21/2022 9:17 AM EDT Donald Massey MD Department of Orthopaedics Orthopaedics [address] [place] [address] Dept: [phone] Dept January 21, 2022 CHIEF COMPLAINT: Established [...] THE RADIAL STYLOID PROCESS FRACTURE. DEGENERATIVE CHANGES. Carpenter Foreman: [facility] Transcribe Date/Time: Jan 17 2022 3:48P Dictated by : HUGH MONSALVE MD This examination was interpreted and the report reviewed and electronically signed by: HUGH MONSALVE MD on Jan 17 2022 3:54PM EST Results-Findings * * *Final Report* * * DATE OF EXAM: Jan 17 2022 3:38PM [facility] 0266 - MRI WRIST WO IVCON RT [...] anxiety) Donald Massey MD documented in [facility] encounterThe [facility] History of Present illness Narrative* Chip [...] HISTORY Diagnosis Date Abnormal EKG afib, inf CA age undetermined Atrial fibrillation (HCC) Breast cancer [...] Mother Hypertension Mother Hypertension Father Heart Father CA Diabetes Father Kidney Disease Sister Heart disease [...] first of the year. [facility] History of Present illness Narrative* Donald Massey MD - 12/06/2021 2:42 PM EDT Patient presents with: Right Wrist - Established Patient, Fracture: 15 wks 6 days post fx right radial styloid Donald Massey MD Department of Orthopaedics Orthopaedics [address] [facility] [address] Dept: [phone] Dept December 06, 2021 CHIEF COMPLAINT: Established [...] for extra support. Xray today 12/06/21 at [facility]. AMB ROOMING INTAKE FLOWSHEET DATA Risk Screening Do you have concerns about personal safety or safety in the home?: No Pain Pain Level: 1 Pain Location: Wrist-Right Description: Aching Duration Amount of Time: (ongoing) Frequency: Intermittent Intervention/Comfort measure: Other: See comment (brace) ASSESSMENT: S52.362X Other closed intra-articular fracture of distal end [...] Healing fracture of the radial styloid/distal radius. Carpenter Foreman: PSCB Transcribe Date/Time: Dec 07 2021 9:16A [...] anxiety) Donald Massey MD [facility] in [facility] encounterThe [facility]09-[facility] History of Present illness Narrative* RT [...] 06, 2021 2:30 PM documented in this encounterThe [facility]07-27-[facility] Miscellaneous Notes* Telephone Encounter - Viola Goff - 10/31/2021 2:04 PM EDT Pt scheduled for follow up with Dr. Navarro @ [place] office. Viola Goff documented in [facility] encounterThe [facility]07[facility] History of Past illness Narrative* Problem Noted Date Resolved Date Microalbuminuria 10/29/2021 12/24/2021 Breast pain 12/03/2019 04/27/2021 Septic arthritis of shoulder, right 10/07/2018 10/23/2021 Breast cancer, left breast 02/24/201810/23 Overview: Added automatically from request for surgery [id number] Rotator cuff tear arthropathy, right 06/24/2016 10/23/2021 [...] of this encounter (statuses as of 12/24/2021) [facility] of Past illness Narrative* Problem Noted Date Resolved Date Microalbuminuria 10/29/2021 12/24/2021 Breast pain 12/03/2019 04/27/2021 Septic arthritis of shoulder, right 10/07/2018 10/23/2021 Breast cancer, left breast 02/24/201810/23 Overview: Added automatically from request for surgery [id number] Rotator cuff tear arthropathy, right 06/24/2016 10/23/2021 [...] of this encounter (statuses as of 12/31/2021) [facility] of Past illness Narrative* Problem Noted Date Resolved Date Microalbuminuria 10/29/2021 12/24/2021 Breast pain 12/03/2019 04/27/2021 Septic arthritis of shoulder, right 10/07/2018 10/23/2021 Breast cancer, left breast 02/24/201810/23 Overview: Added automatically from request for surgery [id number] Rotator cuff tear arthropathy, right 06/24/2016 10/23/2021 [...] of this encounter (statuses as of 01/21/2022) [facility] of Past illness Narrative* Problem Noted Date Resolved Date Microalbuminuria 10/29/2021 12/24/2021 Breast pain 12/03/2019 04/27/2021 Septic arthritis of shoulder, right 10/07/2018 10/23/2021 Breast cancer, left breast 02/24/201810/23 Overview: Added automatically from request for surgery [id number] Rotator cuff tear arthropathy, right 06/24/2016 10/23/2021 [...] of this encounter (statuses as of 03/15/2022) [facility] of Past [facility] Narrative* Problem Noted Date Resolved Date Microalbuminuria 10/29/2021 12/24/2021 Breast pain 12/03/2019 04/27/2021 Septic arthritis of shoulder, right 10/07/2018 10/23/2021 Breast cancer, left breast 02/24/201810/23 Overview: Added automatically from request for surgery [id number] Rotator cuff tear arthropathy, right 06/24/2016 10/23/2021 [...] of this encounter (statuses as of 03/25/2022) [facility] Miscellaneous Notes* Telephone Encounter - Sonali [...] current meds. Will follow. documented in [facility] encounterThe [facility]07-[facility] History of Present illness Narrative* RT [...] 26, 2021 8:34 AM documented in this encounterThe [facility]07-[facility] History of Present illness Narrative* Chip [...] [facility] She will not take med[facility]. Understands risks [...] Abs Lymph 1.00 - 4.00 k/uL 1.22 [place]% % 6.7 Abs [place] <0.87 k/uL 0.30 Eosin% % 4.5 Abs [...] HISTORY Diagnosis Date Abnormal EKG afib, inf CA age undetermined Atrial fibrillation (HCC) Breast cancer [...] Mother Hypertension Mother Hypertension Father Heart Father CA Diabetes Father Kidney Disease Sister Heart disease [...] V86.0, ICD10: C50.912, Z17.0 (primary diagnosis) - [facility] SCREENING 2. Paroxysmal atrial fibrillation (HCC) [...] six months and prn. documented in this encounterThe [facility]07-12-2022 Miscellaneous Notes* Telephone Encounter - Katheryn [...] advise. Katheryn Villanueva LPN documented in this encounterThe [facility] Hospital06-06-2022 History of Present illness Narrative* Karlene Troncoso PA-C - 09/10/2021 8:26 AM EDT Karlene Troncoso PA-C Department of Orthopaedics Orthopaed[facility] [address] [place] [address] Dept: [phone] Dept September 10, 2021 CHIEF COMPLAINT: Established [...] Stable appearance of a radial styloid fracture. Carpenter Foreman: [facility] Transcribe Date/Time: Sep 10 2021 11:29A Dictated [...] Lisinopril This note was partially generated using Peerio voice recognition system, and there may be [...] New x-ray completed today. documented in this encounterThe [facility]06-[facility] History of Present illness Narrative* RT [...] 10, 2021 7:29 AM documented in this encounterThe [facility]05-23-[facility] History of Present illness Narrative* Olga Cochran Ma - 08/27/2021 2:10 PM EDT PT ASSESSMENT - CASTING ROOM [facility] presents for Application of brace. Applied Medium Long Thumb Spica Exos to Right hand. Patient electronically signed Omari BENDER. Patient has been instructed in Care and proper application of brace. Olga Cochran Ma * Donald Massey MD - 08/27/2021 1:19 PM EDT Donald Massey MD Department of Orthopaedics Orthopaedics [address] [facility] [address] Dept: [phone] Dept August 27, 2021 CHIEF COMPLAINT: New and Fracture of the Right Wrist and REF: Luana (xray 08-22-2021) HPI Pt. having no pain and taking nothing. Wearing splint and REINALDO wrap which she states is bothersome. She fell down steps on 08-17-2021 and had xray in Urgent Care on 08-22-21. Splint removed. Skin intact. AMB ROOMING INTAKE FLOWSHEET DATA ASSESSMENT: S52.578W Other closed intra-articular fracture of distal end [...] and physical exam findings may be helpful. Carpenter Foreman: RG Transcribe Date/Time: Aug 22 2021 10:45A [...] HISTORY Diagnosis Date Abnormal EKG afib, inf CA age undetermined Atrial fibrillation (HCC) Breast cancer [...] long-term current use of insulin ([facility]) 04/11/2016 Past Surgical History: PAST [...] Mother Hypertension Mother Hypertension Father Heart Father CA Diabetes Father Kidney Disease Sister Heart disease [...] or electronic medical record. Jaleel Cerda [address] [facility] [address] Chip Arreola MD [address] [facility] [address] Donald Massey MD documented in this encounterThe [facility]05-18-[facility]22 History of Present illness Narrative* Shannan [...] 22, 2021 10:35 AM documented in this encounterThe [facility]05-[facility] History of Present illness Narrative* Jaleel [...] HISTORY Diagnosis Date Abnormal EKG afib, inf CA age undetermined Atrial fibrillation (HCC) Breast cancer [...] long-term current use of insulin ([facility]) 04/11/2016 MEDICATIONS: metoprolol succinate ER [...] healing. Jaleel Cerda MD documented in this encounterThe [facility]03-29-[facility]22 Miscellaneous Notes* Telephone Encounter - Chip Arreola MD - 07/03/2021 12:43 PM EDT printed documented in this encounterThe [facility]11-11-2021 NoteHNO ID: [id number] Author: RT Romina(R) Service: Radiology Author Type: [...] BY: RT Romina(R) February 15, 2021 10:06 AMAs[facility] [id number] History of Present illness Narrative* Lito Hilton [...] 04, 2020 10:09 AM documented in this encounterThe [facility]08[facility] History of Past illness Narrative* Problem [...] of this encounter (statuses as of 07/04/2021) [facility] Narrative* Problem [...] of this encounter (statuses as of 08/21/2021) [facility] Narrative* Problem [...] of this encounter (statuses as of 08/22/2021) [facility] Narrative* Problem [...] of this encounter (statuses as of 08/27/2021) [facility] Narrative* Problem [...] of this encounter (statuses as of 09/10/2021) [facility] Narrative* Problem [...] of this encounter (statuses as of 09/11/2021) [facility] Narrative* Problem [...] of this encounter (statuses as of 09/14/2021) [facility] Narrative* Problem [...] of this encounter (statuses as of 10/16/2021) [facility] Narrative* Problem Noted Date Resolved Date Breast pain 12/03/2019 04/27/2021 Septic arthritis of shoulder, right 10/07/2018 10/23/2021 Breast cancer, left breast 02/24/201810/23 Overview: Added automatically from request for surgery [id number] Rotator cuff tear arthropathy, right 06/24/2016 10/23/2021 [...] of this encounter (statuses as of 10/25/2021) [facility] Narrative* Problem Noted Date Resolved Date Breast pain 12/03/2019 04/27/2021 Septic arthritis of shoulder, right 10/07/2018 10/23/2021 Breast cancer, left breast 02/24/201810/23 Overview: Added automatically from request for surgery [id number] Rotator cuff tear arthropathy, right 06/24/2016 10/23/2021 [...] of this encounter (statuses as of 10/27/2021) [facility] Narrative* Problem Noted Date Resolved Date Breast pain 12/03/2019 04/27/2021 Septic arthritis of shoulder, right 10/07/2018 10/23/2021 Breast cancer, left breast 02/24/201810/23 Overview: Added automatically from request for surgery [id number] Rotator cuff tear arthropathy, right 06/24/2016 10/23/2021 [...] of this encounter (statuses as of 10/29/2021) [facility] Narrative* Problem Noted Date Resolved Date Breast pain 12/03/2019 04/27/2021 Septic arthritis of shoulder, right 10/07/2018 10/23/2021 Breast cancer, left breast 02/24/201810/23 Overview: Added automatically from request for surgery [id number] Rotator cuff tear arthropathy, right 06/24/2016 10/23/2021 [...] of this encounter (statuses as of 10/31/2021) [facility] Narrative* Problem Noted Date Resolved Date Breast pain 12/03/2019 04/27/2021 Septic arthritis of shoulder, right 10/07/2018 10/23/2021 Breast cancer, left breast 02/24/201810/23 Overview: Added automatically from request for surgery [id number] Rotator cuff tear arthropathy, right 06/24/2016 10/23/2021 [...] of this encounter (statuses as of 12/05/2021) [facility] Narrative* Problem Noted Date Resolved Date Breast pain 12/03/2019 04/27/2021 Septic arthritis of shoulder, right 10/07/2018 10/23/2021 Breast cancer, left breast 02/24/201810/23 Overview: Added automatically from request for surgery [id number] Rotator cuff tear arthropathy, right 06/24/2016 10/23/2021 [...] of this encounter (statuses as of 12/07/2021) [facility] Author Ruiz Reaves [facility] Note Date/Time October 11, 2024 10:38 am [facility] Medical Records Department [address] [place] [address] Emergency Department Summary 10/11/24 MR#: [id number] Acct: [id number] Name: KESHA CARMICHAEL Rep #:[id number] : 1945 79 From: Ruiz Reaves DO PCP: Dr. Chip Arreola MD Status:ADM I N Location: ICU [address] History of Present Illness Chief Complaint: [...] blood pressure and possibility of inferior wall CA. They held off on aspirin aswell and prehospital [facility] Medical History Non-rheumatic tricuspid valve insufficiency Paroxysmal atrial fibrillation Acute on chronic diastolic (congestive) heart failure Secondary pulmonary arterial hypertension Essential (primary) hypertension Persistent atrial fibrillation RONALDO (obstructive sleep apnea) Obesity, Class III, BMI 40-49.9 (morbid obesity) Malignant neoplasm of left breast, estrogen receptor positive Type 2 diabetes mellitus Osteoarthritis Migraines Knee pain, chronic Inferior CA Hyperglycemia Epistaxis Home Medications ?Medication ?Instructions ?Recorded [...] Patient follow commands that she was at [facility] the year is 2024 Skin: Warm, [...] STEMI therefore STEMI alert was called on-call epic ambulatory specialists Dr. Blum came down and evaluated the patient at bedside. He is recommending aspirin and beta-jarod. He is also requesting aspirin, heparin drip, nitroglycerin drip which were all ordered multiple EKGs were obtained and reviewed therefore after this further review by epic ambulatory specialists he also would prefer to get rate [...] % (Auto) 62.4 Lymph % (Auto) 30.4 [place] % (Auto) 5.7 Eos % (Auto) 0.6 [...] Paroxysmal atrial fibrillation, Chest pain, Non-ST elevation CA (NSTEMI) Primary Care Provider: Chip Arreola Disposition Disposition: [facility] What to do if you have Problems For any increased pain, shortness of breath, bleeding, nausea or vomiting, chestpain, or any unexpected problems, contact your Primary Care Provider. Call [facility] ([phone]) or report to the closest Emergency Room. Call 911 if necessary. 10/11/24 1038 <Electronically signed by Ruiz Reaves DO> Cosigner Signature (if applicable): CC: Dr. Chip Arreola MD ~ Signed [facility] Work Phone: Evaluation note* Diagnosis Pain in right hip- Primary Pain in joint, pelvic region and thigh documented [facility] this encounter [facility]* Diagnosis Other closed intra-articular fracture of distal end of right radius, initial encounter- Primary Acute pain of right wrist [facility] Other closed intra-articular fracture of distal end of right radius, initial encounter- Primary [facility] Diagnosis Other closed intra-articular fracture of distal end of right radius, initial encounter [facility] Diagnosis Other closed intra-articular fracture of distal end of right radius, initial encounter- Primary [facility] Diagnosis Congestive heart failure, unspecified HF chronicity, unspecified heart failure type (HCC) [facility]* Diagnosis Malignant neoplasm of left breast in female, estrogen receptor positive, 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 (HCC)- Primary Paroxysmal atrial fibrillation (HCC) Atrial fibrillation Essential hypertension, benign Pulmonary HTN (HCC) Other chronic pulmonary heart diseases Chronic diastolic congestive heart failure (HCC) Chronic diastolic heart failure Type 2 diabetes mellitus without complication, without long-term current use of insulin (HCC) [facility]* Diagnosis Malignant neoplasm of left breast in female, estrogen receptor positive, 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 (HCC) documented [facility]* Diagnosis Other closed intra-articular fracture of distal end of right radius, initial encounter documented [facility]* Diagnosis Essential hypertension, benign- Primary Type 2 diabetes mellitus without complication, without long-term current use of insulin (HCC) Malignant neoplasm of left breast in female, estrogen receptor positive, 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 (HCC) Stage 3 chronic kidney disease, unspecified whether stage 3a or 3b CKD (HCC) documented [facility]* Diagnosis Closed fracture of right wrist with routine healing, subsequent encounter- Primary Other closed intra-articular fracture of distal end of right radius, initial encounter documented [facility] encounter [facility]* Diagnosis De Quervain's tenosynovitis- Primary Radial styloid tenosynovitis Right wrist pain Pain in joint, forearm documented in this encounter [facility] note* Diagnosis Persistent atrial fibrillation (HCC)- Primary Atrial fibrillation Essential hypertension, benign Chronic diastolic congestive heart failure (HCC) Chronic diastolic heart failure Pulmonary HTN (HCC) Other chronic pulmonary heart diseases Paroxysmal atrial fibrillation (HCC) Atrial fibrillation documented [facility]* Diagnosis Cellulitis of left lower extremity- Primary documented in this encounter [facility] note* Diagnosis Morbid obesity with [...] kidney disease, unspecified CKD stage, unspecified whether nursing home insulin use (HCC) Essential tremor Essential and other specified forms of tremor Essential hypertension, benign Obstructive sleep apnea syndrome Obstructive sleep apnea (adult) (pediatric) Stage 3 chronic kidney disease, unspecified whether stage 3a or 3b CKD (HCC) Malignant neoplasm of left breast in female, estrogen receptor positive, 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 (HCC) 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 Long-term (current) use of anticoagulants Hypokalemia Hypopotassemia documented in this encounter [facility] note* Diagnosis Pain in joint of right shoulder- Primary Pain in joint, shoulder region [facility] Diagnosis Pain in joint of right shoulder Pain in joint, shoulder region [facility] Diagnosis Screening breast examination Breast screening, unspecified [facility] Diagnosis Persistent atrial fibrillation (HCC)- Primary Atrial fibrillation Chronic diastolic congestive heart failure (HCC) Chronic diastolic heart failure Pulmonary HTN (HCC) Other chronic pulmonary heart diseases Essential hypertension, benign H/O mitral valve disease Personal history of other diseases of circulatory system [facility]* Diagnosis Persistent atrial fibrillation (HCC) Atrial fibrillation [facility]* Diagnosis Pain of left lower extremity- Primary Persistent atrial fibrillation (HCC) Atrial fibrillation Essential hypertension, benign Pulmonary HTN (HCC) Other chronic pulmonary heart diseases [facility] this [facility] noteNo assessment information availableWOhio State Health [facility] Work Phone: Evaluation note* Diagnosis Hypokalemia- Primary Hypopotassemia [facility]* Diagnosis Congestive heart failure, unspecified HF chronicity, unspecified heart failure type (HCC) [facility]* Diagnosis Persistent atrial fibrillation (HCC)- Primary Atrial fibrillation Chronic diastolic congestive heart failure (HCC) Chronic diastolic heart failure H/O mitral valve disease Personal history of other diseases of circulatory system Essential hypertension, benign Pulmonary HTN (HCC) Other chronic pulmonary heart diseases Morbid obesity with BMI of 40.0-44.9, adult (HCC) Morbid obesity [facility]* Diagnosis Intermediate stage n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 Pseudophakia Lens replaced by other means Posterior vitreous detachment of both eyes Vitreous degeneration [facility] Diagnosis Encounter for screening mammogram for malignant neoplasm of breast- Primary Other screening mammogram [facility] Diagnosis Encounter for screening mammogram for malignant neoplasm of breast Other screening mammogram [facility] Diagnosis Essential tremor- Primary Essential and other specified forms of tremor Encounter for screening examination for other mental health and behavioral disorders Screening for depression Persistent atrial fibrillation (HCC) Atrial fibrillation Malignant neoplasm of overlapping sites of left breast in female, estrogen receptor positive (HCC) Type 2 diabetes mellitus with diabetic chronic kidney disease, unspecified CKD stage, unspecified whether nursing home insulin use (HCC) Obstructive sleep apnea syndrome Obstructive sleep apnea (adult) (pediatric) Essential hypertension, benign [facility] Diagnosis Pain of left lower extremity [facility]* Diagnosis Acute recurrent sinusitis, unspecified location documented [facility] this encounter [facility]* Diagnosis Acute pain of right wrist [facility]* Diagnosis Acute pain of left knee [facility]* Diagnosis Low back pain, unspecified back pain laterality, unspecified chronicity, unspecified whether sciatica present- Primary DDD (degenerative disc disease), thoracic Degeneration of thoracic or thoracolumbar intervertebral disc Tremor Abnormal involuntary movements Falls frequently Personal history of fall [facility] this [facility]* Diagnosis Low back pain, unspecified back pain laterality, unspecified chronicity, unspecified whether sciatica present DDD (degenerative disc disease), thoracic Degeneration of thoracic or thoracolumbar intervertebral disc [facility]* Diagnosis Persistent atrial fibrillation (HCC) Atrial fibrillation [facility]* Diagnosis Falls frequently- Primary Personal history of fall Frequent falls Personal history of fall [facility]* Diagnosis Persistent atrial fibrillation (HCC) Atrial fibrillation [facility]* Diagnosis Persistent atrial fibrillation (HCC)- Primary Atrial fibrillation Chronic diastolic congestive heart failure (HCC) Chronic diastolic heart failure Essential hypertension, benign Pulmonary HTN (HCC) Other chronic pulmonary heart diseases Morbid obesity with BMI of 40.0-44.9, adult (HCC) Morbid obesity [facility]* Diagnosis Falls frequently- Primary Personal history of fall documented [facility] this encounter [facility]* Diagnosis Infected abrasion of left lower extremity, initial encounter- Primary documented [facility]* Diagnosis Falls frequently- Primary Personal history of fall documented [facility]* Diagnosis Falls frequently- Primary Personal history of fall documented [facility]* Diagnosis Falls frequently- Primary Personal history of fall [facility] this [facility]* Diagnosis Falls frequently- Primary Personal history of fall [facility] Diagnosis Falls frequently- Primary Personal history of fall [facility]* Diagnosis Itching with irritation- Primary [...] vitamin D deficiency [facility]* Diagnosis Pain of right hip [facility]* Diagnosis Falls frequently- Primary Personal history of fall [facility]* Diagnosis Rotator cuff tear arthropathy, right- Primary [facility] Diagnosis Rotator cuff tear arthropathy, left- Primary [facility] Diagnosis Rotator cuff tear arthropathy, right Rotator cuff tear arthropathy, left [facility] Diagnosis Rotator cuff tear arthropathy, left- Primary Rotator cuff tear arthropathy, right [facility] Diagnosis Hypercalcemia- Primary Bilateral leg edema Edema Essential hypertension, benign Congestive heart failure, unspecified HF chronicity, unspecified heart failure type (HCC) Malignant neoplasm of left breast in female, estrogen receptor positive, 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 (HCC) Body mass index (BMI) 40.0-44.9, adult (HCC) Chronic kidney disease, stage 3a (HCC) Abnormality of gait Falling episodes Lack of coordination [facility] Diagnosis Parathyroid abnormality (HCC)- Primary Unspecified disorder of parathyroid gland [facility]* Diagnosis Rotator cuff tear arthropathy, left Rotator cuff tear arthropathy, right [facility] Dayanna Miranda [facility] Note Date/Time October 11, 2024 10:33 am [facility] Medical Records Department [address] [place] [address] H&P Exam - Hospitalist 10/11/24 1026 MR#: [id number] Acct: [id number] Name: KESHA CARMICHAEL Rep #:[id number] : 1945 79 From: Dayanna Miranda DO PCP: Dr. Chip Arreola MD Status:ADM I N Location: ICU ICU-1 HPI - General General Date of Admission: 10/11/24 Date of Service: 10/11/24 Chief Complaint: Chest pain HPI Narrative KESHA CARMICHAEL, is a 79 F who presents with epistaxis and chest pain. This is [id number] male who has a history of A-fib [...] heart rate is fast all the time. [facility] Medical History Non-rheumatic tricuspid valve insufficiency Paroxysmal atrial fibrillation Acute on chronic diastolic (congestive) heart failure Secondary pulmonary arterial hypertension Essential (primary) hypertension Persistent atrial fibrillation RONALDO (obstructive sleep apnea) Obesity, Class III, BMI 40-49.9 (morbid obesity) Malignant neoplasm of left breast, estrogen receptor positive Type 2 diabetes mellitus Osteoarthritis Migraines Knee pain, chronic Inferior CA Hyperglycemia Epistaxis Home Medications ?Medication ?Instructions ?Recorded [...] % (Auto) 62.4, Lymph % (Auto) 30.4, [place] % (Auto) 5.7, Eos % (Auto) 0.6, [...] on oxygen. Charges/Coding Visit Charges Inpatient E&M: 92288 Init Hosp L3 10/11/24 1033 <Electronically signed by Dayanna Miranda DO> Cosigner Signature (if applicable): CC: Dr. Dayanna Miranda DO; Dr. Chip Arreola MD~ Signed [facility] Work Phone: Reason for referral (narrative)* Diagnostic Procedure Only (Routine) - Pending Review Specialty Diagnoses / Procedures Referred By Harper t Referred To Contact XR IMAGING Diagnoses Pain in right hip Procedures XR HIP 2V AP/LAT RIGHT (AK,FL,ME) RADEX HIP UNILATERAL WITH PELVIS 2-3 VIEWS Martin Mary APRN.DIAGRAM CLERK [facility], [address] [place] [address] Xr Imaging Referral ID Status Reason Start Date Expiration Date Visits Requested Visits Authorized [id number] Pending Review Auto-Generat ed Referral 08/21/2021 09/19/2022 1 1 [facility] for referral (narrative)* Diagnostic Procedure Only (Routine) - Closed Specialty Diagnoses / Procedures Referred By Contac t Referred To Contact XR IMAGING Diagnoses Other closed intra-articular fracture of distal end of right radius, initial encounter Procedures XR WRIST GENERAL 3V PA/LAT/OBL RIGHT RADEX WRIST COMPLETE MINIMUM 3 VIEWS Donald Massey MD [address] [place] [address] Xr Imaging Referral ID Status Reason Start Date Expiration Date V isits Requested Visits Authorized [id number] Closed Auto-Generate d Referral 08/27/2021 09/26/2022 1 1 [facility] for referral (narrative)* Diagnostic Procedure Only (Routine) - Closed Specialty Diagnoses / Procedures Referred By Contac t Referred To Contact XR IMAGING Diagnoses Other closed intra-articular fracture of distal end of right radius, initial encounter Procedures XR WRIST GENERAL 3V PA/LAT/OBL RIGHT RADEX WRIST COMPLETE MINIMUM 3 VIEWS Donald Massey MD [address] [place] [address] Xr Imaging Referral ID Status Reason Start Date Expiration Date V isits Requested Visits Authorized [id number] Closed Auto-Generate d Referral 08/27/2021 09/26/2022 1 1 [facility] for referral (narrative)* Diagnostic Procedure Only (Routine) - Authorized Specialty Diagnoses / Procedures Referred By Contac t Referred To Contact BR IMAGING Diagnoses Malignant neoplasm of left breast in female, estrogen receptor positive, 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 (HCC) Procedures MAHAD SCREENING SCREENING MAMMOGRAPHY BI 2-VIEW BREAST INC CAD Chip Arreola MD [address] [place] [address] Br Imaging [address] [place] [address] Referral ID Status Reason Start Date Expiration Date Visits Requested Visits Authorized [id number] Authorized Auto-Generat ed Referral 10/25/2021 11/24/2022 1 1 [facility] for referral (narrative)* Diagnostic Procedure Only (Routine) - Closed Specialty Diagnoses / Procedures Referred By Contac t Referred To Contact BR IMAGING Diagnoses Malignant neoplasm of left breast in female, estrogen receptor positive, 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 (HCC) Procedures MAHAD SCREENING SCREENING MAMMOGRAPHY BI 2-VIEW BREAST INC CAD [place], Chip Cardenas MD [address] [place] [address] Br Imaging [address] [place] [address] Referral ID Status Reason Start Date Expiration Date V isits Requested Visits Authorized [id number] Closed Auto-Generate d Referral 10/25/2021 11/24/2022 1 1 [facility] for referral (narrative)* Diagnostic Procedure Only (Routine) - Closed Specialty Diagnoses / Procedures Referred By Contac t Referred To Contact XR IMAGING Diagnoses Other closed intra-articular fracture of distal end of right radius, initial encounter Procedures XR WRIST GENERAL 3V PA/LAT/OBL RIGHT RADEX WRIST COMPLETE MINIMUM 3 VIEWS Donald Massey MD [address] [place] [address] Xr Imaging Referral ID Status Reason Start Date Expiration Date V isits Requested Visits Authorized [id number] Closed Auto-Generate d Referral 12/05/2021 01/04/2023 1 1 [facility] for referral (narrative)* Diagnostic Procedure Only (Routine) - Pending Review Specialty Diagnoses / Procedures Referred By Contac t Referred To Contact XR IMAGING Diagnoses Pain in joint of right shoulder Procedures XR SHOULDER GENERAL 3V OR MORE AP/TRUE AP/OTHER RIGHT RADEX SHOULDER COMPLETE MINIMUM 2 VIEWS Dominga Reese, PA-C [address] [address] Xr Imaging Referral ID Status Reason Start Date Expiration Date Visits Requested Visits Authorized [id number] Pending Review Auto-Generat ed Referral 05/14/2022 06/13/2023 1 1 [facility] for referral (narrative)* Diagnostic Procedure Only (Routine) - Closed Specialty Diagnoses / Procedures Referred By Stefanieac t Referred To Contact XR IMAGING Diagnoses Pain in joint of right shoulder Procedures XR SHOULDER GENERAL 3V OR MORE AP/TRUE AP/OTHER RIGHT RADEX SHOULDER COMPLETE MINIMUM 2 VIEWS Dominga Reese PA-C [address] [place] [address] Xr Imaging Referral ID Status Reason Start Date Expiration Date V isits Requested Visits Authorized [id number] Closed Auto-Generate d Referral 05/14/2022 06/13/2023 1 1 [facility] for referral (narrative)* Diagnostic Procedure Only (Routine) - Closed Specialty Diagnoses / Procedures Referred By Harper t Referred To Contact BR IMAGING Diagnoses Screening breast examination Procedures MAHAD SCREENING SCREENING MAMMOGRAPHY BI 2-VIEW BREAST INC CAD Chip Arreola MD [address] [place] [address] Br Imaging [address] [place] [address] Referral ID Status Reason Start Date Expiration Date V isits Requested Visits Authorized [id number] Closed Auto-Generate d Referral 10/16/2022 11/15/2023 1 1 [facility] for referral (narrative)* Outpatient Procedure (Routine) - Authorized Specialty Diagnoses / Procedures Referred By Harper t Referred To [facility] Diagnoses Persistent atrial fibrillation (HCC) H/O mitral valve disease Procedures ECHO ECHO TTHRC R-T 2D W/WOM-MODE COMPL SPEC&COLR D Anuj Navarro MD [address] [place] [address] [facility] [address] [address] Referral ID Status Reason Start Date Expiration Date Visits Requested Visits Authorized [id number] Authorized Auto-Generat ed Referral 07/07/2023 02/24/2024 1 1 [facility] for referral (narrative)* Outpatient Procedure (Urgent) - Pending Review Specialty Diagnoses / Procedures Referred By Harper t Referred To Contact [facility] Diagnoses Pain of left lower extremity Procedures US LEG VEIN DVT UNL VAS LAB DUP-SCAN XTR VEINS UNILATERAL/LIMITED STUDY Chip Arreola MD [address] [place] [address] [address] Referral ID Status Reason Start Date Expiration Date Visits Requested Visits Authorized [id number] Pending Review Auto-Generat ed Referral 03/12/2023 03/11/2024 1 1 * Diagnostic Procedure Only (Routine) - Closed Specialty Diagnoses / Procedures Referred By Harper t Referred To Contact XR IMAGING Diagnoses Pain of left lower extremity Procedures XR ANKLE GENERAL 3V AP/LAT/OBL LEFT RADEX ANKLE COMPLETE MINIMUM 3 VIEWS Chip Arreola MD [address] [place] [address] [place] [address] Referral ID Status Reason Start Date Expiration Date V isits Requested Visits Authorized [id number] Closed Auto-Generate d Referral 03/12/2023 04/10/2024 1 1 [facility] for referral (narrative)* Diagnostic Procedure Only (Routine) - New Request Specialty Diagnoses / Procedures Referred By Harper davis Referred To Contact BR IMAGING Diagnoses Encounter for screening mammogram for malignant neoplasm of breast Procedures MAHAD SCREENING SCREENING MAMMOGRAPHY BI 2-VIEW BREAST INC CAD Chip Arreola MD [address] [place] [address] Br Imaging [address] [place] [address] Referral ID Status Reason Start Date Expiration Date Visits Requested Visits Authorized [id number] New Request Auto-Generat ed Referral 11/04/2023 12/03/2024 1 1 [facility] for referral (narrative)* Diagnostic Procedure Only (Routine) - Closed Specialty Diagnoses / Procedures Referred By Contac t Referred To Contact XR IMAGING Diagnoses Pain of left lower extremity Procedures XR ANKLE GENERAL 3V AP/LAT/OBL LEFT RADEX ANKLE COMPLETE MINIMUM 3 VIEWS Chip Arreola MD [address] [place] [address] [place] [address] Referral ID Status Reason Start Date Expiration Date V isits Requested Visits Authorized [id number] Closed Auto-Generate d Referral 03/12/2023 04/10/2024 1 1 [facility] for referral (narrative)* Diagnostic Procedure Only (Urgent) - Closed Specialty Diagnoses / Procedures Referred By Contac t Referred To Contact XR IMAGING Diagnoses Acute pain of right wrist Procedures XR WRIST INJURY 4V PA/LAT/OBL/SCAPH RIGHT RADEX WRIST COMPLETE MINIMUM 3 VIEWS Jaleel Cerda MD [address] [place] [address] [place] [address] Referral ID Status Reason Start Date Expiration Date V isits Requested Visits Authorized [id number] Closed Auto-Generate d Referral 08/22/2021 09/21/2022 1 1 [facility] for referral (narrative)No reason for referral information availableWOhio State Health System Work Phone: Reason for visit Narrative* Diagnostic Procedure Only (Routine) - Closed Specialty Diagnoses / Procedures Referred By Contac t Referred To Contact XR IMAGING Diagnoses Other closed intra-articular fracture of distal end of right radius, initial encounter Procedures XR WRIST GENERAL 3V PA/LAT/OBL RIGHT RADEX WRIST COMPLETE MINIMUM 3 VIEWS Donald Massey MD [address] [place] [address] Xr Imaging Referral ID Status Reason Start Date Expiration Date V isits Requested Visits Authorized [id number] Closed Auto-Generate d Referral 08/27/2021 09/26/2022 1 1 [facility] for visit Narrative* Diagnostic Procedure Only (Routine) - Closed Specialty Diagnoses / Procedures Referred By Contac t Referred To Contact BR IMAGING Diagnoses Malignant neoplasm of left breast in female, estrogen receptor positive, 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 (HCC) Procedures MAHAD SCREENING SCREENING MAMMOGRAPHY BI 2-VIEW BREAST INC Chip Moore MD [address] [place] [address] Br Imaging [address] [place] [address] Referral ID Status Reason Start Date Expiration Date V isits Requested Visits Authorized [id number] Closed Auto-Generate d Referral 10/25/2021 11/24/2022 1 1 [facility] for visit Narrative* Diagnostic Procedure Only (Routine) - Closed Specialty Diagnoses / Procedures Referred By Contac t Referred To Contact XR IMAGING Diagnoses Other closed intra-articular fracture of distal end of right radius, initial encounter Procedures XR WRIST GENERAL 3V PA/LAT/OBL RIGHT RADEX WRIST COMPLETE MINIMUM 3 VIEWS Donald Massey MD [address] [place] [address] Xr Imaging Referral ID Status Reason Start Date Expiration Date V isits Requested Visits Authorized [id number] Closed Auto-Generate d Referral 12/05/2021 01/04/2023 1 1 [facility] for visit Narrative* Diagnostic Procedure Only (Routine) - Closed Specialty Diagnoses / Procedures Referred By Contac t Referred To Contact BR IMAGING Diagnoses Screening breast examination Procedures MAHAD SCREENING SCREENING MAMMOGRAPHY BI 2-VIEW BREAST INC Chip Moore MD [address] [place] [address] Br Imaging [address] [place] [address] Referral ID Status Reason Start Date Expiration Date V isits Requested Visits Authorized [id number] Closed Auto-Generate d Referral 10/16/2022 11/15/2023 1 1 [facility] for visit Narrative* Diagnostic Procedure Only (Routine) - Closed Specialty Diagnoses / Procedures Referred By Contac t Referred To Contact BR IMAGING Diagnoses Encounter for screening mammogram for malignant neoplasm of breast Procedures MAHAD SCREENING SCREENING MAMMOGRAPHY BI 2-VIEW BREAST INC CAD Chip Arreola MD [address] [place] [address] Br Imaging [address] [place] [address] Referral ID Status Reason Start Date Expiration Date V isits Requested Visits Authorized [id number] Closed Auto-Generate d Referral 11/04/2023 12/03/2024 1 1 [facility] for visit Narrative* Diagnostic Procedure Only (Routine) - Closed Specialty Diagnoses / Procedures Referred By Contac t Referred To Contact XR IMAGING Diagnoses Pain of left lower extremity Procedures XR ANKLE GENERAL 3V AP/LAT/OBL LEFT RADEX ANKLE COMPLETE MINIMUM 3 VIEWS Chip Arreola MD [address] [place] [address] [place] [address] Referral ID Status Reason Start Date Expiration Date V isits Requested Visits Authorized [id number] Closed Auto-Generate d Referral 03/12/2023 04/10/2024 1 1 [facility] for visit Narrative* Diagnostic Procedure Only (Urgent) - Closed Specialty Diagnoses / Procedures Referred By Contac t Referred To Contact XR IMAGING Diagnoses Acute pain of right wrist Procedures XR WRIST INJURY 4V PA/LAT/OBL/SCAPH RIGHT RADEX WRIST COMPLETE MINIMUM 3 VIEWS Jaleel Cerda MD [address] [place] [address] [place] [address] Referral ID Status Reason Start Date Expiration Date V isits Requested Visits Authorized [id number] Closed Auto-Generate d Referral 08/22/2021 09/21/2022 1 1 [facility] for visit Narrative* Diagnostic Procedure Only (Routine) - Closed Specialty Diagnoses / Procedures Referred By Contac t Referred To Contact XR IMAGING Diagnoses DDD (degenerative disc disease), thoracic Procedures XR THORACIC GENERAL 3V AP/LAT/SWIMMERS RADEX SPINE THORACIC 3 VIEWS Belkys Mcintyre OPTOMETRIST.DIAGRAM CLERK [address] [place] [address] Xr Imaging [place] [address] Referral ID Status Reason Start Date Expiration Date V isits Requested Visits Authorized [id number] Closed Auto-Generate d Referral 03/09/2024 04/08/2025 1 1 [facility] for visit Narrative* Diagnostic Procedure Only (Routine) - Closed Specialty Diagnoses / Procedures Referred By Harper davis Referred To Contact XR IMAGING Diagnoses Pain of right hip Procedures XR HIP GENERAL 3V PELV/AP/LAT RIGHT RADEX HIP UNILATERAL WITH PELVIS 2-3 VIEWS Belkys Mcintyre APRN.DIAGRAM CLERK [address] [place] [address] Phone: tel: fax: [facility] [place] [address] Referral ID Status Reason Start Date Expiration Date V isits Requested Visits Authorized [id number] Closed Auto-Generate d Referral 05/27/2024 06/26/2025 1 1 [facility] for visit Narrative* Diagnostic Procedure Only (Routine) - Closed Specialty Diagnoses / Procedures Referred By Harper davis Referred To Contact XR IMAGING Diagnoses Rotator cuff tear arthropathy, left Procedures XR SHOULDER GENERAL 3V OR MORE AP/TRUE AP/OTHER LEFT RADEX SHOULDER COMPLETE MINIMUM 2 VIEWS Dayanna Lewis MD [address] [place] [id number] Phone: tel: fax: [facility] [place] [address] Referral ID Status Reason Start Date Expiration Date V isits Requested Visits Authorized [id number] Closed Auto-Generate d Referral 06/14/2024 07/14/2025 1 1 [facility] Summary Purpose Family History Relationship Condition [...] Documents on File Type Date Recorded Patient Study Abroad Coordinator Expl anation Advance Directive(s) Advance Directive(s) 03/04/2020 5:29 PM Advance Directive(s) 10/07/2018 7:10 PM Advance Directive(s) 02/25/2018 10:40 AM Latest Code Status on File Code Status Date Activated Date Inactivated Comments Full Code 03/10/2020 12:04 PM Documents on File Type Date Recorded Patient Study Abroad Coordinator Expl anation Advance Directive(s) Advance Directive(s) 03/04/2020 [...] Yes November 30, 9 10:07am Power of Clinical Team Manager Yes November 30, 2 019 10:07am Date Activated Date Inactivated Comments 03/10/2020 12:04 PM Date Activated Date Inactivated Comments 03/10/2020 12:04 PM Advance Directive Response Recorded Date/ Time Do you have a Healthcare Pow er of Clinical Team Manager? Yes October 11, 2024 11:25am Name of Medical Power of Clinical Team Manager Dmitry Carmichael - peterson October 11, 2024 11:25am Advance Directives Yes November 30, 2018 11:07am Reason for Referral Specialty Diagnoses / Procedures Referred By Contac t Referred To Contact Orthopedics Diagnoses Other closed intra-articular fracture of distal end of right radius, initial encounter Procedures CONSULT TO ORTHOPAEDICS OFFICE/OUTPATIENT [facility] 60-74 MINUTES Jaleel Cerda MD [address] [place] [address] Referral ID Status Reason Start Date Expiration Date Visits Requested Visits Authorized [id number] Authorized PCP Requested Referral 08/22/2021 08/22/2022 1 1 Specialty Diagnoses / Procedures Referred By Contac t Referred To Contact XR IMAGING Diagnoses Acute pain of right wrist Procedures XR WRIST INJURY 4V PA/LAT/OBL/SCAPH RIGHT RADEX WRIST COMPLETE MINIMUM 3 VIEWS Jaleel Cerda MD [address] [place] [address] Xr Imaging Referral ID Status Reason Start Date Expiration Date V isits Requested Visits Authorized [id number] Closed Auto-Generate d Referral 08/22/2021 09/21/2022 1 1 Specialty Diagnoses / Procedures Referred By Contac t Referred To Contact MR IMAGING Diagnoses Closed fracture of right wrist with routine healing, subsequent encounter Procedures MRI WRIST WO IVCON RT MRI ANY JT UPPER EXTREMITY W/O CONTRAST MATRL Donald Massey MD [address] [place] [address] Mr Imaging Referral ID Status Reason Start Date Expiration Date Visits Requested Visits Authorized [id number] Pending Review Auto-Generat ed Referral 12/31/2021 01/30/2023 1 1 Specialty Diagnoses / Procedures Referred By Contac t Referred To Contact [facility] Diagnoses Falls frequently Procedures CONSULT TO PHYSICAL THERAPY PHYSICAL THERAPY EVALUATION HIGH COMPLEX 45 MINS Belkys Mcintyre APRN.DIAGRAM CLERK [address] [place] [address] [facility] [address] [place] [address] Referral ID Status Reason Start Date Expiration Date Visits Requested Visits Authorized [id number] Authorized Auto-Generat ed Referral 04/07/2023 04/06/2024 99 99 Specialty Diagnoses / Procedures Referred By Contac t Referred To Contact XR IMAGING Diagnoses DDD (degenerative disc disease), thoracic Procedures XR THORACIC GENERAL 3V AP/LAT/SWIMMERS RADEX SPINE THORACIC 3 VIEWS Belkys Mcintyre APRN.DIAGRAM CLERK [address] [place] [address] [place] [address] Referral ID Status Reason Start Date Expiration Date V isits Requested Visits Authorized [id number] Closed Auto-Generate d Referral 03/09/2024 04/08/2025 1 1 Specialty Diagnoses / Procedures Referred By Contac t Referred To Contact XR IMAGING Diagnoses Low back pain, unspecified back pain laterality, unspecified chronicity, unspecified whether sciatica present Procedures XR LUMBAR GENERAL 3V AP/LAT/L5-S1 RADEX SPINE LUMBOSACRAL 2/3 VIEWS Belkys Mcintyre APRN.DIAGRAM CLERK [address] [place] [address] [place] [id number] Referral ID Status Reason Start Date Expiration Date V isits Requested Visits Authorized [id number] Closed Auto-Generate d Referral 03/09/2024 04/08/2025 1 [...] section and content) DATE CREATED AUTHOR 02/16/2021 [facility] DATE CREATED AUTHOR AUTHOR'S ORGANIZ ATION 04/14/2022 [facility] DATE CREATED AUTHOR AUTHOR'S ORGANIZ ATION 04/17/2024 [facility] DATE CREATED AUTHOR AUTHOR'S ORGANIZ ATION 10/09/2024 [facility] Source Comments (unrecognize d section and content) In the event this informatio n is protected by the Federal Confidentiality of Alcohol and Drug Abuse Patient Records regulations: The Federal rules restrict any use of the information to criminally investigate or prosecute any alcohol or drug abuse patient.[facility] the event this information is protected by the Federal Confidentiality of Alcohol and Drug Abuse Patient Records regulations: The Federal rules restrict any use of the information to criminally investigate or prosecute any alcohol or drug abuse patient.[facility] the event this information is protected by the Federal Confidentiality of Alcohol and Drug Abuse Patient Records regulations: The Federal rules restrict any use of the information to criminally investigate or prosecute any alcohol or drug abuse patient.[facility] the event this information is protected by the Federal Confidentiality of Alcohol and Drug Abuse Patient Records regulations: The Federal rules restrict any use of the information to criminally investigate or prosecute any alcohol or drug abuse patient.[facility] the event this information is protected by the Federal Confidentiality of Alcohol and Drug Abuse Patient Records regulations: The Federal rules restrict any use of the information to criminally investigate or prosecute any alcohol or drug abuse patient.[facility] the event this information is protected by the Federal Confidentiality of Alcohol and Drug Abuse Patient Records regulations: The Federal rules restrict any use of the information to criminally investigate or prosecute any alcohol or drug abuse patient.[facility] the event this information is protected by the Federal Confidentiality of Alcohol and Drug Abuse Patient Records regulations: The Federal rules restrict any use of the information to criminally investigate or prosecute any alcohol or drug abuse patient.[facility] the event this information is protected by the Federal Confidentiality of Alcohol and Drug Abuse Patient Records regulations: The Federal rules restrict any use of the information to criminally investigate or prosecute any alcohol or drug abuse patient.[facility] the event this information is protected by the Federal Confidentiality of Alcohol and Drug Abuse Patient Records regulations: The Federal rules restrict any use of the information to criminally investigate or prosecute any alcohol or drug abuse patient.[facility] the event this information is protected by the Federal Confidentiality of Alcohol and Drug Abuse Patient Records regulations: The Federal rules restrict any use of the information to criminally investigate or prosecute any alcohol or drug abuse patient.[facility]In the event this information is protected by the Federal Confidentiality of Alcohol and Drug Abuse Patient Records regulations: The Federal rules restrict any use of the information to criminally investigate or prosecute any alcohol or drug abuse patient.[facility]In the event this information is protected by the Federal Confidentiality of Alcohol and Drug Abuse Patient Records regulations: The Federal rules restrict any use of the information to criminally investigate or prosecute any alcohol or drug abuse patient.[facility]In the event this information is protected by the Federal Confidentiality of Alcohol and Drug Abuse Patient Records regulations: The Federal rules restrict any use of the information to criminally investigate or prosecute any alcohol or drug abuse patient.[facility]In the event this information is protected by the Federal Confidentiality of Alcohol and Drug Abuse Patient Records regulations: The Federal rules restrict any use of the information to criminally investigate or prosecute any alcohol or drug abuse patient.[facility]In the event this information is protected by the Federal Confidentiality of Alcohol and Drug Abuse Patient Records regulations: The Federal rules restrict any use of the information to criminally investigate or prosecute any alcohol or drug abuse patient.[facility]In the event this information is protected by the Federal Confidentiality of Alcohol and Drug Abuse Patient Records regulations: The Federal rules restrict any use of the information to criminally investigate or prosecute any alcohol or drug abuse patient.[facility]In the event this information is protected by the Federal Confidentiality of Alcohol and Drug Abuse Patient Records regulations: The Federal rules restrict any use of the information to criminally investigate or prosecute any alcohol or drug abuse patient.[facility]In the event this information is protected by the Federal Confidentiality of Alcohol and Drug Abuse Patient Records regulations: The Federal rules restrict any use of the information to criminally investigate or prosecute any alcohol or drug abuse patient.[facility]In the event this information is protected by the Federal Confidentiality of Alcohol and Drug Abuse Patient Records regulations: The Federal rules restrict any use of the information to criminally investigate or prosecute any alcohol or drug abuse patient.[facility]In the event this information is protected by the Federal Confidentiality of Alcohol and Drug Abuse Patient Records regulations: The Federal rules restrict any use of the information to criminally investigate or prosecute any alcohol or drug abuse patient.[facility]In the event this information is protected by the Federal Confidentiality of Alcohol and Drug Abuse Patient Records regulations: The Federal rules restrict any use of the information to criminally investigate or prosecute any alcohol or drug abuse patient.[facility]In the event this information is protected by the Federal Confidentiality of Alcohol and Drug Abuse Patient Records regulations: The Federal rules restrict any use of the information to criminally investigate or prosecute any alcohol or drug abuse patient.[facility]In the event this information is protected by the Federal Confidentiality of Alcohol and Drug Abuse Patient Records regulations: The Federal rules restrict any use of the information to criminally investigate or prosecute any alcohol or drug abuse patient.[facility]In the event this information is protected by the Federal Confidentiality of Alcohol and Drug Abuse Patient Records regulations: The Federal rules restrict any use of the information to criminally investigate or prosecute any alcohol or drug abuse patient.[facility]In the event this information is protected by the Federal Confidentiality of Alcohol and Drug Abuse Patient Records regulations: The Federal rules restrict any use of the information to criminally investigate or prosecute any alcohol or drug abuse patient.[facility]In the event this information is protected by the Federal Confidentiality of Alcohol and Drug Abuse Patient Records regulations: The Federal rules restrict any use of the information to criminally investigate or prosecute any alcohol or drug abuse patient.[facility]In the event this information is protected by the Federal Confidentiality of Alcohol and Drug Abuse Patient Records regulations: The Federal rules restrict any use of the information to criminally investigate or prosecute any alcohol or drug abuse patient.[facility]In the event this information is protected by the Federal Confidentiality of Alcohol and Drug Abuse Patient Records regulations: The Federal rules restrict any use of the information to criminally investigate or prosecute any alcohol or drug abuse patient.[facility]In the event this information is protected by the Federal Confidentiality of Alcohol and Drug Abuse Patient Records regulations: The Federal rules restrict any use of the information to criminally investigate or prosecute any alcohol or drug abuse patient.[facility]In the event this information is protected by the Federal Confidentiality of Alcohol and Drug Abuse Patient Records regulations: The Federal rules restrict any use of the information to criminally investigate or prosecute any alcohol or drug abuse patient.[facility]In the event this information is protected by the Federal Confidentiality of Alcohol and Drug Abuse Patient Records regulations: The Federal rules restrict any use of the information to criminally investigate or prosecute any alcohol or drug abuse patient.[facility]In the event this information is protected by the Federal Confidentiality of Alcohol and Drug Abuse Patient Records regulations: The Federal rules restrict any use of the information to criminally investigate or prosecute any alcohol or drug abuse patient.[facility]In the event this information is protected by the Federal Confidentiality of Alcohol and Drug Abuse Patient Records regulations: The Federal rules restrict any use of the information to criminally investigate or prosecute any alcohol or drug abuse patient.[facility]In the event this information is protected by the Federal Confidentiality of Alcohol and Drug Abuse Patient Records regulations: The Federal rules restrict any use of the information to criminally investigate or prosecute any alcohol or drug abuse patient.[facility]In the event this information is protected by the Federal Confidentiality of Alcohol and Drug Abuse Patient Records regulations: The Federal rules restrict any use of the information to criminally investigate or prosecute any alcohol or drug abuse patient.[facility]In the event this information is protected by the Federal Confidentiality of Alcohol and Drug Abuse Patient Records regulations: The Federal rules restrict any use of the information to criminally investigate or prosecute any alcohol or drug abuse patient.[facility]In the event this information is protected by the Federal Confidentiality of Alcohol and Drug Abuse Patient Records regulations: The Federal rules restrict any use of the information to criminally investigate or prosecute any alcohol or drug abuse patient.[facility]In the event this information is protected by the Federal Confidentiality of Alcohol and Drug Abuse Patient Records regulations: The Federal rules restrict any use of the information to criminally investigate or prosecute any alcohol or drug abuse patient.[facility]In the event this information is protected by the Federal Confidentiality of Alcohol and Drug Abuse Patient Records regulations: The Federal rules restrict any use of the information to criminally investigate or prosecute any alcohol or drug abuse patient.[facility]In the event this information is protected by the Federal Confidentiality of Alcohol and Drug Abuse Patient Records regulations: The Federal rules restrict any use of the information to criminally investigate or prosecute any alcohol or drug abuse patient.[facility]In the event this information is protected by the Federal Confidentiality of Alcohol and Drug Abuse Patient Records regulations: The Federal rules restrict any use of the information to criminally investigate or prosecute any alcohol or drug abuse patient.[facility] HospitalIn the event this information is protected by the Federal Confidentiality of Alcohol and Drug Abuse Patient Records regulations: The Federal rules restrict any use of the information to criminally investigate or prosecute any alcohol or drug abuse patient.[facility] HospitalIn the event this information is protected by the Federal Confidentiality of Alcohol and Drug Abuse Patient Records regulations: The Federal rules restrict any use of the information to criminally investigate or prosecute any alcohol or drug abuse patient.[facility]In the event this information is protected by the Federal Confidentiality of Alcohol and Drug Abuse Patient Records regulations: The Federal rules restrict any use of the information to criminally investigate or prosecute any alcohol or drug abuse patient.[facility] HospitalIn the event this information is protected by the Federal Confidentiality of Alcohol and Drug Abuse Patient Records regulations: The Federal rules restrict any use of the information to criminally investigate or prosecute any alcohol or drug abuse patient.[facility] HospitalIn the event this information is protected by the Federal Confidentiality of Alcohol and Drug Abuse Patient Records regulations: The Federal rules restrict any use of the information to criminally investigate or prosecute any alcohol or drug abuse patient.[facility]In the event this information is protected by the Federal Confidentiality of Alcohol and Drug Abuse Patient Records regulations: The Federal rules restrict any use of the information to criminally investigate or prosecute any alcohol or drug abuse patient.[facility]In the event this information is protected by the Federal Confidentiality of Alcohol and Drug Abuse Patient Records regulations: The Federal rules restrict any use of the information to criminally investigate or prosecute any alcohol or drug abuse patient.[facility]In the event this information is protected by the Federal Confidentiality of Alcohol and Drug Abuse Patient Records regulations: The Federal rules restrict any use of the information to criminally investigate or prosecute any alcohol or drug abuse patient.[facility]In the event this information is protected by the Federal Confidentiality of Alcohol and Drug Abuse Patient Records regulations: The Federal rules restrict any use of the information to criminally investigate or prosecute any alcohol or drug abuse patient.[facility]In the event this information is protected by the Federal Confidentiality of Alcohol and Drug Abuse Patient Records regulations: The Federal rules restrict any use of the information to criminally investigate or prosecute any alcohol or drug abuse patient.[facility]In the event this information is protected by the Federal Confidentiality of Alcohol and Drug Abuse Patient Records regulations: The Federal rules restrict any use of the information to criminally investigate or prosecute any alcohol or drug abuse patient.[facility]In the event this information is protected by the Federal Confidentiality of Alcohol and Drug Abuse Patient Records regulations: The Federal rules restrict any use of the information to criminally investigate or prosecute any alcohol or drug abuse patient.[facility]In the event this information is protected by the Federal Confidentiality of Alcohol and Drug Abuse Patient Records regulations: The Federal rules restrict any use of the information to criminally investigate or prosecute any alcohol or drug abuse patient.[facility]In the event this information is protected by the Federal Confidentiality of Alcohol and Drug Abuse Patient Records regulations: The Federal rules restrict any use of the information to criminally investigate or prosecute any alcohol or drug abuse patient.[facility]In the event this information is protected by the Federal Confidentiality of Alcohol and Drug Abuse Patient Records regulations: The Federal rules restrict any use of the information to criminally investigate or prosecute any alcohol or drug abuse patient.[facility]In the event this information is protected by the Federal Confidentiality of Alcohol and Drug Abuse Patient Records regulations: The Federal rules restrict any use of the information to criminally investigate or prosecute any alcohol or drug abuse patient.[facility]In the event this information is protected by the Federal Confidentiality of Alcohol and Drug Abuse Patient Records regulations: The Federal rules restrict any use of the information to criminally investigate or prosecute any alcohol or drug abuse patient.[facility]In the event this information is protected by the Federal Confidentiality of Alcohol and Drug Abuse Patient Records regulations: The Federal rules restrict any use of the information to criminally investigate or prosecute any alcohol or drug abuse patient.[facility]In the event this information is protected by the Federal Confidentiality of Alcohol and Drug Abuse Patient Records regulations: The Federal rules restrict any use of the information to criminally investigate or prosecute any alcohol or drug abuse patient.[facility]In the event this information is protected by the Federal Confidentiality of Alcohol and Drug Abuse Patient Records regulations: The Federal rules restrict any use of the information to criminally investigate or prosecute any alcohol or drug abuse patient.[facility]In the event this information is protected by the Federal Confidentiality of Alcohol and Drug Abuse Patient Records regulations: The Federal rules restrict any use of the information to criminally investigate or prosecute any alcohol or drug abuse patient.[facility]In the event this information is protected by the Federal Confidentiality of Alcohol and Drug Abuse Patient Records regulations: The Federal rules restrict any use of the information to criminally investigate or prosecute any alcohol or drug abuse patient.[facility]In the event this information is protected by the Federal Confidentiality of Alcohol and Drug Abuse Patient Records regulations: The Federal rules restrict any use of the information to criminally investigate or prosecute any alcohol or drug abuse patient.[facility]In the event this information is protected by the Federal Confidentiality of Alcohol and Drug Abuse Patient Records regulations: The Federal rules restrict any use of the information to criminally investigate or prosecute any alcohol or drug abuse patient.[facility]In the event this information is protected by the Federal Confidentiality of Alcohol and Drug Abuse Patient Records regulations: The Federal rules restrict any use of the information to criminally investigate or prosecute any alcohol or drug abuse patient.[facility]In the event this information is protected by the Federal Confidentiality of Alcohol and Drug Abuse Patient Records regulations: The Federal rules restrict any use of the information to criminally investigate or prosecute any alcohol or drug abuse patient.[facility] HospitalIn the event this information is protected by the Federal Confidentiality of Alcohol and Drug Abuse Patient Records regulations: The Federal rules restrict any use of the information to criminally investigate or prosecute any alcohol or drug abuse patient.[facility] HospitalIn the event this information is protected by the Federal Confidentiality of Alcohol and Drug Abuse Patient Records regulations: The Federal rules restrict any use of the information to criminally investigate or prosecute any alcohol or drug abuse patient.[facility] HospitalIn the event this information is protected by the Federal Confidentiality of Alcohol and Drug Abuse Patient Records regulations: The Federal rules restrict any use of the information to criminally investigate or prosecute any alcohol or drug abuse patient.[facility] HospitalIn the event this information is protected by the Federal Confidentiality of Alcohol and Drug Abuse Patient Records regulations: The Federal rules restrict any use of the information to criminally investigate or prosecute any alcohol or drug abuse patient.[facility] Care Teams (unrecognized sec tion and content) Lithopone Mill Worker Relationship Specialty Start Date End Date Chip Arreola MD [address] [place], [place] [id number] PCP - General Family Practice 03/21/16 Inocente Romero [address] [facility] [place] [address] [place] [address] [id number] Shell Plater Cardiology 09/09/17 Antonio Cagle MD, PhD [address] [place], [place] [id number] Primary Staff Physician Cardiology 06/23/18 David Galo MD [address] [place] [address] Consulting Infectious Diseases 03/08/20 Dayanna Lewis MD [address] [place] [address] Consulting Orthopedics 03/08/20 Chip Arreola MD [address] [place], [place] [id number] Home Care Physician Family Practice 03/08/20 Dayanna Lewis MD [address] [place], [place] [id number] Referring Orthopedics 03/09/20 Bridgett Guzman, RN [address] [place] [address] Black Top Spreader Machine Operator Post Acute Care 03/09/20 Lithopone Mill Worker Relationship Specialty Start Date End Date Chip Arreola MD [address] [place], [place] [id number] PCP - General Family Practice 03/21/16 Nick, [place] S [address] [address] Shell Plater Cardiology 09/09/17 Antonio Cagle MD, PhD [address] [place] [address] Primary Staff Physician Cardiology 06/23/18 David Galo MD [address] [place] [address] Consulting Infectious Diseases 03/08/20 Dayanna Lewis MD [address] [place] [address] Consulting Orthopedics 03/08/20 Chip Arreola MD [address] [place] [address] Home Care Physician Family Practice 03/08/20 Dayanna Lewis MD [address] [place] [address] Referring Orthopedics 03/09/20 Bridgett Guzman RN [address] [place] [address] Black Top Spreader Machine Operator Post Acute Care 03/09/20 Lithopone Mill Worker Relationship Specialty Start Date End Date Chip Arreola MD [address] [place] [address] PCP - General Family Practice 03/21/16 NickDanny ohril S [address] [address] Shell Plater Cardiology 09/09/17 Antonio Cagle MD, PhD [address] [address] Primary Staff Physician Cardiology 06/23/18 David Galo MD [address] [place] [address] Consulting Infectious Diseases 03/08/20 Dayanna Lewis MD [address] [place] [address] Consulting Orthopedics 03/08/20 Chip Arreola MD [address] [place], [place] [id number] Home Care Physician Family Practice 03/08/20 Dayanna Lewis MD [address] [place] [address] Referring Orthopedics 03/09/20 Bridgett Guzman RN [address] [place] 9619431 Black Top Spreader Machine Operator Post Acute Care 03/09/20 Lithopone Mill Worker Relationship Specialty Start Date End Date Chip Arreola MD [address] [place], [place] [id number] PCP - General Family Practice 03/21/16 Inocente Romero [address] [address] Shell Plater Cardiology 09/09/17 Antonio Cagle MD, PhD [address] [place] [address] Primary Staff Physician Cardiology 06/23/18 David Galo MD [address] [place] [address] Consulting Infectious Diseases 03/08/20 Dayanna Lewis MD [address] [place] [address] Consulting Orthopedics 03/08/20 Chip Arreola MD [address] [place], [place] [id number] Home Care Physician Family Practice 03/08/20 Dayanna Lewis MD [address] [place] [address] Referring Orthopedics 03/09/20 Bridgett Guzman, RN [address] [place], [place] 7342431 Black Top Spreader Machine Operator Post Acute Care 03/09/20 Lithopone Mill Worker Relationship Specialty Start Date End Date Chip Arreola MD [address] [place], [place] [id number] PCP - General Family Practice 03/21/16 Inocente Romero [address] [address] [address] Shell Plater Cardiology 09/09/17 Antonio Cagle MD, PhD [address] [place] [address] Primary Staff Physician Cardiology 06/23/18 David Galo MD [address] [place] [address] Consulting Infectious Diseases 03/08/20 Dayanna Lewis MD [address] [place] [address] Consulting Orthopedics 03/08/20 Chip Arreola MD [address] [place] [address] Home Care Physician Family Practice 03/08/20 Dayanna Lewis MD [address] [place] [address] Referring Orthopedics 03/09/20 Bridgett Guzman RN [address] [place] [address] Black Top Spreader Machine Operator Post Acute Care 03/09/20 Lithopone Mill Worker Relationship Specialty Start Date End Date Chip Arreola MD [address] [place] [address] PCP - General Family Practice 03/21/16 Inocente Romero [address] [place] [address] [place] [address] Shell Plater Cardiology 09/09/17 Antonio Cagle MD, PhD [address] [place] [address] Primary Staff Physician Cardiology 06/23/18 David Galo MD [address] [place] [address] Consulting Infectious Diseases 03/08/20 Dayanna Lewis MD [address] [place] [address] Consulting Orthopedics 03/08/20 Chip Arreola MD [address] [place] [address] Home Care Physician Family Practice 03/08/20 Dayanna Lewis MD [address] [place] [address] Referring Orthopedics 03/09/20 Bridgett Guzman RN [address] [place] [address] Black Top Spreader Machine Operator Post Acute Care 03/09/20 Lithopone Mill Worker Relationship Specialty Start Date End Date Chip Arreola MD [address] [place], [place] [id number] PCP - General Family Practice 03/21/16 Nick, Inocente S [address] [facility] [address] [place] [address] Shell Plater Cardiology 09/09/17 Antonio Cagle MD, PhD [address] [place] [address] Primary Staff Physician Cardiology 06/23/18 David Galo MD [address] [place] [address] Consulting Infectious Diseases 03/08/20 Dayanna Lewis MD [address] [place] [address] Consulting Orthopedics 03/08/20 Chip Arreola MD [address] [place] [address] Home Care Physician Family Practice 03/08/20 Dayanna Lewis MD [address] [place] [address] Referring Orthopedics 03/09/20 Bridgett Guzman RN [address] [place], [place] 3184131 Black Top Spreader Machine Operator Post Acute Care 03/09/20 Lithopone Mill Worker Relationship Specialty Start Date End Date Chip Arreola MD [address] [place] [address] PCP - General Family Practice 03/21/16 Nick, [place] S [address] [facility] [address] [place] [address] Shell Plater Cardiology 09/09/17 Antonio Cagle MD, PhD [address] [place] [address] Primary Staff Physician Cardiology 06/23/18 David Galo MD [address] [place] [address] Consulting Infectious Diseases 03/08/20 Dayanna Lewis MD [address] [place], [place] 0183195 Consulting Orthopedics 03/08/20 Chip Arreola MD [address] [place], [place] 920061 Home Care Physician Family Practice 03/08/20 Dayanna Lewis MD [address] [place] 1874195 Referring Orthopedics 03/09/20 Bridgett Guzman RN [address] [place] [address] Black Top Spreader Machine Operator Post Acute Care 03/09/20 Lithopone Mill Worker Relationship Specialty Start Date End Date Chip Arreola MD [address] [place], [place] [id number] PCP - General Family Practice 03/21/16 Incoente Romero [address] [address] Shell Plater Cardiology 09/09/17 Antonio Cagle MD, PhD [address] [place] [address] Primary Staff Physician Cardiology 06/23/18 David Galo MD [address] [place] [address] Consulting Infectious Diseases 03/08/20 Dayanna Lewis MD [address] [place] [address] Consulting Orthopedics 03/08/20 Chip Arreola MD [address] [place], [place] [id number] Home Care Physician Family Practice 03/08/20 Dayanna Lewis MD [address] [place] [address] Referring Orthopedics 03/09/20 Bridgett Guzman RN [address] [place] 5707331 Black Top Spreader Machine Operator Post Acute Care 03/09/20 Lithopone Mill Worker Relationship Specialty Start Date End Date Chip Arreola MD [address] [place], [place] [id number] PCP - General Family Practice 03/21/16 Inocente Romero [address] [address] Shell Plater Cardiology 09/09/17 Antonio Cagle MD, PhD [address] [place] [address] Primary Staff Physician Cardiology 06/23/18 David Galo MD [address] [place] [address] Consulting Infectious Diseases 03/08/20 Dayanna Lewis MD [address] [place] [address] Consulting Orthopedics 03/08/20 Chip Arreola MD [address] [place], [place] [phone] Home Care Provider Family Practice 03/08/20 Dayanna Lewis MD [address] [place], [place] 0689695 Referring Orthopedics 03/09/20 Bridgett Guzman RN [address] [place], [place] 7538631 Black Top Spreader Machine Operator Post Acute Care 03/09/20 Lithopone Mill Worker Relationship Specialty Start Date End Date Chip Arreola MD [address] [place] [address] PCP - General Family Medicine 03/21/16 Inocente Romero [address] [address] Shell Plater Cardiology 09/09/17 Antonio Cagle MD, PhD [address] [place] [address] Primary Staff Physician Cardiology 06/23/18 David Galo MD [address] [place] [address] Consulting Infectious Diseases 03/08/20 Dayanna Lewis MD [address] [place] [address] Consulting Orthopedics 03/08/20 Chip Arreola MD [address] [place] [address] Home Care Provider Family Medicine 03/08/20 Dayanna Lewis MD [address] [place] [address] Referring Orthopedics 03/09/20 Bridgett Guzman RN [address] [place] [address] Black Top Spreader Machine Operator Post Acute Care 03/09/20 Lithopone Mill Worker Relationship Specialty Start Date End Date Chip Arreola MD [address] [place], [place] [id number] PCP - General Family Medicine 03/21/16 Nick, [place] S [address] [place] [address] [place] [address] Shell Plater Cardiology 09/09/17 Antonio Cagle MD, PhD [address] [place] [address] Primary Staff Physician Cardiology 06/23/18 David Galo MD [address] [place] [address] Consulting Infectious Diseases 03/08/20 Dayanna Lewis MD [address] [place] [address] Consulting Orthopedics 03/08/20 Chip Arreola MD [address] [place] [address] Home Care Provider Family Medicine 03/08/20 Dayanna Lewis MD [address] [place] [address] Referring Orthopedics 03/09/20 Bridgett Guzamn RN [address] [place], [place] 1835431 Black Top Spreader Machine Operator Post Acute Care 03/09/20 Lithopone Mill Worker Relationship Specialty Start Date End Date Chip Arreola MD [address] [place] [address] PCP - General Family Medicine 03/21/16 Nick, Inocente S [address] [address] [place] [address] Shell Plater Cardiology 09/09/17 Antonio Cagle MD, PhD [address] [place] [address] Primary Staff Physician Cardiology 06/23/18 David Galo MD [address] [place] [address] Consulting Infectious Diseases 03/08/20 Dayanna Lewis MD [address] [place] [address] Consulting Orthopedics 03/08/20 Chip Arreola MD [address] [place], [place] 658791 Home Care Provider Family Medicine 03/08/20 Dayanna Lewis MD [address] [place], [place] 3924795 Referring Orthopedics 03/09/20 Bridgett Guzman RN [address] [place], [place] 0257331 Black Top Spreader Machine Operator Post Acute Care 03/09/20 Lithopone Mill Worker Relationship Specialty Start Date End Date Chip Arreola MD [address] [place], [place] 090571 PCP - General Family Medicine 03/21/16 Inocente Romero [address] [address] Shell Plater Cardiology 09/09/17 Antonio Cagle MD, PhD [address] [place] [address] Primary Staff Physician Cardiology 06/23/18 David Galo MD [address] [place] [address] Consulting Infectious Diseases 03/08/20 Dayanna Lewis MD [address] [place] [address] Consulting Orthopedics 03/08/20 Chip Arreola MD [address] [place], [place] 718921 Home Care Provider Family Medicine 03/08/20 Dayanna Lewis MD [address] [place] [address] Referring Orthopedics 03/09/20 Bridgett Guzman RN [address] [place], [place] 3696931 Black Top Spreader Machine Operator Post Acute Care 03/09/20 Lithopone Mill Worker Relationship Specialty Start Date End Date No, Physician [facility] PCP - General 04/14/22 Lithopone Mill Worker Relationship Specialty Start Date End Date Chip Arreola MD [address] [place], [place] 613261 PCP - General Family Medicine 03/21/16 Inocente Romero [address] [id number] Shell Plater Cardiology 09/09/17 Antonio Cagle MD, PhD [address] [place] [address] Primary Staff Physician Cardiology 06/23/18 David Galo MD [address] [place] [address] Consulting Infectious Diseases 03/08/20 Dayanna Lewis MD [address] [place] [address] Consulting Orthopedics 03/08/20 Chip Arreola MD [address] [place], [place] [id number] Home Care Provider Family Medicine 03/08/20 Dayanna Lewis MD [address] [place] [address] Referring Orthopedics 03/09/20 Bridgett Guzman RN [address] [place] [address] Black Top Spreader Machine Operator Post Acute Care 03/09/20 Lithopone Mill Worker Relationship Specialty Start Date End Date Chip Arreola MD [address] [place] [address] PCP - General Family Medicine 03/21/16 Inocente Romero [address] [address] Shell Plater Cardiology 09/09/17 Antonio Cagle MD, PhD [address] [place] [address] Primary Staff Physician Cardiology 06/23/18 David Galo MD [address] [place] [address] Consulting Infectious Diseases 03/08/20 Dayanna Lewis MD [address] [place] [address] Consulting Orthopedics 03/08/20 Chip Arreola MD [address] [place] [address] Home Care Provider Family Medicine 03/08/20 Dayanna Lewis MD [address] [place] [address] Referring Orthopedics 03/09/20 Bridgett Guzman RN [address] [place] [address] Black Top Spreader Machine Operator Post Acute Care 03/09/20 Lithopone Mill Worker Relationship Specialty Start Date End Date Chip Arreola MD [address] [place], [place] [id number] PCP - General Family Medicine 03/21/16 Inocente Romero [address] [address] Shell Plater Cardiology 09/09/17 Antonio Cagle MD, PhD [address] [place] [address] Primary Staff Physician Cardiology 06/23/18 David Galo MD [address] [place] [address] Consulting Infectious Diseases 03/08/20 Dayanna Lewis MD [address] [place] [address] Consulting Orthopedics 03/08/20 Chip Arreola MD [address] [place], [place] [id number] Home Care Provider Family Medicine 03/08/20 Dayanna Lewis MD [address] [place] [address] Referring Orthopedics 03/09/20 Bridgett Guzman RN [address] [place], [place] 2133331 Black Top Spreader Machine Operator Post Acute Care 03/09/20 Lithopone Mill Worker Relationship Specialty Start Date End Date Chip Arreola MD [address] [place] [address] PCP - General Family Medicine 03/21/16 Inocente Romero MD [address] [address] Shell Plater Cardiology 09/09/17 Antonio Cagle MD, PhD [address] [address] Primary Staff Physician Cardiology 06/23/18 David Galo MD [address] [place], [place] 0500095 Consulting Infectious Diseases 03/08/20 Dayanna Lewis MD [address] [place] [id number] Consulting Orthopedics 03/08/20 Chip Arreola MD [address] [place], [place] [id number] Home Care Provider Family Medicine 03/08/20 Dayanna Lewis MD [address] [place] [address] Referring Orthopedics 03/09/20 Bridgett Guzman RN [address] [place], [place] 1808531 Black Top Spreader Machine Operator Post Acute Care 03/09/20 Lithopone Mill Worker Relationship Specialty Start Date End Date Chip Arreola MD [address] [place], [place] [id number] PCP - General Family Medicine 03/21/16 Inocente Romero MD [address] [place] [address] [place] [address] Shell Plater Cardiology 09/09/17 Antonio Cagle MD, PhD [address] [place], [place] 3793195 Primary Staff Physician Cardiology 06/23/18 David Galo MD [address] [place] [address] Consulting Infectious Diseases 03/08/20 Dayanna Lewis MD [address] [place], [place] 2328295 Consulting Orthopedics 03/08/20 Chip Arreola MD [address] [place], [place] 104051 Home Care Provider Family Medicine 03/08/20 Dayanna Lewis MD [address] [place], [place] 2730495 Referring Orthopedics 03/09/20 Bridgett Guzman RN [address] [place] [address] Black Top Spreader Machine Operator Post Acute Care 03/09/20 Lithopone Mill Worker Relationship Specialty Start Date End Date Chip Arreola MD [address] [place], [place] 382461 PCP - General Family Medicine 03/21/16 Inocente Romero MD [address] [id number] Shell Plater Cardiology 09/09/17 Antonio Cagle MD, PhD [address] [place] [address] Primary Staff Physician Cardiology 06/23/18 David Galo MD [address] [place] [address] Consulting Infectious Diseases 03/08/20 Dayanna Lewis MD [address] [place], [place] 9875995 Consulting Orthopedics 03/08/20 Chip Arreola MD [address] [place], [place] 891871 Home Care Provider Family Medicine 03/08/20 Dayanna Lewis MD [address] [place], [place] 6524295 Referring Orthopedics 03/09/20 Bridgett Guzman, JAMAR [address] [place] [address] Black Top Spreader Machine Operator Post Acute Care 03/09/20 Team Status: Active Member Role Status Dates Dr. Chip Arreola MD Family Provider Active Dr. Chip Arreola MD Primary Care Provider Active Team Status: Inactive Member Role Status Dates Dr. Chip Arreola MD Primary Care Provi caleb, Attending Provider, Referring Provider Active Lithopone Mill Worker Relationship Specialty Start Date End Date Chip Arreola MD [address] [place], [place] [id number] PCP - General Family Medicine 03/21/16 Inocente Romero MD [address] [address] Shell Plater Cardiology 09/09/17 Antonio Cagle MD, PhD [address] [place], [place] 3850195 Primary Staff Physician Cardiology 06/23/18 David Galo MD [address] [place], [place] 5712095 Consulting Infectious Diseases 03/08/20 Dayanna Lewis MD [address] [place], [place] 8174195 Consulting Orthopedics 03/08/20 Chip Arreola MD [address] [place], [place] 706841 Home Care Provider Family Medicine 03/08/20 Dayanna Lewis MD [address] [place], [place] 2997495 Referring Orthopedics 03/09/20 Bridgett Guzman RN [address] [place] 4937331 Black Top Spreader Machine Operator Post Acute Care 03/09/20 Lithopone Mill Worker Relationship Specialty Start Date End Date Chip Arreola MD [address] [place], [place] 071771 PCP - General Family Medicine 03/21/16 Inocente Romero MD [address] 987461 Shell Plater Cardiology 09/09/17 Antonio Cagle MD, PhD [address] [place] [address] Primary Staff Physician Cardiology 06/23/18 David Galo MD [address] [place], [place] 3820095 Consulting Infectious Diseases 03/08/20 Dayanna Lewis MD [address] [place], [place] 5553595 Consulting Orthopedics 03/08/20 Chip Arreola MD [address] [place], [place] 16538691 Home Care Provider Family Medicine 03/08/20 Dayanna Lewis MD [address] [place], [place] 3054895 Referring Orthopedics 03/09/20 Bridgett Guzman, RN [address] [place] 7664831 Black Top Spreader Machine Operator Post Acute Care 03/09/20 Lithopone Mill Worker Relationship Specialty Start Date End Date Chip Arreola MD [address] [place], [place] 716381 PCP - General Family Medicine 03/21/16 Inocente Romero MD [address] 439[address] Shell Plater Cardiology 09/09/17 Antonio Cagle MD, PhD [address] [place] [address] Primary Staff Physician Cardiology 06/23/18 David Galo MD [address] [place] [address] Consulting Infectious Diseases 03/08/20 Dayanna Lewis MD [address] [place], [place] 3703395 Consulting Orthopedics 03/08/20 Chip Arreola MD [address] [place], [place] 77612691 Home Care Provider Family Medicine 03/08/20 Dayanna Lewis MD [address] [place], [place] 2981095 Referring Orthopedics 03/09/20 Bridgett Guzman RN [address] [place] [address] Black Top Spreader Machine Operator Post Acute Care 03/09/20 Lithopone Mill Worker Relationship Specialty Start Date End Date Chip Arreola MD [address] [place], [place] 18903691 PCP - General Family Medicine 03/21/16 Inocente Romero MD [address] [id number] Shell Plater Cardiology 09/09/17 Antonio Cagle MD, PhD [address] [place], [place] 0905095 Primary Staff Physician Cardiology 06/23/18 David Galo MD [address] [place] [address] Consulting Infectious Diseases 03/08/20 Dayanna Lewis MD [address] [place] [address] Consulting Orthopedics 03/08/20 Chip Arreola MD [address] [place], [place] [id number] Home Care Provider Family Medicine 03/08/20 Dayanna Lewis MD [address] [place] [address] Referring Orthopedics 03/09/20 Bridgett Guzman RN [address] [place], [place] 4172931 Black Top Spreader Machine Operator Post Acute Care 03/09/20 Lithopone Mill Worker Relationship Specialty Start Date End Date Chip Arreola MD [address] [place], [place] 681581 PCP - General Family Medicine 03/21/16 Inocente Romero MD [address] [id number] Shell Plater Cardiology 09/09/17 Antonio Cagle MD, PhD [address] [place] [address] Primary Staff Physician Cardiology 06/23/18 David Galo MD [address] [place] [address] Consulting Infectious Diseases 03/08/20 Dayanna Lewis MD [address] [place] [address] Consulting Orthopedics 03/08/20 Chip Arreola MD [address] [place], [place] 138961 Home Care Provider Family Medicine 03/08/20 Dayanna Lewis MD [address] [place] [address] Referring Orthopedics 03/09/20 Bridgett Guzman RN [address] [place], [place] 5140931 Black Top Spreader Machine Operator Post Acute Care 03/09/20 Lithopone Mill Worker Relationship Specialty Start Date End Date Chip Arreola MD [address] [place], [place] [id number] PCP - General Family Medicine 03/21/16 Inocente Romero MD [address] [id number] Shell Plater Cardiology 09/09/17 Antonio Cagle MD, PhD [address] [place] [address] Primary Staff Physician Cardiology 06/23/18 David Galo MD [address] [place] [address] Consulting Infectious Diseases 03/08/20 Dayanna Lewis MD [address] [place] [address] Consulting Orthopedics 03/08/20 Chip Arreola MD [address] [place], [place] 96835691 Home Care Provider Family Medicine 03/08/20 Dayanna Lewis MD [address] [place] [address] Referring Orthopedics 03/09/20 Bridgett Guzman RN [address] [place] [address] Black Top Spreader Machine Operator Post Acute Care 03/09/20 Lithopone Mill Worker Relationship Specialty Start Date End Date Chip Arreola MD [address] [place], [place] 403801 PCP - General Family Medicine 03/21/16 Inocente Romero MD 176Charly [address] [address] Shell Plater Cardiology 09/09/17 Antonio Cagle MD, PhD [address] [place] [address] Primary Staff Physician Cardiology 06/23/18 David Galo MD [address] [place] [address] Consulting Infectious Diseases 03/08/20 Dayanna Lewis MD [address] [place] [address] Consulting Orthopedics 03/08/20 Chip Arreola MD [address] [place], [place] 62396691 Home Care Provider Family Medicine 03/08/20 Dayanna Lewis MD [address] [place] [address] Referring Orthopedics 03/09/20 Bridgett Guzman RN [address] [place] [address] Black Top Spreader Machine Operator Post Acute Care 03/09/20 Lithopone Mill Worker Relationship Specialty Start Date End Date Chip Arreola MD [address] [place], [place] [id number] PCP - General Family Medicine 03/21/16 Inocente Romero MD [address] [facility] [address] [place] [address] Shell Plater Cardiology 09/09/17 Antonio Cagle MD, PhD [address] [place] [address] Primary Staff Physician Cardiology 06/23/18 David Galo MD [address] [place] [address] Consulting Infectious Diseases 03/08/20 Dayanna Lewis MD [address] [place], [place] 1308895 Consulting Orthopedics 03/08/20 Chip Arreola MD [address] [place] [address] Home Care Provider Family Medicine 03/08/20 Dayanna Lewis MD [address] [place] [address] Referring Orthopedics 03/09/20 Bridgett Guzman RN [address] [place] [address] Black Top Spreader Machine Operator Post Acute Care 03/09/20 Lithopone Mill Worker Relationship Specialty Start Date End Date Chip Arreola MD [address] [place], [place] [id number] PCP - General Family Medicine 03/21/16 Inocente Romero MD [address] [facility] [address] [place] [address] Shell Plater Cardiology 09/09/17 Antonio Cagle MD, PhD [address] [place] [address] Primary Staff Physician Cardiology 06/23/18 David Galo MD [address] [place] [address] Consulting Infectious Diseases 03/08/20 Dayanna Lewis MD [address] [place], [place] 6565095 Consulting Orthopedics 03/08/20 Chip Arreola MD [address] [place], [place] [id number] Home Care Provider Family Medicine 03/08/20 Dayanna Lewis MD [address] [place] [address] Referring Orthopedics 03/09/20 Bridgett Guzman, RN [address] [place], [place] 8389131 Black Top Spreader Machine Operator Post Acute Care 03/09/20 Lithopone Mill Worker Relationship Specialty Start Date End Date Chip Arreola MD [address] [place], [place] [id number] PCP - General Family Medicine 03/21/16 Inocente Romero MD [address] [id number] Shell Plater Cardiology 09/09/17 Antonio Cagle MD, PhD [address] [place], [place] 9651695 Primary Staff Physician Cardiology 06/23/18 David Galo MD [address] [place] [id number] Consulting Infectious Diseases 03/08/20 Dayanna Lewis MD [address] [place], [place] 1419295 Consulting Orthopedics 03/08/20 Chip Arreola MD [address] [place], [place] [id number] Home Care Provider Family Medicine 03/08/20 Dayanna Lewis MD [address] [place], [place] 7316595 Referring Orthopedics 03/09/20 Bridgett Guzman RN [address] [place], [place] [id number] Black Top Spreader Machine Operator Post Acute Care 03/09/20 Lithopone Mill Worker Relationship Specialty Start Date End Date Chip Arreola MD [address] [place], [place] 824081 PCP - General Family Medicine 03/21/16 Inocente Romero MD [address] 084731 Shell Plater Cardiology 09/09/17 Antonio Cagle MD, PhD [address] [place] [address] Primary Staff Physician Cardiology 06/23/18 David Galo MD [address] [place] [address] Consulting Infectious Diseases 03/08/20 Dayanna Lewis MD [address] [place], [place] [id number] Consulting Orthopedics 03/08/20 Chip Arreola MD [address] [place], [place] 646151 Home Care Provider Family Medicine 03/08/20 Dayanna Lewis MD [address] [place], [place] 4151995 Referring Orthopedics 03/09/20 Bridgett Guzman RN [address] [place], [place] 0600631 Black Top Spreader Machine Operator Post Acute Care 03/09/20 Lithopone Mill Worker Relationship Specialty Start Date End Date Chip Arreola MD [address] [place] [address] PCP - General Family Medicine 03/21/16 Inocente Romero MD [address] [address] Shell Plater Cardiology 09/09/17 Antonio Cagle MD, PhD [address] [place] [address] Primary Staff Physician Cardiology 06/23/18 Lithopone Mill Worker Relationship Specialty Start Date End Date Chip Arreola MD [address] [place] [address] PCP - General Family Medicine 03/21/16 Inocente Romero MD [address] [place] [address] Shell Plater Cardiology 09/09/17 Antonio Cagle MD, PhD [address] [place] [address] Primary Staff Physician Cardiology 06/23/18 David Galo MD [address] [place] [address] Consulting Infectious Diseases 03/08/20 Dayanna Lewis MD [address] [place] [address] Consulting Orthopedics 03/08/20 Chip Arreola MD [address] [place], [place] 213741 Home Care Provider Family Medicine 03/08/20 Dayanna Lewis MD [address] [place] [address] Referring Orthopedics 03/09/20 Bridgett Guzman RN [address] [place], [place] 0719331 Black Top Spreader Machine Operator Post Acute Care 03/09/20 Lithopone Mill Worker Relationship Specialty Start Date End Date Chip Arreola MD [address] [place], [place] [id number] PCP - General Family Medicine 03/21/16 Inocente Romero MD [address] [address] Shell Plater Cardiology 09/09/17 Antonio Cagle MD, PhD [address] [place] [address] Primary Staff Physician Cardiology 06/23/18 David Galo MD [address] [place] [address] Consulting Infectious Diseases 03/08/20 Dayanna Lewis MD [address] [place], [place] 1877095 Consulting Orthopedics 03/08/20 Chip Arreola MD [address] [place], [place] 58786691 Home Care Provider Family Medicine 03/08/20 Dayanna Lewis MD [address] [place] [address] Referring Orthopedics 03/09/20 Bridgett Guzman, RN [address] [place] [address] Black Top Spreader Machine Operator Post Acute Care 03/09/20 Lithopone Mill Worker Relationship Specialty Start Date End Date Chip Arreola MD [address] [place], [place] [id number] PCP - General Family Medicine 03/21/16 Inocente Romero MD [address] 139811 Shell Plater Cardiology 09/09/17 Antonio Cagle MD, PhD [address] [place] [address] Primary Staff Physician Cardiology 06/23/18 David Galo MD [address] [place] [address] Consulting Infectious Diseases 03/08/20 Dayanna Lewis MD [address] [place], [place] 8830295 Consulting Orthopedics 03/08/20 Chip Arreola MD [address] [place], [place] 069721 Home Care Provider Family Medicine 03/08/20 Dayanna Lewis MD [address] [place], [place] 2524295 Referring Orthopedics 03/09/20 Bridgett Guzman RN [address] [place], [place] 3237331 Black Top Spreader Machine Operator Post Acute Care 03/09/20 Emelina Pal, ALICIA.DIAGRAM CLERK [address] [place], [place] 20357691 Shell Plater Family Medicine 03/15/24 Belkys Mcintyre, OPTOMETRIST.DIAGRAM CLERK [address] [place], [place] 20302691 Shell Plater Family Medicine 03/15/24 Lithopone Mill Worker Relationship Specialty Start Date End Date Chip Arreola MD [address] [place], [place] [id number] PCP - General Family Medicine 03/21/16 Inocente Romero MD [address] 0415[address] Shell Plater Cardiology 09/09/17 Antonio Cagle MD, PhD [address] [place], [place] 9854495 Primary Staff Physician Cardiology 06/23/18 David Galo MD [address] [place], [place] 5695595 Consulting Infectious Diseases 03/08/20 Dayanna Lewis MD [address] [place], [place] 6594295 Consulting Orthopedics 03/08/20 Chip Arreola MD [address] [place], [place] [id number] Home Care Provider Family Medicine 03/08/20 Dayanna Lewis MD [address] [place] [address] Referring Orthopedics 03/09/20 Bridgett Guzman, RN [address] [place], [place] 0203231 Black Top Spreader Machine Operator Post Acute Care 03/09/20 Emelina Pal APRN.DIAGRAM CLERK [address] [place] [address] Shell Plater Family Medicine 03/15/24 Belkys Mcintyre APRN.DIAGRAM CLERK [address] [place], [place] 68369691 Shell Plater Family Medicine 03/15/24 Lithopone Mill Worker Relationship Specialty Start Date End Date Chip Arreola MD [address] [place], [place] [id number] PCP - General Family Medicine 03/21/16 Inocente Romero MD [address] [id number] Shell Plater Cardiology 09/09/17 Antonio Cagle MD, PhD [address] [place], [place] 6100295 Primary Staff Physician Cardiology 06/23/18 David Galo MD [address] [place], [place] 2976495 Consulting Infectious Diseases 03/08/20 Dayanna Lewis MD [address] [place] [address] Consulting Orthopedics 03/08/20 Chip Arreola MD [address] [place], [place] 51229691 Home Care Provider Family Medicine 03/08/20 Dayanna Lewis MD [address] [place], [place] 7156895 Referring Orthopedics 03/09/20 Bridgett Guzman, RN [address] [place] [address] Black Top Spreader Machine Operator Post Acute Care 03/09/20 Emelina Pal APRN.DIAGRAM CLERK [address] [place], [place] 33188691 Shell Plater Family Medicine 03/15/24 Belkys Mcintyre APRN.DIAGRAM CLERK [address] [place], [place] 19206691 Shell Plater Family Medicine 03/15/24 Lithopone Mill Worker Relationship Specialty Start Date End Date Chip Arreola MD [address] [place], [place] 56166691 PCP - General Family Medicine 03/21/16 Inocente Romero MD [address] [id number] Shell Plater Cardiology 09/09/17 Antonio Cagle MD, PhD [address] [place], [place] 3919795 Primary Staff Physician Cardiology 06/23/18 David Galo MD [address] [place], [place] 0005095 Consulting Infectious Diseases 03/08/20 Dayanna Lewis MD [address] [place] [address] Consulting Orthopedics 03/08/20 Chip Arreola MD [address] [place], [place] 972341 Home Care Provider Family Medicine 03/08/20 Dayanna Lewis MD [address] [place] [address] Referring Orthopedics 03/09/20 Bridgett Guzman RN [address] [place] [address] Black Top Spreader Machine Operator Post Acute Care 03/09/20 Emelina Pal APRN.DIAGRAM CLERK [address] [place], [place] 770361 Shell Plater Family Medicine 03/15/24 Lithopone Mill Worker Relationship Specialty Start Date End Date Chip Arreola MD [address] [place], [place] 179541 PCP - General Family Medicine 03/21/16 Inocente Romero MD [address] 500511 Shell Plater Cardiology 09/09/17 Antonio Cagle MD, PhD [address] [place] 1206295 Primary Staff Physician Cardiology 06/23/18 David Galo MD [address] [place] [address] Consulting Infectious Diseases 03/08/20 Dayanna Lewis MD [address] [place] [address] Consulting Orthopedics 03/08/20 Chip Arreola MD [address] [place], [place] 02941691 Home Care Provider Family Medicine 03/08/20 Dayanna Lewis MD [address] [place] 8106495 Referring Orthopedics 03/09/20 Bridgett Guzman RN [address] [place] [address] Black Top Spreader Machine Operator Post Acute Care 03/09/20 Emelina Pal APRN.DIAGRAM CLERK [address] [place], [place] 893711 Shell Plater Family Medicine 03/15/24 Belkys Mcintyre APRN.DIAGRAM CLERK [address] [place], [place] 969331 Shell Plater Family Medicine 03/15/24 Lithopone Mill Worker Relationship Specialty Start Date End Date Chip Arreola MD [address] [place], [place] 914431 PCP - General Family Medicine 03/21/16 Inocente Romero MD [address] 489291 Shell Plater Cardiology 09/09/17 Antonio Cagle MD, PhD [address] [place], [place] 3756595 Primary Staff Physician Cardiology 06/23/18 David Galo MD [address] [place] [address] Consulting Infectious Diseases 03/08/20 Dayanna Lewis MD [address] [place] [address] Consulting Orthopedics 03/08/20 Chip Arreola MD [address] [place], [place] 96413691 Home Care Provider Family Medicine 03/08/20 Dayanna Lewis MD [address] [place] [address] Referring Orthopedics 03/09/20 Bridgett Guzman, RN [address] [place] [place] 9424631 Black Top Spreader Machine Operator Post Acute Care 03/09/20 Emelina Pal, ALICIA.DIAGRAM CLERK [address] [place], [place] 489771 Shell Plater Family [facility] 03/15/24 Belkys Mcintyre OPTOMETRIST.DIAGRAM CLERK [address] [place], [place] 115621 Shell Plater Family [facility] 03/15/24 Lithopone Mill Worker Relationship Specialty Start Date End Date Chip Arreola MD [address] [place], [place] [id number] PCP - General Family Medicine 03/21/16 Inocente Romero MD [address] 667641 Shell Plater Cardiology 09/09/17 Antonio Cagle MD, PhD [address] [place] [address] Primary Staff Physician Cardiology 06/23/18 David Galo MD [address] [place], [place] 0422595 Consulting Infectious Diseases 03/08/20 Dayanna Lewis MD [address] [place] [address] Consulting Orthopedics 03/08/20 Chip Arreola MD [address] [place], [place] 38783674 Home Care Provider Family Medicine 03/08/20 Dayanna Lewis MD [address] [place], [place] 7522795 Referring Orthopedics 03/09/20 Bridgett Guzman RN [address] [place], [place] 6291031 Black Top Spreader Machine Operator Post Acute Care 03/09/20 Emelina Pal, ALICIA.DIAGRAM CLERK [address] [place], [place] 74231691 Shell Plater Family Medicine 03/15/24 Belkys Mcintyre OPTOMETRIST.DIAGRAM CLERK [address] [place], [place] 115211 Shell Plater Family [facility] 03/15/24 Lithopone Mill Worker Relationship Specialty Start Date End Date Chip Arreola MD [address] [place], [place] [id number] PCP - General Family Medicine 03/21/16 Inocente Romero MD [address] 520721 Shell Plater Cardiology 09/09/17 Antonio Cagle MD, PhD [address] [place] [address] Primary Staff Physician Cardiology 06/23/18 David Galo MD [address] [place] [address] Consulting Infectious Diseases 03/08/20 Dayanna Lewis MD [address] [place] [address] Consulting Orthopedics 03/08/20 Chip Arreola MD [address] [place], [place] 427321 Home Care Provider Family Medicine 03/08/20 Dayanna Lewis MD [address] [place] [address] Referring Orthopedics 03/09/20 Bridgett Guzman RN [address] [place] [address] Black Top Spreader Machine Operator Post Acute Care 03/09/20 Emelina Pal APRN.DIAGRAM CLERK [address] [place], [place] 50139691 Shell Plater Family Medicine 03/15/24 Belkys Mcintyre OPTOMETRIST.DIAGRAM CLERK [address] [place], [place] 783291 Shell Plater Family [facility] 03/15/24 Lithopone Mill Worker Relationship Specialty Start Date End Date Chip Arreola MD [address] [place], [place] [id number] PCP - General Family Medicine 03/21/16 Inocente Romero MD [address] [address] Shell Plater Cardiology 09/09/17 Antonio Cagle MD, PhD [address] [place], [place] 4228595 Primary Staff Physician Cardiology 06/23/18 David Galo MD [address] [place] [address] Consulting Infectious Diseases 03/08/20 Dayanna Lewis MD [address] [place], [place] 2245095 Consulting Orthopedics 03/08/20 Chip Arreola MD [address] [place], [place] 972061 Home Care Provider Family Medicine 03/08/20 Dayanna Lewis MD [address] [place], [place] 3989295 Referring Orthopedics 03/09/20 Bridgett Guzman RN [address] [place], [place] 4662231 Black Top Spreader Machine Operator Post Acute Care 03/09/20 Emeilna Pal, ALICIA.DIAGRAM CLERK [address] [place], [place] 77150691 Shell Plater Family Medicine 03/15/24 Belkys Mcintyre, OPTOMETRIST.DIAGRAM CLERK [address] [place], [place] 478711 Shell Plater Family Medicine 03/15/24 Lithopone Mill Worker Relationship Specialty Start Date End Date Chip Arreola MD [address] [place], [place] 30219691 PCP - General Family Medicine 03/21/16 Inocente Romero MD [address] 863511 Shell Plater Cardiology 09/09/17 Antonio Cagle MD, PhD [address] [place] [address] Primary Staff Physician Cardiology 06/23/18 David Galo MD [address] [place] [address] Consulting Infectious Diseases 03/08/20 Dayanna Lewis MD [address] [place], [place] 7708895 Consulting Orthopedics 03/08/20 Chip Arreola MD [address] [place], [place] 98085691 Home Care Provider Family Medicine 03/08/20 Dayanna Lewis MD [address] [place] [address] Referring Orthopedics 03/09/20 Bridgett Guzman, RN [address] [place], [place] 5879031 Black Top Spreader Machine Operator Post Acute Care 03/09/20 Emelina Pal APRN.DIAGRAM CLERK [address] [place], [place] 36893691 Shell Plater Family Medicine 03/15/24 Belkys Mcintyre OPTOMETRIST.DIAGRAM CLERK [address] [place], [place] 57193691 Shell Plater Family Medicine 03/15/24 Lithopone Mill Worker Relationship Specialty Start Date End Date Chip Arreola MD [address] [place], [place] [id number] PCP - General Family Medicine 03/21/16 Inocente Romero MD [address] [id number] Shell Plater Cardiology 09/09/17 Antonio Cagle MD, PhD [address] [place], [place] 1588795 Primary Staff Physician Cardiology 06/23/18 David Galo MD [address] [place], [place] 3316495 Consulting Infectious Diseases 03/08/20 Dayanna Lewis MD [address] [place], [place] 5157595 Consulting Orthopedics 03/08/20 Chip Arreola MD [address] [place], [place] [id number] Home Care Provider Family Medicine 03/08/20 Dayanna Lewis MD [address] [place], [place] 4054095 Referring Orthopedics 03/09/20 Bridgett Guzman, RN [address] [place] [address] Black Top Spreader Machine Operator Post Acute Care 03/09/20 Emelina Pal APRN.DIAGRAM CLERK [address] [place], [place] 55148691 Shell Plater Family Medicine 03/15/24 Belkys Mcintyre APRN.DIAGRAM CLERK [address] [place], [place] 29573691 Shell Plater Family Medicine 03/15/24 Lithopone Mill Worker Relationship Specialty Start Date End Date Chip Arreola MD [address] [place] [address] PCP - General Family Medicine 03/21/16 Inocente Romero MD [address] [address] Shell Plater Cardiology 09/09/17 Antonio Cagle MD, PhD [address] [place] [address] Primary Staff Physician Cardiology 06/23/18 David Galo MD [address] [place] [address] Consulting Infectious Diseases 03/08/20 Dayanna Lewis MD [address] [place] [address] Consulting Orthopedics 03/08/20 Chip Arreola MD [address] [place], [place] 92344691 Home Care Provider Family Medicine 03/08/20 Dayanna Lewis MD [address] [place] [address] Referring Orthopedics 03/09/20 Bridgett Guzman, RN [address] [place] [address] Black Top Spreader Machine Operator Post Acute Care 03/09/20 Emelina Pal APRN.DIAGRAM CLERK [address] [place], [place] 33266232 Shell Plater Family Medicine 03/15/24 Belkys Mcintyre APRN.[facility] [address] [place], [place] 572901 Shell Plater Family Medicine 03/15/24 Lithopone Mill Worker Relationship Specialty Start Date End Date Chip Arreola MD [address] [place], [place] 882071 PCP - General Family Medicine 03/21/16 Inocente Roemro MD [address] [phone] Shell Plater Cardiology 09/09/17 Antonio Cagle MD, PhD [address] [place] [address] Primary Staff Physician Cardiology 06/23/18 David Galo MD [address] [place], [place] 4869895 Consulting Infectious Diseases 03/08/20 Dayanna Lewis MD [address] [place] [address] Consulting Orthopedics 03/08/20 Chip Arreola MD [address] [place], [place] 731591 Home Care Provider Family Medicine 03/08/20 Dayanna Lewis MD [address] [place], [place] 2242495 Referring Orthopedics 03/09/20 Bridgett Guzman, RN [address] [place], [place] 1927631 Black Top Spreader Machine Operator Post Acute Care 03/09/20 Emelina Pal, ALICIA.DIAGRAM CLERK [address] [place] [address] Shell Plater Family Medicine 03/15/24 Belkys Mcintyre APRN.DIAGRAM CLERK [address] [place], [place] 533411 Shell Plater Family Medicine 03/15/24 Lithopone Mill Worker Relationship Specialty Start Date End Date Chip Arreola MD [address] [place], [place] [id number] PCP - General Family Medicine 03/21/16 Inocente Romero MD [address] 137481 Shell Plater Cardiology 09/09/17 Antonio Cagle MD, PhD [address] [place] [address] Primary Staff Physician Cardiology 06/23/18 David Galo MD [address] [place] [id number] Consulting Infectious Diseases 03/08/20 Dayanna Lweis MD [address] [place] 1206295 Consulting Orthopedics 03/08/20 Chip Arreola MD [address] [place], [place] 68295691 Home Care Provider Family Medicine 03/08/20 Dayanna Lewis MD [address] [place] [address] Referring Orthopedics 03/09/20 Bridgett Guzman RN [address] [place], [place] 1567431 Black Top Spreader Machine Operator Post Acute Care 03/09/20 Emelina Pal APRN.DIAGRAM CLERK [address] [place], [place] 409961 Shell Plater Family Medicine 03/15/24 Belkys Mcintyre APRN.DIAGRAM CLERK [address] [place], [place] 451461 Shell Plater Family Medicine 03/15/24 Lithopone Mill Worker Relationship Specialty Start Date End Date Chip Arreola MD [address] [place], [place] 489511 PCP - General Family Medicine 03/21/16 Inocente Romero MD [address] 750301 Shell Plater Cardiology 09/09/17 Antonio Cagle MD, PhD [address] [place] [address] Primary Staff Physician Cardiology 06/23/18 David Galo MD [address] [place] [address] Consulting Infectious Diseases 03/08/20 Dayanna Lewis MD [address] [place] 1206295 Consulting Orthopedics 03/08/20 Chip Arreola MD [address] [place], [place] 87414691 Home Care Provider Family Medicine 03/08/20 Dayanna Lewis MD [address] [place], [place] 2234795 Referring Orthopedics 03/09/20 Bridgett Guzman, RN [address] [place], [place] 4341331 Black Top Spreader Machine Operator Post Acute Care 03/09/20 Emelina Pal APRN.DIAGRAM CLERK [address] [place], [place] 561611 Shell Plater Family Medicine 03/15/24 Belkys Mcintyre OPTOMETRIST.DIAGRAM CLERK [address] [place] [address] Shell Plater Family Medicine 03/15/24 Lithopone Mill Worker Relationship Specialty Start Date End Date Chip Arreola MD [address] [place], [place] 84989691 PCP - General Family Medicine 03/21/16 Inocente Romero MD [address] [address] Shell Plater Cardiology 09/09/17 Antonio Cagle MD, PhD [address] [place], [place] 7017895 Primary Staff Physician Cardiology 06/23/18 David Galo MD [address] [place] [address] Consulting Infectious Diseases 03/08/20 Dayanna Lewis MD [address] [place], [place] 5699895 Consulting Orthopedics 03/08/20 Chip Arreola MD [address] [place], [place] 289921 Home Care Provider Family Medicine 03/08/20 Dayanna Lewis MD [address] [place] [address] Referring Orthopedics 03/09/20 Bridgett Guzman RN [address] [place], [place] 1555831 Black Top Spreader Machine Operator Post Acute Care 03/09/20 Emelina Pal, ALICIA.DIAGRAM CLERK [address] [place], [place] 849061 Shell Plater Family Medicine 03/15/24 Belkys Mcintyre, OPTOMETRIST.DIAGRAM CLERK [address] [place] [address] Shell Plater Family Medicine 03/15/24 Lithopone Mill Worker Relationship Specialty Start Date End Date Chip Arreola MD [address] [place], [place] 285301 PCP - General Family Medicine 03/21/16 Inocente Romero MD [address] 272601 Shell Plater Cardiology 09/09/17 Antonio Cagle MD, PhD [address] [place] [address] Primary Staff Physician Cardiology 06/23/18 David Galo MD [address] [place] [address] Consulting Infectious Diseases 03/08/20 Dayanna Lewis MD [address] [place], [place] 5216995 Consulting Orthopedics 03/08/20 Chip Arreola MD [address] [place], [place] 65370691 Home Care Provider Family Medicine 03/08/20 Dayanna Lewis MD [address] [place] 1441795 Referring Orthopedics 03/09/20 Emelina Pal APRN.DIAGRAM CLERK [address] [place] [address] Shell Plater Family Medicine 03/15/24 Belkys Mcintyre, OPTOMETRIST.DIAGRAM CLERK [address] [place], [place] 936331 Shell Plater Family Medicine 03/15/24 Lithopone Mill Worker Relationship Specialty Start Date End Date Chip Arreola MD [address] [place], [place] [id number] PCP - General Family Medicine 03/21/16 Inocente Romero MD [address] [id number] Shell Plater Cardiology 09/09/17 Antonio Cagle MD, PhD [address] [place], [place] 0736195 Primary Staff Physician Cardiology 06/23/18 David Galo MD [address] [place] [address] Consulting Infectious Diseases 03/08/20 Dayanna Lewis MD [address] [place], [place] 6229595 Consulting Orthopedics 03/08/20 Chip Arreola MD [address] [place], [place] 60792691 Home Care Provider Family Medicine 03/08/20 Dayanna Lewis MD [address] [place], [place] 9711295 Referring Orthopedics 03/09/20 mEelina Pal APRN.DIAGRAM CLERK [address] [place], [place] 68523691 Shell Plater Family Medicine 03/15/24 Belkys Mcintyre, OPTOMETRIST.DIAGRAM CLERK [address] [place] [address] Shell Plater Family Medicine 03/15/24 Lithopone Mill Worker Relationship Specialty Start Date End Date Chip Arreola MD [address] [place], [place] 191801 PCP - General Family Medicine 03/21/16 Inocente Romero MD [address] [place], [place] 717941 Shell Plater Cardiology 09/09/17 Antonio Cagle MD, PhD [address] [place] [address] Primary Staff Physician Cardiology 06/23/18 David Galo MD [address] [place] [address] Consulting Infectious Diseases 03/08/20 Dayanna Lewis MD [address] [place], [place] 3024595 Consulting Orthopedics 03/08/20 Chip Arreola MD [address] [place], [place] 074001 Home Care Provider Family Medicine 03/08/20 Dayanna Lewis MD [address] [place] [address] Referring Orthopedics 03/09/20 Emelina Pal APRN.DIAGRAM CLERK [address] [place] [address] Shell Plater Family Medicine 03/15/24 Belkys Mcintyre OPTOMETRIST.DIAGRAM CLERK [address] [place], [place] 93949691 Shell Plater Family Medicine 03/15/24 Lithopone Mill Worker Relationship Specialty Start Date End Date Chip Arreola MD [address] [place], [place] [id number] PCP - General Family Medicine 03/21/16 Inocente Romero MD [address] 164231 Shell Plater Cardiology 09/09/17 Antonio Cagle MD, PhD [address] [place], [place] 4170895 Primary Staff Physician Cardiology 06/23/18 David Galo MD [address] [place], [place] 9206695 Consulting Infectious Diseases 03/08/20 Dayanna Lewis MD [address] [place], [place] 7175995 Consulting Orthopedics 03/08/20 Chip Arreola MD [address] [place], [place] 54788691 Home Care Provider Family Medicine 03/08/20 Dayanna Lewis MD [address] [place], [place] 5692795 Referring Orthopedics 03/09/20 Emelina Pal APRN.DIAGRAM CLERK [address] [place] [address] Shell Plater Family Medicine 03/15/24 Belkys Mcintyre APRN.DIAGRAM CLERK [address] [place] [address] [facility] 03/15/24 Lithopone Mill Worker Relationship Specialty Start Date End Date Chip Arreola MD [address] [place], [place] [id number] PCP - General Family Medicine 03/21/16 Inocente Romero MD [address] [id number] [facility] 09/09/17 Antonio Cagle MD, PhD [address] [place], [place] [id number] Primary Staff Physician Cardiology 06/23/18 David Galo MD [address] [place], [place] [id number] Consulting Infectious Diseases 03/08/20 Dayanna Lewis MD [address] [place] [address] Consulting Orthopedics 03/08/20 Chip Arreola MD [address] [place], [place] [address]691 Home Care Provider Family Medicine 03/08/20 Dayanna Lewis MD [address] [place] [address] Referring Orthopedics 03/09/20 Bridgett Guzman, RN [address] [place] [address] Black Top Spreader Machine Operator Post Acute Care 03/09/20 06/09/24 Emelina Pal, ALICIA.DIAGRAM CLERK [address] [place], [place] [address] [facility] 03/15/24 Belkys Mcintyre OPTOMETRIST.DIAGRAM CLERK [address] [place], [place] [address] [facility] 03/15/24 Lithopone Mill Worker Relationship Specialty Start Date End Date Chip Arreola MD [address] [place], [place] [id number] PCP - General Family Medicine 03/21/16 Inocente Romero MD [address] [id number] [facility] 09/09/17 Antonio Cagle MD, PhD [address] [place], [place] [id number] Primary Staff Physician Cardiology 06/23/18 David Galo MD [address] [place], [place] [phone] Consulting Infectious Diseases 03/08/20 Dayanna Lewis MD [address] [place] [address] Consulting Orthopedics 03/08/20 Chip Arreola MD [address] [place], [place] 258071 Home Care Provider Family Medicine 03/08/20 Dayanna Lewis MD [address] [place] [address] Referring Orthopedics 03/09/20 Emelina Pal APRN.DIAGRAM CLERK [address] [place], [place] [address] [facility] 03/15/24 Belkys Mcintyre APRN.[facility] [address] [place], [place] [address]871 [facility] 03/15/24 Lithopone Mill Worker Relationship Specialty Start Date End Date Chip Arreola MD [address] [place], [place] 594[address] PCP - General Family Medicine 03/21/16 Inocente Romero MD [address] [id number] [facility] Card[facility] 09/09/17 Antonio Cagle MD, PhD [address] [place], [place] [id number] Primary Staff Physician Cardiology 06/23/18 David Galo MD [address] [place], [place] [phone] Consulting Infectious Diseases 03/08/20 Dayanna Lewis MD [address] [place] [address] Consulting Orthopedics 03/08/20 Chip Arreola MD [address] [place], [place] 0[address]471 Home Care Provider Family Medicine 03/08/20 Dayanna Lewis MD [address] [place], [place] [phone] Referring Orthopedics 03/09/20 Emelina Pal, OPTOMETRIST.DIAGRAM CLERK [address] [place], [place] 3[address] [facility] 03/15/24 Belkys Mcintyre APRN.DIAGRAM CLERK [address] [place], [place] 167131 [facility] 03/15/24 Lithopone Mill Worker Relationship Specialty Start Date End Date Chip Arreola MD [address] [place], [place] [phone] PCP - General Family Medicine 03/21/16 Inocente Romero MD [address] [phone] [facility] Card[facility] 09/09/17 Antonio Cagle MD, PhD [address] [place] [address] Primary Staff Physician Cardiology 06/23/18 David Galo MD [address] [place] [address] Consulting Infectious Diseases 03/08/20 Dayanna Lewis MD [address] [place] [address] Consulting Orthopedics 03/08/20 Chip Arreola MD [address] [place], [place] 544381 Home Care Provider Family Medicine 03/08/20 Dayanna Lewis MD [address] [place] [address] Referring Orthopedics 03/09/20 Emelina Pal APRN.DIAGRAM CLERK [address] [place], [place] 179321 [facility] 03/15/24 Belkys Mcintyre APRN.DIAGRAM CLERK [address] [place], [place] 412091 [employer] 03/15/24 Lithopone Mill Worker Relationship Specialty Start Date End Date Chip Arreola MD [address] [place], [place] [id number] PCP - General Family Medicine 03/21/16 Inocente Romero MD [address] [id number] [facility] 09/09/17 Antonio Cagle MD, PhD [address] [place] [address] Primary Staff Physician Cardiology 06/23/18 David Galo MD [address] [place] [address] Consulting Infectious Diseases 03/08/20 Dayanna Lewis MD [address] [place] [address] Consulting Orthopedics 03/08/20 Chip Arreola MD [address] [place], [place] [id number] Home Care Provider Family Medicine 03/08/20 Dayanna Lewis MD [address] [place] [address] Referring Orthopedics 03/09/20 Emelina Pal, OPTOMETRIST.DIAGRAM CLERK [address] [place], [place] [address] [facility] 03/15/24 Belkys Mcintyre, OPTOMETRIST.DIAGRAM CLERK [address] [place], [place] [address] [employer] [facility] 03/15/24 Team Status: Active Member Role/Relationship Status [...] R29.6 (ICD-10-CM) - Falls frequently Belkys Mcintyre, OPTOMETRIST.DIAGRAM CLERK [address] [place] [address] Phone: tel: fax: [facility] [address] [place] [address] Phone: tel: fax: Referral ID Status Reason Start Date Expiration Date V isits Requested Visits Authorized [id number] Authorized 04/07/2024 04/06/2025 99 99 Reason Comments Physical Therapy Specialty Diagnoses / Procedures Referred By Contac t Referred To Contact PHYSICAL THERAPY Diagnoses R29.6 (ICD-10-CM) - Falls frequently Procedures R29.6 (ICD-10-CM) - Falls frequently Belkys Mcintyre OPTOMETRIST.DIAGRAM CLERK [address] [place] [address] [facility] [address] [place] [address] Reason Comments Wrist/forearm Injury R wrist pain and br uising after slipping on stairs x1 week Reason Comments Established Patient Fracture Reason Comments REF: Luana cooney 08-22-2021 New Fracture Reason Onset Date Comments Refill Request 10/16/2021 Reason Comments 6 Month Exam Reason Comments Results Reason Comments Follow Up Discuss labs from [facility] Reason Comments Established Patient 15 wks 6 [...] MDM 60-74 MINUTES Jaleel Cerda MD [address] [place] [address] Referral ID Status Reason Start Date Expiration Date V isits Requested Visits Authorized [id number] Closed PCP Requested Referral 08/22/2021 08/22/2022 1 [...] VIEWS Dominga Reese PA-C [address] [place] [address] Xr Imaging Referral ID Status Reason Start Date Expiration Date V isits Requested Visits Authorized [id number] Closed Auto-Generate d Referral 05/14/2022 06/13/2023 1 [...] EVALUATION HIGH COMPLEX 45 MINS Belkys Mcintyre, OPTOMETRIST.DIAGRAM CLERK [address] [place] [address] [facility] [address] [place] [address] Referral ID Status Reason Start Date Expiration Date Visits Requested Visits Authorized [id number] Authorized Auto-Generat ed Referral 04/07/2023 04/06/2024 99 [...] BE BASED ON THE PRIMARY CLINICAL RECORDS. [facility] [employer] [facility]. provides no warranty or guarantee of the accuracy or completeness of information in this document.
--- NOTE | 2024-11-15 09:46 | CL.D_ITS ---
Patient Name: JOEY CARMICHAEL Study Date: 10/12/2024 Performing: Inocente Romero MD Ht: 61 inches 154.94 cm : 1945 Wt: 206.2 lbs 93.4 kg Age: 79 Gender: female BSA: 1.91 PROCEDURE(S) PERFORMED [id number]-([id number])LHC/COR/LV CLINICAL PROFILE AND INDICATIONS Indications: Suspected CAD Heart Failure: None Stress/Imaging Stress/Image Study Performed: No CAD Presentations: Non-STEMI. Symptom onset Date/Time: 10/11/24 Time Not Available CONCLUSIONS Mild disease noted in the proximal mid left anterior descending artery with mildly reduced flow. Normal flow noted in the circumflex and the right coronary artery. Reduced ejection fraction with apical hypokinesis severe. RECOMMENDATIONS Medical therapy DESCRIPTION OF PROCEDURE The patient arrived to the procedure lab. The risks and benefits of the procedure as well as a full description of our services here and current unavailability of surgical backup were fully explained to the patient and/or their significant other prior to the catheterization. The Timeout was completed, verifying the correct patient and procedure. The patient's procedural site was prepped and draped in the usual fashion. Local anesthetic was given subcutaneously to right radial region with Lidocaine 2%. Using a modified Seldinger technique, arterial access was obtained via the right radial artery, a 6Fr sheath was inserted. Right Coronary Artery selective angiography was then performed in multiple views using a 5 Fr. 4.0 Humbird catheter. Left Coronary Artery selective angiography was performed in multiple views using a 5 Fr. 4.0 Humbird catheter. Left Coronary Artery selective angiography was performed in multiple views using a 5 Fr. JL3.5 catheter. Left Ventriculography was performed in GUO projection using a 5 Fr. Pigtail catheter. LV to AO pullback pressures were then recorded.The arterial sheath was pulled and a TR Band was applied for hemostasis 10 ml of air CORONARY ANGIOGRAPHY DOMINANCE: Right Dominant LEFT HEART ASSESSMENT Left Ventricular Ejection Fraction: by LV Gram 45 % Apical Hypokinesis - Severe Consistent with Takotsubo cardiomyopathy. LEFT MAIN: Angiographically normal LEFT ANTERIOR DESCENDING ARTERY: Eccentric plaque noted with slow flow present in the mid left anterior descending artery with good distal flow and no high-grade stenosis. CIRCUMFLEX ARTERY: Mild luminal irregularities less than 30% RIGHT CORONARY ARTERY: Mild luminal irregularities less than 30% COMPLICATIONS No Complications PROCEDURE MEDICATIONS Versed 1 mg IV Fentanyl 25 mcg IV Versed 1 mg IV Oxygen: 2 L/min via nasal cannula Baby Aspirin (81mg) 1 Tabs PO @ 10/12/2024 07:37:47 Heparin given IA 10/12/2024 07:52:08 Verapamil 2.5mg, Ntg 100mcgs, 3000 units of Heparin given IA 10/12/2024 07:52:08 SUMMARY OF HEMODYNAMIC DATA Time AIR REST ECG 07:37:04 AO 110/75 (91) SA 08:25:55 AO 109/72 (91) 08:35:20 LV 119/0, 9 08:41:40 LV 115/0, 3 08:41:48 LV 110/6, 21 08:42:20 LV 111/0, 4 08:42:29 LVp 106/-2, 3 08:42:38 AOp 106/61 (81) 08:42:45 Signed By Inocente Romero MD On 10/15/2024 13:32:10 Signed By Inocente Romero MD On 10/12/2024 09:10:57 Inocente Romero MD
== END 2024-10-12 17:17 | disposition home or self-care (01) | DRG 287 ==
LOC: ED 08:50 → ICU 09:44 → PCU 12:06
PROVIDERS: Admitting Provider Internal Medicine Interventional Cardiology; Emergency Provider Emergency Medicine; PCP Family Medicine; Referring Provider Internal Medicine Interventional Cardiology
DX: I48.0 Paroxysmal atrial fibrillation (principal); Z68.41 Body mass index [BMI] 40.0-44.9, adult; E11.9 Type 2 diabetes mellitus without complications; I10 Essential (primary) hypertension; I25.10 Atherosclerotic heart disease of native coronary artery without angina pectoris; G47.33 Obstructive sleep apnea (adult) (pediatric); I25.2 Old myocardial infarction; R04.0 Epistaxis; E66.813 Obesity, class 3; Z85.3 Personal history of malignant neoplasm of breast; Z90.12 Acquired absence of left breast and nipple; Z79.01 Long term (current) use of anticoagulants; Z79.899 Other long term (current) drug therapy
CPT/HCPCS: 36415; 71046; 80048; 80061; 83735; 83880; 84443; 84484; 85025; 85610; 85730; 93005; 93306; 93458; 94660; 94762; 99152; 99153; 99285; Q9957; Q9967; A4216; C1769; C1894; C8929

== ENCOUNTER 2025-03-31 07:46 | Emergency (ER) | payer MEDICARE, OTHER, SELFPAY ==
[2018-05-05 09:09] VITALS: BMI 41.5
[2025-03-31 07:47] VITALS: BP 145/74; PULSE 88; RESP 16; TEMP 36.6; O2SAT 97; BMI 38.8
--- NOTE | 2025-03-31 07:49 | EDS_ITS ---
HPI History of Present Illness Chief Complaint: Nosebleed Narrative Narrative: Patient is an 79-year-old female presenting to the emergency department for epistaxis. Patient has a past medical history of A-fib on Xarelto, epistaxis, obesity, tricuspid valve insufficiency and pulmonary arterial hypertension. Patient states that on Friday or Friday of last week she fell out of her car after getting the mail when she reached for the door handle and underestimated how far it was away from her causing her to fall out of the car onto her left side of her face. She denies any LOC. She states her last dose of Xarelto was last evening. She denies any neck or back pain. Denies any headaches. States that about an hour prior to arrival she started having a slow trickling of epistaxis. She states the last nosebleed she had was a few months ago. She denies any trauma to the nose today. Denies any recent viral illness. Denies any hematemesis or hematochezia. Denies any bruising or petechiae on the skin. When asked how much blood she has lost she is unable to estimate. States she has been using one washcloth that she has with her to blot her nosebleed. Denies any lightheadedness, dizziness, chest pain, SOB, palpitations, weakness or fatigue. [facility] Medical History RONALDO (obstructive sleep apnea) Non-rheumatic tricuspid valve insufficiency Paroxysmal atrial fibrillation Acute on chronic diastolic (congestive) heart failure Secondary pulmonary arterial hypertension Essential (primary) hypertension Persistent atrial fibrillation RONALDO (obstructive sleep apnea) Obesity, Class III, BMI 40-49.9 (morbid obesity) Malignant neoplasm of left breast, estrogen receptor positive Type 2 diabetes mellitus Osteoarthritis Migraines Knee pain, chronic Inferior AL Hyperglycemia Epistaxis Home Medications ?Medication ?Instructions ?Recorded ?Last Taken ?Type multivitamin with folic acid 400 1 tab PO DAILY SUPPLE MENT 08/18/17 11/30/18 History mcg tablet omega-3 fatty acids 1,000 mg 2,000 mg PO DAILY supplem ent 09/04/18 11/30/18 History capsule valsartan 160 mg tablet 160 mg PO DAILY heart 11/30/18 History furosemide 40 mg tablet 40 mg PO DAILY #60 tabs 06/2 8/19 Unknown Rx rivaroxaban 20 mg tablet 20 mg PO DAILY 11/03/18 08/2 09/23 History Held on 10/12/24. Instructions: Resume on 10/13/24. potassium 99 mg tablet 99 mg PO DAILY supplement Unknown History thiamine HCl (vitamin B1) 250 mg 250 mg PO DAILY suppl ement 10/11/24 Unknown History tablet vit C 250 mg-vit E 90 mg-zinc 40 1 tab PO BID eye иван min 10/11/24 Unknown History mg-copper 1 at-[id number]-ljeltr capsule ([facility] AREDS-2) metoprolol tartrate 50 mg tablet 50 mg PO BID #60 tabs 10/12/24 Unknown Rx Allergy/AdvReac Type Severity Reaction Status Date / Time adhesive Allergy Itching, Verified 03/31/25 07:52 rash, redness allantoin (From Carrasyn Allergy Rash, skin Verified 03/31/25 07:52 Hydrogel Wound Dress) peeling azithromycin Allergy Angioedema Verified 03/31/25 07:52 vitamin A (From Aquasol A) Allergy Rash Verified 03/31/25 07:52 lisinopril AdvReac Other Verified 03/31/25 07:52 Family History Mother Breast cancer Hypertension Grandmother Breast cancer Sister Breast cancer Uterine cancer Sister Breast cancer Aunt Breast cancer Daughter Uterine cancer Sister Breast cancer Sister Kidney disease Sister Diabetes Sister Macular degeneration Brother Colon cancer Diabetes Hypertension Brother , 51yr No problems noted. Surgical History H/O shoulder surgery History of cardioversion (11/30/18) History of tonsillectomy History of tubal ligation History of hysterectomy History of appendectomy History of bilateral knee replacement left axillary lymph node biopsy History of lumpectomy of left breast History of breast biopsy Social History Smoking Status: Never smoker second hand exposure: No alcohol intake: never substance use type: does not use ROS ROS ED ROS Narrative see HPI EXAM Physical Exam Narrative Exam Narrative: Vital signs: Reviewed General: Alert and orientedx3. No acute distress. Nontoxic. HEENT: Head and scalp is normocephalic and atraumatic. There is extensive healing black/yellow ecchymosis to the left sided forehead, periorbitally and midface. Sinuses nontender to palpation, pupils 2 mm equal round and reactive. EOMI. No conjunctival injection or hemorrhage. No conjunctival pallor. Nares are patent. No bony nasal tenderness to palpation. No septal hematoma. There is slow oozing from the left nares. No pulsatile bleeding. No source of bleeding seen on nares exam. Right nares is clear. Oropharynx and throat exams normal. No blood in posterior oropharynx. Neck: Supple without lymphadenopathy nontender. No midline cervical spinal tenderness to palpation. No step-offs or deformities. Cardiovascular: Regular rate and rhythm, no murmurs. No rubs or gallops. Normal S1 and S2 Respiratory: Clear to auscultation bilaterally. No wheezes, rales, rhonchi Chest: Chest wall is atraumatic and nontender to palpation. There is no crepitus, erythema or ecchymosis. Abdominal: Soft and nontender. Normal bowel sounds. No guarding or rebound. Nonsurgical abdomen Extremities: Hips are stable and nontender to palpation. Extremities are atraumatic and nontender to palpation with normal active range of motion. No tenderness. No bruising. Normal range of motion. Normal sensation. Back: No midline thoracic or lumbar spinal tenderness to palpation. No step- offs or deformities. Skin: No rash or redness. No petechiae or abnormal bruising on the skin noted. No skin pallor noted. Neurological: Cranial nerves II through XII are grossly intact. Normal strength and sensation. Normal cerebellar function The rest of the physical exam is unremarkable Const Vital Signs: 03/31/25 07:47 03/31/25 08:30 Temperature 97.9 F Temperature Source Oral Pulse Rate 88 Respiratory Rate 16 Respiratory Effort Normal Respiratory Depth Normal Respiratory Pattern Normal Blood Pressure 145/74 H Blood Pressure Mean 97 Pulse Ox 97 Oxygen Delivery Method Room Air Room Air MDM MDM MDM Narrative Medical decision making narrative: Patient is a 79-year-old female presenting to the emergency department with epistaxis for 1 hour. Patient was seen and examined. Vitals are stable. No tachycardia on exam. No hypoxia. BP stable at 145/74. She is resting in bed comfortably no acute distress. She is nontoxic-appearing. Given the patient's extensive healing ecchymosis to the left side of her face, recent fall and now episode of epistaxis, CT of the facial bones will be obtained to evaluate for any facial bone fracture causing this. Will also obtain a CT of the brain and cervical spine given her fall, head trauma and age while on Xarelto. Afrin was applied in the left nares and nose clip was placed on her nose. Will reevaluate in 15 minutes. I do not think she requires lab work as this nose bleed has only been 1 hour and she is asymptomatic and has no concerning physical exam findings. She ambulated without difficulty to and from the bathroom, no lightheadedness or dizziness. Reevaluated at 8:45 AM, nose clip removed and repeat naris exam with no active bleeding noted. No blood noted in the oropharynx. Patient feels that it has stopped as well. Imaging was reviewed by myself there is no evidence of any cranial bleed. No facial fractures noted on my review of the CT facial bone. Radiology read in agreement with negative CT brain, cervical spine and facial bones. Patient was updated on the negative imaging findings. She was given a nose clip for home to apply if she has a repeat nosebleed. Patient discharged from the Emergency Department. I do not feel that the patient's evaluation reveals any acute reason for admission at this time. I instructed them to either follow-up with their primary care physician or promptly return to the Emergency Department for reevaluation should symptoms worsen or new symptoms develop. I explained what symptoms would indicate the need to return to the emergency department. Shared decision making was used. The patient voiced understanding of the treatment plan and is agreeable with it. Clinical impression: Epistaxis History & Record Review Discussion w/independent historian: Patient Additional record(s) reviewed:: Prior ED visit Radiography Diagnostic Testing: Clinical Impression(s) from Imaging Studies Brain CT 03/31/25 08:20 IMPRESSION: 1. No evidence of acute intracranial hemorrhage, hydrocephalus, or herniation. 2. Degenerative changes of the cervical spine without evidence of facial or cervical spine fracture as annotated above. Reading Location: [facility] Cervical Spine CT 03/31/25 08:20 IMPRESSION: 1. No evidence of acute intracranial hemorrhage, hydrocephalus, or herniation. 2. Degenerative changes of the cervical spine without evidence of facial or cervical spine fracture as annotated above. Reading Location: [facility] Facial/Sinus 03/31/25 08:20 IMPRESSION: 1. No evidence of acute intracranial hemorrhage, hydrocephalus, or herniation. 2. Degenerative changes of the cervical spine without evidence of facial or cervical spine fracture as annotated above. Reading Location: [facility] Discharge Plan Triage Chief Complaint: Nosebleed ED Provider: Jyotsna Proctor Dx/Rx/DC Orders Clinical Impression: Epistaxis, Fall, Traumatic ecchymosis of face Instructions: ED Epistaxis (Adult), ED Fall Prevention Prescriptions: No Action furosemide 40 mg tablet 40 mg PO DAILY Qty: 60 0RF multivitamin with folic acid 1 TABLET tablet 1 tab PO DAILY rivaroxaban 20 mg tablet 20 mg PO DAILY omega-3 fatty acids 1,000 MG capsule 2,000 mg PO DAILY valsartan 160 MG tablet 160 mg PO DAILY potassium 99 mg tablet 99 mg PO DAILY [facility] AREDS-2 250-90-40-1 mg capsule 1 tab PO BID thiamine HCl (vitamin B1) 250 mg tablet 250 mg PO DAILY metoprolol tartrate 50 mg Tablet 50 mg PO BID Qty: 60 0RF Primary Care Provider: Chip Santos Referrals: Chip Santos MD [Primary Care Provider, Medical] - As soon as possible Activity Restrictions/Additional Instructions: If your nose starts to bleed again, try applying the nose clip for 15-20 minutes. If this does not stop it, return back to the ED. Your evaluation in the Emergency Department did not reveal any acute reason for admission. However, I want to emphasize that you may be early in the course of a disease process or illness even if it is not present. For this reason you should follow-up within 24 hours for reevaluation with either your primary care physician or if necessary back here in the Emergency Department. You should return to the Emergency Department immediately if your symptoms worsen or new symptoms develop. Print Language: Hebrew Disposition Disposition: Home, Self Care
[2025-03-31] MEDS: Oxymetazoline 0.05% 1 SPRAY SPRAY.BTL NASAL (07:56)
--- NOTE | 2025-03-31 08:20 | CT_ITS ---
PROCEDURE: BRAIN/HEAD WITHOUT CONTRAST; SPINE CERVICAL WITHOUT CONTRAS; SINUS/FACIAL BONE 03/31/2025 REASON FOR EXAM: FALL, ON XARELTO; FALL; FALL ON XARELTO LAST WEEK, EPISTAXIS Headache, face pain, neck pain TECHNIQUE: Procedure Code: CTBR; CTSPC; CTSI Modality: CT Procedure: BRAIN/HEAD WITHOUT CONTRAST; SPINE CERVICAL WITHOUT CONTRAS; SINUS/FACIAL BONE Coronal and Sagittal reconstruction series were provided. One or more dose reduction techniques were used (e.g., Automated exposure control, adjustment of the mA and/or kV according to patient size, use of iterative reconstruction technique. RADIATION DOSE SUMMARY: CTDlvol: 44.99+ 29.38+ 25.73 mGy DLP: 1946 mGycm COMPARISON: None available. FINDINGS: Brain: Normal cornoel-white matter differentiation is preserved throughout without hydrocephalus, herniation, or acute hemorrhage. No midline shift, mass effect, or sulcal effacement. CSF Spaces: The CSF containing spaces are patent and symmetric as appropriate. The cerebellum and brainstem are normal. No globe or orbital abnormality. CT face: Mastoid air cells are clear. Opacity in the right maxillary sinus. Bones: No evidence of facial fracture. CT C-spine: Preserved cervical lordotic curvature without acute fracture or spondylolisthesis. Multilevel degenerative changes with disc space narrowing at C3-4, C5-6, C6-7, and C7-T1 with circumferential endplate hypertrophy. Moderate neural foraminal narrowing is present at the C5-6 level bilaterally. Lung apices are clear.. Paravertebral soft tissues are within normal limits. CT/Sinus/Facial Bone IMPRESSION: 1. No evidence of acute intracranial hemorrhage, hydrocephalus, or herniation. 2. Degenerative changes of the cervical spine without evidence of facial or ce rvical spine fracture as annotated above. Reading Location: [id number]
--- NOTE | 2025-03-31 08:20 | CT_ITS ---
PROCEDURE: BRAIN/HEAD WITHOUT CONTRAST; SPINE CERVICAL WITHOUT CONTRAS; SINUS/FACIAL BONE 03/31/2025 REASON FOR EXAM: FALL, ON XARELTO; FALL; FALL ON XARELTO LAST WEEK, EPISTAXIS Headache, face pain, neck pain TECHNIQUE: Procedure Code: CTBR; CTSPC; CTSI Modality: CT Procedure: BRAIN/HEAD WITHOUT CONTRAST; SPINE CERVICAL WITHOUT CONTRAS; SINUS/FACIAL BONE Coronal and Sagittal reconstruction series were provided. One or more dose reduction techniques were used (e.g., Automated exposure control, adjustment of the mA and/or kV according to patient size, use of iterative reconstruction technique. RADIATION DOSE SUMMARY: CTDlvol: 44.99+ 29.38+ 25.73 mGy DLP: 1946 mGycm COMPARISON: None available. FINDINGS: Brain: Normal coronel-white matter differentiation is preserved throughout without hydrocephalus, herniation, or acute hemorrhage. No midline shift, mass effect, or sulcal effacement. CSF Spaces: The CSF containing spaces are patent and symmetric as appropriate. The cerebellum and brainstem are normal. No globe or orbital abnormality. CT face: Mastoid air cells are clear. Opacity in the right maxillary sinus. Bones: No evidence of facial fracture. CT C-spine: Preserved cervical lordotic curvature without acute fracture or spondylolisthesis. Multilevel degenerative changes with disc space narrowing at C3-4, C5-6, C6-7, and C7-T1 with circumferential endplate hypertrophy. Moderate neural foraminal narrowing is present at the C5-6 level bilaterally. Lung apices are clear.. Paravertebral soft tissues are within normal limits. CT/Spine Cervical without Contras IMPRESSION: 1. No evidence of acute intracranial hemorrhage, hydrocephalus, or herniation. 2. Degenerative changes of the cervical spine without evidence of facial or ce rvical spine fracture as annotated above. Reading Location: [id number]
--- OUTSIDE RECORDS SUMMARY | 2025-03-31 08:39 | XMS RPT_ITS | CCD ---
Author Organization [facility] Care Team Providers Care Publicity Manager Name Role Phone Chip Arreola Unavailable Chip Arreola MD Primary Care Provider Nick Inocente S Unavailable Tsering SINHA, PhD, Antonio Cardenas Unavailable David Galo MD Unavailable Dayanna Lewis MD Unavailable Chip Arreola MD Unavailable Dayanna Lewis MD Unavailable Bridgett Guzman RN Unavailable Chip Arreola MD Primary Care Provider Nick Inocente S Unavailable Tsering SINHA, PhD, Antonio Cardenas Unavailable David Galo MD Unavailable Dayanna Lewis MD Unavailable Chip Arreola MD Unavailable Dayanna Lewis MD Unavailable Bridgett Guzman RN Unavailable Nick, Roscoe S Unavailable Chip Arreola MD Unavailable Bridgett Guzman RN Unavailable Chip Arreola MD Primary Care Provider Chip Arreola MD Unavailable Chip Arreola MD Primary Care Provider Nick, Inocente S Unavailable Tsering SINHA, PhD, Antonio Cardenas Unavailable David Galo MD Unavailable Joshua SINHA, Dayanna Davis Unavailable Chip Arreola MD Unavailable Joshua SINHA, Dayanna Davis Unavailable RNBridgett Unavailable GINGER FLORES Attending Unavailable NO, PHYSICIAN Primary Care Unavailable No, Physician Primary Care Provider Unavailabl e Nick SINHA, Inocente S Unavailable Tsering SINHA, PhD, Antonio Cardenas Unavailable Bridgett Guzman RN Unavailable Chip Arreola MD Primary Care Provider Haagen BOOK EDITOR.LAUNDRY MACHINE MECHANIC, Emelina Unavailable Suppan BOOK EDITOR.LAUNDRY MACHINE MECHANIC, Belkys A Unavailable Suppan BOOK EDITOR.LAUNDRY MACHINE MECHANIC, Belkys A Unavailable Suppan BOOK EDITOR.LAUNDRY MACHINE MECHANIC, Belkys A Unavailable Bridgett Guzman RN Unavailable Dr. Chip Arreola MD Primary Care Provider Viktoria SINHA, Dr. Hilton Admit Provider Dr. Lida Blum MD Attending Provider Dr. Lida Blum MD Referring Provider Dr. Lida Blum MD Other Provider Dr. Ruiz Reaves DO Emergency Provider Dr. Dayanna Miranda DO Attending Provider Dr. Chip Arreola MD Primary Care Provider Dr. Inocente Romero MD Attending Provider Dr. Lida Blum MD Admit Provider Viktoria SINHA, Dr. Hilton Referring Provider Viktoria SINHA, Dr. Hilton Other Provider Dr. Ruiz Reaves DO Emergency Provider Dr. Dayanna Miranda DO Attending Provider Dr. Lida Blum MD Attending Provider Dr. Dayanna Miranda DO Other Provider Inocente Romero Attending Unavailable Elba, Chip Primary Care Unavailable Belal, Farouk Consulting Unavailable Elba, Chip Primary Care Unavailable Dayanna Miranda Attending Unavailable Belal, Farouk Referring Unavailable Belal, Farouk Admitting Unavailable JopperiDayanna Consulting Unavailable [place], Chip Primary Care Unavailable Belal, Farouk Consulting Unavailable Dayanna Miranda Attending Unavailable Belal, Farouk Referring Unavailable Belal, Farouk Admitting Unavailable Belal, Farouk Attending Unavailable Inocente Romero Attending Unavailable Belal, Farouk Admitting Unavailable [place], Chip Primary Care Unavailable KathippDayanna rosales Attending Unavailable Belal, Farouk Consulting Unavailable Belal, Farouk Referring Unavailable [place], Chip Primary Care Unavailable [place], Chip Referring Unavailable Elmira Garnica NP Attending Unavailable ELBA, CHIP J Primary Care Unavailable O'OLEGBLOSSOM Attending Unavailable SUPPAN, BELKYS A Referring Unavailable O'OLEGBLOSSOM Attending Unavailable ELBA, CHIP J Primary Care Unavailable SUPPAN, BELKYS A Referring Unavailable O'OLEGBLOSSOM Attending Unavailable ELBA, CHIP J Primary Care Unavailable SUPPAN, BELKYS A Referring Unavailable ELBA, CHIP J Primary Care Unavailable SUPPAN, BELKYS A Referring Unavailable ELBA, CHIP J Primary Care Unavailable MIGUELINA, BELKYS A Referring Unavailable ELBA, CHIP J Primary Care Unavailable ANUJ NAVARRO Referring Unavailable SUPPCHAN, BELKYS A Referring Unavailable ELBA, CHIP J Primary Care Unavailable ANUJ NAVARRO Referring Unavailable ANUJ NAVARRO Attending Unavailable ELBA, CHIP J Primary Care Unavailable YOANDY DEMPSEY Attending Unavailabl e SUPPAN, BELKYS A Referring Unavailable ELBA, CHIP J Primary Care Unavailable ELBA, CHIP J Primary Care Unavailable DAYANNA LEWIS Referring Unavailable ELBA, CHIP J Primary Care Unavailable ALFREDO PALMER Referring Unavailable SUPPCHAN, BELKYS A Attending Unavailable ELBA, CHIP J Primary Care Unavailable ELBA, CHIP J Primary Care Unavailable SUPPAN, BELKYS A Referring Unavailable ELBA, CHIP J Primary Care Unavailable SUPPAN, BELKYS A Attending Unavailable ELBA, CHIP J Primary Care Unavailable SUPPAN, BELKYS A Referring Unavailable ELBA, CHIP J Primary Care Unavailable ANUJ NAVARRO Referring Unavailable ANUJ NAVARRO Attending Unavailable ELBA, CHIP J Primary Care Unavailable SUPPAN, BELKYS A Attending Unavailable ELBA, CHIP J Primary Care Unavailable SUPPCHAN, BELKYS A Attending Unavailable ELBA, CHIP J Primary Care Unavailable DAYANNA LEWIS Attending Unavailable SELF Referring Unavailable ELBA, CHIP J Primary Care Unavailable TYRONEFABIENNE Attending Unavailable O'OLEGBLOSSOM Attending Unavailable SUPPAN, BELKYS A Referring Unavailable ELBA, CHIP J Primary Care Unavailable O'OLEGBLOSSOM CARLSON Attending Unavailable ELBA, CHIP J Primary Care Unavailable SUPPAN, BELKYS A Referring Unavailable ELBA, CHIP J Primary Care Unavailable FABIENNE HANSEN Referring Unavailable ELBA, CHIP J Primary Care Unavailable ALFREDO PALMER Attending Unavailable SUPPAN, BELKYS A Attending Unavailable ELBA, CHIP J Primary Care Unavailable SELF Referring Unavailable SUPPAN, BELKYS A Referring Unavailable ELBA, CHIP J Primary Care Unavailable DOMINGA REESE Attending Unavailable ELBA, CHIP J Primary Care Unavailable ELBA, CHIP J Primary Care Unavailable O'BLOSSOM DEJESUS Attending Unavailable SUPPAN, BELKYS A Referring Unavailable PENNIE HIGUERA Attending Unavailable ELBA, CHIP J Primary Care Unavailable ELBA, CHIP J Primary Care Unavailable YOANDY DEMPSEY Referring Unavailabl e O'BLOSSOM DEJESUS Attending Unavailable ELBA, CHIP J Primary Care Unavailable SUPPAN, BELKYS A Referring Unavailable O'BLOSSOM DEJESUS Attending Unavailable ELBA, CHIP J Primary Care Unavailable SUPPAN, BELKYS A Referring Unavailable ELBA, CHIP J Primary Care Unavailable SUPPAN, BELKYS A Referring Unavailable Allergies Allergy Classification Reported Allergen(s) Allergy Type Date of Onset Reaction(s) Facility (20 sources) Azithromycin; 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: [AZITHROMYCIN] Drug Allergy 2 Swelling, Rash [facility] Work Phone: (2 sources) *ADHESIVE TAPE Propensity to adverse reactions 8 [facility] Work Phone: (20 sources) anastrozole; 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: [ANASTROZOLE] Drug Allergy 9 Other: See Comments, Headache [facility] (20 sources) exemestane; 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: [EXEMESTANE] Drug Allergy 9 Other: See Comments [facility] (20 sources) Lisinopril; 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: [LISINOPRIL] Drug Allergy 0 Cough [facility] (20 sources) Adhesive Tape-Silicones; 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: [ADHESIVE TAPE-SILICONES] Propensity to adverse reactions to drug 0 Rash [facility] (20 sources) Silver-Hydrocoll oid Dressing; 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: [SILVER-HYDROCOL LOID DRESSING] Drug Intolerance 4 Itching [facility] (4 sources) Adhesive agent; 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: [adhesive] Allergy to substance 2 Itching, rash, redness [facility] (3 sources) Allantoin Drug Allergy 2 Rash, skin peeling [facility] (3 sources) Vitamin A Drug Allergy 2 Rash [facility] (1 source) Allantoin Drug Allergy 5 [facility] (1 source) Azithromycin Drug Allergy 5 [facility] (1 source) Lisinopril Drug Allergy 5 [facility] (1 source) Vitamin A Drug Allergy 5 [facility] Medications Current Medications Medication Drug Class(es) [...] Comment on above: Take 1 tablet by [facility] twice daily for 10 days. [...] Take 1 tablet by gabrielle once daily. lisinopril 5 mg oral tablet (1 source) Angiotensin Converting Enzyme Inhibitor Start: lisinopril 5 MG Tab tablet Take 5 mg by mouth. 10/09/2017 Active melatonin 1 mg oral tablet (20 sources) End: take 2 tablets by mouth once daily at bedtime melatonin 1 mg tablet Take 2 mg by mouth daily at bedtime. 05/27/2024 Discontinued (Discontinued by Patient) 24 hr metoprolol succinate 50 mg extended release oral tablet (20 sources) beta-Adrenergic Jarod Start: End: metoprolol succinate ER (TOPROL XL) 50 mg 24 hr tablet Indications: Atrial fibrillation, unspecified type (HCC) , NSTEMI (non-ST elevated myocardial infarction) (HCC) Take 1/2 tablet in the morning, 1 whole tablet in the evening 135 tablet 3 10/19/2024 10/19/2025 Active Start: 10-12-2024 End: 10-19-2024 metoprolol tartrate, short a cting, (LOPRESSOR) 50 mg tablet Indications: acute coronary syndrome , acute myocardial infarction Take 50 mg by mouth two times a day. Take 25 mg in morning and 50 mg at bedtime. 10/12/2024 10/19/2024 Discontinued (Discontinued by Patient) Start: 03-25-2022 End: 10-15-2024 take 1 tablet by mouth once daily metoprolol succinate ER (TOPROL XL) 50 mg 24 hr tablet Indications: Persistent atrial fibrillation (HCC) Take 1 tablet by mouth once daily. 90 tablet 3 04/05/2024 10/15/2024 Discontinued (Discontinued by another Health Care Provider) Start: 03-25-2022 End: 10-12-2024 take 1 tablet by mouth once daily Metoprolol Tartrate 50 mg tablet Discontinued 50 mg PO DAILY March 25, 2022 2:49pm October 12, 2024 4:20pm heart rate Start: 03-25-2022 End: 10-12-2024 Metoprolol Succinate 25 mg t ablet extended release 24 hr Discontinued 50 mg PO DAILY March 25, 2022 1:00am October 12, 2024 4:20pm heart rate Start: 05-21-2021 End: 03-25-2022 take 1 tablet [...] mg by mouth twice daily Metoprolol Tartrate Discontinued 50 MG PO TWICE A DAY 60 [...] 1 tablet by gabrielle th once daily. kncfkbmz-qtf-utqhalk sulfate 4.5 mg iron Tab (1 source) Start: 10-04-19 10 take 1 tablet by mouth once nyafkgow-ryb-byyzgee sulfate 4.5 mg iron Tab Take 1 (one) tablet by mouth . 0 10/03/2009 Active Multivitamin With Folic Acid (1 source) Start: 08-19-19 18 take 1 tablet by mouth once daily Multivitamin With Folic Acid Active 1 TABLET PO DAILY August 17, 2017 11:00pm Multivitamin With Folic Acid 1 TABLET tablet (2 sources) Start: 08-19-19 18 take 1 tablet by [...] tablet d aily. omega-3 acid ethyl esters (skilled nursing) 1000 mg oral capsule (1 source) Start: 07-01-19 12 [place]-3 Fatty Acids (FISH OIL) 1000 MG Cap Take by mouth. 07/01/2011 Active [place]-3 Fatty Acids (1 source) Start: 09-05-19 19 take 2000 mg by mouth once daily [place]-3 Fatty Acids Active 2000 MG PO DAILY September 03, 2018 11:00pm [place]-3 Fatty Acids 1,000 MG capsule (2 sources) Start: 09-05-19 19 take 1 capsule by mouth once daily [place]-3 Fatty Acids 1,000 MG capsule Active 2000 mg PO DAILY September 04, 2018 12:00am supplement omega-3 fatty acids/fish oil (FISH OIL OMEGA 3-6-9 ORAL) (5 sources) omega-3 fatty acids/fish oil (FISH OIL OMEGA 3-6-9 ORAL) Take by mouth. Active perflutren lipid microspheres 1.3 mL in NaCl (PF) 0.9% 10 mL injection (DEFINITY) (20 sources) Start: 02-25-20 23 End: 05-25-19 25 perflutren lipid microspheres 1.3 mL in NaCl (PF) 0.9% 10 mL injection (DEFINITY) phenylephrine hydrochloride 25 mg/ml ophthalmic solution (2 sources) alpha-1 Adrenergic Agonist Start: 10-31-19 24 End: 11-01-19 24 PHENYLephrine 2.5 % 1 Drop (AK-DILATE, FARTUN-SYNEPHRINE) potassium 99 mg extended release oral tablet (20 sources) Start: 10-12-19 25 take 1 tablet by mouth once daily Potassium 99 mg tablet Active 99 mg PO DAILY October 11, 2024 12:00am supplement take 1 capsule by mouth once dorian ly POTASSIUM ORAL Take 1 capsule by mouth once daily. Active take 1 capsule by mouth once dorian ly POTASSIUM ORAL Take 1 capsule by mouth once daily. 0 Active proparacaine hydrochloride 5 mg/ml ophthalmic solution (1 source) Local Anesthetic Start: 10-31-2023 End: 11-01-2023 proparacaine 0.5 % 1 Drop (ALCAINE) rivaroxaban 20 mg oral tablet (20 sources) Factor Xa Inhibitor Start: 10-09-2017 End: 04-01-2024 take 1 tablet by mouth once daily at dinner rivaroxaban (XARELTO) 20 mg tablet Take 1 tablet by mouth daily with dinner. 90 tablet 3 04/01/2024 Active Comment on above: Take 1 tablet by gabrielle th daily with dinner. rosuvastatin calcium 20 mg oral tablet (2 sources) HMG-CoA Reductase Inhibitor Start: 12-13-2024 take 1 tablet by mouth once daily at bedtime rosuvastatin (CRESTOR) 20 mg tablet Indications: Mixed hyperlipidemia Take 1 tablet by mouth daily at bedtime. 90 tablet 3 12/13/2024 Active 125 ml sodium chloride 9 mg/ml prefilled syringe (20 sources) Start: 02-24-2023 End: 05-25-2024 sodium chloride 0.9 % (flush) 10 mL (BD POSIFLUSH) thiamine 250 mg oral tablet (20 sources) Start: 10-11-2024 take 1 tablet by mouth once daily Thiamine Hcl (Vitamin B1) 250 mg tablet Active 250 mg PO DAILY October 11, 2024 12:00am supplement thiamine HCl ( TAMIN B-1 ORAL) Take [...] once daily. 90 tablet 3 07/26/2024 Active Comment on above: Take 1 tablet by gabrielle th once daily. Vit C,E,Zn,Pl-Mrpwf7-Gj t-Zeax (1 source) Start: 03-25-2022 Vit C,E,Zn,Oy-Kndyt1-Pq t-Zeax Active CAP PO March 25, 2022 12:00am Vit C,R-Hy-Crqxa-Lutein -Zeaxan ([facility] Areds-2) 250-90-40-1 mg capsule (1 source) Start: 10-11-2024 take 2 capsules by mouth twice daily Vit C,I-Cy-Xjemy-Lutein -Zeaxan ([facility] Health Areds-2) 250-90-40-1 mg capsule Active 1 {tbl} PO TWICE A DAY October 11, 2024 12:00am eye vitamin vit C,T-Gx-ewyva-lutein -zeaxan (PRESERVISION AREDS-2) 250-90-40-1 mg (20 sources) vit C,P-Sn-igwfs-lutein -zeaxan (PRESERVISION AREDS-2) 250-90-40-1 mg Take 1 capsule by mouth twice daily with meals. Active vit C,E-Zn-coppr -lutein-zeaxan (PRESERVISION AREDS-2) 250-90-40-1 mg Take 1 capsule by mouth twice daily with meals. 0 Active Comment on above: Take 1 capsule by mo ut twice daily with meals. Zinc Sulfate (1 source) Zinc Sulfate (ZI NC 15 PO) Take by mouth. Active Completed/Discontinued Medications Medication Drug Class(es) Dates Sig (Normalized) Sig (Original) amiodarone hydrochloride 200 mg oral tablet (10 sources) Antiarrhythmic Start: 11-03-2018 End: 10-11-2024 take [...] tonight 09/08/2018 amLODIPine 5 mg oral tablet (3 sources) Dihydropyridine Calcium Channel Jarod Start: 09-07-2018 End: 10-02-2018 take 1 tablet by mouth once daily Amlodipine 5 MG tablet Discontinued 5 mg PO DAILY 30 September 07, 2018 12:00am October 02, 2018 [...] Take 1 tablet by gabrielle once daily. atenolol 50 mg oral tablet (10 sources) beta-Adrenergic Jarod Start: 9 End: 9 [...] (20 sources) Vitamin D Start: 09-04-2018 End: 12-15-2024 take 1 capsule by mouth once daily [...] by mouth. gabapentin 100 mg oral capsule (9 sources) Anti-epileptic Agent Start: 4 End: 5 take 1 capsule by mouth three times daily Gabapentin 100 mg capsule Discontinued 100 mg PO THREE TIMES A DAY April 08, 2024 1:00am October 11, 2024 8:59am 10 ml lidocaine hydrochloride 10 mg/ml injection (8 sources) Antiarrhythmic, Amide Local Anesthetic Start: 5 End: lidocaine (PF) 10 mg/mL (1 %) 4 mL injection (XYLOCAINE) Start: 10-07-2024 End: 10-07-2024 4 mL, Injection - FOR ORTHO USE ONLY, ONCE, 1 dose, Starting on Jael 10/07/24 at 0914, Until Jael 10/07/24 at 0914 Start: 06-24-2024 End: 06-24-2024 lidocaine [...] 400 mg oral tablet (20 sources) Start: End: 5 take 1 tablet by mouth once daily magnesium oxide 400 mg magnesium tab Take 400 mg by mouth once daily. 10/08/2023 10/04/2024 Discontinued (Discontinued by Patient) microencapsulated potassium chloride 20 meq extended release oral tablet (7 sources) Start: 4 End: 4 take 1 [...] Comment on above: Take 1 tablet by [facility] two times a day. 1 ml triamcinolone acetonide 40 mg/ml injection (8 sources) Corticosteroid Start: 10-07-2024 End: 10-07-2024 triamcinolone acetonide 40 mg injection (KeNALog 40) Start: 10-07-2024 End: 10-07-2024 40 mg, Injection - FOR ORTHO USE ONLY, ONCE, 1 dose, Starting on [facility] 10/07/24 at 0914, Until Jael 10/07/24 at 0914 Start: 06-24-2024 End: 06-24-2024 triamcinolone acetonide 40 m g injection (KeNALog 40) Start: 06-24-2024 End: 06-24-2024 40 mg, Injection - FOR ORTHO USE ONLY, ONCE, 1 dose, Starting on [facility] 06/24/24 at 0855, Until [facility] 06/24/24 at 0855 Vit C,E,Zn,Lq-Swqjq4-Rkw-Zeax 250-2.5-0.5 mg capsule (2 sources) Start: 03-25-2022 End: 10-11-2024 Vit C,E,Zn,Qq-Psflo1-Ycf-Zeax 250-2.5-0.5 mg capsule Discontinued NMA PO March 25, 2022 1:00am October 11, 2024 8:59am zinc acetate 50 mg oral capsule (17 sources) End: 12-24-2021 take 50 mg by mouth once daily ZINC ACETATE ORAL Take 50 mg by mouth once daily. 12/24/2021 Discontinued Comment on above: Take 50 mg by mouth once daily. Problems Active Problems Problem Classification Problem Date Documented Date Episodic/Chronic Acute myocardial infarction (8 sources) Myocardial infarction; 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: [Non-ST elevation (NSTEMI) myocardial infarction] Onset: 5 10-11-2024 Chronic Cancer of breast (20 sources) Malignant neoplasm of lower-inner quadrant of female breast; 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: [Malignant neoplasm of female breast] Onset: 8 Resolved: 2 03-02-2018 Chronic Cancer of breast (1 source) Personal history of malignant neoplasm of breast; 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: [Encounter for follow-up surveillance of breast cancer] Onset: 5 Episodic Cardiac dysrhythmias (20 sources) Paroxysmal atrial fibrillation; 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: [Paroxysmal atrial fibrillation] Onset: 8 04-27-2021 Chronic Chronic kidney disease (20 sources) Chronic kidney disease stage 3; 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: [CKD (chronic kidney disease) stage 3, GFR 30-59 ml/min] Onset: 2 Resolved: 3 10-29-2021 Chronic Chronic kidney disease (1 source) Chronic kidney disease; 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: [Chronic kidney disease, stage 3a (HCC)] Onset: 5 Congestive heart failure; nonhypertensive (20 sources) Chronic diastolic heart failure; 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: [Chronic diastolic (congestive) heart failure] Onset: 9 07-11-2020 Chronic Coronary atherosclerosis and other heart disease (4 sources) Coronary arteriosclerosis; 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: [Atherosclerotic heart disease of [place] coronary artery without angina pectoris] Onset: 5 12-13-2024 Chronic Diabetes mellitus with complications (20 sources) Type 2 diabetes mellitus; 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: [Type 2 diabetes mellitus with diabetic chronic kidney disease] Onset: 3 Chronic Disorders of lipid metabolism (5 sources) Mixed hyperlipidemia; 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: [Mixed hyperlipidemia] Onset: 5 12-13-2024 Chronic Essential hypertension (20 sources) Benign essential hypertension; 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: [Essential (primary) hypertension] Onset: 2 03-04-2020 Chronic Fluid and electrolyte disorders (2 sources) Hypokalemia; 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: [Hypokalemia] Episodic Genitourinary symptoms and ill-defined conditions (20 sources) Microalbuminuria; 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: [Proteinuria, unspecified] Onset: 2 Resolved: 2 10-29-2021 Episodic Heart valve disorders (3 sources) Tricuspid incompetence, non-rheumatic ; 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: [Nonrheumatic tricuspid (valve) insufficiency] 07-02-2019 Chronic Nonspecific chest pain (6 sources) Chest pain; 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: [Chest pain, unspecified] Onset: 5 10-11-2024 Episodic Nutritional deficiencies (2 sources) Vitamin D deficiency; 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: [Vitamin D deficiency, unspecified] Onset: 5 05-27-2024 Chronic Other aftercare (1 source) Encounter for follow-up examination after completed treatment for malignant neoplasm; 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: [Encounter for follow-up surveillance of breast cancer] Onset: 5 Episodic Other and ill-defined heart disease (4 sources) Takotsubo cardiomyopathy; 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: [Takotsubo syndrome] Onset: 5 12-13-2024 Chronic Other and ill-defined heart disease (1 source) Takotsubo syndrome; 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: [Takotsubo cardiomyopathy] Onset: 5 Chronic Other connective tissue disease (20 sources) History of reverse prosthetic total arthroplasty of right shoulder; 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: [Presence of right artificial shoulder joint] Onset: 0 10-23-2021 Chronic Other connective tissue disease (1 source) Radial styloid tenosynovitis; 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: [Radial styloid tenosynovitis [de Quervain]] Episodic Other connective tissue disease (2 sources) Pain in left lower limb; 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: [Pain in left leg] 03-12-2023 Episodic Other connective tissue disease (1 source) Falls; 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: [Repeated falls] 10-04-2024 Episodic Other connective tissue disease (1 source) Pain in left foot; 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: [Foot pain, left] Onset: 5 Episodic Other endocrine disorders (2 sources) Disorder of parathyroid gland; 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: [Disorder of parathyroid gland, unspecified] 10-06-2024 Chronic Other endocrine disorders (3 sources) Primary hyperparathyroidism; 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: [Primary hyperparathyroidism] Onset: 5 12-15-2024 Chronic Other endocrine disorders (1 source) Primary hyperparathyroidism; 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: [Primary hyperparathyroidism (HCC)] Onset: 5 Chronic Other endocrine disorders (1 source) Disorder of parathyroid gland, unspecified; 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: [Parathyroid abnormality (HCC)] Onset: 5 Chronic Other hereditary and degenerative nervous system conditions (20 sources) Essential tremor; 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: [Essential tremor] Onset: 1 06-22-2020 Chronic Other inflammatory condition of skin (1 source) Itching ; 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: [Pruritus, unspecified] 05-27-2024 Episodic Other nervous system disorders (1 source) Other chronic pain; 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: [Chronic right shoulder pain] Onset: 5 Chronic Other nervous system disorders (1 source) Tremor; 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: [Tremor, unspecified] 03-09-2024 Episodic Other nervous system disorders (1 source) Abnormal gait; 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: [Unspecified abnormalities of gait and mobility] 10-04-2024 Episodic Other non-traumatic joint disorders (1 source) Other specific arthropathies, not elsewhere classified, right shoulder; 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: [Rotator cuff tear arthropathy, right] Onset: 3 Chronic Other non-traumatic joint disorders (1 source) Other specific arthropathies, not elsewhere classified, left shoulder; 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: [Rotator cuff tear arthropathy, left] Onset: 1 Chronic Other non-traumatic joint disorders (1 source) [...] (severe) obesity due to excess calories] Onset: 8 03-04-2020 Chronic Other nutritional; endocrine; and metabolic disorders (1 source) Hypercalcemia; 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: [Hypercalcemia] 10-04-2024 Chronic Other nutritional; endocrine; and metabolic disorders (2 sources) Obesity; 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: [Obesity, unspecified] 04-08-2024 Chronic Other nutritional; endocrine; and metabolic disorders (2 sources) Morbid (severe) obesity due to excess calories; 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: [Morbid (severe) obesity due to excess calories] Onset: 2 Chronic Other nutritional; endocrine; and metabolic disorders (1 source) Body mass index (BMI) 39.0-39.9, adult; 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: [Body mass index [BMI] 39.0-39.9, adult] Onset: 5 Chronic Other nutritional; endocrine; and metabolic disorders (2 sources) Body mass index (BMI) 40.0-44.9, adult; 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: [Body mass index (BMI) 40.0-44.9, adult ([facility])] Onset: 2 Chronic Other nutritional; endocrine; and metabolic disorders (1 source) Hypercalcemia; 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: [Hypercalcemia] Onset: 5 Chronic Other upper respiratory infections (1 source) Recurrent acute sinusitis; 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: [Acute recurrent sinusitis, unspecified] 12-26-2023 Episodic Pulmonary heart disease (20 sources) Pulmonary hypertension; 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: [Pulmonary hypertension, unspecified] Onset: 9 Resolved: 3 09-24-2018 Chronic Residual codes; unclassified (20 sources) Obstructive sleep apnea syndrome; 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: [Obstructive sleep apnea (adult) (pediatric)] Onset: 3 Chronic Residual codes; unclassified (2 sources) Obstructive sleep apnea (adult) (pediatric); 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: [Obstructive sleep apnea (adult) (pediatric)] Onset: 5 Chronic Residual codes; unclassified (1 source) Bilateral lower limb edema; 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: [Localized edema] 10-04-2024 Episodic Residual codes; unclassified (2 sources) Localized edema; 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: [Edema of left lower extremity] Onset: 5 Episodic Screening and history of mental health and substance abuse codes (2 sources) Encounter for screening examination for other mental health and behavioral disorders; 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: [Encounter for screening for depression] Onset: 5 Episodic Spondylosis; intervertebral disc disorders; other back problems (20 sources) Disorder of joint of spine; 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: [Other spondylosis with radiculopathy, lumbar region] Onset: 1 02-21-2021 Chronic Spondylosis; intervertebral disc disorders; other back problems (2 sources) Low back pain; 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: [Low back pain, unspecified back pain laterality, unspecified chronicity, unspecified whether sciatica present] 03-09-2024 Episodic Unclassified (1 source) Obesity, class 2; 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: [Obesity, class 2] Onset: 5 Unclassified (1 source) Other persistent atrial fibrillation; 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: [Persistent atrial fibrillation (HCC)] Onset: 2 Unclassified (1 source) Low back pain, unspecified back pain laterality, unspecified chronicity, unspecified whether sciatica present; 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: [Low back pain, unspecified back pain laterality, unspecified chronicity, unspecified whether sciatica present] Onset: Past or Other Problems Problem Classification Problem Date Documented Date Episodic/Chronic Allergic reactions (20 sources) Solar degeneration; 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: [Other skin changes due to chronic exposure to nonionizing radiation] Onset: 07-26-2010 Resolved: 07-01-2011 07-01-2011 Episodic Appendicitis and other appendiceal conditions (20 sources) Acute appendicitis; 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: [Unspecified acute appendicitis] Onset: 03-04-2010 Resolved: 08-06-2012 08-06-2012 Episodic Cataract (20 sources) Artificial lens present; 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: [Presence of intraocular lens] Onset: 05-02-2023 Resolved: 12-15-2024 05-02-2023 Chronic Complication of device; implant or graft (8 [...] closed fracture] Onset: 09-10-2021 Resolved: 04-15-2022 Episodic Infective arthritis and osteomyelitis (except that [...] Onset: 09-09-2011 Resolved: 04-15-2022 06-24-2016 Chronic Other aftercare (20 sources) Long-term current use of anticoagulant; 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: [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] Onset: 04-15-2022 Episodic Other circulatory disease (20 sources) H/O: heart [...] of artificial knee joint, bilateral] Onset: 09-24-2011 Resolved: 12-15-2024 03-04-2020 Chronic Other connective tissue disease (20 sources) Full [...] 04-13-2020 04-13-2020 Episodic Other connective tissue disease (20 sources) [...] 03-29-2024 03-09-2024 Episodic Other connective tissue disease (2 sources) Repeated falls; 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: [Falling episodes] Onset: 03-29-2024 Episodic Other connective tissue disease (1 source) Unspecified rotator cuff tear or rupture of right shoulder, not specified as traumatic; 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: [Rotator cuff tear arthropathy, right] Onset: 05-16-2022 Episodic Other connective tissue disease (1 source) Unspecified rotator cuff tear or rupture of left shoulder, not specified as traumatic; 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: [Rotator cuff tear arthropathy, left] Onset: 04-13-2020 Episodic Other eye disorders (20 sources) Bilateral posterior vitreous detachment; 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: [Vitreous degeneration, bilateral] Onset: 05-02-2023 Resolved: 12-15-2024 05-02-2023 Chronic Other nervous system disorders (1 source) Unspecified abnormalities of gait and mobility; 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: [Abnormality of gait] Onset: 10-04-2024 Episodic Other non-traumatic joint disorders (20 sources) [...] Resolved: 04-15-2022 04-15-2022 Episodic Residual codes; unclassified (2 sources) Estrogen receptor positive status [ER+]; 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: [Estrogen receptor positive status [ER+]] Onset: 03-04-2020 Episodic Retinal detachments; defects; vascular occlusion; and retinopathy (20 sources) Nonexudative age-related macular degeneration; 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: [Nonexudative age-related macular degeneration, bilateral, intermediate dry stage] Onset: 05-02-2023 Resolved: 12-15-2024 05-02-2023 Chronic Skin and subcutaneous tissue infections (5 sources) Cellulitis of left lower limb; 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: [Cellulitis of left lower limb] Onset: 04-14-2022 Episodic Superficial injury; contusion (2 sources) Abrasion and/or friction burn of lower limb, infected; 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: [Abrasion, left lower leg, initial encounter] Onset: 04-19-2024 04-19-2024 Episodic Results Test Name Value Interpretation Reference Range Facility [facility] 01-29-2025 CNOV Office Visit ([facility]) KESHA CARMICHAEL ([id number]) 1945 F Date Time Provider Department 01/29/25 10:30 AM ALFREDO PALMER During your visit today, we recorded the following information about you: Temperature Pulse Respiration Blood pressure 98.4 degrees 72/minute 16/minute 130/72 Weight 91.3 kg Alfredo Palmer APRN.CNP 01/29/2025 11:33 AM Signed [facility] Bautista Carmichael is a 79 year old female. Patient presents with: Pain (foot): red, swollen and pain x 1 week, was seen on 01/26/25, labs done told to take an extra potassium and lasix x 3 days HPI Nontoxic-appearing 79-year-old female history of atrial fibrillation, CHF, and DM presents urgent care chief complaint left great toe pain. Duration of symptoms ongoing for the past week. States pain has worsened. Seen by PCP on the of this month. Labs obtained. Uric acid within normal limits. Sed rate slightly elevated. BNP elevated. Otherwise labs are unremarkable denies any fever body aches or chills. No nausea vomiting or abdominal pain. Does see podiatry. Does have a follow-up this Friday. No known injuries. No surgeries before previously to the foot. History of bunion. Past medical history prescription medications allergies reviewed. Review of Systems Constitutional: Negative for activity change, diaphoresis, fatigue and fever. Musculoskeletal: Positive for gait problem and joint swelling. Negative for arthralgias, back pain, myalgias, neck pain and neck stiffness. Skin: Negative for pallor, rash and wound. Neurological: Negative for dizziness, seizures, syncope, weakness, light-headedness, numbness and headaches. Psychiatric/Behavioral : Negative for confusion. Objective BP 130/72 Pulse 72 Temp 36.9 ?C (98.4 ?F) Resp 16 Wt 91.3 kg (201 lb 4.5 oz) SpO2 94% BMI 40.42 kg/m? Physical Exam Musculoskeletal: Comments: Mild edema noted to bilateral lower ankles. Dry skin noted bilaterally. Swelling of left foot and first interphalangeal joint noted. Pain with palpation over first metatarsal joint. No breaks in skin. Mild erythema noted. Neurovascular intact {ASSESSMENT/PLAN: 1. Foot pain, left - ICD9: 729.5, ICD10: M79.672 - XR FOOT GENERAL 3V AP/LAT/OBL LEFT IMPRESSION: No acute osseous abnormality. Degenerative changes as described. No acute findings noted on today's imaging. Low suspicion for cellulitis. No breaks in skin noted high suspicion for gout. Placed on colchicine. Red flags prompt ER evaluation discussed. Patient was educated on supportive therapies. Patient will follow up with primary care provider as needed. Patient was instructed to immediately proceed to emergency room for any new, worsening, or symptoms lasting longer than anticipated. The patient's clinical presentation is otherwise unremarkable at this time. Based on exam and clinical finding, the patient is stable for discharge. Plan of care was discussed with patient. Patient verbalizes understanding and agrees to plan of care. This note was generated using [employer] software. It may contain errors in wording, punctuation, or spelling. Alfredo Palmer APRN.LAUNDRY MACHINE MECHANIC History and Record Review Clinical information obtained from an independent historian. History obtained from or confirmed by: parent. External record(s) reviewed: prior outpatient record. Disposition The patient was discharged. OTC Medications were advised: Procedures Allergies As of Date: 01/29/2025 Noted Allergy Reaction ADHESIVE TAPE-SILICONES 01/17/2020 2 - Rash Comments: ALL hydrogels, hydrocolloids, adhesives ANASTROZOLE 01/08/2019 14 - Other: See Comments Comments: migraines AQUACEL-AG (SILVER-HYDROCOLLOID D*06/18/2013 9 - Itching Comments: And redness AZITHROMYCIN 01/02/2012 7 - Swelling Comments: facial EXEMESTANE 09/04/2018 14 - Other: See Comments Comments: Decreased use of right arm LISINOPRIL 12/23/2019 3 - Cough Date Reviewed: 01/29/2025 Reviewed by: Alfredo Palmer APRN.LAUNDRY MACHINE MECHANIC - Fully Assessed Reason for Visit: Pain (foot) [760] Cmt: red, swollen and pain x 1 week, was seen on 01/26/25, labs done told to take an extra potassium and lasix x 3 days Primary Visit Diagnosis:Foot pain, left [M79.672] Order(s):XR FOOT GENERAL 3V AP/LAT/OBL LEFT [[id number]] Order #: [id number] FUTURE colchicine 0.6 mg tabletTake 2 tabs by mouth, followed by 1 tab one hour later for gout flare. May repeat in 1 week.Disp: 6 tabletRfl: 0 Prescriptions as of 01/29/2025 - colchicine 0.6 mg tablet Take 2 tabs by mouth, followed by 1 tab one hour later for gout flare. May repeat in 1 week. - rosuvastatin (CRESTOR) 20 mg tablet Take 1 tablet by mouth daily at bedtime. - metoprolol succinate ER (TOPROL XL) 50 mg 24 hr tablet Take 1/2 tablet in the morning, 1 whole tablet in the evening - furosemide (LASIX) 40 mg tablet (more content not included)... Normal [facility] XR FOOT 3V AP/LAT/OBL LTon 1 XR FOOT 3V AP/LAT/OBL LT * * *Final Report* * * DATE OF EXAM: Jan 29 2025 11:01AM WOX [id number] - XR FOOT 3V AP/LAT/OBL LT / PROCEDURE REASON: Foot pain, left * * * * Physician Interpretation * * * * EXAMINATION: XR FOOT 3V AP/LAT/OBL LT TECHNOLOGIST PROVIDED HISTORY: Pt. states Lt distal foot pain that radiates through toes for 1 week. No injury. xrays done on table CLINICAL INFORMATION: 79 years old Female with Foot pain, left TECHNIQUE: XR FOOT 3V AP/LAT/OBL LT Laterality: LEFT Number of different views (projections): 3 COMPARISON: None RESULT: No acute fracture. Severe scattered degenerative changes at the interphalangeal joints. Hallux valgus with bunion and moderate degenerative change 1st MTP joint. Mild scattered degenerative changes in the midfoot. Posterior calcaneal spur. IMPRESSION: No acute osseous abnormality. Degenerative changes as described. Senior Structural Engineer: RG Transcribe Date/Time: Jan 29 2025 11:05A Dictated by : REJI NOLASCO DO This examination was interpreted and the report reviewed and electronically signed by: REJI NOLASCO DO on Jan 29 2025 11:08AM EST [id number] Normal [facility] Basic metabolic 2000 panelon 01-26-2025 Anion gap [Moles/Vol] 11 mmol/L Normal 8-15 [facility] Comment on above: Order Comment: Speci men Type: BLOOD SPECIMENOrdering Facility: [facility] Address: [address] [place] [address] Performed By: #### 2 4321-2, 38523-8, 3084-1 ####[facility] LABCLIA [id number] [place] [address] [place] Calcium [Mass/Vol] 9.5 mg/dL Normal 8.5-10.2 [facility] Comment on above: Order Comment: Speci men Type: BLOOD SPECIMENOrdering Facility: [facility] Address: [address] [place] [address] Performed By: #### 2 4321-2, 20124-8, 3084-1 ####[facility] LABCLIA [id number] [place] [address] [place] Chloride [Moles/Vol] 101 mmol/L Normal 98-107 [facility] Comment on above: Order Comment: Speci men Type: BLOOD SPECIMENOrdering Facility: [facility] Address: [address] [place] [address] Performed By: #### 2 4321-2, 64251-8, 3084-1 ####[facility] LABCLIA [id number] [place] [address] [place] CO2 [Moles/Vol] 32 mmol/L High 22-30 [facility] Comment on above: Order Comment: Speci men Type: BLOOD SPECIMENOrdering Facility: [facility] Address: [address] [place] [address] Performed By: #### 2 4321-2, 21443-8, 3084-1 ####[facility] LABCLIA [id number] [place] [address] [place] Creatinine [Mass/Vol] 0.83 mg/dL Normal 0.58-0.96 [facility] Comment on above: Order Comment: Speci men Type: BLOOD SPECIMENOrdering Facility: [facility] Address: [address] [place] [address] Performed By: #### 2 4321-2, 39547-2, 3084-1 ####[facility] LABCLIA [id number] [place] [address] [place] eGFRcr SerPlBld CKD-EPI 2020 71 mL/min/1.73m??? Normal >=60 [facility] Comment on above: Order Comment: Ashley davey Type: BLOOD SPECIMENOrdering Facility: [facility] Address: [address] [place] [address] Result Comment: Rashida mated Glomerular Filtration Rate [...] reflect actual GFR. Performed By: #### 2 4321-2, 54564-1, 3084-1 ####[facility] LABIA [id number] [place] [address] [place] Glucose [Mass/Vol] 128 mg/dL High 74-99 [facility] Comment on above: Order Comment: Ashley davey Type: BLOOD SPECIMENOrdering Facility: [facility] Address: [address] [place] [address] Result Comment: The [place] Diabetes Association (ADA) provides guidance for cutoff [...] Standards of Medical Care in Diabetes 2016, [place] [employer]. Diabetes Care. 2016.39(Suppl 1). Performed By: #### 2 4321-2, 56596-8, 3084-1 ####[facility] LABCLIA [id number] [place] [address] [place] Potassium [Moles/Vol] 4.1 mmol/L Normal 3.7-5.1 [facility] Comment on above: Order Comment: Ashley davey Type: BLOOD SPECIMENOrdering Facility: [facility] Address: [address] [place] [id number] Performed By: #### 2 4321-2, 62385-2, 3084-1 ####[facility] LABCLIA [id number] [place] [id number] [place] Sodium [Moles/Vol] 144 mmol/L Normal 136-144 [facility] Comment on above: Order Comment: Speci men Type: BLOOD SPECIMENOrdering Facility: [facility] Address: [address] [place] [address] Performed By: #### 2 4321-2, 29516-0, 3084-1 ####[facility] LABCLIA [id number] [place] [address] [place] Urea nitrogen [Mass/Vol] 16 mg/dL Normal 7-21 [facility] Comment on above: Order Comment: Speci men Type: BLOOD SPECIMENOrdering Facility: [facility] Address: [address] [place] [address] Performed By: #### 2 4321-2, 93272-9, 3084-1 ####[facility] LABCLIA [id number] [address] [place] CNOVon 01-26-2025 [facility] JANYKESHA L ([id number]) 1945 F Date Time Provider Department 01/26/25 1:40 PM [facility]ENNE HANS[facility] During your visit today, we recorded the following information about you: Pulse Blood pressure Weight 88/minute 138/64 92.1 kg Fabienne Hansen APRN.LAUNDRY MACHINE MECHANIC 01/28/2025 10:02 AM Signed This is a 79 year old female who presents today with: The patient is an 79-year-old female with atrial fibrillation, congestive heart failure, and diabetes mellitus, presenting for evaluation of acute foot swelling. HISTORY OF PRESENT ILLNESS: Kesha is an 79-year-old female with a history of atrial fibrillation, CHF, and DM, presenting for evaluation of acute left foot swelling. Left Foot Swelling: - Acute onset of left foot swelling noted upon waking on Friday morning; unable to fit shoe on affected foot. - Describes foot as feeling heavy and similar to wearing ill-fitting shoes. - Unable to bend toes under on the affected foot. - Denies significant pain, but reports soreness in the bunion area. - Denies pain when dorsiflexing toes or in the calf. - Denies history of gout or blood clots. - does have a history of cellulitis - Denies swelling extending beyond the foot and lower ext - Denies recent medication changes. - she is on a chronic anticoagulant ( xarelto) Atrial Fibrillation: - Reports being in and out of atrial fibrillation frequently. - Believes condition has been present since teenage years. - History of rheumatic heart disease in third grade. CHF: - Taking Lasix 40 mg daily. - Scheduled for an echocardiogram in July - patient of Dr Navarro who she just saw in December Myocardial Infarction: - History of mild myocardial infarction in early October. - Transitioned from metoprolol tartrate to metoprolol succinate by Dr. Navarro. - Heart cath in November showed reduced EF 45% with apical hypokinesis severe consistent with takotsubo cardiomyopathy DM: - Last A1c performed in May; reports no significant changes in the past 3-4 years and doesn't feel it necessary to check with todays labs - Scheduled to see Saskia Meier in March and she will follow with her regarding A1C PAST MEDICAL HISTORY: PAST MEDICAL HISTORY Diagnosis Date Abnormal EKG afib, inf [place] age undetermined Atrial fibrillation (HCC) Breast cancer (HCC) 03/2018 left breast Closed fracture of right distal radius 09/10/2021 Congestive heart failure (HCC) 09/24/2018 Epistaxis balloon out -2011 osteo History of colonoscopy [address] 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 Romero Osteoarthritis Posterior vitreous detachment of both eyes 05/02/2023 Pseudophakia 05/02/2023 Seasonal allergies Type 2 diabetes mellitus without complication, without long-term current use of insulin ([facility]) 04/11/2016 PAST SURGICAL HISTORY Procedure Laterality Date [...] Lisinopril MEDICATIONS Current Outpatient Medications Medication Sig rosuvastatin (CRESTOR) 20 mg tablet Take 1 tablet by mouth daily at bedtime. metoprolol succinate ER (TOPROL XL) 50 mg 24 hr tablet Take 1/2 tablet in the morning, 1 whole tablet in the evening furosemide (LASIX) 40 mg tablet Take 1 tablet by mouth once daily. valsartan (DIOVAN) 160 mg tablet Take 1 tablet by mouth once daily. rivaroxaban (XARELTO) 20 mg tablet Take 1 tablet by mouth daily with dinner. amoxicillin (AMOXIL) 500 mg capsule Take four capsules 20 minutes before procedure POTASSIUM ORAL Take 1 capsule by mouth once daily. vit C,W-Ev-ttzaw-lutein-ze axan (PRESERVISION AREDS-2) 250-90-40-1 mg Take 1 capsule by mouth twice daily with meals. thiamine HCl (VITAMIN B-1 ORAL) Take 250 mg by mouth once daily. multivitamins(DAILY MULTIVITAMIN TAB) Take one(1) tablet daily. No current facil (more content not included)... Normal [facility] ESR Westergren method (Bld) [Velocity]on 01-26-2025 ESR (Bld) [Velocity] 46 mm/h High 0-20 [facility] Comment on above: Order Comment: Speci men Type: BLOOD SPECIMENOrdering Facility: [facility] Address: [address] [place] [address] Performed By: #### 4 537-7 ####[facility] LABCLIA [id number] [place] [address] [place] NT[facility]proBNP [facility] Natriuretic peptide.B prohormone N-Terminal [Mass/Vol] 1821 pg/mL High <450 [facility] Comment on above: Order Comment: Speci men Type: BLOOD SPECIMENOrdering Facility: [facility] Address: [address] [place] [address] Performed By: #### 2 4321-2, 24086-3, 3084-1 ####[facility] LABIA [id number] [place] [address] [place] Urate [facility] Urate [Mass/Vol] 5.5 mg/dL Normal 2.5-6.6 [facility] Comment on above: Order Comment: Speci men Type: BLOOD SPECIMENOrdering Facility: [facility] Address: [address] [place] [address] Performed By: #### 2 4321-2, 96684-6, 3084-1 ####[facility] LABCLIA [id number] [place] [address] [place] CALCIUM, 24 HR URINEon 12-29 Calcium (24H U) [Mass/Time] 150.0 mg/24 hr Normal 100.0-300.0 [facility] Comment on above: Order Comment: Speci men Type: URINE SPECIMENOrdering Facility: [facility] Address: [address] [place] [address] Performed By: #### U CALCD ####[facility] LABCLIA [id number] [address], [address] [facility] [id number] [place] [address] [place] PERIOD (HRS) 24 hr Normal [facility] Comment on above: Order Comment: Speci men Type: URINE SPECIMENOrdering Facility: [facility] Address: [address] [place] [address] Performed By: #### U CALCD ####[facility] LABCLIA [id number] [address] [id number] [place] [address] [place] Performed By: #### U CRD ####[facility] LABCLIA [id number] [id number] [place] [address] [place] Specimen volume (24H U) 1.5 L Normal [facility] Comment on above: Order Comment: Speci men Type: URINE SPECIMENOrdering Facility: [facility] Address: [address] [place] [address] Performed By: #### U CALCD ####[facility] LABCLIA [id number] [address] [facility] [id number] [place] [address] [place] Performed By: #### U CRD ####[facility] LABCLIA [id number] [address] [id number] [place] [address] [place] CREATININE, 24 HOUR URINEon 12-29-2024 Creatinine (24H U) [Mass/Time] 0.734 g/24 hr Low 0.800-1.800 [facility] Comment on above: Order Comment: Speci men Type: URINE SPECIMENOrdering Facility: [facility] Address: [address] [place] [address] [place] [address] Performed By: #### U CRD ####[facility] LABCLIA [id number] [address] [facility]OS[facility]ITALW[facility] [id number] [place] [address] [facility] BD DXA - AXIAL SKELETONon BD DXA - AXIAL SKELETON * * *Final Repor t* * * DATE OF EXAM: Dec 27 2024 2:56PM [facility] 0804 - BD DXA - AXIAL SKELETON / PROCEDURE REASON: Primary hyperparathyroidism (HCC) * * * * Physician Interpretation * * * * EXAMINATION: DXA BONE DENSITOMETRY BD DXA - AXIAL SKELETON PATIENT DEMOGRAPHICS: Age: 79 years, Gender: Female SCANNER INFORMATION: DXA Model: [employer] Discovery C [id number] Date Scanned: 12/27/2024 2:56 PM CLINICAL HISTORY: DIAGNOSTIC Primary hyperparathyroidism (HCC) . RISK FACTORS FOR OSTEOPOROSIS AND ASSOCIATED FRACTURES REPORTED BY THIS PATIENT: Please refer to Bone Health Questionnaire in the EMR CURRENT THERAPY: Please refer to Bone Health Questionnaire in the EMR TECHNICAL LIMITATIONS: RESULTS: Lumbar spine (L1, L2, L3): 1.0, 0.9 g/cm2, T-score 0.0 , Z-score 2.6 Lumbar spine: 2012 : 0.976 g/cm2 Statistically significant increase Right Femoral Neck: 0.664 g/cm2, T-score -1.7 , Z-score 0.7 Right Femoral Neck: 2012 : 0.832 g/cm2 Statistically significant decrease Right Total Hip: 0.914 g/cm2, T-score -0.2 , Z-score 1.9 Right Total Hip: 2012 : 1.146 g/cm2 Statistically significant decrease Left Femoral Neck: 0.607 g/cm2, T-score -2.2 , Z-score 0.2 Left Femoral Neck: 2012 : 0.781 g/cm2 Statistically significant decrease Left Total Hip: 0.905 g/cm2, T-score -0.3 , Z-score 1.8 Left Total Hip: 2012 : 1.107 g/cm2 Statistically significant decrease CHANGE IS STATISTICALLY SIGNIFICANT IN THE SPINE OR HIP IF GREATER THAN OR EQUAL TO 0.04 g/cm2 VERTEBRAL FRACTURE ASSESSMENT Not performed. TRABECULAR BONE ASSESSMENT TBS not performed: IMPRESSION: THE LOWEST T-SCORE IS -2.2 IN THE LEFT HIP 1) DIAGNOSIS (based on BMD alone): OSTEOPENIA Caution: Medical conditions other than osteoporosis may cause low bone density, such as osteomalacia or renal osteodystrophy. Clinical correlation is necessary. 2) FRACTURE RISK (based on FRAX): 10-year absolute fracture risk: - major osteoporotic fracture = 14 % - hip fracture = 4.1 % - A diagnosis of Osteoporosis, a 10 year probability of hip fracture greater than or equal to 3% or a 10 year probability of any major osteoporosis-related fracture greater than or equal to 20% should be considered for treatment. - DXA scanner generated FRAX calculations may slightly differ from online FRAX calculations due to differences in software versions. - All recommendations and calculations are to be considered as guidelines and should not replace sound clinical judgement - Caution: Fracture risk may be increased independent of BMD in patients with corticosteroid use, age greater than 65 years, or a history of prior fragility fracture. RECOMMENDATIONS: Follow-up in 2 years or as clinically indicated. Patients that are taking corticosteroids, are transplant recipients or have hyperparathyroidism should have annual follow-up. Follow-up scans should always be done on the same machine for accurate comparison. FOR MORE INFORMATION ABOUT DIAGNOSIS AND TREATMENT: [facility] for Osteoporosis and Metabolic Bone Disease:? www.ccf.org/arthritis/ osteo National Osteoporosis Foundation:? www.nof.org International Society of Clinical Densitometry www.iscd.org Senior Structural Engineer: RG Transcribe Date/Time: Dec 31 2024 7:09A Dictated by : JG HUGGINS MD This examination was interpreted and the report reviewed and electronically signed by: JG HUGGINS MD on Dec 31 2024 7:12AM EST [id number] -2.2 Normal [facility] Campos 12-23-2024 PATIENCE Telephone (LIANNA) KESHA CARMICHAEL ([id number]) 1945 F Date Time Provider Department 12/23/24 PENNIE HIGUERA During your visit today, we recorded the following information about you: Pennie Higuera APRN.CNP 12/23/2024 1:44 PM Signed Please cancel OV next year. Pt. deciding that she does not want another appt.-she will follow up with her PCP for yearly mamm/CBE. Thank you. RIVKA Escobar Naomi 12/23/2024 2:10 PM Signed This has been cancelled. Charu Jean Allergies As of Date: 12/23/2024 Noted Allergy Reaction ADHESIVE TAPE-SILICONES 01/17/2020 2 - Rash Comments: ALL hydrogels, hydrocolloids, adhesives ANASTROZOLE 01/08/2019 14 - Other: See Comments Comments: migraines AQUACEL-AG (SILVER-HYDROCOLLOID D*06/18/2013 9 - Itching Comments: And redness AZITHROMYCIN 01/02/2012 7 - Swelling Comments: facial EXEMESTANE 09/04/2018 14 - Other: See Comments Comments: Decreased use of right arm LISINOPRIL 12/23/2019 3 - Cough Date Reviewed: 12/22/2024 Reviewed by: Pennie Higuera APRN.CNP - Fully Assessed Prescriptions as of 12/23/2024 - metoprolol tartrate, short acting, (LOPRESSOR) 50 mg tablet Take 50 mg by mouth two times a day. - rosuvastatin (CRESTOR) 20 mg tablet Take 1 tablet by mouth daily at bedtime. - omega-3 fatty acids/fish oil (FISH OIL OMEGA 3-6-9 ORAL) Take by mouth. - metoprolol succinate ER (TOPROL XL) 50 mg 24 hr tablet Take 1/2 tablet in the morning, 1 whole tablet in the evening - furosemide (LASIX) 40 mg tablet Take 1 tablet by mouth once daily. - valsartan (DIOVAN) 160 mg tablet Take 1 tablet by mouth once daily. - rivaroxaban (XARELTO) 20 mg tablet Take 1 tablet by mouth daily with dinner. - amoxicillin (AMOXIL) 500 mg capsule Take four capsules 20 minutes before procedure - POTASSIUM ORAL Take 1 capsule by mouth once daily. - vit C,H-Lp-xsbsc-lutein-ze axan (PRESERVISION AREDS-2) 250-90-40-1 mg Take 1 capsule by mouth twice daily with meals. - thiamine HCl (VITAMIN B-1 ORAL) Take 250 mg by mouth once daily. - multivitamins(DAILY MULTIVITAMIN TAB) Take one(1) tablet daily. Problem List As Of Date 12/23/2024 Noted Resolved Acute appendicitis without mention of peritonit*03/04/2010 08/06/2012 Rotator cuff tear [M75.100] 04/03/2010 04/11/2016 Other physical therapy [VCD2044] 04/10/2010 07/01/2011 Seborrheic Keratosis [L82.1] 07/26/2010 07/01/2011 Solar lentigo [L81.4] 07/26/2010 07/01/2011 Actinic skin damage [L57.8] 07/26/2010 07/01/2011 Hypertension [I10] 07/01/2011 Family history of breast cancer [Z80.3] 07/01/2011 04/15/2022 Osteoarthrosis, unspecified whether generalized*09/09/2011 09/09/2011 Arthritis of knee [M17.10] 09/11/2011 09/11/2011 Pain in joint, lower leg [M25.569] 09/24/2011 03/21/2016 History of total bilateral knee replacement [Z9*09/24/2011 12/15/2024 Arthritis of knee [M17.10] 05/31/2013 05/31/2013 Type [...] fracture of right distal radius [S52.501*09/10/2021 04/15/2022 snf current use of anticoagulant therapy *04/15/2022 Obstructive sleep apnea syndrome [G47.33] 04/15/2022 Pain [R52] 02/15/2021 04/15/2022 Pulmonary arterial hypertension (HCC) [I27.21] 04/15/2022 04/15/2022 Right hip pain [M25.551] 02/15/2021 04/15/2022 Type 2 diabetes mellitus with diabetic microalb*04/15/2022 H/O mitral valve disease [Z86.79] 02/24/2023 Intermediate stage nonexudative age-related mac*05/02/2023 12/15/2024 Pseudophakia [Z96.1] 05/02/2023 12/15/2024 Posterior vitreous detachment of both eyes [H43*05/02/2023 12/15/2024 Falls frequently [R29.6] 03/29/2024 Coronary art (more content not included)... Normal [facility] CNOVSPon 12-22-2024 CNOVSP Visit (SP) Office (HEMAWS) KESHA CARMICHAEL ([id number]) 1945 F Date Time Provider Department 12/22/24 8:30 AM PENNIE HIGUERA During your visit today, we recorded the following information about you: Temperature Pulse Blood pressure Weight 97.4 degrees 97/minute 139/91 91 kg Pennie Higuera APRN.LAUNDRY MACHINE MECHANIC 12/23/2024 1:48 PM Signed Chief Complaint Patient presents with: Established Patient HPI: Kesha Carmichael is a 79 year old female who presents here today for follow up breast cancer. Per previous note: From [facility] note: ? 01/23/2018: Screening mammogram showed there is a focal asymmetry in the upper outer left breast at the junction of anterior and middle depth. ? February 2018 - patient reports 28 gene panel at [facility] was negative. ? 02/11/18: Bilateral dx MMG shows no concerning findings in the right breast. IN the left breast, there is 6mm architectural distortion at middle depth central to the nipple seen on CC view. Targeted left breast US shows a 5 x 3 x 5 mm irregular mass in the left breast at 1:00, 7 cm FN. Recommend biopsy. Right breast US negative. ? 02/12/18: US-guided core biopsy of left breast, 1:00, 7 cm FN. Pathology shows IDC, grade 1, 0.6 cm, ER+ (99%, strong), WA+ (95%, strong), HER2 negative. ? 03/05/2018: Seen by Dr. Carter. Patient desires to proceed with BCS. ? 03/27/18: Left breast lumpectomy with sentinel lymph node biopsy which showed invasive ductal cancer measuring 0.8 cm in greatest diameter, grade 1, negative LVI, negative margins with 0/4 lymph nodes involved with metastatic breast cancer. The final pathologic stage is pT1bN0. ? 04/30/18 new patient visit in the [facility] breast oncology clinic with Dr. Layne Stoll ? May 2018 radiation completed at [facility] ? 06/05/18 - 06/19/18 anastrozole, stopped for daily FITCH ? 06/26/18 -07/01/18 exemestane, stopped for shoulder pain ? 08/13/18 follow up visit in medical oncology Per Dr. 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 She is s/p lumpectomy; 0/4 nodes were found to be positive. Ultimately, she was felt to have a T1bN0, Stage IA breast cancer. She completed radiation therapy locally. Afterwards, she was started on endocrine therapy. She took anastrozole from 06/05/18 - 06/19/18, and she was not able to tolerate anastrozole due to daily headaches and stopped the medication. Her headaches resolved. She started exemestane around 06/26/18. After taking exemestane for 5 days she developed significant right shoulder pain and reduced ROM. She denies injury but does have prior right shoulder pathology and rotator cuff tear from a fall in 2009. She discusses that she does not wish to continue AI therapy due to risk of side effects. She would like to transfer her breast cancer care locally. We discussed the recommendation to continue regular breast imaging and following with an oncology provider every 3-6 months. Pt. overdue for OV. Last seen in person 2018. Distance health visit spring 2019. Pt. cancelled follow up OV summer 2019. Has been having yearly mamms per PCP. Last done 11/15/24-BI-RADS Category 2: Benign Family members recently dx with colon cancer and pancreas cancer. Cancer has really been on my mind. But if anything was found I don't want to do anything about it. I'm 79 years old. Appetite:Ok. Energy level:Eh. Denies fevers or recent illness. Resp:denies cough or sob Cardiac:denies chest pain/palpitations-foll owed by cards GI:denies abd pain, n/v, moving bowels regularly :denies dysuria/hematuria Extrem:denies new pain, chronic shoulder pain-followed at main Endo:denies hot flashes Neuro:denies symptoms of neuropathy Skin:denies rashes Heme:denies bleeding The ROS is otherwise negative. Past medical history, appointments, medications, allergies reviewed. No changes. EXAM: BP 139/91 Pulse 97 Temp 36.3 ?C (97.4 ?F) (Temporal) Wt 91 kg (200 lb 9.9 oz) SpO2 96% BMI 40.28 kg/m? APPEARANCE Well appearing, alert, in no acute distress, well-hydrated, well nourished. HEART RRR with normal S1 and S2, no murmurs LUNG clear to auscultation BREAST FEMALE no mass/nodule b/l LYMPH NODES No cervical lymphadenopathy, No supraclavicular lymphadenopathy, and No axillary lymphadenopathy. ABDOMEN bowel sounds normoactive, soft, non-tender EXTREMITIES No edema NEURO Awake, alert and oriented x 3, using quad cane, and No involuntary motions. SKIN Skin color, texture, turgor normal, no suspicious rashes or lesions ASSESSMENT/PLAN: 1. Encounter for follow-up surveillance of breast cancer - ICD9: V67.9, V10.3, ICD10: Z08, Z85.3 T1bN0, Stage IA breast can (more content not included)... Normal [facility] CNOVon 12-15-2024 CNOV Office Visit (SULAIMAN ) KESHA CARMICHAEL ([id number]) 1945 F Date Time Provider Department 12/15/24 4:00 PM YOANDY DEMPSEY During your visit today, we recorded the following information about you: Pulse Respiration Blood pressure Weight 101/minute 16/minute 133/83 93.5 kg Height 1.503 m Yoandy Dempsey MD 12/15/2024 4:16 PM Signed 79 year-old female, patient of Dr. Chip Arreola, referred by INFANTRY SENIOR SERGEANT Belkys Mcintyre, for hyperparathyroidism. History of obesity, diet-controlled type 2 diabetes with microalbuminuria, diet controlled, heart failure, breast cancer. No history of kidney stones, PUD. Feeling fine. Max height was 64. (+) foot fracture, height loss. Current Outpatient Medications on File Prior to Visit Medication Sig rosuvastatin (CRESTOR) 20 mg tablet Take 1 tablet by mouth daily at bedtime. omega-3 fatty acids/fish oil (FISH OIL OMEGA 3-6-9 ORAL) Take by mouth. metoprolol succinate ER (TOPROL XL) 50 mg 24 hr tablet Take 1/2 tablet in the morning, 1 whole tablet in the evening furosemide (LASIX) 40 mg tablet Take 1 [...] Take 1 capsule by mouth once daily. vit C,R-Lr-vkkxh-lutein-ze axan (PRESERVISION AREDS-2) 250-90-40-1 mg Take 1 capsule by mouth twice daily with meals. thiamine HCl (VITAMIN B-1 ORAL) Take 250 mg by mouth once daily. multivitamins(DAILY MULTIVITAMIN TAB) Take one(1) tablet daily. ALLERGIES Allergen Reactions Adhesive Tape-Silic* Rash ALL hydrogels, hydrocolloids, adhesives Anastrozole Other: See Comments migraines Aquacel-Ag [Silver-* Itching And redness Azithromycin Swelling facial Exemestane Other: See Comments Decreased use of right arm Lisinopril Cough PAST MEDICAL HISTORY Diagnosis Date Abnormal EKG afib, inf GA age undetermined Atrial fibrillation (HCC) Breast cancer (HCC) 03/2018 left breast Closed fracture of right distal radius 09/10/2021 Congestive heart failure (HCC) 09/24/2018 Epistaxis balloon out osteo History of colonoscopy [address] 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 Romero Osteoarthritis Posterior vitreous detachment of both eyes 05/02/2023 Pseudophakia 05/02/2023 Seasonal allergies Type 2 diabetes mellitus without complication, without long-term current use of insulin ([facility]) 04/11/2016 PAST SURGICAL HISTORY Procedure Laterality Date [...] Mother Hypertension Mother Hypertension Father Heart Father GA Diabetes Father Kidney Disease Sister Heart disease [...] Other niece x3 Colon Cancer Other nephew SOCIAL HISTORY[1] Review of systems: Patient notes no weight changes, fever, fatigue, weakness, change in balance or sensation, visual problems, hearing changes, dizziness, trouble swallowing, nasal difficulties, shortness of breath, chest pain, c (more content not included)... Normal [facility] CNOVon 12-13-2024 CNOV Office Visit (FLOR ) KESHA CARMICHAEL ([id number]) 1945 F Date Time Provider Department 12/13/24 3:20 PM ANUJ NAVARRO During your visit today, we recorded the following information about you: Pulse Blood pressure Weight 110/minute 139/95 92.5 kg Anuj Navarro MD 12/13/2024 3:52 PM Signed [facility] Cardiology ([facility]) [address] [id number] OUTPATIENT VISIT DATE 12/13/2024 PRIMARY CARE PHYSICIAN: Chip Arreola MD [address] [place] [address] HISTORY OF PRESENT ILLNESS: Ms. Carmichael is a 79 year old woman with a history of permanent atrial fibrillation, hypertension, diastolic congestive heart failure and mild to moderate mitral/tricuspid valve regurgitation who is here for routine follow-up. Patient was admitted to [facility] in October. She was found to have Takotsubo syndrome on cardiac catheterization with mild coronary artery disease. She presents to the office for follow-up The patient was recently hospitalized and diagnosed with takotsubo cardiomyopathy. During the hospitalization, a cardiac catheterization revealed mild coronary artery blockage. She reports experiencing significant stress and anxiety due to family health issues, including her sister's diagnosis of stage 4 pancreatic cancer and her brother's history of colon cancer. She also mentions a recent nosebleed. She is scheduled for an echocardiogram in February. She has a history of breast cancer diagnosed in 2018, for which she underwent a lumpectomy and radiation therapy. She has been receiving annual mammograms but has not followed up with an oncologist since her initial treatment. She expresses concern about her strong family history of breast cancer, noting that four generations have been affected, including her grandmother, mother, and four of her seven sisters. Genetic testing for breast cancer markers was negative. She is currently under evaluation for hyperparathyroidism, with a recent parathyroid hormone level of 124 pg/mL, up from 69 pg/mL six months ago. She is scheduled to see an seafood manager. She questions a diagnosis of T2DM, as her blood glucose levels have been in the 120s, with a recent reading of 117 mg/dL. She is not on any medications for diabetes and was previously informed that her glucose levels were acceptable. She denies any history of tobacco use. PAST MEDICAL HISTORY Diagnosis Date Abnormal EKG afib, inf GA age undetermined Atrial fibrillation (HCC) Breast cancer (HCC) 03/2018 left breast Closed fracture of right distal radius 09/10/2021 Congestive heart failure ([facility]) 09/24/2018 Epistaxis balloon out osteo History of colonoscopy [address] Stoney Hernandez , normal HTN (hypertension) Hyperglycemia Knee pain, chronic Lt Migraines stopped when she retired Normal cardiac stress test 2004 Dr. Romero Osteoarthritis Seasonal allergies Type 2 diabetes mellitus without complication, without long-term current use of insulin ([facility]) 04/11/2016 PAST SURGICAL HISTORY Procedure Laterality Date [...] Mother Hypertension Mother Hypertension Father Heart Father GA Diabetes Father Kidney Disease Sister Heart disease [...] Problems Maternal Grandfather in his 70's Stroke Pater (more content not included)... Normal [facility] Cardiac Cath Diagnosticon Cardiac Cath Diagnostic [facility] Imaging Services [address] [place] [address] Cardiac Cath Diagnostic MR#: [id number] Acct: [id number] Name: KESHA CARMICHAEL Rep #: [id number] : 1945 79 From: Inocente Romero MD PCP: Dr. Chip Arreola MD Status:DIS IN Patient Name: KESHA CARMICHAEL Study Date: 10/12/2024 Performing: Inocente Romero MD Ht: 61 inches 154.94 cm : 1945 Wt: 206.2 lbs 93.4 kg Age: 79 Gender: female BSA: 1.91 PROCEDURE(S) PERFORMED [id number])LHC/COR/LV CLINICAL PROFILE AND INDICATIONS Indications: Suspected CAD Heart Failure: None Stress/Imaging Stress/Image Study Performed: No CAD Presentations: Non-STEMI. Symptom onset Date/Time: 10/11/24 Time Not Available CONCLUSIONS Mild disease noted in the proximal mid left anterior descending artery with mildly reduced flow. Normal flow noted in the circumflex and the right coronary artery. Reduced ejection fraction with apical hypokinesis severe. RECOMMENDATIONS Medical therapy DESCRIPTION OF PROCEDURE The patient arrived to the procedure lab. The risks and benefits of the procedure as well as a full description of our services here and current unavailability of surgical backup were fully explained to the patient and/or their significant other prior to the catheterization. The Timeout was completed, verifying the correct patient and procedure. The patient's procedural site was prepped and draped in the usual fashion. Local anesthetic was given subcutaneously to right radial region with Lidocaine 2%. Using a modified Seldinger technique, arterial access was obtained via the right radial artery, a 6Fr sheath was inserted. Right Coronary Artery selective angiography was then performed in multiple views using a 5 Fr. 4.0 Rosalie catheter. Left Coronary Artery selective angiography was performed in multiple views using a 5 Fr. 4.0 Rosalie catheter. Left Coronary Artery selective angiography was performed in multiple views using a 5 Fr. JL3.5 catheter. Left Ventriculography was performed in GUO projection using a 5 Fr. Pigtail catheter. LV to AO pullback pressures were then recorded.The arterial sheath was pulled and a TR Band was applied for hemostasis 10 ml of air CORONARY ANGIOGRAPHY DOMINANCE: Right Dominant LEFT HEART ASSESSMENT Left Ventricular Ejection Fraction: by LV Gram 45 % Apical Hypokinesis - Severe Consistent with Takotsubo cardiomyopathy. LEFT MAIN: Angiographically normal LEFT ANTERIOR DESCENDING ARTERY: Eccentric plaque noted with slow flow present in the mid left anterior descending artery with good distal flow and no high-grade stenosis. CIRCUMFLEX ARTERY: Mild luminal irregularities less than 30% RIGHT CORONARY ARTERY: Mild luminal irregularities less than 30% COMPLICATIONS No Complications PROCEDURE MEDICATIONS Versed 1 mg IV Fentanyl 25 mcg IV Versed 1 mg IV Oxygen: 2 L/min via nasal cannula Baby Aspirin (81mg) 1 Tabs PO @ 10/12/2024 07:37:47 Heparin given IA 10/12/2024 07:52:08 Verapamil 2.5mg, Ntg 100mcgs, 3000 units of Heparin given IA 10/12/2024 07:52:08 SUMMARY OF HEMODYNAMIC DATA Time AIR REST ECG 07:37:04 AO 110/75 (91) SA 08:25:55 AO 109/72 (91) 08:35:20 LV 119/0, 9 08:41:40 LV 115/0, 3 08:41:48 LV 110/6, 21 08:42:20 LV 111/0, 4 08:42:29 LVp 106/-2, 3 08:42:38 AOp 106/61 (81) 08:42:45 Signed By Inocente Romero MD On 10/15/2024 13:32:10 Signed By Inocente Romero MD On 10/12/2024 09:10:57 Inocente Romero MD 11/15/24 0946 Date Inocente Romero MD Cosigner Signature: Date (if indicated) CC: Dr. Inocente Romero MD; Dr. Dayanna Miranda DO; Dr. Lida Blum MD; Dr. Chip Arreola MD Date Dictated: 10/12/2447 Date Transcribed: 10/15/24 1332 Senior Structural Engineer: CO Signed Normal [facility] MAHAD SCREENING W TOMOon 11-15 MAHAD SCREENING W TERE * * *Final Report* * * DATE OF EXAM: Nov 15 2024 9:08AM [id number] - MAHAD SCREENING W TERE / PROCEDURE REASON: multiple diagnoses * * * * Physician Interpretation * * * * RESULT: [place] [address] #[id number] - MAHAD SCREENING W TERE HISTORY: 79 year-old patient presents for screening. Patient is asymptomatic in both breasts. The patient has the following personal history of breast cancer: breast cancer in the left breast. COMPARISON STUDIES: The present examination has been compared to prior imaging studies dated 11/25/2019 (mammogram), 09/05/2020 (mammogram), 10/26/2021 (mammogram), 11/08/2022 (mammogram) and 11/12/2023 (mammogram). MAMMOGRAM TECHNIQUE: The study was acquired using full field digital technology and interpreted from soft copy. Digital Breast Tomosynthesis (DBT) images were obtained and used to assist in the interpretation of this examination. MAMMOGRAM FINDINGS: The breasts are almost entirely fatty. There are post-operative changes in the left breast. No suspicious masses, calcifications or other abnormalities are seen in either breast. IMPRESSION: There is no mammographic evidence of malignancy. Routine screening mammogram is recommended. Annual mammogram will be due in 1 year. BI-RADS Category 2: Benign RISK: Due to the reported patient's history, the patient's estimated lifetime risk of developing breast cancer cannot be assessed at this time. We encourage all patients to talk with their providers about their risk assessment, further recommendations for managing breast health, and appropriate supplemental screening options if the patient has dense breast tissue. Interpreting Radiologist: Hola Meyer M.D. Electronically signed on: 11/16/2024 Senior Structural Engineer: DEBBIE Transcribe Date/Time: Nov 15 2024 8:33A Dictated by: HOLA MEYER MD This examination was interpreted and the report reviewed and electronically signed by: HOLA MEYER MD on Nov 16 2024 7:46AM EST [id number] Normal [facility] ECHOon 11-04-2024 Echocardiography Echocardiography Report: Transthoracic Echo [facility] Date of service: 11/04/2024 9:24:27 AM READING TUTOR Ordering physician: ANUJ NAVARRO Exam indication: Atrial fibrillation Technologist: Mary Louis [facility] Interpreting physician: Ang Green MD PATIENT: Name: MRS. KESHA CARMICHAEL : 1945 Age: 79 years Gender: F History of hypertension, diabetes mellitus and arrhythmia. Primary rhythm: atrial fib. Height: 149.90 cm BSA: 1.96 m Weight: 92.53 kg BMI: 41.2 kg/m Heart rate 115 bpm Technically difficult exam due to body habitus. Color Doppler was utilized to interrogate the cardiac valves assessed and spectral Doppler was utilized to determine the flow velocities and pressure gradients reported in this exam. MEASUREMENTS: Value Indexed Normal Max aortic dimension 3.4 cm Ao < 3.8 Left atrial volume 68 ml (biplane A-L) 35 ml/m Nereida <= 34 LV ID (diastole) 3.8 cm (2D) 1.95 cm/m LV ID (systole) 2.6 cm (2D) 1.34 cm/m IVS, leaflet tips 1.2 cm (2D) Posterior wall thickness 1.3 cm (2D) Left ventricular mass 164 g (2D) 84 g/m LV stroke volume 35 ml (2D 4-ch.) LV end diastolic volume 71 ml (2D 4-ch.) 36.0 ml/m 29<=EDVi<62 LV end systolic volume 35 ml (2D 4-ch.) 18.0 ml/m Ejection Fraction 50 % (2D 4-ch.) EF > 54 FINDINGS: LEFT VENTRICLE The left ventricle is normal in size. Left ventricular systolic function is mildly decreased. Left ventricular diastolic function was not evaluated due to AF. Wall Motion: All scored segments are normal. RIGHT VENTRICLE The right ventricle is normal in size. Right ventricular systolic function is normal. RV systolic tissue Doppler velocity is 10.0 cm/s. Estimated right ventricular systolic pressure is likely underestimated due to a weak or incomplete tricuspid regurgitation signal and is, at least, 28 mmHg consistent with normal pulmonary artery pressures. Estimated right atrial pressure is 3 mmHg based on IVC assessment. LEFT ATRIUM The left atrial cavity is mildly dilated. RIGHT ATRIUM The right atrial cavity is normal in size. Inferior Vena Cava: The inferior vena cava appears normal measuring 1.5 cm. The vessel decreases greater than 50 percent with inspiration. MITRAL VALVE The mitral valve leaflets are structurally normal. There is mild (1+) mitral valve regurgitation. There is mild thickening. TRICUSPID VALVE The tricuspid valve leaflets are structurally normal. There is mild (1+) tricuspid valve regurgitation. AORTIC VALVE The aortic valve cusps are structurally normal. There is no aortic valve stenosis. There is trace aortic valve regurgitation. Tricuspid aortic valve. There is mild thickening. There is mild calcification. The peak gradient is 3 mmHg (peak velocity = 85.6 cm/s). PULMONIC VALVE The pulmonic valve cusps are structurally normal. There is no pulmonic valve stenosis. There is trace pulmonic valve regurgitation. AORTA The visualized aorta is normal in size. Measurements - Mid ascending aorta 3.4 cm. INTERATRIAL SEPTUM There is no evidence of intracardiac shunting as detected by Doppler. PERICARDIUM There is no pericardial effusion. There is an epicardial fat pad. CONCLUSIONS: - Technically difficult exam due to body habitus. - Exam indication: Atrial fibrillation - The left ventricle is normal in size. Left ventricular systolic function is mildly decreased. EF = 50 5% (2D 4-ch.). Left ventricular diastolic function was not evaluated due to AF. - The right ventricle is normal in size. Right ventricular systolic function is normal. - Mild (1+) mitral valve regurgitation. - Mild (1+) tricuspid valve regurgitation. - Exam was compared with the prior echocardiographic exam performed on 07/21/2023, no significant change. * * * Final * * * CC [facility] [facility] Image : [id number] Normal [facility] CNOVon 10-19-2024 CNOV Office Visit (FAMPWS ) KESHA CARMICHAEL ([id number]) 1945 F Date Time Provider Department 10/19/24 8:00 AM [facility] During your visit today, we recorded the following information about you: Pulse Blood pressure Weight 89/minute 118/86 92.5 kg Belkys Mcintyre, BOOK EDITOR.LAUNDRY MACHINE MECHANIC 10/19/2024 8:51 AM Signed Transitional Care Management TCM Eligibility Documentation The following information was gathered during patient outreach 10/15/2024 Date of Outreach: Outreach Attempt 1: Contact Made Date of Discharge 10/12/2024 Provider Documentation Kesha Carmichael is a 79 year old female here today for a follow up from recent hospitalization. I have reviewed the patient's hospital course including discharge summary, discharge medications, and follow up needs with the patient and any family members present at today's visit. Recording using [employer] software for draft documentation of the visit was discussed with the patient/authorized outside medical sales representative; all questions welcomed and answered. Patient/authorized outside medical sales representative agreed to proceed Subjective Kesha Carmichael is an 79-year-old female with a history of atrial fibrillation, recent GA, and breast cancer, presenting for follow-up after hospitalization. Myocardial Infarction: - Recent hospitalization for GA. - Reports an episode of epistaxis followed by chest heaviness and weakness, prompting a call to EMS. - Underwent heart catheterization; informed of two ruptures in the LAD. - Ejection fraction reported as 50%. - Denies current chest heaviness. - No statin therapy initiated post-GA. Fatigue: - Significant fatigue since hospitalization. - Attributes fatigue to metoprolol tartrate 50 mg BID; reports better energy levels on a lower dose of metoprolol succinate. - Describes exhaustion as all I want to do is sit and sleep. - Denies lightheadedness or syncope. Atrial Fibrillation: - Chronic AFib, with recent heart rate recorded at 131 bpm. - Hospitalized for rate control; received diltiazem and nitroglycerin drip. - Reports persistent palpitations. - Currently on rivaroxaban. Dyspnea: - Denies significant dyspnea, except with exertion. - Uses CPAP at night; denies nocturnal dyspnea. - Unable to lie flat for 50 years due to discomfort, not dyspnea. Breast Cancer: - Diagnosed in 2018; treated with lumpectomy and radiation therapy. - No follow-up with hematology/oncology. - Family history of cancer in four out of seven sisters. Diabetes Mellitus: - A1c reported as 6.2%. - Declined metformin therapy. ROS: Constitutional: (+) fatigue, (+) daytime somnolence, (-) generalized pain Ears/Nose/Mouth/Throat : (-) epistaxis Cardiovascular: (+) palpitations, (-) chest heaviness, (-) peripheral edema Respiratory: (+) exertional dyspnea, (+) orthopnea, (-) cough, (-) wheeze, (-) paroxysmal nocturnal dyspnea Genitourinary: (+) urinary frequency, (+) nocturia Neurological: (-) lightheadedness, (-) presyncope Endocrine: (-) polydipsia Objective BP 118/86 Pulse 89 Wt 92.5 kg (204 lb) SpO2 97% BMI 41.20 kg/m? GENERAL: NAD, alert and oriented. SKIN: Unremarkable, no rash or skin lesions. Right wrist cath site without ecchymosis. Soft, non-tender. HEAD: Normocephalic. LUNGS: Clear to auscultation bilaterally, no wheezes/rhonchi/rales. HEART: Irreg- irreg, no murmurs. No ectopy. No edema. EXTREMITIES: Normal, no deformities, no skin discoloration, no edema. NEURO: Awake, alert and oriented x3, cranial nerves II-XII grossly intact, normal gait, no involuntary motions. Labs: (no date) - A1c: 6.2 - INR: Elevated Tests: (no date) Coronary angiography: - Two small ruptures in the left anterior descending coronary artery - Ejection fraction: 50% (normal 55-65) - No blockages (no date) ECG/Telemetry: - Atrial fibrillation with heart rate of 131 BPM Assessment AND Plan 1. Atrial fibrillation, unspecified type ([facility]) (I48.91) - Chronic condition with recent exacerbation; heart rate was 131 bpm during hospitalization. - Currently on metoprolol tartrate 50 mg BID for rate control, which may be contributing to fatigue. - Transition to metoprolol succinate with dosing of half a tablet (25mg) in the morning and a whole tablet (50 mg) in the evening to improve symptom management and maintain rate control. - Informed Dr. Navarro of medication adjustment. - Continue rivaroxaban for anticoagulation. 2. NSTEMI (non-ST elevated myocardial infarction) ([facility]) (I21.4) - Recent NSTEMI with two small ruptures in the left anterior descending coronary artery; ejection fraction is 50%. - Discussed the benefits of initiating statin therapy to improve endothelial function and prevent further atherosclerotic events. Pt. declined - Patient hesitant about starting a new medication; will defer to Dr. Navarro for further man (more content not included)... Normal [facility] JANYKESHA Veena ([id number]) 1945 F Date Time Provider Department 10/19/24 [facility] During your visit today, we recorded the following information about you: Belkys Mcintyre APRN.LAUNDRY MACHINE MECHANIC 10/19/2024 8:19 AM Signed EKG at [facility] showed atrial fibrillation with aberrancies Echocardiogram done October 11 showed normal left ventricular size Moderate concentric left ventricular hypertrophy Ejection fraction estimated 50% [place]wood hypokinetic Mild 1+ tricuspid valve insufficiency Pulmonary artery systolic pressure 30 mmHg Patient was seen in the emergency room for A-fib on Xarelto, BMI 40-49, type 2 diabetes, chest pain rating 7 out of 10 in the center of her chest, migraines who presents with chief complaint of an elephant sitting on her chest. EMS held off on nitroglycerin as concern for her softer blood pressure and possibility of inferior wall GA. They held off aspirin as well as prehospitalization she was on Xarelto. WBC 8.1, hemoglobin 14.9, hematocrit 46.2, platelet count 290 Differential was normal INR 2.1 Sodium 143, potassium 3.8, BUN 27, creatinine 0.92, glucose 170 Calcium 9.9 Magnesium 2.4 Troponin T high-sensitivity 17 NT proBNP type II 1553 TSH 2.52 Chest x-ray showed chronic elevation of the left hemidiaphragm since August 2018 Total cholesterol 178, triglycerides 113, HDL 48, LDL not found Patient saw cardiology consult assessment plan: Chest pain Paroxysmal atrial fibrillation Acute on chronic diastolic congestive heart failure Essential hypertension Malignant neoplasm of the left breast, estrogen receptor positive Obstructive sleep apnea High risk for intermediate cardiac catheterization as she has epistaxis and elevated INR at 2.1 Has been on Xarelto 20 mg which she took last night Noted INR elevated 2.1 Rate control using calcium channel jarod and beta-jarod Started on IV heparin and hold Xarelto Review high sensitive troponin initially 17 Echocardiogram Stop rivaroxaban continue on heparin plan for cardiac catheterization Patient did not have a STEMI. Very stable Non-ST elevation myocardial infarction patient presented with a non-STEMI ST elevation myocardial infarction underwent cardiac catheterization which demonstrated mild eccentric plaque rupture noted in the proximal and mid left anterior descending artery. The rest of the vessel appeared to be free of significant disease. There was hypokinesis of the apex noted. Takotsubo cardiomyopathy cannot be completely excluded. Recommend continuing beta-jarod, ARB, low-dose Lasix, can be switched to spironolactone, aspirin, increase beta-jarod to metoprolol tartrate 50 mg twice daily. Allergies As of Date: 10/19/2024 Noted Allergy Reaction ADHESIVE TAPE-SILICONES 01/17/2020 2 - Rash Comments: ALL hydrogels, hydrocolloids, adhesives ANASTROZOLE 01/08/2019 14 - Other: See Comments Comments: migraines AQUACEL- (SILVER-HYDROCOLLOID D*06/18/2013 9 - Itching Comments: And redness AZITHROMYCIN 01/02/2012 7 - Swelling Comments: facial EXEMESTANE 09/04/2018 14 - Other: See Comments Comments: Decreased use of right arm LISINOPRIL 12/23/2019 3 - Cough Date Reviewed: 10/19/2024 Reviewed by: Maritza Shah MA - Fully Assessed Prescriptions as of 10/19/2024 - omega-3 fatty acids/fish oil (FISH OIL OMEGA 3-6-9 ORAL) Take by mouth. - metoprolol tartrate, short acting, (LOPRESSOR) 50 mg tablet Take 50 mg by mouth two times a day. - furosemide (LASIX) 40 mg tablet Take 1 tablet by mouth once daily as needed. - furosemide (LASIX) 40 mg tablet Take 1 tablet by mouth once daily. - valsartan (DIOVAN) 160 mg tablet Take 1 tablet by mouth once daily. - rivaroxaban (XARELTO) 20 mg tablet Take 1 tablet by mouth daily with dinner. - calcium carbonate/vitamin D3 (CALCIUM WITH VITAMIN D3 ORAL) Take by mouth. - amoxicillin (AMOXIL) 500 mg capsule Take four capsules 20 minutes before procedure - POTASSIUM ORAL Take 1 capsule by mouth once daily. - vit C,S-Ay-igdgg-lutein-ze axan (PRESERVISION AREDS-2) 250-90-40-1 mg Take 1 capsule by mouth twice daily with meals. - Cholecalciferol, Vitamin D3, 50 mcg (2,000 unit) cap Take 1 capsule by mouth once daily. - thiamine HCl (VITAMIN B-1 ORAL) Take 250 mg by mouth once daily. - multivitamins(DAILY MULTIVITAMIN TAB) Take one(1) tablet daily. Problem List As Of Date 10/19/2024 Noted Resolved Acute appendicitis without mention of peritonit*03/04/2010 08/06/2012 Rotator cuff tear [M75.100] 04/03/2010 04/11/2016 Other physical therapy [FRC8056] 04/10/2010 07/01/2011 Seborrheic Keratosis [L82.1] 07/26/2010 07/01/2011 Solar lentigo [L81.4] 07/26/2010 07/01/2011 Actinic skin damage [L57.8] 07/26/2010 07/01/2011 Essential hypertension, benign [I10] 07/01/2011 Family history of breast cancer [Z80.3] 0 (more content not included)... Normal [facility] 10-15-2024 [facility] KESHA CARMICHAEL ([id number]) 1945 F Date Time Provider Department 10/15/24 [facility] During your visit today, we recorded the following information about you: Belkys Mcintyre, BOOK EDITOR.LAUNDRY MACHINE MECHANIC 10/15/2024 2:31 PM Signed Patient was admitted to [facility] on October 11, 2024 and discharged on the following day for unspecified atrial fibrillation Patient currently improved. Did receive digoxin in the emergency room. Unclear if she is actually taking both of those. Will need to be on IV metoprolol for heart rate greater than 160 mg. Is already anticoagulated on rivaroxaban continue for now. Echocardiogram showed ejection fraction 50%, hypokinetic apex, pulmonary artery systolic pressure of 30 mmHg. Change metoprolol supinate 50 once a day to tartrate 50 twice a day and resume rivaroxaban on the . Chest pain, initial troponin minimally elevated at 17 and then went to 323. Not an actual ST elevation myocardial infarction despite as a STEMI alert being called. Left heart cath today showed mild eccentric Plaque rupture noted in the proximal and mid left LAD. The rest of the vessels appear to be free of significant disease. There was hypokinesis of the apex noted. Takotsubo cardiomyopathy cannot be completely excluded Continue valsartan Okay for discharge. Patient presents with chest pain as well as epistaxis. Epistaxis did resolve but the patient was having chest pain. Troponins were slightly elevated up to 323. Underwent echocardiogram and that showed an ejection fraction of 30% and hypokinetic apex. Heart cath as above. WBC 7.4, hemoglobin 12.5, hematocrit 37.8, platelet count 253 Sodium 142, potassium 3.5, BUN 21, creatinine 0.84, glucose 138 Total cholesterol 178, triglycerides 113, LDL 107, HDL 48 TSH 2.76 Echocardiogram normal left ventricular size Moderate concentric left ventricular hypertrophy, left ventricular ejection fraction of 50%. [place]wood hypokinetic Mild 1+ tricuspid valve insufficiency Pulmonary artery systolic pressure 30 mmHg Allergies As of Date: 10/15/2024 Noted Allergy Reaction ADHESIVE TAPE-SILICONES 01/17/2020 2 [...] by: Sonali Girard MA - Fully Assessed Prescriptions as of 10/15/2024 - metoprolol tartrate, short acting, (LOPRESSOR) 50 mg tablet Take 50 mg by mouth two times a day. - furosemide (LASIX) 40 mg tablet Take 1 tablet by mouth once daily as needed. - furosemide (LASIX) 40 mg tablet Take 1 tablet by mouth once daily. - valsartan (DIOVAN) 160 mg tablet Take 1 tablet by mouth once daily. - rivaroxaban (XARELTO) 20 mg tablet Take 1 tablet by mouth daily with dinner. - calcium carbonate/vitamin D3 (CALCIUM WITH VITAMIN D3 ORAL) Take by mouth. - amoxicillin (AMOXIL) 500 mg capsule Take four capsules 20 minutes before procedure - POTASSIUM ORAL Take 1 capsule by mouth once daily. - vit C,T-Jm-fcoba-lutein-ze axan (PRESERVISION AREDS-2) 250-90-40-1 mg Take 1 capsule by mouth twice daily with meals. - Cholecalciferol, Vitamin D3, 50 mcg (2,000 unit) cap Take 1 capsule by mouth once daily. - thiamine HCl (VITAMIN B-1 ORAL) Take 250 mg by mouth once daily. - multivitamins(DAILY MULTIVITAMIN TAB) Take one(1) tablet daily. Problem List As Of Date 10/15/2024 Noted Resolved Acute appendicitis without mention of peritonit*03/04/2010 08/06/2012 Rotator cuff tear [M75.100] 04/03/2010 04/11/2016 Other physical therapy [[id number]] 04/10/2010 07/01/2011 Seborrheic Keratosis [L82.1] 07/26/2010 07/01/2011 Solar lentigo [L81.4] 07/26/2010 07/01/2011 Actinic skin damage [L57.8] 07/26/2010 07/01/2011 Essential hypertension, benign [I10] 07/01/2011 Family history of breast cancer [Z80.3] 07/01/2011 04/15/2022 Osteoarthrosis, unspecified whether generalized*09/09/2011 09/09/2011 Arthritis of knee [M17.10] 09/11/2011 09/11/2011 [...] fibrillation (HCC) [I48.19] 08/18/2017 Malignant neoplasm of le (more content not included)... Normal [facility] 12 Lead EKGon 10-12-2024 12 Lead EKG [facility] Cardiovascular Services [address] [place] [address] 12 Lead EKG 10/12/24 0537 MR#: [id number] Acct: [id number] Name: KESHA CARMICHAEL Rep #: [id number] : 1945 79 From: Inocente Romero MD Attending Dr: Dr. Dayanna Miranda, DO Status: DIS IN Ordering Dr: Lida Blum MD Date: 10/12/24 Location: [facility] Sex: F C Admitted: 10/11/24 Test Reason : HEART CATH Blood Pressure : */* mmHG Vent. Rate : 100 BPM Atrial Rate : * BPM P-R Int : * ms QRS Dur : 78 ms QT Int : 406 ms P-R-T Axes : * 100 -85 degrees QTcB Int : 523 ms Atrial fibrillation with premature ventricular or aberrantly conducted complexes Rightward axis T wave abnormality, consider inferolateral ischemia Prolonged QT Abnormal ECG When compared with ECG of 11-Oct-2024 12:44, MANUAL COMPARISON REQUIRED DATA IS UNCONFIRMED Confirmed by NICK SINHA, INOCENTE ([id number]), publication editor DELORIS MARIE ([id number]) on 10/13/2024 7:16:57 AM Referred By: Lida Blum Confirmed By: INOCENTE ROMERO MD 10/13/24 0716 Date Inocente Romero MD CC: Dr. Dayanna Miranda DO; Dr. Lida Blum MD; Dr. Chip Arreola MD Signed Normal [facility] Absolute lymphocyte countOrd ered By: Daaynna Miranda on 10-12-2024 Lymphocytes Auto (Unsp spec) [#/Vol] 1.41 10*3/uL 0.83-4.51 [facility] Absolute neutrophil countOrd ered By: Dayanna Miranda on 10-12-2024 Neutrophils (Bld) [#/Vol] 5.4 10*3/uL 2.0-7.7 [facility] Activated partial thrombopla stin time (aPTT) in platelet poor plasma by coagulation aOrdered By: Lida Blum on 10-12-2024 aPTT Coag (PPP) [Time] 90.2 s High 24.1-36.2 [facility] Comment on above: CRITICAL VALUE CALDERON D TO DAVID ROGERS10/12/24 0117 Sally Lockett.RESULTS READ BACK BY SAME. Anion gap in Serum or Plasma Ordered By: Dayanna Miranda on 10-12-2024 Anion gap [Moles/Vol] 11 mmol/L 5-15 [facility] Automated lymphocyte count a s percentage of total leukocytesOrdered By: Dayanna Miranda on 10-12-2024 Lymphocytes/100 WBC Auto (Unsp spec) 19.0 % -41 [facility] BUN/creatinine ratioOrdered By: Dayanna Miranda on 10-12-2024 Urea nitrogen/Creatinine [Mass ratio] 24.7 mg/mg High 01-24 [facility] Basic Metabolic Profile (BMP )on 10-12-2024 BUN/CRE 24.7 RATIO High - [facility] Comment on above: Performed By: #### L 501.9520, L500.4100, L500.2500, L100.0100 ####[facility] [address] [place], [address] Calcium [Mass/Vol] 9.2 mg/dL Normal 7.6-11.0 [facility] Comment on above: Performed By: #### L 501.9520, L500.4100, L500.2500, L100.0100 ####[facility] [address] [place], [address] Chloride [Moles/Vol] 104 mmol/L Normal 98-108 [facility] Comment on above: Performed By: #### L 501.9520, L500.4100, L500.2500, L100.0100 ####[facility] [address] [place], [address] CO2 [Moles/Vol] 26.9 mmol/L Normal 21.0-32.0 [facility] Comment on above: Performed By: #### L 501.9520, L500.4100, L500.2500, L100.0100 ####[facility] [address] [place], [address] Creatinine [Mass/Vol] 0.84 mg/dL Normal 0.70-1.20 [facility] Comment on above: Performed By: #### L 501.9520, L500.4100, L500.2500, L100.0100 ####[facility] [address] [place], [address] ECRCL 54.52 ml/min Normal 50-250 [facility] Comment on above: Performed By: #### L 501.9520, L500.4100, L500.2500, L100.0100 ####[facility] [address] [place], [address] GAP 11 Normal 5-15 [facility] Comment on above: Performed By: #### L 501.9520, L500.4100, L500.2500, L100.0100 ####[facility] [address] [place], [address] GFR/1.73 sq M.predicted among non-blacks MDRD (S/P/Bld) [Vol rate/Area] 70 mL/min/{1.73_m2} Normal >60 [facility] Comment on above: Result Comment: mL/m in/1.73m2 CKD-EPI Creatinine Equation (2020) Performed By: #### L 501.9520, L500.4100, L500.2500, L100.0100 ####[facility] [address] [place], [address] Glucose [Mass/Vol] 138 mg/dL High 70-99 [facility] Comment on above: Performed By: #### L 501.9520, L500.4100, L500.2500, L100.0100 ####[facility] [address] [place], [address] Potassium [Moles/Vol] 3.5 mmol/L Normal 3.3-5.1 [facility] Comment on above: Performed By: #### L 501.9520, L500.4100, L500.2500, L100.0100 ####[facility] [address] [place], [address] Sodium [Moles/Vol] 142 mmol/L Normal 133-145 [facility] Comment on above: Performed By: #### L 501.9520, L500.4100, L500.2500, L100.0100 ####[facility] [address] [place], [address] Urea nitrogen [Mass/Vol] 21 mg/dL High 4-19 [facility] Comment on above: Performed By: #### L 501.9520, L500.4100, L500.2500, L100.0100 ####[facility] [address] [place], [address] Basophil percentageOrdered B y: Dayanna Miranda on 10-12-2024 Basophils/100 WBC (Bld) 0.3 % 0-1 [facility] CBC W/Diff, Automatedon Absolute Lymph 1.41 X10 3/uL Normal 0.83-4.51 [facility] Comment on above: Performed By: #### L 501.9520, L500.4100, L500.2500, L100.0100 ####[facility] [address] [place], [address] Absolute Neut 5.4 X10 3/uL Normal 2.0-7.7 [facility] Comment on above: Performed By: #### L 501.9520, L500.4100, L500.2500, L100.0100 ####[facility] [address] [place], [address] Basophils/100 WBC (Bld) 0.3 % Normal 0-1 [facility] Comment on above: Performed By: #### L 501.9520, L500.4100, L500.2500, L100.0100 ####[facility] [address] [place], [address] Eosinophils/100 WBC (Bld) 0.7 % Normal 0-5 [facility] Comment on above: Performed By: #### L 501.9520, L500.4100, L500.2500, L100.0100 ####[facility] [address] [place], [address] Erythrocyte distribution width (RBC) [Ratio] 12.8 % Normal 11.6-14.6 [facility] Comment on above: Performed By: #### L 501.9520, L500.4100, L500.2500, L100.0100 ####[facility] [address] [place], [address] Hematocrit (Bld) [Volume fraction] 37.8 % Normal 37-47 [facility] Comment on above: Performed By: #### L 501.9520, L500.4100, L500.2500, L100.0100 ####[facility] [address] [place], [address] Hemoglobin (Bld) [Mass/Vol] 12.5 g/dL Normal 12.0-15.0 [facility] Comment on above: Performed By: #### L 501.9520, L500.4100, L500.2500, L100.0100 ####[facility] [address] [place], [address] IG% 0.400 Normal 0.0-0.9 [facility] Comment on above: Result Comment: IG% - Immature Granulocytes (promyelocytes, myelocytes and metamyelocytes) > 1% indicates that a LEFT SHIFT is Present. Performed By: #### L 501.9520, L500.4100, L500.2500, L100.0100 ####[facility] [address] [place], [address] Lymphocytes/100 WBC (Bld) 19.0 % Normal 19-41 [facility] Comment on above: Performed By: #### L 501.9520, L500.4100, L500.2500, L100.0100 ####[facility] [address] [place], [address] MCH (RBC) [Entitic mass] 31.8 pg Normal 27.0-32.0 [facility] Comment on above: Performed By: #### L 501.9520, L500.4100, L500.2500, L100.0100 ####[facility] [address] [place], [address] MCHC (RBC) [Mass/Vol] 33.1 g/dL Normal 32-36 [facility] Comment on above: Performed By: #### L 501.9520, L500.4100, L500.2500, L100.0100 ####[facility] [address] [place], [address] MCV (RBC) [Entitic vol] 96.2 fL Normal 81-99 [facility] Comment on above: Performed By: #### L 501.9520, L500.4100, L500.2500, L100.0100 ####[facility] [address] [place], [address] Monocytes/100 WBC (Bld) 6.6 % Normal 0-10 [facility] Comment on above: Performed By: #### L 501.9520, L500.4100, L500.2500, L100.0100 ####[facility] [address] [place], [address] Neutrophils/100 WBC (Bld) 73.0 % High 47-70 [facility] Comment on above: Performed By: #### L 501.9520, L500.4100, L500.2500, L100.0100 ####[facility] [address] [place], [address] Nucleated RBC (Bld) [#/Vol] 0 10*3/uL Normal 0-5 [facility] Comment on above: Performed By: #### L 501.9520, L500.4100, L500.2500, L100.0100 ####[facility] [address] [place], [address] Platelet mean volume (Bld) [Entitic vol] 10.7 fL Normal 6.2-12.0 [facility] Comment on above: Performed By: #### L 501.9520, L500.4100, L500.2500, L100.0100 ####[facility] [address] [place], [address] Platelets (Bld) [#/Vol] 253 10*3/uL Normal 150-450 [facility] Comment on above: Performed By: #### L 501.9520, L500.4100, L500.2500, L100.0100 ####[facility] [address] [place], [address] RBC (Bld) [#/Vol] 3.93 10*6/uL Low 4.2-5.4 [facility] Comment on above: Performed By: #### L 501.9520, L500.4100, L500.2500, L100.0100 ####[facility] [address] [place], [address] RDW SD 45.2 fl High 35.1-43.9 [facility] Comment on above: Performed By: #### L 501.9520, L500.4100, L500.2500, L100.0100 ####[facility] [address] [place], [address] WBC (Bld) [#/Vol] 7.4 10*3/uL Normal 4.4-11.0 [facility] Comment on above: Performed By: #### L 501.9520, L500.4100, L500.2500, L100.0100 ####[facility] [address] [place], [address] Calculated very low density lipoprotein (VLDL) cholesterol measurementOrdered By: Dayanna Miranda on 10-12-2024 Calculated very low density lipoprotein (VLDL) cholesterol measurement 23 mg/dL 5-40 [facility] Carbon dioxide, total [Moles /volume] in Central venous bloodOrdered By: Dayanna Miranda on 10-12-2024 CO2 [Moles/Vol] 26.9 mmol/L 21.0-32.0 [facility] Chloride assayOrdered By: Peter Miranda on 10-12-2024 Chloride [Moles/Vol] 104 mmol/L 98-108 [facility] Electrocardiogram reportOrde red By: Inocente Romero on 10-12-2024 EKG study [facility] Cardiovascular Services [address] [place] [address] 12 Lead EKG 10/11/24 0848 MR#: [id number] Acct: [id number] Name: KESHA CARMICHAEL Rep #:[id number] : 1945 79 From: Inocente Romero MD Attending Dr: Dr. Lida Blum MD Status: ADM IN Ordering Dr: Ruiz Reaves DO Date: Location: [facility] Sex: F C Admitted: 10/11/24 Test Reason : CP Blood Pressure : */* mmHG Vent. Rate : 137 BPM Atrial Rate : * BPM P-R Int : * ms QRS Dur : 80 ms QT Int : 278 ms P-R-T Axes : * -8 -20 degrees QTcB Int : 419 ms Atrial fibrillation with rapid ventricular response with premature ventricular or aberrantly conducted complexes Low voltage QRS Nonspecific ST abnormality Abnormal ECG Confirmed by NICK SINHA, INOCENTE ([id number]), publication editor DELORIS MARIE ([id number]) on 10/12/2024 8:21:37 AM Referred By: Lida Blum Confirmed By: INOCENTE ROMERO MD 10/12/24820 Date _ Inocente Romero MD CC: Dr. Lida Blum MD; Dr. Ruiz Reaves DO; Dr. Chip Arreola MD ~ Signed [facility] Work Phone: EKG study [facility] Cardiovascular Services [address] [place] [address] 12 Lead EKG 10/11/24 0859 MR#: [id number] Acct: [id number] Name: KESHA CARMICHAEL Rep #:[id number] : 1945 79 From: Inocente Romero MD Attending Dr: Dr. Lida Blum MD Status: ADM IN Ordering Dr: Ruiz Reaves DO Date: Location: [facility] Sex: F C Admitted: 10/11/24 Test Reason : REPEAT Blood Pressure : */* mmHG Vent. Rate : 118 BPM Atrial Rate : * BPM P-R Int : * ms QRS Dur : 82 ms QT Int : 324 ms P-R-T Axes : * -13 -16 degrees QTcB Int : 454 ms Atrial fibrillation with rapid ventricular response with premature ventricular or aberrantly conducted complexes Low voltage QRS Abnormal ECG Confirmed by INOCENTE ROMERO MD ([id number]), publication editor DELORIS MARIE ([id number]) on 10/12/2024 8:21:50 AM Referred By: Lida Blum Confirmed By: INOCENTE ROMERO MD 10/12/24820 Date _ Inocente Romero MD CC: Dr. Lida Blum MD; Dr. Ruiz Reaves DO; Dr. Chip Arreola MD ~ Signed [facility] Work Phone: Eosinophil percentageOrdered By: Dayanna Miranda on 10-12-2024 Eosinophils/100 WBC (Bld) 0.7 % 0-5 [facility] Erythrocyte distribution wid th ratioOrdered By: Dayanna Miranda on 10-12-2024 Erythrocyte distribution width (RBC) [Ratio] 12.8 % 11.6-14.6 [facility] Erythrocyte distribution wid th standard deviationOrdered By: Dayanna Miranda on 10-12-2024 Erythrocyte distribution width (RBC) [Ratio] 45.2 fl High 35.1-43.9 [facility] Glomerular filtration rate ( GFR) estimation/1.73 sq m using serum, plasma, or whole bOrdered By: Dayanna Miranda on 10-12-2024 GFR/1.73 sq M.predicted among non-blacks MDRD (S/P/Bld) [Vol rate/Area] 70 mL/min/{1.73_m2} >60 [facility] Comment on above: mL/min/1.73m2 CKD-EP I Creatinine Equation (2020) Hematocrit Auto (Bld) [Volum e fraction]Ordered By: Dayanna Miranda on 10-12-2024 Hematocrit (Bld) [Volume fraction] 37.8 % 37-47 [facility] Hemoglobin measurementOrdere d By: Dayanna Miranda on 10-12-2024 Hemoglobin (Bld) [Mass/Vol] 12.5 g/dL 12.0-15.0 [facility] Immature granulocytes/100 WB C Auto (Bld)Ordered By: Dayanna Miranda on 10-12-2024 Immature granulocytes/100 WBC (Bld) 0.400 % 0.0-0.9 [facility] Comment on above: IG% - Immature Granu locytes (promyelocytes, myelocytes and metamyelocytes) > 1% indicates that a LEFT SHIFT is Present. LDL calc ser/plasOrdered By: Dayanna Miranda on 10-12-2024 Cholesterol in LDL [Mass/Vol] 107 mg/dL [facility] Comment on above: Zipqpymixq=518-228 m g/dL & Higher Vufa=897 mg/dL or greater Lipid Profileon 10-12-2024 CHOL:HDL 3.69 Normal [facility] Comment on above: Performed By: #### L 501.4827, L500.4100, L500.2500, L100.0100 ####[facility] [address] [place], [place], [id number] Cholesterol [Mass/Vol] 178 mg/dL Normal <=200 [facility] Comment on above: Result Comment: Chol esterol level, Desirable <200 mg/dL Borderline high cholesterol 200-239 mg/dL High cholesterol >=240 mg/dL Recommendations of the NCEP Adult Treatment Panel for the following risk-cutoff thresholds for the [place] population. Performed By: #### L 501.9520, L500.4100, L500.2500, L100.0100 ####[facility] [address] [place], [address] Cholesterol in HDL [Mass/Vol] 48 mg/dL Normal [facility] Comment on above: Result Comment: [place] onal Cholesterol Education Program (NCEP) guidelines: <40 mg/dL: Low HDL-cholesterol (major risk factor for CHD) >= 60 mg/dL: High HDL-cholesterol (negative risk factor for CHD) HDL-cholesterol is affected by a number of factors, e.g. smoking, exercise, hormones, sex and age. Performed By: #### L 501.9520, L500.4100, L500.2500, L100.0100 ####[facility] [address] [place], [address] Cholesterol in LDL [Mass/Vol] 107 mg/dL Normal [facility] Comment on above: Result Comment: Bord ztlaor=851-320 mg/dL Higher Xzap=076 mg/dL or greater Performed By: #### L 501.9520, L500.4100, L500.2500, L100.0100 ####[facility] [address] [place], [address] Cholesterol in VLDL [Mass/Vol] 23 mg/dL Normal 5-40 [facility] Comment on above: Performed By: #### L 501.9520, L500.4100, L500.2500, L100.0100 ####[facility] [address] [place], [address] Triglyceride [Mass/Vol] 113 mg/dL Normal [facility] Comment on above: Result Comment: The drugs N-Acetylcysteine and Metamizole may falsely depress this assay. Normal range: <150 mg/dL Borderline High: 150-199 mg/dL High: 200-499 mg/dL Very High: >500 mg/dL Performed By: #### L 501.9520, L500.4100, L500.2500, L100.0100 ####[facility] [address] [place], [place], [address] MCV (mean corpuscular volume ) determinationOrdered By: Dayanna Miranda on 10-12-2024 MCV (RBC) [Entitic vol] 96.2 fL 81-99 [facility] Mean corpuscular hemoglobin (MCH) determinationOrdered By: Dayanna Miranda on 10-12-2024 MCH (RBC) [Entitic mass] 31.8 pg 27.0-32.0 [facility] Mean corpuscular hemoglobin concentration (MCHC) determinationOrdered By: Dayanna Miranda on 10-12-2024 MCHC (RBC) [Mass/Vol] 33.1 g/dL 32-36 [facility] Mean platelet volume determi nationOrdered By: Dayanna Miranda on 10-12-2024 Platelet mean volume (Bld) [Entitic vol] 10.7 fL 6.2-12.0 [facility] Monocyte percentageOrdered B y: Dayanna Miranda on 10-12-2024 Monocytes/100 WBC (Bld) 6.6 % 0-10 [facility] Neutrophil percentageOrdered By: Dayanna Miranda on 10-12-2024 Neutrophils/100 WBC (Bld) 73.0 % High 47-70 [facility] Nucleated red blood cell per centageOrdered By: Dayanna Miranda on 10-12-2024 Nucleated RBC/100 WBC (Bld) [Ratio] 0 % 0-5 [facility] Partial Thromboplast Timeon 10-12-2024 aPTT Coag (Bld) [Time] 90.2 s Invalid Interpretation Code 24.1-36.2 [facility] Comment on above: Result Comment: CRIT ICAL VALUE CALLED TO DAVID ROGERS 10/12/24 0437 Sally Lockett. RESULTS READ BACK BY SAME. Performed By: #### L 300.4310 #### [facility] Laboratory [address] [place], [place], [address] Platelet countOrdered By: Peter Miranda on 10-12-2024 Platelets (Bld) [#/Vol] 253 10*3/uL 150-450 [facility] Potassium measurement (mass/ volume)Ordered By: Dayanna Miranda on 10-12-2024 Potassium (Unsp spec) [Mass/Vol] 3.5 mmol/L 3.3-5.1 [facility] RBC Auto (Bld) [#/Vol]Ordere d By: Dayanna Miranda on 10-12-2024 RBC (Bld) [#/Vol] 3.93 10*6/uL Low 4.2-5.4 [facility] Screening total cholesterol/ high density lipoprotein (HDL) cholesterol ratioOrdered By: Dayanna Miranda on 10-12-2024 Cholesterol.total/Kate sterol in HDL [Mass ratio] 3.69 {ratio} [facility] Serum creatinine measurement (mass/volume)Ordered By: Dayanna Miranda on 10-12-2024 Creatinine [Mass/Vol] 0.84 mg/dL 0.70-1.20 [facility] Serum glucose measurement (m ass/volume)Ordered By: Dayanna Miranda on 10-12-2024 Glucose [Mass/Vol] 138 mg/dL High 70-99 [facility] Serum or plasma calcium shubham urement (mass/volume)Ordered By: Dayanna Miranda on 10-12-2024 Calcium [Mass/Vol] 9.2 mg/dL 7.6-11.0 [facility] Serum or plasma cholesterol in HDL measurement (mass/volume)Ordered By: Dayanna Miranda on 10-12-2024 Cholesterol in HDL [Mass/Vol] 48 mg/dL >40 [facility] Comment on above: National Cholesterol Education Program (NCEP) guidelines:<40 mg/dL: Low HDL-cholesterol (major risk factor for CHD)>= 60 mg/dL: High HDL-cholesterol (negative risk factor for CHD)HDL-cholesterol is affected by a number of factors, e.g. smoking, exercise, hormones, sex and age. Serum or plasma cholesterol measurement (mass/volume)Ordered By: Dayanna Miranda on 10-12-2024 Cholesterol [Mass/Vol] 178 mg/dL <201 [facility] Comment on above: Cholesterol level, D esirable <200 mg/dLBorderline high cholesterol 200-239 mg/dLHigh cholesterol >=240 mg/dLRecommendations of the NCEP Adult Treatment Panel for the following risk-cutoff thresholds for the [place] population. Serum or plasma urea nitroge n measurement (mass/volume)Ordered By: Dayanna Miranda on 10-12-2024 Urea nitrogen [Mass/Vol] 21 mg/dL High 4-19 [facility] Sodium levelOrdered By: Dayanna Miranda on 10-12-2024 Sodium [Moles/Vol] 142 mmol/L 133-145 [facility] TSH DL <= 0.005 mIU/L QnOrde red By: Dayanna Miranda on 10-12-2024 TSH Qn 2.760 uIU/mL 0.300-4.200 [facility] Thyroid Stim Hormone (TSH)on 10-12-2024 TSH 2.760 uIU/mL Normal 0.300-4.200 [facility] Comment on above: Performed By: #### L 501.9520, L500.4100, L500.2500, L100.0100 ####[facility] [address] [place], [place], [id number] Triglycerides measurementOrd ered By: Dayanna Miranda on 10-12-2024 Triglyceride [Mass/Vol] 113 mg/dL <199 [facility] Comment on above: The drugs N-Acetylcy steine and Metamizole may falsely depress this assay. Normal range: <150 mg/dLBorderline High: 150-199 mg/dLHigh: 200-499 mg/dLVery High: >500 mg/dL White blood cell (WBC) count Ordered By: Dayanna Miranda on 10-12-2024 WBC (Bld) [#/Vol] 7.4 10*3/uL 4.4-11.0 [facility] 12 Lead EKGon 10-11-2024 12 Lead EKG [facility] Cardiovascular Services [address] [place] [address] 12 Lead EKG 10/11/24 1244 MR#: [id number] Acct: [id number] Name: KESHA CARMICHAEL Rep #: [id number] : 1945 79 From: Inocente Romero MD Attending Dr: Dr. Dayanna Miranda DO Status: DIS IN Ordering Dr: Dayanna Miranda DO Date: 10/11/24 Location: U Sex: F C Admitted: 10/11/24 Test Reason : Blood Pressure : */* mmHG Vent. Rate : 98 BPM Atrial Rate : * BPM P-R Int : * ms QRS Dur : 80 ms QT Int : 374 ms P-R-T Axes : * -43 -9 degrees QTcB Int : 477 ms Atrial fibrillation with premature ventricular or aberrantly conducted complexes Left axis deviation Low voltage QRS Septal infarct , age undetermined Abnormal ECG When compared with ECG of 11-Oct-2024 08:59, MANUAL COMPARISON REQUIRED DATA IS UNCONFIRMED Confirmed by NICK SINHA, INOCENTE ([id number]), publication editor DELORIS MARIE ([id number]) on 10/13/2024 7:16:44 AM Referred By: Lida Blum Confirmed By: INOCENTE ROMERO MD 10/13/24 0716 Date Inocente Romero MD CC: Dr. Dayanna Miranda DO; Dr. Lida Blum MD; Dr. Chip Arreola MD Signed Normal [facility] 12 Lead EKG [facility] Cardiovascular Services [address] [place] [address] 12 Lead EKG 10/11/24 0859 MR#: [id number] Acct: [id number] Name: KESHA CARMICHAEL Rep #: [id number] : 1945 79 From: Inocente Romero MD Attending Dr: Dr. Lida Blum MD Status: ADM IN Ordering Dr: Ruiz Reaves DO Date: 10/11/24 Location: U Sex: F C Admitted: 10/11/24 Test Reason : REPEAT Blood Pressure : */* mmHG Vent. Rate : 118 BPM Atrial Rate : * BPM P-R Int : * ms QRS Dur : 82 ms QT Int : 324 ms P-R-T Axes : * -13 -16 degrees QTcB Int : 454 ms Atrial fibrillation with rapid ventricular response with premature ventricular or aberrantly conducted complexes Low voltage QRS Abnormal ECG Confirmed by INOCENTE ROMERO MD ([id number]), publication editor DELORIS MARIE ([id number]) on 10/12/2024 8:21:50 AM Referred By: Lida Blum Confirmed By: INOCENTE ROMERO MD 10/12/24820 Date Inocente Romero MD CC: Dr. Lida Blum MD; Dr. Ruiz Reaves DO; Dr. Chip Arreola MD Signed [facility] 12 Lead EKG [facility] Cardiovascular Services [address] [place] [address] 12 Lead EKG 10/11/24 0848 MR#: [id number] Acct: [id number] Name: KESHA CARMICHAEL Rep #: [id number] : 1945 79 From: Inocente Romero MD Attending Dr: Dr. Lida Blum MD Status: ADM IN Ordering Dr: Ruiz Reaves DO Date: 10/11/24 Location: [facility] Sex: F C Admitted: 10/11/24 Test Reason : CP Blood Pressure : */* mmHG Vent. Rate : 137 BPM Atrial Rate : * BPM P-R Int : * ms QRS Dur : 80 ms QT Int : 278 ms P-R-T Axes : * -8 -20 degrees QTcB Int : 419 ms Atrial fibrillation with rapid ventricular response with premature ventricular or aberrantly conducted complexes Low voltage QRS Nonspecific ST abnormality Abnormal ECG Confirmed by INOCENTE ROMERO MD ([id number]), publication editor DELORIS MARIE ([id number]) on 10/12/2024 8:21:37 AM Referred By: Lida Blum Confirmed By: INOCENTE ROMERO MD 10/12/24820 Date Inocente Romero MD CC: Dr. Lida Blum MD; Dr. Ruiz Reaves DO; Dr. Chip Arreola MD Signed Normal [facility] Absolute lymphocyte countOrd ered By: Ruiz Reaves on 10-11-2024 Lymphocytes Auto (Unsp spec) [#/Vol] 2.46 10*3/uL 0.83-4.51 [facility] Absolute neutrophil countOrd ered By: Ruiz Reaves on 10-11-2024 Neutrophils (Bld) [#/Vol] 5.1 10*3/uL 2.0-7.7 [facility] Activated partial thrombopla stin time (aPTT) in platelet poor plasma by coagulation aOrdered By: Ruiz Reaves on 10-11-2024 aPTT Coag (PPP) [Time] 33.0 s 24.1-36.2 [facility] Anion gap in Serum or Plasma Ordered By: Ruiz Reaves on 10-11-2024 Anion gap [Moles/Vol] 14 mmol/L 5-15 [facility] Automated lymphocyte count a s percentage of total leukocytesOrdered By: Ruiz Reaves on 10-11-2024 Lymphocytes/100 WBC Auto (Unsp spec) 30.4 % 19-41 [facility] BUN/creatinine ratioOrdered By: Ruiz Reaves on 10-11-2024 Urea nitrogen/Creatinine [Mass ratio] 29.1 mg/mg High 10- [facility] Basic Metabolic Profile (BMP )on 10-11-2024 BUN/CRE 29.1 RATIO High [facility] Comment on above: Performed By: #### L 501.9520, L100.0100, L501.5200, L500.2500, L503.7505, L501.4021 ####[facility] [address] [place], [place], [id number] Calcium [Mass/Vol] 9.9 mg/dL Normal 7.6-11.0 [facility] Comment on above: Performed By: #### L 501.9520, L100.0100, L501.5200, L500.2500, L503.7505, L501.4021 ####[facility] [address] [place], [address] Chloride [Moles/Vol] 103 mmol/L Normal 98-108 [facility] Comment on above: Performed By: #### L 501.9520, L100.0100, L501.5200, L500.2500, L503.7505, L501.4021 ####[facility] [address] [place], [address] CO2 [Moles/Vol] 26.7 mmol/L Normal 21.0-32.0 [facility] Comment on above: Performed By: #### L 501.9520, L100.0100, L501.5200, L500.2500, L503.7505, L501.4021 ####[facility] [address] [place], [address] Creatinine [Mass/Vol] 0.92 mg/dL Normal 0.70-1.20 [facility] Comment on above: Performed By: #### L 501.9520, L100.0100, L501.5200, L500.2500, L503.7505, L501.4021 ####[facility] [address] [place], [address] ECRCL 51.74 ml/min Normal 50-250 [facility] Comment on above: Performed By: #### L 501.9520, L100.0100, L501.5200, L500.2500, L503.7505, L501.4021 ####[facility] [address] [place], [address] GAP 14 Normal 5-15 [facility] Comment on above: Performed By: #### L 501.9520, L100.0100, L501.5200, L500.2500, L503.7505, L501.4021 ####[facility] [address] [place], [address] GFR/1.73 sq M.predicted among non-blacks MDRD (S/P/Bld) [Vol rate/Area] 63 mL/min/{1.73_m2} Normal >60 [facility] Comment on above: Result Comment: mL/m in/1.73m2 CKD-EPI Creatinine Equation (2020) Performed By: #### L 501.9520, L100.0100, L501.5200, L500.2500, L503.7505, L501.4021 ####[facility] [address] [place], [address] Glucose [Mass/Vol] 170 mg/dL High 70-99 [facility] Comment on above: Performed By: #### L 501.9520, L100.0100, L501.5200, L500.2500, L503.7505, L501.4021 ####[facility] [address] [place], [address] Potassium [Moles/Vol] 3.8 mmol/L Normal 3.3-5.1 [facility] Comment on above: Performed By: #### L 501.9520, L100.0100, L501.5200, L500.2500, L503.7505, L501.4021 ####[facility] [address] [place], [address] Sodium [Moles/Vol] 143 mmol/L Normal 133-145 [facility] Comment on above: Performed By: #### L 501.9520, L100.0100, L501.5200, L500.2500, L503.7505, L501.4021 ####[facility] [address] [place], [address] Urea nitrogen [Mass/Vol] 27 mg/dL High 4-19 [facility] Comment on above: Performed By: #### L 501.9520, L100.0100, L501.5200, L500.2500, L503.7505, L501.4021 ####[facility] [address] [place], [address] Basophil percentageOrdered B y: Ruiz Reaves on 10-11-2024 Basophils/100 WBC (Bld) 0.5 % 0-1 [facility] CBC W/Diff, Automatedon Absolute Lymph 2.46 X10 3/uL Normal 0.83-4.51 [facility] Comment on above: Performed By: #### L 501.9520, L100.0100, L501.5200, L500.2500, L503.7505, L501.4021 #### [facility] Laboratory [address] [place], [address] Absolute Neut 5.1 X10 3/uL Normal 2.0-7.7 [facility] Comment on above: Performed By: #### L 501.9520, L100.0100, L501.5200, L500.2500, L503.7505, L501.4021 #### [facility] [address] [place], [address] Basophils/100 WBC (Bld) 0.5 % Normal 0-1 [facility] Comment on above: Performed By: #### L 501.9520, L100.0100, L501.5200, L500.2500, L503.7505, L501.4021 #### [facility] [address] [place], [address] Eosinophils/100 WBC (Bld) 0.6 % Normal 0-5 [facility] Comment on above: Performed By: #### L 501.9520, L100.0100, L501.5200, L500.2500, L503.7505, L501.4021 #### [facility] [address] [place], [address] Erythrocyte distribution width (RBC) [Ratio] 12.9 % Normal 11.6-14.6 [facility] Comment on above: Performed By: #### L 501.9520, L100.0100, L501.5200, L500.2500, L503.7505, L501.4021 #### [facility] [address] [place], [address] Hematocrit (Bld) [Volume fraction] 46.2 % Normal 37-47 [facility] Comment on above: Performed By: #### L 501.9520, L100.0100, L501.5200, L500.2500, L503.7505, L501.4021 #### [facility] [address] [place], [address] Hemoglobin (Bld) [Mass/Vol] 14.9 g/dL Normal 12.0-15.0 [facility] Comment on above: Performed By: #### L 501.9520, L100.0100, L501.5200, L500.2500, L503.7505, L501.4021 #### [facility] [address] [place], [address] IG% 0.400 Normal 0.0-0.9 [facility] Comment on above: Result Comment: IG% - Immature Granulocytes (promyelocytes, myelocytes and metamyelocytes) > 1% indicates that a LEFT SHIFT is Present. Performed By: #### L 501.9520, L100.0100, L501.5200, L500.2500, L503.7505, L501.4021 #### [facility] [address] [place], [address] Lymphocytes/100 WBC (Bld) 30.4 % Normal 19-41 [facility] Comment on above: Performed By: #### L 501.9520, L100.0100, L501.5200, L500.2500, L503.7505, L501.4021 #### [facility] [address] [place], [address] MCH (RBC) [Entitic mass] 31.0 pg Normal 27.0-32.0 [facility] Comment on above: Performed By: #### L 501.9520, L100.0100, L501.5200, L500.2500, L503.7505, L501.4021 #### [facility] [address] [place], [address] MCHC (RBC) [Mass/Vol] 32.3 g/dL Normal 32-36 [facility] Comment on above: Performed By: #### L 501.9520, L100.0100, L501.5200, L500.2500, L503.7505, L501.4021 #### [facility] [address] [place], [address] MCV (RBC) [Entitic vol] 96.3 fL Normal 81-99 [facility] Comment on above: Performed By: #### L 501.9520, L100.0100, L501.5200, L500.2500, L503.7505, L501.4021 #### [facility] [address] [place], [address] Monocytes/100 WBC (Bld) 5.7 % Normal 0-10 [facility] Comment on above: Performed By: #### L 501.9520, L100.0100, L501.5200, L500.2500, L503.7505, L501.4021 #### [facility] [address] [place], [address] Neutrophils/100 WBC (Bld) 62.4 % Normal 47-70 [facility] Comment on above: Performed By: #### L 501.9520, L100.0100, L501.5200, L500.2500, L503.7505, L501.4021 #### [facility] [address] [place], [address] Nucleated RBC (Bld) [#/Vol] 0 10*3/uL Normal 0-5 [facility] Comment on above: Performed By: #### L 501.9520, L100.0100, L501.5200, L500.2500, L503.7505, L501.4021 #### [facility] [address] [place], [address] Platelet mean volume (Bld) [Entitic vol] 10.3 fL Normal 6.2-12.0 [facility] Comment on above: Performed By: #### L 501.9520, L100.0100, L501.5200, L500.2500, L503.7505, L501.4021 #### [facility] [address] [place], [address] Platelets (Bld) [#/Vol] 290 10*3/uL Normal 150-450 [facility] Comment on above: Performed By: #### L 501.9520, L100.0100, L501.5200, L500.2500, L503.7505, L501.4021 #### [facility] [address] [place], [address] RBC (Bld) [#/Vol] 4.80 10*6/uL Normal 4.2-5.4 [facility] Comment on above: Performed By: #### L 501.9520, L100.0100, L501.5200, L500.2500, L503.7505, L501.4021 #### [facility] [address] [place], [address] RDW SD 46.0 fl High 35.1-43.9 [facility] Comment on above: Performed By: #### L 501.9520, L100.0100, L501.5200, L500.2500, L503.7505, L501.4021 #### [facility] [address] [place], [address] WBC (Bld) [#/Vol] 8.1 10*3/uL Normal 4.4-11.0 [facility] Comment on above: Performed By: #### L 501.9520, L100.0100, L501.5200, L500.2500, L503.7505, L501.4021 #### [facility] [address] [place], [address] Carbon dioxide, total [Moles /volume] in Central venous bloodOrdered By: Ruiz Reaves on 10-11-2024 CO2 [Moles/Vol] 26.7 mmol/L 21.0-32.0 [facility] Chest PA and Lateralon 10-11 Chest PA and Lateral [facility] Imaging Services [address] [place] [address] Chest PA and Lateral MR#: [id number] Acct: [id number] Name: KESHA CARMICHAEL Rep #: [id number] : 1945 F 79 From: Nj Holland DO PCP: Dr. Chip Arreola MD Status: ADM IN Study: Chest PA and Lateral Date of Exam: 10/11/24 Exam# [id number] Ordering Dr: Ruiz Reaves DO PROCEDURE: CHEST PA AND LATERAL [...] hemidiaphragm, stable since August 2018 Reading Location[facility] CC: Dr. Ruiz Reaves DO; Dr. Chip Arreola MD Senior Structural Engineer: Signed Normal [facility] Chloride assayOrdered By: Andrew Reaves on 10-11-2024 Chloride [Moles/Vol] 103 mmol/L 98-108 [facility] Consultation - Cardiologyon 10-11-2024 Consultation - Cardiology [facility] Medical Records Department [address] [place] [address] Consultation - Cardiology 10/11/24 1301 MR#: [id number] Acct: [id number] Name: KESHA CARMICHAEL Rep #: [id number] : 1945 79 From: Lida Blum MD PCP: Dr. Chip Arreola MD Status:ADM IN Location: [place] [address] Assessment Plan Assessment/Plan (1) Chest pain: (2) Paroxysmal atrial fibrillation: (3) Acute on chronic diastolic (congestive) heart failure: (4) Essential (primary) hypertension: (5) Malignant neoplasm of left breast, estrogen receptor positive: QUALIFIERS: Breast location: 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 Patient sex: female Q ualified Code(s): C50.912 - Malignant neoplasm of unspecified site of left female breast; Z17.0 - Estrogen receptor positive status [ER+] (6) RONALDO (obstructive sleep apnea): PLAN: 79-year-old patient brought to the ED by the EMS With retrosternal chest pain this morning, it happened this morning while she was brushing her teeth she called her neighbor who called the EMS service. Patient has a history of paroxysmal atrial fibrillation and was on treatment with rivaroxaban 20 mg at bedtime She had recently noted epistaxis. Other medical problem include history of RONALDO Diastolic heart failure Symptoms of chest pain described as 7 out of 10 she was not diaphoretic. Resolution of chest pain while in the ED after, with nitroglycerin and will give her IV digoxin 125 mcg To control the ventricular rate. As well a bedside echocardiogram showed segmental wall motion with apical hypokinesia And possible apical thrombus with Definity IV.. Cardiac care plan; Patient presenting with retrosternal chest pain has paroxysmal atrial fibrillation Has change in the EKG, with some ST elevation noted in 1 and aVL with reciprocal change, ST depression in the inferior lead. She is a high risk, for immediate cardiac catheterization as she has epistaxes and she has a elevated INR 2.1 And has been on Xarelto/rivaroxaban 20 mg which she took last night Noted INR elevated to 2.1. Based on the clinical presentation I recommend the following 1. Rate control using calcium channel jarod and beta-jarod 2. Will start on heparin IV and to hold Xarelto/rivaroxaban 3. Will review series of high sensitive troponin initial troponin level within normal 17. 4. Echocardiogram, reviewed in the ED with segmental wall motion abnormality as described apical hypokinesia With question of LV thrombus Patient will require further evaluation during this admission with cardiac catheterization as we will stop the rivaroxaban and continue on heparin and will plan for cardiac catheterization right radial artery approach, tomorrow???Friday By Dr. Romero.. Lida Blum MD,[facility] emergency services professional HPI Consult Data Date of Consult: 10/11/24 HPI Narrative Reason for Consultation: STEMI alert HPI Narrative: KESHA CARMICHAEL, is a 79 F who presents [facility] Medical History Non-rheumatic tricuspid valve insufficiency Paroxysmal atrial fibrillation Acute on chronic diastolic (congestive) heart failure Secondary pulmonary arterial hypertension Essential (primary) hypertension Persistent atrial fibrillation RONALDO (obstructive sleep apnea) Obesity, Class III, BMI 40-49.9 (morbid obesity) Malignant neoplasm of left breast, estrogen receptor positive Type 2 diabetes mellitus Osteoarthritis Migraines Knee pain, chronic Inferior GA Hyperglycemia Epistaxis Home Medications ???Medication ???Instructions ???Recorded ???Last Taken ???Type multivitamin with folic acid 400 1 tab PO DAILY SUPPLEMENT 08/18/17 11/30/18 History mcg tablet omega-3 fatty acids 1,000 mg 2,000 mg PO DAILY supplement 09/0411/30/18 History capsule valsartan 160 mg tablet 160 mg PO DAILY heart 09/04/18 History furosemide 40 mg tablet 40 mg PO DAILY #60 tabs 10/02/18 U nknown Rx rivaroxaban 20 mg tablet 20 mg PO DAILY 11/03/18 11/30/18 H istory metoprolol succinate 25 mg 25 mg PO DAILY 03/25/22 Unknown Hi story tablet,extended release 24 hr metoprolol tartrate 50 mg tablet 50 mg PO DAILY 03/25/22 Unknown Hi story Allergy/AdvReac Type Severity Reaction Status Date / [...] Uterine cancer Sister Breast cancer Aunt Breast c (more content not included)... Normal [facility] Echo Complete W/ Contraston 10-11-2024 Echo Complete W/ Contrast [facility] Cardiovascular Services [address] [place] [address] Echo Complete W/ Contrast 10/11/24 0617 MR#: [id number] Acct: [id number] Name: KESHA CARMICHAEL Rep #: [id number] : 1945 79 From: Inocente Romero MD Attending Dr: Dr. Lida Blum MD Status: ADM IN Ordering Dr: Lida Blum MD Date: 10/11/24 Location: PCU Sex: F C Admitted: 10/11/24 Reason For Study Reason For Study: STEMI Procedure This was a 2D Doppler, Color Flow transthoracic echocardiogram. The study was technically difficult. Contrast injection was performed. Exam performed portable in ED. Left Ventricle Normal LV size. Moderate concentric left ventricular hypertrophy. The left ventricular ejection fraction is 50 %. [place] : Hypokinetic. Right Ventricle Normal RV size. Normal systolic function. Atria Normal left atrium. Normal right atrium. Mitral Valve Normal mitral valve. Tricuspid Valve Normal tricuspid valve. Mild (1+) tricuspid valve insufficiency. Pulmonary artery systolic pressure is 30 mmHg. Aortic Valve Trisinus/trileaflet aortic valve. Mild focal aortic valve calcification. Great Vessels Normal aortic root. The pulmonary artery is normal size. Inferior vena cava collapse with respiration. Pericardium/Pleural No pericardial effusion. Medication Diluted definity 2ml given slow IV push to enhance endocardial definition. MMode/2D Measurements Calculations LVIDd: 3.9 cm IVSd: 1.5 cm Ao root diam: 3.4 cm LVIDs: 2.7 cm LVPWd: 1.4 cm FS: 32.1 % LAV(MOD-bp): 63.3 ml LVAd ap4: 31.3 cm2 SV(MOD-sp4): 51.8 ml LAV(MOD-bp) Indexed: 33.2 ml/m2 LVLd ap4: 7.7 cm SI(MOD-sp4): 27.2 ml/m2 LAV(MOD-sp2): 75.6 ml EDV(MOD-sp4): 103.8 ml LAV(MOD-sp4): 46.3 ml EDV(sp4-el): 108.5 ml LVAs ap4: 20.6 cm2 LVLs ap4: 6.7 cm ESV(MOD-sp4): 51.9 ml ESV(sp4-el): 54.1 ml EF(MOD-sp4): 50.0 % EF(sp4-el): 50.1 % SV(sp4-el): 54.4 ml LA A4 area: 16.9 cm2 LA dimension(2D): 4.8 cm RA A4 area: 13.4 cm2 Time Measurements MV dec time: 0.14 sec Doppler Measurements Calculations MV E max baldomero: 78.1 cm/sec Ao V2 max: 98.8 cm/sec LV V1 max: 81.2 cm/sec Ao max P.9 mmHg LV V1 max P.7 mmHg Ao V2 mean: 68.8 cm/sec LV V1 mean P.5 mmHg Ao mean P.1 mmHg LV V1 mean: 57.7 cm/sec Ao V2 VTI: 16.4 cm LV V1 VTI: 13.9 cm AV (velocity ratio): 0.85 PA V2 max: 81.7 cm/sec TR max baldomero: 254.5 cm/sec PA V2 mean: 62.1 cm/sec TR max P.9 mmHg ECHO/Echo Complete W/ Contrast Interpretation Summary Normal LV size. Moderate concentric left ventricular hypertrophy. The left ventricular ejection fraction is 50 %. [place] : Hypokinetic. Mild (1+) tricuspid valve insufficiency. Pulmonary artery systolic pressure is 30 mmHg. Ordering Physician: Lida Blum Referring Physician: Lida lBum Performed By: Alyson Sifuentes RCS 10/11/24 1632 Date Inocente Romero MD CC: Dr. Lida Blum MD; Dr. Chip Arreola MD Date Dictated: 10/11/24616 Date Transcribed: 10/11/24 1632 Senior Structural Engineer: Signed Normal [facility] Echocardiogram study reportO rdered By: Inocente Romero on 10-11-2024 Study report [facility] Cardiovascular Services [address] [place] [address] Echo Complete W/ Contrast 10/11/24616 MR#: [id number] Acct: [id number] Name: KESHA CARMICHAEL Rep #:[id number] : 1945 79 From: Inocente Fischer Attending Dr: Dr. Lida Blum MD Status: ADM IN Ordering Dr: Lida Blum MD Date: Location: [facility] Sex: F C Admitted: 10/11/24 Reason For Study Reason For Study: STEMI Procedure This was a 2D Doppler, Color Flow transthoracic echocardiogram. The study was technically difficult. Contrast injection was performed. Exam performed portable in ED. Left Ventricle Normal LV size. Moderate concentric left ventricular hypertrophy. The left ventricular ejection fraction is 50 %. [place] : Hypokinetic. Right Ventricle Normal RV size. Normal systolic function. Atria Normal left atrium. Normal right atrium. Mitral Valve Normal mitral valve. Tricuspid Valve Normal tricuspid valve. Mild (1+) tricuspid valve insufficiency. Pulmonary artery systolic pressure is 30 mmHg. Aortic Valve Trisinus/trileaflet aortic valve. Mild focal aortic valve calcification. Great Vessels Normal aortic root. The pulmonary artery is normal size. Inferior vena cava collapse with respiration. Pericardium/Pleural No pericardial effusion. Medication Diluted definity 2ml given slow IV push to enhance endocardial definition. MMode/2D Measurements & Calculations LVIDd: 3.9 cm IVSd: 1.5 cm Ao root diam: 3.4 cm LVIDs: 2.7 cm LVPWd: 1.4 cm FS: 32.1 % ___ LAV(MOD-bp): 63.3 ml LVAd ap4: 31.3 cm2 SV(MOD-sp4): 51.8 ml LAV(MOD-bp) Indexed: 33.2 ml/m2 LVLd ap4: 7.7 cm SI(MOD-sp4): 27.2 ml/m2 LAV(MOD-sp2): 75.6 ml EDV(MOD-sp4): 103.8 ml LAV(MOD-sp4): 46.3 ml EDV(sp4-el): 108.5 ml LVAs ap4: 20.6 cm2 LVLs ap4: 6.7 cm ESV(MOD-sp4): 51.9 ml ESV(sp4-el): 54.1 ml EF(MOD-sp4): 50.0 % EF(sp4-el): 50.1 % SV(sp4-el): 54.4 ml LA A4 area: 16.9 cm2 LA dimension(2D): 4.8 cm RA A4 area: 13.4 cm2 Time Measurements MV dec time: 0.14 sec Doppler Measurements & Calculations MV E max baldomero: 78.1 cm/sec Ao V2 max: 98.8 cm/sec LV V1 max: 81.2 cm/sec Ao max P.9 mmHg LV V1 max P.7 mmHg Ao V2 mean: 68.8 cm/sec LV V1 mean P.5 mmHg Ao mean P.1 mmHg LV V1 mean: 57.7 cm/sec Ao V2 VTI: 16.4 cm LV V1 VTI: 13.9 cm AV (velocity ratio): 0.85 PA V2 max: 81.7 cm/sec TR max baldomero: 254.5 cm/sec PA V2 mean: 62.1 cm/sec TR max P.9 mmHg ECHO/Echo Complete W/ Contrast Interpretation Summary Normal LV size. Moderate concentric left ventricular hypertrophy. The left ventricular ejection fraction is 50 %. [place] : Hypokinetic. Mild (1+) tricuspid valve insufficiency. Pulmonary artery systolic pressure is 30 mmHg. Ordering Physician: Lida Blum Referring Physician: Lida Blum Performed By: Alyson Sifuentes RCS 10/11/24 1632 Date _ Inocente Romero MD CC: Dr. Lida Blum MD; Dr. Chip Arreola MD ~ Date Dictated: 10/11/24616 Date Transcribed: 10/11/24 1632 Senior Structural Engineer: Signed [facility] Work Phone: Emergency Department Summary on 10-11-2024 Emergency Department Summary [facility] Medical Records Department [address] [place] [address] Emergency Department Summary 10/11/24 MR#: [id number] Acct: [id number] Name: KESHA CARMICHAEL Rep #: [id number] : 1945 79 From: Ruiz Reaves DO PCP: Dr. Chip Arreola MD Status:ADM IN Location: ICU ICU-1 HPI History of Present Illness Chief Complaint: Chest Pain Narrative Narrative: Patient is a 79-year-old female past medical history of persistent atrial fibrillation on Xarelto, BMI of 40-49, type 2 diabetes chest pain she rates it a 7 out of 10 in the center of her chest, migraines who presents to the emergency department with a chief complaint of like a elephant is sitting on her chest she states. Per EMS they held off on nitroglycerin as her concern for a softer blood pressure and possibility of inferior wall GA. They held off on aspirin as well and prehospital she was on Xarelto. [facility] Medical History Non-rheumatic tricuspid valve insufficiency Paroxysmal atrial fibrillation Acute on chronic diastolic (congestive) heart failure Secondary pulmonary arterial hypertension Essential (primary) hypertension Persistent atrial fibrillation RONALDO (obstructive sleep apnea) Obesity, Class III, BMI 40-49.9 (morbid obesity) Malignant neoplasm of left breast, estrogen receptor positive Type 2 diabetes mellitus Osteoarthritis Migraines Knee pain, chronic Inferior GA Hyperglycemia Epistaxis Home Medications ???Medication ???Instructions ???Recorded ???Last Taken ???Type multivitamin with folic acid 400 1 tab PO DAILY SUPPLEMENT 08/18/17 11/30/18 History mcg tablet omega-3 fatty acids 1,000 mg 2,000 mg PO DAILY supplement 09/0411/30/18 History capsule valsartan 160 mg tablet 160 mg PO DAILY heart 09/04/18 History furosemide 40 mg tablet 40 mg PO DAILY #60 tabs 10/02/18 U nknown Rx rivaroxaban 20 mg tablet 20 mg PO DAILY 11/03/18 11/30/18 H istory metoprolol succinate 25 mg 25 mg PO DAILY 03/25/22 Unknown Hi story tablet,extended release 24 hr metoprolol tartrate 50 mg tablet 50 mg PO DAILY 03/25/22 Unknown Hi story Allergy/AdvReac Type Severity Reaction Status Date / [...] Patient follow commands that she was at [facility] the year is 2024 Skin: Warm, dry, tact no rashes or lesions noted Const Vital Signs: 10/11/24 08:45 10/11/24 08:51 10/11/24 08:57 Temperature 98.1 F Temperature Source Temporal Pulse Rate 125 H Re (more content not included)... Normal [facility] Eosinophil percentageOrdered By: Ruizpeter Reaves on 10-11-2024 Eosinophils/100 WBC (Bld) 0.6 % 0-5 [facility] Erythrocyte distribution wid th ratioOrdered By: Ruizpeter Reaves on 10-11-2024 Erythrocyte distribution width (RBC) [Ratio] 12.9 % 11.6-14.6 [facility] Erythrocyte distribution wid th standard deviationOrdered By: Ruiz Reaves on 10-11-2024 Erythrocyte distribution width (RBC) [Ratio] 46.0 fl High 35.1-43.9 [facility] Glomerular filtration rate ( GFR) estimation/1.73 sq m using serum, plasma, or whole bOrdered By: Ruiz Reaves on 10-11-2024 GFR/1.73 sq M.predicted among non-blacks MDRD (S/P/Bld) [Vol rate/Area] 63 mL/min/{1.73_m2} >60 [facility] Comment on above: mL/min/1.73m2 CKD-EP I Creatinine Equation (2020) H AND P Exam - [facility]iston 10-11-2024 H&P Exam - Hospitalist [facility] Medical Records Department [address] [place] [address] H P Exam - Hospitalist 10/11/24 1026 MR#: [id number] Acct: [id number] Name: KESHA CARMICHAEL Rep #: [id number] : 1945 79 From: Dayanna Miranda DO PCP: Dr. Chip Arreola MD Status:ADM IN Location: ICU ICU05- HPI - General General Date of Admission: 10/11/24 Date of Service: 10/11/24 Chief Complaint: Chest pain HPI Narrative KESHA CARMICHAEL, is a 79 F who presents with epistaxis and chest pain. This is an 79-year-old male who has a history of A-fib on rivaroxaban presents with epistaxis. Patient was also having midsternal, nonradiating chest pain. Spoke with her neighbor who called 911 and patient was brought here. Patient was called as a STEMI alert and was seen by cardiology who rescinded the STEMI alert and admission. Patient was noted to be in A-fib with RVR and did receive a dose of 125 mcg of digoxin. Patient had an [...] heart rate is fast all the time. [facility] Medical History Non-rheumatic tricuspid valve insufficiency Paroxysmal atrial fibrillation Acute on chronic diastolic (congestive) heart failure Secondary pulmonary arterial hypertension Essential (primary) hypertension Persistent atrial fibrillation RONALDO (obstructive sleep apnea) Obesity, Class III, BMI 40-49.9 (morbid obesity) Malignant neoplasm of left breast, estrogen receptor positive Type 2 diabetes mellitus Osteoarthritis Migraines Knee pain, chronic Inferior GA Hyperglycemia Epistaxis Home Medications ???Medication ???Instructions ???Recorded ???Last Taken ???Type multivitamin with folic acid 400 1 tab PO DAILY SUPPLEMENT 08/18/17 11/30/18 History mcg tablet omega-3 fatty acids 1,000 mg 2,000 mg PO DAILY supplement 09/0411/30/18 History capsule valsartan 160 mg tablet 160 mg PO DAILY heart 09/04/18 History furosemide 40 mg tablet 40 mg PO DAILY #60 tabs 10/02/18 U nknown Rx rivaroxaban 20 mg tablet 20 mg PO DAILY 11/03/18 11/30/18 H istory metoprolol succinate 25 mg 25 mg PO DAILY 03/25/22 Unknown Hi story tablet,extended release 24 hr metoprolol tartrate 50 mg tablet 50 mg PO DAILY 03/25/22 Unknown Hi story Allergy/AdvReac Type Severity Reaction Status Date / [...] 171/121 H Blood Pressure Mean 120 137 Pul (more content not included)... Normal [facility] Hematocrit Auto (Bld) [Volum e fraction]Ordered By: Ruiz Reaves on 10-11-2024 Hematocrit (Bld) [Volume fraction] 46.2 % 37-47 [facility] Hemoglobin measurementOrdere d By: Ruiz Reaves on 10-11-2024 Hemoglobin (Bld) [Mass/Vol] 14.9 g/dL 12.0-15.0 [facility] Immature granulocytes/100 WB C Auto (Bld)Ordered By: Ruiz Reaves on 10-11-2024 Immature granulocytes/100 WBC (Bld) 0.400 % 0.0-0.9 [facility] Comment on above: IG% - Immature Granu locytes (promyelocytes, myelocytes and metamyelocytes) > 1% indicates that a LEFT SHIFT is Present. International normalized rat io (INR) calculationOrdered By: Ruiz Reaves on 10-11-2024 INR Coag (Bld) [Relative time] 2.1 {INR} [facility] L499.0042on 10-11-2024 Trop T High Sen 151 ng/L Invalid Interpretation Code <=14 [facility] Comment on above: Result Comment: Crit ical Result(s) Called at:10-11-24 12:53 TO AMALIA RILEY by:??ANDREAS MENSAH Results read back by same. Performed By: #### L 499.0042 #### [facility] Laboratory [address] [place], [place], [address] L499.0043on 10-11-2024 Trop T High Sen 323 ng/L Invalid Interpretation Code <=14 [facility] Comment on above: Result Comment: Crit ical Result(s) Called at: 14:30 TO MARYBETH SALDANA by: ANDREAS MENSAH??Results read back by same. Performed By: #### L 499.0043 ####[facility] [address] [place], [address] L501.4021on 10-11-2024 Trop T High Sen 17 ng/L High <=14 [facility] Comment on above: Performed By: #### L 501.9520, L100.0100, L501.5200, L500.2500, L503.7505, L501.4021 ####[facility] [address], [address] L503.7505on 10-11-2024 Natriuretic peptide B (Bld) [Mass/Vol] 1553 pg/mL Normal <=1800 [facility] Comment on above: Result Comment: Hear t Failure Unlikely: < 300 pg/mL Heart Failure Likely < 50 Years: > 450 pg/mL 50-75 Years: > 900 pg/mL >75 Years: > 1800 pg/mL Performed By: #### L 501.9520, L100.0100, L501.5200, L500.2500, L503.7505, L501.4021 ####[facility] [address] [place], [address] MCV (mean corpuscular volume ) determinationOrdered By: Ruiz Reaves on 10-11-2024 MCV (RBC) [Entitic vol] 96.3 fL 81-99 [facility] Magnesiumon 10-11-2024 Magnesium [Mass/Vol] 2.4 mg/dL High 1.5-2.2 [facility] Comment on above: Performed By: #### L 501.9520, L100.0100, L501.5200, L500.2500, L503.7505, L501.4021 ####[facility] [address] [place], [address] Magnesium measurement (mass/ volume)Ordered By: Ruiz Reaves on 10-11-2024 Magnesium (Unsp spec) [Mass/Vol] 2.4 mg/dL High 1.5-2.2 [facility] Mean corpuscular hemoglobin (MCH) determinationOrdered By: Ruiz Reaves on 10-11-2024 MCH (RBC) [Entitic mass] 31.0 pg 27.0-32.0 [facility] Mean corpuscular hemoglobin concentration (MCHC) determinationOrdered By: Ruiz Reaves on 10-11-2024 MCHC (RBC) [Mass/Vol] 32.3 g/dL 32-36 [facility] Mean platelet volume determi nationOrdered By: Ruiz Reaves on 10-11-2024 Platelet mean volume (Bld) [Entitic vol] 10.3 fL 6.2-12.0 [facility] Monocyte percentageOrdered B y: Ruiz Reaves on 10-11-2024 Monocytes/100 WBC (Bld) 5.7 % 0-10 [facility] Natriuretic peptide.B prohor waldo N-Terminal [Mass/volume] in Serum or PlasmaOrdered By: Ruiz Reaves on 10-11-2024 Natriuretic peptide.B prohormone N-Terminal [Mass/Vol] 1553 pg/mL <1800 [facility] Comment on above: Heart Failure Unlike ly: < 300 pg/mLHeart Failure Likely< 50 Years: > 450 pg/mL50-75 Years: > 900 pg/mL>75 Years: > 1800 pg/mL Neutrophil percentageOrdered By: Ruiz Reaves on 10-11-2024 Neutrophils/100 WBC (Bld) 62.4 % 47-70 [facility] Nucleated red blood cell per centageOrdered By: Ruiz Reaves on 10-11-2024 Nucleated RBC/100 WBC (Bld) [Ratio] 0 % 0-5 [facility] Partial Thromboplast Timeon 10-11-2024 aPTT Coag (Bld) [Time] 79.6 s High 24.1-36.2 [facility] Comment on above: Performed By: #### L 300.4310 ####[facility] [address] [place], [place], [id number] aPTT Coag (Bld) [Time] 33.0 s Normal 24.1-36.2 [facility] Comment on above: Performed By: #### L 300.4310, L300.3900 #### [facility] [address] [place], [address] Platelet countOrdered By: Andrew Reaves on 10-11-2024 Platelets (Bld) [#/Vol] 290 10*3/uL 150-450 [facility] Potassium measurement (mass/ volume)Ordered By: Ruiz Reaves on 10-11-2024 Potassium (Unsp spec) [Mass/Vol] 3.8 mmol/L 3.3-5.1 [facility] Prothrombin Time w/INRon INR Coag (PPP) [Relative time] 2.1 {INR} Normal [facility] Comment on above: Performed By: #### L 300.4310, L300.3900 #### [facility] [address] [place], [address] PT Coag (PPP) [Time] 23.6 s High 11.7-14.9 [facility] Comment on above: Performed By: #### L 300.4310, L300.3900 #### [facility] [address] [place], [address] Prothrombin timeOrdered By: Ruiz Reaves on 10-11-2024 PT Coag (PPP) [Time] 23.6 s High 11.7-14.9 [facility] RBC Auto (Bld) [#/Vol]Ordere d By: Ruiz Reaves on 10-11-2024 RBC (Bld) [#/Vol] 4.80 10*6/uL 4.2-5.4 [facility] Serum creatinine measurement (mass/volume)Ordered By: Ruiz Reaves on 10-11-2024 Creatinine [Mass/Vol] 0.92 mg/dL 0.70-1.20 [facility] Serum glucose measurement (m ass/volume)Ordered By: Ruiz Reaves on 10-11-2024 Glucose [Mass/Vol] 170 mg/dL High 70-99 [facility] Serum or plasma calcium shubham urement (mass/volume)Ordered By: Ruiz Reaves on 10-11-2024 Calcium [Mass/Vol] 9.9 mg/dL 7.6-11.0 [facility] Serum or plasma urea nitroge n measurement (mass/volume)Ordered By: Ruiz Reaves on 10-11-2024 Urea nitrogen [Mass/Vol] 27 mg/dL High 4-19 [facility] Sodium levelOrdered By: Becca Reaves on 10-11-2024 Sodium [Moles/Vol] 143 mmol/L 133-145 [facility] TSH DL <= 0.005 mIU/L QnOrde red By: Ruiz Reaves on 10-11-2024 TSH Qn 2.520 uIU/mL 0.300-4.200 [facility] Thyroid Stim Hormone (TSH)on 10-11-2024 TSH 2.520 uIU/mL Normal 0.300-4.200 [facility] Comment on above: Performed By: #### L 501.9520, L100.0100, L501.5200, L500.2500, L503.7505, L501.4021 ####[facility] [address] [place], [address] Troponin T.cardiac [Mass/vol ume] in Serum or Plasma by High sensitivity methodOrdered By: Ruiz Reaves on 10-11-2024 Troponin T.cardiac High sensitivity method [Mass/Vol] 323 ng/L High <14 [facility] Comment on above: Critical Result(s) C alled at: 14:30 TO MARYBETH SALDANA by: ANDREAS MENSAH Results read back by same. Troponin T.cardiac High sensitivity method [Mass/Vol] 151 ng/L High <14 [facility] Comment on above: Critical Result(s) C alled at:10-11-24 12:53 TO AMALIA RILEY by: ANDREAS MENSAH Results read back by same. Troponin T.cardiac High sensitivity method [Mass/Vol] 17 ng/L High <14 [facility] White blood cell (WBC) count Ordered By: Ruiz Reaves on 10-11-2024 WBC (Bld) [#/Vol] 8.1 10*3/uL 4.4-11.0 [facility] CNOVon 10-07-2024 CNOV Office Visit (ORTHMN ) KESHA CARMICHAEL ([id number]) 1945 F Date Time Provider Department 10/07/24 8:40 AM DOMINGA REESE During your visit today, we recorded the following information about you: Dominga Reese PA-C 10/07/2024 9:15 AM Signed [facility] NOTE Department of Orthopaedics Dayanna Lewis M.D. NAME: Kesha Carmichael CLINIC NO.: [id number] DATE: October 07, 2024 Kesha returns for [...] result) Impression: IMPRESSION: Degenerative changes as described. Senior Structural Engineer: RG Transcribe Date/Time: Jun 22 2024 8:45P... XR SHOULDER GENERAL 3V OR MORE AP/TRUE AP/OTHER RIGHT Exam End: 06/18/2024 1:23 PM (Final result) Impression: IMPRESSION: Degenerative changes as described. Senior Structural Engineer: RG Transcribe Date/Time: Jun 22 2024 8:45P... [...] these instructions. Informed Consent Consent Obtained: Verbal [place] Protocol A moment to CARE was completed. [...] PA-C 10/07/2024 9:15 AM Signed Dominga Lewis [phone] (Chantal-Jack Prizer) You may do the [place] 6 exercises: Rows, Biceps Curls, Triceps, Shrugs, Free weights up overhead AND Close contract technical writer pull downs. Avoid these exercises: Flys, seated [...] [M75.101, M12.811] Order(s):Large Joint Arthro/Inj: bilateral glenohumerals [NLP541] Order #: [id number] [] lidocaine (PF) 10 mg/mL (1 %) 4 mL injection (XYLOCAINE)Disp: Rfl: [] lidocaine (PF) 10 mg/mL (1 %) 4 mL injection (XYLOCAINE)Disp: Rfl: [] triamcinolone acetonide 40 mg injection (KeNALog 40)Disp: Rfl: [] triamcinolone acetonide 40 mg injectio (more content not included)... Normal [facility] Large Joint Arthro/Inj: bila teral glenohumeralson 10-07-2024 Dominga Reese PA -C 10/07/2024 9:15 AM Large Joint Arthro/Inj: bilateral [...] these instructions. Informed Consent Consent Obtained: Verbal [place] Protocol A moment to CARE was completed. [...] implant(s) inserted. SIGN OUT No specimen collected. [facility] 25(OH)D3 SerPl-mCncon 2024 25-hydroxyvitamin D3 [Mass/Vol] 29.6 ng/mL Low 31.0-80.0 [facility] Comment on above: Order Comment: Speci men Type: BLOOD SPECIMENOrdering Facility: [facility] Address: [address] [place] [address] Result Comment: Clas sification of 25 [place] Vitamin D status: Deficiency/Insufficiency: < or = 30 ng/ml. Sufficiency/Optimal Levels: 31-80 ng/mL Toxicity: > 100 ng/mL. Test performed by chemiluminescent immunoassay. Performed By: #### 1 989-3 ####[facility] LABCLIA [id number] [place] [address] [place] 25-hydroxyvitamin D3 [Mass/V ol]on 10-04-2024 Interpretation and review of laboratory results Abnormal [facility] The reference range interval was based on an analysis of samples from healthy adults and may not pertain to children from 0-18 years old. [facility] CBC W Auto Differential pane l (Bld)on 10-04-2024 Basophils (Bld) [#/Vol] 0.06 10*3/uL [facility] Basophils/100 WBC (Bld) 1 % [facility] Differential cell count method Nom (Bld) Auto [facility] Eosinophils (Bld) [#/Vol] 0.24 10*3/uL [facility] Eosinophils/100 WBC (Bld) 3.8 % [facility] Erythrocyte distribution width (RBC) [Ratio] 13.2 % 11.5 - 15.0 % [facility] Hematocrit (Bld) [Volume fraction] 44.4 % 36.0 - 46.0 % [facility] Hemoglobin (Bld) [Mass/Vol] 13.9 g/dL 11.5 - 15.5 g/dL [facility] Immature granulocytes (Bld) [#/Vol] [facility] Immature granulocytes/100 WBC (Bld) 0.3 % [facility] Lymphocytes (Bld) [#/Vol] 1.64 10*3/uL [facility] Lymphocytes/100 WBC (Bld) 26.2 % [facility] MCH (RBC) [Entitic mass] 31.2 pg 26.0 - 34.0 pg [facility] MCHC (RBC) [Mass/Vol] 31.3 g/dL 30.5 - 36.0 g/dL [facility] MCV (RBC) [Entitic vol] 99.6 fL 80.0 - 100.0 fL [facility] Monocytes (Bld) [#/Vol] 0.42 10*3/uL [facility] Monocytes/100 WBC (Bld) 6.7 % [facility] Neutrophils (Bld) [#/Vol] 3.89 10*3/uL [facility] Neutrophils/100 WBC (Bld) 62 % [facility] Nucleated RBC (Bld) [#/Vol] [facility] Nucleated RBC/100 WBC (Bld) [Ratio] 0 % /100 WBC [facility] Platelet mean volume (Bld) [Entitic vol] 11.1 fL 9.0 - 12.7 fL [facility] Platelets (Bld) [#/Vol] 259 10*3/uL [facility] RBC (Bld) [#/Vol] 4.46 10*6/uL 3.90 - 5.2 0 m/uL [facility] WBC (Bld) [#/Vol] 6.27 10*3/uL [facility] Basophils (Bld) [#/Vol] 0.06 10*3/uL Normal <0.11 [facility] Comment on above: Order Comment: Speci men Type: BLOOD SPECIMENOrdering Facility: [facility] Address: [address] [place] [address] Performed By: #### 5 7021-8 ####[facility] LABCLIA [id number] [address] [place] Basophils/100 WBC (Bld) 1.0 % Normal [facility] Comment on above: Order Comment: Speci men Type: BLOOD SPECIMENOrdering Facility: [facility] Address: [address] [place] [address] Performed By: #### 5 7021-8 ####[facility] LABCLIA [id number] [place] [address] [place] Differential cell count method Nom (Bld) Auto Normal [facility] Comment on above: Order Comment: Speci men Type: BLOOD SPECIMENOrdering Facility: [facility] Address: [address] [place] [address] Performed By: #### 5 7021-8 ####[facility] LABCLIA [id number] [place] [address] [place] Eosinophils (Bld) [#/Vol] 0.24 10*3/uL Normal <0.46 [facility] Comment on above: Order Comment: Speci men Type: BLOOD SPECIMENOrdering Facility: [facility] Address: [address] [place] [address] Performed By: #### 5 7021-8 ####[facility] LABCLIA [id number] [place] [address] [place] Eosinophils/100 WBC (Bld) 3.8 % Normal [facility] Comment on above: Order Comment: Speci men Type: BLOOD SPECIMENOrdering Facility: [facility] Address: [address] [place] [address] Performed By: #### 5 7021-8 ####[facility] LABCLIA [id number] [place] [address] [place] Erythrocyte distribution width (RBC) [Ratio] 13.2 % Normal 11.5-15.0 [facility] Comment on above: Order Comment: Speci men Type: BLOOD SPECIMENOrdering Facility: [facility] Address: [address] [place] [address] Performed By: #### 5 7021-8 ####[facility] LABCLIA [id number] [place] [address] [place] Hematocrit (Bld) [Volume fraction] 44.4 % Normal 36.0-46.0 [facility] Comment on above: Order Comment: Speci men Type: BLOOD SPECIMENOrdering Facility: [facility] Address: [address] [place] [address] Performed By: #### 5 7021-8 ####[facility] LABCLIA [id number] [place] [address] [place] Hemoglobin (Bld) [Mass/Vol] 13.9 g/dL Normal 11.5-15.5 [facility] Comment on above: Order Comment: Speci men Type: BLOOD SPECIMENOrdering Facility: [facility] Address: [address] [place] [address] Performed By: #### 5 7021-8 ####[facility] LABCLIA [id number] [place] [address] [place] Immature granulocytes (Bld) [#/Vol] 10*3/uL Normal <0.10 [facility] Comment on above: Order Comment: Speci men Type: BLOOD SPECIMENOrdering Facility: [facility] Address: [address] [place] [address] Performed By: #### 5 7021-8 ####[facility] LABCLIA [id number] [place] [address] [place] Immature granulocytes/100 WBC (Bld) 0.3 % Normal [facility] Comment on above: Order Comment: Speci men Type: BLOOD SPECIMENOrdering Facility: [facility] Address: [address] [place] [address] Performed By: #### 5 7021-8 ####[facility] LABCLIA [id number] [place] [address] [place] Lymphocytes (Bld) [#/Vol] 1.64 10*3/uL Normal 1.00-4.00 [facility] Comment on above: Order Comment: Speci men Type: BLOOD SPECIMENOrdering Facility: [facility] Address: [address] [place] [address] Performed By: #### 5 7021-8 ####[facility] LABIA [id number] [place] [address] [place] Lymphocytes/100 WBC (Bld) 26.2 % Normal [facility] Comment on above: Order Comment: Speci men Type: BLOOD SPECIMENOrdering Facility: [facility] Address: [address] [place] [address] Performed By: #### 5 7021-8 ####[facility] LABIA [id number] [place] [address] [place] MCH (RBC) [Entitic mass] 31.2 pg Normal 26.0-34.0 [facility] Comment on above: Order Comment: Speci men Type: BLOOD SPECIMENOrdering Facility: [facility] Address: [address] [place] [address] Performed By: #### 5 7021-8 ####[facility] LABIA [id number] [place] [address] [place] MCHC (RBC) [Mass/Vol] 31.3 g/dL Normal 30.5-36.0 [facility] Comment on above: Order Comment: Speci men Type: BLOOD SPECIMENOrdering Facility: [facility] Address: [address] [place] [address] Performed By: #### 5 7021-8 ####[facility] LABIA [id number] [place] [address] [place] MCV (RBC) [Entitic vol] 99.6 fL Normal 80.0-100.0 [facility] Comment on above: Order Comment: Speci men Type: BLOOD SPECIMENOrdering Facility: [facility] Address: [address] [place] [address] Performed By: #### 5 7021-8 ####[facility] LABCLIA [id number] [facility] [address] [place] [address] [place] Monocytes (Bld) [#/Vol] 0.42 10*3/uL Normal <0.87 [facility] Comment on above: Order Comment: Speci men Type: BLOOD SPECIMENOrdering Facility: [facility] Address: [address] [place] [address] Performed By: #### 5 7021-8 ####[facility] LABCLIA [id number] [facility] [address], [facility] [place] Monocytes/100 WBC (Bld) 6.7 % Normal [facility] Comment on above: Order Comment: Speci men Type: BLOOD SPECIMENOrdering Facility: [facility] Address: [address] [place] [address] Performed By: #### 5 7021-8 ####[facility] LABCLIA [id number] [facility] [address], [place] [address] [place] Neutrophils (Bld) [#/Vol] 3.89 10*3/uL Normal 1.45-7.50 [facility] Comment on above: Order Comment: Speci men Type: BLOOD SPECIMENOrdering Facility: [facility] Address: [address] [place] [address] Performed By: #### 5 7021-8 ####[facility] LABCLIA [id number] [facility] [address], [facility] [place] Neutrophils/100 WBC (Bld) 62.0 % Normal [facility] Comment on above: Order Comment: Speci men Type: BLOOD SPECIMENOrdering Facility: [facility] Address: [address] [place] [address] Performed By: #### 5 7021-8 ####[facility] LABCLIA [id number] [address], [facility] [place] Nucleated RBC (Bld) [#/Vol] 10*3/uL Normal <0.01 [facility] Comment on above: Order Comment: Speci men Type: BLOOD SPECIMENOrdering Facility: [facility] Address: [address] [place] [address] Performed By: #### 5 7021-8 ####[facility] LABIA [id number] [address] [address] [place] Nucleated RBC/100 WBC (Bld) [Ratio] 0.0 /100 WBC Normal [facility] Comment on above: Order Comment: Speci men Type: BLOOD SPECIMENOrdering Facility: [facility] Address: [address] [place] [address] Performed By: #### 5 7021-8 ####[facility] LABIA [id number] [place] [address] [place] Platelet mean volume (Bld) [Entitic vol] 11.1 fL Normal 9.0-12.7 [facility] Comment on above: Order Comment: Speci men Type: BLOOD SPECIMENOrdering Facility: [facility] Address: [address] [place] [address] Performed By: #### 5 7021-8 ####[facility] LABIA [id number] [place] [address] [place] Platelets (Bld) [#/Vol] 259 10*3/uL Normal 150-400 [facility] Comment on above: Order Comment: Speci men Type: BLOOD SPECIMENOrdering Facility: [facility] Address: [address] [place] [address] Performed By: #### 5 7021-8 ####[facility] LABIA [id number] [place] [address] [place] RBC (Bld) [#/Vol] 4.46 10*6/uL Normal 3.90-5.20 [facility] Comment on above: Order Comment: Speci men Type: BLOOD SPECIMENOrdering Facility: [facility] Address: [address] [place] [address] Performed By: #### 5 7021-8 ####[facility] LABCLIA [id number] [place] [id number] [place] WBC (Bld) [#/Vol] 6.27 10*3/uL Normal 3.70-11.00 [facility] Comment on above: Order Comment: Speci men Type: BLOOD SPECIMENOrdering Facility: [facility] Address: [address] [place] [place] [id number] Performed By: #### 5 7021-8 ####[facility] LABCLIA [id number] [place] [id number] [facility] CNOVon 10-04-2024 CNOV Office Visit (FAMPWS ) KESHA CARMICHAEL ([id number]) 1945 F Date Time Provider Department 10/04/24 10:20 AM [facility] During your visit today, we recorded the following information about you: Pulse Blood pressure Weight 91/minute 114/40 94.8 kg Belkys Mcintyre, BOOK EDITOR.[facility] 10/04/2024 10:41 AM Signed This is [...] HISTORY Diagnosis Date Abnormal EKG afib, inf [place] age undetermined Atrial fibrillation (HCC) Breast cancer [...] complication, without long-term current use of insulin ([facility]) 04/11/2016 PAST SURGICAL HISTORY Procedure Laterality Date [...] W/WO RMVL TUBE OVARY 1975 Hysterectomy, DANYELLE ALLERGIES Adhesive Tape-Silicones, Anastrozole, Aquacel-Ag [...] 1 tablet by mouth once daily. vit C,M-Am-bwbvq-lutein-ze axan (PRESERVISION AREDS-2) 250-90-40-1 mg Take 1 capsule [...] Mother Hypertension Mother Hypertension Father Heart Father GA Diabetes Father Kidney Disease Sister Heart disease Sister Cancer Sister breast COPD Sister Hypertension Sister Macular Degen Sister Stroke Sister mini strokes Arthritis Sister Cancer Sister breast Hypertension Sister Macular Degen Sister Diabetes Sister Tremor Sister H (more content not included)... Normal [facility] Calcium.ionized [Moles/Vol]o n 10-04-2024 Calcium.ionized (Bld) [Mass/Vol] 1.26 mmol/L 1.08 - 1.30 mmol/L [facility] Calcium.ionized adjusted to pH 7.4 (Bld) [Moles/Vol] 1.26 mmol/L 1.08 - 1.30 mmol/L [facility] Interpretation and review of laboratory results Normal [facility] Calcium.ionized (Bld) [Mass/Vol] 1.26 mmol/L Normal 1.08-1.30 [facility] Comment on above: Order Comment: Speci men Type: BLOOD SPECIMENOrdering Facility: [facility] Address: [address] [place] [id number] Performed By: #### 1 995-0 ####[facility] LABCLIA [id number] [address] [place] Calcium.ionized adjusted to pH 7.4 (Bld) [Moles/Vol] 1.26 mmol/L Normal 1.08-1.30 [facility] Comment on above: Order Comment: Speci men Type: BLOOD SPECIMENOrdering Facility: [facility] Address: [address] [place] [address] Performed By: #### 1 995-0 ####[facility] LABCLIA [id number] [place] [address] [place] Comprehensive metabolic 2000 panelon 10-04-2024 Albumin [Mass/Vol] 4.2 g/dL 3.9 - 4.9 g/dL [facility] ALP [Catalytic activity/Vol] 71 U/L 34 - 123 U/L [facility] ALT [Catalytic activity/Vol] 20 U/L 7 - 38 U/L [facility] Anion gap [Moles/Vol] 12 mmol/L 8 - 15 mmol/L [facility] AST [Catalytic activity/Vol] 22 U/L 13 - 35 U/L [facility] Bilirubin [Mass/Vol] 0.5 mg/dL 0.2 - 1 .3 mg/dL [facility] Calcium [Mass/Vol] 9.6 mg/dL 8.5 - 10. 2 mg/dL [facility] Chloride [Moles/Vol] 103 mmol/L 98 - 10 7 mmol/L [facility] CO2 [Moles/Vol] 28 mmol/L 22 - 30 mmol/L [facility] Creatinine [Mass/Vol] 0.84 mg/dL 0.58 - 0.96 mg/dL [facility] GFR/1.73 sq M.predicted among non-blacks MDRD (S/P/Bld) [Vol rate/Area] 70 mL/min/{1.73_m2} - PINF [facility] Comment on above: Estimated Glomerular Filtration [...] 117 mg/dL High 74 - 99 mg/dL [facility] Comment on above: The [place] [employer] Association (ADA) provides guidance for [...] Standards of Medical Care in Diabetes 2016, [place] [employer]. Diabetes Care. 2016.39(Suppl 1). Potassium [Moles/Vol] 3.8 mmol/L 3.7 - 5.1 mmol/L [facility] Protein [Mass/Vol] 6.4 g/dL 6.3 - 8.0 g/dL [facility] Sodium [Moles/Vol] 143 mmol/L 136 - 144 mmol/L [facility] Urea nitrogen [Mass/Vol] 21 mg/dL 7 - 21 mg/dL [facility] Albumin [Mass/Vol] 4.2 g/dL Normal 3.9-4.9 [facility] Comment on above: Order Comment: Ashley davey Type: BLOOD SPECIMENOrdering Facility: [facility] Address: [address] [place] [address] Performed By: #### 2 4323-8, 28280-4, 2731-8 ####[facility] LABCLIA [id number] [place] [address] [place] ALP [Catalytic activity/Vol] 71 U/L Normal 34-123 [facility] Comment on above: Order Comment: Alli men Type: BLOOD SPECIMENOrdering Facility: [facility] Address: [address] [place] [address] Performed By: #### 2 4323-8, 92178-5, 2730-11 ####[facility] LABCLIA [id number] [address] [address] [place] ALT [Catalytic activity/Vol] 20 U/L Normal 7-38 [facility] Comment on above: Order Comment: Speci men Type: BLOOD SPECIMENOrdering Facility: [facility] Address: [address] [place] [address] Performed By: #### 2 4323-8, , 2730-11 ####[facility] LABCLIA [id number] [address] [address] [place] Anion gap [Moles/Vol] 12 mmol/L Normal 8-15 [facility] Comment on above: Order Comment: Speci men Type: BLOOD SPECIMENOrdering Facility: [facility] Address: [address] [place] [address] Performed By: #### 2 432-8, , 2730-11 ####[facility] LABIA [id number] [address] [address] [place] AST [Catalytic activity/Vol] 22 U/L Normal 13-35 [facility] Comment on above: Order Comment: Speci men Type: BLOOD SPECIMENOrdering Facility: [facility] Address: [address] [place], [place] [address] Performed By: #### 2 4323-8, , 2730-11 ####[facility] LABIA [id number] [address] [address] [place] Bilirubin [Mass/Vol] 0.5 mg/dL Normal 0.2-1.3 [facility] Comment on above: Order Comment: Speci men Type: BLOOD SPECIMENOrdering Facility: [facility] Address: [address] [place], [place] [address] Performed By: #### 2 4323-8, , 2730-11 ####[facility] LABCLIA [id number] [address] [address] [place] Calcium [Mass/Vol] 9.6 mg/dL Normal 8.5-10.2 [facility] Comment on above: Order Comment: Speci men Type: BLOOD SPECIMENOrdering Facility: [facility] Address: [address] [place], [place] [address] Performed By: #### 2 4323-8, , 2730-11 ####[facility] LABCLIA [id number] [address] [address] [place] Chloride [Moles/Vol] 103 mmol/L Normal 98-107 [facility] Comment on above: Order Comment: Speci men Type: BLOOD SPECIMENOrdering Facility: [facility] Address: [address] [place] [address] Performed By: #### 2 432-8, , 2730-11 ####[facility] LABCLIA [id number] [address] [address] [place] CO2 [Moles/Vol] 28 mmol/L Normal 22-30 [facility] Comment on above: Order Comment: Speci men Type: BLOOD SPECIMENOrdering Facility: [facility] Address: [address] [place], [place] [address] Performed By: #### 2 4323-8, , 2730-11 ####[facility] LABCLIA [id number] [facility] [address] [address] [place] Creatinine [Mass/Vol] 0.84 mg/dL Normal 0.58-0.96 [facility] Comment on above: Order Comment: Speci men Type: BLOOD SPECIMENOrdering Facility: [facility] Address: [address] [place] [address] Performed By: #### 2 4323-8, , 2730-11 ####[facility] LABCLIA [id number] [place] [id number] [place] [facility] Creatinine and Glomerular filtration rate.predicted panel (S/P/Bld) 70 mL/min/1.73m??? Normal >=60 [facility] Comment on above: Order Comment: Ashley davey Type: BLOOD SPECIMENOrdering Facility: [facility] Address: [address] [place] [address] Result Comment: Rashida mated Glomerular Filtration Rate [...] actual GFR. Performed By: #### 2 4323-8, , 2730-11 ####[facility] LABCLIA [id number] [place] [id number] [place] [facility] Glucose [Mass/Vol] 117 mg/dL High 74-99 [facility] Comment on above: Order Comment: Ashley davey Type: BLOOD SPECIMENOrdering Facility: [facility] Address: [address] [place] [address] Result Comment: The [place] Diabetes Association (ADA) provides guidance for cutoff [...] Standards of Medical Care in Diabetes 2016, [place] [employer]. Diabetes Care. 2016.39(Suppl 1). Performed By: #### 2 4323-8, 71055-3, 2730-11 ####[facility] LABCLIA [id number] [address] [address] [place] Potassium [Moles/Vol] 3.8 mmol/L Normal 3.7-5.1 [facility] Comment on above: Order Comment: Speci men Type: BLOOD SPECIMENOrdering Facility: [facility] Address: [address] [place], [place] [address] Performed By: #### 2 4323-8, 37763-8, 2730-11 ####[facility] LABCLIA [id number] [place] [address] [place] Protein [Mass/Vol] 6.4 g/dL Normal 6.3-8.0 [facility] Comment on above: Order Comment: Speci men Type: BLOOD SPECIMENOrdering Facility: [facility] Address: [address] [place] [address] Performed By: #### 2 4323-8, , 2730-11 ####[facility] LABCLIA [id number] [place] [address] [place] Sodium [Moles/Vol] 143 mmol/L Normal 136-144 [facility] Comment on above: Order Comment: Speci men Type: BLOOD SPECIMENOrdering Facility: [facility] Address: [address] [place] [address] Performed By: #### 2 4323-8, , 2730-11 ####[facility] LABCLIA [id number] [place] [address] [place] Urea nitrogen [Mass/Vol] 21 mg/dL Normal 7-21 [facility] Comment on above: Order Comment: Speci men Type: BLOOD SPECIMENOrdering Facility: [facility] Address: [address] [place] [address] Performed By: #### 2 4323-8, 58115-0, 2730-11 ####[facility] LABCLIA [id number] [address] [address] [place] MAGNESIUMon 06-30-2025 Magnesium [Mass/Vol] 2.1 mg/dL 1.7 - 2 .3 mg/dL [facility] Magnesium SerPl-mCncon 10-04 Magnesium [Mass/Vol] 2.1 mg/dL Normal 1.7-2.3 [facility] Comment on above: Order Comment: Alli men Type: BLOOD SPECIMENOrdering Facility: [facility] Address: [address] [place] [address] Performed By: #### 2 4323-8, , 2730-11 ####[facility] LABCLIA [id number] [place] [id number] [place] Magnesium [Mass/Vol]on 10-04 Interpretation and review of laboratory results Normal [facility] No Panel Informationon 10-04 Interpretation and review of laboratory results Abnormal [facility] PTH INTACTon 10-04-2024 Parathyrin.intact [Mass/Vol] 124 pg/mL High 15 - 65 pg/mL [facility] Parathyrin.intact [Mass/Vol] 124 pg/mL High 15-65 [facility] Comment on above: Order Comment: Alli men Type: BLOOD SPECIMENOrdering Facility: [facility] Address: [address] [place] [address] Performed By: #### 2 4323-8, , 2730-11 ####[facility] LABIA [id number] [place] [id number] [place] VITAMIN D 25 HYDROXYon 10-04 25-hydroxyvitamin D3 [Mass/Vol] 29.6 ng/mL Low 31.0 - 80.0 ng/mL [facility] Comment on above: Classification of 25 [place] Vitamin D status: Deficiency/Insufficiency: < or = 30 ng/ml. Sufficiency/Optimal Levels: 31-80 ng/mL Toxicity: > 100 ng/mL. Test performed by chemiluminescent immunoassay. CNOVon 06-24-2024 CNOV Office Visit (ORMN ) KESHA CARMICHAEL ([id number]) 1945 F Date Time Provider Department 06/24/24 8:30 AM DAYANNA LEWIS [facility] During your visit today, we recorded the following information about you: Dayanna Lewis MD 06/24/2024 8:58 AM Signed [facility] NOTE Department of Orthopaedics Dayanna Lewis M.D. NAME: Kesha Carmichael CLINIC NO.: [id number] DATE: June 24, 2024 Kesha returns for [...] voiced understanding of these instructions. Informed Consent [place] Protocol A moment to CARE was completed. [...] [78] Pain (more content not included)... Normal [facility] Large Joint Arthro/Inj: bila teral glenohumeralson 06-24-2024 Dayanna Lewis M D 06/24/2024 8:58 AM Large Joint Arthro/Inj: bilateral [...] voiced understanding of these instructions. Informed Consent [place] Protocol A moment to CARE was completed. [...] assessment and interventions applicable. No implant(s) inserted. [facility] XR SHLDR >/=3V AP/LUIS AP/OTH R LTon [...] PT STATES RIGHT ROTATOR CUFF TEAR (accession [id number]), PT STATES LEFT SHOULDER ROTATOR CUFF TEAR (accession [id number]) Rotator cuff tear arthropathy, right Rotator cuff [...] osteoarthritis. COMBINED IMPRESSION: Degenerative changes as described. Senior Structural Engineer: [facility] Transcribe Date/Time: Jun 22 2024 8:45P Dictated by : JOHANNA FLORES MD This examination was interpreted and the report reviewed and electronically signed by: JOHANNA FLORES MD on Jun 22 2024 8:46PM EST [id number] Normal [facility] XR SHLDR >/=3V AP/LUIS AP/OTH R RTon [...] PT STATES RIGHT ROTATOR CUFF TEAR (accession [id number]), PT STATES LEFT SHOULDER ROTATOR CUFF TEAR (accession [id number]) Rotator cuff tear arthropathy, right Rotator cuff [...] osteoarthritis. COMBINED IMPRESSION: Degenerative changes as described. Senior Structural Engineer: [employer] Transcribe Date/Time: Jun 22 2024 8:45P Dictated by : JOHANNA FLORES MD This examination was interpreted and the report reviewed and electronically signed by: JOHANNA FLORES MD on Jun 22 2024 8:46PM EST [id number] Normal [facility] CNTHERAPYon 06-07-2024 CNTHERAPY OT/PT/Speech Visit (PTWS) KESHA CARMICHAEL ([id number]) 1945 F Date Time Provider Department 06/07/24 10:15 AM BLOSSOM WHITE PTWS Date Time Provider Department Center 06/07/2024 10:15 AM [id number] WHITE PTWS Chun Martínez Reason for Visit: PT Progress Note [...] Cough Date Reviewed: 05/27/2024 Reviewed by: Maritza Shah MA - Fully Assessed Prescriptions as of 06/08/2024 - clotrimazole-betametha sone (LOTRISONE) lotion Apply to affected area two [...] tablet by mouth once daily. - vit C,Y-Rf-tthgf-lutein-ze axan (PRESERVISION AREDS-2) 250-90-40-1 mg Take 1 capsule by mouth twice daily with meals. - Cholecalciferol, Vitamin D3, 50 mcg (2,000 unit) cap Take 1 capsule by mouth once daily. - thiamine HCl (VITAMIN B-1 ORAL) Take 250 mg by mouth once daily. - multivitamins(DAILY MULTIVITAMIN TAB) Take one(1) tablet daily. Normal [facility] 25(OH)D3 [facility]-michelle 2024 25-hydroxyvitamin D3 [Mass/Vol] 36.6 ng/mL Normal 31.0-80.0 [facility] Comment on above: Order Comment: Speci men Type: BLOOD SPECIMENOrdering Facility: [facility] Address: [address] [place], [place] [address] Performed By: #### 1 989-3 ####[facility] LABCLIA [id number] [id number] [address] [place] ALBUMIN/CREATININE RATIO, UR INEon 05-27-2024 Albumin DL <= 20 mg/L (U) [Mass/Vol] 14.9 mg/L Normal [facility] Comment on above: Order Comment: Speci men Type: URINE SPECIMENOrdering Facility: [facility] Address: [address] [place] [address] Performed By: #### U ACR ####[facility] LABCLIA [id number] [place] [address] [place] Albumin/Creatinine (U) [Mass ratio] 48 mg/g High <30 [facility] Comment on above: Order Comment: Speci men Type: URINE SPECIMENOrdering Facility: [facility] Address: [address] [place] [address] Result Comment: Adul t Male and Female Nephrotic Criteria: <30 mg/g is considered normal to mildly increased 30-300 mg/g is considered moderately increased >300 mg/g is considered severely increased KDIGO. (2013). KDIGO 2012 Clinical Practice Guideline for the Evaluation and Management of Chronic Kidney Disease. Official Journal of the International Society of Nephrology, 3(1), 1-150. Performed By: #### U ACR ####[facility] LABCLIA [id number] [place] [address] [place] Creatinine (U) [Mass/Vol] 30.8 mg/dL Normal 20.0-300.0 [facility] Comment on above: Order Comment: Speci men Type: URINE SPECIMENOrdering Facility: [facility] Address: [address] [place] [address] Performed By: #### U ACR ####[facility] LABCLIA [id number] [place] [address] [place] CBC W Auto Differential pane l (Bld)on 05-27-2024 Basophils (Bld) [#/Vol] 0.05 10*3/uL Normal <0.11 [facility] Comment on above: Order Comment: Speci men Type: BLOOD SPECIMENOrdering Facility: [facility] Address: [address] [place] [address] Performed By: #### 5 7021-8 ####[facility] LABCLIA [id number] [place] [address] [place] Basophils/100 WBC (Bld) 1.0 % Normal [facility] Comment on above: Order Comment: Speci men Type: BLOOD SPECIMENOrdering Facility: [facility] Address: [address] [place] [address] Performed By: #### 5 7021-8 ####[facility] LABCLIA [id number] [place] [address] [place] Differential cell count method Nom (Bld) Auto Normal [facility] Comment on above: Order Comment: Speci men Type: BLOOD SPECIMENOrdering Facility: [facility] Address: [address] [place] [address] Performed By: #### 5 7021-8 ####[facility] LABCLIA [id number] [place] [address] [place] Eosinophils (Bld) [#/Vol] 0.33 10*3/uL Normal <0.46 [facility] Comment on above: Order Comment: Speci men Type: BLOOD SPECIMENOrdering Facility: [facility] Address: [address] [place] [address] Performed By: #### 5 7021-8 ####[facility] LABCLIA [id number] [address] [place] Eosinophils/100 WBC (Bld) 6.3 % Normal [facility] Comment on above: Order Comment: Speci men Type: BLOOD SPECIMENOrdering Facility: [facility] Address: [address] [place] [address] Performed By: #### 5 7021-8 ####[facility] LABCLIA [id number] [place] [address] [place] Erythrocyte distribution width (RBC) [Ratio] 13.1 % Normal 11.5-15.0 [facility] Comment on above: Order Comment: Speci men Type: BLOOD SPECIMENOrdering Facility: [facility] Address: [address] [place] [address] Performed By: #### 5 7021-8 ####[facility] LABCLIA [id number] [place] [address] [place] Hematocrit (Bld) [Volume fraction] 45.2 % Normal 36.0-46.0 [facility] Comment on above: Order Comment: Speci men Type: BLOOD SPECIMENOrdering Facility: [facility] Address: [address] [place] [address] Performed By: #### 5 7021-8 ####[facility] LABIA [id number] [place] [address] [place] Hemoglobin (Bld) [Mass/Vol] 14.4 g/dL Normal 11.5-15.5 [facility] Comment on above: Order Comment: Speci men Type: BLOOD SPECIMENOrdering Facility: [facility] Address: [address] [place] [address] Performed By: #### 5 7021-8 ####[facility] LABIA [id number] [place] [address] [place] Immature granulocytes (Bld) [#/Vol] 10*3/uL Normal <0.10 [facility] Comment on above: Order Comment: Speci men Type: BLOOD SPECIMENOrdering Facility: [facility] Address: [address] [place] [address] Performed By: #### 5 7021-8 ####[facility] LABIA [id number] [place] [address] [place] Immature granulocytes/100 WBC (Bld) 0.2 % Normal [facility] Comment on above: Order Comment: Speci men Type: BLOOD SPECIMENOrdering Facility: [facility] Address: [address] [place] [address] Performed By: #### 5 7021-8 ####[facility] LABCLIA [id number] [place] [address] [place] Lymphocytes (Bld) [#/Vol] 1.56 10*3/uL Normal 1.00-4.00 [facility] Comment on above: Order Comment: Speci men Type: BLOOD SPECIMENOrdering Facility: [facility] Address: [address] [place] [address] Performed By: #### 5 7021-8 ####[facility] LABCLIA [id number] [place] [address] [place] Lymphocytes/100 WBC (Bld) 29.8 % Normal [facility] Comment on above: Order Comment: Speci men Type: BLOOD SPECIMENOrdering Facility: [facility] Address: [address] [place] [address] Performed By: #### 5 7021-8 ####[facility] LABCLIA [id number] [place] [address] [place] MCH (RBC) [Entitic mass] 30.4 pg Normal 26.0-34.0 [facility] Comment on above: Order Comment: Speci men Type: BLOOD SPECIMENOrdering Facility: [facility] Address: [address] [place] [address] Performed By: #### 5 7021-8 ####[facility] LABCLIA [id number] [place] [address] [place] MCHC (RBC) [Mass/Vol] 31.9 g/dL Normal 30.5-36.0 [facility] Comment on above: Order Comment: Speci men Type: BLOOD SPECIMENOrdering Facility: [facility] Address: [address] [place] [address] Performed By: #### 5 7021-8 ####[facility] LABCLIA [id number] [place] [address] [place] MCV (RBC) [Entitic vol] 95.6 fL Normal 80.0-100.0 [facility] Comment on above: Order Comment: Speci men Type: BLOOD SPECIMENOrdering Facility: [facility] Address: [address] [place] [address] Performed By: #### 5 7021-8 ####[facility] LABCLIA [id number] [place] [address] [place] Monocytes (Bld) [#/Vol] 0.34 10*3/uL Normal <0.87 [facility] Comment on above: Order Comment: Speci men Type: BLOOD SPECIMENOrdering Facility: [facility] Address: [address] [place] [address] Performed By: #### 5 7021-8 ####[facility] LABCLIA [id number] [place] [address] [place] Monocytes/100 WBC (Bld) 6.5 % Normal [facility] Comment on above: Order Comment: Speci men Type: BLOOD SPECIMENOrdering Facility: [facility] Address: [address] [place] [address] Performed By: #### 5 7021-8 ####[facility] LABCLIA [id number] [place] [address] [place] Neutrophils (Bld) [#/Vol] 2.94 10*3/uL Normal 1.45-7.50 [facility] Comment on above: Order Comment: Speci men Type: BLOOD SPECIMENOrdering Facility: [facility] Address: [address] [place] [address] Performed By: #### 5 7021-8 ####[facility] LABCLIA [id number] [place] [address] [place] Neutrophils/100 WBC (Bld) 56.2 % Normal [facility] Comment on above: Order Comment: Speci men Type: BLOOD SPECIMENOrdering Facility: [facility] Address: [address] [place] [address] Performed By: #### 5 7021-8 ####[facility] LABCLIA [id number] [place] [address] [place] Nucleated RBC (Bld) [#/Vol] 10*3/uL Normal <0.01 [facility] Comment on above: Order Comment: Speci men Type: BLOOD SPECIMENOrdering Facility: [facility] Address: [address] [place] [address] Performed By: #### 5 7021-8 ####[facility] LABCLIA [id number] [place] [address] [place] Nucleated RBC/100 WBC (Bld) [Ratio] 0.0 /100 WBC Normal [facility] Comment on above: Order Comment: Speci men Type: BLOOD SPECIMENOrdering Facility: [facility] Address: [address] [place] [address] Performed By: #### 5 7021-8 ####[facility] LABIA [id number] [place] [address] [place] Platelet mean volume (Bld) [Entitic vol] 10.4 fL Normal 9.0-12.7 [facility] Comment on above: Order Comment: Speci men Type: BLOOD SPECIMENOrdering Facility: [facility] Address: [address] [place] [address] Performed By: #### 5 7021-8 ####[facility] LABCLIA [id number] [place] [address] [place] Platelets (Bld) [#/Vol] 274 10*3/uL Normal 150-400 [facility] Comment on above: Order Comment: Speci men Type: BLOOD SPECIMENOrdering Facility: [facility] Address: [address] [place] [address] Performed By: #### 5 7021-8 ####[facility] LABCLIA [id number] [place] [address] [place] RBC (Bld) [#/Vol] 4.73 10*6/uL Normal 3.90-5.20 [facility] Comment on above: Order Comment: Speci men Type: BLOOD SPECIMENOrdering Facility: [facility] Address: [address] [place] [address] Performed By: #### 5 7021-8 ####[facility] LABCLIA [id number] [place] [address] [place] WBC (Bld) [#/Vol] 5.23 10*3/uL Normal 3.70-11.00 [facility] Comment on above: Order Comment: Speci men Type: BLOOD SPECIMENOrdering Facility: [facility] Address: [address] [place] [address] Performed By: #### 5 7021-8 ####[facility] LABCLIA [id number] [address] [place] CNOVon 05-27-2024 CNOV Office Visit (FAMPWS ) KESHA CARMICHAEL ([id number]) 1945 F Date Time Provider Department 05/27/24 8:40 AM BELKYS MCINTYRE FAMPWS During your visit today, we recorded the following information about you: Temperature Pulse Blood pressure Weight 97.4 degrees 61/minute 132/80 93 kg Belkys Mcintyre, BOOK EDITOR.LAUNDRY MACHINE MECHANIC 05/27/2024 9:12 AM Signed This is a 79 year old female who presents today with: Patient presents with: Fall: Fell while in [place] one week ago HISTORY OF PRESENT ILLNESS: Keshashaji Carmichael is a 79 year old female. [...] HISTORY Diagnosis Date Abnormal EKG afib, inf [place] age undetermined Atrial fibrillation (HCC) Breast cancer [...] complication, without long-term current use of insulin ([facility]) 04/11/2016 PAST SURGICAL HISTORY Procedure Laterality Date [...] 1 tablet by mouth once daily. vit C,G-Ns-wmhnl-lutein-ze axan (PRESERVISION AREDS-2) 250-90-40-1 mg Take 1 capsule [...] Mother Hypertension Mother Hypertension Father Heart Father GA Diabetes Father Kidney Disease Sister Heart disease [...] Grandfather Socia (more content not included)... Normal [facility] Calcium.ionized [Moles/Vol]o n 05-27-2024 Calcium.ionized (Bld) [Mass/Vol] 1.34 mmol/L High 1.08-1.30 [facility] Comment on above: Order Comment: Speci men Type: BLOOD SPECIMENOrdering Facility: [facility] Address: [address], [place] [address] Performed By: #### 1 995-0 ####[facility] LABIA [id number] [place] [address] [place] Calcium.ionized adjusted to pH 7.4 (Bld) [Moles/Vol] 1.29 mmol/L Normal 1.08-1.30 [facility] Comment on above: Order Comment: Speci men Type: BLOOD SPECIMENOrdering Facility: [facility] Address: [address] [place] [address] Performed By: #### 1 995-0 ####[facility] LABIA [id number] [place] [address] [place] Comprehensive metabolic 2000 panelon 05-27-2024 Albumin [Mass/Vol] 4.2 g/dL Normal 3.9-4.9 [facility] Comment on above: Order Comment: Speci men Type: BLOOD SPECIMENOrdering Facility: [facility] Address: [address] [place] [address] Performed By: #### 2 4323-8, LIPNF, 99819-0, 3016-3 ####[facility] LABIA [id number] [place] [address] [place] ALP [Catalytic activity/Vol] 72 U/L Normal 34-123 [facility] Comment on above: Order Comment: Speci men Type: BLOOD SPECIMENOrdering Facility: [facility] Address: [address] [place] [address] Performed By: #### 2 4323-8, LIPNF, 59065-2, 3016-3 ####[facility] LABIA [id number] [place] [address] [place] ALT [Catalytic activity/Vol] 21 U/L Normal 7-38 [facility] Comment on above: Order Comment: Speci men Type: BLOOD SPECIMENOrdering Facility: [facility] Address: [address] [place] [address] Performed By: #### 2 4323-8, LIPNF, , 3016-3 ####[facility] LABCLIA [id number] [address] [address] [place] Anion gap [Moles/Vol] 9 mmol/L Normal 8-15 [facility] Comment on above: Order Comment: Speci men Type: BLOOD SPECIMENOrdering Facility: [facility] Address: [address] [place] [address] Performed By: #### 2 4323-8, LIPNF, , 6-3 ####[facility] LABCLIA [id number] [place] [id number] [place] AST [Catalytic activity/Vol] 24 U/L Normal 13-35 [facility] Comment on above: Order Comment: Speci men Type: BLOOD SPECIMENOrdering Facility: [facility] Address: [address] [place] [address] Performed By: #### 2 4323-8, LIPNF, , 6-3 ####[facility] LABCLIA [id number] [address] [address] [place] Bilirubin [Mass/Vol] 0.4 mg/dL Normal 0.2-1.3 [facility] Comment on above: Order Comment: Speci men Type: BLOOD SPECIMENOrdering Facility: [facility] Address: [address] [place] [address] Performed By: #### 2 4323-8, LIPNF, , 6-3 ####[facility] LABCLIA [id number] [address] [address] [place] Calcium [Mass/Vol] 10.5 mg/dL High 8.5-10.2 [facility] Comment on above: Order Comment: Speci men Type: BLOOD SPECIMENOrdering Facility: [facility] Address: [address] [place] [address] Performed By: #### 2 4323-8, LIPNF, , 6-3 ####[facility] LABCLIA [id number] [address] [address] [place] Chloride [Moles/Vol] 103 mmol/L Normal 98-107 [facility] Comment on above: Order Comment: Speci men Type: BLOOD SPECIMENOrdering Facility: [facility] Address: [address] [place] [address] Performed By: #### 2 4323-8, LIPNF, , 6-3 ####[facility] LABCLIA [id number] [place] [address] [place] CO2 [Moles/Vol] 31 mmol/L High 22-30 [facility] Comment on above: Order Comment: Speci men Type: BLOOD SPECIMENOrdering Facility: [facility] Address: [address] [place] [address] Performed By: #### 2 4323-8, LIPNF, , 6-3 ####[facility] LABIA [id number] [place] [address] [place] Creatinine [Mass/Vol] 0.90 mg/dL Normal 0.58-0.96 [facility] Comment on above: Order Comment: Speci men Type: BLOOD SPECIMENOrdering Facility: [facility] Address: [address] [place] [address] Performed By: #### 2 4323-8, LIPNF, , 3015-3 ####[facility] LABIA [id number] [place] [id number] [place] Creatinine and Glomerular filtration rate.predicted panel (S/P/Bld) 65 mL/min/1.73m??? Normal >=60 [facility] Comment on above: Order Comment: Speci men Type: BLOOD SPECIMENOrdering Facility: [facility] Address: [address] [place] [address] Result Comment: Rashida mated Glomerular Filtration Rate [...] actual GFR. Performed By: #### 2 4323-8, LIPMUNIRA, , 3015-3 ####[facility] LABIA [id number] [address] [address] [place] Glucose [Mass/Vol] 118 mg/dL High 74-99 [facility] Comment on above: Order Comment: Speci men Type: BLOOD SPECIMENOrdering Facility: [facility] Address: [address] [place] [address] Result Comment: The [place] Diabetes Association (ADA) provides guidance for cutoff [...] Standards of Medical Care in Diabetes 2016, [place] Diabetes Association. Diabetes Care. 2016.39(Suppl 1). Performed By: #### 2 4323-8, LIPMUNIRA, , 3015-3 ####[facility] LABIA [id number] [address] [address] [place] Potassium [Moles/Vol] 4.5 mmol/L Normal 3.7-5.1 [facility] Comment on above: Order Comment: Speci men Type: BLOOD SPECIMENOrdering Facility: [facility] Address: [address] [place] [address] Performed By: #### 2 4323-8, LIPNF, , 3015-3 ####[facility] LABIA [id number] [address] [address] [place] Protein [Mass/Vol] 7.0 g/dL Normal 6.3-8.0 [facility] Comment on above: Order Comment: Speci men Type: BLOOD SPECIMENOrdering Facility: [facility] Address: [address] [place] [address] Performed By: #### 2 4323-8, LIPNF, , 3015-3 ####[facility] [id number] [address] [address] [place] Sodium [Moles/Vol] 143 mmol/L Normal 136-144 [facility] Comment on above: Order Comment: Speci men Type: BLOOD SPECIMENOrdering Facility: [facility] Address: [address] [place] [address] Performed By: #### 2 4323-8, LIPNF, , 3 ####[facility] [id number] [address] [address] [place] Urea nitrogen [Mass/Vol] 18 mg/dL Normal 7-21 [facility] Comment on above: Order Comment: Speci men Type: BLOOD SPECIMENOrdering Facility: [facility] Address: [address] [place] [address] Performed By: #### 2 4323-8, LIPNF, , 3015-3 ####[facility] LABIA [id number] [address] [address] [place] HbA1c (Bld)on 05-27-2024 Average glucose Estimated from glycated hemoglobin (Bld) [Mass/Vol] 131 mg/dL Normal [facility] Comment on above: Order Comment: Speci men Type: BLOOD SPECIMENOrdering Facility: [facility] Address: [address] [place], [place] [address] Result Comment: eAG: (Estimated average glucose) is a calculated value from HgbA1c and is outside medical sales representative of the average blood glucose level in the last 2-3 month period. Performed By: #### 5 5454-3 ####[facility] LABCLIA [id number] [place] [address] [place] HbA1c (Bld) [Mass fraction] 6.2 % High 4.3-5.6 [facility] Comment on above: Order Comment: Ashley davey Type: BLOOD SPECIMENOrdering Facility: [facility] Address: [address] [place] [address] Result Comment: Amer [place] Diabetes Association guidelines indicate that patients with HgbA1c in the range 5.7-6.4% are at increased risk for development of diabetes, and intervention by lifestyle modification may be beneficial. HgbA1c greater or equal to 6.5% is considered diagnostic of diabetes. Performed By: #### 5 5454-3 ####[facility] LABIA [id number] [place] [address] [place] LIPID PANEL, NONFASTINGon Cholesterol [Mass/Vol] 170 mg/dL Normal <200 [facility] Comment on above: Order Comment: Ashley davey Type: BLOOD SPECIMENOrdering Facility: [facility] Address: [address] [place] [address] Result Comment: <200 mg/dL, Desirable 200-239 mg/dL, Borderline high >239 mg/dL, High Performed By: #### 2 4323-8, LIPNF, 02601-0, 3016-3 ####[facility] LABCLIA [id number] [address] OF [facility] HDL CHOLESTEROL, NF 50 mg/dL Normal >39 [facility] Comment on above: Order Comment: Ashley davey Type: BLOOD SPECIMENOrdering Facility: [facility] Address: [address] [place] [address] Result Comment: 40-5 9 mg/dL, Acceptable >59 mg/dL, High: Negative risk factor for coronary heart disease <40 mg/dL, Low: Positive risk factor for coronary heart disease Performed By: #### 2 4323-8, LIPNF, 43206-5, 3015-3 ####[facility] LABCLIA [id number] [address] [address] [place] LDL CHOLESTEROL, NF 90 mg/dL Normal <100 [facility] Comment on above: Order Comment: Speci men Type: BLOOD SPECIMENOrdering Facility: [facility] Address: [address] [place] [address] Result Comment: <100 mg/dL, Optimal 100-129 mg/dL, Near optimal/above optimal 130-159 mg/dL, Borderline high 160-189 mg/dL, High >189 mg/dL, Very high Secondary prevention optimal LDL Cholesterol levels are recommended to be < 70 mg/dL Performed By: #### 2 4323-8, LIPNF, 75379-6, 3015-3 ####[facility] LABCLIA [id number] [place] [address] [place] LDL/HDL RATIO, NF 1.80 mg/dL Normal <2.54 [facility] Comment on above: Order Comment: Speci men Type: BLOOD SPECIMENOrdering Facility: [facility] Address: [address] [place] [address] Result Comment: Yosvany chavez: 1. National Cholesterol Education Program ATP III Guideline At-A-Glance Quick Desk Reference: National Heart, Lung, and Blood [place]. National Institutes of Health. 2001: NIH Publication No. 01-3305. 2. An International Atherosclerosis Society position paper: global recommendations for the management of dyslipidemia: executive summary, Atherosclerosis. 2014: 232(2):410-413. Performed By: #### 2 4323-8, LIPNF, 56721-9, 3015-3 ####[facility] LABCLIA [id number] [place] [address] [place] NON HDL CHOL, NF 120 mg/dL Normal <130 [facility] Comment on above: Order Comment: Speci men Type: BLOOD SPECIMENOrdering Facility: [facility] Address: [address] [place] [address] Result Comment: <130 mg/dL, Optimal 130-159 mg/dL, Near optimal/above optimal 160-189 mg/dL, Borderline high 190-219 mg/dL, High >219 mg/dL, Very high Secondary prevention optimal non HDL Cholesterol levels are recommended to be <100 mg/dL Performed By: #### 2 4323-8, LIPNF, 93987-8, 6-3 ####[facility] LABCLIA [id number] [place] [address] [place] T CHOL/HDL RATIO NF 3.40 mg/dL Normal <5.10 [facility] Comment on above: Order Comment: Speci men Type: BLOOD SPECIMENOrdering Facility: [facility] Address: [address] [place] [address] Performed By: #### 2 4323-8, LIPNF, 63534-0, 3015-3 ####[facility] LABCLIA [id number] [place] [address] [place] TRIGLYCERIDES, NF 148 mg/dL Normal <150 [facility] Comment on above: Order Comment: Speci men Type: BLOOD SPECIMENOrdering Facility: [facility] Address: [address] [place] [address] Result Comment: <150 mg/dL, Normal 150-199 mg/dL, Borderline high 200-499 mg/dL, High >499 mg/dL, Very high Performed By: #### 2 4323-8, LIPNF, 38504-2, 3015-3 ####[facility] LABCLIA [id number] [place] [address] [place] VLDL CHOLESTEROL, NF 30 mg/dL High <30 [facility] Comment on above: Order Comment: Speci men Type: BLOOD SPECIMENOrdering Facility: [facility] Address: [address] [place] [address] Performed By: #### 2 4323-8, LIPNF, 95823-0, 6-3 ####[facility] LABCLIA [id number] [address] [address] [place] Magnesium SerPl-mCncon 05-27 Magnesium [Mass/Vol] 2.2 mg/dL Normal 1.7-2.3 [facility] Comment on above: Order Comment: Speci men Type: BLOOD SPECIMENOrdering Facility: [facility] Address: [address] [place] [address] Performed By: #### 2 4323-8, LIPNF, 79946-6, 6-3 ####[facility] LABIA [id number] [place] [id number] [place] PTH-Intact SerPl-ncon 05-09 Parathyrin.intact [Mass/Vol] 69 pg/mL High 15-65 [facility] Comment on above: Order Comment: Speci men Type: BLOOD SPECIMENOrdering Facility: [facility] Address: [address] [place] [address] Performed By: #### 2 731-8, 2132-9 ####[facility] [id number] [place] [address] [place] TSH SerPl-aCncon 05-27-2024 TSH Qn 1.470 m[IU]/L Normal 0.270-4.200 [facility] Comment on above: Order Comment: Speci men Type: BLOOD SPECIMENOrdering Facility: [facility] Address: [address] [place] [address] Performed By: #### 2 4323-8, LIPNF, 38707-8, 6-3 ####[facility] [id number] [place] [id number] [place] Vit B12 SerPl-mCncon 025 Cobalamin (Vitamin B12) [Mass/Vol] 373 pg/mL Normal 232-1245 [facility] Comment on above: Order Comment: Speci men Type: BLOOD SPECIMENOrdering Facility: [facility] Address: [address] [place], [place] [address] Performed By: #### 2 731-8, 2132-9 ####[facility] LABCLWENCESLAO [id number] [facility] [id number] [id number] [place] XR HIP 3V [...] dislocation. IMPRESSION: Degenerative changes. No acute abnormality. Senior Structural Engineer: PSCB Transcribe Date/Time: May 30 2024 10:49A Dictated by : JG HUGGINS MD This examination was interpreted and the report reviewed and electronically signed by: JG HUGGINS MD on May 30 2024 10:50AM EST [id number] Normal [facility] CNTHERAPYon 05-26-2024 CNTHERAPY OT/PT/Speech Visit (PTWS) KESHA CARMICHAEL ([id number]) 1945 F Date Time Provider Department 05/26/24 5:15 PM BLOSSOM WHITE Date Time Provider Department Center 05/26/2024 5:15 PM [id number] WHITE PTWS Chun Martínez Reason for Visit: [...] Date Reviewed: 04/19/2024 Reviewed by: Belkys Mcintyre APRN.LAUNDRY MACHINE MECHANIC - Fully Assessed Prescriptions as of 05/26/2024 [...] tablet by mouth once daily. - vit C,I-Zv-qydsu-lutein-ze axan (PRESERVISION AREDS-2) 250-90-40-1 mg Take 1 capsule by mouth twice daily with meals. - Cholecalciferol, Vitamin D3, 50 mcg (2,000 unit) cap Take 1 capsule by mouth once daily. - thiamine HCl (VITAMIN B-1 ORAL) Take 250 mg by mouth once daily. - multivitamins(DAILY MULTIVITAMIN TAB) Take one(1) tablet daily. Normal [facility] CNTHERAPYon 05-24-2024 CNTHERAPY OT/PT/Speech Visit (PTWS) KESHA CARMICHAEL ([id number]) 1945 F Date Time Provider Department 05/24/24 9:30 AM BLOSSOM WHITE Date Time Provider Department Center 05/24/2024 9:30 AM [id number] WHITE Reason for Visit: Physical Therapy [503] [...] Date Reviewed: 04/19/2024 Reviewed by: Belkys Mcintyre APRN.LAUNDRY MACHINE MECHANIC - Fully Assessed Prescriptions as of 05/24/2024 [...] tablet by mouth once daily. - vit C,K-Pl-vmxgy-lutein-ze axan (PRESERVISION AREDS-2) 250-90-40-1 mg Take 1 capsule by mouth twice daily with meals. - Cholecalciferol, Vitamin D3, 50 mcg (2,000 unit) cap Take 1 capsule by mouth once daily. - thiamine HCl (VITAMIN B-1 ORAL) Take 250 mg by mouth once daily. - multivitamins(DAILY MULTIVITAMIN TAB) Take one(1) tablet daily. Facility-Administered Medications as of 05/24/2024 - perflutren lipid microspheres 1.3 mL in NaCl (PF) 0.9% 10 mL injection (DEFINITY) - sodium chloride 0.9 % (flush) 10 mL (BD POSIFLUSH) Normal [facility] CNTHERAPYon 05-10-2024 CNTHERAPY OT/PT/Speech Visit (PTWS) KESHA CARMICHAEL ([id number]) 1945 F Date Time Provider Department 05/10/24 9:30 AM TANYA MEZA PTWS Date Time Provider Department Center 05/10/2024 9:30 AM [id number], MARIAH PTWS Chun Martínez Reason for Visit: [...] Date Reviewed: 04/19/2024 Reviewed by: Belkys Mcintyre APRN.LAUNDRY MACHINE MECHANIC - Fully Assessed Prescriptions as of 05/10/2024 [...] tablet by mouth once daily. - vit C,T-Wn-qptar-lutein-ze axan (PRESERVISION AREDS-2) 250-90-40-1 mg Take 1 capsule by mouth twice daily with meals. - Cholecalciferol, Vitamin D3, 50 mcg (2,000 unit) cap Take 1 capsule by mouth once daily. - thiamine HCl (VITAMIN B-1 ORAL) Take 250 mg by mouth once daily. - multivitamins(DAILY MULTIVITAMIN TAB) Take one(1) tablet daily. Facility-Administered Medications as of 05/10/2024 - perflutren lipid microspheres 1.3 mL in NaCl (PF) 0.9% 10 mL injection (DEFINITY) - sodium chloride 0.9 % (flush) 10 mL (BD POSIFLUSH) Normal [facility] [id number] 05-07-2024 [id number] O ID: [id number] Author: BLOSSOM WHITE PT Service: ? Author Type: Physical Therapist Type: [id number] Filed: 05/07/2024 10:46 Note Text: [facility] Physical Therapy Plan of Care Certification Patient Name: Kesha Carmichael : 1945 [facility] #: [id number] Date: 05/07/2024 To: Belkys Mcintyre A* From [...] Patient to be seen for Neuromuscular re-education (63461), Therapeutic exercise (79939), Manual therapy (28460), Therapeutic activities (60094), Self-alf management (69431), Gait Training (66876) PLAN FOR NEXT VISIT: Pt. leaves for [place] for a week on Friday and will return for PT visits For further details regarding this patient refer to the Physical Therapy electronically documented visit dated 05/07/2024. Provider Attestation I have reviewed the treatment plan for Kesha Carmichael, [facility]# [id number] for the period of 05/07/24 -- 06/18/24, established on 05/07/2024. Signature certifies the need for therapy services. Normal [facility] CNTHERAPYon 05-07-2024 CNTHERAPY OT/PT/Speech Visit (PTWS) KESHA CARMICHAEL ([id number]) 1945 F Date Time Provider Department 05/07/24 10:00 AM BLOSSOM WHITE PTSTEVEN Date Time Provider Department Center 05/07/2024 10:00 AM [id number] WHITE PTSTEVEN Martínez Reason for Visit: PT [...] Date Reviewed: 04/19/2024 Reviewed by: Belkys Mcintyre APRN.LAUNDRY MACHINE MECHANIC - Fully Assessed Prescriptions as of 05/07/2024 [...] tablet by mouth once daily. - vit C,W-Cy-tqbkc-lutein-ze axan (PRESERVISION AREDS-2) 250-90-40-1 mg Take 1 capsule by mouth twice daily with meals. - Cholecalciferol, Vitamin D3, 50 mcg (2,000 unit) cap Take 1 capsule by mouth once daily. - thiamine HCl (VITAMIN B-1 ORAL) Take 250 mg by mouth once daily. - multivitamins(DAILY MULTIVITAMIN TAB) Take one(1) tablet daily. Facility-Administered Medications as of 05/07/2024 - perflutren lipid microspheres 1.3 mL in NaCl (PF) 0.9% 10 mL injection (DEFINITY) - sodium chloride 0.9 % (flush) 10 mL (BD POSIFLUSH) Brineyard Supervisor: Therapy (PT/OT/Speech/Resp) ID: [id number] 05/07/2024 10:19 AM Author: BLOSSOM WHITE Signed by BLOSSOM WHITE PT on 05/07/2024 at 10:19 AM Document text: Program_ID:[id number] Access Code: [email or web address] URL: [email or web address] Date: 05-07-2024 Prepared By: Blossom White Program [...] weekly - 3 sets - 10 reps -- Normal [facility] THERAPY NTon 05-07-2024 THERAPY NT HNO ID: [id number] Author: BLOSSOM WHITE PT Service: ? Author Type: Physical Therapist Type: Therapy (PT/OT/Speech/Resp) Filed: 05/07/2024 10:19 Note Text: Program_ID:[id number] Access Code: [email or web address] URL: [email or web address] Date: 05-07-2024 Prepared By: Blossom White Program [...] - 3 sets - 10 reps Normal [facility] CNTHERAPYon 05-03-2024 CNTHERAPY OT/PT/Speech Visit (PTWS) KESHA CARMICHAEL ([id number]) 1945 F Date Time Provider Department 05/03/24 8:45 AM BLOSSOM WHIET PTWS Date Time Provider Department Center 05/03/2024 8:45 AM [id number] WHITE PTWS Chun Martínez Reason for Visit: [...] Date Reviewed: 04/19/2024 Reviewed by: Belkys Mcintyre APRN.LAUNDRY MACHINE MECHANIC - Fully Assessed Prescriptions as of 05/03/2024 [...] tablet by mouth once daily. - vit C,U-Zp-wgejx-lutein-ze axan (PRESERVISION AREDS-2) 250-90-40-1 mg Take 1 capsule by mouth twice daily with meals. - Cholecalciferol, Vitamin D3, 50 mcg (2,000 unit) cap Take 1 capsule by mouth once daily. - thiamine HCl (VITAMIN B-1 ORAL) Take 250 mg by mouth once daily. - multivitamins(DAILY MULTIVITAMIN TAB) Take one(1) tablet daily. Facility-Administered Medications as of 05/03/2024 - perflutren lipid microspheres 1.3 mL in NaCl (PF) 0.9% 10 mL injection (DEFINITY) - sodium chloride 0.9 % (flush) 10 mL (BD POSIFLUSH) Normal [facility] CNTHERAPYon 04-30-2024 CNTHERAPY OT/PT/Speech Visit (PTWS) KESHA CARMICHAEL ([id number]) 1945 F Date Time Provider Department 04/30/24 10:15 AM TANYA MEZA Date Time Provider Department Center 04/30/2024 10:15 AM [id number] MEZA Reason for Visit: Physical Therapy [503] Primary [...] Date Reviewed: 04/19/2024 Reviewed by: Belkys Mcintyre APRN.LAUNDRY MACHINE MECHANIC - Fully Assessed Prescriptions as of 04/30/2024 [...] tablet by mouth once daily. - vit C,U-Op-sfdej-lutein-ze axan (PRESERVISION AREDS-2) 250-90-40-1 mg Take 1 capsule by mouth twice daily with meals. - Cholecalciferol, Vitamin D3, 50 mcg (2,000 unit) cap Take 1 capsule by mouth once daily. - thiamine HCl (VITAMIN B-1 ORAL) Take 250 mg by mouth once daily. - multivitamins(DAILY MULTIVITAMIN TAB) Take one(1) tablet daily. Facility-Administered Medications as of 04/30/2024 - perflutren lipid microspheres 1.3 mL in NaCl (PF) 0.9% 10 mL injection (DEFINITY) - sodium chloride 0.9 % (flush) 10 mL (BD POSIFLUSH) Normal [facility] CNTHERAPYon 04-26-2024 CNTHERAPY OT/PT/Speech Visit (PTWS) KESHA CARMICHAEL ([id number]) 1945 F Date Time Provider Department 04/26/24 1:15 PM BLOSSOM WHITE PTWS Date Time Provider Department Center 04/26/2024 1:15 PM [id number] WHITE PTWS Chun Martínez Reason for Visit: [...] Date Reviewed: 04/19/2024 Reviewed by: Belkys Mcintyre APRN.LAUNDRY MACHINE MECHANIC - Fully Assessed Prescriptions as of 04/26/2024 [...] tablet by mouth once daily. - vit C,F-Qo-gugha-lutein-ze axan (PRESERVISION AREDS-2) 250-90-40-1 mg Take 1 capsule by mouth twice daily with meals. - Cholecalciferol, Vitamin D3, 50 mcg (2,000 unit) cap Take 1 capsule by mouth once daily. - thiamine HCl (VITAMIN B-1 ORAL) Take 250 mg by mouth once daily. - multivitamins(DAILY MULTIVITAMIN TAB) Take one(1) tablet daily. Facility-Administered Medications as of 04/26/2024 - perflutren lipid microspheres 1.3 mL in NaCl (PF) 0.9% 10 mL injection (DEFINITY) - sodium chloride 0.9 % (flush) 10 mL (BD POSIFLUSH) Normal [facility] Campos 04-22-2024 [facility] KESHA CARMICHAEL ([id number]) 1945 F Date Time Provider Department 04/22/24 ABIOLA WEAVER [facility] During your visit today, we recorded the following information about you: Stoney Lopez 04/22/2024 10:57 AM Signed I called the [...] Date Reviewed: 04/19/2024 Reviewed by: Belkys Mcintyre APRN.LAUNDRY MACHINE MECHANIC - Fully Assessed Prescriptions as of 04/22/2024 [...] tablet by mouth once daily. - vit C,T-Nu-cjszw-lutein-ze axan (PRESERVISION AREDS-2) 250-90-40-1 mg Take 1 capsule by mouth twice daily with meals. - Cholecalciferol, Vitamin D3, 50 mcg (2,000 unit) cap Take 1 capsule by mouth once daily. - thiamine HCl (VITAMIN B-1 ORAL) Take 250 mg by mouth once daily. - multivitamins(DAILY MULTIVITAMIN TAB) Take one(1) tablet daily. Facility-Administered Medications as of 04/22/2024 - perflutren lipid microspheres 1.3 mL in NaCl (PF) 0.9% 10 mL injection (DEFINITY) - sodium chloride 0.9 % (flush) 10 mL (BD POSIFLUSH) Problem List As Of Date 04/22/2024 Noted Resolved Acute appendicitis without mention of peritonit*03/04/2010 08/06/2012 Rotator cuff tear [M75.100] 04/03/2010 04/11/2016 Other physical therapy [PVN7483] 04/10/2010 07/01/2011 Seborrheic Keratosis [L82.1] 07/26/2010 07/01/2011 Solar lentigo [L81.4] 07/26/2010 07/01/2011 Actinic skin damage [L57.8] 07/26/2010 07/01/2011 Essential hypertension, benign [I10] 07/01/2011 Family history of breast cancer [Z80.3] 07/01/2011 04/15/2022 Osteoarthrosis, unspecified whether generalized*09/09/2011 09/09/2011 Arthritis of knee [M17.10] 09/11/2011 09/11/2011 [...] fracture of right distal radius [S52.501*09/10/2021 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 Normal [facility] CNOVon 04-19-2024 CNOV Office Visit (FAMPWS ) KESHA CARMICHAEL ([id number]) 1945 F Date Time Provider Department 04/19/24 1:40 PM BELKYS MCINTYRE During your visit today, we recorded the following information about you: Pulse Respiration Blood pressure Weight 76/minute 16/minute 128/84 94.8 kg Belkys Mcintyre APRN.CNP 04/19/2024 2:18 PM Signed This is a [...] HISTORY Diagnosis Date Abnormal EKG afib, inf GA age undetermined Atrial fibrillation (HCC) Breast cancer [...] complication, without long-term current use of insulin ([facility]) 04/11/2016 PAST SURGICAL HISTORY Procedure Laterality Date [...] W/WO RMVL TUBE OVARY 1975 Hysterectomy, DANYELLE ALLERGIES Adhesive Tape-Silicones, Anastrozole, Aquacel-Ag [...] 1 tablet by mouth once daily. vit C,E-Ca-cxyfs-lutein-ze axan (PRESERVISION AREDS-2) 250-90-40-1 mg Take 1 capsule [...] Mother Hypertension Mother Hypertension Father Heart Father [place] Diabetes Father Kidney Disease Sister Heart disease [...] Drug us (more content not included)... Normal [facility] CNTHERAPYon 04-19-2024 CNTHERAPY OT/PT/Speech Visit (PTWS) KESHA CARMICHAEL ([id number]) 1945 F Date Time Provider Department 04/19/24 8:45 AM BLOSSOM WHITE PTSTEVEN Date Time Provider Department Center 04/19/2024 8:45 AM [id number]-ZBLOSSOM WHITE PTSTEVEN Martínez Reason for Visit: Physical [...] tablet by mouth once daily. - vit C,I-Fp-ltazu-lutein-ze axan (PRESERVISION AREDS-2) 250-90-40-1 mg Take 1 capsule by mouth twice daily with meals. - Cholecalciferol, Vitamin D3, 50 mcg (2,000 unit) cap Take 1 capsule by mouth once daily. - thiamine HCl (VITAMIN B-1 ORAL) Take 250 mg by mouth once daily. - multivitamins(DAILY MULTIVITAMIN TAB) Take one(1) tablet daily. Facility-Administered Medications as of 04/19/2024 - perflutren lipid microspheres 1.3 mL in NaCl (PF) 0.9% 10 mL injection (DEFINITY) - sodium chloride 0.9 % (flush) 10 mL (BD POSIFLUSH) Normal [facility] Pulmonary Visit Reporton Pulmonary Visit Report [facility] Pulmonary Medicine of [address] [place] [address] OFFICE VISIT Date of Service: 04/08/24 MR#: [id number] Acct: [id number] Name: KESHA CARMICHAEL Rep #: [id number] : 1945 Provider: KERRY Garnica Age/Sex: 79/F Location: [facility].PMW Status: Signed Assessment and Plan Assessment and [...] year. Plan Details Follow Up: 1 Year ([facility]) HPI 1 Y FU Chief Complaint: Routine [...] 1 Y FU Chief Complaint: f/u RONALDO White Sugar Boiler Required: No DME Vendor: cpap- [facility] Accompanied [...] History vit cap PO 03/25/22 04/08/24 History C,E,zinc,Qd-khvzx-2-alvina tein-zeaxanthin 250 mg-2.5 mg-0.5 mg capsule gabapentin 100 mg capsule 100 mg PO TID 04/08/24 04/08/24 History Have you fallen in the past year?: [facility] Non-rheumatic tricuspid valve insufficiency Paroxysmal atrial fibrillation Acute on chronic diastolic (congestive) heart failure Secondary pulmonary arterial hypertension Essential (primary) hypertension Persistent atrial fibrillation RONALDO (obstructive sleep apnea) Obesity, Class III, BMI 40-49.9 (morbid obesity) Malignant neoplasm of left breast, estrogen receptor positive Type 2 diabetes mellitus Osteoarthritis Migraines Knee pain, chronic Inferior GA Hyperglycemia Epistaxis [facility] (CAWSTR ) KESHA CARMICHAEL ([id number]) 1945 F Date Time Provider Department 04/05/24 2:40 PM ANUJ NAVARRO During your visit today, we recorded the following information about you: Pulse Respiration Blood pressure Weight 103/minute 14/minute 122/85 95.7 kg Height 1.499 m Anuj Navarro MD 04/05/2024 2:49 PM Signed [facility] Cardiology ([facility] [address] [facility] [id number] OUTPATIENT VISIT DATE 04/05/2024 PRIMARY CARE PHYSICIAN: Chip Arreola MD [address] [place] [address] HISTORY OF PRESENT ILLNESS: Ms. Carmichael is [...] HISTORY Diagnosis Date Abnormal EKG afib, inf GA age undetermined Atrial fibrillation (HCC) Breast cancer ([facility]) 03/2018 left breast Closed fracture of right distal radius 09/10/2021 Congestive heart failure ([facility]) 09/24/2018 Epistaxis balloon out osteo History of colonoscopy [address] Stoney Hernandez , normal HTN (hypertension) Hyperglycemia Knee pain, chronic Lt Migraines stopped when she retired Normal cardiac stress test 2004 Dr. Romero Osteoarthritis Seasonal allergies Type 2 diabetes mellitus without complication, without long-term current use of insulin ([facility]) 04/11/2016 PAST SURGICAL HISTORY Procedure Laterality Date [...] Mother Hypertension Mother Hypertension Father Heart Father [place] Diabetes Father Kidney Disease Sister Heart disease [...] 1 tablet (more content not included)... Normal [facility] [id number] 03-29-2024 [id number] HNO ID: [id number] Author: BLOSSOM WHITE PT Service: ? Author Type: Physical Therapist Type: [id number] Filed: 03/29/2024 11:59 Note Text: [facility] Rehabilitation and Sports Therapy Physical Therapy Plan of Care Certification Patient Name: Kesha Carmichael : 1945 [facility] #: [id number] Date: 03/29/2024 To: Belkys Mcintyre A* From [...] Planned: 6 Planned Treatment Interventions: Neuromuscular re-education (60567), Therapeutic exercise (04917), Manual therapy (56164), Therapeutic activities (36007), Self-alf management (33984), Gait Training (43215) PLAN FOR NEXT VISIT: FGA. Assess symptom [...] have reviewed the treatment plan for Kesha Aikenneda, [facility]# [id number] for the period of 03/29/24 -- 05/10/24, established on 03/29/2024. Signature certifies the need for therapy services. Normal [facility] CNTHERAPYon 03-29-2024 CNTHERAPY OT/PT/Speech Visit (PTWS) KESHA CARMICHAEL ([id number]) 1945 F Date Time Provider Department 03/29/24 11:00 AM BLOSSOM WHITE PTSTEVEN Date Time Provider Department Center 03/29/2024 11:00 AM [id number] WHITE Reason for Visit: PT Eval [747] Primary [...] Date Reviewed: 03/09/2024 Reviewed by: Belkys Mcintyre APRN.LAUNDRY MACHINE MECHANIC - Fully Assessed Prescriptions as of 03/29/2024 [...] tablet by mouth once daily. - vit C,T-Op-bamyj-lutein-ze axan (PRESERVISION AREDS-2) 250-90-40-1 mg Take 1 capsule by mouth twice daily with meals. - Cholecalciferol, Vitamin D3, 50 mcg (2,000 unit) cap Take 1 capsule by mouth once daily. - thiamine HCl (VITAMIN B-1 ORAL) Take 250 mg by mouth once daily. - multivitamins(DAILY MULTIVITAMIN TAB) Take one(1) tablet daily. Facility-Administered Medications as of 03/29/2024 - perflutren lipid microspheres 1.3 mL in NaCl (PF) 0.9% 10 mL injection (DEFINITY) - sodium chloride 0.9 % (flush) 10 mL (BD POSIFLUSH) Brineyard Supervisor: Therapy (PT/OT/Speech/Resp) ID: [id number] 03/29/2024 11:35 AM Author: BLOSSOM WHITE Signed by BLOSSOM WHITE PT on 03/29/2024 at 11:35 AM Document text: Program_ID:[id number] Access Code: [email or web address] URL: [email or web address] Date: 03-29-2024 Prepared By: Blossom White Program [...] weekly - 4 sets - 10 reps -- Normal [facility] THERAPY NTon 03-29-2024 THERAPY NT HNO ID: [id number] Author: BLOSSOM WHITE PT Service: ? Author Type: Physical Therapist Type: Therapy (PT/OT/Speech/Resp) Filed: 03/29/2024 11:35 Note Text: Program_ID:[id number] Access Code: [email or web address] URL: [email or web address] Date: 03-29-2024 Prepared By: Blossom White Program [...] - 4 sets - 10 reps Normal [facility] CNOVon 03-09-2024 CNOV Office Visit (FAMPWS ) KESHA CARMICHAEL ([id number]) 1945 F Date Time Provider Department 03/09/24 10:20 AM [facility] During your visit today, we recorded the following information about you: Pulse Respiration Blood pressure Weight 110/minute 16/minute 122/78 94.6 kg Belkys Mcintyre, BOOK EDITOR.LAUNDRY MACHINE MECHANIC 03/09/2024 10:55 AM Signed This is a [...] to brush hair. Saw a neurologist in [place] 3-5 years ago. The tremors really bother her. Drinks caffeine in diet pepsi. Occ drinks regular diet pepsi. PAST MEDICAL HISTORY: PAST MEDICAL HISTORY Diagnosis Date Abnormal EKG afib, inf [place] age undetermined Atrial fibrillation (HCC) Breast cancer [...] complication, without long-term current use of insulin ([facility]) 04/11/2016 PAST SURGICAL HISTORY Procedure Laterality Date [...] tablet by mouth daily with dinner. vit C,C-Vq-qeebh-lutein-ze axan (PRESERVISION AREDS-2) 250-90-40-1 mg Take 1 capsule [...] Mother Hypertension Mother Hypertension Father Heart Father [place] Diabetes Father Kidney Disease Sister Heart disease [...] Breast Can (more content not included)... Normal [facility] Urinalysis complete panel (U )on 03-09-2024 Bacteria LM.HPF (Urine sed) [#/Area] Negative Normal Negative [facility] Comment on above: Order Comment: Speci men Type: URINE SPECIMENOrdering Facility: [facility] Address: [address] [place] [address] Performed By: #### 2 4356-8 ####[facility] LABIA [id number] [place] [address] [place] Bilirubin Ql (U) Negative Normal Negative [facility] Comment on above: Order Comment: Speci men Type: URINE SPECIMENOrdering Facility: [facility] Address: [address] [place] [address] Performed By: #### 2 4356-8 ####[facility] LABIA [id number] [place] [address] [place] Clarity (Unsp spec) Clear Normal Clear [facility] Comment on above: Order Comment: Speci men Type: URINE SPECIMENOrdering Facility: [facility] Address: [address] [place] [address] Performed By: #### 2 4356-8 ####[facility] LABCLIA [id number] [place] [address] [place] Color (U) Yellow Normal Yellow [facility] Comment on above: Order Comment: Speci men Type: URINE SPECIMENOrdering Facility: [facility] Address: [address] [place] [address] Performed By: #### 2 4356-8 ####[facility] LABCLIA [id number] [place] [address] [place] Epithelial cells LM.HPF (Urine sed) [#/Area] Moderate Normal [facility] Comment on above: Order Comment: Speci men Type: URINE SPECIMENOrdering Facility: [facility] Address: [address] [place] [address] Performed By: #### 2 4356-8 ####[facility] LABIA [id number] [address] [place] Glucose Test strip (U) [Mass/Vol] Negative Normal Negative [facility] Comment on above: Order Comment: Speci men Type: URINE SPECIMENOrdering Facility: [facility] Address: [address] [place] [address] Performed By: #### 2 4356-8 ####[facility] LABIA [id number] [place] [address] [place] Hemoglobin Ql (U) Negative Normal Negative [facility] Comment on above: Order Comment: Speci men Type: URINE SPECIMENOrdering Facility: [facility] Address: [address] [place] [address] Performed By: #### 2 4356-8 ####[facility] LABIA [id number] [place] [address] [place] Hyaline casts (Urine sed) [#/Area] 0 /[LPF] Normal 0 /LPF [facility] Comment on above: Order Comment: Speci men Type: URINE SPECIMENOrdering Facility: [facility] Address: [address] [place] [address] Performed By: #### 2 4356-8 ####[facility] LABCLIA [id number] [place] [address] [place] Ketones Ql (U) Negative Normal Negative [facility] Comment on above: Order Comment: Speci men Type: URINE SPECIMENOrdering Facility: [facility] Address: [address] [place] [address] Performed By: #### 2 4356-8 ####[facility] LABCLIA [id number] [place] [address] [place] Leukocyte esterase Test strip Ql (U) Trace Abnormal Negative [facility] Comment on above: Order Comment: Speci men Type: URINE SPECIMENOrdering Facility: [facility] Address: [address] [place] [address] Performed By: #### 2 4356-8 ####[facility] LABCLIA [id number] [place] [address] [place] Nitrite Ql (U) Negative Normal Negative [facility] Comment on above: Order Comment: Speci men Type: URINE SPECIMENOrdering Facility: [facility] Address: [address] [place] [address] Performed By: #### 2 4356-8 ####[facility] LABCLIA [id number] [place] [address] [place] pH (U) 7.5 [pH] Normal <8.5 [facility] Comment on above: Order Comment: Speci men Type: URINE SPECIMENOrdering Facility: [facility] Address: [address] [place] [address] Performed By: #### 2 4356-8 ####[facility] LABCLIA [id number] [place] [address] [place] Protein (U) [Mass/Vol] Negative Normal Negative [facility] Comment on above: Order Comment: Speci men Type: URINE SPECIMENOrdering Facility: [facility] Address: [address] [place] [address] Performed By: #### 2 4356-8 ####[facility] LABIA [id number] [place] [address] [place] RBC LM.HPF (Urine sed) [#/Area] 0-2 /HPF Normal 0-2 /HPF [facility] Comment on above: Order Comment: Speci men Type: URINE SPECIMENOrdering Facility: [facility] Address: [address] [place] [address] Performed By: #### 2 4356-8 ####[facility] [id number] [place] [address] [place] Specific gravity (U) [Rel density] 1.016 Normal 1.005-1.030 [facility] Comment on above: Order Comment: Speci men Type: URINE SPECIMENOrdering Facility: [facility] Address: [address] [place] [address] Performed By: #### 2 4356-8 ####[facility] [id number] [place] [address] [place] Urobilinogen Ql (U) 0.2 EU/dL Normal 0.2-1.0 EU/dL [facility] Comment on above: Order Comment: Speci men Type: URINE SPECIMENOrdering Facility: [facility] Address: [address] [place] [address] Performed By: #### 2 4356-8 ####[facility] [id number] [place] [address] [place] WBC LM.HPF (Urine sed) [#/Area] 0-5 /HPF Normal 0-5 /HPF [facility] Comment on above: Order Comment: Speci men Type: URINE SPECIMENOrdering Facility: [facility] Address: [address] [place] [address] Performed By: #### 2 4356-8 ####[facility] LABCLIA [id number] HECTORAmado [facility] HOSPITALRomain [id number] [id number] [place] XR LUMBAR 3V AP/LAT/L5-S1on [...] spine are presented. FINDINGS: There are five jaq-vlr-vucnven lumbar vertebrae. No acute fractures demonstrated. Left-sided curvature/levoscoliosi s is demonstrated. There is grade 1 L4 on L5 anterolisthesis. Generalized disc space narrowing is noted. There is moderate osteophyte formation. Kissing spine seen on lateral view. IMPRESSION: Lumbar spine degenerative changes as described above. Senior Structural Engineer: [facility]OSPITALTato Transcribe Date/Time: Mar 11 2024 4:48P Dictated by : OSCAR ORTEZ MD This examination was interpreted and the report reviewed and electronically signed by: OSCAR ORTEZ MD on Mar 11 2024 4:51PM EST [id number] Normal [facility] XR THORACIC 3V AP/LAT/SWIMME RSon 03-09-2024 XR THORACIC 3V AP/LAT/SWIMMERS * * [...] and degenerative disease of the thoracic spine. Senior Structural Engineer: RG Transcribe Date/Time: Mar 12 2024 9:14A Dictated by : SADIE PETER MD This examination was interpreted and the report reviewed and electronically signed by: SADIE PETER MD on Mar 12 2024 9:16AM EST [id number] Normal [facility] FUNDUS AUTOFLUORESCENCE PHOT O (FAF) OU (BOTH EYES)on 10-31-2023 [facility] Radiology Study observation (narrative) [facility] OCT MACULA CIRRUS OU (BOTH E YES)on 10-31-2023 [facility] Radiology Study observation (narrative) [facility] XR Ankle - left AP and Later al and obliqueon 03-13-2023 IMPRESSION: No acute osseous abnormality Senior Structural Engineer: [facility]IT[facility] Transcribe Date/Time: Mar 13 2023 5:03P Dictated [...] posterior calcaneal enthesophyte. DIVISION OF RADIOLOGY Provider, [facility] - 03/13/2023 * * *Final Report* * [...] enthesophyte. IMPRESSION IMPRESSION: No acute osseous abnormality Senior Structural Engineer: RG Transcribe Date/Time: Mar 13 2023 5:03P Dictated by : SADIE PETER MD This examination was interpreted and the report reviewed and electronically signed by: SADIE PETER MD on Mar 13 2023 5:04PM EST [facility] XR Ankle - left AP and Later al and obliqueOrdered By: Ccf Provider on 03-13-2023 [facility] XR Ankle - left AP and Later al and obliqueon 03-12-2023 Radiology Study observation (narrative) [facility] MAHAD SCREENINGon 11-08-2022 [facility] XR SHOULDER GENERAL 3V OR MO RE AP/TRUE AP/OTHER RIGHTon 05-16-2022 [facility] MAHAD SCREENINGon 10-26-2021 [facility] No Panel Informationon 09-10 [facility] XR WRIST INJURY 4V PA/LAT/OB L/SCAPH RIGHTon 08-22-2021 [facility] XR Wrist - right 4 Viewson 0 08-22-2021 IMPRESSION: Nondisplaced transverse fracture involving the radial styloid process which appears to be subacute in nature. Correlation with patient history and physical exam findings may be helpful. Senior Structural Engineer: RG Transcribe Date/Time: Aug 22 2021 10:45A Dictated by : DILMA CARRILLO MD This examination was interpreted and the report reviewed and electronically signed by: DILMA CARRILLO MD on Aug 22 2021 10:47AM EST ZZZ_DO_NOT_ USE_DIVISIO N OF RADIOLOGY * * *Final Report* * [...] tissue calcification radial to the distal scaphoid. ZZZ_DO_NOT_ USE_DIVISIO N OF RADIOLOGY Provider, [facility] - 08/22/2021 * * *Final Report* * [...] and physical exam findings may be helpful. Senior Structural Engineer: PSCTato Transcribe Date/Time: Aug 22 2021 10:45A Dictated by : DILMA CARRILLO MD This examination was interpreted and the report reviewed and electronically signed by: DILMA CARRILLO MD on Aug 22 2021 10:47AM TED [facility] Radiology Study observation (narrative) Yosef fischer [facility] XR Wrist - right 4 ViewsOrde red By: Ccf Provider on 08-22-2021 [facility] XR HIP 2V AP/LAT RTon 2020 [...] RIGHT hip then MRI would be recommended. Senior Structural Engineer: RG Transcribe Date/Time: Feb 15 2021 10:20A Dictated by : KELECHI COHN DO This examination was interpreted and the report reviewed and electronically signed by: KELECHI COHN DO on Feb 15 2021 10:21AM EST [id number] [facility] XR Knee - left 4 Viewson IMPRESSION: Satisfactory left knee arthroplasty. Senior Structural Engineer: RG Transcribe Date/Time: Mar 04 2020 10:54A [...] fracture, or dislocation. DIVISION OF RADIOLOGY Provider, [facility] - 03/04/2020 * * *Final Report* * [...] dislocation. IMPRESSION IMPRESSION: Satisfactory left knee arthroplasty. Senior Structural Engineer: RG Transcribe Date/Time: Mar 04 2020 10:54A Dictated by : BILL STAPLETON MD This examination was interpreted and the report reviewed and electronically signed by: BILL STAPLETON MD on Mar 04 2020 10:55AM EST [facility] Radiology Study observation (narrative) [facility] XR Knee - left 4 ViewsOrdere d By: Ccagus Provider on 03-04-2020 [facility] MAMMO DIAGNOSTIC BILATERAL ( OUTSIDE IMAGE)on 03-02-2018 Outside Imaging Stud y for Support of Clinical Care This study was sent from an outside facility to [facility] for support of clinical care of the patient within the [facility]. Invalid Interpretation Code [facility] Work Phone: MAMMO DIAGNOSTIC LEFT (OUTSI DE IMAGE)on 03-02-2018 Outside Imaging Stud y for Support of Clinical Care This study was sent from an outside facility to [facility] for support of clinical care of the patient within the [facility]. Invalid Interpretation Code [facility] Work Phone: MAMMO SCREENING BILATERAL (O UTSIDE IMAGE)on 03-02-2018 Outside Imaging Stud y for Support of Clinical Care This study was sent from an outside facility to [facility] for support of clinical care of the patient within the [facility]. Invalid Interpretation Code [facility] Work Phone: Outside Imaging Stud y for Support of Clinical Care This study was sent from an outside facility to [facility] for support of clinical care of the patient within the [facility]. Invalid Interpretation Code [facility] Work Phone: Outside Imaging Stud y for Support of Clinical Care This study was sent from an outside facility to [facility] for support of clinical care of the patient within the [facility]. Invalid Interpretation Code [facility] Work Phone: Outside Imaging Stud y for Support of Clinical Care This study was sent from an outside facility to [facility] for support of clinical care of the patient within the [facility]. Invalid Interpretation Code [facility] Work Phone: US BREAST LEFT (OUTSIDE IMAG E)on 03-02-2018 Outside Imaging Stud y for Support of Clinical Care This study was sent from an outside facility to [facility] for support of clinical care of the patient within the [facility]. Invalid Interpretation Code [facility] Work Phone: US BREAST PROCEDURE (OUTSIDE IMAGE)on 03-02-2018 Outside Imaging Stud y for Support of Clinical Care This study was sent from an outside facility to [facility] for support of clinical care of the patient within the [facility]. Invalid Interpretation Code [facility] Work Phone: US BREAST RIGHT (OUTSIDE SIMRAN GE)on 03-02-2018 Outside Imaging Stud y for Support of Clinical Care This study was sent from an outside facility to [facility] for support of clinical care of the patient within the [facility]. Invalid Interpretation Code [facility] Work Phone: Vital Signs Date Time Vital Sign Value Performing Clinician Facility 12-15-2024 15:52-0400 Body height 150.3 cm Yoandy Dempsey MD Work Phone: [facility] 12-15-2024 15:52-0400 Body mass index (BMI) [Ratio] 41.39 kg/m2 Yoandy Dempsey MD Work Phone: [facility] 12-15-2024 15:52-0400 Body weight 93.5 kg Yoandy Dempsey MD Work Phone: [facility] 12-15-2024 15:52-0400 Diastolic blood pressure 83 mm[Hg] Yoandy Dempsey MD Work Phone: [facility] 12-15-2024 15:52-0400 Heart rate 101 /min Yoandy Dempsey MD Work Phone: [facility] 12-15-2024 15:52-0400 Respiratory rate 16 /min Yoandy Dempsey MD Work Phone: [facility] 12-15-2024 15:52-0400 SaO2% (BldA) [Mass fraction] 98 % Yoandy Dempsey MD Work Phone: [facility] 12-15-2024 15:52-0400 Systolic blood pressure 133 mm[Hg] Yoandy Dempsey MD Work Phone: [facility] 12-13-2024 15:05-0400 Body mass index (BMI) [Ratio] 41.2 kg/m2 Anuj Navarro MD Work Phone: [facility] 12-13-2024 15:05-0400 Body weight 92.53 kg Anuj Navarro MD Work Phone: [facility] 12-13-2024 15:05-0400 Diastolic blood pressure 95 mm[Hg] Anuj Navarro MD Work Phone: [facility] 12-13-2024 15:05-0400 Heart rate 110 /min Anuj Navarro MD Work Phone: [facility] 12-13-2024 15:05-0400 SaO2% (BldA) [Mass fraction] 97 % Anuj Navarro MD Work Phone: [facility] 12-13-2024 15:05-0400 Systolic blood pressure 139 mm[Hg] Anuj Navarro MD Work Phone: [facility] 10-19-2024 07:58-0400 Body mass index (BMI) [Ratio] 41.2 kg/m2 Belkys Mcintyre BOOK EDITOR.LAUNDRY MACHINE MECHANIC Work Phone: [facility] 10-19-2024 07:58-0400 Body weight 92.53 kg Belkys Mcintyre BOOK EDITOR.LAUNDRY MACHINE MECHANIC Work Phone: [facility] 10-19-2024 07:58-0400 Diastolic blood pressure 86 mm[Hg] Belkys Mcintyre BOOK EDITOR.LAUNDRY MACHINE MECHANIC Work Phone: [facility] 10-19-2024 07:58-0400 Heart rate 89 /min Belkys Suppchan BOOK EDITOR.LAUNDRY MACHINE MECHANIC Work Phone: [facility] 10-19-2024 07:58-0400 SaO2% (BldA) [Mass fraction] 97 % Belkys Suppan BOOK EDITOR.LAUNDRY MACHINE MECHANIC Work Phone: [facility] 10-19-2024 07:58-0400 Systolic blood pressure 118 mm[Hg] Belkys Suppchan BOOK EDITOR.LAUNDRY MACHINE MECHANIC Work Phone: [facility] 10-12-2024 14:53-0400 Body temperature 98 [degF] Dr. Chip Arreola MD Work Phone: [facility] 10-12-2024 14:53-0400 Diastolic blood pressure 72 mm[Hg] Dr. Chip Arreola MD Work Phone: 4(753)373-117236 [place] [address] 10-12-2024 14:53-0400 Heart rate 103 /min Dr. Chip Arreola MD Work Phone: 6(872)051-305236 [place] [address] 10-12-2024 14:53-0400 Respiratory rate 14 /min Dr. Chip Arreola MD Work Phone: [facility] 10-12-2024 14:53-0400 SaO2% (BldA) [Mass fraction] 96 % Dr. Chip Arreola MD Work Phone: [facility] 10-12-2024 14:53-0400 Systolic blood pressure 90 mm[Hg] Dr. Chip Arreola MD Work Phone: 8(542)393-380136 [place] [address] 10-12-2024 01:30-0400 Inhaled oxygen concentration 21 % Dr. Chip Arreola MD Work Phone: 8(850)901-577336 [place] [address] 10-11-2024 11:25-0400 Body height 152.[address] Chip Arreola MD Work Phone: 6(240)169-775936 [place] [address] 10-11-2024 11:25-0400 Body mass index (BMI) [Ratio] 40.1 kg/m2 Dr. Chip Arreola MD Work Phone: 1(594)398-875436 [place] [address] 10-11-2024 11:25-0400 Body weight 93.[address] Chip Arreola MD Work Phone: 6(559)024-641626 [place] [address] 10-11-2024 11:18-0400 Body temperature 99.2 [degF] Dr. Chip Arreola MD Work Phone: 9(638)367-981626 [place] [address] 10-11-2024 11:18-0400 Diastolic blood pressure 93 mm[Hg] Dr. Chip Arreola MD Work Phone: 3(634)292-655026 [place] [address] 10-11-2024 11:18-0400 Heart rate 116 /min Dr. Chip Arreola MD Work Phone: 3(107)071-476126 [place] [address] 10-11-2024 11:18-0400 Respiratory rate 18 /min Dr. Chip Arreola MD Work Phone: 7(461)295-868626 [place] [address] 10-11-2024 11:18-0400 SaO2% (BldA) [Mass fraction] 95 % Dr. Chip Arreola MD Work Phone: 8(338)594-501626 [place] [address] 10-11-2024 11:18-0400 Systolic blood pressure 115 mm[Hg] Dr. Chip Arreola MD Work Phone: 1(054)397-183126 [place] [address] 10-04-2024 10:34-0400 Diastolic blood pressure 40 mm[Hg] Belkys Suppan BOOK EDITOR.LAUNDRY MACHINE MECHANIC Work Phone: [facility] 10-04-2024 10:34-0400 Systolic blood pressure 114 mm[Hg] Belkys Suppan BOOK EDITOR.LAUNDRY MACHINE MECHANIC Work Phone: [facility] 10-04-2024 09:58-0400 Body mass index (BMI) [Ratio] 42.21 kg/m2 Belkys Suppan BOOK EDITOR.LAUNDRY MACHINE MECHANIC Work Phone: [facility] 10-04-2024 09:58-0400 Body weight 94.8 kg Belkys Suppan BOOK EDITOR.LAUNDRY MACHINE MECHANIC Work Phone: [facility] 10-04-2024 09:58-0400 Heart rate 91 /min Belkys Suppan BOOK EDITOR.LAUNDRY MACHINE MECHANIC Work Phone: [facility] 10-04-2024 09:58-0400 SaO2% (BldA) [Mass fraction] 98 % Belkys Suppan BOOK EDITOR.LAUNDRY MACHINE MECHANIC Work Phone: [facility] 05-27-2024 08:27-0500 Body mass index (BMI) [Ratio] 41.4 kg/m2 Belkys Suppan BOOK EDITOR.LAUNDRY MACHINE MECHANIC Work Phone: [facility] 05-27-2024 08:27-0500 Body temperature 97.39 [degF] Belkys Suppan BOOK EDITOR.LAUNDRY MACHINE MECHANIC Work Phone: [facility] 05-27-2024 08:27-0500 Body weight 92.99 kg Belkys Suppan BOOK EDITOR.LAUNDRY MACHINE MECHANIC Work Phone: [facility] 05-27-2024 08:27-0500 Diastolic blood pressure 80 mm[Hg] Belkys Suppan BOOK EDITOR.LAUNDRY MACHINE MECHANIC Work Phone: [facility] 05-27-2024 08:27-0500 Heart rate 61 /min Belkys Suppan BOOK EDITOR.LAUNDRY MACHINE MECHANIC Work Phone: [facility] 05-27-2024 08:27-0500 SaO2% (BldA) [Mass fraction] 94 % Belkys Suppan BOOK EDITOR.LAUNDRY MACHINE MECHANIC Work Phone: [facility] 05-27-2024 08:27-0500 Systolic blood pressure 132 mm[Hg] Belkys Suppan BOOK EDITOR.LAUNDRY MACHINE MECHANIC Work Phone: [facility] 04-19-2024 13:44-0500 Body mass index (BMI) [Ratio] 42.21 kg/m2 Belkys Suppan BOOK EDITOR.LAUNDRY MACHINE MECHANIC Work Phone: [facility] 04-19-2024 13:44-0500 Body weight 94.8 kg Belkys Suppan BOOK EDITOR.LAUNDRY MACHINE MECHANIC Work Phone: [facility] 04-19-2024 13:44-0500 Diastolic blood pressure 84 mm[Hg] Belkys Suppan BOOK EDITOR.LAUNDRY MACHINE MECHANIC Work Phone: [facility] 04-19-2024 13:44-0500 Heart rate 76 /min Belkys Suppan BOOK EDITOR.LAUNDRY MACHINE MECHANIC Work Phone: [facility] 04-19-2024 13:44-0500 Respiratory rate 16 /min Belkys Suppan BOOK EDITOR.LAUNDRY MACHINE MECHANIC Work Phone: [facility] 04-19-2024 13:44-0500 SaO2% (BldA) [Mass fraction] 98 % Belkys Suppan BOOK EDITOR.LAUNDRY MACHINE MECHANIC Work Phone: [facility] 04-19-2024 13:44-0500 Systolic blood pressure 128 mm[Hg] Belkys Suppan BOOK EDITOR.LAUNDRY MACHINE MECHANIC Work Phone: [facility] 04-05-2024 14:15-0500 Body height 149.9 cm Anuj Navarro MD Work Phone: [facility] 04-05-2024 14:15-0500 Body mass index (BMI) [Ratio] 42.62 kg/m2 Anuj Navarro MD Work Phone: [facility] 04-05-2024 14:15-0500 Body weight 95.71 kg Anuj Navarro MD Work Phone: [facility] 04-05-2024 14:15-0500 Diastolic blood pressure 85 mm[Hg] Anuj Navarro MD Work Phone: [facility] 04-05-2024 14:15-0500 Heart rate 103 /min Anuj Navarro MD Work Phone: [facility] Comment on above: 103-125 h/o afib 04-05-2024 14:15-0500 Respiratory rate 14 /min Anuj Navarro MD Work Phone: [facility] 04-05-2024 14:15-0500 SaO2% (BldA) [Mass fraction] 97 % Anuj Navarro MD Work Phone: [facility] 04-05-2024 14:15-0500 Systolic blood pressure 122 mm[Hg] Anuj Navarro MD Work Phone: [facility] 03-09-2024 10:24-0500 Body mass index (BMI) [Ratio] 40.94 kg/m2 Belkys Suppan BOOK EDITOR.LAUNDRY MACHINE MECHANIC Work Phone: [facility] 03-09-2024 10:24-0500 Body weight 94.6 kg Belkys Suppan BOOK EDITOR.LAUNDRY MACHINE MECHANIC Work Phone: [facility] 03-09-2024 10:24-0500 Diastolic blood pressure 78 mm[Hg] Belkys Suppan BOOK EDITOR.LAUNDRY MACHINE MECHANIC Work Phone: [facility] 03-09-2024 10:24-0500 Heart rate 110 /min Belkys Suppan BOOK EDITOR.LAUNDRY MACHINE MECHANIC Work Phone: [facility] 03-09-2024 10:24-0500 Respiratory rate 16 /min Belkys Suppan BOOK EDITOR.LAUNDRY MACHINE MECHANIC Work Phone: [facility] 03-09-2024 10:24-0500 SaO2% (BldA) [Mass fraction] 100 % Belkys Suppan BOOK EDITOR.LAUNDRY MACHINE MECHANIC Work Phone: [facility] 03-09-2024 10:24-0500 Systolic blood pressure 122 mm[Hg] Belkys Suppan BOOK EDITOR.LAUNDRY MACHINE MECHANIC Work Phone: [facility] 11-27-2023 08:56-0400 Body height 152 cm Belkys Suppan BOOK EDITOR.LAUNDRY MACHINE MECHANIC Work Phone: [facility] 11-27-2023 08:56-0400 Body mass index (BMI) [Ratio] 41.23 kg/m2 Belkys Suppan BOOK EDITOR.LAUNDRY MACHINE MECHANIC Work Phone: [facility] 11-27-2023 08:56-0400 Body weight 95.25 kg Belkys Suppan BOOK EDITOR.LAUNDRY MACHINE MECHANIC Work Phone: [facility] 11-27-2023 08:56-0400 Diastolic blood pressure 80 mm[Hg] Belkys Suppan BOOK EDITOR.LAUNDRY MACHINE MECHANIC Work Phone: [facility] 11-27-2023 08:56-0400 Heart rate 78 /min Belkys Suppan BOOK EDITOR.LAUNDRY MACHINE MECHANIC Work Phone: [facility] 11-27-2023 08:56-0400 SaO2% (BldA) [Mass fraction] 98 % Belkys Mcintyre BOOK EDITOR.LAUNDRY MACHINE MECHANIC Work Phone: [facility] 11-27-2023 08:56-0400 Systolic blood pressure 120 mm[Hg] Belkys Mcintyre BOOK EDITOR.LAUNDRY MACHINE MECHANIC Work Phone: [facility] 08-25-2023 10:57-0400 Body height 152.4 cm Anuj Navarro MD Work Phone: [facility] 08-25-2023 10:57-0400 Body mass index (BMI) [Ratio] 40.15 kg/m2 Anuj Navarro MD Work Phone: [facility] 08-25-2023 10:57-0400 Body weight 93.26 kg Anuj Navarro MD Work Phone: [facility] 08-25-2023 10:57-0400 Diastolic blood pressure 86 mm[Hg] Anuj Navarro MD Work Phone: [facility] 08-25-2023 10:57-0400 Heart rate 72 /min Anuj Navarro MD Work Phone: [facility] 08-25-2023 10:57-0400 SaO2% (BldA) [Mass fraction] 98 % Anuj Navarro MD Work Phone: [facility] 08-25-2023 10:57-0400 Systolic blood pressure 118 mm[Hg] Anuj Navarro MD Work Phone: [facility] 03-12-2023 11:32-0500 Body height 152.4 cm Chip Arreola MD Work Phone: [facility] 03-12-2023 11:32-0500 Body weight 92.44 kg Chip Arreola MD Work Phone: [facility] 03-12-2023 11:32-0500 Diastolic blood pressure 72 mm[Hg] Chip Arreola MD Work Phone: [facility] 03-12-2023 11:32-0500 Heart rate 86 /min Chip Arreola MD Work Phone: [facility] 03-12-2023 11:32-0500 SaO2% (BldA) [Mass fraction] 99 % Chip Arreola MD Work Phone: [facility] 03-12-2023 11:32-0500 Systolic blood pressure 108 mm[Hg] Chip Arreola MD Work Phone: [facility] 02-24-2023 10:35-0500 Diastolic blood pressure 82 mm[Hg] Aunj Navarro MD Work Phone: [facility] 02-24-2023 10:35-0500 Systolic blood pressure 128 mm[Hg] Anuj Navarro MD Work Phone: [facility] 02-24-2023 10:22-0500 Body weight 93.89 kg Anuj Navarro MD Work Phone: [facility] 02-24-2023 10:22-0500 Heart rate 68 /min Anuj Navarro MD Work Phone: [facility] 02-24-2023 10:22-0500 SaO2% (BldA) [Mass fraction] 97 % Anuj Navarro MD Work Phone: [facility] 04-15-2022 14:15-0500 Diastolic blood pressure 86 mm[Hg] Chip Arreola MD Work Phone: [facility] 04-15-2022 14:15-0500 Systolic blood pressure 130 mm[Hg] Chip Arreola MD Work Phone: [facility] 04-15-2022 13:39-0500 Body height 152.4 cm Chip Arreola MD Work Phone: [facility] 04-15-2022 13:39-0500 Body weight 95.89 kg Chip Arreola MD Work Phone: [facility] 04-15-2022 13:39-0500 Heart rate 102 /min Chip Arreola MD Work Phone: [facility] 04-15-2022 13:39-0500 SaO2% (BldA) [Mass fraction] 99 % Chip Arreola MD Work Phone: [facility] 04-14-2022 09:24-0500 Diastolic blood pressure 88 mm[Hg] Ginger Freado PA-C Work Phone: [facility] 04-14-2022 09:24-0500 Heart rate 84 /min Ginger Freado PA-C Work Phone: [facility] 04-14-2022 09:24-0500 Systolic blood pressure 155 mm[Hg] Ginger Freado PA-C Work Phone: [facility] 04-14-2022 09:17-0500 Body height 154.9 cm Ginger Freado PA-C Work Phone: [facility] 04-14-2022 09:17-0500 Body mass index (BMI) [Ratio] 39.68 kg/m2 Ignger Freado PA-C Work Phone: [facility] 04-14-2022 09:17-0500 Body temperature 99.19 [degF] Ginger Freado PA-C Work Phone: [facility] 04-14-2022 09:17-0500 Body weight 95.25 kg Ginger Freado PA-C Work Phone: [facility] 04-14-2022 09:17-0500 Respiratory rate 16 /min Ginger Freado PA-C Work Phone: [facility] 04-14-2022 09:17-0500 SaO2% (BldA) [Mass fraction] 95 % Ginger Freado PA-C Work Phone: [facility] 03-25-2022 10:25-0500 Body weight 95.25 kg Anuj Navarro MD Work Phone: [facility] 03-25-2022 10:25-0500 Diastolic blood pressure 80 mm[Hg] Anuj Navarro MD Work Phone: [facility] 03-25-2022 10:25-0500 Heart rate 120 /min Anuj Navarro MD Work Phone: [facility] 03-25-2022 10:25-0500 SaO2% (BldA) [Mass fraction] 94 % Anuj Navarro MD Work Phone: [facility] 03-25-2022 10:25-0500 Systolic blood pressure 140 mm[Hg] Anuj Navarro MD Work Phone: [facility] 12-24-2021 14:48-0400 Body height 152.4 cm Chip Arreola MD Work Phone: [facility] 12-24-2021 14:48-0400 Body weight 96.53 kg Chip Arreola MD Work Phone: [facility] 12-24-2021 14:48-0400 Diastolic blood pressure 80 mm[Hg] Chip Arreola MD Work Phone: [facility] 12-24-2021 14:48-0400 Heart rate 99 /min Chip Arreola MD Work Phone: [facility] 12-24-2021 14:48-0400 SaO2% (BldA) [Mass fraction] 97 % Chip Arreola MD Work Phone: [facility] 12-24-2021 14:48-0400 Systolic blood pressure 128 mm[Hg] Chip Arreola MD Work Phone: [facility] 10-25-2021 13:34-0400 Body weight 98.43 kg Chip Arreola MD Work Phone: [facility] 10-25-2021 13:34-0400 Diastolic blood pressure 82 mm[Hg] Chip Arreola MD Work Phone: [facility] 10-25-2021 13:34-0400 Heart rate 88 /min Chip Arreola MD Work Phone: [facility] 10-25-2021 13:34-0400 Systolic blood pressure 122 mm[Hg] Chip Arreola MD Work Phone: [facility] 08-27-2021 13:20-0400 Body height 152.4 cm Donald Massey MD Work Phone: [facility] 08-27-2021 13:20-0400 Body weight 97.07 kg Donald Massey MD Work Phone: [facility] 08-22-2021 10:03-0400 Body temperature 97.2 [degF] Jaleel Craft MD Work Phone: [facility] 08-22-2021 10:03-0400 Body weight 100.15 kg Jaleel Craft MD Work Phone: [facility] 08-22-2021 10:03-0400 Diastolic blood pressure 80 mm[Hg] Jaleel Craft MD Work Phone: [facility] 08-22-2021 10:03-0400 Heart rate 90 /min Jaleel Craft MD Work Phone: [facility] 08-22-2021 10:03-0400 Respiratory rate 20 /min Jaleel Craft MD Work Phone: [facility] 08-22-2021 10:03-0400 SaO2% (BldA) [Mass fraction] 96 % Jaleel Craft MD Work Phone: [facility] 08-22-2021 10:03-0400 Systolic blood pressure 132 mm[Hg] Jaleel Craft MD Work Phone: [facility] Encounters Encounter Date Encounter Type Care Provider Facility Start: 01-29-2025 End: 01-29-2025 ambulatory [facility] Facility:[facility] Start: 01-26-2025 End: 01-26-2025 ambulatory [facility] Facility:[facility] Start: 12-27-2024 ambulatory [facility] Facility :[facility] Start: 12-22-2024 End: 12-22-2024 ambulatory PENNIE [place] Facility:[facility] Start: 12-15-2024 End: 12-15-2024 Patient encounter procedure Yoandy Dempsey MD Work Phone: Endocrinology Comment on above: Primary hyperparathy roidism (HCC) (Primary Dx); Type 2 diabetes mellitus with diabetic microalbuminuria, without long-term current use of insulin (HCC); Mixed hyperlipidemia; Morbid obesity with BMI of 40.0-44.9, adult (HCC) Start: 12-15-2024 End: 12-15-2024 ambulatory YOANDY DEMPSEY Facility:[facility] Start: 12-13-2024 End: 12-13-2024 Patient encounter procedure Anuj Navarro MD Work Phone: Cardiology Comment on above: 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 (Primary Dx); Takotsubo cardiomyopathy; Persistent atrial fibrillation (HCC); Pulmonary HTN (HCC); H/O mitral valve disease; Chronic diastolic congestive heart failure (HCC); Essential hypertension, benign; Mixed hyperlipidemia Start: 12-13-2024 End: 12-14-2024 ambulatory ANUJ NAVARRO Facility:[facility] Start: 11-15-2024 ambulatory BELKYS MCINTYRE Fac ility:[facility] Start: 11-15-2024 End: 11-15-2024 Subsequent hospital visit by physician Screen Mammo [facility]amm[facility] Comment on above: Malignant neoplasm o f left breast in female, estrogen receptor positive, 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 ([facility]) [C50.912, Z17.0] Start: 11-04-2024 End: 11-04-2024 ambulatory CHIP ARREOLA Facility:[facility] Start: 10-19-2024 End: 10-19-2024 Telephone encounter Belkys Mcintyre BOOK EDITOR.LAUNDRY MACHINE MECHANIC Work Phone: [facility] [place] Start: 10-19-2024 End: 10-19-2024 Office outpatient visit 25 minutes Belkys Mcintyre BOOK EDITOR.LAUNDRY MACHINE MECHANIC Work Phone: [facility] [place] Comment on above: Atrial fibrillation, unspecified type (HCC) (Primary Dx); NSTEMI (non-ST elevated myocardial infarction) ([facility]) Start: 10-19-2024 End: 10-19-2024 ambulatory BELKYS MCINTYRE Facility:[facility] Start: 10-15-2024 End: 10-15-2024 ambulatory Maritza Shah MA [facility] [place] Start: 10-15-2024 End: 10-15-2024 Telephone encounter Belkys Mcintyre APRN.LAUNDRY MACHINE MECHANIC Work Phone: [facility] [place] Start: 10-13-2024 End: 10-19-2024 ambulatory Belkys Mcintyre BOOK EDITOR.LAUNDRY MACHINE MECHANIC Work Phone: [facility] [place] Comment on above: Medicatio Start: 10-13-2024 End: 10-13-2024 Follow-up encounter Belkys Mcintyre APRN.LAUNDRY MACHINE MECHANIC Work Phone: [facility] Comment on above: Follow up after hosp ital stay Start: 10-12-2024 Non-patient / Non-visit [facility] Ramy [facility] Start: 10-11-2024 [facility]: 10-11-[facility] Non-patient / Non-[facility] Work Phone: Start: 10-11-2024 ambulatory Lida Blum Facility:[facility] Start: 10-11-2024 End: 10-12-2024 Evaluation and management of inpatient Dr. Dayanna Miranda DO -Progressive Care Unit Work Phone: Start: 10-11-2024 Evaluation and manag ement of inpatient Dr. Lida Blum MD -Progressive Care Unit Work Phone: Start: 10-11-2024 ambulatory [facility] [facility] Facility:[facility] Start: 10-11-2024 ambulatory Inocente Romero [facility] [place] Start: 10-11-2024 Non-patient / Non-visit [facility] Ram[facility] Start: 10-07-2024 End: 10-07-2024 Patient encounter procedure Dominga Reese PA-C Work Phone: Orthopaedics Comment on above: Rotator cuff tear ar thropathy, left; Rotator cuff tear arthropathy, right Start: 10-07-2024 End: 10-07-2024 ambulatory DOMINGA REESE Facility:[facility] Start: 10-05-2024 End: 10-06-2024 Follow-up encounter Belkys Mcintyre BOOK EDITOR.LAUNDRY MACHINE MECHANIC Work Phone: [facility] [place] Comment on above: Results (/) Start: 10-04-2024 End: 10-04-2024 ambulatory BELKYS MCINTYRE Facility:[facility] Start: 10-04-2024 End: 10-04-2024 Office outpatient visit 15 minutes Belkys Mcintyre BOOK EDITOR.LAUNDRY MACHINE MECHANIC Work Phone: [facility] [place] Comment on above: Hypercalcemia (Prima ry Dx); Bilateral leg edema; Essential hypertension, benign; Congestive heart failure, unspecified HF chronicity, unspecified heart failure type (HCC); Malignant neoplasm of left breast in female, estrogen receptor positive, 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 (HCC); Body mass index (BMI) 40.0-44.9, adult (HCC); Chronic kidney disease, stage 3a (HCC); Abnormality of gait; Falling episodes Start: 10-04-2024 End: 10-04-2024 ambulatory [facility] Facility:[facility] Start: 09-29-2024 End: 09-29-2024 ambulatory Belkys Mcintyre BOOK EDITOR.LAUNDRY MACHINE MECHANIC Work Phone: [facility] [place] Comment on above: Bloodwork Start: 07-24-2024 End: 07-26-2024 Refill Chip Arreola MD Work Phone: [facility] [place] Comment on above: Refill Request Start: 06-24-2024 End: 06-24-2024 ambulatory [facility] Facility:[facility] Start: 06-24-2024 End: 06-24-2024 Patient encounter procedure Dayanna Lewis MD Work Phone: Orthopaedics Comment on above: Rotator cuff tear ar thropathy, left (Primary Dx); Rotator cuff tear arthropathy, right Start: 06-18-2024 End: 06-18-2024 [facility] Facility:[facility] Start: 06-18-2024 End: 06-18-2024 Subsequent hospital visit by physician [facility] [place] Work Phone: Radiology Comment on above: Rotator cuff tear ar thropathy, right [M75.101, M12.811] Start: 06-14-2024 End: 06-14-2024 Orders Only Dayanna Lewis MD Work Phone: Orthopaedics Comment on above: Rotator cuff tear ar thropathy, left (Primary Dx) Start: 06-07-2024 End: 06-07-2024 ambulatory Blossom O'Oleg PT [facility] Comment on above: Falls frequently (Pr imary Dx) Rotator cuff tear ar thropathy, right (Primary Dx) Start: 05-31-2024 End: 05-31-2024 Follow-up encounter Belkys Mcintyre APRN.LAUNDRY MACHINE MECHANIC Work Phone: [facility] Start: 05-28-2024 End: 07-28-2024 Follow-up encounter Belkys Mcintyre APRN.LAUNDRY MACHINE MECHANIC Work Phone: [facility] Start: 05-27-2024 End: 05-27-2024 Subsequent hospital visit by physician [facility] [place] Work Phone: Radiology Comment on above: Pain of right hip [M 25.551] Start: 05-27-2024 End: 05-27-2024 ambulatory CHIP ARREOLA Facility:[facility] Start: 05-27-2024 End: 05-27-2024 Office outpatient visit 25 minutes Belkys Mcintyre APRN.LAUNDRY MACHINE MECHANIC Work Phone: [facility] Comment on above: Itching with [...] deficiency Start: 05-26-2024 End: 05-26-2024 ambulatory [facility] Comment on above: Falls frequently (Pr imary Dx) Start: 05-24-2024 End: 05-24-2024 Patient encounter procedure Belkys Mcintyre APRN.LAUNDRY MACHINE MECHANIC Work Phone: [facility] Comment on above: Appointment Start: 05-24-2024 End: 05-24-2024 ambulatory Blossom O'Oleg PT [facility] Comment on above: Falls frequently (Pr imary Dx) Start: 05-10-2024 End: 05-10-2024 ambulatory Tanya Naeem ANIMAL HOSPITAL OFFICE SUPERVISOR Work Phone: [facility] Comment on above: Falls frequently (Pr imary Dx) Start: 05-07-2024 End: 05-07-2024 ambulatory Blossom O'Oleg PT [facility] Comment on above: Falls frequently (Pr imary Dx) Start: 05-03-2024 End: 05-03-2024 ambulatory Blossom O'Oleg PT [facility] Comment on above: Falls frequently (Pr imary Dx) Start: 04-30-2024 End: 04-30-2024 ambulatory Tanya Meza ANIMAL HOSPITAL OFFICE SUPERVISOR Work Phone: [facility] Comment on above: Falls frequently (Pr imary Dx) Start: 04-26-2024 End: 04-26-2024 ambulatory Blossom O'Oleg PT [facility] Comment on above: Falls frequently (Pr imary Dx) Start: 04-22-2024 End: 04-22-2024 Telephone encounter Abiola Weaver MD Work Phone: Ophthalmology Start: 04-19-2024 End: 04-19-2024 Office outpatient visit 15 minutes Belkys Mcintyre BOOK EDITOR.LAUNDRY MACHINE MECHANIC Work Phone: [facility] Comment on above: Infected abrasion of left lower extremity, initial encounter (Primary Dx) Start: 04-19-2024 End: 04-19-2024 ambulatory BELKYS MCINTYRE Facility:[facility] Start: 04-19-2024 End: 04-19-2024 ambulatory Blossom O'Oleg PT [facility] Comment on above: Falls frequently (Pr imary Dx) Start: 04-15-2024 End: 04-15-2024 ambulatory Belkys Mcintyre BOOK EDITOR.LAUNDRY MACHINE MECHANIC Work Phone: [facility] Comment on above: gabapentin Start: 04-08-2024 End: 04-08-2024 ambulatory [facility] Facility:[facility] Start: 04-05-2024 End: 04-05-2024 ambulatory [facility] Facility:[facility] Start: 04-05-2024 End: 04-05-2024 Patient encounter procedure Anuj Navarro MD Work Phone: Cardiology Comment on above: Persistent atrial fi brillation (HCC) (Primary Dx); Chronic diastolic congestive heart failure (HCC); Essential hypertension, benign; Pulmonary HTN (HCC); Morbid obesity with BMI of 40.0-44.9, adult (HCC) Start: 03-31-2024 End: 04-01-2024 ambulatory Belkys Mcintyre APRN.LAUNDRY MACHINE MECHANIC Work Phone: [facility] [place] Comment on above: Xarelto Start: 03-29-2024 End: 03-29-2024 ambulatory Blossom White PT [facility] Comment on above: Falls frequently (Pr imary Dx); Frequent falls Start: 03-24-2024 End: 03-25-2024 Refill Anuj Navarro MD Work Phone: Cardiology Comment on above: Refill Request Start: 03-09-2024 End: 03-09-2024 Subsequent hospital visit by physician [facility] [place] Work Phone: Radiology Comment on above: Low back pain, unspe cified back pain laterality, unspecified chronicity, unspecified whether sciatica present [M54.50] Start: 03-09-2024 End: 03-09-2024 ambulatory [facility] Facility:[facility] Start: 03-09-2024 End: 03-09-2024 Office outpatient visit 25 minutes Belkys Mcintyre BOOK EDITOR.LAUNDRY MACHINE MECHANIC Work Phone: [facility] Comment on above: Low back pain, unspe cified back pain laterality, unspecified chronicity, unspecified whether sciatica present (Primary Dx); DDD (degenerative disc disease), thoracic; Tremor; Falls frequently Start: 12-26-2023 End: 12-26-2023 Telephone encounter Chip Arreola MD [facility] Phone: [facility] Comment on above: Patient Question Start: 11-27-2023 End: 11-27-2023 Patient encounter procedure Belkys Mcintyre RIVKA Work Phone: [facility] Comment on above: Essential tremor (Pr imary Dx); Encounter for screening examination for other mental health and behavioral disorders; Screening for depression; Persistent atrial fibrillation (HCC); Malignant neoplasm of overlapping sites of left breast in female, estrogen receptor positive (HCC); Type 2 diabetes mellitus with diabetic chronic kidney disease, unspecified CKD stage, unspecified whether chcf insulin use (HCC); Obstructive sleep apnea syndrome; Essential hypertension, benign Start: 11-13-2023 Documentation procedure Mammog garima Coordinator [facility] Department Start: 11-13-2023 Letter encounter Mammography Coordinator [facility] Start: 11-12-2023 End: 11-12-2023 Subsequent hospital visit by physician Screen Mammo [facility]amm[facility] Start: 11-03-2023 ambulatory Chip Arreola MD Work Phone: [facility] Comment on above: Screening mammogram Start: 10-31-2023 End: 10-31-2023 Patient encounter procedure [...] 06-27-2023 Refill Chip Arreola MD Work Phone: [facility] Comment on above: Refill Request Start: 06-18-2023 Telephone encounter Chip Arreola MD Work Phone: [facility] Comment on above: Results Start: 03-12-2023 End: 03-12-2023 ambulatory [facility] Work Phone: Start: 03-12-2023 End: 03-12-[address] [facility] Work Phone: Start: 03-12-2023 End: 03-12-2023 Subsequent hospital visit by physician [facility] Work Phone: Radiology Comment on above: Pain of left lower e xtremity [M79.605] Start: 03-12-2023 End: 03-12-2023 Patient encounter procedure Chip Arreola MD Work Phone: [facility] Comment on above: Pain of [...] Subsequent hospital visit by physician Screen Mammo [facility] Comment on above: Screening breast exa mination [Z12.39] Start: 05-22-2022 Telephone encounter Marybeth porter APRN.CNP Work Phone: [facility] Comment on above: Results Start: [...] Chip Arreola MD Work Phone: [facility] [place] Comment on above: Type 2 diabetes rip [...] receptor positive, 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 (HCC); 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; Hypokalemia; Type 2 diabetes mellitus with diabetic chronic kidney disease, unspecified CKD stage, unspecified whether roasterman insulin use (HCC) Start: 04-14-2022 End: 04-14-2022 ambulatory GINGER FLORES [facility] Start: 04-14-2022 End: 04-14-2022 Office outpatient new 45 minutes Ginger LANDON-C Work Phone: [facility] Comment on above: Cellulitis of left l ower extremity (Primary Dx) Start: 03-25-2022 End: 03-25-2022 Patient encounter procedure Anuj Navarro MD Work Phone: Cardiology Comment on above: Persistent atrial fi brillation (HCC) (Primary Dx); Essential hypertension, benign; Chronic diastolic congestive heart failure (HCC); Pulmonary HTN (HCC); Paroxysmal atrial fibrillation (HCC) Start: 03-15-2022 ambulatory Mathew wharton PA-C Work Phone: [facility] [place] Comment on above: Sinus infection Start: 01-21-2022 End: 01-21-2022 Patient encounter procedure Donald Massey MD Work Phone: Orthopaedics Comment on above: De Quervain's tenosy novitis (Primary Dx); Right wrist pain Start: 12-24-2021 End: 12-24-2021 Patient encounter procedure Chip Arreola MD Work Phone: [facility] Comment on above: Essential hypertensi [...] 12-06-2021 Subsequent hospital visit by physician Xr [facility] [place] Work Phone: Radiology Comment on above: Other closed intra-a rticular fracture of distal end of right radius, initial encounter [S52.574U] Start: 12-04-2021 ambulatory Donald Massey MD Work Phone: Orthopaedics Comment on above: Wrist Start: 10-29-2021 Telephone encounter Chip Arreola MD Work Phone: [facility] Comment on above: Results Start: 10-26-2021 ambulatory An[facility] Start: 10-26-2021 Follow-up encounter Anuj Navarro MD Work Phone: Cardiology Comment on above: appointment follow u p Start: 10-26-2021 End: 10-26-2021 Subsequent hospital visit by physician Screen Mammo [facility] Comment on above: Malignant neoplasm o f left breast in female, estrogen receptor positive, 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 (HCC) [C50.912, Z17.0] Start: 10-25-2021 End: 10-25-2021 Patient encounter procedure Chip Arreola MD Work Phone: [facility] Comment on above: Malignant neoplasm o f left breast in female, estrogen receptor positive, 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 (HCC) (Primary Dx); Paroxysmal atrial fibrillation (HCC); Essential hypertension, benign; Pulmonary HTN (HCC); Chronic diastolic congestive heart failure (HCC); Type 2 diabetes mellitus without complication, without long-term current use of insulin (HCC) Start: 10-16-2021 Refill Chip Arreola MD Work Phone: [facility] Comment on above: Refill Request Start: 09-10-2021 End: 09-10-2021 Patient encounter procedure Karlene Troncoso PA-C Work Phone: Orthopaedics Comment on above: Other closed intra-a rticular fracture of distal end of right radius, initial encounter (Primary Dx) Start: 09-10-2021 End: 09-10-2021 Subsequent hospital visit by physician Jl [facility] [place] Work Phone: Radiology Comment [...] 08-22-2021 Subsequent hospital visit by physician Jl [facility] [place] Work Phone: Radiology Comment on above: Acute pain of right wrist [M25.531] Start: 08-22-2021 End: 08-22-2021 Patient encounter procedure Jaleel Craft MD Work Phone: [facility] Comment on above: Other closed intra-a rticular fracture of distal end of right radius, initial encounter (Primary Dx); Acute pain of right wrist Start: 08-20-2021 Orders Only Martin Mary APRN.CNP Work Phone: Orthopaedics Comment on above: Pain in right hip (P rimary Dx) Start: 07-02-2021 ambulatory Mathew HALLC Work Phone: [facility] [place] Comment on above: Handicap placard Start: 03-04-2020 End: 03-04-2020 Subsequent hospital visit by physician Xr [facility] [place] Work Phone: Radiology Comment on above: Acute pain of left k nee [M25.562] Start: 03-05-2018 End: 03-05-2018 Patient encounter procedure Other Other NOTES/RESULT S Start: 03-02-2018 End: 03-02-2018 Patient encounter procedure Chip Carter Work Phone: Division of Surgical Oncology Start: 02-12-2018 End: 02-12-2018 Patient encounter procedure Other Other NOTES/RESULT S Start: 02-11-2018 End: 02-11-2018 Patient encounter procedure Other Other NOTES/RESULT S Start: 01-23-2018 End: 01-23-2018 Patient encounter procedure Other Other NOTES/RESULT S Procedures Date Procedure Procedure Detail Performing Clinician Start: 10-12-[address] Chip Arreola MD Work Phone: Start: 10-11-2024 X-ray of chest, PA a [...] Adult depression scr eening assessment Belkys Mcintyre BOOK EDITOR.LAUNDRY MACHINE MECHANIC Work Phone: Start: 10-31-2023 End: 10-31-2023 Computerized ophthalmic imaging retina Abiola Weaver MD Work Phone: Start: 03-12-2023 Radex ankle complete minimum 3 views Chip Arreola MD Work Phone: Start: 11-08-2022 Screening mammograph y bi 2-view breast inc cad Chip Arreola MD Work Phone: Start: 05-16-2022 Radex shoulder compl ete minimum 2 views Dominga Reese PA-C Work Phone: Start: 10-26-2021 Screening mammograph y bi 2-view breast inc cad Chip Arreola MD Work Phone: Start: 10-18-2021 Adult depression scr eening assessment Chip Arreola MD Work Phone: Start: 09-10-2021 Radex wrist complete minimum 3 views Donald Massey MD Work Phone: Start: 08-22-2021 Radex wrist complete minimum 3 views Jaleel Craft MD Work Phone: Start: 06-17-2020 Adult depression scr eening assessment RUDDY Marino PA-C Work Phone: Start: 03-04-2020 Radiologic exam knee complete 4/more views Blossom Lange BOOK EDITOR.LAUNDRY MACHINE MECHANIC Work Phone: Start: 02-12-2018 End: 02-12-2018 OUTSIDE PATHOLOGY REPORTS Other Other Start: 02-12-2018 End: 02-12-2018 ULTRASOUND (OUTSIDE) Other Other Start: 02-11-2018 End: 02-11-2018 MG Breast Views Other Other Start: 02-11-2018 End: 02-11-2018 ULTRASOUND (OUTSIDE) Other Other Start: 01-23-2018 End: 01-23-2018 MG Breast Views Other Other Plan of Treatment Date Care Activity Detail Author Start: 10-19-2025 Annual PCP Team Chronic Disease Visit Annual PCP Team Chronic Disease Visit [facility] Start: 10-04-2025 Annual PCP Team Chronic Disease Visit Annual PCP Team Chronic Disease Visit [facility] Start: 10-04-2025 Creatinine measurement Serum Creatinine [facility] Start: 07-25-2025 End: 07-25-2025 Patient encounter procedure 07/25/2025 8:20 AM EDT Office Visit Cardiology [address] [place] [address] Anuj Navarro MD [address] [place] [address] Persistent atrial fibrillation (HCC) [I48.19] Cardiology Comment on above: Persistent atrial fibrillation (HCC) [I4 8.19] Start: 05-27-2025 Annual PCP Team Chronic Disease Visit Annual PCP Team Chronic Disease Visit [facility] Start: 05-27-2025 Creatinine measurement Serum Creatinine [facility] Start: 05-27-2025 Hepatitis B screening Urine Albumin:Creatinine Ratio [facility] Start: 05-27-2025 Hepatitis B surface antibody level LDL Cholesterol [facility] Start: 04-19-2025 Annual PCP Team Chronic Disease Visit Annual PCP Team Chronic Disease Visit [facility] Start: 2025 End: 2025 Patient encounter procedure 2025 8:40 AM EST Office Visit [facility] [place] [address] [facility] [address] Belkys Mcintyre APRN.LAUNDRY MACHINE MECHANIC [address] [facility] [address] 6 month exam [facility] [place] Comment on above: 6 month exam Start: 03-14-2025 End: 12-06-2025 Comprehensive metabolic 2000 panel - Serum or Plasma COMPREHENSIVE METABOLIC PANEL Lab Routine Coronary artery disease involving picayune coronary artery of picayune heart without angina pectoris Mixed hyperlipidemia Expected: 03/14/2025, Expires: 12/06/2025 [facility] Comment on above: Expected: 03/14/2025, Expires: Start: 03-14-2025 End: 12-06-2025 Lipid 1996 panel - Serum or Plasma LIPID PANEL, FASTING Lab Routine Mixed hyperlipidemia Expected: 03/14/2025, Expires: 12/06/2025 [facility] Comment on above: Expected: 03/14/2025, Expires: Start: 03-14-2025 End: 03-14-2025 ambulatory 03/14/2025 8:15 AM EST Results Only [place] [facility] [address] [place] [address] Lab [facility] Comment on above: Lab Start: 03-09-2025 BP Controlled (<130/80) BP Controlled (<130/80) [facility] Start: 03-09-2025 Covid-19 Vaccine () Covid-19 Vaccine () [facility] Comment on above: Postponed from 12/07/2023 (Declined at t his time) Start: 02-22-2025 End: 02-22-2025 Patient encounter procedure 02/22/2025 9:40 AM EST Office Visit Cardiology [address] [place] [address] Persistent atrial fibrillation (HCC) [I48.19] Cardiology Comment on above: Persistent atrial fibrillation (HCC) [I4 8.19] Start: 02-22-2025 End: 02-22-2025 ambulatory 02/22/2025 8:15 AM EST Results Only [place] [facility] [address] [place] [address] Lab [facility] Comment on above: Lab Start: 02-14-2025 End: 12-13-2025 Echocardiography ECHO Cardiology Routine Persistent atrial fibrillation (HCC) Pulmonary HTN (HCC) Takotsubo cardiomyopathy Expected: 02/14/2025, Expires: 12/13/2025 [facility] Work Phone: Comment on above: Expected: 02/14/2025, Expires: Start: 01-05-2025 Covid-19 Vaccine () Covid-19 Vaccine () [facility] Comment on above: Postponed from 12/06/2022 (Postponed To Appropriate Date) Start: 12-22-2024 End: 12-22-2024 ambulatory 12/22/2024 8:30 AM EDT Visit (SP) Office Hematology/Oncology [address] [place], [place] [address] Pennie Higuera APRN.LAUNDRY MACHINE MECHANIC [address] [place] [address] OV/per te 12/14* Hematology/Oncology Comment on above: OV/per te 12/14* Start: 12-15-2024 End: 12-15-2024 Patient encounter procedure 12/15/2024 4:00 PM EDT Office Visit Endocrinology [address] [place] [address] [address] [place] [address] Yoandy Dempsey MD [address] [place] [address] [address] [place] [address] Elevated parathyroid hormone with normal calcium. Checked twice 6 months apart, parathyroid hormone lev Endocrinology Comment on above: Elevated parathyroid hormone with normal calcium. Checked twice 6 months apart, parathyroid hormone lev Start: 12-13-2024 End: 12-13-2024 Patient encounter procedure Cardiology Comment on above: 6 month follow up Start: 11-26-2024 Anxiety Screening Anxiety Screening [facility] Start: 11-26-2024 BP Controlled (<130/80) BP Controlled (<130/80) [facility] Start: 11-26-2024 Depression Screening Depression Screening [facility] Start: 11-26-2024 Pneumococcal Vaccine: 50+ (1 of 2 - PCV) Pneumococcal Vaccine: 50+ (1 of 2 - PCV) [facility] Comment on above: Postponed from 1963 (Declined at t his time) Start: 11-26-2024 Pneumococcal Vaccine: 65+ (1 of 2 - PCV) Pneumococcal Vaccine: 65+ (1 of 2 - PCV) [facility] Comment on above: Postponed from 1950 (Declined at t his time) Start: 11-26-2024 RSV Vaccine (1 - 1-dose 60+ series) RSV Vaccine (1 - 1-dose 60+ series) [facility] Comment on above: Postponed from 2004 (Declined at t his time) Start: 11-26-2024 RSV Vaccine (1 - 1-dose 75+ series) RSV Vaccine (1 - 1-dose 75+ series) [facility] Comment on above: Postponed from 2019 (Declined at t his time) Start: 11-26-2024 Shingrix Vaccine (1 of 2) Shingrix Vaccine (1 of 2) [facility] Comment on above: Postponed from 1994 (Declined at t his time) Start: 11-26-2024 Urine microalbumin profile DTaP,Tdap,Td Vaccine (1 - Tdap) [facility] Comment on above: Postponed from 1963 (Postponed - N ot Clinically Indicated) Start: 11-24-2024 Hemoglobin A1c measurement HbA1C [facility] Start: 11-15-2024 End: 11-15-2024 Patient encounter procedure 11/15/2024 9:10 AM EDT Appointment Mammogram [address] [place] [address] : Malignant neoplasm of left breast in [...] of both eyes Expected: 11/14/2024, Expires: 04/23/2025 [facility] Comment on above: Expected: 11/14/2024, Expires: Start: 11-14-2024 End: 04-23-2025 OCT MACULA CIRRUS OU (BOTH EYES) OCT MACULA CIRRUS OU (BOTH EYES) OPHT Imaging Routine Intermediate stage n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 Posterior vitreous detachment of both eyes Expected: 11/14/2024, Expires: 04/23/2025 [facility] Work Phone: Comment on above: Expected: 11/14/2024, Expires: Start: 10-30-2024 Glaucoma screening Dilated Retinal Exam [facility] Start: 10-19-2024 End: 10-19-2024 Patient encounter procedure 10/19/2024 8:00 AM EDT Office Visit [facility] [place] [address] [place] [address] Belkys Mcintyre APRN.LAUNDRY MACHINE MECHANIC [address] [facility] [place] [address] Hospital Follow up(mychart request [facility] [place] Comment on above: Hospital Follow up(mychart request Start: 10-18-2024 Diabetic foot examination Diabetic Foot Exam [facility] Comment on above: Postponed from 08/22/2023 (Postponed - N ot Clinically Indicated) Start: 10-12-2024 Patient discharge [facility] Start: 10-12-2024 Care planning and problem solving actions [facility] Start: 10-12-2024 End: 10-12-2024 Patient education [facility] Start: 10-12-2024 End: 10-12-2024 Provision of activity privileges [facility] Start: 10-12-2024 End: 10-12-2024 Wound care [facility] Start: 10-12-2024 End: 10-12-2024 Notification of physician [facility] Start: 10-12-2024 End: 10-12-2024 Pulse taking [facility] Start: 10-12-2024 End: 10-12-2024 Taking patient vital signs [facility] Start: 10-12-2024 End: 10-12-2024 [facility] Start: 10-12-2024 Thyroid stimulating hormone measurement [facility] Start: 10-11-2024 Continuous positive airway pressure ventilation treatment [facility] Start: 10-11-2024 Care planning and problem solving actions [facility] Start: 10-11-2024 Catheterization of vein [facility] Start: 10-11-2024 Notification of physician [facility] Start: 10-11-2024 Preoperative care [facility] Start: 10-11-2024 [facility] Start: 10-11-2024 Following clinical pathway protocol [facility] Start: 10-11-2024 End: 10-11-2024 [facility] Start: 10-11-2024 Assessment of risk of venous thromboembolism [facility] Start: 10-11-2024 Electrocardiographic procedure [facility] Start: 10-11-2024 Insertion of catheter into peripheral vein [facility] Start: 10-11-2024 Measuring intake and output [facility] Start: 10-11-2024 Oxygen therapy [facility] Start: 10-11-2024 Providing care according to standard [facility] Start: 10-11-2024 Provision of activity privileges [facility] Start: 10-11-2024 Referral to puttying and calking supervisor [facility] Start: 10-11-2024 Tobacco use cessation education [facility] Start: 10-11-2024 Verification routine [facility] Start: 10-11-2024 Admission procedure [facility] Start: 10-11-2024 [facility] Start: 10-07-2024 End: 10-07-2024 Patient encounter procedure 10/07/2024 8:40 AM EDT Office Visit Orthopaedics [address] [address] Dominga Reese PA-C [address] [id number] B/L SHOULDER INJECTION Orthopaedics Comment on above: B/L SHOULDER INJECTION Start: 10-04-2024 End: 10-04-2024 Patient encounter procedure 10/04/2024 10:20 AM EDT Office Visit [facility] [place] [address] [place] [address] Belkys Mcintyre APRN.[facility] [address] [place] [address] Need for blood work. [facility] [place] Comment on above: Need for blood work. Start: 07-13-2024 End: 07-13-2024 ambulatory 07/13/2024 9:00 AM EDT OT/PT/Speech Visit [facility] [address] [place] [address] Blossom White, PT Falls frequently [R29.6] [facility] Comment on above: Falls frequently [R29.6] Start: 07-09-2024 End: 07-09-2024 Patient encounter procedure 07/09/2024 2:30 PM EDT Office Visit [facility] [address] [address] Abiola Weaver MD [address] [place], [place] [id number] Return in about 6 months (around 05/02/2024). Ophthalmology Comment on above: Return in about 6 months (around 05/02/19). Start: 07-06-2024 End: 07-06-2024 ambulatory 07/06/2024 9:00 AM EDT OT/PT/Speech Visit [facility] [address] [place] [address] O'Blossom Dejesus, PT Falls frequently [R29.6] [facility] Comment on above: Falls frequently [R29.6] Start: 07-02-2024 Creatinine measurement Serum Creatinine [facility] Start: 07-02-2024 End: 07-02-2024 Patient encounter procedure 07/02/2024 1:00 PM EDT Office Visit [facility] [address] [address] Abiola Weaver MD [address] [place], [place] [phone] Return in about 6 months (around 05/02/2024). Ophthalmology Comment on above: Return in about 6 months (around 05/02/19). Start: 06-29-2024 End: 06-29-2024 ambulatory 06/29/2024 9:00 AM EDT OT/PT/Speech Visit [facility] [address] [place] [address] O'Blossom Dejesus, PT Falls frequently [R29.6] [facility] Comment on above: Falls frequently [R29.6] Start: 06-24-2024 End: 06-24-2024 Patient encounter procedure 06/24/2024 8:30 AM EDT Office Visit Orthopaedics [address] [address] Dayanna Lewis MD [address] [place] [address] Right shoulder follow up Orthopaedics Comment on above: Right shoulder follow up Start: 06-22-2024 End: 06-22-2024 ambulatory 06/22/2024 9:00 AM EDT OT/PT/Speech Visit [facility] [address] [place] [address] O'OlegDiannaBlossom, PT Falls frequently [R29.6] [facility] Comment on above: Falls frequently [R29.6] Start: 06-17-2024 Creatinine measurement Serum Creatinine [facility] Start: 06-17-2024 Hepatitis B screening Urine Albumin:Creatinine Ratio [facility] Start: 06-17-2024 Hepatitis B surface antibody level LDL Cholesterol [facility] Start: 06-15-2024 End: 06-15-2024 ambulatory 06/15/2024 9:00 AM EDT OT/PT/Speech Visit [facility] [address] [place] [address] O'Oleg Blossom, PT Falls frequently [R29.6] [facility] Comment on above: Falls frequently [R29.6] Start: 06-07-2024 End: 06-07-2024 ambulatory 06/07/2024 10:15 AM EST OT/PT/Speech Visit [facility] [address] [address] O'OlegClintonBlossom, PT Falls frequently [R29.6] [facility] Comment on above: Falls frequently [R29.6] Start: 06-07-2024 End: 06-07-2024 Patient encounter procedure [facility] [place] Comment on above: 6 month f/u Start: 05-27-2024 End: 08-26-2024 CBC W Auto Differential panel - Blood [facility] Comment on above: Expected: 05/27/2024, Expires: Start: 05-27-2024 End: 08-26-2024 Cobalamin (Vitamin B12) [Mass/volume] in Serum or Plasma [facility] Comment on above: Expected: 05/27/2024, Expires: Start: 05-27-2024 End: 08-26-2024 Comprehensive metabolic 2000 panel - Serum or Plasma [facility] Comment on above: Expected: 05/27/2024, Expires: Start: 05-27-2024 End: 08-26-2024 Hemoglobin A1c in Blood [facility] Comment on above: Expected: 05/27/2024, Expires: Start: 05-27-2024 End: 08-26-2024 LIPID PANEL, NONFASTING [facility] Comment on above: Expected: 05/27/2024, Expires: Start: 05-27-2024 End: 08-26-2024 Magnesium [Mass/volume] in Serum or Plasma [facility] Comment on above: Expected: 05/27/2024, Expires: Start: 05-27-2024 End: 08-26-2024 Microalbumin/Creatinine [Mass Ratio] in Urine [facility] Comment on above: Expected: 05/27/2024, Expires: Start: 05-27-2024 End: 08-26-2024 Thyrotropin [Units/volume] in Serum or Plasma [facility] Comment on above: Expected: 05/27/2024, Expires: Start: 05-27-2024 End: 05-27-2024 Patient encounter procedure 05/27/2024 8:40 AM EST Office Visit [facility] [place] [address] [place] [address] Belkys Mcintyre APRN.[employer] [address] [place] [address] Fell while exiting vehicle (05/24/24 MyChart Message) [facility] [place] Comment on above: Fell while exiting vehicle (05/24/24 MyCh art Message) Start: 05-26-2024 End: 05-26-2024 ambulatory 05/26/2024 5:15 PM EST OT/PT/Speech Visit [facility] Physical Therapy [address] [place] [address] O'Blossom Dejesus, PT R29.6 (ICD-10-CM) - Falls frequently [facility] Comment on above: R29.6 (ICD-10-CM) - Falls frequently Start: 05-24-2024 End: 05-24-2024 ambulatory 05/24/2024 9:30 AM EST OT/PT/Speech Visit [facility] [address] [place] [address] OBlossom Tabor, PT R29.6 (ICD-10-CM) - Falls frequently [facility] Comment on above: R29.6 (ICD-10-CM) - Falls frequently Start: 05-20-2024 End: 05-20-2024 ambulatory 05/20/2024 8:45 AM EST OT/PT/Speech Visit [facility] [address] [place] [address] Blossom White, PT R29.6 (ICD-10-CM) - Falls frequently [facility] Comment on above: R29.6 (ICD-10-CM) - Falls frequently Start: 05-10-2024 End: 05-10-2024 ambulatory 05/10/2024 9:30 AM EST OT/PT/Speech Visit [facility] [address] [place] [address] Dorota Mezah, [facility] [address] [place] [address] R29.6 (ICD-10-CM) - Falls frequently [facility] Comment on above: R29.6 (ICD-10-CM) - Falls frequently Start: 05-07-2024 End: 05-07-2024 ambulatory 05/07/2024 10:00 AM EST OT/PT/Speech Visit [facility] [address] [place] [address] OBlossom Tabor, PT R29.6 (ICD-10-CM) - Falls frequently [facility] Comment on above: R29.6 (ICD-10-CM) - Falls frequently Start: 05-03-2024 End: 05-03-2024 ambulatory 05/03/2024 8:45 AM EST OT/PT/Speech Visit [facility] [address] [place] [address] O'Blossom Dejesus, PT R29.6 (ICD-10-CM) - Falls frequently [facility] Comment on above: R29.6 (ICD-10-CM) - Falls frequently Start: 05-02-2024 Glaucoma screening Dilated Retinal Exam [facility] Start: 04-30-2024 End: 04-30-2024 ambulatory 04/30/2024 10:15 AM EST OT/PT/Speech Visit [facility] [address] [place] [address] Dorota Mezah, [employer]PER[employer] [address] [place] [address] R29.6 (ICD-10-CM) - Falls frequently [facility] Comment on above: R29.6 (ICD-10-CM) - Falls frequently Start: 04-26-2024 End: 04-26-2024 ambulatory 04/26/2024 1:15 PM EST OT/PT/Speech Visit [facility] [address] [place] [address] O'Blossom Dejesus, PT R29.6 (ICD-10-CM) - Falls frequently [facility] Comment on above: R29.6 (ICD-10-CM) - Falls frequently Start: 04-22-2024 End: 04-22-2024 ambulatory 04/22/2024 8:45 AM EST OT/PT/Speech Visit [facility] [address] [place] [address] O'Blossom Dejesus, PT R29.6 (ICD-10-CM) - Falls frequently [facility] Comment on above: R29.6 (ICD-10-CM) - Falls frequently Start: 04-19-2024 End: 04-19-2024 ambulatory 04/19/2024 8:45 AM EST OT/PT/Speech Visit [facility] [address] [place] [address] O'Blossom Dejesus, PT R29.6 (ICD-10-CM) - Falls frequently [facility] Comment on above: R29.6 (ICD-10-CM) - Falls frequently Start: 04-14-2024 End: 04-14-2024 ambulatory 04/14/2024 9:45 AM EST OT/PT/Speech Visit [facility] [address] [place] [address] Blossom White, PT R29.6 (ICD-10-CM) - Falls frequently [facility] Comment on above: R29.6 (ICD-10-CM) - Falls frequently Start: 04-07-2024 Medicare Advantage Annual Wellness Visit Medicare Advantage Annual Wellness Visit [facility] Start: 04-05-2024 End: 04-05-2024 Patient encounter procedure 04/05/2024 2:40 PM EST Office Visit Cardiology [address] [place] [address] Anuj Navarro MD [address] [address] 6 month follow up Cardiology Comment on above: 6 month follow up Start: 03-29-2024 End: 03-29-2024 ambulatory 03/29/2024 11:00 AM EST OT/PT/Speech Visit [facility] [address] [place] [address] OBlossom Tabor, PT [place] frequently [R29.6] [facility] Comment on above: Falls frequently [R29.6] Start: 03-12-2024 Annual PCP Team Chronic Disease Visit Annual PCP Team Chronic Disease Visit [facility] Start: 03-12-2024 BP Controlled (<130/80) BP Controlled (<130/80) [facility] Start: 02-13-2024 Hepatitis C antibody, confirmatory test Dilated Retinal Exam [facility] Start: 12-19-2023 Hemoglobin A1c measurement HbA1C [facility]ermo Start: 12-07-2023 Covid-19 Vaccine ( season) Covid-19 Vaccine ( season) [facility] Start: 12-07-2023 Covid-19 Vaccine () Covid-19 Vaccine () [facility] Start: 10-31-2023 End: 10-31-2023 Patient encounter procedure 10/31/2023 12:30 PM EDT Office Visit [facility] [address] [address] Abiola Weaver MD [address] [place] [address] Return in about 6 months (around 10/31/2023). Ophthalmology Comment on above: Return in about 6 months (around 10/31/19). Start: 10-17-2023 Annual PCP Team Chronic Disease Visit Annual PCP Team Chronic Disease Visit [facility] Start: 10-17-2023 Hepatitis C Screening Hepatitis C Screening [facility] Comment on above: Postponed from 1962 (Declined at t his time) Start: 10-17-2023 Urine microalbumin profile DTaP,Tdap,Td Vaccine (1 - Tdap) [facility] Comment on above: Postponed from 1963 (Declined at t his time) Start: 10-11-2023 Serum Creatinine Serum Creatinine [facility] Start: 08-22-2023 3 comp foot exam completed Diabetic Foot Exam [facility] Start: 08-22-2023 Diabetic foot examination [facility] Start: 07-07-2023 End: 02-25-2024 Echocardiography ECHO Cardiology Routine Persistent atrial fibrillation (HCC) H/O mitral valve disease Expected: 07/07/2023, Expires: 02/25/2024 [facility] Work Phone: Comment on above: Expected: 07/07/2023, Expires: Start: 06-19-2023 End: 09-18-2023 Basic metabolic 2000 panel - Serum or Plasma BASIC METABOLIC PNL Lab Routine Hypokalemia Expected: 06/19/2023, Expires: 09/18/2023 [facility] Work Phone: Comment on above: Expected: 06/19/2023, Expires: Start: 04-15-2023 ANNUAL PCP TEAM CHRONIC DISEASE VISIT ANNUAL PCP TEAM CHRONIC DISEASE VISIT [facility] Start: 04-12-2023 Hemoglobin A1c/Hemoglobin.total in Blood HbA1C [facility] Start: 04-12-2023 Hepatitis B surface antibody level LDL CHOLESTEROL [facility] Start: 04-12-2023 SERUM CREATININE SERUM CREATININE [facility] Start: 04-07-2023 Advance Directive Discussion Advance Directive Discussion [facility] Start: 04-07-2023 Behavioral Health Screening Behavioral Health Screening [facility] Start: 04-07-2023 Depression Assessment Depression Assessment [facility] Start: 03-15-2023 ANNUAL PCP TEAM CHRONIC DISEASE VISIT ANNUAL PCP TEAM CHRONIC DISEASE VISIT [facility] Start: 12-24-2022 ANNUAL PCP TEAM CHRONIC DISEASE VISIT ANNUAL PCP TEAM CHRONIC DISEASE VISIT [facility] Start: 12-06-2022 Covid-19 Vaccine () Covid-19 Vaccine () [facility] Start: 10-27-2022 HEMOGLOBIN/HEMATOCRIT HEMOGLOBIN/HEMATOCRIT [facility] Start: 10-27-2022 Hepatitis B screening URINE ALBUMIN:CREATININE RATIO [facility] Start: 10-27-2022 SERUM CREATININE SERUM CREATININE [facility] Start: 10-25-2022 3 comp foot exam completed DIABETIC FOOT EXAM [facility] Start: 10-25-2022 ANNUAL PCP TEAM CHRONIC DISEASE VISIT ANNUAL PCP TEAM CHRONIC DISEASE VISIT [facility] Start: 10-25-2022 BP CONTROLLED (<130/80) BP CONTROLLED (<130/80) [facility] Start: 10-25-2022 COVID-19 VACCINE (#1) COVID-19 VACCINE (#1) [facility] Comment on above: Postponed from 1944 (Declined at t his time) Start: 10-25-2022 PNEUMOCOCCAL: 65+ (1 - PCV) PNEUMOCOCCAL: 65+ (1 - PCV) [facility] Comment on above: Postponed from 1950 (Declined at t his time) Start: 10-25-2022 SHINGRIX VACCINE (1 of 2) SHINGRIX VACCINE (1 of 2) [facility] Comment on above: Postponed from 1994 (Declined at t his time) Start: 10-18-2022 Adult depression screening assessment DEPRESSION SCREENING [facility] Start: 10-13-2022 End: 12-13-2022 Basic metabolic 2000 panel - Serum or Plasma BASIC METABOLIC PNL Lab Routine Stage 3 chronic kidney disease, unspecified whether stage 3a or 3b CKD (HCC) Expected: 10/13/2022, Expires: 12/13/2022 [facility] Work Phone: Comment on above: Expected: 10/13/2022, Expires: 3 Start: 10-13-2022 End: 12-13-2022 CBC panel - Blood by Automated count CBC Lab Routine Persistent atrial fibrillation (HCC) Stage 3 chronic kidney disease, unspecified whether stage 3a or 3b CKD (HCC) Expected: 10/13/2022, Expires: 12/13/2022 [facility] Work Phone: Comment on above: Expected: 10/13/2022, Expires: 3 Start: 10-13-2022 End: 12-13-2022 Hemoglobin A1c in Blood HGB A1C Lab Routine Type 2 diabetes mellitus without complication, without long-term current use of insulin (HCC) Type 2 diabetes mellitus with diabetic chronic kidney disease (HCC) Expected: 10/13/2022, Expires: 12/13/2022 [facility] Work Phone: Comment on above: Expected: 10/13/2022, Expires: 3 Start: 10-10-2022 Hemoglobin A1c measurement A1C [facility] Start: 10-10-2022 Hemoglobin A1c/Hemoglobin.total in Blood HBA1C [facility] Start: 05-21-2022 Hepatitis B screening URINE ALBUMIN:CREATININE RATIO [facility] Start: 05-21-2022 Hepatitis B surface antibody level LDL CHOLESTEROL [facility] Start: 04-29-2022 Hemoglobin A1c/Hemoglobin.total in Blood HBA1C [facility] Start: 04-27-2022 ANNUAL PCP TEAM CHRONIC DISEASE VISIT ANNUAL PCP TEAM CHRONIC DISEASE VISIT [facility] Start: 04-27-2022 End: 06-27-2022 Hemoglobin A1c in Blood HGB A1C Lab Routine Type 2 diabetes mellitus without complication, without long-term current use of insulin (HCC) Expected: 04/27/2022, Expires: 06/27/2022 [facility] Work Phone: Comment on above: Expected: 04/27/2022, Expires: 3 Start: 04-27-2022 Urine microalbumin profile DTAP,TDAP,TD (1 - Tdap) [facility] Comment on above: Postponed from 1963 (Declined at t his time) Start: 04-15-2022 End: 06-15-2022 POTASSIUM BLD POTASSIUM BLD Lab Routine Hypokalemia Expected: 04/15/2022, Expires: 06/15/2022 [facility] Work Phone: Comment on above: Expected: 04/15/2022, Expires: 3 Start: 04-07-2022 End: 12-24-2022 CBC W Auto Differential panel - Blood CBC + DIFF Lab Routine Essential hypertension, benign Expected: 04/07/2022, Expires: 12/24/2022 [facility] Work Phone: Comment on above: Expected: 04/07/2022, Expires: 3 Start: 04-07-2022 End: 12-24-2022 Comprehensive metabolic 2000 panel - Serum or Plasma COMP METABOLIC PANEL Lab Routine Essential hypertension, benign Expected: 04/07/2022, Expires: 12/24/2022 [facility] Work Phone: Comment on above: Expected: 04/07/2022, Expires: 3 Start: 04-07-2022 End: 06-07-2022 Hemoglobin A1c in Blood HGB A1C Lab Routine Type 2 diabetes mellitus without complication, without long-term current use of insulin (HCC) Expected: 04/07/2022, Expires: 06/07/2022 [facility] Work Phone: Comment on above: Expected: 04/07/2022, Expires: 3 Start: 04-07-2022 End: 12-24-2022 Lipid 1996 panel - Serum or Plasma LIPID PANEL BASIC Lab Routine Essential hypertension, benign Expected: 04/07/2022, Expires: 12/24/2022 [facility] Work Phone: Comment on above: Expected: 04/07/2022, Expires: 3 Start: 12-06-2021 Influenza vaccination Sequential Influenza Vaccine (#1) [facility] Start: 11-18-2021 Hemoglobin A1c/Hemoglobin.total in Blood HBA1C [facility] Start: 10-25-2021 End: 12-25-2021 ALBUMIN/CREAT RATIO RND UR ALBUMIN/CREAT RATIO RND UR Lab Routine Type 2 diabetes mellitus without complication, without long-term current use of insulin (HCC) Expected: 10/25/2021, Expires: 12/25/2021 [facility] Work Phone: Comment on above: Expected: 10/25/2021, Expires: 2 Start: 10-25-2021 End: 12-25-2021 Basic metabolic 2000 panel - Serum or Plasma BASIC METABOLIC PNL Lab Routine Type 2 diabetes mellitus without complication, without long-term current use of insulin (HCC) Expected: 10/25/2021, Expires: 12/25/2021 [facility] Work Phone: Comment on above: Expected: 10/25/2021, Expires: 2 Start: 10-25-2021 End: 12-25-2021 CBC W Auto Differential panel - Blood CBC + DIFF Lab Routine Type 2 diabetes mellitus without complication, without long-term current use of insulin (HCC) Expected: 10/25/2021, Expires: 12/25/2021 [facility] Work Phone: Comment on above: Expected: 10/25/2021, Expires: 2 Start: 09-22-2021 Hepatitis C antibody, confirmatory test DILATED RETINAL EXAM [facility] Start: 06-22-2021 3 comp foot exam completed DIABETIC FOOT EXAM [facility] Start: 06-17-2021 Adult depression screening assessment DEPRESSION SCREENING [facility] Start: 04-07-2021 ADVANCE DIRECTIVE DISCUSSION ADVANCE DIRECTIVE DISCUSSION [facility] Start: 04-07-2021 DEPRESSION ASSESSMENT DEPRESSION ASSESSMENT [facility] Start: 2019 RSV Vaccine (1 - 1-dose 75+ series) RSV Vaccine (1 - 1-dose 75+ series) [facility] Start: 02-11-2019 Protein mass conc MAMMOGRAM SCREENING DISCUSSION [facility] Work Phone: Start: 03-25-2018 End: 03-25-2018 Ambulatory 03/25/2018 Office Visit Radiation Oncology Melly Junior MD [address] [place] [address] Department of Radiation Oncology Start: 03-05-2018 End: 03-05-2018 Ambulatory 03/05/2018 Office Visit Surgical Oncology Chip Carter III, MD [address] [place] [address] Division of Surgical Oncology Start: 12-06-2017 Influenza vaccination INFLUENZA VACCINE (#1) [facility] Work Phone: Start: 2009 Fall risk assessment Falls Risk Assessment [facility] Start: 2009 Pneumococcal vaccination PNEUMOCOCCAL VACCINE SERIES (1 of 2 - PCV13) [facility] Work Phone: Start: 2009 Pneumococcal Vaccine: Age 65+ (1 - PCV) Pneumococcal Vaccine: Age 65+ (1 - PCV) [facility] Start: 2004 Hepatitis B Vaccine (1 of 3 - Risk 3-dose series) Hepatitis B Vaccine (1 of 3 - Risk 3-dose series) [facility] Start: 2004 RSV Vaccine (1 - 1-dose 60+ series) RSV Vaccine (1 - 1-dose 60+ series) [facility] Start: 1994 Administration of herpes zoster vaccine Zoster Vaccines (1 of 2) [facility] Start: 1994 Protein mass conc COLON CANCER SCREENING DISCUSSION [facility] Work Phone: Start: 1994 SHINGRIX VACCINE (1 of 2) SHINGRIX VACCINE (1 of 2) [facility] Start: 1984 Fasting lipid profile LIPID SCREENING [facility] Work Phone: Start: 1984 Screening for malignant neoplasm of breast Mammogram [facility] Start: 1965 Screening for malignant neoplasm of cervix PAP SMEAR DISCUSSION [facility] Work Phone: Start: 1963 Pneumococcal Vaccine: 50+ (1 of 2 - PCV) Pneumococcal Vaccine: 50+ (1 of 2 - PCV) [facility] Start: 1963 SHINGRIX VACCINE (1 of 2) SHINGRIX VACCINE (1 of 2) [facility] Start: 1963 Third diphtheria, tetanus and acellular pertussis (DTaP) vaccination TDAP (ADULT) [facility] Work Phone: Start: 1963 Urine microalbumin profile [facility] Start: 1962 Anxiety Screening Anxiety Screening [facility] Start: 1962 BP CONTROLLED (<130/80) BP CONTROLLED (<130/80) [facility] Start: 1962 Depression Screening Depression Screening [facility] Start: 1962 HEPATITIS C SCREENING HEPATITIS C SCREENING [facility] Start: 1962 Hepatitis C screening Hepatitis C Screening [facility] Start: 1962 Tetanus vaccination TETANUS [facility] Work Phone: Start: 1956 Depression screening using PHQ-9 (Patient Health Questionnaire 9) score Depression Screening (PHQ-2/9) [facility] Start: 1954 Diabetic foot examination Foot Exam [facility] Start: 1954 Glaucoma screening Ophthalmology Exam [facility] Start: 1954 Urine screening for protein Urine Microalbumin [facility] Start: 1950 Pneumococcal Vaccine: 65+ (1 - PCV) Pneumococcal Vaccine: 65+ (1 - PCV) [facility] Start: 1950 Pneumococcal Vaccine: 65+ (1 of 2 - PCV) Pneumococcal Vaccine: 65+ (1 of 2 - PCV) [facility] Start: 1950 PNEUMOCOCCAL: 65+ (1 - PCV) PNEUMOCOCCAL: 65+ (1 - PCV) [facility] Start: 1949 COVID-19 VACCINE (#1) COVID-19 VACCINE (#1) [facility] Start: 1949 COVID-19 VACCINE (1) COVID-19 VACCINE (1) [facility] Start: 1947 History and physical examination, annual for health maintenance Wellness Visit [facility] Start: 1944 COVID-19 VACCINE (#1) COVID-19 VACCINE (#1) [facility] Start: 1944 End: 1944 Screening for osteoporosis [facility] Start: 1944 Tetanus vaccination Tetanus: Every 10yrs [facility] Anion gap in Serum o r Plasma [facility] End: 01-14-2026 BD DXA TRABECULAR BONE SCORE (TBS) BD DXA TRABECULAR BONE SCORE (TBS) Radiology Routine Primary hyperparathyroidism (HCC) 1 Occurrences starting 12/15/2024 until 01/14/2026 [facility] Comment on above: 1 Occurrences starting 12/15/2024 until 01/14/2026 BUN/Creatinine ratio [facility] Calcium [Mass/volume ] in Serum or Plasma [facility] CALCIUM, 24 HR URINE CALCIUM, 24 HR URINE Lab Routine Primary hyperparathyroidism (HCC) Ordered: 12/15/2024 [facility] Comment on above: Ordered: 12/15/2024 Carbon dioxide, tota l [Moles/volume] in Central venous blood [facility] Cholesterol [Mass/vo lume] in Serum or Plasma [facility] Cholesterol in HDL [Mass/volume] in Serum or Plasma [facility] Creatinine [Mass/vol ume] in Serum or Plasma [facility] CREATININE, 24 HOUR URINE CREATI NINE, 24 HOUR URINE Lab Routine Primary hyperparathyroidism (HCC) Ordered: 12/15/2024 [facility] Comment on above: Ordered: 12/15/2024 End: 11-12-2023 DBT Breast - bilateral screening [facility] Work Phone: Comment on above: ONCE for 1 Occurrences starting 11/12/19 24 until 11/12/2023 End: 11-03-2025 DBT Breast - bilateral screening MAHAD SCREENING W TERE Radiology Routine Malignant neoplasm of left breast in female, estrogen receptor positive, 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 (HCC) 1 Occurrences starting 10/04/2024 until 11/03/2025 [facility] Work Phone: Comment on above: 1 Occurrences starting 10/04/2024 until 11/03/2025 DBT Breast - bilater al screening MAHAD SCREENING W TERE Radiology Routine Malignant neoplasm of left breast in female, estrogen receptor positive, 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 (HCC) 11/15/2024 9:09 AM EDT [facility] Work Phone: End: 01-14-2026 DXA Skeletal system.axial Views for bone density DXA-AXIAL SKELETON Radiology Routine Primary hyperparathyroidism (HCC) 1 Occurrences starting 12/15/2024 until 01/14/2026 [facility] Work Phone: Comment on above: 1 Occurrences starting 12/15/2024 until 01/14/2026 End: 10-19-2025 Echocardiography ECHO Cardiology Routine NSTEMI (non-ST elevated myocardial infarction) (HCC) 1 Occurrences starting 10/19/2024 until 10/19/2025 [facility] Work Phone: Comment on above: 1 Occurrences starting 10/19/2024 until 10/19/2025 Erythrocyte mean corpuscular volume determination [facility] Glucose [Mass/volume ] in Serum or Plasma [facility] Hematocrit [Volume Fraction] of Blood [facility] Hemoglobin [Mass/vol ume] in Blood [facility] Leukocytes [#/volume ] in Blood [facility] Low density lipoprot ein cholesterol measurement [facility] Mean corpuscular hem oglobin concentration determination [facility] Mean corpuscular hem oglobin determination [facility] Measurement of renal function [facility] End: 12-03-2024 MG Breast Screening MAHAD SCREENING Radiology Routine Encounter for screening mammogram for malignant neoplasm of breast 1 Occurrences starting 11/04/2023 until 12/03/2024 [facility] Work Phone: Comment on above: 1 Occurrences starting 11/04/2023 until 12/03/2024 Mri any jt upper ext remity w/o contrast matrl MRI WRIST WO IVCON RT Radiology Routine Closed fracture of right wrist with routine healing, subsequent encounter Ordered: 12/31/2021 [facility] Work Phone: Comment on above: Ordered: 12/31/2021 Neutrophil count [facility] Neutrophil percent differential count [facility] Platelets [#/volume] in Blood [facility] Potassium measurement [facility] Red blood cell count [facility] Red cell distributio n width determination [facility] End: 11-24-2022 Screening mammography bi 2-view breast inc cad MAHAD SCREENING Radiology Routine Malignant neoplasm of left breast in female, estrogen receptor positive, 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 (HCC) 1 Occurrences starting 10/25/2021 until 11/24/2022 [facility] Work Phone: Comment on above: 1 Occurrences starting 10/25/2021 until 11/24/2022 Serum chloride measurement [facility] Sodium measurement [facility] Total cholesterol:HD L ratio measurement [facility] Triglycerides measurement [facility] Troponin T.cardiac [Mass/volume] in Serum or Plasma by High sensitivity method [facility] Troponin T.cardiac [Mass/volume] in Serum or Plasma by High sensitivity method [facility] Urea nitrogen [Mass/ volume] in Serum or Plasma [facility] Urinalysis complete panel - Urine URINALYSIS, WITH MICROSCOPIC Lab Routine Falls frequently 03/09/2024 11:15 AM EST [facility] End: 03-12-2024 US LEG VEIN DVT UNL VAS LAB US LEG VEIN DVT UNL VAS LAB Vascular Lab STAT Pain of left lower extremity 1 Occurrences starting 03/12/2023 until 03/12/2024 [facility] Work Phone: Comment on above: 1 Occurrences starting 03/12/2023 until 03/12/2024 VLDL cholesterol measurement [facility] End: 04-10-2024 XR ANKLE GENERAL 3V AP/LAT/OBL LEFT XR ANKLE GENERAL 3V AP/LAT/OBL LEFT Radiology Routine Pain of left lower extremity 1 Occurrences starting 03/12/2023 until 04/10/2024 [facility] Work Phone: Comment on above: 1 Occurrences starting 03/12/2023 until 04/10/2024 XR ANKLE GENERAL 3V AP/LAT/OBL LEFT XR ANKLE GENERAL 3V AP/LAT/OBL LEFT Radiology Routine Pain of left lower extremity 03/12/2023 12:26 PM [facility] Work Phone: End: 09-20-2022 XR HIP 2V AP/LAT RIGHT (AK,FL,ME) XR HIP 2V AP/LAT RIGHT (AK,FL,ME) Radiology Routine Pain in right hip 1 Occurrences starting 08/21/2021 until 09/20/2022 [facility] Work Phone: Comment on above: 1 Occurrences starting 08/21/2021 until 09/20/2022 End: 04-08-2025 XR Lumbar spine 3 Views XR LUMBAR GENERAL 3V AP/LAT/L5-S1 Radiology Routine Low back pain, unspecified back pain laterality, unspecified chronicity, unspecified whether sciatica present 1 Occurrences starting 03/09/2024 until 04/08/2025 [facility] Work Phone: Comment on above: 1 Occurrences starting 03/09/2024 until 04/08/2025 XR Lumbar spine 3 Views XR LUMBA R GENERAL 3V AP/LAT/L5-S1 Radiology Routine Low back pain, unspecified back pain laterality, unspecified chronicity, unspecified whether sciatica present 03/09/2024 12:07 PM [facility] End: 06-26-2025 XR Pelvis and Hip - right AP and Lateral frog XR HIP GENERAL 3V PELV/AP/LAT RIGHT Radiology Routine Pain of right hip 1 Occurrences starting 05/27/2024 until 06/26/2025 [facility] Work Phone: Comment on above: 1 Occurrences starting 05/27/2024 until 06/26/2025 XR Pelvis and Hip - right AP and Lateral frog XR HIP GENERAL 3V PELV/AP/LAT RIGHT Radiology Routine Pain of right hip 05/27/2024 9:44 AM [facility] End: 07-14-2025 XR Shoulder - left 3 Views XR SHOULDER GENERAL 3V OR MORE AP/TRUE AP/OTHER LEFT Radiology Routine Rotator cuff tear arthropathy, left 1 Occurrences starting 06/14/2024 until 07/14/2025 [facility] Work Phone: Comment on above: 1 Occurrences starting 06/14/2024 until 07/14/2025 XR Shoulder - left 3 Views XR SH OULDER GENERAL 3V OR MORE AP/TRUE AP/OTHER LEFT Radiology Routine Rotator cuff tear arthropathy, left 06/18/2024 1:27 PM EDT [facility] End: 07-07-2025 XR Shoulder - right 3 Views XR SHOULDER GENERAL 3V OR MORE AP/TRUE AP/OTHER RIGHT Radiology Routine Rotator cuff tear arthropathy, right 1 Occurrences starting 06/07/2024 until 07/07/2025 [facility] Work Phone: Comment on above: 1 Occurrences starting 06/07/2024 until 07/07/2025 XR Shoulder - right 3 Views XR S HOULDER GENERAL 3V OR MORE AP/TRUE AP/OTHER RIGHT Radiology Routine Rotator cuff tear arthropathy, right 06/18/2024 1:23 PM EDT [facility] Work Phone: End: 06-13-2023 XR SHOULDER GENERAL 3V OR MORE AP/TRUE AP/OTHER RIGHT XR SHOULDER GENERAL 3V OR MORE AP/TRUE AP/OTHER RIGHT Radiology Routine Pain in joint of right shoulder 1 Occurrences starting 05/14/2022 until 06/13/2023 [facility] Work Phone: Comment on above: 1 Occurrences starting 05/14/2022 until 06/13/2023 End: 04-08-2025 XR Thoracic spine AP and Lateral and Swimmers XR THORACIC GENERAL 3V AP/LAT/SWIMMERS Radiology Routine DDD (degenerative disc disease), thoracic 1 Occurrences starting 03/09/2024 until 04/08/2025 [facility] Comment on above: 1 Occurrences starting 03/09/2024 until 04/08/2025 XR Thoracic spine AP and Lateral and Swimmers XR THORACIC GENERAL 3V AP/LAT/SWIMMERS Radiology Routine DDD (degenerative disc disease), thoracic 03/09/2024 12:07 PM EST [facility] End: 12-06-2021 XR WRIST GENERAL 3V PA/LAT/OBL RIGHT [facility] Work Phone: Comment on above: 1 Occurrences starting 12/06/2021 until 12/06/2021 [facility] Payers Date Payer Category Payer Self-pay [id number] 2015 Medicare MMO MEDICARE MMO MEDADVANTAGE O [id number] 2015-Present [phone] [address] [place] [address] [facility] [id number] 2015 Medicare [id number] 2015 Medicare (Managed Care) MMO KEVIN DVANTAGE O [id number] 2015 Medicare [id number] 2009 Government (not [facility] care or Medicaid) [facility] [id number] 2009 Unknown [facility] [id number] 2009-Present [phone] [address] [address] [place] [address] Indemnity [id number] 2009 Unknown [id number] 2009 Unknown [id number] 1944 Unknown [id number] Medicare [id number] Unknown [id number] Unknown [id number] Unknown [id number] Unknown [id number] Unknown [id number] Unknown [id number] Unknown [id number] Social History Date Type Detail Facility [facility] Work Phone: Start: 1945 Sex Assigned At Not on file [facility] Work Phone: Start: 03-05-2018 End: 10-11-2024 Tobacco smoking status NHIS Never smoker [facility] Start: 05-21-2021 End: 12-15-2024 Alcohol intake Current non-drinker of alcohol (finding) [facility] Start: 12-21-2019 End: 03-15-2022 History SDOH Alcohol Frequency 1 [facility] Start: 12-21-2019 End: 03-15-2022 History SDOH Stress 2 [facility] Start: 1945 Sex Assigned At Female [facility] Start: 02-03-2020 End: 04-14-2022 Exposure to SARS-CoV-2 (event) Not sure [facility] Start: 10-19-2021 End: 03-15-2022 History SDOH Social Connections Phone 5 [facility] Start: 10-19-2021 End: 03-15-2022 History SDOH Social Connections Jew 3 [facility] Start: 10-19-2021 End: 03-15-2022 History SDOH Social Connections Living 4 [facility] Start: 03-15-2022 History SDOH Alcohol Std Drinks 0 [facility] Start: 03-25-2022 Tobacco smoking status FLIS Tobacco smoking consumption unknown [facility] Start: 03-15-2022 End: 10-16-2022 History of Social function [facility] Start: 03-15-2022 End: 10-16-2022 Social connection and isolation panel [facility] Do you belong to any clubs or organizations such as lutheran groups, unions, fraternal or athletic groups, or school groups? Yes [facility] Are you now , , , , never or living with a partner? [facility] How often to you hav e a drink containing alcohol? Never [facility] Start: 03-08-2012 How many standard drinks containing alcohol do you have on a typical day? Patient does not drink [facility] How hard is it for y ou to pay for the very basics like food, housing, medical care, and heating Not very hard [facility] Do you feel stress - tense, restless, nervous, or anxious, or unable to sleep at night because your mind is troubled all the time - these days [OSQ] Only a little [facility] (I/We) worried wheth er (my/our) food would run out before (I/we) got money to buy more. Never true [facility] In the past 12 month s, was there a time when you were not able to pay the mortgage or rent on time? No [facility] Start: 01-28-2019 Gender identity Identifies as female gender (finding) [facility] Start: 01-28-2019 Sexual orientation Heterosexual (finding) [facility] Start: 09-04-2018 None [facility] Start: 09-04-2018 Alone [facility] Medical Equipment Procedure Code Equipment Code Equipment Origin al Text Equipment Identifier Dates Ravindra Bn Endur Sst 40gm Med Vsc - [id number] Start: 09-09-2011 Comment on above: Description: SMARTSE T MV BONE CEMENT Ravindra Bn Endur Sst 40gm Med Vsc - [id number] Start: 05-31-2013 Pfc Sigma Insert Bearing Stabilized 3 10mm [id number] Start: 03-05-2020 Comp Fem 3 Rt Kn Ps Pfc Sig - [id number] Start: 09-09-2011 Comment on above: Description: SIGMA F EMORAL POSTERIOR STABILIZED CEMENTED RIGHT Comp Tibtry 2 Kn Ravindra Mdlr Sig - [id number] Start: 09-09-2011 Comment on above: Description: P.F.C. SIGMA TIBIAL TRAY FIXED BEARING MODULAR COCR 2 Ins Tib 2 17.5mm Kn Uhmwpe - [id number] Start: 09-09-2011 Comment on above: Description: P.F.C. SIGMA CROSS LINKED STABILIZED INSERT Ins Tib 3 10mm K n Xlnk Gvf - [id number] Start: 05-31-2013 Comp Fem 3 Lt Kn Ps Pfc Sig - [id number] Start: 05-31-2013 Comp Tibtry 3 Kn Ravindra Mdlr Sig - [id number] Start: 05-31-2013 Insert Sigma 3 X lk Cocr 12.5mm Tibial Stabilize Knee - [id number] Start: 03-05-2020 Dome Pat 38mm Pf c Sig Std Kn - [id number] Start: 09-09-2011 Comment on above: Description: OVAL DO ME PATELLA 3 PEG Goals Date Patient Goal Desired Activity /State Personal health goal Functional Status Date Assessment Result Facility 10-12-2024 Functional status Ambulates;Beds [place] [employer] Work Phone: 03-09-2020 Are you deaf, or do you have serious difficulty hearing No 03/09/2020 4:06 PM Hardy Chicas, JAMAR No [facility] 03-09-2020 Are you blind, or do you have serious difficulty seeing, even when wearing glasses No 03/09/2020 4:06 PM Hardy Chicas, JAMAR No [facility] 03-09-2020 Do you have serious difficulty walking or climbing stairs Yes 03/09/2020 4:06 PM Hardy Chicas, JAMAR Yes [facility] 03-09-2020 Do you have difficul ty dressing or bathing Yes 03/09/2020 4:06 PM Hardy Chicas, JAMAR Yes [facility] 03-09-2020 Because of a physica l, mental, or emotional condition, do you have difficulty doing errands alone such as visiting a physician's office or shopping Yes 03/09/2020 4:06 PM Hardy Chicas, JAMAR Yes [facility] Mental Status Date Assessment Result Facility 10-12-2024 Cognitive function Voice/Name [facility] Work Phone: 10-11-2024 Cognitive function Awake;Alert;A ppropriate; Follows Commands [facility] Work Phone: 03-09-2020 Because of a physica l, mental, or emotional condition, do you have serious difficulty concentrating, remembering, or making decisions No 03/09/2020 4:06 PM Hardy Chicas, JAMAR No [facility] Clinical Notes 12-03-2019 to 01-29-2025 Patient Yoandy Paul MD - 12/15/2024 4:00 PM EDTPatient Anuj Iqbal MD - 12/13/2024 3:20 PM Abran Garcia Mammo Tech - 11/15/2024 9:10 AM EDT Note Date & Type Note Facility 01-29-2025 Note HNO ID: [id number] Author: HANDY MENDES RT(R) Service: ? Author Type: Technologist Type: Progress Notes Filed: 01/29/2025 11:02 Note Text: Radiology Service Progress Note PATIENT NAME: Kesha Carmichael DATE OF SERVICE: January 29, 2025 TIME: 10:55 AM PATIENT IDENTITY VERIFICATION COMPLETED USING TWO (2) IDENTIFIERS: Name and Date of confirmed by patient verbally. FALL SCREENING: Has the patient had 2 falls in the last year or 1 fall with injury or currently using an Ambulatory Assistive Device (Walker, Cane, Wheelchair, Crutches, etc.)? No PATIENT GENDER DATA: Assigned female at . status: : No status: NO. PATIENT RELEVANT IMPLANT DATA REVIEWED: Not Applicable PATIENT PRESENTS WITH AN IMPLANTABLE OR ATTACHED INSPECTOR OPTICAL INSTRUMENT: No RADIOLOGY DEPARTMENT: General X-ray: Exam(s) Completed: Lower Extremity X-Ray(s): Foot, Left PERIPHERAL IV DATA: Not applicable SIGNED BY: RT John(R) January 29, 2025 10:55 AM [facility] 01-29-2025 Note HNO ID: [id number] Author: ALFREDO PALMER APRN.LAUNDRY MACHINE MECHANIC Service: ? Author Type: Nurse Practitioner Type: Progress Notes Filed: 01/29/2025 11:33 Note Text: URGENT [facility]ARE [facility] Subjective Kesha Carmichael is a 79 year old female. Patient presents with: Pain (foot): red, swollen and pain x 1 week, was seen on 01/26/25, labs done told to take an extra potassium and lasix x 3 days HPI Nontoxic-appearing 79-year-old female history of atrial fibrillation, CHF, and DM presents urgent care chief complaint left great toe pain. Duration of symptoms ongoing for the past week. States pain has worsened. Seen by PCP on the of this month. Labs obtained. Uric acid within normal limits. Sed rate slightly elevated. BNP elevated. Otherwise labs are unremarkable denies any fever body aches or chills. No nausea vomiting or abdominal pain. Does see podiatry. Does have a follow-up this Friday. No known injuries. No surgeries before previously to the foot. History of bunion. Past medical history prescription medications allergies reviewed. Review of Systems Constitutional: Negative for activity change, diaphoresis, fatigue and fever. Musculoskeletal: Positive for gait problem and joint swelling. Negative for arthralgias, back pain, myalgias, neck pain and neck stiffness. Skin: Negative for pallor, rash and wound. Neurological: Negative for dizziness, seizures, syncope, weakness, light-headedness, numbness and headaches. Psychiatric/Behavioral: Negative for confusion. Objective BP 130/72 Pulse 72 Temp 36.9 ?C (98.4 ?F) Resp 16 Wt 91.3 kg (201 lb 4.5 oz) SpO2 94% BMI 40.42 kg/m? Physical Exam Musculoskeletal: Comments: Mild edema noted to bilateral lower ankles. Dry skin noted bilaterally. Swelling of left foot and first interphalangeal joint noted. Pain with palpation over first metatarsal joint. No breaks in skin. Mild erythema noted. Neurovascular intact {ASSESSMENT/PLAN: 1. Foot pain, left - ICD9: 729.5, ICD10: M79.672 - XR FOOT GENERAL 3V AP/LAT/OBL LEFT IMPRESSION: No acute osseous abnormality. Degenerative changes as described. No acute findings noted on today's imaging. Low suspicion for cellulitis. No breaks in skin noted high suspicion for gout. Placed on colchicine. Red flags prompt ER evaluation discussed. Patient was educated on supportive therapies. Patient will follow up with primary care provider as needed. Patient was instructed to immediately proceed to emergency room for any new, worsening, or symptoms lasting longer than anticipated. The patient's clinical presentation is otherwise unremarkable at this time. Based on exam and clinical finding, the patient is stable for discharge. Plan of care was discussed with patient. Patient verbalizes understanding and agrees to plan of care. This note was generated using [employer] software. It may contain errors in wording, punctuation, or spelling. Alfredo Palmer APRN.LAUNDRY MACHINE MECHANIC History and Record Review Clinical information obtained from an independent historian. History obtained from or confirmed by: parent. External record(s) reviewed: prior outpatient record. Disposition The patient was discharged. OTC Medications were advised: Procedures [facility] 01-26-2025 Note HNO ID: [id number] Author: FABIENNE HANSEN APRN.LAUNDRY MACHINE MECHANIC Service: ? Author Type: Nurse Practitioner Type: Progress Notes Filed: 01/28/2025 10:02 Note Text: This is a 79 year old female who presents today with: The patient is an 79-year-old female with atrial fibrillation, congestive heart failure, and diabetes mellitus, presenting for evaluation of acute foot swelling. HISTORY OF PRESENT ILLNESS: Kesha is an 79-year-old female with a history of atrial fibrillation, CHF, and DM, presenting for evaluation of acute left foot swelling. Left Foot Swelling: - Acute onset of left foot swelling noted upon waking on Friday morning; unable to fit shoe on affected foot. - Describes foot as feeling heavy and similar to wearing ill-fitting shoes. - Unable to bend toes under on the affected foot. - Denies significant pain, but reports soreness in the bunion area. - Denies pain when dorsiflexing toes or in the calf. - Denies history of gout or blood clots. - does have a history of cellulitis - Denies swelling extending beyond the foot and lower ext - Denies recent medication changes. - she is on a chronic anticoagulant ( xarelto) Atrial Fibrillation: - Reports being in and out of atrial fibrillation frequently. - Believes condition has been present since teenage years. - History of rheumatic heart disease in third grade. CHF: - Taking Lasix 40 mg daily. - Scheduled for an echocardiogram in July - patient of Dr Navarro who she just saw in December Myocardial Infarction: - History of mild myocardial infarction in early October. - Transitioned from metoprolol tartrate to metoprolol succinate by Dr. Navarro. - Heart cath in November showed reduced EF 45% with apical hypokinesis severe consistent with takotsubo cardiomyopathy DM: - Last A1c performed in May; reports no significant changes in the past 3-4 years and doesn't feel it necessary to check with todays labs - Scheduled to see Saskia Meier in March and she will follow with her regarding A1C PAST MEDICAL HISTORY: PAST MEDICAL HISTORY Diagnosis Date Abnormal EKG afib, inf GA age undetermined Atrial fibrillation (HCC) Breast cancer (HCC) 03/2018 left breast Closed fracture of right distal radius 09/10/2021 Congestive heart failure (HCC) 09/24/2018 Epistaxis balloon out -2011 osteo History of colonoscopy [address] 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 Romero Osteoarthritis Posterior vitreous detachment of both eyes 05/02/2023 Pseudophakia 05/02/2023 Seasonal allergies Type 2 diabetes mellitus without complication, without long-term current use of insulin ([facility]) 04/11/2016 PAST SURGICAL HISTORY Procedure Laterality Date [...] Lisinopril MEDICATIONS Current Outpatient Medications Medication Sig rosuvastatin (CRESTOR) 20 mg tablet Take 1 tablet by mouth daily at bedtime. metoprolol succinate ER (TOPROL XL) 50 mg 24 hr tablet Take 1/2 tablet in the morning, 1 whole tablet in the evening furosemide (LASIX) 40 mg tablet Take 1 tablet by mouth once daily. valsartan (DIOVAN) 160 mg tablet Take 1 tablet by mouth once daily. rivaroxaban (XARELTO) 20 mg tablet Take 1 tablet by mouth daily with dinner. amoxicillin (AMOXIL) 500 mg capsule Take four capsules 20 minutes before procedure POTASSIUM ORAL Take 1 capsule by mouth once daily. vit C,F-Qg-hsstg-lutein-zeaxan (PRESERVISION AREDS-2) 250-90-40-1 mg Take 1 capsule by mouth twice daily with meals. thiamine HCl (VITAMIN B-1 ORAL) Take 250 mg by mouth once daily. multivitamins(DAILY MULTIVITAMIN TAB) Take one(1) tablet daily. No current facility-administered medications for this visit. FAMILY HISTORY Problem Relation Age of Onset Breast Cancer Mother Hypertension Mother Hypertension Father Heart Father GA Diabetes Father Kidney Disease Sister Heart disease Sister Debbie (more content not included)... [facility] 12-27-2024 Note HNO ID: [id number] Author: HANDY MENDES RT(R) Service: ? Author Type: Technologist Type: Progress Notes Filed: 12/27/2024 14:34 Note Text: Radiology Service Progress Note PATIENT NAME: Kesha Carmichael DATE OF SERVICE: December 27, 2024 TIME: 2:21 PM PATIENT IDENTITY VERIFICATION COMPLETED USING TWO (2) IDENTIFIERS: Name and Date of confirmed by patient verbally. FALL SCREENING: Has the patient had 2 falls in the last year or 1 fall with injury or currently using an Ambulatory Assistive Device (Walker, Cane, Wheelchair, Crutches, etc.)? No PATIENT GENDER DATA: Assigned female at . status: : No status: NO. PATIENT RELEVANT IMPLANT DATA REVIEWED: Not Applicable PATIENT PRESENTS WITH AN IMPLANTABLE OR ATTACHED INSPECTOR OPTICAL INSTRUMENT: No RADIOLOGY DEPARTMENT: Bone Density PERIPHERAL IV DATA: Not applicable SIGNED BY: RT John(R) December 27, 2024 2:21 PM [facility] 12-22-2024 Note HNO ID: [id number] Author: PENNIE HIGUERA APRN.LAUNDRY MACHINE MECHANIC Service: ? Author Type: Nurse Practitioner Type: Progress Notes Filed: 12/23/2024 13:48 Note Text: Chief Complaint Patient presents with: Established Patient HPI: Kesha Carmichael is a 79 year old female who presents here today for follow up breast cancer. Per previous note: From [facility] note: ? 01/23/2018: Screening mammogram showed there is a focal asymmetry in the upper outer left breast at the junction of anterior and middle depth. ? February 2018 - patient reports 28 gene panel at [facility] was negative. ? 02/11/18: Bilateral dx MMG shows no concerning findings in the right breast. IN the left breast, there is 6mm architectural distortion at middle depth central to the nipple seen on CC view. Targeted left breast US shows a 5 x 3 x 5 mm irregular mass in the left breast at 1:00, 7 cm FN. Recommend biopsy. Right breast US negative. ? 02/12/18: US-guided core biopsy of left breast, 1:00, 7 cm FN. Pathology shows IDC, grade 1, 0.6 cm, ER+ (99%, strong), WA+ (95%, strong), HER2 negative. ? 03/05/2018: Seen by Dr. Carter. Patient desires to proceed with BCS. ? 03/27/18: Left breast lumpectomy with sentinel lymph node biopsy which showed invasive ductal cancer measuring 0.8 cm in greatest diameter, grade 1, negative LVI, negative margins with 0/4 lymph nodes involved with metastatic breast cancer. The final pathologic stage is pT1bN0. ? 04/30/18 new patient visit in the [facility] breast oncology clinic with Dr. Layne Stoll ? May 2018 radiation completed at [facility] ? 06/05/18 - 06/19/18 anastrozole, stopped for daily FITCH ? 06/26/18 -07/01/18 exemestane, stopped for shoulder pain ? 08/13/18 follow up visit in medical oncology Per Dr. 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 She is s/p lumpectomy; 0/4 nodes were found to be positive. Ultimately, she was felt to have a T1bN0, Stage IA breast cancer. She completed radiation therapy locally. Afterwards, she was started on endocrine therapy. She took anastrozole from 06/05/18 - 06/19/18, and she was not able to tolerate anastrozole due to daily headaches and stopped the medication. Her headaches resolved. She started exemestane around 06/26/18. After taking exemestane for 5 days she developed significant right shoulder pain and reduced ROM. She denies injury but does have prior right shoulder pathology and rotator cuff tear from a fall in 2009. She discusses that she does not wish to continue AI therapy due to risk of side effects. She would like to transfer her breast cancer care locally. We discussed the recommendation to continue regular breast imaging and following with an oncology provider every 3-6 months. Pt. overdue for OV. Last seen in person 2018. Distance health visit spring 2019. Pt. cancelled follow up OV summer 2019. Has been having yearly mamms per PCP. Last done 11/15/24-BI-RADS Category 2: Benign Family members recently dx with colon cancer and pancreas cancer. Cancer has really been on my mind. But if anything was found I don't want to do anything about it. I'm 79 years old. Appetite:Ok. Energy level:Eh. Denies fevers or recent illness. Resp:denies cough or sob Cardiac:denies chest pain/palpitations-followed by cards GI:denies abd pain, n/v, moving bowels regularly :denies dysuria/hematuria Extrem:denies new pain, chronic shoulder pain-followed at main Endo:denies hot flashes Neuro:denies symptoms of neuropathy Skin:denies rashes Heme:denies bleeding The ROS is otherwise negative. Past medical history, appointments, medications, allergies reviewed. No changes. EXAM: BP 139/91 Pulse 97 Temp 36.3 ?C (97.4 ?F) (Temporal) Wt 91 kg (200 lb 9.9 oz) SpO2 96% BMI 40.28 kg/m? APPEARANCE Well appearing, alert, in no acute distress, well-hydrated, well nourished. HEART RRR with normal S1 and S2, no murmurs LUNG clear to auscultation BREAST FEMALE no mass/nodule b/l LYMPH NODES No cervical lymphadenopathy, No supraclavicular lymphadenopathy, and No axillary lymphadenopathy. ABDOMEN bowel sounds normoactive, soft, non-tender EXTREMITIES No edema NEURO Awake, alert and oriented x 3, using quad cane, and No involuntary motions. SKIN Skin color, texture, turgor normal, no suspicious rashes or lesions ASSESSMENT/PLAN: 1. Encounter for follow-up surveillance of breast cancer - ICD9: V67.9, V10.3, ICD10: Z08, Z85.3 T1bN0, Stage IA breast cancer Invasive ductal cancer of the left breast measuring 0.8 cm in greatest diameter, grade 1, negative LVI, negative margins, ER 99%, WA 95% and HER2 negative. She is s/p lumpectomy; 0/4 nodes were found to be positive. S/p Radiation at [facility]. Pt. did not tolerate (more content not included)... [facility] 12-15-2024 Instructions Yoandy Dempsey MD - 12/15/2024 4:02 PM EDT Schedule bone density test Collect 24-hour urine test See me again in 12 months BONE MINERAL DENSITY PATIENT INSTRUCTIONS ======= Bone mineral density testing measures the amount of calcium in certain parts of your bones. This information determines how strong your bones are. The test is used to detect osteoporosis, a disease in which the bone's mineral content and density are low, increasing a person's risk of fractures. The lumbar spine (lower back) and the hip are the skeletal sites usually examined. For the test, remember that: 1. You cannot take this test if you are . 2. Eat a normal diet on the day of the test. 3. Take your medications as you normally would. 4. DO NOT take calcium supplements (such as Tums) for 24 hours before the test. 5. On the day of the test, leave valuables (jewelry or credit cards) at home. 6. The test should be performed prior to oral, rectal or IV contrast studies, or at least 7 days after any of these studies. For the test, you may be asked to wear a hospital gown. You will lie on your back, on a padded table, in a comfortable position. Generally, you can resume your usual activities immediately. documented in this encounter [facility] 12-15-2024 History of Present illness Narrative 79 year-old female, patient of Dr. Chip Arreola, referred by LETICIA Mcintyre, for hyperparathyroidism. History of obesity, diet-controlled type 2 diabetes with microalbuminuria, diet controlled, heart failure, breast cancer. No history of kidney stones, PUD. Feeling fine. Max height was 64. (+) foot fracture, height loss. Current Outpatient Medications on File Prior to Visit Medication Sig rosuvastatin (CRESTOR) 20 mg tablet Take 1 tablet by mouth daily at bedtime. omega-3 fatty acids/fish oil (FISH OIL OMEGA 3-6-9 ORAL) Take by mouth. metoprolol succinate ER (TOPROL XL) 50 mg 24 hr tablet Take 1/2 tablet in the morning, 1 whole tablet in the evening furosemide (LASIX) 40 mg tablet Take 1 [...] Take 1 capsule by mouth once daily. vit C,V-Dp-uradl-lutein-zeaxan (PRESERVISION AREDS-2) 250-90-40-1 mg Take 1 capsule by mouth twice daily with meals. thiamine HCl (VITAMIN B-1 ORAL) Take 250 mg by mouth once daily. multivitamins(DAILY MULTIVITAMIN TAB) Take one(1) tablet daily. ALLERGIES Allergen Reactions Adhesive Tape-Silic* Rash ALL hydrogels, hydrocolloids, adhesives Anastrozole Other: See Comments migraines Aquacel-Ag [Silver-* Itching And redness Azithromycin Swelling facial Exemestane Other: See Comments Decreased use of right arm Lisinopril Cough PAST MEDICAL HISTORY Diagnosis Date Abnormal EKG afib, inf [place] age undetermined Atrial fibrillation (HCC) Breast cancer (HCC) 03/2018 left breast Closed fracture of right distal radius 09/10/2021 Congestive heart failure (HCC) 09/24/2018 Epistaxis balloon out osteo History of colonoscopy [address] 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 Romero Osteoarthritis Posterior vitreous detachment of both eyes 05/02/2023 Pseudophakia 05/02/2023 Seasonal allergies Type 2 diabetes mellitus without complication, without long-term current use of insulin ([facility]) 04/11/2016 PAST SURGICAL HISTORY Procedure Laterality Date [...] Mother Hypertension Mother Hypertension Father Heart Father [place] Diabetes Father Kidney Disease Sister Heart disease [...] Other niece x3 Colon Cancer Other nephew SOCIAL HISTORY[1] Review of systems: Patient notes no weight changes, fever, fatigue, weakness, change in balance or sensation, visual problems, hearing changes, dizziness, trouble swallowing, nasal difficulties, shortness of breath, chest pain, change in exertional tolerance, foot or leg problems, skin lesions, abdominal pain, diarrhea, constipation, urinary problems, incontinence, back pain, joint pains, anxiety, depression, insomnia, menstrual difficulties, breast lesions/pain/mass. Remainder of review of systems was unremarkable. BP 133/83 Pulse 101 Resp 16 Ht 150.3 cm (4' 11.17) Wt 93.5 kg (206 lb 2.1 oz) SpO2 98% BMI 41.39 kg/m General appearance: Well-appearing, morbidly obese (BMI greater than 40) octogenarian female, alert, in no acute distress, well-hydrated, well nourished. Skin: Skin color, texture, turgor normal, no suspicious rashes or lesions Head: normocephalic, no masses, lesions, tenderness or abnormalities Eyes: Anicteric sclera. Pupils are equally round. Extraocular movements are intact. Ears: not examined Nose/Sinuses: Nares normal. No drainage or sinus tenderness. Oropharynx: Lips, mucosa, and tongue normal, teeth and gums not examined. Neck: Supple, no adenopathy; no palpable thyroid enlargement. Lungs: Breathing unlabored. Heart: RRR. No ectopy Abdomen: deferred Extremities: No deformities, edema, skin discoloration, clubbing or cyanosis. Good capillary refill. Musculoskeletal: Spine range of motion not tested. Muscular strength intact, No joint swelling, deformity, or tenderness Peripheral pulses: Normal Neuro: Gait normal. Sensation grossly intact. A1C today via Afinion was %. Latest Reference Range & Units 05/27/24 09:22 10/04/24 11:08 Sodium 136 - 144 mmol/L 143 143 Potassium 3.7 - 5.1 mmol/L 4.5 3.8 Chloride 98 - 107 mmol/L 103 103 CO2 22 - 30 mmol/L 31 (H) 28 BUN 7 - 21 mg/dL 18 21 Creatinine 0.58 - 0.96 mg/dL 0.90 0.84 Glucose 74 - 99 mg/dL 118 (H) 117 (H) Protein, Total 6.3 - 8.0 g/dL 7.0 6.4 Calcium 8.5 - 10.2 mg/dL 10.5 (H) 9.6 Ionized Calcium 1.08 - 1.30 mmol/L 1.34 (H) 1.26 Normalized Calcium 1.08 - 1.30 mmol/L 1.29 1.26 Magnesium 1.7 - 2.3 mg/dL 2.2 2.1 Albumin 3.9 - 4.9 g/dL 4.2 4.2 Bilirubin, Total 0.2 - 1.3 mg/dL 0.4 0.5 Alkaline Phosphatase 34 - 123 U/L 72 71 ALT 7 - 38 U/L 21 20 AST 13 - 35 U/L 24 22 eGFR >=60 mL/min/1.73m 65 70 Vitamin B12 232 - 1,245 pg/mL 373 Vitamin D 25 Hydroxy 31.0 - 80.0 ng/mL 36.6 29.6 (L) Total Cholesterol, Nonfasting <200 mg/dL 170 Triglycerides, Nonfasting <150 mg/dL 148 HDL Cholesterol, Nonfasting >39 mg/dL 50 LDL Cholesterol, Nonfasting <100 mg/dL 90 Hemoglobin A1C 4.3 - 5.6 % 6.2 (H) TSH 0.270 - 4.200 mIU/L 1.470 PTH, Intact 15 - 65 pg/mL 69 (H) 124 (H) Albumin/Creat Ratio <30 mg/g 48 (H): Data is abnormally high (L): Data is abnormally low IMPRESSION: Primary hyperparathyroidism - mild, check for sequela (bone density test, 24-hour urine calcium and creatinine) Type 2 diabetes mellitus - good control Hyperlipidemia - continue statin Hypertension - fairly good control Morbid obesity - urged weight loss efforts PLAN: Bone density ordered 24-hour urine creatinine and calcium If above fine, no treatment needed for now If not, consider surgery vs cinacalcet (I favor the latter given history of heart failure, morbid obesity) See me again in 12 months Yoandy Dempsey MD Consultation requested by LETICIA Mcintyre for an opinion regarding hypercalcemia, and my final recommendations will be communicated back to the requesting physician by way of shared Medical Record (within [employer]) or office note to the requesting physician via transmitted facsimile (FAX). I spent a total of 45 minutes on the date of service which included preparing to see the patient, [id number] patient care, completing clinical documentation, performing a medically appropriate examination, counseling and educating the patient/family/caregiver and ordering medications, tests, or procedures. [1] Social History Tobacco Use Smoking status: Never Smokeless tobacco: Never Vaping Use Vaping status: Never Used Substance Use Topics Alcohol use: No Drug use: No documented in this encounter [facility] 12-15-2024 Note HNO ID: [id number] Author: YOANDY DEMPSEY MD Service: ? Author Type: Physician Type: Progress Notes Filed: 12/15/2024 16:16 Note Text: 79 year-old female, patient of Dr. Chip Arreola, referred by LETICIA Mcintyre, for hyperparathyroidism. History of obesity, diet-controlled type 2 diabetes with microalbuminuria, diet controlled, heart failure, breast cancer. No history of kidney stones, PUD. Feeling fine. Max height was 64. (+) foot fracture, height loss. Current Outpatient Medications on File Prior to Visit Medication Sig rosuvastatin (CRESTOR) 20 mg tablet Take 1 tablet by mouth daily at bedtime. omega-3 fatty acids/fish oil (FISH OIL OMEGA 3-6-9 ORAL) Take by mouth. metoprolol succinate ER (TOPROL XL) 50 mg 24 hr tablet Take 1/2 tablet in the morning, 1 whole tablet in the evening furosemide (LASIX) 40 mg tablet Take 1 [...] Take 1 capsule by mouth once daily. vit C,L-Di-eqzda-lutein-zeaxan (PRESERVISION AREDS-2) 250-90-40-1 mg Take 1 capsule by mouth twice daily with meals. thiamine HCl (VITAMIN B-1 ORAL) Take 250 mg by mouth once daily. multivitamins(DAILY MULTIVITAMIN TAB) Take one(1) tablet daily. ALLERGIES Allergen Reactions Adhesive Tape-Silic* Rash ALL hydrogels, hydrocolloids, adhesives Anastrozole Other: See Comments migraines Aquacel-Ag [Silver-* Itching And redness Azithromycin Swelling facial Exemestane Other: See Comments Decreased use of right arm Lisinopril Cough PAST MEDICAL HISTORY Diagnosis Date Abnormal EKG afib, inf [place] age undetermined Atrial fibrillation (HCC) Breast cancer (HCC) 03/2018 left breast Closed fracture of right distal radius 09/10/2021 Congestive heart failure (HCC) 09/24/2018 Epistaxis balloon out osteo History of colonoscopy [address] 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 Romero Osteoarthritis Posterior vitreous detachment of both eyes 05/02/2023 Pseudophakia 05/02/2023 Seasonal allergies Type 2 diabetes mellitus without [...] Mother Hypertension Mother Hypertension Father Heart Father [place] Diabetes Father Kidney Disease Sister Heart disease [...] Other niece x3 Colon Cancer Other nephew SOCIAL HISTORY[1] Review of systems: Patient notes no weight changes, fever, fatigue, weakness, change in balance or sensation, visual problems, hearing changes, dizziness, trouble swallowing, nasal difficulties, shortness of breath, chest pain, change in exertional tolerance, foot or leg problems, skin lesions, abdominal pain, diarrhea, constipation, urinary problems, incontinence, back pain, joint pains, anxiety, depression, insomnia, menstrual difficulties, breast lesions/pain/mass. Remainder of review of systems was unremarkable. (more content not included)... [facility] 12-13-2024 Instructions Anuj Navarro MD - 12/13/2024 3:28 PM EDT We discussed your recent diagnosis of Takotsubo cardiomyopathy (broken heart syndrome): - This condition is often triggered by emotional or physical stress and is more common in women. It typically resolves within 1-2 months. - Your heart catheterization showed no significant blockages, but there was a finding of apical ballooning, which is consistent with this diagnosis. - To help manage your heart health, I am starting you on a cholesterol medication, rosuvastatin 20 mg once per day to prevent any worsening of the mild blockage seen during your heart catheterization. This prescription will be sent to your pharmacy. You will need fasting blood work in March We discussed your elevated parathyroid hormone levels: - Your parathyroid hormone level has increased from 69 to 124 over the past six months. This may require further evaluation and possible treatment. - You are scheduled to see an seafood manager this Friday to discuss this finding and determine the next steps. They may recommend removing your parathyroid glands if necessary. We discussed your history of breast cancer and family history of cancer: - You are doing well with annual mammograms, which you should continue. - Given your strong family history of cancer and your personal history of breast cancer, I recommend following up with an oncologist for further evaluation and ongoing monitoring. - I suggest asking your primary care provider, Saskia Meier, for a referral to Dr. Miah Pemberton, an oncologist in the area. We discussed your upcoming echocardiogram: - You are due for a follow-up echocardiogram in February to monitor your heart function. Please schedule this at your convenience, ideally before . - At the time of your echocardiogram, we will also perform fasting blood work. Please fast for 12 hours before your appointment. Please continue to focus on reducing stress as much as possible, as stress can impact your heart health. Let us know if you have any new symptoms or concerns. documented in this encounter [facility] 12-13-2024 History of Present illness Narrative Images from the original note were not included. [facility] Cardiology ([facility]) [address] [facility] [id number] OUTPATIENT VISIT DATE 12/13/2024 PRIMARY CARE PHYSICIAN: Chip Arreola MD [address] [place] [address] HISTORY OF PRESENT ILLNESS: Ms. Carmichael is a 79 year old woman with a history of permanent atrial fibrillation, hypertension, diastolic congestive heart failure and mild to moderate mitral/tricuspid valve regurgitation who is here for routine follow-up. Patient was admitted to [facility] in October. She was found to have Takotsubo syndrome on cardiac catheterization with mild coronary artery disease. She presents to the office for follow-up The patient was recently hospitalized and diagnosed with takotsubo cardiomyopathy. During the hospitalization, a cardiac catheterization revealed mild coronary artery blockage. She reports experiencing significant stress and anxiety due to family health issues, including her sister's diagnosis of stage 4 pancreatic cancer and her brother's history of colon cancer. She also mentions a recent nosebleed. She is scheduled for an echocardiogram in February. She has a history of breast cancer diagnosed in 2017, for which she underwent a lumpectomy and radiation therapy. She has been receiving annual mammograms but has not followed up with an oncologist since her initial treatment. She expresses concern about her strong family history of breast cancer, noting that four generations have been affected, including her grandmother, mother, and four of her seven sisters. Genetic testing for breast cancer markers was negative. She is currently under evaluation for hyperparathyroidism, with a recent parathyroid hormone level of 124 pg/mL, up from 69 pg/mL six months ago. She is scheduled to see an seafood manager. She questions a diagnosis of T2DM, as her blood glucose levels have been in the 120s, with a recent reading of 117 mg/dL. She is not on any medications for diabetes and was previously informed that her glucose levels were acceptable. She denies any history of tobacco use. PAST MEDICAL HISTORY Diagnosis Date Abnormal EKG afib, inf GA age undetermined Atrial fibrillation (HCC) Breast cancer ([facility]) 03/2018 left breast Closed fracture of right distal radius 09/10/2021 Congestive heart failure ([facility]) 09/24/2018 Epistaxis balloon out osteo History of colonoscopy [address] Stoney Hernandez , normal HTN (hypertension) Hyperglycemia Knee pain, chronic Lt Migraines stopped when she retired Normal cardiac stress test 2004 Dr. Romero Osteoarthritis Seasonal allergies Type 2 diabetes mellitus without complication, without long-term current use of insulin ([facility]) 04/11/2016 PAST SURGICAL HISTORY Procedure Laterality Date [...] Mother Hypertension Mother Hypertension Father Heart Father GA Diabetes Father Kidney Disease Sister Heart disease [...] Other niece x3 Colon Cancer Other nephew ALLERGIES: ALLERGIES Allergen Reactions Adhesive Tape-Silic* Rash ALL hydrogels, hydrocolloids, adhesives Anastrozole Other: See Comments migraines Aquacel-Ag [Silver-* Itching And redness Azithromycin Swelling facial Exemestane Other: See Comments Decreased use of right arm Lisinopril Cough MEDICATIONS: omega-3 fatty acids/fish oil (FISH OIL OMEGA 3-6-9 ORAL) Take by mouth. metoprolol succinate ER (TOPROL XL) 50 mg 24 hr tablet Take 1/2 tablet in the morning, 1 whole tablet in the evening furosemide (LASIX) 40 mg tablet Take 1 [...] Take 1 capsule by mouth once daily. vit C,B-Iq-lfihc-lutein-zeaxan (PRESERVISION AREDS-2) 250-90-40-1 mg Take 1 capsule by mouth twice daily with meals. thiamine HCl (VITAMIN B-1 ORAL) Take 250 mg by mouth once daily. multivitamins(DAILY MULTIVITAMIN TAB) Take one(1) tablet daily. Cholecalciferol, Vitamin D3, 50 mcg (2,000 unit) cap Take 1 capsule by mouth once daily. REVIEW OF SYSTEMS: Review of Systems [...] Psychiatric/Behavioral: Negative for depression. PHYSICAL EXAMINATION: BP 139/95 (BP Site: Right Arm, BP Position: Sitting, BP Cuff Size: Large Adult) Pulse 110 Wt 92.5 kg (204 lb) SpO2 97% BMI 41.20 kg/m General: Pleasant somewhat obese woman sitting appears comfortable no apparent distress. She is alert and oriented x3 HEENT: Carotid upstrokes are brisk bilaterally without bruits. No JVD appreciated Pulmonary: Lungs are clear no rales, wheezes, or rhonchi. Cardiovascular: Normal S1-S2 with an irregular regular rhythm and normal rate. No murmurs, rubs, or gallops extremities: Warm, [...] Q waves in leads III and aVF. Cardiac catheterization [facility] 10/12/2024: Mild disease noted in the proximal mid left anterior descending coronary artery with mildly reduced flow. Normal flow noted in the left circumflex and right coronary arteries. Reduced ejection fraction with apical hypokinesis EF 45% Lexiscan Myoview stress test 03/10/2018: CONCLUSIONS: 1. [...] normal sinus Rare Isolated SVE's (<1%) Echocardiogram [facility] 10/11/2024: Normal LV size with moderate concentric left ventricular hypertrophy. The apex is hypokinetic. Ejection fraction 50%. 1+ tricuspid regurgitation Pulmonary artery systolic pressure estimated at 30 mmHg Echocardiogram 07/21/2023: - Technically difficult exam due to body habitus. - Exam indication: Atrial fibrillation - The left ventricle is normal in size. There is mild concentric left ventricular hypertrophy. Left ventricular systolic function is mildly decreased. EF = [...] of paroxysmal atrial fibrillation (likely now persistent), mild coronary artery disease on cardiac catheterization October 2024, Takotsubo cardiomyopathy October 2024, chronic diastolic heart failure, pulmonary hypertension, hypertension, and obstructive sleep apnea who presents for routine follow-up. PLAN AND RECOMMENDATIONS: 1. Coronary artery disease involving picayune coronary artery of picayune heart without angina pectoris - ICD9: 414.01, ICD10: I25.10 (primary diagnosis) No symptoms concerning for angina. Will initiate treatment with statin therapy findings of mild coronary artery disease on catheterization - COMPREHENSIVE METABOLIC PANEL 2. Takotsubo cardiomyopathy - ICD9: 429.83, ICD10: I51.81 Recheck 2D echocardiogram. Continue low-dose beta-jarod therapy - ECHO - PERFLUTREN LIPID MICROSPHERES 1.1 MG/ML INJECTION IN NS 10 ML - SODIUM CHLORIDE 0.9 % (FLUSH) INJECTION SYRINGE 3. Persistent atrial fibrillation (HCC) - ICD9: 427.31, ICD10: I48.19 Patient is on Xarelto for stroke risk reduction - ECHO - PERFLUTREN LIPID MICROSPHERES 1.1 MG/ML INJECTION IN NS 10 ML - SODIUM CHLORIDE 0.9 % (FLUSH) INJECTION SYRINGE 4. Pulmonary HTN (HCC) - ICD9: 416.8, ICD10: I27.20 - ECHO - PERFLUTREN LIPID MICROSPHERES 1.1 MG/ML INJECTION IN NS 10 ML - SODIUM CHLORIDE 0.9 % (FLUSH) INJECTION SYRINGE 5. H/O mitral valve disease - ICD9: V12.59, ICD10: Z86.79 Not evident on most recent echocardiogram 6. Chronic diastolic congestive heart failure (HCC) - ICD9: 428.32, 428.0, ICD10: I50.32 Continue diuretic therapy low-sodium diet 7. Essential hypertension, benign - ICD9: 401.1, ICD10: I10 Well-controlled on current regimen 8. Mixed hyperlipidemia - ICD9: 272.2, ICD10: E78.2 Patient started on rosuvastatin 20 daily. Plan to repeat fasting blood work in 3 months - ROSUVASTATIN 20 MG TABLET - COMPREHENSIVE METABOLIC PANEL - LIPID PANEL, FASTING Anuj Navarro MD documented in this encounter [facility] 12-13-2024 Note HNO ID: [id number] Author: ANUJ NAVARRO MD Service: ? Author Type: Physician Type: Progress Notes Filed: 12/13/2024 15:52 Note Text: [facility] Cardiology ([facility]) [address] [facility] [id number] OUTPATIENT VISIT DATE 12/13/2024 PRIMARY CARE PHYSICIAN: Chip Arreola MD [address] [place] [address] HISTORY OF PRESENT ILLNESS: Ms. Carmichael is a 79 year old woman with a history of permanent atrial fibrillation, hypertension, diastolic congestive heart failure and mild to moderate mitral/tricuspid valve regurgitation who is here for routine follow-up. Patient was admitted to [facility] in October. She was found to have Takotsubo syndrome on cardiac catheterization with mild coronary artery disease. She presents to the office for follow-up The patient was recently hospitalized and diagnosed with takotsubo cardiomyopathy. During the hospitalization, a cardiac catheterization revealed mild coronary artery blockage. She reports experiencing significant stress and anxiety due to family health issues, including her sister's diagnosis of stage 4 pancreatic cancer and her brother's history of colon cancer. She also mentions a recent nosebleed. She is scheduled for an echocardiogram in February. She has a history of breast cancer diagnosed in 2018, for which she underwent a lumpectomy and radiation therapy. She has been receiving annual mammograms but has not followed up with an oncologist since her initial treatment. She expresses concern about her strong family history of breast cancer, noting that four generations have been affected, including her grandmother, mother, and four of her seven sisters. Genetic testing for breast cancer markers was negative. She is currently under evaluation for hyperparathyroidism, with a recent parathyroid hormone level of 124 pg/mL, up from 69 pg/mL six months ago. She is scheduled to see an seafood manager. She questions a diagnosis of T2DM, as her blood glucose levels have been in the 120s, with a recent reading of 117 mg/dL. She is not on any medications for diabetes and was previously informed that her glucose levels were acceptable. She denies any history of tobacco use. PAST MEDICAL HISTORY Diagnosis Date Abnormal EKG afib, inf GA age undetermined Atrial fibrillation (HCC) Breast cancer [...] Mother Hypertension Mother Hypertension Father Heart Father GA Diabetes Father Kidney Disease Sister Heart disease [...] Other niece x3 Colon Cancer Other nephew ALLERGIES: ALLERGIES Allergen Reactions Adhesive (more content not included)... [facility] 11-15-2024 History of Present illness Narrative Radiology Service Progress Note PATIENT NAME: Kesha Carmichael DATE OF SERVICE: November 15, 2024 TIME: 8:42 AM PATIENT IDENTITY VERIFICATION COMPLETED USING TWO (2) IDENTIFIERS: Name and Date of confirmed by patient verbally. FALL SCREENING: Has the patient had 2 falls in the last year or 1 fall with injury or currently using an Ambulatory Assistive Device (Walker, Cane, Wheelchair, Crutches, etc.)? No PATIENT GENDER DATA: Assigned female at . status: : No status: NO. PATIENT RELEVANT IMPLANT DATA REVIEWED: Not Applicable PATIENT PRESENTS WITH AN IMPLANTABLE OR ATTACHED INSPECTOR OPTICAL INSTRUMENT: No RADIOLOGY DEPARTMENT: Mammography PERIPHERAL IV DATA: Not applicable SIGNED BY: Delano Haywood November 15, 2024 8:42 AM documented in this encounter [facility] 11-15-2024 Note HNO ID: [id number] Author: ABRAN VILLANUEVA Mammo Tech Service: ? Author Type: Asset Analyst Type: Progress Notes Filed: 11/15/2024 08:42 Note Text: Radiology Service Progress Note PATIENT NAME: Kesha Carmichael DATE OF SERVICE: November 15, 2024 TIME: 8:42 AM PATIENT IDENTITY VERIFICATION COMPLETED USING TWO (2) IDENTIFIERS: Name and Date of confirmed by patient verbally. FALL SCREENING: Has the patient had 2 falls in the last year or 1 fall with injury or currently using an Ambulatory Assistive Device (Walker, Cane, Wheelchair, Crutches, etc.)? No PATIENT GENDER DATA: Assigned female at . status: : No status: NO. PATIENT RELEVANT IMPLANT DATA REVIEWED: Not Applicable PATIENT PRESENTS WITH AN IMPLANTABLE OR ATTACHED INSPECTOR OPTICAL INSTRUMENT: No RADIOLOGY DEPARTMENT: Mammography PERIPHERAL IV DATA: Not applicable SIGNED BY: Delano Haywood November 15, 2024 8:42 AM [facility] 10-19-2024 Instructions Belkys Mcintyre APRN.LAUNDRY MACHINE MECHANIC - 10/19/2024 8:51 AM EDT - Adjust your metoprolol succinate dosing to 25 mg (half tablet) each morning and 50 mg (one whole tablet) each evening. - Use a pill cutter to split your morning dose; if you don t have one, pick one up at your pharmacy. - I have sent this dosing adjustment to Dr. Navarro for his review. - Dr. Navarro will determine whether you should start a low-dose statin for your arterial health. documented in this encounter [facility] 10-19-2024 Note HNO ID: [id number] Author: BELKYS MCINTYRE APRN.CNP Service: ? Author Type: Nurse Practitioner Type: Progress Notes Filed: 10/19/2024 08:51 Note Text: Transitional Care Management TCM Eligibility Documentation The following information was gathered during patient outreach 10/15/2024 Date of Outreach: Outreach Attempt 1: Contact Made Date of Discharge 10/12/2024 Provider Documentation Kesha Carmichael is a 79 year old female here today for a follow up from recent hospitalization. I have reviewed the patient's hospital course including discharge summary, discharge medications, and follow up needs with the patient and any family members present at today's visit. Recording using [employer] software for draft documentation of the visit was discussed with the patient/authorized outside medical sales representative; all questions welcomed and answered. Patient/authorized outside medical sales representative agreed to proceed Subjective Kesha Carmichael is an 79-year-old female with a history of atrial fibrillation, recent GA, and breast cancer, presenting for follow-up after hospitalization. Myocardial Infarction: - Recent hospitalization for GA. - Reports an episode of epistaxis followed by chest heaviness and weakness, prompting a call to EMS. - Underwent heart catheterization; informed of two ruptures in the LAD. - Ejection fraction reported as 50%. - Denies current chest heaviness. - No statin therapy initiated post-GA. Fatigue: - Significant fatigue since hospitalization. - Attributes fatigue to metoprolol tartrate 50 mg BID; reports better energy levels on a lower dose of metoprolol succinate. - Describes exhaustion as all I want to do is sit and sleep. - Denies lightheadedness or syncope. Atrial Fibrillation: - Chronic AFib, with recent heart rate recorded at 131 bpm. - Hospitalized for rate control; received diltiazem and nitroglycerin drip. - Reports persistent palpitations. - Currently on rivaroxaban. Dyspnea: - Denies significant dyspnea, except with exertion. - Uses CPAP at night; denies nocturnal dyspnea. - Unable to lie flat for 50 years due to discomfort, not dyspnea. Breast Cancer: - Diagnosed in 2018; treated with lumpectomy and radiation therapy. - No follow-up with hematology/oncology. - Family history of cancer in four out of seven sisters. Diabetes Mellitus: - A1c reported as 6.2%. - Declined metformin therapy. ROS: Constitutional: (+) fatigue, (+) daytime somnolence, (-) generalized pain Ears/Nose/Mouth/Throat: (-) epistaxis Cardiovascular: (+) palpitations, (-) chest heaviness, (-) peripheral edema Respiratory: (+) exertional dyspnea, (+) orthopnea, (-) cough, (-) wheeze, (-) paroxysmal nocturnal dyspnea Genitourinary: (+) urinary frequency, (+) nocturia Neurological: (-) lightheadedness, (-) presyncope Endocrine: (-) polydipsia Objective BP 118/86 Pulse 89 Wt 92.5 kg (204 lb) SpO2 97% BMI 41.20 kg/m? GENERAL: NAD, alert and oriented. SKIN: Unremarkable, no rash or skin lesions. Right wrist cath site without ecchymosis. Soft, non-tender. HEAD: Normocephalic. LUNGS: Clear to auscultation bilaterally, no wheezes/rhonchi/rales. HEART: Irreg- irreg, no murmurs. No ectopy. No edema. EXTREMITIES: Normal, no deformities, no skin discoloration, no edema. NEURO: Awake, alert and oriented x3, cranial nerves II-XII grossly intact, normal gait, no involuntary motions. Labs: (no date) - A1c: 6.2 - INR: Elevated Tests: (no date) Coronary angiography: - Two small ruptures in the left anterior descending coronary artery - Ejection fraction: 50% (normal 55-65) - No blockages (no date) ECG/Telemetry: - Atrial fibrillation with heart rate of 131 BPM Assessment AND Plan 1. Atrial fibrillation, unspecified type (HCC) (I48.91) - Chronic condition with recent exacerbation; heart rate was 131 bpm during hospitalization. - Currently on metoprolol tartrate 50 mg BID for rate control, which may be contributing to fatigue. - Transition to metoprolol succinate with dosing of half a tablet (25mg) in the morning and a whole tablet (50 mg) in the evening to improve symptom management and maintain rate control. - Informed Dr. Navarro of medication adjustment. - Continue rivaroxaban for anticoagulation. 2. NSTEMI (non-ST elevated myocardial infarction) (HCC) (I21.4) - Recent NSTEMI with two small ruptures in the left anterior descending coronary artery; ejection fraction is 50%. - Discussed the benefits of initiating statin therapy to improve endothelial function and prevent further atherosclerotic events. Pt. declined - Patient hesitant about starting a new medication; will defer to Dr. Navarro for further management. - No current chest pain or dyspnea; advised to monitor for any recurrence of symptoms. Discussed treatment plan and patient voices understanding. Patient's questions answered appropriately. Medications and potential side effects we (more content not included)... [facility] 10-19-2024 History of Present illness Narrative Transitional Care Management TCM Eligibility Documentation The following information was gathered during patient outreach 10/15/2024 Date of Outreach: Outreach Attempt 1: Contact Made Date of Discharge 10/12/2024 Provider Documentation Kesha Carmichael is a 79 year old female here today for a follow up from recent hospitalization. I have reviewed the patient's hospital course including discharge summary, discharge medications, and follow up needs with the patient and any family members present at today's visit. Recording using [employer] software for draft documentation of the visit was discussed with the patient/authorized outside medical sales representative; all questions welcomed and answered. Patient/authorized outside medical sales representative agreed to proceed Subjective Kesha Carmichael is an 79-year-old female with a history of atrial fibrillation, recent GA, and breast cancer, presenting for follow-up after hospitalization. Myocardial Infarction: - Recent hospitalization for GA. - Reports an episode of epistaxis followed by chest heaviness and weakness, prompting a call to EMS. - Underwent heart catheterization; informed of two ruptures in the LAD. - Ejection fraction reported as 50%. - Denies current chest heaviness. - No statin therapy initiated post-GA. Fatigue: - Significant fatigue since hospitalization. - Attributes fatigue to metoprolol tartrate 50 mg BID; reports better energy levels on a lower dose of metoprolol succinate. - Describes exhaustion as all I want to do is sit and sleep. - Denies lightheadedness or syncope. Atrial Fibrillation: - Chronic AFib, with recent heart rate recorded at 131 bpm. - Hospitalized for rate control; received diltiazem and nitroglycerin drip. - Reports persistent palpitations. - Currently on rivaroxaban. Dyspnea: - Denies significant dyspnea, except with exertion. - Uses CPAP at night; denies nocturnal dyspnea. - Unable to lie flat for 50 years due to discomfort, not dyspnea. Breast Cancer: - Diagnosed in 2018; treated with lumpectomy and radiation therapy. - No follow-up with hematology/oncology. - Family history of cancer in four out of seven sisters. Diabetes Mellitus: - A1c reported as 6.2%. - Declined metformin therapy. ROS: Constitutional: (+) fatigue, (+) daytime somnolence, (-) generalized pain Ears/Nose/Mouth/Throat: (-) epistaxis Cardiovascular: (+) palpitations, (-) chest heaviness, (-) peripheral edema Respiratory: (+) exertional dyspnea, (+) orthopnea, (-) cough, (-) wheeze, (-) paroxysmal nocturnal dyspnea Genitourinary: (+) urinary frequency, (+) nocturia Neurological: (-) lightheadedness, (-) presyncope Endocrine: (-) polydipsia Objective BP 118/86 Pulse 89 Wt 92.5 kg (204 lb) SpO2 97% BMI 41.20 kg/m GENERAL: NAD, alert and oriented. SKIN: Unremarkable, no rash or skin lesions. Right wrist cath site without ecchymosis. Soft, non-tender. HEAD: Normocephalic. LUNGS: Clear to auscultation bilaterally, no wheezes/rhonchi/rales. HEART: Irreg- irreg, no murmurs. No ectopy. No edema. EXTREMITIES: Normal, no deformities, no skin discoloration, no edema. NEURO: Awake, alert and oriented x3, cranial nerves II-XII grossly intact, normal gait, no involuntary motions. Labs: (no date) - A1c: 6.2 - INR: Elevated Tests: (no date) Coronary angiography: - Two small ruptures in the left anterior descending coronary artery - Ejection fraction: 50% (normal 55-65) - No blockages (no date) ECG/Telemetry: - Atrial fibrillation with heart rate of 131 BPM Assessment & Plan 1. Atrial fibrillation, unspecified type (HCC) (I48.91) - Chronic condition with recent exacerbation; heart rate was 131 bpm during hospitalization. - Currently on metoprolol tartrate 50 mg BID for rate control, which may be contributing to fatigue. - Transition to metoprolol succinate with dosing of half a tablet (25mg) in the morning and a whole tablet (50 mg) in the evening to improve symptom management and maintain rate control. - Informed Dr. Navarro of medication adjustment. - Continue rivaroxaban for anticoagulation. 2. NSTEMI (non-ST elevated myocardial infarction) (HCC) (I21.4) - Recent NSTEMI with two small ruptures in the left anterior descending coronary artery; ejection fraction is 50%. - Discussed the benefits of initiating statin therapy to improve endothelial function and prevent further atherosclerotic events. Pt. declined - Patient hesitant about starting a new medication; will defer to Dr. Navarro for further management. - No current chest pain or dyspnea; advised to monitor for any recurrence of symptoms. Discussed treatment plan and patient voices understanding. Patient's questions answered appropriately. Medications and potential side effects were discussed and patient voices understanding. Return to the office as scheduled or as needed for worsening/no improvement. DNRCCA Belkys HERMOSILLO, LAUNDRY MACHINE MECHANIC documented in this encounter [facility] 10-19-2024 Telephone encounter Note EKG at [facility] showed atrial fibrillation with aberrancies Echocardiogram done October 11 showed normal left ventricular size Moderate concentric left ventricular hypertrophy Ejection fraction estimated 50% [place] hypokinetic Mild 1+ tricuspid valve insufficiency Pulmonary artery systolic pressure 30 mmHg Patient was seen in the emergency room for A-fib on Xarelto, BMI 40-49, type 2 diabetes, chest pain rating 7 out of 10 in the center of her chest, migraines who presents with chief complaint of an elephant sitting on her chest. EMS held off on nitroglycerin as concern for her softer blood pressure and possibility of inferior wall GA. They held off aspirin as well as prehospitalization she was on Xarelto. WBC 8.1, hemoglobin 14.9, hematocrit 46.2, platelet count 290 Differential was normal INR 2.1 Sodium 143, potassium 3.8, BUN 27, creatinine 0.92, glucose 170 Calcium 9.9 Magnesium 2.4 Troponin T high-sensitivity 17 NT proBNP type II 1553 TSH 2.52 Chest x-ray showed chronic elevation of the left hemidiaphragm since August 2018 Total cholesterol 178, triglycerides 113, HDL 48, LDL not found Patient saw cardiology consult assessment plan: Chest pain Paroxysmal atrial fibrillation Acute on chronic diastolic congestive heart failure Essential hypertension Malignant neoplasm of the left breast, estrogen receptor positive Obstructive sleep apnea High risk for intermediate cardiac catheterization as she has epistaxis and elevated INR at 2.1 Has been on Xarelto 20 mg which she took last night Noted INR elevated 2.1 Rate control using calcium channel jarod and beta-jarod Started on IV heparin and hold Xarelto Review high sensitive troponin initially 17 Echocardiogram Stop rivaroxaban continue on heparin plan for cardiac catheterization Patient did not have a STEMI. Very stable Non-ST elevation myocardial infarction patient presented with a non-STEMI ST elevation myocardial infarction underwent cardiac catheterization which demonstrated mild eccentric plaque rupture noted in the proximal and mid left anterior descending artery. The rest of the vessel appeared to be free of significant disease. There was hypokinesis of the apex noted. Takotsubo cardiomyopathy cannot be completely excluded. Recommend continuing beta-jarod, ARB, low-dose Lasix, can be switched to spironolactone, aspirin, increase beta-jarod to metoprolol tartrate 50 mg twice daily. [facility] 10-19-2024 Miscellaneous Notes EKG at [facility] showed atrial fibrillation with aberrancies Echocardiogram done October 11 showed normal left ventricular size Moderate concentric left ventricular hypertrophy Ejection fraction estimated 50% Atwood hypokinetic Mild 1+ tricuspid valve insufficiency Pulmonary artery systolic pressure 30 mmHg Patient was seen in the emergency room for A-fib on Xarelto, BMI 40-49, type 2 diabetes, chest pain rating 7 out of 10 in the center of her chest, migraines who presents with chief complaint of an elephant sitting on her chest. EMS held off on nitroglycerin as concern for her softer blood pressure and possibility of inferior wall GA. They held off aspirin as well as prehospitalization she was on Xarelto. WBC 8.1, hemoglobin 14.9, hematocrit 46.2, platelet count 290 Differential was normal INR 2.1 Sodium 143, potassium 3.8, BUN 27, creatinine 0.92, glucose 170 Calcium 9.9 Magnesium 2.4 Troponin T high-sensitivity 17 NT proBNP type II 1553 TSH 2.52 Chest x-ray showed chronic elevation of the left hemidiaphragm since August 2018 Total cholesterol 178, triglycerides 113, HDL 48, LDL not found Patient saw cardiology consult assessment plan: Chest pain Paroxysmal atrial fibrillation Acute on chronic diastolic congestive heart failure Essential hypertension Malignant neoplasm of the left breast, estrogen receptor positive Obstructive sleep apnea High risk for intermediate cardiac catheterization as she has epistaxis and elevated INR at 2.1 Has been on Xarelto 20 mg which she took last night Noted INR elevated 2.1 Rate control using calcium channel jarod and beta-jarod Started on IV heparin and hold Xarelto Review high sensitive troponin initially 17 Echocardiogram Stop rivaroxaban continue on heparin plan for cardiac catheterization Patient did not have a STEMI. Very stable Non-ST elevation myocardial infarction patient presented with a non-STEMI ST elevation myocardial infarction underwent cardiac catheterization which demonstrated mild eccentric plaque rupture noted in the proximal and mid left anterior descending artery. The rest of the vessel appeared to be free of significant disease. There was hypokinesis of the apex noted. Takotsubo cardiomyopathy cannot be completely excluded. Recommend continuing beta-jarod, ARB, low-dose Lasix, can be switched to spironolactone, aspirin, increase beta-jarod to metoprolol tartrate 50 mg twice daily. documented in this encounter [facility] 10-15-2024 Telephone encounter Note Patient was admitted to [facility] on October 11, 2024 and discharged on the following day for unspecified atrial fibrillation Patient currently improved. Did receive digoxin in the emergency room. Unclear if she is actually taking both of those. Will need to be on IV metoprolol for heart rate greater than 160 mg. Is already anticoagulated on rivaroxaban continue for now. Echocardiogram showed ejection fraction 50%, hypokinetic apex, pulmonary artery systolic pressure of 30 mmHg. Change metoprolol supinate 50 once a day to tartrate 50 twice a day and resume rivaroxaban on the . Chest pain, initial troponin minimally elevated at 17 and then went to 323. Not an actual ST elevation myocardial infarction despite as a STEMI alert being called. Left heart cath today showed mild eccentric Plaque rupture noted in the proximal and mid left LAD. The rest of the vessels appear to be free of significant disease. There was hypokinesis of the apex noted. Takotsubo cardiomyopathy cannot be completely excluded Continue valsartan Okay for discharge. Patient presents with chest pain as well as epistaxis. Epistaxis did resolve but the patient was having chest pain. Troponins were slightly elevated up to 323. Underwent echocardiogram and that showed an ejection fraction of 30% and hypokinetic apex. Heart cath as above. WBC 7.4, hemoglobin 12.5, hematocrit 37.8, platelet count 253 Sodium 142, potassium 3.5, BUN 21, creatinine 0.84, glucose 138 Total cholesterol 178, triglycerides 113, LDL 107, HDL 48 TSH 2.76 Echocardiogram normal left ventricular size Moderate concentric left ventricular hypertrophy, left ventricular ejection fraction of 50%. Atwood hypokinetic Mild 1+ tricuspid valve insufficiency Pulmonary artery systolic pressure 30 mmHg [facility] 10-15-2024 Miscellaneous Notes Patient was admitted to [facility] on October 11, 2024 and discharged on the following day for unspecified atrial fibrillation Patient currently improved. Did receive digoxin in the emergency room. Unclear if she is actually taking both of those. Will need to be on IV metoprolol for heart rate greater than 160 mg. Is already anticoagulated on rivaroxaban continue for now. Echocardiogram showed ejection fraction 50%, hypokinetic apex, pulmonary artery systolic pressure of 30 mmHg. Change metoprolol supinate 50 once a day to tartrate 50 twice a day and resume rivaroxaban on the . Chest pain, initial troponin minimally elevated at 17 and then went to 323. Not an actual ST elevation myocardial infarction despite as a STEMI alert being called. Left heart cath today showed mild eccentric Plaque rupture noted in the proximal and mid left LAD. The rest of the vessels appear to be free of significant disease. There was hypokinesis of the apex noted. Takotsubo cardiomyopathy cannot be completely excluded Continue valsartan Okay for discharge. Patient presents with chest pain as well as epistaxis. Epistaxis did resolve but the patient was having chest pain. Troponins were slightly elevated up to 323. Underwent echocardiogram and that showed an ejection fraction of 30% and hypokinetic apex. Heart cath as above. WBC 7.4, hemoglobin 12.5, hematocrit 37.8, platelet count 253 Sodium 142, potassium 3.5, BUN 21, creatinine 0.84, glucose 138 Total cholesterol 178, triglycerides 113, LDL 107, HDL 48 TSH 2.76 Echocardiogram normal left ventricular size Moderate concentric left ventricular hypertrophy, left ventricular ejection fraction of 50%. Atwood hypokinetic Mild 1+ tricuspid valve insufficiency Pulmonary artery systolic pressure 30 mmHg documented in this encounter [facility] 10-15-2024 Telephone encounter Note Patient calling for status update on question sent in [employer]. She is wanting to know if she needs to follow up with Dr. Navarro sooner than her December appointment. She states that she wants to make sure that the medication changes and plan of care given at the hospital are accurate. Please contact patient to advise and notify her if she can be seen in [place] since there is no sooner availability in [place]. [facility] 10-15-2024 Miscellaneous Notes Patient calling for status update on question sent in [employer]. She is wanting to know if she needs to follow up with Dr. Navarro sooner than her December appointment. She states that she wants to make sure that the medication changes and plan of care given at the hospital are accurate. Please contact patient to advise and notify her if she can be seen in [place] since there is no sooner availability in [place]. documented in this encounter [facility] 10-15-2024 Note HNO ID: [id number] Author: MARITZA SHAH MA Service: ? Author Type: Senior C Developer Type: Progress Notes Filed: 10/15/2024 13:39 Note Text: TRANSITION CARE MANAGEMENT (TCM) INITIAL CONTACT Senior C Developer Outreach Provider Action/FYI: Patient has message to Dr Navarro to ask about the switch from Metoprolol Er to Tartrate. She felt that she was on this in the past and has issues before. She is awaiting a response. Initial contact with patient post discharge, spoke to patient. Patient identified by name and . TRANSITION CARE MANAGEMENT INITIAL OUTREACH DOCUMENTATION: No data to display SUMMARY: -Pt discharged from [facility] on 10/12/24. -Admitted for: A-fib Do you have a hospital follow up appointment with your PCP? Appointment on 10/19/24 with Saskia Mcintyre CNP. Yes. Remind patient of appointment date, time, and location. If not within 14 calendar days of discharge - please reschedule accordingly. MEDICATIONS: Many patients have questions or concerns about their medications once they are home. Were you prescribed any new medications? Yes If yes, what are those medications? Metoprolol 50 mg BID Were you told to hold any medications? Yes If yes, what are those medications? Rivaroxaban 20 mg Were any of your medications discontinued? Yes If yes, what are those medications? Metoprolol 50 mg daily, dosage was increased Do you have any questions about getting or taking your medications? No Your discharge instructions/After visit Summary (AVS) are important in guiding you through the recovery process. Is there anything I might help you understand? No Do you have all the necessary equipment and supplies at home? Yes Medical records from recent hospitalization: Placed for provider to review Maritza Shah MA October 15, 2024 1:39 PM [facility] 10-15-2024 History of Present illness Narrative Images from the original note were not included. TRANSITION CARE MANAGEMENT (TCM) INITIAL CONTACT Senior C Developer Outreach Provider Action/FYI: Patient has message to Dr Navarro to ask about the switch from Metoprolol Er to Tartrate. She felt that she was on this in the past and has issues before. She is awaiting a response. Initial contact with patient post discharge, spoke to patient. Patient identified by name and . TRANSITION CARE MANAGEMENT INITIAL OUTREACH DOCUMENTATION: No data to display SUMMARY: -Pt discharged from [facility] on 10/12/24. -Admitted for: A-fib Do you have a hospital follow up appointment with your PCP? Appointment on 10/19/24 with Saskia Mcintyre CNP. Yes. Remind patient of appointment date, time, and location. If not within 14 calendar days of discharge - please reschedule accordingly. MEDICATIONS: Many patients have questions or concerns about their medications once they are home. Were you prescribed any new medications? Yes If yes, what are those medications? Metoprolol 50 mg BID Were you told to hold any medications? Yes If yes, what are those medications? Rivaroxaban 20 mg Were any of your medications discontinued? Yes If yes, what are those medications? Metoprolol 50 mg daily, dosage was increased Do you have any questions about getting or taking your medications? No Your discharge instructions/After visit Summary (AVS) are important in guiding you through the recovery process. Is there anything I might help you understand? No Do you have all the necessary equipment and supplies at home? Yes Medical records from recent hospitalization: Placed for provider to review Maritza Shah MA October 15, 2024 1:39 PM documented in this encounter [facility] 10-15-2024 Note Patient Outreach (GIOVANA OSBORNWS) KESHA CARMICHAEL ([id number]) 1945 F Date Time Provider Department 10/15/24 MARITZA SHAH During your visit today, we recorded the following information about you: Maritza Shah MA 10/15/2024 1:39 PM Signed TRANSITION CARE MANAGEMENT (TCM) INITIAL CONTACT Senior C Developer Outreach Provider Action/FYI: Patient has message to Dr Navarro to ask about the switch from Metoprolol Er to Tartrate. She felt that she was on this in the past and has issues before. She is awaiting a response. Initial contact with patient post discharge, spoke to patient. Patient identified by name and . TRANSITION CARE MANAGEMENT INITIAL OUTREACH DOCUMENTATION: No data to display SUMMARY: -Pt discharged from [facility] on 10/12/24. -Admitted for: A-fib Do you have a hospital follow up appointment with your PCP? Appointment on 10/19/24 with Saskia Mcintyre CNP. Yes. Remind patient of appointment date, time, and location. If not within 14 calendar days of discharge - please reschedule accordingly. MEDICATIONS: Many patients have questions or concerns about their medications once they are home. Were you prescribed any new medications? Yes If yes, what are those medications? Metoprolol 50 mg BID Were you told to hold any medications? Yes If yes, what are those medications? Rivaroxaban 20 mg Were any of your medications discontinued? Yes If yes, what are those medications? Metoprolol 50 mg daily, dosage was increased Do you have any questions about getting or taking your medications? No Your discharge instructions/After visit Summary (AVS) are important in guiding you through the recovery process. Is there anything I might help you understand? No Do you have all the necessary equipment and supplies at home? Yes Medical records from recent hospitalization: Placed for provider to review Maritza Shah MA October 15, 2024 1:39 PM Allergies As of Date: 10/15/2024 Noted Allergy Reaction ADHESIVE TAPE-SILICONES 01/17/2020 2 [...] by: Sonali Girard MA - Fully Assessed Prescriptions as of 10/15/2024 - metoprolol tartrate, short acting, (LOPRESSOR) 50 mg tablet Take 50 mg by mouth two times a day. - furosemide (LASIX) 40 mg tablet Take 1 tablet by mouth once daily as needed. - furosemide (LASIX) 40 mg tablet Take 1 tablet by mouth once daily. - valsartan (DIOVAN) [...] four capsules 20 minutes before procedure - POTASSIUM ORAL Take 1 capsule by mouth once daily. - vit C,G-Pb-yfugt-lutein-zeaxan (PRESERVISION AREDS-2) 250-90-40-1 mg Take 1 capsule by mouth twice daily with meals. - Cholecalciferol, Vitamin D3, 50 mcg (2,000 unit) cap Take 1 capsule by mouth once daily. - thiamine HCl (VITAMIN B-1 ORAL) Take 250 mg by mouth once daily. - multivitamins(DAILY MULTIVITAMIN TAB) Take one(1) tablet daily. Problem List As Of Date 10/15/2024 Noted Resolved Acute appendicitis without mention of peritonit*03/04/2010 08/06/2012 Rotator cuff tear [M75.100] 04/03/2010 04/11/2016 Other physical therapy [TOM7589] 04/10/2010 07/01/2011 Seborrheic Keratosis [L82.1] 07/26/2010 07/01/2011 Solar lentigo [L81.4] 07/26/2010 07/01/2011 Actinic skin damage [L57.8] 07/26/2010 07/01/2011 Essential hypertension, benign [I10] 07/01/2011 Family history of breast cancer [Z80.3] 07/01/2011 04/15/2022 Osteoarthrosis, unspecified whether generalized*09/09/2011 09/09/2011 Arthritis of knee [M17.10] 09/11/2011 09/11/2011 [...] breast in female, es*02/24/2018 Breast cancer, left breas (more content not included)... [facility] 10-12-2024 Progress note Note Date/Time October 12, 2024 2:25p [facility] Medical Records Department [address] [place] [address] Progress Note - Hospitalist 10/12/24 0839 MR#: [id number] Acct: [id number] Name: KESHA CARMICHAEL Rep #:[id number] : 1945 79 From: Dayanna Miranda DO PCP: Dr. Chip Arreola MD Status:ADM I N Location: [place] [address] Reason for Visit Reason for Visit: Diagnoses Malignant neoplasm of unspecified site of left female breast (10/11/24) Obstructive sleep apnea (adult) (pediatric) (10/11/24) Essential (primary) hypertension (10/11/24) Paroxysmal atrial fibrillation (10/11/24) Unspecified atrial fibrillation (10/11/24) Acute on chronic diastolic (congestive) heart failure (10/11/24) Chest pain, unspecified (10/11/24) Estrogen receptor positive status [ER+] (10/11/24) Subjective Subjective Feeling well. Objective Data Objective Data Vital Signs: Vital Signs Temp Pulse Resp BP Pulse Ox O2 Del Method FiO2 37.2 C 86 18 126/86 H 96 Room Air 21 10/11/24 18:00 10/12/24 06:00 10/12/24 06:00 10/12/24 06:00 10/12/24 06:00 10/12/24 06:00 10/12/24 01:30 Oxygen Delivery Method Room Air Weight: 93.4 kg Body Mass Index (BMI) 40.1 Intake & Output: Intake and Output for Last 24 Hours 10/10/24 10/11/24 10/12/24 23:59 23:59 23:59 Intake Total 1584.17 / 1586.87 396.02 / 396.02 Balance 1584.17 / 1586.87 396.02 / 396.02 Lab / Micro Data 10/12/24 05:52 10/12/24 05:52 Labs: Laboratory Results - last 24 hr 10/11/24 08:50: WBC 8.1, RBC 4.80, Hgb 14.9, Hct 46.2, MCV 96.3, MCH 31.0, MCHC 32.3, RDW Std Deviation 46.0 H, RDW Coeff of Gold 12.9, Plt Count 290, MPV 10.3, Immature Gran % (Auto) 0.400, Neut % (Auto) 62.4, Lymph % (Auto) 30.4, Eaton % (Auto) 5.7, Eos % (Auto) 0.6, [...] 2.520 10/11/24 08:54: PT 23.6 H, INR 2.1, APTT 33.0 10/11/24 11:15: Troponin T Hi Sens 2 Hr 151 H* 10/11/24 12:58: Troponin T Hi Sens 4Hr 323 H* 10/11/24 19:46: APTT 79.6 H 10/12/24 03:28: APTT 90.2 H* 10/12/24 05:52: WBC 7.4, RBC 3.93 L, Hgb 12.5, Hct 37.8, MCV 96.2, MCH 31.8, MCHC 33.1, RDW Std Deviation 45.2 H, RDW Coeff of Gold 12.8, Plt Count 253, MPV 10.7, Immature Gran % (Auto) 0.400, Neut % (Auto) 73.0 H, Lymph % (Auto) 19.0, Eaton % (Auto) 6.6, Eos % (Auto) 0.7, Baso % (Auto) 0.3, Absolute Neuts (auto) 5.4, Absolute Lymphs (auto) 1.41, Nucleated RBC % 0, Sodium 142, Potassium 3.5, Chloride 104, Carbon Dioxide 26.9, Anion Gap 11, BUN 21 H, Creatinine 0.84, Estim Creat Clear Calc 54.52, Est GFR (MDRD) Non-Af 70, BUN/Creatinine Ratio 24.7 H, Glucose 138 H, Calcium 9.2, TSH 2.760 Radiography Diagnostic Testing: Radiology Impression Echocardiogram 10/11/24 09:50 Interpretation Summary Normal LV size. Moderate concentric left ventricular hypertrophy. The left ventricular ejection fraction is 50 %. [place]wood : Hypokinetic. Mild (1+) tricuspid valve insufficiency. Pulmonary artery systolic pressure is 30 mmHg. Ordering Physician: Lida Blum Referring Physician: Lida Blum Performed By: Alyson Sifuentes RCS Chest X-Ray 10/11/24 10:00 IMPRESSION: Lungs are clear. Chronic elevation of the left hemidiaphragm, stable since August 2018 [facility] Physical Exam Const alert and no apparent distress HEENT head/scalp atraumatic and moist oral mucous membranes Resp normal respiratory effort, no retractions, no use of accessory muscles and clear to auscultation bilaterally Cardio regular rate, regular rhythm, S1 normal heart sound and S2 normal heart sound GI normal to inspection, nondistended, normoactive bowel sounds, soft to palpation, non-tender and non-distended Extremity normal to inspection Assessment & Plan Assessment/Plan (1) Atrial fibrillation with RVR: PLAN: Currently improved. Patient did receive digoxin in the emergency room. Unclear if she is actually taking both of those. Will need to clarify which one she is taking or if those are correct. The meantime patient will be on as needed IV metoprolol for heart rate greater than 160. Patient is already anticoagulated on rivaroxaban continue for now. Echocardiogram showed an EF 50%, hypokinetic apex. PASP 30 mm Hg. Changed metoprolol succinate 50/d to tartrate 50 BID. (2) Chest pain: PLAN: Initial Troponin minimally elevated at 17, then went to 323. Not an actual STEMI despite a STEMI alert being called. LHC today showed mild eccentric plaque rupture noted in the proximal and mid left anterior descending artery. The rest of the vessels appeared to be free of significant disease. There was hypokinesis of the apex noted. Takotsubo cardiomyopathy cannot be completely excluded. PLAN: Plan Hypertension: Continue with valsartan VTE prophylaxis: Not indicated patient is already on oxygen. DW Dr. Romero. Ok for [place] home. Charges/Coding Visit Charges Inpatient E&M: 97437 Subs Hosp L2 10/12/24 1425 <Electronically signed by Dayanna Miranda DO> Cosigner Signature (if applicable): CC: ~ Signed [facility] Work Phone: [phone]) [phone] Discharge summary [facility] Medical Records Department [address] [place] [id number] Discharge Summary 10/12/24 1611 MR#: [id number] Acct: [id number] Name: KESHA CARMICHAEL Rep #:[id number] : 1945 79 From: Dayanna Miranda DO PCP: Dr. Chip Arreola MD Status:ADM I N Location: [place] [address] Providers Date of Admission: 10/11/24 Primary Care Physician: Dr. Chip Arreola MD Consultations 10/11/24 11:13 Consult: Cardiology Routine Consulting Provider: Lida Blum Reason for Consult: Chest Pain EMERGENT Consult: No MD Notified: Yes Date Notified: 10/11/24 Time Notified: 10:24 Method of Notification: ED Physician Initiated Reason For Visit: stemi Diagnosis Discharge Diagnosis (1) Atrial fibrillation with RVR: Status: Resolved Code(s): I48.91 - Unspecified atrial fibrillation Plan: Currently improved. Patient did receive digoxin in the emergency room. Unclear if she is actually taking both of those. Will need to clarify which oneshe is taking or if those are correct. The meantime patient will be on as needed IV metoprolol for heart rate greater than 160. Patient is already anticoagulated on rivaroxaban continue for now. Echocardiogram showed an EF 50%, hypokinetic apex. PASP 30 mm Hg. Changed metoprolol succinate 50/d to tartrate 50 BID. Resume rivaroxaban on . (2) Chest pain: Status: Acute Code(s): R07.9 - Chest pain, unspecified Plan: Initial Troponin minimally elevated at 17, then went to 323. Not an actual STEMI despite a STEMI alert being called. LHC today showed mild eccentric plaque rupture noted in the proximal and mid left anterior descending artery. The rest of the vessels appeared to be free ofsignificant disease. There was hypokinesis of the apex noted. Takotsubo cardiomyopathy cannot be completely excluded. Plan Hypertension: Continue with valsartan VTE prophylaxis: Not indicated patient is already on oxygen. SOM Romero. Ok for [place] home. Medications at Discharge Home Medications multivitamin with folic acid 400 mcg tablet 1 tab PO DAILY SUPPLEMENT 08/18/17 omega-3 fatty acids 1,000 mg capsule 2,000 mg PO DAILY supplement 09/04/18 valsartan 160 mg tablet 160 mg PO DAILY heart 09/04/18 furosemide 40 mg tablet 40 mg PO DAILY #60 tabs 10/02/18 rivaroxaban 20 mg tablet 20 mg PO DAILY 11/03/18 Held on 10/12/24. Instructions: Resume on 10/13/24. potassium 99 mg tablet 99 mg PO DAILY supplement 10/11/24 thiamine HCl (vitamin B1) 250 mg tablet 250 mg PO DAILY supplement 10/11/24 vit C 250 mg-vit E 90 mg-zinc 40 mg-copper 1 hx-lugutu-dsaapf capsule ([employer] AREDS-2) 1 tab POBID eye vitamin 10/11/24 metoprolol tartrate 50 mg tablet 50 mg PO BID #60 tabs 10/12/24 Hospital Course Procedures 2-D Echocardiogram and Cardiac catheterization Summary of Care Provided Minutes Spent on Discharge: 32 Hospital Course: Patient presents with chest pain as well as epistaxis. Epistaxis did resolve but patient was still having chest pain. Troponins were slightly elevated up to323. Patient underwent a echocardiogram that showed an EF of 50% with hypokinetic apex. Patient undergo a cardiac catheterization which showed mild eccentric plaque rupture in the proximal and mid left anterior descending artery. Left the vessel appeared to be free of significant disease. There was hypokinesis of the apex. Takotsubo cardiomyopathy could not be completely excluded. Recommend continuing beta-jarod and ARB. As well as low-dose furosemide. Patient's beta- jarod was changed from metoprolol succinate 50 daily to 50 twice daily. Weight / BMI Weight Weight: 93.4 kg Body Mass Index (BMI) 40.1 ABG / Lab / Microbiology Data 10/12/24 05:52 10/12/24 05:52 Laboratory: Laboratory Results - last 24 hr 10/11/24 19:46: APTT 79.6 H 10/12/24 03:28: APTT 90.2 H* 10/12/24 05:52: WBC 7.4, RBC 3.93 L, Hgb 12.5, Hct 37.8, MCV 96.2, MCH 31.8, MCHC 33.1, RDW Std Deviation 45.2 H, RDW Coeff of Gold 12.8, Plt Count 253, MPV 10.7, Immature Gran % (Auto) 0.400, Neut % (Auto) 73.0 H, Lymph % (Auto) 19.0, Eaton % (Auto) 6.6, Eos % (Auto) 0.7, Baso % (Auto) 0.3, AbsoluteNeuts (auto) 5.4, Absolute Lymphs (auto) 1.41, Nucleated RBC % 0, Sodium 142, Potassium 3.5, Chloride 104, Carbon Dioxide 26.9, Anion Gap 11, BUN 21 H, Creatinine 0.84, Estim Creat Clear Calc 54.52, Est GFR (MDRD) Non-Af 70, BUN/Creatinine Ratio 24.7 H, Glucose 138 H, Calcium 9.2, Triglycerides 113, Cholesterol 178, LDL Cholesterol, Calc 107, VLDL Cholesterol 23, HDL Cholesterol 48, Cholesterol/HDL Ratio 3.69, TSH 2.760 Radiography Diagnostic Testing: Radiology Impression Echocardiogram 10/11/24 09:50 Interpretation Summary Normal LV size. Moderate concentric left ventricular hypertrophy. The left ventricular ejection fraction is 50 %. [place] : Hypokinetic. Mild (1+) tricuspid valve insufficiency. Pulmonary artery systolic pressure is 30 mmHg. Ordering Physician: Lida Blum Referring Physician: Lida Blum Performed By: Alyson Sifuentes RCS D/C Instructions Discharge Diet: No restrictions DC O2, CPAP, BIPAP Needs Home O2 Discharge instructions: No Meaningful Use Info Meaningful Use Meaningful Use Diagnoses (Choose all that apply): None applicable Ischemic Stroke Statin Dosing Therapy Reference: STATIN DOSE THERAPY REFERENCE: * Patients > 75 years receive moderate or high dose statin therapy. * Patients 75 years or YOUNGER should receive HIGH intensity statin dose unless contraindicated. You will be required to document reason for non-treatment if statin daily dose does not meet guidelines. HIGH DOSE STATIN THERAPY DAILY Atorvastatin > than or = to 40 mg Rosuvastatin > than or = to 20 mg Amlodipine + Atorvastatin > than or = to 2.5/40 mg Ezetimibe + Simvastatin 10/80 mg Simvastatin 80mg Discharge Plan Admission Admit Date/Time: 10/11/24 10:20 Primary Reason for Your Visit: Atrial fibrillation with RVR Attending Provider: Dayanna Miranda Primary Care Provider: Chip Arreola Consulting Providers: Ldia Blum Instructions Additional Instructions / Restrictions: Follow up with cardiology in December. Discharge Orders/Prescriptions Prescriptions: New metoprolol tartrate 50 mg Tablet 50 mg PO BID Qty: 60 0RF Continued furosemide 40 mg tablet 40 mg PO DAILY Qty: 60 0RF multivitamin with folic acid 1 TABLET tablet 1 tab PO DAILY omega-3 fatty acids 1,000 MG capsule 2,000 mg PO DAILY valsartan 160 MG tablet 160 mg PO DAILY potassium 99 mg tablet 99 mg PO DAILY [facility] AREDS-2 250-90-40-1 mg capsule 1 tab PO BID thiamine HCl (vitamin B1) 250 mg tablet 250 mg PO DAILY Held rivaroxaban 20 mg tablet 20 mg PO DAILY Hold Instructions: Resume on 10/13/24. Discontinued metoprolol tartrate 50 mg tablet 50 mg PO DAILY metoprolol succinate 25 mg tablet extended release 24 hr 50 mg PO DAILY Referrals / Follow Up: hCip Arreola MD [Primary Care Provider] - Within 2 Weeks Disposition Disposition (needs filled in before D/C Order can be placed): Home, Self Care Charges/Coding Visit Charges Inpatient E&M: 09700 Disch Hosp >30min 10/12/24 1622 Cosigner Signature (if applicable): CC: Dr. Dayanna Miranda DO; Dr. Chip Arreola MD~ Signed [facility]07-08-2025 [facility] Medical Records Department [address] [place] [address] Discharge Summary 10/12/24 1611 MR#: [id number] Acct: [id number] Name: KESHA CARMICHAEL Rep #: [id number] : 1945 79 From: Dayanna Miranda DO PCP: Dr. Chip Arreola MD Status:ADM IN Location: [place] [address] Providers Date of Admission: 10/11/24 Primary Care Physician: Dr. Chip Arreola MD Consultations 10/11/24 11:13 Consult: Cardiology Routine Consulting Provider: Lida Blum Reason for Consult: Chest Pain EMERGENT Consult: No MD Notified: Yes Date Notified: 10/11/24 Time Notified: 10:24 Method of Notification: ED Physician Initiated Reason For Visit: stemi Diagnosis Discharge Diagnosis (1) Atrial fibrillation with RVR: Status: Resolved Code(s): I48.91 - Unspecified atrial fibrillation Plan: Currently improved. Patient did receive digoxin in the emergency room. Unclear if she is actually taking both of those. Will need to clarify which one she is taking or if those are correct. The meantime patient will be on as needed IV metoprolol for heart rate greater than 160. Patient is already anticoagulated on rivaroxaban continue for now. Echocardiogram showed an EF 50%, hypokinetic apex. PASP 30 mm Hg. Changed metoprolol succinate 50/d to tartrate 50 BID. Resume rivaroxaban on the ninth. (2) Chest pain: Status: Acute Code(s): R07.9 - Chest pain, unspecified Plan: Initial Troponin minimally elevated at 17, then went to 323. Not an actual STEMI despite a STEMI alert being called. [facility] today showed mild eccentric plaque rupture noted in the proximal and mid left anterior descending artery. The rest of the vessels appeared to be free of significant disease. There was hypokinesis of the apex noted. Takotsubo cardiomyopathy cannot be completely excluded. Plan Hypertension: Continue with valsartan VTE prophylaxis: Not indicated patient is already on oxygen. DW Dr. Romero. Ok for [place] home. Medications at Discharge Home Medications multivitamin with folic acid 400 mcg tablet 1 tab PO DAILY SUPPLEMENT 08/18/17 omega-3 fatty acids 1,000 mg capsule 2,000 mg PO DAILY supplement 09/04/18 valsartan 160 mg tablet 160 mg PO DAILY heart 09/04/18 furosemide 40 mg tablet 40 mg PO DAILY #60 tabs 10/02/18 rivaroxaban 20 mg tablet 20 mg PO DAILY 11/03/18 Held on 10/12/24. Instructions: Resume on 10/13/24. potassium 99 mg tablet 99 mg PO DAILY supplement 10/11/24 thiamine HCl (vitamin B1) 250 mg tablet 250 mg PO DAILY supplement 10/11/24 vit C 250 mg-vit E 90 mg-zinc 40 mg-copper 1 ba-eflhdj-hvtyow capsule ([facility] AREDS-2) 1 tab PO BID eye vitamin 10/11/24 metoprolol tartrate 50 mg tablet 50 mg PO BID #60 tabs 10/12/24 Hospital Course Procedures 2-D Echocardiogram and Cardiac catheterization Summary of Care Provided Minutes Spent on Discharge: 32 Hospital Course: Patient presents with chest pain as well as epistaxis. Epistaxis did resolve but patient was still having chest pain. Troponins were slightly elevated up to 323. Patient underwent a echocardiogram that showed an EF of 50% with hypokinetic apex. Patient undergo a cardiac catheterization which showed mild eccentric plaque rupture in the proximal and mid left anterior descending artery. Left the vessel appeared to be free of significant disease. There was hypokinesis of the apex. Takotsubo cardiomyopathy could not be completely excluded. Recommend continuing beta-jarod and ARB. As well as low-dose furosemide. Patient's beta-jarod was changed from metoprolol succinate 50 daily to 50 twice daily. Weight / BMI Weight Weight: 93.4 kg Body Mass Index (BMI) 40.1 ABG / Lab / Microbiology Data 10/12/24 05:52 10/12/24 05:52 Laboratory: Laboratory Results - last 24 hr 10/11/24 19:46: APTT 79.6 H 10/12/24 03:28: APTT 90.2 H* 10/12/24 05:52: WBC 7.4, RBC 3.93 L, Hgb 12.5, Hct 37.8, MCV 96.2, MCH 31.8, MCHC 33.1, RDW Std Deviation 45.2 H, RDW Coeff of Gold 12.8, Plt Count 253, MPV 10.7, Immature Gran % (Auto) 0.400, Neut % (Auto) 73.0 H, Lymph % (Auto) 19.0, Eaton % (Auto) 6.6, Eos % (Auto) 0.7, Baso % (Auto) 0.3, Absolute Neuts (auto) 5.4, Absolute Lymphs (auto) 1.41, Nucleated RBC % 0, Sodium 142, Potassium 3.5, Chloride 104, Carbon Dioxide 26.9, Anion Gap 11, BUN 21 H, Creatinine 0.84, Estim Creat Clear Calc 54.52, Est GFR (MDRD) Non-Af 70, BUN/Creatinine Ratio 24.7 H, Glucose 138 H, Calcium 9.2, Triglycerides 113, Cholesterol 178, LDL Cholesterol, Calc 107, VLDL Cholesterol 23, HDL Cholesterol 48, Cholesterol/HDL Ratio 3.69, TSH 2.760 Radiography Diagnostic Testing: Radiology Impression Echocardiogram 10/11/24 09:50 Interpretation Summary Normal LV size. Moderate concentric left ventricular hypertrophy. The left ventricular ejection fraction is 50 %. [place] : Hypokinetic. Mild (1+) (more content not included)...[facility]07-08-2025 Progress note [facility] Medical Records Department [address] [place] [address] Progress Note - Hospitalist 10/12/24 0839 MR#: [id number] Acct: [id number] Name: KESHA CARMICHAEL Rep #:[id number] : 1945 79 From: Dayanna Miranda DO PCP: Dr. Chip Arreola MD Status:ADM I N Location: [place] [address] Reason for Visit Reason for Visit: Diagnoses Malignant neoplasm of unspecified site of left female breast (10/11/24) Obstructive sleep apnea (adult) (pediatric) (10/11/24) Essential (primary) hypertension (10/11/24) Paroxysmal atrial fibrillation (10/11/24) Unspecified atrial fibrillation (10/11/24) Acute on chronic diastolic (congestive) heart failure (10/11/24) Chest pain, unspecified (10/11/24) Estrogen receptor positive status [ER+] (10/11/24) Subjective Subjective Feeling well. Objective Data Objective Data Vital Signs: Vital Signs Temp Pulse Resp BP Pulse Ox O2 Del Method FiO2 37.2 C 86 18 126/86 H 96 Room Air 21 10/11/24 18:00 10/12/24 06:00 10/12/24 06:00 10/12/24 06:00 10/12/24 06:00 10/12/24 06:00 10/12/24 01:30 Oxygen Delivery Method Room Air Weight: 93.4 kg Body Mass Index (BMI) 40.1 Intake & Output: Intake and Output for Last 24 Hours 10/10/24 10/11/24 10/12/24 23:59 23:59 23:59 Intake Total 1584.17 / 1586.87 396.02 / 396.02 Balance 1584.17 / 1586.87 396.02 / 396.02 Lab / Micro Data 10/12/24 05:52 10/12/24 05:52 Labs: Laboratory Results - last 24 hr 10/11/24 08:50: WBC 8.1, RBC 4.80, Hgb 14.9, Hct 46.2, MCV 96.3, MCH 31.0, MCHC 32.3, RDW Std Deviation 46.0 H, RDW Coeff of Gold 12.9, Plt Count 290, MPV 10.3, Immature Gran % (Auto) 0.400, Neut % (Auto) 62.4, Lymph % (Auto) 30.4, Eaton % (Auto) 5.7, Eos % (Auto) 0.6, [...] 2.520 10/11/24 08:54: PT 23.6 H, INR 2.1, APTT 33.0 10/11/24 11:15: Troponin T Hi Sens 2 Hr 151 H* 10/11/24 12:58: Troponin T Hi Sens 4Hr 323 H* 10/11/24 19:46: APTT 79.6 H 10/12/24 03:28: APTT 90.2 H* 10/12/24 05:52: WBC 7.4, RBC 3.93 L, Hgb 12.5, Hct 37.8, MCV 96.2, MCH 31.8, MCHC 33.1, RDW Std Deviation 45.2 H, RDW Coeff of Gold 12.8, Plt Count 253, MPV 10.7, Immature Gran % (Auto) 0.400, Neut % (Auto) 73.0 H, Lymph % (Auto) 19.0, Eaton % (Auto) 6.6, Eos % (Auto) 0.7, Baso % (Auto) 0.3, AbsoluteNeuts (auto) 5.4, Absolute Lymphs (auto) 1.41, Nucleated RBC % 0, Sodium 142, Potassium 3.5, Chloride 104, Carbon Dioxide 26.9, Anion Gap 11, BUN 21 H, Creatinine 0.84, Estim Creat Clear Calc 54.52, Est GFR (MDRD) Non-Af 70, BUN/Creatinine Ratio 24.7 H, Glucose 138 H, Calcium 9.2, TSH 2.760 Radiography Diagnostic Testing: Radiology Impression Echocardiogram 10/11/24 09:50 Interpretation Summary Normal LV size. Moderate concentric left ventricular hypertrophy. The left ventricular ejection fraction is 50 %. [place] : Hypokinetic. Mild (1+) tricuspid valve insufficiency. Pulmonary artery systolic pressure is 30 mmHg. Ordering Physician: Lida Blum Referring Physician: Lida Blum Performed By: Alyson Sifuentes RCS Chest X-Ray 10/11/24 10:00 IMPRESSION: Lungs are clear. Chronic elevation of the left hemidiaphragm, stable since August 2018 Reading Location: [facility] Physical Exam Const alert and no apparent distress HEENT head/scalp atraumatic and moist oral mucous membranes Resp normal respiratory effort, no retractions, no use of accessory muscles and clear to auscultation bilaterally Cardio regular rate, regular rhythm, S1 normal heart sound and S2 normal heart sound GI normal to inspection, nondistended, normoactive bowel sounds, soft to palpation, non-tender and non-distended Extremity normal to inspection Assessment & Plan Assessment/Plan (1) Atrial fibrillation with RVR: PLAN: Currently improved. Patient did receive digoxin in the emergency room. Unclear if she is actually taking both of those. Will need to clarify which one she is taking or if those are correct. Themeantime patient will be on as needed IV metoprolol for heart rate greater than 160. Patient is already anticoagulated on rivaroxaban continue for now. Echocardiogram showed an EF 50%, hypokinetic apex. PASP 30 mm Hg. Changed metoprolol succinate 50/d to tartrate 50 BID. (2) Chest pain: PLAN: Initial Troponin minimally elevated at 17, then went to 323. Not an actual STEMI despite a STEMI alert being called. [facility] today showed mild eccentric plaque rupture noted in the proximal and mid left anterior descending artery. The rest of the vessels appeared to be free of significant disease. There was hypokinesisof the apex noted. Takotsubo cardiomyopathy cannot be completely excluded. PLAN: Plan Hypertension: Continue with valsartan VTE prophylaxis: Not indicated patient is already on oxygen. SOM Romero. [facility] home. Charges/Coding Visit Charges Inpatient E&M: 11431 Subs Hosp L2 10/12/24 1425 Cosigner Signature (if applicable): CC: ~ Signed [facility]07-08-2025 Progress note Author Inocente Romero [facility] Note Date/Time October 12, 2024 9:13a m [facility] Medical Records Department [address] [place] [address] Progress Note - Cardiology 10/12/24 0900 MR#: [id number] Acct: [id number] Name: KESHA CARMICHAEL Rep #:[id number] : 1945 79 From: Inocente Romero MD PCP: Dr. Chip Arreola MD Status:ADM I N Location: [place] [address] Subjective Subjective Patient seen and evaluated. Underwent cardiac catheterization today. Pain-free. Objective Data Vital Signs: Vital Signs Temp Pulse Resp BP Pulse Ox O2 Del Method FiO2 99 F 86 18 126/86 H 96 Room Air 21 10/11/24 18:00 10/12/24 06:00 10/12/24 06:00 10/12/24 06:00 10/12/24 06:00 10/12/24 06:00 10/12/24 01:30 Oxygen Delivery Method Room Air Weight: 205 lb 14.588 oz Body Mass Index (BMI) 40.1 Intake & Output: Intake and Output for Last 24 Hours 10/10/24 10/11/24 10/12/24 23:59 23:59 23:59 Intake Total 1584.17 / 1586.87 396.02 / 396.02 Balance 1584.17 / 1586.87 396.02 / 396.02 Lab / Micro Data 10/12/24 05:52 10/12/24 05:52 Labs: Laboratory Results - last 24 hr 10/11/24 08:50: WBC 8.1, RBC 4.80, Hgb 14.9, Hct 46.2, MCV 96.3, MCH 31.0, MCHC 32.3, RDW Std Deviation 46.0 H, RDW Coeff of Gold 12.9, Plt Count 290, MPV 10.3, Immature Gran % (Auto) 0.400, Neut % (Auto) 62.4, Lymph % (Auto) 30.4, Eaton % (Auto) 5.7, Eos % (Auto) 0.6, [...] 2.520 10/11/24 08:54: PT 23.6 H, INR 2.1, APTT 33.0 10/11/24 11:15: Troponin T Hi Sens 2 Hr 151 H* 10/11/24 12:58: Troponin T Hi Sens 4Hr 323 H* 10/11/24 19:46: APTT 79.6 H 10/12/24 03:28: APTT 90.2 H* 10/12/24 05:52: WBC 7.4, RBC 3.93 L, Hgb 12.5, Hct 37.8, MCV 96.2, MCH 31.8, MCHC 33.1, RDW Std Deviation 45.2 H, RDW Coeff of Gold 12.8, Plt Count 253, MPV 10.7, Immature Gran % (Auto) 0.400, Neut % (Auto) 73.0 H, Lymph % (Auto) 19.0, Eaton % (Auto) 6.6, Eos % (Auto) 0.7, Baso % (Auto) 0.3, Absolute Neuts (auto) 5.4, Absolute Lymphs (auto) 1.41, Nucleated RBC % 0, Sodium 142, Potassium 3.5, Chloride 104, Carbon Dioxide 26.9, Anion Gap 11, BUN 21 H, Creatinine 0.84, Estim Creat Clear Calc 54.52, Est GFR (MDRD) Non-Af 70, BUN/Creatinine Ratio 24.7 H, Glucose 138 H, Calcium 9.2, TSH 2.760 Cardiology Labs/Tests 10/11/24 08:50: WBC 8.1, RBC 4.80, Hgb 14.9, Hct 46.2, MCV 96.3, MCH 31.0, MCHC 32.3, Plt Count 290, MPV 10.3, Immature Gran % (Auto) 0.400, Neut % (Auto) 62.4,Lymph % (Auto) 30.4, Eaton % (Auto) 5.7, Eos % (Auto) 0.6, Baso % (Auto) 0.5, Absolute Neuts (auto) 5.1, Nucleated RBC % 0, Sodium 143, Potassium 3.8, Chloride 103, Carbon Dioxide 26.7, Anion Gap 14, BUN 27 H, Creatinine 0.92, Est GFR (MDRD) Non-Af 63, BUN/Creatinine Ratio 29.1 H, Glucose 170 H, Calcium 9.9, Magnesium 2.4 H 10/11/24 08:54: PT 23.6 H, INR 2.1, APTT 33.0 10/11/24 19:46: APTT 79.6 H 10/12/24 03:28: APTT 90.2 H* 10/12/24 05:52: WBC 7.4, RBC 3.93 L, Hgb 12.5, Hct 37.8, MCV 96.2, MCH 31.8, MCHC 33.1, Plt Count 253, MPV 10.7, Immature Gran % (Auto) 0.400, Neut % (Auto) 73.0 H, Lymph % (Auto) 19.0, Eaton % (Auto) 6.6, Eos % (Auto) 0.7, Baso % (Auto) 0.3, Absolute Neuts (auto) 5.4, Nucleated RBC % 0, Sodium 142, Potassium 3.5, Chloride 104, Carbon Dioxide 26.9, Anion Gap 11, BUN 21 H, Creatinine 0.84, Est GFR (MDRD) Non-Af 70, BUN/Creatinine Ratio 24.7 H, Glucose 138 H, Calcium 9.2 Rhythm: EKG: ECHO: Stress Test: Cardiac Cath: PCI: CT Surgery: Holter monitor: EPS: PPM: CXR: Chest CT Scan: Radiography Diagnostic Testing: Radiology Impression Echocardiogram 10/11/24 09:50 Interpretation Summary Normal LV size. Moderate concentric left ventricular hypertrophy. The left ventricular ejection fraction is 50 %. [place] : Hypokinetic. Mild (1+) tricuspid valve insufficiency. Pulmonary artery systolic pressure is 30 mmHg. Ordering Physician: Lida Blum Referring Physician: Lida Blum Performed By: Alyson Sifuentes RCS Chest X-Ray 10/11/24 10:00 IMPRESSION: Lungs are clear. Chronic elevation of the left hemidiaphragm, stable since August 2018 Reading Location: [facility] Physical Exam Const alert, oriented x3 and no apparent distress General Appearance: cooperative HEENT hearing grossly normal bilaterally Head and Scalp: atraumatic Eyes EOMs intact bilaterally Neck General: normal visual inspection Chest inspection of chest normal and palpation of chest normal Resp normal respiratory effort Auscultation: clear to auscultation bilaterally Cardio S1 normal heart sound and S2 normal heart sound Jugular Venous Distention: JVD Rhythm: abnormal rhythm irregularly irregular GI normal to inspection, nondistended, normoactive bowel sounds Extremity normal capillary refill and no pedal edema Peripheral Pulses: Yes pulses 2+ throughout and femoral pulses present Skin no rashes or lesions noted Neuro oriented x3 and CN's II-XII intact bilaterally Psych Appearance: grossly normal and appropriate Assessment & Plan Assessment/Plan (1) Non-ST elevation GA (NSTEMI): PLAN: Patient presented with a non-ST elevation myocardial infarction underwent a cardiac catheterization which demonstrated mild eccentric plaque rupture notedin the proximal and mid left anterior descending artery. The rest of the vessels appeared to be free of significant disease. There was hypokinesis of the apex noted. Takotsubo cardiomyopathy cannot be completely excluded. Recommend continuing beta-jarod Continue ARB Low-dose Lasix which can later be switched to spironolactone Aspirin (2) Paroxysmal atrial fibrillation: PLAN: Will increase beta-jarod to metoprolol tartrate 50 mg twice a day Restart rivaroxaban in a.m. (3) Essential (primary) hypertension: PLAN: Blood pressure appears to be under good control on the current medical therapy. PLAN: Plan Recommend follow-up as outpatient with cardiology office. Patient says that shewas previously been seen at the [facility]. 10/12/24912 <Electronically signed by Inocente Romero MD> Cosigner Signature (if applicable): CC: ~ Signed [facility] Work Phone: [phone] Progress note [facility] Medical Records Department [address] [place] [address] Progress Note - Cardiology 10/12/24 09 MR#: [id number] Acct: [id number] Name: KESHA CARMICHAEL Rep #:[id number] : 1945 79 From: Inocente Romero MD PCP: Dr. Chip Arreola MD Status:ADM I N Location: [place] [address] Subjective Subjective Patient seen and evaluated. Underwent cardiac catheterization today. Pain-free. Objective Data Vital Signs: Vital Signs Temp Pulse Resp BP Pulse Ox O2 Del Method FiO2 99 F 86 18 126/86 H 96 Room Air 21 10/11/24 18:00 10/12/24 06:00 10/12/24 06:00 10/12/24 06:00 10/12/24 06:00 10/12/24 06:00 10/12/24 01:30 Oxygen Delivery Method Room Air Weight: 205 lb 14.588 oz Body Mass Index (BMI) 40.1 Intake & Output: Intake and Output for Last 24 Hours 10/10/24 10/11/24 10/12/24 23:59 23:59 23:59 Intake Total 1584.17 / 1586.87 396.02 / 396.02 Balance 1584.17 / 1586.87 396.02 / 396.02 Lab / Micro Data 10/12/24 05:52 10/12/24 05:52 Labs: Laboratory Results - last 24 hr 10/11/24 08:50: WBC 8.1, RBC 4.80, Hgb 14.9, Hct 46.2, MCV 96.3, MCH 31.0, MCHC 32.3, RDW Std Deviation 46.0 H, RDW Coeff of Gold 12.9, Plt Count 290, MPV 10.3, Immature Gran % (Auto) 0.400, Neut % (Auto) 62.4, Lymph % (Auto) 30.4, Eaton % (Auto) 5.7, Eos % (Auto) 0.6, [...] 2.520 10/11/24 08:54: PT 23.6 H, INR 2.1, APTT 33.0 10/11/24 11:15: Troponin T Hi Sens 2 Hr 151 H* 10/11/24 12:58: Troponin T Hi Sens 4Hr 323 H* 10/11/24 19:46: APTT 79.6 H 10/12/24 03:28: APTT 90.2 H* 10/12/24 05:52: WBC 7.4, RBC 3.93 L, Hgb 12.5, Hct 37.8, MCV 96.2, MCH 31.8, MCHC 33.1, RDW Std Deviation 45.2 H, RDW Coeff of Gold 12.8, Plt Count 253, MPV 10.7, Immature Gran % (Auto) 0.400, Neut % (Auto) 73.0 H, Lymph % (Auto) 19.0, Eaton % (Auto) 6.6, Eos % (Auto) 0.7, Baso % (Auto) 0.3, AbsoluteNeuts (auto) 5.4, Absolute Lymphs (auto) 1.41, Nucleated RBC % 0, Sodium 142, Potassium 3.5, Chloride 104, Carbon Dioxide 26.9, Anion Gap 11, BUN 21 H, Creatinine 0.84, Estim Creat Clear Calc 54.52, Est GFR (MDRD) Non-Af 70, BUN/Creatinine Ratio 24.7 H, Glucose 138 H, Calcium 9.2, TSH 2.760 Cardiology Labs/Tests 10/11/24 08:50: WBC 8.1, RBC 4.80, Hgb 14.9, Hct 46.2, MCV 96.3, MCH 31.0, MCHC 32.3, Plt Count 290, MPV 10.3, Immature Gran % (Auto) 0.400, Neut % (Auto) 62.4,Lymph % (Auto) 30.4, Eaton % (Auto) 5.7,Eos % (Auto) 0.6, Baso % (Auto) 0.5, Absolute Neuts (auto) 5.1, Nucleated RBC % 0, Sodium 143, Potassium 3.8, Chloride 103, Carbon Dioxide 26.7, Anion Gap 14, BUN 27 H, Creatinine 0.92, Est GFR (MDRD) Non-Af 63, BUN/Creatinine Ratio 29.1 H, Glucose 170 H, Calcium 9.9, Magnesium 2.4 H 10/11/24 08:54: PT 23.6 H, INR 2.1, APTT 33.0 10/11/24 19:46: APTT 79.6 H 10/12/24 03:28: APTT 90.2 H* 10/12/24 05:52: WBC 7.4, RBC 3.93 L, Hgb 12.5, Hct 37.8, MCV 96.2, MCH 31.8, MCHC 33.1, Plt Count 253, MPV 10.7, Immature Gran % (Auto) 0.400, Neut % (Auto) 73.0 H, Lymph % (Auto) 19.0, Eaton % (Auto)6.6, Eos % (Auto) 0.7, Baso % (Auto) 0.3, Absolute Neuts (auto) 5.4, Nucleated RBC % 0, Sodium 142,Potassium 3.5, Chloride 104, Carbon Dioxide 26.9, Anion Gap 11, BUN 21 H, Creatinine 0.84, Est GFR (MDRD) Non-Af 70, BUN/Creatinine Ratio 24.7 H, Glucose 138 H, Calcium 9.2 Rhythm: EKG: ECHO: Stress Test: Cardiac Cath: PCI: CT Surgery: Holter monitor: EPS: PPM: CXR: Chest CT Scan: Radiography Diagnostic Testing: Radiology Impression Echocardiogram 10/11/24 09:50 Interpretation Summary Normal LV size. Moderate concentric left ventricular hypertrophy. The left ventricular ejection fraction is 50 %. [place] : Hypokinetic. Mild (1+) tricuspid valve insufficiency. Pulmonary artery systolic pressure is 30 mmHg. Ordering Physician: Lida Blum Referring Physician: Lida Blum Performed By: Alyson Sifuentes RCS Chest X-Ray 10/11/24 10:00 IMPRESSION: Lungs are clear. Chronic elevation of the left hemidiaphragm, stable since August 2018 Reading Location: [facility] Physical Exam Const alert, oriented x3 and no apparent distress General Appearance: cooperative HEENT hearing grossly normal bilaterally Head and Scalp: atraumatic Eyes EOMs intact bilaterally Neck General: normal visual inspection Chest inspection of chest normal and palpation of chest normal Resp normal respiratory effort Auscultation: clear to auscultation bilaterally Cardio S1 normal heart sound and S2 normal heart sound Jugular Venous Distention: JVD Rhythm: abnormal rhythm irregularly irregular GI normal to inspection, nondistended, normoactive bowel sounds Extremity normal capillary refill and no pedal edema Peripheral Pulses: Yes pulses 2+ throughout and femoral pulses present Skin no rashes or lesions noted Neuro oriented x3 and CN's II-XII intact bilaterally Psych Appearance: grossly normal and appropriate Assessment & Plan Assessment/Plan (1) Non-ST elevation GA (NSTEMI): PLAN: Patient presented with a non-ST elevation myocardial infarction underwent a cardiac catheterization which demonstrated mild eccentric plaque rupture notedin the proximal and mid left anterior descending artery. The rest of the vessels appeared to be free of significant disease. There was hypokinesis of the apex noted. Takotsubo cardiomyopathy cannot be completely excluded. Recommend continuing beta-jarod Continue ARB Low-dose Lasix which can later be switched to spironolactone Aspirin (2) Paroxysmal atrial fibrillation: PLAN: Will increase beta-jarod to metoprolol tartrate 50 mg twice a day Restart rivaroxaban in a.m. (3) Essential (primary) hypertension: PLAN: Blood pressure appears to be under good control on the current medical therapy. PLAN: Plan Recommend follow-up as outpatient with cardiology office. Patient says that shewas previously been seen at the [facility]. 10/12/24 0913 Cosigner Signature (if applicable): CC: ~ Signed [facility]07-07-2025 Consult note Author Lida Blum [facility] Note Date/Time October 11, 2024 1:16p m [facility] Medical Records Department [address] [place] [address] Consultation - Cardiology 10/11/24 1301 MR#: [id number] Acct: [id number] Name: KESHA CARMICHAEL Rep #:[id number] : 1945 79 From: Lida Blum MD PCP: Dr. Chip Arreola MD Status:ADM I N Location: [place] [address]- 1 Assessment & Plan Assessment/Plan (1) Chest pain: (2) Paroxysmal atrial fibrillation: (3) Acute on chronic diastolic (congestive) heart failure: (4) Essential (primary) hypertension: (5) Malignant neoplasm of left breast, estrogen receptor positive: QUALIFIERS: Breast location: 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 Patient sex: female Qualified Code(s): C50.912 - Malignant neoplasm of unspecified siteof left female breast; Z17.0 - Estrogen receptor positive status [ER+] (6) RONALDO (obstructive sleep apnea): PLAN: 79-year-old patient brought to the ED by the EMS With retrosternal chest pain this morning, it happened this morning while she was brushing her teeth she called her neighbor who called the EMS service. Patient has a history of paroxysmal atrial fibrillation and was on treatment with rivaroxaban 20 mg at bedtime She had recently noted epistaxis. Other medical problem include history of RONALDO Diastolic heart failure Symptoms of chest pain described as 7 out of 10 she was not diaphoretic. Resolution of chest pain while in the ED after, with nitroglycerin and will give her IV digoxin 125 mcg To control the ventricular rate. As well a bedside echocardiogram showed segmental wall motion with apical hypokinesia And possible apical thrombus with Definity IV.. Cardiac care plan; Patient presenting with retrosternal chest pain has paroxysmal atrial fibrillation Has change in the EKG, with some ST elevation noted in 1 and aVL with reciprocal change, ST depression in the inferior lead. She is a high risk, for immediate cardiac catheterization as she has epistaxes and she has a elevated INR 2.1 And has been on Xarelto/rivaroxaban 20 mg which she took last night Noted INR elevated to 2.1. Based on the clinical presentation I recommend the following 1. Rate control using calcium channel jarod and beta-jarod 2. Will start on heparin IV and to hold Xarelto/rivaroxaban 3. Will review series of high sensitive troponin initial troponin level within normal 17. 4. Echocardiogram, reviewed in the ED with segmental wall motion abnormality as described apical hypokinesia With question of LV thrombus Patient will require further evaluation during this admission with cardiac catheterization as we will stop the rivaroxaban and continue on heparin and will plan for cardiac catheterization right radial artery approach, tomorrow?Friday By Dr. Romero.. Lida Blum MD,[facility] emergency services professional HPI Consult Data Date of Consult: 10/11/24 HPI Narrative Reason for Consultation: STEMI alert HPI Narrative: KEHSA CARMICHAEL, is a 79 F who presents [facility] Medical History Non-rheumatic tricuspid valve insufficiency Paroxysmal atrial fibrillation Acute on chronic diastolic (congestive) heart failure Secondary pulmonary arterial hypertension Essential (primary) hypertension Persistent atrial fibrillation RONALDO (obstructive sleep apnea) Obesity, Class III, BMI 40-49.9 (morbid obesity) Malignant neoplasm of left breast, estrogen receptor positive Type 2 diabetes mellitus Osteoarthritis Migraines Knee pain, chronic Inferior GA Hyperglycemia Epistaxis Home Medications ?Medication ?Instructions ?Recorded [...] mg tablet 20 mg PO DAILY 11/03/18 08/09/23 History metoprolol succinate 25 mg 25 mg [...] never substance use type: does not use Physical Exam Cardio Cardio Narrative: Patient seen at bedside in ED at [facility] Brought in by the squad complaining of precordial chest pain The cardiac cath rn revealed A-fib with RVR. Cardiac exam S1-S2 is regular Chest exam clear to auscultation bilateral Examination lower extremity no lower extremity edema noted. Risk Stratification Risk Stratification Applicable: No Objective Data Vital Signs: Vital Signs Temp Pulse Resp BP Pulse Ox O2 Del Method 99.2 F H 116 H 18 115/93 H 95 Room Air 10/11/24 11:18 10/11/24 11:18 10/11/24 11:18 10/11/24 11:18 10/11/24 11:18 10/11/24 12:52 Oxygen Delivery Method Room Air Weight: 205 lb 14.588 oz Body Mass Index (BMI) 40.1 Intake & Output: Intake and Output for Last 24 Hours 10/09/24 10/10/24 10/11/24 23:59 23:59 23:59 Intake Total 1039.15 / 1039.15 Balance 1039.15 / 1039.15 Lab / Micro Data 10/11/24 08:50 10/11/24 08:50 Labs: Laboratory Results - last 24 hr 10/11/24 08:50: WBC 8.1, RBC 4.80, Hgb 14.9, Hct 46.2, MCV 96.3, MCH 31.0, MCHC 32.3, RDW Std Deviation 46.0 H, RDW Coeff of Gold 12.9, Plt Count 290, MPV 10.3, Immature Gran % (Auto) 0.400, Neut % (Auto) 62.4, Lymph % (Auto) 30.4, Eaton % (Auto) 5.7, Eos % (Auto) 0.6, [...] 2.520 10/11/24 08:54: PT 23.6 H, INR 2.1, APTT 33.0 10/11/24 11:15: Troponin T Hi Sens 2 Hr 151 H* Cardiology Labs/Tests 10/11/24 08:50: WBC 8.1, RBC 4.80, Hgb 14.9, Hct 46.2, MCV 96.3, MCH 31.0, MCHC 32.3, Plt Count 290, MPV 10.3, Immature Gran % (Auto) 0.400, Neut % (Auto) 62.4, Lymph % (Auto) 30.4, Eaton % (Auto) 5.7, Eos % (Auto) 0.6, Baso % (Auto) 0.5, Absolute Neuts (auto) 5.1, Nucleated RBC % 0, Sodium 143, Potassium 3.8, Chloride 103, Carbon Dioxide 26.7, Anion Gap 14, BUN 27 H, Creatinine 0.92, Est GFR (MDRD) Non-Af 63, BUN/Creatinine Ratio 29.1 H, Glucose 170 H, Calcium 9.9, Magnesium 2.4 H 10/11/24 08:54: PT 23.6 H, INR 2.1, APTT 33.0 Rhythm: EKG: ECHO: Stress Test: Cardiac Cath: PCI: CT Surgery: Holter monitor: EPS: PPM: CXR: Chest CT Scan: Radiography Diagnostic Testing: Radiology Impression Chest X-Ray 10/11/24 10:00 IMPRESSION: Lungs are clear. Chronic elevation of the left hemidiaphragm, stable since August 2018 Reading [facility] 10/11/24 1316 <Electronically signed by Lida Blum MD> Cosigner Signature (if applicable): CC: Dr. Lida Blum MD; Dr. Chip Arreola MD~ Signed [facility] Work Phone: 1(855) 587-500407-07-2025 Consult note [facility] Medical Records Department [address] [place] [address] Consultation - Cardiology 10/11/24 1301 MR#: [id number] Acct: [id number] Name: KESHA CARMICHAEL Rep #:[id number] : 1945 79 From: Lida Blum MD PCP: Dr. Chip Arreola MD Status:ADM I N Location: [place] [address] Assessment & Plan Assessment/Plan (1) Chest pain: (2) Paroxysmal atrial fibrillation: (3) Acute on chronic diastolic (congestive) heart failure: (4) Essential (primary) hypertension: (5) Malignant neoplasm of left breast, estrogen receptor positive: QUALIFIERS: Breast location: 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 Patient sex: female Qualified Code(s): C50.912 - Malignant neoplasm of unspecified siteof left female breast; Z17.0 - Estrogen receptor positive status [ER+] (6) RONALDO (obstructive sleep apnea): PLAN: 79-year-old patient brought to the ED by the EMS With retrosternal chest pain this morning, it happened this morning while she was brushing her teeth she called her neighbor who called the EMS service. Patient has a history of paroxysmal atrial fibrillation and was on treatment with rivaroxaban 20 mgat bedtime She had recently noted epistaxis. Other medical problem include history of RONALDO Diastolic heart failure Symptoms of chest pain described as 7 out of 10 she was not diaphoretic. Resolution of chest pain while in the ED after, with nitroglycerin and will give her IV digoxin 125mcg To control the ventricular rate. As well a bedside echocardiogram showed segmental wall motion with apical hypokinesia And possible apical thrombus with Definity IV.. Cardiac care plan; Patient presenting with retrosternal chest pain has paroxysmal atrial fibrillation Has change in the EKG, with some ST elevation noted in 1 and aVL with reciprocal change, ST depression in the inferior lead. She is a high risk, for immediate cardiac catheterization as she has epistaxes and she has a elevated INR 2.1 And has been on Xarelto/rivaroxaban 20 mg which she took last night Noted INR elevated to 2.1. Based on the clinical presentation I recommend the following 1. Rate control using calcium channel jarod and beta-jarod 2. Will start on heparin IV and to hold Xarelto/rivaroxaban 3. Will review series of high sensitive troponin initial troponin level within normal 17. 4. Echocardiogram, reviewed in the ED with segmental wall motion abnormality as described apical hypokinesia With question of LV thrombus Patient will require further evaluation during this admission with cardiac catheterization as we will stop the rivaroxaban and continue on heparin and will plan for cardiac catheterization right radial artery approach, tomorrow?Friday By Dr. Romero.. Lida Blum MD,[facility] emergency services professional HPI Consult Data Date of Consult: 10/11/24 HPI Narrative Reason for Consultation: STEMI alert HPI Narrative: KESHA CARMICHAEL, is a 79 F who presents [facility] Medical History Non-rheumatic tricuspid valve insufficiency Paroxysmal atrial fibrillation Acute on chronic diastolic (congestive) heart failure Secondary pulmonary arterial hypertension Essential (primary) hypertension Persistent atrial fibrillation RONALDO (obstructive sleep apnea) Obesity, Class III, BMI 40-49.9 (morbid obesity) Malignant neoplasm of left breast, estrogen receptor positive Type 2 diabetes mellitus Osteoarthritis Migraines Knee pain, chronic Inferior GA Hyperglycemia Epistaxis Home Medications ?Medication ?Instructions ?Recorded [...] never substance use type: does not use Physical Exam Cardio Cardio Narrative: Patient seen at bedside in ED at [facility] Brought in by the squad complaining of precordial chest pain The cardiac cath rn revealed A-fib with RVR. Cardiac exam S1-S2 is regular Chest exam clear to auscultation bilateral Examination lower extremity no lower extremity edema noted. Risk Stratification Risk Stratification Applicable: No Objective Data Vital Signs: Vital Signs Temp Pulse Resp BP Pulse Ox O2 Del Method 99.2 F H 116 H 18 115/93 H 95 Room Air 10/11/24 11:18 10/11/24 11:18 10/11/24 11:18 10/11/24 11:18 10/11/24 11:18 10/11/24 12:52 Oxygen Delivery Method Room Air Weight: 205 lb 14.588 oz Body Mass Index (BMI) 40.1 Intake & Output: Intake and Output for Last 24 Hours 10/09/24 10/10/24 10/11/24 23:59 23:59 23:59 Intake Total 1039.15 / 1039.15 Balance 1039.15 / 1039.15 Lab / Micro Data 10/11/24 08:50 10/11/24 08:50 Labs: Laboratory Results - last 24 hr 10/11/24 08:50: WBC 8.1, RBC 4.80, Hgb 14.9, Hct 46.2, MCV 96.3, MCH 31.0, MCHC 32.3, RDW Std Deviation 46.0 H, RDW Coeff of Gold 12.9, Plt Count 290, MPV 10.3, Immature Gran % (Auto) 0.400, Neut % (Auto) 62.4, Lymph % (Auto) 30.4, Eaton % (Auto) 5.7, Eos % (Auto) 0.6, [...] 2.520 10/11/24 08:54: PT 23.6 H, INR 2.1, APTT 33.0 10/11/24 11:15: Troponin T Hi Sens 2 Hr 151 H* Cardiology Labs/Tests 10/11/24 08:50: WBC 8.1, RBC 4.80, Hgb 14.9, Hct 46.2, MCV 96.3, MCH 31.0, MCHC 32.3, Plt Count 290, MPV 10.3, Immature Gran % (Auto) 0.400, Neut % (Auto) 62.4, Lymph % (Auto) 30.4, Eaton % (Auto) 5.7, Eos % (Auto) 0.6, Baso % (Auto) 0.5, Absolute Neuts (auto) 5.1, Nucleated RBC % 0, Sodium 143, Potassium 3.8, Chloride 103, Carbon Dioxide 26.7, Anion Gap 14, BUN 27 H, Creatinine 0.92, Est GFR (MDRD) Non-Af 63, BUN/Creatinine Ratio 29.1 H, Glucose 170 H, Calcium 9.9, Magnesium 2.4 H 10/11/24 08:54: PT 23.6 H, INR 2.1, APTT 33.0 Rhythm: EKG: ECHO: Stress Test: Cardiac Cath: PCI: CT Surgery: Holter monitor: EPS: PPM: CXR: Chest CT Scan: Radiography Diagnostic Testing: Radiology Impression Chest X-Ray 10/11/24 10:00 IMPRESSION: Lungs are clear. Chronic elevation of the left hemidiaphragm, stable since August 2018 Reading [facility] 10/11/24 1316 Cosigner Signature (if applicable): CC: Dr. Lida Blum MD; Dr. Chip Arreola MD~ Signed [facility]07-07-2025 Discharge summary Author Ruiz Reaves [facility] Note Date/Time October 11, 2024 10:38 am [facility] Medical Records Department [address] [place] [address] Emergency Department Summary 10/11/24 MR#: [id number] Acct: [id number] Name: KESHA CARMICHAEL Rep #:[id number] : 1945 79 From: Ruiz Reaves DO PCP: Dr. Chip Arreola MD Status:ADM I N Location: ICU [address] History of Present Illness Chief Complaint: [...] blood pressure and possibility of inferior wall GA. They held off on aspirin aswell and prehospital she was on Xarelto. PFSH [facility] Medical History Non-rheumatic tricuspid valve insufficiency Paroxysmal atrial fibrillation Acute on chronic diastolic (congestive) heart failure Secondary pulmonary arterial hypertension Essential (primary) hypertension Persistent atrial fibrillation RONALDO (obstructive sleep apnea) Obesity, Class III, BMI 40-49.9 (morbid obesity) Malignant neoplasm of left breast, estrogen receptor positive Type 2 diabetes mellitus Osteoarthritis Migraines Knee pain, chronic Inferior GA Hyperglycemia Epistaxis Home Medications ?Medication ?Instructions ?Recorded [...] Patient follow commands that she was at [facility] the year is 2024 Skin: Warm, [...] STEMI therefore STEMI alert was called on-call puttying and calking supervisor Dr. Blum came down and evaluated the patient at bedside. He is recommending aspirin and beta-jarod. He is also requesting aspirin, heparin drip, nitroglycerin drip which were all ordered multiple EKGs were obtained and reviewed therefore after this further review by puttying and calking supervisor he also would prefer to get rate [...] % (Auto) 62.4 Lymph % (Auto) 30.4 Eaton % (Auto) 5.7 Eos % (Auto) 0.6 [...] Paroxysmal atrial fibrillation, Chest pain, Non-ST elevation GA (NSTEMI) Primary Care Provider: Chip Arreola Disposition Disposition: Acute Care Hospital [facility] What to do if you have Problems For any increased pain, shortness of breath, bleeding, nausea or vomiting, chestpain, or any unexpected problems, contact your Primary Care Provider. Call [facility] ([phone]) or report to the closest Emergency Room. Call 911 if necessary. 10/11/24 1038 <Electronically signed by Ruiz Reaves DO> Cosigner Signature (if applicable): CC: Dr. Chip Arreola MD ~ Signed [facility] Work Phone: 1(522) 619-295507-07-2025 History and physical note Author Dayanna Miranda [facility] Note Date/Time October 11, 2024 10:33 am [facility] Medical Records Department [address] [place] [address] H&P Exam - Hospitalist 10/11/24 1026 MR#: [id number] Acct: [id number] Name: KESHA CARMICHAEL Rep #:[id number] : 1945 79 From: Dayanna Miranda DO PCP: Dr. Chip Arreola MD Status:ADM I N Location: ICU ICU05-1 HPI - General General Date of Admission: 10/11/24 Date of Service: 10/11/24 Chief Complaint: Chest pain HPI Narrative KESHA CARMICHAEL, is a 79 F who presents with epistaxis and chest pain. This is [id number] male who has a history of A-fib [...] heart rate is fast all the time. [facility] Medical History Non-rheumatic tricuspid valve insufficiency Paroxysmal atrial fibrillation Acute on chronic diastolic (congestive) heart failure Secondary pulmonary arterial hypertension Essential (primary) hypertension Persistent atrial fibrillation RONALDO (obstructive sleep apnea) Obesity, Class III, BMI 40-49.9 (morbid obesity) Malignant neoplasm of left breast, estrogen receptor positive Type 2 diabetes mellitus Osteoarthritis Migraines Knee pain, chronic Inferior GA Hyperglycemia Epistaxis Home Medications ?Medication ?Instructions ?Recorded [...] % (Auto) 62.4, Lymph % (Auto) 30.4, Eaton % (Auto) 5.7, Eos % (Auto) 0.6, [...] on oxygen. Charges/Coding Visit Charges Inpatient E&M: 87936 Init Hosp L3 10/11/24 1033 <Electronically signed by Dayanna Miranda DO> Cosigner Signature (if applicable): CC: Dr. Dayanna Miranda DO; Dr. Chip Arreola MD~ Signed [facility] Work Phone: [phone]) 669-390107-07-2025 Evaluation note* Diagnosis Onset Date Resolution Status Admit Date Chest pain acute October 11, 2024 10:20am Non-ST elevation GA (NSTEMI) acute October 11, 2024 10:20am Acute on chronic diastolic (congestive) heart failure chronic October 11, 2024 10:20am Essential (primary) hypertension chronic October 11, 2024 1 0:20am Malignant neoplasm of left breast, estrogen receptor positive chronic October 11, 2024 1 0:20am RONALDO (obstructive sleep apnea) chroni c October 11, 2024 10:20am Paroxysmal atrial fibrillation chron ic October 11, 2024 10:20am Atrial fibrillation with RVR resolve d October 11, 2024 10:20am [facility] Work Phone: 1(418) 226-833307-07-2025 Evaluation note* Diagnosis Onset Date Resolution Status Admit Date Chest pain acute October 11, 2024 9:12am Atrial fibrillation with RVR resolve d October 11, 2024 9:12am [facility] Work Phone: 1(842) 710-997407-07-2025 Discharge summary [facility] Medical Records Department [address] [place] [address] Emergency Department Summary 10/11/24 MR#: [id number] Acct: [id number] Name: KESHA CARMICHAEL Rep #:[id number] : 1945 79 From: Ruiz Reaves DO PCP: Dr. Chip Arreola MD Status:ADM I N Location: ICU [address] [place] [address] History of Present Illness Chief Complaint: Chest [...] blood pressure and possibility of inferior wall GA. They held off on aspirin aswell and prehospital she was onXarelto. [facility] Medical History Non-rheumatic tricuspid valve insufficiency Paroxysmal atrial fibrillation Acute on chronic diastolic (congestive) heart failure Secondary pulmonary arterial hypertension Essential (primary) hypertension Persistent atrial fibrillation RONALDO (obstructive sleep apnea) Obesity, Class III, BMI 40-49.9 (morbid obesity) Malignant neoplasm of left breast, estrogen receptor positive Type 2 diabetes mellitus Osteoarthritis Migraines Knee pain, chronic Inferior GA Hyperglycemia Epistaxis Home Medications ?Medication ?Instructions ?Recorded [...] Patient follow commands that she was at [facility] the year is 2024 Skin: Warm, [...] STEMI therefore STEMI alert was called on-call puttying and calking supervisor Dr. Blum came down and evaluated the patient at bedside. He is recommending aspirin and beta-jarod. He is also requesting aspirin, heparin drip, nitroglycerin drip which were all ordered multiple EKGs were obtained and reviewed therefore after this further review by puttying and calking supervisor he also would prefer to get rate [...] % (Auto) 62.4 Lymph % (Auto) 30.4 Eaton % (Auto) 5.7 Eos % (Auto) 0.6 [...] Paroxysmal atrial fibrillation, Chest pain, Non-ST elevation GA (NSTEMI) Primary Care Provider: Chip Arreola Disposition Disposition: Acute Care Hospital [facility] What to do if you have Problems For any increased pain, shortness of breath, bleeding, nausea or vomiting, chestpain, or any unexpected problems, contact your Primary Care Provider. Call [facility] ([phone]) or report tothe closest Emergency Room. Call 911 if necessary. 10/11/24 1038 Cosigner Signature (if applicable): CC: Dr. hCip Arreola MD ~ Signed [facility]07-07-2025 History and physical note [facility] Medical Records Department [address] [place] [address] H&P Exam - Hospitalist 10/11/24 1026 MR#: [id number] Acct: [id number] Name: KESHA CARMICHAEL Rep #:[id number] : 1945 79 From: Dayanna Miranda DO PCP: Dr. Chip Arreola MD Status:ADM I N Location: ICU ICU05-1 HPI - General General Date of Admission: 10/11/24 Date of Service: 10/11/24 Chief Complaint: Chest pain HPI Narrative KESHA CARMICHAEL, is a 79 F who presents with epistaxis and chest pain. This is [id number] male whohas a history of A-fib on [...] heart rate is fast all the time. [facility] Medical History Non-rheumatic tricuspid valve insufficiency Paroxysmal atrial fibrillation Acute on chronic diastolic (congestive) heart failure Secondary pulmonary arterial hypertension Essential (primary) hypertension Persistent atrial fibrillation RONALDO (obstructive sleep apnea) Obesity, Class III, BMI 40-49.9 (morbid obesity) Malignant neoplasm of left breast, estrogen receptor positive Type 2 diabetes mellitus Osteoarthritis Migraines Knee pain, chronic Inferior GA Hyperglycemia Epistaxis Home Medications ?Medication ?Instructions ?Recorded [...] % (Auto) 62.4, Lymph % (Auto) 30.4, Eaton % (Auto) 5.7, Eos % (Auto) 0.6, [...] on oxygen. Charges/Coding Visit Charges Inpatient E&M: 02264 Init Hosp L3 10/11/24 1033 Cosigner Signature (if applicable): CC: Dr. Dayanna Miranda DO; Dr. Chip Arreola MD~ Signed [facility]07-07-2025 Radiology Diagnostic study note [facility] Imaging Services [address] [place], [place] [id number] Chest PA and Lateral MR#: [id number] Acct: [id number] Name: KESHA CARMICHAEL Rep #: [id number] : 1945 F 79 From: Pet er Peer DO PCP: Dr. Chip Arreola MD Status: ADM I N Study:Chest PA and Lateral Date of Exam: 10/11/24 Exam# [id number] Ordering Dr: Kimberli Reaves DO PROCEDURE: CHEST [...] hemidiaphragm, stable since August 2018 [facility] CC: Dr. Ruiz Reaves, DO; Dr. Chip Arreola MD ~ Senior Structural Engineer: Signed [facility]07-03-2025 Instructions* Patient Instructions* Dominga Reese PA-C - 10/07/2024 9:15 AM EDT Dominga Lewis [phone] (Chantal-Jack Prizer) You may do the [place] 6 exercises: Rows, Biceps Curls, Triceps, Shrugs, Free weights up overhead & Close contract technical writer pull downs. Avoid these exercises: Flys, seated flies, upright rows, dips, push ups or pull ups. If the elbow is away, you will pay. [facility] NoteHNO ID: [id number] Author: DOMINGA REESE PA-C Service: ? Author Type: Physician Cafe Helper Type: Progress Notes Filed: 10/07/2024 09:15 Note Text: [facility] NOTE Department of Orthopaedics Dayanna Lewis M.D. NAME: Kesha Curiel [facility] NO.: [id number] DATE: October 07, 2024 Kesha returns for [...] result) Impression: IMPRESSION: Degenerative changes as described. Senior Structural Engineer: RG Transcribe Date/Time: Jun 22 2024 8:45P... XR SHOULDER GENERAL 3V OR MORE AP/TRUE AP/OTHER RIGHT Exam End: 06/18/2024 1:23 PM (Final result) Impression: IMPRESSION: Degenerative changes as described. Senior Structural Engineer: RG Transcribe Date/Time: Jun 22 2024 8:45P... [...] these instructions. Informed Consent Consent Obtained: Verbal [place] Protocol A moment to CARE was completed. [...] inserted. SIGN OUT No specimen collected. [facility] History of Present illness Narrative* Hugh Dominga Curiel PA-C - 10/07/2024 9:12 AM EDTAssociated Order(s): Large Joint Arthro/Inj: bilateral glenohumerals Post-Procedure Diagnose(s): Rotator cuff tear arthropathy, right; Rotator cuff tear arthropathy, left [facility] NOTE Department of Orthopaedics Dayanna Lewis M.D. NAME: Kesha Curiel [facility] NO.: [id number] DATE: October 07, 2024 Kesha returns for [...] result) Impression: IMPRESSION: Degenerative changes as described. Senior Structural Engineer: RG Transcribe Date/Time: Jun 22 2024 8:45P... XR SHOULDER GENERAL 3V OR MORE AP/TRUE AP/OTHER RIGHT Exam End: 06/18/2024 1:23 PM (Final result) Impression: IMPRESSION: Degenerative changes as described. Senior Structural Engineer: RG Transcribe Date/Time: Jun 22 2024 8:45P... [...] these instructions. Informed Consent Consent Obtained: Verbal [place] Protocol A moment to CARE was completed. [...] collected. Dominga Reese PA-C documented in this encounterAvita [facility]07-[facility] Telephone encounter Note * Telephone Encounter - Angy Phipps RN - 10/06/2024 9:21 AM EDT Patient calls and notified of results and providers instructions. Patient verbalizes understanding. Patient transferred to schedule consult with endocrinology. Angy Phipps RN [facility]07-02-2025 Miscellaneous Notes* Telephone Encounter - Angy Phipps RN - 10/06/2024 9:21 AM EDT Patient calls and notified of results and providers instructions. Patient verbalizes understanding. Patient transferred to schedule consult with endocrinology. Angy Phipps, RN * Telephone Encounter - Shadia Sunshine [...] what we should do. documented in this encounterAvita Health System [facility]07-01-2025 Telephone encounter Note * Telephone Encounter - Shadia Sunshine LPN - 10/05/2024 5:08 PM EDT Left message to call and speak with nurse. [facility]07-01-[facility]25 Progress note* Result Encounter Note - Belkys Mcintyre APRN.CNP - 10/05/2024 8:35 AM EDT Vitamin D level is okay. Calcium levels, kidney function, liver function, and blood counts are normal. Parathyroid hormone is even higher. I am going to consult endocrine. I just want them to weigh in and decide what we should do. [facility]06-30-2025 Instructions* Patient Instructions* Belkys Mcintyre APRN.CNP - 10/04/2024 10:36 AM EDT WHAT YOU [...] review all the medicines you take, even wrrj-mvx-zfumfwz medicines. As you get older, the way [...] have certain medical conditions. documented in this encounterAvita Health System [facility]06-30-2025 NoteHNO ID: [id number] Author: BELKYS MCINTYRE APRN.CNP Service: ? Author [...] HISTORY Diagnosis Date Abnormal EKG afib, inf GA age undetermined Atrial fibrillation (HCC) Breast cancer (HCC) 03/2018 left breast Closed fracture of right distal radius 09/10/2021 Congestive heart failure (HCC) 09/24/2018 Epistaxis balloon out 5-210-2011 osteo History of colonoscopy [address] Stoney Hernandez , normal HTN (hypertension) Hyperglycemia Knee pain, chronic Lt Migraines stopped when she retired Normal cardiac stress test 2004 Dr. Romero Osteoarthritis Seasonal allergies Type 2 diabetes mellitus without complication, without long-term current use of insulin ([facility]) 04/11/2016 PAST SURGICAL HISTORY Procedure Laterality Date [...] 1 tablet by mouth once daily. vit C,F-Om-vrqwf-lutein-zeaxan (PRESERVISION AREDS-2) 250-90-40-1 mg Take 1 capsule [...] Mother Hypertension Mother Hypertension Father Heart Father GA Diabetes Father Kidney Disease Sister Heart disease [...] Maternal Grandmother No Kn (more content not included)...[facility]06-30-2025 History of Present illness Narrative* Belkys Mcintyre APRN.LAUNDRY MACHINE MECHANIC - 10/04/2024 10:20 AM EDT This is [...] HISTORY Diagnosis Date Abnormal EKG afib, inf GA age undetermined Atrial fibrillation (HCC) Breast cancer (HCC) 03/2018 left breast Closed fracture of right distal radius 09/10/2021 Congestive heart failure (HCC) 09/24/2018 Epistaxis balloon out -210-2011 osteo History of colonoscopy [address] Stoney Hernandez , normal HTN (hypertension) Hyperglycemia Knee pain, chronic Lt Migraines stopped when she retired Normal cardiac stress test 2004 Dr. Romero Osteoarthritis Seasonal allergies Type 2 diabetes mellitus without complication, without long-term current use of insulin ([facility]) 04/11/2016 PAST SURGICAL HISTORY Procedure Laterality Date [...] W/WO RMVL TUBE OVARY 1975 Hysterectomy, DANYELLE ALLERGIES Adhesive Tape-Silicones, Anastrozole, Aquacel-Ag [...] 1 tablet by mouth once daily. vit C,C-Gb-bvovx-lutein-zeaxan (PRESERVISION AREDS-2) 250-90-40-1 mg Take 1 capsule [...] Mother Hypertension Mother Hypertension Father Heart Father [place] Diabetes Father Kidney Disease Sister Heart disease [...] needed for worsening/no improvement. Belkys Mcintyre CNP, FLOOR TILING PROFESSIONAL documented in this encounterAvita Health System [facility]04-21-2025 Telephone encounter Note * Telephone Encounter - Belkys Mcintyre APRN.CNP - 07/26/2024 8:00 AM EDT The following approved medication requests have been transmitted electronically. Requested Prescriptions Pending Prescriptions Disp Refills valsartan (DIOVAN) 160 mg tablet 90 tablet 3 Sig: Take 1 tablet by mouth once daily. Belkys Mcintyre APRN.CNP [facility]04-21-2025 Miscellaneous Notes* Telephone Encounter - Belkys Mcintyre APRN.CNP - 07/26/2024 8:00 AM EDT The following approved medication requests have been transmitted electronically. Requested Prescriptions Pending Prescriptions Disp Refills valsartan (DIOVAN) 160 mg tablet 90 tablet 3 Sig: Take 1 tablet by mouth once daily. Belkys Mcintyre APRN.CNP documented in this encounterAvita Health System [facility]03-20-2025 NoteHNO ID: [id number] Author: DAYANNA LEWIS MD Service: ? Author Type: Physician Type: Progress Notes Filed: 06/24/2024 08:58 Note Text: [facility] NOTE Department of Orthopaedics Dayanna Lewis M.D. NAME: Kesha Curiel [facility] NO.: [id number] DATE: June 24, 2024 Kesha returns for [...] voiced understanding of these instructions. Informed Consent [place] Protocol A moment to CARE was completed. [...] should not hesitate to call. Dayanna Lewis M.D.[facility]03-20-2025 History of Present illness Narrative* Dayanna Lewis MD - 06/24/2024 8:50 AM EDTAssociated Order(s): Large Joint Arthro/Inj: bilateral glenohumerals Post-Procedure Diagnose(s): Rotator cuff tear arthropathy, left; Rotator cuff tear arthropathy, right [facility] NOTE Department of Orthopaedics Dayanna Lewis M.D. NAME: Kesha Curiel [facility] NO.: [id number] DATE: June 24, 2024 Kesha returns for [...] voiced understanding of these instructions. Informed Consent [place] Protocol A moment to CARE was completed. [...] call. Dayanna Lewis M.D. documented in this encounterAvita Health System [facility]03-14-2025 History of Present illness Narrative* Lona Loving RT(Charlie) - 06/18/2024 1:00 PM EDT Radiology Service [...] PATIENT PRESENTS WITH AN IMPLANTABLE OR ATTACHED INSPECTOR OPTICAL INSTRUMENT: No RADIOLOGY DEPARTMENT: General X-ray: Exam(s) Completed: Upper Extremity X- Ray(s): Shoulder, AP / TRUE AP bilateral , Y VIEW PERIPHERAL IV DATA: Not applicable SIGNED BY: RT Joann(Charlie) June 18, 2024 1:30 PM documented in this encounterAvita Health System [facility]03-14-2025 NoteHNO ID: [id number] Author: FABIENNE, LONA, RT(R) Service: ? Author Type: Technologist Type: Progress [...] PATIENT PRESENTS WITH AN IMPLANTABLE OR ATTACHED INSPECTOR OPTICAL INSTRUMENT: No RADIOLOGY DEPARTMENT: General X-ray: Exam(s) Completed: Upper Extremity X-Ray(s): Shoulder, AP / TRUE AP bilateral , Y VIEW PERIPHERAL IV DATA: Not applicable SIGNED BY: RT Joann(R) June 18, 2024 1:30 [facility]03-03-2025 NoteHNO ID: [id number] Author: BLOSSOM WHITE PT Service: ? Author [...] since last visit. Soreness from fall in [place]. Pt. will see physician soon regarding her [...] rail Functional Gait Asse (more content not included)...[facility] 06-07-2024 History of Present illness Narrative* Blossom [...] since last visit. Soreness from fall in [place]. Pt. will see physician soon regarding her [...] Gait belt utilized during session for safety. Self-Residential Management: 1: discussed holding chart due to [...] 1052 Blossom White PT documented in this encounterAvita Health System [facility]02-24-2025 Telephone encounter Note * Telephone Encounter - Areli Moore MA - 05/31/2024 1:16 PM EST Pt notified of results via Verificot. Arlei Moore Ma [facility]02-24-2025 Miscellaneous Notes* Telephone Encounter - Areli Moore MA - 05/31/2024 1:16 PM EST Pt notified of results via natasha. Areli Moore Ma * Telephone Encounter - [...] in the sacroiliac joints. documented in this encounterAvita Health System [facility]02-24-2025 Telephone encounter Note * Telephone Encounter - Areli Moore MA - 05/31/2024 1:16 PM EST ----- Message from Belkys Mcintyre sent at 05/31/2024 8:42 AM EST ----- Nothing acute on x-ray. Some arthritis of the lumbar spine and mild arthritis in the sacroiliac joints. [facility] Progress note* Result Encounter Note - Belkys Mcintyre APRN.CNP - 05/31/2024 8:42 AM EST Nothing acute on x-ray. Some arthritis of the lumbar spine and mild arthritis in the sacroiliac joints. [facility]02-[facility] Progress note* Result Encounter Note - Belkys Mcintyre APRN.CNP - 05/28/2024 4:42 PM EST Urine for microalbumin creatinine ratio has improved showing improved. History of diabetic nephropathy. Hemoglobin A1c 6.2%. Prediabetes is stable. Ionized calcium is slightly elevated but vitamin D level is therapeutic. Will monitor. All other labs look good. Cholesterol levels are great. [facility]02-[facility]-2025 Miscellaneous Notes* Result Encounter Note - Belkys Mcintyre APRN.CNP - 05/28/2024 4:42 PM EST Urine for microalbumin creatinine ratio has improved showing improved. History of diabetic nephropathy. Hemoglobin A1c 6.2%. Prediabetes is stable. Ionized calcium is slightly elevated but vitamin D level is therapeutic. Will monitor. All other labs look good. Cholesterol levels are great. documented in this encounterAvita Health [facility]02-20-2025 History of Present illness Narrative* Steve Riggs RT(R) - 05/27/2024 9:50 AM EST Radiology [...] PATIENT PRESENTS WITH AN IMPLANTABLE OR ATTACHED INSPECTOR OPTICAL INSTRUMENT: No RADIOLOGY DEPARTMENT: General X-ray: Exam(s) Completed: Pelvis X-Ray: Pelvis with Hip Right PERIPHERAL IV DATA: Not applicable SIGNED BY: RT Gwen(R) May 27, 2024 9:31 AM documented in this encounterAvita Health System [facility]02-20-2025 NoteHNO ID: [id number] Author: STEVE RIGGS RT(R) Service: Radiology Author [...] PATIENT PRESENTS WITH AN IMPLANTABLE OR ATTACHED INSPECTOR OPTICAL INSTRUMENT: No RADIOLOGY DEPARTMENT: General X-ray: Exam(s) Completed: Pelvis X-Ray: Pelvis with Hip Right PERIPHERAL IV DATA: Not applicable SIGNED BY: RT Gwen(R) May 27, 2024 9:31 [facility]02-20-2025 Instructions* Patient Instructions* Belkys Mcintyre APRN.CNP - 05/27/2024 9:07 AM EST - CLOTRIMAZOLE-BETAMETHASONE 1 %-0.05 % LOTION 2 x day for 14 days to right breast. Send message in2 weeks. If not resolved completely, send to breast care center - XR HIP GENERAL 3V PELV/AP/LAT RIGHT - Get Labs today documented in this encounterAvita Health System [facility]02-20-2025 NoteHNO ID: [id number] Author: BELKYS MCINTYRE APRN.CNP Service: ? Author [...] HISTORY Diagnosis Date Abnormal EKG afib, inf [place] age undetermined Atrial fibrillation (HCC) Breast cancer [...] complication, without long-term current use of insulin ([facility]) 04/11/2016 PAST SURGICAL HISTORY Procedure Laterality Date [...] 1 tablet by mouth once daily. vit C,T-Ln-venuj-lutein-zeaxan (PRESERVISION AREDS-2) 250-90-40-1 mg Take 1 capsule [...] Mother Hypertension Mother Hypertension Father Heart Father [place] Diabetes Father Kidney Disease Sister Heart disease [...] kg (205 lb) Sp (more content not included)...[facility]02-20-2025 History of Present illness Narrative* Belkys Mcintyre APRN.[facility] - 05/27/2024 8:41 AM EST This [...] HISTORY Diagnosis Date Abnormal EKG afib, inf GA age undetermined Atrial fibrillation (HCC) Breast cancer [...] complication, without long-term current use of insulin ([facility]) 04/11/2016 PAST SURGICAL HISTORY Procedure Laterality Date [...] 1 tablet by mouth once daily. vit C,I-Ig-lword-lutein-zeaxan (PRESERVISION AREDS-2) 250-90-40-1 mg Take 1 capsule [...] Mother Hypertension Mother Hypertension Father Heart Father [place] Diabetes Father Kidney Disease Sister Heart disease [...] as needed for worsening/no improvement. Belkys Mcintyre APRN.LAUNDRY MACHINE MECHANIC documented in this encounterAvita Health System [facility]02-19-2025 NoteHNO ID: [id number] Author: BLOSSOM WHITE PT Service: ? Author [...] and function . Patient education as noted. Self-Residential Management: 1: discussed the importance of coming [...] Session Stop Time : 1751 Blossom White, [facility]02-19-2025 History of Present illness Narrative* Blossom [...] and function . Patient education as noted. Self-Residential Management: 1: discussed the importance of coming [...] 1711 Session Stop Time : 1751 Blossom White PT documented in this encounterAvita Health [facility]02-17-2025 Telephone encounter Note * Telephone Encounter - Belkys Mcintyre APRN.CNP - 05/24/2024 1:52 PM EST Probably should be evaluated to make sure you are ok. [facility]02-17-2025 Miscellaneous Notes* Telephone Encounter - Belkys Mcintyre APRN.CNP - 05/24/2024 1:52 PM EST Probably should be evaluated to make sure you are ok. documented in this encounterAvita Health System [facility]02-17-2025 NoteHNO ID: [id number] Author: BLOSSOM WHITE, PT Service: ? Author [...] Lumbar Extension: Minimal limitation Lumbar R Side [place]: Normal Lumbar L Side [place]: Normal Lumbar R Side-Bend: Produces, Moderate limitation Lumbar L Side-Bend: Produces, Major limitation TREATMENT: Therapeutic Exercise: 1: Teleran Technologiesfit stepper seat 12, level 2, 1:1 throughout, [...] deviations identified in the objective section above. Self-Residential Management: 1: advised pt. to see physician [...] Time : 924 Session Stop Time : 100 Blossom White, [facility]02-17-2025 History of Present illness Narrative* Blossom White, PT - 05/24/2024 9:50 AM EST Episode [...] Lumbar Extension: Minimal limitation Lumbar R Side [place]: Normal Lumbar L Side [place]: Normal Lumbar R Side-Bend: Produces, Moderate limitation [...] deviations identified in the objective section above. Self-Residential Management: 1: advised pt. to see physician [...] Time : 924 Session Stop Time : 1004 Blossom White PT documented in this encounterAvita Health [facility]02-03-2025 NoteHNO ID: [id number] Author: BLOSSOM WHITE PT Service: ? Author [...] FOR NEXT VISIT: Pt will be in [place] for 1 week, will return to therapy. [...] Session Stop Time : 1044 Tanya Meza, [facility] Blossom White, [facility]02-03-2025 History of Present illness Narrative* Blossom [...] 1000 Session Stop Time : 1044 RONIT Espinoza PT documented in this encounterAvita Health [facility]01-31-2025 History of Present illness Narrative* Blossom White PT - 05/07/2024 10:19 AM EST Program_[email or web address]:[email or web address] Access Code: [email or web address] URL: [email or web address] Date: 05-07-2024 Prepared By: Blossom White Program [...] 3 sets - 10 reps * Blossom White PT - 05/07/2024 9:59 AM EST Images [...] Patient to be seen for Neuromuscular re-education (97305), Therapeutic exercise (30965), Manual therapy (03764), Therapeutic activities (24253), Self-alf management (51111), Gait Training (20430) PLAN FOR NEXT VISIT: Pt. leaves for [place] for a week on Friday and will [...] and function . Patient education as noted. Self-Residential Management: 1: discussed purpose of lumbar flexion [...] 1039 Blossom White PT documented in this encounterAvita Health System [facility]01-31-2025 NoteHNO ID: [id number] Author: BLOSSOM WHITE, PT Service: ? Author [...] Patient to be seen for Neuromuscular re-education (12632), Therapeutic exercise (46039), Manual therapy (77650), Therapeutic activities (31263), Self-alf management (96948), Gait Training (64439) PLAN FOR NEXT VISIT: Pt. leaves for [place] for a week on Friday and will [...] staggers but recovers, ca (more content not included)...[facility]01-27-2025 NoteHNO ID: [id number] Author: BLOSSOM WHITE, PT Service: ? Author [...] and gait belt. Patient education as noted. Self-Residential Management: 1: discussed how the BUE's could [...] Session Stop Time : 923 Blossom White, [facility]01-27-2025 History of Present illness Narrative* Blossom [...] and gait belt. Patient education as noted. Self-Residential Management: 1: discussed how the BUE's could [...] 923 Blossom White PT documented in this encounterAvita Health System [facility]01-24-2025 NoteHNO ID: [id number] Author: REGGIE NELSON PT Service: ? Author [...] 1014 Session Stop Time : 1055 RONIT Espinoza, [facility]01-24-2025 History of Present illness Narrative* Reggie [...] 1055 RONIT Espinoza PT documented in this encounterAvita Health System [facility]01-20-2025 NoteHNO ID: [id number] Author: BLOSSOM WHITE PT Service: ? Author [...] with an (*). Patient education as noted. Self-Residential Management: Skilled Intervention: Skilled judgment in the [...] Session Stop Time : 1349 Blossom White, [facility]01-20-2025 History of Present illness Narrative* Blossom [...] LEVEL OF FUNCTION: TREATMENT: Therapeutic Exercise: 1: [employer] stepper seat 15, level 2, 1:1 throughout, [...] with an (*). Patient education as noted. Self-Residential Management: Skilled Intervention: Skilled judgment in the [...] 1349 Blossom White PT documented in this encounterAvita Health System [facility]01-16-2025 Telephone encounter Note * Telephone Encounter - Stoney Lopez - 04/22/2024 10:53 AM ESTSummary: Picked up the phone I called the patient, the patient picked up and successfully rescheduled her appointment. The patient rescheduled her appointment from 07/02/2024 @ 1:00 pm to 07/09/2024 @ 2:[address] Abiola [facility]. Telephone encounter was left. [facility]01-16-2025 Miscellaneous Notes* Telephone Encounter - Stoney Lopez - 04/22/2024 10:53 AM ESTSummary: Picked up the phone I called the patient, the patient picked up and successfully rescheduled her appointment. The patient rescheduled her appointment from 07/02/2024 @ 1:00 pm to 07/09/2024 @ 2:[address]ola [facility]. Telephone encounter was left. documented in this encounterAvita Health System [facility]01-13-2025 Instructions* Patient Instructions* Belkys Mcintyre APRN.CNP - 04/19/2024 2:15 PM EST - Follow up in June as scheduled - Keflex (cephalexin) 500 mg 2 x day for 5 days documented in this encounterAvita Health System [facility] Hospital01-13-2025 NoteHNO ID: [id number] Author: BELKYS MCINTYRE APRN.CNP Service: ? Author [...] HISTORY Diagnosis Date Abnormal EKG afib, inf [place] age undetermined Atrial fibrillation (HCC) Breast cancer [...] complication, without long-term current use of insulin ([facility]) 04/11/2016 PAST SURGICAL HISTORY Procedure Laterality Date [...] 1 tablet by mouth once daily. vit C,Z-Al-lyaoh-lutein-zeaxan (PRESERVISION AREDS-2) 250-90-40-1 mg Take 1 capsule [...] Mother Hypertension Mother Hypertension Father Heart Father [place] Diabetes Father Kidney Disease Sister Heart disease [...] Normocephalic. Cardiovascular: Rate and (more content not included)...[facility]01-13-2025 History of Present illness Narrative* Belkys Mcintyre APRN.LAUNDRY MACHINE MECHANIC - 04/19/2024 2:03 PM EST This is [...] HISTORY Diagnosis Date Abnormal EKG afib, inf [place] age undetermined Atrial fibrillation (HCC) Breast cancer [...] complication, without long-term current use of insulin ([facility]) 04/11/2016 PAST SURGICAL HISTORY Procedure Laterality Date [...] 1 tablet by mouth once daily. vit C,K-Nf-ppcfz-lutein-zeaxan (PRESERVISION AREDS-2) 250-90-40-1 mg Take 1 capsule [...] Mother Hypertension Mother Hypertension Father Heart Father [place] Diabetes Father Kidney Disease Sister Heart disease [...] needed for worsening/no improvement. Belkys Mcintyre APRN.CNP documented in this encounterAvita Health System [facility]01-13-2025 NoteHNO ID: [id number] Author: BLOSSOM WHITE PT Service: ? Author [...] herself up. Pt. reports 3 falls since gi. She has stopped taking gabapentin about a [...] Gait belt utilized during session for safety. Self-Residential Management: 1: advised using a long handled pooper cow tester to avoid bending forward to last picker after her dog. supervisor riprap placing after the dog when the dog is [...] activities of daily ondina (more content not included)...[facility]01-13-2025 History of Present illness Narrative* Blossom White, [...] Gait belt utilized during session for safety. Self-Residential Management: 1: advised using a long handled pooper cow tester to avoid bending forward to last picker after her dog. supervisor riprap placing after the dog when the dog is [...] 924 Blossom White PT documented in this encounterAvita Health [facility]01-09-2025 Telephone encounter Note * Telephone Encounter - Belkys Mcintyre APRN.CNP - 04/15/2024 10:02 AM EST Absolutely. It was only to help. My gosh, I am sorry for all that. [facility]01-09-2025 Miscellaneous Notes* Telephone Encounter - Belkys Mcintyre APRN.CNP - 04/15/2024 10:02 AM EST Absolutely. It was only to help. My gosh, I am sorry for all that. documented in this encounterAvita Health System [facility] Hospital12-30-2024 History of Present illness Narrative* Anuj Navarro MD - 04/05/2024 2:40 PM EST Images from the original note were not included. [facility] Cardiology ([facility]) [address] [facility] [address] OUTPATIENT VISIT DATE 04/05/2024 PRIMARY CARE PHYSICIAN: Chip Arreola MD [address] [place] [address] HISTORY OF PRESENT ILLNESS: Ms. Carmichael is [...] HISTORY Diagnosis Date Abnormal EKG afib, inf [place] age undetermined Atrial fibrillation (HCC) Breast cancer (HCC) 03/2018 left breast Closed fracture of right distal radius 09/10/2021 Congestive heart failure ([facility]) 09/24/2018 Epistaxis balloon out osteo History of colonoscopy [address] Stoney Hernandez , normal HTN (hypertension) Hyperglycemia Knee pain, chronic Lt Migraines stopped when she retired Normal cardiac stress test 2004 Dr. Romero Osteoarthritis Seasonal allergies Type 2 diabetes mellitus without complication, without long-term current use of insulin ([facility]) 04/11/2016 PAST SURGICAL HISTORY Procedure Laterality Date [...] Mother Hypertension Mother Hypertension Father Heart Father [place] Diabetes Father Kidney Disease Sister Heart disease [...] mouth once daily.^Disp: 90 tablet^Rfl: 3 vit C,I-Jz-jfufq-lutein-zeaxan (PRESERVISION AREDS-2) 250-90-40-1 mg^Take 1 capsule by [...] detail. Anuj Navarro MD documented in this encounterAvita Health System [facility] Hospital12-30-2024 NoteHNO ID: [id number] Author: ANUJ NAVARRO MD Service: ? Author Type: Physician Type: Progress Notes Filed: 04/05/2024 14:49 Note Text: [facility] Cardiology ([place] [facility] [address] [facility] [address] OUTPATIENT VISIT DATE 04/05/2024 PRIMARY CARE PHYSICIAN: Chip Arreola MD [address] [place] [address] HISTORY OF PRESENT ILLNESS: Ms. Carmichael is [...] HISTORY Diagnosis Date Abnormal EKG afib, inf [place] age undetermined Atrial fibrillation (HCC) Breast cancer ([facility]) 03/2018 left breast Closed fracture of right distal radius 09/10/2021 Congestive heart failure ([facility]) 09/24/2018 Epistaxis balloon out osteo History of colonoscopy [address] Stoney Hernandez , normal HTN (hypertension) Hyperglycemia Knee pain, chronic Lt Migraines stopped when she retired Normal cardiac stress test 2004 Dr. Romero Osteoarthritis Seasonal allergies Type 2 diabetes mellitus without complication, without long-term current use of insulin ([facility]) 04/11/2016 PAST SURGICAL HISTORY Procedure Laterality Date [...] Mother Hypertension Mother Hypertension Father Heart Father GA Diabetes Father Kidney Disease Sister Heart disease [...] mouth once daily.Disp: 90 tabletRfl: 3 vit C,Y-Wl-gcvbd-lutein-zeaxan (PRESERVISION AREDS-2) 250-90-40-1 mgTake 1 capsule by mouth twice daily with meals.Disp: Rfl: Cholecalciferol, Vitamin D3, 50 mcg (more content not included)...[facility]12-23-2024 History of Present illness Narrative* Blossom White, PT - 03/29/2024 11:35 AM EST Program_ID:[id number] Access Code: [email or web address] URL: [email or web address] Date: 03-29-2024 Prepared By: Blossom White Program [...] Planned: 6 Planned Treatment Interventions: Neuromuscular re-education (24786), Therapeutic exercise (53705), Manual therapy (59939), Therapeutic activities (12886), Self- alf management (72946), Gait Training (31766) PLAN FOR NEXT VISIT: FGA. Assess symptom [...] Normal Lumbar Extension: Produces Lumbar R Side [place]: Normal Lumbar L Side [place]: Decreased pain, Moderate limitation Lumbar R Side-Bend: [...] States/Identifies, Return Demonstration TREATMENT: PT Treatment Interventions: Self-Residential Management, Therapeutic Exercise Evaluation Therapeutic Exercise: 1: *Access Code: [email or web address] URL: [email or web address] Date: 03/29/2024 Prepared by: Blossom Corrales Exercises [...] and function . Patient education as noted. Self-Residential Management: 1: discussed directional preference 2: advised [...] 1147 Blossom White PT documented in this encounterAv[facility]24 NoteHNO ID: [id number] Author: BLOSSOM WHITE PT Service: ? Author [...] Planned: 6 Planned Treatment Interventions: Neuromuscular re-education (21533), Therapeutic exercise (87859), Manual therapy (20502), Therapeutic activities (35080), Self-alf management (15930), Gait Training (23473) PLAN FOR NEXT VISIT: FGA. Assess symptom [...] dysfunction) 36 (moderate d (more content not included)...[facility]12-19-2024 Telephone encounter Note* Telephone Encounter - Divya [...] and advise. APPT 04/05 Divya José MA [facility]12-19-2024 Miscellaneous Notes* Telephone Encounter - Divya Joés MA - 03/25/2024 9:11 AM EST Patient [...] 04/05 Divya José MA documented in this encounterAvita [facility]12-03-2024 History of Present illness Narrative* Richard [...] PATIENT PRESENTS WITH AN IMPLANTABLE OR ATTACHED INSPECTOR OPTICAL INSTRUMENT: No RADIOLOGY DEPARTMENT: General X-ray: Exam(s) Completed: Spine X-Ray(s): Thoracic and Lumbar AP / LAT / L5-S1 PERIPHERAL IV DATA: Not applicable SIGNED BY: RT Francie(Charlie) March 09, 2024 11:46 AM documented in this encounterAvita Health [facility]12-03-2024 NoteHNO ID: [id number] Author: RICHARD BARRIOS RT(R) Service: ? Author Type: Asset Analyst Type: Progress Notes Filed: 03/09/2024 12:06 Note [...] PATIENT PRESENTS WITH AN IMPLANTABLE OR ATTACHED INSPECTOR OPTICAL INSTRUMENT: No RADIOLOGY DEPARTMENT: General X-ray: Exam(s) Completed: Spine X-Ray(s): Thoracic and Lumbar AP / LAT / L5-S1 PERIPHERAL IV DATA: Not applicable SIGNED BY: RT Francie(R) March 09, 2024 11:46 [facility]12-03-2024 Instructions* Patient Instructions* Belkys Mcintyre APRN.LAUNDRY MACHINE MECHANIC - 03/09/2024 10:52 AM EST 1) Get Xray thoracic and lumbar 2) Consult physical therapy 3) Get urinalysis (collect upstairs) 4) Gabapentin 100 mg 3 x day 5) Keep appt. In June documented in this encounterAvita Health [facility]12-03-2024 NoteHNO ID: [id number] Author: BELKYS MCINTYRE APRN.ANJEL Service: ? Author [...] to brush hair. Saw a neurologist in [place] 3-5 years ago. The tremors really bother her. Drinks caffeine in diet pepsi. Occ drinks regular diet pepsi. PAST MEDICAL HISTORY: PAST MEDICAL HISTORY Diagnosis Date Abnormal EKG afib, inf GA age undetermined Atrial fibrillation (HCC) Breast cancer [...] tablet by mouth daily with dinner. vit C,J-Pi-kybwo-lutein-zeaxan (PRESERVISION AREDS-2) 250-90-40-1 mg Take 1 capsule [...] Mother Hypertension Mother Hypertension Father Heart Father GA Diabetes Father Kidney Disease Sister Heart disease [...] tobacco: Never Vaping Use (more content not included)...[facility]12-03-2024 History of Present illness Narrative* Belkys Mcintyre APRN.LAUNDRY MACHINE MECHANIC - 03/09/2024 10:27 AM EST This is [...] hands to brush hair. [place] neurologist in [place] 3-5 years ago. The tremors really bother her. Drinks caffeine in diet pepsi. Occ drinks regular diet pepsi. PAST MEDICAL HISTORY: PAST MEDICAL HISTORY Diagnosis Date Abnormal EKG afib, inf GA age undetermined Atrial fibrillation (HCC) Breast cancer [...] complication, without long-term current use of insulin ([facility]) 04/11/2016 PAST SURGICAL HISTORY Procedure Laterality Date [...] tablet by mouth daily with dinner. vit C,P-Ye-jlsrw-lutein-zeaxan (PRESERVISION AREDS-2) 250-90-40-1 mg Take 1 capsule [...] Mother Hypertension Mother Hypertension Father Heart Father GA Diabetes Father Kidney Disease Sister Heart disease [...] as needed for worsening/no improvement. Belkys Mcintyre APRN.LAUNDRY MACHINE MECHANIC documented in this encounterAvita Health [facility]09-20-2024 Telephone encounter Note * Telephone Encounter - Areli Moore MA - 12/26/2023 12:30 PM EDT Pt notified. Areli Moore MA [facility]09-20-2024 Miscellaneous Notes* Telephone Encounter - Areli Moore MA - 12/26/2023 12:30 PM EDT Pt notified. Areli Moore MA * Telephone Encounter - Chip Arreola MD - 12/26/2023 12:13 PM EDT sent * Telephone Encounter - Angy Phipps RN - 12/26/2023 11:56 AM EDT Patient calls to report that she has a dental appointment/procedure on Friday and needs [id number] min prior to the appointment. Pended previous prescription for review. Please call patient at [phone] if provider is willing to order prescription. Angy Phipps RN documented in this encounterAvita [facility]09-20-2024 Telephone encounter Note * Telephone Encounter - Chip Arreola MD - 12/26/2023 12:13 PM EDT sent [facility]09-20-2024 Telephone encounter Note* Telephone Encounter - Angy Phipps RN - 12/26/2023 11:56 AM EDT Patient calls to report that she has a dental appointment/procedure on Friday and needs [id number] min prior to the appointment. Pended previous prescription for review. Please call patient at [phone] if provider is willing to order prescription. Angy Phipps RN [facility]08-22-2024 Instructions* Patient Instructions* Belkys Mcintyre APRN.CNP - 11/27/2023 9:44 AM EDT 1) Follow up in 6 months 2) Will get labs same day after our visit documented in this encounterAvita Health System [facility]08-22-2024 History of Present illness Narrative* Belkys Mcintyre APRN.LAUNDRY MACHINE MECHANIC - 11/27/2023 9:14 AM EDT Chief Reason [...] General (Family Medicine) Inocente Romero MD as Aircraft Engine Specialist (Cardiology) Antonio Cagle MD, PhD as Primary Staff Physician (Cardiology) David Galo MD as Consulting (Infectious Diseases) Dayanna Lewis MD as Consulting (Orthopedics) Chip Arreola MD as Home Care Provider (Family Medicine) Dayanna Lewis MD as Referring (Orthopedics) Bridgett Guzman RN as Hat And Cap Opener (Post Acute Care) Concerns today: Seeing eye doctor for infection left eye HPI Has an ulcer in left eye- using drops in left eye Getting better Active Problems ACTIVE PROBLEM LIST Intermediate Stage 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 Macular Degeneration of Both Eyes - 05/02/2023 Pseudophakia - 05/02/2023 Posterior Vitreous Detachment of Both Eyes - 05/02/2023 H/O Mitral Valve Disease - 02/24/2023 Mcc Current Use of Anticoagulant Therapy - 04/15/2022 [...] Heart Failure (Hcc) - 09/24/2018 Pulmonary Htn (Hcc) - 09/24/2018 Malignant 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 Started asa a day. Aware of risks. Sees [facility] cardiology in [place] Morbid Obesity With Bmi of 40.0-44.9, Adult [...] No date: Abnormal EKG Comment: afib, inf GA age undetermined No date: Atrial fibrillation (HCC) 03/2018: Breast cancer ([facility]) Comment: left breast 09/10/2021: Closed fracture of right distal radius 09/24/2018: Congestive heart failure (HCC) No date: Epistaxis Comment: balloon out osteo 2003: History of colonoscopy Comment: Per Dr. Stoney Hernandez , normal No date: HTN (hypertension) No date: Hyperglycemia No date: Knee pain, chronic Comment: Lt No date: Migraines Comment: stopped when she retired 2004: Normal cardiac stress test Comment: Dr. Romero No date: Osteoarthritis No date: Seasonal allergies 04/11/2016: Type 2 diabetes mellitus without complication, without long-term current use of insulin ([facility]) PAST SURGICAL HISTORY 2011: ARTHRP KNE CONDYLE&PLATU [...] daily with dinner. 90 tablet 3 vit C,J-Fo-hkcla-lutein-zeaxan (PRESERVISION AREDS-2) 250-90-40-1 mg Take 1 capsule [...] kidney disease, unspecified CKD stage, unspecified whether roasterman insulin use (HCC) - ICD9: 250.40, 585.9, [...] as needed for worsening/no improvement. Belkys Mcintyre APRN.ANJEL Follow Up Plans: 6 months documented in this encounterAvita Health [facility]08-08-2024 Note* Letter - Coordinator, Mammography - 11/13/2023 9:37 PM EDT November 14, 2023 PID: [id number] Kesha Carmichael [address] [place] [address] Dear Ms. Carmichael, We are pleased to [...] report will be kept on [facility] at [facility] as part of your permanent medical record and are available for your continuing care. Thank you for allowing us to help in meeting your health care needs. Sincerely, Dr. Oquendo Interpreting Radiologist [facility] (Normal over 40) [facility]08-08-2024 Miscellaneous Notes* Letter - Coordinator, Mammography - 11/13/2023 9:37 PM EDT November 14, 2023 PID: [id number] Kesha VeenaAgustín Jany [address] [place] [address] Dear Ms. Carmichael, We are pleased to [...] report will be [facility] as part of your permanent medical record and are available for your continuing care. Thank you for allowing us to help in meeting your health care needs. Sincerely, Dr. Oquendo Interpreting Radiologist [facility] (Normal over 40) documented in this encounterAvita Health [facility]08-07-2024 History of Present illness Narrative* Abran [...] PATIENT PRESENTS WITH AN IMPLANTABLE OR ATTACHED INSPECTOR OPTICAL INSTRUMENT: No RADIOLOGY DEPARTMENT: Mammography PERIPHERAL IV DATA: Not applicable SIGNED BY: Santos HaywoodThinknum Ward November 12, 2023 1:35 PM documented in this encounterAvita Health System [facility]07-26-2024 NoteDate of Procedure 10/31/2023. Asset Analyst Information Analyst: LV. Interpretation Right Eye Hyperfluorescence, Hypofluorescence. Left Eye Hyperfluorescence, Hypofluorescence.[id number] NoteDate of Procedure 10/31/2023. Asset Analyst Information Analyst: LV. Interpretation Right Eye Findings include Drusen; Negative for Intraretinal fluid, Subretinal fluid. Left Eye Findings include Drusen; Negative for Intraretinal fluid, Subretinal fluid.[id number] History of Present illness Narrative* Abiola Weaver MD - 10/31/2023 12:30 PM EDT HPI: Patient presents for 6 mos f/u appt. Occasionally sees wavy lines with difficulty reading but this has been about the same. Stable floaters, no consistent flashes. Wondering if melatonin will help with AMD. Impression: 78 year old Female PAST MEDICAL HISTORY Diagnosis Date Abnormal EKG afib, inf GA age undetermined Atrial fibrillation (HCC) Breast cancer ([facility]) 03/2018 left breast Closed fracture of right distal radius 09/10/2021 Congestive heart failure ([facility]) 09/24/2018 Epistaxis balloon out osteo History of colonoscopy [address] Stoney Hernandez , normal HTN (hypertension) Hyperglycemia Knee pain, chronic Lt Migraines stopped when she retired Normal cardiac stress test 2004 Dr. Romero Osteoarthritis Seasonal allergies Type 2 diabetes mellitus without complication, without long-term current use of insulin ([facility]) 04/11/2016 #. Intermediate nonexudative AMD, both eyes [...] PhD Vitreoretinal Surgery & Ocular Inflammatory Diseases [facility] documented in this encounterAvita Health [facility]05-20-2024 History of Present illness Narrative* Anuj Navarro MD - 08/25/2023 11:00 AM EDT Images from the original note were not included. [facility] Cardiology ([facility]) [address] [facility] [address] OUTPATIENT VISIT DATE 08/25/2023 PRIMARY CARE PHYSICIAN: Chip Arreola MD [address] [place] [address] HISTORY OF PRESENT ILLNESS: Ms. Carmichael is [...] HISTORY Diagnosis Date Abnormal EKG afib, inf GA age undetermined Atrial fibrillation (HCC) Breast cancer [...] complication, without long-term current use of insulin ([facility]) 04/11/2016 PAST SURGICAL HISTORY Procedure Laterality Date [...] Mother Hypertension Mother Hypertension Father Heart Father GA Diabetes Father Kidney Disease Sister Heart disease [...] daily with dinner.^Disp: 90 tablet^Rfl: 3 vit C,F-Nl-pacmx-lutein-zeaxan (PRESERVISION AREDS-2) 250-90-40-1 mg^Take 1 capsule by [...] reduction Anuj Navarro MD documented in this encounterAvita Health [facility]03-22-2024 Miscellaneous Notes* Telephone Encounter - Vioal YbarraVIJAY - 06/27/2023 1:15 PM EDT Patient [...] use of right arm Lisinopril Cough (home) [phone] (cell) Last Office Visit Date: 03/12/2023 Last [facility] Health Visit: Visit date not found Future Appointment: Visit date not found The patients preferred pharmacy has been captured for this encounter? yes Request is for script(s) to be escript to pharmacy. Viola Ybarra LPN documented in this encounterAvita Health System [facility]03-14-2024 Miscellaneous Notes* Telephone Encounter - Belkys [...] is not taking the potassium rx, her Bond Runner told her potassium thickens her blood and [...] local pharmacy. * Telephone Encounter - Mathew Guzmán, RN - 06/19/2023 9:21 AM EDT Phoned [...] and let me know documented in this encounterAvita Health [facility]12-06-2023 History of Present illness Narrative* Shannan [...] 12, 2023 12:15 PM documented in this encounterAvita Health System [facility]12-06-2023 History of Present illness Narrative* Chip [...] 1 tablet by mouth once daily. vit C,M-Gz-dbndc-lutein-zeaxan (PRESERVISION AREDS-2) 250-90-40-1 mg Take 1 capsule [...] HISTORY Diagnosis Date Abnormal EKG afib, inf [place] age undetermined Atrial fibrillation (HCC) Breast cancer (HCC) 03/2018 left breast Closed fracture of right distal radius 09/10/2021 Congestive heart failure ([facility]) 09/24/2018 Epistaxis balloon out osteo History of colonoscopy [address] Stoney Hernandez , normal HTN (hypertension) Hyperglycemia Knee pain, chronic Lt Migraines stopped when she retired Normal cardiac stress test 2004 Dr. Romero Osteoarthritis Seasonal allergies Type 2 diabetes mellitus without complication, without long-term current use of insulin ([facility]) 04/11/2016 PAST SURGICAL HISTORY Procedure Laterality Date [...] Mother Hypertension Mother Hypertension Father Heart Father GA Diabetes Father Kidney Disease Sister Heart disease [...] -stable. Chip Arreola MD documented in this encounterAvita Health [facility]11-29-2023 Miscellaneous Notes* Telephone Encounter - Alvaro [...] accordingly. Alvaro Arechiga LPN documented in this encounterAvita Health System [facility]11-20-2023 Instructions* Patient Instructions* Anuj Navarro MD - 02/24/2023 10:34 AM EST We will repeat an echocardiogram in July documented in this encounterAvita Health System [facility]11-20-2023 History of Present illness Narrative* Anuj Navarro MD - 02/24/2023 10:20 AM EST Images from the original note were not included. [facility] Cardiology ([facility]) [address] [facility] [address] OUTPATIENT VISIT DATE 02/24/2023 PRIMARY CARE PHYSICIAN: Chip Arreola MD [address] [facility] [place] [address] HISTORY OF PRESENT ILLNESS: Ms. Carmichael is [...] HISTORY Diagnosis Date Abnormal EKG afib, inf GA age undetermined Atrial fibrillation (HCC) Breast cancer (HCC) 03/2018 left breast Closed fracture of right distal radius 09/10/2021 Congestive heart failure ([facility]) 09/24/2018 Epistaxis balloon out osteo History of colonoscopy [address] Stoney Hernandez , normal HTN (hypertension) Hyperglycemia Knee pain, chronic Lt Migraines stopped when she retired Normal cardiac stress test 2004 Dr. Romero Osteoarthritis Seasonal allergies Type 2 diabetes mellitus without complication, without long-term current use of insulin ([facility]) 04/11/2016 PAST SURGICAL HISTORY Procedure Laterality Date [...] Mother Hypertension Mother Hypertension Father Heart Father GA Diabetes Father Kidney Disease Sister Heart disease [...] tablet by mouth daily with dinner. vit C,B-Qy-quxlc-lutein-zeaxan (PRESERVISION AREDS-2) 250-90-40-1 mg Take 1 capsule [...] SYRINGE Anuj Navarro MD documented in this encounterAvita Health [facility]08-04-2023 History of Present illness Narrative* Ree [...] 08, 2022 2:22 PM documented in this encounterAvita Health System [facility]02-15-2023 Miscellaneous Notes* Telephone Encounter - Mathew [...] range. Marybeth Zaidi APRN.CNP documented in this encounterAvita Health System [facility]02-09-2023 History of Present illness Narrative* RT Favio(Charlie) - 05/16/2022 2:40 PM EST Radiology Service Progress Note PATIENT NAME: Kseha Carmichael DATE OF SERVICE: May 16, 2022 [...] 16, 2022 12:20 PM documented in this encounterAvita Health System [facility]01-09-2023 History of Past illness Narrative* Problem [...] Overview: Added automatically from request for surgery [id number] Complete tear of right rotator cuff 06/24/2016 [...] of this encounter (statuses as of 04/15/2022) [facility] History of Past illness Narrative* Problem Noted Date Resolved Date Pulmonary arterial hypertension 04/15/2022 04/15/2022 Microalbuminuria 10/29/2021 12/24/2021 Closed fracture of right distal radius 2 04/15/2022 Acute pain of right wrist 08/22/20212022 Trochanteric bursitis of right hip 02/21/2021 04/15/2022 Pain 02/15/2021 04/15/2022 Right hip pain 02/15/2021 04/15/2022 Breast pain 12/03/2019 04/27/2021 Septic arthritis of shoulder, right 10/07/2018 10/23/2021 Chronic right shoulder pain 08/03/2018/12/2022 Breast cancer, left breast 02/24/201810/23 Overview: Added automatically from request for surgery [id number] Complete tear of right rotator cuff 06/24/2016 [...] of this encounter (statuses as of 05/14/2022) [facility] History of Past illness Narrative* Problem [...] Overview: Added automatically from request for surgery [id number] Complete tear of right rotator cuff 06/24/2016 [...] of this encounter (statuses as of 05/17/2022) [facility] History of Past illness Narrative* Problem [...] Overview: Added automatically from request for surgery [id number] Complete tear of right rotator cuff 06/24/2016 [...] of this encounter (statuses as of 05/22/2022) [facility] History of Past illness Narrative* Problem [...] Overview: Added automatically from request for surgery [id number] Complete tear of right rotator cuff 06/24/2016 [...] of this encounter (statuses as of 02/09/2023) [facility] History of Past illness Narrative* Problem [...] Overview: Added automatically from request for surgery [id number] Complete tear of right rotator cuff 06/24/2016 [...] of this encounter (statuses as of 02/24/2023) [facility] History of Past illness Narrative* Problem [...] Overview: Added automatically from request for surgery [id number] Complete tear of right rotator cuff 06/24/2016 [...] of this encounter (statuses as of 03/06/2023) [facility] History of Past illness Narrative* Problem [...] Overview: Added automatically from request for surgery [id number] Complete tear of right rotator cuff 06/24/2016 [...] of this encounter (statuses as of 03/12/2023) [facility] History of Past illness Narrative* Problem [...] Overview: Added automatically from request for surgery [id number] Complete tear of right rotator cuff 06/24/2016 [...] of this encounter (statuses as of 06/19/2023) [facility] History of Past illness Narrative* Problem [...] Overview: Added automatically from request for surgery [id number] Complete tear of right rotator cuff 06/24/2016 [...] of this encounter (statuses as of 06/27/2023) [facility] History of Present illness Narrative* Chip [...] Abs Lymph 1.00 - 4.00 k/uL 1.45 Eaton% % 7.5 Abs Eaton <0.87 k/uL 0.44 Eosin% % 4.6 Abs [...] tablet by mouth daily with dinner. vit C,A-Lr-gejpc-lutein-zeaxan (PRESERVISION AREDS-2) 250-90-40-1 mg Take 1 capsule [...] HISTORY Diagnosis Date Abnormal EKG afib, inf GA age undetermined Atrial fibrillation (HCC) Breast cancer [...] Mother Hypertension Mother Hypertension Father Heart Father [place] Diabetes Father Kidney Disease Sister Heart disease [...] V86.0, ICD10: C50.912, Z17.0 - mammogram. 12. snf current use of anticoagulant therapy - ICD9: V58.61, ICD10: Z79.01 - avoid nsaids. 13. Hypokalemia - ICD9: 276.8, ICD10: E87.6 - POTASSIUM BLD Chip Arreola RTO in six months and prn. documented in this encounterAvita Health [facility]01-08-2023 Instructions* Patient Instructions* Ginger Flores PA-C [...] development of fevers. Thank you for choosing [facility]. It has been a [...] your doctor if you can take an abfn-qvz-diosrog medicine. To prevent cellulitis in the future [...] Log into your personal health record on [email or web address] and enter X309 in the Education box to learn more about Cellulitis: Care Instructions. Current as of: November 06, 2021 Content Version: 13.5 [employer]. Care instructions adapted under license by your healthcare professional. If you have questions about a medical condition or this instruction, always ask your healthcare professional. [employer] disclaims any warranty or liability for your use of this information. documented in this [id number] History of Present illness Narrative* Ginger Flores PA-C - 04/14/2022 9:38 AM EST Images from the original note were not included. Patient Name: [facility] Location: [place] [address] Date Of : Date Of Visit: 1945 04/14/2022 MRN# Provider: [id number] Ginger Flores PA-C Chief Complaint Patient presents [...] (50 mg total) by mouth daily . pzqvzjae-uam-tuhbkrm sulfate 4.5 mg iron Tab Take 1 [...] development of fevers. Thank you for choosing [facility]. It has been a [...] your doctor if you can take an othu-nhy-jrlnbcd medicine. To prevent cellulitis in the future [...] Log into your personal health record on [email or web address] and enter X309 in the Education box to learn more about Cellulitis: Care Instructions. Current as of: November 06, 2021 Content Version: 13.5 [employer]. Care instructions adapted under license by your healthcare professional. If you have questions about a medical condition or this instruction, always ask your healthcare professional. [employer] disclaims any warranty or liability for your use of this information. documented in this [id number] Instructions* Patient Instructions* Anuj Navarro MD - 03/25/2022 10:38 AM EST We are increasing the Toprol (Metoprolol Succinate) to 50 mg daily. We are starting you on Xarelto 20 mg once per day documented in this encounterAvita [facility]-19-[facility] History of Present illness Narrative* Anuj Navarro MD - 03/25/2022 10:20 AM EST Images from the original note were not included. [facility] SE[facility] CARDIOLOGY Cardiology ([facility])) [address] [facility] [id number] OUTPATIENT VISIT DATE 03/25/2022 PRIMARY CARE PHYSICIAN: Chip Arreola MD [address] [facility] [place] [address] HISTORY OF PRESENT ILLNESS: Ms. Carmichael is [...] HISTORY Diagnosis Date Abnormal EKG afib, inf GA age undetermined Atrial fibrillation (HCC) Breast cancer (HCC) 03/2018 left breast Congestive heart failure (HCC) 09/24/2018 Epistaxis balloon out osteo History of colonoscopy [address] Stoney Hernandez , normal HTN (hypertension) Hyperglycemia Knee pain, chronic Lt Migraines stopped when she retired Normal cardiac stress test [address] Dr. Romreo Osteoarthritis Seasonal allergies Type 2 diabetes mellitus without complication, without long-term current use of insulin ([facility]) 04/11/2016 PAST SURGICAL HISTORY Procedure Laterality Date [...] Mother Hypertension Mother Hypertension Father Heart Father GA Diabetes Father Kidney Disease Sister Heart disease [...] mouth twice daily for 10 days. vit C,U-Aq-latdg-lutein-zeaxan (PRESERVISION AREDS-2) 250-90-40-1 mg Take 1 capsule [...] I27.20 Anuj Navarro MD documented in this encounterAvita [facility]10-17-2022 History of Present illness Narrative* Donald Massey MD - 01/21/2022 9:17 AM EDT Donald Massey MD Department of Orthopaedics Orthopaedics [address] [facility] [address] Dept: [phone] Dept January 21, 2022 CHIEF COMPLAINT: Established [...] THE RADIAL STYLOID PROCESS FRACTURE. DEGENERATIVE CHANGES. Senior Structural Engineer: PSCB Transcribe Date/Time: Jan 17 2022 3:48P Dictated by : HUGH MONSALVE MD This examination was interpreted and the report reviewed and electronically signed by: HUGH MONSALVE MD on Jan 17 2022 3:54PM EST Results-Findings * * *Final Report* * * DATE OF EXAM: Jan 17 2022 3:38PM [facility] 0266 - MRI WRIST WO IVCON [...] anxiety) Donald Massey MD documented in this encounterAvita Health [facility]09-19-2022 History of Present illness Narrative* Chip [...] HISTORY Diagnosis Date Abnormal EKG afib, inf GA age undetermined Atrial fibrillation (HCC) Breast cancer [...] Mother Hypertension Mother Hypertension Father Heart Father [place] Diabetes Father Kidney Disease Sister Heart disease [...] first of the year. documented in this encounterAvita [facility]09-01-2022 History of Present illness Narrative* Donald Massey MD - 12/06/2021 2:42 PM EDT Patient presents with: Right Wrist - Established Patient, Fracture: 15 wks 6 days post fx right radial styloid Donald Massey MD Department of Orthopaedics Orthopaedics [address] [place] [address] Dept: [phone] Dept December 06, 2021 CHIEF COMPLAINT: Established [...] for extra support. Xray today 12/06/21 at [facility]. AMB ROOMING INTAKE FLOWSHEET DATA Risk Screening Do you have concerns about personal safety or safety in the home?: No Pain Pain Level: 1 Pain Location: Wrist-Right Description: Aching Duration Amount of Time: (ongoing) Frequency: Intermittent Intervention/Comfort measure: Other: See comment (brace) ASSESSMENT: S59.352J Other closed intra-articular fracture of distal end [...] Healing fracture of the radial styloid/distal radius. Senior Structural Engineer: RG Transcribe Date/Time: Dec 07 2021 9:16A Dictated [...] anxiety) Donald Massey MD documented in this encounterAvita [facility]09-01-2022 History of Present illness Narrative* RT [...] 06, 2021 2:30 PM documented in this encounterAvita Health [facility]07-27-2022 Miscellaneous Notes* Telephone Encounter - Viola Shell - 10/31/2021 2:04 PM EDT Pt scheduled for follow up with Dr. Navarro @ [place] office. Viola Shell documented in this encounterAvita Health [facility]07-25-2022 History of Past illness Narrative* Problem Noted Date Resolved Date Microalbuminuria 10/29/2021 12/24/2021 Breast pain 12/03/2019 04/27/2021 Septic arthritis of shoulder, right 10/07/2018 10/23/2021 Breast cancer, left breast 02/24/201810/23 Overview: Added automatically from request for surgery [id number] Rotator cuff tear arthropathy, right 06/24/2016 10/23/2021 [...] of this encounter (statuses as of 12/24/2021) [facility] History of Past illness Narrative* Problem Noted Date Resolved Date Microalbuminuria 10/29/2021 12/24/2021 Breast pain 12/03/2019 04/27/2021 Septic arthritis of shoulder, right 10/07/2018 10/23/2021 Breast cancer, left breast 02/24/201810/23 Overview: Added automatically from request for surgery [id number] Rotator cuff tear arthropathy, right 06/24/2016 10/23/2021 [...] of this encounter (statuses as of 12/31/2021) [facility] History of Past illness Narrative* Problem Noted Date Resolved Date Microalbuminuria 10/29/2021 12/24/2021 Breast pain 12/03/2019 04/27/2021 Septic arthritis of shoulder, right 10/07/2018 10/23/2021 Breast cancer, left breast 02/24/201810/23 Overview: Added automatically from request for surgery [id number] Rotator cuff tear arthropathy, right 06/24/2016 10/23/2021 [...] of this encounter (statuses as of 01/21/2022) [facility] History of Past illness Narrative* Problem Noted Date Resolved Date Microalbuminuria 10/29/2021 12/24/2021 Breast pain 12/03/2019 04/27/2021 Septic arthritis of shoulder, right 10/07/2018 10/23/2021 Breast cancer, left breast 02/24/201810/23 Overview: Added automatically from request for surgery [id number] Rotator cuff tear arthropathy, right 06/24/2016 10/23/2021 [...] of this encounter (statuses as of 03/15/2022) [facility] History of Past illness Narrative* Problem Noted Date Resolved Date Microalbuminuria 10/29/2021 12/24/2021 Breast pain 12/03/2019 04/27/2021 Septic arthritis of shoulder, right 10/07/2018 10/23/2021 Breast cancer, left breast 02/24/201810/23 Overview: Added automatically from request for surgery [id number] Rotator cuff tear arthropathy, right 06/24/2016 10/23/2021 [...] of this encounter (statuses as of 03/25/2022) [facility] Miscellaneous Notes* Telephone Encounter - Sonali [...] current meds. Will follow. documented in this encounterAvita Health [facility]07-22-2022 History of Present illness Narrative* RT [...] 26, 2021 8:34 AM documented in this encounterAvita Health [facility]07-21-2022 History of Present illness Narrative* Chip [...] [facility] She will not [facility]. Understands risks [...] Abs Lymph 1.00 - 4.00 k/uL 1.22 Eaton% % 6.7 Abs Eaton <0.87 k/uL 0.30 Eosin% % 4.5 Abs [...] HISTORY Diagnosis Date Abnormal EKG afib, inf GA age undetermined Atrial fibrillation (HCC) Breast cancer [...] complication, without long-term current use of insulin ([facility]) 04/11/2016 PAST SURGICAL HISTORY Procedure Laterality Date [...] Mother Hypertension Mother Hypertension Father Heart Father [place] Diabetes Father Kidney Disease Sister Heart disease [...] V86.0, ICD10: C50.912, Z17.0 (primary diagnosis) - MAHAD SCREENING 2. Paroxysmal atrial fibrillation (HCC) - [...] six months and prn. documented in this encounterAvita Health [facility]07-12-2022 Miscellaneous Notes* Telephone Encounter - Katheryn [...] advise. Katheryn Villanueva LPN documented in this encounterAvita Health [facility]06-06-2022 History of Present illness Narrative* Karlene Troncoso PA-C - 09/10/2021 8:26 AM EDT Karlene Troncoso PA-C Department of Orthopaedics Orthopaedics [address] [place] [address] Dept: [phone] Dept September 10, 2021 CHIEF COMPLAINT: Established Patient and Fracture of the Right Wrist. ASSESSMENT: S52.573W Other closed intra-articular fracture of distal end [...] Stable appearance of a radial styloid fracture. Senior Structural Engineer: [facility]ER HOSPITALTato Transcribe Date/Time: Sep [...] Lisinopril This note was partially generated using [employer] voice recognition system, and there may be [...] New x-ray completed today. documented in this encounterAvita Health [facility]06-06-2022 History of Present illness Narrative* RT [...] 10, 2021 7:29 AM documented in this encounterAvita Health [facility]05-23-2022 History of Present illness Narrative* Olga Cochran Ma - 08/27/2021 2:10 PM EDT PT ASSESSMENT - CASTING ROOM Kesha presents for Application of brace. Applied Medium Long Thumb Spica Exos to Right hand. Patient electronically signed Omari BENDER. Patient has been instructed in Care and proper application of brace. Olga Cochran Ma * Donald Massey MD - 08/27/2021 1:19 PM EDT Donald Massey MD Department of Orthopaedics Orthopaedics [facility] [address] [facility] [address] Dept: [phone] Dept August 27, 2021 CHIEF COMPLAINT: New and Fracture of the Right Wrist and REF: Luana (xray 08-22-2021) HPI Pt. having no pain and taking nothing. Wearing splint and REINALDO wrap which she states is bothersome. She fell down steps on 08-17-2021 and had xray in Urgent Care on 08-22-21. Splint removed. Skin intact. AMB ROOMING INTAKE FLOWSHEET DATA ASSESSMENT: B22.602K Other closed intra-articular fracture of distal end [...] and physical exam findings may be helpful. Senior Structural Engineer: PSCB Transcribe Date/Time: Aug 22 2021 10:45A [...] HISTORY Diagnosis Date Abnormal EKG afib, inf GA age undetermined Atrial fibrillation (HCC) Breast cancer [...] complication, without long-term current use of insulin ([facility]) 04/11/2016 Past Surgical History: PAST SURGICAL HISTORY [...] Mother Hypertension Mother Hypertension Father Heart Father [place] Diabetes Father Kidney Disease Sister Heart disease [...] either mail or electronic medical record. Jaleel Craft [address] [facility] [address] Chip Arreloa MD [address] [facility] [address] Donald Massey MD documented in this encounterAvita Health [facility]05-18-2022 History of Present illness Narrative* Shannan Grimm RT(R) - 08/22/2021 10:40 AM EDT Radiology [...] IV DATA: Not applicable SIGNED BY: RT Berto(Charlie) August 22, 2021 10:35 AM documented in this encounterAvita Health [facility]05-18-2022 History of Present illness Narrative* Jaleel Craft MD - 08/22/2021 10:11 AM EDT Patient [...] HISTORY Diagnosis Date Abnormal EKG afib, inf GA age undetermined Atrial fibrillation (HCC) Breast cancer [...] complication, without long-term current use of insulin ([facility]) 04/11/2016 MEDICATIONS: metoprolol succinate ER (TOPROL XL) [...] schedule casting to allow proper healing. Jaleel Craft MD documented in this encounterAvita Health [facility]03-29-2022 Miscellaneous Notes* Telephone Encounter - Chip Arreola MD - 07/03/2021 12:43 PM EDT printed documented in this encounterAvita Health [facility] Hospital11-11-2021 NoteHNO ID: [id number] Author: RT Romina(R) Service: Radiology Author Type: [...] BY: RT Romina(R) February 15, 2021 10:[id number] History of Present illness Narrative* Handy Mendes (Rt), Tech - 03/04/2020 10:10 AM EST [...] 04, 2020 10:09 AM documented in this encounterAvita Health [facility]08-28-2020 History of Past illness Narrative* Problem [...] of this encounter (statuses as of 07/04/2021) [facility] History of Past illness Narrative* Problem [...] of this encounter (statuses as of 08/21/2021) [facility] History of Past illness Narrative* Problem [...] of this encounter (statuses as of 08/22/2021) [facility] History of Past illness Narrative* Problem [...] of this encounter (statuses as of 08/27/2021) [facility] History of Past illness Narrative* Problem [...] of this encounter (statuses as of 09/10/2021) [facility] History of Past illness Narrative* Problem [...] of this encounter (statuses as of 09/11/2021) [facility] History of Past illness Narrative* Problem [...] of this encounter (statuses as of 09/14/2021) [facility] History of Past illness Narrative* Problem [...] of this encounter (statuses as of 10/16/2021) [facility] History of Past illness Narrative* Problem Noted Date Resolved Date Breast pain 12/03/2019 04/27/2021 Septic arthritis of shoulder, right 10/07/2018 10/23/2021 Breast cancer, left breast 02/24/201810/23 Overview: Added automatically from request for surgery [id number] Rotator cuff tear arthropathy, right 06/24/2016 10/23/2021 [...] of this encounter (statuses as of 10/25/2021) [address]28-2020 History of Past illness Narrative* Problem Noted Date Resolved Date Breast pain 12/03/2019 04/27/2021 Septic arthritis of shoulder, right 10/07/2018 10/23/2021 Breast cancer, left breast 02/24/201810/23 Overview: Added automatically from request for surgery [id number] Rotator cuff tear arthropathy, right 06/24/2016 10/23/2021 [...] of this encounter (statuses as of 10/27/2021) [facility] History of Past illness Narrative* Problem Noted Date Resolved Date Breast pain 12/03/2019 04/27/2021 Septic arthritis of shoulder, right 10/07/2018 10/23/2021 Breast cancer, left breast 02/24/201810/23 Overview: Added automatically from request for surgery [id number] Rotator cuff tear arthropathy, right 06/24/2016 10/23/2021 [...] of this encounter (statuses as of 10/29/2021) [facility] History of Past illness Narrative* Problem Noted Date Resolved Date Breast pain 12/03/2019 04/27/2021 Septic arthritis of shoulder, right 10/07/2018 10/23/2021 Breast cancer, left breast 02/24/201810/23 Overview: Added automatically from request for surgery [id number] Rotator cuff tear arthropathy, right 06/24/2016 10/23/2021 [...] of this encounter (statuses as of 10/31/2021) [facility] History of Past illness Narrative* Problem Noted Date Resolved Date Breast pain 12/03/2019 04/27/2021 Septic arthritis of shoulder, right 10/07/2018 10/23/2021 Breast cancer, left breast 02/24/201810/23 Overview: Added automatically from request for surgery [id number] Rotator cuff tear arthropathy, right 06/24/2016 10/23/2021 [...] of this encounter (statuses as of 12/05/2021) [facility] History of Past illness Narrative* Problem Noted Date Resolved Date Breast pain 12/03/2019 04/27/2021 Septic arthritis of shoulder, right 10/07/2018 10/23/2021 Breast cancer, left breast 02/24/201810/23 Overview: Added automatically from request for surgery [id number] Rotator cuff tear arthropathy, right 06/24/2016 10/23/2021 [...] of this encounter (statuses as of 12/07/2021) [facility] HospitalDischarge summary Author Ruiz Reaves [facility] Note Date/Time October 11, 2024 10:38 am [facility] Medical Records Department [address] [place] [address] Emergency Department Summary 10/11/24 MR#: [id number] Acct: [id number] Name: KESHA CARMICHAEL Rep #:[id number] : 1945 79 From: Ruiz Reaves DO PCP: Dr. Chip Arreola MD Status:ADM I N Location: ICU ICU05-1 HPI History of Present Illness Chief Complaint: [...] blood pressure and possibility of inferior wall GA. They held off on aspirin aswell and prehospital she was on Xarelto. [facility] Medical History Non-rheumatic tricuspid valve insufficiency Paroxysmal atrial fibrillation Acute on chronic diastolic (congestive) heart failure Secondary pulmonary arterial hypertension Essential (primary) hypertension Persistent atrial fibrillation RONALDO (obstructive sleep apnea) Obesity, Class III, BMI 40-49.9 (morbid obesity) Malignant neoplasm of left breast, estrogen receptor positive Type 2 diabetes mellitus Osteoarthritis Migraines Knee pain, chronic Inferior GA Hyperglycemia Epistaxis Home Medications ?Medication ?Instructions ?Recorded [...] Patient follow commands that she was at [facility] the year is 2024 Skin: Warm, [...] STEMI therefore STEMI alert was called on-call puttying and calking supervisor Dr. Blum came down and evaluated the patient at bedside. He is recommending aspirin and beta-jarod. He is also requesting aspirin, heparin drip, nitroglycerin drip which were all ordered multiple EKGs were obtained and reviewed therefore after this further review by puttying and calking supervisor he also would prefer to get rate [...] % (Auto) 62.4 Lymph % (Auto) 30.4 Eaton % (Auto) 5.7 Eos % (Auto) 0.6 [...] Paroxysmal atrial fibrillation, Chest pain, Non-ST elevation GA (NSTEMI) Primary Care Provider: Chip Arreola Disposition Disposition: Acute Care Hospital [facility] What to do if you have Problems For any increased pain, shortness of breath, bleeding, nausea or vomiting, chestpain, or any unexpected problems, contact your Primary Care Provider. Call [facility] ([phone]) or report to the closest Emergency Room. Call 911 if necessary. 10/11/24 1038 <Electronically signed by Ruiz Reaves DO> Cosigner Signature (if applicable): CC: Dr. Chip Arreola MD ~ Signed [facility] Work Phone: Discharge summary Author Dayanna [facility] Note Date/Time October 12, 2024 4:22p m [facility] Medical Records Department [address] [place] [address] Discharge Summary 10/12/24 1611 MR#: [id number] Acct: [id number] Name: KESHA CARMICHAEL Rep #:[id number] : 1945 79 From: Dayanna Miranda DO PCP: Dr. Chip Arreola MD Status:ADM I N Location: [place] [address] Providers Date of Admission: 10/11/24 Primary Care Physician: Dr. Chip Arreola MD Consultations 10/11/24 11:13 Consult: Cardiology Routine Consulting Provider: Lida Blum Reason for Consult: Chest Pain EMERGENT Consult: No MD Notified: Yes Date Notified: 10/11/24 Time Notified: 10:24 Method of Notification: ED Physician Initiated Reason For Visit: stemi Diagnosis Discharge Diagnosis (1) Atrial fibrillation with RVR: Status: Resolved Code(s): I48.91 - Unspecified atrial fibrillation Plan: Currently improved. Patient did receive digoxin in the emergency room. Unclear if she is actually taking both of those. Will need to clarify which oneshe is taking or if those are correct. The meantime patient will be on as needed IV metoprolol for heart rate greater than 160. Patient is already anticoagulated on rivaroxaban continue for now. Echocardiogram showed an EF 50%, hypokinetic apex. PASP 30 mm Hg. Changed metoprolol succinate 50/d to tartrate 50 BID. Resume rivaroxaban on then. (2) Chest pain: Status: Acute Code(s): R07.9 - Chest pain, unspecified Plan: Initial Troponin minimally elevated at 17, then went to 323. Not an actual STEMI despite a STEMI alert being called. LHC today showed mild eccentric plaque rupture noted in the proximal and mid left anterior descending artery. The rest of the vessels appeared to be free ofsignificant disease. There was hypokinesis of the apex noted. Takotsubo cardiomyopathy cannot be completely excluded. Plan Hypertension: Continue with valsartan VTE prophylaxis: Not indicated patient is already on oxygen. SOM Romero. Ok for [place] home. Medications at Discharge Home Medications multivitamin with folic acid 400 mcg tablet 1 tab PO DAILY SUPPLEMENT 08/18/17 omega-3 fatty acids 1,000 mg capsule 2,000 mg PO DAILY supplement 09/04/18 valsartan 160 mg tablet 160 mg PO DAILY heart 09/04/18 furosemide 40 mg tablet 40 mg PO DAILY #60 tabs 10/02/18 rivaroxaban 20 mg tablet 20 mg PO DAILY 11/03/18 Held on 10/12/24. Instructions: Resume on 10/13/24. potassium 99 mg tablet 99 mg PO DAILY supplement 10/11/24 thiamine HCl (vitamin B1) 250 mg tablet 250 mg PO DAILY supplement 10/11/24 vit C 250 mg-vit E 90 mg-zinc 40 mg-copper 1 ae-vzoifn-thlvpd capsule ([employer] AREDS-2) 1 tab PO BID eye vitamin 10/11/24 metoprolol tartrate 50 mg tablet 50 mg PO BID #60 tabs 10/12/24 Hospital Course Procedures 2-D Echocardiogram and Cardiac catheterization Summary of Care Provided Minutes Spent on Discharge: 32 Hospital Course: Patient presents with chest pain as well as epistaxis. Epistaxis did resolve but patient was still having chest pain. Troponins were slightly elevated up to323. Patient underwent a echocardiogram that showed an EF of 50% with hypokinetic apex. Patient undergo a cardiac catheterization which showed mild eccentric plaque rupture in the proximal and mid left anterior descending artery. Left the vessel appeared to be free of significant disease. There was hypokinesis of the apex. Takotsubo cardiomyopathy could not be completely excluded. Recommend continuing beta- jarod and ARB. As well as low-dose furosemide. Patient's beta-jarod was changed from metoprolol succinate 50 daily to 50 twice daily. Weight / BMI Weight Weight: 93.4 kg Body Mass Index (BMI) 40.1 ABG / Lab / Microbiology Data 10/12/24 05:52 10/12/24 05:52 Laboratory: Laboratory Results - last 24 hr 10/11/24 19:46: APTT 79.6 H 10/12/24 03:28: APTT 90.2 H* 10/12/24 05:52: WBC 7.4, RBC 3.93 L, Hgb 12.5, Hct 37.8, MCV 96.2, MCH 31.8, MCHC 33.1, RDW Std Deviation 45.2 H, RDW Coeff of Gold 12.8, Plt Count 253, MPV 10.7, Immature Gran % (Auto) 0.400, Neut % (Auto) 73.0 H, Lymph % (Auto) 19.0, Eaton % (Auto) 6.6, Eos % (Auto) 0.7, Baso % (Auto) 0.3, Absolute Neuts (auto) 5.4, Absolute Lymphs (auto) 1.41, Nucleated RBC % 0, Sodium 142, Potassium 3.5, Chloride 104, Carbon Dioxide 26.9, Anion Gap 11, BUN 21 H, Creatinine 0.84, Estim Creat Clear Calc 54.52, Est GFR (MDRD) Non-Af 70, BUN/Creatinine Ratio 24.7 H, Glucose 138 H, Calcium 9.2, Triglycerides 113, Cholesterol 178, LDL Cholesterol, Calc 107, VLDL Cholesterol 23, HDL Cholesterol 48, Cholesterol/HDL Ratio 3.69, TSH 2.760 Radiography Diagnostic Testing: Radiology Impression Echocardiogram 10/11/24 09:50 Interpretation Summary Normal LV size. Moderate concentric left ventricular hypertrophy. The left ventricular ejection fraction is 50 %. [place] : Hypokinetic. Mild (1+) tricuspid valve insufficiency. Pulmonary artery systolic pressure is 30 mmHg. Ordering Physician: Lida Blum Referring Physician: Lida Blum Performed By: Alyson Sifuentes RCS D/C Instructions Discharge Diet: No restrictions DC O2, CPAP, BIPAP Needs Home O2 Discharge instructions: No Meaningful Use Info Meaningful Use Meaningful Use Diagnoses (Choose all that apply): None applicable Ischemic Stroke Statin Dosing Therapy Reference: STATIN DOSE THERAPY REFERENCE: * Patients > 75 years receive moderate or high dose statin therapy. * Patients 75 years or YOUNGER should receive HIGH intensity statin dose unless contraindicated. You will be required to document reason for non-treatment if statin daily dose does not meet guidelines. HIGH DOSE STATIN THERAPY DAILY Atorvastatin > than or = to 40 mg Rosuvastatin > than or = to 20 mg Amlodipine + Atorvastatin > than or = to 2.5/40 mg Ezetimibe + Simvastatin 10/80 mg Simvastatin 80mg Discharge Plan Admission Admit Date/Time: 10/11/24 10:20 Primary Reason for Your Visit: Atrial fibrillation with RVR Attending Provider: Dayanna Miranda Primary Care Provider: Chip Arreola Consulting Providers: Lida Blum Instructions Additional Instructions / Restrictions: Follow up with cardiology in December. Discharge Orders/Prescriptions Prescriptions: New metoprolol tartrate 50 mg Tablet 50 mg PO BID Qty: 60 0RF Continued furosemide 40 mg tablet 40 mg PO DAILY Qty: 60 0RF multivitamin with folic acid 1 TABLET tablet 1 tab PO DAILY omega-3 fatty acids 1,000 MG capsule 2,000 mg PO DAILY valsartan 160 MG tablet 160 mg PO DAILY potassium 99 mg tablet 99 mg PO DAILY [facility] AREDS-2 250-90-40-1 mg capsule 1 tab PO BID thiamine HCl (vitamin B1) 250 mg tablet 250 mg PO DAILY Held rivaroxaban 20 mg tablet 20 mg PO DAILY Hold Instructions: Resume on 10/13/24. Discontinued metoprolol tartrate 50 mg tablet 50 mg PO DAILY metoprolol succinate 25 mg tablet extended release 24 hr 50 mg PO DAILY Referrals / Follow Up: Chip Arreola MD [Primary Care Provider] - Within 2 Weeks Disposition Disposition (needs filled in before D/C Order can be placed): Home, Self Care Charges/Coding Visit Charges Inpatient E&M: 87536 Disch Hosp >30min 10/12/24 1622 <Electronically signed by Dayanna Miranda DO> Cosigner Signature (if applicable): CC: Dr. Dayanna Miranda DO; Dr. Chip Arreola MD~ Signed [facility] Work Phone: Evaluation note* Diagnosis Pain in right hip- Primary Pain in joint, pelvic region and thigh documented in this encounter [facility] note* Diagnosis Other closed intra-articular fracture of distal end of right radius, initial encounter- Primary Acute pain of right wrist [facility]* Diagnosis Other closed intra-articular fracture of distal end of right radius, initial encounter- Primary documented [facility] this [facility]* Diagnosis Other closed intra-articular fracture of distal end of right radius, initial encounter documented in this [facility]* Diagnosis Other closed intra-articular fracture of distal end of right radius, initial encounter- Primary documented in this [facility]* Diagnosis Congestive heart failure, unspecified HF chronicity, unspecified heart failure type (HCC) [facility] Diagnosis Malignant neoplasm of left breast in female, estrogen receptor positive, 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 (HCC)- Primary Paroxysmal atrial fibrillation (HCC) Atrial fibrillation Essential hypertension, benign Pulmonary HTN (HCC) Other chronic pulmonary heart diseases Chronic diastolic congestive heart failure (HCC) Chronic diastolic heart failure Type 2 diabetes mellitus without complication, without long-term current use of insulin (HCC) documented [facility] this [facility]* Diagnosis Malignant neoplasm of left breast in female, estrogen receptor positive, 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 (HCC) [facility]* Diagnosis Other closed intra-articular fracture of distal end of right radius, initial encounter documented in this [facility]* Diagnosis Essential hypertension, benign- Primary Type 2 diabetes mellitus without complication, without long-term current use of insulin (HCC) Malignant neoplasm of left breast in female, estrogen receptor positive, 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 (HCC) Stage 3 chronic kidney disease, unspecified whether stage 3a or 3b CKD (HCC) documented in this [facility]* Diagnosis Closed fracture of right wrist with routine healing, subsequent encounter- Primary Other closed intra-articular fracture of distal end of right radius, initial encounter documented [facility] this [facility]* Diagnosis De Quervain's tenosynovitis- Primary Radial styloid tenosynovitis Right wrist pain Pain in joint, forearm documented in this [facility]* Diagnosis Persistent atrial fibrillation (HCC)- Primary Atrial fibrillation Essential hypertension, benign Chronic diastolic congestive heart failure (HCC) Chronic diastolic heart failure Pulmonary HTN (HCC) Other chronic pulmonary heart diseases Paroxysmal atrial fibrillation (HCC) Atrial fibrillation documented in this [facility]* Diagnosis Cellulitis of left lower extremity- Primary documented in this encounter [facility] note* Diagnosis Morbid obesity with BMI [...] kidney disease, unspecified CKD stage, unspecified whether roasterman insulin use (HCC) Essential tremor Essential and other specified forms of tremor Essential hypertension, benign Obstructive sleep apnea syndrome Obstructive sleep apnea (adult) (pediatric) Stage 3 chronic kidney disease, unspecified whether stage 3a or 3b CKD (HCC) Malignant neoplasm of left breast in female, estrogen receptor positive, 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 (HCC) snf current use of anticoagulant therapy Long-term (current) use of anticoagulants Hypokalemia Hypopotassemia documented in this [facility]* Diagnosis Pain in joint of right shoulder- Primary Pain in joint, shoulder region [facility]* Diagnosis Pain in joint of right shoulder Pain in joint, shoulder region documented in this [facility]* Diagnosis Screening breast examination Breast screening, unspecified documented in this [facility]* Diagnosis Persistent atrial fibrillation (HCC)- Primary Atrial fibrillation Chronic diastolic congestive heart failure (HCC) Chronic diastolic heart failure Pulmonary HTN (HCC) Other chronic pulmonary heart diseases Essential hypertension, benign H/O mitral valve disease Personal history of other diseases of circulatory system [facility]* Diagnosis Persistent atrial fibrillation (HCC) Atrial fibrillation documented in this encounter [facility] note* Diagnosis Pain of left lower extremity- Primary Persistent atrial fibrillation (HCC) Atrial fibrillation Essential hypertension, benign Pulmonary HTN (HCC) Other chronic pulmonary heart diseases [facility] this [facility] noteNo assessment information availableWKettering [facility] Work Phone: Evaluation note* Diagnosis Hypokalemia- Primary Hypopotassemia documented in this encounter [facility] note* Diagnosis Congestive heart failure, unspecified HF chronicity, unspecified heart failure type (HCC) documented in this encounter [facility] note* Diagnosis Persistent atrial fibrillation (HCC)- Primary Atrial fibrillation Chronic diastolic congestive heart failure (HCC) Chronic diastolic heart failure H/O mitral valve disease Personal history of other diseases of circulatory system Essential hypertension, benign Pulmonary HTN (HCC) Other chronic pulmonary heart diseases Morbid obesity with BMI of 40.0-44.9, adult (HCC) Morbid obesity [facility]* Diagnosis Intermediate stage n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 Pseudophakia Lens replaced by other means Posterior vitreous detachment of both eyes Vitreous degeneration documented in this [facility]* Diagnosis Encounter for screening mammogram for malignant neoplasm of breast- Primary Other screening mammogram documented [facility] this [facility]* Diagnosis Encounter for screening mammogram for malignant neoplasm of breast Other screening mammogram [facility]* Diagnosis Essential tremor- Primary Essential and other specified forms of tremor Encounter for screening examination for other mental health and behavioral disorders Screening for depression Persistent atrial fibrillation (HCC) Atrial fibrillation Malignant neoplasm of overlapping sites of left breast in female, estrogen receptor positive (HCC) Type 2 diabetes mellitus with diabetic chronic kidney disease, unspecified CKD stage, unspecified whether roasterman insulin use (HCC) Obstructive sleep apnea syndrome Obstructive sleep apnea (adult) (pediatric) Essential hypertension, benign [facility]* Diagnosis Pain of left lower extremity [facility]* Diagnosis Acute recurrent sinusitis, unspecified location documented [facility] this [facility]* Diagnosis Acute pain of right wrist documented in this [facility]* Diagnosis Acute pain of left knee [facility]* Diagnosis Low back pain, unspecified back pain laterality, unspecified chronicity, unspecified whether sciatica present- Primary DDD (degenerative disc disease), thoracic Degeneration of thoracic or thoracolumbar intervertebral disc Tremor Abnormal involuntary movements Falls frequently Personal history of fall [facility]* Diagnosis Low back pain, unspecified back pain laterality, unspecified chronicity, unspecified whether sciatica present DDD (degenerative disc disease), thoracic Degeneration of thoracic or thoracolumbar intervertebral disc [facility]* Diagnosis Persistent atrial fibrillation (HCC) Atrial fibrillation [facility]* Diagnosis Falls frequently- Primary Personal history of fall Frequent falls Personal history of fall documented in this encounter [facility] note* Diagnosis Persistent atrial fibrillation (HCC) Atrial fibrillation [facility]* Diagnosis Persistent atrial fibrillation (HCC)- Primary Atrial fibrillation Chronic diastolic congestive heart failure (HCC) Chronic diastolic heart failure Essential hypertension, benign Pulmonary HTN (HCC) Other chronic pulmonary heart diseases Morbid obesity with BMI of 40.0-44.9, adult (HCC) Morbid obesity [facility]* Diagnosis Falls frequently- Primary Personal history of fall documented in this encounter [facility] note* Diagnosis Infected abrasion of left lower extremity, initial encounter- Primary [facility]* Diagnosis Falls frequently- Primary Personal history of fall [facility]* Diagnosis Falls frequently- Primary Personal history of fall [facility]* Diagnosis Falls frequently- Primary Personal history of fall documented in this [facility]* Diagnosis Falls frequently- Primary Personal history of fall [facility]* Diagnosis Falls frequently- Primary Personal history of fall [facility]* Diagnosis Itching with irritation- Primary Unspecified [...] vitamin D deficiency documented in this [facility]* Diagnosis Pain of right hip documented in this encounter [facility] note* Diagnosis Falls frequently- Primary Personal history of fall documented in this [facility]* Diagnosis Rotator cuff tear arthropathy, right- Primary documented in this [facility]* Diagnosis Rotator cuff tear arthropathy, left- Primary documented in this encounter [facility] note* Diagnosis Rotator cuff tear arthropathy, right Rotator cuff tear arthropathy, left documented in this [facility]* Diagnosis Rotator cuff tear arthropathy, left- Primary Rotator cuff tear arthropathy, right documented in this encounter [facility] note* Diagnosis Hypercalcemia- Primary Bilateral leg edema Edema Essential hypertension, benign Congestive heart failure, unspecified HF chronicity, unspecified heart failure type (HCC) Malignant neoplasm of left breast in female, estrogen receptor positive, 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 (HCC) Body mass index (BMI) 40.0-44.9, adult (HCC) Chronic kidney disease, stage 3a (HCC) Abnormality of gait Falling episodes Lack of coordination documented in this encounter [facility] note* Diagnosis Parathyroid abnormality (HCC)- Primary Unspecified disorder of parathyroid gland documented in this encounter [facility] note* Diagnosis Rotator cuff tear arthropathy, left Rotator cuff tear arthropathy, right documented [facility] this [facility]* Diagnosis Atrial fibrillation, unspecified type (HCC)- Primary NSTEMI (non-ST elevated myocardial infarction) ([facility]) Acute myocardial infarction, subendocardial infarction, episode of care unspecified documented in this 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- Primary Takotsubo cardiomyopathy Takotsubo syndrome Persistent atrial fibrillation (HCC) Atrial fibrillation Pulmonary HTN (HCC) Other chronic pulmonary heart diseases H/O mitral valve disease Personal history of other diseases of circulatory system Chronic diastolic congestive heart failure (HCC) Chronic diastolic heart failure Essential hypertension, benign Mixed hyperlipidemia [facility] Diagnosis Primary hyperparathyroidism (HCC)- Primary Primary hyperparathyroidism Type 2 diabetes mellitus with diabetic microalbuminuria, without long-term current use of insulin (HCC) Mixed hyperlipidemia Morbid obesity with BMI of 40.0-44.9, adult (HCC) Morbid obesity [facility] Author Dayanna Miranda [facility] Note Date/Time October 11, 2024 10:33 am [facility] Medical Records Department [address] [place] [address] H&P Exam - Hospitalist 10/11/24 1026 MR#: [id number] Acct: [id number] Name: KESHA CARMICHAEL Rep #:[id number] : 1945 79 From: Dayanna Miranda DO PCP: Dr. Chip Arreola MD Status:ADM I N Location: ICU ICU-1 HPI - General General Date of Admission: 10/11/24 Date of Service: 10/11/24 Chief Complaint: Chest pain HPI Narrative KESHA CARMICHAEL, is a 79 F who presents with epistaxis and chest pain. This is [id number] male who has a history of A-fib [...] heart rate is fast all the time. [facility] Medical History Non-rheumatic tricuspid valve insufficiency Paroxysmal atrial fibrillation Acute on chronic diastolic (congestive) heart failure Secondary pulmonary arterial hypertension Essential (primary) hypertension Persistent atrial fibrillation RONALDO (obstructive sleep apnea) Obesity, Class III, BMI 40-49.9 (morbid obesity) Malignant neoplasm of left breast, estrogen receptor positive Type 2 diabetes mellitus Osteoarthritis Migraines Knee pain, chronic Inferior GA Hyperglycemia Epistaxis Home Medications ?Medication ?Instructions ?Recorded [...] % (Auto) 62.4, Lymph % (Auto) 30.4, Eaton % (Auto) 5.7, Eos % (Auto) 0.6, [...] on oxygen. Charges/Coding Visit Charges Inpatient E&M: 01449 Init Hosp L3 10/11/24 1033 <Electronically signed by Dayanna Miranda DO> Cosigner Signature (if applicable): CC: Dr. Dayanna Miranda DO; Dr. Chip Arreola MD~ Signed [facility] Work Phone: Hospital Discharge instructionsAdditional Instructions Follow up with cardiology in December.[facility] Work Phone: Reason for referral (narrative)* Diagnostic Procedure Only (Routine) - Pending Review Specialty Diagnoses / Procedures Referred By Contac t Referred To Contact XR IMAGING Diagnoses Pain in right hip Procedures XR HIP 2V AP/LAT RIGHT (AK,FL,ME) RADEX HIP UNILATERAL WITH PELVIS 2-3 VIEWS Martin Mary APRN.CNP [address] [place] [address] Xr Imaging Referral ID Status Reason Start Date Expiration Date Visits Requested Visits Authorized [id number] Pending Review Auto-Generat ed Referral 08/21/2021 09/19/2022 1 1 [facility] for referral (narrative)* Diagnostic Procedure Only (Routine) - Closed Specialty Diagnoses / Procedures Referred By Contac t Referred To Contact XR IMAGING Diagnoses Other closed intra-articular fracture of distal end of right radius, initial encounter Procedures XR WRIST GENERAL 3V PA/LAT/OBL RIGHT RADEX WRIST COMPLETE MINIMUM 3 VIEWS Donald Massey MD [address] [place] [address] Xr Imaging Referral ID Status Reason Start Date Expiration Date V isits Requested Visits Authorized [id number] Closed Auto-Generate d Referral 08/27/2021 09/26/2022 1 1 [facility] for referral (narrative)* Diagnostic Procedure Only (Routine) - Closed Specialty Diagnoses / Procedures [facility] To [facility] Diagnoses Other closed intra-articular fracture of distal end of right radius, initial encounter Procedures XR WRIST GENERAL 3V PA/LAT/OBL RIGHT RADEX WRIST COMPLETE MINIMUM 3 VIEWS Donald Massey MD [address] [place] [address] Xr Imaging Referral ID Status Reason Start Date Expiration Date V isits Requested Visits Authorized [id number] Closed Auto-Generate d Referral 08/27/2021 09/26/2022 1 1 [facility] for referral (narrative)* Diagnostic Procedure Only (Routine) - Authorized Specialty Diagnoses / Procedures Referred By Harper t Referred To Contact BR IMAGING Diagnoses Malignant neoplasm of left breast in female, estrogen receptor positive, 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 (HCC) Procedures MAHAD SCREENING SCREENING MAMMOGRAPHY BI 2-VIEW BREAST INC Chip Moore MD [address] [id number] [facility] [address] [place] [address] Referral ID Status Reason Start Date Expiration Date Visits Requested Visits Authorized [id number] Authorized Auto-Generat ed Referral 10/25/2021 11/24/2022 1 1 [facility] for referral (narrative)* Diagnostic Procedure Only (Routine) - Closed Specialty Diagnoses / Procedures [facility] Referred To Contact BR IMAGING Diagnoses Malignant neoplasm of left breast in female, estrogen receptor positive, 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 (HCC) Procedures MAHAD SCREENING SCREENING MAMMOGRAPHY BI 2-VIEW BREAST INC Chip Moore MD [address] [place] [address] [facility] [address] [place] [address] Referral ID Status Reason Start Date Expiration Date V isits Requested Visits Authorized [id number] Closed Auto-Generate d Referral 10/25/2021 11/24/2022 1 1 [facility] for referral (narrative)* Diagnostic Procedure Only (Routine) - Closed Specialty Diagnoses / Procedures Referred By Contac t Referred To Contact XR IMAGING Diagnoses Other closed intra-articular fracture of distal end of right radius, initial encounter Procedures XR WRIST GENERAL 3V PA/LAT/OBL RIGHT RADEX WRIST COMPLETE MINIMUM 3 VIEWS Donald Massey MD [address] [place] [address] Xr Imaging Referral ID Status Reason Start Date Expiration Date V isits Requested Visits Authorized [id number] Closed Auto-Generate d Referral 12/05/2021 01/04/2023 1 1 [facility] for referral (narrative)* Diagnostic Procedure Only (Routine) - Pending Review Specialty Diagnoses / Procedures Referred By Contac t Referred To Contact XR IMAGING Diagnoses Pain in joint of right shoulder Procedures XR SHOULDER GENERAL 3V OR MORE AP/TRUE AP/OTHER RIGHT RADEX SHOULDER COMPLETE MINIMUM 2 VIEWS Dominga Reese PA-C [address] [place] [address] Xr Imaging Referral ID Status Reason Start Date Expiration Date Visits Requested Visits Authorized [id number] Pending Review Auto-Generat ed Referral 05/14/2022 06/13/2023 1 1 [facility] for referral (narrative)* Diagnostic Procedure Only (Routine) - Closed Specialty Diagnoses / Procedures Referred By Contac t Referred To Contact XR IMAGING Diagnoses Pain in joint of right shoulder Procedures XR SHOULDER GENERAL 3V OR MORE AP/TRUE AP/OTHER RIGHT RADEX SHOULDER COMPLETE MINIMUM 2 VIEWS Dominga Reese PA-C [address] [place], [place] [id number] Xr Imaging Referral ID Status Reason Start Date Expiration Date V isits Requested Visits Authorized [id number] Closed Auto-Generate d Referral 05/14/2022 06/13/2023 1 1 [facility] for referral (narrative)* Diagnostic Procedure Only (Routine) - Closed Specialty Diagnoses / Procedures Referred By Harper davis Referred To Contact BR IMAGING Diagnoses Screening breast examination Procedures MAHAD SCREENING SCREENING MAMMOGRAPHY BI 2-VIEW BREAST INC CAD Chip Arreola MD [address] [place] [address] [facility] [address] [place] [id number] Referral ID Status Reason Start Date Expiration Date V isits Requested Visits Authorized [id number] Closed Auto-Generate d Referral 10/16/2022 11/15/2023 1 1 [facility] for referral (narrative)* Outpatient Procedure (Routine) - Authorized Specialty Diagnoses / Procedures [facility] Referred To Contact [facility] Diagnoses Persistent atrial fibrillation (HCC) H/O mitral valve disease Procedures ECHO ECHO TTHRC R-T 2D W/WOM-MODE COMPL SPEC&COLR D Anuj Naavrro MD [address] [place] [id number] [facility] [address] [address] Referral ID Status Reason Start Date Expiration Date Visits Requested Visits Authorized [id number] Authorized Auto-Generat ed Referral 07/07/2023 02/24/2024 1 1 [facility] for referral (narrative)* Outpatient Procedure (Urgent) - Pending Review Specialty Diagnoses / Procedures [facility] Referred To Contact [facility] Diagnoses Pain of left lower extremity Procedures US LEG VEIN DVT UNL VAS LAB DUP-SCAN XTR VEINS UNILATERAL/LIMITED STUDY Chip Arreola MD [address] [place] [address] [facility] [address] [address] Referral ID Status Reason Start Date Expiration Date Visits Requested Visits Authorized [id number] Pending Review Auto-Generat ed Referral 03/12/2023 03/11/2024 1 1 * Diagnostic Procedure Only (Routine) - Closed Specialty Diagnoses / Procedures Referred By Contac t Referred To Contact XR IMAGING Diagnoses Pain of left lower extremity Procedures XR ANKLE GENERAL 3V AP/LAT/OBL LEFT RADEX ANKLE COMPLETE MINIMUM 3 VIEWS Chip Arreola MD [address] [place] [address] [place] [address] Referral ID Status Reason Start Date Expiration Date V isits Requested Visits Authorized [id number] Closed Auto-Generate d Referral 03/12/2023 04/10/2024 1 1 [facility] for referral (narrative)* Diagnostic Procedure Only (Routine) - New Request Specialty Diagnoses / Procedures Referred By Contac t Referred To Contact BR IMAGING Diagnoses Encounter for screening mammogram for malignant neoplasm of breast Procedures MAHAD SCREENING SCREENING MAMMOGRAPHY BI 2-VIEW BREAST INC CAD Chip Arreola MD [address] [place] [address] [facility] [address] [place] [address] Referral ID Status Reason Start Date Expiration Date Visits Requested Visits Authorized [id number] New Request Auto-Generat ed Referral 11/04/2023 12/03/2024 1 1 [facility] for referral (narrative)* Diagnostic Procedure Only (Routine) - Closed Specialty Diagnoses / Procedures Referred By Contac t Referred To Contact XR IMAGING Diagnoses Pain of left lower extremity Procedures XR ANKLE GENERAL 3V AP/LAT/OBL LEFT RADEX ANKLE COMPLETE MINIMUM 3 VIEWS Chip Arreola MD [address] [place] [address] [place] [address] Referral ID Status Reason Start Date Expiration Date V isits Requested Visits Authorized [id number] Closed Auto-Generate d Referral 03/12/2023 04/10/2024 1 1 [facility] for referral (narrative)* Diagnostic Procedure Only (Urgent) - Closed Specialty Diagnoses / Procedures Referred By Contac t Referred To Contact XR IMAGING Diagnoses Acute pain of right wrist Procedures XR WRIST INJURY 4V PA/LAT/OBL/SCAPH RIGHT RADEX WRIST COMPLETE MINIMUM 3 VIEWS Jaleel Craft MD [address] [place] [address] [place] [address] Referral ID Status Reason Start Date Expiration Date V isits Requested Visits Authorized [id number] Closed Auto-Generate d Referral 08/22/2021 09/21/2022 1 1 [facility] for referral (narrative)No reason for referral information [facility]WK[facility] Phone: [facility] Narrative* Diagnostic Procedure Only (Routine) - Closed Specialty Diagnoses / Procedures Referred By Contac t Referred To Contact XR IMAGING Diagnoses Other closed intra-articular fracture of distal end of right radius, initial encounter Procedures XR WRIST GENERAL 3V PA/LAT/OBL RIGHT RADEX WRIST COMPLETE MINIMUM 3 VIEWS Donald Massey MD [address] [place] [id number] [facility] Referral ID Status Reason Start Date Expiration Date V isits Requested Visits Authorized [id number] Closed Auto-Generate d Referral 08/27/2021 09/26/2022 1 1 [facility] for visit Narrative* Diagnostic Procedure Only (Routine) - Closed Specialty Diagnoses / Procedures Referred By Contac t Referred To Contact BR IMAGING Diagnoses Malignant neoplasm of left breast in female, estrogen receptor positive, 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 (HCC) Procedures MAHAD SCREENING SCREENING MAMMOGRAPHY BI 2-VIEW BREAST INC CAD Chip Arreola MD [address] [place] [address] [facility] [address] [place] [address] Referral ID Status Reason Start Date Expiration Date V isits Requested Visits Authorized [id number] Closed Auto-Generate d Referral 10/25/2021 11/24/2022 1 1 [facility] for visit Narrative* Diagnostic Procedure Only (Routine) - Closed Specialty Diagnoses / Procedures Referred By Contac t Referred To Contact XR IMAGING Diagnoses Other closed intra-articular fracture of distal end of right radius, initial encounter Procedures XR WRIST GENERAL 3V PA/LAT/OBL RIGHT RADEX WRIST COMPLETE MINIMUM 3 VIEWS Donald Massey MD [address] [place] [address] Xr Imaging Referral ID Status Reason Start Date Expiration Date V isits Requested Visits Authorized [id number] Closed Auto-Generate d Referral 12/05/2021 01/04/2023 1 1 [facility] for visit Narrative* Diagnostic Procedure Only (Routine) - Closed Specialty Diagnoses / Procedures Referred By Contac t Referred To Contact BR IMAGING Diagnoses Screening breast examination Procedures MAHAD SCREENING SCREENING MAMMOGRAPHY BI 2-VIEW BREAST INC Chip Moore MD [address] [place] [address] [facility] [address] [place] [address] Referral ID Status Reason Start Date Expiration Date V isits Requested Visits Authorized [id number] Closed Auto-Generate d Referral 10/16/2022 11/15/2023 1 1 [facility] for visit Narrative* Diagnostic Procedure Only (Routine) - Closed Specialty Diagnoses / Procedures Referred By Contac t Referred To Contact BR IMAGING Diagnoses Encounter for screening mammogram for malignant neoplasm of breast Procedures MAHAD SCREENING SCREENING MAMMOGRAPHY BI 2-VIEW BREAST INC Chip Moore MD [address] [place] [address] [facility] Imaging [address] [place] [address] Referral ID Status Reason Start Date Expiration Date V isits Requested Visits Authorized [id number] Closed Auto-Generate d Referral 11/04/2023 12/03/2024 1 1 [facility] for visit Narrative* Diagnostic Procedure Only (Routine) - Closed Specialty Diagnoses / Procedures Referred By Contac t Referred To Contact XR IMAGING Diagnoses Pain of left lower extremity Procedures XR ANKLE GENERAL 3V AP/LAT/OBL LEFT RADEX ANKLE COMPLETE MINIMUM 3 VIEWS Chip Arreola MD [address] [place] [address] [place] [address] Referral ID Status Reason Start Date Expiration Date V isits Requested Visits Authorized [id number] Closed Auto-Generate d Referral 03/12/2023 04/10/2024 1 1 [facility] for visit Narrative* Diagnostic Procedure Only (Urgent) - Closed Specialty Diagnoses / Procedures Referred By Contac t Referred To Contact XR IMAGING Diagnoses Acute pain of right wrist Procedures XR WRIST INJURY 4V PA/LAT/OBL/SCAPH RIGHT RADEX WRIST COMPLETE MINIMUM 3 VIEWS Jaleel Craft MD [address] [place] [address] [place] [address] Referral ID Status Reason Start Date Expiration Date V isits Requested Visits Authorized [id number] Closed Auto-Generate d Referral 08/22/2021 09/21/2022 1 1 [facility] for visit Narrative* Diagnostic Procedure Only (Routine) - Closed Specialty Diagnoses / Procedures Referred By Contac t Referred To Contact XR IMAGING Diagnoses DDD (degenerative disc disease), thoracic Procedures XR THORACIC GENERAL 3V AP/LAT/SWIMMERS RADEX SPINE THORACIC 3 VIEWS Belkys Mcintyre APRN.LAUNDRY MACHINE MECHANIC [address] [place] [address] [place] [address] Referral ID Status Reason Start Date Expiration Date V isits Requested Visits Authorized [id number] Closed Auto-Generate d Referral 03/09/2024 04/08/2025 1 1 [facility] for visit Narrative* Diagnostic Procedure Only (Routine) - Closed Specialty Diagnoses / Procedures Referred By Contac t Referred To Contact XR IMAGING Diagnoses Pain of right hip Procedures XR HIP GENERAL 3V PELV/AP/LAT RIGHT RADEX HIP UNILATERAL WITH PELVIS 2-3 VIEWS Belkys Mcintyre APRN.LAUNDRY MACHINE MECHANIC [address] [place] [address] Phone: tel: fax: [place] [address] Referral ID Status Reason Start Date Expiration Date V isits Requested Visits Authorized [id number] Closed Auto-Generate d Referral 05/27/2024 06/26/2025 1 1 [facility] for visit Narrative* Diagnostic Procedure Only (Routine) - Closed Specialty Diagnoses / Procedures Referred By Harper davis Referred To Contact XR IMAGING Diagnoses Rotator cuff tear arthropathy, left Procedures XR SHOULDER GENERAL 3V OR MORE AP/TRUE AP/OTHER LEFT RADEX SHOULDER COMPLETE MINIMUM 2 VIEWS Dayanna Lewis MD [address] [place] [address] Phone: tel: fax: [place] [address] Referral ID Status Reason Start Date Expiration Date V isits Requested Visits Authorized [id number] Closed Auto-Generate d Referral 06/14/2024 07/14/2025 1 1 [facility] for visit Narrative* Diagnostic Procedure Only (Routine) - Closed Specialty Diagnoses / Procedures Referred By Harper davis Referred To Contact BR IMAGING Diagnoses Malignant neoplasm of left breast in female, estrogen receptor positive, 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 (HCC) Procedures MAHAD SCREENING W TERE SCREENING DIGITAL BREAST TOMOSYNTHESIS BI SCREENING MAMMOGRAPHY BI 2-VIEW BREAST INC CAD Miguelina, Belkys A, BOOK EDITOR.LAUNDRY MACHINE MECHANIC [address] [place] [address] Phone: tel: fax: [facility] [address] [place] [address] Referral ID Status Reason Start Date Expiration Date V isits Requested Visits Authorized [id number] Closed Auto-Generate d Referral 10/04/2024 11/03/2025 1 1 [facility] Summary Purpose Family History No Family History Records Found Relationship Condition Age at Onset Recorded Date/T [...] colon Unknown Diabetes mellitus Unknown Advance Directives No Advanced Directives Records FoundDocuments on File Type Date 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 Advance Directive(s) 11/02/2024 8:33 AM Date Activated Date Inactivated Comments 03/10/2020 12:04 PM Documents on File Type Date 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 Advance Directive(s) Advance Directive(s) 03/04/2020 5:29 PM Advance Directive(s) 10/07/2018 7:10 PM Advance Directive(s) 02/25/2018 10:40 AM Latest Code Status on File Code Status Date Activated Date Inactivated Comments Full Code 03/10/2020 12:04 PM Documents on File Type Date 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 Yes October 11, 2024 11:25am Name of Medical Power of Imaging Analyst Dmitry winkler October 11, 2024 11:25am Advance Directives Yes November 30, 2018 11:07am Reason for Referral Specialty Diagnoses / Procedures Referred By Harper davis Referred To Contact Orthopedics Diagnoses Other closed intra-articular fracture of distal end of right radius, initial encounter Procedures CONSULT TO ORTHOPAEDICS OFFICE/OUTPATIENT NEW HIGH MDM 60-74 MINUTES Jaleel Craft MD [address] [place] [address] Referral ID Status Reason Start Date Expiration Date Visits Requested Visits Authorized [id number] Authorized PCP Requested Referral 08/22/2021 08/22/2022 1 1 Specialty Diagnoses / Procedures Referred By Contac t Referred To Contact XR IMAGING Diagnoses Acute pain of right wrist Procedures XR WRIST INJURY 4V PA/LAT/OBL/SCAPH RIGHT RADEX WRIST COMPLETE MINIMUM 3 VIEWS Jaleel Craft MD [address] [place] [address] X[facility] Imaging Referral ID Status Reason Start Date Expiration Date V isits Requested Visits Authorized [id number] Closed Auto-Generate d Referral 08/22/2021 09/21/2022 1 1 Specialty Diagnoses / Procedures Referred By Contac t Referred To Contact MR IMAGING Diagnoses Closed fracture of right wrist with routine healing, subsequent encounter Procedures MRI WRIST WO IVCON RT MRI ANY JT UPPER EXTREMITY W/O CONTRAST MATRL Donald Massey MD [address] [place] [id number] Mr Imaging Referral ID Status Reason Start Date Expiration Date Visits Requested Visits Authorized [id number] Pending Review Auto-Generat ed Referral 12/31/2021 01/30/2023 1 1 Specialty Diagnoses / Procedures Referred By Contac t Referred To Contact [facility] Diagnoses Falls frequently Procedures CONSULT TO PHYSICAL THERAPY PHYSICAL THERAPY EVALUATION HIGH COMPLEX 45 MINS Belkys Mcintyre APRN.LAUNDRY MACHINE MECHANIC [address] [place] [address] [facility] [place] [address] [place] [address] Referral ID Status Reason Start Date Expiration Date Visits Requested Visits Authorized [id number] Authorized Auto-Generat ed Referral 04/07/2023 04/06/2024 99 99 Specialty Diagnoses / Procedures Referred By Contac t Referred To Contact XR IMAGING Diagnoses DDD (degenerative disc disease), thoracic Procedures XR THORACIC GENERAL 3V AP/LAT/SWIMMERS RADEX SPINE THORACIC 3 VIEWS Belkys Mcintyre APRN.LAUNDRY MACHINE MECHANIC [address] [place] [address] [place] [address] Referral ID Status Reason Start Date Expiration Date V isits Requested Visits Authorized [id number] Closed Auto-Generate d Referral 03/09/2024 04/08/2025 1 1 Specialty Diagnoses / Procedures Referred By Harper t Referred To Contact XR IMAGING Diagnoses Low back pain, unspecified back pain laterality, unspecified chronicity, unspecified whether sciatica present Procedures XR LUMBAR GENERAL 3V AP/LAT/L5-S1 RADEX SPINE LUMBOSACRAL 2/3 VIEWS Belkys Mcintyre, ALICIA.LAUNDRY MACHINE MECHANIC [address] [facility] [place] [address] [place] [address] Referral ID Status Reason Start Date Expiration Date V isits Requested Visits Authorized [id number] Closed Auto-Generate d Referral 03/09/2024 04/08/2025 1 1 Chief Complaint and Reason for Visit Chief Complaint LEFT LEG R/O DVT Chief Complaint Admit Date stemi October 11, 2024 9:12a m stemi October 11, 2024 10:26 am Reason for Visit Admit Date Chest pain October 11, 2024 9:12a m Atrial fibrillation with RVR October 11 9:12am Chief Complaint Admit Date stemi October 11, 2024 10:20 am stemi October 11, 2024 10:26 am stemi October 11, 2024 1:01p m stemi October 12, 2024 8:39a m stemi October 12, 2024 9:00a m Reason for Visit Admit Date Chest pain October 11, 2024 10:20 am Non-ST elevation GA (NSTEMI) October 11 10:20am Acute on chronic diastolic (congestive) heart failure October 11, 2024 10:20am Essential (primary) hypertension October 10:20am Malignant neoplasm of left breast, estro gen receptor positive October 11, 2024 10:20am RONALDO (obstructive sleep apnea) October 11, 2024 10:20am Paroxysmal atrial fibrillation October 11, 2024 10:20am Atrial fibrillation with RVR October 11 10:20am Additional Source Comments INFORMATION SOURCE (unrecogn ized section and content) DATE CREATED AUTHOR 02/16/[address] [facility] DATE CREATED AUTHOR AUTHOR'S ORGANIZ ATION 04/14/2022 [facility] DATE CREATED AUTHOR AUTHOR'S ORGANIZ ATION 11/16/2024 [facility] DATE CREATED AUTHOR AUTHOR'S ORGANIZ ATION 01/30/2025 [facility] Source Comments (unrecognize d section and content) In the event this informatio n is protected by the Federal Confidentiality of Alcohol and Drug Abuse Patient Records regulations: The Federal rules restrict any use of the information to criminally investigate or prosecute any alcohol or drug abuse patient.[facility] the event this information is protected by the Federal Confidentiality of Alcohol and Drug Abuse Patient Records regulations: The Federal rules restrict any use of the information to criminally investigate or prosecute any alcohol or drug abuse patient.[facility] Hospital[facility] the event this information is protected by the Federal Confidentiality of Alcohol and Drug Abuse Patient Records regulations: The Federal rules restrict any use of the information to criminally investigate or prosecute any alcohol or drug abuse patient.[facility] Hospital[facility] the event this information is protected by the Federal Confidentiality of Alcohol and Drug Abuse Patient Records regulations: The Federal rules restrict any use of the information to criminally investigate or prosecute any alcohol or drug abuse patient.[facility] Hospital[facility] the event this information is protected by the Federal Confidentiality of Alcohol and Drug Abuse Patient Records regulations: The Federal rules restrict any use of the information to criminally investigate or prosecute any alcohol or drug abuse patient.[facility] Hospital[facility] the event this information is protected by the Federal Confidentiality of Alcohol and Drug Abuse Patient Records regulations: The Federal rules restrict any use of the information to criminally investigate or prosecute any alcohol or drug abuse patient.[facility] Hospital[facility] the event this information is protected by the Federal Confidentiality of Alcohol and Drug Abuse Patient Records regulations: The Federal rules restrict any use of the information to criminally investigate or prosecute any alcohol or drug abuse patient.[facility] Hospital[facility] the event this information is protected by the Federal Confidentiality of Alcohol and Drug Abuse Patient Records regulations: The Federal rules restrict any use of the information to criminally investigate or prosecute any alcohol or drug abuse patient.[facility] Hospital[facility] the event this information is protected by the Federal Confidentiality of Alcohol and Drug Abuse Patient Records regulations: The Federal rules restrict any use of the information to criminally investigate or prosecute any alcohol or drug abuse patient.[facility] Hospital[facility] the event this information is protected by the Federal Confidentiality of Alcohol and Drug Abuse Patient Records regulations: The Federal rules restrict any use of the information to criminally investigate or prosecute any alcohol or drug abuse patient.[facility] Hospital[facility] the event this information is protected by the Federal Confidentiality of Alcohol and Drug Abuse Patient Records regulations: The Federal rules restrict any use of the information to criminally investigate or prosecute any alcohol or drug abuse patient.[facility] Hospital[facility] the event this information is protected by the Federal Confidentiality of Alcohol and Drug Abuse Patient Records regulations: The Federal rules restrict any use of the information to criminally investigate or prosecute any alcohol or drug abuse patient.[facility] Hospital[facility] the event this information is protected by the Federal Confidentiality of Alcohol and Drug Abuse Patient Records regulations: The Federal rules restrict any use of the information to criminally investigate or prosecute any alcohol or drug abuse patient.[facility] Hospital[facility] the event this information is protected by the Federal Confidentiality of Alcohol and Drug Abuse Patient Records regulations: The Federal rules restrict any use of the information to criminally investigate or prosecute any alcohol or drug abuse patient.[facility] Hospital[facility] the event this information is protected by the Federal Confidentiality of Alcohol and Drug Abuse Patient Records regulations: The Federal rules restrict any use of the information to criminally investigate or prosecute any alcohol or drug abuse patient.[facility] Hospital[facility] the event this information is protected by the Federal Confidentiality of Alcohol and Drug Abuse Patient Records regulations: The Federal rules restrict any use of the information to criminally investigate or prosecute any alcohol or drug abuse patient.[facility] HospitalIn the event this information is protected by the Federal Confidentiality of Alcohol and Drug Abuse Patient Records regulations: The Federal rules restrict any use of the information to criminally investigate or prosecute any alcohol or drug abuse patient.[facility] HospitalIn the event this information is protected by the Federal Confidentiality of Alcohol and Drug Abuse Patient Records regulations: The Federal rules restrict any use of the information to criminally investigate or prosecute any alcohol or drug abuse patient.[facility] HospitalIn the event this information is protected by the Federal Confidentiality of Alcohol and Drug Abuse Patient Records regulations: The Federal rules restrict any use of the information to criminally investigate or prosecute any alcohol or drug abuse patient.[facility] HospitalIn the event this information is protected by the Federal Confidentiality of Alcohol and Drug Abuse Patient Records regulations: The Federal rules restrict any use of the information to criminally investigate or prosecute any alcohol or drug abuse patient.[facility] HospitalIn the event this information is protected by the Federal Confidentiality of Alcohol and Drug Abuse Patient Records regulations: The Federal rules restrict any use of the information to criminally investigate or prosecute any alcohol or drug abuse patient.[facility] HospitalIn the event this information is protected by the Federal Confidentiality of Alcohol and Drug Abuse Patient Records regulations: The Federal rules restrict any use of the information to criminally investigate or prosecute any alcohol or drug abuse patient.[facility] HospitalIn the event this information is protected by the Federal Confidentiality of Alcohol and Drug Abuse Patient Records regulations: The Federal rules restrict any use of the information to criminally investigate or prosecute any alcohol or drug abuse patient.[facility] HospitalIn the event this information is protected by the Federal Confidentiality of Alcohol and Drug Abuse Patient Records regulations: The Federal rules restrict any use of the information to criminally investigate or prosecute any alcohol or drug abuse patient.[facility] HospitalIn the event this information is protected by the Federal Confidentiality of Alcohol and Drug Abuse Patient Records regulations: The Federal rules restrict any use of the information to criminally investigate or prosecute any alcohol or drug abuse patient.[facility] HospitalIn the event this information is protected by the Federal Confidentiality of Alcohol and Drug Abuse Patient Records regulations: The Federal rules restrict any use of the information to criminally investigate or prosecute any alcohol or drug abuse patient.[facility] HospitalIn the event this information is protected by the Federal Confidentiality of Alcohol and Drug Abuse Patient Records regulations: The Federal rules restrict any use of the information to criminally investigate or prosecute any alcohol or drug abuse patient.[facility] HospitalIn the event this information is protected by the Federal Confidentiality of Alcohol and Drug Abuse Patient Records regulations: The Federal rules restrict any use of the information to criminally investigate or prosecute any alcohol or drug abuse patient.[facility] HospitalIn the event this information is protected by the Federal Confidentiality of Alcohol and Drug Abuse Patient Records regulations: The Federal rules restrict any use of the information to criminally investigate or prosecute any alcohol or drug abuse patient.[facility] HospitalIn the event this information is protected by the Federal Confidentiality of Alcohol and Drug Abuse Patient Records regulations: The Federal rules restrict any use of the information to criminally investigate or prosecute any alcohol or drug abuse patient.[facility] HospitalIn the event this information is protected by the Federal Confidentiality of Alcohol and Drug Abuse Patient Records regulations: The Federal rules restrict any use of the information to criminally investigate or prosecute any alcohol or drug abuse patient.[facility] HospitalIn the event this information is protected by the Federal Confidentiality of Alcohol and Drug Abuse Patient Records regulations: The Federal rules restrict any use of the information to criminally investigate or prosecute any alcohol or drug abuse patient.[facility] HospitalIn the event this information is protected by the Federal Confidentiality of Alcohol and Drug Abuse Patient Records regulations: The Federal rules restrict any use of the information to criminally investigate or prosecute any alcohol or drug abuse patient.[facility] HospitalIn the event this information is protected by the Federal Confidentiality of Alcohol and Drug Abuse Patient Records regulations: The Federal rules restrict any use of the information to criminally investigate or prosecute any alcohol or drug abuse patient.[facility] HospitalIn the event this information is protected by the Federal Confidentiality of Alcohol and Drug Abuse Patient Records regulations: The Federal rules restrict any use of the information to criminally investigate or prosecute any alcohol or drug abuse patient.[facility] HospitalIn the event this information is protected by the Federal Confidentiality of Alcohol and Drug Abuse Patient Records regulations: The Federal rules restrict any use of the information to criminally investigate or prosecute any alcohol or drug abuse patient.[facility] HospitalIn the event this information is protected by the Federal Confidentiality of Alcohol and Drug Abuse Patient Records regulations: The Federal rules restrict any use of the information to criminally investigate or prosecute any alcohol or drug abuse patient.[facility] HospitalIn the event this information is protected by the Federal Confidentiality of Alcohol and Drug Abuse Patient Records regulations: The Federal rules restrict any use of the information to criminally investigate or prosecute any alcohol or drug abuse patient.[facility] HospitalIn the event this information is protected by the Federal Confidentiality of Alcohol and Drug Abuse Patient Records regulations: The Federal rules restrict any use of the information to criminally investigate or prosecute any alcohol or drug abuse patient.[facility] HospitalIn the event this information is protected by the Federal Confidentiality of Alcohol and Drug Abuse Patient Records regulations: The Federal rules restrict any use of the information to criminally investigate or prosecute any alcohol or drug abuse patient.[facility] HospitalIn the event this information is protected by the Federal Confidentiality of Alcohol and Drug Abuse Patient Records regulations: The Federal rules restrict any use of the information to criminally investigate or prosecute any alcohol or drug abuse patient.[facility] HospitalIn the event this information is protected by the Federal Confidentiality of Alcohol and Drug Abuse Patient Records regulations: The Federal rules restrict any use of the information to criminally investigate or prosecute any alcohol or drug abuse patient.[facility] HospitalIn the event this information is protected by the Federal Confidentiality of Alcohol and Drug Abuse Patient Records regulations: The Federal rules restrict any use of the information to criminally investigate or prosecute any alcohol or drug abuse patient.[facility] HospitalIn the event this information is protected by the Federal Confidentiality of Alcohol and Drug Abuse Patient Records regulations: The Federal rules restrict any use of the information to criminally investigate or prosecute any alcohol or drug abuse patient.[facility] HospitalIn the event this information is protected by the Federal Confidentiality of Alcohol and Drug Abuse Patient Records regulations: The Federal rules restrict any use of the information to criminally investigate or prosecute any alcohol or drug abuse patient.[facility] HospitalIn the event this information is protected by the Federal Confidentiality of Alcohol and Drug Abuse Patient Records regulations: The Federal rules restrict any use of the information to criminally investigate or prosecute any alcohol or drug abuse patient.[facility] HospitalIn the event this information is protected by the Federal Confidentiality of Alcohol and Drug Abuse Patient Records regulations: The Federal rules restrict any use of the information to criminally investigate or prosecute any alcohol or drug abuse patient.[facility] HospitalIn the event this information is protected by the Federal Confidentiality of Alcohol and Drug Abuse Patient Records regulations: The Federal rules restrict any use of the information to criminally investigate or prosecute any alcohol or drug abuse patient.[facility] HospitalIn the event this information is protected by the Federal Confidentiality of Alcohol and Drug Abuse Patient Records regulations: The Federal rules restrict any use of the information to criminally investigate or prosecute any alcohol or drug abuse patient.[facility] HospitalIn the event this information is protected by the Federal Confidentiality of Alcohol and Drug Abuse Patient Records regulations: The Federal rules restrict any use of the information to criminally investigate or prosecute any alcohol or drug abuse patient.[facility] HospitalIn the event this information is protected by the Federal Confidentiality of Alcohol and Drug Abuse Patient Records regulations: The Federal rules restrict any use of the information to criminally investigate or prosecute any alcohol or drug abuse patient.[facility] HospitalIn the event this information is protected by the Federal Confidentiality of Alcohol and Drug Abuse Patient Records regulations: The Federal rules restrict any use of the information to criminally investigate or prosecute any alcohol or drug abuse patient.[facility] HospitalIn the event this information is protected by the Federal Confidentiality of Alcohol and Drug Abuse Patient Records regulations: The Federal rules restrict any use of the information to criminally investigate or prosecute any alcohol or drug abuse patient.[facility] HospitalIn the event this information is protected by the Federal Confidentiality of Alcohol and Drug Abuse Patient Records regulations: The Federal rules restrict any use of the information to criminally investigate or prosecute any alcohol or drug abuse patient.[facility] HospitalIn the event this information is protected by the Federal Confidentiality of Alcohol and Drug Abuse Patient Records regulations: The Federal rules restrict any use of the information to criminally investigate or prosecute any alcohol or drug abuse patient.[facility] HospitalIn the event this information is protected by the Federal Confidentiality of Alcohol and Drug Abuse Patient Records regulations: The Federal rules restrict any use of the information to criminally investigate or prosecute any alcohol or drug abuse patient.[facility] HospitalIn the event this information is protected by the Federal Confidentiality of Alcohol and Drug Abuse Patient Records regulations: The Federal rules restrict any use of the information to criminally investigate or prosecute any alcohol or drug abuse patient.[facility] HospitalIn the event this information is protected by the Federal Confidentiality of Alcohol and Drug Abuse Patient Records regulations: The Federal rules restrict any use of the information to criminally investigate or prosecute any alcohol or drug abuse patient.[facility] HospitalIn the event this information is protected by the Federal Confidentiality of Alcohol and Drug Abuse Patient Records regulations: The Federal rules restrict any use of the information to criminally investigate or prosecute any alcohol or drug abuse patient.[facility] HospitalIn the event this information is protected by the Federal Confidentiality of Alcohol and Drug Abuse Patient Records regulations: The Federal rules restrict any use of the information to criminally investigate or prosecute any alcohol or drug abuse patient.[facility] HospitalIn the event this information is protected by the Federal Confidentiality of Alcohol and Drug Abuse Patient Records regulations: The Federal rules restrict any use of the information to criminally investigate or prosecute any alcohol or drug abuse patient.[facility] HospitalIn the event this information is protected by the Federal Confidentiality of Alcohol and Drug Abuse Patient Records regulations: The Federal rules restrict any use of the information to criminally investigate or prosecute any alcohol or drug abuse patient.[facility] HospitalIn the event this information is protected by the Federal Confidentiality of Alcohol and Drug Abuse Patient Records regulations: The Federal rules restrict any use of the information to criminally investigate or prosecute any alcohol or drug abuse patient.[facility] HospitalIn the event this information is protected by the Federal Confidentiality of Alcohol and Drug Abuse Patient Records regulations: The Federal rules restrict any use of the information to criminally investigate or prosecute any alcohol or drug abuse patient.[facility] HospitalIn the event this information is protected by the Federal Confidentiality of Alcohol and Drug Abuse Patient Records regulations: The Federal rules restrict any use of the information to criminally investigate or prosecute any alcohol or drug abuse patient.[facility] HospitalIn the event this information is protected by the Federal Confidentiality of Alcohol and Drug Abuse Patient Records regulations: The Federal rules restrict any use of the information to criminally investigate or prosecute any alcohol or drug abuse patient.[facility] HospitalIn the event this information is protected by the Federal Confidentiality of Alcohol and Drug Abuse Patient Records regulations: The Federal rules restrict any use of the information to criminally investigate or prosecute any alcohol or drug abuse patient.[facility] HospitalIn the event this information is protected by the Federal Confidentiality of Alcohol and Drug Abuse Patient Records regulations: The Federal rules restrict any use of the information to criminally investigate or prosecute any alcohol or drug abuse patient.[facility] HospitalIn the event this information is protected by the Federal Confidentiality of Alcohol and Drug Abuse Patient Records regulations: The Federal rules restrict any use of the information to criminally investigate or prosecute any alcohol or drug abuse patient.[facility] HospitalIn the event this information is protected by the Federal Confidentiality of Alcohol and Drug Abuse Patient Records regulations: The Federal rules restrict any use of the information to criminally investigate or prosecute any alcohol or drug abuse patient.[facility] HospitalIn the event this information is protected by the Federal Confidentiality of Alcohol and Drug Abuse Patient Records regulations: The Federal rules restrict any use of the information to criminally investigate or prosecute any alcohol or drug abuse patient.[facility] HospitalIn the event this information is protected by the Federal Confidentiality of Alcohol and Drug Abuse Patient Records regulations: The Federal rules restrict any use of the information to criminally investigate or prosecute any alcohol or drug abuse patient.[facility] HospitalIn the event this information is protected by the Federal Confidentiality of Alcohol and Drug Abuse Patient Records regulations: The Federal rules restrict any use of the information to criminally investigate or prosecute any alcohol or drug abuse patient.[facility] HospitalIn the event this information is protected by the Federal Confidentiality of Alcohol and Drug Abuse Patient Records regulations: The Federal rules restrict any use of the information to criminally investigate or prosecute any alcohol or drug abuse patient.[facility] HospitalIn the event this information is protected by the Federal Confidentiality of Alcohol and Drug Abuse Patient Records regulations: The Federal rules restrict any use of the information to criminally investigate or prosecute any alcohol or drug abuse patient.[facility] HospitalIn the event this information is protected by the Federal Confidentiality of Alcohol and Drug Abuse Patient Records regulations: The Federal rules restrict any use of the information to criminally investigate or prosecute any alcohol or drug abuse patient.[facility] HospitalIn the event this information is protected by the Federal Confidentiality of Alcohol and Drug Abuse Patient Records regulations: The Federal rules restrict any use of the information to criminally investigate or prosecute any alcohol or drug abuse patient.[facility] HospitalIn the event this information is protected by the Federal Confidentiality of Alcohol and Drug Abuse Patient Records regulations: The Federal rules restrict any use of the information to criminally investigate or prosecute any alcohol or drug abuse patient.[facility] HospitalIn the event this information is protected by the Federal Confidentiality of Alcohol and Drug Abuse Patient Records regulations: The Federal rules restrict any use of the information to criminally investigate or prosecute any alcohol or drug abuse patient.[facility] HospitalIn the event this information is protected by the Federal Confidentiality of Alcohol and Drug Abuse Patient Records regulations: The Federal rules restrict any use of the information to criminally investigate or prosecute any alcohol or drug abuse patient.[facility] Care Teams (unrecognized sec tion and content) Publicity Manager Relationship Specialty Start Date End Date Chip Arreola MD [address] [place], [place] [id number] PCP - General Family Practice 03/21/16 Inocente Romero [address] [id number] Aircraft Engine Specialist Cardiology 09/09/17 Antonio Cagle MD, PhD [address] [address] Primary Staff Physician Cardiology 06/23/18 David Galo MD [address] [address] Consulting Infectious Diseases 03/08/20 Dayanna Lewis MD [address] [place], [place] [id number] Consulting Orthopedics 03/08/20 Chip Arreola MD [address] [place], [place] 724151 Home Care Physician Family Practice 03/08/20 Dayanna Lewis MD [address] [place] [address] Referring Orthopedics 03/09/20 Bridgett Guzman, RN [address] [place], [place] [id number] Hat And Cap Opener Post Acute Care 03/09/20 Publicity Manager Relationship Specialty Start Date End Date Chip Arreola MD [address] [place] [address] PCP - General Family Practice 03/21/16 Inocente Romero [address] [address] Aircraft Engine Specialist Cardiology 09/09/17 Antonio Cagle MD, PhD [address] [address] Primary Staff Physician Cardiology 06/23/18 David Galo MD [address] [address] Consulting Infectious Diseases 03/08/20 Dayanna Lewis MD [address] [place] [address] Consulting Orthopedics 03/08/20 Chip Arreola MD [address] [place], [place] [id number] Home Care Physician Family Practice 03/08/20 Dayanna Lewis MD [address] [place] [address] Referring Orthopedics 03/09/20 Bridgett Guzman, RN [address] [place], [place] [id number] Hat And Cap Opener Post Acute Care 03/09/20 Publicity Manager Relationship Specialty Start Date End Date Chip Arreola MD [address] [place], [place] [id number] PCP - General Family Practice 03/21/16 Inocente Romero [address] [place] [address] Aircraft Engine Specialist Cardiology 09/09/17 Antonio Cagle MD, PhD [address] [place] [address] Primary Staff Physician Cardiology 06/23/18 David Galo MD [address] [place] [address] Consulting Infectious Diseases 03/08/20 Dayanna Lewis MD [address] [place], [place] [id number] Consulting Orthopedics 03/08/20 Chip Arreola MD [address] [place], [place] [id number] Home Care Physician Family Practice 03/08/20 Dayanna Lewis MD [address] [place] [address] Referring Orthopedics 03/09/20 Bridgett Guzman RN [address] [place], [place] [id number] Hat And Cap Opener Post Acute Care 03/09/20 Publicity Manager Relationship Specialty Start Date End Date Chip Arreola MD [address] [place], [place] 062511 PCP - General Family Practice 03/21/16 Inocente Romero [address] [address] Aircraft Engine Specialist Cardiology 09/09/17 Antonio Cagle MD, PhD [address] [place] [address] Primary Staff Physician Cardiology 06/23/18 David Galo MD [address] [place] [address] Consulting Infectious Diseases 03/08/20 Dayanna Lewis MD [address] [place] [address] Consulting Orthopedics 03/08/20 Chip Arreola MD [address] [place] [address] Home Care Physician Family Practice 03/08/20 Dayanna Lewis MD [address] [place] [address] Referring Orthopedics 03/09/20 Bridgett Guzman RN [address] [place] [address] Hat And Cap Opener Post Acute Care 03/09/20 Publicity Manager Relationship Specialty Start Date End Date Chip Arreola MD [address] [place], [place] 359231 PCP - General Family Practice 03/21/16 Nick, Inocente S [address] [address] Aircraft Engine Specialist Cardiology 09/09/17 Antonio Cagle MD, PhD [address] [place] [address] Primary Staff Physician Cardiology 06/23/18 David Galo MD [address] [place] [address] Consulting Infectious Diseases 03/08/20 Dayanna Lewis MD [address] [place] [address] Consulting Orthopedics 03/08/20 Chip Arreola MD [address] [place], [place] [id number] Home Care Physician Family Practice 03/08/20 Dayanna Lewis MD [address] [place] [address] Referring Orthopedics 03/09/20 Bridgett Guzman RN [address] [place] [address] Hat And Cap Opener Post Acute Care 03/09/20 Publicity Manager Relationship Specialty Start Date End Date Chip Arreloa MD [address] [place], [place] [id number] PCP - General Family Practice 03/21/16 Nick, Inocente S [address] [address] Aircraft Engine Specialist Cardiology 09/09/17 Antonio Cagle MD, PhD [address] [place] [address] Primary Staff Physician Cardiology 06/23/18 David aGlo MD [address] [address] Consulting Infectious Diseases 03/08/20 Dayanna Lewis MD [address] [place] [address] Consulting Orthopedics 03/08/20 Chip Arreola MD [address] [place], [place] [id number] Home Care Physician Family Practice 03/08/20 Dayanna Lewis MD [address] [place] [address] Referring Orthopedics 03/09/20 Bridgett Guzman RN [address] [place], [place] [id number] Hat And Cap Opener Post Acute Care 03/09/20 Publicity Manager Relationship Specialty Start Date End Date Chip Arroela MD [address] [place], [place] [id number] PCP - General Family Practice 03/21/16 Inocente Romero [address] [address] Aircraft Engine Specialist Cardiology 09/09/17 Antonio Cagle MD, PhD [address] [place] [address] Primary Staff Physician Cardiology 06/23/18 David Galo MD [address] [address] Consulting Infectious Diseases 03/08/20 Dayanna Lewis MD [address] [place], [place] [id number] Consulting Orthopedics 03/08/20 Chip Arreola MD [address] [place], [place] [id number] Home Care Physician Family Practice 03/08/20 Dayanna Lewis MD [address] [place], [place] 1043895 Referring Orthopedics 03/09/20 Bridgett Guzman RN [address] [place], [place] [phone] Hat And Cap Opener Post Acute Care 03/09/20 Publicity Manager Relationship Specialty Start Date End Date Chip Arreola MD [address] [place], [place] [id number] PCP - General Family Practice 03/21/16 Inocente Romero [address] [place] [address] Aircraft Engine Specialist Cardiology 09/09/17 Antonio Cagle MD, PhD [address] [place] [address] Primary Staff Physician Cardiology 06/23/18 David aGlo MD [address] [place] [address] Consulting Infectious Diseases 03/08/20 Dayanna Lewis MD [address] [place], [place] [id number] Consulting Orthopedics 03/08/20 Chip Arreola MD [address] [place], [place] [id number] Home Care Physician Family Practice 03/08/20 Dayanna Lewis MD [address] [place] [address] Referring Orthopedics 03/09/20 Bridgett Guzman RN [address] [place], [place] [phone] Hat And Cap Opener Post Acute Care 03/09/20 Publicity Manager Relationship Specialty Start Date End Date Chip Arreola MD [address] [place], [place] 149711 PCP - General Family Practice 03/21/16 Inocente Romero [address] [id number] Aircraft Engine Specialist Cardiology 09/09/17 Antonio Cagle MD, PhD [address] [place] [address] Primary Staff Physician Cardiology 06/23/18 David Galo MD [address] [place] [address] Consulting Infectious Diseases 03/08/20 Dayanna Lewis MD [address] [place] [address] Consulting Orthopedics 03/08/20 Chip Arreola MD [address] [place] [address] Home Care Physician Family Practice 03/08/20 Dayanna Lewis MD [address] [place] [address] Referring Orthopedics 03/09/20 Bridgett Guzman RN [address] [place], [place] 6169431 Hat And Cap Opener Post Acute Care 03/09/20 Publicity Manager Relationship Specialty Start Date End Date Chip Arreola MD [address] [place] [address] PCP - General Family Practice 03/21/16 Nick, Roscoe S [address] [address] Aircraft Engine Specialist Cardiology 09/09/17 Antonio Cagle MD, PhD [address] [place] [address] Primary Staff Physician Cardiology 06/23/18 David Galo MD [address] [place] [address] Consulting Infectious Diseases 03/08/20 Dayanna Lewis MD [address] [place] [address] Consulting Orthopedics 03/08/20 Chip Arreola MD [address] [place] [address] Home Care Provider Family Practice 03/08/20 Dayanna Lewis MD [address] [place] [address] Referring Orthopedics 03/09/20 Bridgett Guzman RN [address] [place], [place] 1455731 Hat And Cap Opener Post Acute Care 03/09/20 Publicity Manager Relationship Specialty Start Date End Date Chip Arreola MD [address] [place] [address] PCP - General Family Medicine 03/21/16 Nick, Roscoe S [address] [address] Aircraft Engine Specialist Cardiology 09/09/17 Antonio Cagle MD, PhD [address] [place] [address] Primary Staff Physician Cardiology 06/23/18 David Galo MD [address] [address] Consulting Infectious Diseases 03/08/20 Dayanna Lewis MD [address] [place] [address] Consulting Orthopedics 03/08/20 Chip Arreola MD [address] [place], [place] [id number] Home Care Provider Family Medicine 03/08/20 Dayanna Lewis MD [address] [place] [address] Referring Orthopedics 03/09/20 Bridgett Guzman RN [address] [place], [place] [phone] Hat And Cap Opener Post Acute Care 03/09/20 Publicity Manager Relationship Specialty Start Date End Date Chip Arreola MD [address] [place], [place] [id number] PCP - General Family Medicine 03/21/16 Inocente Romero [address] [address] Aircraft Engine Specialist Cardiology 09/09/17 Antonio Cagle MD, PhD [address] [address] Primary Staff Physician Cardiology 06/23/18 David Galo MD [address] [address] Consulting Infectious Diseases 03/08/20 Dayanna Lewis MD [address] [place] [address] Consulting Orthopedics 03/08/20 Chip Arreola MD [address] [place] [address] Home Care Provider Family Medicine 03/08/20 Dayanna Lewis MD [address] [place] [address] Referring Orthopedics 03/09/20 Bridgett Guzman RN [address] [place], [place] [phone] Hat And Cap Opener Post Acute Care 03/09/20 Publicity Manager Relationship Specialty Start Date End Date Chip Arreola MD [address] [place], [place] [id number] PCP - General Family Medicine 03/21/16 Inocente Romero [address] [facility] [address] [place] [address] Aircraft Engine Specialist Cardiology 09/09/17 Antonio Cagle MD, PhD [address] [place] [address] Primary Staff Physician Cardiology 06/23/18 David Galo MD [address] [place] [address] Consulting Infectious Diseases 03/08/20 Dayanna Lewis MD [address] [place], [place] [id number] Consulting Orthopedics 03/08/20 Chip Arreola MD [address] [place], [place] [id number] Home Care Provider Family Medicine 03/08/20 Dayanna Lewis MD [address] [place] [address] Referring Orthopedics 03/09/20 Bridgett Guzman RN [address] [place], [place] [phone] Hat And Cap Opener Post Acute Care 03/09/20 Publicity Manager Relationship Specialty Start Date End Date Chip Arreola MD [address] [place], [place] 319791 PCP - General Family Medicine 03/21/16 Inocente Romero [address] [facility] [address] [place], [place] [address] [id number] Aircraft Engine Specialist Cardiology 09/09/17 Antonio Cagle MD, PhD [address] [place] [address] Primary Staff Physician Cardiology 06/23/18 David Galo MD [address] [place] [address] Consulting Infectious Diseases 03/08/20 Dayanna Lewsi MD [address] [place] [address] Consulting Orthopedics 03/08/20 Chip Arreola MD [address] [place] [address] Home Care Provider Family Medicine 03/08/20 Dayanna Lewis MD [address] [place] [address] Referring Orthopedics 03/09/20 Bridgett Guzman RN [address] [place], [place] [id number] Hat And Cap Opener Post Acute Care 03/09/20 Publicity Manager Relationship Specialty Start Date End Date No, Physician [facility] PCP - General 04/14/22 Publicity Manager Relationship Specialty Start Date End Date Chip Arreola MD [address] [place], [place] 036631 PCP - General Family Medicine 03/21/16 Nick, Roscoe S [address] [address] Aircraft Engine Specialist Cardiology 09/09/17 Antonio Cagle MD, PhD [address] [place] [address] Primary Staff Physician Cardiology 06/23/18 David Galo MD [address] [place] [address] Consulting Infectious Diseases 03/08/20 Dayanna Lewis MD [address] [place] [address] Consulting Orthopedics 03/08/20 Chip Arreola MD [address] [place] [address] Home Care Provider Family Medicine 03/08/20 Dayanna eLwis MD [address] [place] [address] Referring Orthopedics 03/09/20 Bridgett Guzman RN [address]11 [place] [address] Hat And Cap Opener Post Acute Care 03/09/20 Publicity Manager Relationship Specialty Start Date End Date Chip Arreola MD [address] [place], [place] [id number] PCP - General Family Medicine 03/21/16 Nick, Roscoe S [address] [address] Aircraft Engine Specialist Cardiology 09/09/17 Antonio Cagle MD, PhD [address] [place] [address] Primary Staff Physician Cardiology 06/23/18 David Galo MD [address] [address] Consulting Infectious Diseases 03/08/20 Dayanna Lewis MD [address] [place] [address] Consulting Orthopedics 03/08/20 Chip Arreola MD [address] [place], [place] [id number] Home Care Provider Family Medicine 03/08/20 Dayanna Lewis MD [address] [place] [address] Referring Orthopedics 03/09/20 Bridgett Guzman RN [address] [place], [place] [id number] Hat And Cap Opener Post Acute Care 03/09/20 Publicity Manager Relationship Specialty Start Date End Date Chip Arreola MD [address] [place], [place] [id number] PCP - General Family Medicine 03/21/16 Inocente Romero [address] [address] Aircraft Engine Specialist Cardiology 09/09/17 Antonio Cagle MD, PhD [address] [place] [address] Primary Staff Physician Cardiology 06/23/18 David Galo MD [address] [address] Consulting Infectious Diseases 03/08/20 Dayanna eLwis MD [address] [place], [place] [id number] Consulting Orthopedics 03/08/20 Chip Arreola MD [address] [place], [place] 218171 Home Care Provider Family Medicine 03/08/20 Dayanna Lewis MD [address] [place], [place] [id number] Referring Orthopedics 03/09/20 Bridgett Guzman, RN [address] [place] [address] Hat And Cap Opener Post Acute Care 03/09/20 Publicity Manager Relationship Specialty Start Date End Date Chip Arreola MD [address] [place], [place] [id number] PCP - General Family Medicine 03/21/16 Inocente Romero MD [address] [id number] Aircraft Engine Specialist Cardiology 09/09/17 Antonio Cagle MD, PhD [address] [place] [address] Primary Staff Physician Cardiology 06/23/18 David Galo MD [address] [place] [address] Consulting Infectious Diseases 03/08/20 Dayanna Lewis MD [address] [place], [place] 4025395 Consulting Orthopedics 03/08/20 Chip Arreola MD [address] [place], [place] 093721 Home Care Provider Family Medicine 03/08/20 Dayanna Lewis MD [address] [place], [place] 1171095 Referring Orthopedics 03/09/20 Bridgett Guzman, RN [address] [place], [place] 9162731 Hat And Cap Opener Post Acute Care 03/09/20 Publicity Manager Relationship Specialty Start Date End Date Chip Arreola MD 174 [place], [place] [id number] PCP - General Family Medicine 03/21/16 Inocente Romero MD [address] 618041 Aircraft Engine Specialist Cardiology 09/09/17 Antonio Cagle MD, PhD [address] [place] [address] Primary Staff Physician Cardiology 06/23/18 David Galo MD [address] [place] [address] Consulting Infectious Diseases 03/08/20 Dayanna Lewis MD [address] [place], [place] [id number] Consulting Orthopedics 03/08/20 Chip Arreola MD [address] [place], [place] 20133691 Home Care Provider Family Medicine 03/08/20 Dayanna Lewis MD [address] [place] [address] Referring Orthopedics 03/09/20 Bridgett Guzman, RN [address] [place], [place] 1365931 Hat And Cap Opener Post Acute Care 03/09/20 Publicity Manager Relationship Specialty Start Date End Date Chip Arreola MD [address] [place], [place] 616001 PCP - General Family Medicine 03/21/16 Inocente Romero MD [address] 141061 Aircraft Engine Specialist Cardiology 09/09/17 Antonio Cagle MD, PhD [address] [place] [address] Primary Staff Physician Cardiology 06/23/18 David Galo MD [address] [place] [address] Consulting Infectious Diseases 03/08/20 Dayanna Lewis MD [address] [place] [address] Consulting Orthopedics 03/08/20 Chip Arreola MD [address] [place], [place] 75867691 Home Care Provider Family Medicine 03/08/20 Dayanna Lewis MD [address] [place] [address] Referring Orthopedics 03/09/20 Bridgett Guzman, RN [address] [place] [address] Hat And Cap Opener Post Acute Care 03/09/20 Team Status: Active Member Role Status Dates Dr. Chip Arreola MD Family Provider Active Dr. Chip Arreola MD Primary Care Provider Active Team Status: Inactive Member Role Status Dates Dr. Chip Arreola MD Primary Care Provi caleb, Attending Provider, Referring Provider Active Publicity Manager Relationship Specialty Start Date End Date Chip Arreola MD [address] [place], [place] 332551 PCP - General Family Medicine 03/21/16 Inocente Romero MD [address] [id number] Aircraft Engine Specialist Cardiology 09/09/17 Antonio Cagle MD, PhD [address] [place] [address] Primary Staff Physician Cardiology 06/23/18 David Galo MD [address] [place] [address] Consulting Infectious Diseases 03/08/20 Dayanna Lewis MD [address] [place] [address] Consulting Orthopedics 03/08/20 Chip Arreola MD [address] [place], [place] [phone] Home Care Provider Family Medicine 03/08/20 Dayanna Lewis MD [address] [place] [id number] Referring Orthopedics 03/09/20 Bridgett Guzman RN [address] [place], [place] 5443131 Hat And Cap Opener Post Acute Care 03/09/20 Publicity Manager Relationship Specialty Start Date End Date Chip Arreola MD [address] [place], [place] 340591 PCP - General Family Medicine 03/21/16 Inocente Romero MD [address] [id number] Aircraft Engine Specialist Cardiology 09/09/17 Antonio Cagle MD, PhD [address] [place] [address] Primary Staff Physician Cardiology 06/23/18 David Galo MD [address] [place] [address] Consulting Infectious Diseases 03/08/20 Dayanna Lewis MD [address] [place] [address] Consulting Orthopedics 03/08/20 Chip Arreola MD [address] [place], [place] 43857691 Home Care Provider Family Medicine 03/08/20 Dayanna Lewis MD [address] [place] [address] Referring Orthopedics 03/09/20 Bridgett Guzman RN [address] [place] [address] Hat And Cap Opener Post Acute Care 03/09/20 Publicity Manager Relationship Specialty Start Date End Date Chip Arreola MD [address] [place], [place] [id number] PCP - General Family Medicine 03/21/16 Inocente Romero MD [address] 045491 Aircraft Engine Specialist Cardiology 09/09/17 Antonio Cagle MD, PhD [address] [place] [address] Primary Staff Physician Cardiology 06/23/18 David Galo MD [address] [place] [address] Consulting Infectious Diseases 03/08/20 Dayanna Lewis MD [address] [place] [address] Consulting Orthopedics 03/08/20 Chip Arreola MD [address] [place], [place] 976641 Home Care Provider Family Medicine 03/08/20 Dayanna Lewis MD [address] [place] [address] Referring Orthopedics 03/09/20 Bridgett Guzman RN [address] [place] [address] Hat And Cap Opener Post Acute Care 03/09/20 Publicity Manager Relationship Specialty Start Date End Date Chip Arreola MD [address] [place], [place] [id number] PCP - General Family Medicine 03/21/16 Inocente Romero MD [address] [phone] Aircraft Engine Specialist Cardiology 09/09/17 Antonio Cagle MD, PhD [address] [place] [address] Primary Staff Physician Cardiology 06/23/18 David Galo MD [address] [place] [address] Consulting Infectious Diseases 03/08/20 Dayanna Lewis MD [address] [place], [place] 4490195 Consulting Orthopedics 03/08/20 Chip Arreola MD [address] [place], [place] 97280691 Home Care Provider Family Medicine 03/08/20 Dayanna Lewis MD [address] [place] [address] Referring Orthopedics 03/09/20 Bridgett Guzman, RN [address] [place], [place] 6078631 Hat And Cap Opener Post Acute Care 03/09/20 Publicity Manager Relationship Specialty Start Date End Date Chip Arreola MD [address] [place], [place] [id number] PCP - General Family Medicine 03/21/16 Inocente Romero MD [address] 886051 Aircraft Engine Specialist Cardiology 09/09/17 Antonio Cagle MD, PhD [address] [place] [address] Primary Staff Physician Cardiology 06/23/18 David Galo MD [address] [place] [address] Consulting Infectious Diseases 03/08/20 Dayanna Lewis MD [address] [place], [place] 4429295 Consulting Orthopedics 03/08/20 Chip Arreola MD [address] [place] [address] Home Care Provider Family Medicine 03/08/20 Dayanna Lewis MD [address] [place] [address] Referring Orthopedics 03/09/20 Bridgett Guzman RN [address] [place] [address] Hat And Cap Opener Post Acute Care 03/09/20 Publicity Manager Relationship Specialty Start Date End Date Chip Arreola MD [address] [place], [place] [phone] PCP - General Family Medicine 03/21/16 Inocente Romero MD [address] [address] Aircraft Engine Specialist Cardiology 09/09/17 Antonio Cagle MD, PhD [address] [place] [address] Primary Staff Physician Cardiology 06/23/18 David Galo MD [address] [place] [address] Consulting Infectious Diseases 03/08/20 Dayanna Lewis MD [address] [place], [place] 7536295 Consulting Orthopedics 03/08/20 Chip Arreola MD [address] [place], [place] 53411691 Home Care Provider Family Medicine 03/08/20 Dayanna Lewis MD [address] [place] 8087995 Referring Orthopedics 03/09/20 Bridgett Guzman, RN [address] [place] [address] Hat And Cap Opener Post Acute Care 03/09/20 Publicity Manager Relationship Specialty Start Date End Date Chip Arreola MD [address] [place], [place] [id number] PCP - General Family Medicine 03/21/16 Inocente Romero MD [address] 614251 Aircraft Engine Specialist Cardiology 09/09/17 Antonio Cagle MD, PhD [address] [place] [address] Primary Staff Physician Cardiology 06/23/18 David Galo MD [address] [place], [place] 2030695 Consulting Infectious Diseases 03/08/20 Dayanna Lewis MD [address] [place], [place] 9966395 Consulting Orthopedics 03/08/20 Chip Arreola MD [address] [place], [place] 093241 Home Care Provider Family Medicine 03/08/20 Dayanna Lewis MD [address] [place], [place] 8582895 Referring Orthopedics 03/09/20 Bridgett Guzman RN [address] [place], [place] 8016031 Hat And Cap Opener Post Acute Care 03/09/20 Publicity Manager Relationship Specialty Start Date End Date Chip Arreola MD [address] [place], [place] 757101 PCP - General Family Medicine 03/21/16 Inocente Romero MD [address] 504421 Aircraft Engine Specialist Cardiology 09/09/17 Antonio Cagle MD, PhD [address] [place], [place] 0280195 Primary Staff Physician Cardiology 06/23/18 David Galo MD [address] [place], [place] 1055195 Consulting Infectious Diseases 03/08/20 Dayanna Lewis MD [address] [place], [place] 6879095 Consulting Orthopedics 03/08/20 Chip Arreola MD [address] [place], [place] 65791691 Home Care Provider Family Medicine 03/08/20 Dayanna Lewis MD [address] [place], [place] 7085795 Referring Orthopedics 03/09/20 Bridgett Guzman RN [address] [place], [place] 4106031 Hat And Cap Opener Post Acute Care 03/09/20 Publicity Manager Relationship Specialty Start Date End Date Chip Arreola MD [address] [place], [place] 219121 PCP - General Family Medicine 03/21/16 Inocente Romero MD [address] 870321 Aircraft Engine Specialist Cardiology 09/09/17 Antonio Cagle MD, PhD [address] [place] [address] Primary Staff Physician Cardiology 06/23/18 David Galo MD [address] [place], [place] 0021995 Consulting Infectious Diseases 03/08/20 Dayanna Lewis MD [address] [place] [id number] Consulting Orthopedics 03/08/20 Chip Arreola MD [address] [place], [place] 20319691 Home Care Provider Family Medicine 03/08/20 Dayanna Lewis MD [address] [place], [place] 4454395 Referring Orthopedics 03/09/20 Bridgett Guzman, RN [address] [place], [place] 2745931 Hat And Cap Opener Post Acute Care 03/09/20 Publicity Manager Relationship Specialty Start Date End Date Chip Arreola MD [address] [place], [place] [id number] PCP - General Family Medicine 03/21/16 Inocente Romero MD [address] [phone] Aircraft Engine Specialist Cardiology 09/09/17 Antonio Cagle MD, PhD [address] [place], [place] 3716595 Primary Staff Physician Cardiology 06/23/18 David Galo MD [address] [place] [address] Consulting Infectious Diseases 03/08/20 Dayanna Lewis MD [address] [place], [place] 6480595 Consulting Orthopedics 03/08/20 Chip Arreola MD [address] [place], [place] 60717691 Home Care Provider Family Medicine 03/08/20 Dayanna Lewis MD [address] [place], [place] 5689395 Referring Orthopedics 03/09/20 Bridgett Guzman RN [address] [place], [place] 0890431 Hat And Cap Opener Post Acute Care 03/09/20 Publicity Manager Relationship Specialty Start Date End Date Chip Arreola MD [address] [place], [place] [id number] PCP - General Family Medicine 03/21/16 Inocente Romero MD [address] [phone] Aircraft Engine Specialist Cardiology 09/09/17 Antonio Cagle MD, PhD [address] [place], [place] 6819695 Primary Staff Physician Cardiology 06/23/18 David Galo MD [address] [place] [address] Consulting Infectious Diseases 03/08/20 Dayanna Lewis MD [address] [place] [address] Consulting Orthopedics 03/08/20 Chip Arreola MD [address] [place], [place] 054461 Home Care Provider Family Medicine 03/08/20 Dayanna Lewis MD [address] [place] [address] Referring Orthopedics 03/09/20 Bridgett Guzman RN [address] [place] [address] Hat And Cap Opener Post Acute Care 03/09/20 Publicity Manager Relationship Specialty Start Date End Date Chip Arreola MD [address] [place], [place] 331541 PCP - General Family Medicine 03/21/16 Inocente Romero MD [address] [phone] Aircraft Engine Specialist Cardiology 09/09/17 Antonio Cagle MD, PhD [address] [place] [address] Primary Staff Physician Cardiology 06/23/18 Publicity Manager Relationship Specialty Start Date End Date Chip Arreola MD [address] [place], [place] 974791 PCP - General Family Medicine 03/21/16 Inocente Romero MD [address] [phone] Aircraft Engine Specialist Cardiology 09/09/17 Antonio Cagle MD, PhD [address] [place], [place] 1959895 Primary Staff Physician Cardiology 06/23/18 David Galo MD [address] [place], [place] 4206595 Consulting Infectious Diseases 03/08/20 Dayanna Lewis MD [address] [place], [place] 5295595 Consulting Orthopedics 03/08/20 Chip Arreola MD [address] [place], [place] 536151 Home Care Provider Family Medicine 03/08/20 Dayanna Lewis MD [address] [place], [place] 6848195 Referring Orthopedics 03/09/20 Bridgett Guzman RN [address] [place], [place] 4663131 Hat And Cap Opener Post Acute Care 03/09/20 Publicity Manager Relationship Specialty Start Date End Date Chip Arreola MD [address] [place] 234481 PCP - General Family Medicine 03/21/16 Inocente Romero MD [address] 745051 Aircraft Engine Specialist Cardiology 09/09/17 Antonio Cagle MD, PhD [address] [place] [id number] Primary Staff Physician Cardiology 06/23/18 David Galo MD [address] [place], [place] 3898595 Consulting Infectious Diseases 03/08/20 Dayanna Lewis MD [address] [place], [place] 8828695 Consulting Orthopedics 03/08/20 Chip Arreola MD [address] [place], [place] 160631 Home Care Provider Family Medicine 03/08/20 Dayanna Lewis MD [address] [place], [place] 3086395 Referring Orthopedics 03/09/20 Bridgett Guzman, RN [address] [place], [place] 9559031 Hat And Cap Opener Post Acute Care 03/09/20 Publicity Manager Relationship Specialty Start Date End Date Chip Arreola MD [address] [place], [place] 547361 PCP - General Family Medicine 03/21/16 Inocente Romero MD [address] 509001 Aircraft Engine Specialist Cardiology 09/09/17 Antonio Cagle MD, PhD [address] [place], [place] 1724295 Primary Staff Physician Cardiology 06/23/18 David Galo MD [address] [place] [address] Consulting Infectious Diseases 03/08/20 Dayanna Lewis MD [address] [place], [place] 0208795 Consulting Orthopedics 03/08/20 Chip Arreola MD [address] [place], [place] 94268691 Home Care Provider Family Medicine 03/08/20 Dayanna Lewis MD [address] [place], [place] 4897495 Referring Orthopedics 03/09/20 Bridgett Guzman RN [address] [place], [place] 5141331 Hat And Cap Opener Post Acute Care 03/09/20 Emelina Pal, BOOK EDITOR.LAUNDRY MACHINE MECHANIC [address] [place], [place] 149971 Aircraft Engine Specialist Family Medicine 03/15/24 Belkys Mcintyre BOOK EDITOR.LAUNDRY MACHINE MECHANIC [address] [place] [address] Aircraft Engine Specialist Family [facility] 03/15/24 Publicity Manager Relationship Specialty Start Date End Date Chip Arreola MD [address] [place], [place] [id number] PCP - General Family Medicine 03/21/16 Inocente Romero MD [address] 632441 Aircraft Engine Specialist Cardiology 09/09/17 Antonio Cagle MD, PhD [address] [place] [address] Primary Staff Physician Cardiology 06/23/18 David Galo MD [address] [place] [address] Consulting Infectious Diseases 03/08/20 Dayanna Lewis MD [address] [place] [id number] Consulting Orthopedics 03/08/20 Chip Arreola MD [address] [place], [place] 329101 Home Care Provider Family Medicine 03/08/20 Dayanna Lewis MD [address] [place], [place] 8869795 Referring Orthopedics 03/09/20 Bridgett Guzman, RN [address] [place], [place] 6805931 Hat And Cap Opener Post Acute Care 03/09/20 Emelina Pal, BOOK EDITOR.LAUNDRY MACHINE MECHANIC [address] [place], [place] 138211 Aircraft Engine Specialist Family Medicine 03/15/24 Belkys Mcintyre BOOK EDITOR.LAUNDRY MACHINE MECHANIC [address] [place], [place] 461911 Aircraft Engine Specialist Family Medicine 03/15/24 Publicity Manager Relationship Specialty Start Date End Date Chip Arreola MD [address] [place], [place] [phone] PCP - General Family Medicine 03/21/16 Inocente Romero MD [address] [address] Aircraft Engine Specialist Cardiology 09/09/17 Antonio Cagle MD, PhD [address] [place], [place] 3211995 Primary Staff Physician Cardiology 06/23/18 David Galo MD [address] [place] [address] Consulting Infectious Diseases 03/08/20 Dayanna Lewis MD [address] [place], [place] 8911595 Consulting Orthopedics 03/08/20 Chip Arreola MD [address] [place], [place] 967631 Home Care Provider Family Medicine 03/08/20 Dayanna Lewis MD [address] [place], [place] 3037695 Referring Orthopedics 03/09/20 Bridgett Guzman RN [address] [place], [place] 7643531 Hat And Cap Opener Post Acute Care 03/09/20 Emelina Pal, BOOK EDITOR.LAUNDRY MACHINE MECHANIC [address] [place], [place] 752281 Aircraft Engine Specialist Family Medicine 03/15/24 Belkys Mcintyre, BOOK EDITOR.LAUNDRY MACHINE MECHANIC [address] [place], [place] 275101 Aircraft Engine Specialist Family Medicine 03/15/24 Publicity Manager Relationship Specialty Start Date End Date Chip Arreola MD [address] [place], [place] [id number] PCP - General Family Medicine 03/21/16 Inocente Romero MD [address] 017841 Aircraft Engine Specialist Cardiology 09/09/17 Antonio Cagle MD, PhD [address] [place] [address] Primary Staff Physician Cardiology 06/23/18 David Galo MD [address] [place] [address] Consulting Infectious Diseases 03/08/20 Dayanna Lewis MD [address] [place], [place] 4752795 Consulting Orthopedics 03/08/20 Chip Arreola MD [address] [place], [place] 297071 Home Care Provider Family Medicine 03/08/20 Dayanna Lewis MD [address] [place] [address] Referring Orthopedics 03/09/20 Bridgett Guzman, RN [address] [place], [place] 3635731 Hat And Cap Opener Post Acute Care 03/09/20 Emelina Pal APRN.LAUNDRY MACHINE MECHANIC [address] [place], [place] [phone] Aircraft Engine Specialist Family Medicine 03/15/24 Publicity Manager Relationship Specialty Start Date End Date Chip Arreola MD [address] [place], [place] 15230691 PCP - General Family Medicine 03/21/16 Inocente Romero MD [address] 142701 Aircraft Engine Specialist Cardiology 09/09/17 Antonio Cagle MD, PhD [address] [place] [address] Primary Staff Physician Cardiology 06/23/18 David Galo MD [address] [place] [address] Consulting Infectious Diseases 03/08/20 Dayanna Lewis MD [address] [place], [place] 6339795 Consulting Orthopedics 03/08/20 Chip Arreola MD [address] [place], [place] 68985691 Home Care Provider Family Medicine 03/08/20 Dayanna Lewis MD [address] [place] [address] Referring Orthopedics 03/09/20 Bridgett Guzman, RN [address] [place], [place] 8790031 Hat And Cap Opener Post Acute Care 03/09/20 Emelina Pal, ALICIA.LAUNDRY MACHINE MECHANIC [address] [place], [place] 792051 Aircraft Engine Specialist Family Medicine 03/15/24 Belkys Mcintyre BOOK EDITOR.LAUNDRY MACHINE MECHANIC [address] [place], [place] [id number] Aircraft Engine Specialist Family Medicine 03/15/24 Publicity Manager Relationship Specialty Start Date End Date Chip Arreola MD [address] [place], [place] [id number] PCP - General Family Medicine 03/21/16 Inocente Romero MD [address] [id number] Aircraft Engine Specialist Cardiology 09/09/17 Antonio Cagle MD, PhD [address] [place], [place] 0526495 Primary Staff Physician Cardiology 06/23/18 David Galo MD [address] [place], [place] 3083495 Consulting Infectious Diseases 03/08/20 Dayanna Lewis MD [address] [place], [place] 0335695 Consulting Orthopedics 03/08/20 Chip Arreola MD [address] [place], [place] 78806691 Home Care Provider Family Medicine 03/08/20 Dayanna Lewis MD [address] [place], [place] 4994695 Referring Orthopedics 03/09/20 Bridgett Guzman, RN [address] [place] [address] Hat And Cap Opener Post Acute Care 03/09/20 Emelina Pal APRN.LAUNDRY MACHINE MECHANIC [address] [place], [place] [phone] Aircraft Engine Specialist Family Medicine 03/15/24 Belkys Mcintyre APRN.LAUNDRY MACHINE MECHANIC [address] [place], [place] [id number] Aircraft Engine Specialist Family Medicine 03/15/24 Publicity Manager Relationship Specialty Start Date End Date Chip Arreola MD [address] [place] [address] PCP - General Family Medicine 03/21/16 Inocente Romero MD [address] [address] Aircraft Engine Specialist Cardiology 09/09/17 Antonio Cagle MD, PhD [address] [place] [address] Primary Staff Physician Cardiology 06/23/18 David Galo MD [address] [place] [address] Consulting Infectious Diseases 03/08/20 Dayanna Lewis MD [address] [place] [address] Consulting Orthopedics 03/08/20 Chip Arreola MD [address] [place], [place] 02256691 Home Care Provider Family Medicine 03/08/20 Dayanna Lewis MD [address] [place] [address] Referring Orthopedics 03/09/20 Bridgett Guzman, RN [address] [place] [address] Hat And Cap Opener Post Acute Care 03/09/20 Emelina Pal, BOOK EDITOR.LAUNDRY MACHINE MECHANIC [address] [place], [place] 185031 Aircraft Engine Specialist Family Medicine 03/15/24 Belkys Mcintyre APRN.LAUNDRY MACHINE MECHANIC [address] [place], [place] 776991 Aircraft Engine Specialist Family Medicine 03/15/24 Publicity Manager Relationship Specialty Start Date End Date Chip Arreola MD [address] [place], [place] [id number] PCP - General Family Medicine 03/21/16 Inocente Romero MD [address] [id number] Aircraft Engine Specialist Cardiology 09/09/17 Antonio Cagle MD, PhD [address] [place], [place] [id number] Primary Staff Physician Cardiology 06/23/18 David Galo MD [address] [place], [place] [id number] Consulting Infectious Diseases 03/08/20 Dayanna Lewis MD [address] [place] [address] Consulting Orthopedics 03/08/20 Chip Arreola MD [address] [place], [place] 956351 Home Care Provider Family Medicine 03/08/20 Dayanna Lewis MD [address] [place], [place] 9257395 Referring Orthopedics 03/09/20 Bridgett Guzman, RN [address] [place] [address] Hat And Cap Opener Post Acute Care 03/09/20 Emelina Pal, ALICIA.LAUNDRY MACHINE MECHANIC [address] [place] [address] Aircraft Engine Specialist Family Medicine 03/15/24 Belkys Mcintyre BOOK EDITOR.LAUNDRY MACHINE MECHANIC [address] [place], [place] 262221 Aircraft Engine Specialist Family Medicine 03/15/24 Publicity Manager Relationship Specialty Start Date End Date Chip Arreola MD [address] [place], [place] [id number] PCP - General Family Medicine 03/21/16 Inocente Romero MD [address] 583941 Aircraft Engine Specialist Cardiology 09/09/17 Antonio Cagle MD, PhD [address] [place] [address] Primary Staff Physician Cardiology 06/23/18 David Galo MD [address] [place] [address] Consulting Infectious Diseases 03/08/20 Dayanna Lewis MD [address] [place] [id number] Consulting Orthopedics 03/08/20 Chip Arreola MD [address] [place], [place] [id number] Home Care Provider Family Medicine 03/08/20 Dayanna Lewis MD [address] [place] [address] Referring Orthopedics 03/09/20 Bridgett Guzman RN [address] [place], [place] 3857131 Hat And Cap Opener Post Acute Care 03/09/20 Emelina Pal APRN.LAUNDRY MACHINE MECHANIC [address] [place], [place] 636551 Aircraft Engine Specialist Family Medicine 03/15/24 Belkys Mcintyre APRN.LAUNDRY MACHINE MECHANIC [address] [place], [place] 185251 Aircraft Engine Specialist Family [facility] 03/15/24 Publicity Manager Relationship Specialty Start Date End Date Chip Arreola MD [address] [place], [place] 279721 PCP - General Family Medicine 03/21/16 Inocente Romero MD [address] 586841 Aircraft Engine Specialist Cardiology 09/09/17 Antonio Cagle MD, PhD [address] [place] [address] Primary Staff Physician Cardiology 06/23/18 David Galo MD [address] [place] [address] Consulting Infectious Diseases 03/08/20 Dayanna Lewis MD [address] [place], [place] 7727695 Consulting Orthopedics 03/08/20 Chip Arreola MD [address] [place], [place] [id number] Home Care Provider Family Medicine 03/08/20 Dayanna Lewis MD [address] [place] [address] Referring Orthopedics 03/09/20 Bridgett Guzman, RN [address] [place], [place] 1349431 Hat And Cap Opener Post Acute Care 03/09/20 Emelina Pal, BOOK EDITOR.LAUNDRY MACHINE MECHANIC [address] [place], [place] 687181 Aircraft Engine Specialist Family Medicine 03/15/24 Belkys Mcintyre BOOK EDITOR.LAUNDRY MACHINE MECHANIC [address] [place] [address] Aircraft Engine Specialist Family Medicine 03/15/24 Publicity Manager Relationship Specialty Start Date End Date Chip Arreola MD [address] [place], [place] [id number] PCP - General Family Medicine 03/21/16 Inocente Romero MD [address] [address] Aircraft Engine Specialist Cardiology 09/09/17 Antonio Cagle MD, PhD [address] [place], [place] 6110395 Primary Staff Physician Cardiology 06/23/18 David Galo MD [address] [place] [address] Consulting Infectious Diseases 03/08/20 Dayanna Lewis MD [address] [place] [address] Consulting Orthopedics 03/08/20 Chip Arreola MD [address] [place], [place] 882991 Home Care Provider Family Medicine 03/08/20 Dayanna Lewis MD [address] [facility] [place] [address] Referring Orthopedics 03/09/20 Bridgett Guzman RN [address] [place], [place] [id number] Hat And Cap Opener Post Acute Care 03/09/20 Emelina Pal, ALICIA.LAUNDRY MACHINE MECHANIC [address] [place], [place] 234791 Aircraft Engine Specialist Family Medicine 03/15/24 Belkys Mcintyre, BOOK EDITOR.LAUNDRY MACHINE MECHANIC [address] [place], [place] 688451 Aircraft Engine Specialist Family Medicine 03/15/24 Publicity Manager Relationship Specialty Start Date End Date Chip Arreola MD [address] [place], [place] 478691 PCP - General Family Medicine 03/21/16 Inocente Romero MD [address] 928471 Aircraft Engine Specialist Cardiology 09/09/17 Antonio Cagle MD, PhD [address] [place] [address] Primary Staff Physician Cardiology 06/23/18 David Galo MD [address] [place] [address] Consulting Infectious Diseases 03/08/20 Dayanna Lewis MD [address] [place], [place] 4594695 Consulting Orthopedics 03/08/20 Chip Arreola MD [address] [place], [place] 431221 Home Care Provider Family Medicine 03/08/20 Dayanna Lewis MD [address] [place] [address] Referring Orthopedics 03/09/20 Bridgett Guzman, RN [address] [place], [place] 6437131 Hat And Cap Opener Post Acute Care 03/09/20 Emelina Pal, ALICIA.LAUNDRY MACHINE MECHANIC [address] [place], [place] 110361 Aircraft Engine Specialist Family Medicine 03/15/24 Belkys Mcintyre, BOOK EDITOR.LAUNDRY MACHINE MECHANIC [address] [place], [place] 175811 Aircraft Engine Specialist Family Medicine 03/15/24 Publicity Manager Relationship Specialty Start Date End Date Chip Arreola MD [address] [place], [place] 269691 PCP - General Family Medicine 03/21/16 Inocente Romero MD [address] [place] [address]781 Aircraft Engine Specialist Cardiology 09/09/17 Antonio Cagle MD, PhD [address] [place], [place] 6295595 Primary Staff Physician Cardiology 06/23/18 David Galo MD [address] [place] [address] Consulting Infectious Diseases 03/08/20 Dayanna Lewis MD [address] [place], [place] 6750995 Consulting Orthopedics 03/08/20 Chip Arreola MD [address] [place], [place] 72807691 Home Care Provider Family Medicine 03/08/20 Dayanna Lewis MD [address] [place], [place] 7790595 Referring Orthopedics 03/09/20 Bridgett Guzman, JAMAR [address] [place], [place] 6168631 Hat And Cap Opener Post Acute Care 03/09/20 Emelina Pal APRN.LAUNDRY MACHINE MECHANIC [address] [place], [place] [phone] Aircraft Engine Specialist Family Medicine 03/15/24 Belkys Mcintyre APRN.LAUNDRY MACHINE MECHANIC [address] [place], [place] 01989691 Aircraft Engine Specialist Family Medicine 03/15/24 Publicity Manager Relationship Specialty Start Date End Date Chip Arreola MD [address] [place], [place] 15837691 PCP - General Family Medicine 03/21/16 Inocente Romero MD [address] [phone] Aircraft Engine Specialist Cardiology 09/09/17 Antonio Cagle MD, PhD [address] [place] [address] Primary Staff Physician Cardiology 06/23/18 David Galo MD [address] [place] [address] Consulting Infectious Diseases 03/08/20 Dayanna Lewis MD [address] [place] [address] Consulting Orthopedics 03/08/20 Chip Arreola MD [address] [place], [place] 644341 Home Care Provider Family Medicine 03/08/20 Dayanna Lewis MD [address] [place], [place] 4225495 Referring Orthopedics 03/09/20 Bridgett Guzman, RN [address] [place] [address] Hat And Cap Opener Post Acute Care 03/09/20 Emelina Pal APRN.LAUNDRY MACHINE MECHANIC [address] [place], [place] [phone] Aircraft Engine Specialist Family [facility] 03/15/24 Belkys Mcintyre APRN.LAUNDRY MACHINE MECHANIC [address] [place], [place] 673801 Aircraft Engine Specialist [facility] 03/15/24 Publicity Manager Relationship Specialty Start Date End Date Chip Arreola MD [address] [place], [place] [id number] PCP - General Family Medicine 03/21/16 Inocente Romero MD [address] [phone] Aircraft Engine Specialist Cardiology 09/09/17 Antonio Cagle MD, PhD [address] [place], [place] 0264395 Primary Staff Physician Cardiology 06/23/18 David Galo MD [address] [place] [address] Consulting Infectious Diseases 03/08/20 Dayanna Lewis MD [address] [place], [place] 4452795 Consulting Orthopedics 03/08/20 Chip Arreola MD [address] [place], [place] 548231 Home Care Provider Family Medicine 03/08/20 Dayanna Lewis MD [address] [place] [address] Referring Orthopedics 03/09/20 Bridgett Guzman RN [address] [place] [address] Hat And Cap Opener Post Acute Care 03/09/20 Emelina Pal APRN.LAUNDRY MACHINE MECHANIC [address] [place], [place] [phone] Aircraft Engine Specialist Family [facility] 03/15/24 Belkys Mcintyre APRN.LAUNDRY MACHINE MECHANIC [address] [place], [place] 88407691 Aircraft Engine Specialist Family [facility] 03/15/24 Publicity Manager Relationship Specialty Start Date End Date Chip Arreola MD [address] [place], [place] [id number] PCP - General Family Medicine 03/21/16 Inocente Romero MD [address] [phone] Aircraft Engine Specialist Cardiology 09/09/17 Antonio Cagle MD, PhD [address] [place] [address] Primary Staff Physician Cardiology 06/23/18 David Galo MD [address] [place] [address] Consulting Infectious Diseases 03/08/20 Dayanna Lewis MD [address] [place] [address] Consulting Orthopedics 03/08/20 Chip Arreola MD [address] [place], [place] 03678691 Home Care Provider Family Medicine 03/08/20 Dayanna Lewis MD [address] [place], [place] 2562995 Referring Orthopedics 03/09/20 Bridgett Guzman, RN [address] [place], [place] 3373731 Hat And Cap Opener Post Acute Care 03/09/20 Emelina Pal, ALICIA.LAUNDRY MACHINE MECHANIC [address] [place] [address] Aircraft Engine Specialist Family Medicine 03/15/24 Belkys Mcintyre BOOK EDITOR.LAUNDRY MACHINE MECHANIC [address] [place] [address] 155831 Aircraft Engine Specialist Family [facility] 03/15/24 Publicity Manager Relationship Specialty Start Date End Date Chip Arreola MD [address] [place] [address] PCP - General Family Medicine 03/21/16 Inocente Romero MD [address] 383271 Aircraft Engine Specialist Cardiology 09/09/17 Antonio Cagle MD, PhD [address] [place] [id number] Primary Staff Physician Cardiology 06/23/18 David Galo MD [address] [place] [address] Consulting Infectious Diseases 03/08/20 Dayanna Lewis MD [address] [place], [place] 1861995 Consulting Orthopedics 03/08/20 Chip Arreola MD [address] [place], [place] 908951 Home Care Provider Family Medicine 03/08/20 Dayanna Lewis MD [address] [place] [address] Referring Orthopedics 03/09/20 Emelina Pal APRN.LAUNDRY MACHINE MECHANIC [address] [place], [place] 754151 Aircraft Engine Specialist Family Medicine 03/15/24 Belkys Mcintyre BOOK EDITOR.LAUNDRY MACHINE MECHANIC [address] [place], [place] 504791 Aircraft Engine Specialist Family Medicine 03/15/24 Publicity Manager Relationship Specialty Start Date End Date Chip Arreola MD [address] [place], [place] 118531 PCP - General Family Medicine 03/21/16 Inocente Romero MD [address] 155951 Aircraft Engine Specialist Cardiology 09/09/17 Antonio Cagle MD, PhD [address] [place] [address] Primary Staff Physician Cardiology 06/23/18 David Galo MD [address] [place], [place] 6211495 Consulting Infectious Diseases 03/08/20 Dayanna Lewis MD [address] [place], [place] 5999595 Consulting Orthopedics 03/08/20 Chip Arreola MD [address] [place], [place] 940301 Home Care Provider Family Medicine 03/08/20 Dayanna Lewis MD [address] [place] [address] Referring Orthopedics 03/09/20 Emelina Pal APRN.LAUNDRY MACHINE MECHANIC [address] [place] [address] Aircraft Engine Specialist Family Medicine 03/15/24 Belkys Mcintyre APRN.LAUNDRY MACHINE MECHANIC [address] [place] [address] Aircraft Engine Specialist Family Medicine 03/15/24 Publicity Manager Relationship Specialty Start Date End Date Chip Arreola MD [address] [place], [place] [id number] PCP - General Family Medicine 03/21/16 Inocente Romero MD [address] [address] Aircraft Engine Specialist Cardiology 09/09/17 Antonio Cagle MD, PhD [address] [place] [address] Primary Staff Physician Cardiology 06/23/18 David Galo MD [address] [place] [address] Consulting Infectious Diseases 03/08/20 Dayanna Lewis MD [address] [place] [address] Consulting Orthopedics 03/08/20 Chip Arreola MD [address] [place], [place] 00655691 Home Care Provider Family Medicine 03/08/20 Dayanna Lewis MD [address] [place], [place] 0616895 Referring Orthopedics 03/09/20 Emelina Pal APRN.LAUNDRY MACHINE MECHANIC [address] [place], [place] [phone] Aircraft Engine Specialist Family Medicine 03/15/24 Belkys Mcintyre, BOOK EDITOR.LAUNDRY MACHINE MECHANIC [address] [place], [place] 275571 Aircraft Engine Specialist Family Medicine 03/15/24 Publicity Manager Relationship Specialty Start Date End Date Chip Arreola MD [address] [place], [place] 754761 PCP - General Family Medicine 03/21/16 Inocente Romero MD [address] 487021 Aircraft Engine Specialist Cardiology 09/09/17 Antonio Cagle MD, PhD [address] [place], [place] 1638595 Primary Staff Physician Cardiology 06/23/18 David Galo MD [address] [place] [address] Consulting Infectious Diseases 03/08/20 Dayanna Lewis MD [address] [place], [place] 7016695 Consulting Orthopedics 03/08/20 Chip Arreola MD [address] [place], [place] 742301 Home Care Provider Family Medicine 03/08/20 Dayanna Lewis MD [address] [place], [place] 4159195 Referring Orthopedics 03/09/20 Emelina Pal APRN.LAUNDRY MACHINE MECHANIC [address] [place] [address] Aircraft Engine Specialist Family Medicine 03/15/24 Belkys Mcintyre APRN.LAUNDRY MACHINE MECHANIC [address] [place], [place] 937461 Aircraft Engine Specialist Family Medicine 03/15/24 Publicity Manager Relationship Specialty Start Date End Date Chip Arreola MD [address] [place], [place] 830741 PCP - General Family Medicine 03/21/16 Inocente Romero MD [address] [id number] Aircraft Engine Specialist Cardiology 09/09/17 Antonio Cagle MD, PhD [address] [place] [address] Primary Staff Physician Cardiology 06/23/18 David Galo MD [address] [place], [place] 8548195 Consulting Infectious Diseases 03/08/20 Dayanna Lewis MD [address] [place], [place] 1894095 Consulting Orthopedics 03/08/20 Chip Arreola MD [address] [place], [place] 36499691 Home Care Provider Family Medicine 03/08/20 Dayanna Lewis MD [address] [place], [place] 7877895 Referring Orthopedics 03/09/20 Bridgett Guzman RN [address] [place], [place] 2541931 Hat And Cap Opener Post Acute Care 03/09/20 06/09/24 Emelina Pal, ALICIA.LAUNDRY MACHINE MECHANIC [address] [place], [place] 661761 Aircraft Engine Specialist Family Medicine 03/15/24 Belkys Mcintyre, BOOK EDITOR.LAUNDRY MACHINE MECHANIC [address] [place], [place] 059301 Aircraft Engine Specialist Family Medicine 03/15/24 Publicity Manager Relationship Specialty Start Date End Date Chip Arreola MD [address] [place], [place] [phone] PCP - General Family Medicine 03/21/16 [place] [address] [place] [address] 938181 Aircraft Engine Specialist Cardiology 09/09/17 Antonio Cagle MD, PhD [address] [place] [address] Primary Staff Physician Cardiology 06/23/18 David Galo MD [address] [place] [address] Consulting Infectious Diseases 03/08/20 Dayanna Lewis MD [address] [place], [place] 9380895 Consulting Orthopedics 03/08/20 Chip Arreola MD [address] [place], [place] 495741 Home Care Provider Family Medicine 03/08/20 Dayanna Lewis MD [address] [place] [address] Referring Orthopedics 03/09/20 Emelina Pal APRN.LAUNDRY MACHINE MECHANIC [address] [place] [address] Aircraft Engine Specialist Family Medicine 03/15/24 Belkys Mcintyre BOOK EDITOR.LAUNDRY MACHINE MECHANIC [address] [place] [address] Aircraft Engine Specialist Family Medicine 03/15/24 Publicity Manager Relationship Specialty Start Date End Date Chip Arreola MD [address] [place], [place] 690191 PCP - General Family Medicine 03/21/16 Inocente Romero MD [address] [place] [address] 986971 Aircraft Engine Specialist Cardiology 09/09/17 Antonio Cagle MD, PhD [address] [place] [address] Primary Staff Physician Cardiology 06/23/18 David Galo MD [address] [place] [address] Consulting Infectious Diseases 03/08/20 Dayanna Lewis MD [address] [place], [place] 4058495 Consulting Orthopedics 03/08/20 Chip Arreola MD [address] [place], [place] 25918691 Home Care Provider Family Medicine 03/08/20 Dayanna Lewis MD [address] [place], [place] 7178195 Referring Orthopedics 03/09/20 Emelina Pal APRN.LAUNDRY MACHINE MECHANIC [address] [place] [address] Aircraft Engine Specialist Family Medicine 03/15/24 Belkys Mcintyre APRN.LAUNDRY MACHINE MECHANIC [address] [place], [place] 988121 Aircraft Engine Specialist Family Medicine 03/15/24 Publicity Manager Relationship Specialty Start Date End Date Chpi Arreola MD [address] [place] [address] PCP - General Family Medicine 03/21/16 Inocente Romero MD [address] 717031 Aircraft Engine Specialist Cardiology 09/09/17 Antonio Cagle MD, PhD [address] [place], [place] 2744195 Primary Staff Physician Cardiology 06/23/18 David Galo MD [address] [place], [place] 0685495 Consulting Infectious Diseases 03/08/20 Dayanna Lewis MD [address] [place], [place] 5932295 Consulting Orthopedics 03/08/20 Chip Arreola MD [address] [place], [place] 47212691 Home Care Provider Family Medicine 03/08/20 Dayanna Lewis MD [address] [place] [address] Referring Orthopedics 03/09/20 Emelina Pal APRN.LAUNDRY MACHINE MECHANIC [address] [place], [place] [phone] Aircraft Engine Specialist Family Medicine 03/15/24 Belkys Mcintyre APRN.LAUNDRY MACHINE MECHANIC [address] [place] [address] Aircraft Engine Specialist Family Medicine 03/15/24 Publicity Manager Relationship Specialty Start Date End Date Chip Arreola MD [address] [place], [place] 190751 PCP - General Family Medicine 03/21/16 Inocente Romero MD [address] 532361 Aircraft Engine Specialist Cardiology 09/09/17 Antonio Cagle MD, PhD [address] [place] [address] Primary Staff Physician Cardiology 06/23/18 David Galo MD [address] [place] [address] Consulting Infectious Diseases 03/08/20 Dayanna Lewis MD [address] [place] [address] Consulting Orthopedics 03/08/20 Chip Arreola MD [address] [place], [place] 40881691 Home Care Provider Family Medicine 03/08/20 Dayanna Lewis MD [address] [place] [address] Referring Orthopedics 03/09/20 Emelina Pal APRN.LAUNDRY MACHINE MECHANIC [address] [place], [place] 060781 Aircraft Engine Specialist Family Medicine 03/15/24 Belkys Mcintyre APRN.LAUNDRY MACHINE MECHANIC [address] [place], [place] [phone] [facility] Family Medicine 03/15/24 Team Status: Active Member Role/Relationship Status [...] Attending Provider Active Start: October 11, 2024 Team Status: Active Member Role/Relationship Status Dates Dr. Chip Arreola MD Primary Care Provider Active Start: October 11, 2024 Dr. Inocente Romero MD Attending Provider Active S tart: October 11, 2024 Team Status: Inactive Member Role/Relationship Status Dates Dr. Chip Arreola MD Primary Care Provider Active Start: October 11, 2024 End: October 12, 2024 Dr. Lida Blum MD Admit Provider Active Star t: October 11, 2024 End: October 12, 2024 Dr. Lida Blum MD Referring Provider Active Start: October 11, 2024 End: October 12, 2024 Dr. Lida Blum MD Other Provider Active Star t: October 11, 2024 End: October 12, 2024 Dr. Ruiz Reaves DO Emergency Provider Active Start: October 11, 2024 End: October 12, 2024 Dr. Dayanna [place] DO Attending Provider Active Start: October 11, 2024 End: October 12, 2024 Team Status: Active Member Role/Relationship Status [...] Attending Provider Active Start: October 11, 2024 Team [...] MD Primary Care Provider Active Start: October 12, 2024 Dr. Lida Blum MD Admit Provider Active Star t: October 12, 2024 Dr. Lida Blum MD Referring Provider Active Start: October 12, 2024 Dr. Lida Blum MD Other Provider Active Star t: October 12, 2024 Dr. Ruiz Reaves DO Emergency Provider Active Start: October 12, 2024 Dr. Dayanna [place] DO Attending Provider Active Start: October 12, 2024 Dr. Dayanna [place] DO Other Provider Active Star t: October 12, 2024 Team Status: Active Member Role/Relationship Status Dates Dr. Chip Arreola MD Primary Care Provider Active Start: October 12, 2024 Dr. Lida Blum MD Admit Provider Active Star t: October 12, 2024 Dr. Lida Blum MD Referring Provider Active Start: October 12, 2024 Dr. Lida Blum MD Other Provider Active Star t: October 12, 2024 Dr. Ruiz Reaves DO Emergency Provider Active Start: October 12, 2024 Dr. Dayanna [place] , Other Provider Active Star t: October 12, 2024 Dr. Inocente Romero MD Attending Provider Active S tart: October 12, 2024 Publicity Manager Relationship Specialty Start Date End Date Chip Arreola MD [address] [place], [place] 486721 PCP - General Family Medicine 03/21/16 Inocente Romero MD [address] 685891 Aircraft Engine Specialist Cardiology 09/09/17 Antonio Cagle MD, PhD [address] [place], [place] 6328095 Primary Staff Physician Cardiology 06/23/18 David Galo MD [address] [place] [address] Consulting Infectious Diseases 03/08/20 Dayanna Lewis MD [address] [place], [place] 3055695 Consulting Orthopedics 03/08/20 Chip Arreola MD [address] [place], [place] 090091 Home Care Provider Family Medicine 03/08/20 Dayanna Lewis MD [address] [place] [address] Referring Orthopedics 03/09/20 Emelina Pal APRN.LAUNDRY MACHINE MECHANIC [address] [place] [address] Aircraft Engine Specialist Family Medicine 03/15/24 Belkys Mcintyre APRN.LAUNDRY MACHINE MECHANIC [address] [place], [place] [id number] Aircraft Engine Specialist Family Medicine 03/15/24 Publicity Manager Relationship Specialty Start Date End Date Chip Arreola MD [address] [place], [place] [phone] PCP - General Family Medicine 03/21/16 Inocente Romero MD [address] [id number] Aircraft Engine Specialist Cardiology 09/09/17 Antonio Cagle MD, PhD [address] [place], [place] 5833095 Primary Staff Physician Cardiology 06/23/18 David Galo MD [address] [place] [address] Consulting Infectious Diseases 03/08/20 Dayanna Lewis MD [address] [place] [address] Consulting Orthopedics 03/08/20 Chip Arreola MD [address] [place] [address] Home Care Provider Family Medicine 03/08/20 Dayanna Lewis MD [address] [place] [address] Referring Orthopedics 03/09/20 Emelina Pal APRN.LAUNDRY MACHINE MECHANIC [address] [place], [place] 055911 Aircraft Engine Specialist Family Medicine 03/15/24 Belkys Mcintyre, BOOK EDITOR.LAUNDRY MACHINE MECHANIC [address] [place], [place] 621901 Aircraft Engine Specialist Family [facility] 03/15/24 Publicity Manager Relationship Specialty Start Date End Date Chip Arreola MD [address] [place], [place] [id number] PCP - General Family Medicine 03/21/16 Inocente Romero MD [address] [id number] Aircraft Engine Specialist Cardiology 09/09/17 Antonio Cagle MD, PhD [address] [place] [address] Primary Staff Physician Cardiology 06/23/18 David Galo MD [address] [place] [address] Consulting Infectious Diseases 03/08/20 Dayanna Lewis MD [address] [place] [address] Consulting Orthopedics 03/08/20 Chip Arreola MD [address] [place], [place] 541401 Home Care Provider Family Medicine 03/08/20 Dayanna Lewis MD [address] [place], [place] [id number] Referring Orthopedics 03/09/20 Emelina Pal APRN.LAUNDRY MACHINE MECHANIC [address] [place], [place] 561571 Aircraft Engine Specialist Family [facility] 03/15/24 Belkys Mcintyre APRN.LAUNDRY MACHINE MECHANIC [address] [place], [place] [phone] Aircraft Engine Specialist Family [facility] 03/15/24 Publicity Manager Relationship Specialty Start Date End Date Chip Arreola MD [address] [place], [place] [phone] PCP - General Family Medicine 03/21/16 Inocente Romero MD [address] [phone] Aircraft Engine Specialist Cardiology 09/09/17 Antonio Cagle MD, PhD [address] [place] [address] Primary Staff Physician Cardiology 06/23/18 David aGlo MD [address] [place] [address] Consulting Infectious Diseases 03/08/20 Dayanna Lewis MD [address] [place] [address] Consulting Orthopedics 03/08/20 Chip Arreola MD [address] [place], [place] [phone] Home Care Provider Family Medicine 03/08/20 Dayanna Lewis MD [address] [place], [place] [id number] Referring Orthopedics 03/09/20 Emelina Pal APRN.LAUNDRY MACHINE MECHANIC [address] [place], [place] [phone] Aircraft Engine Specialist Family Medicine 03/15/24 Belkys Mcintyre APRN.LAUNDRY MACHINE MECHANIC [address] [place], [place] [id number] Aircraft Engine Specialist Family [facility] 03/15/24 Publicity Manager Relationship Specialty Start Date End Date Chip Arreola MD [address] [place], [place] [phone] PCP - General Family Medicine 03/21/16 Inocente Romero MD [address] [id number] Aircraft Engine Specialist Cardiology 09/09/17 Antonio Cagle MD, PhD [address] [place] [address] Primary Staff Physician Cardiology 06/23/18 David Galo MD [address] [place] [address] Consulting Infectious Diseases 03/08/20 Dayanna Lewis MD [address] [place] [address] Consulting Orthopedics 03/08/20 Chip Arreola MD [address] [place], [place] [phone] Home Care Provider Family Medicine 03/08/20 Dayanna Lewis MD [address] [place], [place] [phone] Referring Orthopedics 03/09/20 Emelina Pal APRN.LAUNDRY MACHINE MECHANIC [address] [place], [place] [phone] Aircraft Engine Specialist [facility] 03/15/24 Belkys Mcintyre APRN.LAUNDRY MACHINE MECHANIC [address] [place], [place] [phone] Aircraft Engine Specialist [facility] 03/15/24 Reason for Visit (unrecogniz ed section and content) Reason Comments PT Progress Note Specialty Diagnoses / Procedures Referred By Harper davis Referred To Contact PHYSICAL THERAPY Diagnoses R29.6 (ICD-10-CM) - Falls frequently Procedures R29.6 (ICD-10-CM) - Falls frequently Belkys Mcintyre APRN.LAUNDRY MACHINE MECHANIC [address] [place] [address] Phone: tel: fax: [facility] [address] [place] [address] Phone: tel: fax: Referral ID Status Reason Start Date Expiration Date V isits Requested Visits Authorized [id number] Authorized 04/07/2024 04/06/2025 99 99 Reason Comments Physical Therapy Specialty Diagnoses / Procedures Referred By Harper davis Referred To Contact PHYSICAL THERAPY Diagnoses R29.6 (ICD-10-CM) - Falls frequently Procedures R29.6 (ICD-10-CM) - Falls frequently Belkys Mcintyre APRN.LAUNDRY MACHINE MECHANIC [address] [place] [address] [facility] [address] [place] [address] Reason Comments Wrist/forearm Injury R wrist pain and br uising after slipping on stairs x1 week Reason Comments Established Patient Fracture Reason Comments REF: Craft xray 08-22-2021 New Fracture Reason Onset Date Comments Refill Request 10/16/2021 Reason Comments 6 Month Exam Reason Comments Results Reason Comments Follow Up Discuss labs from Ju [facility] Reason Comments Established Patient 15 wks 6 days post f x right radial styloid Fracture 15 wks 6 days post f x right radial styloid Specialty Diagnoses / Procedures Referred By Contac t Referred To Contact Orthopedics Diagnoses Other closed intra-articular fracture of distal end of right radius, initial encounter Procedures CONSULT TO ORTHOPAEDICS OFFICE/OUTPATIENT [facility] 60-74 MINUTES Jaleel Craft MD [address] [place] [phone] Referral ID Status Reason Start Date Expiration Date V isits Requested Visits Authorized [id number] Closed PCP Requested Referral 08/22/2021 08/22/2022 1 [...] COMPLETE MINIMUM 2 VIEWS Dominga Reese, PA-C [address] [place] [address] Xr Imaging Referral ID Status Reason Start Date Expiration Date V isits Requested Visits Authorized [id number] Closed Auto-Generate d Referral 05/14/2022 06/13/2023 1 [...] EVALUATION HIGH COMPLEX 45 MINS Belkys Mcintyre APRN.LAUNDRY MACHINE MECHANIC [address] [place] [address] [facility] [place] [address] [place] [address] Referral ID Status Reason Start Date Expiration Date Visits Requested Visits Authorized [id number] Authorized Auto-Generat ed Referral 04/07/2023 04/06/2024 99 [...] Results 10/05/2024 Reason Comments Established Patient Injections Reason Comments Hospital F/U Reason Comments Follow Up Reason Comments Consult New Patient Specialty Diagnoses / Procedures Referred By Contac t Referred To Contact Endocrinology Diagnoses Parathyroid abnormality (HCC) Procedures OFFICE/OUTPATIENT NEW HIGH MDM 60 MINUTES Belkys Mcintyre APRN.LAUNDRY MACHINE MECHANIC [address] [place] [address] Phone: tel: fax: Referral ID Status Reason Start Date Expiration Date V isits Requested Visits Authorized [id number] Closed PCP Requested Referral 10/12/2024 10/05/2025 1 1 Goals (unrecognized section and content) Goals may [...] BE BASED ON THE PRIMARY CLINICAL RECORDS. [facility] provides no warranty or guarantee of the accuracy or completeness of information in this document.
[2025-03-31 08:59] VITALS: BP 138/97; PULSE 99; RESP 16; RESP 18; TEMP 36.6; O2SAT 99
== END 2025-03-31 09:01 | disposition home or self-care (01) ==
PROVIDERS: Emergency Provider Student in an Organized Health Care Education/Training Program; PCP Family Medicine; Visit Provider Student in an Organized Health Care Education/Training Program
DX: R04.0 Epistaxis (principal); I11.0 Hypertensive heart disease with heart failure; I50.33 Acute on chronic diastolic (congestive) heart failure; I48.0 Paroxysmal atrial fibrillation; E11.9 Type 2 diabetes mellitus without complications; S00.83XA Contusion of other part of head, initial encounter; Z79.01 Long term (current) use of anticoagulants
CPT/HCPCS: 30901; 70450; 70486; 72125; 99283